=== PATIENT | female | born 1940 | race Caucasian/White ===

== ENCOUNTER → 2017-02-07 | Outpatient (CLI) | payer OTHER, MEDICARE ==
[~2017-02-07] MED LIST: ATOR10TA88 PO; CHOL100027 PO; CYAN500T PO; EFFSR75 PO; HYDRCRE28 EX; KETO0.024 OP; MEDR2.5T5 PO; METF500T5 PO; VENL150C PO; WARF10TA PO; WARF4TAB44 PO
--- NOTE | 2017-02-07 16:07 | MAMMOGRAPHY REPORT ---
BILATERAL DIGITAL SCREENING MAMMOGRAM WITH CAD: 02/07/2017 CLINICAL HISTORY: Routine screening. Patient has no complaints. TECHNIQUE: Bilateral CC and MLO views were obtained. A right MLO view was performed to include more tissue near the inframammary fold and a mole marker was placed overlying a known sebaceous cyst poi nted out by the patient. Current study was also evaluated with a Computer Aided Detection (CAD) sys tem. COMPARISON: Comparison is made to exams dated: 02/02/2016 mammogram, 01/10/2014 mammogram, 01/14/2015 m ammogram, 01/09/2013 mammogram, 01/13/2012 mammogram, and 12/31/2010 mammogram - [facility] enter. BREAST COMPOSITION: There are scattered areas of fibroglandular density in both breasts. FINDINGS: There are diffuse bilateral rodlike secretory calcifications and mild vascular calcificati ons in the breasts. No new suspicious mass, architectural distortion or cluster of microcalcificati ons is seen. A dense mass with circumscribed borders is partially visualized in the inferior far po sterior right breast on the repeat MLO view, which the patient pointed out as a sebaceous cyst. Thi s was previously documented with ultrasound and a punctum was identified extending to the skin surfa ce in January 2012, confirming dermal etiology. IMPRESSION: ACR BI-RADS CATEGORY 1: NEGATIVE There is no mammographic evidence of malignancy. A 1 year screening mammogram is recommended. The p atient will receive written notification of the results. Approximately 10% of breast cancers are not detected with mammography. A negative mammographic repor t should not delay biopsy if a clinically suggestive mass is present. Julia Marinelli M.D. ay/:02/07/2017 14:27:25 Head Still Operator: Shameka WEEKS(R)([place]), [facility] letter sent: Normal 1/2 BI-RADS Code: ACR BI-RADS Category 1: Negative
== END | disposition home or self-care (01) ==
LOC: C.MAMM 13:29
PROVIDERS: ATTEND Obstetrics & Gynecology
DX: Z12.31 Encounter for screening mammogram for malignant neoplasm of breast (principal)

== ENCOUNTER → 2017-02-21 | Outpatient (CLI) | payer OTHER, MEDICARE ==
[~2017-02-21] MED LIST changes: +ATOR10TA82 PO; -ATOR10TA88 PO; +DOXY-300 PO; +GABA-112 PO; +LSX20 PO; +OMEG10007 PO; +VENL75CA73 PO
[2017-02-21 17:33] LABS: BASO % 0.5 %; BASO ABS # 0.04 K/uL (0-0.2); COMPLETE YES; EOS % 1.9 %; HEMATOCRIT 41.5 % (37-47); IG% 0.1 %; LYMPH % 29.8 %; LYMPH ABS # 2.41 K/uL (1.2-3.4); MEAN CELL VOLUME 96.1 fL (80-100); MEAN CORPUSCULAR HEMOGLOBIN 31.7 pg (25-34); MEAN PLATELET VOLUME 11.3 fL (7.4-10.4); MONO % 6.3 %; NEUT % 61.4 %; PLATELET COUNT 253 K/uL (130-400); RED BLOOD COUNT 4.32 M/uL (4.2-5.4); WHITE BLOOD COUNT 8.09 K/uL (4.8-10.8)
[2017-02-21 18:15] LABS: ALT/SGPT 25 U/L (12-78); BLOOD UREA NITROGEN 13 mg/dl (7-18); BUN/CREATININE RATIO 15.2 (10-20); CALCIUM 9.1 mg/dl (8.5-10.1); CARBON DIOXIDE 28 mmol/L (21-32); CHLORIDE 108 mmol/L (98-107); CREATININE 0.88 mg/dl (0.60-1.20); GLUCOSE 114 mg/dl (70-99); POTASSIUM 4.6 mmol/L (3.5-5.1); SODIUM 143 mmol/L (136-145)
[2017-02-21 18:20] LABS: ALB/GLOB RATIO 0.9 (0.9-2); ALKALINE PHOSPHATASE 67 U/L (45-117); AST/SGOT 24 U/L (15-37); CHOLESTEROL 135 mg/dl (0-200); CHOLESTEROL/HDL RATIO 2.9; HDL CHOLESTEROL 47 mg/dl; LDL CHOLESTEROL CALCULATED 56 mg/dl; TRIGLYCERIDES 159 mg/dl (0-150); VERY LOW DENSITY LIPOPROT CALC 32 mg/dl
[2017-02-22 06:25] LABS: ESTIMATED AVERAGE GLUCOSE 148 mg/dl; HA1C FLAG Normal (Normal)
--- NOTE | 2017-02-28 11:58 | CODING QUERY MEDICAL NECESSITY ---
CQSUPPORTING DIAGNOSIS NEEDED A supporting diagnosis is required for the test/procedure performed on this patient in order for us to be reimbursed by the patient's insurance. Please provide a supporting diagnosis for the following test/procedure listed below next to the test name along with your signature. *If there is no additional diagnosis for this patient that would support the following test/procedure please document that below next to the test/procedure. Test(s)/Procedure(s) that require a supporting diagnosis: DOS 02/21/17 GLYCATED HEMOGLOBIN TEST Provider Signature: Date: Thank you Amisha Conklin Health Information Management Once completed, please kindly fax back to [phone] For questions please call [phone]
== END | disposition home or self-care (01) ==
LOC: C.LABBFT 11:13
PROVIDERS: ATTEND Internal Medicine
DX: Z51.81 Encounter for therapeutic drug level monitoring (principal); Z79.01 Long term (current) use of anticoagulants; E11.9 Type 2 diabetes mellitus without complications

== ENCOUNTER → 2017-08-25 | Outpatient (CLI) | payer OTHER, MEDICARE ==
[~2017-08-25] MED LIST changes: -ATOR10TA82 PO; +ATOR10TA88 PO; -DOXY-300 PO; -GABA-112 PO; -HYDRCRE28 EX; -LSX20 PO; -MEDR2.5T5 PO; -OMEG10007 PO; -VENL75CA73 PO
[2017-08-26 06:35] LABS: ESTIMATED AVERAGE GLUCOSE 134 mg/dl; HA1C FLAG Normal (Normal)
== END | disposition home or self-care (01) ==
LOC: C.LABBC 12:19
PROVIDERS: ATTEND Internal Medicine
DX: E78.5 Hyperlipidemia, unspecified (principal); E11.9 Type 2 diabetes mellitus without complications

== ENCOUNTER 2017-09-28 17:43 | Inpatient (IN) | payer OTHER, MEDICARE ==
[2017-09-28] VITALS (12 sets, daily range): BP systolic 108–165; BP diastolic 63–95; PULSE 68–71; TEMP 36.6; O2SAT 92–96; Ht 154.9 cm; Wt 123.6 kg
[~2017-09-28] VITALS: Ht 154.9 cm; Wt 123.6 kg
[~2017-09-28 17:43] MED LIST changes: +ATOR10TA82 PO; -ATOR10TA88 PO; +GABA-112 PO; +OMEG10007 PO
--- NOTE | 2017-09-28 18:02 | EMERGENCY ROOM VISIT NOTE ---
History Report prepared by Marilyn: Lanny Jones Under the Supervision of: Dr. Bret Moreno M.D. First contact with patient: 17:45 Chief Complaint: IRREGULAR HEARTBEAT Stated Complaint: CARDIAC, BRADYCARDIA History of Present Illness The patient is a 77 year old female who presents to the Emergency Room with complaints of an episode of an irregular heart beat beginning just prior to arrival. The patient reports not feeling well with a cough, feeling short of breath, and a low grade fever, and fatigue beginning 3 weeks ago. The patient was put on a Z-pac [address] Byers for bronchitis. Upon finishing her antibiotics, the patient still did not feel well so she went in to see her PCP again today. Today, the patient was at her PCP where she had her INR levels checked and was referred to the ED after obtaining an "abnormal" EKG. Presently , the patient feels tired, weak and short of breath. The patient does not follow up with a supervisor self service store and is on Coumadin, medroxyprogesterone, metformin. Source of History: patient Onset: just prior to arrival Position: other Quality: other (irregular heart beat) Timing: other (episode) Associated Symptoms: + fevers, + cough, + SOB, + fatigue, + weakness Review of Systems See HPI for pertinent positives & negatives. A total of 10 systems reviewed and were otherwise negative. Past Medical & Surgical Surgical Problems: (1) History of appendectomy (2) History of cholecystectomy Family History FH: cancer FHx: diabetes mellitus FHx: gallbladder disease FHx: heart disease FHx: hypertension FHx: kidney disease Kidney stones Social History Smoking Status: Never Smoker Alcohol Use: none Drug Use: none Marital Status: Housing Status: lives with family Current/Historical Medications Scheduled Atorvastatin (Lipitor), 10 MG PO QPM Gabapentin (Neurontin), 100 MG PO BID Metformin Hcl Er (Glucophage Er), 1,000 MG PO QPM Venlafaxine Hcl (Effexor Xr), 150 MG PO QPM Venlafaxine Hcl (Venlafaxine Extended Rel), 75 MG PO QPM Warfarin Sodium (Coumadin), 10 MG PO 5XWK Warfarin Sodium (Warfarin Sodium), 11 MG PO 2XWK Scheduled PRN Ketotifen Fumarate (Ophth) (Alaway), 1 DROP OP Q12 PRN for ALLERGIC REACTION Allergies Coded Allergies: No Known Allergies (Verified , 09/28/17) Physical Exam Vital Signs Date Time Temp Pulse Resp B/P (MAP) Pulse Ox O2 Delivery O2 Flow Rate FiO2 09/28/17 18:36 39 20 133/51 97 Nasal Cannula 2.0 09/28/17 18:21 32 20 153/49 96 Nasal Cannula 2.0 09/28/17 18:12 Nasal Cannula 2.0 09/28/17 18:10 98 Nasal Cannula 2.0 09/28/17 18:10 99 Nasal Cannula 2.0 09/28/17 18:08 45 09/28/17 17:58 37.2 30 20 136/53 98 Nasal Cannula 2.0 Physical Exam GENERAL: Patient is a healthy-appearing well-nourished female HEAD: Normocephalic atraumatic EYES: Ocular movements intact pupils equal and react to light OROPHARYNX mucous membranes are moist no exudates present no erythema or edema present NECK: Supple no nuchal rigidity CHEST: Good equal expansion LUNGS: Clear and equal to auscultation CARDIAC: Normal S1 and S2 ABDOMEN: Soft nontender no guarding BACK: No CVA tenderness EXTREMITIES: No pain upon palpation normal muscle strength in all groups no clubbing cyanosis or edema NEURO: Patient is following commands and answering questions appropriately. Alert and oriented x3 Cranial Nerves 2-12 grossly intact Medical Decision & Procedures ER Provider Diagnostic Interpretation: Radiology results as stated below per my review and radiologist interpretation: CHEST ONE VIEW PORTABLE FINDINGS: Image quality is degraded by patient body habitus. Atherosclerosis of aortic arch. Cardiac silhouette remains mildly enlarged. Lungs and pleural spaces clear. Degenerative changes of the thoracic spine. Upper abdomen normal. IMPRESSION: 1. Cardiomegaly. Otherwise no acute cardiopulmonary disease. Electronically signed by: Kulwinder Feng M.D. Laboratory Results Test 09/28/17 17:40 Immature Granulocyte % (Auto) 0.2 % White Blood Count 12.17 K/uL (4.8-10.8) Red Blood Count 4.19 M/uL (4.2-5.4) Hemoglobin 13.4 g/dL (12.0-16.0) Hematocrit 41.3 % (37-47) Mean Corpuscular Volume 98.6 fL (80-100) Mean Corpuscular Hemoglobin 32.0 pg (25-34) Mean Corpuscular Hemoglobin Concent 32.4 g/dl (32-36) Platelet Count 193 K/uL (130-400) Mean Platelet Volume 12.8 fL (7.4-10.4) Neutrophils (%) (Auto) 67.0 % Lymphocytes (%) (Auto) 22.8 % Monocytes (%) (Auto) 8.1 % Eosinophils (%) (Auto) 1.6 % Basophils (%) (Auto) 0.3 % Neutrophils # (Auto) 8.16 K/uL (1.4-6.5) Lymphocytes # (Auto) 2.77 K/uL (1.2-3.4) Monocytes # (Auto) 0.98 K/uL (0.11-0.59) Eosinophils # (Auto) 0.19 K/uL (0-0.5) Basophils # (Auto) 0.04 K/uL (0-0.2) Immature Granulocyte # (Auto) 0.03 K/uL (0.00-0.02) Activated Partial Thromboplast Time 34.2 SECONDS (21.0-31.0) Partial Thromboplastin Ratio 1.3 Total Bilirubin 0.5 mg/dl (0.2-1) Direct Bilirubin 0.1 mg/dl (0-0.2) Aspartate Amino Transf (AST/SGOT) 18 U/L (15-37) Alanine Aminotransferase (ALT/SGPT) 26 U/L (12-78) Alkaline Phosphatase 76 U/L (45-117) Total Creatine Kinase 98 U/L (26-192) Creatine Kinase MB 1.3 ng/ml (0.5-3.6) Creatine Kinase MB Ratio 1.3 (0-3.0) Troponin I < 0.015 ng/ml (0-0.045) Pro-B-Type Natriuretic Peptide 2941 pg/ml (0-1800) Total Protein 7.8 gm/dl (6.4-8.2) Albumin 3.4 gm/dl (3.4-5.0) Lipase 197 U/L (73-393) Lyme Disease IgG Antibody NEG (NEG) Labs reviewed by ED physician. Medications Administered Medications (Trade) Dose Ordered Sig/Daryl Route Start Time Stop Time Status Last Admin Dose Admin Midazolam HCl (Versed Inj) 2 mg STK-MED ONCE .ROUTE 09/28/17 18:23 09/28/17 18:24 DC 09/28/17 18:23 1 MG Fentanyl Citrate (Fentanyl Inj) 100 mcg STK-MED ONCE .ROUTE 09/28/17 18:23 09/28/17 18:24 DC 09/28/17 18:23 50 MCG ECG Indication: bradycardia Rate (beats per minute): 33 Rhythm: other (3rd degree block) Findings: no acute ischemic change ED Course 1744: Past medical records reviewed. The patient was evaluated in room A1. A complete history and physical examination was performed. 1826: I discussed the patient's case with Dr. Dhillon, he has agreed to evaluate the patient for further management and care. 1829: The patient is headed to the Assistant Terminal Manager. 1902: I discussed the patient's case with Dr. Galvez, he has agreed to evaluate the patient for further management and care. Medical Decision Differential diagnosis: Etiologies such as cardiac ischemia, aortic dissection, pulmonary embolism, pneumonia, pneumothorax, musculoskeletal, infections, pericarditis, myocarditis , esophageal rupture, gastrointestinal, as well as others were entertained. This is a 77-year-old female who presents emergency department bradycardic. The patient reports she has been feeling short of breath and generally weak for the past 3 weeks. She was recently placed on a Z-Geo and finished this yesterday. Upon arrival to emergency department the patient is in a complete heart block. I did discuss the case with both the vp & general counsel as well as the supervisor self service store on-call. The patient was taken to the Assistant Terminal Manager. Blood Pressure Screening Patient's blood pressure: Elevated blood pressure Blood pressure disposition: Referred to PCP (evaluated by hospitalist) Consults Time Called: 1826 Consulting Physician: Dr. Dhillon Returned Call: 1826 I discussed the patient's case with Dr. Dhillon, he has agreed to evaluate the patient for further management and care. Additional Consults: Time Called: 1902 Consulted Physician: Dr. Galvez Returned Call: 1902 Additional Comments: I discussed the patient's case with Dr. Galvez, he has agreed to evaluate the patient for further management and care. Impression Primary Impression: Complete heart block Critical Care I have personally spent greater than 35 minutes of critical care time in the direct management of this patient. This includes bedside care, interpretation of diagnostic studies, and testing, discussion with consultants, patient, and family members, and other required patient management activities. This 35 minutes is in excess of all separately billable procedures. Scribe Attestation The scribe's documentation has been prepared under my direction and personally reviewed by me in its entirety. I confirm that the note above accurately reflects all work, treatment, procedures, and medical decision making performed by me. Departure Information Dispostion Being Evaluated By Hospitalist Referrals Kulwinder Byers M.D. (PCP) Patient Instructions [facility]
[2017-09-28 18:19] LABS: BASO % 0.3 %; BASO ABS # 0.04 K/uL (0-0.2); COMPLETE YES; EOS % 1.6 %; HEMATOCRIT 41.3 % (37-47); IG% 0.2 %; LYMPH % 22.8 %; LYMPH ABS # 2.77 K/uL (1.2-3.4); MEAN CELL VOLUME 98.6 fL (80-100); MEAN CORPUSCULAR HGB CONC 32.4 g/dl (32-36); MEAN PLATELET VOLUME 12.8 fL (7.4-10.4); MONO % 8.1 %; PLATELET COUNT 193 K/uL (130-400); RED BLOOD COUNT 4.19 M/uL (4.2-5.4); WHITE BLOOD COUNT 12.17 K/uL (4.8-10.8)
[2017-09-28] MEDS ORDERED: FENTANYL CITRATE INJ 50 MCG/1 ML 2 ML VIAL ONE (18:23)
[2017-09-28] MEDS ORDERED: MIDAZOLAM HCL 1 MG/ML 2ML VIAL ONE (18:23)
[2017-09-28 18:24] LABS: INR 2.2 (0.9-1.1); PARTIAL THROMBOPLASTIN RATIO 1.3; PROTHROMBIN TIME (PATIENT) 24.1 SECONDS (9.0-12.0)
[2017-09-28] MEDS ORDERED: VENL75CA73 PO ×2 (18:25)
[2017-09-28 18:34] LABS: ALT/SGPT 26 U/L (12-78); BLOOD UREA NITROGEN 23 mg/dl (7-18); BUN/CREATININE RATIO 20.6 (10-20); CALCIUM 9.4 mg/dl (8.5-10.1); CARBON DIOXIDE 26 mmol/L (21-32); CHLORIDE 105 mmol/L (98-107); GLUCOSE 108 mg/dl (70-99); POTASSIUM 4.4 mmol/L (3.5-5.1); SODIUM 140 mmol/L (136-145)
--- NOTE | 2017-09-28 18:37 | DIAGNOSTIC IMAGING REPORT ---
CHEST ONE VIEW PORTABLE CLINICAL HISTORY: 77 years-old Female presenting with CHEST PAIN. TECHNIQUE: Portable upright AP view of the chest was obtained. COMPARISON: 12/29/2015. FINDINGS: Image quality is degraded by patient body habitus. Atherosclerosis of aortic arch. Cardiac silhouette remains mildly enlarged. Lungs and pleural spaces clear. Degenerative changes of the thoracic spine. Upper abdomen normal. IMPRESSION: 1. Cardiomegaly. Otherwise no acute cardiopulmonary disease. Electronically signed by: Kulwinder Feng M.D. 09/28/2017 6:36 PM Dictated Date/Time: 09/28/2017 6:35 PM
[2017-09-28 18:39] LABS: ALKALINE PHOSPHATASE 76 U/L (45-117); AST/SGOT 18 U/L (15-37)
[2017-09-28 18:50] LABS: CKMB/CK RATIO 1.3 (0-3.0)
[2017-09-28] MEDS ORDERED: MoRPHine SULFATE 2 MG/ML CARP IV PRN (19:00)
[2017-09-28] MEDS ORDERED: KETOTIFEN FUMARATE (ZADITOR) 0.025% 5 ML BTL OP PRN (19:00)
[2017-09-28] MEDS ORDERED: WARFARIN SOD 1 MG TAB PO SCH (19:00)
[2017-09-28] MEDS ORDERED: LORAZEPAM 2 MG/ML 1 ML VIAL IV PRN (19:00)
[2017-09-28] MEDS ORDERED: ACETAMINOPHEN 325 MG TAB PO PRN (19:00)
[2017-09-28] MEDS ORDERED: NITROGLYCERIN 0.4 MG SL PER TAB CHARGE SL PRN (19:00)
[2017-09-28] MEDS ORDERED: LORAZEPAM 0.5 MG TAB PO PRN (19:00)
--- NOTE | 2017-09-28 19:28 | Procedure Note ---
Pre-Mod Sedation Assessment General Date of Moderate Sedation: Sep 28, 2017. Vital Signs: Vital Signs Past 12 Hours Date Time Temp Pulse Resp B/P (MAP) Pulse Ox O2 Delivery O2 Flow Rate FiO2 09/28/17 19:02 34 20 133/68 96 09/28/17 18:36 39 20 133/51 97 Nasal Cannula 2.0 09/28/17 18:21 32 20 153/49 96 Nasal Cannula 2.0 09/28/17 18:12 Nasal Cannula 2.0 09/28/17 18:10 98 Nasal Cannula 2.0 09/28/17 18:10 99 Nasal Cannula 2.0 09/28/17 18:08 45 09/28/17 17:58 37.2 30 20 136/53 98 Nasal Cannula 2.0 Review Cardiovascular: regular rate, rhythm, no edema Abdomen: normal bowel sounds, non tender Lungs: chest non-tender, lungs clear Pre-Sedation Airway Assessment Oral Cavity: WNL Able to Visualize Vocal Cords: No Short Thick Neck: No Hx of Sleep Apnea: No Smoking Status: Never Smoker Mallampati Classification: Class III ASA Classification: Class III Procedure Planning Contraindications-for Mod Sed: None Yes Notes The planned sedation has been discussed with the patient and consent obtained. I have identified the patient, determined the appropriateness of sedation and have assessed the patient immediately prior to the procedure. All medicine(s) and interventions are by my order.
--- NOTE | 2017-09-28 19:28 | Procedure Note ---
Post-Mod Sedation Assessment General Date of Moderate Sedation Sep 28, 2017. Vital Signs: Vital Signs Past 12 Hours Date Time Temp Pulse Resp B/P (MAP) Pulse Ox O2 Delivery O2 Flow Rate FiO2 09/28/17 19:02 34 20 133/68 96 09/28/17 18:36 39 20 133/51 97 Nasal Cannula 2.0 09/28/17 18:21 32 20 153/49 96 Nasal Cannula 2.0 09/28/17 18:12 Nasal Cannula 2.0 09/28/17 18:10 98 Nasal Cannula 2.0 09/28/17 18:10 99 Nasal Cannula 2.0 09/28/17 18:08 45 09/28/17 17:58 37.2 30 20 136/53 98 Nasal Cannula 2.0 Review - Discharge Criteria Vital Signs Stable: Yes Alert/Oriented/Conversant: Yes Returned to Baseline Mental St: Yes Nausea Absent/Minimal: Yes Pain/Discomfort/Absent/Minimal: Yes Normal/Baseline Respirations: Yes Active Bleeding?: N/A Pt Received D/C Instructions: N/A Prescriptions Given: None Specific Proced. D/C Criteria Distal Pulses Present (Cardiac: N/A Groin site assessed-Card Cath: N/A Voided Prior To Discharge: N/A Discharged Patients Adult Escort/Transportation: Yes
--- NOTE | 2017-09-28 19:34 | History and Physical ---
History & Physical Date & Time of Service: Sep 28, 2017 at 19:28 Chief Complaint: Cardiac, Bradycardia Primary Care Physician: Kulwinder Byers M.D. History of Present Illness Called in this patient has she's under to the cath lab radiological technologist for temporary cardiac pacemaker. The patient found to be in complete heart block with a heart rate of 30. Reportedly the patient in [address] Byers was given a Z-Geo for symptoms of an upper respiratory infection and fatigue upon repeat evaluation an EKG was performed in the office which showed a abnormality of heart block she sent to the emergency department. The patient does not describe any chest pain however she is does have exertional dyspnea I spoke with her rug setter [place] personally, Dr. Pena, and he states that earlier this year she did pass a stress test. The patient is on chronic anticoagulation for pulmonary embolism and currently her INR is 2.2. Otherwise the patient just feels fatigued and dyspneic she has not had any orthopnea or paroxysmal nocturnal dyspnea but is limited with her exercise due to shortness of breath which may be in part due to her morbid obesity with a BMI of 54.1. Past Medical/Surgical History Surgical Problems: (1) History of appendectomy Status: Resolved (2) History of cholecystectomy Status: Resolved Family History FH: cancer FHx: diabetes mellitus FHx: gallbladder disease FHx: heart disease FHx: hypertension FHx: kidney disease Kidney stones Social History Smoking Status: Never Smoker Drug Use: none Marital Status: Housing status: lives with family Immunizations History of Influenza Vaccine: N/A History of Tetanus Vaccine?: Yes History of Pneumococcal: Yes History of Hepatitis B Vaccine: No Multi-Drug Resistant Organisms History of MDRO: No Allergies Coded Allergies: No Known Allergies (Verified , 09/28/17) Home Medications Scheduled Atorvastatin (Lipitor), 10 MG PO QPM Gabapentin (Neurontin), 100 MG PO BID Metformin Hcl Er (Glucophage Er), 1,000 MG PO QPM Venlafaxine Hcl (Effexor Xr), 150 MG PO QPM Venlafaxine Hcl (Venlafaxine Extended Rel), 75 MG PO QPM Warfarin Sodium (Coumadin), 10 MG PO 5XWK Warfarin Sodium (Warfarin Sodium), 11 MG PO 2XWK Scheduled PRN Ketotifen Fumarate (Ophth) (Alaway), 1 DROP OP Q12 PRN for ALLERGIC REACTION Review of Systems ROS: Morbidly obese No double vision blurry vision No problems with speech or swallowing Subjective palpitations, but no chest pain or pressure No Wheezing or but marked dyspnea on exertion where she can only walk With upper driveway from her mailbox of stopping the catch her breath No abdominal pain nausea vomiting diarrhea changes in appetite or weight No burning urine urine frequency or changes in color No focal joint pain or muscle pain she however states she's had some swelling more in her left foot and right No skin rashes or oral lesions No unusual bruising or bleeding No focused back pain or numbness or loss of strength No changes in memory or confusion Physical Exam Vital Signs Date Time Temp Pulse Resp B/P (MAP) Pulse Ox O2 Delivery O2 Flow Rate FiO2 09/28/17 19:02 34 20 133/68 96 09/28/17 18:36 39 20 133/51 97 Nasal Cannula 2.0 09/28/17 18:21 32 20 153/49 96 Nasal Cannula 2.0 09/28/17 18:12 Nasal Cannula 2.0 09/28/17 18:10 98 Nasal Cannula 2.0 09/28/17 18:10 99 Nasal Cannula 2.0 09/28/17 18:08 45 09/28/17 17:58 37.2 30 20 136/53 98 Nasal Cannula 2.0 General Appearance: + mild distress, + obese Head: normocephalic, atraumatic Eyes: PERRL, EOMI Neck: supple, no JVD Respiratory/Chest: no respiratory distress, + decreased breath sounds (bases) Cardiovascular: + bradycardia, + systolic murmur Abdomen/GI: normal bowel sounds, non tender, soft Extremities/Musculoskelatal: normal capillary refill, + pedal edema, + swelling Neurologic/Psych: alert, oriented x 3 Diagnostics Laboratory Results Results Past 24 Hours Test 09/28/17 17:40 Range/Units White Blood Count 12.17 4.8-10.8 K/uL Red Blood Count 4.19 4.2-5.4 M/uL Hemoglobin 13.4 12.0-16.0 g/dL Hematocrit 41.3 37-47 % Mean Corpuscular Volume 98.6 80-100 fL Mean Corpuscular Hemoglobin 32.0 25-34 pg Mean Corpuscular Hemoglobin Concent 32.4 32-36 g/dl Platelet Count 193 130-400 K/uL Mean Platelet Volume 12.8 7.4-10.4 fL Neutrophils (%) (Auto) 67.0 % Lymphocytes (%) (Auto) 22.8 % Monocytes (%) (Auto) 8.1 % Eosinophils (%) (Auto) 1.6 % Basophils (%) (Auto) 0.3 % Neutrophils # (Auto) 8.16 1.4-6.5 K/uL Lymphocytes # (Auto) 2.77 1.2-3.4 K/uL Monocytes # (Auto) 0.98 0.11-0.59 K/uL Eosinophils # (Auto) 0.19 0-0.5 K/uL Basophils # (Auto) 0.04 0-0.2 K/uL RDW Standard Deviation 50.1 36.4-46.3 fL RDW Coefficient of Variation 14.0 11.5-14.5 % Immature Granulocyte % (Auto) 0.2 % Immature Granulocyte # (Auto) 0.03 0.00-0.02 K/uL Prothrombin Time 24.1 9.0-12.0 SECONDS Prothromb Time International Ratio 2.2 0.9-1.1 Activated Partial Thromboplast Time 34.2 21.0-31.0 SECONDS Partial Thromboplastin Ratio 1.3 Sodium Level 140 136-145 mmol/L Potassium Level 4.4 3.5-5.1 mmol/L Chloride Level 105 98-107 mmol/L Carbon Dioxide Level 26 21-32 mmol/L Anion Gap 9.0 3-11 mmol/L Blood Urea Nitrogen 23 7-18 mg/dl Creatinine 1.10 0.60-1.20 mg/dl Est Creatinine Clear Calc Drug Dose 54.5 ml/min Estimated GFR () 56.1 Estimated GFR (Non- 48.4 BUN/Creatinine Ratio 20.6 10-20 Random Glucose 108 70-99 mg/dl Calcium Level 9.4 8.5-10.1 mg/dl Total Bilirubin 0.5 0.2-1 mg/dl Direct Bilirubin 0.1 0-0.2 mg/dl Aspartate Amino Transf (AST/SGOT) 18 15-37 U/L Alanine Aminotransferase (ALT/SGPT) 26 12-78 U/L Alkaline Phosphatase 76 45-117 U/L Total Creatine Kinase 98 26-192 U/L Creatine Kinase MB 1.3 0.5-3.6 ng/ml Creatine Kinase MB Ratio 1.3 0-3.0 Troponin I < 0.015 0-0.045 ng/ml Pro-B-Type Natriuretic Peptide 2941 0-1800 pg/ml Total Protein 7.8 6.4-8.2 gm/dl Albumin 3.4 3.4-5.0 gm/dl Lipase 197 73-393 U/L other (mild vascular congestion) other (complete heart block) Impression Assessment and Plan 77-year-old female here with complete heart block fatigue x-ray changes of mild vascular congestion Patient taken urgently to cardiac catheterization lab for temporary pacemaker, there appears to be no medications that are directly attributed to the bradycardia or heart block, there is pending Lyme disease Ehrlichiae testing Thrombophilia patient's INR is 2.2 Coumadin will be held in consideration for permanent pacemaker placement Metformin will be held insulin sliding scale be used especially if there is any need for diabetes and imaging testing testing DVT prevention will be Coumadin till its reversed and then may consider having a bridging agent because of her thrombophilia as per discussion with her personal rug setter [place] Dr. Pena VTE Prophylaxis VTE Risk Assessment Done? Y/N: Yes Risk Level: Moderate Given or contraindicated: Warfarin (Coumadin)
--- NOTE | 2017-09-28 19:35 | Procedure Note ---
Procedure Note Procedure Date Sep 28, 2017. Procedure Description Procedure Name: Transvenous temporary pacemaker insertion. Procedure time out: patient ID confirmed, correct procedure Consent obtained: written Time of procedure: 19:15 Indications: therapeutic Contraindications: none Description: Indication: Symptomatic complete heart block with HR in 20-30s. Patient on chronic coumadin for VTE, INR 2.2. Procedure: 6Fr sheath placed via ultrasound guidance to right CFV Temporary pacing catheter navigated to RV under fluoroscopic guidance. Appropriate pacing noted down to output < 1 mA. Sheath sutured in place. Knee immobilizer placed. Final settings: VVI, Rate 70 bpm, Output 10 mA Summary: Successful temporary transvenous pacemaker placement. Complications: none Patient tolerated procedure: well Post-procedure vital signs: reviewed and stable
[2017-09-28 19:36] LABS: LYME DISEASE AB IGG NEG (NEG)
[2017-09-28 19:38] LABS: LYME DISEASE AB IGM POS (NEG)
--- NOTE | 2017-09-28 19:54 | Cardiology Consultation ---
Cardiology Consultation Date of Service Sep 28, 2017. Cardiology Consultation CARDIOLOGY CONSULTATION DATE OF CONSULTATION: September 28, 2017 REFERRING PHYSICIAN: Gautam Priest MD REASON FOR CONSULT: High-grade heart block/bradycardia HISTORY OF PRESENT ILLNESS: 77-year-old woman with DM (oral agents), prior pulmonary embolism (chronic warfarin), and morbid obesity who presents to the ER with fatigue, generalized weakness, and dyspnea on exertion. Evaluation included an ECG which showed high -grade heart block with ventricular rate of 33 ppm. She denies any chest pain, dyspnea at rest, subjective palpitations, lightheadedness, presyncope, or syncope. At the time of my evaluation, she was normotensive and asymptomatic at rest. MEDICATIONS: Atorvastatin Gabapentin Metformin Medroxyprogesterone Warfarin (10 mg 5 times a week/11 mg twice a week) Venlafaxine Tylenol Arthritis Vitamin B12 tablets ALLERGIES:No known drug allergies. PAST MEDICAL HISTORY: Benign positional vertigo 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 Dyslipidemia Depression Borderline hypertension Nephrolithiasis Obstructive sleep apnea, uses CPAP Obesity PAST SURGICAL HISTORY: Appendectomy Cholecystectomy Carpal tunnel release D and C Knee replacement Tonsillectomy Tubal ligation SOCIAL HISTORY: Never smoked. No drugs. . FAMILY HISTORY: Notable for cancer, diabetes, gallbladder disease, heart disease, hypertension, and kidney disease. REVIEW OF SYSTEMS: Recent URI type symptoms, placed on azithromycin roughly a week ago. She had been feeling fatigued for the past 3 weeks. PHYSICAL EXAMINATION: No distress. Morbidly obese. Vitals: Temperature 37.2. BP 136/53, pulse 33 and generally regular with ectopy, respirations 20 but unlabored. Skin: No unusual lesions or ecchymosis. HEENT: Unremarkable. Neck: Jugular venous pulse mildly elevated, transmitted murmur heard in carotids. Lungs: Decreased excursion (related to body habitus), reduced breath sounds, no obvious wheezing or crackles. Cardiac: Generally regular rhythm with ectopy, 3/6 right upper sternal border murmur radiating to precordial and carotids, and axilla. Reduced but audible aortic closure sound. No diastolic murmur or obvious gallop. Abdomen: Benign. Extremities: Nontender with 1+ edema, good capillary refill, intact peripheral pulses. Neurologic: Normal affect and pleasant conversation, nonfocal DATA: White count 12.17, hemoglobin 13.4, normal platelet count. Normal electrolytes with potassium of 4.4. BUN 23, creatinine 1.1, glucose 108. INR 2.2. Troponin negative. ProBNP 2941. Chest x-ray unremarkable. ECG showed sinus rhythm with incomplete right bundle branch block, corrected QT in the 500 millisecond range, no ischemic changes, av dissociation. Most recent prior ECGs showed sinus rhythm with left bundle-branch block. A stress echo in December showed no ischemia at just under 2 minutes workload greater than 100 % heart rate. Normal baseline echo with normal systolic function, mild LVH with no wall motion abnormalities, probable aortic sclerosis with mild mitral regurgitation. IMPRESSION: 1. High-grade heart block/bradycardia, temporary pacemaker indicated. 2. History of pulmonary embolism (on chronic warfarin). 3. Morbid obesity. 4. 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, on oral agent. 5. Otherwise generally healthy 77-year-old woman. DISCUSSION: 77-year-old woman with no known cardiac disease (stress study earlier this year was low work load/high heart rate with no ischemia) who over time has been noted to have sinus rhythm with a left bundle branch block, today has profound bradycardia with AV dissociation and incomplete right bundle branch block. The relatively non-widened QRS may be due to a non-ventricular escape rhythm or high -grade heart block which is not complete. If her rhythm is not an escape rhythm but is high-grade heart block, it could progress abruptly to complete heart block with potentially inadequate escape rhythm. Thus, temporary followed by permanent pacemaker is indicated. Also, her apparent alternating bundle branch block could be an indication for permanent pacemaker as well. Since she is anticoagulated, Dr. Santoyo indicated a groin access would be pursued. Warfarin should be held afterwards to allow further warfarin washout prior to permanent pacemaker placement. If INR does not drop significantly by tomorrow, could consider small dose of vitamin K. We did discuss the risks/benefits of temporary followed by permanent pacemaker, including the risk of bleeding complications. She agrees with the plan to proceed with temporary transvenous pacemaker insertion. Please consult Dr. Burnett or Dr. Bethea to evaluate for permanent pacemaker. At the time of my evaluation she was hemodynamically stable and asymptomatic. ADDENDUM: Lyme IgM antibody positive (IgG negative). She does not recall any tick bites, joint redness or swelling, or erythema. She has had fevers and myalgias but a cough began simultaneously. Patient is doing well status post transcutaneous venous pacemaker via right femoral vein, current rhythm is paced at 90 bpm and she is normotensive and asymptomatic. Presence of Lyme antibody suggests possibility of temporary heart block which could potentially be managed with antibiotics and temporary pacer alone, however as noted she has apparent alternating bundle branch block and may still be a candidate for permanent pacemaker (defer to electrophysiology).
--- NOTE | 2017-09-28 20:12 | Critical Care Consultation ---
Critical Care Consultation Date of Consultation: Sep 28, 2017. Attending Physician: Gautam Priest M.D. Reason for Consultation: Complete heart block requiring temporary cardiac pacemaker and close monitoring in the ICU. History of Present Illness Patient is a 77-year-old female who was enjoying her typical state of good health up until 2 weeks ago. She reports that she developed symptoms of a cough and upper respiratory congestion. She felt poorly for approximately a week at which time she was seen at her primary care provider's office and provided a prescription for azithromycin for presumed bronchitis. She took the antibiotic throughout the entire week, but reports that her symptoms did not improve. She did have some productive sputum which she described as green last week, but reports that that has since resolved. Last week, she reports developing exertional shortness of breath. She reports that this has continued to worsen. Today, for example, she was only able to make it half way back up her driveway after walking to the mailbox. She had to stop and catch her breath. Last week, she did describe some transient episodes of chest heaviness , but reports that that has since resolved and she does not experience that for approximately one week. At this point, the patient mainly complains of exertional shortness of breath. She was seen at her primary care provider's office today and an EKG was performed which demonstrated complete heart block. She was sent directly to the emergency department where she was evaluated and underwent emergent placement of a temporary pacemaker from a RIGHT groin approach. On presentation to the ICU, the patient is awake and alert. She denies any pain at this time. She reports no shortness of breath. She is currently paced in the 60s. Her blood pressure is stable. Patient's laboratory assessment was otherwise unremarkable, however, she did have positive IgM Lyme serology. Patient reports feeling fine at this time and denies any complaints of headaches , dizziness, lightheadedness, chest pain, palpitations, hemoptysis, nausea, vomiting, abdominal pain, hematochezia, melena, hematuria, or dysuria. Patient has a past medical history consistent with dyslipidemia, diabetes, pulmonary embolism on anticoagulation with Coumadin, and obstructive sleep apnea. She does take Coumadin daily. Her INR last week was found to be elevated at 3.2. Today, in the emergency department it was found to be 2.2. She utilizes a CPAP at night for her ROS a period she does use gabapentin for postherpetic neuralgia. Patient lives at home. She denies any history of smoking or alcohol use. Past Medical/Surgical History Medical Problems: 1. Acute sinusitis (J01.90) 2. Anticoagulant long-term use (Z79.01) 3. Benign paroxysmal positional vertigo (H81.10) 4. BMI 50.0-59.9, adult (Z68.43) 5. Borderline blood pressure (R03.0) 6. Cataract (H26.9) 7. Contact dermatitis due to plant (L25.5) 8. Depression (F32.9) 9. 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 (E11.9) 10. Dizziness (R42) 11. Dyslipidemia (E78.5) 12. Obstructive sleep apnea (G47.33) 13. Post herpetic neuralgia (B02.29) 14. Postmenopausal bleeding (N95.0) 15. Urinary symptom or sign (R39.9) 16. Complete Heart Block (1) Complete heart block Surgical Problems: 1. History of Appendectomy 2. History of Cholecystectomy 3. History of Dilation And Curettage 4. History of Endometrial Biopsy By Suction 5. History of Knee Replacement 6. History of Neuroplasty Decompression Median Nerve At Carpal Tunnel 7. History of Oral Surgery Tooth Extraction 8. History of Tonsillectomy 9. History of Tubal Ligation Family History FH: cancer FHx: diabetes mellitus FHx: gallbladder disease FHx: heart disease FHx: hypertension FHx: kidney disease Kidney stones Social History Smoking Status: Never Smoker Smokeless Tobacco Use: Yes Alcohol Use: none Drug Use: none Marital Status: Housing Status: lives with family Allergies Coded Allergies: No Known Allergies (Verified , 09/28/17) Home Medications Scheduled Atorvastatin (Lipitor), 10 MG PO QPM Gabapentin (Neurontin), 100 MG PO BID Metformin Hcl Er (Glucophage Er), 1,000 MG PO QPM Venlafaxine Hcl (Effexor Xr), 150 MG PO QPM Venlafaxine Hcl (Venlafaxine Extended Rel), 75 MG PO QPM Warfarin Sodium (Coumadin), 10 MG PO 5XWK Warfarin Sodium (Warfarin Sodium), 11 MG PO 2XWK Scheduled PRN Ketotifen Fumarate (Ophth) ([place]), 1 DROP OP Q12 PRN for ALLERGIC REACTION Current Inpatient Medications Current Inpatient Medications Medications (Trade) Dose Ordered Sig/Daryl Route Start Time Stop Time Status Last Admin Dose Admin Acetaminophen (Tylenol Tab) 650 mg Q4H PRN PO 09/28/17 19:00 10/28/17 18:59 Lorazepam (Ativan Tab) 0.5 mg Q4H PRN PO 09/28/17 19:00 10/28/17 18:59 UNV Lorazepam (Ativan Inj) 0.5 mg Q4H PRN IV 09/28/17 19:00 10/28/17 18:59 UNV Nitroglycerin (Nitrostat Tab) 0.4 mg UD PRN SL 09/28/17 19:00 10/28/17 18:59 Ranitidine HCl (zANTac TAB) 150 mg BID PO 09/28/17 21:00 10/28/17 20:59 Morphine Sulfate (MoRPHine SULFATE INJ) 2 mg Q2H PRN IV 09/28/17 19:00 10/12/17 18:59 Atorvastatin Calcium (Lipitor Tab) 10 mg QPM PO 09/28/17 21:00 10/28/17 20:59 Gabapentin (Neurontin Cap) 100 mg BID PO 09/28/17 21:00 10/28/17 20:59 Venlafaxine HCl (effeXOR EXTENDED REL CAP) 150 mg QPM PO 09/28/17 21:00 10/28/17 20:59 Venlafaxine HCl (effeXOR EXTENDED REL CAP) 75 mg QPM PO 09/28/17 21:00 10/28/17 20:59 Warfarin Sodium (Coumadin Tab) 10 mg MoTuThFrSa@1600 PO 09/29/17 16:00 10/29/17 15:59 Ketotifen Fumarate (Zaditor 0.025% Op Soln) 1 drops Q12 PRN OP 09/28/17 19:00 10/28/17 18:59 Insulin Aspart (novoLOG ASPART) SLIDING SCALE PARAMETER ACHS SC 09/28/17 21:00 10/28/17 20:59 UNV Review of Systems A complete 10-point Review of Systems was discussed with the patient, with pertinent positives and negatives listed in the History of Present Illness. All remaining Review of Systems questions can be considered negative unless otherwise specified. Physical Exam Date Time Temp Pulse Resp B/P (MAP) Pulse Ox O2 Delivery O2 Flow Rate FiO2 11/15/17 19:34 70 18 155/90 (111) 95 Room Air 09/28/17 19:25 70 18 140/90 (107) 95 Room Air 09/28/17 19:02 34 20 133/68 96 09/28/17 18:36 39 20 133/51 97 Nasal Cannula 2.0 09/28/17 18:21 32 20 153/49 96 Nasal Cannula 2.0 09/28/17 18:12 Nasal Cannula 2.0 09/28/17 18:10 98 Nasal Cannula 2.0 09/28/17 18:10 99 Nasal Cannula 2.0 09/28/17 18:08 45 09/28/17 17:58 37.2 30 20 136/53 98 Nasal Cannula 2.0 VITAL SIGNS - Vital signs and nursing notes were reviewed. GENERAL - 77-year-old female appearing her stated age who is in no acute distress. Communicates well with provider and answers questions appropriately. SKIN - Temporary pacemaker with sheath noted in place to the RIGHT groin. HEAD - NC/AT. EYES - PERRL with EOMI bilaterally. Sclera anicteric. Palpebral conjunctiva pink and moist with no injection noted. EARS - No deformities of external structures noted on gross examination bilaterally. NOSE - Midline and without cyanosis. No epistaxis or purulent drainage noted. Septum midline without deviation or septal hematoma noted. MOUTH/OROPHARYNX - Without perioral cyanosis. Buccal mucosa pink and moist and without leukoplakia. Tongue midline with equal elevation of palate bilaterally. NECK - Neck with FROM. Supple to palpation. LUNGS - Chest wall symmetric without accessory muscle use, intercostals retractions, or central cyanosis. Normal vesicular breath sounds CTA B/L. No wheezes, rales, or rhonchi appreciated. CARDIAC - RRR with S1/S2. No murmur, rubs, or gallops appreciated. No reproducible tenderness to palpation appreciated over the anterior chest wall. ABDOMEN - Abdominal contour obese and without pulsations or visible masses. BS normoactive all four quadrants. No tenderness, palpable masses, hepatosplenomegaly, or ascites noted. EXTREMITIES - No clubbing or peripheral cyanosis. Mild pretibial edema present in the bilateral lower extremities. +3/5 radial and dorsalis pedis pulses palpated throughout. +5/5 strength noted in UE/LE bilaterally. NEUROLOGIC - Cranial nerves II through XII grossly intact. Sensory intact to light touch throughout. PSYCH - A&Ox3 and cooperates fully with examiner. Pt is very pleasant and interacts well with examiner. Laboratory Results Last 24 Hours Test 09/28/17 17:40 White Blood Count 12.17 K/uL Red Blood Count 4.19 M/uL Hemoglobin 13.4 g/dL Hematocrit 41.3 % Mean Corpuscular Volume 98.6 fL Mean Corpuscular Hemoglobin 32.0 pg Mean Corpuscular Hemoglobin Concent 32.4 g/dl Platelet Count 193 K/uL Mean Platelet Volume 12.8 fL Neutrophils (%) (Auto) 67.0 % Lymphocytes (%) (Auto) 22.8 % Monocytes (%) (Auto) 8.1 % Eosinophils (%) (Auto) 1.6 % Basophils (%) (Auto) 0.3 % Neutrophils # (Auto) 8.16 K/uL Lymphocytes # (Auto) 2.77 K/uL Monocytes # (Auto) 0.98 K/uL Eosinophils # (Auto) 0.19 K/uL Basophils # (Auto) 0.04 K/uL RDW Standard Deviation 50.1 fL RDW Coefficient of Variation 14.0 % Immature Granulocyte % (Auto) 0.2 % Immature Granulocyte # (Auto) 0.03 K/uL Prothrombin Time 24.1 SECONDS Prothromb Time International Ratio 2.2 Activated Partial Thromboplast Time 34.2 SECONDS Partial Thromboplastin Ratio 1.3 Sodium Level 140 mmol/L Potassium Level 4.4 mmol/L Chloride Level 105 mmol/L Carbon Dioxide Level 26 mmol/L Anion Gap 9.0 mmol/L Blood Urea Nitrogen 23 mg/dl Creatinine 1.10 mg/dl Est Creatinine Clear Calc Drug Dose 54.5 ml/min Estimated GFR () 56.1 Estimated GFR (Non- 48.4 BUN/Creatinine Ratio 20.6 Random Glucose 108 mg/dl Calcium Level 9.4 mg/dl Total Bilirubin 0.5 mg/dl Direct Bilirubin 0.1 mg/dl Aspartate Amino Transf (AST/SGOT) 18 U/L Alanine Aminotransferase (ALT/SGPT) 26 U/L Alkaline Phosphatase 76 U/L Total Creatine Kinase 98 U/L Creatine Kinase MB 1.3 ng/ml Creatine Kinase MB Ratio 1.3 Troponin I < 0.015 ng/ml Pro-B-Type Natriuretic Peptide 2941 pg/ml Total Protein 7.8 gm/dl Albumin 3.4 gm/dl Lipase 197 U/L Lyme Disease IgG Antibody NEG Lyme Disease IgM Antibody POS Diagnostic Results Radiological imaging and reports were reviewed by myself. Radiologist's Interpretation as follows: CHEST ONE VIEW PORTABLE CLINICAL HISTORY: 77 years-old Female presenting with CHEST PAIN. TECHNIQUE: Portable upright AP view of the chest was obtained. COMPARISON: 12/29/2015. FINDINGS: Image quality is degraded by patient body habitus. Atherosclerosis of aortic arch. Cardiac silhouette remains mildly enlarged. Lungs and pleural spaces clear. Degenerative changes of the thoracic spine. Upper abdomen normal. IMPRESSION: 1. Cardiomegaly. Otherwise no acute cardiopulmonary disease. Assessment & Plan (1) Encounter for management of temporary pacemaker (2) Dyspnea on exertion (3) Positive Lyme disease serology (4) Complete heart block Reason Critically Ill: 77-year-old female with progressively worsening dyspnea on exertion found to have complete heart block with a heart rate in the 20s to 30s requiring placement of temporary pacemaker. 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 Neuro - * CAM ICU: NEGATIVE * Post-Herpetic Neuralgia - continue gabapentin * Depression - Effexor * Morphine for any breakthrough pain. Cardiac - * Complete Heart Block with a heart rate in the 20s-30s requiring transvenous temporary pacemaker placement: * Currently paced in the 60s - adjustments per cardiology. * History of known LBBB and new RBBB of concern in the setting - continue pacing. * Positive Lyme IgM serology - ??Carditis producing block. Medhat Blot pending. Will add 2g IV Rocephin daily for treatment. * Appreciate cardiology guidance. * History of Dyslipidemia - continue Lipitor. * Monitor on Telemetry. * EKGs with CP. Respiratory - * History of DARRELL: * Continue CPAP w/ home settings. * History of Bilateral Pulmonary Emboli: * Currently on lifetime anticoagulation. GI - * Prophylaxis - Zantac. * DM Diet. RENAL/LYTES - * Monitor Electrolytes Daily - replace appropriately. * No IVFs at this time - tolerating PO. - * Pickett Catheter in place. * Strict I&Os. ENDO - * History of DM: * Continue Metformin. * BSGs per protocol - ISS per protocol if BSGs elevated. * No known h/o Tyroid Disease - will check TSH/T3/T4 as ??contributing factor to bradycardia/block. HEME - * Stable H&H - monitor daily. * Anticoagulated with Coumadin 2/2 h/o PEs: * INR 2.2 today. * Will watch this as concerns for need to place permanent pacer. ID - * Positive Lyme IgM Serology - ??Contributing to heart block/carditis: * Patient has complained of vague myopathies and generalized malaise just prior to the onset of the SOB. * Medhat Blot pending. * Will treat with 2g IV Rocephin daily. * Appreciate ID consult. * ??Need for PICC/Midline for continued IV Abx - appreciate ID input. LINES/IV ACCESS - * PIVs intact. * RIGHT Femoral Temporary Pacer Wire intact. * Pickett Catheter in place. DVT PROPHYLAXIS - * Warfarin w/ INR of 2.2 I have personally spent 35 minutes of critical care time in the direct management of this patient. This is a life/limb threatening event. This includes time spent evaluating patient, direct bedside care, chart review, placing orders, interpretation of diagnostic studies, discussion with consultants, patient, and family members, as well as other required patient management activities. This time is exclusive of all separately billable procedures, and teaching time and separate from and in addition to any other critical care service time. Thank you for this consultation allow us to be part of this patient's care. Please refer to my attending physician's documentation for any further recommendations. Resident Physician Supervision Note: I evaluated the patient, obtained a history and performed a physical exam, I discussed the case with Benjie Samuels PA-C and agree with the findings and plan as documented in the note. Any exceptions or clarifications are listed here: Patient with new onset complete heart block, prior history of LBBB. Positive Lyme IgM. Etiology of heart block could be related to recent Lyme infection but may also be due to intrinsic conduction disease. S/p temporary transvenous pacemaker via right femoral vein, working well, capturing 100% of the time. EP evaluation regarding the timing/necessity of permanent pacemaker Used CPAP overnight Fully anticoagulated with Coumadin, per patient she was told she requires it lifelong. She describes a history of unprovoked pulmonary embolism. Critical care time spent evaluating the patient, reviewing the chart, discussing with consultants, greater than 35 minutes Documented By: Huber Hernandez MD
[2017-09-28] MEDS ORDERED: GLUCOSE 40% GEL 15 GM TUBE PO PRN (20:30)
[2017-09-28] MEDS ORDERED: GLUCOSE 10 TABS/TUBE PO PRN (20:30)
[2017-09-28] MEDS ORDERED: DEXTROSE 50% 50 ML SYR IV PRN (20:30)
[2017-09-28] MEDS ORDERED: GLUCAGON FOR INJ 1 MG VIAL SQ PRN (20:30)
[2017-09-28] MEDS: INSULIN ASPART 100 UNITS/ML 3 ML PEN SC SCH (20:43)
[2017-09-28] MEDS: VENLAFAXINE HCL XR 150 MG CAPXR PO SCH (20:49)
[2017-09-28] MEDS: GABAPENTIN 100 MG CAP PO SCH (20:49)
[2017-09-28] MEDS: RANITIDINE HCL 150 MG TAB PO SCH (20:49)
[2017-09-28] MEDS: ATORVASTATIN 10 MG TAB PO SCH (20:49)
[2017-09-28] MEDS: VENLAFAXINE HCL XR 75 MG CAPXR PO SCH (20:49)
[2017-09-28] MEDS: CEFTRIAXONE SOD INJ 2,000 MG in DEXTROSE 5% 50ML 50 ML IV SCH (21:51)
[2017-09-29] VITALS (33 sets, daily range): BP systolic 111–158; BP diastolic 56–97; PULSE 66–72; TEMP 36.7–37.2; O2SAT 89–96
[2017-09-29 05:40] LABS: MEAN CELL VOLUME 98.4 fL (80-100); MEAN CORPUSCULAR HEMOGLOBIN 31.9 pg (25-34); MEAN CORPUSCULAR HGB CONC 32.4 g/dl (32-36); MEAN PLATELET VOLUME 12.3 fL (7.4-10.4); PLATELET COUNT 177 K/uL (130-400); RED BLOOD COUNT 3.86 M/uL (4.2-5.4); WHITE BLOOD COUNT 10.46 K/uL (4.8-10.8)
[2017-09-29 05:54] LABS: PROTHROMBIN TIME (PATIENT) 22.1 SECONDS (9.0-12.0)
[2017-09-29] MEDS: INSULIN ASPART 100 UNITS/ML 3 ML PEN SC SCH ×4 (06:18→20:09)
[2017-09-29 06:42] LABS: BUN/CREATININE RATIO 17.3 (10-20); CALCIUM 8.4 mg/dl (8.5-10.1); CREATININE 1.04 mg/dl (0.60-1.20); MAGNESIUM 2.1 mg/dl (1.8-2.4); POTASSIUM 5.1 mmol/L (3.5-5.1); THYROID STIMULATING HORMONE 1.21 uIu/ml (0.300-4.500)
[2017-09-29] MEDS: GABAPENTIN 100 MG CAP PO SCH ×2 (07:39→20:13)
[2017-09-29] MEDS: RANITIDINE HCL 150 MG TAB PO SCH ×2 (07:39→20:13)
--- NOTE | 2017-09-29 10:04 | Critical Care Progress Note ---
Critical Care Progress Note Date of Service Sep 29, 2017. ICU Day ICU Day Number: [address] Hernandez Subjective Patient feeling well currently, she denies acute overnight events. She has noted improvement in her symptoms since the insertion of the temporary pacer. She is now able to converse without feeling short of breath and her chest pressure is also relieved. She states she is usually active but recently was struggling with ADLs due to dyspnea, fatigue and muscle aches. She denies cardiac pain, dyspnea at rest, palpitations. She is tolerating PO intake without NV or abdominal pain. Pickett in situ. No BM yet. Management plans discussed in detail. Although further discussion re: pacer to be had with field hand, all patient's questions were answered to her satisfaction. Objective VITAL SIGNS - Vital signs and nursing notes were reviewed. GENERAL - 77-year-old female appearing her stated age who is in no acute distress. Communicates well with provider and answers questions appropriately. SKIN - Temporary pacemaker with sheath noted in place to the RIGHT groin. GENERAL: alert, well appearing, obese, sitting in bed, no acute distress, non- toxic HEAD: NC/AT. No sinus tenderness. EYES: Normal sclera and conjunctiva OROPHARYNX: No exudate, no erythema. Lips, buccal mucosa, and tongue normal and mucous membranes are moist NECK: Supple, no adenopathy, non-tender LUNGS: Normal chest wall mechanics, no reproducible tenderness on palpation. CTAB, with good air entry. No crepitations, crackles, or wheezes HEART: RRR, S1 and S2 normal, grade 3-4 systolic murmur heard at right upper sternal edge. No rubs or gallops appreciated. ABDOMEN: Soft, non-tender, normo-active bowel sounds, no masses, no rebound or guarding. SKIN: Warm, pink, dry. No erythema, rashes, or bruising. EXTREMITIES: Grossly normal. Moving all 4 limbs, strength 5/5. No pitting edema. Calves supple. NEURO: Alert, Ox3. No focal deficits. Normal sensorium to light touch, cranial nerves II-XII grossly intact, normal speech. PSYCH: Mood and affect appropriate. Current SOFA Score SOFA Score Response (Comments) Value Platelets (x10) > 150 0 Bilirubin (mg/dL) < 1.2 0 Contreras Coma Score 15 0 Level of Hypotension No Hypotension 0 Creatinine (mg/dL) < 1.2 0 Total 0 Assessment & Plan Reason Critically Ill: 77-year-old female with progressively worsening dyspnea on exertion found to have complete heart block with a heart rate in the 20s to 30s requiring placement of temporary pacemaker. 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 Neuro - * CAM ICU: NEGATIVE * Post-Herpetic Neuralgia - continue gabapentin * Depression - continue venlafaxine * Morphine for any breakthrough pain Cardiac - * Complete Heart Block with a heart rate in the 20s-30s requiring transvenous temporary pacemaker placement: * History of known LBBB and new RBBB of concern in the setting - continue pacing (70/10/2) * Currently paced in the 60s - adjustments per cardiology. * ?Lyme carditis - Positive Lyme IgM serology. Western blot pending. * Appreciate cardiology guidance. * History of Dyslipidemia - continue atorvastatin * Monitor on Telemetry. * EKGs with CP Respiratory - * History of DARRELL: * Continue CPAP w/ home settings. * History of bilateral pulmonary emboli without trigger * Currently on lifetime anticoagulation with warfarin GI/- * Diet: DM * Prophylaxis - Ranitidine * Pickett Catheter in place. * Strict I&Os. RENAL/LYTES - * Monitor Electrolytes Daily - replace appropriately. * No IVFs at this time - tolerating PO. ENDO - * History of DM: * Continue Metformin. * BSGs per protocol - ISS per protocol if BSGs elevated. * No known h/o Tyroid Disease - TSH/T4 normal. T3 pending. To rule out as contributing factor to bradycardia/block. HEME - * Stable H&H - monitor daily. * Anticoagulated with Coumadin 2/2 h/o PEs: * INR 2.0 today. * Will hold warfarin given potential procedure placement of permanent pacer. ID - * Positive Lyme IgM Serology - ??Contributing to heart block/carditis: * Patient has complained of vague myopathies and generalized malaise just prior to the onset of the SOB. * Medhat Blot pending. * Continue IV ceftriaxone 2g daily. With improvement of carditis, may eventually transition to PO doxycycline for 21 day course total * Appreciate ID consult. * ??Need for PICC/Midline for continued IV Abx - appreciate ID input. LINES/IV ACCESS - * PIVs intact. * RIGHT Femoral Temporary Pacer Wire intact. * Pickett Catheter in place. DVT PROPHYLAXIS - * Warfarin w/ INR of 2.0 Resident Physician Supervision Note: I evaluated the patient, obtained a history and performed a physical exam, I discussed the case with Dr Geiger and agree with the findings and plan as documented in the note. Any exceptions or clarifications are listed here: Patient with new onset complete heart block, prior history of LBBB. Positive Lyme IgM. Etiology of heart block could be related to recent Lyme infection but may also be due to intrinsic conduction disease. S/p temporary transvenous pacemaker via right femoral vein, working well, capturing 100% of the time. EP evaluation regarding the timing/necessity of permanent pacemaker On Rocephin 2 gm daily for suspected Lyme disease. ID consult Nocturnal CPAP Fully anticoagulated with Coumadin, per patient she was told she requires it lifelong. She describes a history of unprovoked pulmonary embolism. Critical care time spent evaluating the patient, reviewing the chart, discussing with consultants, greater than 35 minutes Documented By: Huber Hernandez MD Consults & Procedures Consultants: Cardiology Critical care Procedures: Temporary pacer via right femoral artery Data Medications: Current Inpatient Medications Medications (Trade) Dose Ordered Sig/Daryl Route Start Time Stop Time Status Last Admin Dose Admin Acetaminophen (Tylenol Tab) 650 mg Q4H PRN PO 09/28/17 19:00 10/28/17 18:59 Lorazepam (Ativan Tab) 0.5 mg Q4H PRN PO 09/28/17 19:00 10/28/17 18:59 Lorazepam (Ativan Inj) 0.5 mg Q4H PRN IV 09/28/17 19:00 10/28/17 18:59 Nitroglycerin (Nitrostat Tab) 0.4 mg UD PRN SL 09/28/17 19:00 10/28/17 18:59 Ranitidine HCl (zANTac TAB) 150 mg BID PO 09/28/17 21:00 10/28/17 20:59 09/29/17 07:39 150 MG Morphine Sulfate (MoRPHine SULFATE INJ) 2 mg Q2H PRN IV 09/28/17 19:00 10/12/17 18:59 Atorvastatin Calcium (Lipitor Tab) 10 mg QPM PO 09/28/17 21:00 10/28/17 20:59 09/28/17 20:49 10 MG Gabapentin (Neurontin Cap) 100 mg BID PO 09/28/17 21:00 10/28/17 20:59 09/29/17 07:39 100 MG Venlafaxine HCl (effeXOR EXTENDED REL CAP) 150 mg QPM PO 09/28/17 21:00 10/28/17 20:59 09/28/17 20:49 150 MG Venlafaxine HCl (effeXOR EXTENDED REL CAP) 75 mg QPM PO 09/28/17 21:00 10/28/17 20:59 09/28/17 20:49 75 MG Warfarin Sodium (Coumadin Tab) 10 mg MoTuThFrSa@1600 PO 09/29/17 16:00 10/29/17 15:59 Future Hold Ketotifen Fumarate (Zaditor 0.025% Op Soln) 1 drops Q12 PRN OP 09/28/17 19:00 10/28/17 18:59 Insulin Aspart (novoLOG ASPART) SLIDING SCALE PARAMETER ACHS SC 09/28/17 21:00 10/28/17 20:59 Glucose (Glucose 40% Gel) 15-30 GRAMS 15 GRAMS... UD PRN PO 09/28/17 20:30 10/28/17 20:29 Glucose (Glucose Chew Tab) 4-8 Tablets 4 Tabl... UD PRN PO 09/28/17 20:30 10/28/17 20:29 Dextrose (Dextrose 50% 50ML Syringe) 25-50ML OF 50% DW IV FOR... UD PRN IV 09/28/17 20:30 10/28/17 20:29 Glucagon (Glucagon Inj) 1 mg UD PRN SQ 09/28/17 20:30 10/28/17 20:29 Ceftriaxone Sodium 2000 mg/ Dextrose 70 ml @ 100 mls/hr DAILY@2200 IV 09/28/17 22:00 10/08/17 21:59 09/28/17 21:51 100 MLS/HR Vital Signs: Date Time Temp Pulse Resp B/P (MAP) Pulse Ox O2 Delivery O2 Flow Rate FiO2 09/29/17 07:18 Room Air 09/29/17 07:18 37.0 70 22 116/97 (103) 93 Room Air 09/29/17 06:00 70 25 138/72 (94) 93 CPAP 2.0 09/29/17 04:00 96 CPAP 2.0 09/29/17 04:00 36.7 70 24 124/56 (78) 94 CPAP 2.0 09/29/17 02:00 70 24 158/70 (99) 95 CPAP 2.0 09/29/17 00:00 37.0 70 23 141/61 (87) 96 CPAP 2.0 09/29/17 00:00 96 CPAP 2.0 09/28/17 23:05 70 96 2.0 09/28/17 22:30 69 20 161/80 (107) 09/28/17 22:01 69 29 146/67 (93) 95 09/28/17 21:30 70 18 165/81 (109) 95 09/28/17 21:15 71 19 155/78 (103) 93 09/28/17 21:01 70 25 150/71 (97) 95 09/28/17 20:46 71 23 136/63 (87) 94 09/28/17 20:30 68 21 135/91 (106) 95 Room Air 09/28/17 20:30 36.6 68 21 135/91 (106) 95 09/28/17 20:16 70 16 108/95 (99) 95 Room Air 09/28/17 20:15 69 15 159/84 94 Room Air 09/28/17 20:02 70 20 159/84 (109) 94 Room Air 09/28/17 19:55 70 18 152/63 (92) 92 Room Air 09/28/17 19:34 70 18 155/90 (111) 95 Room Air 09/28/17 19:25 70 18 140/90 (107) 95 Room Air 09/28/17 19:02 34 20 133/68 96 09/28/17 18:36 39 20 133/51 97 Nasal Cannula 2.0 09/28/17 18:21 32 20 153/49 96 Nasal Cannula 2.0 09/28/17 18:12 Nasal Cannula 2.0 09/28/17 18:10 98 Nasal Cannula 2.0 09/28/17 18:10 99 Nasal Cannula 2.0 09/28/17 18:08 45 09/28/17 17:58 37.2 30 20 136/53 98 Nasal Cannula 2.0 Laboratory Results: Last 24 Hours Test 09/28/17 17:40 09/28/17 20:21 09/29/17 05:11 09/29/17 06:12 White Blood Count 12.17 K/uL 10.46 K/uL Red Blood Count 4.19 M/uL 3.86 M/uL Hemoglobin 13.4 g/dL 12.3 g/dL Hematocrit 41.3 % 38.0 % Mean Corpuscular Volume 98.6 fL 98.4 fL Mean Corpuscular Hemoglobin 32.0 pg 31.9 pg Mean Corpuscular Hemoglobin Concent 32.4 g/dl 32.4 g/dl Platelet Count 193 K/uL 177 K/uL Mean Platelet Volume 12.8 fL 12.3 fL Neutrophils (%) (Auto) 67.0 % Lymphocytes (%) (Auto) 22.8 % Monocytes (%) (Auto) 8.1 % Eosinophils (%) (Auto) 1.6 % Basophils (%) (Auto) 0.3 % Neutrophils # (Auto) 8.16 K/uL Lymphocytes # (Auto) 2.77 K/uL Monocytes # (Auto) 0.98 K/uL Eosinophils # (Auto) 0.19 K/uL Basophils # (Auto) 0.04 K/uL RDW Standard Deviation 50.1 fL 49.6 fL RDW Coefficient of Variation 14.0 % 14.0 % Immature Granulocyte % (Auto) 0.2 % Immature Granulocyte # (Auto) 0.03 K/uL Prothrombin Time 24.1 SECONDS 22.1 SECONDS Prothromb Time International Ratio 2.2 2.0 Activated Partial Thromboplast Time 34.2 SECONDS Partial Thromboplastin Ratio 1.3 Sodium Level 140 mmol/L 141 mmol/L Potassium Level 4.4 mmol/L 5.1 mmol/L Chloride Level 105 mmol/L 107 mmol/L Carbon Dioxide Level 26 mmol/L 28 mmol/L Anion Gap 9.0 mmol/L 6.0 mmol/L Blood Urea Nitrogen 23 mg/dl 18 mg/dl Creatinine 1.10 mg/dl 1.04 mg/dl Est Creatinine Clear Calc Drug Dose 54.5 ml/min 58.0 ml/min Estimated GFR () 56.1 60.0 Estimated GFR (Non- 48.4 51.8 BUN/Creatinine Ratio 20.6 17.3 Random Glucose 108 mg/dl 126 mg/dl Calcium Level 9.4 mg/dl 8.4 mg/dl Total Bilirubin 0.5 mg/dl Direct Bilirubin 0.1 mg/dl Aspartate Amino Transf (AST/SGOT) 18 U/L Alanine Aminotransferase (ALT/SGPT) 26 U/L Alkaline Phosphatase 76 U/L Total Creatine Kinase 98 U/L Creatine Kinase MB 1.3 ng/ml Creatine Kinase MB Ratio 1.3 Troponin I < 0.015 ng/ml Pro-B-Type Natriuretic Peptide 2941 pg/ml Total Protein 7.8 gm/dl Albumin 3.4 gm/dl Lipase 197 U/L Lyme Disease IgG Antibody NEG Lyme Disease IgM Antibody POS Bedside Glucose 103 mg/dl 111 mg/dl Magnesium Level 2.1 mg/dl Thyroid Stimulating Hormone (TSH) 1.210 uIu/ml Free Thyroxine 0.86 ng/dl Test 09/29/17 09:23 Resident Tracking Resident Involvement: Resident Care Provided Care Provided: Adult Hospital Medicine
--- NOTE | 2017-09-29 10:32 | Medical Consult ---
Consultation Date of Consultation: Sep 29, 2017. Attending Physician: Leland Florez D.O. Reason for Consultation: Possible Lyme disease, status post temporary pacemaker placement History of Present Illness 77-year-old female with history of diabetes mellitus, obstructive sleep apnea , hypertension, who was in usual state of health until approximately 2 weeks ago , when she developed what she thought was symptoms of the flu with fever, chills , severe myalgias and arthralgias, and headache with some respiratory complaints. Was given prescription for azithromycin without much help. Symptoms lessened then recurred again, and then patient developed weakness, dizziness, shortness of breath. She was found to be in complete heart block and is now status post placement of a temporary pacemaker. Initial screening Lyme serology positive for IgM antibodies, IgG negative. Western blot assay is pending. Patient has been started on ceftriaxone 2 grams daily. Feeling somewhat better. No chest pain currently. Patient does remember several times when she was out working in wooded area. No obvious tick bite, no erythema migrans type rash. Past Medical/Surgical History Medical Problems: (1) Complete heart block Status: Acute (2) Dyspnea on exertion Status: Acute (3) Encounter for management of temporary pacemaker Status: Acute (4) Positive Lyme disease serology Status: Acute (5) Precordial chest pain Status: Acute (6) Shortness of breath Status: Acute PAST MEDICAL HISTORY: Benign positional vertigo 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 Dyslipidemia Depression Borderline hypertension Nephrolithiasis Obstructive sleep apnea, uses CPAP Obesity PAST SURGICAL HISTORY: Appendectomy Cholecystectomy Carpal tunnel release D and C Knee replacement Tonsillectomy Tubal ligation Family History FH: cancer FHx: diabetes mellitus FHx: gallbladder disease FHx: heart disease FHx: hypertension FHx: kidney disease Kidney stones Social History Smoking Status: Never Smoker Smokeless Tobacco Use: Yes Alcohol Use: none Drug Use: none Marital Status: Housing Status: lives with family Allergies Coded Allergies: No Known Allergies (Verified , 09/28/17) Current Inpatient Medications Current Inpatient Medications Medications (Trade) Dose Ordered Sig/Daryl Route Start Time Stop Time Status Last Admin Dose Admin Acetaminophen (Tylenol Tab) 650 mg Q4H PRN PO 09/28/17 19:00 10/28/17 18:59 Lorazepam (Ativan Tab) 0.5 mg Q4H PRN PO 09/28/17 19:00 10/28/17 18:59 Lorazepam (Ativan Inj) 0.5 mg Q4H PRN IV 09/28/17 19:00 10/28/17 18:59 Nitroglycerin (Nitrostat Tab) 0.4 mg UD PRN SL 09/28/17 19:00 10/28/17 18:59 Ranitidine HCl (zANTac TAB) 150 mg BID PO 09/28/17 21:00 10/28/17 20:59 09/29/17 07:39 150 MG Morphine Sulfate (MoRPHine SULFATE INJ) 2 mg Q2H PRN IV 09/28/17 19:00 10/12/17 18:59 Atorvastatin Calcium (Lipitor Tab) 10 mg QPM PO 09/28/17 21:00 10/28/17 20:59 09/28/17 20:49 10 MG Gabapentin (Neurontin Cap) 100 mg BID PO 09/28/17 21:00 10/28/17 20:59 09/29/17 07:39 100 MG Venlafaxine HCl (effeXOR EXTENDED REL CAP) 150 mg QPM PO 09/28/17 21:00 10/28/17 20:59 09/28/17 20:49 150 MG Venlafaxine HCl (effeXOR EXTENDED REL CAP) 75 mg QPM PO 09/28/17 21:00 10/28/17 20:59 09/28/17 20:49 75 MG Warfarin Sodium (Coumadin Tab) 10 mg MoTuThFrSa@1600 PO 09/29/17 16:00 10/29/17 15:59 Future Hold Ketotifen Fumarate (Zaditor 0.025% Op Soln) 1 drops Q12 PRN OP 09/28/17 19:00 10/28/17 18:59 Insulin Aspart (novoLOG ASPART) SLIDING SCALE PARAMETER ACHS SC 09/28/17 21:00 10/28/17 20:59 Glucose (Glucose 40% Gel) 15-30 GRAMS 15 GRAMS... UD PRN PO 09/28/17 20:30 10/28/17 20:29 Glucose (Glucose Chew Tab) 4-8 Tablets 4 Tabl... UD PRN PO 09/28/17 20:30 10/28/17 20:29 Dextrose (Dextrose 50% 50ML Syringe) 25-50ML OF 50% DW IV FOR... UD PRN IV 09/28/17 20:30 12/15/17 20:29 Glucagon (Glucagon Inj) 1 mg UD PRN SQ 09/28/17 20:30 10/28/17 20:29 Ceftriaxone Sodium 2000 mg/ Dextrose 70 ml @ 100 mls/hr DAILY@2200 IV 09/28/17 22:00 10/08/17 21:59 09/28/17 21:51 100 MLS/HR Review of Systems Constitutional: + fever, + weakness, + fatigue Eyes: No problem reported ENT: No problem reported Respiratory: + shortness of breath Cardiovascular: + palpitations Abdomen: No problem reported Musculoskeletal: + joint pain, + muscle pain Genitourinary - Female: No problem reported Neurologic: No problem reported Psychiatric: No problem reported Endocrine: No problem reported Hematologic / Lymphatic: No problem reported Integumentary: No problem reported Allergic / Immunologic: No problem reported Physical Exam Date Time Temp Pulse Resp B/P (MAP) Pulse Ox O2 Delivery O2 Flow Rate FiO2 09/29/17 09:30 37.0 70 20 123/75 (91) 93 Room Air 09/29/17 08:00 Room Air CPAP 09/29/17 07:18 Room Air 09/29/17 07:18 37.0 70 22 116/97 (103) 93 Room Air 09/29/17 06:00 70 25 138/72 (94) 93 CPAP 2.0 09/29/17 04:00 96 CPAP 2.0 09/29/17 04:00 36.7 70 24 124/56 (78) 94 CPAP 2.0 09/29/17 02:00 70 24 158/70 (99) 95 CPAP 2.0 09/29/17 00:00 37.0 70 23 141/61 (87) 96 CPAP 2.0 09/29/17 00:00 96 CPAP 2.0 09/28/17 23:05 70 96 2.0 09/28/17 22:30 69 20 161/80 (107) 09/28/17 22:01 69 29 146/67 (93) 95 09/28/17 21:30 70 18 165/81 (109) 95 09/28/17 21:15 71 19 155/78 (103) 93 09/28/17 21:01 70 25 150/71 (97) 95 09/28/17 20:46 71 23 136/63 (87) 94 09/28/17 20:30 68 21 135/91 (106) 95 Room Air 09/28/17 20:30 36.6 68 21 135/91 (106) 95 09/28/17 20:16 70 16 108/95 (99) 95 Room Air 09/28/17 20:15 69 15 159/84 94 Room Air 09/28/17 20:02 70 20 159/84 (109) 94 Room Air 09/28/17 19:55 70 18 152/63 (92) 92 Room Air 09/28/17 19:34 70 18 155/90 (111) 95 Room Air 09/28/17 19:25 70 18 140/90 (107) 95 Room Air 09/28/17 19:02 34 20 133/68 96 09/28/17 18:36 39 20 133/51 97 Nasal Cannula 2.0 09/28/17 18:21 32 20 153/49 96 Nasal Cannula 2.0 09/28/17 18:12 Nasal Cannula 2.0 09/28/17 18:10 98 Nasal Cannula 2.0 09/28/17 18:10 99 Nasal Cannula 2.0 09/28/17 18:08 45 09/28/17 17:58 37.2 30 20 136/53 98 Nasal Cannula 2.0 General Appearance: WD/WN, no apparent distress Head: normocephalic, atraumatic Eyes: normal inspection, EOMI, sclerae normal ENT: normal ENT inspection, hearing grossly normal, pharynx normal Neck: supple, no adenopathy, thyroid normal, trachea midline Respiratory/Chest: chest non-tender, lungs clear, normal breath sounds, no respiratory distress Cardiovascular: regular rate, rhythm, no gallop, no murmur Abdomen/GI: normal bowel sounds, non tender, soft, no organomegaly Back: normal inspection, no CVA tenderness Extremities/Musculoskelatal: no calf tenderness, normal capillary refill, non- tender Neurologic/Psych: alert, normal mood/affect, oriented x 3 Skin: normal color, warm/dry, no rash Lymphatic: no adenopathy Laboratory Results Date/Time Source Procedure Growth Status 09/28/17 20:15 Nasal MRSA DNA Surveillance Screen - Final Specimen Negative for MRSA by DNA Probe Complete Last 24 Hours Test 09/28/17 17:40 09/28/17 20:21 09/29/17 05:11 09/29/17 06:12 White Blood Count 12.17 K/uL 10.46 K/uL Red Blood Count 4.19 M/uL 3.86 M/uL Hemoglobin 13.4 g/dL 12.3 g/dL Hematocrit 41.3 % 38.0 % Mean Corpuscular Volume 98.6 fL 98.4 fL Mean Corpuscular Hemoglobin 32.0 pg 31.9 pg Mean Corpuscular Hemoglobin Concent 32.4 g/dl 32.4 g/dl Platelet Count 193 K/uL 177 K/uL Mean Platelet Volume 12.8 fL 12.3 fL Neutrophils (%) (Auto) 67.0 % Lymphocytes (%) (Auto) 22.8 % Monocytes (%) (Auto) 8.1 % Eosinophils (%) (Auto) 1.6 % Basophils (%) (Auto) 0.3 % Neutrophils # (Auto) 8.16 K/uL Lymphocytes # (Auto) 2.77 K/uL Monocytes # (Auto) 0.98 K/uL Eosinophils # (Auto) 0.19 K/uL Basophils # (Auto) 0.04 K/uL RDW Standard Deviation 50.1 fL 49.6 fL RDW Coefficient of Variation 14.0 % 14.0 % Immature Granulocyte % (Auto) 0.2 % Immature Granulocyte # (Auto) 0.03 K/uL Prothrombin Time 24.1 SECONDS 22.1 SECONDS Prothromb Time International Ratio 2.2 2.0 Activated Partial Thromboplast Time 34.2 SECONDS Partial Thromboplastin Ratio 1.3 Sodium Level 140 mmol/L 141 mmol/L Potassium Level 4.4 mmol/L 5.1 mmol/L Chloride Level 105 mmol/L 107 mmol/L Carbon Dioxide Level 26 mmol/L 28 mmol/L Anion Gap 9.0 mmol/L 6.0 mmol/L Blood Urea Nitrogen 23 mg/dl 18 mg/dl Creatinine 1.10 mg/dl 1.04 mg/dl Est Creatinine Clear Calc Drug Dose 54.5 ml/min 58.0 ml/min Estimated GFR () 56.1 60.0 Estimated GFR (Non- 48.4 51.8 BUN/Creatinine Ratio 20.6 17.3 Random Glucose 108 mg/dl 126 mg/dl Calcium Level 9.4 mg/dl 8.4 mg/dl Total Bilirubin 0.5 mg/dl Direct Bilirubin 0.1 mg/dl Aspartate Amino Transf (AST/SGOT) 18 U/L Alanine Aminotransferase (ALT/SGPT) 26 U/L Alkaline Phosphatase 76 U/L Total Creatine Kinase 98 U/L Creatine Kinase MB 1.3 ng/ml Creatine Kinase MB Ratio 1.3 Troponin I < 0.015 ng/ml Pro-B-Type Natriuretic Peptide 2941 pg/ml Total Protein 7.8 gm/dl Albumin 3.4 gm/dl Lipase 197 U/L Lyme Disease IgG Antibody NEG Lyme Disease IgM Antibody POS Bedside Glucose 103 mg/dl 111 mg/dl Magnesium Level 2.1 mg/dl Thyroid Stimulating Hormone (TSH) 1.210 uIu/ml Free Thyroxine 0.86 ng/dl Free Triiodothyronine 2.35 pg/ml Test 09/29/17 09:46 CHEST ONE VIEW PORTABLE CLINICAL HISTORY: 77 years-old Female presenting with CHEST PAIN. TECHNIQUE: Portable upright AP view of the chest was obtained. COMPARISON: 12/29/2015. FINDINGS: Image quality is degraded by patient body habitus. Atherosclerosis of aortic arch. Cardiac silhouette remains mildly enlarged. Lungs and pleural spaces clear. Degenerative changes of the thoracic spine. Upper abdomen normal. IMPRESSION: 1. Cardiomegaly. Otherwise no acute cardiopulmonary disease. Electronically signed by: Kulwinder Feng M.D. 09/28/2017 6:36 PM Dictated Date/Time: 09/28/2017 6:35 PM The status of this report is Signed. Draft = Not yet reviewed or approved by Radiologist. Signed = Reviewed and approved by Radiologist. <AttendingPhy></AttendingPhy> <FamilyPhy>Kulwinder Byers M.D.</FamilyPhy> < PrimaryPhy>Kulwinder Byers M.D.</PrimaryPhy> <UnitNumber>[id number]</UnitNumber> <VisitNumber>[id number]</VisitNumber> <PatientName>SURI ADAIR</ PatientName> <DateOfBirth>1940</DateOfBirth> <Location>[facility]</Location> < ServiceDate>09/28/17</ServiceDate> <MNE>ESINDI</MNE> <OrderingPhy>Bret Moreno MD</OrderingPhy> <OrderingPhyMNE>f rep ord dr dietz</OrderingPhyMNE> < DictatingPhyMNE>f rep dict dr dietz</DictatingPhyMNE> <CCListMNE>f rep ct mne</ CCListMNE> <AdmittingPhyMNE>f pt admit dr dietz</AdmittingPhyMNE> <AttendingPhyMNE >f pt attend dr dietz</AttendingPhyMNE> <ConsultingPhyMNE>f pt consult dr dietz</ConsultingPhyMNE> <FamilyPhyMNE>f pt fam dr dietz</FamilyPhyMNE> <OtherPhyMNE>f pt other dr dietz</OtherPhyMNE> < PrimaryPhyMNE>f pt prim care dr dietz</PrimaryPhyMNE> <ReferringPhyMNE>f pt referring dr dietz</ReferringPhyMNE> Assessment & Plan 77-year-old female with heart block now status post temporary pacemaker, with positive IgM screening serology for Lyme disease. Certainly her prior symptoms compatible with diagnosis of early Lyme disease, and as such I would recommend continuing patient on IV ceftriaxone and following if possible for resolution of her heart block. If this does occur, can then be transitioned to oral doxycycline to complete her course of therapy. Western blot results will likely take at least 7-10 days. Will discuss with all involved. Will follow.
--- NOTE | 2017-09-29 13:51 | Progress Note ---
Subjective Date of Service: Sep 29, 2017. Subjective Pt evaluation today including: conversation w/ patient, physical exam, lab review, review of studies, conversation w/ field technical support consultant, review of inpatient medication list Pain: no pain PO Intake: NPO for permanent pacer, potentially Voiding: almaguer catheter in place patient feeling well, much better than prior to admission no chest pain, no dyspnea no fever, no aches on monitor she is paced at 70, not going above pacer rate appreciate consult from Dr. Gottlieb, treating possible Lyme disease with Mary Alice reviewed lab work today Problem List Medical Problems: (1) Complete heart block Status: Acute (2) Dyspnea on exertion Status: Acute (3) Encounter for management of temporary pacemaker Status: Acute (4) Positive Lyme disease serology Status: Acute (5) Precordial chest pain Status: Acute (6) Shortness of breath Status: Acute Review of Systems All Other Systems: Reviewed and Negative Medications Current Inpatient Medications Medications (Trade) Dose Ordered Sig/Daryl Route Start Time Stop Time Status Last Admin Dose Admin Acetaminophen (Tylenol Tab) 650 mg Q4H PRN PO 09/28/17 19:00 10/28/17 18:59 Lorazepam (Ativan Tab) 0.5 mg Q4H PRN PO 09/28/17 19:00 10/28/17 18:59 Lorazepam (Ativan Inj) 0.5 mg Q4H PRN IV 09/28/17 19:00 10/28/17 18:59 Nitroglycerin (Nitrostat Tab) 0.4 mg UD PRN SL 09/28/17 19:00 10/28/17 18:59 Ranitidine HCl (zANTac TAB) 150 mg BID PO 09/28/17 21:00 10/28/17 20:59 09/29/17 07:39 150 MG Morphine Sulfate (MoRPHine SULFATE INJ) 2 mg Q2H PRN IV 09/28/17 19:00 10/12/17 18:59 Atorvastatin Calcium (Lipitor Tab) 10 mg QPM PO 09/28/17 21:00 10/28/17 20:59 09/28/17 20:49 10 MG Gabapentin (Neurontin Cap) 100 mg BID PO 09/28/17 21:00 10/28/17 20:59 09/29/17 07:39 100 MG Venlafaxine HCl (effeXOR EXTENDED REL CAP) 150 mg QPM PO 09/28/17 21:00 10/28/17 20:59 09/28/17 20:49 150 MG Venlafaxine HCl (effeXOR EXTENDED REL CAP) 75 mg QPM PO 09/28/17 21:00 10/28/17 20:59 09/28/17 20:49 75 MG Warfarin Sodium (Coumadin Tab) 10 mg MoTuThFrSa@1600 PO 09/29/17 16:00 10/29/17 15:59 Future Hold Ketotifen Fumarate (Zaditor 0.025% Op Soln) 1 drops Q12 PRN OP 09/28/17 19:00 10/28/17 18:59 Insulin Aspart (novoLOG ASPART) SLIDING SCALE PARAMETER ACHS SC 09/28/17 21:00 10/28/17 20:59 Glucose (Glucose 40% Gel) 15-30 GRAMS 15 GRAMS... UD PRN PO 09/28/17 20:30 10/28/17 20:29 Glucose (Glucose Chew Tab) 4-8 Tablets 4 Tabl... UD PRN PO 09/28/17 20:30 10/28/17 20:29 Dextrose (Dextrose 50% 50ML Syringe) 25-50ML OF 50% DW IV FOR... UD PRN IV 09/28/17 20:30 10/28/17 20:29 Glucagon (Glucagon Inj) 1 mg UD PRN SQ 09/28/17 20:30 10/28/17 20:29 Ceftriaxone Sodium 2000 mg/ Dextrose 70 ml @ 100 mls/hr DAILY@2200 IV 09/28/17 22:00 10/08/17 21:59 09/28/17 21:51 100 MLS/HR Objective Vital Signs Date Time Temp Pulse Resp B/P (MAP) Pulse Ox O2 Delivery O2 Flow Rate FiO2 09/29/17 13:34 37.0 70 20 130/75 (93) 95 Room Air 09/29/17 13:31 70 22 130/75 (93) 93 09/29/17 13:01 70 29 138/64 (88) 94 09/29/17 13:00 69 29 09/29/17 12:30 70 27 150/75 (100) 91 09/29/17 12:01 70 21 129/66 (87) 95 09/29/17 12:00 66 22 90 09/29/17 11:30 70 27 143/66 (91) 91 09/29/17 11:06 37.0 70 20 135/71 (92) 94 Room Air 09/29/17 11:03 Room Air 09/29/17 11:00 70 27 135/71 (92) 09/29/17 10:30 67 26 139/72 (94) 92 09/29/17 10:00 71 28 134/82 (99) 91 09/29/17 09:30 70 20 123/75 (91) 94 09/29/17 09:30 37.0 70 20 123/75 (91) 93 Room Air 09/29/17 09:00 70 18 128/72 (90) 09/29/17 08:30 70 28 135/68 (90) 90 09/29/17 08:00 70 29 111/80 (90) 92 09/29/17 08:00 Room Air CPAP 09/29/17 07:31 69 18 145/72 (96) 93 09/29/17 07:18 Room Air 09/29/17 07:18 37.0 70 22 116/97 (103) 93 Room Air 09/29/17 07:00 72 26 116/67 (83) 89 09/29/17 06:00 70 25 138/72 (94) 93 CPAP 2.0 09/29/17 04:00 96 CPAP 2.0 09/29/17 04:00 36.7 70 24 124/56 (78) 94 CPAP 2.0 09/29/17 02:00 70 24 158/70 (99) 95 CPAP 2.0 09/29/17 00:00 37.0 70 23 141/61 (87) 96 CPAP 2.0 09/29/17 00:00 96 CPAP 2.0 09/28/17 23:05 70 96 2.0 09/28/17 22:30 69 20 161/80 (107) 09/28/17 22:01 69 29 146/67 (93) 95 09/28/17 21:30 70 18 165/81 (109) 95 09/28/17 21:15 71 19 155/78 (103) 93 09/28/17 21:01 70 25 150/71 (97) 95 09/28/17 20:46 71 23 136/63 (87) 94 09/28/17 20:30 68 21 135/91 (106) 95 Room Air 09/28/17 20:30 36.6 68 21 135/91 (106) 95 09/28/17 20:16 70 16 108/95 (99) 95 Room Air 09/28/17 20:15 69 15 159/84 94 Room Air 09/28/17 20:02 70 20 159/84 (109) 94 Room Air 09/28/17 19:55 70 18 152/63 (92) 92 Room Air 09/28/17 19:34 70 18 155/90 (111) 95 Room Air 09/28/17 19:25 70 18 140/90 (107) 95 Room Air 09/28/17 19:02 34 20 133/68 96 09/28/17 18:36 39 20 133/51 97 Nasal Cannula 2.0 09/28/17 18:21 32 20 153/49 96 Nasal Cannula 2.0 09/28/17 18:12 Nasal Cannula 2.0 09/28/17 18:10 98 Nasal Cannula 2.0 09/28/17 18:10 99 Nasal Cannula 2.0 09/28/17 18:08 45 09/28/17 17:58 37.2 30 20 136/53 98 Nasal Cannula 2.0 Physical Exam General Appearance: no apparent distress, + obese Eyes: normal inspection, EOMI, sclerae normal Neck: supple, no adenopathy, no JVD, trachea midline Respiratory/Chest: chest non-tender, lungs clear, normal breath sounds, no respiratory distress, no accessory muscle use Cardiovascular: regular rate, rhythm, no edema, no gallop, no JVD, no murmur Abdomen: normal bowel sounds, non tender, soft, no organomegaly Extremities: normal range of motion, non-tender, normal inspection, no pedal edema, no calf tenderness, pelvis stable Neurologic/Psychiatric: theatre manager II-XII nml as tested, no motor/sensory deficits, alert, normal mood/affect, oriented x 3 Skin: normal color, warm/dry, no rash Laboratory Results Last 24 Hours Test 09/28/17 17:40 09/28/17 20:21 09/29/17 05:11 09/29/17 06:12 White Blood Count 12.17 K/uL 10.46 K/uL Red Blood Count 4.19 M/uL 3.86 M/uL Hemoglobin 13.4 g/dL 12.3 g/dL Hematocrit 41.3 % 38.0 % Mean Corpuscular Volume 98.6 fL 98.4 fL Mean Corpuscular Hemoglobin 32.0 pg 31.9 pg Mean Corpuscular Hemoglobin Concent 32.4 g/dl 32.4 g/dl Platelet Count 193 K/uL 177 K/uL Mean Platelet Volume 12.8 fL 12.3 fL Neutrophils (%) (Auto) 67.0 % Lymphocytes (%) (Auto) 22.8 % Monocytes (%) (Auto) 8.1 % Eosinophils (%) (Auto) 1.6 % Basophils (%) (Auto) 0.3 % Neutrophils # (Auto) 8.16 K/uL Lymphocytes # (Auto) 2.77 K/uL Monocytes # (Auto) 0.98 K/uL Eosinophils # (Auto) 0.19 K/uL Basophils # (Auto) 0.04 K/uL RDW Standard Deviation 50.1 fL 49.6 fL RDW Coefficient of Variation 14.0 % 14.0 % Immature Granulocyte % (Auto) 0.2 % Immature Granulocyte # (Auto) 0.03 K/uL Prothrombin Time 24.1 SECONDS 22.1 SECONDS Prothromb Time International Ratio 2.2 2.0 Activated Partial Thromboplast Time 34.2 SECONDS Partial Thromboplastin Ratio 1.3 Sodium Level 140 mmol/L 141 mmol/L Potassium Level 4.4 mmol/L 5.1 mmol/L Chloride Level 105 mmol/L 107 mmol/L Carbon Dioxide Level 26 mmol/L 28 mmol/L Anion Gap 9.0 mmol/L 6.0 mmol/L Blood Urea Nitrogen 23 mg/dl 18 mg/dl Creatinine 1.10 mg/dl 1.04 mg/dl Est Creatinine Clear Calc Drug Dose 54.5 ml/min 58.0 ml/min Estimated GFR () 56.1 60.0 Estimated GFR (Non- 48.4 51.8 BUN/Creatinine Ratio 20.6 17.3 Random Glucose 108 mg/dl 126 mg/dl Calcium Level 9.4 mg/dl 8.4 mg/dl Total Bilirubin 0.5 mg/dl Direct Bilirubin 0.1 mg/dl Aspartate Amino Transf (AST/SGOT) 18 U/L Alanine Aminotransferase (ALT/SGPT) 26 U/L Alkaline Phosphatase 76 U/L Total Creatine Kinase 98 U/L Creatine Kinase MB 1.3 ng/ml Creatine Kinase MB Ratio 1.3 Troponin I < 0.015 ng/ml Pro-B-Type Natriuretic Peptide 2941 pg/ml Total Protein 7.8 gm/dl Albumin 3.4 gm/dl Lipase 197 U/L Lyme Disease IgG Antibody NEG Lyme Disease IgM Antibody POS Bedside Glucose 103 mg/dl 111 mg/dl Magnesium Level 2.1 mg/dl Thyroid Stimulating Hormone (TSH) 1.210 uIu/ml Free Thyroxine 0.86 ng/dl Free Triiodothyronine 2.35 pg/ml Test 09/29/17 09:46 Assessment and Plan 77 yo female with h/o DVT/PE, DARRELL, DM, presented with dyspnea on exertion, presyncope, recent fever/chills, found to be in complete AV block, HR in 20-30's - Complete AV block: temp pacer placed on 09/28, paced at 70 currently, all her symptoms improved will be evaluated for PPM by electrophysiology - Lyme disease: IgM screen positive, awaiting titers, Erlichiosis sent out as well Rocephin IV daily, follow up final results if heart block due entirely to Lyme disease then it should resolve will follow closely - DARRELL: continue CPAP - DM: Novolog, diabetes diet - H/o VTE: hold Coumadin, INR 2.0 Plan: keep in ICU, await decision on PPM, follow up on Lyme titers
[2017-09-29] MEDS ORDERED: WARFARIN SOD 10 MG TAB PO SCH (16:00)
--- NOTE | 2017-09-29 17:27 | Cardiology Consultation ---
Cardiology Consultation Date of Consultation: Sep 29, 2017. Requesting Physician: Jean Reason for Consultation: Heart block Pt evaluation today including: conversation w/ patient, conversation w/ family , physical exam, chart review, lab review, review of studies, conversation w/ attending History of Present Illness The patient is a 77-year-old woman without a known history of cardiac disease who has been experiencing symptoms of a viral illness for several weeks. She states that approximately 3 weeks ago she began to have upper respiratory symptoms such as nasal congestion. She had subjective fevers and chills. She also had some muscle aches and pains. She had a nonproductive cough and due to the persistent nature of the symptoms presented to her primary care physician yesterday for evaluation. At that visit she was found to be markedly bradycardic and eventually discovered to have complete heart block. She was sent to the emergency room at [facility] for evaluation. Due to the nature of her conduction disease and associated symptoms she did undergo placement of a transvenous temporary pacemaker. She was sent to the intensive care unit in initial evaluation suggests that she may have recently been exposed to Lyme disease. Patient does report being outside recently and pruning her marigolds. She cannot recall noticing a rash on her body. She did not report worsening joint pains. She does report some mild dizziness and lightheadedness, but no presyncopal symptoms. She has not had actual syncope. She also complains of some lower extremity weakness and discomfort in her legs. She is not aware of any palpitations. Since implantation of the temporary pacemaker she does report feeling somewhat better. Past Medical/Surgical History Morbid obesity 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 Depression Hyperlipidemia Obstructive sleep apnea History of pulmonary embolus on chronic anticoagulation Cataracts Osteoarthritis History of herpes zoster Past surgical history Appendectomy Cholecystectomy Dilation and curettage Endometrial biopsy The replacement Tooth extraction Tonsillectomy Tubal ligation Family History FH: cancer FHx: diabetes mellitus FHx: gallbladder disease FHx: heart disease FHx: hypertension FHx: kidney disease Kidney stones Patient does report her sister has a defibrillator. Social History Smoking Status: Never Smoker History of Alcohol Use: No approximately 2 months ago. Review of Systems Cardiac: + chest pain Per HPI All Other Systems: Reviewed and Negative Allergies Coded Allergies: No Known Allergies (Verified , 09/28/17) Medications Current Inpatient Medications Medications (Trade) Dose Ordered Sig/Daryl Route Start Time Stop Time Status Last Admin Dose Admin Acetaminophen (Tylenol Tab) 650 mg Q4H PRN PO 09/28/17 19:00 10/28/17 18:59 Lorazepam (Ativan Tab) 0.5 mg Q4H PRN PO 09/28/17 19:00 10/28/17 18:59 Lorazepam (Ativan Inj) 0.5 mg Q4H PRN IV 09/28/17 19:00 10/28/17 18:59 Nitroglycerin (Nitrostat Tab) 0.4 mg UD PRN SL 09/28/17 19:00 10/28/17 18:59 Ranitidine HCl (zANTac TAB) 150 mg BID PO 09/28/17 21:00 10/28/17 20:59 09/29/17 07:39 150 MG Morphine Sulfate (MoRPHine SULFATE INJ) 2 mg Q2H PRN IV 09/28/17 19:00 10/12/17 18:59 Atorvastatin Calcium (Lipitor Tab) 10 mg QPM PO 09/28/17 21:00 10/28/17 20:59 09/28/17 20:49 10 MG Gabapentin (Neurontin Cap) 100 mg BID PO 09/28/17 21:00 10/28/17 20:59 09/29/17 07:39 100 MG Venlafaxine HCl (effeXOR EXTENDED REL CAP) 150 mg QPM PO 09/28/17 21:00 10/28/17 20:59 09/28/17 20:49 150 MG Venlafaxine HCl (effeXOR EXTENDED REL CAP) 75 mg QPM PO 09/28/17 21:00 10/28/17 20:59 09/28/17 20:49 75 MG Warfarin Sodium (Coumadin Tab) 10 mg MoTuThFrSa@1600 PO 09/29/17 16:00 10/29/17 15:59 Future Hold Ketotifen Fumarate (Zaditor 0.025% Op Soln) 1 drops Q12 PRN OP 09/28/17 19:00 10/28/17 18:59 Insulin Aspart (novoLOG ASPART) SLIDING SCALE PARAMETER ACHS SC 09/28/17 21:00 10/28/17 20:59 Glucose (Glucose 40% Gel) 15-30 GRAMS 15 GRAMS... UD PRN PO 09/28/17 20:30 10/28/17 20:29 Glucose (Glucose Chew Tab) 4-8 Tablets 4 Tabl... UD PRN PO 09/28/17 20:30 10/28/17 20:29 Dextrose (Dextrose 50% 50ML Syringe) 25-50ML OF 50% DW IV FOR... UD PRN IV 09/28/17 20:30 10/28/17 20:29 Glucagon (Glucagon Inj) 1 mg UD PRN SQ 09/28/17 20:30 10/28/17 20:29 Ceftriaxone Sodium 2000 mg/ Dextrose 70 ml @ 100 mls/hr DAILY@2200 IV 09/28/17 22:00 10/08/17 21:59 09/28/17 21:51 100 MLS/HR Physical Exam Vital Signs Past 12 Hours Date Time Temp Pulse Resp B/P (MAP) Pulse Ox O2 Delivery O2 Flow Rate FiO2 09/29/17 16:00 37.0 69 18 137/83 (101) 93 Room Air 09/29/17 16:00 93 Room Air 09/29/17 13:34 37.0 70 20 130/75 (93) 95 Room Air 09/29/17 13:31 70 22 130/75 (93) 93 09/29/17 13:01 70 29 138/64 (88) 94 09/29/17 13:00 69 29 09/29/17 12:30 70 27 150/75 (100) 91 09/29/17 12:01 70 21 129/66 (87) 95 09/29/17 12:00 66 22 90 09/29/17 11:30 70 27 143/66 (91) 91 09/29/17 11:06 37.0 70 20 135/71 (92) 94 Room Air 09/29/17 11:03 Room Air 09/29/17 11:00 70 27 135/71 (92) 09/29/17 10:30 67 26 139/72 (94) 92 09/29/17 10:00 71 28 134/82 (99) 91 09/29/17 09:30 70 20 123/75 (91) 94 09/29/17 09:30 37.0 70 20 123/75 (91) 93 Room Air 09/29/17 09:00 70 18 128/72 (90) 09/29/17 08:30 70 28 135/68 (90) 90 09/29/17 08:00 70 29 111/80 (90) 92 09/29/17 08:00 Room Air CPAP 09/29/17 07:31 69 18 145/72 (96) 93 09/29/17 07:18 Room Air 09/29/17 07:18 37.0 70 22 116/97 (103) 93 Room Air 09/29/17 07:00 72 26 116/67 (83) 89 09/29/17 06:00 70 25 138/72 (94) 93 CPAP 2.0 She is alert and oriented x3. Mood affect appear normal. She answered all questions appropriately. Morbidly obese HEENT: Sclerae are anicteric. Pupils are equal and reactive to light and accommodation. Extraocular movements were intact. Neuro: Cranial nerves intact Neck: Examination of the submandibular region did not reveal any significant lymphadenopathy. Carotids are palpable bilaterally and free of bruits on auscultation. There was no evidence of jugular venous distention. The thyroid was not enlarged. Lungs: Lungs are clear to auscultation bilaterally but breath sounds are very distant. There are no rales wheezes or rhonchi. She has normal respiratory effort without use of accessory muscles. There is normal pulmonary excursion. Cardiac: The rhythm was regular. S1 and S2 were normal. Systolic ejection murmur. The PMI was not markedly displaced on palpation. Abdomen: The abdomen was soft and nontender. Extremities: Patient has bilateral radial pulses that are equal in intensity. There is no evidence cyanosis or clubbing. There was no evidence of significant peripheral edema bilaterally. Skin: There are no rashes noted on examination today. Data Laboratory Results: Last 24 Hours Test 09/28/17 17:40 09/28/17 20:21 09/29/17 05:11 09/29/17 06:12 White Blood Count 12.17 K/uL 10.46 K/uL Red Blood Count 4.19 M/uL 3.86 M/uL Hemoglobin 13.4 g/dL 12.3 g/dL Hematocrit 41.3 % 38.0 % Mean Corpuscular Volume 98.6 fL 98.4 fL Mean Corpuscular Hemoglobin 32.0 pg 31.9 pg Mean Corpuscular Hemoglobin Concent 32.4 g/dl 32.4 g/dl Platelet Count 193 K/uL 177 K/uL Mean Platelet Volume 12.8 fL 12.3 fL Neutrophils (%) (Auto) 67.0 % Lymphocytes (%) (Auto) 22.8 % Monocytes (%) (Auto) 8.1 % Eosinophils (%) (Auto) 1.6 % Basophils (%) (Auto) 0.3 % Neutrophils # (Auto) 8.16 K/uL Lymphocytes # (Auto) 2.77 K/uL Monocytes # (Auto) 0.98 K/uL Eosinophils # (Auto) 0.19 K/uL Basophils # (Auto) 0.04 K/uL RDW Standard Deviation 50.1 fL 49.6 fL RDW Coefficient of Variation 14.0 % 14.0 % Immature Granulocyte % (Auto) 0.2 % Immature Granulocyte # (Auto) 0.03 K/uL Prothrombin Time 24.1 SECONDS 22.1 SECONDS Prothromb Time International Ratio 2.2 2.0 Activated Partial Thromboplast Time 34.2 SECONDS Partial Thromboplastin Ratio 1.3 Sodium Level 140 mmol/L 141 mmol/L Potassium Level 4.4 mmol/L 5.1 mmol/L Chloride Level 105 mmol/L 107 mmol/L Carbon Dioxide Level 26 mmol/L 28 mmol/L Anion Gap 9.0 mmol/L 6.0 mmol/L Blood Urea Nitrogen 23 mg/dl 18 mg/dl Creatinine 1.10 mg/dl 1.04 mg/dl Est Creatinine Clear Calc Drug Dose 54.5 ml/min 58.0 ml/min Estimated GFR () 56.1 60.0 Estimated GFR (Non- 48.4 51.8 BUN/Creatinine Ratio 20.6 17.3 Random Glucose 108 mg/dl 126 mg/dl Calcium Level 9.4 mg/dl 8.4 mg/dl Total Bilirubin 0.5 mg/dl Direct Bilirubin 0.1 mg/dl Aspartate Amino Transf (AST/SGOT) 18 U/L Alanine Aminotransferase (ALT/SGPT) 26 U/L Alkaline Phosphatase 76 U/L Total Creatine Kinase 98 U/L Creatine Kinase MB 1.3 ng/ml Creatine Kinase MB Ratio 1.3 Troponin I < 0.015 ng/ml Pro-B-Type Natriuretic Peptide 2941 pg/ml Total Protein 7.8 gm/dl Albumin 3.4 gm/dl Lipase 197 U/L Lyme Disease IgG Antibody NEG Lyme Disease IgM Antibody POS Bedside Glucose 103 mg/dl 111 mg/dl Magnesium Level 2.1 mg/dl Thyroid Stimulating Hormone (TSH) 1.210 uIu/ml Free Thyroxine 0.86 ng/dl Free Triiodothyronine 2.35 pg/ml Test 09/29/17 09:46 09/29/17 10:45 09/29/17 15:45 Bedside Glucose 124 mg/dl 104 mg/dl Imaging: Single-view chest x-ray demonstrated cardiomegaly but no acute cardiopulmonary problems EKG: Initial EKG demonstrated complete heart block with likely junctional escape rhythm and incomplete right bundle-branch block Telemetry reviewed: Continued complete heart block Echocardiogram performed December 2015 revealed preserved LV systolic function with mild mitral regurgitation. Assessment & Plan 1. Complete heart block: The duration of the patient's conduction disease is unclear. This may have started several weeks ago. Whether this is related to underlying Lyme disease is also not clear. Her IgM fraction is positive then she certainly listed in endemic area and could of been exposed. She had some prodrome of a infectious process over the past few weeks. However, she also has significant conduction disease at baseline in her record reveals EKGs with left bundle branch block morphology previously. Currently, she is quite stable with her transvenous pacemaker. She is feeling better. I agree with Dr. Gottlieb, I think we should wait to see if treatment for Lyme disease has any effect on her conduction disease. Waiting is only complicated by the potential risks associated with her trans venous pacemaker, especially in its femoral location. I think we can re-evaluate her rhythm in the morning to determine if more prolonged course of antibiotics is warranted. 2. Valvular heart disease: Mild mitral regurgitation 2015. She does have a murmur on exam but this is not likely teleservices representative of any aortic valvular disease. No urgent need for re-evaluation.
[2017-09-29] MEDS: ATORVASTATIN 10 MG TAB PO SCH (20:12)
[2017-09-29] MEDS: VENLAFAXINE HCL XR 150 MG CAPXR PO SCH (20:13)
[2017-09-29] MEDS: VENLAFAXINE HCL XR 75 MG CAPXR PO SCH (20:13)
[2017-09-29] MEDS: CEFTRIAXONE SOD INJ 2,000 MG in DEXTROSE 5% 50ML 50 ML IV SCH (21:12)
[2017-09-30] VITALS (27 sets, daily range): BP systolic 102–185; BP diastolic 51–101; PULSE 70–93; TEMP 36.6–37; O2SAT 90–96
[2017-09-30 05:49] LABS: BASO % 0.5 %; BASO ABS # 0.04 K/uL (0-0.2); COMPLETE YES; EOS % 2.4 %; IG% 0.2 %; LYMPH % 22.3 %; LYMPH ABS # 1.93 K/uL (1.2-3.4); MEAN CELL VOLUME 97.3 fL (80-100); MEAN CORPUSCULAR HEMOGLOBIN 31.7 pg (25-34); MEAN CORPUSCULAR HGB CONC 32.6 g/dl (32-36); MEAN PLATELET VOLUME 12.2 fL (7.4-10.4); MONO % 9.5 %; NEUT % 65.1 %; PLATELET COUNT 164 K/uL (130-400); RED BLOOD COUNT 4.01 M/uL (4.2-5.4); WHITE BLOOD COUNT 8.67 K/uL (4.8-10.8)
[2017-09-30 06:01] LABS: INR 1.5 (0.9-1.1); PROTHROMBIN TIME (PATIENT) 16.1 SECONDS (9.0-12.0)
[2017-09-30 06:23] LABS: BUN/CREATININE RATIO 14.4 (10-20); CALCIUM 8.7 mg/dl (8.5-10.1); MAGNESIUM 2.2 mg/dl (1.8-2.4); POTASSIUM 4.8 mmol/L (3.5-5.1)
[2017-09-30 06:25] LABS: PHOSPHORUS 3.2 mg/dl (2.5-4.9)
[2017-09-30] MEDS: INSULIN ASPART 100 UNITS/ML 3 ML PEN SC SCH ×4 (06:45→21:00)
[2017-09-30] MEDS: GABAPENTIN 100 MG CAP PO SCH ×2 (08:01→19:36)
[2017-09-30] MEDS: RANITIDINE HCL 150 MG TAB PO SCH ×2 (08:01→19:36)
--- NOTE | 2017-09-30 09:32 | Procedure Note ---
Pre-Mod Sedation Assessment General Date of Moderate Sedation: Sep 30, 2017. Vital Signs: Vital Signs Past 12 Hours Date Time Temp Pulse Resp B/P (MAP) Pulse Ox O2 Delivery O2 Flow Rate FiO2 09/30/17 08:00 37.0 70 20 128/64 (85) 92 Room Air 70 09/30/17 08:00 92 Room Air 09/30/17 06:01 36.9 70 16 95 70 09/30/17 06:00 70 20 95 09/30/17 05:45 70 19 94 09/30/17 05:30 70 17 92 09/30/17 05:15 70 21 96 09/30/17 05:01 70 18 102/64 (77) 96 09/30/17 05:00 71 22 96 09/30/17 04:00 CPAP 2.0 09/30/17 04:00 36.6 70 20 120/57 (78) 94 70 09/30/17 03:00 70 16 109/74 (86) 94 09/30/17 02:00 36.9 70 20 126/61 (82) 96 09/30/17 01:01 70 18 126/64 (84) 95 09/30/17 01:00 70 93 09/30/17 00:45 70 09/30/17 00:30 70 09/30/17 00:15 70 09/30/17 00:00 CPAP 2.0 09/30/17 00:00 70 23 126/60 (82) 09/30/17 00:00 36.7 70 18 126/60 (82) 96 CPAP 2.0 70 09/29/17 23:45 70 09/29/17 23:30 70 09/29/17 23:15 70 09/29/17 23:01 70 17 138/70 (92) 96 70 09/29/17 22:45 70 09/29/17 22:19 72 94 2.0 09/29/17 22:00 70 22 115/67 (83) 92 CPAP 2.0 Review Cardiovascular: regular rate, rhythm, + systolic murmur Pre-Sedation Airway Assessment Oral Cavity: Dentures Able to Visualize Vocal Cords: No Short Thick Neck: Yes Hx of Sleep Apnea: Yes Smoking Status: Never Smoker Mallampati Classification: Class III ASA Classification: Class III Procedure Planning Contraindications-for Mod Sed: None Yes Notes The planned sedation has been discussed with the patient and consent obtained. I have identified the patient, determined the appropriateness of sedation and have assessed the patient immediately prior to the procedure. All medicine(s) and interventions are by my order.
--- NOTE | 2017-09-30 09:56 | Critical Care Progress Note ---
Critical Care Progress Note Date of Service Sep 30, 2017. ICU Day ICU Day Number: [address] Hernandez Subjective Patient feels well currently, and denies acute overnight events. She continues to be asymptomatic of chest pain, dyspnea, palpitations. She was tolerating PO intake without N/V or abdominal pain. Pickett in situ. No BM yet. She would like to get pacemaker inserted instead of waiting. She is aware of the risks and benefits as explained to her by the printed circuit board panels plater. Management plans discussed in further detail, and all patient's questions were answered to her satisfaction. Objective GENERAL: alert, well appearing, obese, sitting in bed, no acute distress, non- toxic HEAD: NC/AT. No sinus tenderness. EYES: Normal sclera and conjunctiva OROPHARYNX: No exudate, no erythema. Lips, buccal mucosa, and tongue normal and mucous membranes are moist NECK: Supple, no adenopathy, non-tender LUNGS: Normal chest wall mechanics, no reproducible tenderness on palpation. CTAB, with good air entry. No crepitations, crackles, or wheezes HEART: RRR, S1 and S2 normal, grade 3-4 murmur heard at right upper sternal edge. No rubs or gallops appreciated. ABDOMEN: Soft, non-tender, normo-active bowel sounds, no masses, no rebound or guarding. SKIN: Warm, pink, dry. No erythema, rashes, or bruising. Temporary pacemaker with sheath noted in place to the RIGHT groin. EXTREMITIES: Grossly normal. Moving all 4 limbs, strength 5/5. No pitting edema. Calves supple. NEURO: Alert, Ox3. No focal deficits. Normal sensorium to light touch, cranial nerves II-XII grossly intact, normal speech. PSYCH: Mood and affect appropriate. Current SOFA Score SOFA Score Response (Comments) Value Platelets (x10) > 150 0 Bilirubin (mg/dL) < 1.2 0 Contreras Coma Score 15 0 Level of Hypotension No Hypotension 0 Creatinine (mg/dL) < 1.2 0 Total 0 Assessment & Plan Reason Critically Ill: 77-year-old female with progressively worsening dyspnea on exertion found to have complete heart block with a heart rate in the 20s to 30s requiring placement of temporary pacemaker. 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 Neuro - * CAM ICU: negative * Post-herpetic neuralgia - continue gabapentin * Depression - continue venlafaxine * Morphine for any breakthrough pain Cardiac - * Complete Heart Block with a heart rate in the 20s-30s requiring transvenous temporary pacemaker placement: * History of known LBBB and new RBBB of concern in the setting - ?Lyme carditis * Currently paced in the 60s - adjustments per cardiology - patient for pacemaker placement today * Appreciate cardiology guidance * History of Dyslipidemia - continue atorvastatin * Monitor on Telemetry. * EKGs with CP Respiratory - * History of DARRELL: * Continue CPAP w/ home settings. * History of bilateral pulmonary emboli without trigger * Currently on lifetime anticoagulation with warfarin GI/- * Diet: NPO for now until pacemaker placement. Then resume DM diet * Prophylaxis - ranitidine * Pickett catheter in place * Strict I&Os. RENAL/LYTES - * Monitor electrolytes daily - replace appropriately * No IVFs ENDO - * History of DM: * Continue Metformin * BSGs per protocol - ISS per protocol if BSGs elevated * No known h/o thyroid disease - TSH/T4/T3 normal HEME - * Stable H&H - monitor daily. * Anticoagulated with Coumadin 2/2 h/o PEs: * INR 1.5 today * Warfarin held for pacemaker placement. Will resume upon cardiology instruction. Regular dose 10mg M,T,TH,F,S, 11mg W,LEACH ID - * Positive Lyme IgM serology - ??Contributing to heart block/carditis: * Patient has complained of vague myopathies and generalized malaise just prior to the onset of the SOB * Medhat Blot pending * Continue IV ceftriaxone 2g daily. With improvement of carditis, may eventually transition to PO doxycycline for 21 day course total * Appreciate ID consult LINES/IV ACCESS - * PIVs intact * RIGHT femoral temporary pacer wire intact * Pickett catheter in place DVT PROPHYLAXIS - * On warfarin w/ INR of 1.5 today. Will resume post procedure * SCDs * * Resident Physician Supervision Note: I evaluated the patient, obtained a history and performed a physical exam, I discussed the case with Dr Geiger and agree with the findings and plan as documented in the note. Any exceptions or clarifications are listed here: Patient with new onset complete heart block, prior history of LBBB. Positive Lyme IgM. Etiology of heart block could be related to recent Lyme infection but may also be due to intrinsic conduction disease. S/p temporary transvenous pacemaker via right femoral vein, working well, capturing 100% of the time. No improvement since yesterday, still fully dependent on the pacemaker EP following the patient, will place PPM today. NPO On Rocephin 2 gm daily for suspected Lyme disease. F/u Western Blot Nocturnal CPAP Fully anticoagulated with Coumadin, per patient she was told she requires it lifelong. She describes a history of unprovoked pulmonary embolism. Coumadin on hold for PPM Critical care time spent evaluating the patient, reviewing the chart, discussing with consultants, greater than 25 minutes Documented By: Huber Hernandez MD Consults & Procedures Consultants: Cardiology Critical care Procedures: Temporary pacer via right femoral artery Data Medications: Current Inpatient Medications Medications (Trade) Dose Ordered Sig/Daryl Route Start Time Stop Time Status Last Admin Dose Admin Acetaminophen (Tylenol Tab) 650 mg Q4H PRN PO 09/28/17 19:00 10/28/17 18:59 09/30/17 04:04 650 MG Lorazepam (Ativan Tab) 0.5 mg Q4H PRN PO 09/28/17 19:00 10/28/17 18:59 Lorazepam (Ativan Inj) 0.5 mg Q4H PRN IV 09/28/17 19:00 10/28/17 18:59 Nitroglycerin (Nitrostat Tab) 0.4 mg UD PRN SL 09/28/17 19:00 10/28/17 18:59 Ranitidine HCl (zANTac TAB) 150 mg BID PO 09/28/17 21:00 10/28/17 20:59 09/29/17 20:13 150 MG Morphine Sulfate (MoRPHine SULFATE INJ) 2 mg Q2H PRN IV 09/28/17 19:00 10/12/17 18:59 Atorvastatin Calcium (Lipitor Tab) 10 mg QPM PO 09/28/17 21:00 10/28/17 20:59 09/29/17 20:12 10 MG Gabapentin (Neurontin Cap) 100 mg BID PO 09/28/17 21:00 10/28/17 20:59 09/29/17 20:13 100 MG Venlafaxine HCl (effeXOR EXTENDED REL CAP) 150 mg QPM PO 09/28/17 21:00 10/28/17 20:59 09/29/17 20:13 150 MG Venlafaxine HCl (effeXOR EXTENDED REL CAP) 75 mg QPM PO 09/28/17 21:00 10/28/17 20:59 09/29/17 20:13 75 MG Warfarin Sodium (Coumadin Tab) 10 mg MoTuThFrSa@1600 PO 09/29/17 16:00 10/29/17 15:59 Future Hold Ketotifen Fumarate (Zaditor 0.025% Op Soln) 1 drops Q12 PRN OP 09/28/17 19:00 10/28/17 18:59 Insulin Aspart (novoLOG ASPART) SLIDING SCALE PARAMETER ACHS SC 09/28/17 21:00 10/28/17 20:59 Glucose (Glucose 40% Gel) 15-30 GRAMS 15 GRAMS... UD PRN PO 09/28/17 20:30 10/28/17 20:29 Glucose (Glucose Chew Tab) 4-8 Tablets 4 Tabl... UD PRN PO 09/28/17 20:30 10/28/17 20:29 Dextrose (Dextrose 50% 50ML Syringe) 25-50ML OF 50% DW IV FOR... UD PRN IV 09/28/17 20:30 10/28/17 20:29 Glucagon (Glucagon Inj) 1 mg UD PRN SQ 09/28/17 20:30 10/28/17 20:29 Ceftriaxone Sodium 2000 mg/ Dextrose 70 ml @ 100 mls/hr DAILY@2200 IV 09/28/17 22:00 10/08/17 21:59 09/29/17 21:12 100 MLS/HR Vital Signs: Date Time Temp Pulse Resp B/P (MAP) Pulse Ox O2 Delivery O2 Flow Rate FiO2 09/30/17 06:01 36.9 70 16 95 70 09/30/17 06:00 70 20 95 09/30/17 05:45 70 19 94 09/30/17 05:30 70 17 92 09/30/17 05:15 70 21 96 09/30/17 05:01 70 18 102/64 (77) 96 09/30/17 05:00 71 22 96 09/30/17 04:00 CPAP 2.0 09/30/17 04:00 36.6 70 20 120/57 (78) 94 70 09/30/17 03:00 70 16 109/74 (86) 94 09/30/17 02:00 36.9 70 20 126/61 (82) 96 09/30/17 01:01 70 18 126/64 (84) 95 09/30/17 01:00 70 93 09/30/17 00:45 70 09/30/17 00:30 70 09/30/17 00:15 70 09/30/17 00:00 CPAP 2.0 09/30/17 00:00 70 23 126/60 (82) 09/30/17 00:00 36.7 70 18 126/60 (82) 96 CPAP 2.0 70 09/29/17 23:45 70 09/29/17 23:30 70 09/29/17 23:15 70 09/29/17 23:01 70 17 138/70 (92) 96 70 09/29/17 22:45 70 09/29/17 22:19 72 94 2.0 09/29/17 22:00 70 22 115/67 (83) 92 CPAP 2.0 09/29/17 20:00 93 Room Air 09/29/17 20:00 37.2 70 19 151/72 (98) 93 Room Air 09/29/17 18:00 70 20 137/74 (95) 91 Room Air 09/29/17 16:00 37.0 69 18 137/83 (101) 93 Room Air 09/29/17 16:00 93 Room Air 09/29/17 13:34 37.0 70 20 130/75 (93) 95 Room Air 09/29/17 13:31 70 22 130/75 (93) 93 09/29/17 13:01 70 29 138/64 (88) 94 09/29/17 13:00 69 29 09/29/17 12:30 70 27 150/75 (100) 91 09/29/17 12:01 70 21 129/66 (87) 95 09/29/17 12:00 66 22 90 09/29/17 11:30 70 27 143/66 (91) 91 09/29/17 11:06 37.0 70 20 135/71 (92) 94 Room Air 09/29/17 11:03 Room Air 09/29/17 11:00 70 27 135/71 (92) 09/29/17 10:30 67 26 139/72 (94) 92 09/29/17 10:00 71 28 134/82 (99) 91 11/16/17 09:30 70 20 123/75 (91) 94 09/29/17 09:30 37.0 70 20 123/75 (91) 93 Room Air 09/29/17 09:00 70 18 128/72 (90) Laboratory Results: Last 24 Hours Test 09/29/17 09:46 09/29/17 10:45 09/29/17 15:45 09/29/17 19:49 Bedside Glucose 124 mg/dl 104 mg/dl 135 mg/dl Test 09/30/17 05:29 09/30/17 06:42 White Blood Count 8.67 K/uL Red Blood Count 4.01 M/uL Hemoglobin 12.7 g/dL Hematocrit 39.0 % Mean Corpuscular Volume 97.3 fL Mean Corpuscular Hemoglobin 31.7 pg Mean Corpuscular Hemoglobin Concent 32.6 g/dl Platelet Count 164 K/uL Mean Platelet Volume 12.2 fL Neutrophils (%) (Auto) 65.1 % Lymphocytes (%) (Auto) 22.3 % Monocytes (%) (Auto) 9.5 % Eosinophils (%) (Auto) 2.4 % Basophils (%) (Auto) 0.5 % Neutrophils # (Auto) 5.65 K/uL Lymphocytes # (Auto) 1.93 K/uL Monocytes # (Auto) 0.82 K/uL Eosinophils # (Auto) 0.21 K/uL Basophils # (Auto) 0.04 K/uL RDW Standard Deviation 48.6 fL RDW Coefficient of Variation 13.6 % Immature Granulocyte % (Auto) 0.2 % Immature Granulocyte # (Auto) 0.02 K/uL Prothrombin Time 16.1 SECONDS Prothromb Time International Ratio 1.5 Sodium Level 141 mmol/L Potassium Level 4.8 mmol/L Chloride Level 108 mmol/L Carbon Dioxide Level 28 mmol/L Anion Gap 5.0 mmol/L Blood Urea Nitrogen 14 mg/dl Creatinine 1.00 mg/dl Est Creatinine Clear Calc Drug Dose 59.7 ml/min Estimated GFR () 62.9 Estimated GFR (Non- 54.3 BUN/Creatinine Ratio 14.4 Random Glucose 122 mg/dl Calcium Level 8.7 mg/dl Phosphorus Level 3.2 mg/dl Magnesium Level 2.2 mg/dl Bedside Glucose 105 mg/dl Resident Tracking Resident Involvement: Resident Care Provided Care Provided: Adult Hospital Medicine
[2017-09-30] MEDS ORDERED: CEFAZOLIN 3000MG IV PUSH 15 ML IV SCH (10:00)
[2017-09-30] MEDS ORDERED: CEFAZOLIN IV 3,000 MG in SYRINGE 0 ML IV SCH (11:00)
[2017-09-30] MEDS ORDERED: CEFAZOLIN SOD 1 GM VIAL ONE (15:51)
[2017-09-30] MEDS ORDERED: LIDOCAINE HCL 1% 20 ML VIAL ONE ×2 (16:00→16:26)
[2017-09-30] MEDS ORDERED: BUPIVACAINE 0.5 % 5 MG/1 ML MPF 30ML VIAL ONE (16:00)
[2017-09-30] MEDS ORDERED: BACITRACIN 50000 UNIT VIAL ONE (16:00)
[2017-09-30] MEDS ORDERED: FENTANYL CITRATE INJ 50 MCG/1 ML 2 ML VIAL ONE (16:03)
[2017-09-30] MEDS ORDERED: MIDAZOLAM HCL 5 MG/ML 1 ML VIAL ONE (16:03)
--- NOTE | 2017-09-30 17:19 | [facility] Operative Report ---
Operative Report Date of Service Sep 30, 2017. Operative Report Procedure performed: Implantation of dual-chamber permanent pacemaker Staff assistant merchandise manager: Ugo Bethea MD Indication: The patient is a 77-year-old woman who presented [facility] with complete heart block. She has an extensive history of conduction disease having both left bundle branch block and right bundle branch block on different EKGs. There is some concern regarding Lyme disease but she has had treatment for 2 days with no improvement of her conduction. As such she was a good candidate for permanent pacing due to symptomatic non reversible AV node dysfunction. Dual-chamber device was selected as she is currently in sinus rhythm which to maintain AV synchrony. Procedure in detail: The patient was informed of the risks benefits and alternatives to the intended procedure and she wished to proceed. She was taken to the electrophysiology suite in a fasting state. A preoperative antibiotic had been administered. The patient was monitored electrocardiographically throughout today's procedure and conscious sedation was administered per protocol. The left upper pectoral area is prepped and draped in usual sterile fashion. This area was anesthetized using subcutaneous menstruation of a xylocaine solution. An incision was made at this site and carried down to the prepectoralis fascia using sharp dissection. Electrocautery was also employed for dissection as well as for hemostasis. A device pocket was fashioned tissues above the pectoralis muscle. Subsequent to this maneuver the left axillary vein was accessed using modified Seldinger technique. Sheaths were placed over guidewires at this site and used to facilitate passage of the pacing leads to the respective chambers under fluoroscopic guidance. This included right atrial and right ventricular leads. Adequate sensing and threshold parameters were obtained prior to Active fixation of the leads to the endocardial surface. The proximal portion leads were then sutured the prepectoral fascia using nonabsorbable suture. The device pocket was irrigated with antibiotic solution. The leads were then attached to the device. The device and leads were then placed in the pocket and pocket was closed in 3 layers of absorbable suture. Steri-Strips and sterile dressing were applied. The device was tested noninvasively prior to conclusion the procedure. A previously placed temporary transvenous pacemaker was subsequently withdrawn under fluoroscopic guidance. The patient tolerated procedure well there no immediate complications. Equipment used: New pulse generator: [employer]. Model number: [id number] serial number [id number] Right atrial lead: [employer]. Model number: 4076 serial number [id number] Right ventricular lead: [employer]. Model number: 4076 serial number [id number] Measured data: Right atrial lead: P-waves measured 3.6 mV. Pacing threshold 0.5 volts at 0.4 millisecond with a pacing impedance of 399 Ohms Right ventricular lead: No intrinsic R-waves were measured. Pacing threshold 0.75 volts at 0.4 milliseconds with a pacing impedance of 798 Ohms Impression: Successful implantation of dual-chamber permanent pacemaker I attest to the content of the Intraoperative Record and any orders documented therein. Any exceptions are noted below.
[2017-09-30] MEDS ORDERED: WARFARIN SOD 5 MG TAB PO ONE (18:00)
[2017-09-30] MEDS ORDERED: WARFARIN SOD 5 MG TAB PO SCH (18:00)
--- NOTE | 2017-09-30 19:29 | Infectious Disease Progress Nt ---
Progress Note Date of Service Sep 30, 2017. Subjective Pt evaluation today including: conversation w/ patient, physical exam, chart review, lab review, review of studies, conversation w/ automobile sales consultant, review of inpatient medication list patient is status post permanent pacemaker insertion. Feeling better. Offers no new complaints. Tolerating antibiotic without apparent difficulty. All Other Systems: Reviewed and Negative Medications Current Inpatient Medications Medications (Trade) Dose Ordered Sig/Daryl Route Start Time Stop Time Status Last Admin Dose Admin Acetaminophen (Tylenol Tab) 650 mg Q4H PRN PO 09/28/17 19:00 10/28/17 18:59 09/30/17 04:04 650 MG Lorazepam (Ativan Tab) 0.5 mg Q4H PRN PO 09/28/17 19:00 10/28/17 18:59 Lorazepam (Ativan Inj) 0.5 mg Q4H PRN IV 09/28/17 19:00 10/28/17 18:59 Nitroglycerin (Nitrostat Tab) 0.4 mg UD PRN SL 09/28/17 19:00 10/28/17 18:59 Ranitidine HCl (zANTac TAB) 150 mg BID PO 09/28/17 21:00 10/28/17 20:59 09/29/17 20:13 150 MG Morphine Sulfate (MoRPHine SULFATE INJ) 2 mg Q2H PRN IV 09/28/17 19:00 10/12/17 18:59 Atorvastatin Calcium (Lipitor Tab) 10 mg QPM PO 09/28/17 21:00 10/28/17 20:59 09/29/17 20:12 10 MG Gabapentin (Neurontin Cap) 100 mg BID PO 09/28/17 21:00 10/28/17 20:59 09/29/17 20:13 100 MG Venlafaxine HCl (effeXOR EXTENDED REL CAP) 150 mg QPM PO 09/28/17 21:00 10/28/17 20:59 09/29/17 20:13 150 MG Venlafaxine HCl (effeXOR EXTENDED REL CAP) 75 mg QPM PO 09/28/17 21:00 10/28/17 20:59 09/29/17 20:13 75 MG Warfarin Sodium (Coumadin Tab) 10 mg MoTuThFrSa@1600 PO 09/29/17 16:00 10/29/17 15:59 Future hold Ketotifen Fumarate (Zaditor 0.025% Op Soln) 1 drops Q12 PRN OP 09/28/17 19:00 10/28/17 18:59 Insulin Aspart (novoLOG ASPART) SLIDING SCALE PARAMETER ACHS SC 09/28/17 21:00 10/28/17 20:59 Glucose (Glucose 40% Gel) 15-30 GRAMS 15 GRAMS... UD PRN PO 09/28/17 20:30 10/28/17 20:29 Glucose (Glucose Chew Tab) 4-8 Tablets 4 Tabl... UD PRN PO 09/28/17 20:30 10/28/17 20:29 Dextrose (Dextrose 50% 50ML Syringe) 25-50ML OF 50% DW IV FOR... UD PRN IV 09/28/17 20:30 10/28/17 20:29 Glucagon (Glucagon Inj) 1 mg UD PRN SQ 09/28/17 20:30 10/28/17 20:29 Ceftriaxone Sodium 2000 mg/ Dextrose 70 ml @ 100 mls/hr DAILY@2200 IV 09/28/17 22:00 10/08/17 21:59 09/29/17 21:12 100 MLS/HR Cefazolin Sodium 10 ml @ 2.5 mls/min Q8H IV 09/30/17 19:00 10/01/17 03:03 Oxycodone HCl (Roxicodone Immediate Rel Tab) 5 mg Q6 PRN PO 09/30/17 17:15 10/14/17 17:14 Warfarin Sodium (Coumadin Tab) 11 mg SuWe@1600 PO 10/02/17 16:00 11/01/17 15:59 Objective Vital Signs Date Time Temp Pulse Resp B/P (MAP) Pulse Ox O2 Delivery O2 Flow Rate FiO2 09/30/17 17:30 93 20 149/101 (117) 95 Room Air 93 09/30/17 17:30 91 Room Air 09/30/17 17:19 100 16 168/96 (120) 94 Nasal Cannula 3 09/30/17 17:05 101 16 162/96 (118) 94 Nasal Cannula 3 09/30/17 14:00 70 18 141/65 (90) 93 Room Air 70 09/30/17 12:00 95 Room Air 09/30/17 12:00 70 18 147/75 (99) 93 Room Air 70 09/30/17 10:00 70 18 131/88 (102) 95 Room Air 70 09/30/17 08:00 37.0 70 20 128/64 (85) 92 Room Air 70 09/30/17 08:00 92 Room Air 09/30/17 06:01 36.9 70 16 95 70 09/30/17 06:00 70 20 95 09/30/17 05:45 70 19 94 09/30/17 05:30 70 17 92 09/30/17 05:15 70 21 96 09/30/17 05:01 70 18 102/64 (77) 96 09/30/17 05:00 71 22 96 09/30/17 04:00 CPAP 2.0 09/30/17 04:00 36.6 70 20 120/57 (78) 94 70 09/30/17 03:00 70 16 109/74 (86) 94 09/30/17 02:00 36.9 70 20 126/61 (82) 96 09/30/17 01:01 70 18 126/64 (84) 95 09/30/17 01:00 70 93 09/30/17 00:45 70 09/30/17 00:30 70 09/30/17 00:15 70 09/30/17 00:00 CPAP 2.0 09/30/17 00:00 70 23 126/60 (82) 09/30/17 00:00 36.7 70 18 126/60 (82) 96 CPAP 2.0 70 09/29/17 23:45 70 09/29/17 23:30 70 09/29/17 23:15 70 09/29/17 23:01 70 17 138/70 (92) 96 70 09/29/17 22:45 70 09/29/17 22:19 72 94 2.0 09/29/17 22:00 70 22 115/67 (83) 92 CPAP 2.0 09/29/17 20:00 93 Room Air 09/29/17 20:00 37.2 70 19 151/72 (98) 93 Room Air Physical Exam General Appearance: WD/WN, no apparent distress Eyes: normal inspection, EOMI, sclerae normal ENT: normal ENT inspection, pharynx normal Neck: supple, no adenopathy, thyroid normal, trachea midline Respiratory/Chest: chest non-tender, lungs clear, normal breath sounds, no respiratory distress Cardiovascular: regular rate, rhythm, no gallop, no murmur Abdomen: normal bowel sounds, non tender, soft, no organomegaly Extremities: non-tender, no calf tenderness Neurologic/Psychiatric: alert, oriented x 3 Skin: normal color, no rash Lymphatic: no adenopathy Laboratory Results Last 24 Hours Test 09/29/17 19:49 09/30/17 05:29 09/30/17 06:42 09/30/17 11:05 Bedside Glucose 135 mg/dl 105 mg/dl 103 mg/dl White Blood Count 8.67 K/uL Red Blood Count 4.01 M/uL Hemoglobin 12.7 g/dL Hematocrit 39.0 % Mean Corpuscular Volume 97.3 fL Mean Corpuscular Hemoglobin 31.7 pg Mean Corpuscular Hemoglobin Concent 32.6 g/dl Platelet Count 164 K/uL Mean Platelet Volume 12.2 fL Neutrophils (%) (Auto) 65.1 % Lymphocytes (%) (Auto) 22.3 % Monocytes (%) (Auto) 9.5 % Eosinophils (%) (Auto) 2.4 % Basophils (%) (Auto) 0.5 % Neutrophils # (Auto) 5.65 K/uL Lymphocytes # (Auto) 1.93 K/uL Monocytes # (Auto) 0.82 K/uL Eosinophils # (Auto) 0.21 K/uL Basophils # (Auto) 0.04 K/uL RDW Standard Deviation 48.6 fL RDW Coefficient of Variation 13.6 % Immature Granulocyte % (Auto) 0.2 % Immature Granulocyte # (Auto) 0.02 K/uL Prothrombin Time 16.1 SECONDS Prothromb Time International Ratio 1.5 Sodium Level 141 mmol/L Potassium Level 4.8 mmol/L Chloride Level 108 mmol/L Carbon Dioxide Level 28 mmol/L Anion Gap 5.0 mmol/L Blood Urea Nitrogen 14 mg/dl Creatinine 1.00 mg/dl Est Creatinine Clear Calc Drug Dose 59.7 ml/min Estimated GFR () 62.9 Estimated GFR (Non- 54.3 BUN/Creatinine Ratio 14.4 Random Glucose 122 mg/dl Calcium Level 8.7 mg/dl Phosphorus Level 3.2 mg/dl Magnesium Level 2.2 mg/dl Assessment and Plan (1) Encounter for management of temporary pacemaker Status: Acute (2) Dyspnea on exertion Status: Acute (3) Positive Lyme disease serology Status: Acute (4) Complete heart block Status: Acute 77-year-old female with heart block now status post temporary pacemaker, with positive IgM screening serology for Lyme disease. Patient continue on IV ceftriaxone for now, likely can change to oral doxycycline in next day or so.
[2017-09-30] MEDS: CEFAZOLIN 2000MG IV PUSH 10 ML IV SCH (19:34)
[2017-09-30] MEDS: ATORVASTATIN 10 MG TAB PO SCH (19:35)
[2017-09-30] MEDS: VENLAFAXINE HCL XR 75 MG CAPXR PO SCH (19:35)
[2017-09-30] MEDS: VENLAFAXINE HCL XR 150 MG CAPXR PO SCH (19:35)
--- NOTE | 2017-09-30 21:19 | Progress Note ---
Subjective Date of Service: Sep 30, 2017. Subjective Pt evaluation today including: conversation w/ patient, conversation w/ family , physical exam, lab review, conversation w/ decorator consultant, review of inpatient medication list Pain: no pain PO Intake: NPO for PPM Voiding: no voiding problems patient feeling well, no acute issues today, awaiting PPM when I examined her with her family at the bedside reviewed labs, stable, no IgM titer results back yet reviewed PPM implantation report, no complications, tolerated well Problem List Medical Problems: (1) Complete heart block Status: Acute (2) Dyspnea on exertion Status: Acute (3) Encounter for management of temporary pacemaker Status: Acute (4) Positive Lyme disease serology Status: Acute (5) Precordial chest pain Status: Acute (6) Shortness of breath Status: Acute Review of Systems All Other Systems: Reviewed and Negative Medications Current Inpatient Medications Medications (Trade) Dose Ordered Sig/Daryl Route Start Time Stop Time Status Last Admin Dose Admin Acetaminophen (Tylenol Tab) 650 mg Q4H PRN PO 09/28/17 19:00 10/28/17 18:59 09/30/17 04:04 650 MG Lorazepam (Ativan Tab) 0.5 mg Q4H PRN PO 09/28/17 19:00 10/28/17 18:59 Lorazepam (Ativan Inj) 0.5 mg Q4H PRN IV 09/28/17 19:00 10/28/17 18:59 Nitroglycerin (Nitrostat Tab) 0.4 mg UD PRN SL 09/28/17 19:00 10/28/17 18:59 Ranitidine HCl (zANTac TAB) 150 mg BID PO 09/28/17 21:00 10/28/17 20:59 09/30/17 19:36 150 MG Morphine Sulfate (MoRPHine SULFATE INJ) 2 mg Q2H PRN IV 09/28/17 19:00 10/12/17 18:59 Atorvastatin Calcium (Lipitor Tab) 10 mg QPM PO 09/28/17 21:00 10/28/17 20:59 09/30/17 19:35 10 MG Gabapentin (Neurontin Cap) 100 mg BID PO 09/28/17 21:00 10/28/17 20:59 09/30/17 19:36 100 MG Venlafaxine HCl (effeXOR EXTENDED REL CAP) 150 mg QPM PO 09/28/17 21:00 12/15/17 20:59 09/30/17 19:35 150 MG Venlafaxine HCl (effeXOR EXTENDED REL CAP) 75 mg QPM PO 09/28/17 21:00 10/28/17 20:59 09/30/17 19:35 75 MG Warfarin Sodium (Coumadin Tab) 10 mg MoTuThFrSa@1600 PO 09/29/17 16:00 10/29/17 15:59 Future hold Ketotifen Fumarate (Zaditor 0.025% Op Soln) 1 drops Q12 PRN OP 09/28/17 19:00 10/28/17 18:59 Insulin Aspart (novoLOG ASPART) SLIDING SCALE PARAMETER ACHS SC 09/28/17 21:00 10/28/17 20:59 Glucose (Glucose 40% Gel) 15-30 GRAMS 15 GRAMS... UD PRN PO 09/28/17 20:30 10/28/17 20:29 Glucose (Glucose Chew Tab) 4-8 Tablets 4 Tabl... UD PRN PO 09/28/17 20:30 10/28/17 20:29 Dextrose (Dextrose 50% 50ML Syringe) 25-50ML OF 50% DW IV FOR... UD PRN IV 09/28/17 20:30 10/28/17 20:29 Glucagon (Glucagon Inj) 1 mg UD PRN SQ 09/28/17 20:30 10/28/17 20:29 Ceftriaxone Sodium 2000 mg/ Dextrose 70 ml @ 100 mls/hr DAILY@2200 IV 09/28/17 22:00 10/08/17 21:59 09/29/17 21:12 100 MLS/HR Cefazolin Sodium 10 ml @ 2.5 mls/min Q8H IV 09/30/17 19:00 10/01/17 03:03 09/30/17 19:34 2.5 MLS/MIN Oxycodone HCl (Roxicodone Immediate Rel Tab) 5 mg Q6 PRN PO 09/30/17 17:15 10/14/17 17:14 Warfarin Sodium (Coumadin Tab) 11 mg SuWe@1600 PO 10/02/17 16:00 11/01/17 15:59 Objective Vital Signs Date Time Temp Pulse Resp B/P (MAP) Pulse Ox O2 Delivery O2 Flow Rate FiO2 09/30/17 20:01 37.0 90 25 140/51 (80) 94 Room Air 09/30/17 20:00 Room Air 09/30/17 19:44 90 15 139/69 (92) 94 Room Air 09/30/17 19:02 93 16 185/66 (105) 92 Room Air 09/30/17 17:30 93 20 149/101 (117) 95 Room Air 93 09/30/17 17:30 91 Room Air 09/30/17 17:19 100 16 168/96 (120) 94 Nasal Cannula 3 09/30/17 17:05 101 16 162/96 (118) 94 Nasal Cannula 3 09/30/17 14:00 70 18 141/65 (90) 93 Room Air 70 09/30/17 12:00 95 Room Air 09/30/17 12:00 70 18 147/75 (99) 93 Room Air 70 09/30/17 10:00 70 18 131/88 (102) 95 Room Air 70 09/30/17 08:00 37.0 70 20 128/64 (85) 92 Room Air 70 09/30/17 08:00 92 Room Air 09/30/17 06:01 36.9 70 16 95 70 09/30/17 06:00 70 20 95 09/30/17 05:45 70 19 94 09/30/17 05:30 70 17 92 09/30/17 05:15 70 21 96 09/30/17 05:01 70 18 102/64 (77) 96 09/30/17 05:00 71 22 96 09/30/17 04:00 CPAP 2.0 09/30/17 04:00 36.6 70 20 120/57 (78) 94 70 09/30/17 03:00 70 16 109/74 (86) 94 09/30/17 02:00 36.9 70 20 126/61 (82) 96 09/30/17 01:01 70 18 126/64 (84) 95 09/30/17 01:00 70 93 09/30/17 00:45 70 09/30/17 00:30 70 09/30/17 00:15 70 09/30/17 00:00 CPAP 2.0 09/30/17 00:00 70 23 126/60 (82) 09/30/17 00:00 36.7 70 18 126/60 (82) 96 CPAP 2.0 70 09/29/17 23:45 70 09/29/17 23:30 70 09/29/17 23:15 70 09/29/17 23:01 70 17 138/70 (92) 96 70 09/29/17 22:45 70 09/29/17 22:19 72 94 2.0 09/29/17 22:00 70 22 115/67 (83) 92 CPAP 2.0 Physical Exam General Appearance: no apparent distress, + obese Eyes: normal inspection, EOMI ENT: normal ENT inspection, hearing grossly normal, pharynx normal Neck: supple, no adenopathy, no JVD, trachea midline Respiratory/Chest: chest non-tender, lungs clear, normal breath sounds, no respiratory distress, no accessory muscle use Cardiovascular: regular rate, rhythm, no edema, no gallop, no JVD, no murmur Abdomen: normal bowel sounds, non tender, soft, no organomegaly, no pulsatile mass Extremities: normal range of motion, non-tender, normal inspection, no pedal edema, no calf tenderness, pelvis stable Neurologic/Psychiatric: cna hospice II-XII nml as tested, no motor/sensory deficits, alert, normal mood/affect, oriented x 3 Skin: normal color, warm/dry, no rash Laboratory Results Last 24 Hours Test 09/30/17 05:29 09/30/17 06:42 09/30/17 11:05 White Blood Count 8.67 K/uL Red Blood Count 4.01 M/uL Hemoglobin 12.7 g/dL Hematocrit 39.0 % Mean Corpuscular Volume 97.3 fL Mean Corpuscular Hemoglobin 31.7 pg Mean Corpuscular Hemoglobin Concent 32.6 g/dl Platelet Count 164 K/uL Mean Platelet Volume 12.2 fL Neutrophils (%) (Auto) 65.1 % Lymphocytes (%) (Auto) 22.3 % Monocytes (%) (Auto) 9.5 % Eosinophils (%) (Auto) 2.4 % Basophils (%) (Auto) 0.5 % Neutrophils # (Auto) 5.65 K/uL Lymphocytes # (Auto) 1.93 K/uL Monocytes # (Auto) 0.82 K/uL Eosinophils # (Auto) 0.21 K/uL Basophils # (Auto) 0.04 K/uL RDW Standard Deviation 48.6 fL RDW Coefficient of Variation 13.6 % Immature Granulocyte % (Auto) 0.2 % Immature Granulocyte # (Auto) 0.02 K/uL Prothrombin Time 16.1 SECONDS Prothromb Time International Ratio 1.5 Sodium Level 141 mmol/L Potassium Level 4.8 mmol/L Chloride Level 108 mmol/L Carbon Dioxide Level 28 mmol/L Anion Gap 5.0 mmol/L Blood Urea Nitrogen 14 mg/dl Creatinine 1.00 mg/dl Est Creatinine Clear Calc Drug Dose 59.7 ml/min Estimated GFR () 62.9 Estimated GFR (Non- 54.3 BUN/Creatinine Ratio 14.4 Random Glucose 122 mg/dl Calcium Level 8.7 mg/dl Phosphorus Level 3.2 mg/dl Magnesium Level 2.2 mg/dl Bedside Glucose 105 mg/dl 103 mg/dl Assessment and Plan 77 yo female with h/o DVT/PE, DARRELL, DM, presented with dyspnea on exertion, presyncope, recent fever/chills, found to be in complete AV block, HR in 20-30's - Complete AV block: temp pacer placed on 09/28, all her symptoms improved dual chamber permanent pacemaker on 09/30, no complications - 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
[2017-09-30] MEDS: CEFTRIAXONE SOD INJ 2,000 MG in DEXTROSE 5% 50ML 50 ML IV SCH (21:58)
[2017-09-30] MEDS: OXYCODONE HCL IR 5 MG TAB (IMMEDIATE RELEASE) PO PRN (22:58)
[2017-10-01] VITALS (13 sets, daily range): BP systolic 98–161; BP diastolic 63–95; PULSE 79–95; TEMP 36.6–37.3; O2SAT 91–95
[2017-10-01] MEDS: CEFAZOLIN 2000MG IV PUSH 10 ML IV SCH (03:35)
[2017-10-01 06:00] LABS: HEMATOCRIT 38.6 % (37-47); MEAN CELL VOLUME 97.2 fL (80-100); MEAN CORPUSCULAR HEMOGLOBIN 32.7 pg (25-34); MEAN CORPUSCULAR HGB CONC 33.7 g/dl (32-36); MEAN PLATELET VOLUME 11.7 fL (7.4-10.4); PLATELET COUNT 176 K/uL (130-400); RED BLOOD COUNT 3.97 M/uL (4.2-5.4); WHITE BLOOD COUNT 8.99 K/uL (4.8-10.8)
[2017-10-01] MEDS ORDERED: CEFAZOLIN SOD 1000MG/5 ML IV PUSH IV SCH (06:00)
[2017-10-01 06:09] LABS: INR 1.3 (0.9-1.1); PROTHROMBIN TIME (PATIENT) 13.9 SECONDS (9.0-12.0)
[2017-10-01 06:28] LABS: BUN/CREATININE RATIO 13.9 (10-20); CALCIUM 8.6 mg/dl (8.5-10.1); CREATININE 1.05 mg/dl (0.60-1.20); MAGNESIUM 2.2 mg/dl (1.8-2.4); PHOSPHORUS 3.3 mg/dl (2.5-4.9); POTASSIUM 4.4 mmol/L (3.5-5.1)
[2017-10-01] MEDS: RANITIDINE HCL 150 MG TAB PO SCH ×2 (07:27→19:47)
[2017-10-01] MEDS: GABAPENTIN 100 MG CAP PO SCH ×2 (07:27→19:47)
[2017-10-01] MEDS: INSULIN ASPART 100 UNITS/ML 3 ML PEN SC SCH ×4 (07:28→21:37)
--- NOTE | 2017-10-01 07:57 | Cardiology Follow-Up ---
Subjective Date of Service: Oct 01, 2017. History of Present Illness The patient is feeling well this morning. She has some mild tenderness at the pacemaker implant site with palpation. She denies significant breathing trouble currently he has been up in a chair and is in breakfast.. Social History Smoking Status: Never Smoker History of Alcohol Use: No Review of Systems Cardiac: + chest pain Per HPI Objective Vital Signs Past 12 Hours Date Time Temp Pulse Resp B/P (MAP) Pulse Ox O2 Delivery O2 Flow Rate FiO2 10/01/17 06:00 81 20 129/70 (89) 95 CPAP 2.0 10/01/17 04:00 37.2 79 22 132/63 (86) 95 CPAP 2.0 10/01/17 04:00 CPAP 2.0 10/01/17 03:00 79 21 120/67 (84) 95 CPAP 2.0 10/01/17 02:18 89 93 2.0 10/01/17 02:00 82 21 137/70 (92) 93 CPAP 2.0 10/01/17 01:01 86 22 144/76 (98) 94 CPAP 2.0 10/01/17 00:01 CPAP 2.0 10/01/17 00:00 37.3 88 21 139/68 (91) 93 CPAP 2.0 09/30/17 23:00 89 16 143/68 (93) 96 CPAP 2.0 09/30/17 23:00 87 94 2.0 09/30/17 22:01 89 18 138/74 (95) 95 Room Air 09/30/17 21:01 89 22 152/72 (98) 90 Room Air 09/30/17 20:01 37.0 90 25 140/51 (80) 94 Room Air 09/30/17 20:00 Room Air Last Recorded Weight-Kilograms: 123.600 Physical Exam She is alert and oriented x3. Mood affect appear normal. She answered all questions appropriately. Morbidly obese The device implant site has minimal ecchymosis. There is no significant hematoma. There is no drainage.. Data Laboratory Results: Last 24 Hours Test 09/30/17 11:05 09/30/17 21:07 10/01/17 05:36 Bedside Glucose 103 mg/dl 109 mg/dl White Blood Count 8.99 K/uL Red Blood Count 3.97 M/uL Hemoglobin 13.0 g/dL Hematocrit 38.6 % Mean Corpuscular Volume 97.2 fL Mean Corpuscular Hemoglobin 32.7 pg Mean Corpuscular Hemoglobin Concent 33.7 g/dl RDW Standard Deviation 47.8 fL RDW Coefficient of Variation 13.4 % Platelet Count 176 K/uL Mean Platelet Volume 11.7 fL Prothrombin Time 13.9 SECONDS Prothromb Time International Ratio 1.3 Sodium Level 140 mmol/L Potassium Level 4.4 mmol/L Chloride Level 105 mmol/L Carbon Dioxide Level 28 mmol/L Anion Gap 7.0 mmol/L Blood Urea Nitrogen 15 mg/dl Creatinine 1.05 mg/dl Est Creatinine Clear Calc Drug Dose 56.8 ml/min Estimated GFR () 59.3 Estimated GFR (Non- 51.2 BUN/Creatinine Ratio 13.9 Random Glucose 95 mg/dl Calcium Level 8.6 mg/dl Phosphorus Level 3.3 mg/dl Magnesium Level 2.2 mg/dl Imaging: Chest x-ray demonstrated stable lead placement without evidence of complication. Telemetry reviewed: A sensed and V paced rhythm I performed a complete device interrogations morning which revealed normal sensing on the atrial lead. There were no intrinsic R-waves for sensing on the ventricular lead. Normal pacing threshold. Normal device function. Assessment and Plan 1. Complete heart block: Patient underwent successful implantation of dual- chamber permanent pacemaker yesterday. A decision was made to implant the device based on her history of conduction disease and patient preference. While there is still some possibility that her conduction worsened in the setting of Lyme carditis, she has had no notable improvement in her conduction over 3 days of treatment. She has a well documented history of both right and left bundle branch block suggesting an element of significant conduction disease leading up to this event. 2. Valvular heart disease: Mild mitral regurgitation 2016. She does have a murmur on exam but this is not likely telephone service representative of any aortic valvular disease. No urgent need for re-evaluation. Follow-up: From a device standpoint the patient is stable for discharge. She should keep the wound dry and Steri-Strips intact until follow-up in our clinic next week. She should refrain from lifting left arm above her shoulder or behind her neck for 6 weeks. She will be contacted on Tuesday regarding a follow -up appointment in our clinic for wound evaluation next week. No contraindication to warfarin at this point.
--- NOTE | 2017-10-01 08:08 | DIAGNOSTIC IMAGING REPORT ---
CHEST 2 VIEWS ROUTINE HISTORY: EXACT TIME ORDERED Evaluate for pneumothorax and lead placement COMPARISON: Chest 09/28/2017. FINDINGS: Interval placement of a left-sided dual-chamber pacemaker. The leads appear intact. No pneumothorax. Trace bilateral pleural effusions. The lungs are clear. The heart is top normal in size. IMPRESSION: 1. Left-sided dual-chamber pacemaker. The leads appear intact. No pneumothorax. 2. Trace bilateral pleural effusions. Electronically signed by: Merrick Latif M.D. 10/01/2017 8:07 AM Dictated Date/Time: 10/01/2017 8:06 AM
[2017-10-01] MEDS: OXYCODONE HCL IR 5 MG TAB (IMMEDIATE RELEASE) PO PRN ×2 (08:53→15:27)
[2017-10-01] MEDS: FUROSEMIDE 20 MG TAB PO SCH (08:53)
[2017-10-01] MEDS ORDERED: CEFAZOLIN 3000MG IV PUSH 15 ML IV SCH (10:00)
--- NOTE | 2017-10-01 10:31 | Critical Care Progress Note ---
Critical Care Progress Note Date of Service Oct 01, 2017. Attending Dr. Hernandez Subjective S/p PPM insertion yesterday, functioning well. Up in chair, tolerating diet Objective GENERAL: alert, well appearing, obese, sitting in bed, no acute distress, non- toxic HEAD: NC/AT. No sinus tenderness. EYES: Normal sclera and conjunctiva OROPHARYNX: No exudate, no erythema. Lips, buccal mucosa, and tongue normal and mucous membranes are moist NECK: Supple, no adenopathy, non-tender LUNGS: Normal chest wall mechanics, no reproducible tenderness on palpation. CTAB, with good air entry. No crepitations, crackles, or wheezes CHEST: Left upper chest pacemaker wound is clean, no discharge, small amount of swelling, but no induration HEART: RRR, S1 and S2 normal, grade 2 murmur heard at right upper sternal edge. No rubs or gallops appreciated. ABDOMEN: Soft, non-tender, normo-active bowel sounds, no masses, no rebound or guarding. SKIN: Warm, pink, dry. No erythema, rashes, or bruising. EXTREMITIES: Grossly normal. Moving all 4 limbs, strength 5/5. B/l LE edema. NEURO: Alert, Ox3. No focal deficits. Normal sensorium to light touch, cranial nerves II-XII grossly intact, normal speech. PSYCH: Mood and affect appropriate. Current SOFA Score SOFA Score Response (Comments) Value Platelets (x10) > 150 0 Bilirubin (mg/dL) < 1.2 0 Contreras Coma Score 15 0 Level of Hypotension No Hypotension 0 Creatinine (mg/dL) < 1.2 0 Total 0 Assessment & Plan (1) Encounter for management of temporary pacemaker (2) Dyspnea on exertion (3) Positive Lyme disease serology (4) Complete heart block Patient with new onset complete heart block, prior history of LBBB. Positive Lyme IgM. Etiology of heart block could be related to recent Lyme infection but may also be due to intrinsic conduction disease. S/p right femoral transvenous pacemaker, no improvement at all with Abx, permanent pacemaker inserted yesterday, dual lead. Also has h/o PE DARRELL Chronic hypoxic respiratory failure, on home O2. Only uses O2 at noght, should wear it during activities, but refuses On Rocephin 2 gm daily for suspected Lyme disease. F/u [place]ot Nocturnal CPAP, nocturnal O2. I recommended her to use O2 with exercise. During our walk test, she desaturated easily to 87%. Will check ABG, may also have a component of hypoventilation, her BMI is 51. If she has CO2 retention, will need BIPAP Recommend pulmonary follow up as outpatient. She used to follow up with Dr Yates years ago, but now her primary has jojo managing the CPAP therapy and oxygen therapy Coumadin resumed last night Will start her on Lasix 20 mg PO daily for fluid overload with LE edema. She used to be on Lasix as well at some point, but not anymore. Recommend labs as outpatient next week, check the potassium On Aspart coverage. May resume metformin Counseled her for weight loss, she is very receptive May be transferred to floor from a critical care standpoint. Critical care time spent evaluating the patient, reviewing the chart, discussing with consultants, greater than 25 minutes Documented By: Huber Hernandez MD Consults & Procedures Consultants: Cardiology Critical care Procedures: Temporary pacer via right femoral artery Data Medications: Current Inpatient Medications Medications (Trade) Dose Ordered Sig/Daryl Route Start Time Stop Time Status Last Admin Dose Admin Acetaminophen (Tylenol Tab) 650 mg Q4H PRN PO 09/28/17 19:00 10/28/17 18:59 09/30/17 04:04 650 MG Lorazepam (Ativan Tab) 0.5 mg Q4H PRN PO 09/28/17 19:00 10/28/17 18:59 Lorazepam (Ativan Inj) 0.5 mg Q4H PRN IV 09/28/17 19:00 10/28/17 18:59 Nitroglycerin (Nitrostat Tab) 0.4 mg UD PRN SL 09/28/17 19:00 10/28/17 18:59 Ranitidine HCl (zANTac TAB) 150 mg BID PO 09/28/17 21:00 10/28/17 20:59 10/01/17 07:27 150 MG Morphine Sulfate (MoRPHine SULFATE INJ) 2 mg Q2H PRN IV 09/28/17 19:00 10/12/17 18:59 Atorvastatin Calcium (Lipitor Tab) 10 mg QPM PO 09/28/17 21:00 10/28/17 20:59 09/30/17 19:35 10 MG Gabapentin (Neurontin Cap) 100 mg BID PO 09/28/17 21:00 10/28/17 20:59 10/01/17 07:27 100 MG Venlafaxine HCl (effeXOR EXTENDED REL CAP) 150 mg QPM PO 09/28/17 21:00 10/28/17 20:59 09/30/17 19:35 150 MG Venlafaxine HCl (effeXOR EXTENDED REL CAP) 75 mg QPM PO 09/28/17 21:00 10/28/17 20:59 09/30/17 19:35 75 MG Warfarin Sodium (Coumadin Tab) 10 mg MoTuThFrSa@1600 PO 09/29/17 16:00 10/29/17 15:59 Future hold Ketotifen Fumarate (Zaditor 0.025% Op Soln) 1 drops Q12 PRN OP 09/28/17 19:00 10/28/17 18:59 Insulin Aspart (novoLOG ASPART) SLIDING SCALE PARAMETER ACHS SC 09/28/17 21:00 10/28/17 20:59 Glucose (Glucose 40% Gel) 15-30 GRAMS 15 GRAMS... UD PRN PO 09/28/17 20:30 10/28/17 20:29 Glucose (Glucose Chew Tab) 4-8 Tablets 4 Tabl... UD PRN PO 09/28/17 20:30 10/28/17 20:29 Dextrose (Dextrose 50% 50ML Syringe) 25-50ML OF 50% DW IV FOR... UD PRN IV 09/28/17 20:30 10/28/17 20:29 Glucagon (Glucagon Inj) 1 mg UD PRN SQ 09/28/17 20:30 10/28/17 20:29 Ceftriaxone Sodium 2000 mg/ Dextrose 70 ml @ 100 mls/hr DAILY@2200 IV 09/28/17 22:00 10/08/17 21:59 09/30/17 21:58 100 MLS/HR Oxycodone HCl (Roxicodone Immediate Rel Tab) 5 mg Q6 PRN PO 09/30/17 17:15 10/14/17 17:14 10/01/17 08:53 5 MG Warfarin Sodium (Coumadin Tab) 11 mg SuWe@1600 PO 10/02/17 16:00 11/01/17 15:59 Furosemide (Lasix Tab) 20 mg QAM PO 10/01/17 09:00 10/31/17 08:59 10/01/17 08:53 20 MG Vital Signs: Date Time Temp Pulse Resp B/P (MAP) Pulse Ox O2 Delivery O2 Flow Rate FiO2 10/01/17 08:00 36.9 86 20 98/66 (77) 93 Room Air 10/01/17 06:00 81 20 129/70 (89) 95 CPAP 2.0 10/01/17 04:00 37.2 79 22 132/63 (86) 95 CPAP 2.0 10/01/17 04:00 CPAP 2.0 10/01/17 03:00 79 21 120/67 (84) 95 CPAP 2.0 10/01/17 02:18 89 93 2.0 10/01/17 02:00 82 21 137/70 (92) 93 CPAP 2.0 10/01/17 01:01 86 22 144/76 (98) 94 CPAP 2.0 10/01/17 00:01 CPAP 2.0 10/01/17 00:00 37.3 88 21 139/68 (91) 93 CPAP 2.0 09/30/17 23:00 89 16 143/68 (93) 96 CPAP 2.0 09/30/17 23:00 87 94 2.0 09/30/17 22:01 89 18 138/74 (95) 95 Room Air 09/30/17 21:01 89 22 152/72 (98) 90 Room Air 09/30/17 20:01 37.0 90 25 140/51 (80) 94 Room Air 09/30/17 20:00 Room Air 09/30/17 19:44 90 15 139/69 (92) 94 Room Air 09/30/17 19:02 93 16 185/66 (105) 92 Room Air 09/30/17 17:30 93 20 149/101 (117) 95 Room Air 93 09/30/17 17:30 91 Room Air 09/30/17 17:19 100 16 168/96 (120) 94 Nasal Cannula 3 09/30/17 17:05 101 16 162/96 (118) 94 Nasal Cannula 3 09/30/17 14:00 70 18 141/65 (90) 93 Room Air 70 09/30/17 12:00 95 Room Air 09/30/17 12:00 70 18 147/75 (99) 93 Room Air 70 Laboratory Results: Last 24 Hours Test 09/30/17 11:05 09/30/17 21:07 10/01/17 05:36 Bedside Glucose 103 mg/dl 109 mg/dl White Blood Count 8.99 K/uL Red Blood Count 3.97 M/uL Hemoglobin 13.0 g/dL Hematocrit 38.6 % Mean Corpuscular Volume 97.2 fL Mean Corpuscular Hemoglobin 32.7 pg Mean Corpuscular Hemoglobin Concent 33.7 g/dl RDW Standard Deviation 47.8 fL RDW Coefficient of Variation 13.4 % Platelet Count 176 K/uL Mean Platelet Volume 11.7 fL Prothrombin Time 13.9 SECONDS Prothromb Time International Ratio 1.3 Sodium Level 140 mmol/L Potassium Level 4.4 mmol/L Chloride Level 105 mmol/L Carbon Dioxide Level 28 mmol/L Anion Gap 7.0 mmol/L Blood Urea Nitrogen 15 mg/dl Creatinine 1.05 mg/dl Est Creatinine Clear Calc Drug Dose 56.8 ml/min Estimated GFR () 59.3 Estimated GFR (Non- 51.2 BUN/Creatinine Ratio 13.9 Random Glucose 95 mg/dl Calcium Level 8.6 mg/dl Phosphorus Level 3.3 mg/dl Magnesium Level 2.2 mg/dl
[2017-10-01 11:48] LABS: ISTAT ALLEN TEST Pass; ISTAT ARTERIAL BLOOD GAS HCO3 22 meq/L (19-24); ISTAT ARTERIAL BLOOD GAS PCO2 35 mmHg (35-46); ISTAT ARTERIAL BLOOD GAS PO2 63 mmHg (80-95); ISTAT CARBON DIOXIDE 23 mEq/l (24-31); ISTAT DELIVERY SYSTEM Room Air; ISTAT SITE L Radial
[2017-10-01] MEDS ORDERED: WARFARIN SOD 5 MG TAB PO SCH (16:00)
[2017-10-01 18:35] LABS: EHRLICHIA CHAFF IGG AB <1:64 (<1:64); EHRLICHIA CHAFF IGM AB <1:20 (<1:20)
[2017-10-01 19:35] LABS: ANAPLASMA PHAGOCYTOPHIL DNA Not Detected (Not Detected); ANAPLASMA PHAGOCYTOPHIL IGG <1:64 (<1:64); ANAPLASMA PHAGOCYTOPHIL IGM <1:20 (<1:20)
--- NOTE | 2017-10-01 19:41 | Infectious Disease Progress Nt ---
Progress Note Date of Service Oct 01, 2017. Subjective Pt evaluation today including: conversation w/ patient, physical exam, chart review, lab review, review of studies, conversation w/ cassandra consultant, review of inpatient medication list offers no new complaints today. Remains afebrile. No chest pain. All Other Systems: Reviewed and Negative Medications Current Inpatient Medications Medications (Trade) Dose Ordered Sig/Daryl Route Start Time Stop Time Status Last Admin Dose Admin Acetaminophen (Tylenol Tab) 650 mg Q4H PRN PO 09/28/17 19:00 10/28/17 18:59 09/30/17 04:04 650 MG Lorazepam (Ativan Tab) 0.5 mg Q4H PRN PO 09/28/17 19:00 10/28/17 18:59 Lorazepam (Ativan Inj) 0.5 mg Q4H PRN IV 09/28/17 19:00 10/28/17 18:59 Nitroglycerin (Nitrostat Tab) 0.4 mg UD PRN SL 09/28/17 19:00 10/28/17 18:59 Ranitidine HCl (zANTac TAB) 150 mg BID PO 09/28/17 21:00 10/28/17 20:59 10/01/17 07:27 150 MG Morphine Sulfate (MoRPHine SULFATE INJ) 2 mg Q2H PRN IV 09/28/17 19:00 10/12/17 18:59 Atorvastatin Calcium (Lipitor Tab) 10 mg QPM PO 09/28/17 21:00 10/28/17 20:59 09/30/17 19:35 10 MG Gabapentin (Neurontin Cap) 100 mg BID PO 09/28/17 21:00 10/28/17 20:59 10/01/17 07:27 100 MG Venlafaxine HCl (effeXOR EXTENDED REL CAP) 150 mg QPM PO 09/28/17 21:00 10/28/17 20:59 09/30/17 19:35 150 MG Venlafaxine HCl (effeXOR EXTENDED REL CAP) 75 mg QPM PO 09/28/17 21:00 10/28/17 20:59 09/30/17 19:35 75 MG Warfarin Sodium (Coumadin Tab) 10 mg MoTuThFrSa@1600 PO 09/29/17 16:00 10/29/17 15:59 Future hold 10/01/17 15:19 10 MG Ketotifen Fumarate (Zaditor 0.025% Op Soln) 1 drops Q12 PRN OP 09/28/17 19:00 10/28/17 18:59 Insulin Aspart (novoLOG ASPART) SLIDING SCALE PARAMETER ACHS SC 09/28/17 21:00 10/28/17 20:59 Glucose (Glucose 40% Gel) 15-30 GRAMS 15 GRAMS... UD PRN PO 09/28/17 20:30 10/28/17 20:29 Glucose (Glucose Chew Tab) 4-8 Tablets 4 Tabl... UD PRN PO 09/28/17 20:30 10/28/17 20:29 Dextrose (Dextrose 50% 50ML Syringe) 25-50ML OF 50% DW IV FOR... UD PRN IV 09/28/17 20:30 10/28/17 20:29 Glucagon (Glucagon Inj) 1 mg UD PRN SQ 09/28/17 20:30 10/28/17 20:29 Ceftriaxone Sodium 2000 mg/ Dextrose 70 ml @ 100 mls/hr DAILY@2200 IV 09/28/17 22:00 10/08/17 21:59 09/30/17 21:58 100 MLS/HR Oxycodone HCl (Roxicodone Immediate Rel Tab) 5 mg Q6 PRN PO 09/30/17 17:15 10/14/17 17:14 10/01/17 15:27 5 MG Warfarin Sodium (Coumadin Tab) 11 mg SuWe@1600 PO 10/02/17 16:00 11/01/17 15:59 Furosemide (Lasix Tab) 20 mg QAM PO 10/01/17 09:00 10/31/17 08:59 10/01/17 08:53 20 MG HISTORY: EXACT TIME ORDERED Evaluate for pneumothorax and lead placement COMPARISON: Chest 09/28/2017. FINDINGS: Interval placement of a left-sided dual-chamber pacemaker. The leads appear intact. No pneumothorax. Trace bilateral pleural effusions. The lungs are clear. The heart is top normal in size. IMPRESSION: 1. Left-sided dual-chamber pacemaker. The leads appear intact. No pneumothorax. 2. Trace bilateral pleural effusions. Electronically signed by: Merrick Latif M.D. 10/01/2017 8:07 AM Dictated Date/Time: 10/01/2017 8:06 AM The status of this report is Signed. Draft = Not yet reviewed or approved by Radiologist. Signed = Reviewed and approved by Radiologist. <AttendingPhy>Leland Florez D.O.</AttendingPhy> <FamilyPhy>Kulwinder Byers M.D.</FamilyPhy> <PrimaryPhy>Kulwinder Byers M.D.</PrimaryPhy> <UnitNumber> [id number]</UnitNumber> <VisitNumber>[id number]</VisitNumber> <PatientName> SURI ADAIR</PatientName> <DateOfBirth>1940</DateOfBirth> <Location >[facility]</Location> Objective Vital Signs Date Time Temp Pulse Resp B/P (MAP) Pulse Ox O2 Delivery O2 Flow Rate FiO2 10/01/17 16:00 Room Air 10/01/17 13:17 36.6 95 20 161/95 (117) 93 Room Air 10/01/17 13:00 36.6 95 20 93 2.0 10/01/17 10:00 36.9 90 20 114/82 (93) 94 Room Air 10/01/17 08:00 36.9 86 20 98/66 (77) 93 Room Air 10/01/17 06:00 81 20 129/70 (89) 95 CPAP 2.0 10/01/17 04:00 37.2 79 22 132/63 (86) 95 CPAP 2.0 10/01/17 04:00 CPAP 2.0 10/01/17 03:00 79 21 120/67 (84) 95 CPAP 2.0 10/01/17 02:18 89 93 2.0 10/01/17 02:00 82 21 137/70 (92) 93 CPAP 2.0 10/01/17 01:01 86 22 144/76 (98) 94 CPAP 2.0 10/01/17 00:01 CPAP 2.0 10/01/17 00:00 37.3 88 21 139/68 (91) 93 CPAP 2.0 09/30/17 23:00 89 16 143/68 (93) 96 CPAP 2.0 09/30/17 23:00 87 94 2.0 09/30/17 22:01 89 18 138/74 (95) 95 Room Air 09/30/17 21:01 89 22 152/72 (98) 90 Room Air 09/30/17 20:01 37.0 90 25 140/51 (80) 94 Room Air 09/30/17 20:00 Room Air 09/30/17 19:44 90 15 139/69 (92) 94 Room Air Physical Exam General Appearance: WD/WN, no apparent distress Eyes: normal inspection, sclerae normal ENT: normal ENT inspection, pharynx normal Neck: supple ( ), no adenopathy, trachea midline Respiratory/Chest: chest non-tender, lungs clear, normal breath sounds, no respiratory distress Cardiovascular: regular rate, rhythm, no gallop, no murmur Abdomen: normal bowel sounds, non tender, soft, no organomegaly Extremities: non-tender, no calf tenderness Neurologic/Psychiatric: alert, oriented x 3 Skin: normal color, no rash Laboratory Results Last 24 Hours Test 09/30/17 21:07 10/01/17 05:36 10/01/17 11:23 10/01/17 11:33 Bedside Glucose 109 mg/dl 94 mg/dl White Blood Count 8.99 K/uL Red Blood Count 3.97 M/uL Hemoglobin 13.0 g/dL Hematocrit 38.6 % Mean Corpuscular Volume 97.2 fL Mean Corpuscular Hemoglobin 32.7 pg Mean Corpuscular Hemoglobin Concent 33.7 g/dl RDW Standard Deviation 47.8 fL RDW Coefficient of Variation 13.4 % Platelet Count 176 K/uL Mean Platelet Volume 11.7 fL Prothrombin Time 13.9 SECONDS Prothromb Time International Ratio 1.3 Sodium Level 140 mmol/L Potassium Level 4.4 mmol/L Chloride Level 105 mmol/L Carbon Dioxide Level 28 mmol/L Anion Gap 7.0 mmol/L Blood Urea Nitrogen 15 mg/dl Creatinine 1.05 mg/dl Est Creatinine Clear Calc Drug Dose 56.8 ml/min Estimated GFR () 59.3 Estimated GFR (Non- 51.2 BUN/Creatinine Ratio 13.9 Random Glucose 95 mg/dl Calcium Level 8.6 mg/dl Phosphorus Level 3.3 mg/dl Magnesium Level 2.2 mg/dl Blood Gas Sample Site L Radial Bedside Blood Gas pH (LAB) 7.40 Bedside Blood Gas pCO2 (LAB) 35 mmHg Bedside Blood Gas pO2 (LAB) 63 mmHg Bedside Blood Gas HCO3 (LAB) 22 meq/L Bedside Blood Gas Total CO2 23 mEq/l Bedside Blood Gas Base Excess (LAB) -3.0 meq/L Bedside Blood Gas O2 Saturation 92.0 % Francisco Test Pass Oxygen Delivery Device Room Air Test 10/01/17 16:39 Bedside Glucose 97 mg/dl Assessment and Plan (1) Encounter for management of temporary pacemaker Status: Acute (2) Dyspnea on exertion Status: Acute (3) Positive Lyme disease serology Status: Acute (4) Complete heart block Status: Acute 77-year-old female with Complete heart block with positive Lyme serology, now status post permanent pacemaker insertion. consider transition to oral doxycycline to complete treatment for Lyme disease pending final serologies. Will discuss.
[2017-10-01] MEDS: VENLAFAXINE HCL XR 75 MG CAPXR PO SCH (19:47)
[2017-10-01] MEDS: VENLAFAXINE HCL XR 150 MG CAPXR PO SCH (19:48)
[2017-10-01] MEDS: ATORVASTATIN 10 MG TAB PO SCH (19:48)
[2017-10-01] MEDS: CEFTRIAXONE SOD INJ 2,000 MG in DEXTROSE 5% 50ML 50 ML IV SCH (21:37)
[2017-10-02 00:15] VITALS: BP 146/78; PULSE 91; TEMP 36.8; O2SAT 95
[2017-10-02 01:07] VITALS: PULSE 86; O2SAT 94
[2017-10-02 06:57] LABS: INR 1.4 (0.9-1.1); PROTHROMBIN TIME (PATIENT) 15.1 SECONDS (9.0-12.0)
[2017-10-02 07:03] VITALS: BP 117/63; PULSE 77; TEMP 36.4; O2SAT 94
[2017-10-02 07:21] LABS: BUN/CREATININE RATIO 15.9 (10-20); CALCIUM 8.7 mg/dl (8.5-10.1); CREATININE 0.97 mg/dl (0.60-1.20)
[2017-10-02] MEDS: FUROSEMIDE 20 MG TAB PO SCH (09:08)
[2017-10-02] MEDS: GABAPENTIN 100 MG CAP PO SCH (09:08)
[2017-10-02] MEDS: RANITIDINE HCL 150 MG TAB PO SCH (09:08)
[2017-10-02] MEDS: INSULIN ASPART 100 UNITS/ML 3 ML PEN SC SCH ×2 (09:09→12:38)
[2017-10-02] MEDS: OXYCODONE HCL IR 5 MG TAB (IMMEDIATE RELEASE) PO PRN (09:14)
[2017-10-02] MEDS ORDERED: DOXY-300 PO ×2 (11:05)
[2017-10-02] MEDS ORDERED: LSX20 PO ×2 (11:05)
--- NOTE | 2017-10-02 11:14 | Discharge Instructions ---
Discharge Instructions Date of Service Oct 02, 2017. Admission Reason for Admission: Complete Heart Block Discharge Discharge Diagnosis / Problem: 3rd degree heart block, positive IgM Lyme screen , edema, chronic hypoxia Discharge Goals Goal(s): Improve function, Diagnostic testing Activity Recommendations Activity Limitations: resume your previous activity . Instructions / Follow-Up Instructions / Follow-Up Medications: - DOXYCYCLINE: 100mg twice a day for 14 days, this is to treat Lyme disease - LASIX: 20mg daily, for peripheral edema - COUMADIN: resume previous dosing Oxygen: you should wear at night, based on results of walking desaturation study , you may require during the day on exertion, will arrange home oxygen if needed You presented in complete heart block, treated emergently with transvenous pacer , permanent pacemaker placed on 09/30/17, you have been paced ever since. Per Dr. Bethea from cardiology: From a device standpoint the patient is stable for discharge. She should keep the wound dry and Steri-Strips intact until follow-up in our clinic next week. She should refrain from lifting left arm above her shoulder or behind her neck for 6 weeks. She will be contacted on Tuesday regarding a follow-up appointment in our clinic for wound evaluation next week. No contraindication to warfarin at this point Lyme screen positive: titers (final confirmatory test) still pending, will continue to treat with Doxycycline, Dr. Byers will be able to access final results and can discuss with Dr. Gottlieb for further instructions check labs later this week due to starting Lasix, need to follow potassium level Current Hospital Diet Patient's current hospital diet: Low Sodium Diet (2gm Na), Diabetes Type 2 Diet Discharge Diet Recommended Diet: AHA Diet (Heart Healthy), Diabetes Type 2 Diet Procedures Procedures Performed: Emergent temporary transvenous pacer 09/28/17 PPM on 09/30/17 Pending Studies Studies pending at discharge: no Laboratory Results Hemoglobin A1c Test 08/25/17 12:23 Range/Units Estimated Average Glucose 134 mg/dl Hemoglobin A1c 6.3 H 4.5-5.6 % Medical Emergencies . Who to Call and When: Medical Emergencies: If at any time you feel your situation is an emergency, please call 911 immediately. . Non-Emergent Contact Non-Emergency issues call your: Primary Care Provider Call Non-Emergent contact if: you have any medication questions . . "Provider Documentation" section prepared by Leland Florez. . VTE Core Measure Inpt VTE Proph given/why not?: Warfarin (Coumadin) [place] Drug Monitoring Program Search Results: no issues identified
[2017-10-02 11:43] VITALS: BP 117/63; PULSE 77; TEMP 36.4; O2SAT 94
--- NOTE | 2017-10-02 14:39 | Discharge Summary ---
Discharge Summary Date of Service Oct 02, 2017. 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 Medication Reconciliation New Medications: Doxycycline (Monohydrate) (Doxycycline) 100 Mg Cap 100 MG PO BID for 14 Days, #28 CAP 0 Refills Furosemide (Furosemide) 20 Mg Tab 20 MG PO QAM, #30 TAB 3 Refills Continued Medications: Atorvastatin (Lipitor) 10 Mg Tab 10 MG PO QPM Gabapentin (Neurontin) 100 Mg Cap 100 MG PO BID, CAP Ketotifen Fumarate (Ophth) ([place]) 0.025 % Deon 1 DROP OP Q12 PRN for ALLERGIC REACTION Metformin Hcl Er (Glucophage Er) 500 Mg Tab 1000 MG PO QPM, TAB Venlafaxine Hcl (Effexor Xr) 150 Mg Cap 150 MG PO QPM Venlafaxine Hcl (Venlafaxine Extended Rel) 75 Mg Cap 75 MG PO QPM, CAP Warfarin Sodium (Coumadin) 10 Mg Tab 10 MG PO 5XWK, TAB Warfarin Sodium (Warfarin Sodium) 1 Mg Tab 11 MG PO 2XWK WED,SUN Discharge Exam Patient feeling well, no new complaints. Breathing comfortably, eating well, urinating and moving bowels. Discussed that Lyme titers still pending, will continue to treat with Doxycycline. will follow up with PCP and cardiology performed a two step prior to discharge, no need for oxygen Review of Systems: Constitutional: No fever, No chills, No sweats, No weight loss, No weakness , No fatigue, No problem reported Eyes: No worsening of vision, No eye pain, No redness, No discharge, No diplopia, No problem reported ENT: No hearing loss, No unusual epistaxis, No nasal symptoms, No sore throat, No tinnitus, No dental problems, No trouble swallowing, No problem reported Respiratory: No cough, No sputum, No wheezing, No shortness of breath, No dyspnea on exertion, No dyspnea at rest, No hemoptysis, No problem reported Cardiovascular: No chest pain, No orthopnea, No PND, No edema, No claudication, No palpitations, No problem reported Abdomen: No pain, No nausea, No vomiting, No diarrhea, No constipation, No GI bleeding, No problem reported Musculoskeletal: No joint pain, No muscle pain, No swelling, No calf pain, No problem reported Genitourinary - Female: No dysuria, No urinary frequency, No urinary urgency , No urinary incontinence, No urinary retention, No hematuria Neurologic: No memory loss, No paralysis, No weakness, No numbness/tingling , No vertigo, No balance problems, No problem reported Psychiatric: No depression symptoms, No anhedonism, No anxiety, No insomnia , No substance abuse, No problem reported Endocrine: No fatigue, No excessive thirst, No excessive urination, No problem reported Integumentary: No rash, No itch, No new/changing skin lesions, No color change, No bleeding, No problem reported Physical Exam: General Appearance: no apparent distress, + obese Eyes: normal inspection, EOMI, sclerae normal ENT: normal ENT inspection, hearing grossly normal, pharynx normal Neck: supple, no adenopathy, no JVD, trachea midline Respiratory/Chest: chest non-tender, lungs clear, normal breath sounds, no respiratory distress, no accessory muscle use Cardiovascular: regular rate, rhythm, no edema, no gallop, no JVD, no murmur , normal peripheral pulses Abdomen / GI: normal bowel sounds, non tender, soft, no organomegaly Extremities: normal inspection, no calf tenderness, normal capillary refill , no pedal edema, normal range of motion, pelvis stable Neurologic/Psychiatric: 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 Bethea his office will call tomorrow to arrange follow up specific restrictions for left arm discussed - Lyme disease: IgM screen positive, IgG negative, still awaiting titers Erlichiosis and Anaplasmosis negative Rocephin IV daily while inpatient will d/c on Doxycycline 100mg BID for 14 days PCP should follow up on titer results, discuss plan with Dr. Gottlieb if needed no fevers, no further muscle aches - DARRELL: continue CPAP - DM: Novolog, diabetes diet - H/o VTE: Coumadin held initially for PPM implantation - Peripheral edam: Lasix 20mg PO daily added, tolerated well check BMP this week, potassium stable during admission - Ambulatory desaturation: occurred earlier in the admission in the ICU official 2 step today, no desaturation, no need for supplemental oxygen d/c to home today with PCP and cardiology follow up Total Time Spent: Greater than 30 minutes This includes examination of the patient, discharge planning, medication reconciliation, and communication with other providers. Discharge Instructions Please refer to the electronic Patient Visit Report (Discharge Instructions) for additional information. Follow-Up Dr. Byers in one week Dr. Bethea in 1-2 weeks Additional Copies To Miguelangel Gottlieb MD; Kulwinder Byers M.D.; Ugo Bethea MD
[2017-10-02] MEDS ORDERED: WARFARIN PO SCH ×2 (16:00)
[2017-10-06 08:12] LABS: 18KDIGG BAND NONREACTIVE (NONREACTIVE); 23KDIGG BAND NONREACTIVE (NONREACTIVE); 23KDIGM BAND REACTIVE (NONREACTIVE); 28KDIGG BAND NONREACTIVE (NONREACTIVE); 30KDIGG BAND NONREACTIVE (NONREACTIVE); 39KDIGG BAND NONREACTIVE (NONREACTIVE); 39KDIGM BAND NONREACTIVE (NONREACTIVE); 41KDIGG BAND REACTIVE (NONREACTIVE); 41KDIGM BAND NONREACTIVE (NONREACTIVE); 45KDIGG BAND NONREACTIVE (NONREACTIVE); 58KDIGG BAND NONREACTIVE (NONREACTIVE); 66KDIGG BAND REACTIVE (NONREACTIVE); 93KDIGG BAND NONREACTIVE (NONREACTIVE)
== END 2017-10-02 13:45 | disposition home or self-care (01) | DRG 243 ==
LOC: EDBD 17:43 → C.EDA 17:45 → C.MSICU 18:54 → ENRESERV 10-01 12:15 → C.MS4W 10-01 13:13
PROVIDERS: ADMIT Internal Medicine; ATTEND Internal Medicine
PROC: 02HK3JZ Insertion of Pacemaker Lead into Right Ventricle, Percutaneous Approach (ICD-10-PCS; 2017-09-28)
PROC: 5A1223Z Performance of Cardiac Pacing, Continuous (ICD-10-PCS; 2017-09-28)
PROC: 02H63JZ Insertion of Pacemaker Lead into Right Atrium, Percutaneous Approach (ICD-10-PCS; principal; 2017-09-30 15:57)
PROC: 02HK3JZ Insertion of Pacemaker Lead into Right Ventricle, Percutaneous Approach (ICD-10-PCS; principal; 2017-09-30 15:57)
PROC: 0JH606Z Insertion of Pacemaker, Dual Chamber into Chest Subcutaneous Tissue and Fascia, Open Approach (ICD-10-PCS; principal; 2017-09-30 15:57)
DX: I44.2 Atrioventricular block, complete (principal); A69.20 Lyme disease, unspecified; B02.29 Other postherpetic nervous system involvement; Z68.43 Body mass index [BMI] 50.0-59.9, adult; Z83.3 Family history of diabetes mellitus; Z82.49 Family history of ischemic heart disease and other diseases of the circulatory system; E66.01 Morbid (severe) obesity due to excess calories; R09.02 Hypoxemia; G47.33 Obstructive sleep apnea (adult) (pediatric); E11.9 Type 2 diabetes mellitus without complications; E78.5 Hyperlipidemia, unspecified; R03.0 Elevated blood-pressure reading, without diagnosis of hypertension; F32.9 Major depressive disorder, single episode, unspecified

== ENCOUNTER → 2017-10-05 | Outpatient (CLI) | payer OTHER, MEDICARE ==
[~2017-10-05] MED LIST changes: +DOXY-300 PO; +LSX20 PO; +VENL75CA73 PO
[2017-10-05 17:07] LABS: BLOOD UREA NITROGEN 15 mg/dl (7-18); BUN/CREATININE RATIO 18.3 (10-20); CALCIUM 9.5 mg/dl (8.5-10.1); CARBON DIOXIDE 30 mmol/L (21-32); CHLORIDE 106 mmol/L (98-107); CREATININE 0.83 mg/dl (0.60-1.20); GLUCOSE 104 mg/dl (70-99); POTASSIUM 4.3 mmol/L (3.5-5.1); SODIUM 141 mmol/L (136-145)
== END | disposition home or self-care (01) ==
LOC: C.LABBFT 12:18
PROVIDERS: ATTEND Internal Medicine
DX: R60.0 Localized edema (principal); I10 Essential (primary) hypertension

== ENCOUNTER → 2018-02-08 | Outpatient (CLI) | payer OTHER, MEDICARE ==
[~2018-02-08] MED LIST changes: -CHOL100027 PO; -CYAN500T PO; -DOXY-300 PO; -EFFSR75 PO; -OMEG10007 PO
--- NOTE | 2018-02-09 07:51 | MAMMOGRAPHY REPORT ---
BILATERAL DIGITAL SCREENING MAMMOGRAM TOMOSYNTHESIS WITH CAD: 02/08/2018 CLINICAL HISTORY: Routine screening. TECHNIQUE: Breast tomosynthesis in addition to standard 2D mammography was performed. Current study was also evaluated with a Computer Aided Detection (CAD) system. COMPARISON: Comparison is made to exams dated: 02/07/2017 mammogram, 02/02/2016 mammogram, 01/14/2015 ma mmogram, 01/10/2014 mammogram, 01/09/2013 mammogram, and 01/04/2012 mammogram - [facility]ter. BREAST COMPOSITION: There are scattered areas of fibroglandular density in both breasts. FINDINGS: No suspicious masses, calcifications, or areas of architectural distortion are noted in ei ther breast. There has been no significant interval change compared to prior exams. Bilateral benign -appearing calcifications are not significantly changed. A circular marker was placed over a circums cribed oval 2.4 cm mass within the right lower inner quadrant which was shown to represent a epiderma l inclusion cyst on a prior ultrasound exam. IMPRESSION: ACR BI-RADS CATEGORY 2: BENIGN There is no mammographic evidence of malignancy. A 1 year screening mammogram is recommended. The pa tient will receive written notification of the results. Approximately 10% of breast cancers are not detected with mammography. A negative mammographic report should not delay biopsy if a clinically suggestive mass is present. Bethany Stratton M.D. ah/:02/08/2018 14:09:26 Flour Mixer Helper: Shameka BYRNES)(M), [facility] letter sent: Normal 1/2 BI-RADS Code: ACR BI-RADS Category 2: Benign
== END | disposition home or self-care (01) ==
LOC: C.MAMM 13:03
PROVIDERS: ATTEND Obstetrics & Gynecology
DX: Z12.31 Encounter for screening mammogram for malignant neoplasm of breast (principal)

== ENCOUNTER → 2018-02-23 | Outpatient (CLI) | payer OTHER, MEDICARE ==
[2018-02-23 13:31] LABS: BASO % 0.7 %; BASO ABS # 0.05 K/uL (0-0.2); EOS % 1.8 %; EOS ABS # 0.13 K/uL (0-0.5); HEMATOCRIT 41.3 % (37-47); HEMOGLOBIN 13.9 g/dL (12.0-16.0); LYMPH % 24.1 %; LYMPH ABS # 1.73 K/uL (1.2-3.4); MEAN CELL VOLUME 94.3 fL (80-100); MEAN CORPUSCULAR HEMOGLOBIN 31.7 pg (25-34); MEAN CORPUSCULAR HGB CONC 33.7 g/dl (32-36); MEAN PLATELET VOLUME 11.1 fL (7.4-10.4); MONO % 7.1 %; MONO ABS # 0.51 K/uL (0.11-0.59); NEUT % 66.3 %; NEUT ABS # 4.77 K/uL (1.4-6.5); PLATELET COUNT 233 K/uL (130-400); RED CELL DISTRIBUTION WIDTH CV 13.4 % (11.5-14.5); RED CELL DISTRIBUTION WIDTH SD 46.6 fL (36.4-46.3); WHITE BLOOD COUNT 7.19 K/uL (4.8-10.8)
[2018-02-23 13:41] LABS: INR 2.6 (0.9-1.1)
[2018-02-23 14:01] LABS: HEMOGLOBIN A1C 6.4 % (4.5-5.6)
[2018-02-23 14:35] LABS: ALBUMIN 3.4 gm/dl (3.4-5.0); ALT/SGPT 22 U/L (12-78); AST/SGOT 21 U/L (15-37); BLOOD UREA NITROGEN 17 mg/dl (7-18); CALCIUM 9.4 mg/dl (8.5-10.1); CARBON DIOXIDE 31 mmol/L (21-32); CREATININE 1.09 mg/dl (0.60-1.20); GLUCOSE 112 mg/dl (70-99); SODIUM 137 mmol/L (136-145)
[2018-02-23 14:46] LABS: ALKALINE PHOSPHATASE 77 U/L (45-117); CHOLESTEROL 125 mg/dl (0-200); LDL CHOLESTEROL CALCULATED 45 mg/dl; TOTAL PROTEIN 7.8 gm/dl (6.4-8.2)
== END | disposition home or self-care (01) ==
LOC: C.LAB 11:49
PROVIDERS: ATTEND Internal Medicine
DX: E78.5 Hyperlipidemia, unspecified (principal); R03.0 Elevated blood-pressure reading, without diagnosis of hypertension; E11.9 Type 2 diabetes mellitus without complications; G47.33 Obstructive sleep apnea (adult) (pediatric); Z79.01 Long term (current) use of anticoagulants

== ENCOUNTER 2021-03-06 20:08 | Inpatient (IN) ==
[2021-03-06] MEDS ORDERED: SODIUM CHLORIDE 0.9% 1000ML 1,000 ML IV ONE ×2 (20:42→21:51)
[2021-03-06] MEDS ORDERED: SODIUM CHLORIDE 0.9% 1000ML 500 ML IV ONE (20:58)
[2021-03-06 21:13] LABS: Basophils # (auto) 0.02 K/uL (0-0.2); Basophils % (auto) 0.5 %; Eosinophils # (auto) 0.01 K/uL (0-0.5); Eosinophils % (auto) 0.2 %; Hematocrit (blood only) 29.8 % (37-47); Hemoglobin 10.5 g/dL (12.0-16.0); Lymphocytes # (auto) 0.52 K/uL (1.2-3.4); Lymphocytes % (auto) 12.9 %; Mean Corpuscular Hemoglobin 35.1 pg (25-34); Mean Corpuscular Hgb Conc 35.2 g/dL (32-36); Mean Corpuscular Volume 99.7 fL (80-100); Mean Platelet Volume 11.6 fL (7.4-10.4); Monocytes # (auto) 0.46 K/uL (0.11-0.59); Monocytes % (auto) 11.4 %; Neutrophils # (auto) 3.01 K/uL (1.4-6.5); Platelet Count 135 K/uL (130-400); RDW Coefficient of Variation 15.1 % (11.5-14.5); RDW Standard Deviation 55.2 fL (36.4-46.3); Red Blood Count 2.99 M/uL (4.2-5.4); White Blood Count 4.02 K/uL (4.8-10.8)
[2021-03-06 21:29] LABS: Albumin Level 2.5 gm/dl (3.4-5.0); BUN Creatinine Ratio 17.9 (10-20); Calcium 8.6 mg/dl (8.5-10.1); Creatinine Clr Calc Pharmacy 46.1 ml/min; Est GFR (Non-African American) 44.9; Magnesium 1.8 mg/dl (1.8-2.4)
[2021-03-06 21:34] LABS: Albumin Globulin Ratio 0.6 (0.9-2); Bilirubin,Total 0.4 mg/dl (0.2-1); Globulin 4.3 gm/dl (2.5-4.0); Total Protein 6.8 gm/dl (6.4-8.2); Troponin I 0.02 ng/ml (0-0.045)
[2021-03-06 21:36] LABS: INR 2.9 (0.9-1.1); Partial Thromboplastin Ratio 1.6; Partial Thromboplastin Time 41.9 Seconds (21.0-31.0); Prothrombin Time 26.8 Seconds (9.0-12.0)
[2021-03-06] MEDS ORDERED: SODIUM CHLORIDE 0.9% 1000ML 1,000 ML IV SCH (22:00)
--- NOTE | 2021-03-06 22:07 | Emergency Department Note ---
History of Present Illness General Chief complaint: Weakness Stated complaint: ILLNESS Time Seen by Provider: 03/06/21 20:27 History of Present Illness Provider complaint: Weakness shortness of breath diarrhea headache Covid positive Onset (ago): week(s) 1 Associated symptoms: + cough, + diaphoresis, + fever/chills, + headaches, + shortness of breath and + weakness; no chest pain, no nausea/vomiting, no rash and no seizure 80-year-old female with history of aortic stenosis, diabetes, endometrial neoplasia, myeloma, presents emergency department with chief complaint of headache shortness of breath cough diarrhea. Patient tested positive for COVID- 19 on March 03, 2021, 3 days ago. Patient reports fevers at home. T-max 101. Patient reports body aches. Loss of taste and smell. Cough. Diarrhea. No melena or hematochezia. She also reports headache. No recent fall. Patient is on Coumadin. Home Medications Medication Instructions Recorded Confirmed Type ascorbic acid (vitamin C) 500 mg 500 mg PO QAM tab 07/31/19 03/06/21 History tablet cholecalciferol (vitamin D3) 50 2,000 unit PO QAM tab 07/31/19 03/06/21 History mcg (2,000 unit) tablet cyanocobalamin (vitamin B-12) 500 500 mcg PO QAM tab 07/31/19 03/06/21 History mcg tablet amoxicillin 500 mg capsule 2,000 mg PO ONCE PRN #4 cap 08/01/19 03/06/21 History oxycodone 5 mg tablet 5 mg PO Q6H PRN #28 tab 08/01/19 03/06/21 History acyclovir 400 mg tablet 400 mg PO BID 11/20/19 03/06/21 History atorvastatin 10 mg tablet 10 mg PO DAILY #90 tab 04/21/20 03/06/21 Rx fluocinolone 0.01 % topical 1 appln TOP BID #60 ml 05/27/20 03/06/21 Rx solution potassium phosphate, monobasic 500 500 mg PO DAILY tab 07/07/20 03/06/21 History mg soluble tablet venlafaxine 150 mg 150 mg PO QPM #90 cap 07/07/20 03/06/21 Rx capsule,extended release 24 hr blood sugar diagnostic #100 ea 10/22/20 12/04/20 Rx metformin 500 mg tablet,extended 1,000 mg PO QPM #180 tab 10/22/20 03/06/21 Rx release 24 hr loratadine 10 mg capsule 10 mg PO DAILY PRN #30 cap 10/31/20 03/06/21 Rx denosumab 120 mg/1.7 mL (70 mg/mL) 120 mg SUBCUT MONTHLY ml 11/18/20 03/06/21 History subcutaneous solution lenalidomide 10 mg capsule 10 mg PO DAILY cap 11/18/20 03/06/21 History hydrocortisone acetate 1 % topical 1 applic TOPICAL DAILY PRN #28.4 g 12/04/20 03/06/21 Rx cream nystatin 100,000 unit/gram topical 1 applic TOPICAL DAILY PRN 12/04/20 03/06/21 History powder furosemide 20 mg tablet 20 mg PO QAM #90 tab 12/30/20 03/06/21 Rx ketotifen fumarate 0.025 % (0.035 1 drp OP BID PRN ml 01/13/21 03/06/21 History %) eye drops warfarin 4 mg tablet 8 mg PO DAILY #60 tab 03/02/21 03/06/21 Rx multivitamin 1 tab PO DAILY 03/06/21 03/06/21 History venlafaxine 75 mg PO QAM 03/06/21 03/06/21 History warfarin 1 mg PO 2XWK 03/06/21 03/06/21 History Allergies Allergy/AdvReac Type Severity Reaction Status Date / Time adhesive tape AdvReac Mild Skin rash Verified 01/13/21 15:53 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; s/p surgery, radiation, chemo (receiving weekly oral/IV chemo Fridays + dexamethasone 40mg pretreatment prior to chemo) Positional vertigo Post herpetic neuralgia hx shingles Post-menopausal bleeding Pulmonary embolism years ago (no definitive etiology)- on warfarin Sleep apnea CPAP + 2 LPM O2 qhs Urinary leakage Surgical History H/O surgical biopsy Right distal humerus 11/21/18 History of appendectomy History of bilateral carpal tunnel release History of cataract surgery Bilateral History of cholecystectomy History of endometrial biopsy History of knee replacement procedure of left knee History of knee replacement procedure of right knee History of surgery right distal humerus replacement History of tonsillectomy S/P dilation and curettage S/P tooth extraction S/P tubal ligation Family History Mother , 89yo Myocardial infarction Congestive heart failure Father , Pt unsure of details of father's health history;Knows he had facial cancer Malignant neoplasm of oral cavity Sister , May 2019 of copd Diabetes Breast cancer Son Hypertension Grandmother Diabetes Denies family history of Prostate cancer Lung cancer Colorectal cancer Social History Smoking Status: Never smoker Second Hand Exposure: No; Hx Alcohol Use: No Hx Substance Use: Yes Last Used Substance: Hours (ago) Preferred Language: Guatemalan Communication Ability: Effective Visual Impairment: No Limitations Hearing Ability: Normal Life Trainer Required: No Beliefs That Will Affect Care: None marital status: Current Living Situation: Alone current occupational status: retired 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 Feels Safe at Home: Yes Childhood Exposure to Second-Hand Smoke: No caffeine: Yes (1 cup/day) during the past year weight has: remained stable Dental Care, Regularly: No Physical Activity Frequency: Does not Exercise Seatbelt Use: always Sunscreen Use: Yes Assistive Devices: Cane, Denture - Upper, Denture - Lower and Glasses Review of Systems A total of 10 systems reviewed and were otherwise negative Physical Exam Vital Signs Vital Signs - 24 hr 03/06/21 20:26 03/06/21 20:30 03/06/21 20:32 Temperature 37.2 C Temperature Source Oral Pulse Rate 74 74 Pulse Rate from SpO2 Sensor 74 Pulse Rhythm Regular Pulse Strength Normal Respiratory Rate 25 H 28 H Respiratory Effort / Characteristics Non-Labored Respiratory Depth Normal Respiratory Pattern Regular Blood Pressure 96/50 L 82/47 L Blood Pressure Mean 65 58 Blood Pressure Position Sitting Pulse Oximetry 94 93 94 Oxygen Delivery Method Nasal Cannula Nasal Cannula Oxygen Flow Rate 2 2 Sepsis Recent Fever Within 48 Hours No Sepsis New/Unexplained Change in Mental Status No Sepsis Action Taken by Nursing Physician Notified 03/06/21 20:34 03/06/21 20:40 03/06/21 20:42 Temperature Temperature Source Pulse Rate 75 82 Pulse Rate from SpO2 Sensor 75 82 Pulse Rhythm Pulse Strength Respiratory Rate 26 H 27 H 25 H Respiratory Effort / Characteristics Spontaneous Respiratory Depth Respiratory Pattern Blood Pressure Blood Pressure Mean Blood Pressure Position Pulse Oximetry 93 94 93 Oxygen Delivery Method Nasal Cannula Oxygen Flow Rate 2 Sepsis Recent Fever Within 48 Hours Sepsis New/Unexplained Change in Mental Status Sepsis Action Taken by Nursing 03/06/21 20:50 03/06/21 20:57 03/06/21 21:00 Temperature Temperature Source Pulse Rate 74 74 73 Pulse Rate from SpO2 Sensor 72 73 73 Pulse Rhythm Pulse Strength Respiratory Rate 22 25 H 26 H Respiratory Effort / Characteristics Respiratory Depth Respiratory Pattern Blood Pressure 82/42 L 77/48 L Blood Pressure Mean 55 57 Blood Pressure Position Pulse Oximetry 94 93 93 Oxygen Delivery Method Oxygen Flow Rate Sepsis Recent Fever Within 48 Hours Sepsis New/Unexplained Change in Mental Status Sepsis Action Taken by Nursing 03/06/21 21:02 03/06/21 21:10 03/06/21 21:12 Temperature Temperature Source Pulse Rate 85 Pulse Rate from SpO2 Sensor Pulse Rhythm Regular Pulse Strength Respiratory Rate 18 25 H Respiratory Effort / Characteristics Non-Labored Respiratory Depth Respiratory Pattern Blood Pressure 80/39 L Blood Pressure Mean 52 Blood Pressure Position Pulse Oximetry 94 95 Oxygen Delivery Method Room Air Nasal Cannula Oxygen Flow Rate 2 2 Sepsis Recent Fever Within 48 Hours Sepsis New/Unexplained Change in Mental Status Sepsis Action Taken by Nursing 03/06/21 21:30 03/06/21 21:33 03/06/21 21:40 Temperature Temperature Source Pulse Rate 76 76 Pulse Rate from SpO2 Sensor 77 77 Pulse Rhythm Pulse Strength Respiratory Rate 28 H 20 Respiratory Effort / Characteristics Non-Labored Respiratory Depth Respiratory Pattern Blood Pressure 73/48 L Blood Pressure Mean 56 Blood Pressure Position Pulse Oximetry 96 95 Oxygen Delivery Method Oxygen Flow Rate Sepsis Recent Fever Within 48 Hours Sepsis New/Unexplained Change in Mental Status Sepsis Action Taken by Nursing 03/06/21 21:46 03/06/21 21:50 03/06/21 22:00 Temperature Temperature Source Pulse Rate 77 75 78 Pulse Rate from SpO2 Sensor Pulse Rhythm Pulse Strength Respiratory Rate 15 15 Respiratory Effort / Characteristics Respiratory Depth Respiratory Pattern Blood Pressure 101/85 Blood Pressure Mean 90 Blood Pressure Position Pulse Oximetry Oxygen Delivery Method Oxygen Flow Rate Sepsis Recent Fever Within 48 Hours Sepsis New/Unexplained Change in Mental Status Sepsis Action Taken by Nursing 03/06/21 22:01 03/06/21 22:10 03/06/21 22:16 Temperature Temperature Source Pulse Rate 74 75 73 Pulse Rate from SpO2 Sensor Pulse Rhythm Pulse Strength Respiratory Rate 27 H 25 H 25 H Respiratory Effort / Characteristics Respiratory Depth Respiratory Pattern Blood Pressure 90/60 L 93/42 L Blood Pressure Mean 70 59 Blood Pressure Position Pulse Oximetry Oxygen Delivery Method Oxygen Flow Rate Sepsis Recent Fever Within 48 Hours Sepsis New/Unexplained Change in Mental Status Sepsis Action Taken by Nursing 03/06/21 22:17 03/06/21 22:20 03/06/21 22:30 Temperature Temperature Source Pulse Rate 71 72 73 Pulse Rate from SpO2 Sensor 73 Pulse Rhythm Pulse Strength Respiratory Rate 24 25 H 25 H Respiratory Effort / Characteristics Respiratory Depth Respiratory Pattern Blood Pressure Blood Pressure Mean Blood Pressure Position Pulse Oximetry 91 Oxygen Delivery Method Oxygen Flow Rate Sepsis Recent Fever Within 48 Hours Sepsis New/Unexplained Change in Mental Status Sepsis Action Taken by Nursing 03/06/21 22:31 03/06/21 22:32 03/06/21 22:35 Temperature Temperature Source Pulse Rate 69 67 74 Pulse Rate from SpO2 Sensor 70 75 Pulse Rhythm Pulse Strength Respiratory Rate 24 26 H 28 H Respiratory Effort / Characteristics Respiratory Depth Respiratory Pattern Blood Pressure 71/37 L 68/47 L 90/50 L Blood Pressure Mean 48 54 63 Blood Pressure Position Pulse Oximetry 93 94 Oxygen Delivery Method Oxygen Flow Rate Sepsis Recent Fever Within 48 Hours Sepsis New/Unexplained Change in Mental Status Sepsis Action Taken by Nursing 03/06/21 22:40 03/06/21 22:45 03/06/21 22:50 Temperature Temperature Source Pulse Rate 74 72 74 Pulse Rate from SpO2 Sensor 74 72 74 Pulse Rhythm Pulse Strength Respiratory Rate 27 H 23 18 Respiratory Effort / Characteristics Respiratory Depth Respiratory Pattern Blood Pressure 91/45 L Blood Pressure Mean 60 Blood Pressure Position Pulse Oximetry 94 94 93 Oxygen Delivery Method Oxygen Flow Rate Sepsis Recent Fever Within 48 Hours Sepsis New/Unexplained Change in Mental Status Sepsis Action Taken by Nursing 03/06/21 23:00 03/06/21 23:10 03/06/21 23:15 Temperature Temperature Source Pulse Rate 73 72 73 Pulse Rate from SpO2 Sensor 73 72 73 Pulse Rhythm Pulse Strength Respiratory Rate 25 H 23 24 Respiratory Effort / Characteristics Respiratory Depth Respiratory Pattern Blood Pressure 82/44 L 85/53 L Blood Pressure Mean 56 63 Blood Pressure Position Pulse Oximetry 93 93 93 Oxygen Delivery Method Oxygen Flow Rate Sepsis Recent Fever Within 48 Hours Sepsis New/Unexplained Change in Mental Status Sepsis Action Taken by Nursing 03/06/21 23:18 03/06/21 23:20 Temperature Temperature Source Pulse Rate 75 74 Pulse Rate from SpO2 Sensor 75 74 Pulse Rhythm Pulse Strength Respiratory Rate 24 22 Respiratory Effort / Characteristics Respiratory Depth Respiratory Pattern Blood Pressure 96/56 L Blood Pressure Mean 69 Blood Pressure Position Pulse Oximetry 97 97 Oxygen Delivery Method Oxygen Flow Rate Sepsis Recent Fever Within 48 Hours Sepsis New/Unexplained Change in Mental Status Sepsis Action Taken by Nursing Physical Exam HENT: Exam performed. -Head: Normocephalic and atraumatic. -Right Ear: External ear normal. No mastoid tenderness. -Left Ear: External ear normal. No mastoid tenderness. -Mouth/Throat: The oropharynx is clear and moist. No trismus in the jaw. No dental abscesses or uvula swelling. No oropharyngeal exudate or tonsillar abscesses. EYES: Conjunctivae and EOM are normal. Pupils are equal, round, and reactive to light. Right eye exhibits no discharge. Left eye exhibits no discharge. No scleral icterus. NECK: Normal range of motion. Neck supple. No JVD present. No spinous process tenderness present. No carotid bruit present. No rigidity. No tracheal deviation and normal range of motion present. No Brudzinski's sign and no Kernig's sign noted. CV: Normal rate, regular rhythm, normal heart sounds and intact distal pulses. There is no peripheral edema. Palpable radial pulses bue. PULM/CHEST: Effort normal and breath sounds normal. No respiratory distress. No stridor. She has no wheezes. She has no rales. -Chest Wall: She exhibits no tenderness. ABD: The abdomen is soft and obese. Bowel sounds are normal. She has no distension. No mass is present. There is no tenderness. There is no rebound, no guarding, no Andrade's sign and no tenderness at McBurney's point. Rovsig negative MUSC/SKEL: Normal range of motion. There is no peripheral edema, tenderness or deformity. LYMPH: No cervical adenopathy. NEURO: She is alert and oriented to person, place, and time. She has normal strength. No cranial nerve deficit or sensory deficit. GCS eye subscore is 4. GCS verbal subscore is 5. GCS motor subscore is 6. Cerebellar tests wnl. SKIN: Skin is warm and dry. She is not diaphoretic. PSYCH: She has a normal mood and affect. Behavior is normal. Judgment and thought content normal. Course Course 2026: The patient was evaluated in room A4. A complete history and physical exam was performed Cardiac monitoring: An order was placed for continuous cardiac monitoring. The monitor shows a rate of 90 with paced rhythm EMR reviewed. Patient tested positive for COVID-19 on March 04, 2021, 2 days a go. On arrival in the room the patient is hypotensive systolic in the 70s and diastolic in the 40s. Patient has history of aortic stenosis. We will give judicial fluid boluses to try to improve the patient's blood pressure. Sepsis protocols were initiated. 2129: Patient remains hypotensive despite 500 cc bolus. Will give another 500 cc bolus. EMR reviewed. Patient does have moderate to severe aortic stenosis but the ejection fraction from the echo done in July 2020 did show ejection fraction of 55 to 60%. We will give another liter of fluid. 2199: Blood pressure improved. CT of the head shows numerous lytic lesions concerning for metastatic disease. Chest x-ray shows bilateral groundglass opacities and cardiomegaly. INR is therapeutic at 2.9. Lactic acid is still pending. Patient will be admitted to the [facility] hospitalist team Dr. Grewal. Administered Medications Sodium Chloride (Nss 1000ml) 1,000 mls @ 125 mls/hr IV .Q8H DEVON Stop: 04/05/21 21:59 Last Admin: 03/06/21 23:09 Dose: 125 mls/hr Documented by: [id number] Discontinued Medications Sodium Chloride (Nss 1000ml) 1,000 mls @ 999 mls/hr IV .Q1H1M ONE Stop: 03/06/21 21:42 Last Infusion: 03/06/21 22:54 Dose: 999 mls/hr Documented by: [id number] Admin: 03/06/21 20:50 Dose: 999 mls/hr Documented by: [id number] Critical Care Time Critical Care Time: Yes Total Critical Care Time: 80 I have personally spent greater than 80 minutes of critical care time in the direct management of this patient. This includes bedside care, interpretation of diagnostic studies, and testing, discussion with consultants, patient, and family members, and other required patient management activities. This 80 minutes is in excess of all separately billable procedures. Medical Decision Making Laboratory Data Result diagrams: 03/06/21 20:45 03/06/21 20:45 Lab Results 03/06/21 03/06/21 03/06/21 Range/Units 20:45 20:45 20:45 WBC 4.02 L (4.8-10.8) K/uL RBC 2.99 L (4.2-5.4) M/uL Hgb 10.5 L (12.0-16.0) g/dL Hct 29.8 L (37-47) % MCV 99.7 (80-100) fL MCH 35.1 H (25-34) pg MCHC 35.2 (32-36) g/dL RDW Std Deviation 55.2 H (36.4-46.3) fL RDW Coeff of Giuseppe 15.1 H (11.5-14.5) % Plt Count 135 (130-400) K/uL MPV 11.6 H (7.4-10.4) fL Immature Gran % (Auto) 0.0 % Neut % (Auto) 75.0 % Lymph % (Auto) 12.9 % Jefferson % (Auto) 11.4 % Eos % (Auto) 0.2 % Baso % (Auto) 0.5 % Neut # (Auto) 3.01 (1.4-6.5) K/uL Lymph # (Auto) 0.52 L (1.2-3.4) K/uL Jefferson # (Auto) 0.46 (0.11-0.59) K/uL Eos # (Auto) 0.01 (0-0.5) K/uL Baso # (Auto) 0.02 (0-0.2) K/uL Immature Gran # (Auto) 0.00 (0.00-0.02) K/uL PT 26.8 H (9.0-12.0) Seconds INR 2.9 H (0.9-1.1) APTT 41.9 H (21.0-31.0) Seconds PTT Ratio 1.6 VBG pH (7.36-7.41) VBG pCO2 (38-50) mmHg VBG pO2 mmHg VBG HCO3 mmol/L VBG O2 Saturation % VBG Base Excess mEq/L Barometric Pressure mm/Hg Sodium 133 L (136-145) mmol/L Potassium 4.0 (3.5-5.1) mmol/L Chloride 102 (98-107) mmol/L Carbon Dioxide 26 (21-32) mmol/L Anion Gap 6.0 (3-11) BUN 21 H (7-18) mg/dl Creatinine 1.15 (0.6-1.2) mg/dl Est Cr Clr Drug Dosing 46.1 ml/min Est GFR ( Amer) 52.0 Est GFR (Non-Af Amer) 44.9 BUN/Creatinine Ratio 17.9 (10-20) Glucose 98 (70-99) mg/dl POC Glucose (70-99) mg/dl Lactate (0.4-2.0) mmol/L Calcium 8.6 (8.5-10.1) mg/dl Magnesium 1.8 (1.8-2.4) mg/dl Total Bilirubin 0.4 (0.2-1) mg/dl AST 29 (15-37) U/L ALT 20 (12-78) U/L Alkaline Phosphatase 74 (45-117) U/L Troponin I 0.020 (0-0.045) ng/ml Total Protein 6.8 (6.4-8.2) gm/dl Albumin 2.5 L (3.4-5.0) gm/dl Globulin 4.3 H (2.5-4.0) gm/dl Albumin/Globulin Ratio 0.6 L (0.9-2) Procalcitonin (0-0.5) ng/ml 03/06/21 03/06/21 03/06/21 Range/Units 20:45 20:49 22:34 WBC (4.8-10.8) K/uL RBC (4.2-5.4) M/uL Hgb (12.0-16.0) g/dL Hct (37-47) % MCV (80-100) fL MCH (25-34) pg MCHC (32-36) g/dL RDW Std Deviation (36.4-46.3) fL RDW Coeff of Giuseppe (11.5-14.5) % Plt Count (130-400) K/uL MPV (7.4-10.4) fL Immature Gran % (Auto) % Neut % (Auto) % Lymph % (Auto) % Jefferson % (Auto) % Eos % (Auto) % Baso % (Auto) % Neut # (Auto) (1.4-6.5) K/uL Lymph # (Auto) (1.2-3.4) K/uL Jefferson # (Auto) (0.11-0.59) K/uL Eos # (Auto) (0-0.5) K/uL Baso # (Auto) (0-0.2) K/uL Immature Gran # (Auto) (0.00-0.02) K/uL PT (9.0-12.0) Seconds INR (0.9-1.1) APTT (21.0-31.0) Seconds PTT Ratio VBG pH (7.36-7.41) VBG pCO2 (38-50) mmHg VBG pO2 mmHg VBG HCO3 mmol/L VBG O2 Saturation % VBG Base Excess mEq/L Barometric Pressure mm/Hg Sodium (136-145) mmol/L Potassium (3.5-5.1) mmol/L Chloride (98-107) mmol/L Carbon Dioxide (21-32) mmol/L Anion Gap (3-11) BUN (7-18) mg/dl Creatinine (0.6-1.2) mg/dl Est Cr Clr Drug Dosing ml/min Est GFR ( Amer) Est GFR (Non-Af Amer) BUN/Creatinine Ratio (10-20) Glucose (70-99) mg/dl POC Glucose 106 H (70-99) mg/dl Lactate 1.3 (0.4-2.0) mmol/L Calcium (8.5-10.1) mg/dl Magnesium (1.8-2.4) mg/dl Total Bilirubin (0.2-1) mg/dl AST (15-37) U/L ALT (12-78) U/L Alkaline Phosphatase (45-117) U/L Troponin I (0-0.045) ng/ml Total Protein (6.4-8.2) gm/dl Albumin (3.4-5.0) gm/dl Globulin (2.5-4.0) gm/dl Albumin/Globulin Ratio (0.9-2) Procalcitonin 0.20 (0-0.5) ng/ml 03/06/21 Range/Units 22:34 WBC (4.8-10.8) K/uL RBC (4.2-5.4) M/uL Hgb (12.0-16.0) g/dL Hct (37-47) % MCV (80-100) fL MCH (25-34) pg MCHC (32-36) g/dL RDW Std Deviation (36.4-46.3) fL RDW Coeff of Giuseppe (11.5-14.5) % Plt Count (130-400) K/uL MPV (7.4-10.4) fL Immature Gran % (Auto) % Neut % (Auto) % Lymph % (Auto) % Jefferson % (Auto) % Eos % (Auto) % Baso % (Auto) % Neut # (Auto) (1.4-6.5) K/uL Lymph # (Auto) (1.2-3.4) K/uL Jefferson # (Auto) (0.11-0.59) K/uL Eos # (Auto) (0-0.5) K/uL Baso # (Auto) (0-0.2) K/uL Immature Gran # (Auto) (0.00-0.02) K/uL PT (9.0-12.0) Seconds INR (0.9-1.1) APTT (21.0-31.0) Seconds PTT Ratio VBG pH 7.38 (7.36-7.41) VBG pCO2 44 (38-50) mmHg VBG pO2 53 mmHg VBG HCO3 26 mmol/L VBG O2 Saturation 85.2 % VBG Base Excess 0.2 mEq/L Barometric Pressure 732.8 mm/Hg Sodium (136-145) mmol/L Potassium (3.5-5.1) mmol/L Chloride (98-107) mmol/L Carbon Dioxide (21-32) mmol/L Anion Gap (3-11) BUN (7-18) mg/dl Creatinine (0.6-1.2) mg/dl Est Cr Clr Drug Dosing ml/min Est GFR ( Amer) Est GFR (Non-Af Amer) BUN/Creatinine Ratio (10-20) Glucose (70-99) mg/dl POC Glucose (70-99) mg/dl Lactate (0.4-2.0) mmol/L Calcium (8.5-10.1) mg/dl Magnesium (1.8-2.4) mg/dl Total Bilirubin (0.2-1) mg/dl AST (15-37) U/L ALT (12-78) U/L Alkaline Phosphatase (45-117) U/L Troponin I (0-0.045) ng/ml Total Protein (6.4-8.2) gm/dl Albumin (3.4-5.0) gm/dl Globulin (2.5-4.0) gm/dl Albumin/Globulin Ratio (0.9-2) Procalcitonin (0-0.5) ng/ml Imaging Data My Impression: Chest x-ray: Cardiomegaly with bilateral groundglass opacities. No free air under the diaphragm. Skeletal structures are intact. Airway is clear. Pacemaker wires are in place. Radiologist's Impression: Preliminary Findings Only See Final Report For Complete Findings CT HEAD: Involutional and chronic small vessel ischemic changes. Mild mucosal thickening in the ethmoid air cells. No skull fracture. 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 Radiologist: Diaz Headley M.D. Study ready at 21:51 and initial results transmitted at 21:57 ECG Data Additional Comments: Paced rhythm with rate of 95. TX 210 QRS [address] ST depression. [facility] Narrative 2026: The patient was evaluated in room A4. A complete history and physical exam was performed Cardiac monitoring: An order was placed for continuous cardiac monitoring. The monitor shows a rate of 90 with paced rhythm EMR reviewed. Patient tested positive for COVID-19 on March 04, 2021, 2 days ago. On arrival in the room the patient is hypotensive systolic in the 70s and diastolic in the 40s. Patient has history of aortic stenosis. We will give judicial fluid boluses to try to improve the patient's blood pressure. Sepsis protocols were initiated. 2129: Patient remains hypotensive despite 500 cc bolus. Will give another 500 cc bolus. EMR reviewed. Patient does have moderate to severe aortic stenosis but the ejection fraction from the echo done in July 2020 did show ejection fraction of 55 to 60%. We will give another liter of fluid. 2199: Blood pressure improved. CT of the head shows numerous lytic lesions concerning for metastatic disease. Chest x-ray shows bilateral groundglass opacities and cardiomegaly. INR is therapeutic at 2.9. Lactic acid is still pending. Patient will be admitted to the [facility] hospitalist team Dr. Grewal. Impression & Plan Pneumonia due to 2019 novel coronavirus, Sepsis Discharge Plan Visit Data Chief Complaint: Weakness Stated Complaint: ILLNESS ED Provider: Christian Mullen Discharge Problem: Pneumonia due to 2019 novel coronavirus, Sepsis Patient Disposition: Admitted As Inpatient Discharge Instructions Interventions: ED Discharge Assessment Last Done: 03/06/21 23:37 Forms Stand Alone Forms: My [facility] Prescriptions Prescriptions: No Action Xgeva 120 mg/1.7 mL (70 mg/mL) solution 120 mg subcut MONTHLY RF: 0 atorvastatin 10 mg tablet 10 mg PO DAILY Qty: 90 RF: 3 venlafaxine 150 mg capsule,extended release 24hr 150 mg PO QPM Qty: 90 RF: 3 (DME) OneTouch Ultra Blue Test Strip Strip See Dose Instructions .ROUTE .MEDSUPPLY Qty: 100 RF: 3 metformin 500 mg tablet extended release 24 hr 1,000 mg PO QPM Qty: 180 RF: 3 hydrocortisone acetate 1 % cream 1 applic topical DAILY PRN (Reason: skin irritation) Qty: 28.4 RF: 0 furosemide 20 mg tablet 20 mg PO QAM Qty: 90 RF: 3 warfarin 4 mg tablet 8 mg PO DAILY Qty: 60 RF: 5 fluocinolone 0.01 % solution 1 appln TOP BID Qty: 60 RF: 2 K-Phos Original 500 mg tablet,soluble 500 mg PO DAILY RF: 0 nystatin 100,000 unit/gram powder 1 applic topical DAILY PRN (Reason: Skin Irritation) RF: 0 loratadine 10 mg capsule 10 mg PO DAILY PRN (Reason: Allergy Symptoms) Qty: 30 RF: 5 ascorbic acid (vitamin C) 500 mg tablet 500 mg PO QAM RF: 0 cholecalciferol (vitamin D3) 2,000 unit tablet 2,000 unit PO QAM RF: 0 cyanocobalamin (vitamin B-12) 500 mcg tablet 500 mcg PO QAM RF: 0 amoxicillin 500 mg capsule 2,000 mg PO ONCE PRN (Reason: DENTAL APPOINTMENTS) Qty: 4 RF: 0 oxycodone 5 mg tablet 5 mg PO Q6H PRN (Reason: pain) Qty: 28 RF: 0 ketotifen fumarate 0.025 % (0.035 %) drops 1 drp OP BID PRN (Reason: Dry Eye(S)) RF: 0 acyclovir 400 mg tablet 400 mg PO BID RF: 0 Revlimid 10 mg capsule 10 mg PO DAILY RF: 0 multivitamin Tablet 1 tab PO DAILY RF: 0 venlafaxine 75 mg capsule,extended release 24hr 75 mg PO QAM RF: 0 warfarin 1 mg tablet 1 mg PO 2XWK RF: 0 Referrals Referrals: Kulwinder Byers MD [Primary Care Provider] - Discharge Problem: Sepsis Qualifiers: Sepsis type: sepsis due to unspecified organism Sepsis acute organ dysfunction status: unspecified Qualified Code(s): A41.9 - Sepsis, unspecified organism
[2021-03-06 22:53] LABS: Base Excess VBG 0.2 mEq/L; Oxygen Saturation VBG 85.2 %; pH VBG 7.38 (7.36-7.41)
--- NOTE | 2021-03-06 23:02 | History & Physical Report ---
Date of Service March 06, 2021 Assessment & Plan (1) Pneumonia due to 2019 novel coronavirus: 80yo C female with multiple medical comorbidities, active myeloma on lenalidomide chemotherapy, BMI of 50.3 presenting with Covid-19 PNA. Patient is on chronic O2 of 2L at home. Was noted to be in mild respiratory distress upon arrival, needed her O2 to be increased to 4L temporarily. Patient is at risk for development of severe disease due to underlying comorbidities. Labs significant for leukopenia with lymphopenia as well as stable anemia. CXR with bilateral airspace disease most consistent with Covid-19 infection. Patient hypotensive in the ER which has improved with IVF and manipulation of BP cuff placement -Admit to PCU -Maintain isolation precautions - airborne and contact -Check CK, BNP -Dexamethasone 6mg IV daily -Remdesivir per 5 day protocol -Supplemental O2 as needed -Tylenol, Guaifenesin PRN -Continue home Vitamin C and Vitamin D -Follow cultures -Empiric antibiotic coverage for CAD - Azithromycin and Ceftriaxone Present on Admission?: Yes (2) Sepsis: Patient with hypotension on arrival. Improving. ?if secondary to underlying Covid-19 infection vs other cause -Will cover with empiric Ceftriaxone/Azithromycin for now given patient's tenuous state in ER and immunocompromised status. -Follow cultures Present on Admission?: Yes (3) Aortic stenosis: Patient with moderate to severe noted on echo on 08/13/20 with preserved EF of 55-60%. SAMANTHA of 1cm2, trace regurgitation. Patient's hypotension on arrival may have been secondary to diminished preload in setting of illness, dehydration. -Cautious fluid management Present on Admission?: Yes (4) 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, type 2: Chronic -Hold oral agents -Lantus 5u BID -ISS Present on Admission?: Yes (5) Hyperlipidemia: Chronic -Continue Atorvastatin Present on Admission?: Yes (6) Depression: Chronic. Patient with depressed mood currently -Continue Venlafaxine -Continue to monitor Present on Admission?: Yes (7) Pulmonary embolism: Patient with history of hypercoagulable state with recurrent DVT and PE. Remote history of PE. On Coumadin anticoagulation. INR therapeutic. 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 She had a PET scan performed on 07/23/19 which showed performed in which showed innumerable lytic lesions involving right parietal bone, left parietal bone, ribs. Imaging today shows calvarium lesions most consistent with her underlying disease. She follows with Oncology -Continue Revlimid 10mg po daily -Continue Acyclovir F/E/N - Patient received NSS in ER, encourage PO intake, monitor electrolytes and replete as needed, CC/AHA diet as tolerated Ppx - Patient is fully anticoagulated on Coumadin - INR=2.9 Code - DNR/DNI per discussion with patient Dispo - Admit to PCU Present on Admission?: Yes History of Present Illness Chief Complaint: weakness, fatigue Primary Care Provider: Kulwinder Byers MD Chantel Roy is an 80yo female with history of DM, HLP, prior PE on Coumadin therapy. Patient began feeling ill approximately 1.5 weeks ago with body aches, fatigue. She has had a slight cough as well and diarrhea as well as poor oral intake. Also with complaint of headache. Patient tested positive for Covid-19 on 03/03/21 in the outpatient setting. EMS was called this evening because patient had increasing fatigue and chills. Family reports elevated temperature of 99-100 as well as some confusion. EMT report slight respiratory distress, saturation of 92% on 2L. In the ER, patient afebrile, hypotensive on arrival with BP ranging 71-120 /39 - 80. Tachypneic as well with RR of 25. Patient on 2L of O2 at baseline which was increased in the ambulance. She reports feeling ill but otherwise denies chest pain, palpitations, abdominal pain, nausea, vomiting. ER course: NSS x 2L Allergies Allergy/AdvReac Type Severity Reaction Status Date / Time adhesive tape AdvReac Mild Skin rash Verified 01/13/21 15:53 Home Medications Medication Instructions Recorded Confirmed Type ascorbic acid (vitamin C) 500 mg 500 mg PO QAM tab 07/31/19 03/06/21 History tablet cholecalciferol (vitamin D3) 50 2,000 unit PO QAM tab 07/31/19 03/06/21 History mcg (2,000 unit) tablet cyanocobalamin (vitamin B-12) 500 500 mcg PO QAM tab 07/31/19 03/06/21 History mcg tablet amoxicillin 500 mg capsule 2,000 mg PO ONCE PRN #4 cap 08/01/19 03/06/21 History oxycodone 5 mg tablet 5 mg PO Q6H PRN #28 tab 08/01/19 03/06/21 History acyclovir 400 mg tablet 400 mg PO BID 11/20/19 03/06/21 History atorvastatin 10 mg tablet 10 mg PO DAILY #90 tab 04/21/20 03/06/21 Rx fluocinolone 0.01 % topical 1 appln TOP BID #60 ml 05/27/20 03/06/21 Rx solution potassium phosphate, monobasic 500 500 mg PO DAILY tab 07/07/20 03/06/21 History mg soluble tablet venlafaxine 150 mg 150 mg PO QPM #90 cap 07/07/20 03/06/21 Rx capsule,extended release 24 hr blood sugar diagnostic #100 ea 10/22/20 12/04/20 Rx metformin 500 mg tablet,extended 1,000 mg PO QPM #180 tab 10/22/20 03/06/21 Rx release 24 hr loratadine 10 mg capsule 10 mg PO DAILY PRN #30 cap 10/31/20 03/06/21 Rx denosumab 120 mg/1.7 mL (70 mg/mL) 120 mg SUBCUT MONTHLY ml 11/18/20 03/06/21 History subcutaneous solution lenalidomide 10 mg capsule 10 mg PO DAILY cap 11/18/20 03/06/21 History hydrocortisone acetate 1 % topical 1 applic TOPICAL DAILY PRN #28.4 g 12/04/20 03/06/21 Rx cream nystatin 100,000 unit/gram topical 1 applic TOPICAL DAILY PRN 12/04/20 03/06/21 History powder furosemide 20 mg tablet 20 mg PO QAM #90 tab 12/30/20 03/06/21 Rx ketotifen fumarate 0.025 % (0.035 1 drp OP BID PRN ml 01/13/21 03/06/21 History %) eye drops warfarin 4 mg tablet 8 mg PO DAILY #60 tab 03/02/21 03/06/21 Rx multivitamin 1 tab PO DAILY 03/06/21 03/06/21 History venlafaxine 75 mg PO QAM 03/06/21 03/06/21 History warfarin 1 mg PO 2XWK 03/06/21 03/06/21 History 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; s/p surgery, radiation, chemo (receiving weekly oral/IV chemo Fridays + dexamethasone 40mg pretreatment prior to chemo) Positional vertigo Post herpetic neuralgia hx shingles Post-menopausal bleeding Pulmonary embolism years ago (no definitive etiology)- on warfarin Sleep apnea CPAP + 2 LPM O2 qhs Urinary leakage Surgical History H/O surgical biopsy Right distal humerus 11/21/18 History of appendectomy History of bilateral carpal tunnel release History of cataract surgery Bilateral History of cholecystectomy History of endometrial biopsy History of knee replacement procedure of left knee History of knee replacement procedure of right knee History of surgery right distal humerus replacement History of tonsillectomy S/P dilation and curettage S/P tooth extraction S/P tubal ligation Family History Mother , 89yo Myocardial infarction Congestive heart failure Father , Pt unsure of details of father's health history;Knows he had facial cancer Malignant neoplasm of oral cavity Sister , May 2019 of copd Diabetes Breast cancer Son Hypertension Grandmother Diabetes Denies family history of Prostate cancer Lung cancer Colorectal cancer Social History Smoking Status: Never smoker Second Hand Exposure: No; Hx Alcohol Use: No Hx Substance Use: No Preferred Language: Nigerien Communication Ability: Effective Visual Impairment: No Limitations Hearing Ability: Normal Advertising Project Manager Required: No Beliefs That Will Affect Care: None marital status: Current Living Situation: Alone Current Living Situation Comment: family checks in current occupational status: retired 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 Other Information That Helps Us Care for You: No Feels Safe at Home: Yes Safety Concerns: Feels Safe At This Time Childhood Exposure to Second-Hand Smoke: No caffeine: Yes (1 cup/day) during the past year weight has: remained stable Dental Care, Regularly: No Physical Activity Frequency: Does not Exercise Seatbelt Use: always Sunscreen Use: Yes Assistive Devices: Denture - Upper, Denture - Lower and Glasses Assistive Devices Comment: not present Review of Systems Review of Systems: All systems reviewed & are unremarkable except as noted in HPI & below Physical Exam Physical Exam: General: obese, elderly female patient resting comfortably, NAD, non-toxic in appearance, AA&O x 4 Skin: warm, dry, intact, no rashes or lesions HEENT: NC/AT, PERRL, EOMI, anicteric sclera, conjunctiva without injection, external ear normal to inspection and nontender, nares patent, dry mucus membranes, dentition intact, no oropharyngeal lesions, neck supple, trachea midline, no LAD, no thyromegaly, no JVD Heart: +S1/S2, regular, no m/r/g Lungs: diminished breath sounds bilaterally with faint crackles diffusely Abd: +BS, soft, NT/ND, no masses/organomegaly/ascites Ext: warm, 2+ pulses in UE/LE bilaterally, no clubbing/cyanosis, 1+ pitting edema to knees Neuro: nonfocal, patient AA&O x 4, speech intact, no facial droop, moving all extremities on command with equal strength 5/5 Results & Data Results & Data ([facility]) Vital Signs (Past 12 Hours) Vital Signs Temp Pulse Resp BP Pulse Ox 03/06/21 22:45 72 23 91/45 L 94 03/06/21 22:40 74 27 H 94 03/06/21 22:35 74 28 H 90/50 L 94 03/06/21 22:32 67 26 H 68/47 L 93 03/06/21 22:31 69 24 71/37 L 03/06/21 22:30 73 25 H 03/06/21 22:20 72 25 H 91 03/06/21 22:17 71 24 03/06/21 22:16 73 25 H 93/42 L 03/06/21 22:10 75 25 H 03/06/21 22:01 74 27 H 90/60 L 03/06/21 22:00 78 15 03/06/21 21:50 75 03/06/21 21:46 77 15 101/85 03/06/21 21:40 76 20 95 03/06/21 21:33 76 28 H 73/48 L 96 03/06/21 21:12 25 H 95 03/06/21 21:10 80/39 L 03/06/21 21:02 85 18 94 03/06/21 21:00 73 26 H 77/48 L 93 03/06/21 20:57 74 25 H 82/42 L 93 03/06/21 20:50 74 22 94 03/06/21 20:42 25 H 93 03/06/21 20:40 82 27 H 94 03/06/21 20:34 75 26 H 93 03/06/21 20:32 94 03/06/21 20:30 74 28 H 82/47 L 93 03/06/21 20:26 37.2 C 74 25 H 96/50 L 94 Laboratory Results Lab Results 03/06/21 03/06/21 03/06/21 Range/Units 20:45 20:45 20:45 WBC 4.02 L (4.8-10.8) K/uL RBC 2.99 L (4.2-5.4) M/uL Hgb 10.5 L (12.0-16.0) g/dL Hct 29.8 L (37-47) % MCV 99.7 (80-100) fL MCH 35.1 H (25-34) pg MCHC 35.2 (32-36) g/dL RDW Std Deviation 55.2 H (36.4-46.3) fL RDW Coeff of Giuseppe 15.1 H (11.5-14.5) % Plt Count 135 (130-400) K/uL MPV 11.6 H (7.4-10.4) fL Immature Gran % (Auto) 0.0 % Neut % (Auto) 75.0 % Lymph % (Auto) 12.9 % Linn % (Auto) 11.4 % Eos % (Auto) 0.2 % Baso % (Auto) 0.5 % Neut # (Auto) 3.01 (1.4-6.5) K/uL Lymph # (Auto) 0.52 L (1.2-3.4) K/uL Linn # (Auto) 0.46 (0.11-0.59) K/uL Eos # (Auto) 0.01 (0-0.5) K/uL Baso # (Auto) 0.02 (0-0.2) K/uL Immature Gran # (Auto) 0.00 (0.00-0.02) K/uL PT 26.8 H (9.0-12.0) Seconds INR 2.9 H (0.9-1.1) APTT 41.9 H (21.0-31.0) Seconds PTT Ratio 1.6 VBG pH (7.36-7.41) VBG pCO2 (38-50) mmHg VBG pO2 mmHg VBG HCO3 mmol/L VBG O2 Saturation % VBG Base Excess mEq/L Barometric Pressure mm/Hg Sodium 133 L (136-145) mmol/L Potassium 4.0 (3.5-5.1) mmol/L Chloride 102 (98-107) mmol/L Carbon Dioxide 26 (21-32) mmol/L Anion Gap 6.0 (3-11) BUN 21 H (7-18) mg/dl Creatinine 1.15 (0.6-1.2) mg/dl Est Cr Clr Drug Dosing 46.1 ml/min Est GFR ( Amer) 52.0 Est GFR (Non-Af Amer) 44.9 BUN/Creatinine Ratio 17.9 (10-20) Glucose 98 (70-99) mg/dl POC Glucose (70-99) mg/dl Lactate (0.4-2.0) mmol/L Calcium 8.6 (8.5-10.1) mg/dl Magnesium 1.8 (1.8-2.4) mg/dl Total Bilirubin 0.4 (0.2-1) mg/dl AST 29 (15-37) U/L ALT 20 (12-78) U/L Alkaline Phosphatase 74 (45-117) U/L Troponin I 0.020 (0-0.045) ng/ml Total Protein 6.8 (6.4-8.2) gm/dl Albumin 2.5 L (3.4-5.0) gm/dl Globulin 4.3 H (2.5-4.0) gm/dl Albumin/Globulin Ratio 0.6 L (0.9-2) Procalcitonin (0-0.5) ng/ml 03/06/21 03/06/21 03/06/21 Range/Units 20:45 20:49 22:34 WBC (4.8-10.8) K/uL RBC (4.2-5.4) M/uL Hgb (12.0-16.0) g/dL Hct (37-47) % MCV (80-100) fL MCH (25-34) pg MCHC (32-36) g/dL RDW Std Deviation (36.4-46.3) fL RDW Coeff of Giuseppe (11.5-14.5) % Plt Count (130-400) K/uL MPV (7.4-10.4) fL Immature Gran % (Auto) % Neut % (Auto) % Lymph % (Auto) % Linn % (Auto) % Eos % (Auto) % Baso % (Auto) % Neut # (Auto) (1.4-6.5) K/uL Lymph # (Auto) (1.2-3.4) K/uL Linn # (Auto) (0.11-0.59) K/uL Eos # (Auto) (0-0.5) K/uL Baso # (Auto) (0-0.2) K/uL Immature Gran # (Auto) (0.00-0.02) K/uL PT (9.0-12.0) Seconds INR (0.9-1.1) APTT (21.0-31.0) Seconds PTT Ratio VBG pH (7.36-7.41) VBG pCO2 (38-50) mmHg VBG pO2 mmHg VBG HCO3 mmol/L VBG O2 Saturation % VBG Base Excess mEq/L Barometric Pressure mm/Hg Sodium (136-145) mmol/L Potassium (3.5-5.1) mmol/L Chloride (98-107) mmol/L Carbon Dioxide (21-32) mmol/L Anion Gap (3-11) BUN (7-18) mg/dl Creatinine (0.6-1.2) mg/dl Est Cr Clr Drug Dosing ml/min Est GFR ( Amer) Est GFR (Non-Af Amer) BUN/Creatinine Ratio (10-20) Glucose (70-99) mg/dl POC Glucose 106 H (70-99) mg/dl Lactate 1.3 (0.4-2.0) mmol/L Calcium (8.5-10.1) mg/dl Magnesium (1.8-2.4) mg/dl Total Bilirubin (0.2-1) mg/dl AST (15-37) U/L ALT (12-78) U/L Alkaline Phosphatase (45-117) U/L Troponin I (0-0.045) ng/ml Total Protein (6.4-8.2) gm/dl Albumin (3.4-5.0) gm/dl Globulin (2.5-4.0) gm/dl Albumin/Globulin Ratio (0.9-2) Procalcitonin 0.20 (0-0.5) ng/ml 03/06/21 Range/Units 22:34 WBC (4.8-10.8) K/uL RBC (4.2-5.4) M/uL Hgb (12.0-16.0) g/dL Hct (37-47) % MCV (80-100) fL MCH (25-34) pg MCHC (32-36) g/dL RDW Std Deviation (36.4-46.3) fL RDW Coeff of Giuseppe (11.5-14.5) % Plt Count (130-400) K/uL MPV (7.4-10.4) fL Immature Gran % (Auto) % Neut % (Auto) % Lymph % (Auto) % Linn % (Auto) % Eos % (Auto) % Baso % (Auto) % Neut # (Auto) (1.4-6.5) K/uL Lymph # (Auto) (1.2-3.4) K/uL Linn # (Auto) (0.11-0.59) K/uL Eos # (Auto) (0-0.5) K/uL Baso # (Auto) (0-0.2) K/uL Immature Gran # (Auto) (0.00-0.02) K/uL PT (9.0-12.0) Seconds INR (0.9-1.1) APTT (21.0-31.0) Seconds PTT Ratio VBG pH 7.38 (7.36-7.41) VBG pCO2 44 (38-50) mmHg VBG pO2 53 mmHg VBG HCO3 26 mmol/L VBG O2 Saturation 85.2 % VBG Base Excess 0.2 mEq/L Barometric Pressure 732.8 mm/Hg Sodium (136-145) mmol/L Potassium (3.5-5.1) mmol/L Chloride (98-107) mmol/L Carbon Dioxide (21-32) mmol/L Anion Gap (3-11) BUN (7-18) mg/dl Creatinine (0.6-1.2) mg/dl Est Cr Clr Drug Dosing ml/min Est GFR ( Amer) Est GFR (Non-Af Amer) BUN/Creatinine Ratio (10-20) Glucose (70-99) mg/dl POC Glucose (70-99) mg/dl Lactate (0.4-2.0) mmol/L Calcium (8.5-10.1) mg/dl Magnesium (1.8-2.4) mg/dl Total Bilirubin (0.2-1) mg/dl AST (15-37) U/L ALT (12-78) U/L Alkaline Phosphatase (45-117) U/L Troponin I (0-0.045) ng/ml Total Protein (6.4-8.2) gm/dl Albumin (3.4-5.0) gm/dl Globulin (2.5-4.0) gm/dl Albumin/Globulin Ratio (0.9-2) Procalcitonin (0-0.5) ng/ml Diagnostic Findings CXR - by my interpretation - dual lead pacer in place, cardiomegaly, bilateral airspace disease CT Head - Involutional and chronic small vessel ischemic changes. Mild mucosal thickening in the ethmoid air cells. No skull fracture. 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 Code Status & VTE Plan VTE Prophylaxis Plan VTE Prophylaxis will be ordered: Yes PG Care Time/CCT Total # of Minutes Spent Total Time Spent with Patient: Total time spent is greater than 50% in coordination of care (as documented) at patient's floor/unit and/or counseling patient: Coding Level of Care Code 86211 Initial Inpt Care Lvl 3 Diagnoses Pneumonia due to 2019 novel coronavirus U07.1; J12.82 Sepsis A41.9 Sepsis acute organ dysfunction status: unspecified Sepsis type: sepsis due to unspecified organism Aortic stenosis I35.0 Cardiac valve disease etiology: etiology unspecified 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, type 2 E11.9 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 insulin use: without alf use 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 complication status: without complication Hyperlipidemia E78.5 Hyperlipidemia type: unspecified Depression F32.9 Depression Type: major depressive disorder Major depression recurrence: unspecified whether recurrent Active/Remission status: remission status unspecified Pulmonary embolism I26.99 Myeloma C90.00 Multiple myeloma remission status: not in remission (1) Sepsis Sepsis acute organ dysfunction status: unspecified Sepsis type: sepsis due to unspecified organism Qualified Code(s): A41.9 - Sepsis, unspecified organism (2) Aortic stenosis Cardiac valve disease etiology: etiology unspecified Qualified Code(s): I35.0 - Nonrheumatic aortic (valve) stenosis (3) 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, type 2 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 alf insulin use: without alf use 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 complication status: without complication Qualified Code(s): E11.9 - Type 2 diabetes mellitus without complications (4) Hyperlipidemia Hyperlipidemia type: unspecified Qualified Code(s): E78.5 - Hyperlipidemia, unspecified (5) Myeloma Multiple myeloma remission status: not in remission Qualified Code(s): C90.00 - Multiple myeloma not having achieved remission (6) Depression Depression Type: major depressive disorder Major depression recurrence: unspecified whether recurrent Active/Remission status: remission status unspecified Qualified Code(s): F32.9 - Major depressive disorder, single episode, unspecified
[2021-03-07] MEDS ORDERED: GLUCAGON FOR INJ 1 MG VIAL SQ PRN (01:15)
[2021-03-07] MEDS ORDERED: REMDESIVIR 200 MG in SODIUM CHLORIDE 0.9% 210 ML IV STA (01:15)
[2021-03-07] MEDS ORDERED: AZITHROMYCIN 500 MG in DEXTROSE 5% 250 ML IV STA (01:15)
[2021-03-07] MEDS ORDERED: CARBOHYDRATES FOR HYPOGLYCEMIA PO PRN (01:15)
[2021-03-07] MEDS ORDERED: GLUCOSE 10 TABS/TUBE PO PRN (01:15)
[2021-03-07] MEDS ORDERED: guaiFENesin SUGAR FREE 100 MG/5 ML UDC PO PRN (01:15)
[2021-03-07] MEDS ORDERED: GLUCOSE 40% GEL 15 GM TUBE PO PRN (01:15)
[2021-03-07] MEDS ORDERED: ONDANSETRON INJ 2 MG/ML 2 ML VIAL IV PRN (01:15)
[2021-03-07] MEDS ORDERED: ACETAMINOPHEN 325 MG TAB PO PRN (01:15)
[2021-03-07] MEDS ORDERED: oxyCODONE HCL IR 5 MG TAB (IMMEDIATE RELEASE) PO PRN (01:15)
[2021-03-07] MEDS ORDERED: DEXTROSE 50% 50 ML SYRINGE IV PRN (01:15)
[2021-03-07] MEDS: dexAMETHasone 6 MG in SYRINGE 0 ML IV SCH (02:03)
[2021-03-07] MEDS: SODIUM CHLORIDE 0.9% 10ML FLUSH IV SCH ×2 (04:28→21:23)
[2021-03-07 06:14] LABS: Appearance Urine Clear (Clear); Bacteria Urine Automated Negative (Negative); Bilirubin Urine Negative (Negative); Blood Urine Trace (Negative); Color Urine Yellow; Epithelial Cell Urine Auto >30 /lpf (0-5); Glucose Urine UA Negative (Negative); Ketones Urine Negative (Negative); Leukocyte Esterase Urine 2+ (Negative); Nitrite Urine Negative (Negative); Protein Urine 1+ (Negative); RBC Urine Automated 0-4 /hpf (0-4); Specific Gravity Urine 1.014 (1.000-1.030); Urobilinogen Urine Negative (Negative); WBC Urine Automated >30 /hpf (0-5)
[2021-03-07] MEDS: SODIUM CHLORIDE 0.9% 500 ML IV SCH (07:30)
[2021-03-07 07:33] LABS: Basophils # (auto) 0.02 K/uL (0-0.2); Basophils % (auto) 0.5 %; Eosinophils # (auto) 0.01 K/uL (0-0.5); Eosinophils % (auto) 0.3 %; Hematocrit (blood only) 29.5 % (37-47); Immature Granulocytes # (auto) 0.01 K/uL (0.00-0.02); Immature Granulocytes % (auto) 0.3 %; Lymphocytes # (auto) 0.43 K/uL (1.2-3.4); Lymphocytes % (auto) 11.7 %; Mean Corpuscular Hemoglobin 33.9 pg (25-34); Mean Corpuscular Hgb Conc 33.9 g/dL (32-36); Mean Platelet Volume 11.2 fL (7.4-10.4); Monocytes # (auto) 0.23 K/uL (0.11-0.59); Monocytes % (auto) 6.3 %; Neutrophils # (auto) 2.98 K/uL (1.4-6.5); Neutrophils % (auto) 80.9 %; Platelet Count 128 K/uL (130-400); RDW Standard Deviation 55.3 fL (36.4-46.3); Red Blood Count 2.95 M/uL (4.2-5.4); White Blood Count 3.68 K/uL (4.8-10.8)
[2021-03-07 07:42] LABS: INR 3.2 (0.9-1.1); Prothrombin Time 29.9 Seconds (9.0-12.0)
--- NOTE | 2021-03-07 08:03 | CT Scan Report ---
CT SCAN OF THE BRAIN WITHOUT IV CONTRAST CLINICAL HISTORY: Headache. Covid. Multiple myeloma. COMPARISON STUDY: MRI of the brain dated 04/14/2007. TECHNIQUE: Unenhanced axial CT scan of the brain is performed from the vertex to the skull base. A do se lowering technique was utilized adhering to the principles of ALARA. CT DOSE: 574.70 mGycm FINDINGS: Brain parenchyma: There are age-related involutional changes noting mild to moderate subcortical and periventricular microangiopathic change. There is no hemorrhage, mass effect, or evidence of acute t erritorial ischemia by CT criteria. Fields-white matter differentiation is preserved. No extra-axial fl uid collection is seen. Ventricles, sulci, cisterns: Prominent secondary to involutional change. Intracranial vasculature: There is atherosclerotic calcification of the cavernous carotid and vertebr al arteries. Calvarium: There are numerous osteolytic calvarial lesions. No depressed calvarial fracture is identi fied. Sinuses and mastoids: The visualized paranasal sinuses are clear. There is trace left mastoid effusio n. The right mastoid air cells are well pneumatized. Orbits: The bony orbits are grossly intact. There are bilateral ocular lens implants. IMPRESSION: 1. There is no hemorrhage, mass effect, or evidence of acute territorial ischemia by CT criteria. 2. Numerous osteolytic calvarial lesions are identified and consistent with the patient's known histo ry of multiple myeloma. ACT 112: Negative or not required by law. Electronically signed by: Mikey Ba M.D. 03/07/2021 8:02 AM
[2021-03-07 08:09] LABS: Alanine Aminotransferase 19 U/L (12-78); Albumin Level 2.2 gm/dl (3.4-5.0); Aspartate Aminotransferase 28 U/L (15-37); BUN Creatinine Ratio 18.3 (10-20); Bilirubin Direct < 0.1 mg/dl (0-0.2); Blood Urea Nitrogen 16 mg/dl (7-18); Calcium 7.8 mg/dl (8.5-10.1); Carbon Dioxide 24 mmol/L (21-32); Chloride 107 mmol/L (98-107); Creatinine Clr Calc Pharmacy 57.1 ml/min; Est GFR (African American) 70.9; Est GFR (Non-African American) 61.2; Glucose 164 mg/dl (70-99); Potassium 4.1 mmol/L (3.5-5.1); Sodium 137 mmol/L (136-145)
[2021-03-07 08:14] LABS: Alkaline Phosphatase 69 U/L (45-117); Bilirubin,Total 0.3 mg/dl (0.2-1); Total Protein 6.4 gm/dl (6.4-8.2); Troponin I < 0.015 ng/ml (0-0.045)
[2021-03-07 08:21] LABS: Ovalocytes 1+
--- NOTE | 2021-03-07 08:21 | XRay Report ---
SINGLE VIEW CHEST CLINICAL HISTORY: Dyspnea. FINDINGS: An AP, portable, semierect chest radiograph is compared to study dated 09/28/2017 and corre lated with chest CT dated 05/02/2008. The examination is degraded by portable technique, apical lordot ic positioning, and patient rotation. A 2-lead cardiac pacemaker is in place. The heart is enlarged n oting atherosclerotic calcification of the thoracic aorta. There is pulmonary vascular congestion. Bi lateral airspace opacities are noted. No large pleural effusion or Pneumothorax is seen. The skeletal structures are osteopenic. The bony thorax is grossly intact. Degenerative change is noted in the sh oulders and thoracic spine. IMPRESSION: 1. Cardiomegaly and cardiac pacemaker with evidence of congestive failure. 2. Bilateral airspace opacities could represent pulmonary edema and/or an infectious/inflammatory pne umonitis. Clinical correlation will be required and radiographic follow-up to resolution is recommend ed. ACT 112: Negative or not required by law. Electronically signed by: Mikey Ba M.D. 03/07/2021 8:20 AM
[2021-03-07] MEDS: CHOLECALCIFEROL 1,000 UNITS 25 MCG TAB PO SCH (09:18)
[2021-03-07] MEDS: ATORVASTATIN 10 MG TAB PO SCH (09:18)
[2021-03-07] MEDS: ASCORBIC ACID 500 MG TAB PO SCH (09:18)
[2021-03-07] MEDS: ACYCLOVIR 400 MG TAB PO SCH ×2 (09:18→21:19)
[2021-03-07] MEDS: cefTRIAXone SODIUM 2,000 MG in DEXTROSE 5% 50 ML IV SCH (09:18)
[2021-03-07] MEDS: VENLAFAXINE HCL XR 75 MG CAPXR PO SCH (09:19)
[2021-03-07] MEDS: INSULIN ASPART 100 UNITS/ML 3 ML PEN SC SCH ×4 (09:30→21:32)
[2021-03-07] MEDS: INSULIN GLARGINE SOLOSTAR 100 UNITS/ML 3 ML PEN SC SCH ×2 (09:43→21:33)
--- NOTE | 2021-03-07 10:58 | Hospitalist Progress Note ---
Date of Service March 07, 2021 Assessment & Plan (1) Sepsis: 2nd to COVID-19 pneumonia. Cannot exclude bacterial superinfection/pneumonia. s/p multiple fluid boluses in ER. BPs improved with such. Follow blood cx's. Cont rocephin/zithromax to cover bacterial pneumonia and blood while cultures are pending. (2) Acute on chronic respiratory failure with hypoxia: acute component 2nd COVID-19 pneumonia. Chronic - 2 L NC O2 continuously. see below for acute COVID-19 Rx. (3) Pneumonia due to 2019 novel coronavirus: Dexamethasone 6mg IV daily x 10 days; day #1 today. Remdesivir per 5 day protocol. Daily ast/alt. Supplemental O2, O2 sats goal 90-92%. Out of window for convalescent plasma. Proning discussed; patient unlikely to be able to tolerate. Try side positioning. Empiric rocephin/zithromax to cover for secondary bacterial infection. Flutter valve/incentive/pulm toilet. Add mucinex 1200mg BID. (4) Pancytopenia: likely 2nd to MM but cannot exclude COVID-19 contributing to bone marrow suppression. daily CBC. (5) Aortic stenosis: moderate to severe noted on echo on 08/13/20 with preserved EF of 55-6 0%. 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 Remote history of PE. On Coumadin anticoagulation. 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 She had a PET scan performed on 07/23/19 which showed innumerable lytic lesions involving right parietal bone, left parietal bone, ribs. CT head with calvarial lesions most consistent with her underlying disease of MM. She follows with Oncology - Dr Jorge Allen, [facility] h/o. I spoke with Dr Allen - he agrees we should hold weekly velcade while ill. Continue Acyclovir. 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 (13) DVT prophylaxis: coumadin daughter from [place] updated by phone today care d/w Dr Allen from heme/onc Admission and Anticipated Discharge Date Admission Date: March 06, 2021 Subjective patient w/ ongoing cough, congestion, FULTON she is on 1 liter of O2 more so than baseline (2 L at baseline) fatigue is biggest complaint she asks if she should use her velcade SC shot today for MM/plasmacytoma - sees Jorge SZYMANSKI at [facility] heme/onc denies pain in any location daughter from [place] recently ill with COVID daughter was visiting from [place] recently during a family get-together Review of Systems Constitutional: + fatigue; no fever and no chills Ear, Nose, Mouth, Throat: no nasal congestion and no sore throat denies loss of taste Respiratory: + cough, + dyspnea and + dyspnea on exertion Cardiovascular: no chest pain Gastrointestinal: no abdominal pain Physical Exam Constitutional: + morbidly obese; no acute distress and no altered mental status ENMT: external ear and nose normal, oropharynx normal Respiratory: Auscultation: + diminished lung sounds (bases) and + crackles (scattered - bases ) Cardiovascular: Rate/Rhythm: regular rate and regular rhythm Heart Sounds: normal S1, normal S2 and + murmur (2/6 holosystolic RUSB ) Vessels: posterior tibial pulses present and dorsalis pedis pulses present; no JVD Extremities: no edema Gastrointestinal (Abdomen): normal bowel sounds, soft, nontender, no hepatos plenomegaly Psychiatric: A+Ox3, euthymic affect Results & Data Results & Data ([facility]) Vital Signs (Past 12 Hours) Vital Signs Temp Pulse Pulse Resp BP BP Pulse Ox 03/07/21 08:01 76 03/07/21 07:15 36.6 C 77 20 123/73 94 03/07/21 03:23 36.9 C 77 18 120/70 95 03/07/21 02:12 72 27 H 96 03/07/21 01:15 36.6 C 75 20 120/80 93 03/07/21 00:23 36.6 C 75 20 120/80 93 03/06/21 23:20 74 22 97 03/06/21 23:18 75 24 96/56 L 97 03/06/21 23:15 73 24 85/53 L 93 03/06/21 23:10 72 23 93 03/06/21 23:00 73 25 H 82/44 L 93 Pulse Ox 03/07/21 08:01 03/07/21 07:15 03/07/21 03:23 03/07/21 02:12 03/07/21 01:15 97 03/07/21 00:23 03/06/21 23:20 03/06/21 23:18 03/06/21 23:15 03/06/21 23:10 03/06/21 23:00 Laboratory Results Laboratory Results - last 24 hr 03/06/21 03/06/21 03/06/21 20:45 20:45 20:45 WBC 4.02 L RBC 2.99 L Hgb 10.5 L Hct 29.8 L MCV 99.7 MCH 35.1 H MCHC 35.2 RDW Std Deviation 55.2 H RDW Coeff of Giuseppe 15.1 H Plt Count 135 MPV 11.6 H Immature Gran % (Auto) 0.0 Neut % (Auto) 75.0 Lymph % (Auto) 12.9 [place] % (Auto) 11.4 Eos % (Auto) 0.2 Baso % (Auto) 0.5 Neut # (Auto) 3.01 Lymph # (Auto) 0.52 L [place] # (Auto) 0.46 Eos # (Auto) 0.01 Baso # (Auto) 0.02 Immature Gran # (Auto) 0.00 Ovalocytes PT 26.8 H INR 2.9 H APTT 41.9 H PTT Ratio 1.6 VBG pH VBG pCO2 VBG pO2 VBG HCO3 VBG O2 Saturation VBG Base Excess Barometric Pressure Sodium 133 L Potassium 4.0 Chloride 102 Carbon Dioxide 26 Anion Gap 6.0 BUN 21 H Creatinine 1.15 Est Cr Clr Drug Dosing 46.1 Est GFR ( Amer) 52.0 Est GFR (Non-Af Amer) 44.9 BUN/Creatinine Ratio 17.9 Glucose 98 POC Glucose Lactate Calcium 8.6 Phosphorus 3.0 Magnesium 1.8 Total Bilirubin 0.4 Direct Bilirubin AST 29 ALT 20 Alkaline Phosphatase 74 Total Creatine Kinase 184 Troponin I 0.020 NT-Pro-B Natriuret Pep 2211 H Total Protein 6.8 Albumin 2.5 L Globulin 4.3 H Albumin/Globulin Ratio 0.6 L Procalcitonin Urine Color Urine Appearance Urine pH Ur Specific Merritt Urine Protein Urine Glucose (UA) Urine Ketones Urine Blood Urine Nitrite Urine Bilirubin Urine Urobilinogen Ur Leukocyte Esterase Urine WBC (Auto) Urine RBC (Auto) U Hyaline Cast (Auto) U Epithel Cells (Auto) Urine Bacteria (Auto) Ur Renal Epithelial Cell Granular Casts 03/06/21 03/06/21 03/06/21 20:45 20:49 22:34 WBC RBC Hgb Hct MCV MCH MCHC RDW Std Deviation RDW Coeff of Giuseppe Plt Count MPV Immature Gran % (Auto) Neut % (Auto) Lymph % (Auto) [place] % (Auto) Eos % (Auto) Baso % (Auto) Neut # (Auto) Lymph # (Auto) [place] # (Auto) Eos # (Auto) Baso # (Auto) Immature Gran # (Auto) Ovalocytes PT INR APTT PTT Ratio VBG pH VBG pCO2 VBG pO2 VBG HCO3 VBG O2 Saturation VBG Base Excess Barometric Pressure Sodium Potassium Chloride Carbon Dioxide Anion Gap BUN Creatinine Est Cr Clr Drug Dosing Est GFR ( Amer) Est GFR (Non-Af Amer) BUN/Creatinine Ratio Glucose POC Glucose 106 H Lactate 1.3 Calcium Phosphorus Magnesium Total Bilirubin Direct Bilirubin AST ALT Alkaline Phosphatase Total Creatine Kinase Troponin I NT-Pro-B Natriuret Pep Total Protein Albumin Globulin Albumin/Globulin Ratio Procalcitonin 0.20 Urine Color Urine Appearance Urine pH Ur Specific [place] Urine Protein Urine Glucose (UA) Urine Ketones Urine Blood Urine Nitrite Urine Bilirubin Urine Urobilinogen Ur Leukocyte Esterase Urine WBC (Auto) Urine RBC (Auto) U Hyaline Cast (Auto) U Epithel Cells (Auto) Urine Bacteria (Auto) Ur Renal Epithelial Cell Granular Casts 03/06/21 03/07/21 03/07/21 22:34 01:14 05:02 WBC RBC Hgb Hct MCV MCH MCHC RDW Std Deviation RDW Coeff of Giuseppe Plt Count MPV Immature Gran % (Auto) Neut % (Auto) Lymph % (Auto) [place] % (Auto) Eos % (Auto) Baso % (Auto) Neut # (Auto) Lymph # (Auto) [place] # (Auto) Eos # (Auto) Baso # (Auto) Immature Gran # (Auto) Ovalocytes PT INR APTT PTT Ratio VBG pH 7.38 VBG pCO2 44 VBG pO2 53 VBG HCO3 26 VBG O2 Saturation 85.2 VBG Base Excess 0.2 Barometric Pressure 732.8 Sodium Potassium Chloride Carbon Dioxide Anion Gap BUN Creatinine Est Cr Clr Drug Dosing Est GFR ( Amer) Est GFR (Non-Af Amer) BUN/Creatinine Ratio Glucose POC Glucose 95 Lactate Calcium Phosphorus Magnesium Total Bilirubin Direct Bilirubin AST ALT Alkaline Phosphatase Total Creatine Kinase Troponin I NT-Pro-B Natriuret Pep Total Protein Albumin Globulin Albumin/Globulin Ratio Procalcitonin Urine Color Yellow Urine Appearance Clear Urine pH 5.0 Ur Specific [place] 1.014 Urine Protein 1+ H Urine Glucose (UA) Negative Urine Ketones Negative Urine Blood Trace H Urine Nitrite Negative Urine Bilirubin Negative Urine Urobilinogen Negative Ur Leukocyte Esterase 2+ H Urine WBC (Auto) >30 H Urine RBC (Auto) 0-4 U Hyaline Cast (Auto) 1-5 U Epithel Cells (Auto) >30 H Urine Bacteria (Auto) Negative Ur Renal Epithelial Cell 10-20 H Granular Casts 1-5 H 03/07/21 03/07/21 03/07/21 07:01 07:01 07:01 WBC 3.68 L RBC 2.95 L Hgb 10.0 L Hct 29.5 L MCV 100.0 MCH 33.9 MCHC 33.9 RDW Std Deviation 55.3 H RDW Coeff of Giuseppe 15.0 H Plt Count 128 L MPV 11.2 H Immature Gran % (Auto) 0.3 Neut % (Auto) 80.9 Lymph % (Auto) 11.7 [place] % (Auto) 6.3 Eos % (Auto) 0.3 Baso % (Auto) 0.5 Neut # (Auto) 2.98 Lymph # (Auto) 0.43 L [place] # (Auto) 0.23 Eos # (Auto) 0.01 Baso # (Auto) 0.02 Immature Gran # (Auto) 0.01 Ovalocytes 1+ PT 29.9 H INR 3.2 H APTT PTT Ratio VBG pH VBG pCO2 VBG pO2 VBG HCO3 VBG O2 Saturation VBG Base Excess Barometric Pressure Sodium 137 Potassium 4.1 Chloride 107 Carbon Dioxide 24 Anion Gap 6.0 BUN 16 Creatinine 0.89 Est Cr Clr Drug Dosing 57.1 Est GFR ( Amer) 70.9 Est GFR (Non-Af Amer) 61.2 BUN/Creatinine Ratio 18.3 Glucose 164 H POC Glucose Lactate Calcium 7.8 L Phosphorus Magnesium Total Bilirubin 0.3 Direct Bilirubin < 0.1 AST 28 ALT 19 Alkaline Phosphatase 69 Total Creatine Kinase Troponin I < 0.015 NT-Pro-B Natriuret Pep Total Protein 6.4 Albumin 2.2 L Globulin Albumin/Globulin Ratio Procalcitonin Urine Color Urine Appearance Urine pH Ur Specific [place] Urine Protein Urine Glucose (UA) Urine Ketones Urine Blood Urine Nitrite Urine Bilirubin Urine Urobilinogen Ur Leukocyte Esterase Urine WBC (Auto) Urine RBC (Auto) U Hyaline Cast (Auto) U Epithel Cells (Auto) Urine Bacteria (Auto) Ur Renal Epithelial Cell Granular Casts 03/07/21 07:13 WBC RBC Hgb Hct MCV MCH MCHC RDW Std Deviation RDW Coeff of Giuseppe Plt Count MPV Immature Gran % (Auto) Neut % (Auto) Lymph % (Auto) [place] % (Auto) Eos % (Auto) Baso % (Auto) Neut # (Auto) Lymph # (Auto) [place] # (Auto) Eos # (Auto) Baso # (Auto) Immature Gran # (Auto) Ovalocytes PT INR APTT PTT Ratio VBG pH VBG pCO2 VBG pO2 VBG HCO3 VBG O2 Saturation VBG Base Excess Barometric Pressure Sodium Potassium Chloride Carbon Dioxide Anion Gap BUN Creatinine Est Cr Clr Drug Dosing Est GFR ( Amer) Est GFR (Non-Af Amer) BUN/Creatinine Ratio Glucose POC Glucose 181 H Lactate Calcium Phosphorus Magnesium Total Bilirubin Direct Bilirubin AST ALT Alkaline Phosphatase Total Creatine Kinase Troponin I NT-Pro-B Natriuret Pep Total Protein Albumin Globulin Albumin/Globulin Ratio Procalcitonin Urine Color Urine Appearance Urine pH Ur Specific [place] Urine Protein Urine Glucose (UA) Urine Ketones Urine Blood Urine Nitrite Urine Bilirubin Urine Urobilinogen Ur Leukocyte Esterase Urine WBC (Auto) Urine RBC (Auto) U Hyaline Cast (Auto) U Epithel Cells (Auto) Urine Bacteria (Auto) Ur Renal Epithelial Cell Granular Casts PG Care Time/CCT Total # of Minutes Spent Total Time Spent with Patient: Total time spent is greater than 50% in coordination of care (as documented) at patient's floor/unit and/or counseling patient: Coding Level of Care Code 18763 Subseq Hosp Care Lvl 3 Diagnoses Sepsis A41.9 Sepsis acute organ dysfunction status: unspecified Sepsis type: sepsis due to unspecified organism Acute on chronic respiratory failure with hypoxia J96.21 Pneumonia due to 2019 novel coronavirus U07.1; J12.82 Pancytopenia D61.818 Aortic stenosis I35.0 Cardiac valve disease etiology: etiology unspecified 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, type 2 E11.9 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 complication status: without complication 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 longterm insulin use: without longterm use Hyperlipidemia E78.5 Hyperlipidemia type: unspecified Depression F32.9 Active/Remission status: remission status unspecified Depression Type: major depressive disorder Major depression recurrence: unspecified whether recurrent Pulmonary embolism I26.99 Myeloma C90.00 Multiple myeloma remission status: not in remission Morbid obesity with BMI of 50.0-59.9, adult E66.01; Z68.43 Pacemaker Z95.0 DVT prophylaxis Z29.9 (1) 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, type 2 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 complication status: without complication 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 exterminator termite insulin use: without exterminator termite use Qualified Code(s): E11.9 - Type 2 diabetes mellitus without complications (2) Aortic stenosis Cardiac valve disease etiology: etiology unspecified Qualified Code(s): I35.0 - Nonrheumatic aortic (valve) stenosis (3) Depression Active/Remission status: remission status unspecified Depression Type: major depressive disorder Major depression recurrence: unspecified whether recurrent Qualified Code(s): F32.9 - Major depressive disorder, single episode, unspecified (4) Hyperlipidemia Hyperlipidemia type: unspecified Qualified Code(s): E78.5 - Hyperlipidemia, unspecified (5) Sepsis Sepsis acute organ dysfunction status: unspecified Sepsis type: sepsis due to unspecified organism Qualified Code(s): A41.9 - Sepsis, unspecified organism (6) Myeloma Multiple myeloma remission status: not in remission Qualified Code(s): C90.00 - Multiple myeloma not having achieved remission
[2021-03-07] MEDS: guaiFENesin 600 MG TABCR PO SCH ×2 (13:14→21:19)
[2021-03-07] MEDS ORDERED: WARFARIN SOD 4 MG TAB PO SCH (16:00)
[2021-03-07] MEDS: REMDESIVIR 100 MG in SODIUM CHLORIDE 0.9% 230 ML IV SCH (19:56)
[2021-03-07] MEDS: VENLAFAXINE HCL XR 150 MG CAPXR PO SCH (21:19)
[2021-03-08] MEDS: dexAMETHasone 6 MG in SYRINGE 0 ML IV SCH (00:14)
[2021-03-08 06:14] LABS: Hematocrit (blood only) 30.3 % (37-47); Hemoglobin 10.3 g/dL (12.0-16.0); Mean Corpuscular Hemoglobin 34.2 pg (25-34); Mean Corpuscular Volume 100.7 fL (80-100); Mean Platelet Volume 11.3 fL (7.4-10.4); Platelet Count 150 K/uL (130-400); RDW Coefficient of Variation 14.9 % (11.5-14.5); RDW Standard Deviation 54.9 fL (36.4-46.3); Red Blood Count 3.01 M/uL (4.2-5.4); White Blood Count 3.08 K/uL (4.8-10.8)
[2021-03-08 06:23] LABS: INR 3.2 (0.9-1.1); Prothrombin Time 29.4 Seconds (9.0-12.0)
[2021-03-08 06:41] LABS: Basophils # (auto) 0.04 K/uL (0-0.2); Basophils % (auto) 1.3 %; Lymphocytes # (auto) 0.62 K/uL (1.2-3.4); Lymphocytes % (auto) 20.1 %; Monocytes # (auto) 0.36 K/uL (0.11-0.59); Monocytes % (auto) 11.7 %; Neutrophils # (auto) 2.06 K/uL (1.4-6.5); Neutrophils % (auto) 66.9 %; Ovalocytes 1+
[2021-03-08 06:44] LABS: BUN Creatinine Ratio 22.1 (10-20); Calcium 7.8 mg/dl (8.5-10.1); Creatinine Clr Calc Pharmacy 58.1 ml/min; Est GFR (African American) 71.9; Est GFR (Non-African American) 62.1; Potassium 4.5 mmol/L (3.5-5.1)
--- NOTE | 2021-03-08 07:03 | Electrocardiogram Report ---
Test Reason : Blood Pressure : / mmHG Vent. Rate : 076 BPM Atrial Rate : 076 BPM P-R Int : 228 ms QRS Dur : 176 ms QT Int : 490 ms P-R-T Axes : 060 -85 099 degrees QTc Int : 551 ms Atrial-sensed ventricular-paced rhythm with prolonged AV conduction Abnormal ECG When compared with ECG of 11-SEP-2019 13:05, Vent. rate has decreased BY 19 BPM Confirmed by Power Becerril ([id number]) on 03/08/2021 7:03:32 AM Referred By: REFERRED SELF Confirmed By:Power Becerril
[2021-03-08] MEDS: INSULIN ASPART 100 UNITS/ML 3 ML PEN SC SCH ×4 (08:30→20:14)
[2021-03-08] MEDS: ASCORBIC ACID 500 MG TAB PO SCH (08:38)
[2021-03-08] MEDS: ACYCLOVIR 400 MG TAB PO SCH ×2 (08:38→20:17)
[2021-03-08] MEDS: CHOLECALCIFEROL 1,000 UNITS 25 MCG TAB PO SCH (08:38)
[2021-03-08] MEDS: guaiFENesin 600 MG TABCR PO SCH ×2 (08:38→20:17)
[2021-03-08] MEDS: ATORVASTATIN 10 MG TAB PO SCH (08:38)
[2021-03-08] MEDS: VENLAFAXINE HCL XR 75 MG CAPXR PO SCH (08:39)
[2021-03-08] MEDS: cefTRIAXone SODIUM 2,000 MG in DEXTROSE 5% 50 ML IV SCH (08:48)
[2021-03-08] MEDS: INSULIN GLARGINE SOLOSTAR 100 UNITS/ML 3 ML PEN SC SCH ×2 (09:00→20:15)
[2021-03-08] MEDS: AZITHROMYCIN 250 MG in DEXTROSE 5% 250 ML IV SCH (09:49)
[2021-03-08] MEDS ORDERED: WARFARIN SOD 2 MG TAB PO SCH (16:00)
[2021-03-08] MEDS: REMDESIVIR 100 MG in SODIUM CHLORIDE 0.9% 230 ML IV SCH (20:10)
[2021-03-08] MEDS: SODIUM CHLORIDE 0.9% 10ML FLUSH IV SCH (20:16)
[2021-03-08] MEDS: VENLAFAXINE HCL XR 150 MG CAPXR PO SCH (20:18)
--- NOTE | 2021-03-09 00:05 | Hospitalist Progress Note ---
Date of Service March 08, 2021 Assessment & Plan (1) Sepsis: 2nd to COVID-19 pneumonia. Cannot exclude bacterial superinfection/pneumonia. s/p multiple fluid boluses in ER at admission. sepsis resolved at this point. BPs stable. Blood and urine cx's negative. Continue rocephin/zithromax to cover for possibility of bacterial superinfection/pneumonia. (2) Acute on chronic respiratory failure with hypoxia: acute component 2nd COVID-19 pneumonia. Chronic - 2 L NC O2 continuously. Cause? previous PEs? pulmonary HTN? obesity-hypoventilation? other? see below for acute COVID-19 Rx. (3) Pneumonia due to 2019 novel coronavirus: Dexamethasone 6mg IV daily x 10 days; day #2 today. Remdesivir per 5 day/dose protocol -- dose #3 tonight. Daily ast/alt. AST minimally elevated today - trend. Supplemental O2, O2 sats goal 90-92%. Out of window for convalescent plasma. Patient unable to prone, but is getting OOB frequently, sitting in chair, etc. Empiric rocephin/zithromax to cover for secondary bacterial infection. day #2 of each. Flutter valve/incentive/pulm toilet. Cont mucinex 1200mg BID. Resume lasix 20mg po daily tomorrow AM. (4) Pancytopenia: likely 2nd to MM but cannot exclude COVID-19 contributing to bone marrow suppression. CBC stable today. to be complete check b12/folate in am. (5) Aortic stenosis: moderate to severe noted on echo on 08/13/20 with preserved EF of 55- 60%. 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 On Coumadin anticoagulation. 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 She had a PET scan performed on 07/23/19 which showed innumerable lytic lesions involving right parietal bone, left parietal bone, ribs. CT head with calvarial lesions most consistent with her underlying disease of MM. She follows with Oncology - Dr Jorge Allen, [facility] h/o. Most recent office visit in chart was 10/2020 - was on qmonthly Xgeva (denosumab) and daily Revlimid (lenalidomide). Med rec confirms that regimen. I spoke with Dr Allen 03/07 - he agrees we should hold MM agents while ill (was due to receive Xgeva right about now). Continue Acyclovir. 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 (13) DVT prophylaxis: coumadin daughter from [place] updated by phone 03/07 son updated by phone on 03/08 PT, OT care d/w Dr Allen from heme/onc 03/07 Admission and Anticipated Discharge Date Admission Date: March 06, 2021 Subjective tele overnight pacing patient c/o fatigue and FULTON with minimal activity minimal cough eating better no chest pain no abd pain sat in chair yesterday and again this am Review of Systems Constitutional: no fever, no chills and no body aches Ear, Nose, Mouth, Throat: no nasal congestion and no sore throat Respiratory: + cough; no sputum production Cardiovascular: no chest pain Gastrointestinal: no abdominal pain, no nausea, no vomiting and no diarrhea/loose stools Physical Exam Constitutional: + morbidly obese; no acute distress (although gets dyspneic with minimal activity in bed) and no altered mental status ENMT: external ear and nose normal, oropharynx normal Respiratory: Auscultation: + diminished lung sounds (bases) and + crackles (scattered - bases ) Cardiovascular: Rate/Rhythm: regular rate and regular rhythm Heart Sounds: normal S1, normal S2 and + murmur (2/6 holosystolic RUSB ) Vessels: posterior tibial pulses present and dorsalis pedis pulses present; no JVD Extremities: + edema (<1+ b/l ) Gastrointestinal (Abdomen): normal bowel sounds, soft, nontender, no hepato splenomegaly Skin: venous stasis changes b/l legs Psychiatric: A+Ox3, euthymic affect Results & Data Results & Data ([facility]) Vital Signs (Past 12 Hours) Vital Signs Temp Pulse Pulse Resp BP Pulse Ox 03/08/21 23:17 36.7 C 72 18 165/88 H 94 03/08/21 19:17 36.8 C 80 16 154/75 H 98 03/08/21 16:00 80 03/08/21 15:37 36.7 C 77 20 155/95 H 97 Laboratory Results Laboratory Results - last 24 hr 03/08/21 03/08/21 03/08/21 05:35 05:35 05:35 WBC 3.08 L RBC 3.01 L Hgb 10.3 L Hct 30.3 L MCV 100.7 H MCH 34.2 H MCHC 34.0 RDW Std Deviation 54.9 H RDW Coeff of Giuseppe 14.9 H Plt Count 150 MPV 11.3 H Immature Gran % (Auto) 0.0 Neut % (Auto) 66.9 Lymph % (Auto) 20.1 [place] % (Auto) 11.7 Eos % (Auto) 0.0 Baso % (Auto) 1.3 Neut # (Auto) 2.06 Lymph # (Auto) 0.62 L [place] # (Auto) 0.36 Eos # (Auto) 0.00 Baso # (Auto) 0.04 Immature Gran # (Auto) 0.00 Ovalocytes 1+ PT 29.4 H INR 3.2 H Sodium 142 Potassium 4.5 Chloride 111 H Carbon Dioxide 26 Anion Gap 5.0 BUN 19 H Creatinine 0.88 Est Cr Clr Drug Dosing 58.1 Est GFR ( Amer) 71.9 Est GFR (Non-Af Amer) 62.1 BUN/Creatinine Ratio 22.1 H Glucose 145 H POC Glucose Calcium 7.8 L AST 40 H ALT 30 03/08/21 03/08/21 03/08/21 07:30 11:27 16:23 WBC RBC Hgb Hct MCV MCH MCHC RDW Std Deviation RDW Coeff of Giuseppe Plt Count MPV Immature Gran % (Auto) Neut % (Auto) Lymph % (Auto) [place] % (Auto) Eos % (Auto) Baso % (Auto) Neut # (Auto) Lymph # (Auto) [place] # (Auto) Eos # (Auto) Baso # (Auto) Immature Gran # (Auto) Ovalocytes PT INR Sodium Potassium Chloride Carbon Dioxide Anion Gap BUN Creatinine Est Cr Clr Drug Dosing Est GFR ( Amer) Est GFR (Non-Af Amer) BUN/Creatinine Ratio Glucose POC Glucose 136 H 166 H 92 Calcium AST ALT 03/08/21 20:09 WBC RBC Hgb Hct MCV MCH MCHC RDW Std Deviation RDW Coeff of Giuseppe Plt Count MPV Immature Gran % (Auto) Neut % (Auto) Lymph % (Auto) [place] % (Auto) Eos % (Auto) Baso % (Auto) Neut # (Auto) Lymph # (Auto) [place] # (Auto) Eos # (Auto) Baso # (Auto) Immature Gran # (Auto) Ovalocytes PT INR Sodium Potassium Chloride Carbon Dioxide Anion Gap BUN Creatinine Est Cr Clr Drug Dosing Est GFR ( Amer) Est GFR (Non-Af Amer) BUN/Creatinine Ratio Glucose POC Glucose 119 H Calcium AST ALT Diagnostic Findings blood and urine cx's negative PG Care Time/CCT Total # of Minutes Spent Total Time Spent with Patient: Total time spent is greater than 50% in coordination of care (as documented) at patient's floor/unit and/or counseling patient: Coding Level of Care Code 52241 Subseq Hosp Care Lvl 3 Diagnoses Sepsis A41.9 Sepsis acute organ dysfunction status: unspecified Sepsis type: sepsis due to unspecified organism Acute on chronic respiratory failure with hypoxia J96.21 Pneumonia due to 2019 novel coronavirus U07.1; J12.82 Pancytopenia D61.818 Aortic stenosis I35.0 Cardiac valve disease etiology: etiology unspecified 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, type 2 E11.9 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 ad terminal makeup operator insulin use: without long-term use 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 complication status: without complication Hyperlipidemia E78.5 Hyperlipidemia type: unspecified Depression F32.9 Depression Type: major depressive disorder Major depression recurrence: unspecified whether recurrent Active/Remission status: remission status unspecified Pulmonary embolism I26.99 Myeloma C90.00 Multiple myeloma remission status: not in remission Morbid obesity with BMI of 50.0-59.9, adult E66.01; Z68.43 Pacemaker Z95.0 DVT prophylaxis Z29.9 (1) Sepsis Sepsis acute organ dysfunction status: unspecified Sepsis type: sepsis due to unspecified organism Qualified Code(s): A41.9 - Sepsis, unspecified organism (2) Aortic stenosis Cardiac valve disease etiology: etiology unspecified Qualified Code(s): I35.0 - Nonrheumatic aortic (valve) stenosis (3) 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, type 2 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 ad terminal makeup operator insulin use: without ad terminal makeup operator use 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 complication status: without complication Qualified Code(s): E11.9 - Type 2 diabetes mellitus without complications (4) Hyperlipidemia Hyperlipidemia type: unspecified Qualified Code(s): E78.5 - Hyperlipidemia, unspecified (5) Depression Depression Type: major depressive disorder Major depression recurrence: unspecified whether recurrent Active/Remission status: remission status unspecified Qualified Code(s): F32.9 - Major depressive disorder, single episode, unspecified (6) Myeloma Multiple myeloma remission status: not in remission Qualified Code(s): C90.00 - Multiple myeloma not having achieved remission
[2021-03-09] MEDS: dexAMETHasone 6 MG in SYRINGE 0 ML IV SCH (01:43)
[2021-03-09 08:28] LABS: Hematocrit (blood only) 29.7 % (37-47); Hemoglobin 10.2 g/dL (12.0-16.0); Mean Corpuscular Hemoglobin 34.6 pg (25-34); Mean Corpuscular Hgb Conc 34.3 g/dL (32-36); Mean Corpuscular Volume 100.7 fL (80-100); Platelet Count 170 K/uL (130-400); RDW Standard Deviation 55.4 fL (36.4-46.3); Red Blood Count 2.95 M/uL (4.2-5.4); White Blood Count 4.03 K/uL (4.8-10.8)
[2021-03-09 08:40] LABS: INR 2.9 (0.9-1.1); Prothrombin Time 26.8 Seconds (9.0-12.0)
[2021-03-09] MEDS: INSULIN ASPART 100 UNITS/ML 3 ML PEN SC SCH ×4 (08:48→20:24)
[2021-03-09] MEDS: ASCORBIC ACID 500 MG TAB PO SCH (08:49)
[2021-03-09] MEDS: CHOLECALCIFEROL 1,000 UNITS 25 MCG TAB PO SCH (08:49)
[2021-03-09] MEDS: INSULIN GLARGINE SOLOSTAR 100 UNITS/ML 3 ML PEN SC SCH ×2 (08:49→20:26)
[2021-03-09] MEDS: guaiFENesin 600 MG TABCR PO SCH ×2 (08:49→20:23)
[2021-03-09] MEDS: ACYCLOVIR 400 MG TAB PO SCH ×2 (08:50→20:22)
[2021-03-09] MEDS: FUROSEMIDE 20 MG TAB PO SCH (08:50)
[2021-03-09] MEDS: ATORVASTATIN 10 MG TAB PO SCH (08:50)
[2021-03-09] MEDS: VENLAFAXINE HCL XR 75 MG CAPXR PO SCH (08:50)
[2021-03-09 09:17] LABS: BUN Creatinine Ratio 21.8 (10-20); Calcium 7.9 mg/dl (8.5-10.1); Creatinine Clr Calc Pharmacy 61.5 ml/min; Est GFR (African American) 77.2; Est GFR (Non-African American) 66.6; Potassium 4.2 mmol/L (3.5-5.1)
[2021-03-09 09:21] LABS: Folate (Folic Acid) > 20.00 ng/ml (>5.38); Vitamin B12 1467 pg/ml (193-986)
[2021-03-09] MEDS: AZITHROMYCIN 250 MG in DEXTROSE 5% 250 ML IV SCH (10:07)
[2021-03-09] MEDS: cefTRIAXone SODIUM 2,000 MG in DEXTROSE 5% 50 ML IV SCH (10:44)
--- NOTE | 2021-03-09 11:14 | Hospitalist Progress Note ---
Date of Service March 09, 2021 Assessment & Plan (1) Sepsis: 2nd to COVID-19 pneumonia. Cannot exclude bacterial superinfection/pneumonia. s/p multiple fluid boluses in ER at admission, no further fluid needed sepsis resolved at this point. BPs stable. Blood and urine cx's negative. Continue rocephin/zithromax to cover for possibility of bacterial superinfection/pneumonia would complete 7 days of treatment, can convert to PO on discharge (2) Acute on chronic respiratory failure with hypoxia: acute component 2nd COVID-19 pneumonia. Chronic - 2 L NC but she says she only wears at night down to 3L today, no distress, continue to wean as tolerated continue dexamethasone and antibiotics she is compliant with flutter valve and IS (3) Pneumonia due to 2019 novel coronavirus: Dexamethasone 6mg IV daily x 10 days; day #4 today. Remdesivir per 5 day/dose protocol -- dose #4 tonight. Daily ast/alt. AST minimally elevated today - trend. Supplemental O2, O2 sats goal 90-92%. Out of window for convalescent plasma. Patient unable to prone, but is getting OOB frequently, sitting in chair, etc. Empiric rocephin/zithromax to cover for secondary bacterial infection. day #4 of each. Flutter valve/incentive/pulm toilet. Cont mucinex 1200mg BID. Resume lasix 20mg po daily today (4) Pancytopenia: likely 2nd to MM but cannot exclude COVID-19 contributing to bone marrow suppression. CBC stable 03/08, repeat tomorrow to be complete check b12/folate in am. (5) Aortic stenosis: moderate to severe noted on echo on 08/13/20 with preserved EF of 55- 60%. 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 On Coumadin anticoagulation. 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 She had a PET scan performed on 07/23/19 which showed innumerable lytic lesions involving right parietal bone, left parietal bone, ribs. CT head with calvarial lesions most consistent with her underlying disease of MM. She follows with Oncology - Dr Jorge Allen, [place] h/o. Most recent office visit in chart was 10/2020 - was on qmonthly Xgeva (denosumab) and daily Revlimid (lenalidomide). Med rec confirms that regimen. Dr Nolan spoke with Dr Allen 03/07 - he agrees we should hold MM agents while ill (was due to receive Xgeva right about now). Continue Acyclovir. 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 (13) DVT prophylaxis: coumadin PT, OT Admission and Anticipated Discharge Date Admission Date: March 06, 2021 Subjective patient sitting up in chair, says she feels a lot better compared to admission she is eating better, breathing easier, she is on 3L, she says normally she wears 2L at night only she has a mild cough, she gets short of breath on exertion no fever/chills, but she does feel weaker than normal she lives at home by herself but family is always checking on her reviewed the chart, reviewed labs, INR is 2.8 today Review of Systems Review of Systems: All systems reviewed & are unremarkable except as noted in Subjective Constitutional: + fatigue and + weakness; no fever Respiratory: + cough and + dyspnea on exertion; no dyspnea Cardiovascular: no chest pain, no palpitations and no edema Gastrointestinal: no abdominal pain, no nausea, no vomiting, no constipation and no diarrhea/loose stools Physical Exam Constitutional: well developed, well nourished and + obese; no acute distress Neck: trachea midline, no thyromegaly Respiratory: normal respiratory effort, lungs clear to auscultation Cardiovascular: RRR, no murmur, no edema Gastrointestinal (Abdomen): normal bowel sounds, soft, nontender, no hepatosplenomegaly Musculoskeletal: no cyanosis or clubbing, extremities motor strength 5/5 Skin: no rashes, warm and dry Neurologic: patellar DTR's 2+ bilat, sensation intact and PERRL, EOMI, accommodation nl, no face palsy, no dysarthria Psychiatric: A+Ox3, euthymic affect Lymphatic: no cervical or axillary lymphadenopathy Results & Data Results & Data ([facility]) Vital Signs (Past 12 Hours) Vital Signs Temp Pulse Pulse Resp BP Pulse Ox Pulse Ox 03/09/21 09:15 98 03/09/21 08:00 36.9 C 60 16 148/78 H 94 03/09/21 03:35 36.5 C 70 16 145/79 H 94 03/09/21 02:35 88 18 95 03/09/21 01:00 03/09/21 00:00 82 03/08/21 23:17 36.7 C 72 18 165/88 H 94 Pulse Ox Pulse Ox Pulse Ox 03/09/21 09:15 96 96 03/09/21 08:00 03/09/21 03:35 03/09/21 02:35 03/09/21 01:00 94 03/09/21 00:00 03/08/21 23:17 Laboratory Results Laboratory Results - last 24 hr 03/08/21 03/08/21 03/08/21 11:27 16:23 20:09 WBC RBC Hgb Hct MCV MCH MCHC RDW Std Deviation RDW Coeff of Giuseppe Plt Count MPV PT INR Sodium Potassium Chloride Carbon Dioxide Anion Gap BUN Creatinine Est Cr Clr Drug Dosing Est GFR ( Amer) Est GFR (Non-Af Amer) BUN/Creatinine Ratio Glucose POC Glucose 166 H 92 119 H Calcium AST ALT Vitamin B12 Folate 03/09/21 03/09/21 03/09/21 07:22 07:32 07:32 WBC 4.03 L RBC 2.95 L Hgb 10.2 L Hct 29.7 L MCV 100.7 H MCH 34.6 H MCHC 34.3 RDW Std Deviation 55.4 H RDW Coeff of Giuseppe 15.0 H Plt Count 170 MPV 11.0 H PT INR Sodium 141 Potassium 4.2 Chloride 111 H Carbon Dioxide 23 Anion Gap 7.0 BUN 18 Creatinine 0.83 Est Cr Clr Drug Dosing 61.5 Est GFR ( Amer) 77.2 Est GFR (Non-Af Amer) 66.6 BUN/Creatinine Ratio 21.8 H Glucose 129 H POC Glucose 142 H Calcium 7.9 L AST 26 ALT 29 Vitamin B12 Folate 03/09/21 03/09/21 07:32 07:32 WBC RBC Hgb Hct MCV MCH MCHC RDW Std Deviation RDW Coeff of Giuseppe Plt Count MPV PT 26.8 H INR 2.9 H Sodium Potassium Chloride Carbon Dioxide Anion Gap BUN Creatinine Est Cr Clr Drug Dosing Est GFR ( Amer) Est GFR (Non-Af Amer) BUN/Creatinine Ratio Glucose POC Glucose Calcium AST ALT Vitamin B12 1467 H Folate > 20.00 Medications Administered Current Inpatient Medications Acetaminophen (Acetaminophen 325 Mg Tab) 650 mg PO Q4H PRN PRN Reason: pain or fever Stop: 04/06/21 01:14 Acyclovir (Acyclovir 400 Mg Tab) 400 mg PO BID [facility] Stop: 04/06/21 08:59 Last Admin: 03/09/21 08:50 Dose: 400 mg Documented by: Ascorbic Acid (Ascorbic Acid 500 Mg Tab) 500 mg PO QAM [facility] Stop: 04/06/21 08:59 Last Admin: 03/09/21 08:49 Dose: 500 mg Documented by: Atorvastatin Calcium (Atorvastatin 10 Mg Tab) 10 mg PO DAILY [facility] Stop: 04/06/21 08:59 Last Admin: 03/09/21 08:50 Dose: 10 mg Documented by: Dextrose (Dextrose 50% 50 Ml Syringe) 25 - 50 ml IV UD PRN; Protocol PRN Reason: Hypoglycemia Protocol Stop: 04/06/21 01:14 Furosemide (Furosemide 20 Mg Tab) 20 mg PO QAM [facility] Stop: 04/08/21 08:59 Last Admin: 03/09/21 08:50 Dose: 20 mg Documented by: Glucagon (Glucagon For Inj 1 Mg Vial) 1 mg SQ UD PRN; Protocol PRN Reason: Hypoglycemia Protocol Stop: 04/06/21 01:14 Glucose (Glucose 10 Tabs/Tube) 4 - 8 tabs PO UD PRN; Protocol PRN Reason: Hypoglycemia Protocol Stop: 04/06/21 01:14 Glucose (Glucose 40% Gel 15 Gm Tube) 15 - 30 gm PO UD PRN; Protocol PRN Reason: Hypoglycemia Protocol Stop: 04/06/21 01:14 Guaifenesin (Guaifenesin Sugar Free 100 Mg/5 Ml Udc) 100 mg PO Q6H PRN PRN Reason: Cough Stop: 04/06/21 01:14 Guaifenesin (Guaifenesin 600 Mg Tabcr) 1,200 mg PO Q12 [facility] Stop: 04/06/21 11:29 Last Admin: 03/09/21 08:49 Dose: 1,200 mg Documented by: Dexamethasone 6 mg/ Syringe 1.5 mls @ 1 mls/min IV Q24H [facility] Stop: 04/06/21 01:14 Last Admin: 03/09/21 01:43 Dose: 1 mls/min Documented by: Ceftriaxone Sodium 2,000 mg/ (Dextrose) 70 mls @ 100 mls/hr IV DAILY [facility]; Protocol Stop: 03/14/21 08:59 Last Infusion: 03/09/21 11:07 Dose: Infused Documented by: Azithromycin 250 mg/ Dextrose 252.5 mls @ 125 mls/hr IV DAILY [facility] Stop: 03/15/21 08:59 Last Infusion: 03/09/21 11:07 Dose: Infused Documented by: Remdesivir 100 mg/ Sodium (Chloride) 250 mls @ 250 mls/hr IV Q24H [facility]; Protocol Stop: 03/10/21 20:59 Last Infusion: 03/08/21 21:36 Dose: Infused Documented by: Insulin Aspart (Insulin Aspart 100 Units/Ml 3 Ml Pen) 0 units SC ACHS [facility] Stop: 04/06/21 07:29 Last Admin: 03/09/21 08:48 Dose: 2 units Documented by: Insulin Glargine (Insulin Glargine Solostar 100 Units/Ml 3 Ml Pen) 5 units SC BID [facility] Stop: 04/06/21 08:59 Last Admin: 03/09/21 08:49 Dose: 5 units Documented by: Miscellaneous (Carbohydrates For Hypoglycemia ) 15 - 30 gm PO UD PRN PRN Reason: Hypoglycemia Protocol Stop: 04/06/21 01:14 Miscellaneous (Lenalidomide [Revlimid]: Order Awaiting Action) 1 ea N/A QS [facility] Stop: 04/06/21 07:59 Last Admin: 03/09/21 11:08 Dose: Not Given Documented by: Ondansetron HCl (Ondansetron Inj 2 Mg/Ml 2 Ml Vial) 4 mg IV Q6H PRN PRN Reason: Nausea Stop: 04/06/21 01:14 Oxycodone HCl (Oxycodone Hcl Ir 5 Mg Tab (Immediate Release)) 5 mg PO Q6H PRN PRN Reason: pain Stop: 03/21/21 01:14 Sodium Chloride (Sodium Chloride 0.9% 10ml Flush) 30 ml IV Q24H [facility] Stop: 03/11/21 03:31 Last Admin: 03/08/21 20:16 Dose: 30 ml Documented by: Venlafaxine HCl (Venlafaxine Hcl Xr 75 Mg Capxr) 75 mg PO QAM [facility] Stop: 04/06/21 08:59 Last Admin: 03/09/21 08:50 Dose: 75 mg Documented by: Venlafaxine HCl (Venlafaxine Hcl Xr 150 Mg Capxr) 150 mg PO QPM [facility] Stop: 04/06/21 20:59 Last Admin: 03/08/21 20:18 Dose: 150 mg Documented by: Vitamin D (Cholecalciferol 1,000 Units 25 Mcg Tab) 2,000 units PO QAM [facility] Stop: 04/06/21 08:59 Last Admin: 03/09/21 08:49 Dose: 2,000 units Documented by: Warfarin Sodium (Warfarin Sod 2 Mg Tab) 2 mg PO SuWe@1600 [facility] Stop: 04/07/21 15:59 Last Admin: 03/08/21 17:44 Dose: 2 mg Documented by: Warfarin Sodium (Warfarin Sod 4 Mg Tab) 8 mg PO DAILY@1600 [facility] Stop: 04/06/21 15:59 PG Care Time/CCT Total # of Minutes Spent Total Time Spent with Patient: Total time spent is greater than 50% in coordination of care (as documented) at patient's floor/unit and/or counseling patient: Coding Level of Care Code 50273 Subs Hosp Care Lvl 3 Diagnoses Sepsis A41.9 Sepsis acute organ dysfunction status: unspecified Sepsis type: sepsis due to unspecified organism Acute on chronic respiratory failure with hypoxia J96.21 Pneumonia due to 2019 novel coronavirus U07.1; J12.82 Pancytopenia D61.818 Aortic stenosis I35.0 Cardiac valve disease etiology: etiology unspecified 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, type 2 E11.9 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 buttermaker helper insulin use: without custodial use 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 complication status: without complication Hyperlipidemia E78.5 Hyperlipidemia type: unspecified Depression F32.9 Depression Type: major depressive disorder Major depression recurrence: unspecified whether recurrent Active/Remission status: remission status unspecified Pulmonary embolism I26.99 Myeloma C90.00 Multiple myeloma remission status: not in remission Morbid obesity with BMI of 50.0-59.9, adult E66.01; Z68.43 Pacemaker Z95.0 DVT prophylaxis Z29.9 (1) Sepsis Sepsis acute organ dysfunction status: unspecified Sepsis type: sepsis due to unspecified organism Qualified Code(s): A41.9 - Sepsis, unspecified organism (2) Aortic stenosis Cardiac valve disease etiology: etiology unspecified Qualified Code(s): I35.0 - Nonrheumatic aortic (valve) stenosis (3) 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, type 2 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 custodial insulin use: without buttermaker helper use 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 complication status: without complication Qualified Code(s): E11.9 - Type 2 diabetes mellitus without complications (4) Hyperlipidemia Hyperlipidemia type: unspecified Qualified Code(s): E78.5 - Hyperlipidemia, unspecified (5) Depression Depression Type: major depressive disorder Major depression recurrence: unspecified whether recurrent Active/Remission status: remission status unspecified Qualified Code(s): F32.9 - Major depressive disorder, single episode, unspecified (6) Myeloma Multiple myeloma remission status: not in remission Qualified Code(s): C90.00 - Multiple myeloma not having achieved remission
[2021-03-09] MEDS: REMDESIVIR 100 MG in SODIUM CHLORIDE 0.9% 230 ML IV SCH (19:47)
[2021-03-09] MEDS: VENLAFAXINE HCL XR 150 MG CAPXR PO SCH (20:27)
[2021-03-09] MEDS: SODIUM CHLORIDE 0.9% 10ML FLUSH IV SCH (23:35)
[2021-03-10] MEDS: dexAMETHasone 6 MG in SYRINGE 0 ML IV SCH (01:16)
[2021-03-10 06:34] LABS: Hematocrit (blood only) 31.3 % (37-47); Hemoglobin 10.5 g/dL (12.0-16.0); Mean Corpuscular Hgb Conc 33.5 g/dL (32-36); Mean Corpuscular Volume 101.3 fL (80-100); Mean Platelet Volume 10.6 fL (7.4-10.4); Platelet Count 173 K/uL (130-400); RDW Coefficient of Variation 14.9 % (11.5-14.5); RDW Standard Deviation 55.6 fL (36.4-46.3); Red Blood Count 3.09 M/uL (4.2-5.4)
[2021-03-10 06:38] LABS: INR 2.6 (0.9-1.1); Prothrombin Time 24.5 Seconds (9.0-12.0)
[2021-03-10 06:58] LABS: BUN Creatinine Ratio 22.5 (10-20); Calcium 7.9 mg/dl (8.5-10.1); Creatinine Clr Calc Pharmacy 58.6 ml/min; Est GFR (African American) 72.9; Est GFR (Non-African American) 62.9; Potassium 4.1 mmol/L (3.5-5.1)
[2021-03-10] MEDS: cefTRIAXone SODIUM 2,000 MG in DEXTROSE 5% 50 ML IV SCH (08:14)
[2021-03-10] MEDS: ACYCLOVIR 400 MG TAB PO SCH ×2 (08:24→20:08)
[2021-03-10] MEDS: CHOLECALCIFEROL 1,000 UNITS 25 MCG TAB PO SCH (08:25)
[2021-03-10] MEDS: FUROSEMIDE 20 MG TAB PO SCH (08:26)
[2021-03-10] MEDS: guaiFENesin 600 MG TABCR PO SCH ×2 (08:26→20:07)
[2021-03-10] MEDS: ASCORBIC ACID 500 MG TAB PO SCH (08:26)
[2021-03-10] MEDS: VENLAFAXINE HCL XR 75 MG CAPXR PO SCH (08:27)
[2021-03-10] MEDS: ATORVASTATIN 10 MG TAB PO SCH (08:27)
[2021-03-10] MEDS: INSULIN ASPART 100 UNITS/ML 3 ML PEN SC SCH ×4 (08:29→21:14)
[2021-03-10] MEDS: INSULIN GLARGINE SOLOSTAR 100 UNITS/ML 3 ML PEN SC SCH ×2 (08:29→21:17)
[2021-03-10] MEDS: AZITHROMYCIN 250 MG in DEXTROSE 5% 250 ML IV SCH (09:17)
--- NOTE | 2021-03-10 11:22 | Hospitalist Progress Note ---
Date of Service March 10, 2021 Assessment & Plan (1) Sepsis: 2nd to COVID-19 pneumonia. Cannot exclude bacterial superinfection/pneumonia. s/p multiple fluid boluses in ER at admission, no further fluid needed sepsis resolved at this point for several days BPs stable. Blood and urine cx's negative. Continue rocephin/zithromax to cover for possibility of bacterial superinfection/pneumonia would complete 7 days of treatment, can convert to PO on discharge (2) Acute on chronic respiratory failure with hypoxia: acute component 2nd COVID-19 pneumonia. Chronic - 2 L NC but she says she only wears at night down to room air today, no distress, saturations 93% continue dexamethasone and antibiotics she is compliant with flutter valve and IS (3) Pneumonia due to 2019 novel coronavirus: Dexamethasone 6mg IV daily x 10 days; day #5 today. Remdesivir per 5 day/dose protocol -- dose #5 tonight. Supplemental O2, O2 sats goal 90-92%. Out of window for convalescent plasma. Patient unable to prone, but is getting OOB frequently, sitting in chair, etc. down to room air today! Empiric rocephin/zithromax to cover for secondary bacterial infection. day #5 of each. Flutter valve/incentive/pulm toilet. Cont mucinex 1200mg BID. Resume lasix 20mg po daily plan for two step tomorrow, try to go home tomorrow with home health and home therapy (4) Pancytopenia: likely 2nd to MM but cannot exclude COVID-19 contributing to bone marrow suppression. CBC stable today (5) Aortic stenosis: moderate to severe noted on echo on 08/13/20 with preserved EF of 55- 60%. 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 On Coumadin anticoagulation. 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 She had a PET scan performed on 07/23/19 which showed innumerable lytic lesions involving right parietal bone, left parietal bone, ribs. CT head with calvarial lesions most consistent with her underlying disease of MM. She follows with Oncology - Dr Jorge Allen, [place] h/o. Most recent office visit in chart was 10/2020 - was on qmonthly Xgeva (denosumab) and daily Revlimid (lenalidomide). Med rec confirms that regimen. Dr Nolan spoke with Dr Allen 03/07 - he agrees we should hold MM agents while ill (was due to receive Xgeva right about now). Continue Acyclovir. 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 (13) DVT prophylaxis: coumadin PT, OT Admission and Anticipated Discharge Date Admission Date: March 06, 2021 Subjective patient feeling better, breathing easier she was 96% on 3L at rest in a chair, removed her oxygen, she was 93% on room air while I was in the room discussed that she is getting closer to discharge, want her to work with therapy again, get home health/therapy arranged discussed getting two step tomorrow morning, she agreed eating very well this morning, staying well hydrated vitals stable, BMP and CBC stable Review of Systems Review of Systems: All systems reviewed & are unremarkable except as noted in Subjective Constitutional: + weakness Respiratory: + dyspnea on exertion; no cough and no dyspnea Cardiovascular: no chest pain and no edema Gastrointestinal: no abdominal pain, no nausea, no vomiting, no constipation and no diarrhea/loose stools Physical Exam Constitutional: well developed, well nourished and + obese; no acute distress Neck: trachea midline, no thyromegaly Respiratory: normal respiratory effort, lungs clear to auscultation Cardiovascular: RRR, no murmur, no edema Gastrointestinal (Abdomen): normal bowel sounds, soft, nontender, no hepatosplenomegaly Musculoskeletal: no cyanosis or clubbing, extremities motor strength 5/5 Skin: no rashes, warm and dry Neurologic: patellar DTR's 2+ bilat, sensation intact and PERRL, EOMI, accommodation nl, no face palsy, no dysarthria Psychiatric: A+Ox3, euthymic affect Lymphatic: no cervical or axillary lymphadenopathy Results & Data Results & Data ([facility]) Vital Signs (Past 12 Hours) Vital Signs Temp Pulse Pulse Resp BP Pulse Ox 03/10/21 07:51 36.7 C 72 19 120/68 96 03/10/21 07:28 87 03/10/21 06:12 36.4 C L 88 22 154/88 H 90 03/10/21 02:41 74 16 94 03/10/21 00:04 70 03/09/21 23:52 74 20 148/81 H 94 Laboratory Results Laboratory Results - last 24 hr 03/09/21 03/09/21 03/09/21 11:25 16:26 20:08 WBC RBC Hgb Hct MCV MCH MCHC RDW Std Deviation RDW Coeff of Giuseppe Plt Count MPV PT INR Sodium Potassium Chloride Carbon Dioxide Anion Gap BUN Creatinine Est Cr Clr Drug Dosing Est GFR ( Amer) Est GFR (Non-Af Amer) BUN/Creatinine Ratio Glucose POC Glucose 126 H 102 H 129 H Calcium 03/10/21 03/10/21 03/10/21 06:02 06:02 06:02 WBC 4.80 RBC 3.09 L Hgb 10.5 L Hct 31.3 L MCV 101.3 H MCH 34.0 MCHC 33.5 RDW Std Deviation 55.6 H RDW Coeff of Giuseppe 14.9 H Plt Count 173 MPV 10.6 H PT 24.5 H INR 2.6 H Sodium 142 Potassium 4.1 Chloride 111 H Carbon Dioxide 27 Anion Gap 4.0 BUN 20 H Creatinine 0.87 Est Cr Clr Drug Dosing 58.6 Est GFR ( Amer) 72.9 Est GFR (Non-Af Amer) 62.9 BUN/Creatinine Ratio 22.5 H Glucose 114 H POC Glucose Calcium 7.9 L 03/10/21 07:51 WBC RBC Hgb Hct MCV MCH MCHC RDW Std Deviation RDW Coeff of Giuseppe Plt Count MPV PT INR Sodium Potassium Chloride Carbon Dioxide Anion Gap BUN Creatinine Est Cr Clr Drug Dosing Est GFR ( Amer) Est GFR (Non-Af Amer) BUN/Creatinine Ratio Glucose POC Glucose 109 H Calcium Medications Administered Current Inpatient Medications Acetaminophen (Acetaminophen 325 Mg Tab) 650 mg PO Q4H PRN PRN Reason: pain or fever Stop: 04/06/21 01:14 Acyclovir (Acyclovir 400 Mg Tab) 400 mg PO BID DEVON Stop: 04/06/21 08:59 Last Admin: 03/10/21 08:24 Dose: 400 mg Documented by: Ascorbic Acid (Ascorbic Acid 500 Mg Tab) 500 mg PO QAM DEVON Stop: 04/06/21 08:59 Last Admin: 03/10/21 08:26 Dose: 500 mg Documented by: Atorvastatin Calcium (Atorvastatin 10 Mg Tab) 10 mg PO DAILY DEVON Stop: 04/06/21 08:59 Last Admin: 03/10/21 08:27 Dose: 10 mg Documented by: Dextrose (Dextrose 50% 50 Ml Syringe) 25 - 50 ml IV UD PRN; Protocol PRN Reason: Hypoglycemia Protocol Stop: 04/06/21 01:14 Furosemide (Furosemide 20 Mg Tab) 20 mg PO QAM DEVON Stop: 04/08/21 08:59 Last Admin: 03/10/21 08:26 Dose: 20 mg Documented by: Glucagon (Glucagon For Inj 1 Mg Vial) 1 mg SQ UD PRN; Protocol PRN Reason: Hypoglycemia Protocol Stop: 04/06/21 01:14 Glucose (Glucose 10 Tabs/Tube) 4 - 8 tabs PO UD PRN; Protocol PRN Reason: Hypoglycemia Protocol Stop: 04/06/21 01:14 Glucose (Glucose 40% Gel 15 Gm Tube) 15 - 30 gm PO UD PRN; Protocol PRN Reason: Hypoglycemia Protocol Stop: 04/06/21 01:14 Guaifenesin (Guaifenesin Sugar Free 100 Mg/5 Ml Udc) 100 mg PO Q6H PRN PRN Reason: Cough Stop: 04/06/21 01:14 Guaifenesin (Guaifenesin 600 Mg Tabcr) 1,200 mg PO Q12 DEVON Stop: 04/06/21 11:29 Last Admin: 03/10/21 08:26 Dose: 1,200 mg Documented by: Dexamethasone 6 mg/ Syringe 1.5 mls @ 1 mls/min IV Q24H DEVON Stop: 04/06/21 01:14 Last Admin: 03/10/21 01:16 Dose: 1 mls/min Documented by: Ceftriaxone Sodium 2,000 mg/ (Dextrose) 70 mls @ 100 mls/hr IV DAILY DEVON; Protocol Stop: 03/14/21 08:59 Last Infusion: 03/10/21 09:17 Dose: Infused Documented by: Azithromycin 250 mg/ Dextrose 252.5 mls @ 125 mls/hr IV DAILY [facility] Stop: 03/15/21 08:59 Last Admin: 03/10/21 09:17 Dose: 250 mls/hr Documented by: Remdesivir 100 mg/ Sodium (Chloride) 250 mls @ 250 mls/hr IV Q24H [facility]; Protocol Stop: 03/10/21 20:59 Last Infusion: 03/09/21 23:36 Dose: Infused Documented by: Insulin Aspart (Insulin Aspart 100 Units/Ml 3 Ml Pen) 0 units SC ACHS [facility] Stop: 04/06/21 07:29 Last Admin: 03/10/21 08:29 Dose: 1 units Documented by: Insulin Glargine (Insulin Glargine Solostar 100 Units/Ml 3 Ml Pen) 5 units SC BID [facility] Stop: 04/06/21 08:59 Last Admin: 03/10/21 08:29 Dose: 5 units Documented by: Miscellaneous (Carbohydrates For Hypoglycemia ) 15 - 30 gm PO UD PRN PRN Reason: Hypoglycemia Protocol Stop: 04/06/21 01:14 Miscellaneous (Lenalidomide [Revlimid]: Order Awaiting Action) 1 ea N/A QS [facility] Stop: 04/06/21 07:59 Last Admin: 03/10/21 08:24 Dose: Not Given Documented by: Ondansetron HCl (Ondansetron Inj 2 Mg/Ml 2 Ml Vial) 4 mg IV Q6H PRN PRN Reason: Nausea Stop: 04/06/21 01:14 Oxycodone HCl (Oxycodone Hcl Ir 5 Mg Tab (Immediate Release)) 5 mg PO Q6H PRN PRN Reason: pain Stop: 03/21/21 01:14 Sodium Chloride (Sodium Chloride 0.9% 10ml Flush) 30 ml IV Q24H [facility] Stop: 03/11/21 03:31 Last Admin: 03/09/21 23:35 Dose: 30 ml Documented by: Venlafaxine HCl (Venlafaxine Hcl Xr 75 Mg Capxr) 75 mg PO QAM [facility] Stop: 04/06/21 08:59 Last Admin: 03/10/21 08:27 Dose: 75 mg Documented by: Venlafaxine HCl (Venlafaxine Hcl Xr 150 Mg Capxr) 150 mg PO QPM [facility] Stop: 04/06/21 20:59 Last Admin: 03/09/21 20:27 Dose: 150 mg Documented by: Vitamin D (Cholecalciferol 1,000 Units 25 Mcg Tab) 2,000 units PO QAM [facility] Stop: 04/06/21 08:59 Last Admin: 03/10/21 08:25 Dose: 2,000 units Documented by: Warfarin Sodium (Warfarin Sod 2 Mg Tab) 2 mg PO SuWe@1600 [facility] Stop: 04/07/21 15:59 Last Admin: 03/08/21 17:44 Dose: 2 mg Documented by: Warfarin Sodium (Warfarin Sod 4 Mg Tab) 8 mg PO DAILY@1600 [facility] Stop: 04/06/21 15:59 PG Care Time/CCT Total # of Minutes Spent Total Time Spent with Patient: Total time spent is greater than 50% in coordination of care (as documented) at patient's floor/unit and/or counseling patient: Coding Level of Care Code 39700 Subseq Hosp Care Lvl 3 Diagnoses Sepsis A41.9 Sepsis acute organ dysfunction status: unspecified Sepsis type: sepsis due to unspecified organism Acute on chronic respiratory failure with hypoxia J96.21 Pneumonia due to 2019 novel coronavirus U07.1; J12.82 Pancytopenia D61.818 Aortic stenosis I35.0 Cardiac valve disease etiology: etiology unspecified 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, type 2 E11.9 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 retirement insulin use: without retirement use 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 complication status: without complication Hyperlipidemia E78.5 Hyperlipidemia type: unspecified Depression F32.9 Depression Type: major depressive disorder Major depression recurrence: unspecified whether recurrent Active/Remission status: remission status unspecified Pulmonary embolism I26.99 Myeloma C90.00 Multiple myeloma remission status: not in remission Morbid obesity with BMI of 50.0-59.9, adult E66.01; Z68.43 Pacemaker Z95.0 DVT prophylaxis Z29.9 (1) Sepsis Sepsis acute organ dysfunction status: unspecified Sepsis type: sepsis due to unspecified organism Qualified Code(s): A41.9 - Sepsis, unspecified organism (2) Aortic stenosis Cardiac valve disease etiology: etiology unspecified Qualified Code(s): I35.0 - Nonrheumatic aortic (valve) stenosis (3) 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, type 2 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 retirement insulin use: without retirement use 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 complication status: without complication Qualified Code(s): E11.9 - Type 2 diabetes mellitus without complications (4) Hyperlipidemia Hyperlipidemia type: unspecified Qualified Code(s): E78.5 - Hyperlipidemia, unspecified (5) Depression Depression Type: major depressive disorder Major depression recurrence: unspecified whether recurrent Active/Remission status: remission status unspeci fied Qualified Code(s): F32.9 - Major depressive disorder, single episode, unspecified (6) Myeloma Multiple myeloma remission status: not in remission Qualified Code(s): C90.00 - Multiple myeloma not having achieved remission
[2021-03-10] MEDS: REMDESIVIR 100 MG in SODIUM CHLORIDE 0.9% 230 ML IV SCH (20:06)
[2021-03-10] MEDS: VENLAFAXINE HCL XR 150 MG CAPXR PO SCH (20:08)
[2021-03-10] MEDS: SODIUM CHLORIDE 0.9% 10ML FLUSH IV SCH (21:14)
[2021-03-11] MEDS: dexAMETHasone 6 MG in SYRINGE 0 ML IV SCH (02:10)
[2021-03-11] MEDS: cefTRIAXone SODIUM 2,000 MG in DEXTROSE 5% 50 ML IV SCH (08:14)
[2021-03-11] MEDS: AZITHROMYCIN 250 MG in DEXTROSE 5% 250 ML IV SCH (09:04)
[2021-03-11] MEDS: INSULIN GLARGINE SOLOSTAR 100 UNITS/ML 3 ML PEN SC SCH (09:07)
[2021-03-11] MEDS: INSULIN ASPART 100 UNITS/ML 3 ML PEN SC SCH ×2 (09:08→12:32)
[2021-03-11] MEDS: ACYCLOVIR 400 MG TAB PO SCH (09:10)
[2021-03-11] MEDS: ASCORBIC ACID 500 MG TAB PO SCH (09:10)
[2021-03-11] MEDS: ATORVASTATIN 10 MG TAB PO SCH (09:11)
[2021-03-11] MEDS: FUROSEMIDE 20 MG TAB PO SCH (09:11)
[2021-03-11] MEDS: CHOLECALCIFEROL 1,000 UNITS 25 MCG TAB PO SCH (09:11)
[2021-03-11] MEDS: VENLAFAXINE HCL XR 75 MG CAPXR PO SCH (09:11)
[2021-03-11] MEDS: guaiFENesin 600 MG TABCR PO SCH (09:11)
[2021-03-11 11:39] VITALS: BP 110/81; TEMP 97.9; O2SAT 91
--- NOTE | 2021-03-11 15:18 | Discharge Summary ---
Date of Service March 11, 2021 Admission HPI Per Admitting Provider Chantel Roy is an 80yo female with history of DM, HLP, prior PE on Coumadin therapy. Patient began feeling ill approximately 1.5 weeks ago with body aches, fatigue. She has had a slight cough as well and diarrhea as well as poor oral intake. Also with complaint of headache. Patient tested positive for Covid-19 on 03/03/21 in the outpatient setting. EMS was called this evening because patient had increasing fatigue and chills. Family reports elevated temperature of 99-100 as well as some confusion. EMT report slight respiratory distress, saturation of 92% on 2L. In the ER, patient afebrile, hypotensive on arrival with BP ranging 71-120 /39 - 80. Tachypneic as well with RR of 25. Patient on 2L of O2 at baseline which was increased in the ambulance. She reports feeling ill but otherwise denies c hest pain, palpitations, abdominal pain, nausea, vomiting. ER course: NSS x 2L Principal Diagnosis COVID 19 pneumonia, acute hypoxic respiratory failure Discharge Exam Constitutional well developed, well nourished and + obese; no acute distress Neck trachea midline, no thyromegaly Respiratory normal respiratory effort, lungs clear to auscultation Cardiovascular RRR, no murmur, no edema Gastrointestinal (Abdomen) normal bowel sounds, soft, nontender, no hepatosplenomegaly Musculoskeletal no cyanosis or clubbing, extremities motor strength 5/5 Skin no rashes, warm and dry Neurologic patellar DTR's 2+ bilat, sensation intact and PERRL, EOMI, accommodation nl, no face palsy, no dysarthria Psychiatric A+Ox3, euthymic affect Lymphatic no cervical or axillary lymphadenopathy Discharge Data Allergies Allergy/AdvReac Type Severity Reaction Status Date / Time adhesive tape AdvReac Mild Skin rash Verified 01/13/21 15:53 Consultations 03/06/21 22:04 ED Decision to Admit Stat Ordered Studies 03/06/21 20:57 CT head/brain wo con Stat Hospital Course (1) Sepsis: 2nd to COVID-19 pneumonia. possible bacterial superinfection/pneumonia. sepsis resolved at this point for several days BPs stable. Blood and urine cx's negative. Continue rocephin/zithromax, completed 5 days, no fever, breathing well, no cough, no further need for antibiotics (2) Acute on chronic respiratory failure with hypoxia: acute component 2nd COVID-19 pneumonia. Chronic - 2 L NC but she says she only wears at night down to room air for over 24 hours, no distress, saturations 93% 2 step today showed no need for oxygen on exertion she is compliant with flutter valve and IS (3) Pneumonia due to 2019 novel coronavirus: Dexamethasone 6mg IV daily x 10 days; day #6 today will discharge home on 4 more days of dexamethasone 6mg PO daily Remdesivir per 5 day/dose protocol -- dose #5 on 03/10 Supplemental O2, O2 sats goal 90-92%. Patient unable to prone, but is getting OOB frequently, sitting in chair, etc. down to room air today! Empiric rocephin/zithromax to cover for secondary bacterial infection. completed 5 days, no further abx needed Flutter valve/incentive/pulm toilet. Cont mucinex 1200mg BID. Resumed lasix 20mg po daily (4) Pancytopenia: likely 2nd to MM but cannot exclude COVID-19 contributing to bone marrow suppression. CBC stable for two days (5) Aortic stenosis: moderate to severe noted on echo on 08/13/20 with preserved EF of 55- 60%. 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 On Coumadin anticoagulation. 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 She had a PET scan performed on 07/23/19 which showed innumerable lytic lesions involving right parietal bone, left parietal bone, ribs. CT head with calvarial lesions most consistent with her underlying disease of MM. She follows with Oncology - [place] h/o. Most recent office visit in chart was 10/2020 - was on qmonthly Xgeva (denosumab) and daily Revlimid (lenalidomide). Med rec confirms that regimen. Dr Nolan spoke with Dr Allen 03/07 - he agrees we should hold MM agents while ill (was due to receive Xgeva right about now). can get Xgeva next time it is due Continue Acyclovir. 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 (13) DVT prophylaxis: coumadin PT, OT - strong enough to go home with home health I certify that this patient is under my care and that I, or a physicians freezer assistant working with me, had a face to-face encounter that meets the home health [id number] encounter requirements with this patient. The encounter with the patient was in whole, or in part, for the following medical condition, which is the primary reason for home health care (list medical condition): Covid I certify that, based on my findings, the following services are medically necessary home health services: My clinical findings support the need for the above services because: OT Assess ADL Status and Restore Function w ADLs PT Assessment for Endurance / Balance / Strength Skilled Nsg Assessment Vital Signs Further, I certify that my clinical findings support that this patient is homebound (i.e. absences from home require considerable and taxing effort and are for medical reasons or rastafarian services or infrequently or of short duration when for other reasons) because: Supportive Aid - Walker Certification for Home Health Services: Based on the above findings, I certify that this patient is confined to the home and needs intermittent care home care, physical therapy and/or speech therapy or continues to need occupational therapy. The patient is under my care, and I have initiated the establishment of the plan of care. This patient will be followed by a physician who will periodically review the plan of care. Total Time Total Time Spent Total Time Spent (In Minutes): 35 Total Time Includes: Examination of the Patient, Discharge Planning, Medication Reconciliation, Communication With Other Providers (coordinating plan with case liner) and Other (speaking with son) Discharge Plan Discharge Items Patient Disposition: Home - Home Health Services Reason For Visit: COVID-19 INFECTION, HYPOTENSION Discharge Diagnosis: COVID 19 pneumonia Acute hypoxic respiratory failure Condition on Discharge: Good Goals: complete course of steroids stay well nourished, well hydrated improve strength with therapy and daily exercises on your own Activity: Resume your previous activity Weightbearing: Full weightbearing Non-emergency contact: Primary Care Provider Call non-emergency contact if: you have any medication questions and your symptoms worsen Follow-up/Referrals: Kulwinder Byers MD [Primary Care Provider] - (one week) Diet: Carb Consistent or DM2 Addtl Attending Provider Instructions: Medications: - DEXAMETHASONE: 6mg daily for 4 more days COVID 19 pneumonia, acute hypoxic respiratory failure titrated down to room air for over 24 hours, breathing well, still use the 2L at night that you were using prior to admission ambulatory testing shows that you do not need oxygen on exertion complete 4 more days of dexamethasone you tested positive on 03/03/21, you need to be in isolation until Tuesday, on Tuesday03/14/21 you can be around others still wear a mask and have others wear a mask when around you until the following Tuesday stay well nourished, well hydrated participate in therapy at home, perform exercises at home to stay strong please resume diabetes medications follow a low carbohydrate diet, be very strict the next 4 days (no sweets, try to limit breads/pasta/rice etc) due to dexamethasone Pending Studies at Discharge: No Stand-Alone Forms: [facility], Smoking Cessation Medications and DC Order Prescriptions: New dexamethasone 4 mg tablet 6 mg PO DAILY 4 Days Qty: 6 RF: 0 Continued Xgeva 120 mg/1.7 mL (70 mg/mL) solution 120 mg subcut MONTHLY RF: 0 atorvastatin 10 mg tablet 10 mg PO DAILY Qty: 90 RF: 3 venlafaxine 150 mg capsule,extended release 24hr 150 mg PO QPM Qty: 90 RF: 3 (DME) OneTouch Ultra Blue Test Strip Strip See Dose Instructions .ROUTE .MEDSUPPLY Qty: 100 RF: 3 metformin 500 mg tablet extended release 24 hr 1,000 mg PO QPM Qty: 180 RF: 3 hydrocortisone acetate 1 % cream 1 applic topical DAILY PRN (Reason: skin irritation) Qty: 28.4 RF: 0 furosemide 20 mg tablet 20 mg PO QAM Qty: 90 RF: 3 warfarin 4 mg tablet 8 mg PO DAILY Qty: 60 RF: 5 fluocinolone 0.01 % solution 1 appln TOP BID Qty: 60 RF: 2 K-Phos Original 500 mg tablet,soluble 500 mg PO DAILY RF: 0 nystatin 100,000 unit/gram powder 1 applic topical DAILY PRN (Reason: Skin Irritation) RF: 0 loratadine 10 mg capsule 10 mg PO DAILY PRN (Reason: Allergy Symptoms) Qty: 30 RF: 5 ascorbic acid (vitamin C) 500 mg tablet 500 mg PO QAM RF: 0 cholecalciferol (vitamin D3) 2,000 unit tablet 2,000 unit PO QAM RF: 0 cyanocobalamin (vitamin B-12) 500 mcg tablet 500 mcg PO QAM RF: 0 amoxicillin 500 mg capsule 2,000 mg PO ONCE PRN (Reason: DENTAL APPOINTMENTS) Qty: 4 RF: 0 oxycodone 5 mg tablet 5 mg PO Q6H PRN (Reason: pain) Qty: 28 RF: 0 ketotifen fumarate 0.025 % (0.035 %) drops 1 drp OP BID PRN (Reason: Dry Eye(S)) RF: 0 acyclovir 400 mg tablet 400 mg PO BID RF: 0 Revlimid 10 mg capsule 10 mg PO DAILY RF: 0 multivitamin Tablet 1 tab PO DAILY RF: 0 venlafaxine 75 mg capsule,extended release 24hr 75 mg PO QAM RF: 0 warfarin 1 mg tablet 1 mg PO 2XWK RF: 0 Discharge Orders: Discharge Order (Routine); Ordered 03/11/21 Ordered By: Leland Florez Admission Data Admit Date/Time: 03/06/21 23:01 Attending Provider: Leland Florez Admit Provider: Amy Grewal Primary Care Provider: Kulwinder Byers Other Providers: Amy Grewal ; [facility] Other Interventions: Discharge Summary Assessment (RN) Last Done: 03/11/21 15:10 Coding Level of Care Code D/C Day Management >30 mins Diagnoses Sepsis A41.9 Sepsis acute organ dysfunction status: unspecified Sepsis type: sepsis due to unspecified organism Acute on chronic respiratory failure with hypoxia J96.21 Pneumonia due to 2019 novel coronavirus U07.1; J12.82 Pancytopenia D61.818 Aortic stenosis I35.0 Cardiac valve disease etiology: etiology unspecified 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, type 2 E11.9 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 joint terminal attack controller insulin use: without joint terminal attack controller use 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 complication status: without complication Hyperlipidemia E78.5 Hyperlipidemia type: unspecified Depression F32.9 Depression Type: major depressive disorder Major depression recurrence: unspecified whether recurrent Active/Remission status: remission status unspecified Pulmonary embolism I26.99 Myeloma C90.00 Multiple myeloma remission status: not in remission Morbid obesity with BMI of 50.0-59.9, adult E66.01; Z68.43 Pacemaker Z95.0 DVT prophylaxis Z29.9
[2021-03-11 16:20] VITALS: PULSE 91
== END 2021-03-11 16:21 | disposition home health service (06) | DRG 871 ==
LOC: ED 20:08 → 2S 23:01 → SUATTDRO 23:01 → 2S 23:37

== ENCOUNTER 2022-03-01 13:19 | Inpatient (IN) ==
--- NOTE | 2022-03-01 13:51 | Emergency Department Note ---
Impression & Plan Acute GI bleeding, Pancytopenia ED Provider Note NAME: SURI ADAIR AGE: 81 SEX: F : 1940 ARRIVES VIA: Ambulance INFORMANT: Patient, ED PROVIDER(S): Vinod Carmichael DO CHIEF COMPLAINT: Rectal bleeding HPI: The patient is an 81-year-old female who presented to the emergency department for an evaluation of rectal bleeding. The patient states that she started noticing bleeding over the course of the weekend. She started noticing dark red blood as well as clots today. She called her family doctor and was referred to the emergency department for further evaluation. The patient denies having any fever. She denies having any chest pain or difficulty breathing. She does note some flank pain bilaterally. She denies having any dysuria frequency. She states that she did not have vaginal bleeding or hematuria. She states she does take Coumadin but stopped taking it last night because of the beginning of the bleeding. She has noticed some generalized weakness. The patient states that she has had colonoscopies in the past and does not have any significant findings to report. ROS: See above HPI for pertinent positives & negatives. A total of 10 systems reviewed and were otherwise negative. PAST MEDICAL HISTORY: See Below PAST SURGICAL HISTORY: See Below FAMILY HISTORY: See Below SOCIAL HISTORY: See Below HOME MEDICATIONS: See Below ALLERGIES: See Below VITALS: See Below PHYSICAL EXAMINATION: GENERAL: Patient is awake alert in no acute distress patient is resting com fortably and showing no signs of anxiety EYES: The conjunctivae are clear. The pupils are round and reactive. EARS, NOSE, MOUTH AND THROAT: The nose is without any evidence of any deformity. Mucous membranes are moist. Tongue is midline. NECK: The neck is nontender and supple. RESPIRATORY: Normal respiratory effort is noted there is no evidence of wheezing rhonchi or rales CARDIOVASCULAR: Regular rate and rhythm was noted auscultation. Systolic murmur was suggested. GASTROINTESTINAL: The abdomen was soft and mildly distended. There is no guarding or rigidity. Rectal exam revealed external hemorrhoids which were not thrombosed or bleeding. Stool was brown and strongly heme positive. MUSCULOSKELETAL/EXTREMITIES: There is no evidence of gross deformity full range of motion is noted in the hips and shoulders. SKIN: Pedal edema was noted bilaterally. NEUROLOGIC: Patient is awake alert and oriented x3. MEDICAL DECISION MAKING: Patient is an 81-year-old female who presented to the emergency department for an evaluation of GI bleeding. The patient was found to have strongly heme positive stool. Her stool was brown but she admitted that she had passed many clots. I discussed the patient's laboratory and radiographic studies with her. Given her past medical history and her medications I discussed her case with the on-call [facility] hospitalist group. They have agreed to evaluate the patient in the emergency department for further management and disposition. Triage Nursing notes reviewed. Prior medical records reviewed Vital Signs: reviewed and remarkable for hypotension. Differential diagnosis: Diverticulosis, AVM, coagulopathy, colitis, inflammatory bowel disease, malignancy, Shannon-Leiva tear, esophagitis, peptic ulcer disease, variceal bleed, gastritis, epistaxis, fissure, hemorrhoids, as well as other pathologies. ER treatment provided: See below Diagnostics interpreted by me: ECG: EKG was obtained in the emergency department. My interpretation is ventricular paced rhythm at 86 bpm. No hoh beats were noted. This was compared to a tracing from December 26, 2021. No changes were noted. Cardiac Monitoring: An order was placed for continuous cardiac monitoring. The monitor shows a rate of 76 bpm with paced rhythm. Laboratory studies: As stated above and show below. Imaging studies: See below Consultation(s): I discussed this patient with Dr Villatoro. 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; s/p surgery, radiation, chemo (receiving weekly oral/IV chemo Fridays + dexamethasone 40mg pretreatment prior to chemo) Positional vertigo Post herpetic neuralgia hx shingles Post-menopausal bleeding Sepsis Sleep apnea CPAP + 2 LPM O2 qhs Urinary leakage Surgical History H/O surgical biopsy Right distal humerus 11/21/18 History of appendectomy History of bilateral carpal tunnel release History of cataract surgery Bilateral History of cholecystectomy History of endometrial biopsy History of knee replacement procedure of left knee History of knee replacement procedure of right knee History of surgery right distal humerus replacement History of tonsillectomy S/P dilation and curettage S/P tooth extraction S/P tubal ligation Family History Mother , 89yo Myocardial infarction Congestive heart failure Father , Pt unsure of details of father's health history;Knows he had facial cancer Malignant neoplasm of oral cavity Sister , May 2019 of copd Diabetes Breast cancer Son Hypertension Grandmother Diabetes Denies family history of Prostate cancer Lung cancer Colorectal cancer Social History Smoking Status: Never smoker Second Hand Exposure: No; Hx Alcohol Use: No Hx Substance Use: No Preferred Language: Dutch Communication Ability: Effective Visual Impairment: No Limitations Hearing Ability: Normal 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 Beliefs That Will Affect Care: None marital status: Current Living Situation: Alone Current Living Situation Comment: family checks in current occupational status: retired 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 Feels Safe at Home: Yes Childhood Exposure to Second-Hand Smoke: No caffeine: Yes (1 cup/day) during the past year weight has: remained stable Dental Care, Regularly: No Physical Activity Frequency: Does not Exercise Seatbelt Use: always Sunscreen Use: Yes Assistive Devices: None Allergies Allergies Allergy/AdvReac Type Severity Reaction Status Date / Time adhesive tape AdvReac Mild Skin rash Verified 03/01/22 14:13 Home Meds Home Medications Medication Instructions Recorded Confirmed cholecalciferol (vitamin D3) 50 2,000 unit PO QAM tab 07/31/19 03/01/22 mcg (2,000 unit) tablet amoxicillin 500 mg capsule 2,000 mg PO ONCE PRN #4 cap 08/01/19 03/01/22 oxycodone 5 mg tablet 5 mg PO Q6H PRN #28 tab 08/01/19 03/01/22 acyclovir 400 mg tablet 400 mg PO BID 11/20/19 03/01/22 potassium phosphate, monobasic 500 500 mg PO DAILY tab 07/07/20 03/01/22 mg soluble tablet (K-Phos Original) lenalidomide 10 mg capsule 10 mg PO DAILY cap 11/18/20 03/01/22 (Revlimid) nystatin 100,000 unit/gram topical 1 applic TOPICAL DAILY PRN 12/04/20 03/01/22 powder multivitamin 1 tab PO DAILY 03/06/21 03/01/22 dexamethasone 4 mg tablet 20 mg PO WK 12/26/21 03/01/22 furosemide 20 mg tablet 20 mg PO QAM 12/26/21 03/01/22 acetaminophen 650 mg 650 mg PO DAILY PRN tab 12/31/21 03/01/22 tablet,extended release ascorbic acid (vitamin C) 500 mg 1,000 mg PO QAM tab 12/31/21 03/01/22 tablet calcium carbonate 600 mg calcium 600 mg PO DAILY 12/31/21 03/01/22 (1,500 mg) tablet (Calcium) cyanocobalamin (vitamin B-12) 500 1,000 mcg PO QAM tab 12/31/21 03/01/22 mcg tablet triamcinolone acetonide 0.1 % 1 applic TOPICAL BID PRN g 12/31/21 03/01/22 topical cream ketotifen fumarate 0.025 % (0.035 1 drp OPHTHALMIC (EYE) BID 03/01/22 03/01/22 %) eye drops ([place]) Previous Rx's Medication Instructions Recorded fluticasone propionate 50 1 spray INTRANASAL BID PRN #16 g 09/29/21 mcg/actuation nasal spray,suspension (Flonase Allergy Relief) metformin 500 mg tablet,extended 1,000 mg PO QPM #180 tab 10/06/21 release 24 hr venlafaxine 75 mg capsule,extended 75 mg PO QAM #30 cap 10/06/21 release 24 hr loratadine 10 mg capsule 10 mg PO DAILY PRN #30 cap 11/02/21 venlafaxine 150 mg 150 mg PO QPM #90 cap 12/30/21 capsule,extended release 24 hr warfarin 1 mg tablet See Rx Instructions PO DAILY #15 01/08/22 tab blood sugar diagnostic (OneTouch See Rx Instructions .ROUTE 01/18/22 Ultra Test) .COMPLEX #100 strip atorvastatin 10 mg tablet 10 mg PO DAILY #90 tab 02/12/22 warfarin 4 mg tablet See Rx Instructions .ROUTE 02/12/22 .COMPLEX #180 tablet Results & Data (ED) Vital Signs Vital Signs - 24 hr 03/01/22 13:25 03/01/22 14:13 03/01/22 14:31 Temperature 36.6 C Temperature Source Oral Pulse Rate 89 81 83 Respiratory Rate 22 20 20 Respiratory Effort / Characteristics Non-Labored Spontaneous Respiratory Depth Normal Respiratory Pattern Regular Blood Pressure 140/80 121/76 145/82 H Blood Pressure Mean 100 91 103 Blood Pressure Position Lying Pulse Oximetry 97 94 95 Oxygen Delivery Method Room Air Sepsis Recent Fever Within 48 Hours No Sepsis New/Unexplained Change in Mental Status No Sepsis Action Taken by Nursing No Action Required 03/01/22 15:00 Temperature Temperature Source Pulse Rate 87 Respiratory Rate 17 Respiratory Effort / Characteristics Respiratory Depth Respiratory Pattern Blood Pressure 154/69 H Blood Pressure Mean 97 Blood Pressure Position Pulse Oximetry 94 Oxygen Delivery Method Sepsis Recent Fever Within 48 Hours Sepsis New/Unexplained Change in Mental Status Sepsis Action Taken by [facility] Medications Current Medication List: was personally reviewed by me Laboratory Data Attestation: I reviewed the patient's lab results. Result diagrams: 03/01/22 13:50 03/01/22 13:50 Lab Results 03/01/22 03/01/22 03/01/22 Range/Units 13:50 13:50 13:50 WBC 2.94 L (4.8-10.8) K/uL RBC 2.81 L (4.2-5.4) M/uL Hgb 9.2 L (12.0-16.0) g/dL Hct 29.0 L (37-47) % MCV 103.2 H (80-100) fL MCH 32.7 (25-34) pg MCHC 31.7 L (32-36) g/dL RDW Std Deviation 60.8 H (36.4-46.3) fL RDW Coeff of Giuseppe 16.1 H (11.5-14.5) % Plt Count 128 L (130-400) K/uL MPV 11.8 H (7.4-10.4) fL Immature Gran % (Auto) 0.0 % Neut % (Auto) 41.8 % Lymph % (Auto) 26.2 % [place] % (Auto) 26.9 % Eos % (Auto) 5.1 % Baso % (Auto) 0.0 % Neut # (Auto) 1.23 L (1.4-6.5) K/uL Lymph # (Auto) 0.77 L (1.2-3.4) K/uL [place] # (Auto) 0.79 H (0.11-0.59) K/uL Eos # (Auto) 0.15 (0-0.5) K/uL Baso # (Auto) 0.00 (0-0.2) K/uL Immature Gran # (Auto) 0.00 (0.00-0.02) K/uL PT (9.0-12.0) Seconds INR (0.9-1.1) APTT (21.0-31.0) Seconds PTT Ratio Sodium (136-145) mmol/L Potassium (3.5-5.1) mmol/L Chloride (98-107) mmol/L Carbon Dioxide (21-32) mmol/L Anion Gap (3-11) BUN (6-23) mg/dl Creatinine (0.6-1.2) mg/dl Est Cr Clr Drug Dosing ml/min Est GFR ( Amer) ml/min Est GFR (Non-Af Amer) ml/min BUN/Creatinine Ratio (10-20) Glucose (70-99(Fasting)) mg/dl Calcium (8.5-10.1) mg/dl Total Bilirubin (0.2-1.0) mg/dl AST (13-39) U/L ALT (7-52) U/L Alkaline Phosphatase (34-104) U/L Troponin I High Sens 15.8 H (0-14) pg/ml Total Protein (6.0-8.3) gm/dl Albumin (3.4-5.0) gm/dl Globulin (2.5-4.0) gm/dl Albumin/Globulin Ratio (0.9-2) Lipase (11-82) U/L SARS-CoV-2, RNA, NAAT (NEGATIVE) Blood Type A Negative Antibody Screen NEGATIVE 03/01/22 03/01/22 03/01/22 Range/Units 13:50 13:50 14:55 WBC (4.8-10.8) K/uL RBC (4.2-5.4) M/uL Hgb (12.0-16.0) g/dL Hct (37-47) % MCV (80-100) fL MCH (25-34) pg MCHC (32-36) g/dL RDW Std Deviation (36.4-46.3) fL RDW Coeff of Giuseppe (11.5-14.5) % Plt Count (130-400) K/uL MPV (7.4-10.4) fL Immature Gran % (Auto) % Neut % (Auto) % Lymph % (Auto) % [place] % (Auto) % Eos % (Auto) % Baso % (Auto) % Neut # (Auto) (1.4-6.5) K/uL Lymph # (Auto) (1.2-3.4) K/uL [place] # (Auto) (0.11-0.59) K/uL Eos # (Auto) (0-0.5) K/uL Baso # (Auto) (0-0.2) K/uL Immature Gran # (Auto) (0.00-0.02) K/uL PT 18.3 H (9.0-12.0) Seconds INR 1.8 H (0.9-1.1) APTT 35.8 H (21.0-31.0) Seconds PTT Ratio 1.3 Sodium 140 (136-145) mmol/L Potassium 3.7 (3.5-5.1) mmol/L Chloride 104 (98-107) mmol/L Carbon Dioxide 29 (21-32) mmol/L Anion Gap 7 (3-11) BUN 12 (6-23) mg/dl Creatinine 0.78 (0.6-1.2) mg/dl Est Cr Clr Drug Dosing 66.1 ml/min Est GFR ( Amer) 82.6 ml/min Est GFR (Non-Af Amer) 71.3 ml/min BUN/Creatinine Ratio 15.4 (10-20) Glucose 110 H (70-99(Fasting)) mg/dl Calcium 8.4 L (8.5-10.1) mg/dl Total Bilirubin 0.4 (0.2-1.0) mg/dl AST 14 (13-39) U/L ALT 17 (7-52) U/L Alkaline Phosphatase 54 (34-104) U/L Troponin I High Sens (0-14) pg/ml Total Protein 6.2 (6.0-8.3) gm/dl Albumin 3.2 L (3.4-5.0) gm/dl Globulin 3.0 (2.5-4.0) gm/dl Albumin/Globulin Ratio 1.1 (0.9-2) Lipase 64 (11-82) U/L SARS-CoV-2, RNA, NAAT NEGATIVE (NEGATIVE) Blood Type Antibody Screen Administered Medications Discontinued Medications Ioversol (Optiray 320 100ml) 94 ml IV ONCE ONE Stop: 03/01/22 15:26 Last Admin: 03/01/22 15:25 Dose: 94 ml Documented by: [id number] Imaging Data Radiologist's Impression: KUB X-Ray 03/01/22 13:34 KUB HISTORY: GI bleed. COMPARISON: PET CT 07/23/2019. FINDINGS: The bowel gas pattern is unremarkable. There are no dilated loops of small bowel to suggest an obstruction. Gas-filled colon at the upper limits of normal. No renal calculi. No ureteral calculi. Calcifications in the deep pelvis likely represent phleboliths. No pneumoperitoneum or pneumatosis. Cholecystectomy. Evidence for prior ventral hernia repair. Pacemaker wires are partially visualized. IMPRESSION: 1. No evidence for bowel obstruction. 2. The colon is gas-filled and at the upper limits of normal for diameter. This may represent a mild ileus. 2. Prior cholecystectomy and ventral hernia repair. ACT 112: Negative or not required by law. Electronically signed by: Merrick Latif M.D. 03/01/2022 2:11 PM Chest X-Ray 03/01/22 13:35 XR chest 1V portable HISTORY: 81 years-old Female GIB acute GI bleed COMPARISON: Chest radiograph 12/26/2021 TECHNIQUE: Portable AP view of the chest FINDINGS: The cardiac silhouette is enlarged. Left subclavian pacer. Atherosclerosis of the thoracic aorta. No pneumothorax. Possible trace pleural effusions. Pulmonary vascular congestion. Mild bibasilar densities suggest atelectasis. Degenerative changes of the shoulders and spine. Chronic right-sided rib fractures. IMPRESSION: Cardiomegaly with pulmonary vascular congestion. ACT 112: Negative or not required by law. The above report was generated using voice recognition software. It may contain grammatical, syntax or spelling errors. Electronically signed by: Zane Portillo M.D. 03/01/2022 2:12 PM Abdomen/Pelvis CT 03/01/22 15:13 CT OF THE ABDOMEN AND PELVIS WITH CONTRAST CLINICAL HISTORY: GI bleed. Abdominal pain. History of myeloma. COMPARISON STUDY: PET/CT July 23 2019. Pelvic ultrasound July 31, 2019. CT of the abdomen and pelvis November 13, 2018. TECHNIQUE: Following IV administration of 94 mL of Optiray, axial images of the abdomen and pelvis were obtained from the lung bases to the proximal femurs. Images were reviewed in the axial, sagittal, and coronal planes. IV contrast was administered without complication. Automated exposure control was utilized for the study. A dose lowering technique was utilized adhering to the principles of ALARA. CT DOSE: 1484.27 mGy.cm FINDINGS: A water attenuation 3.3 cm subcutaneous nodule of the medial right breast was present on earlier exams. This represents a sebaceous cyst. Pacer leads are partially imaged. There is cardiomegaly. Ground glass opacities within the lower lungs represent atelectasis. No pneumatosis, free air or portal venous gas is present. Mild biliary ductal dilatation is unchanged since CT of November 13, 2018. There are no hepatic lesions. Bilateral renal lesions were present on prior CT. These favor cysts. There is no hydronephrosis. The spleen, adrenal glands and pancreas are unremarkable. No pancreatic ductal dilatation or peripancreatic infiltration is present. The appendix is not visualized. Colonic diverticulosis is noted without evidence for acute diverticulitis. Hyperdense foci within the distal small bowel and cecum probably reflect stool or ingested contents. No mucosal lesion is identified although sensitivity is diminished given CT technique. There is no abdominal or pelvic lymphadenopathy. Bladder is mildly distended. Major vasculature is patent. A lesion within the medullary canal of the subtrochanteric portion of the right femur is partially imaged. This measures at least 1.5 cm. This is new since PET/CT of July 23, 2019. There is probable 2.5 cm lesion within the left sacral ala on image 245. Multiple right-sided rib fractures are present. Moderate L5 compression fracture and mild L3 compression fracture on since prior PET/CT. However these appear chronic. Incidental note is made of umbilical hernia repair with mesh. IMPRESSION: 1. No acute process within the abdomen or pelvis. 2. Colonic diverticulosis without evidence for acute diverticulitis. 3. No bowel obstruction. No bowel wall thickening. 4. Skeletal lesions within the subtrochanteric portion of the right femur and left sacral ala which are new since prior PET/CT. Given the clinical history, these may reflect myeloma. 5. Moderate L5 and mild L3 compression fractures which are new since prior PET/CT but likely chronic. ACT 112: Negative or not required by law. Electronically signed by: Bhargav Steve M.D. 03/01/2022 3:54 PM Discharge Plan Visit Data Chief Complaint: GI Assessment ED Provider: Vinod Carmichael Discharge Problem: Acute GI bleeding, Pancytopenia Patient Disposition: Being Evaluated by Hospitalist Discharge Instructions Interventions: ED Discharge Assessment Last Done: 03/01/22 19:09
[2022-03-01 14:09] LABS: Eosinophils # (auto) 0.15 K/uL (0-0.5); Eosinophils % (auto) 5.1 %; Hemoglobin 9.2 g/dL (12.0-16.0); Lymphocytes # (auto) 0.77 K/uL (1.2-3.4); Lymphocytes % (auto) 26.2 %; Mean Corpuscular Hemoglobin 32.7 pg (25-34); Mean Corpuscular Hgb Conc 31.7 g/dL (32-36); Mean Corpuscular Volume 103.2 fL (80-100); Mean Platelet Volume 11.8 fL (7.4-10.4); Monocytes # (auto) 0.79 K/uL (0.11-0.59); Monocytes % (auto) 26.9 %; Neutrophils # (auto) 1.23 K/uL (1.4-6.5); Neutrophils % (auto) 41.8 %; Platelet Count 128 K/uL (130-400); RDW Coefficient of Variation 16.1 % (11.5-14.5); RDW Standard Deviation 60.8 fL (36.4-46.3); Red Blood Count 2.81 M/uL (4.2-5.4); White Blood Count 2.94 K/uL (4.8-10.8)
--- NOTE | 2022-03-01 14:13 | XRay Report ---
KUB HISTORY: GI bleed. COMPARISON: PET CT 07/23/2019. FINDINGS: The bowel gas pattern is unremarkable. There are no dilated loops of small bowel to suggest an obstruction. Gas-filled colon at the upper limits of normal. No renal calculi. No ureteral calcu li. Calcifications in the deep pelvis likely represent phleboliths. No pneumoperitoneum or pneumatosi s. Cholecystectomy. Evidence for prior ventral hernia repair. Pacemaker wires are partially visualize d. IMPRESSION: 1. No evidence for bowel obstruction. 2. The colon is gas-filled and at the upper limits of normal for diameter. This may represent a mild ileus. 2. Prior cholecystectomy and ventral hernia repair. ACT 112: Negative or not required by law. Electronically signed by: Merrick Latif M.D. 03/01/2022 2:11 PM
--- NOTE | 2022-03-01 14:13 | XRay Report ---
XR chest 1V portable HISTORY: 81 years-old Female GIB acute GI bleed COMPARISON: Chest radiograph 12/26/2021 TECHNIQUE: Portable AP view of the chest FINDINGS: The cardiac silhouette is enlarged. Left subclavian pacer. Atherosclerosis of the thoracic aorta. No pneumothorax. Possible trace pleural effusions. Pulmonary vascular congestion. Mild bibasilar densiti es suggest atelectasis. Degenerative changes of the shoulders and spine. Chronic right-sided rib frac tures. IMPRESSION: Cardiomegaly with pulmonary vascular congestion. ACT 112: Negative or not required by law. The above report was generated using voice recognition software. It may contain grammatical, syntax o r spelling errors. Electronically signed by: Zane Portillo M.D. 03/01/2022 2:12 PM
[2022-03-01 14:25] LABS: INR 1.8 (0.9-1.1); Partial Thromboplastin Ratio 1.3; Partial Thromboplastin Time 35.8 Seconds (21.0-31.0); Prothrombin Time 18.3 Seconds (9.0-12.0)
[2022-03-01 14:31] LABS: Albumin Globulin Ratio 1.1 (0.9-2); Albumin Level 3.2 gm/dl (3.4-5.0); BUN Creatinine Ratio 15.4 (10-20); Bilirubin,Total 0.4 mg/dl (0.2-1.0); Calcium 8.4 mg/dl (8.5-10.1); Creatinine Clr Calc Pharmacy 66.1 ml/min; Est GFR (African American) 82.6 ml/min; Est GFR (Non-African American) 71.3 ml/min; Potassium 3.7 mmol/L (3.5-5.1); Total Protein 6.2 gm/dl (6.0-8.3)
[2022-03-01] MEDS ORDERED: OPTIRAY 320 100ml IV ONE (15:25)
--- NOTE | 2022-03-01 15:54 | History & Physical Report ---
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 (6) Myeloma: Plan: 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 (7) Plasmacytoma: Plan: See above (8) Pacemaker: (9) Sleep apnea: Plan: CPAP at bedtime as needed History of Present Illness Chief Complaint: The patient presents to the emergency department with complaint of 2 bloody bowel movements, one yesterday and today Primary Care Provider: Kulwinder Byers MD The patient is an 81-year-old female with a past medical history including myeloma on chemotherapy, lumbar radiculopathy, morbid obesity, depression, hyperlipidemia, COVID-19 pneumonia, aortic stenosis, sleep apnea, diabetes mellitus type 2, endometrial intraepithelial neoplasia, complete heart block, status post pacer, pyelonephritis, plasmacytoma, and long-term use of anticoagulants. The patient notes with the assistance of her son who was in the room, that she has had loose bowel movements every day, and after which she takes Imodium. This has been going on for several months. Yesterday and today the first day she has had bloody bowel movements. She has chronic generalized abdominal pain, and has noted increased abdominal distention. She questions as to whether her cancer medication may be causing her symptoms. She denies any use of anti-inflammatories such as Advil, Motrin, Aleve. Allergies Allergy/AdvReac Type Severity Reaction Status Date / Time adhesive tape AdvReac Mild Skin rash Verified 03/01/22 14:13 Home Medications Medication Instructions Recorded Confirmed Type cholecalciferol (vitamin D3) 50 2,000 unit PO QAM tab 07/31/19 03/01/22 History mcg (2,000 unit) tablet amoxicillin 500 mg capsule 2,000 mg PO ONCE PRN #4 cap 08/01/19 03/01/22 History oxycodone 5 mg tablet 5 mg PO Q6H PRN #28 tab 08/01/19 03/01/22 History acyclovir 400 mg tablet 400 mg PO BID 11/20/19 03/01/22 History potassium phosphate, monobasic 500 500 mg PO DAILY tab 07/07/20 03/01/22 History mg soluble tablet (K-Phos Original) lenalidomide 10 mg capsule 10 mg PO DAILY cap 11/18/20 03/01/22 History (Revlimid) nystatin 100,000 unit/gram topical 1 applic TOPICAL DAILY PRN 12/04/20 03/01/22 History powder multivitamin 1 tab PO DAILY 03/06/21 03/01/22 History fluticasone propionate 50 1 spray INTRANASAL BID PRN #16 g 09/29/21 03/01/22 Rx mcg/actuation nasal spray,suspension (Flonase Allergy Relief) metformin 500 mg tablet,extended 1,000 mg PO QPM #180 tab 10/06/21 03/01/22 Rx release 24 hr venlafaxine 75 mg capsule,extended 75 mg PO QAM #30 cap 10/06/21 03/01/22 Rx release 24 hr loratadine 10 mg capsule 10 mg PO DAILY PRN #30 cap 11/02/21 03/01/22 Rx dexamethasone 4 mg tablet 20 mg PO WK 12/26/21 03/01/22 History furosemide 20 mg tablet 20 mg PO QAM 12/26/21 03/01/22 History venlafaxine 150 mg 150 mg PO QPM #90 cap 12/30/21 03/01/22 Rx capsule,extended release 24 hr acetaminophen 650 mg 650 mg PO DAILY PRN tab 12/31/21 03/01/22 History tablet,extended release ascorbic acid (vitamin C) 500 mg 1,000 mg PO QAM tab 12/31/21 03/01/22 History tablet calcium carbonate 600 mg calcium 600 mg PO DAILY 12/31/21 03/01/22 History (1,500 mg) tablet (Calcium) cyanocobalamin (vitamin B-12) 500 1,000 mcg PO QAM tab 12/31/21 03/01/22 History mcg tablet triamcinolone acetonide 0.1 % 1 applic TOPICAL BID PRN g 12/31/21 03/01/22 History topical cream warfarin 1 mg tablet See Rx Instructions PO DAILY #15 01/08/22 03/01/22 Rx tab blood sugar diagnostic (OneTouch See Rx Instructions .ROUTE 01/18/22 Rx Ultra Test) .COMPLEX #100 strip atorvastatin 10 mg tablet 10 mg PO DAILY #90 tab 02/12/22 03/01/22 Rx warfarin 4 mg tablet See Rx Instructions .ROUTE 02/12/22 03/01/22 Rx .COMPLEX #180 tablet ketotifen fumarate 0.025 % (0.035 1 drp OPHTHALMIC (EYE) BID 03/01/22 03/01/22 History %) eye drops ([place]) 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; s/p surgery, radiation, chemo (receiving weekly oral/IV chemo Fridays + dexamethasone 40mg pretreatment prior to chemo) Positional vertigo Post herpetic neuralgia hx shingles Post-menopausal bleeding Sepsis Sleep apnea CPAP + 2 LPM O2 qhs Urinary leakage Surgical History H/O surgical biopsy Right distal humerus 11/21/18 History of appendectomy History of bilateral carpal tunnel release History of cataract surgery Bilateral History of cholecystectomy History of endometrial biopsy History of knee replacement procedure of left knee History of knee replacement procedure of right knee History of surgery right distal humerus replacement History of tonsillectomy S/P dilation and curettage S/P tooth extraction S/P tubal ligation Family History Mother , 89yo Myocardial infarction Congestive heart failure Father , Pt unsure of details of father's health history;Knows he had facial cancer Malignant neoplasm of oral cavity Sister , May 2019 of copd Diabetes Breast cancer Son Hypertension Grandmother Diabetes Denies family history of Prostate cancer Lung cancer Colorectal cancer Social History Smoking Status: Never smoker Second Hand Exposure: No; Hx Alcohol Use: No Hx Substance Use: No Preferred Language: Wolof Communication Ability: Effective Visual Impairment: No Limitations Hearing Ability: Normal [place] Required: No Beliefs That Will Affect Care: None marital status: Current Living Situation: Alone Current Living Situation Comment: family checks in current occupational status: 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 Safe at Home: Yes Childhood Exposure to Second-Hand Smoke: No caffeine: Yes (1 cup/day) during the past year weight has: remained stable Dental Care, Regularly: No Physical Activity Frequency: Does not Exercise Seatbelt Use: always Sunscreen Use: Yes Assistive Devices: None Review of Systems Review of Systems: The patient denies chest pain, palpitations, shortness of breath, dyspnea on exertion, cough, lower extremity swelling, sore throat, fevers, chills, sweats, nausea, vomiting, diarrhea , constipation, blood in urine or stool, dysuria, urinary frequency or urgency, lightheadedness, dizziness, headache, memory loss, loss of consciousness, rash, abnormal bruising or bleeding, imbalance, focal weakness, numbness or tingling in arms or legs, generalized arthralgias or myalgias, back or neck pain, or night sweats. The review of systems is otherwise negative other than for that already noted above, and at least 10 systems have been reviewed. Physical Exam Physical Exam: The patient is awake, alert and oriented 3, well developed and well nourished, normocephalic and atraumatic, lying in bed and in no acute distress. HEENT--PERRL, EOMI, mucous membranes and oropharynx dry. Neck--supple. No JVD. No bruits. Thyroid normal, trachea midline, no adenopathy. Heart--normal S1 and S2. No murmurs, rubs or gallops. Lungs--clear bilaterally, no respiratory distress, no accessory muscle use. Abdomen--normal bowel sounds and soft. Distended. Generalized tenderness. Morbidly obese. Extremities--no cyanosis or clubbing. 1+ bilateral pretibial pitting edema Dermatologic--normal skin turgor, normal color, Neurologic--cranial nerves II through XII grossly intact. Rheumatologic--limited exam due to body habitus Psychiatric--normal affect. Results & Data Results & Data ([facility]) Vital Signs (Past 12 Hours) Vital Signs Temp Pulse Resp BP Pulse Ox 03/01/22 15:00 87 17 154/69 H 94 03/01/22 14:31 83 20 145/82 H 95 03/01/22 14:13 81 20 121/76 94 03/01/22 13:25 36.6 C 89 22 140/80 97 Laboratory Results Laboratory Results WBC 2.94 K/uL (4.8-10.8) L 03/01/22 13:50 RBC 2.81 M/uL (4.2-5.4) L 03/01/22 13:50 Hgb 9.2 g/dL (12.0-16.0) L 03/01/22 13:50 Hct 29.0 % (37-47) L 03/01/22 13:50 MCV 103.2 fL (80-100) H 03/01/22 13:50 MCH 32.7 pg (25-34) 03/01/22 13:50 MCHC 31.7 g/dL (32-36) L 03/01/22 13:50 RDW Std Deviation 60.8 fL (36.4-46.3) H 03/01/22 13:50 RDW Coeff of Giuseppe 16.1 % (11.5-14.5) H 03/01/22 13:50 Plt Count 128 K/uL (130-400) L 03/01/22 13:50 MPV 11.8 fL (7.4-10.4) H 03/01/22 13:50 Immature Gran % (Auto) 0.0 % 03/01/22 13:50 Neut % (Auto) 41.8 % 03/01/22 13:50 Lymph % (Auto) 26.2 % 03/01/22 13:50 Lee % (Auto) 26.9 % 03/01/22 13:50 Eos % (Auto) 5.1 % 03/01/22 13:50 Baso % (Auto) 0.0 % 03/01/22 13:50 Neut # (Auto) 1.23 K/uL (1.4-6.5) L 03/01/22 13:50 Lymph # (Auto) 0.77 K/uL (1.2-3.4) L 03/01/22 13:50 Lee # (Auto) 0.79 K/uL (0.11-0.59) H 03/01/22 13:50 Eos # (Auto) 0.15 K/uL (0-0.5) 03/01/22 13:50 Baso # (Auto) 0.00 K/uL (0-0.2) 03/01/22 13:50 Immature Gran # (Auto) 0.00 K/uL (0.00-0.02) 03/01/22 13:50 PT 18.3 Seconds (9.0-12.0) H 03/01/22 13:50 INR 1.8 (0.9-1.1) H 03/01/22 13:50 APTT 35.8 Seconds (21.0-31.0) H 03/01/22 13:50 PTT Ratio 1.3 03/01/22 13:50 Sodium 140 mmol/L (136-145) 03/01/22 13:50 Potassium 3.7 mmol/L (3.5-5.1) 03/01/22 13:50 Chloride 104 mmol/L (98-107) 03/01/22 13:50 Carbon Dioxide 29 mmol/L (21-32) 03/01/22 13:50 Anion Gap 7 (3-11) 03/01/22 13:50 BUN 12 mg/dl (6-23) 03/01/22 13:50 Creatinine 0.78 mg/dl (0.6-1.2) 03/01/22 13:50 Est Cr Clr Drug Dosing 66.1 ml/min 03/01/22 13:50 Est GFR ( Amer) 82.6 ml/min 03/01/22 13:50 Est GFR (Non-Af Amer) 71.3 ml/min 03/01/22 13:50 BUN/Creatinine Ratio 15.4 (10-20) 03/01/22 13:50 Glucose 110 mg/dl (70-99(Fasting)) H 03/01/22 13:50 Calcium 8.4 mg/dl (8.5-10.1) L 03/01/22 13:50 Total Bilirubin 0.4 mg/dl (0.2-1.0) 03/01/22 13:50 AST 14 U/L (13-39) 03/01/22 13:50 ALT 17 U/L (7-52) 03/01/22 13:50 Alkaline Phosphatase 54 U/L (34-104) 03/01/22 13:50 Troponin I High Sens 15.8 pg/ml (0-14) H 03/01/22 13:50 Total Protein 6.2 gm/dl (6.0-8.3) 03/01/22 13:50 Albumin 3.2 gm/dl (3.4-5.0) L 03/01/22 13:50 Globulin 3.0 gm/dl (2.5-4.0) 03/01/22 13:50 Albumin/Globulin Ratio 1.1 (0.9-2) 03/01/22 13:50 Lipase 64 U/L (11-82) 03/01/22 13:50 SARS-CoV-2, RNA, NAAT NEGATIVE (NEGATIVE) 03/01/22 14:55 Blood Type A Negative 03/01/22 13:50 Antibody Screen NEGATIVE 03/01/22 13:50 Impressions KUB X-Ray 03/01/22 13:34 KUB HISTORY: GI bleed. COMPARISON: PET CT 07/23/2019. FINDINGS: The bowel gas pattern is unremarkable. There are no dilated loops of small bowel to suggest an obstruction. Gas-filled colon at the upper limits of normal. No renal calculi. No ureteral calculi. Calcifications in the deep pelvis likely represent phleboliths. No pneumoperitoneum or pneumatosis. Cholecystectomy. Evidence for prior ventral hernia repair. Pacemaker wires are partially visualized. IMPRESSION: 1. No evidence for bowel obstruction. 2. The colon is gas-filled and at the upper limits of normal for diameter. This may represent a mild ileus. 2. Prior cholecystectomy and ventral hernia repair. ACT 112: Negative or not required by law. Electronically signed by: Merrick Latif M.D. 03/01/2022 2:11 PM Chest X-Ray 03/01/22 13:35 XR chest 1V portable HISTORY: 81 years-old Female GIB acute GI bleed COMPARISON: Chest radiograph 12/26/2021 TECHNIQUE: Portable AP view of the chest FINDINGS: The cardiac silhouette is enlarged. Left subclavian pacer. Atherosclerosis of the thoracic aorta. No pneumothorax. Possible trace pleural effusions. Pulmonary vascular congestion. Mild bibasilar densities suggest atelectasis. Degenerative changes of the shoulders and spine. Chronic right-sided rib fractures. IMPRESSION: Cardiomegaly with pulmonary vascular congestion. ACT 112: Negative or not required by law. The above report was generated using voice recognition software. It may contain grammatical, syntax or spelling errors. Electronically signed by: Zane Portillo M.D. 03/01/2022 2:12 PM Code Status & VTE Plan Code Status Full code VTE Prophylaxis Plan VTE Prophylaxis will be ordered: Yes PG Care Time/CCT Total # of Minutes Spent Total Time Spent with Patient: Total time spent is greater than 50% in coordination of care (as documented) at patient's floor/unit and/or counseling patient: Coding Level of Care Code 64618 Initial Inpt Care Lvl 3 Diagnoses Lower GI bleed K92.2 Hyperlipidemia E78.5 Hyperlipidemia type: unspecified Aortic stenosis I35.0 Cardiac valve disease etiology: etiology unspecified Sleep apnea G47.30 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, type 2 E11.9 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 supervisor long goods insulin use: without correction use 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 complication status: without complication 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 Z95.0 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 Z79.01 Myeloma C90.00 Multiple myeloma remission status: not in remission 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 Plasmacytoma active/remission status: not having achieved remission (1) Hyperlipidemia Hyperlipidemia type: unspecified Qualified Code(s): E78.5 - Hyperlipidemia, unspecified (2) Aortic stenosis Cardiac valve disease etiology: etiology unspecified Qualified Code(s): I35.0 - Nonrheumatic aortic (valve) stenosis (3) 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, type 2 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 correction insulin use: without supervisor long goods use 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 complication status: without complication Qualified Code(s): E11.9 - Type 2 diabetes mellitus without complications (4) Myeloma Multiple myeloma remission status: not in remission Qualified Code(s): C90.00 - Multiple myeloma not having achieved remission (5) Plasmacytoma Plasmacytoma type: solitary plasmacytoma Plasmacytoma active/remission status: not having achieved remission Qualified Code(s): C90.30 - 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
--- NOTE | 2022-03-01 15:55 | CT Scan Report ---
CT OF THE ABDOMEN AND PELVIS WITH CONTRAST CLINICAL HISTORY: GI bleed. Abdominal pain. History of myeloma. COMPARISON STUDY: PET/CT July 23 2019. Pelvic ultrasound July 31, 2019. CT of the abdomen a nd pelvis November 13, 2018. TECHNIQUE: Following IV administration of 94 mL of Optiray, axial images of the abdomen and pelvis we re obtained from the lung bases to the proximal femurs. Images were reviewed in the axial, sagittal, and coronal planes. IV contrast was administered without complication. Automated exposure control wa s utilized for the study. A dose lowering technique was utilized adhering to the principles of ALARA . CT DOSE: 1484.27 mGy.cm FINDINGS: A water attenuation 3.3 cm subcutaneous nodule of the medial right breast was present on ea rlier exams. This represents a sebaceous cyst. Pacer leads are partially imaged. There is cardiomegal y. Ground glass opacities within the lower lungs represent atelectasis. No pneumatosis, free air or p ortal venous gas is present. Mild biliary ductal dilatation is unchanged since CT of November 13 8. There are no hepatic lesions. Bilateral renal lesions were present on prior CT. These favor cysts. There is no hydronephrosis. The spleen, adrenal glands and pancreas are unremarkable. No pancreatic ductal dilatation or peripancreatic infiltration is present. The appendix is not visualized. Colonic diverticulosis is noted without evidence for acute diverticulitis. Hyperdense foci within the distal small bowel and cecum probably reflect stool or ingested contents. No mucosal lesion is identified al though sensitivity is diminished given CT technique. There is no abdominal or pelvic lymphadenopathy. Bladder is mildly distended. Major vasculature is patent. A lesion within the medullary canal of the subtrochanteric portion of the right femur is partially imaged. This measures at least 1.5 cm. This is new since PET/CT of July 23, 2019. There is probable 2.5 cm lesion within the left sacral ala on image 245. Multiple right-sided rib fractures are present. Moderate L5 compression fracture and mi ld L3 compression fracture on since prior PET/CT. However these appear chronic. Incidental note is ma de of umbilical hernia repair with mesh. IMPRESSION: 1. No acute process within the abdomen or pelvis. 2. Colonic diverticulosis without evidence for acute diverticulitis. 3. No bowel obstruction. No bowel wall thickening. 4. Skeletal lesions within the subtrochanteric portion of the right femur and left sacral ala which a re new since prior PET/CT. Given the clinical history, these may reflect myeloma. 5. Moderate L5 and mild L3 compression fractures which are new since prior PET/CT but likely chronic. ACT 112: Negative or not required by law. Electronically signed by: Bhargav Steve M.D. 03/01/2022 3:54 PM
--- NOTE | 2022-03-01 18:09 | Electrocardiogram Report ---
Test Reason : Blood Pressure : / mmHG Vent. Rate : 086 BPM Atrial Rate : 088 BPM P-R Int : 000 ms QRS Dur : 162 ms QT Int : 472 ms P-R-T Axes : 024 -84 086 degrees QTc Int : 564 ms Ventricular-paced rhythm Abnormal ECG When compared with ECG of 26-DEC-2021 21:14, Vent. rate has decreased BY 6 BPM Confirmed by Ugo Bethea ([id number]) on 03/01/2022 6:08:40 PM Referred By: Confirmed By:Eros Bethea
[2022-03-01] MEDS ORDERED: ONDANSETRON INJ 2 MG/ML 2 ML VIAL IV PRN (19:48)
--- NOTE | 2022-03-01 20:07 | Communication Note ---
Date of Service: March 01, 2022 nursing reporting hematuria continue to follow H/H. Hb 9.1 (8pm 03/01), 8.6 (1:30am 03/02), 9.1 (5am 03/02) notified about critical low neutrophil count. reviewed chart hx. has multiple myeloma and follows heme onc as outpatient adding neutropenic precautions
[2022-03-01] MEDS: NSS + 20MEQ KCL 20 MEQ/1,000 ML BAG IV SCH (20:28)
[2022-03-01 20:34] LABS: Hematocrit (blood only) 28.1 % (37-47); Hemoglobin 9.1 g/dL (12.0-16.0)
[2022-03-02 01:45] LABS: Hemoglobin 8.6 g/dL (12.0-16.0); Mean Corpuscular Hgb Conc 31.9 g/dL (32-36); Mean Corpuscular Volume 103.4 fL (80-100); Mean Platelet Volume 11.5 fL (7.4-10.4); Platelet Count 126 K/uL (130-400); RDW Standard Deviation 60.6 fL (36.4-46.3); Red Blood Count 2.61 M/uL (4.2-5.4); White Blood Count 2.69 K/uL (4.8-10.8)
[2022-03-02] MEDS ORDERED: DEXTROSE 50% 50 ML SYRINGE IV PRN (01:52)
[2022-03-02] MEDS ORDERED: GLUCOSE 10 TABS/TUBE PO PRN (01:52)
[2022-03-02] MEDS ORDERED: GLUCAGON FOR INJ 1 MG VIAL SQ PRN (01:52)
[2022-03-02] MEDS ORDERED: CARBOHYDRATES FOR HYPOGLYCEMIA PO PRN (01:52)
[2022-03-02] MEDS ORDERED: GLUCOSE 40% GEL 15 GM TUBE PO PRN (01:52)
[2022-03-02 02:21] LABS: Basophils # (auto) 0.01 K/uL (0-0.2); Basophils % (auto) 0.4 %; Eosinophils # (auto) 0.27 K/uL (0-0.5); Lymphocytes # (auto) 0.64 K/uL (1.2-3.4); Lymphocytes % (auto) 23.8 %; Monocytes # (auto) 0.91 K/uL (0.11-0.59); Monocytes % (auto) 33.8 %; Neutrophils # (auto) 0.86 K/uL (1.4-6.5)
[2022-03-02] MEDS ORDERED: Nursing to Pharmacy Communication SCH (02:30)
[2022-03-02 03:10] LABS: Appearance Urine Clear (Clear); Bacteria Urine Automated Negative (Negative); Bilirubin Urine Negative (Negative); Blood Urine Negative (Negative); Color Urine Yellow; Epithelial Cell Urine Auto >30 /lpf (0-5); Glucose Urine UA Negative (Negative); Ketones Urine Negative (Negative); Leukocyte Esterase Urine Trace (Negative); Nitrite Urine Negative (Negative); Protein Urine Trace (Negative); RBC Urine Automated 0-4 /hpf (0-4); Specific Gravity Urine 1.037 (1.000-1.030); Urobilinogen Urine Negative (Negative)
[2022-03-02 06:05] LABS: Hematocrit (blood only) 28.6 % (37-47); Hemoglobin 9.1 g/dL (12.0-16.0); Mean Corpuscular Hemoglobin 33.1 pg (25-34); Mean Corpuscular Hgb Conc 31.8 g/dL (32-36); Mean Platelet Volume 11.5 fL (7.4-10.4); Platelet Count 120 K/uL (130-400); RDW Coefficient of Variation 16.1 % (11.5-14.5); RDW Standard Deviation 61.4 fL (36.4-46.3); Red Blood Count 2.75 M/uL (4.2-5.4); White Blood Count 2.61 K/uL (4.8-10.8)
[2022-03-02 06:15] LABS: INR 1.6 (0.9-1.1); Partial Thromboplastin Ratio 1.2; Partial Thromboplastin Time 33.8 Seconds (21.0-31.0); Prothrombin Time 16.5 Seconds (9.0-12.0)
[2022-03-02] MEDS: INSULIN ASPART PER UNIT SC SCH ×3 (06:25→18:34)
[2022-03-02 06:40] LABS: Albumin Level 2.9 gm/dl (3.4-5.0); BUN Creatinine Ratio 12.2 (10-20); Bilirubin,Total 0.5 mg/dl (0.2-1.0); Calcium 7.8 mg/dl (8.5-10.1); Creatinine Clr Calc Pharmacy 66.8 ml/min; Est GFR (African American) 88.1 ml/min; Globulin 2.9 gm/dl (2.5-4.0); Magnesium 1.9 mg/dl (1.7-2.4); Potassium 3.7 mmol/L (3.5-5.1); Total Protein 5.8 gm/dl (6.0-8.3)
[2022-03-02 06:53] LABS: Basophils # (auto) 0.01 K/uL (0-0.2); Basophils % (auto) 0.4 %; Eosinophils # (auto) 0.28 K/uL (0-0.5); Eosinophils % (auto) 10.7 %; Giant Platelets 1+; Lymphocytes # (auto) 0.59 K/uL (1.2-3.4); Lymphocytes % (auto) 22.6 %; Monocytes # (auto) 0.75 K/uL (0.11-0.59); Monocytes % (auto) 28.7 %; Neutrophils # (auto) 0.98 K/uL (1.4-6.5); Neutrophils % (auto) 37.6 %
[2022-03-02] MEDS ORDERED: INSULIN ASPART PER UNIT SC SCH (07:30)
[2022-03-02 07:57] LABS: Estimated Average Glucose 137 mg/dl; Hemoglobin A1C 6.4 % (4.5-5.6)
[2022-03-02] MEDS: NSS + 20MEQ KCL 20 MEQ/1,000 ML BAG IV SCH (09:01)
--- NOTE | 2022-03-02 09:42 | Gastrointestinal Consultation ---
Date of Consultation March 02, 2022 Assessment & Plan (1) Lower GI bleed: Patient does make it very clear that she is not interested in a colonoscopy. She notes that even if something significant were found, she would elect to not do anything about it as she is already undergoing treatment for her multiple myeloma. She agrees to empirically treating for hemorrhoidal bleeding as she has struggled with this in the past. Begin Anucort 25 mg BID x 10 days. Would advise Metamucil 1 TBSP daily. Consider BID PPI therapy empirically in the event bleeding is secondary to peptic ulcers. Supervising Physician Co-Signing Physician Notes Agree with RASHAUN Fairbanks as above Abd: Soft, NT, ND, +BS Patient refuses invasive workup at present, which is reasonable with recent negative PET CT for GI findings Continue supportive care Advance diet as tolerated History of Present Illness Reason for Consultation: Lower GI bleeding Attending Physician: Kulwinder Magallanes MD History of Present Illness Chantel is an 81 yo female with current history of multiple myeloma on chemotherapy, lumbar radiculopathy, morbid obesity, aortic valve stenosis, depression, HLD, COVID19 pneumonia, DARRELL, DM2, endometrial intraepithelial neoplasia, heart block s/p PPM, and history of PE on long-term anticoagulation with Warfarin. She notes that lately she has been having 2-3 loose bowel movements daily for the past several months. She notes that over the past 2 da ys, she has developed bright red blood with bowel movements. She denies rectal pain or abdominal pain. She had a CT scan of the abdomen/pelvis. While this indicated new skeletal lesions from her last PET scan, it did not indicate any acute GI issues. She notes a history of hemorrhoids. She had a colonoscopy in 2008 for rectal bleeding which was ultimately felt to be hemorrhoidal by Dr. Cunningham. She denies NSAID use, heartburn, or reflux. H/H 9.1/28.6. Patient does make it very clear that she is not interested in a colonoscopy. She notes that even if something significant were found, she would elect to not do anything about it as she is already undergoing treatment for her multiple myeloma. Allergies Allergy/AdvReac Type Severity Reaction Status Date / Time adhesive tape AdvReac Mild Skin rash Verified 03/01/22 14:13 Home Medications Medication Instructions Recorded Confirmed Type cholecalciferol (vitamin D3) 50 2,000 unit PO QAM tab 07/31/19 03/01/22 History mcg (2,000 unit) tablet amoxicillin 500 mg capsule 2,000 mg PO ONCE PRN #4 cap 08/01/19 03/01/22 History oxycodone 5 mg tablet 5 mg PO Q6H PRN #28 tab 08/01/19 03/01/22 History acyclovir 400 mg tablet 400 mg PO BID 11/20/19 03/01/22 History potassium phosphate, monobasic 500 500 mg PO DAILY tab 07/07/20 03/01/22 History mg soluble tablet (K-Phos Original) lenalidomide 10 mg capsule 10 mg PO DAILY cap 11/18/20 03/01/22 History (Revlimid) nystatin 100,000 unit/gram topical 1 applic TOPICAL DAILY PRN 12/04/20 03/01/22 History powder multivitamin 1 tab PO DAILY 03/06/21 03/01/22 History fluticasone propionate 50 1 spray INTRANASAL BID PRN #16 g 09/29/21 03/01/22 Rx mcg/actuation nasal spray,suspension (Flonase Allergy Relief) metformin 500 mg tablet,extended 1,000 mg PO QPM #180 tab 10/06/21 03/01/22 Rx release 24 hr venlafaxine 75 mg capsule,extended 75 mg PO QAM #30 cap 10/06/21 03/01/22 Rx release 24 hr loratadine 10 mg capsule 10 mg PO DAILY PRN #30 cap 11/02/21 03/01/22 Rx dexamethasone 4 mg tablet 20 mg PO WK 12/26/21 03/01/22 History furosemide 20 mg tablet 20 mg PO QAM 12/26/21 03/01/22 History venlafaxine 150 mg 150 mg PO QPM #90 cap 12/30/21 03/01/22 Rx capsule,extended release 24 hr acetaminophen 650 mg 650 mg PO DAILY PRN tab 12/31/21 03/01/22 History tablet,extended release ascorbic acid (vitamin C) 500 mg 1,000 mg PO QAM tab 12/31/21 03/01/22 History tablet calcium carbonate 600 mg calcium 600 mg PO DAILY 12/31/21 03/01/22 History (1,500 mg) tablet (Calcium) cyanocobalamin (vitamin B-12) 500 1,000 mcg PO QAM tab 12/31/21 03/01/22 History mcg tablet triamcinolone acetonide 0.1 % 1 applic TOPICAL BID PRN g 12/31/21 03/01/22 History topical cream warfarin 1 mg tablet See Rx Instructions PO DAILY #15 01/08/22 03/01/22 Rx tab blood sugar diagnostic (OneTouch See Rx Instructions .ROUTE 01/18/22 Rx Ultra Test) .COMPLEX #100 strip atorvastatin 10 mg tablet 10 mg PO DAILY #90 tab 02/12/22 03/01/22 Rx warfarin 4 mg tablet See Rx Instructions .ROUTE 02/12/22 03/01/22 Rx .COMPLEX #180 tablet ketotifen fumarate 0.025 % (0.035 1 drp OPHTHALMIC (EYE) BID 03/01/22 03/01/22 History %) eye drops ([place]) Patient History Medical History Anxiety Basal cell carcinoma face Cervical radiculopathy Degenerative disc disease Depression 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, type 2 NIDDM Endometrial intraepithelial neoplasia (EIN) Fracture, humerus Hemorrhoids History of seizure last seizure 1995 Hyperlipidemia Morbid obesity Myeloma Osteoarthritis 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; s/p surgery, radiation, chemo (receiving weekly oral/IV chemo Fridays + dexamethasone 40mg pretreatment prior to chemo) Positional vertigo Post herpetic neuralgia hx shingles Post-menopausal bleeding Sepsis Sleep apnea CPAP + 2 LPM O2 qhs Urinary leakage Surgical History H/O surgical biopsy Right distal humerus 11/21/18 History of appendectomy History of bilateral carpal tunnel release History of cataract surgery Bilateral History of cholecystectomy History of endometrial biopsy History of knee replacement procedure of left knee History of knee replacement procedure of right knee History of surgery right distal humerus replacement History of tonsillectomy S/P dilation and curettage S/P tooth extraction S/P tubal ligation Family History Mother , 89yo Myocardial infarction Congestive heart failure Father , Pt unsure of details of father's health history;Knows he had facial cancer Malignant neoplasm of oral cavity Sister , May 2019 of copd Diabetes Breast cancer Son Hypertension Grandmother Diabetes Denies family history of Prostate cancer Lung cancer Colorectal cancer Social History Smoking Status: Never smoker Second Hand Exposure: No; Hx Alcohol Use: No Hx Substance Use: No Preferred Language: Tamazight Communication Ability: Effective Visual Impairment: No Limitations Hearing Ability: Normal Finance Director Required: No Beliefs That Will Affect Care: None marital status: Current Living Situation: Alone Current Living Situation Comment: family checks in current occupational status: 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 [employer] Feels Safe at Home: Yes Childhood Exposure to Second-Hand Smoke: No caffeine: Yes (1 cup/day) during the past year weight has: remained stable Dental Care, Regularly: No Physical Activity Frequency: Does not Exercise Seatbelt Use: always Sunscreen Use: Yes Assistive Devices: CPAP, Denture - Upper, Denture - Lower, Glasses and Oxygen - at Night Review of Systems Constitutional: no fever and no chills Respiratory: no cough and no dyspnea Cardiovascular: no chest pain Gastrointestinal: + change in bowel habits and + blood in stools; no abdominal pain Integumentary: no problem reported Psychiatric: no problem reported Endocrine: no problem reported Hematologic / Lymphatic: no unexplained weight loss Physical Exam Constitutional: well developed Respiratory: normal respiratory effort Cardiovascular: Rate/Rhythm: regular rate Gastrointestinal (Abdomen): Inspection/Auscultation: abdomen normal to inspection Percussion/Palpation: abdomen soft; abdomen nontender Musculoskeletal: Head/Neck/Chest: normocephalic Psychiatric: Orientation: alert and oriented x 3 Results & Data ([facility]) Vital Signs (Past 12 Hours) Vital Signs Temp Pulse Pulse Resp BP Pulse Ox 03/02/22 06:47 36.8 C 74 20 149/82 H 94 03/02/22 03:45 77 24 95 03/02/22 03:41 36.6 C 78 20 128/83 98 03/02/22 03:34 78 23 96 03/01/22 23:05 36.7 C 84 20 127/84 98 03/01/22 22:53 74 33 H 99 PG Care Time/CCT Total # of Minutes Spent Total Time Spent with Patient: Total time spent is greater than 50% in coordination of care (as documented) at patient's floor/unit and/or counseling patient: Coding Level of Care Code 39593 Initial Inpt Care Lvl 3 Diagnoses Lower GI bleed K92.2
[2022-03-02] MEDS: HYDROCORTISONE ACETATE 25 MG SUPP PR SCH ×2 (10:43→20:19)
[2022-03-02] MEDS: PANTOprazole 40 MG TAB PO SCH ×2 (10:43→20:28)
[2022-03-02] MEDS: PSYLLIUM 58.6% POWDER PACKET PO SCH (10:43)
[2022-03-02] MEDS ORDERED: PANTOprazole 40 MG in SYRINGE 0 ML IV SCH (11:00)
--- NOTE | 2022-03-02 13:06 | Hospitalist Progress Note ---
Date of Service March 02, 2022 Assessment & Plan (1) Lower GI bleed: Plan: Lower GI bleed/bright red blood per rectum- - Has had 2 BMs in the past 24 hours, both of which have been bloody - She does have a history of hemorrhoids, which have bled in the past Scant bleeding today GI consulted. Patient does not want a colonoscopy. Hemoglobin uptrending this morning Warfarin currently held, although patient is increased risk with a history of PE and malignancy since that time We will continue to hold warfarin, treat hemorrhoids with an anuU-Yonathan, and follow for improvement in bleeding. Empirically started on PPI therapy. If bleeding improves would favor slow resumption of warfarin without bridge due to patient's underlying risk. Denies history of A. fib. No plan for colonoscopy. Will advance diet Trend H&H (2) assisted (current) use of anticoagulants: Plan: - Hold warfarin due to lower GI bleeding On for history of unprovoked PE prior to cancer development per patient (3) 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, type 2: Plan: Hold metformin Continue glucose checks AC/at bedtime, SSI (4) Aortic stenosis: Plan: Monitor preload (5) Hyperlipidemia: Plan: Hold atorvastatin while n.p.o. (6) Myeloma: Plan: 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 (7) Plasmacytoma: Plan: See above (8) Pacemaker: (9) Sleep apnea: Plan: CPAP at bedtime as needed Admission and Anticipated Discharge Date Admission Date: March 01, 2022 Theo Patrick is seen at the bedside. She has had some bright red blood in her bowel movements, no melena, no dark blood. Note she does have a history of hemorrhoids. She is on warfarin for history of unprovoked PEs which was prior to her diagnosis of myeloma. Reports she would not want endoscopy regardless of what would be found, and notes she has had right leg bleeding with hemorrhoids in the past. Did see GI today, do not plan for colonoscopy at this time. Does have some epigastric tenderness and notes a history of GERD. Denies shortness of breath, difficulty breathing, lightheadedness, dizziness. Does have to use the bathroom Review of Systems Review of Systems: All systems reviewed & are unremarkable except as noted in Subjective Physical Exam Physical Exam: General: A&Ox3. NAD. Cooperative. HEENT: Atraumatic, normocephalic. Vision and hearing grossly intact Pulm: CTAB A&P. -wheezes, -rales, -rhonchi. Symmetrical chest rise. No increase in work of breathing. No respiratory distress. Cardiac: RRR, -mrg. Radial pulses intact and symmetrical. Abdominal: Epigastric tenderness, trace left flank tenderness. Abdomen nondistended, no guarding. Extremities: Warm, dry, sensation intact in hands and feet bilaterally. Able to ambulate independently. Results & Data Results & Data ([facility]) Vital Signs (Past 12 Hours) Vital Signs Temp Pulse Pulse Resp BP BP Pulse Ox 03/02/22 10:54 36.8 C 83 17 115/73 94 03/02/22 06:47 36.8 C 74 20 149/82 H 94 03/02/22 03:45 77 24 95 03/02/22 03:41 36.6 C 78 20 128/83 98 03/02/22 03:34 78 23 96 PG Care Time/CCT Total # of Minutes Spent Total Time Spent with Patient: Total time spent is greater than 50% in coordination of care (as documented) at patient's floor/unit and/or counseling patient: Coding Level of Care Code 40057 Subseq Hosp Care Lvl 3 Diagnoses Lower GI bleed K92.2 assisted (current) use of anticoagulants Z79.01 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, type 2 E11.9 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 terminal gauger insulin use: without jail use 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 complication status: without complication Aortic stenosis I35.0 Cardiac valve disease etiology: etiology unspecified Hyperlipidemia E78.5 Hyperlipidemia type: unspecified Myeloma C90.00 Multiple myeloma remission status: not in remission 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 Plasmacytoma active/remission status: not having achieved remission Pacemaker Z95.0 Sleep apnea G47.30 (1) 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, type 2 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 jail insulin use: without jail use 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 complication status: without complication Qualified Code(s): E11.9 - Type 2 diabetes mellitus without complications (2) Aortic stenosis Cardiac valve disease etiology: etiology unspecified Qualified Code(s): I35.0 - Nonrheumatic aortic (valve) stenosis (3) Hyperlipidemia Hyperlipidemia type: unspecified Qualified Code(s): E78.5 - Hyperlipidemia, unspecified (4) Myeloma Multiple myeloma remission status: not in remission Qualified Code(s): C90.00 - Multiple myeloma not having achieved remission (5) Plasmacytoma Plasmacytoma type: solitary plasmacytoma Plasmacytoma active/remission status: not having achieved remission Qualified Code(s): C90.30 - 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
[2022-03-02 14:33] LABS: Hematocrit (blood only) 29.8 % (37-47); Hemoglobin 9.5 g/dL (12.0-16.0)
[2022-03-02] MEDS: FAMOTIDINE 20 MG in SYRINGE 3 ML IV SCH (20:28)
[2022-03-03] MEDS: INSULIN ASPART PER UNIT SC SCH ×5 (00:16→20:40)
[2022-03-03 07:13] LABS: Basophils # (auto) 0.01 K/uL (0-0.2); Basophils % (auto) 0.3 %; Eosinophils # (auto) 0.13 K/uL (0-0.5); Eosinophils % (auto) 4.3 %; Hematocrit (blood only) 29.1 % (37-47); Hemoglobin 9.3 g/dL (12.0-16.0); Lymphocytes # (auto) 0.69 K/uL (1.2-3.4); Mean Corpuscular Hemoglobin 32.9 pg (25-34); Mean Corpuscular Volume 102.8 fL (80-100); Mean Platelet Volume 11.1 fL (7.4-10.4); Monocytes # (auto) 0.63 K/uL (0.11-0.59); Neutrophils # (auto) 1.54 K/uL (1.4-6.5); Neutrophils % (auto) 51.4 %; Platelet Count 140 K/uL (130-400); RDW Coefficient of Variation 15.9 % (11.5-14.5); RDW Standard Deviation 59.7 fL (36.4-46.3); Red Blood Count 2.83 M/uL (4.2-5.4)
[2022-03-03 07:23] LABS: BUN Creatinine Ratio 8.5 (10-20); Creatinine Clr Calc Pharmacy 69.6 ml/min; Est GFR (African American) 92.6 ml/min; Est GFR (Non-African American) 79.9 ml/min; Potassium 3.8 mmol/L (3.5-5.1)
--- NOTE | 2022-03-03 08:25 | Hospitalist Progress Note ---
Date of Service March 03, 2022 Assessment & Plan (1) Lower GI bleed: Plan: Lower GI bleed/bright red blood per rectum- - Has had 2 BMs in the past 24 hours, both of which have been bloody - She does have a history of hemorrhoids, which have bled in the past GI consulted. Patient did not want a colonoscopy. Hemoglobin stable, now bleeding has stopped Warfarin currently held, although patient is increased risk with a history of PE and malignancy since that time We will continue to hold warfarin, treat hemorrhoids with an anuU-Yonathan, and follow for improvement in bleeding. Empirically started on PPI therapy. If bleeding improves would favor slow resumption of warfarin without bridge due to patient's underlying risk. Denies history of A. fib. No plan for colonoscopy. - advance diet (2) correction (current) use of anticoagulants: Plan: - Held warfarin due to lower GI bleeding On for history of unprovoked PE prior to cancer development per patient (3) 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, type 2: Plan: Hold metformin Continue glucose checks AC/at bedtime, SSI (4) Aortic stenosis: Plan: Patient now is complaining of dyspnea we will repeat echocardiogram give 1 dose of furosemide on 03/03/2022 with a dose of potassium and see if this improves her symptoms. If her echocardiogram looks progressed we will reengage with cardiology as a in the outpatient setting were discussing catheterization and possible evaluation for TAVR (5) Hyperlipidemia: Plan: Hold atorvastatin while n.p.o. (6) Myeloma: Plan: 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 (7) Plasmacytoma: Plan: See above (8) Pacemaker: (9) Sleep apnea: Plan: CPAP at bedtime as needed Admission and Anticipated Discharge Date Admission Date: March 01, 2022 Subjective Biggest point for the patient currently is some shortness of breath. She does known to have aortic stenosis and is being worked up for a TAVR. She did have mild congestive change on admission chest x-ray. We will attempt some diuresis at this time. Her rectal bleeding or bright red blood per rectum has stopped. Her hemoglobin has been stable. We will see if we can improve her symptoms and if not may consider reengage in cardiology at this point time Review of Systems Review of Systems: Mild distress and exertional fatigue no headache, no visual changes no speech or swallowing issues no chest pain, pressure or palpitations Exertional shortness of breath, without cough or wheezes no abdominal pain, nausea or vomiting, diarrhea or constipation no dysuria, hematuria or frequency no focal joint pain or swelling no back pain, CVA tenderness or radicular pain no bruising, bleeding or rashes no focal signs of weakness or numbness or altered sensation no complaints of anxiety or depression.. Physical Exam Physical Exam: The patient appeared well nourished and normally developed. Vital signs as documented. Head exam is normocephalic atraumatic Neck is without JVD, thyromegaly, or carotid bruits. Lungs are clear to auscultation, no focal loss of breath sounds Cardiac exam, Rhythm is regular.. AARON, no rubs or gallops. Abdominal exam reveals normal bowel sounds, soft non tender, no masses Extremities are trace edematous and both pedal pulses are present Neurologic exam is alert and oriented, no focal loss of strength or sensation Skin is without bruises or rashes Psychologically is without concerns for anxiety or depression.. Results & Data Results & Data ([facility]) Vital Signs (Past 12 Hours) Vital Signs Temp Pulse Pulse Resp BP Pulse Ox 03/03/22 08:13 88 03/03/22 07:17 98.4 F 84 18 119/75 93 03/03/22 04:00 97.7 F 81 20 119/61 96 03/03/22 03:20 71 23 93 03/02/22 23:27 97.9 F 68 20 97/69 L 97 03/02/22 22:25 82 28 H 98 03/02/22 22:20 86 PG Care Time/CCT Total # of Minutes Spent Total Time Spent with Patient: Total time spent is greater than 50% in coordination of care (as documented) at patient's floor/unit and/or counseling patient: Coding Level of Care Code 51154 Subseq Hosp Care Lvl 2 Diagnoses Lower GI bleed K92.2 correction (current) use of anticoagulants Z79.01 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, type 2 E11.9 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 complication status: without complication 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 ad terminal makeup operator insulin use: without ad terminal makeup operator use Aortic stenosis I35.0 Cardiac valve disease etiology: etiology unspecified Hyperlipidemia E78.5 Hyperlipidemia type: unspecified Myeloma C90.00 Multiple myeloma remission status: not in remission Plasmacytoma C90.30 Plasmacytoma active/remission status: not having achieved remission Plasmacytoma type: solitary plasmacytoma Pacemaker Z95.0 Sleep apnea G47.30 (1) 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, type 2 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 complication status: without complication 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 ad terminal makeup operator insulin use: without ad terminal makeup operator use Qualified Code(s): E11.9 - Type 2 diabetes mellitus without complications (2) Plasmacytoma Plasmacytoma active/remission status: not having achieved remission P lasmacytoma type: solitary plasmacytoma Qualified Code(s): C90.30 - 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 (3) Aortic stenosis Cardiac valve disease etiology: etiology unspecified Qualified Code(s): I35.0 - Nonrheumatic aortic (valve) stenosis (4) Hyperlipidemia Hyperlipidemia type: unspecified Qualified Code(s): E78.5 - Hyperlipidemia, unspecified (5) Myeloma Multiple myeloma remission status: not in remission Qualified Code(s): C90.00 - Multiple myeloma not having achieved remission
[2022-03-03] MEDS: PSYLLIUM 58.6% POWDER PACKET PO SCH (08:44)
[2022-03-03] MEDS: PANTOprazole 40 MG TAB PO SCH ×2 (08:44→20:04)
[2022-03-03] MEDS: FAMOTIDINE 20 MG in SYRINGE 3 ML IV SCH ×2 (08:50→20:07)
[2022-03-03] MEDS: HYDROCORTISONE ACETATE 25 MG SUPP PR SCH ×2 (08:50→20:07)
[2022-03-03] MEDS ORDERED: POTASSIUM CHLORIDE CRTAB 20 MEQ TABCR PO STA (17:05)
[2022-03-03] MEDS ORDERED: FUROSEMIDE 40 MG/4 ML VIAL IV ONE (17:05)
[2022-03-03] MEDS ORDERED: BUDESONIDE/FORMOTEROL FUMARATE 160/4.5 60 PUFFS/INHALER INH SCH (21:00)
--- NOTE | 2022-03-04 08:33 | Hospitalist Progress Note ---
Date of Service March 04, 2022 Assessment & Plan (1) Lower GI bleed: Plan: Lower GI bleed/bright red blood per rectum-resolved - She does have a history of hemorrhoids, which have bled in the past GI consulted. Patient did not want a colonoscopy. Hemoglobin stable, now bleeding has stopped Warfarin currently held, although patient is increased risk with a history of PE and malignancy since that time We will continue to hold warfarin, treat hemorrhoids with an anuU-Yonathan, and follow for improvement in bleeding. Empirically started on PPI therapy. If bleeding improves would favor slow resumption of warfarin without bridge due to patient's underlying risk. Denies history of A. fib. No plan for colonoscopy. - advance diet (2) senior living (current) use of anticoagulants: Plan: - Held warfarin due to lower GI bleeding On for history of unprovoked PE prior to cancer development per patient (3) 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, type 2: Plan: Hold metformin Continue glucose checks AC/at bedtime, SSI (4) Aortic stenosis: Plan: Patient now is complaining of dyspnea repeat echocardiogram, with severe , did give 1 dose of furosemide on 03/03/2022 with a dose of potassium may need daily diuretic for HFpEF due to valvular heart disease for heart cath 03/05/22 to eval coronary anatomy with new dyspnea and occasional CP Cr is favorable (5) Hyperlipidemia: Plan: resume atorvastatin after discharge (6) Myeloma: Plan: 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 (7) Plasmacytoma: Plan: See above (8) Pacemaker: (9) Sleep apnea: Plan: CPAP at bedtime as needed Admission and Anticipated Discharge Date Admission Date: March 01, 2022 Subjective pt with progressive sob and some othorpnea, this coupled with the pulmonary edema on the admitting cxr suggests that her is progressing Review of Systems Review of Systems: Mild distress and exertional fatigue no headache, no visual changes no speech or swallowing issues intermittent and relieved chest pain, pressure or palpitations Exertional shortness of breath, without cough or wheezes no abdominal pain, nausea or vomiting, diarrhea or constipation no dysuria, hematuria or frequency no focal joint pain or swelling no back pain, CVA tenderness or radicular pain no bruising, bleeding or rashes no focal signs of weakness or numbness or altered sensation no complaints of anxiety or depression.. Physical Exam Physical Exam: The patient appeared well nourished and normally developed. Vital signs as documented. Head exam is normocephalic atraumatic Neck is without JVD, thyromegaly, or carotid bruits. Lungs are clear to auscultation, no focal loss of breath sounds Cardiac exam, Rhythm is regular.. AARON, no rubs or gallops. Abdominal exam reveals normal bowel sounds, soft non tender, no masses Extremities are trace edematous and both pedal pulses are present Neurologic exam is alert and oriented, no focal loss of strength or sensation Skin is without bruises or rashes Psychologically is without concerns for anxiety or depression.. Results & Data Results & Data ([facility]) Vital Signs (Past 12 Hours) Vital Signs Temp Pulse Pulse Resp BP Pulse Ox 03/04/22 06:39 98.1 F 91 H 20 135/82 92 03/04/22 06:14 89 03/04/22 03:46 72 21 97 03/04/22 03:07 98.1 F 72 20 140/85 97 03/04/22 00:19 83 03/03/22 23:05 98.1 F 81 20 100/65 97 03/03/22 21:38 86 34 H 94 PG Care Time/CCT Total # of Minutes Spent Total Time Spent with Patient: Total time spent is greater than 50% in coordination of care (as documented) at patient's floor/unit and/or counseling patient: Coding Level of Care Code 68563 Subseq Hosp Care Lvl 3 Diagnoses Lower GI bleed K92.2 auto 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 (current) use of anticoagulants Z79.01 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, type 2 E11.9 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 complication status: without complication 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 head of music insulin use: without head of music use Aortic stenosis I35.0 Cardiac valve disease etiology: etiology unspecified Hyperlipidemia E78.5 Hyperlipidemia type: unspecified Myeloma C90.00 Multiple myeloma remission status: not in remission Plasmacytoma C90.30 Plasmacytoma active/remission status: not having achieved remission Plasmacytoma type: solitary plasmacytoma Pacemaker Z95.0 Sleep apnea G47.30 (1) 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, type 2 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 complication status: without complication 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 care home insulin use: without care home use Qualified Code(s): E11.9 - Type 2 diabetes mellitus without complications (2) Plasmacytoma Plasmacytoma active/remission status: not having achieved remission Plasmacytoma type: solitary plasmacytoma Qualified Code(s): C90.30 - 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 (3) Aortic stenosis Cardiac valve disease etiology: etiology unspecified Qualified Code(s): I35.0 - Nonrheumatic aortic (valve) stenosis (4) Hyperlipidemia Hyperlipidemia type: unspecified Qualified Code(s): E78.5 - Hyperlipidemia, unspecified (5) Myeloma Multiple myeloma remission status: not in remission Qualified Code(s): C90.00 - Multiple myeloma not having achieved remission
[2022-03-04] MEDS: PSYLLIUM 58.6% POWDER PACKET PO SCH ×2 (08:41→08:46)
[2022-03-04] MEDS: PANTOprazole 40 MG TAB PO SCH ×2 (08:41→20:47)
[2022-03-04] MEDS: FAMOTIDINE 20 MG in SYRINGE 3 ML IV SCH ×2 (08:41→20:49)
[2022-03-04] MEDS: INSULIN ASPART PER UNIT SC SCH ×4 (08:42→20:48)
[2022-03-04 08:52] LABS: Hemoglobin 9.7 g/dL (12.0-16.0); Mean Corpuscular Hemoglobin 32.4 pg (25-34); Mean Corpuscular Hgb Conc 31.3 g/dL (32-36); Mean Corpuscular Volume 103.7 fL (80-100); Mean Platelet Volume 10.6 fL (7.4-10.4); Platelet Count 179 K/uL (130-400); RDW Coefficient of Variation 15.9 % (11.5-14.5); RDW Standard Deviation 61.2 fL (36.4-46.3); Red Blood Count 2.99 M/uL (4.2-5.4); White Blood Count 4.83 K/uL (4.8-10.8)
[2022-03-04 09:27] LABS: Calcium 8.4 mg/dl (8.5-10.1); Creatinine Clr Calc Pharmacy 57.4 ml/min; Est GFR (African American) 73.4 ml/min; Est GFR (Non-African American) 63.4 ml/min; Potassium 3.5 mmol/L (3.5-5.1)
--- NOTE | 2022-03-04 11:13 | XCELERA ---
[id number] \\[id number]_[id number]
[2022-03-04] MEDS: HYDROCORTISONE ACETATE 25 MG SUPP PR SCH ×2 (12:30→20:49)
--- NOTE | 2022-03-04 18:32 | Hospitalist Progress Note ---
Date of Service March 04, 2022 Assessment & Plan (1) Lower GI bleed: Plan: Lower GI bleed/bright red blood per rectum-resolved - She does have a history of hemorrhoids, which have bled in the past GI consulted. Patient did not want a colonoscopy. Hemoglobin stable, now bleeding has stopped Warfarin currently held, although patient is increased risk with a history of PE and malignancy since that time We will continue to hold warfarin, treat hemorrhoids with an anuU-Yonathan, and follow for improvement in bleeding. Empirically started on PPI therapy. If bleeding improves would favor slow resumption of warfarin without bridge due to patient's underlying risk. Denies history of A. fib. No plan for colonoscopy. 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 development per patient (3) 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, type 2: Plan: Hold metformin Continue glucose checks AC/at bedtime, SSI (4) Aortic stenosis: Plan: Patient now is complaining of dyspnea repeat echocardiogram, with severe , did give 1 dose of furosemide on 03/03/2022 with a dose of potassium may need daily diuretic for HFpEF due to valvular heart disease for heart cath 03/05/22 to eval coronary anatomy with new dyspnea and occasional CP Cr is favorable (5) Hyperlipidemia: Plan: resume atorvastatin after discharge (6) Myeloma: Plan: 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 Patient is antineoplastic induced pancytopenia on presentation with recovery (7) Plasmacytoma: Plan: See above (8) Pacemaker: (9) Sleep apnea: Plan: CPAP at bedtime as needed Admission and Anticipated Discharge Date Admission Date: March 01, 2022 Results & Data Results & Data ([facility]) Vital Signs (Past 12 Hours) Vital Signs Temp Pulse Pulse Resp BP Pulse Ox 03/04/22 15:18 98.4 F 85 18 116/68 94 03/04/22 14:22 87 03/04/22 11:06 98.1 F 80 18 137/75 94 03/04/22 06:39 98.1 F 91 H 20 135/82 92 PG Care Time/CCT Total # of Minutes Spent Total Time Spent with Patient: Total time spent is greater than 50% in coordination of care (as documented) at patient's floor/unit and/or counseling patient: Coding Level of Care Code None Diagnoses Lower GI bleed K92.2 [facility] (current) use of anticoagulants Z79.01 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, type 2 E11.9 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 use: without jail use 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 complication status: without complication Aortic stenosis I35.0 Cardiac valve disease etiology: etiology unspecified Hyperlipidemia E78.5 Hyperlipidemia type: unspecified Myeloma C90.00 Multiple myeloma remission status: not in remission 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 Plasmacytoma active/remission status: not having achieved remission Pacemaker Z95.0 Sleep apnea G47.30 (1) 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, type 2 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 use: without longwall shearer operator use 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 complication status: without complication Qualified Code(s): E11.9 - Type 2 diabetes mellitus without complications (2) Aortic stenosis Cardiac valve disease etiology: etiology unspecified Qualified Code(s): I35.0 - Nonrheumatic aortic (valve) stenosis (3) Hyperlipidemia Hyperlipidemia type: unspecified Qualified Code(s): E78.5 - Hyperlipidemia, unspecified (4) Myeloma Multiple myeloma remission status: not in remission Qualified Code(s): C90.00 - Multiple myeloma not having achieved remission (5) Plasmacytoma Plasmacytoma type: solitary plasmacytoma Plasmacytoma active/remission status: not having achieved remission Qualified Code(s): C90.30 - 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
[2022-03-05] MEDS: FAMOTIDINE 20 MG in SYRINGE 3 ML IV SCH ×2 (07:44→20:14)
[2022-03-05] MEDS: INSULIN ASPART PER UNIT SC SCH ×4 (07:46→20:26)
[2022-03-05] MEDS: HYDROCORTISONE ACETATE 25 MG SUPP PR SCH ×2 (07:47→20:10)
[2022-03-05] MEDS ORDERED: niCARdipine HCL INJ 2.5 MG/ML 10 ML AMP ONE (08:34)
[2022-03-05] MEDS ORDERED: HEPARIN (PORCINE) 1000 UNIT/ML 10 ML (CATH LAB USE ONLY) ONE (08:34)
[2022-03-05] MEDS ORDERED: MIDAZOLAM HCL 1 MG/ML 2ML VIAL ONE (08:34)
[2022-03-05] MEDS ORDERED: fentaNYL citrate 100 MCG/2 ML VIAL ONE (08:35)
[2022-03-05] MEDS ORDERED: NITROGLYCERIN/D5W 100MCG/ML 20ML SYR ONE (08:35)
--- NOTE | 2022-03-05 08:57 | Pre Anesthesia Assessment ---
Date of Service March 05, 2022 Pre Sedation Assessment Vital Signs Temp Pulse Pulse Resp BP Pulse Ox 03/05/22 08:51 84 16 105/56 L 96 03/05/22 06:41 36.8 C 74 20 111/69 91 03/05/22 06:05 79 03/05/22 03:35 76 16 94 03/05/22 02:38 36.7 C 78 20 125/78 98 03/04/22 22:38 36.7 C 79 20 129/89 95 03/04/22 22:32 70 15 94 03/04/22 22:17 75 03/04/22 18:39 36.8 C 93 H 20 141/78 H 90 03/04/22 15:18 36.9 C 85 18 116/68 94 03/04/22 14:22 87 03/04/22 11:06 36.7 C 80 18 137/75 94 Cardiovascular + regular rate and + regular rhythm Respiratory + respiratory effort normal Pre-Sedation Airway Assessment Smoking Status: Never smoker Hx Sleep Apnea: Yes Hx Difficult Intubation: No Short, Thick Neck: Yes Thyromental Distance: > or= 3.5 Finger Breadths Oral Cavity: + Dentures Mallampati Class: III ASA: ASA3 NPO Status Date of Last Intake of Fluids: 03/04/22 Date of Last Intake of Solid Food: 03/04/22 Procedure Planning Contraindications for Sedation: none Current Medications Reviewed: Yes Notes The planned sedation has been discussed with the patient. Informed Consent was obtained. I have identified the patient, determined the appropriateness of sedation and have assessed the patient immediately prior to the procedure. All medicine(s) and interventions are by my order.
[2022-03-05 09:12] LABS: Hematocrit (blood only) 30.9 % (37-47); Hemoglobin 9.9 g/dL (12.0-16.0); Mean Corpuscular Hemoglobin 33.1 pg (25-34); Mean Corpuscular Volume 103.3 fL (80-100); Mean Platelet Volume 10.4 fL (7.4-10.4); Platelet Count 189 K/uL (130-400); RDW Coefficient of Variation 16.1 % (11.5-14.5); RDW Standard Deviation 60.5 fL (36.4-46.3); Red Blood Count 2.99 M/uL (4.2-5.4); White Blood Count 3.05 K/uL (4.8-10.8)
[2022-03-05 09:23] LABS: INR 1.2 (0.9-1.1); Prothrombin Time 12.6 Seconds (9.0-12.0)
[2022-03-05 09:32] LABS: BUN Creatinine Ratio 8.6 (10-20); Calcium 8.7 mg/dl (8.5-10.1); Creatinine Clr Calc Pharmacy 52.4 ml/min; Est GFR (African American) 66.8 ml/min; Est GFR (Non-African American) 57.6 ml/min
--- NOTE | 2022-03-05 10:28 | Cardiac Catheterization ---
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 Clinical evaluation leading to the procedure CAD Presenation: Sx unlikely to be ischemic Diagnostic Physicians Name: Ugo Bethea MD Closure Device Recommendations: Valve Replacement Cardiac Cath Procedure Full Procedure Date March 05, 2022 Pre-Procedure Diagnosis Pre-Procedure Diagnosis: Valvular Disease AUC Score AUC Score: 7 Post-Procedure Diagnosis Post-Procedure Diagnosis: Moderate CAD Procedure(s) Performed Procedure(s) Performed: Coronary Angiography Crystalizer Ugo Bethea MD Tax Assessor(s) none Estimated Blood Loss Estimated Blood Loss: 13cc Medication(s) Medication(s): Fentanyl, Lidocaine 1% and Versed Summary of Findings Procedure performed: Coronary angiography Staff lead sharepoint developer: Ugo Bethea MD Indication: The patient is an 81-year-old woman with a history of severe aortic stenosis. She was 5 to undergo coronary angiography in order to be evaluated for TAVR. Procedure in detail: The patient was informed of the risks benefits and alternatives to the intended procedure, he understood such and wished to proceed. He was taken to the cardiac catheterization suite in a fasting state. Conscious sedation was administered per protocol and the patient was monitored electrocardiographically throughout today's procedure. The left wrist area was prepped and draped in usual sterile fashion. This area was anesthetized using subcutaneous administration of a lidocaine solution. Initial attempts to pass a wire through the left radial artery were unsuccessful. The right radial area was subsequently prepped and draped in usual sterile fashion. Both the right radial artery and right ulnar artery were easily cannulated, but failed to accommodate passage of a guidewire. At this point attention was turned to the right femoral area which had previously been prepped and draped in usual sterile fashion. The right femoral artery was subsequently accessed using modified Seldinger technique and a 5 Samoan arterial sheath was placed at this site over a guidewire. The sheath was used facilitate coronary angiography in multiple orthogonal views prior to removal. At the conclusion of the procedure the sheath was removed and hemostasis was achieved at the access site using manual pressure. The patient tolerated procedure well, there were no immediate complications. Equipment used: 5 Samoan JL4 and 5 Samoan JR4 Findings: Coronary angiography Left main: Left main was normal in size and caliber and bifurcated normally into left anterior descending left circumflex arteries. There is some mild tapering prior to the bifurcation. No other significant disease. Left anterior descending: Left anterior descending was a transapical vessel. It produced a large 1st diagonal and a branching 2nd diagonal. There were some luminal regularities in perhaps 30% tapering prior to the takeoff of the 1st diagonal. No obstructive disease Left circumflex: Left circumflex was a codominant vessel. It produced a large branching OM1 system and a large ongoing left-sided PDA. There were some luminal regularities and perhaps 30% stenosis prior to the bifurcation of OM1 and the ongoing AV groove vessel. No obstructive lesions. Right coronary artery: Right coronary artery was a codominant vessel. It produced a small PDA. There was a complex lesion in the mid right coronary artery which compromised the lumen approximately 70%. No other obstructive disease. Impression: Co dominant coronary system Moderate coronary disease involving the mid right coronary Hemodynamics Rest Ao:: 116/64 mm of mercury Final Ao: 103/57 mm of mercury LV: n/a Recommendations Recommendations: Valve Replacement Specimens Specimens: None Radiation Exposure (mGy) x Contrast (mls) 45 Procedural Complication(s) None Disposition PCU I attest to the content of the Intraoperative Record and any orders documented therein. Any exceptions are noted below. [facility] Card Cath Procedure Codes Cardiac Catheterization Procedure 1: Cardiovascular Cath Procedures: 94370 Coronaries Moderate Sedation Procedure 1: Sedation/Anesthesia: 98684 Mod Sedation by the same physician;Init15 Min Child Age 5 & Up Procedure 2: Sedation/Anesthesia: 89070 Mod Sedation by the same physician; Ea [id number] Minutes PG Care Time/CCT Total # of Minutes Spent Total Time Spent with Patient: Total time spent is greater than 50% in coordination of care (as documented) at patient's floor/unit and/or counseling patient:
--- NOTE | 2022-03-05 10:28 | Post Anesthesia Assessment ---
Date of Service March 05, 2022 Post Sedation Assessment Vital Signs Temp Pulse Pulse Resp BP Pulse Ox 03/05/22 08:51 84 16 105/56 L 96 03/05/22 06:41 36.8 C 74 20 111/69 91 03/05/22 06:05 79 03/05/22 03:35 76 16 94 03/05/22 02:38 36.7 C 78 20 125/78 98 03/04/22 22:38 36.7 C 79 20 129/89 95 03/04/22 22:32 70 15 94 03/04/22 22:17 75 03/04/22 18:39 36.8 C 93 H 20 141/78 H 90 03/04/22 15:18 36.9 C 85 18 116/68 94 03/04/22 14:22 87 03/04/22 11:06 36.7 C 80 18 137/75 94 Recovery Score Activity: Moves 4 extremities Respiration: Deep Breath/Cough Circulation: +/-20% PreAnes Value Consciousness: Fully Awake Oxygen Saturation: > 92% On Room Air Discharge Sedation Level of Care: Fast Track Phase II Post Sedation Plan On clinical assessment, the patient appears to have tolerated the sedation without complications. Patient is recovering as anticipated. Patient will continue to be monitored by nursing and may be discharged when sedation discharge criteria are met per below protocol. Upon Completions of procedure up to 15 minutes continue every 5 minute vital signs and the P.A.R. score; then discharge to a Phase I or Fast Track to Phase II per the following guidelines: * Discharge Patient to appropriate Phase II area if PAR is 8 or greater or return to pre- procedure baseline. The post - procedure orders will be as directed. * If PAR score is less than 8 or not return to pre-procedure baseline then patient will follow Phase I monitoring till PAR is reached for Phase II. The Phase I may be done in procedure room or may call to secure a Phase I area. * If naloxone or flumazenil are used for reversal, hold in Phase I for continued monitoring from when last reversal dose was given for a minimum of 60 minutes or longer pending the nurse and/or physician discretion of patient condition before discharge to Phase II. Please call the Sedation Physician to re-evaluate and complete post-note for discharge to Phase II area. Do NOT discharge from procedure sedation or Phase 1 until post- sedation evaluation note is complete by procedure /sedation MD Sedation Discharge Instructions to be given to the patient at discharge to home.
[2022-03-05] MEDS: PSYLLIUM 58.6% POWDER PACKET PO SCH (11:43)
[2022-03-05] MEDS: PANTOprazole 40 MG TAB PO SCH ×2 (11:43→20:09)
--- NOTE | 2022-03-05 16:34 | Cardiology Progress Note ---
Date of Service March 05, 2022 Assessment & Plan (1) Aortic stenosis: Plan: The patient underwent successful coronary angiography earlier today. No evident complication. There was difficulty passing any equipment through the radial arteries due to tortuosity and possible narrowing. Access was obtained in the right femoral artery. Hemostasis was achieved with manual pressure subsequent to the procedure. No evident complication. She should be ambulatory this afternoon. Provided there is no obvious bleeding or access site issues she could safely be discharged with instructions to refrain from lifting anything greater than 10 lb or strenuous activity for 1 week. If she is felt to be safe for re-initiation of anticoagulation, there is no contraindications subsequent to her procedure. I will send her films to [facility] at her request and ask our clinic staff to arrange for an evaluation by their Interventional Cardiology Service. Admission and Anticipated Discharge Date Admission Date: March 01, 2022 Subjective I saw the patient subsequent to her cardiac catheterization earlier this morning. She appeared comfortable. No pain at the access sites. Physical Exam Physical Exam: Patient is comfortable. Alert and oriented answer all questions appropriately Right groin access site free of hematoma or bleeding. Results & Data ([facility]) Vital Signs (Past 12 Hours) Vital Signs Temp Pulse Pulse Resp BP Pulse Ox 03/05/22 15:40 36.5 C 93 H 18 129/84 96 03/05/22 14:40 36.6 C 88 20 137/79 94 03/05/22 14:00 36.6 C 92 H 20 142/71 H 94 03/05/22 12:40 36.6 C 76 20 98/60 L 94 03/05/22 12:27 82 03/05/22 12:10 36.6 C 80 20 112/71 96 03/05/22 11:40 36.5 C 81 20 120/70 97 03/05/22 11:25 36.7 C 78 20 139/81 03/05/22 11:10 36.7 C 79 20 117/76 94 03/05/22 10:55 80 17 100/59 L 95 03/05/22 10:44 82 17 113/66 100 03/05/22 08:51 84 16 105/56 L 96 03/05/22 06:41 36.8 C 74 20 111/69 91 03/05/22 06:05 79 (1) Aortic stenosis Cardiac valve disease etiology: etiology unspecified Qualified Code(s): I35.0 - Nonrheumatic aortic (valve) stenosis
--- NOTE | 2022-03-05 17:40 | Hospitalist Progress Note ---
Date of Service March 05, 2022 Assessment & Plan (1) Aortic stenosis: Plan: Patient now is complaining of dyspnea, repeat echocardiogram, with severe , may need daily diuretic for HFpEF due to valvular heart disease heart cath 03/05/22 Co dominant coronary system Moderate coronary disease involving the mid right coronary, no intervention required, referral for elective TAVR pt will be d/c when recovered restart AC and low dose lasix (2) Lower GI bleed: Plan: Lower GI bleed/bright red blood per rectum-resolved - She does have a history of hemorrhoids, which have bled in the past GI consulted. Patient did not want a colonoscopy. Hemoglobin stable, now bleeding has stopped Warfarin currently held, although patient is increased risk with a history of PE and malignancy since that time We will continue to hold warfarin, treat hemorrhoids with an anuU-Yonathan, and follow for improvement in bleeding. Empirically started on PPI therapy. If bleeding improves would favor slow resumption of warfarin without bridge due to patient's underlying risk. Denies history of A. fib. No plan for colonoscopy. - advance diet (3) group home (current) use of anticoagulants: Plan: - Held warfarin due to lower GI bleeding On for history of unprovoked PE prior to cancer development per patient, restart 03/05/22 (4) 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, type 2: Plan: Hold metformin Continue glucose checks AC/at bedtime, SSI (5) Hyperlipidemia: Plan: resume atorvastatin after discharge (6) Myeloma: Plan: 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 Patient is antineoplastic induced pancytopenia on presentation with recovery (7) Plasmacytoma: Plan: See above (8) Pacemaker: (9) Sleep apnea: Plan: CPAP at bedtime as needed Admission and Anticipated Discharge Date Admission Date: March 01, 2022 Subjective I saw the patient subsequent to her cardiac catheterization earlier this morning. She appeared comfortable. No pain at the access sites. no bleeding, was a femoral artery appoach so will need to move and walk before discharge Review of Systems Review of Systems: Mild distress and exertional fatigue no headache, no visual changes no speech or swallowing issues intermittent and relieved chest pain, pressure or palpitations Exertional shortness of breath, without cough or wheezes no abdominal pain, nausea or vomiting, diarrhea or constipation no dysuria, hematuria or frequency no focal joint pain or swelling no back pain, CVA tenderness or radicular pain no bruising, bleeding at cath access sites no focal signs of weakness or numbness or altered sensation no complaints of anxiety or depression.. Physical Exam Physical Exam: The patient appeared well nourished and normally developed. Vital signs as documented. Head exam is normocephalic atraumatic Neck is without JVD, thyromegaly, or carotid bruits. Lungs are clear to auscultation, no focal loss of breath sounds Cardiac exam, Rhythm is regular.. AARON, no rubs or gallops. Abdominal exam reveals normal bowel sounds, soft non tender, no masses Extremities are trace edematous and both pedal pulses are present Neurologic exam is alert and oriented, no focal loss of strength or sensation Skin is without bruises or rashes Psychologically is without concerns for anxiety or depression.. Results & Data Results & Data ([facility]) Vital Signs (Past 12 Hours) Vital Signs Temp Pulse Pulse Resp BP Pulse Ox 03/05/22 16:00 94 H 03/05/22 15:40 97.7 F 93 H 18 129/84 96 03/05/22 14:40 97.9 F 88 20 137/79 94 03/05/22 14:00 97.9 F 92 H 20 142/71 H 94 03/05/22 12:40 97.9 F 76 20 98/60 L 94 03/05/22 12:27 82 03/05/22 12:10 97.9 F 80 20 112/71 96 03/05/22 11:40 97.7 F 81 20 120/70 97 03/05/22 11:25 98.1 F 78 20 139/81 03/05/22 11:10 98.1 F 79 20 117/76 94 03/05/22 10:55 80 17 100/59 L 95 03/05/22 10:44 82 17 113/66 100 03/05/22 08:51 84 16 105/56 L 96 03/05/22 06:41 98.2 F 74 20 111/69 91 03/05/22 06:05 79 PG Care Time/CCT Total # of Minutes Spent Total Time Spent with Patient: Total time spent is greater than 50% in coordination of care (as documented) at patient's floor/unit and/or counseling patient: Coding Level of Care Code 62256 Subseq Hosp Care Lvl 2 Diagnoses Lower GI bleed K92.2 group home (current) use of anticoagulants Z79.01 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, type 2 E11.9 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 alf insulin use: without career development director use 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 complication status: without complication Aortic stenosis I35.0 Cardiac valve disease etiology: etiology unspecified Hyperlipidemia E78.5 Hyperlipidemia type: unspecified Myeloma C90.00 Multiple myeloma remission status: not in remission 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 Plasmacytoma active/remission status: not having achieved remission Pacemaker Z95.0 Sleep apnea G47.30 (1) 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, type 2 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 alf insulin use: without career development director use 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 complication status: without complication Qualified Code(s): E11.9 - Type 2 diabetes mellitus without complications (2) Aortic stenosis Cardiac valve disease etiology: etiology unspecified Qualified Code(s): I35.0 - Nonrheumatic aortic (valve) stenosis (3) Hyperlipidemia Hyperlipidemia type: unspecified Qualified Code(s): E78.5 - Hyperlipidemia, unspecified (4) Myeloma Multiple myeloma remission status: not in remission Qualified Code(s): C90.00 - Multiple myeloma not having achieved remission (5) Plasmacytoma Plasmacytoma type: solitary plasmacytoma Plasmacytoma active/remission status: not having achieved remission Qualified Code(s): C90.30 - 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
[2022-03-05] MEDS ORDERED: WARFARIN SOD 2 MG TAB PO SCH (17:45)
[2022-03-06 06:11] LABS: INR 1.1 (0.9-1.1); Prothrombin Time 11.9 Seconds (9.0-12.0)
[2022-03-06 06:18] LABS: BUN Creatinine Ratio 11.5 (10-20); Calcium 8.7 mg/dl (8.5-10.1); Creatinine Clr Calc Pharmacy 50.7 ml/min; Est GFR (African American) 64.3 ml/min; Est GFR (Non-African American) 55.5 ml/min; Potassium 3.9 mmol/L (3.5-5.1)
[2022-03-06] MEDS: HYDROCORTISONE ACETATE 25 MG SUPP PR SCH (07:53)
[2022-03-06] MEDS: PSYLLIUM 58.6% POWDER PACKET PO SCH (07:53)
[2022-03-06] MEDS: PANTOprazole 40 MG TAB PO SCH (07:54)
[2022-03-06] MEDS: INSULIN ASPART PER UNIT SC SCH ×2 (07:55→11:40)
[2022-03-06] MEDS: FAMOTIDINE 20 MG in SYRINGE 3 ML IV SCH (07:59)
[2022-03-06] MEDS ORDERED: FUROSEMIDE 20 MG TAB PO SCH (09:00)
[2022-03-06 11:42] VITALS: BP 108/60; PULSE 85; O2SAT 93
[2022-03-06 12:51] VITALS: TEMP 98.6
--- NOTE | 2022-03-06 13:11 | Discharge Summary ---
Date of Service March 06, 2022 Admission HPI Per Admitting Provider The patient is an 81-year-old female with a past medical history including myeloma on chemotherapy, lumbar radiculopathy, morbid obesity, depression, hyperlipidemia, COVID-19 pneumonia, aortic stenosis, sleep apnea, diabetes mellitus type 2, endometrial intraepithelial neoplasia, complete heart block, status post pacer, pyelonephritis, plasmacytoma, and long-term use of anticoagulants. The patient notes with the assistance of her son who was in the room, that she has had loose bowel movements every day, and after which she takes Imodium. This has been going on for several months. Yesterday and today the first day she has had bloody bowel movements. She has chronic generalized abdominal pain, and has noted increased abdominal distention. She questions as to whether her cancer medication may be causing her symptoms. She denies any use of anti-inflammatories such as Advil, Motrin, Aleve. Principal Diagnosis anemia lower gi bleed self limited from hemorrhoidal bleeding progressive hfpef from severe aortic stenosis Discharge Exam The patient appeared well Vital signs as documented. Lungs are clear to auscultation and appear unlabored Cardiac exam, Rhythm is regular.. Systolic ejection murmur Abdominal exam reveals normal bowel sounds, soft non tender, no masses Extremities are nonedematous and both pedal pulses are normal. Neurologic exam is alert and oriented, no focal loss of strength or sensation Skin is without bruises or rashes Psychologically is without concerns for anxiety or depression. Discharge Data Allergies Allergy/AdvReac Type Severity Reaction Status Date / Time adhesive tape AdvReac Mild Skin rash Verified 03/01/22 14:13 Consultations 03/01/22 15:13 ED Decision to Admit Stat 03/01/22 19:48 Consult Gastroenterology Routine Procedures Performed Operation Date: 03/05/22 09:00 Actual Procedures s Cineradiography w/Routine Exam - Ugo Bethea MD p Cath, Coronaries ONLY (no LV) - Ugo Bethea MD s Ultrasound Vascular Access - Ugo Bethea MD Ordered Studies 03/01/22 15:13 CT abd pelvis IV con only Stat 03/05/22 06:35 CL Cath Imgs for PACS use only Stat Hospital Course (1) Aortic stenosis: Patient now is complaining of worsening dyspnea, repeat echocardiogram, with severe , need daily diuretic for HFpEF due to valvular heart disease heart cath 03/05/22 Co dominant coronary system Moderate coronary disease involving the mid right coronary, no intervention required, referral for elective TAVR pt will be d/c when recovered restart AC and low dose lasix (2) Lower GI bleed: Lower GI bleed/bright red blood per rectum-resolved - She does have a history of hemorrhoids, which have bled in the past GI consulted. Patient did not want a colonoscopy. Hemoglobin stable, now bleeding has stopped Warfarin currently held, although patient is increased risk with a history of PE and malignancy since that time We will continue to hold warfarin, treat hemorrhoids with an anuU-Yonathan, and follow for improvement in bleeding. Empirically started on PPI therapy. If bleeding improves would favor slow resumption of warfarin without bridge due to patient's underlying risk. Denies history of A. fib. Tolerated advancing diet (3) jail (current) use of anticoagulants: - Held warfarin due to lower GI bleeding On for history of unprovoked PE prior to cancer development per patient, restart 03/05/22 (4) 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, type 2: Doing home diabetic regimen (5) Hyperlipidemia: resume atorvastatin after discharge (6) Myeloma: 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 Patient is antineoplastic induced pancytopenia on presentation with recovery To discuss with Dr. Allen whether to continue or medications surrounding her possible valve replacement surgery (7) Plasmacytoma: See above (8) Pacemaker: (9) Sleep apnea: CPAP at bedtime as needed Patient was complaining of some loose bowel movements prior to going home. We did order a stool PCR and will encourage her to use Metamucil at home Total Time Total Time Spent Total Time Spent (In Minutes): It required greater than 30 minutes to prepare this patient for discharge Discharge Plan Discharge Items Patient Disposition: Home - Self-Care Reason For Visit: LOWER GI BLEED, ANEMIA Discharge Diagnosis: anemia lower gi bleed self limited progressive hfpef from severe aortic stenosis Activity: Per Instructions section Activity Comment: limit intentional exercise Non-emergency contact: Primary Care Provider and Area Cleaner Call non-emergency contact if: your symptoms worsen Follow-up/Referrals: Kulwinder Byers MD [Primary Care Provider] - Ugo Bethea MD [Family Provider] - Jorge Allen MD [Surgeon] - Diet: Low Sodium (2gm) Sal Attending Provider Instructions: Call 911 and go to the Emergency Room if: * You have tightness or pain in your chest that does not go away with rest or Nitroglycerin * You are very short of breath even with rest Call your doctor if any of the following symptoms or problems start or get worse: * Shortness of breath or difficulty breathing * Wake up at night short of breath * Chest pain * Cough * Swelling of your hands, fee, or legs * More fatigued or tired with your normal activity * Palpitations - sudden fast heart beats WEIGHT * Weigh yourself every morning after using the bathroom. * Use the same scale. * Wear the same amount of clothing. * Write your weight down on your chart. * Call your doctor if you gain more than 2-3 pounds in 1-2 days. MEDICATIONS * Use this discharge instruction sheet for instructions. * Take your medications at the time your doctor ordered. * Do not skip a dose of your medicines. * If you miss a dose of medicine, take as soon as possible, but DO NOT DOUBLE A DOSE. * Read your medicine information when you get home. * Know all of the side effects of your medicine. * Call your doctor's office if you have any side effects. * Be sure all of your doctors know what medicine and herbs you take (including cold, flu, and herbal medicine). * Pain Medicine: If you do not get relief from your pain, please call your doctor for help. Take the following with you to your follow-up doctor appointments: * Weight Chart * Medication List * List of questions Do not drink excessive alcohol, beer or wine. Sal Machine Molder Provider Instructions: For your diarrhea consider taking Metamucil or Citrucel or similar generic fiber agent once or twice a day for at least a week if your diarrhea does not improve you may add in some Imodium no more than 3 days a week. If this is on for your diarrhea you should see your family doctor or be considered to be referred to blockers skiver Dr. Bethea's office should call you with regard to scheduling care TAVR surgery. Until that time your body may be sensitive to fluids and exercise please do not do any intentional exercise watch her salt and weigh her self daily as instructed above. If you have any changes or questions please do not hesitate to call Dr. Bethea's office immediately Contact your oncologist regarding instructions on taking your medication for your myeloma surrounding your consideration of upcoming surgery I would anticipate that this medication will be held but please contact your oncologist Dr. Jorge Allen for further instructions a earliest convenience Pending Studies at Discharge: No Stand-Alone Forms: My [facility], Smoking Cessation Medications and DC Order Prescriptions: New Metamucil (with sugar) 3.4 gram Powder In Packet 1 ea PO QAM Qty: 1 RF: 0 Continued fluticasone propionate [Flonase Allergy Relief] 50 mcg/actuation spray,suspension 1 spray intranasal BID PRN (Reason: allergy symptoms) Qty: 16 RF: 2 metformin 500 mg tablet extended release 24 hr 1,000 mg PO QPM Qty: 180 RF: 3 venlafaxine 75 mg capsule,extended release 24hr 75 mg PO QAM Qty: 30 RF: 5 loratadine 10 mg capsule 10 mg PO DAILY PRN (Reason: Allergy Symptoms) Qty: 30 RF: 5 warfarin 1 mg tablet See Rx Instructions mg PO DAILY Qty: 15 RF: 2 OneTouch Ultra Test Strip See Rx Instructions .ROUTE .COMPLEX Qty: 100 RF: 3 atorvastatin 10 mg tablet 10 mg PO DAILY Qty: 90 RF: 3 warfarin 4 mg tablet See Rx Instructions .ROUTE .COMPLEX Qty: 180 RF: 1 venlafaxine 150 mg capsule,extended release 24hr 150 mg PO QPM Qty: 90 RF: 3 calcium carbonate [Calcium 600] 600 mg calcium (1,500 mg) tablet 600 mg PO DAILY RF: 0 acetaminophen 650 mg tablet extended release 650 mg PO DAILY PRN (Reason: pain) RF: 0 triamcinolone acetonide 0.1 % cream 1 applic topical BID PRN (Reason: dermatitis) RF: 0 K-Phos Original 500 mg tablet,soluble 500 mg PO DAILY RF: 0 nystatin 100,000 unit/gram powder 1 applic topical DAILY PRN (Reason: Skin Irritation) RF: 0 cholecalciferol (vitamin D3) 2,000 unit tablet 2,000 unit PO QAM RF: 0 amoxicillin 500 mg capsule 2,000 mg PO ONCE PRN (Reason: DENTAL APPOINTMENTS) Qty: 4 RF: 0 oxycodone 5 mg tablet 5 mg PO Q6H PRN (Reason: pain) Qty: 28 RF: 0 ascorbic acid (vitamin C) 500 mg tablet 1,000 mg PO QAM RF: 0 cyanocobalamin (vitamin B-12) 500 mcg tablet 1,000 mcg PO QAM RF: 0 acyclovir 400 mg tablet 400 mg PO BID RF: 0 Revlimid 10 mg capsule 10 mg PO DAILY RF: 0 multivitamin Tablet 1 tab PO DAILY RF: 0 furosemide 20 mg tablet 20 mg PO QAM RF: 0 ketotifen fumarate [Alaway] 0.025 % (0.035 %) Drops 1 drp OPHTHALMIC (EYE) BID RF: 0 Discontinued dexamethasone 4 mg tablet 20 mg PO WK RF: 0 Discharge Orders: Discharge Order (Routine); Ordered 03/06/22 Ordered By: Gautam Guzman/Other Patient Handouts: High Blood Sugar (Hyperglycemia), Managing Type 2 Diabetes Admission Data Admit Date/Time: 03/01/22 15:34 Attending Provider: Gautam Priest Admit Provider: Lyndon Villatoro Primary Care Provider: Kulwinder Byers Other Providers: Lyndon Villatoro ; Aly Guy Other Interventions: Discharge Summary Assessment (RN) Last Done: 03/06/22 11:50 Coding Level of Care Code D/C DAY MANAGEMENT >30 MINS Diagnoses Aortic stenosis I35.0 Cardiac valve disease etiology: etiology unspecified Lower GI bleed K92.2 jail (current) use of anticoagulants Z79.01 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, type 2 E11.9 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 mcfp insulin use: without mcfp use 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 complication status: without complication Hyperlipidemia E78.5 Hyperlipidemia type: unspecified Myeloma C90.00 Multiple myeloma remission status: not in remission 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 Plasmacytoma active/remission status: not having achieved remission Pacemaker Z95.0 Sleep apnea G47.30
[2022-03-06] MEDS ORDERED: FAMOTIDINE 20 MG TAB PO SCH (21:00)
--- NOTE | 2022-03-12 14:07 | Coding Query ---
CONGESTIVE HEART FAILURE To Promote full compliance with coding requirements relating to patient care, physician participation is requested in all cases of food service tray attendant uncertainty. Please assist us with the following questions. A diagnosis of HFpEF is documented in the patient's medical record. To accurately code this diagnosis and to compare patient severity, we ask that you specify the type of heart failure by placing an X within the parenthesis (x). HFpEF (DIASTOLIC HEART FAILURE) ( ) Acute ( x) Chronic ( ) Acute on Chronic ( ) Rheumatic ( ) Unknown Was the CHF Present On Admission? Please check the appropriate box: (x ) Present on Admission ( ) Not Present On Admission ( ) Clinically undetermined Thank you Debbie GUZMAN
--- NOTE | 2022-03-17 09:54 | Coding Query ---
CODING QUERY To promote full compliance with coding requirements relating to patient care, provider participation is requested in all cases of stave jointer uncertainty. Please assist us with the question(s) below: Coding Question(s): Pancytopenia is documented on the ER and then on Progress Notes 03/04 & 03/05 and on the Discharge Summary with, "Patient is antineoplastic induced pancytopenia on presentation with recovery". Please specify below, regarding Pancytopenia. ( xx ) Pancytopenia was monitored and/or treated during this admission, as with careful monitoring of labwork ( ) Pancytopenia was NOT monitored and/or treated during this admission ( ) Other: Please Specify Physician's Response(s): Thank you Debbie Santo Principal Diagnosis: "that condition established after study, to be chiefly responsible for occasioning the admission of the patient to the hospital for care." Co-Existing Principal Diagnosis: "when two or more diagnoses equally meet the criteria for principal diagnosis as determined by the circumstances of admission, diagnostic work up, and/or therapy provided, and the Alphabetic Index, Tabular List, or another coding guideline does not provide sequencing direction, any one of the diagnoses may be sequenced first." "When the physician has documented what appears to be a current diagnosis in the body of the record, but has not included the diagnosis in the final diagnostic statement, the physician should be asked whether the diagnosis should be added." (Source Coding Clinic 2 QTR90. p3-4) MEGAN
== END 2022-03-06 13:46 | disposition home health service (06) | DRG 377 ==
LOC: ED 13:19 → 2N 15:34 → SUATTDRO 15:34 → 2N 19:09 → 2S 03-05 10:23
PROC: CLB.CCO (2022-03-05 09:00)

== ENCOUNTER 2022-05-06 15:57 | Inpatient (IN) ==
[2022-05-06] MEDS ORDERED: FUROSEMIDE INJ 20 MG/2 ML VIAL IV ONE (16:22)
--- NOTE | 2022-05-06 16:22 | Emergency Department Note ---
Impression & Plan CHF exacerbation, Aortic stenosis, Anemia, Breathlessness ED Provider Note Provider: Jaxson Emery MD DATE OF SERVICE: 05/06/2022 CHIEF COMPLAINT: Shortness of breath HISTORY OF PRESENT ILLNESS: Patient is a 82-year-old female history of heart failure with aortic stenosis severe, COVID-19, GI bleed, multiple myeloma on chemotherapy, diabetes, long-term use of Coumadin presenting today referred from the outpatient [facility] office for shortness of breath. Patient states has been worsening over the last several days. States was evaluated in was not a candidate for aortic valve replacement with open heart surgery. She states she is scheduled in May 19 for a PET scan to determine if she may be a candidate for TAVR based on her current oncological process. States she is noticed her weight, about 5 pounds but does not have significantly worsened leg swelling. States low blood postnasal drip and a bit of a mild chronic cough in particular shortness of breath with any exertion. Patient states even at rest she feels little short of breath. States she was late for her appointment today as she was very weak to get out of bed in the house to get ready and go. No falls reported. Denies pain. Normally takes Lasix but did not take that today thus far. Missed her appointment this morning seen as a nursing visit and given her significant shortness of breath there although not hypoxic was sent here for further evaluation. REVIEW OF SYSTEMS: A total of 10 review of systems was obtained and negative except as stated above in the HPI. PAST MEDICAL HISTORY: As noted above MEDICATIONS: Reviewed home medications SOCIAL HISTORY: Resides at home, non-smoker PHYSICAL EXAM: GENERAL: alert and oriented in no acute distress on stretcher Head: normocephalic and atraumatic EYES: No injection, discharge or icterus. NECK: Trachea midline. Supple. ENT: Mucous membranes pink and moist. LUNGS: Airway patent. No retractions. Breath sounds in the bases with scattered crackles HEART: Regular rate and rhythm. No chest wall tenderness ABDOMEN: Soft and non-tender, without guarding or rebound. SKIN: Acyanotic, warm, dry, without rashes EXTREMITIES: Lower extremities with 1+ bilateral edema slightly tenderness of the edema. NEUROLOGICAL: No focal deficits. No aphasia. No facial droop or slurred speech. EK bpm atrially sensed ventricular paced rhythm without PVC noted. No clear ST segment elevation. QTc 520. In comparison to previous from the of this year similar. CONTINUOUS CARDIAC MONITORING: was ordered and showed a heart rate of 80s-90s bpm in ventricular paced rhythm Patient's laboratory studies and imaging reviewed. Differential includes Reactive airway disease, pneumonia, pneumothorax, COPD, CHF, infections, cardiac ischemia, pulmonary embolism, musculoskeletal, gastrointestinal, as well as other pathologies. IMPRESSION/MEDICAL DECISION MAKING: Progressive worsening shortness of breath. History about aortic stenosis and CHF. Perhaps mild weight gain. Minimal lower extremity swelling. Did not take her Lasix check given an IV dose of Lasix here. Basic blood work to be obtained as well as x-ray and COVID test. Patient with oncological history as well and reports possible consideration for TAVR depending on PET scan in several weeks. Is anticoagulant Coumadin and INR was checked. Placed on small amount oxygen for comfort as the full symptoms that she is dyspneic and can obviously see if she could ambulate this to be quite difficult. EKG and troponin sent but lower suspicion for an acute cardiac injury at this time. Chest x-ray per radiology with evidence of vascular congestion and small effusion. With her significant aortic stenosis likely a very fine line between hypo and hypervolemia. Slight leukopenia and anemia noted. Patient states he was scheduled for blood transfusion tomorrow. Given concerns for fluid overload will defer this at this time but she may benefit from transfusion when her volume status is optimized. No significant electrolyte abnormality or signs of renal dysfunction. BNP mildly elevated. Mild troponin elevation noted. Negative COVID. Discussed given her significant shortness of breath with minimal exertion feel further care here to be reasonable DIAGNOSIS: Shortness of breath, CHF exacerbation, anemia, aortic stenosis DISPOSITION: Hospitalist will evaluate Patient was agreeable with this plan. 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; s/p surgery, radiation, chemo (receiving weekly oral/IV chemo Fridays + dexamethasone 40mg pretreatment prior to chemo) Positional vertigo Post herpetic neuralgia hx shingles Post-menopausal bleeding Sepsis Sleep apnea CPAP + 2 LPM O2 qhs Urinary leakage Surgical History H/O surgical biopsy Right distal humerus 11/21/18 History of appendectomy History of bilateral carpal tunnel release History of cataract surgery Bilateral History of cholecystectomy History of endometrial biopsy History of knee replacement procedure of left knee History of knee replacement procedure of right knee History of surgery right distal humerus replacement History of tonsillectomy S/P dilation and curettage S/P tooth extraction S/P tubal ligation Family History Mother , 89yo Myocardial infarction Congestive heart failure Father , Pt unsure of details of father's health history;Knows he had facial cancer Malignant neoplasm of oral cavity Sister , May 2019 of copd Diabetes Breast cancer Son Hypertension Grandmother Diabetes Denies family history of Prostate cancer Lung cancer Colorectal cancer Social History Smoking Status: Never smoker Second Hand Exposure: No; Hx Alcohol Use: No Hx Substance Use: No Preferred Language: Georgian Communication Ability: Effective Visual Impairment: No Limitations Hearing Ability: Normal Promotional Advertising Assistant Required: No Beliefs That Will Affect Care: None marital status: / Current Living Situation: Alone Current Living Situation Comment: family checks in current occupational status: 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 Other Information That Helps Us Care for You: No Feels Safe at Home: Yes Safety Concerns: Feels Safe At This Time Childhood Exposure to Second-Hand Smoke: No caffeine: Yes (1 cup/day) during the past year weight has: remained stable Dental Care, Regularly: No Physical Activity Frequency: Does not Exercise Seatbelt Use: always Sunscreen Use: Yes Assistive Devices: Cane, CPAP, Denture - Upper, Denture - Lower, Glasses and Oxygen - Continuous Allergies Allergies Allergy/AdvReac Type Severity Reaction Status Date / Time adhesive tape AdvReac Mild Skin rash Verified 03/12/22 11:20 Home Meds Home Medications Medication Instructions Recorded Confirmed cholecalciferol (vitamin D3) 50 2,000 unit PO QAM tab 07/31/19 03/12/22 mcg (2,000 unit) tablet amoxicillin 500 mg capsule 2,000 mg PO ONCE PRN #4 cap 08/01/19 03/12/22 oxycodone 5 mg tablet 5 mg PO Q6H PRN #28 tab 08/01/19 03/12/22 acyclovir 400 mg tablet 400 mg PO BID 11/20/19 03/12/22 potassium phosphate, monobasic 500 500 mg PO DAILY tab 07/07/20 03/12/22 mg soluble tablet (K-Phos Original) lenalidomide 10 mg capsule 10 mg PO DAILY cap 11/18/20 03/12/22 (Revlimid) multivitamin 1 tab PO DAILY 03/06/21 03/12/22 furosemide 20 mg tablet 20 mg PO QAM 12/26/21 03/12/22 acetaminophen 650 mg 650 mg PO DAILY PRN tab 12/31/21 03/12/22 tablet,extended release ascorbic acid (vitamin C) 500 mg 1,000 mg PO QAM tab 12/31/21 03/12/22 tablet calcium carbonate 600 mg calcium 600 mg PO DAILY 12/31/21 03/12/22 (1,500 mg) tablet (Calcium) cyanocobalamin (vitamin B-12) 500 1,000 mcg PO QAM tab 12/31/21 03/12/22 mcg tablet triamcinolone acetonide 0.1 % 1 applic TOPICAL BID PRN g 12/31/21 03/12/22 topical cream ketotifen fumarate 0.025 % (0.035 1 drp OPHTHALMIC (EYE) BID 03/01/22 03/12/22 %) eye drops ([place]) Previous Rx's Medication Instructions Recorded fluticasone propionate 50 1 spray INTRANASAL BID PRN #16 g 09/29/21 mcg/actuation nasal spray,suspension (Flonase Allergy Relief) metformin 500 mg tablet,extended 1,000 mg PO QPM #180 tab 10/06/21 release 24 hr venlafaxine 75 mg capsule,extended 75 mg PO QAM #30 cap 10/06/21 release 24 hr loratadine 10 mg capsule 10 mg PO DAILY PRN #30 cap 11/02/21 venlafaxine 150 mg 150 mg PO QPM #90 cap 12/30/21 capsule,extended release 24 hr warfarin 1 mg tablet See Rx Instructions PO DAILY #15 01/08/22 tab blood sugar diagnostic (OneTouch See Rx Instructions .ROUTE 01/18/22 Ultra Test) .COMPLEX #100 strip atorvastatin 10 mg tablet 10 mg PO DAILY #90 tab 02/12/22 warfarin 4 mg tablet See Rx Instructions .ROUTE 02/12/22 .COMPLEX #180 tablet psyllium husk (with sugar) 3.4 1 ea PO QAM #1 btl 03/06/22 gram oral powder packet (Metamucil (with sugar)) nystatin 100,000 unit/gram topical 1 applic TOPICAL DAILY PRN #60 g 03/12/22 powder Results & Data (ED) Vital Signs Vital Signs - 24 hr 05/06/22 16:07 05/06/22 16:18 05/06/22 17:49 Temperature 37.1 C Temperature Source Oral Pulse Rate 91 H Pulse Rate [Apical] 89 Pulse Rhythm [Apical] Pulse Strength [Apical] Respiratory Rate 22 18 Respiratory Effort / Characteristics Non-Labored Spontaneous Non-Labored Spontaneous Respiratory Depth Normal Normal Respiratory Pattern Regular Regular Blood Pressure 129/63 Blood Pressure [Left Arm] 125/75 Blood Pressure Mean 85 Blood Pressure Mean [Left Arm] 91 Blood Pressure Position Sitting Blood Pressure Position [Left Arm] Sitting Pulse Oximetry 96 100 100 Oxygen Delivery Method Room Air Nasal Cannula Nasal Cannula Oxygen Flow Rate 2 2 Sepsis Recent Fever Within 48 Hours No Sepsis New/Unexplained Change in Mental Status N/A Sepsis Action Taken by Nursing No Action Required 05/06/22 19:00 Temperature 36.9 C Temperature Source Oral Pulse Rate Pulse Rate [Apical] 86 Pulse Rhythm [Apical] Regular Pulse Strength [Apical] Normal Respiratory Rate 18 Respiratory Effort / Characteristics Non-Labored Spontaneous Respiratory Depth Normal Respiratory Pattern Regular Blood Pressure Blood Pressure [Left Arm] 134/80 Blood Pressure Mean Blood Pressure Mean [Left Arm] 98 Blood Pressure Position Blood Pressure Position [Left Arm] Lying Pulse Oximetry 100 Oxygen Delivery Method Room Air Oxygen Flow Rate Sepsis Recent Fever Within 48 Hours Sepsis New/Unexplained Change in Mental Status Sepsis Action Taken by Nursing Laboratory Data Result diagrams: 05/06/22 16:30 05/06/22 16:30 Lab Results 05/06/22 05/06/22 05/06/22 Range/Units 16:30 16:30 16:30 WBC 2.88 L (4.8-10.8) K/uL RBC 2.63 L (4.2-5.4) M/uL Hgb 8.3 L (12.0-16.0) g/dL Hct 26.9 L (37-47) % MCV 102.3 H (80-100) fL MCH 31.6 (25-34) pg MCHC 30.9 L (32-36) g/dL RDW Std Deviation 66.5 H (36.4-46.3) fL RDW Coeff of Giuseppe 18.3 H (11.5-14.5) % Plt Count 180 (130-400) K/uL MPV 10.6 H (7.4-10.4) fL Immature Gran % (Auto) 0.3 % Neut % (Auto) 50.1 % Lymph % (Auto) 18.1 % Alexander % (Auto) 28.1 % Eos % (Auto) 2.4 % Baso % (Auto) 1.0 % Neut # (Auto) 1.44 (1.4-6.5) K/uL Lymph # (Auto) 0.52 L (1.2-3.4) K/uL Alexander # (Auto) 0.81 H (0.11-0.59) K/uL Eos # (Auto) 0.07 (0-0.5) K/uL Baso # (Auto) 0.03 (0-0.2) K/uL Immature Gran # (Auto) 0.01 (0.00-0.02) K/uL PT 19.3 H (9.0-12.0) Seconds INR 1.9 H (0.9-1.1) APTT 32.5 H (21.0-31.0) Seconds PTT Ratio 1.2 Sodium 142 (136-145) mmol/L Potassium 4.3 (3.5-5.1) mmol/L Chloride 108 H (98-107) mmol/L Carbon Dioxide 28 (21-32) mmol/L Anion Gap 6 (3-11) BUN 13 (6-23) mg/dl Creatinine 0.88 (0.6-1.2) mg/dl Est Cr Clr Drug Dosing 55.3 ml/min Est GFR ( Amer) 70.9 ml/min Est GFR (Non-Af Amer) 61.2 ml/min BUN/Creatinine Ratio 14.8 (10-20) Glucose 103 H (70-99(Fasting)) mg/dl Calcium 8.7 (8.5-10.1) mg/dl Magnesium 2.0 (1.7-2.4) mg/dl Total Bilirubin 0.3 (0.2-1.0) mg/dl AST 11 L (13-39) U/L ALT 8 (7-52) U/L Alkaline Phosphatase 51 (34-104) U/L Troponin I High Sens 38.8 H (0-14) pg/ml B-Natriuretic Peptide (0-100) pg/ml Total Protein 6.3 (6.0-8.3) gm/dl Albumin 3.2 L (3.4-5.0) gm/dl Globulin 3.1 (2.5-4.0) gm/dl Albumin/Globulin Ratio 1.0 (0.9-2) SARS-CoV-2, RNA, NAAT (NEGATIVE) Blood Type Antibody Screen 05/06/22 05/06/22 05/06/22 Range/Units 16:30 16:36 18:46 WBC (4.8-10.8) K/uL RBC (4.2-5.4) M/uL Hgb (12.0-16.0) g/dL Hct (37-47) % MCV (80-100) fL MCH (25-34) pg MCHC (32-36) g/dL RDW Std Deviation (36.4-46.3) fL RDW Coeff of Giuseppe (11.5-14.5) % Plt Count (130-400) K/uL MPV (7.4-10.4) fL Immature Gran % (Auto) % Neut % (Auto) % Lymph % (Auto) % Alexander % (Auto) % Eos % (Auto) % Baso % (Auto) % Neut # (Auto) (1.4-6.5) K/uL Lymph # (Auto) (1.2-3.4) K/uL Alexander # (Auto) (0.11-0.59) K/uL Eos # (Auto) (0-0.5) K/uL Baso # (Auto) (0-0.2) K/uL Immature Gran # (Auto) (0.00-0.02) K/uL PT (9.0-12.0) Seconds INR (0.9-1.1) APTT (21.0-31.0) Seconds PTT Ratio Sodium (136-145) mmol/L Potassium (3.5-5.1) mmol/L Chloride (98-107) mmol/L Carbon Dioxide (21-32) mmol/L Anion Gap (3-11) BUN (6-23) mg/dl Creatinine (0.6-1.2) mg/dl Est Cr Clr Drug Dosing ml/min Est GFR ( Amer) ml/min Est GFR (Non-Af Amer) ml/min BUN/Creatinine Ratio (10-20) Glucose (70-99(Fasting)) mg/dl Calcium (8.5-10.1) mg/dl Magnesium (1.7-2.4) mg/dl Total Bilirubin (0.2-1.0) mg/dl AST (13-39) U/L ALT (7-52) U/L Alkaline Phosphatase (34-104) U/L Troponin I High Sens (0-14) pg/ml B-Natriuretic Peptide 569 H (0-100) pg/ml Total Protein (6.0-8.3) gm/dl Albumin (3.4-5.0) gm/dl Globulin (2.5-4.0) gm/dl Albumin/Globulin Ratio (0.9-2) SARS-CoV-2, RNA, NAAT NEGATIVE (NEGATIVE) Blood Type A Negative Antibody Screen NEGATIVE Administered Medications Acyclovir (Acyclovir 400 Mg Tab) 400 mg PO BID DEVON Stop: 06/05/22 21:18 Last Admin: 05/06/22 22:38 Dose: 400 mg Documented by: [id number] Insulin Aspart (Insulin Aspart Per Unit) 0 units SC ACHS DEVON Stop: 06/05/22 21:18 Last Admin: 05/06/22 22:17 Dose: Not Given Documented by: [id number] Venlafaxine HCl (Venlafaxine Hcl Xr 150 Mg Capxr) 150 mg PO QPM DEVON Stop: 06/05/22 21:18 Last Admin: 05/06/22 22:38 Dose: 150 mg Documented by: [id number] Discontinued Medications Furosemide (Furosemide Inj 20 Mg/2 Ml Vial) 20 mg IV ONE ONE Stop: 05/06/22 16:23 Last Admin: 05/06/22 16:36 Dose: 20 mg Documented by: [id number] Warfarin Sodium (Warfarin Sod 4 Mg Tab) 8 mg PO ONE ONE Stop: 05/06/22 21:20 Last Admin: 05/06/22 22:37 Dose: 8 mg Documented by: [id number] Imaging Data Radiologist's Impression: Chest X-Ray 05/06/22 16:18 XR chest 1V portable CLINICAL HISTORY: Dyspnea. COMPARISON STUDY: 03/01/2022 TECHNIQUE: 1 view of the chest FINDINGS: Single frontal view of the chest demonstrates the heart to again be enlarged status post pacer placement. There is evidence for mild central vascular congestion. There is also evidence for left pleural effusion and left basilar atelectasis. No confluent alveolar opacities are identified. There is no defin ite evidence for right pleural effusion. There is no acute osseous pathology. IMPRESSION: 1. Evidence for central vascular congestion, small left pleural effusion and left basilar atelectasis. ACT 112: Negative or not required by law. Electronically signed by: Leif Rivera M.D. 05/06/2022 4:52 PM Discharge Plan Visit Data Chief Complaint: Shortness of Breath/Dyspnea ED Provider: Jaxson Emery Discharge Problem: CHF exacerbation, Aortic stenosis, Anemia, Breathlessness Patient Disposition: Being Evaluated by Hospitalist Discharge Instructions Interventions: ED Discharge Assessment Last Done: 05/06/22 20:35
--- NOTE | 2022-05-06 16:54 | XRay Report ---
XR chest 1V portable CLINICAL HISTORY: Dyspnea. COMPARISON STUDY: 03/01/2022 TECHNIQUE: 1 view of the chest FINDINGS: Single frontal view of the chest demonstrates the heart to again be enlarged status post pacer placem ent. There is evidence for mild central vascular congestion. There is also evidence for left pleural effusion and left basilar atelectasis. No confluent alveolar opacities are identified. There is no de finite evidence for right pleural effusion. There is no acute osseous pathology. IMPRESSION: 1. Evidence for central vascular congestion, small left pleural effusion and left basilar atelectasis . ACT 112: Negative or not required by law. Electronically signed by: Leif Rivera M.D. 05/06/2022 4:52 PM
[2022-05-06 16:56] LABS: Basophils # (auto) 0.03 K/uL (0-0.2); Eosinophils # (auto) 0.07 K/uL (0-0.5); Eosinophils % (auto) 2.4 %; Hematocrit (blood only) 26.9 % (37-47); Hemoglobin 8.3 g/dL (12.0-16.0); Immature Granulocytes # (auto) 0.01 K/uL (0.00-0.02); Immature Granulocytes % (auto) 0.3 %; Lymphocytes # (auto) 0.52 K/uL (1.2-3.4); Lymphocytes % (auto) 18.1 %; Mean Corpuscular Hemoglobin 31.6 pg (25-34); Mean Corpuscular Hgb Conc 30.9 g/dL (32-36); Mean Corpuscular Volume 102.3 fL (80-100); Mean Platelet Volume 10.6 fL (7.4-10.4); Monocytes # (auto) 0.81 K/uL (0.11-0.59); Monocytes % (auto) 28.1 %; Neutrophils # (auto) 1.44 K/uL (1.4-6.5); Neutrophils % (auto) 50.1 %; Platelet Count 180 K/uL (130-400); RDW Coefficient of Variation 18.3 % (11.5-14.5); RDW Standard Deviation 66.5 fL (36.4-46.3); Red Blood Count 2.63 M/uL (4.2-5.4); White Blood Count 2.88 K/uL (4.8-10.8)
[2022-05-06 17:03] LABS: INR 1.9 (0.9-1.1); Partial Thromboplastin Ratio 1.2; Partial Thromboplastin Time 32.5 Seconds (21.0-31.0); Prothrombin Time 19.3 Seconds (9.0-12.0)
[2022-05-06 17:15] LABS: Troponin I High Sensitivity 38.8 pg/ml (0-14)
[2022-05-06 17:17] LABS: Albumin Level 3.2 gm/dl (3.4-5.0); BUN Creatinine Ratio 14.8 (10-20); Bilirubin,Total 0.3 mg/dl (0.2-1.0); Calcium 8.7 mg/dl (8.5-10.1); Creatinine Clr Calc Pharmacy 55.3 ml/min; Est GFR (African American) 70.9 ml/min; Est GFR (Non-African American) 61.2 ml/min; Globulin 3.1 gm/dl (2.5-4.0); Potassium 4.3 mmol/L (3.5-5.1); Total Protein 6.3 gm/dl (6.0-8.3)
--- NOTE | 2022-05-06 18:33 | History & Physical Report ---
Date of Service May 06, 2022 Assessment & Plan (1) (HFpEF) heart failure with preserved ejection fraction: Plan: Here with acute on chronic HFpEF with dyspnea, pleural effusions, pulmonary vascular congestion on chest x-ray, elevated proBNP, weight gain Most recent echocardiogram in 02/2022 with preserved EF, severe aortic stenosis This is almost certainly secondary to her valvular disease -Admit to telemetry unit for arrhythmia monitoring -Was given 1 dose of IV Lasix in the ER which is working well-continue Lasix 20 Mg IV twice daily and hold home p.o. Lasix -Follow daily weights, strict I's and O's, give low-sodium diet -Follow BMP, magnesium and replace electrolytes as needed -Consult her profile trimmer -She is being evaluated for TAVR at [facility], but is awaiting PET scan on 05/19/2022-if her PET scan shows worsening of her myeloma, she has decided that she will not pursue TAVR (2) Aortic stenosis: Plan: Severe aortic stenosis Awaiting possible TAVR in the future Had recent cardiac catheterization which showed moderate nonobstructive CAD Continues on Coumadin for anticoagulation, Atorvastatin (3) Pancytopenia: Plan: Secondary to antineoplastic therapy Follow counts and give transfusional support as needed (4) Myeloma: Plan: Ongoing, follows with Dr. [facility] oncology Continue home Revlimid. 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 (11) MCC (current) use of anticoagulants: Plan: 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 INR is 1.9 Continue Coumadin 8 mg daily 9 mg on Sundays Follow INR in the morning (12) Morbid obesity with BMI of 50.0-59.9, adult: Plan: BMI 57.1 Plan: DVT prophylaxis-Coumadin Disposition-admit to PCU DNR/DNI as discussed with patient History of Present Illness Chief Complaint: SOB Primary Care Provider: Kulwinder Byers MD This patient is an 82-year-old female with history of severe aortic stenosis with possible upcoming TAVR, PPM secondary to complete heart block, HFpEF, GI bleeds, multiple myeloma on chemotherapy, DM 2, DVT/PE on Coumadin, moderate nonobstructive CAD, who presents to the ER with increasing shortness of breath x2 days, 5 pound weight gain, and increasing abdominal girth. Also feeling very weak and found it more difficult to get out of bed today. She reports that she usually watches her sodium and weighs herself every day. She drinks about 48 ounces of water each day but nothing more than that. In the ER, she was found to be quite dyspneic with speaking in full sentences. Her pulse ox was 94% on room air and she was placed on 2 L nasal cannula supplemental O2 for comfort which brought her pulse ox to 100%. She was afebrile and her vital signs were otherwise stable. She had a chest x-ray which showed pulmonary vascular congestion and small pleural effusions. She is chronically anemic with a hemoglobin of 8.3. Her proBNP was elevated at 569, and her troponin was mildly elevated at 38.8. A COVID test was negative. She was given a dose of IV Lasix in the ER. She will be admitted for acute on chronic HFpEF. Allergies Allergy/AdvReac Type Severity Reaction Status Date / Time adhesive tape AdvReac Mild Skin rash Verified 03/12/22 11:20 Home Medications Medication Instructions Recorded Confirmed Type cholecalciferol (vitamin D3) 50 2,000 unit PO QAM tab 07/31/19 03/12/22 History mcg (2,000 unit) tablet amoxicillin 500 mg capsule 2,000 mg PO ONCE PRN #4 cap 08/01/19 03/12/22 History oxycodone 5 mg tablet 5 mg PO Q6H PRN #28 tab 08/01/19 03/12/22 History acyclovir 400 mg tablet 400 mg PO BID 11/20/19 03/12/22 History potassium phosphate, monobasic 500 500 mg PO DAILY tab 07/07/20 03/12/22 History mg soluble tablet (K-Phos Original) lenalidomide 10 mg capsule 10 mg PO DAILY cap 11/18/20 03/12/22 History (Revlimid) multivitamin 1 tab PO DAILY 03/06/21 03/12/22 History fluticasone propionate 50 1 spray INTRANASAL BID PRN #16 g 09/29/21 03/12/22 Rx mcg/actuation nasal spray,suspension (Flonase Allergy Relief) metformin 500 mg tablet,extended 1,000 mg PO QPM #180 tab 10/06/21 03/12/22 Rx release 24 hr venlafaxine 75 mg capsule,extended 75 mg PO QAM #30 cap 10/06/21 03/12/22 Rx release 24 hr loratadine 10 mg capsule 10 mg PO DAILY PRN #30 cap 11/02/21 03/12/22 Rx furosemide 20 mg tablet 20 mg PO QAM 12/26/21 03/12/22 History venlafaxine 150 mg 150 mg PO QPM #90 cap 12/30/21 03/12/22 Rx capsule,extended release 24 hr acetaminophen 650 mg 650 mg PO DAILY PRN tab 12/31/21 03/12/22 History tablet,extended release ascorbic acid (vitamin C) 500 mg 1,000 mg PO QAM tab 12/31/21 03/12/22 History tablet calcium carbonate 600 mg calcium 600 mg PO DAILY 12/31/21 03/12/22 History (1,500 mg) tablet (Calcium) cyanocobalamin (vitamin B-12) 500 1,000 mcg PO QAM tab 12/31/21 03/12/22 History mcg tablet triamcinolone acetonide 0.1 % 1 applic TOPICAL BID PRN g 12/31/21 03/12/22 History topical cream warfarin 1 mg tablet See Rx Instructions PO DAILY #15 01/08/22 03/12/22 Rx tab blood sugar diagnostic (OneTouch See Rx Instructions .ROUTE 01/18/22 03/12/22 Rx Ultra Test) .COMPLEX #100 strip atorvastatin 10 mg tablet 10 mg PO DAILY #90 tab 02/12/22 03/12/22 Rx warfarin 4 mg tablet See Rx Instructions .ROUTE 02/12/22 03/12/22 Rx .COMPLEX #180 tablet ketotifen fumarate 0.025 % (0.035 1 drp OPHTHALMIC (EYE) BID 03/01/22 03/12/22 History %) eye drops ([place]) psyllium husk (with sugar) 3.4 1 ea PO QAM #1 btl 03/06/22 03/12/22 Rx gram oral powder packet (Metamucil (with sugar)) nystatin 100,000 unit/gram topical 1 applic TOPICAL DAILY PRN #60 g 03/12/22 03/12/22 Rx powder 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; s/p surgery, radiation, chemo (receiving weekly oral/IV chemo Fridays + dexamethasone 40mg pretreatment prior to chemo) Positional vertigo Post herpetic neuralgia hx shingles Post-menopausal bleeding Sepsis Sleep apnea CPAP + 2 LPM O2 qhs Urinary leakage Surgical History H/O surgical biopsy Right distal humerus 11/21/18 History of appendectomy History of bilateral carpal tunnel release History of cataract surgery Bilateral History of cholecystectomy History of endometrial biopsy History of knee replacement procedure of left knee History of knee replacement procedure of right knee History of surgery right distal humerus replacement History of tonsillectomy S/P dilation and curettage S/P tooth extraction S/P tubal ligation Family History Mother , 89yo Myocardial infarction Congestive heart failure Father , Pt unsure of details of father's health history;Knows he had facial cancer Malignant neoplasm of oral cavity Sister , May 2019 of copd Diabetes Breast cancer Son Hypertension Grandmother Diabetes Denies family history of Prostate cancer Lung cancer Colorectal cancer Social History Smoking Status: Never smoker Second Hand Exposure: No; Hx Alcohol Use: No Hx Substance Use: No Preferred Language: Divehi Communication Ability: Effective Visual Impairment: No Limitations Hearing Ability: Normal Community Midwife Required: No Beliefs That Will Affect Care: None marital status: / Current Living Situation: Alone Current Living Situation Comment: family checks in current 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 Feels Safe at Home: Yes Childhood Exposure to Second-Hand Smoke: No caffeine: Yes (1 cup/day) during the past year weight has: remained stable Dental Care, Regularly: No Physical Activity Frequency: Does not Exercise Seatbelt Use: always Sunscreen Use: Yes Assistive Devices: Cane Review of Systems Review of Systems: All systems reviewed & are unremarkable except as noted in HPI & below Physical Exam Constitutional: WD/WN, vitals as above Eyes: PERRL, conjunctivae normal, anicteric sclerae ENMT: external ear and nose normal, oropharynx normal Neck: trachea midline, no thyromegaly Respiratory: normal respiratory effort (With supplemental O2 nasal cannula in place); not tachypneic Auscultation: + crackles (Bibasilar); no rhonchi and no wheezes Cardiovascular: Rate/Rhythm: regular rate and regular rhythm Heart Sounds: + murmur (3/6 AARON at RUSB) Vessels: dorsalis pedis pulses present Extremities: + edema (Trace pitting edema of the legs bilaterally); no calf tenderness Chest (Breasts): Chest: + pacemaker (Left chest wall) Gastrointestinal (Abdomen): normal bowel sounds, soft, nontender, no hepatospl enomegaly Musculoskeletal: Extremities: extremities normal to inspection; no cyanosis and no clubbing Skin: no rashes, warm and dry Chronic venous stasis changes with chronic appearing erythema of the legs bilaterally Neurologic: moves all extremities and awake; no focal motor deficits Psychiatric: A+Ox3, euthymic affect Lymphatic: no lymphedema Results & Data Results & Data ([facility]) Vital Signs (Past 12 Hours) Vital Signs Temp Pulse Pulse Resp BP BP Pulse Ox 05/06/22 17:49 89 18 125/75 100 05/06/22 16:18 100 05/06/22 16:07 37.1 C 91 H 22 129/63 96 Laboratory Results 05/06/22 05/06/22 05/06/22 Range/Units 16:36 16:30 16:30 WBC (4.8-10.8) K/uL RBC (4.2-5.4) M/uL Hgb (12.0-16.0) g/dL Hct (37-47) % MCV (80-100) fL MCH (25-34) pg MCHC (32-36) g/dL RDW Std Deviation (36.4-46.3) fL RDW Coeff of Giuseppe (11.5-14.5) % Plt Count (130-400) K/uL MPV (7.4-10.4) fL Immature Gran % (Auto) % Neut % (Auto) % Lymph % (Auto) % [place] % (Auto) % Eos % (Auto) % Baso % (Auto) % Neut # (Auto) (1.4-6.5) K/uL Lymph # (Auto) (1.2-3.4) K/uL [place] # (Auto) (0.11-0.59) K/uL Eos # (Auto) (0-0.5) K/uL Baso # (Auto) (0-0.2) K/uL Immature Gran # (Auto) (0.00-0.02) K/uL PT (9.0-12.0) Seconds INR (0.9-1.1) APTT (21.0-31.0) Seconds PTT Ratio Sodium 142 (136-145) mmol/L Potassium 4.3 (3.5-5.1) mmol/L Chloride 108 H (98-107) mmol/L Carbon Dioxide 28 (21-32) mmol/L Anion Gap 6 (3-11) BUN 13 (6-23) mg/dl Creatinine 0.88 (0.6-1.2) mg/dl Est Cr Clr Drug Dosing 55.3 ml/min Est GFR ( Amer) 70.9 ml/min Est GFR (Non-Af Amer) 61.2 ml/min BUN/Creatinine Ratio 14.8 (10-20) Glucose 103 H (70-99(Fasting)) mg/dl Calcium 8.7 (8.5-10.1) mg/dl Magnesium 2.0 (1.7-2.4) mg/dl Total Bilirubin 0.3 (0.2-1.0) mg/dl AST 11 L (13-39) U/L ALT 8 (7-52) U/L Alkaline Phosphatase 51 (34-104) U/L Troponin I High Sens 38.8 H (0-14) pg/ml B-Natriuretic Peptide 569 H (0-100) pg/ml Total Protein 6.3 (6.0-8.3) gm/dl Albumin 3.2 L (3.4-5.0) gm/dl Globulin 3.1 (2.5-4.0) gm/dl Albumin/Globulin Ratio 1.0 (0.9-2) SARS-CoV-2, RNA, NAAT NEGATIVE (NEGATIVE) 05/06/22 05/06/22 Range/Units 16:30 16:30 WBC 2.88 L (4.8-10.8) K/uL RBC 2.63 L (4.2-5.4) M/uL Hgb 8.3 L (12.0-16.0) g/dL Hct 26.9 L (37-47) % MCV 102.3 H (80-100) fL MCH 31.6 (25-34) pg MCHC 30.9 L (32-36) g/dL RDW Std Deviation 66.5 H (36.4-46.3) fL RDW Coeff of Giuseppe 18.3 H (11.5-14.5) % Plt Count 180 (130-400) K/uL MPV 10.6 H (7.4-10.4) fL Immature Gran % (Auto) 0.3 % Neut % (Auto) 50.1 % Lymph % (Auto) 18.1 % [place] % (Auto) 28.1 % Eos % (Auto) 2.4 % Baso % (Auto) 1.0 % Neut # (Auto) 1.44 (1.4-6.5) K/uL Lymph # (Auto) 0.52 L (1.2-3.4) K/uL [place] # (Auto) 0.81 H (0.11-0.59) K/uL Eos # (Auto) 0.07 (0-0.5) K/uL Baso # (Auto) 0.03 (0-0.2) K/uL Immature Gran # (Auto) 0.01 (0.00-0.02) K/uL PT 19.3 H (9.0-12.0) Seconds INR 1.9 H (0.9-1.1) APTT 32.5 H (21.0-31.0) Seconds PTT Ratio 1.2 Sodium (136-145) mmol/L Potassium (3.5-5.1) mmol/L Chloride (98-107) mmol/L Carbon Dioxide (21-32) mmol/L Anion Gap (3-11) BUN (6-23) mg/dl Creatinine (0.6-1.2) mg/dl Est Cr Clr Drug Dosing ml/min Est GFR ( Amer) ml/min Est GFR (Non-Af Amer) ml/min BUN/Creatinine Ratio (10-20) Glucose (70-99(Fasting)) mg/dl Calcium (8.5-10.1) mg/dl Magnesium (1.7-2.4) mg/dl Total Bilirubin (0.2-1.0) mg/dl AST (13-39) U/L ALT (7-52) U/L Alkaline Phosphatase (34-104) U/L Troponin I High Sens (0-14) pg/ml B-Natriuretic Peptide (0-100) pg/ml Total Protein (6.0-8.3) gm/dl Albumin (3.4-5.0) gm/dl Globulin (2.5-4.0) gm/dl Albumin/Globulin Ratio (0.9-2) SARS-CoV-2, RNA, NAAT (NEGATIVE) Diagnostic Findings Chest X-Ray 05/06/22 16:18 XR chest 1V portable CLINICAL HISTORY: Dyspnea. COMPARISON STUDY: 03/01/2022 TECHNIQUE: 1 view of the chest FINDINGS: Single frontal view of the chest demonstrates the heart to again be enlarged status post pacer placement. There is evidence for mild central vascular congestion. There is also evidence for left pleural effusion and left basilar atelectasis. No confluent alveolar opacities are identified. There is no definite evidence for right pleural effusion. There is no acute osseous pathology. IMPRESSION: 1. Evidence for central vascular congestion, small left pleural effusion and left basilar atelectasis. ACT 112: Negative or not required by law. Electronically signed by: Leif Rivera M.D. 05/06/2022 4:52 PM ECG Additional Comments: ECG on 05/06/2022 with atrial sensed ventricularly paced rhythm, rate 98 Code Status & VTE Plan Code Status DNR/DNI VTE Prophylaxis Plan VTE Prophylaxis will be ordered: Yes PG Care Time/CCT Total # of Minutes Spent Total Time Spent with Patient: Total time spent is greater than 50% in coordination of care (as documented) at patient's floor/unit and/or counseling patient: Coding Level of Care Code 08047 Initial Inpt Care Lvl 3 Diagnoses (HFpEF) heart failure with preserved ejection fraction I50.30 Pancytopenia D61.818 Morbid obesity with BMI of 50.0-59.9, adult E66.01; Z68.43 Depression F32.9 Active/Remission status: remission status unspecified Depression Type: major depressive disorder Major depression recurrence: unspecified whether recurrent Hyperlipidemia E78.5 Hyperlipidemia type: unspecified Aortic stenosis I35.0 Cardiac valve disease etiology: etiology unspecified Sleep apnea G47.30 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, type 2 E11.9 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 complication status: without complication 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 longterm insulin use: without longterm use Pacemaker Z95.0 Plasmacytoma C90.30 Plasmacytoma active/remission status: not having achieved remission Plasmacytoma type: solitary plasmacytoma MCC (current) use of anticoagulants Z79.01 Myeloma C90.00 Multiple myeloma remission status: not in remission (1) 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, type 2 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 complication status: without complication 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: without longterm use Qualified Code(s): E11.9 - Type 2 diabetes mellitus without complications (2) Plasmacytoma Plasmacytoma active/remission status: not having achieved remission Plasmacytoma type: solitary plasmacytoma Qualified Code(s): C90.30 - 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 (3) Aortic stenosis Cardiac valve disease etiology: etiology unspecified Qualified Code(s): I35.0 - Nonrheumatic aortic (valve) stenosis (4) Depression Active/Remission status: remission status unspecified Depression Type: major depressive disorder Major depression recurrence: unspecified whether recurrent Qualified Code(s): F32.9 - Major depressive disorder, single episode, unspecified (5) Hyperlipidemia Hyperlipidemia type: unspecified Qualified Code(s): E78.5 - Hyperlipidemia, unspecified (6) Myeloma Multiple myeloma remission status: not in remission Qualified Code(s): C90.00 - Multiple myeloma not having achieved remission
[2022-05-06] MEDS ORDERED: POLYETHYLENE (MIRALAX) 17 GM PACK PO PRN (21:19)
[2022-05-06] MEDS ORDERED: GLUCOSE 40% GEL 15 GM TUBE PO PRN (21:19)
[2022-05-06] MEDS ORDERED: GLUCOSE 10 TABS/TUBE PO PRN (21:19)
[2022-05-06] MEDS ORDERED: GLUCAGON FOR INJ 1 MG VIAL SQ PRN (21:19)
[2022-05-06] MEDS ORDERED: DEXTROSE 50% 50 ML SYRINGE IV PRN (21:19)
[2022-05-06] MEDS ORDERED: WARFARIN SOD 4 MG TAB PO ONE (21:19)
[2022-05-06] MEDS ORDERED: CARBOHYDRATES FOR HYPOGLYCEMIA PO PRN (21:19)
[2022-05-06] MEDS ORDERED: ONDANSETRON INJ 2 MG/ML 2 ML VIAL IV PRN (21:19)
[2022-05-06] MEDS ORDERED: ACETAMINOPHEN 325 MG TAB PO PRN (21:19)
[2022-05-06] MEDS: INSULIN ASPART PER UNIT SC SCH (22:17)
[2022-05-06] MEDS: ACYCLOVIR 400 MG TAB PO SCH (22:38)
[2022-05-06] MEDS: VENLAFAXINE HCL XR 150 MG CAPXR PO SCH (22:38)
[2022-05-07 07:20] LABS: Hematocrit (blood only) 24.7 % (37-47); Hemoglobin 7.7 g/dL (12.0-16.0); Mean Corpuscular Hgb Conc 31.2 g/dL (32-36); Mean Corpuscular Volume 102.5 fL (80-100); Mean Platelet Volume 10.3 fL (7.4-10.4); Platelet Count 172 K/uL (130-400); RDW Standard Deviation 66.7 fL (36.4-46.3); Red Blood Count 2.41 M/uL (4.2-5.4); White Blood Count 2.01 K/uL (4.8-10.8)
[2022-05-07 07:45] LABS: ALC (manual) 0.33 K/uL (1.2-3.4); ANC (manual) 1.29 K/uL (1.4-6.5); Basophils # (manual) 0.02 K/uL (0-0.2); Basophils % (manual) 0.9 %; Eosinophils # (manual) 0.09 K/uL (0-0.5); Eosinophils % (manual) 4.3 %; Giant Platelets 1+; Lymphocytes # (manual) 0.33 K/uL (1.2-3.4); Lymphocytes % (manual) 16.5 %; Monocytes # (manual) 0.28 K/uL (0.11-0.59); Monocytes % (manual) 13.9 %; Neutrophils # (manual) 1.29 K/uL (1.4-6.5); Neutrophils % (manual) 64.4 %
[2022-05-07 07:46] LABS: Prothrombin Time 20.8 Seconds (9.0-12.0)
[2022-05-07 07:49] LABS: BUN Creatinine Ratio 14.1 (10-20); Creatinine Clr Calc Pharmacy 57.2 ml/min; Est GFR (Non-African American) 63.8 ml/min; Magnesium 1.9 mg/dl (1.7-2.4); Potassium 3.7 mmol/L (3.5-5.1)
[2022-05-07 07:52] LABS: Troponin I High Sensitivity 45.3 pg/ml (0-14)
[2022-05-07 08:06] LABS: Estimated Average Glucose 123 mg/dl; Hemoglobin A1C 5.9 % (4.5-5.6)
[2022-05-07] MEDS: INSULIN ASPART PER UNIT SC SCH ×4 (08:08→20:40)
[2022-05-07] MEDS: ACYCLOVIR 400 MG TAB PO SCH ×2 (08:09→20:34)
[2022-05-07] MEDS: CYANOCOBALAMIN (B-12) 500 MCG TABLET PO SCH (08:09)
[2022-05-07] MEDS: CHOLECALCIFEROL 1,000 UNITS 25 MCG TAB PO SCH (08:09)
[2022-05-07] MEDS: ATORVASTATIN 10 MG TAB PO SCH (08:09)
[2022-05-07 08:10] LABS: Folate (Folic Acid) > 22.30 ng/ml (>5.38)
[2022-05-07] MEDS: VENLAFAXINE HCL XR 75 MG CAPXR PO SCH (08:10)
[2022-05-07] MEDS: FUROSEMIDE 20 MG TAB PO SCH ×2 (08:10→17:08)
[2022-05-07 08:11] LABS: Vitamin B12 402 pg/ml (180-914)
--- NOTE | 2022-05-07 09:12 | Cardiology Consultation ---
Date of Consultation May 07, 2022 Assessment & Plan (1) Aortic stenosis: (2) (HFpEF) heart failure with preserved ejection fraction: (3) Pancytopenia: (4) Complete heart block: 1. Dyspnea: Likely related to pulmonary vascular congestion and her aortic valve stenosis. She is known to have preserved LV systolic function. Symptoms at rest and with little exertion are more suggestive of pulmonary edema than symptoms related directly to the valve. She apparently underwent a diuresi s yesterday that is not well represented in her record. Her lung examination is relatively benign and she certainly feeling better. She did receive an oral dose of Lasix this morning. She is scheduled for another oral dose this Evening. I think if she effect some diuresis and is feeling well later this afternoon she could conceivably be discharged on twice daily dosing of Lasix. Some of her dyspnea certainly related to morbid obesity and an element of anemia as well. 2. Aortic stenosis: Severe. She appears to be a reasonable candidate for TAVR. However, a PET scan is to be performed 1st in order to determine the stage of her multiple myeloma. 3. Coronary disease: She was noted to have some coronary disease, the most severe of which was in the mid right coronary. No current symptoms suggestive of coronary insufficiency. No intervention was performed. Will continue secondary prevention with her warfarin and moderate dose atorvastatin. 4. Complete heart block: Normally functioning dual-chamber permanent pacemaker. No arrhythmias identified on interrogation. 5. Elevated troponin: I do not think this is business development representative of an acute coronary syndrome. The trajectory has been quite stable. I do not think she requires any additional ischemic evaluation. History of Present Illness Attending Physician: Chris Nolan History of Present Illness The patient is an 82-year-old woman with a known history of nonobstructive coronary disease, complete heart block status post dual-chamber permanent pacemaker and severe aortic stenosis who presented with worsening dyspnea. Patient states that over the past few days she has had more difficulty breathing. Yesterday she arrived for an outpatient visit and was quite dyspneic. Based on the progressive in significant nature of her symptoms she was referred to the emergency room and admitted for concerns of congestive heart failure. Patient states that she does check her weight at home and it fluctuates 5 pounds and either direction fairly routinely. She has some lower extremity edema which she feels is chronic and unchanged. She did not report edema elsewhere. She has not had symptoms of chest discomfort and she denies dizziness or lightheadedness. Previously she was able to walk approximately 50 feet without becoming significantly short of breath. Now she has difficulty walking even a few steps. He in the emergency room she was administered an intravenous dose of diuretic which did cause diuresis. She states that her breathing is better this morning. She reports being ambulatory to her bathroom and back with minimal dyspnea. No dizziness. Patient was evaluated on May [address] [facility] for possible TAVR. While she is not felt to be a surgical candidate for aortic valve replacement, there still entertaining the possibility of a percutaneous approach. The current plan is to undergo a PET scan to determine the status of her multiple myeloma prior to proceeding with valve replacement. Allergies Allergy/AdvReac Type Severity Reaction Status Date / Time adhesive tape AdvReac Mild Skin rash Verified 03/12/22 11:20 Home Medications Medication Instructions Recorded Confirmed Type cholecalciferol (vitamin D3) 50 2,000 unit PO QAM tab 07/31/19 03/12/22 History mcg (2,000 unit) tablet amoxicillin 500 mg capsule 2,000 mg PO ONCE PRN #4 cap 08/01/19 03/12/22 History oxycodone 5 mg tablet 5 mg PO Q6H PRN #28 tab 08/01/19 03/12/22 History acyclovir 400 mg tablet 400 mg PO BID 11/20/19 03/12/22 History potassium phosphate, monobasic 500 500 mg PO DAILY tab 07/07/20 03/12/22 History mg soluble tablet (K-Phos Original) lenalidomide 10 mg capsule 10 mg PO DAILY cap 11/18/20 03/12/22 History (Revlimid) multivitamin 1 tab PO DAILY 03/06/21 03/12/22 History fluticasone propionate 50 1 spray INTRANASAL BID PRN #16 g 09/29/21 03/12/22 Rx mcg/actuation nasal spray,suspension (Flonase Allergy Relief) metformin 500 mg tablet,extended 1,000 mg PO QPM #180 tab 10/06/21 03/12/22 Rx release 24 hr venlafaxine 75 mg capsule,extended 75 mg PO QAM #30 cap 10/06/21 03/12/22 Rx release 24 hr loratadine 10 mg capsule 10 mg PO DAILY PRN #30 cap 11/02/21 03/12/22 Rx furosemide 20 mg tablet 20 mg PO QAM 12/26/21 03/12/22 History venlafaxine 150 mg 150 mg PO QPM #90 cap 12/30/21 03/12/22 Rx capsule,extended release 24 hr acetaminophen 650 mg 650 mg PO DAILY PRN tab 12/31/21 03/12/22 History tablet,extended release ascorbic acid (vitamin C) 500 mg 1,000 mg PO QAM tab 12/31/21 03/12/22 History tablet calcium carbonate 600 mg calcium 600 mg PO DAILY 12/31/21 03/12/22 History (1,500 mg) tablet (Calcium) cyanocobalamin (vitamin B-12) 500 1,000 mcg PO QAM tab 12/31/21 03/12/22 History mcg tablet triamcinolone acetonide 0.1 % 1 applic TOPICAL BID PRN g 12/31/21 03/12/22 History topical cream warfarin 1 mg tablet See Rx Instructions PO DAILY #15 01/08/22 03/12/22 Rx tab blood sugar diagnostic (OneTouch See Rx Instructions .ROUTE 01/18/22 03/12/22 Rx Ultra Test) .COMPLEX #100 strip atorvastatin 10 mg tablet 10 mg PO DAILY #90 tab 02/12/22 03/12/22 Rx warfarin 4 mg tablet See Rx Instructions .ROUTE 02/12/22 03/12/22 Rx .COMPLEX #180 tablet ketotifen fumarate 0.025 % (0.035 1 drp OPHTHALMIC (EYE) BID 03/01/22 03/12/22 History %) eye drops ([place]) psyllium husk (with sugar) 3.4 1 ea PO QAM #1 btl 03/06/22 03/12/22 Rx gram oral powder packet (Metamucil (with sugar)) nystatin 100,000 unit/gram topical 1 applic TOPICAL DAILY PRN #60 g 03/12/22 03/12/22 Rx powder Patient History Medical History (HFpEF) heart failure with preserved ejection fraction Anxiety Aortic stenosis Basal cell carcinoma face Cervical radiculopathy Degenerative disc disease Depression 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, type 2 NIDDM Endometrial intraepithelial neoplasia (EIN) Fracture, humerus Hemorrhoids History of seizure last seizure 1995 Hyperlipidemia Morbid obesity Myeloma Osteoarthritis 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; s/p surgery, radiation, chemo (receiving weekly oral/IV chemo Fridays + dexamethasone 40mg pretreatment prior to chemo) Positional vertigo Post herpetic neuralgia hx shingles Post-menopausal bleeding Sepsis Sleep apnea CPAP + 2 LPM O2 qhs Urinary leakage Surgical History H/O surgical biopsy Right distal humerus 11/21/18 History of appendectomy History of bilateral carpal tunnel release History of cataract surgery Bilateral History of cholecystectomy History of endometrial biopsy History of knee replacement procedure of left knee History of knee replacement procedure of right knee History of surgery right distal humerus replacement History of tonsillectomy S/P dilation and curettage S/P tooth extraction S/P tubal ligation Family History Mother , 89yo Myocardial infarction Congestive heart failure Father , Pt unsure of details of father's health history;Knows he had facial cancer Malignant neoplasm of oral cavity Sister , May 2019 of copd Diabetes Breast cancer Son Hypertension Grandmother Diabetes Denies family history of Prostate cancer Lung cancer Colorectal cancer Social History Smoking Status: Never smoker Second Hand Exposure: No; Hx Alcohol Use: No Hx Substance Use: No Preferred Language: Angolan Communication Ability: Effective Visual Impairment: No Limitations Hearing Ability: Normal Picture Painter Required: No Beliefs That Will Affect Care: None marital status: / Current Living Situation: Alone Current Living Situation Comment: family checks in current occupational status: 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 No recent fevers or chills. Last night she was able to sleep in a supine position with her CPAP. Physical Exam Physical Exam: She is alert and oriented x3. Mood affect appear normal. She answered all questions appropriately. Obese HEENT: Sclerae are anicteric. Pupils are equal and reactive to light and accommodation. Extraocular movements were intact. Neuro: Cranial nerves intact Neck: redundant tissue Lungs: Lungs are clear to auscultation bilaterally with some crackles at the bases bilaterally. Normal respiratory effort. No expiratory wheezing. Cardiac: The rhythm was regular. S1 and S2 were normal. Crescendo systolic murmur. The PMI was not markedly displaced on palpation. Extremities: Patient has bilateral radial pulses that are equal in intensity. There is no evidence cyanosis or clubbing. chronic lower extremity edema with trophic changes Skin: There are no rashes noted on examination today. Results & Data ([facility]) Vital Signs (Past 12 Hours) Vital Signs Temp Pulse Pulse Resp BP Pulse Ox Pulse Ox 05/07/22 07:21 36.6 C 79 18 110/67 98 05/07/22 03:39 36.9 C 79 20 106/69 98 05/07/22 02:28 84 21 98 05/07/22 00:57 79 05/07/22 00:56 91 H 05/06/22 23:16 82 23 97 05/06/22 22:21 36.5 C 83 20 138/83 99 05/06/22 21:19 36.5 C 83 20 135/83 99 99 Laboratory Results Abnormal Lab Results 05/06/22 05/06/22 05/06/22 16:30 16:30 16:30 WBC 2.88 L RBC 2.63 L Hgb 8.3 L Hct 26.9 L MCV 102.3 H MCH 31.6 MCHC 30.9 L RDW Std Deviation 66.5 H RDW Coeff of Giuseppe 18.3 H Plt Count 180 MPV 10.6 H Immature Gran % (Auto) 0.3 Neut % (Auto) 50.1 Lymph % (Auto) 18.1 Cecil % (Auto) 28.1 Eos % (Auto) 2.4 Baso % (Auto) 1.0 Neut # (Auto) 1.44 Lymph # (Auto) 0.52 L Cecil # (Auto) 0.81 H Eos # (Auto) 0.07 Baso # (Auto) 0.03 Immature Gran # (Auto) 0.01 Neutrophils % (Manual) Lymphocytes % (Manual) Monocytes % (Manual) Eosinophils % (Manual) Basophils % (Manual) Neutrophils # (Manual) Total Absolute Neuts Lymphocytes # (Manual) Total Abs Lymphocytes Monocytes # (Manual) Eosinophils # (Manual) Basophils # (Manual) Giant Platelets PT 19.3 H INR 1.9 H APTT 32.5 H PTT Ratio 1.2 Sodium 142 Potassium 4.3 Chloride 108 H Carbon Dioxide 28 Anion Gap 6 BUN 13 Creatinine 0.88 Est Cr Clr Drug Dosing 55.3 Est GFR ( Amer) 70.9 Est GFR (Non-Af Amer) 61.2 BUN/Creatinine Ratio 14.8 Glucose 103 H POC Glucose Estimat Average Glucose Hemoglobin A1c Calcium 8.7 Magnesium 2.0 Iron TIBC Unsaturated IBC Transferrin % Sat Ferritin Total Bilirubin 0.3 AST 11 L ALT 8 Alkaline Phosphatase 51 Troponin I High Sens 38.8 H B-Natriuretic Peptide Total Protein 6.3 Albumin 3.2 L Globulin 3.1 Albumin/Globulin Ratio 1.0 Vitamin B12 Folate TSH SARS-CoV-2, RNA, NAAT Blood Type Antibody Screen 05/06/22 05/06/22 05/06/22 16:30 16:36 18:46 WBC RBC Hgb Hct MCV MCH MCHC RDW Std Deviation RDW Coeff of Giuseppe Plt Count MPV Immature Gran % (Auto) Neut % (Auto) Lymph % (Auto) Cecil % (Auto) Eos % (Auto) Baso % (Auto) Neut # (Auto) Lymph # (Auto) Cecil # (Auto) Eos # (Auto) Baso # (Auto) Immature Gran # (Auto) Neutrophils % (Manual) Lymphocytes % (Manual) Monocytes % (Manual) Eosinophils % (Manual) Basophils % (Manual) Neutrophils # (Manual) Total Absolute Neuts Lymphocytes # (Manual) Total Abs Lymphocytes Monocytes # (Manual) Eosinophils # (Manual) Basophils # (Manual) Giant Platelets PT INR APTT PTT Ratio Sodium Potassium Chloride Carbon Dioxide Anion Gap BUN Creatinine Est Cr Clr Drug Dosing Est GFR ( Amer) Est GFR (Non-Af Amer) BUN/Creatinine Ratio Glucose POC Glucose Estimat Average Glucose Hemoglobin A1c Calcium Magnesium Iron TIBC Unsaturated IBC Transferrin % Sat Ferritin Total Bilirubin AST ALT Alkaline Phosphatase Troponin I High Sens B-Natriuretic Peptide 569 H Total Protein Albumin Globulin Albumin/Globulin Ratio Vitamin B12 Folate TSH SARS-CoV-2, RNA, NAAT NEGATIVE Blood Type A Negative Antibody Screen NEGATIVE 05/06/22 05/06/22 05/07/22 22:15 22:25 06:56 WBC 2.01 L RBC 2.41 L Hgb 7.7 L Hct 24.7 L MCV 102.5 H MCH 32.0 MCHC 31.2 L RDW Std Deviation 66.7 H RDW Coeff of Giuseppe 18.0 H Plt Count 172 MPV 10.3 Immature Gran % (Auto) Neut % (Auto) Lymph % (Auto) Cecil % (Auto) Eos % (Auto) Baso % (Auto) Neut # (Auto) Lymph # (Auto) Cecil # (Auto) Eos # (Auto) Baso # (Auto) Immature Gran # (Auto) Neutrophils % (Manual) 64.4 Lymphocytes % (Manual) 16.5 Monocytes % (Manual) 13.9 Eosinophils % (Manual) 4.3 Basophils % (Manual) 0.9 Neutrophils # (Manual) 1.29 L Total Absolute Neuts 1.29 L Lymphocytes # (Manual) 0.33 L Total Abs Lymphocytes 0.33 L Monocytes # (Manual) 0.28 Eosinophils # (Manual) 0.09 Basophils # (Manual) 0.02 Giant Platelets 1+ PT INR APTT PTT Ratio Sodium Potassium Chloride Carbon Dioxide Anion Gap BUN Creatinine Est Cr Clr Drug Dosing Est GFR ( Amer) Est GFR (Non-Af Amer) BUN/Creatinine Ratio Glucose POC Glucose 122 H Estimat Average Glucose Hemoglobin A1c Calcium Magnesium Iron TIBC Unsaturated IBC Transferrin % Sat Ferritin Total Bilirubin AST ALT Alkaline Phosphatase Troponin I High Sens 45.9 H B-Natriuretic Peptide Total Protein Albumin Globulin Albumin/Globulin Ratio Vitamin B12 Folate TSH SARS-CoV-2, RNA, NAAT Blood Type Antibody Screen 05/07/22 05/07/22 05/07/22 06:56 06:56 06:56 WBC RBC Hgb Hct MCV MCH MCHC RDW Std Deviation RDW Coeff of Giuseppe Plt Count MPV Immature Gran % (Auto) Neut % (Auto) Lymph % (Auto) Cecil % (Auto) Eos % (Auto) Baso % (Auto) Neut # (Auto) Lymph # (Auto) Cecil # (Auto) Eos # (Auto) Baso # (Auto) Immature Gran # (Auto) Neutrophils % (Manual) Lymphocytes % (Manual) Monocytes % (Manual) Eosinophils % (Manual) Basophils % (Manual) Neutrophils # (Manual) Total Absolute Neuts Lymphocytes # (Manual) Total Abs Lymphocytes Monocytes # (Manual) Eosinophils # (Manual) Basophils # (Manual) Giant Platelets PT 20.8 H INR 2.0 H APTT PTT Ratio Sodium 143 Potassium 3.7 Chloride 109 H Carbon Dioxide 28 Anion Gap 6 BUN 12 Creatinine 0.85 Est Cr Clr Drug Dosing 57.2 Est GFR ( Amer) 74.0 Est GFR (Non-Af Amer) 63.8 BUN/Creatinine Ratio 14.1 Glucose 89 POC Glucose Estimat Average Glucose 123 Hemoglobin A1c 5.9 H Calcium 8.0 L Magnesium 1.9 Iron 28 L TIBC 359 Unsaturated IBC 331 Transferrin % Sat 8 L Ferritin 15.0 Total Bilirubin AST ALT Alkaline Phosphatase Troponin I High Sens 45.3 H B-Natriuretic Peptide Total Protein Albumin Globulin Albumin/Globulin Ratio Vitamin B12 Folate TSH SARS-CoV-2, RNA, NAAT Blood Type Antibody Screen 05/07/22 05/07/22 05/07/22 06:56 06:56 07:36 WBC RBC Hgb Hct MCV MCH MCHC RDW Std Deviation RDW Coeff of Giuseppe Plt Count MPV Immature Gran % (Auto) Neut % (Auto) Lymph % (Auto) Cecil % (Auto) Eos % (Auto) Baso % (Auto) Neut # (Auto) Lymph # (Auto) Cecil # (Auto) Eos # (Auto) Baso # (Auto) Immature Gran # (Auto) Neutrophils % (Manual) Lymphocytes % (Manual) Monocytes % (Manual) Eosinophils % (Manual) Basophils % (Manual) Neutrophils # (Manual) Total Absolute Neuts Lymphocytes # (Manual) Total Abs Lymphocytes Monocytes # (Manual) Eosinophils # (Manual) Basophils # (Manual) Giant Platelets PT INR APTT PTT Ratio Sodium Potassium Chloride Carbon Dioxide Anion Gap BUN Creatinine Est Cr Clr Drug Dosing Est GFR ( Amer) Est GFR (Non-Af Amer) BUN/Creatinine Ratio Glucose POC Glucose 104 H Estimat Average Glucose Hemoglobin A1c Calcium Magnesium Iron TIBC Unsaturated IBC Transferrin % Sat Ferritin Total Bilirubin AST ALT Alkaline Phosphatase Troponin I High Sens B-Natriuretic Peptide Total Protein Albumin Globulin Albumin/Globulin Ratio Vitamin B12 402 Folate > 22.30 TSH 1.371 SARS-CoV-2, RNA, NAAT Blood Type Antibody Screen Diagnostic Findings chest x-ray obtained the time admission suggested central vascular congestion. Cardiac catheterization performed 03/05/2022: 70 percent RCA lesion without other obstructive coronary disease. I performed a device interrogation of her dual-chamber permanent pacemaker. No recent arrhythmias. Normal device function. PG Care Time/CCT Total # of Minutes Spent Total Time Spent with Patient: Total time spent is greater than 50% in coordination of care (as documented) at patient's floor/unit and/or counseling patient: Coding Level of Care Code 49474 Initial Inpt Care Lvl 3 Diagnoses Aortic stenosis I35.0 Cardiac valve disease etiology: nonrheumatic (HFpEF) heart failure with preserved ejection fraction I50.30 Pancytopenia D61.818 Complete heart block I44.2 (1) Aortic stenosis Cardiac valve disease etiology: nonrheumatic Qualified Code(s): I35.0 - Nonrheumatic aortic (valve) stenosis
[2022-05-07] MEDS ORDERED: FUROSEMIDE INJ 20 MG/2 ML VIAL IV ONE (10:24)
[2022-05-07] MEDS ORDERED: IRON SUCROSE 200 MG in 0.9 % SODIUM CHLORIDE 100 ML IV ONE (10:45)
--- NOTE | 2022-05-07 12:06 | Electrocardiogram Report ---
Test Reason : Blood Pressure : / mmHG Vent. Rate : 098 BPM Atrial Rate : 098 BPM P-R Int : 198 ms QRS Dur : 166 ms QT Int : 408 ms P-R-T Axes : 018 -83 092 degrees QTc Int : 520 ms Atrial-sensed ventricular-paced rhythm Abnormal ECG When compared with ECG of 01-MAR-2022 14:22, Vent. rate has increased BY 12 BPM Confirmed by Vinod Roberts ([id number]) on 05/07/2022 12:06:19 PM Referred By: REFERRED SELF Confirmed By:Vinod Roberts
--- NOTE | 2022-05-07 12:30 | Electrocardiogram Report ---
Test Reason : Blood Pressure : / mmHG Vent. Rate : 089 BPM Atrial Rate : 089 BPM P-R Int : 220 ms QRS Dur : 172 ms QT Int : 438 ms P-R-T Axes : 060 -76 108 degrees QTc Int : 532 ms Atrial-sensed ventricular-paced rhythm with prolonged AV conduction Abnormal ECG When compared with ECG of 06-MAY-2022 16:03, (unconfirmed) Vent. rate has decreased BY 9 BPM Confirmed by Vinod Roberts ([id number]) on 05/07/2022 12:29:41 PM Referred By: REFERRED SELF Confirmed By:Vinod Roberts
[2022-05-07] MEDS ORDERED: WARFARIN SOD 4 MG TAB PO SCH (16:00)
[2022-05-07] MEDS: WARFARIN SOD 4 MG TAB PO SCH (17:08)
[2022-05-07] MEDS: VENLAFAXINE HCL XR 150 MG CAPXR PO SCH (20:34)
--- NOTE | 2022-05-07 20:43 | Hospitalist Progress Note ---
Date of Service May 07, 2022 Assessment & Plan (1) (HFpEF) heart failure with preserved ejection fraction: Plan: acute/chronic diastolic CHF. decompensation 2nd to severe ? Last echo 02/2022 with preserved EF, severe aortic stenosis. Appreciate Dr Bethea's consultation. She is being evaluated for TAVR at [facility], but is awaiting PET scan on 05/19/2022-if her PET scan shows worsening of her myeloma, she has decided that she will not pursue TAVR. For acute decompensation - gave additional lasix 20mg IV x 1 this am with good diuresis. Change PO lasix to IV lasix 20mg BID. Re-eval in am. BMP am. (2) Aortic stenosis: Plan: Severe aortic stenosis. Awaiting possible TAVR in the future. Had recent cardiac catheterization which showed moderate nonobstructive CAD. Avoid excessive afterload reduction. (3) Pancytopenia: Plan: Secondary to antineoplastic therapy. TSH, B12, folate all wnl. Iron studies c/w iron deficiency with ferritin 15. Will give venofer 200mg IV x 1. If she tolerates will give 300mg tomorrow. (4) Myeloma: Plan: Ongoing, follows with Dr. Allen of [facility] oncology in [place]. Continue home Revlimid. She was due for Xgeva 2 days ago but did not get the shot due to her worsening CHF. Has upcoming PET scan 05/19/2022. (5) 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, type 2: Plan: Excellent control. Holding home metformin. NovoLog sliding scale. ADA diet. Accu-Cheks. HbA1C 5.9% - uncertain how accurate given her anemia. 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 INR 2 today Continue Coumadin 8 mg daily 9 mg on Sundays Follow INR every other day (12) Morbid obesity with BMI of 50.0-59.9, adult: Plan: BMI 50s Admission and Anticipated Discharge Date Admission Date: May 06, 2022 Subjective saw patient in the afternoon she reports her breathing is much better in comparison to this am has had copious UOP since this am the last time she ambulated to bathroom her dyspnea was better denies any chest pain I had correspondence with Dr Jorge Allen's office (oncology) and they advised IV venofer today for her iron def anemia tele overnight - paced Review of Systems Review of Systems: gen - no fevers, eating ok cv - no chest pain pulm - no coughing GI - no pain; c/o chronic diarrhea x 2-3 years Physical Exam Physical Exam: gen - morbidly obese, sitting at side of bed, NAD skin - pallor mouth - MMM neck - no obvious JVD sitting at 90 degrees heart - RRR, s1, s2 very hard to hear; 3/6 holosystolic murmur RUSB/apex lungs - faint b/l basilar rales, no wheeze abd - soft NT ND BS+ ext - trace edema, pulses 2+ b/l psych - a/o x 3 Results & Data Results & Data ([facility]) Vital Signs (Past 12 Hours) Vital Signs Temp Pulse Resp BP Pulse Ox 05/07/22 19:05 36.9 C 88 22 134/73 97 05/07/22 15:37 36.6 C 90 16 122/76 93 05/07/22 11:32 36.8 C 82 16 97/63 L 95 Laboratory Results Laboratory Results - last 24 hr 05/06/22 05/06/22 05/07/22 22:15 22:25 06:56 WBC 2.01 L RBC 2.41 L Hgb 7.7 L Hct 24.7 L MCV 102.5 H MCH 32.0 MCHC 31.2 L RDW Std Deviation 66.7 H RDW Coeff of Giuseppe 18.0 H Plt Count 172 MPV 10.3 Neutrophils % (Manual) 64.4 Lymphocytes % (Manual) 16.5 Monocytes % (Manual) 13.9 Eosinophils % (Manual) 4.3 Basophils % (Manual) 0.9 Neutrophils # (Manual) 1.29 L Total Absolute Neuts 1.29 L Lymphocytes # (Manual) 0.33 L Total Abs Lymphocytes 0.33 L Monocytes # (Manual) 0.28 Eosinophils # (Manual) 0.09 Basophils # (Manual) 0.02 Giant Platelets 1+ PT INR Sodium Potassium Chloride Carbon Dioxide Anion Gap BUN Creatinine Est Cr Clr Drug Dosing Est GFR ( Amer) Est GFR (Non-Af Amer) BUN/Creatinine Ratio Glucose POC Glucose 122 H Estimat Average Glucose Hemoglobin A1c Calcium Magnesium Iron TIBC Unsaturated IBC Transferrin % Sat Ferritin Troponin I High Sens 45.9 H Vitamin B12 Folate TSH Stl C. diff Tox B Gene 05/07/22 05/07/22 05/07/22 06:56 06:56 06:56 WBC RBC Hgb Hct MCV MCH MCHC RDW Std Deviation RDW Coeff of Giuseppe Plt Count MPV Neutrophils % (Manual) Lymphocytes % (Manual) Monocytes % (Manual) Eosinophils % (Manual) Basophils % (Manual) Neutrophils # (Manual) Total Absolute Neuts Lymphocytes # (Manual) Total Abs Lymphocytes Monocytes # (Manual) Eosinophils # (Manual) Basophils # (Manual) Giant Platelets PT 20.8 H INR 2.0 H Sodium 143 Potassium 3.7 Chloride 109 H Carbon Dioxide 28 Anion Gap 6 BUN 12 Creatinine 0.85 Est Cr Clr Drug Dosing 57.2 Est GFR ( Amer) 74.0 Est GFR (Non-Af Amer) 63.8 BUN/Creatinine Ratio 14.1 Glucose 89 POC Glucose Estimat Average Glucose 123 Hemoglobin A1c 5.9 H Calcium 8.0 L Magnesium 1.9 Iron 28 L TIBC 359 Unsaturated IBC 331 Transferrin % Sat 8 L Ferritin 15.0 Troponin I High Sens 45.3 H Vitamin B12 Folate TSH Stl C. diff Tox B Gene 05/07/22 05/07/22 05/07/22 06:56 06:56 07:36 WBC RBC Hgb Hct MCV MCH MCHC RDW Std Deviation RDW Coeff of Giuseppe Plt Count MPV Neutrophils % (Manual) Lymphocytes % (Manual) Monocytes % (Manual) Eosinophils % (Manual) Basophils % (Manual) Neutrophils # (Manual) Total Absolute Neuts Lymphocytes # (Manual) Total Abs Lymphocytes Monocytes # (Manual) Eosinophils # (Manual) Basophils # (Manual) Giant Platelets PT INR Sodium Potassium Chloride Carbon Dioxide Anion Gap BUN Creatinine Est Cr Clr Drug Dosing Est GFR ( Amer) Est GFR (Non-Af Amer) BUN/Creatinine Ratio Glucose POC Glucose 104 H Estimat Average Glucose Hemoglobin A1c Calcium Magnesium Iron TIBC Unsaturated IBC Transferrin % Sat Ferritin Troponin I High Sens Vitamin B12 402 Folate > 22.30 TSH 1.371 Stl C. diff Tox B Gene 05/07/22 05/07/22 05/07/22 11:36 11:45 16:24 WBC RBC Hgb Hct MCV MCH MCHC RDW Std Deviation RDW Coeff of Giuseppe Plt Count MPV Neutrophils % (Manual) Lymphocytes % (Manual) Monocytes % (Manual) Eosinophils % (Manual) Basophils % (Manual) Neutrophils # (Manual) Total Absolute Neuts Lymphocytes # (Manual) Total Abs Lymphocytes Monocytes # (Manual) Eosinophils # (Manual) Basophils # (Manual) Giant Platelets PT INR Sodium Potassium Chloride Carbon Dioxide Anion Gap BUN Creatinine Est Cr Clr Drug Dosing Est GFR ( Amer) Est GFR (Non-Af Amer) BUN/Creatinine Ratio Glucose POC Glucose 120 H 110 H Estimat Average Glucose Hemoglobin A1c Calcium Magnesium Iron TIBC Unsaturated IBC Transferrin % Sat Ferritin Troponin I High Sens Vitamin B12 Folate TSH Stl C. diff Tox B Gene Negative Cdiff Gene 05/07/22 20:40 WBC RBC Hgb Hct MCV MCH MCHC RDW Std Deviation RDW Coeff of Giuseppe Plt Count MPV Neutrophils % (Manual) Lymphocytes % (Manual) Monocytes % (Manual) Eosinophils % (Manual) Basophils % (Manual) Neutrophils # (Manual) Total Absolute Neuts Lymphocytes # (Manual) Total Abs Lymphocytes Monocytes # (Manual) Eosinophils # (Manual) Basophils # (Manual) Giant Platelets PT INR Sodium Potassium Chloride Carbon Dioxide Anion Gap BUN Creatinine Est Cr Clr Drug Dosing Est GFR ( Amer) Est GFR (Non-Af Amer) BUN/Creatinine Ratio Glucose POC Glucose 96 Estimat Average Glucose Hemoglobin A1c Calcium Magnesium Iron TIBC Unsaturated IBC Transferrin % Sat Ferritin Troponin I High Sens Vitamin B12 Folate TSH Stl C. diff Tox B Gene PG Care Time/CCT Total # of Minutes Spent Total Time Spent with Patient: Total time spent is greater than 50% in coordination of care (as documented) at patient's floor/unit and/or counseling patient: Coding Level of Care Code 26657 Subseq Hosp Care Lvl 2 Diagnoses (HFpEF) heart failure with preserved ejection fraction I50.30 Aortic stenosis I35.0 Cardiac valve disease etiology: etiology unspecified Pancytopenia D61.818 Myeloma C90.00 Multiple myeloma remission status: not in remission 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, type 2 E11.9 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 complication status: without complication 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: without correction use Depression F32.9 Active/Remission status: remission status unspecified Depression Type: major depressive disorder Major depression recurrence: unspecified whether recurrent Hyperlipidemia E78.5 Hyperlipidemia type: unspecified Sleep apnea G47.30 Pacemaker Z95.0 Plasmacytoma C90.30 Plasmacytoma active/remission status: not having achieved remission Plasmacytoma type: solitary plasmacytoma group home (current) use of anticoagulants Z79.01 Morbid obesity with BMI of 50.0-59.9, adult E66.01; Z68.43 (1) 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, type 2 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 complication status: without complication 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: without correction use Qualified Code(s): E11.9 - Type 2 diabetes mellitus without complications (2) Plasmacytoma Plasmacytoma active/remission status: not having achieved remission Plasmacytoma type: solitary plasmacytoma Qualified Code(s): C90.30 - 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 (3) Aortic stenosis Cardiac valve disease etiology: etiology unspecified Qualified Code(s): I35.0 - Nonrheumatic aortic (valve) stenosis (4) Depression Active/Remission status: remission status unspecified Depression Type: major depressive disorder Major depression recurrence: unspecified whether recurrent Qualified Code(s): F32.9 - Major depressive disorder, single episode, unspecified (5) Hyperlipidemia Hyperlipidemia type: unspecified Qualified Code(s): E78.5 - Hyperlipidemia, unspecified (6) Myeloma Multiple myeloma remission status: not in remission Qualified Code(s): C90.00 - Multiple myeloma not having achieved remission
[2022-05-08] MEDS: LOPERAMIDE HCL 2 MG CAP PO PRN ×2 (05:45→10:06)
[2022-05-08 07:15] LABS: Basophils # (auto) 0.02 K/uL (0-0.2); Eosinophils # (auto) 0.07 K/uL (0-0.5); Eosinophils % (auto) 3.5 %; Hematocrit (blood only) 24.9 % (37-47); Immature Granulocytes # (auto) 0.01 K/uL (0.00-0.02); Immature Granulocytes % (auto) 0.5 %; Lymphocytes # (auto) 0.45 K/uL (1.2-3.4); Lymphocytes % (auto) 22.3 %; Mean Corpuscular Hemoglobin 32.5 pg (25-34); Mean Corpuscular Hgb Conc 32.1 g/dL (32-36); Mean Corpuscular Volume 101.2 fL (80-100); Mean Platelet Volume 10.8 fL (7.4-10.4); Monocytes # (auto) 0.41 K/uL (0.11-0.59); Monocytes % (auto) 20.3 %; Neutrophils # (auto) 1.06 K/uL (1.4-6.5); Neutrophils % (auto) 52.4 %; Platelet Count 178 K/uL (130-400); RDW Coefficient of Variation 17.9 % (11.5-14.5); RDW Standard Deviation 66.6 fL (36.4-46.3); Red Blood Count 2.46 M/uL (4.2-5.4); White Blood Count 2.02 K/uL (4.8-10.8)
[2022-05-08 07:35] LABS: BUN Creatinine Ratio 17.4 (10-20); Calcium 7.7 mg/dl (8.5-10.1); Creatinine Clr Calc Pharmacy 52.8 ml/min; Est GFR (African American) 72.9 ml/min; Est GFR (Non-African American) 62.9 ml/min; Potassium 3.2 mmol/L (3.5-5.1)
[2022-05-08] MEDS: [UNRECOGNIZED DRUG - OTHER] PO SCH (08:25)
[2022-05-08] MEDS: LENALIDOMIDE PO SCH (08:25)
[2022-05-08] MEDS: ACYCLOVIR 400 MG TAB PO SCH ×2 (08:26→21:10)
[2022-05-08] MEDS: VENLAFAXINE HCL XR 75 MG CAPXR PO SCH (08:26)
[2022-05-08] MEDS: CYANOCOBALAMIN (B-12) 500 MCG TABLET PO SCH (08:26)
[2022-05-08] MEDS: ATORVASTATIN 10 MG TAB PO SCH (08:26)
[2022-05-08] MEDS: CHOLECALCIFEROL 1,000 UNITS 25 MCG TAB PO SCH (08:26)
[2022-05-08] MEDS: INSULIN ASPART PER UNIT SC SCH ×4 (08:40→21:14)
--- NOTE | 2022-05-08 09:43 | Cardiology Progress Note ---
Date of Service May 08, 2022 Assessment & Plan (1) (HFpEF) heart failure with preserved ejection fraction: (2) Aortic stenosis: (3) Cardiac pacemaker: Plan: 1. Congestive heart failure: Her heart failure appears to be improved based on weight and symptoms, although I still think she has some fluid overload based on exam. I would continue to diurese being cautious not to over diurese which could result in hypotension from her aortic stenosis if she would become fluid depleted. Her BUN and creatinine are still good so I do not think we are approaching that as yet. 2. Aortic stenosis: This will require a mechanical solution and I believe is planned as a TAVR. 3. Pacemaker: Her pacer appears to be functioning normally on telemetry and recent interrogation. Admission and Anticipated Discharge Date Admission Date: May 06, 2022 Subjective Chart reviewed and patient examined. In brief she is an 82-year-old woman with a history of nonobstructive coronary artery disease, complete heart block with a dual-chamber pacemaker in place, severe aortic stenosis and worsening shortness of breath. She was felt to be in congestive heart failure and was given diuretics. At the time of my evaluation she was sitting at her bedside and feeling relatively well. She still was having some shortness of breath with ambulation in the room. No chest discomfort, she did not seem to have orthopnea or PND. She did note that she has been urinating a lot both yesterday and today. Physical Exam Physical Exam: Constitutional: Alert, cooperative and in no distress. She is obese. HEENT: Unremarkable Neck: No jugular venous distention, carotid pulses are normal and equal bilaterally without bruits but a transmitted murmur is audible. Pulmonary: Diffuse crackles on auscultation bilaterally. Cardiac: Regular rhythm with a grade 3/6 crescendo decrescendo murmur, heard throughout the precordium but mostly at the base, no gallop or rub. Abdomen: Soft, nontender with normal bowel sounds. Extremities: Her legs are very firm and she has support stockings on, she does not have a lot of pitting edema but I believe does have edema. Neurologic: No focal findings. Gait was not tested. Skin: No rash, ecchymoses or petechiae. Results & Data ([facility]) Vital Signs (Past 12 Hours) Vital Signs Temp Pulse Pulse Resp BP Pulse Ox 05/08/22 07:30 36.7 C 84 20 102/68 99 05/08/22 07:22 88 05/08/22 04:01 87 24 99 05/08/22 03:28 36.5 C 91 H 16 104/64 98 05/07/22 23:51 36.4 C L 85 18 126/67 98 05/07/22 23:00 93 H 05/07/22 22:50 88 24 96 Laboratory Results CBC 05/08/22 Range/Units 06:35 WBC 2.02 L (4.8-10.8) K/uL RBC 2.46 L (4.2-5.4) M/uL Hgb 8.0 L (12.0-16.0) g/dL Hct 24.9 L (37-47) % Plt Count 178 (130-400) K/uL Neut # (Auto) 1.06 L (1.4-6.5) K/uL Lymph # (Auto) 0.45 L (1.2-3.4) K/uL [place] # (Auto) 0.41 (0.11-0.59) K/uL Eos # (Auto) 0.07 (0-0.5) K/uL Baso # (Auto) 0.02 (0-0.2) K/uL Comprehensive Metabolic Panel 05/08/22 Range/Units 06:35 Sodium 139 (136-145) mmol/L Potassium 3.2 L (3.5-5.1) mmol/L Chloride 105 (98-107) mmol/L Carbon Dioxide 27 (21-32) mmol/L BUN 15 (6-23) mg/dl Creatinine 0.86 (0.6-1.2) mg/dl Glucose 94 (70-99(Fasting)) mg/dl Calcium 7.7 L (8.5-10.1) mg/dl Intake and Output 05/07/22 05/08/22 05/08/22 22:59 06:59 14:59 Intake Total 320 / 580 Output Total 800 / 3302 Balance -480 / -2722 Intake: Oral 320 / 470 Output: Urine 800 / 3300 Other: Weight 107.9 kg Weight Measurement Method Standing Scale Diagnostic Findings Telemetry: Ventricular pacing throughout PG Care Time/CCT Total # of Minutes Spent Total Time Spent with Patient: Total time spent is greater than 50% in coordination of care (as documented) at patient's floor/unit and/or counseling patient: Coding Level of Care Code 05519 Subseq Hosp Care Lvl 3 Diagnoses (HFpEF) heart failure with preserved ejection fraction I50.33 Heart failure chronicity: acute on chronic Aortic stenosis I35.0 Cardiac valve disease etiology: nonrheumatic Cardiac pacemaker Z95.0 (1) (HFpEF) heart failure with preserved ejection fraction Heart failure chronicity: acute on chronic Qualified Code(s): I50.33 - Acute on chronic diastolic (congestive) heart failure (2) Aortic stenosis Cardiac valve disease etiology: nonrheumatic Qualified Code(s): I35.0 - Nonrheumatic aortic (valve) stenosis
[2022-05-08] MEDS: FUROSEMIDE INJ 20 MG/2 ML VIAL IV SCH ×2 (10:05→16:36)
[2022-05-08] MEDS: POTASSIUM CHLORIDE CRTAB 20 MEQ TABCR PO SCH ×3 (10:06→21:10)
[2022-05-08] MEDS ORDERED: IRON SUCROSE 300 MG in SODIUM CHLORIDE 0.9% 250 ML IV ONE (13:00)
[2022-05-08] MEDS ORDERED: COLESTIPOL HCL 1 GM TAB PO SCH (16:30)
[2022-05-08] MEDS: WARFARIN SOD 4 MG TAB PO SCH (16:36)
[2022-05-08] MEDS ORDERED: Nursing to Pharmacy Communication SCH (18:00)
--- NOTE | 2022-05-08 18:00 | XRay Report ---
XR knee LT 1 or 2V routine HISTORY: 82 years-old Female h/o TKR; s/p fall w/ pain; eval hardware left knee total joint arthropl asty COMPARISON: 05/13/2011 TECHNIQUE: 2 views of the left knee FINDINGS: Total joint arthroplasty with patellar resurfacing. No evidence of hardware complication, acute fract ure or dislocation. Arterial calcifications. Small joint effusion containing subcentimeter corticated ossifications. 1.4 cm corticated ossification along the lateral joint space. There is diffuse soft t issue prominence. IMPRESSION: 1. Diffuse soft tissue prominence without acute fracture or dislocation. 2. Unremarkable appearance of the total joint arthroplasty. ACT 112: Negative or not required by law. The above report was generated using voice recognition software. It may contain grammatical, syntax o r spelling errors. Electronically signed by: Zane Portillo M.D. 05/08/2022 5:59 PM
--- NOTE | 2022-05-08 21:09 | Hospitalist Progress Note ---
Date of Service May 08, 2022 Assessment & Plan (1) (HFpEF) heart failure with preserved ejection fraction: Plan: acute/chronic diastolic CHF. decompensation 2nd to severe ? Last echo 02/2022 with preserved EF, severe aortic stenosis. Appreciate cardiology consultation. She is being evaluated for TAVR at [facility], but is awaiting PET scan on 05/19/2022-if her PET scan shows worsening of her myeloma, she has decided that she will not pursue TAVR. For acute decompensation - cont lasix IV 20mg BID. She is still dyspneic with any movement thus still likely has some pulmonary edema. Vitals remain stable; although she fell she denies any dizziness/lightheadhess or any symptoms to suggest drop in preload. BMP am. (2) Aortic stenosis: Plan: Severe aortic stenosis. Awaiting possible TAVR in the future. Had recent cardiac catheterization which showed moderate nonobstructive CAD. Avoid excessive afterload reduction. (3) Pancytopenia: Plan: Secondary to antineoplastic therapy. TSH, B12, folate all wnl. Iron studies c/w iron deficiency with ferritin 15. s/p venofer 200mg IV x 1 on 05/07. Will give 300mg of venofer today. CBC am. (4) Myeloma: Plan: Ongoing, follows with Dr. Allen of [facility] oncology in [place]. Continue home Revlimid. She was due for Xgeva 2 days ago but did not get the shot due to her worsening CHF. Has upcoming PET scan 05/19/2022. (5) 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, type 2: Plan: Excellent control. Holding home metformin. NovoLog sliding scale. ADA diet. Accu-Cheks. HbA1C 5.9% - uncertain how accurate given her anemia. 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 Continue Coumadin 8 mg daily 9 mg on Sundays INR am (12) Morbid obesity with BMI of 50.0-59.9, adult: Plan: BMI low 50s (13) Fall: Plan: x-rays L knee without hardware compromise fortunately no fractures or other injuries from this fall patient reminded to call nurse when attempting to ambulate will place PT/OT consults Admission and Anticipated Discharge Date Admission Date: May 06, 2022 Subjective despite copious diuresis she still has dyspnea on exertion -- improved from admission, but still present during my visit I removed her NC O2 - for 5+ minutes her sats were about 94% in room air minimal cough good appetite denies chest pain shortly after my bedside visit I was contacted by nursing that patient had a fall after she had stood up from the side of the bed she landed on her left knee and hit the left elbow did NOT hit her head did NOT have loss of consciousness or syncope came back to reassess her b/l shoulders with full ROM and no signs of trauma b/l elbows with full ROM and no signs of trauma b/l hips with full ROM and no tenderness left knee - TKR scar present; mild erythema from fall present over anterior superior aspect of knee; with passive flexion/extension of L knee she reported pain; hardware "clunking" noted with passive ROM; right knee with THR scar; no pain with passive ROM of right knee b/l ankles without pain or signs of trauma Review of Systems Review of Systems: gen - no fever cv - no cp pulm - minimal cough; no wheezing; ongoing mild FULTON but improving from admission GI - no abd pain, nausea or emesis Physical Exam Physical Exam: gen - morbidly obese, sitting at side of bed, NAD skin - pallor mouth - MMM neck - no obvious JVD sitting at 90 degrees heart - RRR, s1, s2 very hard to hear; 3/6 holosystolic murmur RUSB/apex lungs - scant b/l basilar rales, no wheeze, good airation abd - soft NT ND BS+ ext - trace edema, pulses 2+ b/l psych - a/o x 3 on 2nd visit - musculoskeletal exam - b/l shoulders with full ROM and no signs of trauma b/l elbows with full ROM and no signs of trauma b/l hips with full ROM and no tenderness left knee - TKR scar present; mild erythema from fall present over anterior superior aspect of knee; with passive flexion/extension of L knee she reported pain; hardware "clunking" noted with passive ROM; right knee with THR scar; no pain with passive ROM of right knee b/l ankles without pain or signs of trauma Results & Data Results & Data ([facility]) Vital Signs (Past 12 Hours) Vital Signs Temp Pulse Pulse Resp BP Pulse Ox 05/08/22 19:20 36.7 C 90 18 110/74 95 05/08/22 16:33 93 H 129/80 93 05/08/22 16:01 84 05/08/22 15:21 36.6 C 84 20 97/59 L 98 05/08/22 14:19 36.4 C L 73 18 93/65 L 96 05/08/22 13:36 36.4 C L 82 18 89/60 L 94 05/08/22 11:30 36.6 C 73 20 125/80 99 Laboratory Results Laboratory Results - last 24 hr 05/08/22 05/08/22 05/08/22 06:35 06:35 07:39 WBC 2.02 L RBC 2.46 L Hgb 8.0 L Hct 24.9 L MCV 101.2 H MCH 32.5 MCHC 32.1 RDW Std Deviation 66.6 H RDW Coeff of Giuseppe 17.9 H Plt Count 178 MPV 10.8 H Immature Gran % (Auto) 0.5 Neut % (Auto) 52.4 Lymph % (Auto) 22.3 Weakley % (Auto) 20.3 Eos % (Auto) 3.5 Baso % (Auto) 1.0 Neut # (Auto) 1.06 L Lymph # (Auto) 0.45 L Weakley # (Auto) 0.41 Eos # (Auto) 0.07 Baso # (Auto) 0.02 Immature Gran # (Auto) 0.01 Sodium 139 Potassium 3.2 L Chloride 105 Carbon Dioxide 27 Anion Gap 7 BUN 15 Creatinine 0.86 Est Cr Clr Drug Dosing 52.8 Est GFR ( Amer) 72.9 Est GFR (Non-Af Amer) 62.9 BUN/Creatinine Ratio 17.4 Glucose 94 POC Glucose 99 Calcium 7.7 L 05/08/22 05/08/22 05/08/22 11:23 16:40 20:38 WBC RBC Hgb Hct MCV MCH MCHC RDW Std Deviation RDW Coeff of Giuseppe Plt Count MPV Immature Gran % (Auto) Neut % (Auto) Lymph % (Auto) Weakley % (Auto) Eos % (Auto) Baso % (Auto) Neut # (Auto) Lymph # (Auto) Weakley # (Auto) Eos # (Auto) Baso # (Auto) Immature Gran # (Auto) Sodium Potassium Chloride Carbon Dioxide Anion Gap BUN Creatinine Est Cr Clr Drug Dosing Est GFR ( Amer) Est GFR (Non-Af Amer) BUN/Creatinine Ratio Glucose POC Glucose 106 H 110 H 110 H Calcium Diagnostic Findings Knee X-Ray 05/08/22 16:56 XR knee LT 1 or 2V routine HISTORY: 82 years-old Female h/o TKR; s/p fall w/ pain; eval hardware left knee total joint arthroplasty COMPARISON: 05/13/2011 TECHNIQUE: 2 views of the left knee FINDINGS: Total joint arthroplasty with patellar resurfacing. No evidence of hardware complication, acute fracture or dislocation. Arterial calcifications. Small joint effusion containing subcentimeter corticated ossifications. 1.4 cm corticated ossification along the lateral joint space. There is diffuse soft tissue prominence. IMPRESSION: 1. Diffuse soft tissue prominence without acute fracture or dislocation. 2. Unremarkable appearance of the total joint arthroplasty. ACT 112: Negative or not required by law. The above report was generated using voice recognition software. It may contain grammatical, syntax or spelling errors. Electronically signed by: Zane Portillo M.D. 05/08/2022 5:59 PM PG Care Time/CCT Total # of Minutes Spent Total Time Spent with Patient: Total time spent is greater than 50% in coordination of care (as documented) at patient's floor/unit and/or counseling patient: Coding Level of Care Code 10318 Subseq Hosp Care Lvl 3 Diagnoses (HFpEF) heart failure with preserved ejection fraction I50.33 Heart failure chronicity: acute on chronic Aortic stenosis I35.0 Cardiac valve disease etiology: etiology unspecified Pancytopenia D61.818 Myeloma C90.00 Multiple myeloma remission status: not in remission 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, type 2 E11.9 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 complication status: without complication 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: without termite renewal inspector use Depression F32.9 Active/Remission status: remission status unspecified Depression Type: major depressive disorder Major depression recurrence: unspecified whether recurrent Hyperlipidemia E78.5 Hyperlipidemia type: unspecified Sleep apnea G47.30 Pacemaker Z95.0 Plasmacytoma C90.30 Plasmacytoma active/remission status: not having achieved remission Plasmacytoma type: solitary plasmacytoma retirement (current) use of anticoagulants Z79.01 Morbid obesity with BMI of 50.0-59.9, adult E66.01; Z68.43 Fall W19.XXXA (1) 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, type 2 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 complication status: without complication 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: without termite renewal inspector use Qualified Code(s): E11.9 - Type 2 diabetes mellitus without complications (2) (HFpEF) heart failure with preserved ejection fraction Heart failure chronicity: acute on chronic Qualified Code(s): I50.33 - Acute on chronic diastolic (congestive) heart failure (3) Plasmacytoma Plasmacytoma active/remission status: not having achieved remission Plasmacytoma type: solitary plasmacytoma Qualified Code(s): C90.30 - 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 (4) Aortic stenosis Cardiac valve disease etiology: etiology unspecified Qualified Code(s): I35.0 - Nonrheumatic aortic (valve) stenosis (5) Depression Active/Remission status: remission status unspecified Depression Type: major depressive disorder Major depression recurrence: unspecified whether recurrent Qualified Code(s): F32.9 - Major depressive disorder, single episode, unspecified (6) Hyperlipidemia Hyperlipidemia type: unspecified Qualified Code(s): E78.5 - Hyperlipidemia, unspecified (7) Myeloma Multiple myeloma remission status: not in remission Qualified Code(s): C90.00 - Multiple myeloma not having achieved remission
[2022-05-08] MEDS: VENLAFAXINE HCL XR 150 MG CAPXR PO SCH (21:10)
[2022-05-08] MEDS: COLESTIPOL HCL 1 GM TAB PO SCH (21:10)
[2022-05-09 08:15] LABS: INR 2.9 (0.9-1.1); Prothrombin Time 28.7 Seconds (9.0-12.0)
[2022-05-09 08:28] LABS: Hematocrit (blood only) 29.2 % (37-47); Hemoglobin 8.9 g/dL (12.0-16.0); Mean Corpuscular Hemoglobin 30.9 pg (25-34); Mean Corpuscular Hgb Conc 30.5 g/dL (32-36); Mean Corpuscular Volume 101.4 fL (80-100); Mean Platelet Volume 11.2 fL (7.4-10.4); Platelet Count 230 K/uL (130-400); RDW Standard Deviation 66.9 fL (36.4-46.3); Red Blood Count 2.88 M/uL (4.2-5.4); White Blood Count 2.35 K/uL (4.8-10.8)
[2022-05-09] MEDS: INSULIN ASPART PER UNIT SC SCH ×4 (08:39→21:05)
[2022-05-09] MEDS: CYANOCOBALAMIN (B-12) 500 MCG TABLET PO SCH (08:40)
[2022-05-09] MEDS: ATORVASTATIN 10 MG TAB PO SCH (08:40)
[2022-05-09] MEDS: CHOLECALCIFEROL 1,000 UNITS 25 MCG TAB PO SCH (08:40)
[2022-05-09] MEDS: ACYCLOVIR 400 MG TAB PO SCH ×2 (08:40→20:02)
[2022-05-09] MEDS: VENLAFAXINE HCL XR 75 MG CAPXR PO SCH (08:40)
[2022-05-09] MEDS: LENALIDOMIDE PO SCH (08:41)
[2022-05-09] MEDS: [UNRECOGNIZED DRUG - OTHER] PO SCH (08:41)
[2022-05-09] MEDS: POTASSIUM CHLORIDE CRTAB 20 MEQ TABCR PO SCH (08:44)
[2022-05-09 09:04] LABS: BUN Creatinine Ratio 16.8 (10-20); Creatinine Clr Calc Pharmacy 48.3 ml/min; Est GFR (African American) 64.6 ml/min; Est GFR (Non-African American) 55.8 ml/min; Magnesium 1.9 mg/dl (1.7-2.4); Potassium 3.9 mmol/L (3.5-5.1)
[2022-05-09] MEDS ORDERED: FUROSEMIDE INJ 20 MG/2 ML VIAL IV ONE ×2 (09:16→16:36)
[2022-05-09] MEDS ORDERED: IRON SUCROSE 300 MG in SODIUM CHLORIDE 0.9% 250 ML IV ONE (09:30)
--- NOTE | 2022-05-09 09:50 | Cardiology Progress Note ---
Date of Service May 09, 2022 Assessment & Plan (1) (HFpEF) heart failure with preserved ejection fraction: (2) Aortic stenosis: (3) Cardiac pacemaker: Plan: 1. Congestive heart failure: Her heart failure appears to be improved overall based on weight and symptoms since admission, however she is still short of breath with activity (which may never fully correct) but if correct her weight is up 2 kg today as well. Her creatinine has not increased. I would continue to diurese being cautious not to over diurese which could result in hypotension from her aortic stenosis if she would become fluid depleted. 2. Aortic stenosis: This will require a mechanical solution and I believe is planned as a TAVR pending some further studies. 3. Pacemaker: Her pacer appears to be functioning normally on telemetry and recent interrogation. Admission and Anticipated Discharge Date Admission Date: May 06, 2022 Subjective She is sitting on the side of her bed today. She is not short of breath at rest, she tells me that when she walks (recently going to the bathroom) that she is "huffing and puffing". I cannot tell if it is better or not. She tells me she is not urinating very much today. Physical Exam Physical Exam: Constitutional: Alert, cooperative and in no distress. She is obese. HEENT: Unremarkable Neck: No jugular venous distention, carotid pulses are normal and equal bilaterally without bruits but a transmitted murmur is audible. Pulmonary: Diffuse crackles on auscultation bilaterally. Cardiac: Regular rhythm with a grade 3/6 crescendo decrescendo murmur, heard throughout the precordium but mostly at the base, no gallop or rub. Abdomen: Soft, nontender with normal bowel sounds. Extremities: Her legs are very firm and she has support stockings on, she does not have a lot of pitting edema but I believe does have edema. Neurologic: No focal findings. Gait was not tested. Skin: No rash, ecchymoses or petechiae. Results & Data ([facility]) Vital Signs (Past 12 Hours) Vital Signs Temp Pulse Pulse Resp BP Pulse Ox 05/09/22 08:38 36.6 C 94 H 18 101/68 93 05/09/22 07:19 80 05/09/22 03:40 36.4 C L 83 18 114/76 98 05/09/22 02:32 86 21 98 05/08/22 23:17 36.7 C 88 18 100/66 100 05/08/22 23:00 110 H 05/08/22 22:16 89 23 99 Laboratory Results Coagulation 05/09/22 Range/Units 07:13 PT 28.7 H (9.0-12.0) Seconds CBC 05/09/22 Range/Units 07:13 WBC 2.35 L (4.8-10.8) K/uL RBC 2.88 L (4.2-5.4) M/uL Hgb 8.9 L (12.0-16.0) g/dL Hct 29.2 L (37-47) % Plt Count 230 (130-400) K/uL Comprehensive Metabolic Panel 05/09/22 Range/Units 07:13 Sodium 140 (136-145) mmol/L Potassium 3.9 D (3.5-5.1) mmol/L Chloride 106 (98-107) mmol/L Carbon Dioxide 27 (21-32) mmol/L BUN 16 (6-23) mg/dl Creatinine 0.95 (0.6-1.2) mg/dl Glucose 94 (70-99(Fasting)) mg/dl Calcium 8.0 L (8.5-10.1) mg/dl Intake and Output 05/08/22 05/09/22 05/09/22 22:59 06:59 14:59 Intake Total 465 / 1060 300 / 1060 Output Total 500 / 1150 Balance -35 / -90 300 / -90 Intake: IV 265 / 265 Iron Sucrose 300 mg In Sodium 265 / 265 Chloride 0.9% 250 ml @ 176.667 mls/hr IV 1300 ONE Rx#:[id number] Oral 200 / 795 300 / 795 Output: Urine 500 / 1150 Other: Weight 109.8 kg Weight Measurement Method Built in [facility] Diagnostic Findings Telemetry: Pacing consistently PG Care Time/CCT Total # of Minutes Spent Total Time Spent with Patient: Total time spent is greater than 50% in coordination of care (as documented) at patient's floor/unit and/or counseling patient: Coding Level of Care Code 77279 Subseq Hosp Care Lvl 2 Diagnoses (HFpEF) heart failure with preserved ejection fraction I50.33 Heart failure chronicity: acute on chronic Aortic stenosis I35.0 Cardiac valve disease etiology: etiology unspecified Cardiac pacemaker Z95.0 (1) (HFpEF) heart failure with preserved ejection fraction Heart failure chronicity: acute on chronic Qualified Code(s): I50.33 - Acute on chronic diastolic (congestive) heart failure (2) Aortic stenosis Cardiac valve disease etiology: etiology unspecified Qualified Code(s): I35.0 - Nonrheumatic aortic (valve) stenosis
[2022-05-09] MEDS ORDERED: WARFARIN SOD 1 MG TAB PO SCH (16:00)
[2022-05-09] MEDS ORDERED: POTASSIUM CHLORIDE CRTAB 20 MEQ TABCR PO STA (16:36)
[2022-05-09] MEDS: WARFARIN SOD 4 MG TAB PO SCH (16:51)
[2022-05-09] MEDS: FUROSEMIDE INJ 20 MG/2 ML VIAL IV SCH (17:41)
[2022-05-09] MEDS: VENLAFAXINE HCL XR 150 MG CAPXR PO SCH (20:04)
--- NOTE | 2022-05-09 20:14 | Hospitalist Progress Note ---
Date of Service May 09, 2022 Assessment & Plan (1) (HFpEF) heart failure with preserved ejection fraction: Plan: acute/chronic diastolic CHF. decompensation 2nd to severe ? Last echo 02/2022 with preserved EF, severe aortic stenosis. IMPROVING volume status. Weights continue to fall. Appreciate cardiology consultation. She is being evaluated for TAVR at [facility], but is awaiting PET scan on 05/19/2022-if her PET scan shows worsening of her myeloma, she has decided that she will not pursue TAVR. For acute decompensation - cont lasix IV 20mg BID. She is still dyspneic with exertion thus still likely has some pulmonary edema. Vitals remain stable; although she fell she denies any dizziness/lightheadedhess or any symptoms to suggest drop in preload. BMP am. Of note - she just had CT chest/abd/pelvis imaging in preparation for TAVR at [facility] about 1 week ago. I received those CT reports. CT chest showed mild pulm edema and trace effusions. Mild basilar scarring also seen but nothing else to account for dyspnea. (2) Aortic stenosis: Plan: Severe aortic stenosis. Awaiting possible TAVR in the future. Had recent cardiac catheterization which showed moderate nonobstructive CAD. Avoid excessive afterload reduction. (3) Pancytopenia: Plan: Secondary to antineoplastic therapy. TSH, B12, folate all wnl. Iron studies c/w iron deficiency with ferritin 15. s/p venofer 200mg IV x 1 on 05/07. s/p 300mg of venofer 05/08. s/p 300mg of venofer today. CBC am for stability. (4) Myeloma: Plan: Ongoing, follows with Dr. Allen of [facility] oncology in [place]. Continue home Revlimid. She was due for Xgeva 2 days ago but did not get the shot due to her worsening CHF. Has upcoming PET scan 05/19/2022. (5) 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, type 2: Plan: Excellent control. Holding home metformin. NovoLog sliding scale. ADA diet. Accu-Cheks. HbA1C 5.9% - uncertain how accurate given her anemia. 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 cont colestipol beyond discharge Plan: family updated at bedside progressing Admission and Anticipated Discharge Date Admission Date: May 06, 2022 Subjective patient remains with stable O2 sats in RA however, still having FULTON no dyspnea at rest during my visit his [id number] and brother were present she walked in the room while they were present and watched her breathing she did have FULTON, but her brother stated it was better than previous minimal cough no dizziness/lightheadedness she states the colestipol has worked very well for chronic diarrhea Review of Systems Review of Systems: gen - no fevers; eating well cv - no chest pain pulm - FULTON only GI - no abd pain musculo - left knee feeling fine today and ambulating w/o difficulty on it (s/p fall yesterday) Physical Exam Physical Exam: gen - morbidly obese, sitting in chair, NAD skin - pallor mouth - MMM neck - maybe mild JVD sitting at 90 degrees heart - RRR, s1, s2 very hard to hear; 3/6 holosystolic murmur RUSB/apex lungs - scant b/l basilar rales, no wheeze, good airation abd - soft NT ND BS+ ext - trace-1+ edema (Firm/hard chronic-appearing edema) b/l, pulses 2+ b/l psych - a/o x 3 Results & Data Results & Data ([place]) Vital Signs (Past 12 Hours) Vital Signs Temp Pulse Pulse Resp BP Pulse Ox 06/26/22 20:07 36.9 C 91 H 18 127/84 96 05/09/22 16:07 36.7 C 91 H 83 18 109/71 96 05/09/22 11:40 94 H 110/73 05/09/22 11:00 36.7 C 89 18 103/68 95 05/09/22 08:38 36.6 C 94 H 18 101/68 93 Laboratory Results Laboratory Results - last 24 hr 05/08/22 05/09/22 05/09/22 20:38 07:13 07:13 WBC 2.35 L RBC 2.88 L Hgb 8.9 L Hct 29.2 L MCV 101.4 H MCH 30.9 MCHC 30.5 L RDW Std Deviation 66.9 H RDW Coeff of Giuseppe 18.0 H Plt Count 230 MPV 11.2 H PT INR Sodium 140 Potassium 3.9 D Chloride 106 Carbon Dioxide 27 Anion Gap 7 BUN 16 Creatinine 0.95 Est Cr Clr Drug Dosing 48.3 Est GFR ( Amer) 64.6 Est GFR (Non-Af Amer) 55.8 BUN/Creatinine Ratio 16.8 Glucose 94 POC Glucose 110 H Calcium 8.0 L Magnesium 1.9 05/09/22 05/09/22 05/09/22 07:13 07:21 11:29 WBC RBC Hgb Hct MCV MCH MCHC RDW Std Deviation RDW Coeff of Giuseppe Plt Count MPV PT 28.7 H INR 2.9 H Sodium Potassium Chloride Carbon Dioxide Anion Gap BUN Creatinine Est Cr Clr Drug Dosing Est GFR ( Amer) Est GFR (Non-Af Amer) BUN/Creatinine Ratio Glucose POC Glucose 110 H 111 H Calcium Magnesium 05/09/22 16:34 WBC RBC Hgb Hct MCV MCH MCHC RDW Std Deviation RDW Coeff of Giuseppe Plt Count MPV PT INR Sodium Potassium Chloride Carbon Dioxide Anion Gap BUN Creatinine Est Cr Clr Drug Dosing Est GFR ( Amer) Est GFR (Non-Af Amer) BUN/Creatinine Ratio Glucose POC Glucose 112 H Calcium Magnesium PG Care Time/CCT Total # of Minutes Spent Total Time Spent with Patient: Total time spent is greater than 50% in coordination of care (as documented) at patient's floor/unit and/or counseling patient: Coding Level of Care Code 39136 Subseq Hosp Care Lvl 2 Diagnoses (HFpEF) heart failure with preserved ejection fraction I50.33 Heart failure chronicity: acute on chronic Aortic stenosis I35.0 Cardiac valve disease etiology: etiology unspecified Pancytopenia D61.818 Myeloma C90.00 Multiple myeloma remission status: not in remission 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, type 2 E11.9 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 complication status: without complication 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 [facility] insulin use: without [facility] use Depression F32.9 Active/Remission status: remission status unspecified Depression Type: major depressive disorder Major depression recurrence: unspecified whether recurrent Hyperlipidemia E78.5 Hyperlipidemia type: unspecified Sleep apnea G47.30 Pacemaker Z95.0 Plasmacytoma C90.30 Plasmacytoma active/remission status: not having achieved remission Plasmacytoma type: solitary plasmacytoma detention (current) use of anticoagulants Z79.01 Morbid obesity with BMI of 50.0-59.9, adult E66.01; Z68.43 Fall W19.XXXA Chronic diarrhea K52.9 (1) 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, type 2 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 complication status: without complication 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 terminal 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 insulin use: without [facility] use Qualified Code(s): E11.9 - Type 2 diabetes mellitus without complications (2) (HFpEF) heart failure with preserved ejection fraction Heart failure chronicity: acute on chronic Qualified Code(s): I50.33 - Acute on chronic diastolic (congestive) heart failure (3) Plasmacytoma Plasmacytoma active/remission status: not having achieved remission Plasmacytoma type: solitary plasmacytoma Qualified Code(s): C90.30 - 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 (4) Aortic stenosis Cardiac valve disease etiology: etiology unspecified Qualified Code(s): I35.0 - Nonrheumatic aortic (valve) stenosis (5) Depression Active/Remission status: remission status unspecified Depression Type: major depressive disorder Major depression recurrence: unspecified whether recurrent Qualified Code(s): F32.9 - Major depressive disorder, single episode, unspecified (6) Hyperlipidemia Hyperlipidemia type: unspecified Qualified Code(s): E78.5 - Hyperlipidemia, unspecified (7) Myeloma Multiple myeloma remission status: not in remission Qualified Code(s): C90.00 - Multiple myeloma not having achieved remission
[2022-05-09] MEDS: COLESTIPOL HCL 1 GM TAB PO SCH (21:05)
[2022-05-10 07:20] LABS: Hematocrit (blood only) 27.1 % (37-47); Hemoglobin 8.6 g/dL (12.0-16.0); Mean Corpuscular Hemoglobin 32.1 pg (25-34); Mean Corpuscular Hgb Conc 31.7 g/dL (32-36); Mean Corpuscular Volume 101.1 fL (80-100); Mean Platelet Volume 10.9 fL (7.4-10.4); Platelet Count 209 K/uL (130-400); RDW Coefficient of Variation 18.2 % (11.5-14.5); RDW Standard Deviation 67.3 fL (36.4-46.3); Red Blood Count 2.68 M/uL (4.2-5.4); White Blood Count 2.15 K/uL (4.8-10.8)
[2022-05-10 07:35] LABS: INR 2.6 (0.9-1.1); Prothrombin Time 26.5 Seconds (9.0-12.0)
[2022-05-10 07:49] LABS: Calcium 7.6 mg/dl (8.5-10.1); Creatinine Clr Calc Pharmacy 49.6 ml/min; Est GFR (African American) 68.1 ml/min; Est GFR (Non-African American) 58.8 ml/min; Potassium 3.8 mmol/L (3.5-5.1)
[2022-05-10] MEDS: ACYCLOVIR 400 MG TAB PO SCH ×2 (08:17→20:47)
[2022-05-10] MEDS: CHOLECALCIFEROL 1,000 UNITS 25 MCG TAB PO SCH (08:17)
[2022-05-10] MEDS: CYANOCOBALAMIN (B-12) 500 MCG TABLET PO SCH (08:17)
[2022-05-10] MEDS: POTASSIUM CHLORIDE CRTAB 20 MEQ TABCR PO SCH (08:18)
[2022-05-10] MEDS: FUROSEMIDE INJ 20 MG/2 ML VIAL IV SCH ×2 (08:18→17:06)
[2022-05-10] MEDS: ATORVASTATIN 10 MG TAB PO SCH (08:18)
[2022-05-10] MEDS: [UNRECOGNIZED DRUG - OTHER] PO SCH (08:19)
[2022-05-10] MEDS: LENALIDOMIDE PO SCH (08:19)
[2022-05-10] MEDS: INSULIN ASPART PER UNIT SC SCH ×4 (08:19→20:47)
[2022-05-10] MEDS: VENLAFAXINE HCL XR 75 MG CAPXR PO SCH (08:23)
[2022-05-10] MEDS: WARFARIN SOD 4 MG TAB PO SCH (17:06)
--- NOTE | 2022-05-10 18:26 | Cardiology Progress Note ---
Date of Service May 10, 2022 Assessment & Plan (1) (HFpEF) heart failure with preserved ejection fraction: (2) Aortic stenosis: (3) Cardiac pacemaker: Plan: 1. Congestive heart failure: she had an extensive diuresis yesterday. She seems to be doing well on twice daily dosing of Lasix. It is unclear if her symptoms will improve much until she has her valve replacement. Summer symptoms could simply related to aortic stenosis as well. She is ambulatory and has home support, I think we should make some effort towards getting her home while she awaits her scan next week and eventual valve replacement. 2. Aortic stenosis: Already evaluated. Awaiting PET scan were overall prognosis with respect to myeloma. 3. Pacemaker: Her pacer appears to be functioning normally on telemetry and recent interrogation. Admission and Anticipated Discharge Date Admission Date: May 06, 2022 Subjective this afternoon the patient claims to be feeling well. She still does have an element of dyspnea after ambulating to the bathroom. She denies dizziness or chest pain. She also has some concerns about chronic diarrhea. Review of Systems Review of Systems: Per HPI Physical Exam Physical Exam: She is alert and oriented x3. Mood affect appear normal. She answered all questions appropriately. Obese HEENT: Sclerae are anicteric. Pupils are equal and reactive to light and accommodation. Extraocular movements were intact. Neuro: Cranial nerves intact Lungs: normal respiratory effort Cardiac: The rhythm was regular. S1 and S2 were normal. Crescendo systolic murmur. The PMI was not markedly displaced on palpation. Extremities: Patient has bilateral radial pulses that are equal in intensity. There is no evidence cyanosis or clubbing. chronic lower extremity edema with trophic changes Skin: There are no rashes noted on examination today. Results & Data ([facility]) Vital Signs (Past 12 Hours) Vital Signs Temp Pulse Resp BP Pulse Ox 05/10/22 16:39 37.0 C 91 H 18 99/65 L 94 05/10/22 11:49 93 05/10/22 11:09 36.7 C 86 17 94/57 L 96 05/10/22 07:56 36.7 C 92 H 19 101/67 94 Laboratory Results Abnormal Lab Results 05/09/22 05/10/22 05/10/22 20:21 06:37 06:37 WBC 2.15 L RBC 2.68 L Hgb 8.6 L Hct 27.1 L MCV 101.1 H MCH 32.1 MCHC 31.7 L RDW Std Deviation 67.3 H RDW Coeff of Giuseppe 18.2 H Plt Count 209 MPV 10.9 H PT 26.5 H INR 2.6 H Sodium Potassium Chloride Carbon Dioxide Anion Gap BUN Creatinine Est Cr Clr Drug Dosing Est GFR ( Amer) Est GFR (Non-Af Amer) BUN/Creatinine Ratio Glucose POC Glucose 97 Calcium 05/10/22 05/10/22 05/10/22 06:37 07:14 11:26 WBC RBC Hgb Hct MCV MCH MCHC RDW Std Deviation RDW Coeff of Giuseppe Plt Count MPV PT INR Sodium 140 Potassium 3.8 Chloride 107 Carbon Dioxide 26 Anion Gap 7 BUN 20 Creatinine 0.91 Est Cr Clr Drug Dosing 49.6 Est GFR ( Amer) 68.1 Est GFR (Non-Af Amer) 58.8 BUN/Creatinine Ratio 22.0 H Glucose 84 POC Glucose 93 136 H Calcium 7.6 L 05/10/22 16:25 WBC RBC Hgb Hct MCV MCH MCHC RDW Std Deviation RDW Coeff of Giuseppe Plt Count MPV PT INR Sodium Potassium Chloride Carbon Dioxide Anion Gap BUN Creatinine Est Cr Clr Drug Dosing Est GFR ( Amer) Est GFR (Non-Af Amer) BUN/Creatinine Ratio Glucose POC Glucose 95 Calcium PG Care Time/CCT Total # of Minutes Spent Total Time Spent with Patient: Total time spent is greater than 50% in coordination of care (as documented) at patient's floor/unit and/or counseling patient: Coding Level of Care Code 55989 Subseq Hosp Care Lvl 2 Diagnoses (HFpEF) heart failure with preserved ejection fraction I50.33 Heart failure chronicity: acute on chronic Aortic stenosis I35.0 Cardiac valve disease etiology: etiology unspecified Cardiac pacemaker Z95.0 (1) (HFpEF) heart failure with preserved ejection fraction Heart failure chronicity: acute on chronic Qualified Code(s): I50.33 - Acute on chronic diastolic (congestive) heart failure (2) Aortic stenosis Cardiac valve disease etiology: etiology unspecified Qualified Code(s): I35.0 - Nonrheumatic aortic (valve) stenosis
--- NOTE | 2022-05-10 20:46 | Hospitalist Progress Note ---
Date of Service May 10, 2022 Assessment & Plan (1) (HFpEF) heart failure with preserved ejection fraction: Plan: acute/chronic diastolic CHF. appears to be near or at euvolemia. stop lasix after tonight's dose. decompensation 2nd to severe ? Last echo 02/2022 with preserved EF, severe aortic stenosis. Today's weight is the lowest weight listed in EMR over the last 1-2 years. Appreciate cardiology consultation. She is being evaluated for TAVR at [facility], but is awaiting PET scan on 05/19/2022-if her PET scan shows worsening of her myeloma, she has decided that she will not pursue TAVR. Of note - she just had CT chest/abd/pelvis imaging in preparation for TAVR at [facility] about 1 week ago. I received those CT reports. CT chest showed mild pulm edema and trace effusions. Mild basilar scarring also seen but nothing else to account for dyspnea. Despite being close to euvolemia she remains dyspneic on exertion. Will order 2-step in am. BMP am. Will need to clarify what dose of lasix she should take at home - 40mg once daily? (had been on 20mg daily prior) (2) Aortic stenosis: Plan: Severe aortic stenosis. Awaiting possible TAVR in the future. Had recent cardiac catheterization which showed moderate nonobstructive CAD. Avoid excessive afterload reduction. (3) Pancytopenia: Plan: Secondary to antineoplastic therapy. TSH, B12, folate all wnl. Iron studies c/w iron deficiency with ferritin 15. s/p venofer 200mg IV x 1 on 05/07. s/p 300mg of venofer 05/08. s/p 300mg of venofer 05/09. CBC am for stability. (4) Myeloma: Plan: Ongoing, follows with Dr. Allen of [facility] oncology in [place]. Continue home Revlimid. She was due for Xgeva prior to admission but she did not receive it 2nd worsening CHF. Has upcoming PET scan 05/19/2022. (5) 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, type 2: Plan: Excellent control. Holding home metformin. Resume at d/c. NovoLog sliding scale in meantime. ADA diet. Accu-Cheks. HbA1C 5.9% - uncertain how accurate given her anemia. 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 cont colestipol beyond discharge 1gm daily or BID Plan: son updated by phone this evening cleared by PT/OT but both advise home therapy d/c tomorrow Admission and Anticipated Discharge Date Admission Date: May 06, 2022 Subjective since starting colestipol she has had only 1 loose bowel movement; much better than typical for her no dyspnea at rest denies orthopnea/PND continues to have FULTON - her main complaint eating well when she discharges she is going to stay with her [id number] Review of Systems Review of Systems: gen - eating well; no fever cv - no orthopnea, no chest pain pulm - scant cough, FULTON remains (but improved relative to admission) GI - no abd pain or N/V Physical Exam Physical Exam: gen - morbidly obese, sitting in chair, NAD, looks good skin - pallor mouth - MMM neck - no JVD heart - RRR, s1, s2 very hard to hear; 3/6 holosystolic murmur RUSB/apex lungs - scant rales L base, no wheeze, good airation, no increased work of breathing abd - soft NT ND BS+ ext - trace edema (Firm/hard chronic-appearing edema) b/l, pulses 2+ b/l psych - a/o x 3 Results & Data Results & Data ([facility]) Vital Signs (Past 12 Hours) Vital Signs Temp Pulse Resp BP Pulse Ox 05/10/22 19:16 36.8 C 85 18 102/65 99 05/10/22 16:39 37.0 C 91 H 18 99/65 L 94 05/10/22 11:49 93 05/10/22 11:09 36.7 C 86 17 94/57 L 96 Laboratory Results Laboratory Results - last 24 hr 05/10/22 05/10/22 05/10/22 06:37 06:37 06:37 WBC 2.15 L RBC 2.68 L Hgb 8.6 L Hct 27.1 L MCV 101.1 H MCH 32.1 MCHC 31.7 L RDW Std Deviation 67.3 H RDW Coeff of Giuseppe 18.2 H Plt Count 209 MPV 10.9 H PT 26.5 H INR 2.6 H Sodium 140 Potassium 3.8 Chloride 107 Carbon Dioxide 26 Anion Gap 7 BUN 20 Creatinine 0.91 Est Cr Clr Drug Dosing 49.6 Est GFR ( Amer) 68.1 Est GFR (Non-Af Amer) 58.8 BUN/Creatinine Ratio 22.0 H Glucose 84 POC Glucose Calcium 7.6 L 05/10/22 05/10/22 05/10/22 07:14 11:26 16:25 WBC RBC Hgb Hct MCV MCH MCHC RDW Std Deviation RDW Coeff of Giuseppe Plt Count MPV PT INR Sodium Potassium Chloride Carbon Dioxide Anion Gap BUN Creatinine Est Cr Clr Drug Dosing Est GFR ( Amer) Est GFR (Non-Af Amer) BUN/Creatinine Ratio Glucose POC Glucose 93 136 H 95 Calcium 05/10/22 19:59 WBC RBC Hgb Hct MCV MCH MCHC RDW Std Deviation RDW Coeff of Giuseppe Plt Count MPV PT INR Sodium Potassium Chloride Carbon Dioxide Anion Gap BUN Creatinine Est Cr Clr Drug Dosing Est GFR ( Amer) Est GFR (Non-Af Amer) BUN/Creatinine Ratio Glucose POC Glucose 93 Calcium PG Care Time/CCT Total # of Minutes Spent Total Time Spent with Patient: Total time spent is greater than 50% in coordination of care (as documented) at patient's floor/unit and/or counseling patient: Coding Level of Care Code 24802 Subseq Hosp Care Lvl 2 Diagnoses (HFpEF) heart failure with preserved ejection fraction I50.33 Heart failure chronicity: acute on chronic Aortic stenosis I35.0 Cardiac valve disease etiology: etiology unspecified Pancytopenia D61.818 Myeloma C90.00 Multiple myeloma remission status: not in remission 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, type 2 E11.9 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 complication status: without complication 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 chcf insulin use: without dedicated intermodal truck driver use Depression F32.9 Active/Remission status: remission status unspecified Depression Type: major depressive disorder Major depression recurrence: unspecified whether recurrent Hyperlipidemia E78.5 Hyperlipidemia type: unspecified Sleep apnea G47.30 Pacemaker Z95.0 Plasmacytoma C90.30 Plasmacytoma active/remission status: not having achieved remission Plasmacytoma type: solitary plasmacytoma terminal 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 (current) use of anticoagulants Z79.01 Morbid obesity with BMI of 50.0-59.9, adult E66.01; Z68.43 Fall W19.XXXA Chronic diarrhea K52.9 (1) 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, type 2 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 complication status: without complication 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 dedicated 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 truck driver insulin use: without dedicated intermodal truck driver use Qualified Code(s): E11.9 - Type 2 diabetes mellitus without complications (2) (HFpEF) heart failure with preserved ejection fraction Heart failure chronicity: acute on chronic Qualified Code(s): I50.33 - Acute on chronic diastolic (congestive) heart failure (3) Plasmacytoma Plasmacytoma active/remission status: not having achieved remission Plasmacytoma type: solitary plasmacytoma Qualified Code(s): C90.30 - 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 (4) Aortic stenosis Cardiac valve disease etiology: etiology unspecified Qualified Code(s): I35.0 - Nonrheumatic aortic (valve) stenosis (5) Depression Active/Remission status: remission status unspecified Depression Type: major depressive disorder Major depression recurrence: unspecified whether recurrent Qualified Code(s): F32.9 - Major depressive disorder, single episode, unspecified (6) Hyperlipidemia Hyperlipidemia type: unspecified Qualified Code(s): E78.5 - Hyperlipidemia, unspecified (7) Myeloma Multiple myeloma remission status: not in remission Qualified Code(s): C90.00 - Multiple myeloma not having achieved remission
[2022-05-10] MEDS: COLESTIPOL HCL 1 GM TAB PO SCH (20:47)
[2022-05-10] MEDS: VENLAFAXINE HCL XR 150 MG CAPXR PO SCH (20:47)
[2022-05-11 07:45] LABS: Hematocrit (blood only) 27.2 % (37-47); Hemoglobin 8.5 g/dL (12.0-16.0); Mean Corpuscular Hgb Conc 31.3 g/dL (32-36); Mean Corpuscular Volume 102.3 fL (80-100); Mean Platelet Volume 10.7 fL (7.4-10.4); Nucleated RBC # (auto) 0.03 K/uL (0-0); Nucleated RBC % (auto) 1.7 %; Platelet Count 214 K/uL (130-400); RDW Coefficient of Variation 18.4 % (11.5-14.5); RDW Standard Deviation 68.4 fL (36.4-46.3); Red Blood Count 2.66 M/uL (4.2-5.4)
[2022-05-11 08:03] LABS: INR 2.6 (0.9-1.1); Prothrombin Time 26.2 Seconds (9.0-12.0)
[2022-05-11] MEDS: CHOLECALCIFEROL 1,000 UNITS 25 MCG TAB PO SCH (08:04)
[2022-05-11] MEDS: ACYCLOVIR 400 MG TAB PO SCH (08:04)
[2022-05-11] MEDS: VENLAFAXINE HCL XR 75 MG CAPXR PO SCH (08:04)
[2022-05-11] MEDS: POTASSIUM CHLORIDE CRTAB 20 MEQ TABCR PO SCH (08:04)
[2022-05-11] MEDS: CYANOCOBALAMIN (B-12) 500 MCG TABLET PO SCH (08:04)
[2022-05-11] MEDS: ATORVASTATIN 10 MG TAB PO SCH (08:04)
[2022-05-11] MEDS: INSULIN ASPART PER UNIT SC SCH ×2 (08:06→11:58)
[2022-05-11] MEDS: LENALIDOMIDE PO SCH (08:06)
[2022-05-11] MEDS: [UNRECOGNIZED DRUG - OTHER] PO SCH (08:06)
[2022-05-11 08:11] LABS: BUN Creatinine Ratio 20.5 (10-20); Calcium 7.6 mg/dl (8.5-10.1); Creatinine Clr Calc Pharmacy 54.9 ml/min; Est GFR (African American) 76.1 ml/min; Est GFR (Non-African American) 65.7 ml/min; Magnesium 1.9 mg/dl (1.7-2.4); Potassium 3.8 mmol/L (3.5-5.1)
[2022-05-11] MEDS ORDERED: FUROSEMIDE 40 MG TAB PO SCH (09:00)
--- NOTE | 2022-05-11 09:02 | Cardiology Progress Note ---
Date of Service May 11, 2022 Assessment & Plan (1) (HFpEF) heart failure with preserved ejection fraction: (2) Aortic stenosis: (3) Cardiac pacemaker: Plan: 1. Congestive heart failure: Clinically improved. I think she will always have some element of dyspnea prior to her valve replacement. She has other reasons for being slightly short of breath as well. I think she would be able to perform her usual activities at home at this point. I would advocate discharged on her current dose of diuretic. 2. Aortic stenosis: Already evaluated. Awaiting PET scan were overall prognosis with respect to myeloma. 3. Pacemaker: Her pacer appears to be functioning normally on telemetry and recent interrogation. Admission and Anticipated Discharge Date Admission Date: May 06, 2022 Subjective This morning patient claimed he feeling well. She reports being ambulatory in the hallway for brief period This morning. She did have some mild dyspnea but overall felt well. No chest pain or dizziness. No breathing difficulty at rest. Physical Exam Physical Exam: She is alert and oriented x3. Mood affect appear normal. She answered all questions appropriately. Obese HEENT: Sclerae are anicteric. Pupils are equal and reactive to light and accommodation. Extraocular movements were intact. Neuro: Cranial nerves intact Lungs: normal respiratory effort. Occasional crackle left base otherwise clear. Cardiac: The rhythm was regular. S1 and S2 were normal. Crescendo systolic murmur. The PMI was not markedly displaced on palpation. Extremities: Patient has bilateral radial pulses that are equal in intensity. There is no evidence cyanosis or clubbing. chronic lower extremity edema with trophic changes Skin: There are no rashes noted on examination today. Results & Data ([facility]) Vital Signs (Past 12 Hours) Vital Signs Temp Pulse Pulse Pulse Pulse Pulse Resp 05/11/22 07:17 112 H 114 H 74 05/11/22 07:03 36.6 C 81 18 05/11/22 03:04 36.6 C 84 18 05/11/22 02:50 86 20 05/10/22 23:24 77 05/10/22 23:17 36.5 C 86 18 05/10/22 22:45 87 18 Resp Resp Resp BP Pulse Ox Pulse Ox Pulse Ox 05/11/22 07:17 19 18 18 95 94 05/11/22 07:03 105/69 99 05/11/22 03:04 105/69 95 05/11/22 02:50 96 05/10/22 23:24 05/10/22 23:17 103/63 99 05/10/22 22:45 97 Pulse Ox 05/11/22 07:17 96 05/11/22 07:03 05/11/22 03:04 05/11/22 02:50 05/10/22 23:24 05/10/22 23:17 05/10/22 22:45 Laboratory Results Abnormal Lab Results 05/10/22 05/10/22 05/10/22 11:26 16:25 19:59 WBC RBC Hgb Hct MCV MCH MCHC RDW Std Deviation RDW Coeff of Giuseppe Plt Count MPV Absolute Nucleated RBC Nucleated RBC % (auto) PT INR Sodium Potassium Chloride Carbon Dioxide Anion Gap BUN Creatinine Est Cr Clr Drug Dosing Est GFR ( Amer) Est GFR (Non-Af Amer) BUN/Creatinine Ratio Glucose POC Glucose 136 H 95 93 Calcium Magnesium 05/11/22 05/11/22 05/11/22 06:53 06:53 06:53 WBC 1.80 L RBC 2.66 L Hgb 8.5 L Hct 27.2 L MCV 102.3 H MCH 32.0 MCHC 31.3 L RDW Std Deviation 68.4 H RDW Coeff of Giuseppe 18.4 H Plt Count 214 MPV 10.7 H Absolute Nucleated RBC 0.03 H Nucleated RBC % (auto) 1.7 PT 26.2 H INR 2.6 H Sodium 141 Potassium 3.8 Chloride 109 H Carbon Dioxide 26 Anion Gap 6 BUN 17 Creatinine 0.83 Est Cr Clr Drug Dosing 54.9 Est GFR ( Amer) 76.1 Est GFR (Non-Af Amer) 65.7 BUN/Creatinine Ratio 20.5 H Glucose 89 POC Glucose Calcium 7.6 L Magnesium 1.9 05/11/22 07:30 WBC RBC Hgb Hct MCV MCH MCHC RDW Std Deviation RDW Coeff of Giuseppe Plt Count MPV Absolute Nucleated RBC Nucleated RBC % (auto) PT INR Sodium Potassium Chloride Carbon Dioxide Anion Gap BUN Creatinine Est Cr Clr Drug Dosing Est GFR ( Amer) Est GFR (Non-Af Amer) BUN/Creatinine Ratio Glucose POC Glucose 109 H Calcium Magnesium PG Care Time/CCT Total # of Minutes Spent Total Time Spent with Patient: Total time spent is greater than 50% in coordination of care (as documented) at patient's floor/unit and/or counseling patient: Coding Level of Care Code 52263 Subseq Hosp Care Lvl 2 Diagnoses (HFpEF) heart failure with preserved ejection fraction I50.33 Heart failure chronicity: acute on chronic Aortic stenosis I35.0 Cardiac valve disease etiology: etiology unspecified Cardiac pacemaker Z95.0 (1) (HFpEF) heart failure with preserved ejection fraction Heart failure chronicity: acute on chronic Qualified Code(s): I50.33 - Acute on chronic diastolic (congestive) heart failure (2) Aortic stenosis Cardiac valve disease etiology: etiology unspecified Qualified Code(s): I35.0 - Nonrheumatic aortic (valve) stenosis
--- NOTE | 2022-05-11 12:09 | Discharge Summary ---
Date of Service May 11, 2022 Admission HPI Per Admitting Provider This patient is an 82-year-old female with history of severe aortic stenosis with possible upcoming TAVR, PPM secondary to complete heart block, HFpEF, GI bleeds, multiple myeloma on chemotherapy, DM 2, DVT/PE on Coumadin, moderate nonobstructive CAD, who presents to the ER with increasing shortness of breath x2 days, 5 pound weight gain, and increasing abdominal girth. Also feeling very weak and found it more difficult to get out of bed today. She reports that she usually watches her sodium and weighs herself every day. She drinks about 48 ounces of water each day but nothing more than that. In the ER, she was found to be quite dyspneic with speaking in full sentences. Her pulse ox was 94% on room air and she was placed on 2 L nasal cannula supplemental O2 for comfort which brought her pulse ox to 100%. She was afebrile and her vital signs were otherwise stable. She had a chest x-ray which showed pulmonary vascular congestion and small pleural effusions. She is chronically anemic with a hemoglobin of 8.3. Her proBNP was elevated at 569, and her troponin was mildly elevated at 38.8. A COVID test was negative. She was given a dose of IV Lasix in the ER. She will be admitted for acute on chronic HFpEF. Principal Diagnosis Acute on chronic HFpEF, severe aortic stenosis Discharge Exam Constitutional WD/WN, vitals as above Eyes + anicteric sclerae ENMT external ear and nose normal, oropharynx normal Neck trachea midline, no thyromegaly Respiratory normal respiratory effort, lungs clear to auscultation not tachypneic Cardiovascular Rate/Rhythm: regular rate and regular rhythm Heart Sounds: + murmur (3/6 AARON at RUSB) Extremities: no calf tenderness and no edema Chest (Breasts) Chest: + pacemaker (Left chest wall) Gastrointestinal (Abdomen) normal bowel sounds, soft, nontender, no hepatosplenomegaly Musculoskeletal Extremities: extremities normal to inspection; no cyanosis and no clubbing Skin no rashes, warm and dry Neurologic moves all extremities and awake; no focal motor deficits Psychiatric A+Ox3, euthymic affect Lymphatic no lymphedema Discharge Data Allergies Allergy/AdvReac Type Severity Reaction Status Date / Time adhesive tape AdvReac Mild Skin rash Verified 03/12/22 11:20 Consultations 05/06/22 17:43 ED Decision to Admit Stat 05/06/22 21:19 Consult Cardiology Routine 05/11/22 11:55 [facility] Referral Routine Ordered Studies Echocardiogram Hospital Course (1) (HFpEF) heart failure with preserved ejection fraction: acute/chronic diastolic CHF. appears to be euvolemic after IV diuresis decompensation 2nd to severe Last echo 02/2022 with preserved EF, severe aortic stenosis. Her weight is significantly down although weights are not exactly accurate here. Her net I/O for the hospital stay is -3.9 L Appreciate cardiology consultation. She is being evaluated for TAVR at [facility], but is awaiting PET scan on 05/19/2022-if her PET scan shows worsening of her myeloma, she has decided that she will not pursue TAVR. Of note - she just had CT chest/abd/pelvis imaging in preparation for TAVR at [facility] about 1 week ago. I received those CT reports. CT chest showed mild pulm edema and trace effusions. Mild basilar scarring also seen but nothing else to account for dyspnea. She passed a two-step walk test prior to discharge. She still feels some dyspnea on exertion but attributes this to her aortic stenosis. No angina. -Discharged home on Lasix 40 Mg p.o. once daily which is double the usual home dose -I have enrolled her in the CHF clinic for close follow-up after discharge to include renal function, electrolytes, fluid management (2) Aortic stenosis: Severe aortic stenosis. Awaiting possible TAVR in the future. Had recent cardiac catheterization which showed moderate nonobstructive CAD. Avoid excessive afterload reduction. (3) Pancytopenia: Secondary to antineoplastic therapy and iron deficiency Hemoglobin remains stable at 8.5 TSH, B12, folate all wnl. Iron studies c/w iron deficiency with ferritin 15. s/p venofer 200mg IV x 1 on 05/07. s/p 300mg of venofer 05/08. s/p 300mg of venofer 05/09. Follow-up with oncology after discharge (4) Myeloma: Ongoing, follows with Dr. Allen of [facility] oncology in [place]. Continue home Revlimid. She was due for Xgeva prior to admission but she did not receive it 2nd worsening CHF. Has upcoming PET scan 05/19/2022. (5) 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, type 2: Excellent control. Holding home metformin. Resume at d/c. NovoLog sliding scale in meantime. ADA diet. Accu-Cheks. HbA1C 5.9% - uncertain how accurate given her anemia. 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 (11) quarter section ironer (current) use of anticoagulants: 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 Continue Coumadin 8 mg daily 9 mg on Sundays INR in am INR remains stable / at goal (12) Morbid obesity with BMI of 50.0-59.9, adult: BMI low 51 (13) Fall: 05/08/22 x-rays L knee without hardware compromise fortunately no fractures or other injuries from this fall patient reminded to call nurse when attempting to ambulate PT/OT consults appreciated (14) Chronic diarrhea: improved with colestipol, but reports she is still having ongoing diarrhea-discharged home with cholestyramine 4 g p.o. once daily to be taken right after eating lunch so as not to prevent absorption of her other important medications c diff negative she does not have a gall bladder Disposition-stable for discharge to home Total Time Total Time Spent Total Time Spent (In Minutes): 40 minutes Discharge Plan Discharge Items Patient Disposition: Home - Home Health Services Reason For Visit: CHF Discharge Diagnosis: CHF Condition on Discharge: Fair Activity: As commented below Bathing: No limitations Exercise/Sports: As tolerated Non-emergency contact: Primary Care Provider, Super[employer] and Oncologist Call non-emergency contact if: you have any medication questions and your symptoms worsen Follow-up/Referrals: Kulwinder Byers MD [Primary Care Provider] - 05/25/22 3:45 pm (Follow up within 1-2 weeks) Ugo Bethea MD [Physician] - (Follow up within 2-3 weeks) Sabine Sun PA-C [Physician Mental Retardation Nurse] - 05/18/22 10:30 am (Congestive Heart Failure Program Appointment Information Early follow up is essential to managing your heart failure. An appointment has been scheduled for you with the [facility] Heart Failure Program within 7 days of discharge. Anticipate this visit to be 30-60 minutes long. Please expect a solar energy system installer phone call from one of our nurses approximately 48 hours from discharge. They will also be placing an order for lab work to be completed 1-2 days prior to your heart failure follow up appointment. Please be sure to have this done so we can go over the results when you come in. Office Location The cardiology office building is located in front of the hospital at [address]. Bring the following with you to your follow-up doctor appointments: Please bring your daily weight log any discharge paperwork all of your medication bottles with you to this visit. ) Diet: Low Sodium (2gm) Fluids: 1500ml (6 cups) Addtl Attending Provider Instructions: You were admitted with congestive heart failure due to your severe aortic valve stenosis. You had fluid removed with IV lasix and will go home on lasix 40mg by mouth once daily. You were also started on cholestyramine powder to help with your diarrhea. This should be taken after lunch each day so as not to interfere with absorption of your usual medications. Call your Primary Care doctor if any of the following symptoms or problems start or get worse: * Shortness of breath or difficulty breathing * Wake up at night short of breath * Chest pain * Cough * Swelling of your hands, feet, or legs * More fatigued or tired with your normal activity * Palpitations - sudden fast heart beats WEIGHT * Weigh yourself every morning after using the bathroom. * Use the same scale. * Wear the same amount of clothing. * Write your weight down on a chart. * Call your Primary Care doctor if you gain more than 2-3 pounds in 1-2 days. MEDICATIONS * Use this discharge instruction sheet for medication instructions. * Take your medications at the time your doctor ordered. * Do not skip a dose of your medicines. * If you miss a dose of medicine, take it as soon as possible, but DO NOT DOUBLE A DOSE. * Read your medicine information when you get home. * Know all of the side effects of your medicine. If in doubt, ask your pharmacist * Call your Primary Care doctor's office if you have any side effects. * Be sure all of your doctors know what medicine and herbs you take (including c old, flu, and herbal medicine). Take the following with you to your follow-up doctor appointments: * Weight Chart * Medication List * List of questions Do not drink excessive alcohol, beer or wine. Pending Studies at Discharge: No Stand-Alone Forms: My [facility] Medications and DC Order Prescriptions: New furosemide 40 mg Tablet 40 mg PO QAM Qty: 30 RF: 0 potassium chloride 20 mEq Tablet,Er Particles/Crystals 20 meq PO DAILY Qty: 30 RF: 0 Cholestyramine Light 4 gram powder 4 g PO DAILY Qty: 210 RF: 0 Continued fluticasone propionate [Flonase Allergy Relief] 50 mcg/actuation spray,suspension 1 spray intranasal BID PRN (Reason: allergy symptoms) Qty: 16 RF: 2 metformin 500 mg tablet extended release 24 hr 1,000 mg PO QPM Qty: 180 RF: 3 venlafaxine 75 mg capsule,extended release 24hr 75 mg PO QAM Qty: 30 RF: 5 loratadine 10 mg capsule 10 mg PO DAILY PRN (Reason: Allergy Symptoms) Qty: 30 RF: 5 warfarin 1 mg tablet See Rx Instructions mg PO DAILY Qty: 15 RF: 2 OneTouch Ultra Test Strip See Rx Instructions .ROUTE .COMPLEX Qty: 100 RF: 3 atorvastatin 10 mg tablet 10 mg PO DAILY Qty: 90 RF: 3 warfarin 4 mg tablet See Rx Instructions mg .ROUTE .COMPLEX Qty: 180 RF: 1 venlafaxine 150 mg capsule,extended release 24hr 150 mg PO QPM Qty: 90 RF: 3 calcium carbonate [Calcium 600] 600 mg calcium (1,500 mg) tablet 600 mg PO DAILY RF: 0 acetaminophen 650 mg tablet extended release 650 mg PO DAILY PRN (Reason: pain) RF: 0 triamcinolone acetonide 0.1 % cream 1 applic topical BID PRN (Reason: dermatitis) RF: 0 nystatin 100,000 unit/gram powder 1 applic topical DAILY PRN (Reason: Skin Irritation) Qty: 60 RF: 1 K-Phos Original 500 mg tablet,soluble 500 mg PO DAILY RF: 0 cholecalciferol (vitamin D3) 2,000 unit tablet 2,000 unit PO QAM RF: 0 amoxicillin 500 mg capsule 2,000 mg PO ONCE PRN (Reason: DENTAL APPOINTMENTS) Qty: 4 RF: 0 oxycodone 5 mg tablet 5 mg PO Q6H PRN (Reason: pain) Qty: 28 RF: 0 ascorbic acid (vitamin C) 500 mg tablet 1,000 mg PO QAM RF: 0 cyanocobalamin (vitamin B-12) 500 mcg tablet 1,000 mcg PO QAM RF: 0 acyclovir 400 mg tablet 400 mg PO BID RF: 0 Revlimid 10 mg capsule 10 mg PO DAILY RF: 0 multivitamin Tablet 1 tab PO DAILY RF: 0 ketotifen fumarate [Alaway] 0.025 % (0.035 %) Drops 1 drp OPHTHALMIC (EYE) BID RF: 0 Metamucil (with sugar) 3.4 gram Powder In Packet 1 ea PO QAM Qty: 1 RF: 0 Discontinued furosemide 20 mg tablet 20 mg PO QAM RF: 0 Discharge Orders: Discharge Order (Routine); Ordered 05/11/22 Ordered By: Gabby Velazco Admission Data Admit Date/Time: 05/06/22 19:01 Attending Provider: Gabby Velazco Admit Provider: Gabby Velazco Primary Care Provider: Kulwinder Byers Other Providers: Ugo Bethea ; Gabby Velazco ; Sabine Sun Other Interventions: Discharge Summary Assessment (RN) Last Done: 05/11/22 13:27 Coding Level of Care Code D/C DAY MANAGEMENT >30 MINS Diagnoses (HFpEF) heart failure with preserved ejection fraction I50.33 Heart failure chronicity: acute on chronic Aortic stenosis I35.0 Cardiac valve disease etiology: etiology unspecified Pancytopenia D61.818 Myeloma C90.00 Multiple myeloma remission status: not in remission 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, type 2 E11.9 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 complication status: without complication 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 filler leaf cutter long insulin use: without filler leaf cutter long use Depression F32.9 Active/Remission status: remission status unspecified Depression Type: major depressive disorder Major depression recurrence: unspecified whether recurrent Hyperlipidemia E78.5 Hyperlipidemia type: unspecified Sleep apnea G47.30 Pacemaker Z95.0 Plasmacytoma C90.30 Plasmacytoma active/remission status: not having achieved remission Plasmacytoma type: solitary plasmacytoma [facility] (current) use of anticoagulants Z79.01 Morbid obesity with BMI of 50.0-59.9, adult E66.01; Z68.43 Fall W19.XXXA Chronic diarrhea K52.9
[2022-05-11 12:19] VITALS: BP 92/63; PULSE 86; TEMP 98.1; O2SAT 97
== END 2022-05-11 17:19 | disposition home health service (06) | DRG 291 ==
LOC: ED 15:57 → SUATTDRO 19:01 → 2S 19:01

== ENCOUNTER 2022-06-09 16:31 | Observation (INO) ==
[2022-06-09 17:02] LABS: Basophils # (auto) 0.02 K/uL (0-0.2); Basophils % (auto) 0.4 %; Eosinophils % (auto) 2.1 %; Hemoglobin 10.2 g/dl (12.0-16.0); Immature Granulocytes # (auto) 0.01 K/uL (0.00-0.02); Immature Granulocytes % (auto) 0.2 %; Lymphocytes # (auto) 0.84 K/uL (1.2-3.4); Lymphocytes % (auto) 17.7 %; Mean Corpuscular Hemoglobin 33.2 pg (25.0-34.0); Mean Corpuscular Hgb Conc 31.9 g/dL (32.0-36.0); Mean Corpuscular Volume 104.2 fL (80.0-100.0); Mean Platelet Volume 10.5 fL (9.4-12.3); Monocytes # (auto) 0.84 K/uL (0.24-0.82); Monocytes % (auto) 17.7 %; Neutrophils # (auto) 2.93 K/uL (1.4-6.5); Neutrophils % (auto) 61.9 %; Platelet Count 146 K/uL (130-400); RDW Standard Deviation 65.9 fL (36.4-46.3); Red Blood Count 3.07 M/uL (3.93-5.22); White Blood Count 4.74 K/ul (4.8-10.8)
[2022-06-09 17:27] LABS: Alanine Aminotransferase 12 U/L (7-52); Albumin Globulin Ratio 1.1 (0.9-2); Albumin Level 3.4 gm/dl (3.4-5.0); Alkaline Phosphatase 53 U/L (34-104); Anion Gap 6 (3-11); Aspartate Aminotransferase 27 U/L (13-39); BUN Creatinine Ratio 18.1 (10-20); Bilirubin,Total 0.3 mg/dl (0.2-1.0); Blood Urea Nitrogen 15 mg/dl (6-23); Calcium 8.8 mg/dl (8.5-10.1); Carbon Dioxide 28 mmol/L (21-32); Chloride 105 mmol/L (98-107); Est GFR (African American) 76.1 ml/min; Est GFR (Non-African American) 65.7 ml/min; Globulin 3.2 gm/dl (2.5-4.0); Glucose 121 mg/dl (70-99(Fasting)); INR 1.8 (0.9-1.1); Partial Thromboplastin Ratio 1.2; Potassium 4.2 mmol/L (3.5-5.1); Prothrombin Time 18.8 Seconds (9.0-12.0); Sodium 139 mmol/L (136-145); Total Protein 6.6 gm/dl (6.0-8.3)
[2022-06-09 17:30] LABS: Troponin I High Sensitivity 14.9 pg/ml (0-14)
[2022-06-09] MEDS ORDERED: METOCLOPRAMIDE HCL INJ 5 MG/ML 2 ML VIAL IV ONE (20:31)
[2022-06-09] MEDS ORDERED: diphenhydrAMINE 50 MG/ML VIAL IV STA (20:31)
[2022-06-09] MEDS ORDERED: OPTIRAY 320 125ml IV ONE (20:52)
--- NOTE | 2022-06-09 21:18 | CT Scan Report ---
CT head/brain wo con CLINICAL HISTORY: 82 years-old Female with unger. Acute headache TECHNIQUE: Multiple axial CT images of the head were obtained without contrast. A dose lowering tech nique was utilized adhering to the principles of ALARA. CT DOSE: 1751.08 mGy.cm COMPARISON: 03/06/2021 FINDINGS: No acute intracranial hemorrhage, midline shift, intracranial mass, hydrocephalus, territorial ischem ia or abnormal extra-axial collection. Age-related involutional changes. White matter hypodensities s uggestive of chronic microvascular ischemic disease. No acute calvarial fracture. Numerous osteolytic lesions redemonstrated compatible with the patient's known history of multiple myeloma. Prior bilateral lens repair. The paranasal sinuses, mastoid air c ells, and middle ear cavities are clear. IMPRESSION: 1. No acute intracranial abnormality. 2. Osteolytic lesions redemonstrated compatible with the patient's known clinical history multiple my eloma. ACT 112: Negative or not required by law. The above report was generated using voice recognition software. It may contain grammatical, syntax o r spelling errors. Electronically signed by: Zane Portillo M.D. 06/09/2022 9:17 PM
--- NOTE | 2022-06-09 21:31 | CT Scan Report ---
CT angio chest PE protocol HISTORY: 82 years-old Female with ro PE. Acute shortness of breath TECHNIQUE: Multiple CTA images of the chest were obtained after the intravenous administration of 117 ml Optiray. Coronal and sagittal MIPS were obtained from the axial data set and were submitted for review. All measurements were obtained according to NASCET criteria. A dose lowering technique was u tilized adhering to the principles of ALARA. COMPARISON: PET CT 07/23/2019, CT abdomen and pelvis 03/01/2022 FINDINGS: CTA: Moderate cardiomegaly. Left subclavian pacer. Aortic valvular endograft. Moderate to extensive syed ry artery calcifications. Atherosclerosis of the thoracic aorta without aneurysm or dissection. There is patency of the imaged great vessels with descending thoracic aortic tortuosity. Unremarkable pulm onary artery. No occlusive pulmonary emboli are identified. Minimal linear peripheral nonocclusive fi lling defects are noted within segmental and subsegmental pulmonary arterial branches within the righ t lower lobe. The segmental and subsegmental branches within the left lower lobe are suboptimally vis ualized secondary to respiratory motion artifact. CT CHEST: Heterogeneity of the thyroid with atrophic left thyroid lobe. No pathologically enlarged lymph nodes are identified. 3 cm hypodense cystic structure of the medial right breast previously measured 2.7 cm . Mild subsegmental linear bibasilar atelectasis/scarring. There is no pneumothorax, pleural effusion, airspace consolidation or overt pulmonary edema. There are no suspicious pulmonary nodules or masses. 3 mm subpleural solid nodule of the basal right lower lobe on image 73 is likely unchanged. Central airways are patent. Surgical clip of the proximal stomach. Cholecystectomy. 3.2 cm left renal cyst. Mild nonspecific left perinephric stranding. Unremarkable soft tissues. Numerous osteolytic skeletal lesions are redemonst rated. Decreased size of the soft tissue component involving the anterior right third rib, now with h ealing sclerosis. There are several healed chronic appearing right-sided rib fractures anterolaterall y. Age-indeterminate mild compression deformities are noted at T1, T4, T5 and T6. Mild superior endpl ate compression at L2 is new from the 03/01/2022 exam. Postoperative changes of the right humerus. IMPRESSION: 1. No acute pulmonary emboli identified. Subtle linear nonocclusive filling defects are noted within segmental and subsegmental pulmonary arterial branches within the right lower lobe suggestive of icing mixer annie pulmonary emboli. 2. Cardiomegaly with mild subsegmental bibasilar atelectasis. 3. Numerous osteolytic skeletal lesions are redemonstrated compatible with the patient's clinical olga gnosis of multiple myeloma. 4. Mild acute to subacute superior endplate compression deformity at L2 without retropulsion, new fro m 03/01/2022. 5. Age-indeterminate upper to mid thoracic compression deformities without retropulsion. Age-indeterm inate, however are new from 07/23/2019. ACT 112: Negative or not required by law. The above report was generated using voice recognition software. It may contain grammatical, syntax o r spelling errors. Electronically signed by: Zane Portillo M.D. 06/09/2022 9:29 PM
--- NOTE | 2022-06-09 22:25 | History & Physical Report ---
Date of Service June 09, 2022 Assessment & Plan (1) Chest pain: Plan: Patinent with brief episode of left sided chest discomfort this afternoon. She does have a mild elevation of HS-troponin. EKG with no acute ischemic changes. Do not highly suspect ACS -Observation -Telemetry monitoring -Echo to assess valve placement/function -Trend troponin (2) Coronary artery disease: Plan: Chronic. Mild elevation on serial troponins (>expected for female, however, lower than patient's prior values. appx 20% increase on repeat) -Trend troponin -Continue ASA -Continue Atorvastatin (3) S/P TAVR (transcatheter aortic valve replacement): Plan: Patient had TAVR performed at [facility] on 05/27/22. Procedure was well tolerated. She has a followup appointment with [facility] scheduled for tomorrow, 06/10/22 at 14:00. No evidence of failure on exam. CTA chest with aortic valvular endograft in place. -Check 2D echo (4) (HFpEF) heart failure with preserved ejection fraction: Plan: Compensated HFpEF -Continue home medications -Montior I/Os (5) Depression: Plan: Chronic. Stable -Continue Effexor (6) Hyperlipidemia: Plan: Chronic. Stable -Continue Atorvastatin (7) Sleep apnea: Plan: Chronic. Patient uses CPAP at home -Continue nocturnal CPAP 8cm H2O qHS (8) 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, type 2: Plan: Chronic. BSG = 121. Well controlled, last [id number]=7.9 on 05/07/22 -Hold oral agents -Lantus 5u BID -ISS -Goal blood sugar 100 - 140 (9) History of pulmonary embolism: Plan: CTA with evidence of chronic PE. Adequate oxygenation, no tachycardia. Patient is on Coumadin with subtherapeutic INR of 1.8. She reports compliance with her medication -Continue Coumadin. She takes 8mg po 6 days weekly and 9mg po daily -Will give additional 5mg now -Monitor INR (10) Myeloma: Plan: Patient follows with Dr. Allen of [facility]. She is scheduled to have a PET on 06/14/22 History of Present Illness Chief Complaint: headache, chest pain Primary Care Provider: Kulwinder Byers MD Chantel Roy is a pleasant 82yo female with history of HFpEF, severe s/p TAVR performed by Dr. Weber 05/27/22 at [facility], complete heart block s/p permanent pacer placement, DM, HLP presenting from home with headache and left sided chest discomfort that started suddenly this afternoon at 12:00 while patient was at home resting. Patient's headache fairly severe, 5/10, aching involving the left side of her face and neck and behind her left eye. She denies facial swelling, redness, visual changes, pain with eye movement. Denies focal numbness/tingling/weakness/nausea. She took an Oxycodone at home with no improvement. Patient also with dull pain in the left side of her chest which started at the same time. Pain 3/10 in severity with radiation down the left arm. Somewhat pleuritic in nature. Non-exertional, non-positional. She denies diaphoresis, dizziness, nausea, palpitations. She does have some mild shortness of breath as well. Chest pain has since resolved. Patient conveyed these symptoms to her home health nurse that called today. The home health nurse then called patient's PCP and was instructed to come to the ER. In the ER, patient afebrile, HD stable, non-toxic in appearance. ER Course: ReglanJamaril Allergies Allergy/AdvReac Type Severity Reaction Status Date / Time adhesive tape AdvReac Mild Skin rash Verified 06/09/22 10:09 Home Medications Medication Instructions Recorded Confirmed Type cholecalciferol (vitamin D3) 50 2,000 unit PO QAM 07/31/19 06/09/22 History mcg (2,000 unit) tablet amoxicillin 500 mg capsule 2,000 mg PO ONCE PRN DENTAL 08/01/19 06/09/22 History APPOINTMENTS #4 caps oxycodone 5 mg tablet 5 mg PO Q6H PRN pain #28 tabs 08/01/19 06/09/22 History acyclovir 400 mg tablet 400 mg PO BID 11/20/19 06/09/22 History potassium phosphate, monobasic 500 500 mg PO DAILY 07/07/20 06/09/22 History mg soluble tablet (K-Phos Original) lenalidomide 10 mg capsule 10 mg PO DAILY 11/18/20 06/09/22 History (Revlimid) multivitamin 1 tab PO DAILY 03/06/21 06/09/22 History venlafaxine 75 mg capsule,extended 75 mg PO QAM #30 caps 10/06/21 06/09/22 Rx release 24 hr loratadine 10 mg capsule 10 mg PO DAILY PRN Allergy 11/02/21 06/09/22 Rx Symptoms #30 caps acetaminophen 650 mg 650 mg PO DAILY PRN pain 12/31/21 06/09/22 History tablet,extended release ascorbic acid (vitamin C) 500 mg 1,000 mg PO QAM 12/31/21 06/09/22 History tablet calcium carbonate 600 mg calcium 600 mg PO DAILY 12/31/21 06/09/22 History (1,500 mg) tablet (Calcium) cyanocobalamin (vitamin B-12) 500 1,000 mcg PO QAM 12/31/21 06/09/22 History mcg tablet triamcinolone acetonide 0.1 % 1 applic topical BID PRN dermatitis 12/31/21 06/09/22 History topical cream warfarin 4 mg tablet See Rx Instructions .Route 02/12/22 06/09/22 Rx .COMPLEX #180 tabs ketotifen fumarate 0.025 % (0.035 1 drp ophthalmic (eye) BID 03/01/22 06/09/22 History %) eye drops (Alaway) psyllium husk (with sugar) 3.4 1 ea PO QAM #1 btl 03/06/22 06/09/22 Rx gram oral powder packet (Metamucil (with sugar)) nystatin 100,000 unit/gram topical 1 applic topical DAILY PRN Skin 03/12/22 06/09/22 Rx powder Irritation #60 grams cholestyramine-aspartame 4 gram 4 g PO DAILY #210 grams 05/11/22 06/09/22 Rx oral powder (Cholestyramine Light) furosemide 40 mg tablet 40 mg PO QAM #30 tabs 05/11/22 06/09/22 Rx potassium chloride 20 mEq 20 meq PO DAILY #30 tabs 05/11/22 06/09/22 Rx tablet,extended release(part/cryst) Wheeled Walker #1 ea 05/19/22 06/09/22 Rx aspirin 81 mg tablet,delayed 81 mg PO QAM 06/09/22 06/09/22 History release aspirin 81 mg tablet,delayed 81 mg PO DAILY 06/09/22 06/09/22 History release (Adult Aspirin Regimen) atorvastatin 10 mg tablet 10 mg PO QAM 06/09/22 06/09/22 History metformin 500 mg tablet,extended 1,000 mg PO UD 06/09/22 06/09/22 History release 24 hr warfarin 1 mg tablet mg PO UD 06/09/22 History Past Med/Surg History Medical History (HFpEF) heart failure with preserved ejection fraction Anxiety Aortic stenosis Aortic stenosis Basal cell carcinoma Cervical radiculopathy Degenerative disc disease Depression 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, type 2 Endometrial intraepithelial neoplasia (EIN) Fracture, humerus Hemorrhoids History of seizure Hyperlipidemia Morbid obesity Myeloma Osteoarthritis Pacemaker Plasmacytoma of bone Pneumonia due to 2019 novel coronavirus Positional vertigo Post herpetic neuralgia Post-menopausal bleeding Sepsis Sleep apnea Urinary leakage Surgical History H/O surgical biopsy History of appendectomy History of bilateral carpal tunnel release History of cataract surgery History of cholecystectomy History of endometrial biopsy History of knee replacement procedure of left knee History of knee replacement procedure of right knee History of surgery History of tonsillectomy S/P dilation and curettage S/P tooth extraction S/P tubal ligation Family History Mother Myocardial infarction Congestive heart failure Father Malignant neoplasm of oral cavity Sister Diabetes Breast cancer Son Hypertension Grandmother Diabetes Denies family history of Prostate cancer Lung cancer Colorectal cancer Social History Smoking Status: Never smoker Second Hand Exposure: No; Hx Alcohol Use: No Hx Substance Use: No Preferred Language: Romanian Communication Ability: Effective Visual Impairment: No Limitations Hearing Ability: Normal Powderer Required: No Beliefs That Will Affect Care: None marital status: / Current Living Situation: Alone Current Living Situation Comment: family checks in current occupational status: retired 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 Feels Safe at Home: Yes Childhood Exposure to Second-Hand Smoke: No caffeine: Yes (1 cup/day) during the past year weight has: remained stable Dental Care, Regularly: No Physical Activity Frequency: Does not Exercise Seatbelt Use: always Sunscreen Use: Yes Assistive Devices: Cane and CPAP Review of Systems Review of Systems: All systems reviewed & are unremarkable except as noted in HPI & below Physical Exam Physical Exam: General: patient resting comfortably, NAD, non-toxic in appea tylor, AA&O x 4 Skin: warm, dry, intact, no rashes or lesions HEENT: NC/AT, PERRL, EOMI, anicteric sclera, conjunctiva without injection, external ear normal to inspection and nontender, nares patent, moist mucus membranes, dentition intact, no oropharyngeal lesions, neck supple, trachea midline, no LAD, no thyromegaly, no JVD, tenderness with palpation of left sinus and eye, no pain with eye movement Heart: +S1/S2, regular, 3/6 AARON across precordium Lungs: equal air entry bilaterally, no rales/rhonchi/wheezes Abd: +BS, soft, NT/ND, no masses/organomegaly/ascites Ext: warm, 2+ pulses in UE/LE bilaterally, no clubbing/cyanosis or edema, no hematoma in groins Neuro: nonfocal, patient AA&O x 4, speech intact, no facial droop, moving all extremities on command with equal strength 5/5 Results & Data Results & Data ([facility]) Vital Signs (Past 12 Hours) Vital Signs Temp Pulse Pulse Resp BP BP Pulse Ox 06/09/22 20:29 06/09/22 20:29 88 18 122/67 96 06/09/22 16:36 36.9 C 89 16 114/72 95 O2 Del Method 06/09/22 20:29 Room Air 06/09/22 20:29 Room Air 06/09/22 16:36 Room Air Laboratory Results Laboratory Results WBC 4.74 K/ul (4.8-10.8) L 06/09/22 14:48 RBC 3.07 M/uL (3.93-5.22) L 06/09/22 14:48 Hgb 10.2 g/dl (12.0-16.0) L 06/09/22 14:48 Hct 32.0 % (34.1-44.9) L 06/09/22 14:48 MCV 104.2 fL (80.0-100.0) H 06/09/22 14:48 MCH 33.2 pg (25.0-34.0) 06/09/22 14:48 MCHC 31.9 g/dL (32.0-36.0) L 06/09/22 14:48 RDW Std Deviation 65.9 fL (36.4-46.3) H 06/09/22 14:48 RDW Coeff of Giuseppe 17.0 % (11.5-14.5) H 06/09/22 14:48 Plt Count 146 K/uL (130-400) 06/09/22 14:48 MPV 10.5 fL (9.4-12.3) 06/09/22 14:48 Immature Gran % (Auto) 0.2 % 06/09/22 14:48 Neut % (Auto) 61.9 % 06/09/22 14:48 Lymph % (Auto) 17.7 % 06/09/22 14:48 [place] % (Auto) 17.7 % 06/09/22 14:48 Eos % (Auto) 2.1 % 06/09/22 14:48 Baso % (Auto) 0.4 % 06/09/22 14:48 Neut # (Auto) 2.93 K/uL (1.4-6.5) 06/09/22 14:48 Lymph # (Auto) 0.84 K/uL (1.2-3.4) L 06/09/22 14:48 [place] # (Auto) 0.84 K/uL (0.24-0.82) H 06/09/22 14:48 Eos # (Auto) 0.10 K/uL (0-0.50) 06/09/22 14:48 Baso # (Auto) 0.02 K/uL (0-0.2) 06/09/22 14:48 Immature Gran # (Auto) 0.01 K/uL (0.00-0.02) 06/09/22 14:48 PT 18.8 Seconds (9.0-12.0) H 06/09/22 14:48 INR 1.8 (0.9-1.1) H 06/09/22 14:48 APTT 33.0 Seconds (21.0-31.0) H 06/09/22 14:48 PTT Ratio 1.2 06/09/22 14:48 Sodium 139 mmol/L (136-145) 06/09/22 14:48 Potassium 4.2 mmol/L (3.5-5.1) 06/09/22 14:48 Chloride 105 mmol/L (98-107) 06/09/22 14:48 Carbon Dioxide 28 mmol/L (21-32) 06/09/22 14:48 Anion Gap 6 (3-11) 06/09/22 14:48 BUN 15 mg/dl (6-23) 06/09/22 14:48 Creatinine 0.83 mg/dl (0.6-1.2) 06/09/22 14:48 Est Cr Clr Drug Dosing Not Reportable 06/09/22 14:48 Est GFR ( Amer) 76.1 ml/min 06/09/22 14:48 Est GFR (Non-Af Amer) 65.7 ml/min 06/09/22 14:48 BUN/Creatinine Ratio 18.1 (10-20) 06/09/22 14:48 Glucose 121 mg/dl (70-99(Fasting)) H 06/09/22 14:48 Calcium 8.8 mg/dl (8.5-10.1) 06/09/22 14:48 Total Bilirubin 0.3 mg/dl (0.2-1.0) 06/09/22 14:48 AST 27 U/L (13-39) 06/09/22 14:48 ALT 12 U/L (7-52) 06/09/22 14:48 Alkaline Phosphatase 53 U/L (34-104) 06/09/22 14:48 Troponin I High Sens 17.4 pg/ml (0-14) H 06/09/22 20:19 Total Protein 6.6 gm/dl (6.0-8.3) 06/09/22 14:48 Albumin 3.4 gm/dl (3.4-5.0) 06/09/22 14:48 Globulin 3.2 gm/dl (2.5-4.0) 06/09/22 14:48 Albumin/Globulin Ratio 1.1 (0.9-2) 06/09/22 14:48 SARS-CoV-2, RNA, NAAT NEGATIVE (NEGATIVE) 06/09/22 22:03 Impressions Chest CTA 06/09/22 20:30 CT angio chest PE protocol HISTORY: 82 years-old Female with ro PE. Acute shortness of breath TECHNIQUE: Multiple CTA images of the chest were obtained after the intravenous administration of 117 ml Optiray. Coronal and sagittal MIPS were obtained from the axial data set and were submitted for review. All measurements were obtained according to NASCET criteria. A dose lowering technique was utilized adhering to the principles of ALARA. COMPARISON: PET CT 07/23/2019, CT abdomen and pelvis 03/01/2022 FINDINGS: CTA: Moderate cardiomegaly. Left subclavian pacer. Aortic valvular endograft. Moderate to extensive coronary artery calcifications. Atherosclerosis of the thoracic aorta without aneurysm or dissection. There is patency of the imaged great vessels with descending thoracic aortic tortuosity. Unremarkable pulmonary artery. No occlusive pulmonary emboli are identified. Minimal linear peripheral nonocclusive filling defects are noted within segmental and subsegmental pulmonary arterial branches within the right lower lobe. The segmental and subsegmental branches within the left lower lobe are suboptimally visualized secondary to respiratory motion artifact. CT CHEST: Heterogeneity of the thyroid with atrophic left thyroid lobe. No pathologically enlarged lymph nodes are identified. 3 cm hypodense cystic structure of the medial right breast previously measured 2.7 cm. Mild subsegmental linear bibasilar atelectasis/scarring. There is no pneumothorax, pleural effusion, airspace consolidation or overt pulmonary edema. There are no suspicious pulmonary nodules or masses. 3 mm subpleural solid nodule of the basal right lower lobe on image 73 is likely unchanged. Central airways are patent. Surgical clip of the proximal stomach. Cholecystectomy. 3.2 cm left renal cyst. Mild nonspecific left perinephric stranding. Unremarkable soft tissues. Numerous osteolytic skeletal lesions are redemonstrated. Decreased size of the soft tissue component involving the anterior right third rib, now with healing sclerosis. There are several healed chronic appearing right-sided rib fractures anterolaterally. Age-indeterminate mild compression deformities are noted at T1, T4, T5 and T6. Mild superior endplate compression at L2 is new from the 03/01/2022 exam. Postoperative changes of the right humerus. IMPRESSION: 1. No acute pulmonary emboli identified. Subtle linear nonocclusive filling defects are noted within segmental and subsegmental pulmonary arterial branches within the right lower lobe suggestive of chronic pulmonary emboli. 2. Cardiomegaly with mild subsegmental bibasilar atelectasis. 3. Numerous osteolytic skeletal lesions are redemonstrated compatible with the patient's clinical diagnosis of multiple myeloma. 4. Mild acute to subacute superior endplate compression deformity at L2 without retropulsion, new from 03/01/2022. 5. Age-indeterminate upper to mid thoracic compression deformities without retropulsion. Age-indeterminate, however are new from 07/23/2019. ACT 112: Negative or not required by law. The above report was generated using voice recognition software. It may contain grammatical, syntax or spelling errors. Electronically signed by: Zane Portillo M.D. 06/09/2022 9:[address] 06/09/22 20:30 CT head/brain wo con CLINICAL HISTORY: 82 years-old Female with unger. Acute headache TECHNIQUE: Multiple axial CT images of the head were obtained without contrast. A dose lowering technique was utilized adhering to the principles of ALARA. CT DOSE: 1751.08 mGy.cm COMPARISON: 03/06/2021 FINDINGS: No acute intracranial hemorrhage, midline shift, intracranial mass, hydrocephalus, territorial ischemia or abnormal extra-axial collection. Age- related involutional changes. White matter hypodensities suggestive of chronic microvascular ischemic disease. No acute calvarial fracture. Numerous osteolytic lesions redemonstrated compatible with the patient's known history of multiple myeloma. Prior bilateral lens repair. The paranasal sinuses, mastoid air cells, and middle ear cavities are clear. IMPRESSION: 1. No acute intracranial abnormality. 2. Osteolytic lesions redemonstrated compatible with the patient's known clinical history multiple myeloma. ACT 112: Negative or not required by law. The above report was generated using voice recognition software. It may contain grammatical, syntax or spelling errors. Electronically signed by: Zane Portillo M.D. 06/09/2022 9:17 PM ECG Additional Comments: A-sensed, V-paced rhythm at 93bpm, no acute ischemic changes Code Status & VTE Plan VTE Prophylaxis Plan VTE Prophylaxis will be ordered: Yes PG Care Time/CCT Total # of Minutes Spent Total Time Spent with Patient: Total time spent is greater than 50% in coordination of care (as documented) at patient's floor/unit and/or counseling patient: Coding Level of Care Code INT OBSERVATION CARE 70M LVL 3 Diagnoses Chest pain R07.9 Coronary artery disease I25.10 S/P TAVR (transcatheter aortic valve replacement) Z95.2 (HFpEF) heart failure with preserved ejection fraction I50.33 Heart failure chronicity: acute on chronic Depression F32.9 Depression Type: major depressive disorder Major depression recurrence: unspecified whether recurrent Active/Remission status: remission status unspecified Hyperlipidemia E78.5 Hyperlipidemia type: unspecified Sleep apnea G47.30 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, type 2 E11.9 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 manager intermediate insulin use: without intermediate use 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 complication status: without complication History of pulmonary embolism Z86.711 Myeloma C90.00 Multiple myeloma remission status: not in remission (1) (HFpEF) heart failure with preserved ejection fraction Heart failure chronicity: acute on chronic Qualified Code(s): I50.33 - Acute on chronic diastolic (congestive) heart failure (2) Depression Depression Type: major depressive disorder Major depression recurrence: unspecified whether recurrent Active/Remission status: remission status unspecified Qualified Code(s): F32.9 - Major depressive disorder, single episode, unspecified (3) Hyperlipidemia Hyperlipidemia type: unspecified Qualified Code(s): E78.5 - Hyperlipidemia, unspecified (4) 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, type 2 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 manager intermediate insulin use: without intermediate use 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 complication status: without complication Qualified Code(s): E11.9 - Type 2 diabetes mellitus without complications (5) Myeloma Multiple myeloma remission status: not in remission Qualified Code(s): C90.00 - Multiple myeloma not having achieved remission
[2022-06-09] MEDS ORDERED: GLUCAGON FOR INJ 1 MG VIAL SQ PRN (22:51)
[2022-06-09] MEDS ORDERED: ONDANSETRON INJ 2 MG/ML 2 ML VIAL IV PRN (22:51)
[2022-06-09] MEDS ORDERED: DEXTROSE 50% 50 ML SYRINGE IV PRN (22:51)
[2022-06-09] MEDS ORDERED: oxyCODONE HCL IR 5 MG TAB (IMMEDIATE RELEASE) PO PRN ×2 (22:51)
[2022-06-09] MEDS ORDERED: CARBOHYDRATES FOR HYPOGLYCEMIA PO PRN (22:51)
[2022-06-09] MEDS ORDERED: GLUCOSE 10 TAB/TUBE PO PRN (22:51)
[2022-06-09] MEDS ORDERED: DOCUSATE SODIUM 100 MG CAP PO PRN (22:51)
[2022-06-09] MEDS ORDERED: GLUCOSE 40% GEL 15 GM TUBE PO PRN (22:51)
[2022-06-09] MEDS ORDERED: ACETAMINOPHEN 325 MG TAB PO PRN (22:51)
[2022-06-09] MEDS ORDERED: WARFARIN SOD 5 MG TAB PO ONE (22:57)
--- NOTE | 2022-06-09 23:25 | Emergency Department Note ---
History of Present Illness General Chief complaint: Headache Stated complaint: POSSIBLE HEART ATTACK REF BY DR BYERS Time Seen by Provider: 06/09/22 20:22 History of Present Illness Provider complaint: Chest pain headache Onset (ago): hour(s) 8 Location: head and chest Radiation: non-radiation Maximum Pain Intensity: 10 Current Pain Intensity: 9 Quality: + stabbing, + aching, + sharp and + dull Relieved By: + none Exacerbated By: + none Associated symptoms: + chest pain and + headaches; no cough, no fever/chills, no malaise, no nausea/vomiting, no seizure, no shortness of breath or no weakness 82-year-old female presents emergency department with chest pain and headache. Patient reports his symptoms began 8 hours ago at noon. Patient states she was resting at that time. She describes no nausea or vomiting. No hematuria or dysuria. Patient reports no changes in vision. Patient does have a history of multiple myeloma and is on Coumadin. Patient states her Coumadin was held and her last INR was 1.8. Patient states her PCP Dr. Byers referred her to the emergency department because he thought she might be having a heart attack. Home Medications Medication Instructions Recorded Confirmed Type cholecalciferol (vitamin D3) 50 2,000 unit PO QAM 07/31/19 06/09/22 History mcg (2,000 unit) tablet amoxicillin 500 mg capsule 2,000 mg PO ONCE PRN DENTAL 08/01/19 06/09/22 History APPOINTMENTS #4 caps oxycodone 5 mg tablet 5 mg PO Q6H PRN pain #28 tabs 08/01/19 06/09/22 History acyclovir 400 mg tablet 400 mg PO BID 11/20/19 06/09/22 History potassium phosphate, monobasic 500 500 mg PO QAM 07/07/20 06/09/22 History mg soluble tablet (K-Phos Original) lenalidomide 10 mg capsule 10 mg PO DAILY 11/18/20 06/09/22 History (Revlimid) multivitamin 1 tab PO QAM 03/06/21 06/09/22 History venlafaxine 75 mg capsule,extended 75 mg PO QAM #30 caps 10/06/21 06/09/22 Rx release 24 hr loratadine 10 mg capsule 10 mg PO DAILY PRN Allergy 11/02/21 06/09/22 Rx Symptoms #30 caps acetaminophen 650 mg 650 mg PO DAILY PRN pain 12/31/21 06/09/22 History tablet,extended release ascorbic acid (vitamin C) 500 mg 1,000 mg PO QAM 12/31/21 06/09/22 History tablet calcium carbonate 600 mg calcium 600 mg PO DAILY 12/31/21 06/09/22 History (1,500 mg) tablet (Calcium) cyanocobalamin (vitamin B-12) 500 1,000 mcg PO QAM 12/31/21 06/09/22 History mcg tablet triamcinolone acetonide 0.1 % 1 applic topical BID PRN dermatitis 12/31/21 06/09/22 History topical cream warfarin 4 mg tablet See Rx Instructions .Route 02/12/22 06/09/22 Rx .COMPLEX #180 tabs ketotifen fumarate 0.025 % (0.035 1 drp ophthalmic (eye) BID 03/01/22 06/09/22 History %) eye drops ([place]away) psyllium husk (with sugar) 3.4 1 ea PO QAM #1 btl 03/06/22 06/09/22 Rx gram oral powder packet (Metamucil (with sugar)) nystatin 100,000 unit/gram topical 1 applic topical DAILY PRN Skin 03/12/22 06/09/22 Rx powder Irritation #60 grams cholestyramine-aspartame 4 gram 4 g PO DAILY #210 grams 05/11/22 06/09/22 Rx oral powder (Cholestyramine Light) furosemide 40 mg tablet 40 mg PO QAM #30 tabs 05/11/22 06/09/22 Rx potassium chloride 20 mEq 20 meq PO DAILY #30 tabs 05/11/22 06/09/22 Rx tablet,extended release(part/cryst) Wheeled Walker #1 ea 05/19/22 06/09/22 Rx aspirin 81 mg tablet,delayed 81 mg PO QAM 06/09/22 06/09/22 History release aspirin 81 mg tablet,delayed 81 mg PO QAM 06/09/22 06/09/22 History release (Adult Aspirin Regimen) atorvastatin 10 mg tablet 10 mg PO QAM 06/09/22 06/09/22 History metformin 500 mg tablet,extended 1,000 mg PO UD 06/09/22 06/09/22 History release 24 hr warfarin 1 mg tablet 1 mg PO UD 06/09/22 06/09/22 History Allergies Allergy/AdvReac Type Severity Reaction Status Date / Time adhesive tape AdvReac Mild Skin rash Verified 06/09/22 10:09 Past Med/Surg History Medical History (HFpEF) heart failure with preserved ejection fraction Anxiety Aortic stenosis Aortic stenosis Basal cell carcinoma face Cervical radiculopathy Degenerative disc disease Depression 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, type 2 NIDDM Endometrial intraepithelial neoplasia (EIN) Fracture, humerus Hemorrhoids History of seizure last seizure 1995 Hyperlipidemia Morbid obesity Myeloma Osteoarthritis 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 CHB 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; s/p surgery, radiation, chemo (receiving weekly oral/IV chemo Fridays + dexamethasone 40mg pretreatment prior to chemo) Pneumonia due to 2018 novel coronavirus Positional vertigo Post herpetic neuralgia hx shingles Post-menopausal bleeding Sepsis Sleep apnea CPAP + 2 LPM O2 qhs Urinary leakage Surgical History H/O surgical biopsy Right distal humerus 11/21/18 History of appendectomy History of bilateral carpal tunnel release History of cataract surgery Bilateral History of cholecystectomy History of endometrial biopsy History of knee replacement procedure of left knee History of knee replacement procedure of right knee History of surgery right distal humerus replacement History of tonsillectomy S/P dilation and curettage S/P tooth extraction S/P tubal ligation Family History Mother , 89yo Myocardial infarction Congestive heart failure Father , Pt unsure of details of father's health history;Knows he had facial cancer Malignant neoplasm of oral cavity Sister , May 2019 of copd Diabetes Breast cancer Son Hypertension Grandmother Diabetes Denies family history of Prostate cancer Lung cancer Colorectal cancer Social History Smoking Status: Never smoker Second Hand Exposure: No; Hx Alcohol Use: No Hx Substance Use: No Preferred Language: Indonesian Communication Ability: Effective Visual Impairment: No Limitations Hearing Ability: Normal 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 Required: No Beliefs That Will Affect Care: None marital status: / Current Living Situation: Alone Current Living Situation Comment: family checks in current occupational 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 Feels Safe at Home: Yes Childhood Exposure to Second-Hand Smoke: No caffeine: Yes (1 cup/day) during the past year weight has: remained stable Dental Care, Regularly: No Physical Activity Frequency: Does not Exercise Seatbelt Use: always Sunscreen Use: Yes Assistive Devices: Cane and CPAP Review of Systems A total of 10 systems reviewed and were otherwise negative Physical Exam Vital Signs Vital Signs - 24 hr 06/09/22 16:36 06/09/22 20:29 06/09/22 20:29 Temperature 36.9 C Temperature Source Temporal Artery Scan Pulse Rate 89 Pulse Rate [Right Finger] 88 Pulse Rhythm [Right Finger] Regular Pulse Strength [Right Finger] Normal Respiratory Rate 16 18 Respiratory Effort / Characteristics Non-Labored Non-Labored Respiratory Depth Normal Normal Respiratory Pattern Regular Blood Pressure 114/72 Blood Pressure [Right Arm] 122/67 Blood Pressure Mean 86 Blood Pressure Mean [Right Arm] 85 Blood Pressure Position [Right Arm] Lying Pulse Oximetry 95 96 Oxygen Delivery Method Room Air Room Air Room Air Sepsis Recent Fever Within 48 Hours No Sepsis New/Unexplained Change in Mental Status No Sepsis Action Taken by Nursing No Action Required Physical Exam GENERAL: She is oriented to person, place, and time. She appears well-developed and well-nourished. She does not appear distressed. HENT: Exam performed. -Head: Normocephalic and atraumatic. -Right Ear: External ear normal. No mastoid tenderness. -Left Ear: External ear normal. No mastoid tenderness. -Mouth/Throat: The oropharynx is clear and moist. No trismus in the jaw. No dental abscesses or uvula swelling. No oropharyngeal exudate or tonsillar abscesses. EYES: Conjunctivae and EOM are normal. Pupils are equal, round, and reactive to light. Right eye exhibits no discharge. Left eye exhibits no discharge. No scleral icterus. NECK: Normal range of motion. Neck supple. No JVD present. No spinous process tenderness present. No carotid bruit present. No rigidity. No tracheal deviation and normal range of motion present. No Brudzinski's sign and no Kernig's sign noted. CV: Normal rate, regular rhythm, normal heart sounds and intact distal pulses. There is no peripheral edema. Palpable radial pulses bue. PULM/CHEST: Effort normal and breath sounds normal. No respiratory distress. No stridor. She has no wheezes. She has no rales. -Chest Wall: She exhibits no tenderness. ABD: The abdomen is soft. Bowel sounds are normal. She has no distension. No mass is present. There is no tenderness. There is no rebound, no guarding, no Andrade's sign and no tenderness at McBurney's point. Rovsig negative MUSC/SKEL: Normal range of motion. There is no peripheral edema, tenderness or deformity. LYMPH: No cervical adenopathy. NEURO: She is alert and oriented to person, place, and time. She has normal strength. No cranial nerve deficit or sensory deficit. Coordination and gait normal. GCS eye subscore is 4. GCS verbal subscore is 5. GCS motor subscore is 6. Cerebellar tests wnl. SKIN: Skin is warm and dry. She is not diaphoretic. PSYCH: She has a normal mood and affect. Behavior is normal. Judgment and thought content normal. Course Course 2021: The patient was evaluated in room B2. A complete history and physical exam was performed Cardiac monitoring: An order was placed for continuous cardiac monitoring. The monitor shows a rate of 90 with paced rhythm Patient was seen during a time of extreme volume and extreme acuity in the emergency department. Nursing triage protocols were initiated and labs were drawn by protocol in the triage area. Administered Medications Discontinued Medications Diphenhydramine HCl (Diphenhydramine 50 Mg/Ml Vial) 25 mg IV NOW STA Stop: 06/09/22 20:32 Last Admin: 06/09/22 20:37 Dose: 25 mg Documented By: KEELEY Ioversol (Optiray 320 125ml) 117 ml IV ONCE ONE Stop: 06/09/22 20:53 Last Admin: 06/09/22 20:53 Dose: 117 ml Documented By: VIKTORIYA Metoclopramide HCl (Metoclopramide Hcl Inj 5 Mg/Ml 2 Ml Vial) 5 mg IV ONE ONE Stop: 06/09/22 20:32 Last Admin: 06/09/22 20:37 Dose: 5 mg Documented By: KEELEY Medical Decision Making Laboratory Data Result diagrams: 06/09/22 14:48 06/09/22 14:48 Lab Results 06/09/22 06/09/22 06/09/22 Range/Units 14:48 14:48 14:48 WBC 4.74 L (4.8-10.8) K/ul RBC 3.07 L (3.93-5.22) M/uL Hgb 10.2 L (12.0-16.0) g/dl Hct 32.0 L (34.1-44.9) % MCV 104.2 H (80.0-100.0) fL MCH 33.2 (25.0-34.0) pg MCHC 31.9 L (32.0-36.0) g/dL RDW Std Deviation 65.9 H (36.4-46.3) fL RDW Coeff of Giuseppe 17.0 H (11.5-14.5) % Plt Count 146 (130-400) K/uL MPV 10.5 (9.4-12.3) fL Immature Gran % (Auto) 0.2 % Neut % (Auto) 61.9 % Lymph % (Auto) 17.7 % [place] % (Auto) 17.7 % Eos % (Auto) 2.1 % Baso % (Auto) 0.4 % Neut # (Auto) 2.93 (1.4-6.5) K/uL Lymph # (Auto) 0.84 L (1.2-3.4) K/uL [place] # (Auto) 0.84 H (0.24-0.82) K/uL Eos # (Auto) 0.10 (0-0.50) K/uL Baso # (Auto) 0.02 (0-0.2) K/uL Immature Gran # (Auto) 0.01 (0.00-0.02) K/uL PT 18.8 H (9.0-12.0) Seconds INR 1.8 H (0.9-1.1) APTT 33.0 H (21.0-31.0) Seconds PTT Ratio 1.2 Sodium 139 (136-145) mmol/L Potassium 4.2 (3.5-5.1) mmol/L Chloride 105 (98-107) mmol/L Carbon Dioxide 28 (21-32) mmol/L Anion Gap 6 (3-11) BUN 15 (6-23) mg/dl Creatinine 0.83 (0.6-1.2) mg/dl Est Cr Clr Drug Dosing Not Reportable Est GFR ( Amer) 76.1 ml/min Est GFR (Non-Af Amer) 65.7 ml/min BUN/Creatinine Ratio 18.1 (10-20) Glucose 121 H (70-99(Fasting)) mg/dl Calcium 8.8 (8.5-10.1) mg/dl Magnesium (1.7-2.4) mg/dl Total Bilirubin 0.3 (0.2-1.0) mg/dl AST 27 (13-39) U/L ALT 12 (7-52) U/L Alkaline Phosphatase 53 (34-104) U/L Troponin I High Sens 14.9 H D (0-14) pg/ml Total Protein 6.6 (6.0-8.3) gm/dl Albumin 3.4 (3.4-5.0) gm/dl Globulin 3.2 (2.5-4.0) gm/dl Albumin/Globulin Ratio 1.1 (0.9-2) SARS-CoV-2, RNA, NAAT (NEGATIVE) 06/09/22 06/09/22 06/09/22 Range/Units 20:19 20:19 22:03 WBC (4.8-10.8) K/ul RBC (3.93-5.22) M/uL Hgb (12.0-16.0) g/dl Hct (34.1-44.9) % MCV (80.0-100.0) fL MCH (25.0-34.0) pg MCHC (32.0-36.0) g/dL RDW Std Deviation (36.4-46.3) fL RDW Coeff of Giuseppe (11.5-14.5) % Plt Count (130-400) K/uL MPV (9.4-12.3) fL Immature Gran % (Auto) % Neut % (Auto) % Lymph % (Auto) % [place] % (Auto) % Eos % (Auto) % Baso % (Auto) % Neut # (Auto) (1.4-6.5) K/uL Lymph # (Auto) (1.2-3.4) K/uL [place] # (Auto) (0.24-0.82) K/uL Eos # (Auto) (0-0.50) K/uL Baso # (Auto) (0-0.2) K/uL Immature Gran # (Auto) (0.00-0.02) K/uL PT (9.0-12.0) Seconds INR (0.9-1.1) APTT (21.0-31.0) Seconds PTT Ratio Sodium (136-145) mmol/L Potassium (3.5-5.1) mmol/L Chloride (98-107) mmol/L Carbon Dioxide (21-32) mmol/L Anion Gap (3-11) BUN (6-23) mg/dl Creatinine (0.6-1.2) mg/dl Est Cr Clr Drug Dosing Est GFR ( Amer) ml/min Est GFR (Non-Af Amer) ml/min BUN/Creatinine Ratio (10-20) Glucose (70-99(Fasting)) mg/dl Calcium (8.5-10.1) mg/dl Magnesium 1.9 (1.7-2.4) mg/dl Total Bilirubin (0.2-1.0) mg/dl AST (13-39) U/L ALT (7-52) U/L Alkaline Phosphatase (34-104) U/L Troponin I High Sens 17.4 H (0-14) pg/ml Total Protein (6.0-8.3) gm/dl Albumin (3.4-5.0) gm/dl Globulin (2.5-4.0) gm/dl Albumin/Globulin Ratio (0.9-2) SARS-CoV-2, RNA, NAAT NEGATIVE (NEGATIVE) Imaging Data Radiologist's Impression: Chest CTA 06/09/22 20:30 CT angio chest PE protocol HISTORY: 82 years-old Female with ro PE. Acute shortness of breath TECHNIQUE: Multiple CTA images of the chest were obtained after the intravenous administration of 117 ml Optiray. Coronal and sagittal MIPS were obtained from the axial data set and were submitted for review. All measurements were obtained according to NASCET criteria. A dose lowering technique was utilized adhering to the principles of ALARA. COMPARISON: PET CT 07/23/2019, CT abdomen and pelvis 03/01/2022 FINDINGS: CTA: Moderate cardiomegaly. Left subclavian pacer. Aortic valvular endograft. Moderate to extensive coronary artery calcifications. Atherosclerosis of the thoracic aorta without aneurysm or dissection. There is patency of the imaged great vessels with descending thoracic aortic tortuosity. Unremarkable pulmonary artery. No occlusive pulmonary emboli are identified. Minimal linear peripheral nonocclusive filling defects are noted within segmental and subsegmental pulmonary arterial branches within the right lower lobe. The segmental and subsegmental branches within the left lower lobe are suboptimally visualized secondary to respiratory motion artifact. CT CHEST: Heterogeneity of the thyroid with atrophic left thyroid lobe. No pathologically enlarged lymph nodes are identified. 3 cm hypodense cystic structure of the medial right breast previously measured 2.7 cm. Mild subsegmental linear bibasilar atelectasis/scarring. There is no pneumothorax, pleural effusion, airspace consolidation or overt pulmonary edema. There are no suspicious pulmonary nodules or masses. 3 mm subpleural solid nodule of the basal right lower lobe on image 73 is likely unchanged. Central airways are patent. Surgical clip of the proximal stomach. Cholecystectomy. 3.2 cm left renal cyst. Mild nonspecific left perinephric stranding. Unremarkable soft tissues. Numerous osteolytic skeletal lesions are redemonstrated. Decreased size of the soft tissue component involving the anterior right third rib, now with healing sclerosis. There are several healed chronic appearing right-sided rib fractures anterolaterally. Age-indeterminate mild compression deformities are noted at T1, T4, T5 and T6. Mild superior endplate compression at L2 is new from the 03/01/2022 exam. Postoperative changes of the right humerus. IMPRESSION: 1. No acute pulmonary emboli identified. Subtle linear nonocclusive filling defects are noted within segmental and subsegmental pulmonary arterial branches within the right lower lobe suggestive of chronic pulmonary emboli. 2. Cardiomegaly with mild subsegmental bibasilar atelectasis. 3. Numerous osteolytic skeletal lesions are redemonstrated compatible with the patient's clinical diagnosis of multiple myeloma. 4. Mild acute to subacute superior endplate compression deformity at L2 without retropulsion, new from 03/01/2022. 5. Age-indeterminate upper to mid thoracic compression deformities without retropulsion. Age-indeterminate, however are new from 07/23/2019. ACT 112: Negative or not required by law. The above report was generated using voice recognition software. It may contain grammatical, syntax or spelling errors. Electronically signed by: Zane Portillo M.D. 06/09/2022 9:[address] 06/09/22 20:30 CT head/brain wo con CLINICAL HISTORY: 82 years-old Female with unger. Acute headache TECHNIQUE: Multiple axial CT images of the head were obtained without contrast. A dose lowering technique was utilized adhering to the principles of ALARA. CT DOSE: 1751.08 mGy.cm COMPARISON: 03/06/2021 FINDINGS: No acute intracranial hemorrhage, midline shift, intracranial mass, hydrocephalus, territorial ischemia or abnormal extra-axial collection. Age-rel ated involutional changes. White matter hypodensities suggestive of chronic microvascular ischemic disease. No acute calvarial fracture. Numerous osteolytic lesions redemonstrated compatible with the patient's known history of multiple myeloma. Prior bilateral lens repair. The paranasal sinuses, mastoid air cells, and middle ear cavities are clear. IMPRESSION: 1. No acute intracranial abnormality. 2. Osteolytic lesions redemonstrated compatible with the patient's known clinical history multiple myeloma. ACT 112: Negative or not required by law. The above report was generated using voice recognition software. It may contain grammatical, syntax or spelling errors. Electronically signed by: Zane oPrtillo M.D. 06/09/2022 9:17 PM ECG Data Additional Comments: Paced rhythm ME 204 QRS 164 QTC 557 no ectopy. MDM Narrative Vital signs stable. CT of the head shows no acute intracranial abnormality but does show osteolytic lesions redemonstrated compatible with the patient's known multiple myeloma. CTA of the chest shows no acute pulmonary emboli but does show chronic pulmonary emboli. Numerous osteolytic skeletal lesions are redemonstrated. Labs showed initial troponin of 14.9 delta troponin 17.4. Discussed the case with Dr. Grewal who will evaluate the patient for admission. Impression & Plan Headache, Chest pain, Myeloma Discharge Plan Visit Data Chief Complaint: Headache Stated Complaint: POSSIBLE HEART ATTACK REF BY DR BYERS ED Provider: Christian Mullen Discharge Problem: Headache, Chest pain, Myeloma Patient Disposition: Admitted As Inpatient
[2022-06-10 06:23] LABS: INR 1.7 (0.9-1.1); Prothrombin Time 17.8 Seconds (9.0-12.0)
[2022-06-10 06:38] LABS: Hematocrit (blood only) 29.6 % (34.1-44.9); Hemoglobin 9.7 g/dl (12.0-16.0); Mean Corpuscular Hemoglobin 33.4 pg (25.0-34.0); Mean Corpuscular Hgb Conc 32.8 g/dL (32.0-36.0); Mean Corpuscular Volume 102.1 fL (80.0-100.0); Mean Platelet Volume 10.7 fL (9.4-12.3); Platelet Count 128 K/uL (130-400); RDW Standard Deviation 64.6 fL (36.4-46.3); White Blood Count 3.99 K/ul (4.8-10.8)
[2022-06-10 06:39] LABS: Basophils # (auto) 0.01 K/uL (0-0.2); Basophils % (auto) 0.3 %; Eosinophils # (auto) 0.09 K/uL (0-0.50); Eosinophils % (auto) 2.3 %; Immature Granulocytes # (auto) 0.02 K/uL (0.00-0.02); Immature Granulocytes % (auto) 0.5 %; Lymphocytes # (auto) 0.69 K/uL (1.2-3.4); Lymphocytes % (auto) 17.3 %; Monocytes # (auto) 0.81 K/uL (0.24-0.82); Monocytes % (auto) 20.3 %; Neutrophils # (auto) 2.37 K/uL (1.4-6.5); Neutrophils % (auto) 59.3 %; Ovalocytes 1+; Polychromasia 1+
[2022-06-10 06:46] LABS: Troponin I High Sensitivity 14.2 pg/ml (0-14)
[2022-06-10 06:52] LABS: Albumin Level 3.1 gm/dl (3.4-5.0); BUN Creatinine Ratio 14.6 (10-20); Bilirubin,Total 0.5 mg/dl (0.2-1.0); Calcium 8.4 mg/dl (8.5-10.1); Est GFR (African American) 77.2 ml/min; Est GFR (Non-African American) 66.6 ml/min; Total Protein 6.2 gm/dl (6.0-8.3)
[2022-06-10] MEDS: INSULIN ASPART PER UNIT SC SCH ×3 (07:31→17:13)
--- NOTE | 2022-06-10 08:12 | Hospitalist Progress Note ---
Date of Service June 10, 2022 Assessment & Plan (1) Chest pain: Plan: Patient with recent TAVR for severe with CHF, had been doing well at home until brief episode of SHEPHERD/L neck pain and arm pain with reported chest discomfort (although denied this to me) Trop less than prior, no CP reported ECHO w/ appropriate aortic valve replacement, notes pulm HTN When I saw patient, more complaints of a headache across forehead/pressure behind her L eye but had not received any tylenol or pain control. Prior fall in hospital but imaging w/o acute fractures. Improvement/resolution in pain after tylenol and lidocaine patch Did have some anemia (chronic), Venofer IV x 1 and to f/u with Dr Allen tomorrow for labs/continued infusions if needed as well discuss tx for her MM ALso, patient w/ hx PE/DVT on coumadin. INR 1.8 (home check) after Dr Byers appointment, and to be on 10mg sundays/8mg all other days. Extra 3mg dose given for morning 06/10 as did not get full dose on 06/09 and to get 10mg coumadin prior to discharge and follow up with Dr Byers who manages her coumadin. Messaged PCP regarding such. (2) Coronary artery disease: Plan: Chronic. Mild elevation on serial troponins (>expected for female, however, lower than patient's prior values. appx 20% increase on repeat), decreased on repeat troponin Continued ASA, atorvastatin Follow up with Dr Bethea/Mateo Pan arranged for June 23. Also to begin cardiac rehab. (3) S/P TAVR (transcatheter aortic valve replacement): Plan: Patient had TAVR performed at [facility] on 05/27/22. Procedure was well tolerated. She had a followup appointment with [facility] scheduled for tomorrow, 06/10/22 at 14:00. No evidence of failure on exam. CTA chest with aortic valvular endograft in place. 2d echo w/ appropriately functioning valve F/u cards, she stated she wanted [place] [facility], arrangements made. (4) (HFpEF) heart failure with preserved ejection fraction: Plan: Compensated HFpEF Continued home medications (5) Depression: Plan: Chronic. Stable -Continued Effexor (6) Hyperlipidemia: Plan: Chronic. Stable -Continued Atorvastatin (7) Sleep apnea: Plan: Chronic. CPAP at home -Continued nocturnal CPAP 8cm H2O qHS (8) 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, type 2: Plan: Chronic. BSG = 121. Last a1c 5.9 but w/ anemia unreliable Held oral while inpatient, BSGs acceptable w/ SSI and resumed home agents at d/c (9) History of pulmonary embolism: Plan: CTA with evidence of chronic PE. Adequate oxygenation, no tachycardia. Patient is on Coumadin with subtherapeutic INR of 1.8. She reports compliance with her medication and checks levels at home Continued Coumadin, but given 5mg 06/09 which was 3mg less than regular dose. Given 3mg this morning and scheduled 10mg prior to discharge to boost levels as has been subtherapeutic and was bridging with lovenox after discharge from [place] but is no longer bridging. Continue coumadin/INR checks as directed for upcoming week, patient with machine at home No evidence for DVT on exam but to monitor for any signs (10) Myeloma: Plan: Patient follows with Dr. Allen of [facility]. Does have osteolytic lesions on CT of the head, not new finding CT chest w/ endplate deformities, non painful on exam but did report fall during last admission to her knee, no other injury reported at that time Continued home revlimid Patient scheduled to have a PET on 06/14/22 as prior rescheduled due to machine be ing down in beginning of May F/u heme/onc tomorrow 06/11 Plan discharged home with continued HH through [facility] Given 10mg coumadin prior to discharge and to monitor for any s/sx DVT/PE and continue management of her warfarin with Dr Byers (has machine at home that she uses to check) Admission and Anticipated Discharge Date Admission Date: June 09, 2022 Subjective Patient evaluated this morning States not CP that brought her in but headache and pressure behind her L eye (does not affect vision) with radiation down her neck and into her arm. CT head with spots from her myeloma and she is wondering if possibly related. Still has discomfort but manageable and would ideally like to go home. Denied acute trauma but did have a fall when she was in the hospital last stay prior to her TAVR. No CP or SOB reported. Willing to try lidocaine patch for comfort and monitor. Also asked RN to provide dose of tylenol as had not been provided as patient previously denied pain although she states it's been present since admit but can come and go. No palpitations/lightheadedness reported. IV Venofer ordered. She states she gets IV Venofer with Dr Allen, appointment for tomorrow. Dr Byers manages her coumadin and stated day prior INR 1.8 and she is to be on 10mg Sundays, 8mg all other days and has repeat INR for next week scheduled. Ride not available until later tonight but will monitor and plan for d/c if possible. Discussed with pharmacy and patient got "extra 5mg" coumadin last night but did not get usual coumadin and 3mg behind and will give this morning, resume usual 8mg daily for this afternoon and have pt repeat labs next week as prior instructed by Dr Byers. Results & Data Results & Data ([facility]) Vital Signs (Past 12 Hours) Vital Signs Temp Pulse Pulse Resp BP BP Pulse Ox 06/10/22 08:07 36.8 C 84 20 128/72 98 06/10/22 07:30 85 22 06/10/22 07:00 88 25 H 06/10/22 06:00 87 24 97/57 L 95 06/10/22 04:00 80 22 117/55 L 93 06/10/22 03:27 88 24 98 06/10/22 00:52 85 22 113/71 94 06/09/22 23:00 89 18 122/63 97 06/09/22 23:35 90 22 96 06/09/22 20:29 06/09/22 20:29 88 18 122/67 96 O2 Del Method O2 Flow Rate 06/10/22 08:07 Room Air 06/10/22 07:30 06/10/22 07:00 06/10/22 06:00 Room Air 06/10/22 04:00 CPAP 06/10/22 03:27 2 06/10/22 00:52 Room Air 06/09/22 23:00 Room Air 06/09/22 23:35 2 06/09/22 20:29 Room Air 06/09/22 20:29 Room Air Laboratory Results 06/10/22 06/10/22 06/10/22 Range/Units 05:35 05:35 05:35 WBC 3.99 L (4.8-10.8) K/ul RBC 2.90 L (3.93-5.22) M/uL Hgb 9.7 L (12.0-16.0) g/dl Hct 29.6 L (34.1-44.9) % MCV 102.1 H (80.0-100.0) fL MCH 33.4 (25.0-34.0) pg MCHC 32.8 (32.0-36.0) g/dL RDW Std Deviation 64.6 H (36.4-46.3) fL RDW Coeff of Giuseppe 17.0 H (11.5-14.5) % Plt Count 128 L (130-400) K/uL MPV 10.7 (9.4-12.3) fL Immature Gran % (Auto) 0.5 % Neut % (Auto) 59.3 % Lymph % (Auto) 17.3 % [place] % (Auto) 20.3 % Eos % (Auto) 2.3 % Baso % (Auto) 0.3 % Neut # (Auto) 2.37 (1.4-6.5) K/uL Lymph # (Auto) 0.69 L (1.2-3.4) K/uL [place] # (Auto) 0.81 (0.24-0.82) K/uL Eos # (Auto) 0.09 (0-0.50) K/uL Baso # (Auto) 0.01 (0-0.2) K/uL Immature Gran # (Auto) 0.02 (0.00-0.02) K/uL Polychromasia 1+ Ovalocytes 1+ PT 17.8 H (9.0-12.0) Seconds INR 1.7 H (0.9-1.1) APTT (21.0-31.0) Seconds PTT Ratio Sodium 137 (136-145) mmol/L Potassium 4.0 (3.5-5.1) mmol/L Chloride 104 (98-107) mmol/L Carbon Dioxide 26 (21-32) mmol/L Anion Gap 7 (3-11) BUN 12 (6-23) mg/dl Creatinine 0.82 (0.6-1.2) mg/dl Est Cr Clr Drug Dosing 55.0 Est GFR ( Amer) 77.2 ml/min Est GFR (Non-Af Amer) 66.6 ml/min BUN/Creatinine Ratio 14.6 (10-20) Glucose 103 H (70-99(Fasting)) mg/dl Calcium 8.4 L (8.5-10.1) mg/dl Magnesium (1.7-2.4) mg/dl Total Bilirubin 0.5 (0.2-1.0) mg/dl Direct Bilirubin 0.0 (0-0.2) mg/dl AST 19 (13-39) U/L ALT 11 (7-52) U/L Alkaline Phosphatase 51 (34-104) U/L Troponin I High Sens 14.2 H (0-14) pg/ml Total Protein 6.2 (6.0-8.3) gm/dl Albumin 3.1 L (3.4-5.0) gm/dl Globulin (2.5-4.0) gm/dl Albumin/Globulin Ratio (0.9-2) SARS-CoV-2, RNA, NAAT (NEGATIVE) 06/09/22 06/09/22 06/09/22 Range/Units 22:03 20:19 20:19 WBC (4.8-10.8) K/ul RBC (3.93-5.22) M/uL Hgb (12.0-16.0) g/dl Hct (34.1-44.9) % MCV (80.0-100.0) fL MCH (25.0-34.0) pg MCHC (32.0-36.0) g/dL RDW Std Deviation (36.4-46.3) fL RDW Coeff of Giuseppe (11.5-14.5) % Plt Count (130-400) K/uL MPV (9.4-12.3) fL Immature Gran % (Auto) % Neut % (Auto) % Lymph % (Auto) % [place] % (Auto) % Eos % (Auto) % Baso % (Auto) % Neut # (Auto) (1.4-6.5) K/uL Lymph # (Auto) (1.2-3.4) K/uL [place] # (Auto) (0.24-0.82) K/uL Eos # (Auto) (0-0.50) K/uL Baso # (Auto) (0-0.2) K/uL Immature Gran # (Auto) (0.00-0.02) K/uL Polychromasia Ovalocytes PT (9.0-12.0) Seconds INR (0.9-1.1) APTT (21.0-31.0) Seconds PTT Ratio Sodium (136-145) mmol/L Potassium (3.5-5.1) mmol/L Chloride (98-107) mmol/L Carbon Dioxide (21-32) mmol/L Anion Gap (3-11) BUN (6-23) mg/dl Creatinine (0.6-1.2) mg/dl Est Cr Clr Drug Dosing Est GFR ( Amer) ml/min Est GFR (Non-Af Amer) ml/min BUN/Creatinine Ratio (10-20) Glucose (70-99(Fasting)) mg/dl Calcium (8.5-10.1) mg/dl Magnesium 1.9 (1.7-2.4) mg/dl Total Bilirubin (0.2-1.0) mg/dl Direct Bilirubin (0-0.2) mg/dl AST (13-39) U/L ALT (7-52) U/L Alkaline Phosphatase (34-104) U/L Troponin I High Sens 17.4 H (0-14) pg/ml Total Protein (6.0-8.3) gm/dl Albumin (3.4-5.0) gm/dl Globulin (2.5-4.0) gm/dl Albumin/Globulin Ratio (0.9-2) SARS-CoV-2, RNA, NAAT NEGATIVE (NEGATIVE) 06/09/22 06/09/22 06/09/22 Range/Units 14:48 14:48 14:48 WBC 4.74 L (4.8-10.8) K/ul RBC 3.07 L (3.93-5.22) M/uL Hgb 10.2 L (12.0-16.0) g/dl Hct 32.0 L (34.1-44.9) % MCV 104.2 H (80.0-100.0) fL MCH 33.2 (25.0-34.0) pg MCHC 31.9 L (32.0-36.0) g/dL RDW Std Deviation 65.9 H (36.4-46.3) fL RDW Coeff of Giuseppe 17.0 H (11.5-14.5) % Plt Count 146 (130-400) K/uL MPV 10.5 (9.4-12.3) fL Immature Gran % (Auto) 0.2 % Neut % (Auto) 61.9 % Lymph % (Auto) 17.7 % [place] % (Auto) 17.7 % Eos % (Auto) 2.1 % Baso % (Auto) 0.4 % Neut # (Auto) 2.93 (1.4-6.5) K/uL Lymph # (Auto) 0.84 L (1.2-3.4) K/uL [place] # (Auto) 0.84 H (0.24-0.82) K/uL Eos # (Auto) 0.10 (0-0.50) K/uL Baso # (Auto) 0.02 (0-0.2) K/uL Immature Gran # (Auto) 0.01 (0.00-0.02) K/uL Polychromasia Ovalocytes PT 18.8 H (9.0-12.0) Seconds INR 1.8 H (0.9-1.1) APTT 33.0 H (21.0-31.0) Seconds PTT Ratio 1.2 Sodium 139 (136-145) mmol/L Potassium 4.2 (3.5-5.1) mmol/L Chloride 105 (98-107) mmol/L Carbon Dioxide 28 (21-32) mmol/L Anion Gap 6 (3-11) BUN 15 (6-23) mg/dl Creatinine 0.83 (0.6-1.2) mg/dl Est Cr Clr Drug Dosing Not Reportable Est GFR ( Amer) 76.1 ml/min Est GFR (Non-Af Amer) 65.7 ml/min BUN/Creatinine Ratio 18.1 (10-20) Glucose 121 H (70-99(Fasting)) mg/dl Calcium 8.8 (8.5-10.1) mg/dl Magnesium (1.7-2.4) mg/dl Total Bilirubin 0.3 (0.2-1.0) mg/dl Direct Bilirubin (0-0.2) mg/dl AST 27 (13-39) U/L ALT 12 (7-52) U/L Alkaline Phosphatase 53 (34-104) U/L Troponin I High Sens 14.9 H D (0-14) pg/ml Total Protein 6.6 (6.0-8.3) gm/dl Albumin 3.4 (3.4-5.0) gm/dl Globulin 3.2 (2.5-4.0) gm/dl Albumin/Globulin Ratio 1.1 (0.9-2) SARS-CoV-2, RNA, NAAT (NEGATIVE) Diagnostic Findings Chest CTA 06/09/22 20:30 CT angio chest PE protocol HISTORY: 82 years-old Female with ro PE. Acute shortness of breath TECHNIQUE: Multiple CTA images of the chest were obtained after the intravenous administration of 117 ml Optiray. Coronal and sagittal MIPS were obtained from the axial data set and were submitted for review. All measurements were obtained according to NASCET criteria. A dose lowering technique was utilized adhering to the principles of ALARA. COMPARISON: PET CT 07/23/2019, CT abdomen and pelvis 03/01/2022 FINDINGS: CTA: Moderate cardiomegaly. Left subclavian pacer. Aortic valvular endograft. Moderate to extensive coronary artery calcifications. Atherosclerosis of the thoracic aorta without aneurysm or dissection. There is patency of the imaged great vessels with descending thoracic aortic tortuosity. Unremarkable pulmonary artery. No occlusive pulmonary emboli are identified. Minimal linear peripheral nonocclusive filling defects are noted within segmental and subsegmental pulmonary arterial branches within the right lower lobe. The segmental and subsegmental branches within the left lower lobe are suboptimally visualized secondary to respiratory motion artifact. CT CHEST: Heterogeneity of the thyroid with atrophic left thyroid lobe. No pathologically enlarged lymph nodes are identified. 3 cm hypodense cystic structure of the medial right breast previously measured 2.7 cm. Mild subsegmental linear bibasilar atelectasis/scarring. There is no pneumothorax, pleural effusion, airspace consolidation or overt pulmonary edema. There are no suspicious pulmonary nodules or masses. 3 mm subpleural solid nodule of the basal right lower lobe on image 73 is likely unchanged. Central airways are patent. Surgical clip of the proximal stomach. Cholecystectomy. 3.2 cm left renal cyst. Mild nonspecific left perinephric stranding. Unremarkable soft tissues. Numerous osteolytic skeletal lesions are redemonstrated. Decreased size of the soft tissue component involving the anterior right third rib, now with healing sclerosis. There are several healed chronic appearing right-sided rib fractures anterolaterally. Age-indeterminate mild compression deformities are noted at T1, T4, T5 and T6. Mild superior endplate compression at L2 is new from the 03/01/2022 exam. Postoperative changes of the right humerus. IMPRESSION: 1. No acute pulmonary emboli identified. Subtle linear nonocclusive filling def ects are noted within segmental and subsegmental pulmonary arterial branches within the right lower lobe suggestive of chronic pulmonary emboli. 2. Cardiomegaly with mild subsegmental bibasilar atelectasis. 3. Numerous osteolytic skeletal lesions are redemonstrated compatible with the patient's clinical diagnosis of multiple myeloma. 4. Mild acute to subacute superior endplate compression deformity at L2 without retropulsion, new from 03/01/2022. 5. Age-indeterminate upper to mid thoracic compression deformities without retropulsion. Age-indeterminate, however are new from 07/23/2019. ACT 112: Negative or not required by law. The above report was generated using voice recognition software. It may contain grammatical, syntax or spelling errors. Electronically signed by: Zane Portillo M.D. 06/09/2022 9:[address] 06/09/22 20:30 CT head/brain wo con CLINICAL HISTORY: 82 years-old Female with shepherd. Acute headache TECHNIQUE: Multiple axial CT images of the head were obtained without contrast. A dose lowering technique was utilized adhering to the principles of ALARA. CT DOSE: 1751.08 mGy.cm COMPARISON: 03/06/2021 FINDINGS: No acute intracranial hemorrhage, midline shift, intracranial mass, hydrocephalus, territorial ischemia or abnormal extra-axial collection. Age- related involutional changes. White matter hypodensities suggestive of chronic microvascular ischemic disease. No acute calvarial fracture. Numerous osteolytic lesions redemonstrated compatible with the patient's known history of multiple myeloma. Prior bilateral lens repair. The paranasal sinuses, mastoid air cells, and middle ear cavities are clear. IMPRESSION: 1. No acute intracranial abnormality. 2. Osteolytic lesions redemonstrated compatible with the patient's known clinical history multiple myeloma. ACT 112: Negative or not required by law. The above report was generated using voice recognition software. It may contain grammatical, syntax or spelling errors. Electronically signed by: Zane Portillo M.D. 06/09/2022 9:17 PM PG Care Time/CCT Total # of Minutes Spent Total Time Spent with Patient: Total time spent is greater than 50% in coordination of care (as documented) at patient's floor/unit and/or counseling patient: Coding Diagnoses Chest pain R07.9 Chest pain type: unspecified Coronary artery disease I25.10 S/P TAVR (transcatheter aortic valve replacement) Z95.2 (HFpEF) heart failure with preserved ejection fraction I50.33 Heart failure chronicity: acute on chronic Depression F32.9 Depression Type: major depressive disorder Major depression recurrence: unspecified whether recurrent Active/Remission status: remission status unspecified Hyperlipidemia E78.5 Hyperlipidemia type: unspecified Sleep apnea G47.30 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, type 2 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: 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 mcc use 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 complication status: without complication History of pulmonary embolism Z86.711 Myeloma C90.00 Multiple myeloma remission status: unspecified (1) Chest pain Chest pain type: unspecified Qualified Code(s): R07.9 - Chest pain, unspecified (2) (HFpEF) heart failure with preserved ejection fraction Heart failure chronicity: acute on chronic Qualified Code(s): I50.33 - Acute on chronic diastolic (congestive) heart failure (3) Depression Depression Type: major depressive disorder Major depression recurrence: unspecified whether recurrent Active/Remission status: remission status unspecified Qualified Code(s): F32.9 - Major depressive disorder, single episod e, unspecified (4) Hyperlipidemia Hyperlipidemia type: unspecified Qualified Code(s): E78.5 - Hyperlipidemia, unspecified (5) 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
[2022-06-10 08:52] LABS: Magnesium 1.9 mg/dl (1.7-2.4)
[2022-06-10] MEDS ORDERED: VENLAFAXINE HCL XR 75 MG CAPXR PO SCH (09:00)
[2022-06-10] MEDS ORDERED: LANTUS PER UNIT CHARGE SQ SCH (09:00)
[2022-06-10] MEDS ORDERED: POTASSIUM CHLORIDE CRTAB 20 MEQ TABCR PO SCH (09:00)
[2022-06-10] MEDS ORDERED: FUROSEMIDE 40 MG TAB PO SCH (09:00)
[2022-06-10] MEDS ORDERED: ASPIRIN 81 MG ECTAB PO SCH (09:00)
[2022-06-10] MEDS ORDERED: ACYCLOVIR 400 MG TAB PO SCH (09:00)
[2022-06-10] MEDS ORDERED: ATORVASTATIN 10 MG TAB PO SCH (09:00)
[2022-06-10 09:11] LABS: Ferritin 328.2 ng/ml (8-388)
--- NOTE | 2022-06-10 09:12 | XCELERA ---
[id number]
[2022-06-10] MEDS ORDERED: IRON SUCROSE 200 MG in 0.9 % SODIUM CHLORIDE 100 ML IV ONE (10:00)
[2022-06-10] MEDS ORDERED: LIDOCAINE 5% 1 PATCH TD SCH (10:45)
[2022-06-10] MEDS ORDERED: WARFARIN SOD 3 MG TAB PO ONE (11:15)
--- NOTE | 2022-06-10 15:18 | Discharge Summary ---
Date of Service June 10, 2022 Admission HPI Per Admitting Provider Chantel Roy is a pleasant 82yo female with history of HFpEF, severe s/p TAVR performed by Dr. Weber 05/27/22 at [facility], complete heart block s/p permanent pacer placement, DM, HLP presenting from home with headache and left sided chest discomfort that started suddenly this afternoon at 12:00 while patient was at home resting. Patient's headache fairly severe, 5/10, aching involving the left side of her face and neck and behind her left eye. She denies facial swelling, redness, visual changes, pain with eye movement. Denies focal numbness/tingling/weakness/nausea. She took an Oxycodone at home with no improvement. Patient also with dull pain in the left side of her chest which started at the same time. Pain 3/10 in severity with radiation down the left arm. Somewhat pleuritic in nature. Non-exertional, non-positional. She denies diaphoresis, dizziness, nausea, palpitations. She does have some mild shortness of breath as well. Chest pain has since resolved. Patient conveyed these symptoms to her home health nurse that called today. The home health nurse then called patient's PCP and was instructed to come to the ER. In the ER, patient afebrile, HD stable, non-toxic in appearance. ER Course: Abhilash Sandra Admission Exam Per Admitting Provider General: patient resting comfortably, NAD, non-toxic in appearance, AA&O x 4 Skin: warm, dry, intact, no rashes or lesions HEENT: NC/AT, PERRL, EOMI, anicteric sclera, conjunctiva without injection, external ear normal to inspection and nontender, nares patent, moist mucus membranes, dentition intact, no oropharyngeal lesions, neck supple, trachea midline, no LAD, no thyromegaly, no JVD, tenderness with palpation of left sinus and eye, no pain with eye movement Heart: +S1/S2, regular, 3/6 AARON across precordium Lungs: equal air entry bilaterally, no rales/rhonchi/wheezes Abd: +BS, soft, NT/ND, no masses/organomegaly/ascites Ext: warm, 2+ pulses in UE/LE bilaterally, no clubbing/cyanosis or edema, no hematoma in groins Neuro: nonfocal, patient AA&O x 4, speech intact, no facial droop, moving all extremities on command with equal strength 5/5 Principal Diagnosis Headache, Chest Discomfort Discharge Exam General: WN/WD obese female sitting up in chair, NAD, AOX4, pleasant and cooperative HEENT: head atraumatic, normocephalic, mmm, trachea midline, no facial tenderness, visual howell intact by confrontation Chest: pacemaker Resp: CTAB, diminished in the bases, no w/r, on room air CV: RR, 3/6 systolic murmur, no gallop, no calf edema/tenderness, trace dependent pedal edma, pulses palpable GI:+BS, soft, nontender : no almaguer MSK/Neuro: moves all extremities, no focal deficits, no facial droop, CN intact grossly, strength equal throughout Skin: warm, dry, several areas of ecchymosis from lab draws Discharge Data Allergies Allergy/AdvReac Type Severity Reaction Status Date / Time adhesive tape AdvReac Mild Skin rash Verified 06/09/22 10:09 Consultations 06/09/22 21:43 ED Decision to Admit Stat Ordered Studies Chest CTA 06/09/22 20:30 CT angio chest PE protocol HISTORY: 82 years-old Female with ro PE. Acute shortness of breath TECHNIQUE: Multiple CTA images of the chest were obtained after the intravenous administration of 117 ml Optiray. Coronal and sagittal MIPS were obtained from the axial data set and were submitted for review. All measurements were obtained according to NASCET criteria. A dose lowering technique was utilized adhering to the principles of ALARA. COMPARISON: PET CT 07/23/2019, CT abdomen and pelvis 03/01/2022 FINDINGS: CTA: Moderate cardiomegaly. Left subclavian pacer. Aortic valvular endograft. Moderate to extensive coronary artery calcifications. Atherosclerosis of the thoracic aorta without aneurysm or dissection. There is patency of the imaged great vessels with descending thoracic aortic tortuosity. Unremarkable pulmonary artery. No occlusive pulmonary emboli are identified. Minimal linear peripheral nonocclusive filling defects are noted within segmental and subsegmental pulmonary arterial branches within the right lower lobe. The segmental and subsegmental branches within the left lower lobe are suboptimally visualized secondary to respiratory motion artifact. CT CHEST: Heterogeneity of the thyroid with atrophic left thyroid lobe. No pathologically enlarged lymph nodes are identified. 3 cm hypodense cystic structure of the medial right breast previously measured 2.7 cm. Mild subsegmental linear bibasilar atelectasis/scarring. There is no pneumothorax, pleural effusion, airspace consolidation or overt pulmonary edema. There are no suspicious pulmonary nodules or masses. 3 mm subpleural solid nodule of the basal right lower lobe on image 73 is likely unchanged. Central airways are patent. Surgical clip of the proximal stomach. Cholecystectomy. 3.2 cm left renal cyst. Mild nonspecific left perinephric stranding. Unremarkable soft tissues. Numerous osteolytic skeletal lesions are redemonstrated. Decreased size of the soft tissue component involving the anterior right third rib, now with healing sclerosis. There are several healed chronic appearing right-sided rib fractures anterolaterally. Age-indeterminate mild compression deformities are noted at T1, T4, T5 and T6. Mild superior endplate compression at L2 is new from the 03/01/2022 exam. Postoperative changes of the right humerus. IMPRESSION: 1. No acute pulmonary emboli identified. Subtle linear nonocclusive filling defects are noted within segmental and subsegmental pulmonary arterial branches within the right lower lobe suggestive of chronic pulmonary emboli. 2. Cardiomegaly with mild subsegmental bibasilar atelectasis. 3. Numerous osteolytic skeletal lesions are redemonstrated compatible with the patient's clinical diagnosis of multiple myeloma. 4. Mild acute to subacute superior endplate compression deformity at L2 without retropulsion, new from 03/01/2022. 5. Age-indeterminate upper to mid thoracic compression deformities without retropulsion. Age-indeterminate, however are new from 07/23/2019. ACT 112: Negative or not required by law. The above report was generated using voice recognition software. It may contain grammatical, syntax or spelling errors. Electronically signed by: Zane Portillo M.D. 06/09/2022 9:[address] 06/09/22 20:30 CT head/brain wo con CLINICAL HISTORY: 82 years-old Female with shepherd. Acute headache TECHNIQUE: Multiple axial CT images of the head were obtained without contrast. A dose lowering technique was utilized adhering to the principles of ALARA. CT DOSE: 1751.08 mGy.cm COMPARISON: 03/06/2021 FINDINGS: No acute intracranial hemorrhage, midline shift, intracranial mass, hydroceph alus, territorial ischemia or abnormal extra-axial collection. Age-related involutional changes. White matter hypodensities suggestive of chronic microvascular ischemic disease. No acute calvarial fracture. Numerous osteolytic lesions redemonstrated compatible with the patient's known history of multiple myeloma. Prior bilateral lens repair. The paranasal sinuses, mastoid air cells, and middle ear cavities are clear. IMPRESSION: 1. No acute intracranial abnormality. 2. Osteolytic lesions redemonstrated compatible with the patient's known clinical history multiple myeloma. ACT 112: Negative or not required by law. The above report was generated using voice recognition software. It may contain grammatical, syntax or spelling errors. Electronically signed by: Zane Portillo M.D. 06/09/2022 9:17 PM ECHOCARDIOGRAM Compared with 03/04/2022 study, aortic valve has been replaced, mild pulmonary hypertension now seen but otherwise no signiciant change. LV is normal in structure and function. EF 55-60%. Severe concentric LVH. Bioprosthetic aortic valve, gradient is normal for this prosthetic aortic valve. Moderate mitral annular calcification. Mild mitral regurgitation. RVSP is elevated at 30-40mmHg. There is a pacemaker lead in the right ventricle. Hospital Course (1) Chest pain: Patient with recent TAVR for severe with CHF, had been doing well at home until brief episode of SHEPHERD/L neck pain and arm pain with reported chest discomfort (although denied this to me) Trop 14.9 --> 17.4 --> 14.2 --> 13.7 No CP reported ECHO w/ appropriate aortic valve replacement, notes pulm HTN When I saw patient, more complaints of a headache across forehead/pressure behind her L eye but had not received any tylenol or pain control. Prior fall in hospital but imaging w/o acute fractures. Improvement/resolution in pain after tylenol and lidocaine patch Did have some anemia (chronic), Venofer IV x 1 and to f/u with Dr Allen tomorrow for labs/continued infusions if needed as well discuss tx for her MM ALso, patient w/ hx PE/DVT on coumadin. INR 1.8 (home check) after Dr Byers appointment, and to be on 10mg sundays/8mg all other days. Extra 3mg dose given for morning 06/10 as did not get full dose on 06/09 and to get 10mg coumadin prior to discharge and follow up with Dr Byers who manages her coumadin. Messaged PCP regarding such. (2) Coronary artery disease: Chronic. Mild elevation on serial troponins (>expected for female, however, lower than patient's prior values. appx 20% increase on repeat), decreased on repeat troponin Continued ASA, atorvastatin Follow up with Dr Bethea/Mateo Pan arranged for June 23. Also to begin cardiac rehab. (3) S/P TAVR (transcatheter aortic valve replacement): Patient had TAVR performed at [facility] on 05/27/22. Procedure was well tolerated. She had a followup appointment with [facility] scheduled for 06/10/22 at 14:00 No evidence of failure on exam. CTA chest with aortic valvular endograft in place. 2d echo w/ appropriately functioning valve F/u cards, she stated she wanted to follow up with [facility] Dr Bethea, arrangements made. (4) (HFpEF) heart failure with preserved ejection fraction: Compensated HFpEF Continued home medications (5) Depression: Chronic. Stable -Continued Effexor (6) Hyperlipidemia: Chronic. Stable -Continued Atorvastatin (7) Sleep apnea: Chronic. CPAP at home -Continued nocturnal CPAP 8cm H2O qHS (8) 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, type 2: Chronic. BSG = 121. Last a1c 5.9 but w/ anemia unreliable Held oral while inpatient, BSGs acceptable w/ SSI and resumed home agents at d/c (9) History of pulmonary embolism: CTA with evidence of chronic PE. Adequate oxygenation, no tachycardia. Patient is on Coumadin with subtherapeutic INR of 1.8. She reports compliance with her medication and checks levels at home Continued Coumadin, but given 5mg 06/09 which was 3mg less than regular dose. Given 3mg this morning and scheduled 10mg prior to discharge to boost levels as has been subtherapeutic and was bridging with lovenox after discharge from [facility] but is no longer bridging. Continue coumadin/INR checks as directed for upcoming week, patient with machine at home No evidence for DVT on exam but to monitor for any signs (10) Myeloma: Patient follows with Dr. Allen of [facility]. Does have osteolytic lesions on CT of the head, not new finding CT chest w/ endplate deformities, non painful on exam but did report fall during last admission to her knee, no other injury reported at that time Continued home revlimid Patient scheduled to have a PET on 06/14/22 as prior rescheduled due to machine being down in beginning of May F/u heme/onc tomorrow 06/11 Plan discharged home with continued HH through [facility] Given 10mg coumadin prior to discharge and to monitor for any s/sx DVT/PE and continue management of her warfarin with Dr Beyrs (has machine at home that she uses to check) Total Time Total Time Spent Total Time Spent (In Minutes): 55 Discharge Plan Discharge Items Patient Disposition: Home - Home Health Services Reason For Visit: CHEST PAIN Discharge Diagnosis: Chest Pain, Headache Goals: You have been hospitalized for an acute medical problem. During your stay at [facility], we have made an effort to correct the problem that brought you to the hospital while keeping you as comfortable as possible. Medications were used to bring your condition under control and your discharge instructions will include directions for any medications you should take after leaving the hospital. Please make sure you see your Primary Care Provider as part of your follow up plan. Activity: Resume your previous activity Non-emergency contact: Primary Care Provider, Hospital Educator and Oncologist Call non-emergency contact if: you have any medication questions, your symptoms worsen and your pain is concerning for you Follow-up/Referrals: Kulwinder Byers MD [Primary Care Provider] - 06/17/22 2:45 pm Mateo Pan PA-C [Physician Physical Education Aide] - (June 23) Jorge Allen MD [Surgeon] - Diet: Carb Consistent or DM2 and Heart Healthy Addtl Attending Provider Instructions: You have been hospitalized for complaints of chest discomfort, headache, and neck pain. Head CT does not show any evidence for stroke but does note chronic lesions from your myeloma that you have an appointment with Dr Allen tomorrow for follow up and outpatient PET scan already in place. You did get a dose of iron in the IV while in the hospital and can continue treatment with Dr Allen as an outpatient. ECHO (ultrasound) of your heart showed appropriately functioning aortic valve. Troponin levels were not significantly elevated. CT of the chest showed chronic pulmonary emboli, but no new acute PE. It does notes multiple lesions compatible with your diagnosis with multiple myeloma and does show some changes in the spine which can be compression deformities. We were able to confirm appointment with Mateo Pan/Dr Bethea for June 23. They will be working to get cardiac rehab arranged. You should continue to monitor your INR as instructed by Dr Byers. I let him know you got 10mg dose today and are going to continue on your usual 10mg on sundays and 8mg all other days for the time being until back into normal range. Please monitor for any increased leg swelling or pain, or for any increased shortness of breath given your history of clotting. You can continue Tylenol as needed for headache but be mindful that pain medications like the oxycodone you have can cause a rebound headache as well. It did appear you had some tenseness to the muscles in your next and we used a lidocaine patch with good relief. You can continue these over the counter at home as needed. Please follow up with Dr Byers in the next 7-10 days to monitor your progress. Please return to the ER with any recurrence of symptoms, chest pain, shortness of breath, bleeding, or for any other symptoms concerning for you. It has been a pleasure being a part of the medical team providing for you while you have been in the hospital. Take care! Pending Studies at Discharge: No Stand-Alone Forms: My [facility] Medications and DC Order Prescriptions: Continued venlafaxine 75 mg capsule,extended release 24hr 75 mg PO QAM Qty: 30 5RF loratadine 10 mg capsule 10 mg PO DAILY PRN (Reason: Allergy Symptoms) Qty: 30 5RF warfarin 4 mg tablet See Rx Instructions .ROUTE .COMPLEX Qty: 180 1RF Protocol: Dose Management Condition: Tuesday Dose/Route: 12 mg Instruction: 3 x 4 mg tablets Condition: Tuesday Dose/Route: 8 mg Instruction: 2 x 4 mg tablets Condition: Tuesday Dose/Route: 8 mg Instruction: 2 x 4 mg tablets Condition: Tuesday Dose/Route: 8 mg Instruction: 2 x 4 mg tablets Condition: Dose/Route: 8 mg Instruction: 2 x 4 mg tablets Condition: Tuesday Dose/Route: 8 mg Instruction: 2 x 4 mg tablets Condition: Tuesday Dose/Route: 8 mg Instruction: 2 x 4 mg tablets Protocol Text: Adjustment Start Date: Tuesday06/04/22 INR Value: 1.2 INR Date: 06/04/22 Recheck Date: 06/11/22 Dose Instruction: 8 MG SEE PROTOCOL= 8 MG TAKEN BY MOUTH ON MON, , TH, TUE & SAT., THEN 10 MG ON SUN & TUE. Rx Instructions: 8 MG SEE PROTOCOL= 8 MG TAKEN BY MOUTH ON MON, , TUE, TH, TUE & SAT., THEN 9 MG ON SUN (DME) Wheeled Walker [facility] See Rx Instructions .Route Qty: 1 0RF Rx Instructions: WALKER WITH WHEELS AND SEAT LENGTH OF NEEDS: 99 MONTHS calcium carbonate [Calcium 600] 600 mg calcium (1,500 mg) tablet 600 mg PO DAILY acetaminophen 650 mg tablet extended release 650 mg PO DAILY PRN (Reason: pain) triamcinolone acetonide 0.1 % cream 1 applic topical BID PRN (Reason: dermatitis) nystatin 100,000 unit/gram powder 1 applic topical DAILY PRN (Reason: Skin Irritation) Qty: 60 1RF K-Phos Original 500 mg tablet,soluble 500 mg PO QAM cholecalciferol (vitamin D3) 2,000 unit tablet 2,000 unit PO QAM amoxicillin 500 mg capsule 2,000 mg PO ONCE PRN (Reason: DENTAL APPOINTMENTS) Qty: 4 oxycodone 5 mg tablet 5 mg PO Q6H PRN (Reason: pain) Qty: 28 ascorbic acid (vitamin C) 500 mg tablet 1,000 mg PO QAM cyanocobalamin (vitamin B-12) 500 mcg tablet 1,000 mcg PO QAM acyclovir 400 mg tablet 400 mg PO BID Revlimid 10 mg capsule 10 mg PO DAILY Rx Instructions: 3 weeks on 1 week off multivitamin Tablet 1 tab PO QAM furosemide 40 mg Tablet 40 mg PO QAM Qty: 30 0RF potassium chloride 20 mEq Tablet,Er Particles/Crystals 20 meq PO DAILY Qty: 30 0RF ketotifen fumarate [Alaway] 0.025 % (0.035 %) Drops 1 drp OPHTHALMIC (EYE) BID Metamucil (with sugar) 3.4 gram Powder In Packet 1 ea PO QAM Qty: 1 0RF atorvastatin 10 mg tablet 10 mg PO QAM metformin 500 mg tablet extended release 24 hr 1,000 mg PO UD Rx Instructions: on hold until 11 of june normally takes in evening warfarin 1 mg tablet 1 mg PO UD Protocol: Dose Management Condition: Tuesday Dose/Route: 12 mg Instruction: 3 x 4 mg tablets Condition: Tuesday Dose/Route: 8 mg Instruction: 2 x 4 mg tablets Condition: Tuesday Dose/Route: 8 mg Instruction: 2 x 4 mg tablets Condition: Tuesday Dose/Route: 8 mg Instruction: 2 x 4 mg tablets Condition: Dose/Route: 8 mg Instruction: 2 x 4 mg tablets Condition: Tuesday Dose/Route: 8 mg Instruction: 2 x 4 mg tablets Condition: Tuesday Dose/Route: 8 mg Instruction: 2 x 4 mg tablets Protocol Text: Adjustment Start Date: Tuesday06/04/22 INR Value: 1.2 INR Date: 06/04/22 Recheck Date: 06/11/22 Rx Instructions: DIRECTED PER INR currently use with 8 mg to= 9mg on sundays aspirin 81 mg Tablet,Delayed Release (Dr/Ec) 81 mg PO QAM Discontinued aspirin [Adult Aspirin Regimen] 81 mg tablet,delayed release (DR/EC) 81 mg PO QAM Cholestyramine Light 4 gram powder 4 g PO DAILY Qty: 210 0RF Rx Instructions: administer w/meal; avoid other meds within 1hr before or 4-6hr after dose Discharge Orders: Discharge Order (Routine); Ordered 06/10/22 Ordered By: Pushpa Guzman/Other Patient Handouts: Managing Type 2 Diabetes Admission Data Admit Date/Time: 06/09/22 22:15 Attending Provider: Gabby Velazco Admit Provider: Amy Grewal Primary Care Provider: Kulwinder Byers Other Providers: Amy Grewal Other Interventions: Discharge Summary Assessment (RN) Last Done: 06/10/22 17:35 Supervising Physician Co-Signing Physician Notes PA Supervision Note: I personally saw and examined the patient. I verified all brink points and agree with CHARI An with the following exceptions and/or additions: S-patient feeling much improved. Denies ever having any chest pain. She did have a headache which is now resolved with Tylenol. She continues to have some pain in the left jaw that is tender to the touch and she is now convinced that this is likely secondary to a bony lesion from her myeloma. No fevers or chills. No shortness of breath or chest pain. Feels ready to go home. O- Vitals reviewed Gen: AAOx3, NAD HEENT: Anicteric sclerae, EOMI, positive tenderness to palpation over left mandible and submandibular region without definite mass palpable, no erythema, no cervical lymphadenopathy CV: RRR 3/6 systolic ejection murmur at the RUSB, nl S1S2 Pulm: CTAB no wcr Abd: +BS soft NT ND no masses or hernias Ext: No edema, 2+ DP pulses Skin: No rashes, warm/dry Neuro: Full strength throughout Labs reviewed A/M-33-fia[age]-old female here with headache and left-sided jaw pain, all resolved except for jaw pain which may indeed be osteolytic lesion, but perhaps some salivary duct blockage? Advised warm compresses, lemon juice, and follow-up with PCP as an outpatient. Stable for discharge to home Coding Level of Care Code 16598 OBS Care - Discharge Diagnoses Chest pain R07.9 Chest pain type: unspecified Coronary artery disease I25.10 S/P TAVR (transcatheter aortic valve replacement) Z95.2 (HFpEF) heart failure with preserved ejection fraction I50.33 Heart failure chronicity: acute on chronic Depression F32.9 Active/Remission status: remission status unspecified Depression Type: major depressive disorder Major depression recurrence: unspecified whether recurrent Hyperlipidemia E78.5 Hyperlipidemia type: unspecified Sleep apnea G47.30 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, type 2 E11.9 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 complication status: without complication 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 group home insulin use: without group home use History of pulmonary embolism Z86.711 Myeloma C90.00 Multiple myeloma remission status: unspecified
[2022-06-10 15:57] VITALS: PULSE 86; TEMP 99
[2022-06-10] MEDS ORDERED: WARFARIN SOD 4 MG TAB PO SCH (16:00)
[2022-06-10 17:10] VITALS: O2SAT 96
[2022-06-10] MEDS ORDERED: WARFARIN SOD 2 MG TAB PO STA (17:20)
--- NOTE | 2022-06-10 17:30 | Electrocardiogram Report ---
Test Reason : Blood Pressure : / mmHG Vent. Rate : 095 BPM Atrial Rate : 095 BPM P-R Int : 204 ms QRS Dur : 164 ms QT Int : 444 ms P-R-T Axes : 038 -89 065 degrees QTc Int : 557 ms Atrial-sensed ventricular-paced rhythm Abnormal ECG When compared with ECG of 06-MAY-2022 22:52, Vent. rate has increased BY 6 BPM Confirmed by Nabil Pena ([id number]) on 06/10/2022 5:29:48 PM Referred By: Kulwinder Byers Confirmed By:Nabil Pena
[2022-06-10 17:36] VITALS: BP 108/72
[2022-06-10] MEDS ORDERED: VENLAFAXINE HCL XR 150 MG CAPXR PO SCH (21:00)
[2022-06-13] MEDS ORDERED: WARFARIN SOD 1 MG TAB PO SCH (16:00)
[2022-06-13] MEDS ORDERED: WARFARIN SOD 10 MG TAB PO SCH (16:00)
[2022-06-13] MEDS ORDERED: WARFARIN SOD 2 MG TAB PO SCH (16:00)
== END 2022-06-10 18:38 | disposition home health service (06) ==
LOC: ED 16:31 → EDINP 16:31 → SUATTDRO 22:15 → 2W 06-10 08:07

== ENCOUNTER 2022-07-10 02:27 | Observation (INO) ==
--- NOTE | 2022-07-10 03:21 | Emergency Department Note ---
History of Present Illness General Chief complaint: Fall Stated complaint: Fall, Dizziness, AMS Time Seen by Provider: 07/10/22 02:33 History of Present Illness Maximum Pain Intensity: 5 82-year-old female with a nonsyncopal fall 2 days ago states she landed on her left side she complains of left shoulder pain she complains of low back pain. This evening she tried to get up from the bathroom she was incontinent of urine due to the fact that she could not make it to the bathroom due to generalized weakness. She typically uses a walker. She sleeps in the recliner according to family. Patient complains of low back pain complains of left shoulder pain denies abdominal pain denies chest pain denies shortness of breath denies numbness or tingling in the legs. Denies slurred speech. There are no other mitigating or alleviating factors Home Medications Medication Instructions Recorded Confirmed Type cholecalciferol (vitamin D3) 50 2,000 unit PO QAM 07/31/19 06/23/22 History mcg (2,000 unit) tablet amoxicillin 500 mg capsule 2,000 mg PO ONCE PRN DENTAL 08/01/19 06/23/22 History APPOINTMENTS #4 caps oxycodone 5 mg tablet 5 mg PO Q6H PRN pain #28 tabs 08/01/19 06/23/22 History acyclovir 400 mg tablet 400 mg PO BID 11/20/19 06/23/22 History lenalidomide 10 mg capsule 10 mg PO DAILY 11/18/20 06/23/22 History (Revlimid) multivitamin 1 tab PO QAM 03/06/21 06/23/22 History venlafaxine 75 mg capsule,extended 75 mg PO QAM #30 caps 10/06/21 06/23/22 Rx release 24 hr loratadine 10 mg capsule 10 mg PO DAILY PRN Allergy 11/02/21 06/23/22 Rx Symptoms #30 caps acetaminophen 650 mg 650 mg PO DAILY PRN pain 12/31/21 06/23/22 History tablet,extended release ascorbic acid (vitamin C) 500 mg 1,000 mg PO QAM 12/31/21 06/23/22 History tablet calcium carbonate 600 mg calcium 600 mg PO DAILY 12/31/21 06/23/22 History (1,500 mg) tablet (Calcium) cyanocobalamin (vitamin B-12) 500 1,000 mcg PO QAM 12/31/21 06/23/22 History mcg tablet triamcinolone acetonide 0.1 % 1 applic topical BID PRN dermatitis 12/31/21 06/23/22 History topical cream warfarin 4 mg tablet See Rx Instructions .Route 02/12/22 06/23/22 Rx .COMPLEX #180 tabs ketotifen fumarate 0.025 % (0.035 1 drp ophthalmic (eye) BID 03/01/22 06/23/22 History %) eye drops (Alaway) psyllium husk (with sugar) 3.4 1 ea PO QAM #1 btl 03/06/22 06/23/22 Rx gram oral powder packet (Metamucil (with sugar)) nystatin 100,000 unit/gram topical 1 applic topical DAILY PRN Skin 03/12/22 06/23/22 Rx powder Irritation #60 grams potassium chloride 20 mEq 20 meq PO DAILY #30 tabs 05/11/22 06/23/22 Rx tablet,extended release(part/cryst) Wheeled Walker #1 ea 05/19/22 06/23/22 Rx atorvastatin 10 mg tablet 10 mg PO QAM 06/09/22 06/23/22 History metformin 500 mg tablet,extended 1,000 mg PO UD 06/09/22 06/23/22 History release 24 hr warfarin 1 mg tablet 1 mg PO UD 06/09/22 06/23/22 History furosemide 40 mg tablet 40 mg PO QAM 06/23/22 History Allergies Allergy/AdvReac Type Severity Reaction Status Date / Time adhesive tape AdvReac Mild Skin rash Verified 06/23/22 09:59 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; s/p surgery, radiation, chemo (receiving weekly oral/IV chemo Fridays + dexamethasone 40mg pretreatment prior to chemo) Pneumonia due to 2019 novel coronavirus Positional vertigo Post herpetic neuralgia hx shingles Post-menopausal bleeding Sepsis Sleep apnea CPAP + 2 LPM O2 qhs Urinary leakage Surgical History H/O surgical biopsy Right distal humerus 11/21/18 History of appendectomy History of bilateral carpal tunnel release History of cataract surgery Bilateral History of cholecystectomy History of endometrial biopsy History of knee replacement procedure of left knee History of knee replacement procedure of right knee History of surgery right distal humerus replacement History of tonsillectomy S/P dilation and curettage S/P tooth extraction S/P tubal ligation Family History Mother , 89yo Myocardial infarction Congestive heart failure Father , Pt unsure of details of father's health history;Knows he had facial cancer Malignant neoplasm of oral cavity Sister , May 2019 of copd Diabetes Breast cancer Son Hypertension Grandmother Diabetes Denies family history of Prostate cancer Lung cancer Colorectal cancer Social History Smoking Status: Never smoker Second Hand Exposure: No; Hx Alcohol Use: No Hx Substance Use: No Preferred Language: Argentine Communication Ability: Effective Visual Impairment: No Limitations Hearing Ability: Normal Law Clerk Required: No Beliefs That Will Affect Care: None marital status: / Current Living Situation: Alone Current Living Situation Comment: family checks in current occupational status: 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 Feels Safe at Home: Yes Childhood Exposure to Second-Hand Smoke: No caffeine: Yes (1 cup/day) during the past year weight has: remained stable Dental Care, Regularly: No Physical Activity Frequency: Does not Exercise Seatbelt Use: always Sunscreen Use: Yes Assistive Devices: Cane, CPAP, Oxygen - at Night and Walker Review of Systems A total of 10 systems reviewed and were otherwise negative Constitutional: no fever Cardiovascular: no chest pain Gastrointestinal: no abdominal pain Musculoskeletal: + back pain Neurologic: + generalized weakness and + tremor(s) Physical Exam Vital Signs Vital Signs - 24 hr 07/10/22 02:40 07/10/22 02:46 Temperature 37.5 C Temperature Source Oral Pulse Rate 92 H Respiratory Rate 22 Respiratory Depth Normal Blood Pressure 105/60 Blood Pressure Mean 75 Pulse Oximetry 93 93 Oxygen Delivery Method Nasal Cannula Nasal Cannula Oxygen Flow Rate 2 2 Sepsis Recent Fever Within 48 Hours Yes Sepsis New/Unexplained Change in Mental Status Yes Sepsis Action Taken by Nursing No Action Required VITAL SIGNS - Vital signs and nursing notes were reviewed. GENERAL - no acute distress. Communicates well with provider and answers questions appropriately. SKIN - Without rashes. HEAD - NC/AT. EYES - PERRL with EOMI bilaterally. Sclera anicteric. Palpebral conjunctiva pink and moist with no injection noted. EARS - No deformities of external structures noted on gross examination bilaterally. NOSE - Midline and without cyanosis. No epistaxis or purulent drainage noted. Septum midline without deviation or septal hematoma noted. MOUTH/OROPHARYNX - Without perioral cyanosis. Buccal mucosa pink and moist NECK - Neck with FROM. Supple to palpation. LUNGS - Chest wall symmetric without accessory muscle use, intercostals retractions, or central cyanosis. Normal vesicular breath sounds CTA B/L. No wheezes, rales, or rhonchi appreciated. CARDIAC - RRR with S1/S2. No murmur, rubs, or gallops appreciated. ABDOMEN - Abdominal contour soft without pulsations or visible masses. BS normoactive all four quadrants. No tenderness, palpable masses, hepatospl enomegaly, or ascites noted. EXTREMITIES - No clubbing or peripheral cyanosis. No pretibial edema present. +5/5 strength noted in UE/LE bilaterally. Tenderness to the left upper extremity at the proximal humerus palpation NEUROLOGIC - Cranial nerves II through XII grossly intact. PSYCH - A&Ox3 and cooperates fully with examiner. Pt is very pleasant and interacts well with examiner. Course Reevaluation(s) Reevaluation #1: Patient is resting in no distress on repeat examination. The case was discussed with the hospitalist for admission due to weakness and lumbar fracture. Patient's x-ray of the left shoulder might indicate that she has an impaction fracture of the proximal humerus she does have tenderness there. I discussed the evaluation with the [facility] hospitalist for admission Time: 05:14 Medical Decision Making Medical Records Attestation: I reviewed the patient's medical records. Home Medications Current Medication List: was personally reviewed by me Laboratory Data Attestation: I reviewed the patient's lab results. Result diagrams: 07/10/22 02:53 07/10/22 02:53 Lab Results 08/27/22 08/27/22 08/27/22 Range/Units 02:53 02:53 02:53 WBC 6.22 (4.8-10.8) K/ul RBC 3.07 L (3.93-5.22) M/uL Hgb 10.2 L (12.0-16.0) g/dl Hct 31.1 L (34.1-44.9) % MCV 101.3 H (80.0-100.0) fL MCH 33.2 (25.0-34.0) pg MCHC 32.8 (32.0-36.0) g/dL RDW Std Deviation 60.6 H (36.4-46.3) fL RDW Coeff of Giuseppe 16.3 H (11.5-14.5) % Plt Count 92 L (130-400) K/uL MPV 10.9 (9.4-12.3) fL Immature Gran % (Auto) 0.6 % Neut % (Auto) 66.0 % Lymph % (Auto) 11.1 % Franklin % (Auto) 20.4 % Eos % (Auto) 1.4 % Baso % (Auto) 0.5 % Neut # (Auto) 4.10 (1.4-6.5) K/uL Lymph # (Auto) 0.69 L (1.2-3.4) K/uL Franklin # (Auto) 1.27 H (0.24-0.82) K/uL Eos # (Auto) 0.09 (0-0.50) K/uL Baso # (Auto) 0.03 (0-0.2) K/uL Immature Gran # (Auto) 0.04 H (0.00-0.02) K/uL Platelet Estimate Decreased L (Normal) Ovalocytes 1+ PT 18.2 H (9.0-12.0) Seconds INR 1.8 H (0.9-1.1) APTT 38.6 H (21.0-31.0) Seconds PTT Ratio 1.4 Sodium 136 (136-145) mmol/L Potassium 3.5 (3.5-5.1) mmol/L Chloride 101 (98-107) mmol/L Carbon Dioxide 26 (21-32) mmol/L Anion Gap 9 (3-11) BUN 21 (6-23) mg/dl Creatinine 1.05 (0.6-1.2) mg/dl Est Cr Clr Drug Dosing 44.4 ml/min Est GFR ( Amer) 57.3 ml/min Est GFR (Non-Af Amer) 49.4 ml/min BUN/Creatinine Ratio 20.0 (10-20) Glucose 152 H (70-99(Fasting)) mg/dl Calcium 8.3 L (8.5-10.1) mg/dl Magnesium 1.7 (1.7-2.4) mg/dl Total Bilirubin 0.5 (0.2-1.0) mg/dl AST 28 (13-39) U/L ALT 20 (7-52) U/L Alkaline Phosphatase 57 (34-104) U/L Troponin I High Sens 18.7 H D (0-14) pg/ml Total Protein 6.6 (6.0-8.3) gm/dl Albumin 3.1 L (3.4-5.0) gm/dl Globulin 3.5 (2.5-4.0) gm/dl Albumin/Globulin Ratio 0.9 (0.9-2) Imaging Data Attestation: I personally reviewed and interpreted this imaging study as follows: Radiologist's Impression: * Preliminary Findings Only See Final Report For Complete Findings CT HEAD: No intracranial hemorrhage, mass-effect or midline shift. There is no abnormal extra axial fluid collection. No evidence of acute infarct. Mild periventricular white matter hypodensities are most consistent with chronic mi croangiopathy. The visualized paranasal sinuses and mastoid air cells are clear. No fracture. Innumerable lucent lesions of the calvarium are concerning for metastatic disease. Radiologist: Carlyn Puente MD 4:34 AM10 days leftPreliminary Findings Only See Final Report For Complete Findings CT L SPINE: Age indeterminate mild L4 compression fracture. No malalignment. No prevertebral soft tissue swelling. Radiologist: Carlyn Puente MD 6:34 AM10 days leftPatient: SURI ADAIR (Female) : 40 Status: ER4:35 AM10 days left ECG Data Attestation: I personally reviewed and interpreted this ECG as follows: Additional Comments: EKG interpreted by me paced rhythm rate of [address] segment elevation or depression left axis deviation MDM Narrative Medical decision making differential diagnosis TIA metabolic derangement dehydration lumbosacral sprain strain contusion fracture generalized weakness, electrolyte abnormality, ambulatory dysfunction. Plan is to check labs EKG CAT scans observe Impression & Plan Compression fx, lumbar spine, Contusion of left shoulder, Weakness Discharge Plan Visit Data Chief Complaint: Fall Stated Complaint: Fall, Dizziness, AMS ED Provider: López Goyal Discharge Problem: Compression fx, lumbar spine, Contusion of left shoulder, Weakness Patient Disposition: Being Evaluated by Hospitalist Forms Stand Alone Forms: [facility] Prescriptions Prescriptions: No Action venlafaxine 75 mg capsule,extended release 24hr 75 mg PO QAM Qty: 30 5RF loratadine 10 mg capsule 10 mg PO DAILY PRN (Reason: Allergy Symptoms) Qty: 30 5RF warfarin 4 mg tablet See Rx Instructions .ROUTE .COMPLEX Qty: 180 1RF Protocol: Dose Management Condition: Tuesday Dose/Route: 12 mg Instruction: 3 x 4 mg tablets Condition: Tuesday Dose/Route: 8 mg Instruction: 2 x 4 mg tablets Condition: Tuesday Dose/Route: 8 mg Instruction: 2 x 4 mg tablets Condition: Tuesday Dose/Route: 8 mg Instruction: 2 x 4 mg tablets Condition: Dose/Route: 8 mg Instruction: 2 x 4 mg tablets Condition: Tuesday Dose/Route: 8 mg Instruction: 2 x 4 mg tablets Condition: Tuesday Dose/Route: 8 mg Instruction: 2 x 4 mg tablets Protocol Text: Adjustment Start Date: Tuesday06/04/22 INR Value: 1.2 INR Date: 06/04/22 Recheck Date: 06/11/22 Dose Instruction: 8 MG SEE PROTOCOL= 8 MG TAKEN BY MOUTH ON TUE, , , FRI & SAT., THEN 10 MG ON SUN & TUE. Rx Instructions: 8 MG SEE PROTOCOL= 8 MG TAKEN BY MOUTH ON TUE, , TUE, , TUE & SAT., THEN 9 MG ON SUN (DME) Wheeled Walker [facility] See Rx Instructions .Route Qty: 1 0RF Rx Instructions: WALKER WITH WHEELS AND SEAT LENGTH OF NEEDS: 99 MONTHS calcium carbonate [Calcium 600] 600 mg calcium (1,500 mg) tablet 600 mg PO DAILY acetaminophen 650 mg tablet extended release 650 mg PO DAILY PRN (Reason: pain) triamcinolone acetonide 0.1 % cream 1 applic topical BID PRN (Reason: dermatitis) nystatin 100,000 unit/gram powder 1 applic topical DAILY PRN (Reason: Skin Irritation) Qty: 60 1RF cholecalciferol (vitamin D3) 2,000 unit tablet 2,000 unit PO QAM amoxicillin 500 mg capsule 2,000 mg PO ONCE PRN (Reason: DENTAL APPOINTMENTS) Qty: 4 oxycodone 5 mg tablet 5 mg PO Q6H PRN (Reason: pain) Qty: 28 ascorbic acid (vitamin C) 500 mg tablet 1,000 mg PO QAM cyanocobalamin (vitamin B-12) 500 mcg tablet 1,000 mcg PO QAM acyclovir 400 mg tablet 400 mg PO BID furosemide 40 mg tablet 40 mg PO QAM Rx Instructions: 20MG DAILY, 3 DAYS 40MG Revlimid 10 mg capsule 10 mg PO DAILY Rx Instructions: 3 weeks on 1 week off multivitamin Tablet 1 tab PO QAM potassium chloride 20 mEq Tablet,Er Particles/Crystals 20 meq PO DAILY Qty: 30 0RF ketotifen fumarate [Alaway] 0.025 % (0.035 %) Drops 1 drp OPHTHALMIC (EYE) BID Metamucil (with sugar) 3.4 gram Powder In Packet 1 ea PO QAM Qty: 1 0RF atorvastatin 10 mg tablet 10 mg PO QAM metformin 500 mg tablet extended release 24 hr 1,000 mg PO UD Rx Instructions: on hold until 11 of june normally takes in evening warfarin 1 mg tablet 1 mg PO UD Protocol: Dose Management Condition: Tuesday Dose/Route: 12 mg Instruction: 3 x 4 mg tablets Condition: Tuesday Dose/Route: 8 mg Instruction: 2 x 4 mg tablets Condition: Tuesday Dose/Route: 8 mg Instruction: 2 x 4 mg tablets Condition: Tuesday Dose/Route: 8 mg Instruction: 2 x 4 mg tablets Condition: Dose/Route: 8 mg Instruction: 2 x 4 mg tablets Condition: Tuesday Dose/Route: 8 mg Instruction: 2 x 4 mg tablets Condition: Tuesday Dose/Route: 8 mg Instruction: 2 x 4 mg tablets Protocol Text: Adjustment Start Date: Tuesday06/04/22 INR Value: 1.2 INR Date: 06/04/22 Recheck Date: 06/11/22 Rx Instructions: DIRECTED PER INR currently use with 8 mg to= 9mg on sundays Referrals Referrals: Kulwinder Byers MD [Primary Care Provider] -
[2022-07-10 03:22] LABS: INR 1.8 (0.9-1.1); Partial Thromboplastin Ratio 1.4; Partial Thromboplastin Time 38.6 Seconds (21.0-31.0); Prothrombin Time 18.2 Seconds (9.0-12.0)
[2022-07-10 03:38] LABS: Troponin I High Sensitivity 18.7 pg/ml (0-14)
[2022-07-10 03:39] LABS: Basophils # (auto) 0.03 K/uL (0-0.2); Basophils % (auto) 0.5 %; Eosinophils # (auto) 0.09 K/uL (0-0.50); Eosinophils % (auto) 1.4 %; Hematocrit (blood only) 31.1 % (34.1-44.9); Hemoglobin 10.2 g/dl (12.0-16.0); Immature Granulocytes # (auto) 0.04 K/uL (0.00-0.02); Immature Granulocytes % (auto) 0.6 %; Lymphocytes # (auto) 0.69 K/uL (1.2-3.4); Lymphocytes % (auto) 11.1 %; Mean Corpuscular Hemoglobin 33.2 pg (25.0-34.0); Mean Corpuscular Hgb Conc 32.8 g/dL (32.0-36.0); Mean Corpuscular Volume 101.3 fL (80.0-100.0); Mean Platelet Volume 10.9 fL (9.4-12.3); Monocytes # (auto) 1.27 K/uL (0.24-0.82); Monocytes % (auto) 20.4 %; Ovalocytes 1+; Platelet Count 92 K/uL (130-400); Platelet Estimate Decreased (Normal); RDW Coefficient of Variation 16.3 % (11.5-14.5); RDW Standard Deviation 60.6 fL (36.4-46.3); Red Blood Count 3.07 M/uL (3.93-5.22); White Blood Count 6.22 K/ul (4.8-10.8)
[2022-07-10 03:51] LABS: Albumin Globulin Ratio 0.9 (0.9-2); Albumin Level 3.1 gm/dl (3.4-5.0); Bilirubin,Total 0.5 mg/dl (0.2-1.0); Calcium 8.3 mg/dl (8.5-10.1); Creatinine Clr Calc Pharmacy 44.4 ml/min; Est GFR (African American) 57.3 ml/min; Est GFR (Non-African American) 49.4 ml/min; Globulin 3.5 gm/dl (2.5-4.0); Magnesium 1.7 mg/dl (1.7-2.4); Potassium 3.5 mmol/L (3.5-5.1); Total Protein 6.6 gm/dl (6.0-8.3)
[2022-07-10 06:02] LABS: Appearance Urine Cloudy (Clear); Bacteria Urine Automated Negative (Negative); Bilirubin Urine Negative (Negative); Blood Urine Negative (Negative); Color Urine Yellow; Epithelial Cell Urine Auto >30 /lpf (0-5); Glucose Urine UA Negative (Negative); Ketones Urine Negative (Negative); Leukocyte Esterase Urine 1+ (Negative); Nitrite Urine Negative (Negative); Protein Urine 1+ (Negative); RBC Urine Automated 0-4 /hpf (0-4); Specific Gravity Urine 1.019 (1.000-1.030); Urobilinogen Urine Negative (Negative)
--- NOTE | 2022-07-10 06:12 | XRay Report ---
LEFT SHOULDER 3 VIEWS CLINICAL HISTORY: Left shoulder pain. FINDINGS: 3 views of the left shoulder are compared to study dated 01/30/2015. The skeletal structures are osteopenic. There is no radiographic evidence of acute fracture or dislocation. There is chronic posttraumatic deformity of the left proximal humerus. Productive degenerative change is noted at the acromioclavicular joint. Arthritic change is seen at the glenohumeral articulation. The overlying so ft tissues are within normal limits. The visualized left lung parenchyma appears clear. A pacemaker i s seen in the left chest wall. IMPRESSION: No acute bony abnormality is identified. Electronically signed by: Mikey Ba M.D. 07/10/2022 6:11 AM
--- NOTE | 2022-07-10 06:15 | History & Physical Report ---
Date of Service July 10, 2022 Assessment & Plan (1) Compression fx, lumbar spine: Plan: s/p fall. Compression fracture noted on imaging, age indeterminant. -Pain control with Tylenol, Oxy-IR PRN -Fall precautions -PT/OT evaluation (2) Contusion of left shoulder: Plan: Possible fracture, awaiting read -Pain control with Tylenol and Oxycodone PRN -Left arm sling ordered (3) Left hip pain: Plan: Patient s/p fall onto left side. She has been able to bear weight but has ongoing pain in her left hip. 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 Elevation of HS-troponin chronic. Patient denies chest pain. -Continue Atorvastatin -Hold ASA 81mg daily for now - await X-ray ?fracture with need for surgery. If no fracture should resume ASA (6) (HFpEF) heart failure with preserved ejection fraction: Plan: History of s/p TAVR in March 2022. Patient appears to be compensated. Trace pitting edema bilaterally, lungs CTA, no hypoxia -Continue PO Lasix daily (7) Depression: Plan: Chronic. Stable -Continue Venlafaxine (8) Hyperlipidemia: Plan: Chronic. Stable -Continue Atorvastatin (9) Sleep apnea: Plan: Chronic. Patient uses CPAP +2L O2 qHS -Continue CPAP qHS (10) Myeloma: Plan: Patient follows with Oncology. Presently on chemotherapy. She is scheduled to have a PET scan on 07/12/22 -Continue Revlimid at home schedule (11) 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, type 2: Plan: Chronic. Well controlled. 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 Patient lives alone in a single story home. She typically ambulates with a walker. Two days ago she fell in her home and landed on her left side, striking a futon. She has been able to bear weight and ambulate, however, it has been quite difficult. She does have pain in her left shoulder, left wrist and left hip. Patient sleeps in a chair. Tonight she tried to get up to use the bathroom and she was unable to rise from the chair. As a result she was incontinent of urine. She presents today with family. No additional complaints - denies fever, chills, cough, SOB, chest pain, abdominal pain, nausea, vomiting, diarrhea Allergies Allergy/AdvReac Type Severity Reaction Status Date / Time adhesive tape AdvReac Mild Skin rash Verified 06/23/22 09:59 Home Medications Medication Instructions Recorded Confirmed Type cholecalciferol (vitamin D3) 50 2,000 unit PO QAM 07/31/19 06/23/22 History mcg (2,000 unit) tablet amoxicillin 500 mg capsule 2,000 mg PO ONCE PRN DENTAL 08/01/19 06/23/22 History APPOINTMENTS #4 caps oxycodone 5 mg tablet 5 mg PO Q6H PRN pain #28 tabs 08/01/19 06/23/22 History acyclovir 400 mg tablet 400 mg PO BID 11/20/19 06/23/22 History lenalidomide 10 mg capsule 10 mg PO DAILY 11/18/20 06/23/22 History (Revlimid) multivitamin 1 tab PO QAM 03/06/21 06/23/22 History venlafaxine 75 mg capsule,extended 75 mg PO QAM #30 caps 10/06/21 06/23/22 Rx release 24 hr loratadine 10 mg capsule 10 mg PO DAILY PRN Allergy 11/02/21 06/23/22 Rx Symptoms #30 caps acetaminophen 650 mg 650 mg PO DAILY PRN pain 12/31/21 06/23/22 History tablet,extended release ascorbic acid (vitamin C) 500 mg 1,000 mg PO QAM 12/31/21 06/23/22 History tablet calcium carbonate 600 mg calcium 600 mg PO DAILY 12/31/21 06/23/22 History (1,500 mg) tablet (Calcium) cyanocobalamin (vitamin B-12) 500 1,000 mcg PO QAM 12/31/21 06/23/22 History mcg tablet triamcinolone acetonide 0.1 % 1 applic topical BID PRN dermatitis 12/31/21 06/23/22 History topical cream warfarin 4 mg tablet See Rx Instructions .Route 02/12/22 06/23/22 Rx .COMPLEX #180 tabs ketotifen fumarate 0.025 % (0.035 1 drp ophthalmic (eye) BID 03/01/22 06/23/22 History %) eye drops ([place]) psyllium husk (with sugar) 3.4 1 ea PO QAM #1 btl 03/06/22 06/23/22 Rx gram oral powder packet (Metamucil (with sugar)) nystatin 100,000 unit/gram topical 1 applic topical DAILY PRN Skin 03/12/22 06/23/22 Rx powder Irritation #60 grams potassium chloride 20 mEq 20 meq PO DAILY #30 tabs 05/11/22 06/23/22 Rx tablet,extended release(part/cryst) Wheeled Walker #1 ea 05/19/22 06/23/22 Rx atorvastatin 10 mg tablet 10 mg PO QAM 06/09/22 06/23/22 History metformin 500 mg tablet,extended 1,000 mg PO UD 06/09/22 06/23/22 History release 24 hr warfarin 1 mg tablet 1 mg PO UD 06/09/22 06/23/22 History furosemide 40 mg tablet 40 mg PO QAM 06/23/22 History 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; s/p surgery, radiation, chemo (receiving weekly oral/IV chemo Fridays + dexamethasone 40mg pretreatment prior to chemo) Pneumonia due to 2019 novel coronavirus Positional vertigo Post herpetic neuralgia hx shingles Post-menopausal bleeding Sepsis Sleep apnea CPAP + 2 LPM O2 qhs Urinary leakage Surgical History H/O surgical biopsy Right distal humerus 11/21/18 History of appendectomy History of bilateral carpal tunnel release History of cataract surgery Bilateral History of cholecystectomy History of endometrial biopsy History of knee replacement procedure of left knee History of knee replacement procedure of right knee History of surgery right distal humerus replacement History of tonsillectomy S/P dilation and curettage S/P tooth extraction S/P tubal ligation Family History Mother , 89yo Myocardial infarction Congestive heart failure Father , Pt unsure of details of father's health history;Knows he had facial cancer Malignant neoplasm of oral cavity Sister , May 2019 of copd Diabetes Breast cancer Son Hypertension Grandmother Diabetes Denies family history of Prostate cancer Lung cancer Colorectal cancer Social History Smoking Status: Never smoker Second Hand Exposure: No; Hx Alcohol Use: No Hx Substance Use: No Preferred Language: Slovenian Communication Ability: Effective Visual Impairment: No Limitations Hearing Ability: Normal 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 Beliefs That Will Affect Care: None marital status: / Current Living Situation: Alone Current Living Situation Comment: family checks in 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 Feels Safe at Home: Yes Childhood Exposure to Second-Hand Smoke: No caffeine: Yes (1 cup/day) during the past year weight has: remained stable Dental Care, Regularly: No Physical Activity Frequency: Does not Exercise Seatbelt Use: always Sunscreen Use: Yes Assistive Devices: Cane, CPAP, Oxygen - at Night and Walker Review of Systems Review of Systems: All systems reviewed & are unremarkable except as noted in HPI & below Physical Exam Physical Exam: General: patient resting comfortably, NAD, non-toxic in appearance, AA&O x 4 Skin: warm, dry, intact, no rashes or lesions HEENT: NC/AT, PERRL, EOMI, anicteric sclera, conjunctiva without injection, external ear normal to inspection and nontender, nares patent, moist mucus membranes, dentition intact, no oropharyngeal lesions, neck supple, trachea midline, no LAD, no thyromegaly, no JVD Heart: +S1/S2, regular, 3/6 AARON at right 2nd ICS, no rubs/gallops Lungs: equal air entry bilaterally anteriorly, no rales/rhonchi/wheezes Abd: +BS, soft, NT/ND, no masses/organomegaly/ascites Ext: warm, 2+ pulses in UE/LE bilaterally, no clubbing/cyanosis, trace pitting edema bilateral LE, pain with palpation left hip Neuro: nonfocal, patient AA&O x 4, speech intact, no facial droop, moving all extremities on command with equal strength 5/5 Results & Data Results & Data ([facility]) Vital Signs (Past 12 Hours) Vital Signs Temp Pulse Resp BP Pulse Ox O2 Del Method O2 Flow Rate 07/10/22 05:30 85 24 129/60 95 07/10/22 05:15 91 H 23 116/63 92 07/10/22 04:30 22 96 07/10/22 04:00 90 24 93/46 L 97 07/10/22 03:00 91 H 22 112/52 L 95 07/10/22 02:42 91 H 26 H 94 07/10/22 02:46 93 Nasal Cannula 2 07/10/22 02:40 37.5 C 92 H 22 105/60 93 Nasal Cannula 2 Laboratory Results Laboratory Results WBC 6.22 K/ul (4.8-10.8) 07/10/22 02:53 RBC 3.07 M/uL (3.93-5.22) L 07/10/22 02:53 Hgb 10.2 g/dl (12.0-16.0) L 07/10/22 02:53 Hct 31.1 % (34.1-44.9) L 07/10/22 02:53 MCV 101.3 fL (80.0-100.0) H 07/10/22 02:53 MCH 33.2 pg (25.0-34.0) 07/10/22 02:53 MCHC 32.8 g/dL (32.0-36.0) 07/10/22 02:53 RDW Std Deviation 60.6 fL (36.4-46.3) H 07/10/22 02:53 RDW Coeff of Giuseppe 16.3 % (11.5-14.5) H 07/10/22 02:53 Plt Count 92 K/uL (130-400) L 07/10/22 02:53 MPV 10.9 fL (9.4-12.3) 07/10/22 02:53 Immature Gran % (Auto) 0.6 % 07/10/22 02:53 Neut % (Auto) 66.0 % 07/10/22 02:53 Lymph % (Auto) 11.1 % 07/10/22 02:53 Glynn % (Auto) 20.4 % 07/10/22 02:53 Eos % (Auto) 1.4 % 07/10/22 02:53 Baso % (Auto) 0.5 % 07/10/22 02:53 Neut # (Auto) 4.10 K/uL (1.4-6.5) 07/10/22 02:53 Lymph # (Auto) 0.69 K/uL (1.2-3.4) L 07/10/22 02:53 Glynn # (Auto) 1.27 K/uL (0.24-0.82) H 07/10/22 02:53 Eos # (Auto) 0.09 K/uL (0-0.50) 07/10/22 02:53 Baso # (Auto) 0.03 K/uL (0-0.2) 07/10/22 02:53 Immature Gran # (Auto) 0.04 K/uL (0.00-0.02) H 07/10/22 02:53 Platelet Estimate Decreased (Normal) L 07/10/22 02:53 Ovalocytes 1+ 07/10/22 02:53 PT 18.2 Seconds (9.0-12.0) H 07/10/22 02:53 INR 1.8 (0.9-1.1) H 07/10/22 02:53 APTT 38.6 Seconds (21.0-31.0) H 07/10/22 02:53 PTT Ratio 1.4 07/10/22 02:53 Sodium 136 mmol/L (136-145) 07/10/22 02:53 Potassium 3.5 mmol/L (3.5-5.1) 07/10/22 02:53 Chloride 101 mmol/L (98-107) 07/10/22 02:53 Carbon Dioxide 26 mmol/L (21-32) 07/10/22 02:53 Anion Gap 9 (3-11) 07/10/22 02:53 BUN 21 mg/dl (6-23) 07/10/22 02:53 Creatinine 1.05 mg/dl (0.6-1.2) 07/10/22 02:53 Est Cr Clr Drug Dosing 44.4 ml/min 07/10/22 02:53 Est GFR ( Amer) 57.3 ml/min 07/10/22 02:53 Est GFR (Non-Af Amer) 49.4 ml/min 07/10/22 02:53 BUN/Creatinine Ratio 20.0 (10-20) 07/10/22 02:53 Glucose 152 mg/dl (70-99(Fasting)) H 07/10/22 02:53 Calcium 8.3 mg/dl (8.5-10.1) L 07/10/22 02:53 Magnesium 1.7 mg/dl (1.7-2.4) 07/10/22 02:53 Total Bilirubin 0.5 mg/dl (0.2-1.0) 07/10/22 02:53 AST 28 U/L (13-39) 07/10/22 02:53 ALT 20 U/L (7-52) 07/10/22 02:53 Alkaline Phosphatase 57 U/L (34-104) 07/10/22 02:53 Troponin I High Sens 18.7 pg/ml (0-14) H D 07/10/22 02:53 Total Protein 6.6 gm/dl (6.0-8.3) 07/10/22 02:53 Albumin 3.1 gm/dl (3.4-5.0) L 07/10/22 02:53 Globulin 3.5 gm/dl (2.5-4.0) 07/10/22 02:53 Albumin/Globulin Ratio 0.9 (0.9-2) 07/10/22 02:53 Code Status & VTE Plan VTE Prophylaxis Plan VTE Prophylaxis will be ordered: Yes PG Care Time/CCT Total # of Minutes Spent Total Time Spent with Patient: Total time spent is greater than 50% in coordination of care (as documented) at patient's floor/unit and/or counseling patient: Coding Level of Care Code 34659 Initial Inpt Care Lvl 3 Diagnoses Compression fx, lumbar spine S32.000A Contusion of left shoulder S40.012A Left hip pain M25.552 History of pulmonary embolism Z86.711 Coronary artery disease I25.10 (HFpEF) heart failure with preserved ejection fraction I50.33 Heart failure chronicity: acute on chronic Depression F32.9 Depression Type: major depressive disorder Major depression recurrence: unspecified whether recurrent Active/Remission status: remission status unspecified Hyperlipidemia E78.5 Hyperlipidemia type: unspecified Sleep apnea G47.30 Myeloma C90.00 Multiple myeloma remission status: unspecified 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, type 2 E11.9 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 longterm insulin use: without longterm use 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 complication status: without complication (1) (HFpEF) heart failure with preserved ejection fraction Heart failure chronicity: acute on chronic Qualified Code(s): I50.33 - Acute on chronic diastolic (congestive) heart failure (2) Depression Depression Type: major depressive disorder Major depression recurrence: unspecified whether recurrent Active/Remission status: remission status unspecified Qualified Code(s): F32.9 - Major depressive disorder, single episode, unspecified (3) Hyperlipidemia Hyperlipidemia type: unspecified Qualified Code(s): E78.5 - Hyperlipidemia, unspecified (4) 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, type 2 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
--- NOTE | 2022-07-10 06:17 | CT Scan Report ---
CT SCAN OF THE BRAIN WITHOUT IV CONTRAST CLINICAL HISTORY: Syncope. COMPARISON STUDY: CT of the brain dated 06/09/2022. TECHNIQUE: Unenhanced axial CT scan of the brain is performed from the vertex to the skull base. A do se lowering technique was utilized adhering to the principles of ALARA. FINDINGS: Brain parenchyma: There is age-related involutional change noting mild subcortical and periventricula r microangiopathic disease. There is no hemorrhage, mass effect, or evidence of acute territorial isc hemia by CT criteria. Fields-white matter differentiation is preserved. No extra-axial fluid collection is seen. Ventricles, sulci, cisterns: Prominent secondary to involutional change. Intracranial vasculature: There is atherosclerotic calcification of the cavernous carotid and vertebr al arteries. Calvarium: The skeletal structures are osteopenic. There is no depressed calvarial fracture. Numerous osteolytic lesions are again noted and consistent with the patient's known history of multiple myelo ma. Sinuses and mastoids: The visualized paranasal sinuses are clear. The mastoid air cells are well pneu matized. Orbits: The bony orbits are grossly intact. There are bilateral ocular lens implants. IMPRESSION: 1. There is no hemorrhage, mass effect, or evidence of acute territorial ischemia by CT criteria. 2. Numerous osteolytic calvarial lesions are again noted and consistent with the known history of mul tiple myeloma. ACT 112: Negative or not required by law. Electronically signed by: Mikey Ba M.D. 07/10/2022 6:15 AM
--- NOTE | 2022-07-10 06:23 | CT Scan Report ---
CT SCAN OF THE LUMBAR SPINE WITHOUT IV CONTRAST CLINICAL HISTORY: Syncope. Back pain. COMPARISON STUDY: Abdominal CT dated 03/01/2022. TECHNIQUE: CT scan of the lumbar spine was performed from the lower thoracic spine to sacrum. Images are reviewed in the axial, sagittal, and coronal planes. IV contrast was not administered for this e xamination. A dose lowering technique was utilized adhering to the principles of ALARA. CT DOSE: 1205.68 mGy.cm FINDINGS: The skeletal structures are heterogeneously osteopenic. Subtle osteolytic lesions are sugge sted and compatible with the patient's known history of multiple myeloma. A chronic inferior endplate compression deformity of L3 and the superior end plate compression deformity of L5 are unchanged fro m previous. Vertebral body height is otherwise maintained through the lumbar spine. There is minimal anterolisthesis at L4-L5. Alignment is otherwise preserved. Hyperlordosis is noted. Small anterior an d lateral marginal osteophytes are seen throughout. The transverse and spinous processes appear intac t. There is no spondylolysis. Facet arthropathy is noted in the lower lumbar region. There is moderat e disc space narrowing at T12-L1. Only mild disc space narrowing is seen throughout the lumbar spine. Posterior disc osteophyte complexes are present at all lumbar levels. The visualized sacrum and bony pelvis appear intact. There is fatty atrophy of the paraspinous musculature. The abdominal aorta is normal in caliber noting moderate atherosclerotic calcification. No retroperitoneal lymphadenopathy i s seen. IMPRESSION: 1. No acute bony abnormality is seen involving the lumbar spine. 2. Osteopenia, chronic compression deformities, and spondylotic change as above. ACT 112: Negative or not required by law. Electronically signed by: Mikey Ba M.D. 07/10/2022 6:21 AM
[2022-07-10] MEDS ORDERED: DEXTROSE 50% 50 ML SYRINGE IV PRN (09:09)
[2022-07-10] MEDS ORDERED: ONDANSETRON INJ 2 MG/ML 2 ML VIAL IV PRN (09:09)
[2022-07-10] MEDS ORDERED: GLUCAGON FOR INJ 1 MG VIAL SQ PRN (09:09)
[2022-07-10] MEDS ORDERED: GLUCOSE 10 TAB/TUBE PO PRN (09:09)
[2022-07-10] MEDS ORDERED: GLUCOSE 40% GEL 15 GM TUBE PO PRN (09:09)
[2022-07-10] MEDS ORDERED: DOCUSATE SODIUM 100 MG CAP PO PRN (09:09)
[2022-07-10] MEDS ORDERED: oxyCODONE HCL IR 5 MG TAB (IMMEDIATE RELEASE) PO PRN (09:09)
[2022-07-10] MEDS ORDERED: CARBOHYDRATES FOR HYPOGLYCEMIA PO PRN (09:09)
--- NOTE | 2022-07-10 09:35 | XRay Report ---
SINGLE VIEW PELVIS; 2 VIEWS LEFT HIP CLINICAL HISTORY: Fall with left hip injury. FINDINGS: 2 AP views of the pelvis with AP and frog-leg views of the left hip are obtained. Correlati on is made with pelvic CT dated 03/01/2022. The skeletal structures are osteopenic. There is no radiog raphic evidence of acute fracture involving the hips or bony pelvis. Moderate arthritic change and gabriel int space narrowing is seen in the hips. There is degenerative sclerosis of the sacroiliac joints and pubic symphysis. Advanced lumbosacral spondylosis is partially imaged. Mesh material projects over t he lower abdomen and pelvis. There are numerous pelvic phleboliths. The overlying soft tissues are wi thin normal limits. A calcified soft tissue granulomas seen in the left upper thigh. IMPRESSION: No acute bony abnormality is identified. Electronically signed by: Mikey Ba M.D. 07/10/2022 9:33 AM
--- NOTE | 2022-07-10 09:36 | XRay Report ---
LEFT WRIST 4 VIEWS CLINICAL HISTORY: Fall with left wrist injury. FINDINGS: 4 views of the left wrist are compared to study dated 01/20/2015. The skeletal structures are osteopenic. No fracture is seen. There is negative ulnar variance. Degenerative there is seen at the radiocarpal articulation. There is widening of the scaphoid and lunate suggesting chronic ligamentou s injury. This is similar to previous. Moderate to advanced osteoarthritic change is noted at the fir st carpometacarpal articulation where there is bony sclerosis, overgrowth, and mild subluxation. Mild er degenerative changes seen throughout the remainder of the wrist. Mild soft tissue swelling overlie s the wrist. There is atherosclerotic calcification of the renal arteries. IMPRESSION: 1. Soft tissue swelling with no acute fracture identified. 2. Osteopenia and degenerative changes above. 3. Widening between the scaphoid and lunate indicates chronic ligamentous injury. This is similar to the 2015 examination. Electronically signed by: Mikey Ba M.D. 07/10/2022 9:35 AM
[2022-07-10] MEDS: ATORVASTATIN 10 MG TAB PO SCH (10:17)
[2022-07-10] MEDS: ACYCLOVIR 400 MG TAB PO SCH ×2 (10:18→21:17)
[2022-07-10] MEDS: FUROSEMIDE 40 MG TAB PO SCH (10:18)
[2022-07-10] MEDS: VENLAFAXINE HCL XR 75 MG CAPXR PO SCH (10:18)
--- NOTE | 2022-07-10 13:30 | History & Physical Bridge Note ---
Date of Service July 10, 2022 History & Physical Bridge Note I have examined the patient, reviewed the History & Physical and in the interval since the performance of the History & Physical I have noted the following changes of clinical significance: no changes noted Seen today around lunch. In no acute distress. No fractures seen on x-rays this morning, so put in a diet. - Awaiting PT/OT. - Noted lower platelets this morning compared to priors. No signs of bleeding on exam today. Will monitor. - UA quite dirty and no symptoms of UTI. Will not treat. - On nocturnal O2 with her CPAP. Presently on 2L NC, but at SpO2 of 99%, so will wean this.
[2022-07-10] MEDS: INSULIN ASPART PER UNIT SC SCH ×4 (13:45→21:17)
--- NOTE | 2022-07-10 15:55 | Electrocardiogram Report ---
Test Reason : Blood Pressure : / mmHG Vent. Rate : 091 BPM Atrial Rate : 091 BPM P-R Int : 210 ms QRS Dur : 172 ms QT Int : 440 ms P-R-T Axes : 043 -84 077 degrees QTc Int : 541 ms Atrial-sensed ventricular-paced rhythm with prolonged AV conduction Abnormal ECG When compared with ECG of 09-JUN-2022 16:41, Vent. rate has decreased BY 4 BPM Confirmed by Fernando Burnett ([id number]) on 07/10/2022 3:55:34 PM Referred By: REFERRED SELF Confirmed By:Fernando Burnett
[2022-07-10] MEDS ORDERED: WARFARIN SOD 4 MG TAB PO SCH (16:00)
[2022-07-10] MEDS: WARFARIN SOD 4 MG TAB PO SCH (16:38)
[2022-07-10] MEDS: LENALIDOMIDE 10 MG PO SCH (16:39)
[2022-07-10] MEDS: ACETAMINOPHEN 325 MG TAB PO PRN (19:50)
[2022-07-11 08:18] LABS: Hematocrit (blood only) 31.3 % (34.1-44.9); Hemoglobin 10.2 g/dl (12.0-16.0); Mean Corpuscular Hemoglobin 33.1 pg (25.0-34.0); Mean Corpuscular Hgb Conc 32.6 g/dL (32.0-36.0); Mean Corpuscular Volume 101.6 fL (80.0-100.0); Mean Platelet Volume 11.1 fL (9.4-12.3); Platelet Count 86 K/uL (130-400); RDW Coefficient of Variation 15.9 % (11.5-14.5); RDW Standard Deviation 59.7 fL (36.4-46.3); Red Blood Count 3.08 M/uL (3.93-5.22); White Blood Count 3.81 K/ul (4.8-10.8)
[2022-07-11] MEDS: LENALIDOMIDE 10 MG PO SCH (08:21)
[2022-07-11] MEDS: FUROSEMIDE 40 MG TAB PO SCH (08:22)
[2022-07-11] MEDS: ATORVASTATIN 10 MG TAB PO SCH (08:22)
[2022-07-11] MEDS: ACYCLOVIR 400 MG TAB PO SCH (08:22)
[2022-07-11] MEDS: VENLAFAXINE HCL XR 75 MG CAPXR PO SCH (08:22)
[2022-07-11] MEDS: ACETAMINOPHEN 325 MG TAB PO PRN ×3 (08:27→18:36)
[2022-07-11 08:29] LABS: Basophils # (auto) 0.02 K/uL (0-0.2); Basophils % (auto) 0.5 %; Eosinophils # (auto) 0.27 K/uL (0-0.50); Eosinophils % (auto) 7.1 %; Immature Granulocytes # (auto) 0.02 K/uL (0.00-0.02); Immature Granulocytes % (auto) 0.5 %; Lymphocytes # (auto) 0.81 K/uL (1.2-3.4); Lymphocytes % (auto) 21.3 %; Monocytes # (auto) 0.56 K/uL (0.24-0.82); Monocytes % (auto) 14.7 %; Neutrophils # (auto) 2.13 K/uL (1.4-6.5); Neutrophils % (auto) 55.9 %; Ovalocytes 1+
[2022-07-11 08:54] LABS: BUN Creatinine Ratio 20.4 (10-20); Calcium 8.2 mg/dl (8.5-10.1); Creatinine Clr Calc Pharmacy 49.7 ml/min; Est GFR (African American) 66.3 ml/min; Est GFR (Non-African American) 57.2 ml/min; Potassium 3.6 mmol/L (3.5-5.1)
[2022-07-11 08:55] LABS: INR 1.5 (0.9-1.1); Prothrombin Time 15.2 Seconds (9.0-12.0)
[2022-07-11] MEDS: INSULIN ASPART PER UNIT SC SCH ×3 (09:07→17:13)
[2022-07-11 15:48] VITALS: BP 101/58; PULSE 81; TEMP 98.1; O2SAT 97
[2022-07-11] MEDS ORDERED: WARFARIN SOD 1 MG TAB PO SCH (16:00)
[2022-07-11] MEDS: WARFARIN SOD 4 MG TAB PO SCH (17:17)
--- NOTE | 2022-07-14 08:34 | Discharge Summary ---
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 Patient lives alone in a single story home. She typically ambulates with a walker. Two days ago she fell in her home and landed on her left side, striking a futon. She has been able to bear weight and ambulate, however, it has been quite difficult. She does have pain in her left shoulder, left wrist and left hip. Patient sleeps in a chair. Tonight she tried to get up to use the bathroom and she was unable to rise from the chair. As a result she was incontinent of urine. She presents today with family. No additional complaints - denies fever, chills, cough, SOB, chest pain, abdominal pain, nausea, vomiting, diarrhea Principal Diagnosis Compression fracture of lumbar spine. Discharge Exam General: patient resting comfortably, NAD, non-toxic in appearance, AA&O x 4 Skin: warm, dry, intact, no rashes or lesions HEENT: NC/AT, PERRL, EOMI, anicteric sclera, conjunctiva without injection, external ear normal to inspection and nontender, nares patent, moist mucus m embranes, dentition intact, no oropharyngeal lesions, neck supple, trachea midline, no LAD, no thyromegaly, no JVD Heart: +S1/S2, regular, 3/6 AARON at right 2nd ICS, no rubs/gallops Lungs: equal air entry bilaterally anteriorly, no rales/rhonchi/wheezes Abd: +BS, soft, NT/ND, no masses/organomegaly/ascites Ext: warm, 2+ pulses in UE/LE bilaterally, no clubbing/cyanosis, trace pitting edema bilateral LE, pain with palpation left hip Neuro: nonfocal, patient AA&O x 4, speech intact, no facial droop, moving all extremities on command with equal strength 5/5 Discharge Data Allergies Allergy/AdvReac Type Severity Reaction Status Date / Time adhesive tape AdvReac Mild Skin rash Verified 06/23/22 09:59 Ordered Studies 07/10/22 02:48 CT head/brain wo con Stat CT lumbar spine wo con Stat Hospital Course (1) Compression fx, lumbar spine: s/p fall. Compression fracture noted on imaging, age indeterminant. -Pain control with Tylenol, Oxy-IR PRN -Fall precautions -PT/OT evaluation On day of discharge, patient reports pain has been controlled. Patient will be going home. Pain medicine as below. (2) Contusion of left shoulder: Possible fracture, awaiting read -Pain control with Tylenol and Oxycodone PRN -Left arm sling ordered (3) Left hip pain: Patient s/p fall onto left side. She has been able to bear weight but has ongoing pain in her left hip. -X-ray left hip to assess for fracture -Pain control with Tylenol and Oxy IR -PT/OT was ordered, can go home. (4) History of pulmonary embolism: Patient with history of recurrent VTE, hypercoag state on Coumadin anticoagulation with INR of 1.8 -Continue Coumadin -Monitored INR (5) Coronary artery disease: Nonobstructive CAD. Elevation of HS-troponin chronic. Patient denies chest pain. -Continue Atorvastatin -Hold ASA 81mg daily for now - await X-ray ?fracture with need for surgery. If no fracture should resume ASA. (6) (HFpEF) heart failure with preserved ejection fraction: History of s/p TAVR in March 2022. Patient appears to be compensated. Trace pitting edema bilaterally, lungs CTA, no hypoxia -Continue PO Lasix daily (7) Depression: Chronic. Stable -Continue Venlafaxine (8) Hyperlipidemia: Chronic. Stable -Continue Atorvastatin (9) Sleep apnea: Chronic. Patient uses CPAP +2L O2 qHS -Continue CPAP qHS (10) Myeloma: Patient follows with Oncology. Presently on chemotherapy. She is scheduled to have a PET scan on 07/12/22 -Continue Revlimid at home schedule (11) 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, type 2: Chronic. Well controlled. Last HgbA1C on 05/07/22 = 5.9 Total Time Total Time Spent Total Time Spent (In Minutes): 35 Discharge Plan Discharge Items Patient Disposition: Home - Self-Care Reason For Visit: FALL Discharge Diagnosis: Fall Activity: Resume your previous activity Non-emergency contact: Primary Care Provider Call non-emergency contact if: you have any medication questions Follow-up/Referrals: Kulwinder Byers MD [Primary Care Provider] - 07/27/22 1:30 pm (APPT WITH OTILIA SEGUNDO) Diet: Carb Consistent or DM2 Addtl Attending Provider Instructions: Sorry about your fall. But glad that your pain has been controlled mainly with tylenol. We could start calcitonin nasal spray which may help with any pain that is from an osteoporotic fracture. The compression fracture likely is a combination of the trauma and osteoporosis. If back pain is severe, Only spray in one nostril. Alternate nostril each day. Recommend 4 weeks worth. Only use if pain is severe. Will recommend followup with PCP in 1-2 weeks. will recommend followup with ortho to discuss fractures. Pain medicine as below. Good luck tomorrow with your PET scan. Pending Studies at Discharge: No Stand-Alone Forms: My [facility] [employer], Smoking Cessation Medications and DC Order Prescriptions: New calcitonin (salmon) 200 unit/actuation spray,non-aerosol 1 spray intranasal (ALT) DAILY Qty: 3.7 0RF Rx Instructions: for 4 weeks. Continued venlafaxine 75 mg capsule,extended release 24hr 75 mg PO QAM Qty: 30 5RF loratadine 10 mg capsule 10 mg PO DAILY PRN (Reason: Allergy Symptoms) Qty: 30 5RF warfarin 4 mg tablet See Rx Instructions .ROUTE .COMPLEX Qty: 180 1RF Protocol: Dose Management Condition: Tuesday Dose/Route: 12 mg Instruction: 3 x 4 mg tablets Condition: Tuesday Dose/Route: 8 mg Instruction: 2 x 4 mg tablets Condition: Tuesday Dose/Route: 8 mg Instruction: 2 x 4 mg tablets Condition: Tuesday Dose/Route: 8 mg Instruction: 2 x 4 mg tablets Condition: Dose/Route: 8 mg Instruction: 2 x 4 mg tablets Condition: Tuesday Dose/Route: 8 mg Instruction: 2 x 4 mg tablets Condition: Tuesday Dose/Route: 8 mg Instruction: 2 x 4 mg tablets Protocol Text: Adjustment Start Date: Tuesday06/04/22 INR Value: 1.2 INR Date: 06/04/22 Recheck Date: 06/11/22 Dose Instruction: 8 MG SEE PROTOCOL= 8 MG TAKEN BY MOUTH ON TUE, , , TUE & SAT., THEN 10 MG ON SUN & WED. Rx Instructions: 8 MG SEE PROTOCOL= 8 MG TAKEN BY MOUTH ON TUE, , TUE, , FRI & SAT., THEN 9 MG ON SUN (DME) Wheeled Walker [facility] See Rx Instructions .Route Qty: 1 0RF Rx Instructions: WALKER WITH WHEELS AND SEAT LENGTH OF NEEDS: 99 MONTHS calcium carbonate [Calcium 600] 600 mg calcium (1,500 mg) tablet 600 mg PO DAILY acetaminophen 650 mg tablet extended release 650 mg PO DAILY PRN (Reason: pain) triamcinolone acetonide 0.1 % cream 1 applic topical BID PRN (Reason: dermatitis) nystatin 100,000 unit/gram powder 1 applic topical DAILY PRN (Reason: Skin Irritation) Qty: 60 1RF cholecalciferol (vitamin D3) 2,000 unit tablet 1,000 unit PO QAM amoxicillin 500 mg capsule 2,000 mg PO ONCE PRN (Reason: DENTAL APPOINTMENTS) Qty: 4 oxycodone 5 mg tablet 5 mg PO Q8H PRN (Reason: pain) Qty: 28 ascorbic acid (vitamin C) 500 mg tablet 1,000 mg PO QAM cyanocobalamin (vitamin B-12) 500 mcg tablet 1,000 mcg PO QAM acyclovir 400 mg tablet 400 mg PO BID furosemide 40 mg tablet 40 mg PO QAM Rx Instructions: 20MG DAILY, 3 DAYS 40MG Revlimid 10 mg capsule 10 mg PO DAILY Rx Instructions: 3 weeks on 1 week off multivitamin Tablet 1 tab PO QAM aspirin 81 mg tablet,chewable Phospha 250 Neutral 1 tab PO BID potassium chloride 20 mEq tablet,ER particles/crystals 10 meq PO BID ketotifen fumarate [Alaway] 0.025 % (0.035 %) Drops 1 drp OPHTHALMIC (EYE) BID Metamucil (with sugar) 3.4 gram Powder In Packet 1 ea PO QAM Qty: 1 0RF atorvastatin 10 mg tablet 10 mg PO QAM metformin 500 mg tablet extended release 24 hr 1,000 mg PO UD Rx Instructions: on hold until 11 of june normally takes in evening warfarin 1 mg tablet 1 mg PO UD Protocol: Dose Management Condition: Tuesday Dose/Route: 12 mg Instruction: 3 x 4 mg tablets Condition: Tuesday Dose/Route: 8 mg Instruction: 2 x 4 mg tablets Condition: Tuesday Dose/Route: 8 mg Instruction: 2 x 4 mg tablets Condition: Tuesday Dose/Route: 8 mg Instruction: 2 x 4 mg tablets Condition: Dose/Route: 8 mg Instruction: 2 x 4 mg tablets Condition: Tuesday Dose/Route: 8 mg Instruction: 2 x 4 mg tablets Condition: Tuesday Dose/Route: 8 mg Instruction: 2 x 4 mg tablets Protocol Text: Adjustment Start Date: Tuesday06/04/22 INR Value: 1.2 INR Date: 06/04/22 Recheck Date: 06/11/22 Rx Instructions: DIRECTED PER INR currently use with 8 mg to= 9mg on sundays Discontinued Lovenox 30 mg INJ Q12 Discharge Orders: Discharge Order (Routine); Ordered 07/11/22 Ordered By: Abel Ortega Admission Data Admit Date/Time: 07/10/22 05:49 Attending Provider: Abel Ortega Admit Provider: Amy Grewal Primary Care Provider: Kulwinder Byers Other Interventions: Discharge Summary Assessment (RN) Last Done: 07/11/22 18:00 Coding Level of Care Code 97665 OBS Care - Discharge Diagnoses Compression fx, lumbar spine S32.000A Contusion of left shoulder S40.012A Left hip pain M25.552 History of pulmonary embolism Z86.711 Coronary artery disease I25.10 (HFpEF) heart failure with preserved ejection fraction I50.33 Heart failure chronicity: acute on chronic Depression F32.9 Depression Type: major depressive disorder Major depression recurrence: unspecified whether recurrent Active/Remission status: remission status unspecified Hyperlipidemia E78.5 Hyperlipidemia type: unspecified Sleep apnea G47.30 Myeloma C90.00 Multiple myeloma remission status: unspecified 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, type 2 E11.9 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 [employer] insulin use: without fci use 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 complication status: without complication
== END 2022-07-11 18:44 | disposition home or self-care (01) ==
LOC: ED 02:27 → EDINP 05:49 → INTOOBSV 05:49 → SUATTDRO 05:49 → 3E 09:10

== ENCOUNTER 2022-08-20 13:26 | Inpatient (IN) ==
[2022-08-20] MEDS ORDERED: SODIUM CHLORIDE 0.9% 250 ML IV PRN ×2 (14:51→18:40)
--- NOTE | 2022-08-20 15:29 | Emergency Department Note ---
Impression & Plan GIB (gastrointestinal bleeding), Anemia, FPC (current) use of anticoagulants ED Provider Note CHIEF COMPLAINT: Low hemoglobin, low white blood cell count, on chemotherapy HISTORY OF PRESENT ILLNESS: This is an 82-year-old female patient presents to the emergency department with complaints of a low hemoglobin. She states she was sent over by her oncologist for blood transfusion. The patient states she is on chemotherapy for a "blood cancer" and does take warfarin due to history of PE. She states she has recently had an aortic valve replacement. She has been short of breath with some chest discomfort over the last several days. Her daughter states she has been sleeping more recently. She did have an episode of diarrhea this morning and states it was dark but she does not believe it was bloody. She has had a GI bleed in the past and does not believe this is another episode. She denies any epigastric pain or nausea. She denies any fevers. She states she was taken off of her chemotherapy pill. REVIEW OF SYSTEMS: A review of systems was performed with positives and pertinent negatives listed in the history of present illness. 10 systems were reviewed and are otherwise negative. ALLERGIES: see below MEDICATIONS: see below PMH: see below SOCIAL HISTORY: see below DDx: Diverticulosis, AVM, coagulopathy, colitis, inflammatory bowel disease, malignancy, Shannon-Leiva tear, esophagitis, peptic ulcer disease, variceal bleed, gastritis, epistaxis, fissure, hemorrhoids, as well as other pathologies. PHYSICAL EXAM: Vital signs reviewed. General: 82-year-old female, chronically ill-appearing, in no significant distress. HEENT: No scleral icterus, PERRLA, neck supple. Atraumatic. Cardiovascular: Regular rate and rhythm, no extra sounds. Pulmonary: Clear to auscultation bilaterally, normal work of breathing. Abdomen: Soft, obese, nontender, nondistended, positive bowel sounds. Musculoskeletal: Atraumatic, no peripheral edema. Rectal: Trace stool is guaiac trace positive, no gross blood or melena. Normal mucosa. Neurologic: Patient awake alert and oriented x 3 Skin: Warm, dry, no rash EMERGENCY DEPARTMENT COURSE/MDM: Patient was evaluated and appeared to be in no significant distress. IV access was obtained and laboratory work was drawn. Patient was placed on a elevator service mechanic and noted to be in a paced rhythm. Patient's hemoglobin is low at 7.6 and stool is guaiac trace positive, no gross blood or melena. INR is 1.3. IV Protonix bolus with drip was initiated. Patient was slightly fast for PRBCs and a blood transfusion was initiated after patient was consented. Case was discussed with the hospitalist service and the patient was admitted for further management. She and her family are aware of the plan and agreed. MONITORING: An order for cardiac monitoring was placed and the patient is noted to be in a paced rhythm at 77 beats per minute. RADIOLOGY: see below EKG: atrially sensed and ventricularly paced at 77 prolonged AV conduction. No PVC, no PAC. QTc 538. when compared to 2021 vent rate has decreased. DISPOSITION: Admission I have personally spent 30 minutes of critical care time in the direct management of this patient. This was a life/limb threatening event. This 30 minutes is in excess of all separately billable procedures. 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; s/p surgery, radiation, chemo (receiving weekly oral/IV chemo Fridays + dexamethasone 40mg pretreatment prior to chemo) Pneumonia due to 2019 novel coronavirus Positional vertigo Post herpetic neuralgia hx shingles Post-menopausal bleeding Sepsis Sleep apnea CPAP + 2 LPM O2 qhs Urinary leakage Surgical History Aortic valve replaced H/O surgical biopsy Right distal humerus 11/21/18 History of appendectomy History of bilateral carpal tunnel release History of cataract surgery Bilateral History of cholecystectomy History of endometrial biopsy History of knee replacement procedure of left knee History of knee replacement procedure of right knee History of surgery right distal humerus replacement History of tonsillectomy S/P dilation and curettage S/P tooth extraction S/P tubal ligation Family History Mother , 89yo Myocardial infarction Congestive heart failure Father , Pt unsure of details of father's health history;Knows he had facial cancer Malignant neoplasm of oral cavity Sister , May 2019 of copd Diabetes Breast cancer Son Hypertension Grandmother Diabetes Denies family history of Prostate cancer Lung cancer Colorectal cancer Social History Smoking Status: Never smoker Second Hand Exposure: Yes; Hx Alcohol Use: No Hx Substance Use: No Preferred Language: Belgian Communication Ability: Effective Visual Impairment: No Limitations Hearing Ability: Normal 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 Machine Assembler Required: No Beliefs That Will Affect Care: None marital status: / Current Living Situation: Family Current Living Situation Comment: family checks in current 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 Feels Safe at Home: Yes Childhood Exposure to Second-Hand Smoke: No caffeine: Yes (1 cup/day) during the past year weight has: remained stable Dental Care, Regularly: No Physical Activity Frequency: Does not Exercise Seatbelt Use: always Sunscreen Use: Yes Assistive Devices: Walker and Wheelchair Allergies Allergies Allergy/AdvReac Type Severity Reaction Status Date / Time adhesive tape AdvReac Mild Skin rash Verified 08/10/22 16:12 Home Meds Home Medications Medication Instructions Recorded Confirmed cholecalciferol (vitamin D3) 50 1,000 unit PO QAM 07/31/19 08/27/22 mcg (2,000 unit) tablet amoxicillin 500 mg capsule 2,000 mg PO ONCE PRN DENTAL 08/01/19 08/27/22 APPOINTMENTS #4 caps acyclovir 400 mg tablet 400 mg PO BID 11/20/19 08/27/22 multivitamin 1 tab PO QAM 03/06/21 08/27/22 acetaminophen 650 mg 650 mg PO DAILY PRN pain 12/31/21 08/27/22 tablet,extended release ascorbic acid (vitamin C) 500 mg 1,000 mg PO QAM 12/31/21 08/27/22 tablet calcium carbonate 600 mg calcium 600 mg PO DAILY 12/31/21 08/27/22 (1,500 mg) tablet (Calcium) cyanocobalamin (vitamin B-12) 500 1,000 mcg PO QAM 12/31/21 08/27/22 mcg tablet triamcinolone acetonide 0.1 % 1 applic topical BID PRN dermatitis 12/31/21 topical cream ketotifen fumarate 0.025 % (0.035 1 drp ophthalmic (eye) BID 03/01/22 08/27/22 %) eye drops ([place]away) atorvastatin 10 mg tablet 10 mg PO QAM 06/09/22 08/27/22 metformin 500 mg tablet,extended 1,000 mg PO UD 06/09/22 08/27/22 release 24 hr warfarin 1 mg tablet 1 mg PO UD 06/09/22 08/27/22 Phospha 250 Neutral 1 tab PO BID 07/10/22 08/27/22 potassium chloride 20 mEq 10 meq PO BID 07/10/22 08/27/22 tablet,extended release(part/cryst) furosemide 40 mg tablet 20 mg PO QAM 07/20/22 08/27/22 dexamethasone 4 mg tablet 20 mg PO .weekly 08/27/22 08/27/22 Previous Rx's Medication Instructions Recorded psyllium husk (with sugar) 3.4 1 ea PO QAM #1 btl 03/06/22 gram oral powder packet (Metamucil (with sugar)) nystatin 100,000 unit/gram topical 1 applic topical DAILY PRN Skin 03/12/22 powder Irritation #60 grams Wheeled Walker #1 ea 05/19/22 calcitonin (salmon) 200 1 spray intranasal (ALT) DAILY 07/11/22 unit/actuation nasal spray #3.7 mL oxycodone 5 mg tablet 5 mg PO Q6H PRN pain #18 tabs 07/20/22 warfarin 4 mg tablet See Rx Instructions .Route 08/03/22 .COMPLEX #180 tabs loratadine 10 mg tablet See Rx Instructions .Route 08/09/22 .COMPLEX #90 tabs venlafaxine 75 mg capsule,extended 75 mg PO QAM #30 caps 08/23/22 release 24 hr pantoprazole 40 mg tablet,delayed 40 mg PO BID #60 tabs 08/25/22 release Results & Data (ED) Vital Signs Vital Signs - 24 hr 08/20/22 13:50 Sepsis Recent Fever Within 48 Hours No Sepsis New/Unexplained Change in Mental Status N/A Sepsis Action Taken by Nursing No Action Required Home Medications Current Medication List: was personally reviewed by me Laboratory Data Attestation: I reviewed the patient's lab results. Result diagrams: 08/25/22 05:51 10/12/22 05:51 Lab Results 08/20/22 08/20/22 08/20/22 Range/Units 15:35 15:35 15:35 WBC 0.46 L* (4.8-10.8) K/ul RBC 2.25 L (3.93-5.22) M/uL Hgb 7.6 L (12.0-16.0) g/dl Hct 23.3 L (34.1-44.9) % MCV 103.6 H (80.0-100.0) fL MCH 33.8 (25.0-34.0) pg MCHC 32.6 (32.0-36.0) g/dL RDW Std Deviation 55.5 H (36.4-46.3) fL RDW Coeff of Giuseppe 14.9 H (11.5-14.5) % Plt Count 115 L (130-400) K/uL MPV 10.5 (9.4-12.3) fL Immature Gran % (Auto) Cancelled Neut % (Auto) Cancelled Lymph % (Auto) Cancelled Shannon % (Auto) Cancelled Eos % (Auto) Cancelled Baso % (Auto) Cancelled Neut # (Auto) Cancelled Lymph # (Auto) Cancelled Shannon # (Auto) Cancelled Eos # (Auto) Cancelled Baso # (Auto) Cancelled Immature Gran # (Auto) Cancelled Absolute Nucleated RBC DIRECTOR OF QUANTITATIVE RESEARCH Nucleated RBC % (auto) DIRECTOR OF QUANTITATIVE RESEARCH Neutrophils % (Manual) Cancelled Band Neutrophils % Cancelled Lymphocytes % (Manual) Cancelled Prolymphocyte % Cancelled Reactive Lymphs % (Man) Cancelled Monocytes % (Manual) Cancelled Eosinophils % (Manual) Cancelled Basophils % (Manual) Cancelled Metamyelocytes % (Man) Cancelled Myelocytes % (Man) Cancelled Promyelocytes % (Man) Cancelled Blast Cells % (Manual) Cancelled Plasma Cell % (Manual) Cancelled Other Cells % Cancelled Nucleated RBC % Cancelled Neutrophils # (Manual) Cancelled Band Neutrophils # Cancelled Total Absolute Neuts Cancelled Lymphocytes # (Manual) Cancelled Prolymphocyte # Cancelled Reactive Lymphs # Cancelled Total Abs Lymphocytes Cancelled Monocytes # (Manual) Cancelled Eosinophils # (Manual) Cancelled Basophils # (Manual) Cancelled Metamyelocytes # (Man) Cancelled Myelocytes # (Manual) Cancelled Promyelocytes # (Man) Cancelled Blast Cells # (Man) Cancelled Plasma Cell # (Manual) Cancelled Other Cells # Cancelled Nucleated RBCs # (Man) Cancelled Hypersegmented Neuts Cancelled Hyposegmented Neuts Cancelled Hypogranular Neuts Cancelled Large Granular Lymphs Cancelled # Lrg Granular Lymphs Cancelled Hairy Cells Cancelled Smudge Cells Cancelled Toxic Granulation Cancelled Toxic Vacuolation Cancelled Dohle Bodies Cancelled Jen Rods Cancelled Platelet Estimate DIRECTOR OF QUANTITATIVE RESEARCH Hypogranular Platelets Cancelled Clumped Platelets Cancelled Giant Platelets Cancelled Platelet Satelliting Cancelled RBC Morphology Cancelled Polychromasia Cancelled Hypochromasia Cancelled Poikilocytosis Cancelled Basophilic Stippling Cancelled Anisocytosis Cancelled Microcytosis Cancelled Macrocytosis Cancelled Spherocytes Cancelled Pappenheimer Bodies Cancelled Sickle Cells Cancelled Target Cells Cancelled Tear Drop Cells Cancelled Ovalocytes Cancelled Stomatocytes Cancelled [place] Bodies Cancelled Echinocytes Cancelled Acanthocytes (Spur) Cancelled Rouleaux Cancelled RBC Agglutinates Cancelled Schistocytes Cancelled Sezary Cell Cancelled PT (9.0-12.0) Seconds INR (0.9-1.1) APTT (21.0-31.0) Seconds PTT Ratio Sodium 139 (136-145) mmol/L Potassium 4.5 (3.5-5.1) mmol/L Chloride 105 (98-107) mmol/L Carbon Dioxide 29 (21-32) mmol/L Anion Gap 5 (3-11) BUN 27 H (6-23) mg/dl Creatinine 0.75 (0.6-1.2) mg/dl Est Cr Clr Drug Dosing Not Reportable Est GFR ( Amer) 86.0 ml/min Est GFR (Non-Af Amer) 74.2 ml/min BUN/Creatinine Ratio 36.0 H (10-20) Glucose 105 H (70-99(Fasting)) mg/dl Calcium 9.1 (8.5-10.1) mg/dl Magnesium 1.9 (1.7-2.4) mg/dl Iron (35-150) mcg/dl TIBC (250-450) mcg/dl Unsaturated IBC (155-355) mcg/dl Transferrin % Sat (15-50) % Total Bilirubin 0.4 (0.2-1.0) mg/dl AST 14 (13-39) U/L ALT 17 (7-52) U/L Alkaline Phosphatase 90 (34-104) U/L Troponin I High Sens 9.6 D (0-14) pg/ml Total Protein 6.5 (6.0-8.3) gm/dl Albumin 3.0 L (3.4-5.0) gm/dl Globulin 3.5 (2.5-4.0) gm/dl Albumin/Globulin Ratio 0.9 (0.9-2) TSH (0.300-4.500) uIu/ml SARS-CoV-2, RNA, NAAT (NEGATIVE) Blood Parasites ID Cancelled Blood Type A Negative Antibody Screen POSITIVE A Antibody Identification Panagglutinin due to drug Antibody ID Referred Antibody ID Comment Crossmatch See Detail 08/20/22 08/20/22 08/20/22 Range/Units 15:35 15:35 15:35 WBC (4.8-10.8) K/ul RBC (3.93-5.22) M/uL Hgb (12.0-16.0) g/dl Hct (34.1-44.9) % MCV (80.0-100.0) fL MCH (25.0-34.0) pg MCHC (32.0-36.0) g/dL RDW Std Deviation (36.4-46.3) fL RDW Coeff of Giuseppe (11.5-14.5) % Plt Count (130-400) K/uL MPV (9.4-12.3) fL Immature Gran % (Auto) Neut % (Auto) Lymph % (Auto) Shannon % (Auto) Eos % (Auto) Baso % (Auto) Neut # (Auto) Lymph # (Auto) Shannon # (Auto) Eos # (Auto) Baso # (Auto) Immature Gran # (Auto) Absolute Nucleated RBC Nucleated RBC % (auto) Neutrophils % (Manual) Band Neutrophils % Lymphocytes % (Manual) Prolymphocyte % Reactive Lymphs % (Man) Monocytes % (Manual) Eosinophils % (Manual) Basophils % (Manual) Metamyelocytes % (Man) Myelocytes % (Man) Promyelocytes % (Man) Blast Cells % (Manual) Plasma Cell % (Manual) Other Cells % Nucleated RBC % Neutrophils # (Manual) Band Neutrophils # Total Absolute Neuts Lymphocytes # (Manual) Prolymphocyte # Reactive Lymphs # Total Abs Lymphocytes Monocytes # (Manual) Eosinophils # (Manual) Basophils # (Manual) Metamyelocytes # (Man) Myelocytes # (Manual) Promyelocytes # (Man) Blast Cells # (Man) Plasma Cell # (Manual) Other Cells # Nucleated RBCs # (Man) Hypersegmented Neuts Hyposegmented Neuts Hypogranular Neuts Large Granular Lymphs # Lrg Granular Lymphs Hairy Cells Smudge Cells Toxic Granulation Toxic Vacuolation Dohle Bodies Jen Rods Platelet Estimate Hypogranular Platelets Clumped Platelets Giant Platelets Platelet Satelliting RBC Morphology Polychromasia Hypochromasia Poikilocytosis Basophilic Stippling Anisocytosis Microcytosis Macrocytosis Spherocytes Pappenheimer Bodies Sickle Cells Target Cells Tear Drop Cells Ovalocytes Stomatocytes [place] Bodies Echinocytes Acanthocytes (Spur) Rouleaux RBC Agglutinates Schistocytes Sezary Cell PT 13.8 H (9.0-12.0) Seconds INR 1.3 H (0.9-1.1) APTT 30.2 (21.0-31.0) Seconds PTT Ratio 1.1 Sodium (136-145) mmol/L Potassium (3.5-5.1) mmol/L Chloride (98-107) mmol/L Carbon Dioxide (21-32) mmol/L Anion Gap (3-11) BUN (6-23) mg/dl Creatinine (0.6-1.2) mg/dl Est Cr Clr Drug Dosing Est GFR ( Amer) ml/min Est GFR (Non-Af Amer) ml/min BUN/Creatinine Ratio (10-20) Glucose (70-99(Fasting)) mg/dl Calcium (8.5-10.1) mg/dl Magnesium (1.7-2.4) mg/dl Iron (35-150) mcg/dl TIBC (250-450) mcg/dl Unsaturated IBC (155-355) mcg/dl Transferrin % Sat (15-50) % Total Bilirubin (0.2-1.0) mg/dl AST (13-39) U/L ALT (7-52) U/L Alkaline Phosphatase (34-104) U/L Troponin I High Sens (0-14) pg/ml Total Protein (6.0-8.3) gm/dl Albumin (3.4-5.0) gm/dl Globulin (2.5-4.0) gm/dl Albumin/Globulin Ratio (0.9-2) TSH 1.353 (0.300-4.500) uIu/ml SARS-CoV-2, RNA, NAAT (NEGATIVE) Blood Parasites ID Blood Type Antibody Screen Antibody Identification Antibody ID Referred Antibody ID Comment Crossmatch 08/20/22 08/20/22 Range/Units 15:35 16:07 WBC (4.8-10.8) K/ul RBC (3.93-5.22) M/uL Hgb (12.0-16.0) g/dl Hct (34.1-44.9) % MCV (80.0-100.0) fL MCH (25.0-34.0) pg MCHC (32.0-36.0) g/dL RDW Std Deviation (36.4-46.3) fL RDW Coeff of Giuseppe (11.5-14.5) % Plt Count (130-400) K/uL MPV (9.4-12.3) fL Immature Gran % (Auto) Neut % (Auto) Lymph % (Auto) Shannon % (Auto) Eos % (Auto) Baso % (Auto) Neut # (Auto) Lymph # (Auto) Shannon # (Auto) Eos # (Auto) Baso # (Auto) Immature Gran # (Auto) Absolute Nucleated RBC Nucleated RBC % (auto) Neutrophils % (Manual) Band Neutrophils % Lymphocytes % (Manual) Prolymphocyte % Reactive Lymphs % (Man) Monocytes % (Manual) Eosinophils % (Manual) Basophils % (Manual) Metamyelocytes % (Man) Myelocytes % (Man) Promyelocytes % (Man) Blast Cells % (Manual) Plasma Cell % (Manual) Other Cells % Nucleated RBC % Neutrophils # (Manual) Band Neutrophils # Total Absolute Neuts Lymphocytes # (Manual) Prolymphocyte # Reactive Lymphs # Total Abs Lymphocytes Monocytes # (Manual) Eosinophils # (Manual) Basophils # (Manual) Metamyelocytes # (Man) Myelocytes # (Manual) Promyelocytes # (Man) Blast Cells # (Man) Plasma Cell # (Manual) Other Cells # Nucleated RBCs # (Man) Hypersegmented Neuts Hyposegmented Neuts Hypogranular Neuts Large Granular Lymphs # Lrg Granular Lymphs Hairy Cells Smudge Cells Toxic Granulation Toxic Vacuolation Dohle Bodies Jen Rods Platelet Estimate Hypogranular Platelets Clumped Platelets Giant Platelets Platelet Satelliting RBC Morphology Polychromasia Hypochromasia Poikilocytosis Basophilic Stippling Anisocytosis Microcytosis Macrocytosis Spherocytes Pappenheimer Bodies Sickle Cells Target Cells Tear Drop Cells Ovalocytes Stomatocytes [place] Bodies Echinocytes Acanthocytes (Spur) Rouleaux RBC Agglutinates Schistocytes Sezary Cell PT (9.0-12.0) Seconds INR (0.9-1.1) APTT (21.0-31.0) Seconds PTT Ratio Sodium (136-145) mmol/L Potassium (3.5-5.1) mmol/L Chloride (98-107) mmol/L Carbon Dioxide (21-32) mmol/L Anion Gap (3-11) BUN (6-23) mg/dl Creatinine (0.6-1.2) mg/dl Est Cr Clr Drug Dosing Est GFR ( Amer) ml/min Est GFR (Non-Af Amer) ml/min BUN/Creatinine Ratio (10-20) Glucose (70-99(Fasting)) mg/dl Calcium (8.5-10.1) mg/dl Magnesium (1.7-2.4) mg/dl Iron 77 (35-150) mcg/dl TIBC 286 (250-450) mcg/dl Unsaturated IBC 209 (155-355) mcg/dl Transferrin % Sat 27 (15-50) % Total Bilirubin (0.2-1.0) mg/dl AST (13-39) U/L ALT (7-52) U/L Alkaline Phosphatase (34-104) U/L Troponin I High Sens (0-14) pg/ml Total Protein (6.0-8.3) gm/dl Albumin (3.4-5.0) gm/dl Globulin (2.5-4.0) gm/dl Albumin/Globulin Ratio (0.9-2) TSH (0.300-4.500) uIu/ml SARS-CoV-2, RNA, NAAT NEGATIVE (NEGATIVE) Blood Parasites ID Blood Type Antibody Screen Antibody Identification Antibody ID Referred Antibody ID Comment Crossmatch Administered Medications Discontinued Medications Acetaminophen (Acetaminophen 325 Mg Tab) 650 mg PO Q4H PRN PRN Reason: mild pain or fever Stop: 09/21/22 07:12 Last Admin: 08/25/22 16:21 Dose: 650 mg Documented By: JUAN ALBERTO Admin: 08/25/22 08:56 Dose: 650 mg Documented By: JUAN ALBERTO Admin: 08/25/22 01:52 Dose: 650 mg Documented By: Admin: 08/24/22 21:36 Dose: 650 mg Documented By: Admin: 08/24/22 13:39 Dose: 650 mg Documented By: Admin: 08/24/22 06:38 Dose: 650 mg Documented By: Admin: 08/23/22 17:01 Dose: 650 mg Documented By: Admin: 08/23/22 06:07 Dose: 650 mg Documented By: Admin: 08/22/22 10:35 Dose: 650 mg Documented By: DEMOND Furosemide (Furosemide 20 Mg Tab) 20 mg PO QAM DEVON Stop: 09/24/22 08:59 Last Admin: 08/25/22 08:21 Dose: 20 mg Documented By: JUAN ALBERTO Pantoprazole Sodium (Protonix Bolus/Drip) 0 mls @ 1 mls/hr IV ONE STA Stop: 08/20/22 18:40 Last Admin: 08/20/22 19:58 Dose: Not Given Documented By: ARRON Pantoprazole Sodium 40 mg/ (Dextrose) 100 mls @ 20 mls/hr IV Q5H DEVON Stop: 09/19/22 18:59 Last Infusion: 08/23/22 13:18 Dose: 0 mg/hr, 0 mls/hr Documented By: Admin: 08/23/22 11:48 Dose: 8 mg/hr, 20 mls/hr Documented By: Infusion: 08/23/22 11:48 Dose: 8 mg/hr, 20 mls/hr Documented By: Admin: 08/23/22 07:05 Dose: 8 mg/hr, 20 mls/hr Documented By: Infusion: 08/23/22 05:32 Dose: 8 mg/hr, 20 mls/hr Documented By: Admin: 08/23/22 00:32 Dose: 8 mg/hr, 20 mls/hr Documented By: Infusion: 08/23/22 00:23 Dose: 8 mg/hr, 20 mls/hr Documented By: Admin: 08/22/22 19:23 Dose: 8 mg/hr, 20 mls/hr Documented By: Infusion: 08/22/22 19:13 Dose: 0 mg/hr, 0 mls/hr Documented By: Admin: 08/22/22 14:05 Dose: 8 mg/hr, 20 mls/hr Documented By: Infusion: 08/22/22 14:05 Dose: 0 mg/hr, 0 mls/hr Documented By: Admin: 08/22/22 09:06 Dose: 8 mg/hr, 20 mls/hr Documented By: Infusion: 08/22/22 09:05 Dose: 0 mg/hr, 0 mls/hr Documented By: Admin: 08/22/22 06:05 Dose: 8 mg/hr, 20 mls/hr Documented By: Infusion: 08/22/22 06:05 Dose: 8 mg/hr, 20 mls/hr Documented By: Infusion: 08/22/22 05:56 Dose: 8 mg/hr, 20 mls/hr Documented By: Admin: 08/22/22 03:53 Dose: 8 mg/hr, 20 mls/hr Documented By: Infusion: 08/22/22 03:32 Dose: 8 mg/hr, 20 mls/hr Documented By: Admin: 08/21/22 22:32 Dose: 8 mg/hr, 20 mls/hr Documented By: Infusion: 08/21/22 21:52 Dose: 8 mg/hr, 20 mls/hr Documented By: Admin: 08/21/22 16:52 Dose: 8 mg/hr, 20 mls/hr Documented By: Infusion: 08/21/22 16:52 Dose: 0 mg/hr, 0 mls/hr Documented By: Admin: 08/21/22 11:44 Dose: 8 mg/hr, 20 mls/hr Documented By: Infusion: 08/21/22 11:43 Dose: 8 mg/hr, 20 mls/hr Documented By: Admin: 08/21/22 06:30 Dose: 8 mg/hr, 20 mls/hr Documented By: [id number] Infusion: 08/21/22 06:30 Dose: 8 mg/hr, 20 mls/hr Documented By: [id number] Admin: 08/21/22 02:36 Dose: 8 mg/hr, 20 mls/hr Documented By: Infusion: 08/21/22 00:58 Dose: 8 mg/hr, 20 mls/hr Documented By: Admin: 08/20/22 19:58 Dose: 8 mg/hr, 20 mls/hr Documented By: ARRON Pantoprazole Sodium 80 mg/ (Dextrose) 120 mls @ 400 mls/hr IV NOW ONE Stop: 08/20/22 18:56 Last Infusion: 08/20/22 19:23 Dose: 0 mls/hr Documented By: Admin: 08/20/22 19:05 Dose: 400 mls/hr Documented By: AYDIN Pantoprazole Sodium 40 mg/ (Syringe) 10 mls @ 5 mls/min IV BID DEVON Stop: 09/22/22 20:59 Last Admin: 08/25/22 09:44 Dose: 5 mls/min Documented By: JUAN ALBERTO Admin: 08/24/22 21:36 Dose: 5 mls/min Documented By: Admin: 08/24/22 07:42 Dose: 5 mls/min Documented By: Admin: 08/23/22 20:12 Dose: 5 mls/min Documented By: REBA Iron Sucrose 300 mg/ Sodium (Chloride) 265 mls @ 176.667 mls/hr IV TODAY ONE Stop: 08/25/22 08:59 Last Infusion: 08/25/22 09:51 Dose: 0 mls/hr Documented By: JUAN ALBERTO Admin: 08/25/22 08:21 Dose: 176.7 mls/hr Documented By: JUAN ALBERTO Insulin Aspart (Insulin Aspart Per Unit) 0 units SC ACHS DEVON Stop: 09/20/22 20:59 Last Admin: 08/25/22 12:01 Dose: 3 units Documented By: JUAN ALBERTO Co-signed By: ISAAC Admin: 08/25/22 08:26 Dose: 2 units Documented By: JUAN ALBERTO Co-signed By: ISAAC Admin: 08/24/22 21:27 Dose: Not Given Documented By: Admin: 08/24/22 17:30 Dose: 3 units Documented By: HAKEEM Co-signed By: JOSE Admin: 08/24/22 12:00 Dose: 3 units Documented By: HAKEEM Co-signed By: ISAAC Admin: 08/24/22 09:45 Dose: 1 units Documented By: HAKEEM Co-signed By: TOBY Admin: 08/23/22 21:26 Dose: Not Given Documented By: REBA Co-signed By: WILSON Admin: 08/23/22 17:21 Dose: 2 units Documented By: DEMOND Co-signed By: KAIDEN Admin: 08/23/22 12:19 Dose: 3 units Documented By: DEMOND Co-signed By: KAIDEN Admin: 08/23/22 08:29 Dose: 1 units Documented By: DEMOND Co-signed By: KAIDEN Admin: 08/22/22 21:44 Dose: Not Given Documented By: Admin: 08/22/22 17:06 Dose: 1 units Documented By: DEMOND Co-signed By: [id number] Admin: 08/22/22 12:27 Dose: 1 units Documented By: DEMOND Co-signed By: [id number] Admin: 08/22/22 08:28 Dose: 6 units Documented By: DEMOND Co-signed By: [id number] Admin: 08/21/22 22:11 Dose: Not Given Documented By: DAMIEN Morphine Sulfate (Morphine Sulfate 2 Mg/Ml Carp) 1 mg IV NOW STA Stop: 08/20/22 20:18 Last Admin: 08/20/22 20:24 Dose: 1 mg Documented By: ARRON Morphine Sulfate (Morphine Sulfate 2 Mg/Ml Carp) 1 mg IV Q3H PRN PRN Reason: Pain Stop: 09/03/22 21:53 Last Admin: 08/22/22 03:43 Dose: 1 mg Documented By: Admin: 08/21/22 22:07 Dose: 1 mg Documented By: DAMIEN Oxycodone HCl (Oxycodone Hcl Ir 5 Mg Tab (Immediate Release)) 5 mg PO Q6H PRN PRN Reason: moderate/severe pain Stop: 09/05/22 13:54 Last Admin: 08/25/22 14:07 Dose: 5 mg Documented By: JUAN ALBERTO Admin: 08/25/22 05:56 Dose: 5 mg Documented By: Admin: 08/24/22 21:36 Dose: 5 mg Documented By: Admin: 08/24/22 15:41 Dose: 5 mg Documented By: Admin: 08/24/22 09:06 Dose: 5 mg Documented By: Admin: 08/24/22 02:18 Dose: 5 mg Documented By: Admin: 08/23/22 20:12 Dose: 5 mg Documented By: Admin: 08/23/22 11:47 Dose: 5 mg Documented By: Admin: 08/22/22 21:42 Dose: 5 mg Documented By: Admin: 08/22/22 14:59 Dose: 5 mg Documented By: DEMOND Imaging Data Radiologist's Impression: Chest X-Ray 08/20/22 14:52 XR chest 1V portable HISTORY: 82 years-old Female weakness acute weakness COMPARISON: 05/06/2022 TECHNIQUE: Portable AP view of the chest FINDINGS: Cardiac silhouette is enlarged. Left subclavian pacer. Aortic valvular endograft. No pneumothorax, overt pulmonary edema or large pleural effusion. Unchanged blunting of the costophrenic angles. Eventration of the right hemidiaphragm. Mild bibasilar atelectasis. Degenerative changes of the shoulders and spine. Healed chronic right-sided rib fractures. IMPRESSION: Cardiomegaly without acute process. ACT 112: Negative or not required by law. The above report was generated using voice recognition software. It may contain grammatical, syntax or spelling errors. Electronically signed by: Zane Portillo M.D. 08/20/2022 3:54 PM Blood Pressure Blood Pressure Findings: Normal blood pressure Blood Pressure Disposition: did not require urgent referral Discharge Plan Visit Data Chief Complaint: Abnormal Labs/Diagnostic Testing Stated Complaint: WHITE BLOOD COUNT LOW, NEEDS BLOOD TRANSFUSION ED Provider: Darlene Chavez Discharge Problem: GIB (gastrointestinal bleeding), Anemia, FPC (current) use of anticoagulants Patient Disposition: Admitted As Inpatient Discharge Instructions Interventions: ED Discharge Assessment Last Done: 08/20/22 20:15
--- NOTE | 2022-08-20 15:55 | XRay Report ---
XR chest 1V portable HISTORY: 82 years-old Female weakness acute weakness COMPARISON: 05/06/2022 TECHNIQUE: Portable AP view of the chest FINDINGS: Cardiac silhouette is enlarged. Left subclavian pacer. Aortic valvular endograft. No pneumothorax, ov ert pulmonary edema or large pleural effusion. Unchanged blunting of the costophrenic angles. Eventra tion of the right hemidiaphragm. Mild bibasilar atelectasis. Degenerative changes of the shoulders an d spine. Healed chronic right-sided rib fractures. IMPRESSION: Cardiomegaly without acute process. ACT 112: Negative or not required by law. The above report was generated using voice recognition software. It may contain grammatical, syntax o r spelling errors. Electronically signed by: Zane Portillo M.D. 08/20/2022 3:54 PM
[2022-08-20 16:37] LABS: Hematocrit (blood only) 23.3 % (34.1-44.9); Hemoglobin 7.6 g/dl (12.0-16.0); Mean Corpuscular Hemoglobin 33.8 pg (25.0-34.0); Mean Corpuscular Hgb Conc 32.6 g/dL (32.0-36.0); Mean Corpuscular Volume 103.6 fL (80.0-100.0); Mean Platelet Volume 10.5 fL (9.4-12.3); Platelet Count 115 K/uL (130-400); RDW Coefficient of Variation 14.9 % (11.5-14.5); RDW Standard Deviation 55.5 fL (36.4-46.3); Red Blood Count 2.25 M/uL (3.93-5.22); White Blood Count 0.46 K/ul (4.8-10.8)
[2022-08-20 16:42] LABS: INR 1.3 (0.9-1.1); Partial Thromboplastin Ratio 1.1; Partial Thromboplastin Time 30.2 Seconds (21.0-31.0); Prothrombin Time 13.8 Seconds (9.0-12.0)
[2022-08-20 16:43] LABS: Alanine Aminotransferase 17 U/L (7-52); Albumin Globulin Ratio 0.9 (0.9-2); Alkaline Phosphatase 90 U/L (34-104); Anion Gap 5 (3-11); Aspartate Aminotransferase 14 U/L (13-39); Bilirubin,Total 0.4 mg/dl (0.2-1.0); Blood Urea Nitrogen 27 mg/dl (6-23); Calcium 9.1 mg/dl (8.5-10.1); Carbon Dioxide 29 mmol/L (21-32); Chloride 105 mmol/L (98-107); Est GFR (Non-African American) 74.2 ml/min; Globulin 3.5 gm/dl (2.5-4.0); Glucose 105 mg/dl (70-99(Fasting)); Magnesium 1.9 mg/dl (1.7-2.4); Potassium 4.5 mmol/L (3.5-5.1); Sodium 139 mmol/L (136-145); Total Protein 6.5 gm/dl (6.0-8.3)
[2022-08-20 16:46] LABS: Troponin I High Sensitivity 9.6 pg/ml (0-14)
[2022-08-20] MEDS ORDERED: NYSTATIN POWDER 15GM BTL EXT PRN (18:31)
[2022-08-20] MEDS ORDERED: oxyCODONE HCL IR 5 MG TAB (IMMEDIATE RELEASE) PO PRN (18:31)
[2022-08-20] MEDS ORDERED: PANTOPRAZOLE BOLUS/DRIP 1 EACH IV STA (18:39)
[2022-08-20] MEDS ORDERED: PANTOprazole 80 MG in DEXTROSE 5% 100 ML IV ONE (18:39)
--- NOTE | 2022-08-20 18:43 | History & Physical Report ---
Date of Service August 20, 2022 Assessment & Plan (1) Anemia: Plan: Patient admitted with acute blood loss anemia. Given dark stools likely from Upper GI bleed. Patient does not take iron supplements that would explain dark stools, nor woould her diet explain this. Patient is on warfarin for hypercoagulable state, and had a P/E years ago will currently hold warfarin. transfuse PRBC, recheck hemoglobin in AM. consult GI. (2) Acute GI bleeding: Plan: as stated above. (3) Chest pain: Plan: Patient has history of CAD. will recheck trop, initial set in negative GIven that patient has not had symptoms today is reassuring. (4) Coronary artery disease: Plan: on statin and asa at home, holding all home meds currently. (5) History of pulmonary embolism: Plan: secondary to hypercoaglulable state, on warfarin. 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 (8) Compression fx, lumbar spine: Plan: on calcitonin spray, reports her pain has improved this has been discontinued. 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 Patient has felt fatigued, intermittent pressure like chest pains at rest, shortness of breath and intermittent perioral numbness radiating to her right cheek. Patient had blood work ordered by her oncologist and was found to be anemic. Patient sent here for transfusion. Allergies Allergy/AdvReac Type Severity Reaction Status Date / Time adhesive tape AdvReac Mild Skin rash Verified 08/10/22 16:12 Home Medications Medication Instructions Recorded Confirmed Type cholecalciferol (vitamin D3) 50 1,000 unit PO QAM 07/31/19 08/10/22 History mcg (2,000 unit) tablet amoxicillin 500 mg capsule 2,000 mg PO ONCE PRN DENTAL 08/01/19 08/10/22 History APPOINTMENTS #4 caps acyclovir 400 mg tablet 400 mg PO BID 11/20/19 08/10/22 History multivitamin 1 tab PO QAM 03/06/21 08/10/22 History venlafaxine 75 mg capsule,extended 75 mg PO QAM #30 caps 10/06/21 08/10/22 Rx release 24 hr acetaminophen 650 mg 650 mg PO DAILY PRN pain 12/31/21 08/10/22 History tablet,extended release ascorbic acid (vitamin C) 500 mg 1,000 mg PO QAM 12/31/21 08/10/22 History tablet calcium carbonate 600 mg calcium 600 mg PO DAILY 12/31/21 08/10/22 History (1,500 mg) tablet (Calcium) cyanocobalamin (vitamin B-12) 500 1,000 mcg PO QAM 12/31/21 08/10/22 History mcg tablet triamcinolone acetonide 0.1 % 1 applic topical BID PRN dermatitis 12/31/21 08/10/22 History topical cream ketotifen fumarate 0.025 % (0.035 1 drp ophthalmic (eye) BID 03/01/22 08/10/22 History %) eye drops (Alaway) psyllium husk (with sugar) 3.4 1 ea PO QAM #1 btl 03/06/22 08/10/22 Rx gram oral powder packet (Metamucil (with sugar)) nystatin 100,000 unit/gram topical 1 applic topical DAILY PRN Skin 03/12/22 08/10/22 Rx powder Irritation #60 grams Wheeled Walker #1 ea 05/19/22 08/10/22 Rx atorvastatin 10 mg tablet 10 mg PO QAM 06/09/22 08/10/22 History metformin 500 mg tablet,extended 1,000 mg PO UD 06/09/22 08/10/22 History release 24 hr warfarin 1 mg tablet 1 mg PO UD 06/09/22 08/10/22 History Phospha 250 Neutral 1 tab PO BID 07/10/22 08/10/22 History aspirin 81 mg chewable tablet 07/10/22 08/10/22 History potassium chloride 20 mEq 10 meq PO BID 07/10/22 08/10/22 History tablet,extended release(part/cryst) calcitonin (salmon) 200 1 spray intranasal (ALT) DAILY 07/11/22 08/10/22 Rx unit/actuation nasal spray #3.7 mL furosemide 40 mg tablet 20 mg PO QAM 07/20/22 08/10/22 History oxycodone 5 mg tablet 5 mg PO Q6H PRN pain #18 tabs 07/20/22 08/10/22 Rx warfarin 4 mg tablet See Rx Instructions .Route 08/03/22 08/10/22 Rx .COMPLEX #180 tabs loratadine 10 mg tablet See Rx Instructions .Route 08/09/22 08/10/22 Rx .COMPLEX #90 tabs 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; s/p surgery, radiation, chemo (receiving weekly oral/IV chemo Fridays + dexamethasone 40mg pretreatment prior to chemo) Pneumonia due to 2019 novel coronavirus Positional vertigo Post herpetic neuralgia hx shingles Post-menopausal bleeding Sepsis Sleep apnea CPAP + 2 LPM O2 qhs Urinary leakage Surgical History Aortic valve replaced H/O surgical biopsy Right distal humerus 11/21/18 History of appendectomy History of bilateral carpal tunnel release History of cataract surgery Bilateral History of cholecystectomy History of endometrial biopsy History of knee replacement procedure of left knee History of knee replacement procedure of right knee History of surgery right distal humerus replacement History of tonsillectomy S/P dilation and curettage S/P tooth extraction S/P tubal ligation Family History Mother , 89yo Myocardial infarction Congestive heart failure Father , Pt unsure of details of father's health history;Knows he had facial cancer Malignant neoplasm of oral cavity Sister , May 2019 of copd Diabetes Breast cancer Son Hypertension Grandmother Diabetes Denies family history of Prostate cancer Lung cancer Colorectal cancer Social History Smoking Status: Never smoker Second Hand Exposure: Yes; Hx Alcohol Use: No Hx Substance Use: No Preferred Language: Venezuelan Communication Ability: Effective Visual Impairment: No Limitations Hearing Ability: Normal Online Content Developer Required: No Beliefs That Will Affect Care: None marital status: / Current Living Situation: Family Current Living Situation Comment: family checks in current occupational status: 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 Other Information That Helps Us Care for You: No Feels Safe at Home: Yes Safety Concerns: Feels Safe At This Time Childhood Exposure to Second-Hand Smoke: No caffeine: Yes (1 cup/day) during the past year weight has: remained stable Dental Care, Regularly: No Physical Activity Frequency: Does not Exercise Seatbelt Use: always Sunscreen Use: Yes Assistive Devices: CPAP Review of Systems Constitutional: no fever Eyes: no blind spots Ear, Nose, Mouth, Throat: no ear pain Respiratory: no cough Cardiovascular: + chest pain Gastrointestinal: no abdominal pain Genitourinary: no dysuria Musculoskeletal: no back pain Integumentary: no acne Neurologic: no gait abnormality Psychiatric: no behavioral changes Endocrine: + fatigue Hematologic / Lymphatic: + easy bleeding Allergy / Immunological: no GI upset with certain foods Physical Exam Physical Exam: General: patient resting comfortably, NAD, non-toxic in appearance, AA&O x 4 Skin: warm, dry, intact, no rashes or lesions HEENT: NC/AT, PERRL, EOMI, anicteric sclera, conjunctiva without injection, external ear normal to inspection and nontender, nares patent, dry mucus membranes, dentition intact, no oropharyngeal lesions, neck supple, trachea midline, no LAD, no thyromegaly, no JVD Heart: +S1/S2, regular, 3/6 AARON at right 2nd ICS, no rubs/gallops Lungs: equal air entry bilaterally anteriorly, no rales/rhonchi/wheezes Abd: +BS, soft, NT/ND, no masses/organomegaly/ascites Ext: warm, 2+ pulses in UE/LE bilaterally, no clubbing/cyanosis, trace pitting edema bilateral LE, pain with palpation left hip Neuro: nonfocal, patient AA&O x 4, speech intact, no facial droop, moving all extremities on command with equal strength 5/5 PG Care Time/CCT Total # of Minutes Spent Total Time Spent with Patient: Total time spent is greater than 50% in coordination of care (as documented) at patient's floor/unit and/or counseling patient: Coding Level of Care Code 55914 Initial Inpt Care Lvl 3 Diagnoses Anemia D64.9 Anemia type: unspecified type Acute GI bleeding K92.2 Chest pain R07.9 Chest pain type: unspecified Coronary artery disease I25.10 History of pulmonary embolism Z86.711 Hypercoagulable state D68.59 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
[2022-08-20 18:47] LABS: Iron 77 mcg/dl (35-150); Total Iron Binding Cap Calc 286 mcg/dl (250-450); Transferrin (FE) Percent Satur 27 % (15-50); Unsaturated Iron Binding Cap 209 mcg/dl (155-355)
[2022-08-20] MEDS: PANTOprazole 40 MG in DEXTROSE 5% 100 ML IV SCH (19:58)
[2022-08-20] MEDS ORDERED: MoRPHine SULFATE 2 MG/ML CARP IV STA (20:17)
[2022-08-20] MEDS ORDERED: POTASSIUM CHLORIDE 10 MEQ TABCR PO SCH (21:00)
[2022-08-20] MEDS ORDERED: ACYCLOVIR 400 MG TAB PO SCH (21:00)
[2022-08-20] MEDS ORDERED: PHOSPHA PO SCH (21:00)
[2022-08-21] MEDS: PANTOprazole 40 MG in DEXTROSE 5% 100 ML IV SCH ×5 (02:36→22:32)
[2022-08-21 08:13] LABS: Hematocrit (blood only) 19.6 % (34.1-44.9); Hemoglobin 6.4 g/dl (12.0-16.0); Mean Corpuscular Hemoglobin 33.5 pg (25.0-34.0); Mean Corpuscular Hgb Conc 32.7 g/dL (32.0-36.0); Mean Corpuscular Volume 102.6 fL (80.0-100.0); Mean Platelet Volume 10.2 fL (9.4-12.3); Platelet Count 104 K/uL (130-400); RDW Coefficient of Variation 14.8 % (11.5-14.5); RDW Standard Deviation 54.2 fL (36.4-46.3); Red Blood Count 1.91 M/uL (3.93-5.22)
[2022-08-21 08:15] LABS: BUN Creatinine Ratio 23.7 (10-20); Calcium 8.1 mg/dl (8.5-10.1); Creatinine Clr Calc Pharmacy 60.9 ml/min; Est GFR (African American) 84.7 ml/min; Est GFR (Non-African American) 73.1 ml/min; Potassium 3.8 mmol/L (3.5-5.1)
[2022-08-21] MEDS ORDERED: NON-FORMULARY MEDICATION (Multivitamin Tablet) PO SCH (09:00)
[2022-08-21] MEDS ORDERED: [UNRECOGNIZED DRUG - OTHER] PO SCH (09:00)
[2022-08-21] MEDS ORDERED: ASCORBIC ACID 500 MG TAB PO SCH (09:00)
[2022-08-21] MEDS ORDERED: CYANOCOBALAMIN (B-12) 500 MCG TABLET PO SCH (09:00)
[2022-08-21] MEDS ORDERED: ATORVASTATIN 10 MG TAB PO SCH (09:00)
[2022-08-21] MEDS ORDERED: VENLAFAXINE HCL XR 75 MG CAPXR PO SCH (09:00)
[2022-08-21] MEDS ORDERED: CALCITONIN SALMON NA 200 IU/AC 3.7 ML BTL NAE SCH (09:00)
[2022-08-21] MEDS ORDERED: PSYLLIUM HUSK 3.4 GM PO SCH (09:00)
[2022-08-21] MEDS ORDERED: FUROSEMIDE 20 MG TAB PO SCH (09:00)
--- NOTE | 2022-08-21 09:08 | Hospitalist Progress Note ---
Date of Service August 21, 2022 Assessment & Plan (1) Anemia: Plan: Patient admitted with concerns for acute blood loss anemia. Hgb 7.6 -> 6.4 this morning. 2U PRBCs infused this morning with repeat Hgb of 8.7. Given dark stools, concern about upper GIB and started on PPI IV BID on admission, will continue. Patient is on warfarin for hypercoagulable state, and had a P/E years ago - holding warfarin. GI consulted: no scope at this time, recommended eval for hemolytic anemia. LDH, haptoglobin, peripheral smear pending. (2) Acute GI bleeding: Plan: Possible GI bleeding given dark stools. Hemoccult ordered, pending. Continue IV PPI BID. (3) Pancytopenia: Plan: Chronic, due to multiple myeloma / chemotherapy. However, with worsening neutropenia and anemia this admission. Plts 104, stable. Neutropenia precautions. Management of anemia described above. Will discuss patient's presentation with patient's primary heme/onc provider following results of hemolysis labs (4) Myeloma: Plan: Diagnosed with multiple myeloma in July 2019. 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 Patient follows with [facility] heme/onc Dr. Allen. (5) Chest pain: Plan: History of CAD, on aspirin and statin. Had some chest discomfort over the last several days, but none on admission or today. No evidence of ACS on EKG, serial troponins normal. Holding the above home meds at this time while monitoring for acute blood loss. (6) Coronary artery disease: Plan: see above (7) History of pulmonary embolism: Plan: Secondary to hypercoaglulable state, on chronic warfarin therapy. Holding warfarin given anemia. (8) Compression fx, lumbar spine: Plan: Morphine as needed for pain. (9) 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, type 2: Plan: BSG q6h while NPO. SSI ordered. Plan Code Status: FULL CODE FEN: NPO DVT ppx: holding chemoppx given anemia Dispo: Med/Tele Admission and Anticipated Discharge Date Admission Date: August 20, 2022 Subjective No acute events overnight. Patient reports a 1 week history of dark stools. Nursing also reported that stools were quite dark. She endorses feeling quite fatigued this morning prior to getting her blood, with improvement in fatigue following blood transfusion. Review of Systems Constitutional: no fever and no chills Respiratory: no cough and no dyspnea Cardiovascular: no chest pain and no palpitations Gastrointestinal: no abdominal pain, no nausea and no vomiting Physical Exam Constitutional: WD/WN, vitals as above + obese Respiratory: normal respiratory effort, lungs clear to auscultation Cardiovascular: RRR, no murmur, no edema Gastrointestinal (Abdomen): normal bowel sounds, soft, nontender, no hepatosplenomegaly Skin: no rashes, warm and dry Psychiatric: A+Ox3, euthymic affect Results & Data Results & Data ([facility]) Vital Signs (Past 12 Hours) Vital Signs Temp Pulse Pulse Resp BP BP Pulse Ox 08/21/22 08:27 36.6 C 69 18 102/67 08/21/22 07:29 37.0 C 76 20 109/66 94 08/21/22 07:24 85 08/21/22 03:32 36.6 C 70 20 120/69 97 08/21/22 03:49 85 25 H 95 08/20/22 22:39 89 08/20/22 22:58 37.5 C 83 20 108/67 98 08/20/22 22:40 88 21 97 O2 Del Method O2 Flow Rate 08/21/22 08:27 08/21/22 07:29 Room Air 08/21/22 07:24 08/21/22 03:32 BiPAP 08/21/22 03:49 2 08/20/22 22:39 08/20/22 22:58 BiPAP 08/20/22 22:40 2 PG Care Time/CCT Total # of Minutes Spent Total Time Spent with Patient: Total time spent is greater than 50% in coordination of care (as documented) at patient's floor/unit and/or counseling patient: Coding Level of Care Code 94308 Subseq Hosp Care Lvl 3 Diagnoses Anemia D64.9 Anemia type: unspecified type Acute GI bleeding K92.2 Pancytopenia D61.818 Myeloma C90.00 Multiple myeloma remission status: unspecified Chest pain R07.9 Chest pain type: unspecified Coronary artery disease I25.10 History of pulmonary embolism Z86.711 Compression fx, lumbar spine S32.000A 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, type 2 E11.9 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 complication status: without complication 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 senior living insulin use: without senior living use (1) 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, type 2 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 complication status: without complication 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 senior living insulin use: without technician terminal and repeater use Qualified Code(s): E11.9 - Type 2 diabetes mellitus without complications (2) Anemia Anemia type: unspecified type Qualified Code(s): D64.9 - Anemia, unspecified (3) Chest pain Chest pain type: unspecified Qualified Code(s): R07.9 - Chest pain, unspecified (4) Myeloma Multiple myeloma remission status: unspecified Qualified Code(s): C90.00 - Multiple myeloma not having achieved remission
--- NOTE | 2022-08-21 09:58 | Consultation ---
Date of Consultation August 21, 2022 History of Present Illness Attending Physician: Mariam Sandra DO History of Present Illness 82 yo female known to [facility] GI practice with comorbids sig for multiple myeloma on Pomalidomide/Daratumumab admit for weakness, anemia. Hgb 10 in June, now 7.6 --> 6. MCV > 100. Pt s/p 2 U PRBC. She is pancytopenic, with plts and neutropenia with total WBC 400. Pt reports dark stool x 1 week No abd pain. Bp normal, BUN increased to 20 on admit but fell overnight. S/p transfusion 2 units. PE: comfortable, NAD, obese HEENT: mild pallor Abd: soft, NT Extrem: no edema Labs reviewed. A/P: Anemia, drop in hgb -- Dark stool - DDX anemia includes myelosuppression; ?? GIB; hemolytic anemia, which is associated with Pomalidomide - Follow hgb and consider judicious tansfusion. Please w/u for hemolytic anemia. Can continue PPI gtt through weekend, but would defer endoscopy given absence of ongoing overt blood loss, stable VS, neutropenia. Allergies Allergy/AdvReac Type Severity Reaction Status Date / Time adhesive tape AdvReac Mild Skin rash Verified 08/10/22 16:12 Home Medications Medication Instructions Recorded Confirmed Type cholecalciferol (vitamin D3) 50 1,000 unit PO QAM 07/31/19 08/10/22 History mcg (2,000 unit) tablet amoxicillin 500 mg capsule 2,000 mg PO ONCE PRN DENTAL 08/01/19 08/10/22 History APPOINTMENTS #4 caps acyclovir 400 mg tablet 400 mg PO BID 11/20/19 08/10/22 History multivitamin 1 tab PO QAM 03/06/21 08/10/22 History venlafaxine 75 mg capsule,extended 75 mg PO QAM #30 caps 10/06/21 08/10/22 Rx release 24 hr acetaminophen 650 mg 650 mg PO DAILY PRN pain 12/31/21 08/10/22 History tablet,extended release ascorbic acid (vitamin C) 500 mg 1,000 mg PO QAM 12/31/21 08/10/22 History tablet calcium carbonate 600 mg calcium 600 mg PO DAILY 12/31/21 08/10/22 History (1,500 mg) tablet (Calcium) cyanocobalamin (vitamin B-12) 500 1,000 mcg PO QAM 12/31/21 08/10/22 History mcg tablet triamcinolone acetonide 0.1 % 1 applic topical BID PRN dermatitis 12/31/21 08/10/22 History topical cream ketotifen fumarate 0.025 % (0.035 1 drp ophthalmic (eye) BID 03/01/22 08/10/22 History %) eye drops (Alaway) psyllium husk (with sugar) 3.4 1 ea PO QAM #1 btl 03/06/22 08/10/22 Rx gram oral powder packet (Metamucil (with sugar)) nystatin 100,000 unit/gram topical 1 applic topical DAILY PRN Skin 03/12/22 08/10/22 Rx powder Irritation #60 grams Wheeled Walker #1 ea 05/19/22 08/10/22 Rx atorvastatin 10 mg tablet 10 mg PO QAM 06/09/22 08/10/22 History metformin 500 mg tablet,extended 1,000 mg PO UD 06/09/22 08/10/22 History release 24 hr warfarin 1 mg tablet 1 mg PO UD 06/09/22 08/10/22 History Phospha 250 Neutral 1 tab PO BID 07/10/22 08/10/22 History aspirin 81 mg chewable tablet 07/10/22 08/10/22 History potassium chloride 20 mEq 10 meq PO BID 07/10/22 08/10/22 History tablet,extended release(part/cryst) calcitonin (salmon) 200 1 spray intranasal (ALT) DAILY 07/11/22 08/10/22 Rx unit/actuation nasal spray #3.7 mL furosemide 40 mg tablet 20 mg PO QAM 07/20/22 08/10/22 History oxycodone 5 mg tablet 5 mg PO Q6H PRN pain #18 tabs 07/20/22 08/10/22 Rx warfarin 4 mg tablet See Rx Instructions .Route 08/03/22 08/10/22 Rx .COMPLEX #180 tabs loratadine 10 mg tablet See Rx Instructions .Route 08/09/22 08/10/22 Rx .COMPLEX #90 tabs Patient History Medical History (HFpEF) heart failure with preserved ejection fraction Anxiety Aortic stenosis Basal cell carcinoma face Cervical radiculopathy CHF exacerbation Degenerative disc disease Depression 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, type 2 NIDDM Endometrial intraepithelial neoplasia (EIN) Fracture, humerus Hemorrhoids History of seizure last seizure 1995 Hyperlipidemia Morbid obesity Myeloma Osteoarthritis 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; s/p surgery, radiation, chemo (receiving weekly oral/IV chemo Fridays + dexamethasone 40mg pretreatment prior to chemo) Pneumonia due to 2019 novel coronavirus Positional vertigo Post herpetic neuralgia hx shingles Post-menopausal bleeding Sepsis Sleep apnea CPAP + 2 LPM O2 qhs Urinary leakage Surgical History Aortic valve replaced H/O surgical biopsy Right distal humerus 11/21/18 History of appendectomy History of bilateral carpal tunnel release History of cataract surgery Bilateral History of cholecystectomy History of endometrial biopsy History of knee replacement procedure of left knee History of knee replacement procedure of right knee History of surgery right distal humerus replacement History of tonsillectomy S/P dilation and curettage S/P tooth extraction S/P tubal ligation Family History Mother , 89yo Myocardial infarction Congestive heart failure Father , Pt unsure of details of father's health history;Knows he had facial cancer Malignant neoplasm of oral cavity Sister , May 2019 of copd Diabetes Breast cancer Son Hypertension Grandmother Diabetes Denies family history of Prostate cancer Lung cancer Colorectal cancer Social History Smoking Status: Never smoker Second Hand Exposure: Yes; Hx Alcohol Use: No Hx Substance Use: No Preferred Language: Mexican Communication Ability: Effective Visual Impairment: No Limitations Hearing Ability: Normal System Integration Engineer Required: No Beliefs That Will Affect Care: None marital status: / Current Living Situation: Family Current Living Situation Comment: family checks in 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 Other Information That Helps Us Care for You: No Feels Safe at Home: Yes Safety Concerns: Feels Safe At This Time Childhood Exposure to Second-Hand Smoke: No caffeine: Yes (1 cup/day) during the past year weight has: remained stable Dental Care, Regularly: No Physical Activity Frequency: Does not Exercise Seatbelt Use: always Sunscreen Use: Yes Assistive Devices: CPAP Results & Data ([facility]) Vital Signs (Past 12 Hours) Vital Signs Temp Pulse Pulse Resp BP BP Pulse Ox 08/21/22 08:27 36.6 C 69 18 102/67 08/21/22 07:29 37.0 C 76 20 109/66 94 08/21/22 07:24 85 08/21/22 03:32 36.6 C 70 20 120/69 97 08/21/22 03:49 85 25 H 95 08/20/22 22:39 89 08/20/22 22:58 37.5 C 83 20 108/67 98 08/20/22 22:40 88 21 97 O2 Del Method O2 Flow Rate 08/21/22 08:27 08/21/22 07:29 Room Air 08/21/22 07:24 08/21/22 03:32 BiPAP 08/21/22 03:49 2 08/20/22 22:39 08/20/22 22:58 BiPAP 08/20/22 22:40 2
--- NOTE | 2022-08-21 12:48 | Electrocardiogram Report ---
Test Reason : Blood Pressure : / mmHG Vent. Rate : 077 BPM Atrial Rate : 077 BPM P-R Int : 222 ms QRS Dur : 170 ms QT Int : 476 ms P-R-T Axes : 041 269 074 degrees QTc Int : 538 ms Atrial-sensed ventricular-paced rhythm with prolonged AV conduction Abnormal ECG When compared with ECG of 10-JUL-2022 02:39, Vent. rate has decreased BY 14 BPM Confirmed by Fernando Burnett ([id number]) on 08/21/2022 12:48:27 PM Referred By: Jorge Allen Confirmed By:Fernando Burnett
[2022-08-21] MEDS ORDERED: GLUCOSE 10 TAB/TUBE PO PRN (18:08)
[2022-08-21] MEDS ORDERED: DEXTROSE 50% 50 ML SYRINGE IV PRN (18:08)
[2022-08-21] MEDS ORDERED: GLUCAGON FOR INJ 1 MG VIAL SQ PRN (18:08)
[2022-08-21] MEDS ORDERED: GLUCOSE 40% GEL 15 GM TUBE PO PRN (18:08)
[2022-08-21] MEDS ORDERED: CARBOHYDRATES FOR HYPOGLYCEMIA PO PRN (18:08)
[2022-08-21 18:13] LABS: Hematocrit (blood only) 25.8 % (34.1-44.9); Hemoglobin 8.7 g/dl (12.0-16.0)
[2022-08-21 18:14] LABS: Reticulocyte % 1.2 % (0.5-2.0); Reticulocytes # 0.03 10^6/uL (0.02-0.10)
[2022-08-21] MEDS: MoRPHine SULFATE 2 MG/ML CARP IV PRN (22:07)
[2022-08-21] MEDS: INSULIN ASPART PER UNIT SC SCH (22:11)
[2022-08-22] MEDS: MoRPHine SULFATE 2 MG/ML CARP IV PRN (03:43)
[2022-08-22] MEDS: PANTOprazole 40 MG in DEXTROSE 5% 100 ML IV SCH ×5 (03:53→19:23)
--- NOTE | 2022-08-22 07:26 | Hospitalist Progress Note ---
Date of Service August 22, 2022 Assessment & Plan (1) Anemia: Plan: Patient admitted with concerns for acute blood loss anemia. Hgb 7.6 -> 6.4. Status post 2 units packed red blood cells, with a hemoglobin stable today of 8.7. Continue IV PPI twice daily through this weekend. Patient is on warfarin for hypercoagulable state, and had a P/E years ago - holding warfarin. GI consulted: no scope at this time given improvement in dark stool without intervention, can consider if worsening of symptoms or continued decline in hemoglobin. LDH 119. Haptoglobin and peripheral smear pending. Attempted to contact patient's oncologist, however was unable to. Can attempt a gain tomorrow. (2) Acute GI bleeding: Plan: Several days of dark stools prior to admission. Stool occult blood positive. Continue IV PPI BID. Consider GI reevaluation while admitted if hemoglobin does not remain stable. (3) Pancytopenia: Plan: Chronic, due to multiple myeloma / chemotherapy. However, with worsening neutropenia and anemia this admission. Plts 108, stable. Neutropenia precautions. Management of anemia described above. Hemolysis labs pending. WBC count stable today, though still low and neutropenic. (4) Chest pain: Plan: History of CAD, on aspirin and statin. Had some chest discomfort over the last several days, but none on admission or today. No evidence of ACS on EKG, serial troponins normal. Sinus/paced rhythm on telemetry. Holding aspirin while undergoing evaluation of GI bleeding. (5) Myeloma: Plan: Diagnosed with multiple myeloma in July 2019. 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 Patient follows with [facility] heme/onc Dr. Allen. (6) Coronary artery disease: Plan: see above (7) History of pulmonary embolism: Plan: Secondary to hypercoagulable state, on chronic warfarin therapy. Holding warfarin given acute blood loss anemia. (8) Compression fx, lumbar spine: Plan: Morphine as needed for pain. (9) 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, type 2: Plan: BSG q6h while NPO. SSI ordered. Plan Code Status: FULL CODE FEN: NPO DVT ppx: holding chemoppx given anemia Dispo: Med/Tele Admission and Anticipated Discharge Date Admission Date: August 20, 2022 Subjective Patient without any acute events overnight. She did have a few loose bowel movements, which she reports are less dark than they were yesterday. She does not endorse any symptoms of weakness or fatigue today. Review of Systems Constitutional: no fever and no chills Respiratory: no cough and no dyspnea Cardiovascular: no chest pain and no palpitations Gastrointestinal: no abdominal pain, no nausea and no vomiting Physical Exam Constitutional: WD/WN, vitals as above + obese Respiratory: normal respiratory effort, lungs clear to auscultation Cardiovascular: RRR, no murmur, no edema Gastrointestinal (Abdomen): normal bowel sounds, soft, nontender, no hepatosplenomegaly Skin: no rashes, warm and dry Psychiatric: A+Ox3, euthymic affect Results & Data Results & Data ([facility]) Vital Signs (Past 12 Hours) Vital Signs Temp Pulse Pulse Resp BP Pulse Ox O2 Del Method 08/22/22 06:56 61 08/22/22 03:45 80 20 95 08/22/22 03:40 36.9 C 80 20 135/77 96 Room Air 08/22/22 00:01 67 08/21/22 23:36 36.8 C 77 22 130/73 98 CPAP 08/21/22 22:30 71 23 96 O2 Flow Rate 08/22/22 06:56 08/22/22 03:45 2 08/22/22 03:40 08/22/22 00:01 08/21/22 23:36 08/21/22 22:30 2 PG Care Time/CCT Total # of Minutes Spent Total Time Spent with Patient: Total time spent is greater than 50% in coordination of care (as documented) at patient's floor/unit and/or counseling patient: Coding Level of Care Code 10838 Subseq Hosp Care Lvl 3 Diagnoses Anemia D64.9 Anemia type: unspecified type Acute GI bleeding K92.2 Pancytopenia D61.818 Chest pain R07.9 Chest pain type: unspecified Myeloma C90.00 Multiple myeloma remission status: unspecified Coronary artery disease I25.10 History of pulmonary embolism Z86.711 Compression fx, lumbar spine S32.000A 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, type 2 E11.9 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 complication status: without complication 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 longterm insulin use: without longterm use (1) 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, type 2 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 complication status: without complication 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
[2022-08-22 07:29] LABS: Hematocrit (blood only) 25.9 % (34.1-44.9); Hemoglobin 8.7 g/dl (12.0-16.0); Mean Corpuscular Hemoglobin 31.8 pg (25.0-34.0); Mean Corpuscular Hgb Conc 33.6 g/dL (32.0-36.0); Mean Corpuscular Volume 94.5 fL (80.0-100.0); Mean Platelet Volume 10.3 fL (9.4-12.3); Platelet Count 108 K/uL (130-400); RDW Coefficient of Variation 18.1 % (11.5-14.5); RDW Standard Deviation 61.5 fL (36.4-46.3); Red Blood Count 2.74 M/uL (3.93-5.22); White Blood Count 0.49 K/ul (4.8-10.8)
[2022-08-22 07:58] LABS: BUN Creatinine Ratio 18.7 (10-20); Calcium 8.2 mg/dl (8.5-10.1); Creatinine Clr Calc Pharmacy 61.7 ml/min; Est GFR (Non-African American) 74.2 ml/min; Potassium 3.7 mmol/L (3.5-5.1)
[2022-08-22] MEDS: INSULIN ASPART PER UNIT SC SCH ×4 (08:28→21:44)
[2022-08-22] MEDS: ACETAMINOPHEN 325 MG TAB PO PRN (10:35)
[2022-08-22] MEDS: oxyCODONE HCL IR 5 MG TAB (IMMEDIATE RELEASE) PO PRN ×2 (14:59→21:42)
[2022-08-22 17:23] LABS: Anion Gap 7.4 (3-11)
[2022-08-23] MEDS: PANTOprazole 40 MG in DEXTROSE 5% 100 ML IV SCH ×3 (00:32→11:48)
[2022-08-23] MEDS: ACETAMINOPHEN 325 MG TAB PO PRN ×2 (06:07→17:01)
[2022-08-23 06:58] LABS: Hematocrit (blood only) 24.3 % (34.1-44.9); Hemoglobin 8.2 g/dl (12.0-16.0); Mean Corpuscular Hemoglobin 32.5 pg (25.0-34.0); Mean Corpuscular Hgb Conc 33.7 g/dL (32.0-36.0); Mean Corpuscular Volume 96.4 fL (80.0-100.0); Mean Platelet Volume 10.1 fL (9.4-12.3); Platelet Count 113 K/uL (130-400); RDW Coefficient of Variation 17.5 % (11.5-14.5); RDW Standard Deviation 60.2 fL (36.4-46.3); Red Blood Count 2.52 M/uL (3.93-5.22); White Blood Count 0.47 K/ul (4.8-10.8)
[2022-08-23 07:13] LABS: Calcium 8.1 mg/dl (8.5-10.1); Creatinine Clr Calc Pharmacy 49.3 ml/min; Est GFR (African American) 68.1 ml/min; Est GFR (Non-African American) 58.8 ml/min
[2022-08-23] MEDS: INSULIN ASPART PER UNIT SC SCH ×4 (08:29→21:26)
[2022-08-23] MEDS: oxyCODONE HCL IR 5 MG TAB (IMMEDIATE RELEASE) PO PRN ×2 (11:47→20:12)
--- NOTE | 2022-08-23 13:14 | Hospitalist Progress Note ---
Date of Service August 23, 2022 Assessment & Plan (1) Anemia: Plan: Patient admitted with concerns for acute blood loss anemia. Hgb 7.6 -> 6.4. Status post 2 units packed red blood cells, with a hemoglobin stable of 8.7; now 8.2. - Switch PPI to PO BID. - Patient is on warfarin for hypercoagulable state, and had a P/E years ago - holding warfarin. - GI consulted: no EGD at this time given improvement in dark stool without intervention, can consider if worsening of symptoms or continued decline in hemoglobin. - LDH 119. Haptoglobin and peripheral smear pending, though automated diff showed no schistocytes, so I think it is unlikely she has any significant shanthi ment of hemolysis. (2) Acute GI bleeding: Plan: Several days of dark stools prior to admission. Stool occult blood positive. - PPI & GI as above (3) Pancytopenia: Plan: Chronic, due to multiple myeloma / chemotherapy. However, with worsening neutropenia and anemia this admission. - Neutropenia precautions. - Management of anemia described above. (4) Chest pain: Plan: History of CAD, on aspirin and statin. Had some chest discomfort over the last several days, but none on admission or today. No evidence of ACS on EKG, serial troponins normal. Sinus/paced rhythm on telemetry. - Holding aspirin while undergoing evaluation of GI bleeding. (5) Myeloma: Plan: Diagnosed with multiple myeloma in July 2019. 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 - Patient follows with [facility] heme/onc Dr. Allen. (6) Coronary artery disease: Plan: See above (7) History of pulmonary embolism: Plan: Secondary to hypercoagulable state, on chronic warfarin therapy. - Holding warfarin given acute blood loss anemia. (8) Compression fx, lumbar spine: Plan: Noted. - Oxycodone PRN (9) 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, type 2: Plan: A1c was 5.9% in 04/2022. - Sliding scale insulin (10) DVT prophylaxis: Plan: SCDs - Holding heparin for GI bleed Admission and Anticipated Discharge Date Admission Date: August 20, 2022 Subjective Doing well today. Very pleasant. Notes some left hip and leg pain, but she says this is bad arthritis and is stable from longstanding. 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 Reports no fevers/chills, chest pain, shortness of breath, abdominal pain, nausea, or vomiting. Physical Exam Constitutional: WD/WN, vitals as above Eyes: EOM intact bilaterally; no conjunctival abnormality ENMT: external ear and nose normal, oropharynx normal Neck: trachea midline, no thyromegaly normal visual inspection Respiratory: normal respiratory effort, lungs clear to auscultation no respiratory distress Cardiovascular: RRR, no murmur, no edema Gastrointestinal (Abdomen): Inspection/Auscultation: abdomen normal to inspection; abdomen not distended Musculoskeletal: no cyanosis or clubbing, extremities motor strength 5/5 Skin: no rashes, warm and dry Neurologic: moves all extremities and awake Psychiatric: Orientation: alert, oriented to person and cooperative Results & Data Results & Data ([facility]) Vital Signs (Past 12 Hours) Vital Signs Temp Pulse Pulse Resp BP Pulse Ox O2 Del Method 08/23/22 12:37 36.7 C 90 20 105/66 93 Room Air 08/23/22 08:04 36.8 C 81 19 110/65 95 Room Air 08/23/22 07:47 72 08/23/22 07:46 79 08/23/22 04:19 36.6 C 78 20 116/69 95 CPAP 08/23/22 03:57 78 14 95 O2 Flow Rate 08/23/22 12:37 08/23/22 08:04 08/23/22 07:47 08/23/22 07:46 08/23/22 04:19 08/23/22 03:57 2 PG Care Time/CCT Total # of Minutes Spent Total Time Spent with Patient: Total time spent is greater than 50% in coordination of care (as documented) at patient's floor/unit and/or counseling patient: Coding Level of Care Code 35003 Subseq Hosp Care Lvl 3 Diagnoses Anemia D64.9 Anemia type: unspecified type Acute GI bleeding K92.2 Pancytopenia D61.818 Chest pain R07.9 Chest pain type: unspecified Myeloma C90.00 Multiple myeloma remission status: unspecified Coronary artery disease I25.10 History of pulmonary embolism Z86.711 Compression fx, lumbar spine S32.000A 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, type 2 E11.9 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 detention insulin use: without detention use 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 complication status: without complication DVT prophylaxis Z29.9 (1) Anemia Anemia type: unspecified type Qualified Code(s): D64.9 - Anemia, unspecified (2) Chest pain Chest pain type: unspecified Qualified Code(s): R07.9 - Chest pain, unspecified (3) Myeloma Multiple myeloma remission status: unspecified Qualified Code(s): C90.00 - Multiple myeloma not having achieved remission (4) 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, type 2 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
[2022-08-23] MEDS ORDERED: SODIUM CHLORIDE 0.65% NA SOLN 45 ML (OCEAN) NAE PRN (18:58)
[2022-08-23] MEDS ORDERED: COUGH DROP (SUGAR FREE) LOZ 24 LOZ/1 BOX BUCCAL PRN (18:58)
[2022-08-23] MEDS: PANTOprazole 40 MG in SYRINGE 0 ML IV SCH (20:12)
[2022-08-24] MEDS: oxyCODONE HCL IR 5 MG TAB (IMMEDIATE RELEASE) PO PRN ×4 (02:18→21:36)
[2022-08-24 03:08] LABS: Influenza A virus by PCR Negative (Neg); Influenza B virus by PCR Negative (Neg); RSV by PCR Negative (Neg)
[2022-08-24 03:25] LABS: SARS CoV2 RNA(COVID-19) InHosp POSITIVE (Negative)
[2022-08-24] MEDS: ACETAMINOPHEN 325 MG TAB PO PRN ×3 (06:38→21:36)
[2022-08-24] MEDS: PANTOprazole 40 MG in SYRINGE 0 ML IV SCH ×2 (07:42→21:36)
[2022-08-24 08:15] LABS: Hematocrit (blood only) 26.1 % (34.1-44.9); Hemoglobin 8.6 g/dl (12.0-16.0); Mean Corpuscular Hemoglobin 32.3 pg (25.0-34.0); Mean Corpuscular Volume 98.1 fL (80.0-100.0); Mean Platelet Volume 10.2 fL (9.4-12.3); Platelet Count 133 K/uL (130-400); RDW Coefficient of Variation 17.2 % (11.5-14.5); RDW Standard Deviation 59.5 fL (36.4-46.3); Red Blood Count 2.66 M/uL (3.93-5.22); White Blood Count 0.39 K/ul (4.8-10.8)
[2022-08-24 08:51] LABS: BUN Creatinine Ratio 18.6 (10-20); Calcium 8.2 mg/dl (8.5-10.1); Creatinine Clr Calc Pharmacy 46.3 ml/min; Est GFR (Non-African American) 54.4 ml/min
[2022-08-24] MEDS: INSULIN ASPART PER UNIT SC SCH ×4 (09:45→21:27)
--- NOTE | 2022-08-24 12:27 | Hospitalist Progress Note ---
Date of Service August 24, 2022 Assessment & Plan (1) Anemia: Plan: Patient admitted with concerns for acute blood loss anemia. Hgb 7.6 -> 6.4. Status post 2 units packed red blood cells, with a hemoglobin stable of 8.7; now 8.6. - Switched PPI to PO BID on 08/24. - Patient is on warfarin for hypercoagulable state, and had a P/E years ago - holding warfarin. - GI consulted: no EGD at this time given improvement in dark stool without intervention, can consider if worsening of symptoms or continued decline in hemoglobin. - LDH 119. Haptoglobin and peripheral smear both without evidence of hemolysis. -> Have reached out to GI re: when to resume anticoagulation for her. (2) Acute GI bleeding: Plan: Several days of dark stools prior to admission. Stool occult blood positive. - PPI & GI as above (3) Pancytopenia: Plan: Chronic, due to multiple myeloma / chemotherapy. However, with worsening neutropenia and anemia this admission. - Neutropenia precautions. - Management of anemia described above. - Follow up with oncology re: MM treatment & monitoring. (4) Chest pain: Plan: History of CAD, on aspirin and statin. Had some chest discomfort over the last several days, but none on admission or today. No evidence of ACS on EKG, serial troponins normal. Sinus/paced rhythm on telemetry. - Holding aspirin while undergoing evaluation of GI bleeding. 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 Bethea who felt holding ASA was ok. Could switch to Plavix if she has PUD. (5) Myeloma: Plan: Diagnosed with multiple myeloma in July 2019. 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 - Patient follows with [facility] heme/onc Dr. Allen. (6) Coronary artery disease: Plan: See above (7) History of pulmonary embolism: Plan: Secondary to hypercoagulable state, on chronic warfarin therapy. - Holding warfarin given acute blood loss anemia. Have asked GI when to resume. (8) Compression fx, lumbar spine: Plan: Noted. - Oxycodone PRN (9) 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, type 2: Plan: A1c was 5.9% in 04/2022. - Sliding scale insulin (10) DVT prophylaxis: Plan: SCDs - Holding heparin for GI bleed Admission and Anticipated Discharge Date Admission Date: August 20, 2022 Subjective Doing well today. Very pleasant. Reports the cough drops and saline are helping her Covid symptoms. Otherwise, has no complaints today. Reports no fevers/chills, chest pain, shortness of breath, abdominal pain, nausea, or vomiting. Physical Exam Constitutional: WD/WN, vitals as above Eyes: EOM intact bilaterally; no conjunctival abnormality ENMT: external ear and nose normal, oropharynx normal Neck: trachea midline, no thyromegaly normal visual inspection Respiratory: normal respiratory effort, lungs clear to auscultation no respiratory distress Cardiovascular: RRR, no murmur, no edema Gastrointestinal (Abdomen): Inspection/Auscultation: abdomen normal to inspection; abdomen not distended Musculoskeletal: no cyanosis or clubbing, extremities motor strength 5/5 Skin: no rashes, warm and dry Neurologic: moves all extremities and awake Psychiatric: Orientation: alert, oriented to person and cooperative Results & Data Results & Data ([facility]) Vital Signs (Past 12 Hours) Vital Signs Temp Pulse Pulse Resp BP Pulse Ox O2 Del Method 08/24/22 11:33 36.7 C 101 H 18 124/74 93 Room Air 08/24/22 11:02 81 08/24/22 07:30 Room Air 08/24/22 10:05 95 08/24/22 06:34 37.3 C 97 H 20 129/69 93 Room Air 08/24/22 03:15 22 97 08/24/22 02:36 36.6 C 72 18 140/65 95 Room Air 08/24/22 01:38 81 08/24/22 01:03 Room Air, CPAP O2 Flow Rate 08/24/22 11:33 08/24/22 11:02 08/24/22 07:30 08/24/22 10:05 08/24/22 06:34 08/24/22 03:15 2 08/24/22 02:36 08/24/22 01:38 08/24/22 01:03 PG Care Time/CCT Total # of Minutes Spent Total Time Spent with Patient: Total time spent is greater than 50% in coordination of care (as documented) at patient's floor/unit and/or counseling patient: Coding Level of Care Code 17851 Subseq Hosp Care Lvl 2 Diagnoses Anemia D64.9 Anemia type: unspecified type Acute GI bleeding K92.2 Pancytopenia D61.818 Chest pain R07.9 Chest pain type: unspecified Myeloma C90.00 Multiple myeloma remission status: unspecified Coronary artery disease I25.10 History of pulmonary embolism Z86.711 Compression fx, lumbar spine S32.000A 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, type 2 E11.9 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 standards engineer insulin use: without care home use 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 complication status: without complication DVT prophylaxis Z29.9 (1) Anemia Anemia type: unspecified type Qualified Code(s): D64.9 - Anemia, unspecified (2) Chest pain Chest pain type: unspecified Qualified Code(s): R07.9 - Chest pain, unspecified (3) Myeloma Multiple myeloma remission status: unspecified Qualified Code(s): C90.00 - Multiple myeloma not having achieved remission (4) 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, type 2 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 standards engineer insulin use: without standards engineer use Diabetes mellitus complication status: without complication Qualified Code(s): E11.9 - Type 2 diabetes mellitus without complications
[2022-08-25] MEDS: ACETAMINOPHEN 325 MG TAB PO PRN ×3 (01:52→16:21)
[2022-08-25] MEDS: oxyCODONE HCL IR 5 MG TAB (IMMEDIATE RELEASE) PO PRN ×2 (05:56→14:07)
[2022-08-25 06:42] LABS: Hematocrit (blood only) 24.5 % (34.1-44.9); Hemoglobin 8.2 g/dl (12.0-16.0); Mean Corpuscular Hemoglobin 32.7 pg (25.0-34.0); Mean Corpuscular Hgb Conc 33.5 g/dL (32.0-36.0); Mean Corpuscular Volume 97.6 fL (80.0-100.0); Mean Platelet Volume 9.8 fL (9.4-12.3); Platelet Count 140 K/uL (130-400); RDW Standard Deviation 57.8 fL (36.4-46.3); Red Blood Count 2.51 M/uL (3.93-5.22); White Blood Count 0.53 K/ul (4.8-10.8)
[2022-08-25 06:55] LABS: BUN Creatinine Ratio 23.2 (10-20); Calcium 8.3 mg/dl (8.5-10.1); Creatinine Clr Calc Pharmacy 45.5 ml/min; Est GFR (African American) 61.5 ml/min; Est GFR (Non-African American) 53.1 ml/min; Potassium 4.1 mmol/L (3.5-5.1)
[2022-08-25] MEDS ORDERED: IRON SUCROSE 300 MG in SODIUM CHLORIDE 0.9% 250 ML IV ONE (07:30)
[2022-08-25] MEDS: INSULIN ASPART PER UNIT SC SCH ×2 (08:26→12:01)
[2022-08-25 08:56] VITALS: TEMP 97.7
[2022-08-25] MEDS ORDERED: FUROSEMIDE 20 MG TAB PO SCH (09:00)
[2022-08-25] MEDS: PANTOprazole 40 MG in SYRINGE 0 ML IV SCH (09:44)
[2022-08-25 09:48] VITALS: PULSE 82; O2SAT 96
[2022-08-25 13:39] VITALS: BP 92/56
--- NOTE | 2022-08-25 16:32 | Discharge Summary ---
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 Patient has felt fatigued, intermittent pressure like chest pains at rest, shortness of breath and intermittent perioral numbness radiating to her right cheek. Patient had blood work ordered by her oncologist and was found to be anemic. Patient sent here for transfusion. Principal Diagnosis Likely upper GI bleed Acute blood loss anemia Discharge Exam Constitutional WD/WN, vitals as above Eyes EOM intact bilaterally; no conjunctival abnormality ENMT external ear and nose normal, oropharynx normal Neck trachea midline, no thyromegaly normal visual inspection Respiratory normal respiratory effort, lungs clear to auscultation no respiratory distress Cardiovascular RRR, no murmur, no edema Gastrointestinal (Abdomen) Inspection/Auscultation: abdomen normal to inspection; abdomen not distended Musculoskeletal no cyanosis or clubbing, extremities motor strength 5/5 Skin no rashes, warm and dry Neurologic moves all extremities and awake Psychiatric Orientation: alert, oriented to person and cooperative Discharge Data Allergies Allergy/AdvReac Type Severity Reaction Status Date / Time adhesive tape AdvReac Mild Skin rash Verified 08/10/22 16:12 Consultations 08/20/22 18:31 ED Decision to Admit Stat 08/20/22 18:39 ED Decision to Admit Stat 08/20/22 19:19 Consult Gastroenterology Routine Hospital Course (1) Anemia: Patient admitted with concerns for acute blood loss anemia. Hgb 7.6 -> 6.4. Status post 2 units packed red blood cells, with a hemoglobin stable of 8.7; now 8.6. - Switched PPI to PO BID on 08/24. - Patient is on warfarin for hypercoagulable state, and had a P/E years ago - holding warfarin. - GI consulted: no EGD at this time given improvement in dark stool without intervention, can consider if worsening of symptoms or continued decline in hemoglobin. - LDH 119. Haptoglobin and peripheral smear both without evidence of hemolysis. -> Discussed with GI and cardiology. Can STOP ASA and resume warfarin. Hgb was stable at 8.2 today. Stools had cleared to brown per patient. Given 1 dose of IV Venofer prior to discharge. (2) Acute GI bleeding: Several days of dark stools prior to admission. Stool occult blood positive. Cleared to normal stool by discharge. - PPI & GI as above (3) Pancytopenia: Chronic, due to multiple myeloma / chemotherapy. However, with worsening neutropenia and anemia this admission. - Neutropenia precautions. - Management of anemia described above. - Follow up with oncology re: MM treatment & monitoring. (4) Chest pain: History of CAD, on aspirin and statin. Had some chest discomfort over the last several days, but none on admission or today. No evidence of ACS on EKG, serial troponins normal. Sinus/paced rhythm on telemetry. - Holding aspirin while undergoing evaluation of GI bleeding. - Discussed with her self pay representative, Dr. Bethea who felt holding ASA was ok as she is on full anticoagulation for hx of DVT/PE. - Follow up with Dr. Bethea as able after discharge. (5) Myeloma: Diagnosed with multiple myeloma in July 2019. 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 - Patient follows with [facility] heme/onc Dr. Allen. (6) Coronary artery disease: See above (7) History of pulmonary embolism: Secondary to hypercoagulable state, on chronic warfarin therapy. - Held warfarin given GI bleed. GI okayed resumption of warfarin. No bridging given the recent bleed. Will use home INR machine to check INR on Tuesday, but expect it to be < 2.0. Will recheck on Tuesday and can work with normal PCP to a djust dose as needed. (8) Compression fx, lumbar spine: Noted. - Oxycodone PRN (9) Diabetes mellitus, type 2: A1c was 5.9% in 04/2022. - Sliding scale insulin (10) DVT prophylaxis: SCDs - Holding heparin for GI bleed Total Time Total Time Spent Total Time Spent (In Minutes): 35 Discharge Plan Discharge Items Patient Disposition: Home - Home Health Services Reason For Visit: ANEMIA Discharge Diagnosis: Likely GI bleeding Activity: Resume your previous activity Non-emergency contact: Primary Care Provider, [facility] and Oncologist Call non-emergency contact if: your symptoms worsen Follow-up/Referrals: Kulwinder Byers MD [Primary Care Provider] - 09/03/22 3:00 pm Aly Guy DO [Physician] - (Please follow up with the GI doctor in 4 weeks to see how you are doing. Please call their office to schedule this appointment.) Diet: Regular Addtl Attending Provider Instructions: Ms. Roy, You were admitted to the hospital with anemia that we think was due to a slow bleeding from the stomach. This was probably because of being on aspirin and warfarin and causing your blood to be too thin. With medication and a blood transfusion, you are doing much better. Please STOP the aspirin that you were taking. We spoke with Dr. Bethea, and he didn't feel it was needed since you are on the warfarin. Please take the pantoprazole twice per day for 4 weeks. Please follow up with the GI team to make sure your stomach is healing. After the 4 weeks, follow their instructions, but they will probably be able to put you on it once a day after that. Please follow up with your oncologist regarding your treatments. As we discussed, you can restart your normal warfarin dose tomorrow. Please check your INR on Tuesday. It will be low! That's ok. We want it to come up slowly to avoid any further bleeding. Check again on Tuesday and follow your PCP's advise. Pending Studies at Discharge: No Stand-Alone Forms: My [facility] [place], Smoking Cessation Medications and DC Order Prescriptions: New pantoprazole 40 mg tablet,delayed release (DR/EC) 40 mg PO BID Qty: 60 0RF Continued (DME) [facility] See Rx Instructions .Route Qty: 1 0RF Rx Instructions: WALKER WITH WHEELS AND SEAT LENGTH OF NEEDS: 99 MONTHS warfarin 4 mg tablet See Rx Instructions .ROUTE .COMPLEX Qty: 180 1RF Protocol: Dose Management Condition: Tuesday Dose/Route: 12 mg Instruction: 3 x 4 mg tablets Condition: Tuesday Dose/Route: 8 mg Instruction: 2 x 4 mg tablets Condition: Tuesday Dose/Route: 8 mg Instruction: 2 x 4 mg tablets Condition: Tuesday Dose/Route: 8 mg Instruction: 2 x 4 mg tablets Condition: Dose/Route: 8 mg Instruction: 2 x 4 mg tablets Condition: Tuesday Dose/Route: 8 mg Instruction: 2 x 4 mg tablets Condition: Tuesday Dose/Route: 8 mg Instruction: 2 x 4 mg tablets Protocol Text: Adjustment Start Date: 07/22/22 INR Value: 3.0 INR Date: 07/21/22 Recheck Date: 07/29/22 Dose Instruction: 8 MG SEE PROTOCOL= 8 MG TAKEN BY MOUTH ON TUE, , , TUE & SAT., THEN 10 MG ON SUN & TUE. Rx Instructions: 8 MG SEE PROTOCOL= 8 MG TAKEN BY MOUTH ON TUE, , TUE, , TUE & SAT., THEN 9 MG ON SUN loratadine 10 mg tablet See Rx Instructions .ROUTE .COMPLEX Qty: 90 1RF Dose Instruction: TAKE 1 TABLET BY MOUTH DAILY NEEDED FOR ALLERGY SYMPTOMS Rx Instructions: TAKE 1 TABLET BY MOUTH DAILY NEEDED FOR ALLERGY SYMPTOMS venlafaxine 75 mg capsule,extended release 24hr 75 mg PO QAM Qty: 30 5RF calcium carbonate [Calcium 600] 600 mg calcium (1,500 mg) tablet 600 mg PO DAILY acetaminophen 650 mg tablet extended release 650 mg PO DAILY PRN (Reason: pain) triamcinolone acetonide 0.1 % cream 1 applic topical BID PRN (Reason: dermatitis) nystatin 100,000 unit/gram powder 1 applic topical DAILY PRN (Reason: Skin Irritation) Qty: 60 1RF oxycodone 5 mg tablet 5 mg PO Q6H PRN (Reason: pain) Qty: 18 0RF cholecalciferol (vitamin D3) 2,000 unit tablet 1,000 unit PO QAM amoxicillin 500 mg capsule 2,000 mg PO ONCE PRN (Reason: DENTAL APPOINTMENTS) Qty: 4 ascorbic acid (vitamin C) 500 mg tablet 1,000 mg PO QAM cyanocobalamin (vitamin B-12) 500 mcg tablet 1,000 mcg PO QAM acyclovir 400 mg tablet 400 mg PO BID furosemide 40 mg tablet 20 mg PO QAM Rx Instructions: 20MG DAILY, 3 DAYS 40MG multivitamin Tablet 1 tab PO QAM Phospha 250 Neutral 1 tab PO BID potassium chloride 20 mEq tablet,ER particles/crystals 10 meq PO BID calcitonin (salmon) 200 unit/actuation spray,non-aerosol 1 spray intranasal (ALT) DAILY Qty: 3.7 0RF Rx Instructions: for 4 weeks. ketotifen fumarate [[place]] 0.025 % (0.035 %) Drops 1 drp OPHTHALMIC (EYE) BID Metamucil (with sugar) 3.4 gram Powder In Packet 1 ea PO QAM Qty: 1 0RF atorvastatin 10 mg tablet 10 mg PO QAM metformin 500 mg tablet extended release 24 hr 1,000 mg PO UD Rx Instructions: on hold until 11 of june normally takes in evening warfarin 1 mg tablet 1 mg PO UD Protocol: Dose Management Condition: Tuesday Dose/Route: 12 mg Instruction: 3 x 4 mg tablets Condition: Tuesday Dose/Route: 8 mg Instruction: 2 x 4 mg tablets Condition: Tuesday Dose/Route: 8 mg Instruction: 2 x 4 mg tablets Condition: Tuesday Dose/Route: 8 mg Instruction: 2 x 4 mg tablets Condition: Dose/Route: 8 mg Instruction: 2 x 4 mg tablets Condition: Tuesday Dose/Route: 8 mg Instruction: 2 x 4 mg tablets Condition: Tuesday Dose/Route: 8 mg Instruction: 2 x 4 mg tablets Protocol Text: Adjustment Start Date: 07/22/22 INR Value: 3.0 INR Date: 07/21/22 Recheck Date: 07/29/22 Rx Instructions: DIRECTED PER INR currently use with 8 mg to= 9mg on sundays Discontinued aspirin 81 mg tablet,chewable Discharge Orders: Discharge Order (Routine); Ordered 08/25/22 Ordered By: Abhinav Guzman/Other Patient Handouts: COVID-19 Home Care, What to Know When TakingWarfarin, Infection Preventing Spread Admission Data Admit Date/Time: 08/20/22 18:45 Attending Provider: Abhinav Jones Admit Provider: Abel Ortega Primary Care Provider: Kulwinder Byers Other Providers: Abel Ortega ; Tony Redding Other Interventions: Discharge Summary Assessment (RN) Last Done: 08/25/22 13:36 Coding Level of Care Code D/C DAY MANAGEMENT >30 MINS Diagnoses Anemia D64.9 Anemia type: unspecified type Acute GI bleeding K92.2 Pancytopenia D61.818 Chest pain R07.9 Chest pain type: unspecified Myeloma C90.00 Multiple myeloma remission status: unspecified Coronary artery disease I25.10 History of pulmonary embolism Z86.711 Compression fx, lumbar spine S32.000A Diabetes mellitus, type 2 E11.9 Diabetes mellitus termite treater helper insulin use: without termite treater helper use Diabetes mellitus complication status: without complication DVT prophylaxis Z29.9
== END 2022-08-25 16:34 | disposition home health service (06) | DRG 377 ==
LOC: ED 13:26 → 2N 18:45 → SUATTDRO 18:45 → 2N 20:15

== ENCOUNTER 2022-08-28 16:00 | Inpatient (IN) ==
--- NOTE | 2022-08-28 16:31 | Emergency Department Note ---
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 States she is now at home living with her son. Being very weak and not having much appetite. Reports feeling weak and shaky and having a bit of a cough. Having onset of significant nonbloody diarrhea but it is mucousy in nature. Denies nausea or vomiting. Denying abdominal pain. Denying chest pain. Reports her legs feel weak and she has felt a little bit dizzy particular with position changes at times. States she does not have home health currently. Has been taking her warfarin as directed. Denies other sick contacts. Did recently test positive for COVID during hospitalization here but states she had a before as well as 1 dose of vaccine in the past. Usually only uses oxygen at night with CPAP but feels like she could use it more often. REVIEW OF SYSTEMS: A total of 10 review of systems was obtained and negative except as stated above in the HPI. PAST MEDICAL HISTORY: As noted above MEDICATIONS: Reviewed home medication list SOCIAL HISTORY: Now residing at home with son, no smoking history reported. PHYSICAL EXAM: GENERAL: alert and oriented in no acute distress on stretcher Head: normocephalic and atraumatic EYES: No injection, discharge or icterus. NECK: Trachea midline. ENT: Mucous membranes pink and moist. LUNGS: Airway patent. No retractions. Breath sounds clear anteriorly HEART: Regular rate and rhythm. No chest wall tenderness ABDOMEN: Soft and non-tender, without guarding or rebound. SKIN: Acyanotic, warm, dry, without rashes EXTREMITIES: Without swelling, tenderness or deformity NEUROLOGICAL: No focal deficits. No aphasia. No facial droop or slurred speech. Normal strength and tone in the extremities. Sensation to gross touch normal. Ambulatory. EK bpm ventricular paced rhythm. No PVC noted. No acute ST segment elevation or depression with a QTC of 529. Compared to previous from August 20 of this year similar. CONTINUOUS CARDIAC MONITORING: was ordered and showed a heart rate of 70s bpm in ventricular paced rhythm Patient's laboratory studies and imaging reviewed. Differential includes Infection, dehydration, metabolic abnormality, hypo /hyperglycemia, electrolyte disturbance, anemia, hypoxia, cardiac sources, intracerebral event, toxicologic, neurologic, as well as other pathologies. IMPRESSION/MEDICAL DECISION MAKING: Patient was in generalized weakness shortness of breath and slight cough as well as weakness and shakiness. No significant focal deficits I doubt this represents a CVA. Mild myeloma on therapy and stable anemia likely on blood work. Some leukopenia but some worsened ANC. No fevers reported. Mucousy diarrhea. Benign abdomen on exam. Procalcitonin quite low. Troponin is elevated today at 71 quite higher than previous. Question of this is somewhat of a demand component. Does have some hypomagnesemia and this was repleted. Not having active chest pain. Patient is inquiring a possible need for further home care and even possibly exploring hospice. Fully anticoagulated walk give additional aspirin at this time especially in light of recent bleed. Stool sample pending collection for stool testing. Could very well be secondary to her COVID. Not hypoxic likely. Question if her weakness is secondary to diarrhea and this may be related to her COVID. Not in any significant respiratory distress. Given the new troponin elevation discussed with her and the hospitalist for further care here. DIAGNOSIS: Weakness, elevated troponin, hypomagnesemia, diarrhea DISPOSITION: Hospitalist will evaluate Patient was agreeable with this plan. 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; s/p surgery, radiation, chemo (receiving weekly oral/IV chemo Fridays + dexamethasone 40mg pretreatment prior to chemo) Pneumonia due to 2019 novel coronavirus Positional vertigo Post herpetic neuralgia hx shingles Post-menopausal bleeding Sepsis Sleep apnea CPAP + 2 LPM O2 qhs Urinary leakage Surgical History Aortic valve replaced H/O surgical biopsy Right distal humerus 11/21/18 History of appendectomy History of bilateral carpal tunnel release History of cataract surgery Bilateral History of cholecystectomy History of endometrial biopsy History of knee replacement procedure of left knee History of knee replacement procedure of right knee History of surgery right distal humerus replacement History of tonsillectomy S/P dilation and curettage S/P tooth extraction S/P tubal ligation Family History Mother , 89yo Myocardial infarction Congestive heart failure Father , Pt unsure of details of father's health history;Knows he had facial cancer Malignant neoplasm of oral cavity Sister , May 2019 of copd Diabetes Breast cancer Son Hypertension Grandmother Diabetes Denies family history of Prostate cancer Lung cancer Colorectal cancer Social History Smoking Status: Never smoker Second Hand Exposure: Yes; Hx Alcohol Use: No Hx Substance Use: No Preferred Language: [place] Communication Ability: Effective Visual Impairment: No Limitations Hearing Ability: Normal [employer]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: No Beliefs That Will Affect Care: None marital status: / Current Living Situation: Family Current Living Situation Comment: family checks in current occupational 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 Feels Safe at Home: Yes Childhood Exposure to Second-Hand Smoke: No caffeine: Yes (1 cup/day) during the past year weight has: remained stable Dental Care, Regularly: No Physical Activity Frequency: Does not Exercise Seatbelt Use: always Sunscreen Use: Yes Assistive Devices: Walker and Wheelchair Allergies Allergies Allergy/AdvReac Type Severity Reaction Status Date / Time adhesive tape AdvReac Mild Skin rash Verified 08/10/22 16:12 Home Meds Home Medications Medication Instructions Recorded Confirmed cholecalciferol (vitamin D3) 50 1,000 unit PO QAM 07/31/19 08/28/22 mcg (2,000 unit) tablet amoxicillin 500 mg capsule 2,000 mg PO ONCE PRN DENTAL 08/01/19 08/28/22 APPOINTMENTS #4 caps acyclovir 400 mg tablet 400 mg PO BID 11/20/19 08/28/22 multivitamin 1 tab PO QAM 03/06/21 08/28/22 acetaminophen 650 mg 650 mg PO DAILY PRN pain 12/31/21 08/28/22 tablet,extended release ascorbic acid (vitamin C) 500 mg 1,000 mg PO QAM 12/31/21 08/28/22 tablet calcium carbonate 600 mg calcium 600 mg PO DAILY 12/31/21 08/28/22 (1,500 mg) tablet (Calcium) cyanocobalamin (vitamin B-12) 500 1,000 mcg PO QAM 12/31/21 08/28/22 mcg tablet triamcinolone acetonide 0.1 % 1 applic topical BID PRN dermatitis 12/31/21 topical cream ketotifen fumarate 0.025 % (0.035 1 drp ophthalmic (eye) BID 03/01/22 08/28/22 %) eye drops ([place]) atorvastatin 10 mg tablet 10 mg PO QAM 06/09/22 08/28/22 metformin 500 mg tablet,extended 1,000 mg PO QPM 06/09/22 08/28/22 release 24 hr warfarin 1 mg tablet 1 mg PO UD 06/09/22 08/28/22 potassium chloride 20 mEq 10 meq PO BID 07/10/22 08/28/22 tablet,extended release(part/cryst) furosemide 40 mg tablet 20 mg PO QAM 07/20/22 08/28/22 dexamethasone 4 mg tablet 20 mg PO .weekly 08/27/22 08/28/22 loratadine 10 mg tablet 10 mg PO DAILY PRN Allergic 08/28/22 08/28/22 Symptoms sodium di- and 1 tab PO BID 08/28/22 08/28/22 monophosphate-potassium phos monobasic 250 mg tablet (Phospha 250 Neutral) Previous Rx's Medication Instructions Recorded psyllium husk (with sugar) 3.4 1 ea PO QAM #1 btl 03/06/22 gram oral powder packet (Metamucil (with sugar)) nystatin 100,000 unit/gram topical 1 applic topical DAILY PRN Skin 03/12/22 powder Irritation #60 grams Wheeled Walker #1 ea 05/19/22 calcitonin (salmon) 200 1 spray intranasal (ALT) DAILY 07/11/22 unit/actuation nasal spray #3.7 mL oxycodone 5 mg tablet 5 mg PO Q6H PRN pain #18 tabs 07/20/22 warfarin 4 mg tablet See Rx Instructions .Route 08/03/22 .COMPLEX #180 tabs venlafaxine 75 mg capsule,extended 75 mg PO QAM #30 caps 08/23/22 release 24 hr pantoprazole 40 mg tablet,delayed 40 mg PO BID #60 tabs 08/25/22 release Results & Data (ED) Vital Signs Vital Signs - 24 hr 08/28/22 16:04 08/28/22 16:45 08/28/22 16:45 Temperature 36.8 C Temperature Source Temporal Artery Scan Pulse Rate 75 79 Respiratory Rate 18 20 Respiratory Effort / Characteristics Non-Labored Spontaneous Respiratory Depth Normal Blood Pressure 105/60 Blood Pressure Mean 75 Pulse Oximetry 94 99 99 Oxygen Delivery Method Room Air Room Air Room Air Sepsis Recent Fever Within 48 Hours No Sepsis New/Unexplained Change in Mental Status No Sepsis Action Taken by Nursing No Action Required Laboratory Data Result diagrams: 08/28/22 16:51 08/28/22 16:51 Lab Results 08/28/22 08/28/22 08/28/22 Range/Units 16:51 16:51 16:51 WBC (4.8-10.8) K/ul RBC (3.93-5.22) M/uL Hgb (12.0-16.0) g/dl Hct (34.1-44.9) % MCV (80.0-100.0) fL MCH (25.0-34.0) pg MCHC (32.0-36.0) g/dL RDW Std Deviation (36.4-46.3) fL RDW Coeff of Giuseppe (11.5-14.5) % Plt Count (130-400) K/uL MPV (9.4-12.3) fL Neutrophils % (Manual) % Lymphocytes % (Manual) % Monocytes % (Manual) % Eosinophils % (Manual) % Metamyelocytes % (Man) % Myelocytes % (Man) % Neutrophils # (Manual) (1.4-6.5) K/uL Total Absolute Neuts (1.4-6.5) K/uL Lymphocytes # (Manual) (1.2-3.4) K/uL Total Abs Lymphocytes (1.2-3.4) K/uL Monocytes # (Manual) (0.24-0.82) K/uL Eosinophils # (Manual) (0-0.50) K/uL Metamyelocytes # (Man) (0-0) K/uL Myelocytes # (Manual) (0-0) K/uL Ovalocytes Echinocytes PT 12.7 H (9.0-12.0) Seconds INR 1.2 H (0.9-1.1) Sodium 140 (136-145) mmol/L Potassium 4.0 (3.5-5.1) mmol/L Chloride 109 H (98-107) mmol/L Carbon Dioxide 25 (21-32) mmol/L Anion Gap 6 (3-11) BUN 16 (6-23) mg/dl Creatinine 0.75 (0.6-1.2) mg/dl Est Cr Clr Drug Dosing Not Reportable Est GFR ( Amer) 86.0 ml/min Est GFR (Non-Af Amer) 74.2 ml/min BUN/Creatinine Ratio 21.3 H (10-20) Glucose 112 H (70-99(Fasting)) mg/dl Lactate 1.5 (0.4-2.0) mmol/L Calcium 8.3 L (8.5-10.1) mg/dl Magnesium 1.6 L (1.7-2.4) mg/dl Total Bilirubin 0.2 (0.2-1.0) mg/dl AST 10 L (13-39) U/L ALT 8 (7-52) U/L Alkaline Phosphatase 70 (34-104) U/L Troponin I High Sens 71.5 H* D (0-14) pg/ml Total Protein 6.0 (6.0-8.3) gm/dl Albumin 2.9 L (3.4-5.0) gm/dl Globulin 3.1 (2.5-4.0) gm/dl Albumin/Globulin Ratio 0.9 (0.9-2) Procalcitonin (0-0.5) ng/ml TSH (0.300-4.500) uIu/ml Blood Type Antibody Screen 08/28/22 08/28/22 08/28/22 Range/Units 16:51 16:51 16:51 WBC 1.02 L (4.8-10.8) K/ul RBC 2.55 L (3.93-5.22) M/uL Hgb 8.3 L (12.0-16.0) g/dl Hct 25.7 L (34.1-44.9) % MCV 100.8 H (80.0-100.0) fL MCH 32.5 (25.0-34.0) pg MCHC 32.3 (32.0-36.0) g/dL RDW Std Deviation 62.5 H (36.4-46.3) fL RDW Coeff of Giuseppe 17.6 H (11.5-14.5) % Plt Count 171 (130-400) K/uL MPV 9.7 (9.4-12.3) fL Neutrophils % (Manual) 48 % Lymphocytes % (Manual) 30 % Monocytes % (Manual) 17 % Eosinophils % (Manual) 2 % Metamyelocytes % (Man) 2 % Myelocytes % (Man) 1 % Neutrophils # (Manual) 0.49 L (1.4-6.5) K/uL Total Absolute Neuts 0.49 L* (1.4-6.5) K/uL Lymphocytes # (Manual) 0.31 L (1.2-3.4) K/uL Total Abs Lymphocytes 0.31 L (1.2-3.4) K/uL Monocytes # (Manual) 0.17 L (0.24-0.82) K/uL Eosinophils # (Manual) 0.02 (0-0.50) K/uL Metamyelocytes # (Man) 0.02 H (0-0) K/uL Myelocytes # (Manual) 0.01 H (0-0) K/uL Ovalocytes 1+ Echinocytes 1+ PT (9.0-12.0) Seconds INR (0.9-1.1) Sodium (136-145) mmol/L Potassium (3.5-5.1) mmol/L Chloride (98-107) mmol/L Carbon Dioxide (21-32) mmol/L Anion Gap (3-11) BUN (6-23) mg/dl Creatinine (0.6-1.2) mg/dl Est Cr Clr Drug Dosing Est GFR ( Amer) ml/min Est GFR (Non-Af Amer) ml/min BUN/Creatinine Ratio (10-20) Glucose (70-99(Fasting)) mg/dl Lactate (0.4-2.0) mmol/L Calcium (8.5-10.1) mg/dl Magnesium (1.7-2.4) mg/dl Total Bilirubin (0.2-1.0) mg/dl AST (13-39) U/L ALT (7-52) U/L Alkaline Phosphatase (34-104) U/L Troponin I High Sens (0-14) pg/ml Total Protein (6.0-8.3) gm/dl Albumin (3.4-5.0) gm/dl Globulin (2.5-4.0) gm/dl Albumin/Globulin Ratio (0.9-2) Procalcitonin < 0.05 (0-0.5) ng/ml TSH 2.217 (0.300-4.500) uIu/ml Blood Type Antibody Screen 08/28/22 Range/Units 16:53 WBC (4.8-10.8) K/ul RBC (3.93-5.22) M/uL Hgb (12.0-16.0) g/dl Hct (34.1-44.9) % MCV (80.0-100.0) fL MCH (25.0-34.0) pg MCHC (32.0-36.0) g/dL RDW Std Deviation (36.4-46.3) fL RDW Coeff of Giuseppe (11.5-14.5) % Plt Count (130-400) K/uL MPV (9.4-12.3) fL Neutrophils % (Manual) % Lymphocytes % (Manual) % Monocytes % (Manual) % Eosinophils % (Manual) % Metamyelocytes % (Man) % Myelocytes % (Man) % Neutrophils # (Manual) (1.4-6.5) K/uL Total Absolute Neuts (1.4-6.5) K/uL Lymphocytes # (Manual) (1.2-3.4) K/uL Total Abs Lymphocytes (1.2-3.4) K/uL Monocytes # (Manual) (0.24-0.82) K/uL Eosinophils # (Manual) (0-0.50) K/uL Metamyelocytes # (Man) (0-0) K/uL Myelocytes # (Manual) (0-0) K/uL Ovalocytes Echinocytes PT (9.0-12.0) Seconds INR (0.9-1.1) Sodium (136-145) mmol/L Potassium (3.5-5.1) mmol/L Chloride (98-107) mmol/L Carbon Dioxide (21-32) mmol/L Anion Gap (3-11) BUN (6-23) mg/dl Creatinine (0.6-1.2) mg/dl Est Cr Clr Drug Dosing Est GFR ( Amer) ml/min Est GFR (Non-Af Amer) ml/min BUN/Creatinine Ratio (10-20) Glucose (70-99(Fasting)) mg/dl Lactate (0.4-2.0) mmol/L Calcium (8.5-10.1) mg/dl Magnesium (1.7-2.4) mg/dl Total Bilirubin (0.2-1.0) mg/dl AST (13-39) U/L ALT (7-52) U/L Alkaline Phosphatase (34-104) U/L Troponin I High Sens (0-14) pg/ml Total Protein (6.0-8.3) gm/dl Albumin (3.4-5.0) gm/dl Globulin (2.5-4.0) gm/dl Albumin/Globulin Ratio (0.9-2) Procalcitonin (0-0.5) ng/ml TSH (0.300-4.500) uIu/ml Blood Type A Negative Antibody Screen POSITIVE A Administered Medications Acyclovir (Acyclovir 400 Mg Tab) 400 mg PO BID DEVON Stop: 09/27/22 20:59 Last Admin: 08/28/22 21:56 Dose: 400 mg Documented By: GRACIELA Insulin Aspart (Insulin Aspart Per Unit) 0 units SC ACHS DEVON Stop: 09/27/22 20:59 Last Admin: 08/28/22 21:59 Dose: Not Given Documented By: RC Pantoprazole Sodium (Pantoprazole 40 Mg Tab) 40 mg PO BID DEVON Stop: 09/27/22 20:59 Last Admin: 08/28/22 21:57 Dose: 40 mg Documented By: GRACIELA Potassium Chloride (Potassium Chloride 10 Meq Tabcr) 10 meq PO BID DEVON Stop: 09/27/22 20:59 Last Admin: 08/28/22 21:57 Dose: 10 meq Documented By: GRACILEA Potassium Phosphate (Pot Phosphate Monobasic W/ Sod Tab) 1 tab PO BID DEVON Stop: 09/27/22 20:59 Last Admin: 08/28/22 21:57 Dose: 1 tab Documented By: GRACIELA Warfarin Sodium (Warfarin Sod 4 Mg Tab) 8 mg PO DAILY@1600 [facility] Stop: 09/27/22 21:44 Last Admin: 08/28/22 21:58 Dose: 8 mg Documented By: GRACIELA Discontinued Medications Magnesium Sulfate/Dextrose (Magnesium Sulfate / D5w) 1 gm in 100 mls @ 200 mls/hr IV Q30M DEVON Stop: 08/28/22 18:59 Last Infusion: 08/28/22 19:54 Dose: 0 mls/hr Documented By: Admin: 08/28/22 19:10 Dose: 200 mls/hr Documented By: Infusion: 08/28/22 19:02 Dose: 0 mls/hr Documented By: Admin: 08/28/22 18:23 Dose: 200 mls/hr Documented By: QGV Imaging Data Radiologist's Impression: Chest X-Ray 08/28/22 16:27 XR chest 1V portable HISTORY: Weakness. Shortness of breath. COMPARISON: Chest 08/20/2022. FINDINGS: No pneumothorax. The heart remains enlarged. An aortic valve prosthesis and a left-sided dual-chamber pacemaker again noted. There are old, healed right-sided rib fractures. There is mild central pulmonary vascular congestion without overt edema. No new focal lung consolidations to suggest a pneumonia. A few bibasilar densities favor subsegmental atelectasis. IMPRESSION: Cardiomegaly with mild central pulmonary vascular congestion without overt edema. This has slightly progressed. ACT 112: Negative or not required by law. Electronically signed by: Merrick Latif M.D. 08/28/2022 5:51 PM Discharge Plan Visit Data Chief Complaint: Diarrhea Stated Complaint: DIARRHEA, MUCUS IN STOOL, SOB, WEIGHT LOSS ED Provider: Jaxson Emery Discharge Problem: Weakness, COVID-19, Diarrhea, Elevated troponin Patient Disposition: Admitted As Inpatient Discharge Instructions Interventions: ED Discharge Assessment Last Done: 08/28/22 20:24
[2022-08-28 17:03] LABS: Hematocrit (blood only) 25.7 % (34.1-44.9); Hemoglobin 8.3 g/dl (12.0-16.0); Mean Corpuscular Hemoglobin 32.5 pg (25.0-34.0); Mean Corpuscular Hgb Conc 32.3 g/dL (32.0-36.0); Mean Corpuscular Volume 100.8 fL (80.0-100.0); Mean Platelet Volume 9.7 fL (9.4-12.3); Platelet Count 171 K/uL (130-400); RDW Coefficient of Variation 17.6 % (11.5-14.5); RDW Standard Deviation 62.5 fL (36.4-46.3); Red Blood Count 2.55 M/uL (3.93-5.22); White Blood Count 1.02 K/ul (4.8-10.8)
[2022-08-28 17:17] LABS: INR 1.2 (0.9-1.1); Prothrombin Time 12.7 Seconds (9.0-12.0)
[2022-08-28 17:27] LABS: Alanine Aminotransferase 8 U/L (7-52); Albumin Globulin Ratio 0.9 (0.9-2); Albumin Level 2.9 gm/dl (3.4-5.0); Alkaline Phosphatase 70 U/L (34-104); Anion Gap 6 (3-11); Aspartate Aminotransferase 10 U/L (13-39); BUN Creatinine Ratio 21.3 (10-20); Bilirubin,Total 0.2 mg/dl (0.2-1.0); Blood Urea Nitrogen 16 mg/dl (6-23); Calcium 8.3 mg/dl (8.5-10.1); Carbon Dioxide 25 mmol/L (21-32); Chloride 109 mmol/L (98-107); Est GFR (Non-African American) 74.2 ml/min; Globulin 3.1 gm/dl (2.5-4.0); Glucose 112 mg/dl (70-99(Fasting)); Magnesium 1.6 mg/dl (1.7-2.4); Sodium 140 mmol/L (136-145)
[2022-08-28 17:34] LABS: Troponin I High Sensitivity 71.5 pg/ml (0-14)
[2022-08-28 17:38] LABS: ALC (manual) 0.31 K/uL (1.2-3.4); ANC (manual) 0.49 K/uL (1.4-6.5); Echinocytes 1+; Eosinophils # (manual) 0.02 K/uL (0-0.50); Eosinophils % (manual) 2 %; Lymphocytes # (manual) 0.31 K/uL (1.2-3.4); Lymphocytes % (manual) 30 %; Metamyelocytes # (manual) 0.02 K/uL (0-0); Metamyelocytes % (manual) 2 %; Monocytes # (manual) 0.17 K/uL (0.24-0.82); Monocytes % (manual) 17 %; Myelocytes # (manual) 0.01 K/uL (0-0); Myelocytes % (manual) 1 %; Neutrophils # (manual) 0.49 K/uL (1.4-6.5); Neutrophils % (manual) 48 %; Ovalocytes 1+
--- NOTE | 2022-08-28 17:53 | XRay Report ---
XR chest 1V portable HISTORY: Weakness. Shortness of breath. COMPARISON: Chest 08/20/2022. FINDINGS: No pneumothorax. The heart remains enlarged. An aortic valve prosthesis and a left-sided du al-chamber pacemaker again noted. There are old, healed right-sided rib fractures. There is mild cent ral pulmonary vascular congestion without overt edema. No new focal lung consolidations to suggest a pneumonia. A few bibasilar densities favor subsegmental atelectasis. IMPRESSION: Cardiomegaly with mild central pulmonary vascular congestion without overt edema. This has slightly p rogressed. ACT 112: Negative or not required by law. Electronically signed by: Merrick Latif M.D. 08/28/2022 5:51 PM
--- NOTE | 2022-08-28 18:17 | History & Physical Report ---
Date of Service August 28, 2022 Assessment & Plan (1) COVID-19: Plan: - Diagnosed in hospital 08/24. Currently with mild shortness of breath, productive cough, generalized weakness and diarrhea. - As patient is not currently requiring oxygen, will defer on steroids and remdesivir for now. - Supportive therapy. (2) Diarrhea: Plan: - Sounds like this is a chronic issue, going on for at least 1 year, however given her recent hospitalization will perform stool bio fire panel to rule out C. difficile and bacterial causes. - If negative, then this is likely exacerbated due to COVID-19 infection. Will provide supportive care, to include Imodium or other dysmotility agent, once C. difficile ruled out. - Also checking calprotectin to rule out inflammatory causes. (3) Elevated troponin: Plan: - Trop elevated to 71, patient has been short of breath but without any chest pain or complications. This is likely demand ischemia from general illness, COVID. EKG with ventricular paced rhythm, no ST segment or T wave inversions. - Will trend troponin and obtain echo. (4) Weakness: Plan: - Bradycardia secondary to diarrhea, COVID-19 infection, multiple comorbidities, will have PT/OT see patient while she is here. - Patient and her son, who she resides with, would like to have home health services arranged upon discharge. (5) Anemia: Plan: - Hgb 8.3, was discharged after UGI bleed with hemoglobin at 8.2 on 08/25. - No signs or symptoms of rebleeding. Monitor on a.m. labs. - Continue on PPI twice daily. (6) DVT prophylaxis: Plan: - Recurrent VTE's with hypercoagulability, as well as current cancer. She is chronically on warfarin 8 mg daily, with 9 mg dosing on Tuesday. - INR today 1.2. (7) Coronary artery disease: Plan: - Nonobstructive. Continue statin. Baby aspirin stopped on discharge last admission due to GI bleed. (8) S/P TAVR (transcatheter aortic valve replacement): Plan: - Replaced in May. With some pulmonary vascular congestion, no overt edema on CXR. - Obtaining echo as above for elevated troponin. - Ricky type prosthetic valve. (9) (HFpEF) heart failure with preserved ejection fraction: Plan: - Echo 07/16: EF 40-44%, hypokinesis/akinesis in segments of apical, septal, anteroseptal wall. - Continue Lasix 20 mg daily. (10) Sleep apnea: Plan: - CPAP at night with 2 LPM O2. (11) Diabetes mellitus, type 2: Plan: - A1c 5.9% in April. -Sliding scale insulin ordered. (12) Myeloma: Plan: - Diagnosed with multiple myeloma in July 2019. 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 - Patient follows with [facility]/onc Dr. Allen. - Chemo treatment on hold pending recovery from GI bleed, COVID infection. (13) Pancytopenia: Plan: - Secondary to cancer, chemotherapy treatment. - Neutropenic precautions. - Admit hemoglobin stable from discharge hemoglobin. Plan - Admit to med/telemetry. - SCDs, Coumadin for VTE PPx. - DNR/DNI. 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 She is presenting today with several concerns. She was just discharged on 08/25 after a 5-day hospital stay for anemia secondary to suspected upper GI bleed, requiring 2 units pRBCs. Discharged with hemoglobin 8.2. Of note, she did test positive for COVID-19 infection on 08/24 while in the hospital. Since discharge, she has been living with her son and has felt progressively weak, with some worsened shortness of breath and coughing at home, as well as a large amount of nonbloody, mucousy diarrhea. She reports she is going 5-10 times/day. She has not been having any abdominal pain, nausea, vomiting. She has not had any chest pain or palpitations. Since arrival to the ED, her vital signs have been within normal limits and stable. Her labs are significant for WBC of 1.02 with total absolute neutrophils 0.49. Her troponin was elevated at 71.5. Her calcium and magnesium were mildly low at 8.3 and 1.6 respectively. Hemoglobin is stable since discharge, 8.3. Renal function is at baseline, lactate 1.5, hepatic function stable. Check showed mild pulmonary vascular congestion without overt edema, slightly progressive since discharge. Allergies Allergy/AdvReac Type Severity Reaction Status Date / Time adhesive tape AdvReac Mild Skin rash Verified 08/10/22 16:12 Home Medications Medication Instructions Recorded Confirmed Type cholecalciferol (vitamin D3) 50 1,000 unit PO QAM 07/31/19 08/28/22 History mcg (2,000 unit) tablet amoxicillin 500 mg capsule 2,000 mg PO ONCE PRN DENTAL 08/01/19 08/28/22 History APPOINTMENTS #4 caps acyclovir 400 mg tablet 400 mg PO BID 11/20/19 08/28/22 History multivitamin 1 tab PO QAM 03/06/21 08/28/22 History acetaminophen 650 mg 650 mg PO DAILY PRN pain 12/31/21 08/28/22 History tablet,extended release ascorbic acid (vitamin C) 500 mg 1,000 mg PO QAM 12/31/21 08/28/22 History tablet calcium carbonate 600 mg calcium 600 mg PO DAILY 12/31/21 08/28/22 History (1,500 mg) tablet (Calcium) cyanocobalamin (vitamin B-12) 500 1,000 mcg PO QAM 12/31/21 08/28/22 History mcg tablet triamcinolone acetonide 0.1 % 1 applic topical BID PRN dermatitis 12/31/21 08/28/22 History topical cream ketotifen fumarate 0.025 % (0.035 1 drp ophthalmic (eye) BID 03/01/22 08/28/22 History %) eye drops ([place]) psyllium husk (with sugar) 3.4 1 ea PO QAM #1 btl 03/06/22 08/28/22 Rx gram oral powder packet (Metamucil (with sugar)) nystatin 100,000 unit/gram topical 1 applic topical DAILY PRN Skin 03/12/22 08/28/22 Rx powder Irritation #60 grams Wheeled Walker #1 ea 05/19/22 08/27/22 Rx atorvastatin 10 mg tablet 10 mg PO QAM 06/09/22 08/28/22 History metformin 500 mg tablet,extended 1,000 mg PO QPM 06/09/22 08/28/22 History release 24 hr warfarin 1 mg tablet 1 mg PO UD 06/09/22 08/28/22 History potassium chloride 20 mEq 10 meq PO BID 07/10/22 08/28/22 History tablet,extended release(part/cryst) calcitonin (salmon) 200 1 spray intranasal (ALT) DAILY 07/11/22 08/28/22 Rx unit/actuation nasal spray #3.7 mL furosemide 40 mg tablet 20 mg PO QAM 07/20/22 08/28/22 History oxycodone 5 mg tablet 5 mg PO Q6H PRN pain #18 tabs 07/20/22 08/28/22 Rx warfarin 4 mg tablet See Rx Instructions .Route 08/03/22 08/28/22 Rx .COMPLEX #180 tabs venlafaxine 75 mg capsule,extended 75 mg PO QAM #30 caps 08/23/22 08/28/22 Rx release 24 hr pantoprazole 40 mg tablet,delayed 40 mg PO BID #60 tabs 08/25/22 08/28/22 Rx release dexamethasone 4 mg tablet 20 mg PO .weekly 08/27/22 08/28/22 History loratadine 10 mg tablet 10 mg PO DAILY PRN Allergic 08/28/22 08/28/22 History Symptoms sodium di- and 1 tab PO BID 08/28/22 08/28/22 History monophosphate-potassium phos monobasic 250 mg tablet (Phospha 250 Neutral) 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; s/p surgery, radiation, chemo (receiving weekly oral/IV chemo Fridays + dexamethasone 40mg pretreatment prior to chemo) Pneumonia due to 2019 novel coronavirus Positional vertigo Post herpetic neuralgia hx shingles Post-menopausal bleeding Sepsis Sleep apnea CPAP + 2 LPM O2 qhs Urinary leakage Surgical History Aortic valve replaced H/O surgical biopsy Right distal humerus 11/21/18 History of appendectomy History of bilateral carpal tunnel release History of cataract surgery Bilateral History of cholecystectomy History of endometrial biopsy History of knee replacement procedure of left knee History of knee replacement procedure of right knee History of surgery right distal humerus replacement History of tonsillectomy S/P dilation and curettage S/P tooth extraction S/P tubal ligation Family History Mother , 89yo Myocardial infarction Congestive heart failure Father , Pt unsure of details of father's health history;Knows he had facial cancer Malignant neoplasm of oral cavity Sister , May 2019 of copd Diabetes Breast cancer Son Hypertension Grandmother Diabetes Denies family history of Prostate cancer Lung cancer Colorectal cancer Social History Smoking Status: Never smoker Second Hand Exposure: Yes; Hx Alcohol Use: No Hx Substance Use: No Preferred Language: Sami Communication Ability: Effective Visual Impairment: No Limitations Hearing Ability: Normal [place]li[place] Mechanic Required: No Beliefs That Will Affect Care: None marital status: / Current Living Situation: Family Current Living Situation Comment: family checks in current occupational status: 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 Feels Safe at Home: Yes Childhood Exposure to Second-Hand Smoke: No caffeine: Yes (1 cup/day) during the past year weight has: remained stable Dental Care, Regularly: No Physical Activity Frequency: Does not Exercise Seatbelt Use: always Sunscreen Use: Yes Assistive Devices: Walker and Wheelchair Review of Systems Review of Systems: Constitutional: Weakness, fatigue since discharge; no fever/chills, myalgias, anorexia, night sweats Eyes: No diplopia, no worsening or blurred vision ENT: normal hearing, no trouble swallowing Respiratory: Cough, shortness of breath with minimal activity, such as sitting up from chair, conversation; has had some but minimal sputum production Cardiovascular: No chest pain, tightness or palpitations Abdomen: Copious nonbloody, mucus filled diarrhea since discharge; no pain, nausea, vomiting, hematochezia, melena, constipation : Denies dysuria, hematuria, increased urgency/frequency, urinary retention Musculoskeletal: No joint pain, calf pain, swelling Neurologic: No weakness, numbness/tingling, or balance problems Psychiatric: No anxiety or depression Skin: No rash or itch Physical Exam Physical Exam: General: awake, alert, no apparent distress Head: Normocephalic, atraumatic ENT: PERRL, EOMI, no pharyngeal exudate, mucous membranes moist Chest: Wheezing throughout lung howell Cardiac: Regular rate and rhythm, no murmur, no JVD, normal peripheral pulses, good capillary refill Abdominal: NABS x 4 quadrants, soft, nontender to palpation, no rebound, guarding or tenderness Extremities: Normal inspection, no peripheral edema or erythema, calfs nontender to palpation Psych: Normal mood and affect Neuro: AAO x 3, strength intact bilaterally and rated 5/5, no motor deficits, speech is clear, no peripheral sensory deficits Skin: no rash or erythema Results & Data Results & Data ([facility]) Vital Signs (Past 12 Hours) Vital Signs Temp Pulse Resp BP Pulse Ox O2 Del Method 08/28/22 16:45 79 20 99 Room Air 08/28/22 16:45 99 Room Air 08/28/22 16:04 36.8 C 75 18 105/60 94 Room Air Laboratory Results Abnormal lab results 08/28/22 08/28/22 08/28/22 Range/Units 16:51 16:51 16:51 WBC 1.02 L (4.8-10.8) K/ul RBC 2.55 L (3.93-5.22) M/uL Hgb 8.3 L (12.0-16.0) g/dl Hct 25.7 L (34.1-44.9) % MCV 100.8 H (80.0-100.0) fL RDW Std Deviation 62.5 H (36.4-46.3) fL RDW Coeff of Giuseppe 17.6 H (11.5-14.5) % Neutrophils # (Manual) 0.49 L (1.4-6.5) K/uL Total Absolute Neuts 0.49 L* (1.4-6.5) K/uL Lymphocytes # (Manual) 0.31 L (1.2-3.4) K/uL Total Abs Lymphocytes 0.31 L (1.2-3.4) K/uL Monocytes # (Manual) 0.17 L (0.24-0.82) K/uL Metamyelocytes # (Man) 0.02 H (0-0) K/uL Myelocytes # (Manual) 0.01 H (0-0) K/uL PT 12.7 H (9.0-12.0) Seconds INR 1.2 H (0.9-1.1) Chloride 109 H (98-107) mmol/L BUN/Creatinine Ratio 21.3 H (10-20) Glucose 112 H (70-99(Fasting)) mg/dl Calcium 8.3 L (8.5-10.1) mg/dl Magnesium 1.6 L (1.7-2.4) mg/dl AST 10 L (13-39) U/L Troponin I High Sens 71.5 H* D (0-14) pg/ml Albumin 2.9 L (3.4-5.0) gm/dl Antibody Screen 08/28/22 Range/Units 16:53 WBC (4.8-10.8) K/ul RBC (3.93-5.22) M/uL Hgb (12.0-16.0) g/dl Hct (34.1-44.9) % MCV (80.0-100.0) fL RDW Std Deviation (36.4-46.3) fL RDW Coeff of Giuseppe (11.5-14.5) % Neutrophils # (Manual) (1.4-6.5) K/uL Total Absolute Neuts (1.4-6.5) K/uL Lymphocytes # (Manual) (1.2-3.4) K/uL Total Abs Lymphocytes (1.2-3.4) K/uL Monocytes # (Manual) (0.24-0.82) K/uL Metamyelocytes # (Man) (0-0) K/uL Myelocytes # (Manual) (0-0) K/uL PT (9.0-12.0) Seconds INR (0.9-1.1) Chloride (98-107) mmol/L BUN/Creatinine Ratio (10-20) Glucose (70-99(Fasting)) mg/dl Calcium (8.5-10.1) mg/dl Magnesium (1.7-2.4) mg/dl AST (13-39) U/L Troponin I High Sens (0-14) pg/ml Albumin (3.4-5.0) gm/dl Antibody Screen POSITIVE A Diagnostic Findings Chest X-Ray 08/28/22 16:27 XR chest 1V portable HISTORY: Weakness. Shortness of breath. COMPARISON: Chest 08/20/2022. FINDINGS: No pneumothorax. The heart remains enlarged. An aortic valve prosthesis and a left-sided dual-chamber pacemaker again noted. There are old, healed right-sided rib fractures. There is mild central pulmonary vascular congestion without overt edema. No new focal lung consolidations to suggest a pneumonia. A few bibasilar densities favor subsegmental atelectasis. IMPRESSION: Cardiomegaly with mild central pulmonary vascular congestion without overt edema. This has slightly progressed. ACT 112: Negative or not required by law. Electronically signed by: Merrick Latif M.D. 08/28/2022 5:51 PM ECG Additional Comments: Ventricular-paced rhythm Abnormal ECG When compared with ECG of 20-AUG-2022 16:33, Vent. rate has decreased BY 7 BPM. Code Status & VTE Plan Code Status DNR/DNI Supervising Physician Co-Signing Physician Notes Patient seen and examined, chart reviewed, case discussed with Magaly Louis PA-C and I agree with the assessment and plan as above except as otherwise noted Labs and images reviewed 80-year-old female with a past medical history of MM on chemo, DM, GERD, hyperlipidemia, nonobstructive CAD, DVT on PE, and recent hospitalization was discharged 08/25 following upper GI bleed who was negative for COVID on admission but tested positive subsequently during her stay. She presents to the ER with worsened weakness, some shortness of breath and cough, nonbloody/mucousy diarrhea, and an elevated troponin. On exam lungs are grossly clear, heart rate is regular, she is not hypoxic. Hemoglobin is 8.3, discharging hemoglobin was 8.2. Troponin is elevated to 71.5, no chest pain on ER evaluation, and EKG shows a ventricular paced rhythm with QTC 490. Suspect weakness and demand ischemia in the setting of COVID and diarrhea. Troponin trended, procalcitonin negative, stool panel pending. Defer steroids/remdesivir as is not hypoxic at this time. CXR shows mild central pulmonary vascular congestion, continue Lasix and defer IV fluids at this time. Magnesium repleted. Agree with management above. PG Care Time/CCT Total # of Minutes Spent Total Time Spent with Patient: Total time spent is greater than 50% in coordination of care (as documented) at patient's floor/unit and/or counseling patient: Coding Level of Care Code 42046 Initial Inpt Care Lvl 3 Diagnoses COVID-19 U07.1 Diarrhea R19.7 Elevated troponin R77.8 Weakness R53.1 Anemia D64.9 DVT prophylaxis Z29.9 Coronary artery disease I25.10 S/P TAVR (transcatheter aortic valve replacement) Z95.2 (HFpEF) heart failure with preserved ejection fraction I50.33 Heart failure chronicity: acute on chronic Sleep apnea G47.30 Diabetes mellitus, type 2 E11.9 Diabetes mellitus custodial insulin use: without termite renewal inspector use Diabetes mellitus complication status: without complication Myeloma C90.00 Multiple myeloma remission status: unspecified Pancytopenia D61.818 (1) (HFpEF) heart failure with preserved ejection fraction Heart failure chronicity: acute on chronic Qualified Code(s): I50.33 - Acute on chronic diastolic (congestive) heart failure (2) Diabetes mellitus, type 2 Diabetes mellitus custodial insulin use: without termite renewal inspector use Diabetes mellitus complication status: without complication Qualified Code(s): E11.9 - Type 2 diabetes mellitus without complications (3) Myeloma Multiple myeloma remission status: unspecified Qualified Code(s): C90.00 - Multiple myeloma not having achieved remission
[2022-08-28] MEDS: MAGNESIUM SULFATE / D5W 1 GM/100 ML BAG IV SCH ×2 (18:23→19:10)
[2022-08-28] MEDS ORDERED: NYSTATIN POWDER 15GM BTL EXT PRN (20:56)
[2022-08-28] MEDS ORDERED: GLUCAGON FOR INJ 1 MG VIAL SQ PRN (20:56)
[2022-08-28] MEDS ORDERED: ONDANSETRON INJ 2 MG/ML 2 ML VIAL IV PRN (20:56)
[2022-08-28] MEDS ORDERED: GLUCOSE 10 TAB/TUBE PO PRN (20:56)
[2022-08-28] MEDS ORDERED: GLUCOSE 40% GEL 15 GM TUBE PO PRN (20:56)
[2022-08-28] MEDS ORDERED: TRIAMCINOLONE ACET 0.1% CR 15 GM TUBE TOP PRN (20:56)
[2022-08-28] MEDS ORDERED: dexAMETHasone 4 MG TAB PO SCH (20:56)
[2022-08-28] MEDS ORDERED: DC ALL PREVIOUSLY ORDERED DIABETES MEDS ONE (20:56)
[2022-08-28] MEDS ORDERED: ALUMINUM/MAGNESIUM SUSP 30 ML UDC PO PRN (20:56)
[2022-08-28] MEDS ORDERED: DEXTROSE 50% 50 ML SYRINGE IV PRN (20:56)
[2022-08-28] MEDS ORDERED: POLYETHYLENE (MIRALAX) 17 GM PACK PO PRN (20:56)
[2022-08-28] MEDS ORDERED: LORATADINE 10 MG TAB PO PRN (20:56)
[2022-08-28] MEDS ORDERED: CARBOHYDRATES FOR HYPOGLYCEMIA PO PRN (20:56)
[2022-08-28] MEDS: ACYCLOVIR 400 MG TAB PO SCH (21:56)
[2022-08-28] MEDS: PANTOprazole 40 MG TAB PO SCH (21:57)
[2022-08-28] MEDS: POTASSIUM CHLORIDE 10 MEQ TABCR PO SCH (21:57)
[2022-08-28] MEDS: POT PHOSPHATE MONOBASIC W/ SOD TAB PO SCH (21:57)
[2022-08-28] MEDS: WARFARIN SOD 4 MG TAB PO SCH (21:58)
[2022-08-28] MEDS: INSULIN ASPART PER UNIT SC SCH (21:59)
[2022-08-28 22:27] LABS: Appearance Urine Clear (Clear); Bacteria Urine Automated Negative (Negative); Bilirubin Urine Negative (Negative); Blood Urine Negative (Negative); Color Urine Yellow; Epithelial Cell Urine Auto >30 /lpf (0-5); Glucose Urine UA Negative (Negative); Ketones Urine Negative (Negative); Leukocyte Esterase Urine Trace (Negative); Nitrite Urine Negative (Negative); Protein Urine Trace (Negative); RBC Urine Automated 0-4 /hpf (0-4); Specific Gravity Urine 1.014 (1.000-1.030); Urobilinogen Urine Negative (Negative); pH Urine 5.5 (4.5-7.5)
--- NOTE | 2022-08-29 05:49 | Communication Note ---
Date of Service: August 29, 2022 notified by nursing that patient only takes the decadron on tue and sat before outpatient cancer treatment. removing med order for .weekly decadron
[2022-08-29 07:58] LABS: INR 1.3 (0.9-1.1); Prothrombin Time 13.5 Seconds (9.0-12.0)
[2022-08-29] MEDS: INSULIN ASPART PER UNIT SC SCH ×4 (08:02→20:47)
[2022-08-29 08:04] LABS: BUN Creatinine Ratio 18.8 (10-20); Calcium 8.1 mg/dl (8.5-10.1); Creatinine Clr Calc Pharmacy 70.5 ml/min; Est GFR (African American) 96.3 ml/min; Est GFR (Non-African American) 83.1 ml/min; Potassium 3.6 mmol/L (3.5-5.1)
[2022-08-29 08:06] LABS: Hematocrit (blood only) 24.5 % (34.1-44.9); Hemoglobin 7.9 g/dl (12.0-16.0); Mean Corpuscular Hemoglobin 32.1 pg (25.0-34.0); Mean Corpuscular Hgb Conc 32.2 g/dL (32.0-36.0); Mean Corpuscular Volume 99.6 fL (80.0-100.0); Mean Platelet Volume 9.9 fL (9.4-12.3); Platelet Count 163 K/uL (130-400); RDW Coefficient of Variation 17.8 % (11.5-14.5); RDW Standard Deviation 62.4 fL (36.4-46.3); Red Blood Count 2.46 M/uL (3.93-5.22); White Blood Count 0.67 K/ul (4.8-10.8)
[2022-08-29] MEDS: FUROSEMIDE 20 MG TAB PO SCH (08:09)
[2022-08-29] MEDS: CALCIUM CARBONATE 1250MG TAB PO SCH (08:09)
[2022-08-29] MEDS: POTASSIUM CHLORIDE 10 MEQ TABCR PO SCH ×2 (08:09→20:54)
[2022-08-29] MEDS: VENLAFAXINE HCL XR 75 MG CAPXR PO SCH (08:10)
[2022-08-29] MEDS: PSYLLIUM or GUAR GUM FIBER POWDER PACKET PO SCH (08:10)
[2022-08-29] MEDS: ASCORBIC ACID 500 MG TAB PO SCH (08:10)
[2022-08-29] MEDS: ATORVASTATIN 10 MG TAB PO SCH (08:10)
[2022-08-29] MEDS: POT PHOSPHATE MONOBASIC W/ SOD TAB PO SCH ×2 (08:11→20:55)
[2022-08-29] MEDS: PANTOprazole 40 MG TAB PO SCH ×2 (08:11→20:54)
[2022-08-29] MEDS: CYANOCOBALAMIN (B-12) 500 MCG TABLET PO SCH (08:11)
[2022-08-29] MEDS: CHOLECALCIFEROL 1,000 UNITS 25 MCG TAB PO SCH (08:11)
[2022-08-29] MEDS: ACYCLOVIR 400 MG TAB PO SCH ×2 (08:11→20:53)
[2022-08-29 08:12] LABS: Basophils # (auto) 0.01 K/uL (0-0.2); Basophils % (auto) 1.5 %; Eosinophils # (auto) 0.01 K/uL (0-0.50); Eosinophils % (auto) 1.5 %; Lymphocytes # (auto) 0.21 K/uL (1.2-3.4); Lymphocytes % (auto) 31.3 %; Monocytes # (auto) 0.18 K/uL (0.24-0.82); Monocytes % (auto) 26.9 %; Neutrophils # (auto) 0.26 K/uL (1.4-6.5); Neutrophils % (auto) 38.8 %; Polychromasia 1+
[2022-08-29 08:15] LABS: Troponin I High Sensitivity 69.6 pg/ml (0-14)
[2022-08-29] MEDS: CALCITONIN SALMON NA 200 IU/AC 3.7 ML BTL SCH (08:15)
[2022-08-29 08:26] LABS: Ferritin 562.3 ng/ml (8-388)
[2022-08-29 08:31] LABS: Vitamin B12 807 pg/ml (180-914)
--- NOTE | 2022-08-29 08:56 | Electrocardiogram Report ---
Test Reason : Blood Pressure : / mmHG Vent. Rate : 070 BPM Atrial Rate : 070 BPM P-R Int : 000 ms QRS Dur : 174 ms QT Int : 490 ms P-R-T Axes : 018 263 067 degrees QTc Int : 529 ms Atrial sensing, ventricular pacing Abnormal ECG When compared with ECG of 20-AUG-2022 16:33, Vent. rate has decreased BY 7 BPM Confirmed by Nabil Pena ([id number]) on 08/29/2022 8:56:18 AM Referred By: REFERRED SELF Confirmed By:Nabil Pena
[2022-08-29 10:53] LABS: Adenovirus F 40/41 PCR Not Detected (NotDetected); Astrovirus PCR Not Detected (NotDetected); Campylobacter PCR Not Detected (NotDetected); Clostridium diff Toxin A/B PCR Not Detected (NotDetected); Cryptosporidium PCR Not Detected (NotDetected); Cyclospora cayetanensis PCR Not Detected (NotDetected); Entamoeba histolytica PCR Not Detected (NotDetected); Enteroaggregative E.coli(EAEC) Not Detected (NotDetected); Enteropathogenic E.coli (EPEC) Not Detected (NotDetected); Enterotoxigenic E.coli (ETEC) Not Detected (NotDetected); Giardia lamblia PCR Not Detected (NotDetected); Norovirus GI/GII PCR Not Detected (NotDetected); Plesiomonas shigelloides PCR Not Detected (NotDetected); Rotavirus A PCR Not Detected (NotDetected); Salmonella PCR Not Detected (NotDetected); Sapovirus PCR Not Detected (NotDetected); Shiga-like Toxin E.coli (STEC) Not Detected (NotDetected); Shigella/Enteroinvasive E.coli Not Detected (NotDetected); Vibrio cholerae PCR Not Detected (NotDetected); Vibrio species PCR Not Detected (NotDetected); Yersinia enterocolitica PCR Not Detected (NotDetected)
--- NOTE | 2022-08-29 13:04 | XCELERA ---
[id number]
[2022-08-29] MEDS ORDERED: WARFARIN SOD 1 MG TAB PO SCH (16:00)
[2022-08-29] MEDS ORDERED: guaiFENesin/CODEINE 100MG/10MG 5ML UDC PO PRN (17:06)
[2022-08-29] MEDS ORDERED: LOPERAMIDE HCL 2 MG CAP PO PRN (17:06)
--- NOTE | 2022-08-29 17:06 | Hospitalist Progress Note ---
Date of Service August 29, 2022 Assessment & Plan (1) COVID-19: Plan: - Diagnosed in hospital 08/24 while in the hospital. Currently with mild shortness of breath, productive cough, generalized weakness and diarrhea. - As patient is not currently requiring oxygen, will defer on steroids and remdesivir for now. - Supportive therapy. (2) Diarrhea: Plan: Sounds like this is a chronic issue, going on for at least 1 year; worse now with Covid. Stool PCR negative. - Calprotectin pending for inflammatory cause -> Could follow up with colonoscopy with GI when she does GI bleed follow-up. - Imodium PRN (3) Elevated troponin: Plan: - Trop elevated to 71, patient has been short of breath but without any chest pain or complications. This is likely demand ischemia from general illness, COVID. EKG with ventricular paced rhythm, no ST segment or T wave inversions. - Troponins stable. Demand ischemia. (4) Weakness: Plan: - Bradycardia secondary to diarrhea, COVID-19 infection, multiple comorbidities, will have PT/OT see patient while she is here. - Patient and her son, who she resides with, would like to have home health services arranged upon discharge. (5) Anemia: Plan: - Hgb 8.3, was discharged after UGI bleed with hemoglobin at 8.2 on 08/25. - No signs or symptoms of rebleeding. Monitor on a.m. labs. - Continue on PPI twice daily. (6) DVT prophylaxis: Plan: - Recurrent VTE's with hypercoagulability, as well as current cancer. She is chronically on warfarin 8 mg daily, with 9 mg dosing on Tuesday. - INR today 1.2. No bridge given recent GI bleed. (7) Coronary artery disease: Plan: - Nonobstructive. Continue statin. Baby aspirin stopped on discharge last admission due to GI bleed. (8) S/P TAVR (transcatheter aortic valve replacement): Plan: - Replaced in May. With some pulmonary vascular congestion, no overt edema on CXR. - Obtaining echo as above for elevated troponin. - Ricky type prosthetic valve. (9) (HFpEF) heart failure with preserved ejection fraction: Plan: - Echo 07/16: EF 40-44%, hypokinesis/akinesis in segments of apical, septal, anteroseptal wall. - Continue Lasix 20 mg daily. (10) Sleep apnea: Plan: - CPAP at night with 2 LPM O2. (11) Diabetes mellitus, type 2: Plan: - A1c 5.9% in April. -Sliding scale insulin ordered. (12) Myeloma: Plan: - Diagnosed with multiple myeloma in July 2019. 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 - Patient follows with [facility]/onc Dr. Allen. - Chemo treatment on hold pending recovery from GI bleed, COVID infection. (13) Pancytopenia: Plan: - Secondary to cancer, chemotherapy treatment. - Neutropenic precautions. - Admit hemoglobin stable from discharge hemoglobin. Plan - SCDs, Coumadin for VTE PPx. - DNR/DNI. Admission and Anticipated Discharge Date Admission Date: August 28, 2022 Subjective Doing well today. Had some diarrhea, but overall doing great. Two episodes of diarrhea today, but no other issues. Reports no fevers/chills, chest pain, shortness of breath, abdominal pain, nausea, or vomiting. Physical Exam Constitutional: WD/WN, vitals as above + morbidly obese Eyes: EOM intact bilaterally; no conjunctival abnormality ENMT: external ear and nose normal, oropharynx normal Neck: trachea midline, no thyromegaly normal visual inspection Respiratory: normal respiratory effort, lungs clear to auscultation no respiratory distress Cardiovascular: RRR, no murmur, no edema Gastrointestinal (Abdomen): Inspection/Auscultation: abdomen normal to inspection; abdomen not distended Musculoskeletal: no cyanosis or clubbing, extremities motor strength 5/5 Skin: no rashes, warm and dry Neurologic: moves all extremities and awake Psychiatric: Orientation: alert, oriented to person and cooperative Results & Data Results & Data ([facility]) Vital Signs (Past 12 Hours) Vital Signs Temp Pulse Resp BP Pulse Ox O2 Del Method 08/29/22 14:47 37.3 C 85 20 118/62 94 Room Air 08/29/22 11:06 36.4 C L 78 20 111/69 95 Room Air 08/29/22 07:33 Room Air 08/29/22 07:26 36.6 C 93 H 20 130/67 94 Room Air PG Care Time/CCT Total # of Minutes Spent Total Time Spent with Patient: Total time spent is greater than 50% in coordination of care (as documented) at patient's floor/unit and/or counseling patient: Coding Level of Care Code 66938 Subseq Hosp Care Lvl 2 Diagnoses COVID-19 U07.1 Diarrhea R19.7 Elevated troponin R77.8 Weakness R53.1 Anemia D64.9 DVT prophylaxis Z29.9 Coronary artery disease I25.10 S/P TAVR (transcatheter aortic valve replacement) Z95.2 (HFpEF) heart failure with preserved ejection fraction I50.33 Heart failure chronicity: acute on chronic Sleep apnea G47.30 Diabetes mellitus, type 2 E11.9 Diabetes mellitus computer terminal operator insulin use: without half-way use Diabetes mellitus complication status: without complication Myeloma C90.00 Multiple myeloma remission status: unspecified Pancytopenia D61.818 (1) (HFpEF) heart failure with preserved ejection fraction Heart failure chronicity: acute on chronic Qualified Code(s): I50.33 - Acute on chronic diastolic (congestive) heart failure (2) Diabetes mellitus, type 2 Diabetes mellitus half-way insulin use: without computer terminal operator use Diabetes mellitus complication status: without complication Qualified Code(s): E11.9 - Type 2 diabetes mellitus without complications (3) Myeloma Multiple myeloma remission status: unspecified Qualified Code(s): C90.00 - Multiple myeloma not having achieved remission
[2022-08-29] MEDS: WARFARIN SOD 4 MG TAB PO SCH (17:24)
[2022-08-29] MEDS: oxyCODONE HCL IR 5 MG TAB (IMMEDIATE RELEASE) PO PRN (20:53)
[2022-08-29] MEDS: ACETAMINOPHEN 325 MG TAB PO PRN (20:53)
[2022-08-30 06:34] LABS: Hematocrit (blood only) 25.1 % (34.1-44.9); Hemoglobin 8.2 g/dl (12.0-16.0); Mean Corpuscular Hemoglobin 32.3 pg (25.0-34.0); Mean Corpuscular Hgb Conc 32.7 g/dL (32.0-36.0); Mean Corpuscular Volume 98.8 fL (80.0-100.0); Mean Platelet Volume 9.7 fL (9.4-12.3); Platelet Count 179 K/uL (130-400); RDW Coefficient of Variation 17.4 % (11.5-14.5); Red Blood Count 2.54 M/uL (3.93-5.22); White Blood Count 0.83 K/ul (4.8-10.8)
[2022-08-30 07:07] LABS: Ovalocytes 1+; Poikilocytosis Present; Polychromasia 1+
[2022-08-30 07:18] LABS: Basophils # (auto) 0.01 K/uL (0-0.2); Basophils % (auto) 1.2 %; Eosinophils # (auto) 0.01 K/uL (0-0.50); Eosinophils % (auto) 1.2 %; Immature Granulocytes # (auto) 0.01 K/uL (0.00-0.02); Immature Granulocytes % (auto) 1.2 %; Lymphocytes # (auto) 0.27 K/uL (1.2-3.4); Lymphocytes % (auto) 32.5 %; Monocytes # (auto) 0.22 K/uL (0.24-0.82); Monocytes % (auto) 26.5 %; Neutrophils # (auto) 0.31 K/uL (1.4-6.5); Neutrophils % (auto) 37.4 %
[2022-08-30] MEDS: INSULIN ASPART PER UNIT SC SCH ×4 (08:56→20:43)
[2022-08-30] MEDS: POT PHOSPHATE MONOBASIC W/ SOD TAB PO SCH ×2 (09:08→20:24)
[2022-08-30] MEDS: CYANOCOBALAMIN (B-12) 500 MCG TABLET PO SCH (09:08)
[2022-08-30] MEDS: ATORVASTATIN 10 MG TAB PO SCH (09:08)
[2022-08-30] MEDS: PSYLLIUM or GUAR GUM FIBER POWDER PACKET PO SCH ×2 (09:09→20:22)
[2022-08-30] MEDS: CALCIUM CARBONATE 1250MG TAB PO SCH (09:09)
[2022-08-30] MEDS: FUROSEMIDE 20 MG TAB PO SCH (09:09)
[2022-08-30] MEDS: ASCORBIC ACID 500 MG TAB PO SCH (09:09)
[2022-08-30] MEDS: CHOLECALCIFEROL 1,000 UNITS 25 MCG TAB PO SCH (09:10)
[2022-08-30] MEDS: ACYCLOVIR 400 MG TAB PO SCH ×2 (09:10→20:23)
[2022-08-30] MEDS: POTASSIUM CHLORIDE 10 MEQ TABCR PO SCH ×2 (09:10→20:23)
[2022-08-30] MEDS: VENLAFAXINE HCL XR 75 MG CAPXR PO SCH (09:10)
[2022-08-30] MEDS: CALCITONIN SALMON NA 200 IU/AC 3.7 ML BTL SCH (09:11)
[2022-08-30] MEDS: PANTOprazole 40 MG TAB PO SCH ×2 (09:11→20:23)
[2022-08-30] MEDS: ACETAMINOPHEN 325 MG TAB PO PRN (09:19)
[2022-08-30] MEDS: oxyCODONE HCL IR 5 MG TAB (IMMEDIATE RELEASE) PO PRN ×2 (12:13→20:26)
--- NOTE | 2022-08-30 12:58 | Hospitalist Progress Note ---
Date of Service August 30, 2022 Assessment & Plan (1) COVID-19: Plan: - Diagnosed in hospital 08/24 while hospitalized. Currently with mild dyspnea on exertion , non- productive cough, generalized weakness and diarrhea. -She is not requiring supplemental oxygen. Defer on steroids and remdesivir - Supportive therapy. (2) Diarrhea: Plan: Chronic. Metamucil twice daily scheduled dosing may help. She was counseled to avoid milk products. Outpatient GI follow-up. Stool studies negative to date. Outpatient GI follow-up if patient desires (3) Elevated troponin: Plan: - Trop elevated to 71, patient has been short of breath but without any chest pain or complications. This is likely demand ischemia from general illness, C OVID. EKG with ventricular paced rhythm, no ST segment or T wave inversions. - Troponins stable. Demand ischemia. No wall motion abnormality seen on cardiac echo. (4) Weakness: Plan: - Due to diarrhea, COVID-19 infection, multiple comorbidities. Continue PT/OT. (5) Anemia: Plan: was discharged after UGI bleed with hemoglobin at 8.2 on 08/25. No signs or symptoms of rebleeding. Currently stable. Serial labs . Continue on PPI twice daily. (6) DVT prophylaxis: Plan: Recurrent VTE's with hypercoagulability, as well as current cancer. She is chronically on warfarin 8 mg daily, with 9 mg dosing on Tuesday. Serial INR labs. (7) Coronary artery disease: Plan: Nonobstructive. Continue statin and 81mg aspirin (8) S/P TAVR (transcatheter aortic valve replacement): Plan: Replaced in May. Normal function on cardiac echo. (9) (HFpEF) heart failure with preserved ejection fraction: Plan: Current cardiac echo reveals severe left ventricular hypertrophy with preserved ejection fraction and no regional wall motion abnormalities. Currently stable. Continue current medical management. (10) Sleep apnea: Plan: Wears CPAP at night with 2 LPM O2. (11) Diabetes mellitus, type 2: Plan: - A1c 5.9% in April . ADA diet. Sliding scale coverage. (12) Myeloma: Plan: Diagnosed with multiple myeloma in July 2019. 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 Patient follows with [facility] heme/onc Dr. Allen. Chemo treatment on hold pending recovery from GI bleed, COVID infection. (13) Pancytopenia: Plan: Secondary to cancer, chemotherapy treatment. Neutropenic precautions. Serial labs. Plan DVT prophylaxis: SCDs, Coumadin for VTE PPx. CODE STATUS: DNR/DNI. Disposition: To be determined Admission and Anticipated Discharge Date Admission Date: August 28, 2022 Subjective Alert and oriented. Pleasant. No acute distress. Cardiac echo done yesterday, August 29, reveals severe left ventricular hypertrophy with normal ejection fraction, no regional wall motion abnormalities, normally functioning TAVR, and moderate mitral regurgitation. She is 94% saturation on room air. She remains pancytopenic which is chronic. Her son is considering hospice care. We will consult palliative care for assessment. Metamucil increased to twice daily scheduled dosing to help with her acute on chronic diarrhea. Review of Systems Review of Systems: Constitutional-no fever or chills ENT-no blurred vision, no double vision, no epistaxis, no sore throat Respiratory-no cough, no wheezing, no shortness of breath Cardiac-no palpitations, no chest pain, no syncope GI-no nausea, vomiting, melena, hematochezia. Chronic diarrhea -no urinary retention, no urinary incontinence, no dysuria, no hematuria Musculoskeletal-no joint pain, no muscle tenderness Skin-no bruising, no rashes, no pruritus Neuro-no isolated weakness, no paresthesia, no weakness Psych-no depression, no anxiety Physical Exam Physical Exam: General-alert and oriented x3, no fevers, no chills HEENT-head atraumatic and normocephalic, pupils equal and reactive to light, extraocular muscles intact Neck-no lymphadenopathy or thyromegaly, trachea midline Chest-clear to auscultation percussion. No rales wheezing or rhonchi Cardiac-regular rate and rhythm, normal S1 and S2, no murmurs Abdomen-normal bowel sounds, nontender, no hepatosplenomegaly Extremities-no cyanosis, clubbing, or edema Neuro-cranial nerves II through XII intact, motor and sensory function within normal limits, strength symmetrical , no focal deficits Psych-normal affect, normal mood Results & Data Results & Data ([facility]) Vital Signs (Past 12 Hours) Vital Signs Temp Pulse Pulse Resp BP Pulse Ox O2 Del Method 08/30/22 11:37 36.6 C 84 18 114/71 94 Room Air 08/30/22 08:00 Room Air 08/30/22 07:56 36.6 C 76 18 122/76 94 Room Air 08/30/22 06:14 71 08/30/22 03:46 36.8 C 71 18 137/76 100 CPAP 08/30/22 03:32 71 22 96 O2 Flow Rate 08/30/22 11:37 08/30/22 08:00 08/30/22 07:56 08/30/22 06:14 08/30/22 03:46 08/30/22 03:32 2 Laboratory Results 08/30/22 05:35 08/29/22 07:12 PG Care Time/CCT Total # of Minutes Spent Total Time Spent with Patient: Total time spent is greater than 50% in coordination of care (as documented) at patient's floor/unit and/or counseling patient: Coding Level of Care Code 48213 Subseq Hosp Care Lvl 3 Diagnoses COVID-19 U07.1 Diarrhea R19.7 Elevated troponin R77.8 Weakness R53.1 Anemia D64.9 DVT prophylaxis Z29.9 Coronary artery disease I25.10 S/P TAVR (transcatheter aortic valve replacement) Z95.2 (HFpEF) heart failure with preserved ejection fraction I50.33 Heart failure chronicity: acute on chronic Sleep apnea G47.30 Diabetes mellitus, type 2 E11.9 Diabetes mellitus retirement insulin use: without retirement use Diabetes mellitus complication status: without complication Myeloma C90.00 Multiple myeloma remission status: unspecified Pancytopenia D61.818 (1) (HFpEF) heart failure with preserved ejection fraction Heart failure chronicity: acute on chronic Qualified Code(s): I50.33 - Acute on chronic diastolic (congestive) heart failure (2) Diabetes mellitus, type 2 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
--- NOTE | 2022-08-30 15:38 | Palliative Care Consultation ---
Date of Consultation August 30, 2022 Assessment & Plan (1) Weakness: Generalized weakness requiring assistance with ADLs. She is interested in having physical therapy at home after discharge. She recognizes that she is not able to live in her home independently at this time but is hopeful that will happen. She is also hopeful that she will be able to resume driving. (2) Left hip pain: Relieved with prn oxycodone though she has been reluctant to take it due to concern about "getting hooked". We talked about low risk of this when using medications as prescribed for intended purpose. We also discussed potential constipation with opioids which may help with her chronic diarrhea. (3) Palliative care encounter: I talked with Mrs Roy about her understanding of her illness. She tells me that she knows that her cancer is not curable. She trusts her oncologist and tells me that she would do whatever he suggested to do. She would be willing to try additional treatment if her oncologist felt that there was potential benefit to that. I asked her what she would think if he told her that she wasn't benefitting from the medication. She told me that she would stop treatment and just want to be comfortable. Given her wish to have physical therapy and continue cancer treatment, she would not be eligible for hospice care. She asked about resources available for support at home and has been working with case management on this. We discussed option for home care agency that also provides hospice to facilitate transition to hospice of needed. She tells me that being able to drive and walk are important quality of life issues for her. "I wouldn't want to be wheelchair bound". She does have limits to the care that she would want. She is DNR and quite certain that she would not want intubation. She tells me that she would not want dialysis or a feeding tube either. She has designated her daughter, Meghana Bo and her son, Sudhir Roy as her surrogate decision makers but has discussed her wishes with all of her children and feels confident that they would all respect her wishes. At her request, I spoke with her son, Herbert, and explained that hospice care would not be consistent with her goals of care at this time and that she would benefit from home care with physical therapy,. History of Present Illness Reason for Consultation: goals of care Requesting Physician: Dr. Walter Attending Physician: Chilo Walter MD History of Present Illness 82 yo lady with history of multiple myeloma and pancytopenia. She is s/p TAVR for severe aortic stenosis and s/p pacemaker placement with nonobstructive CAD and heart block. She has had recurring VTE and is on warfarin. She was hospitalized earlier this month anemia and GI bleeding and found to have Covid 19 during that admission. She lives alone and had been relatively independent with ADLs, including driving prior to that admission. After discharge she went to stay with her son, Herbert. She was readmitted with persistent chronic diarrhea and weakness. She tells me that the diarrhea had been going on prior to her previous admission and is thought to be related to her multiple myeloma treatment. She is likely going to go back and stay with her son after discharge and had asked about hospice care. Allergies Allergy/AdvReac Type Severity Reaction Status Date / Time adhesive tape AdvReac Mild Skin rash Verified 08/10/22 16:12 Home Medications Medication Instructions Recorded Confirmed Type cholecalciferol (vitamin D3) 50 1,000 unit PO QAM 07/31/19 08/28/22 History mcg (2,000 unit) tablet amoxicillin 500 mg capsule 2,000 mg PO ONCE PRN DENTAL 08/01/19 08/28/22 History APPOINTMENTS #4 caps acyclovir 400 mg tablet 400 mg PO BID 11/20/19 08/28/22 History multivitamin 1 tab PO QAM 03/06/21 08/28/22 History acetaminophen 650 mg 650 mg PO DAILY PRN pain 12/31/21 08/28/22 History tablet,extended release ascorbic acid (vitamin C) 500 mg 1,000 mg PO QAM 12/31/21 08/28/22 History tablet calcium carbonate 600 mg calcium 600 mg PO DAILY 12/31/21 08/28/22 History (1,500 mg) tablet (Calcium) cyanocobalamin (vitamin B-12) 500 1,000 mcg PO QAM 12/31/21 08/28/22 History mcg tablet triamcinolone acetonide 0.1 % 1 applic topical BID PRN dermatitis 12/31/21 08/28/22 History topical cream ketotifen fumarate 0.025 % (0.035 1 drp ophthalmic (eye) BID 03/01/22 08/28/22 History %) eye drops ([place]) psyllium husk (with sugar) 3.4 1 ea PO QAM #1 btl 03/06/22 08/28/22 Rx gram oral powder packet (Metamucil (with sugar)) nystatin 100,000 unit/gram topical 1 applic topical DAILY PRN Skin 03/12/22 08/28/22 Rx powder Irritation #60 grams Wheeled Walker #1 ea 05/19/22 08/27/22 Rx atorvastatin 10 mg tablet 10 mg PO QAM 06/09/22 08/28/22 History metformin 500 mg tablet,extended 1,000 mg PO QPM 06/09/22 08/28/22 History release 24 hr warfarin 1 mg tablet 1 mg PO UD 06/09/22 08/28/22 History potassium chloride 20 mEq 10 meq PO BID 07/10/22 08/28/22 History tablet,extended release(part/cryst) calcitonin (salmon) 200 1 spray intranasal (ALT) DAILY 07/11/22 08/28/22 Rx unit/actuation nasal spray #3.7 mL furosemide 40 mg tablet 20 mg PO QAM 07/20/22 08/28/22 History oxycodone 5 mg tablet 5 mg PO Q6H PRN pain #18 tabs 07/20/22 08/28/22 Rx warfarin 4 mg tablet See Rx Instructions .Route 08/03/22 08/28/22 Rx .COMPLEX #180 tabs venlafaxine 75 mg capsule,extended 75 mg PO QAM #30 caps 08/23/22 08/28/22 Rx release 24 hr pantoprazole 40 mg tablet,delayed 40 mg PO BID #60 tabs 08/25/22 08/28/22 Rx release dexamethasone 4 mg tablet 20 mg PO .weekly 08/27/22 08/28/22 History loratadine 10 mg tablet 10 mg PO DAILY PRN Allergic 08/28/22 08/28/22 History Symptoms sodium di- and 1 tab PO BID 08/28/22 08/28/22 History monophosphate-potassium phos monobasic 250 mg tablet (Phospha 250 Neutral) Patient History Medical History (HFpEF) heart failure with preserved ejection fraction Anxiety Aortic stenosis Basal cell carcinoma face Cervical radiculopathy CHF exacerbation Degenerative disc disease Depression Diabetes mellitus, type 2 NIDDM Endometrial intraepithelial neoplasia (EIN) Fracture, humerus Hemorrhoids History of seizure last seizure 1995 Hyperlipidemia Morbid obesity Myeloma Osteoarthritis 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; s/p surgery, radiation, chemo (receiving weekly oral/IV chemo Fridays + dexamethasone 40mg pretreatment prior to chemo) Pneumonia due to 2019 novel coronavirus Positional vertigo Post herpetic neuralgia hx shingles Post-menopausal bleeding Sepsis Sleep apnea CPAP + 2 LPM O2 qhs Urinary leakage Surgical History Aortic valve replaced H/O surgical biopsy Right distal humerus 11/21/18 History of appendectomy History of bilateral carpal tunnel release History of cataract surgery Bilateral History of cholecystectomy History of endometrial biopsy History of knee replacement procedure of left knee History of knee replacement procedure of right knee History of surgery right distal humerus replacement History of tonsillectomy S/P dilation and curettage S/P tooth extraction S/P tubal ligation Family History Mother , 89yo Myocardial infarction Congestive heart failure Father , Pt unsure of details of father's health history;Knows he had facial cancer Malignant neoplasm of oral cavity Sister , May 2019 of copd Diabetes Breast cancer Son Hypertension Grandmother Diabetes Denies family history of Prostate cancer Lung cancer Colorectal cancer Social History Smoking Status: Never smoker Second Hand Exposure: Yes; Hx Alcohol Use: No Hx Substance Use: No Preferred Language: Greek Visual Impairment: No Limitations Hearing Ability: Normal Sulfide Head Operator Required: No Beliefs That Will Affect Care: None marital status: / Current Living Situation: Family Current Living Situation Comment: lives with son and [id number] current occupational status: retired 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 Other Information That Helps Us Care for You: No Feels Safe at Home: Yes Safety Concerns: Feels Safe At This Time Childhood Exposure to Second-Hand Smoke: No caffeine: Yes (1 cup/day) during the past year weight has: remained stable Dental Care, Regularly: No Physical Activity Frequency: Does not Exercise Seatbelt Use: always Sunscreen Use: Yes Assistive Devices: CPAP, Hospital Bed, Oxygen - at Night, Walker and Wheelchair Review of Systems Review of Systems: ESAS Pain 1/3 sore throat, left hip and leg pain Dyspnea 1/3 Nausea 0/3 ANxiety 0/3 Fatigue 1/3 DRowsiness 0/3 PPs 50% Physical Exam Constitutional: no acute distress ENMT: Mouth: oral mucous membranes not dry no exudate Respiratory: normal respiratory effort; no labored breathing using incentive spirometer Cardiovascular: Rate/Rhythm: regular rate and regular rhythm Gastrointestinal (Abdomen): obese, nontender Musculoskeletal: Extremities: extremities normal to inspection Neurologic: Speech / Cognition: normal cognition Results & Data ([facility]) Vital Signs (Past 12 Hours) Vital Signs Temp Pulse Pulse Resp BP Pulse Ox O2 Del Method 08/30/22 11:37 97.9 F 84 18 114/71 94 Room Air 08/30/22 08:00 Room Air 08/30/22 07:56 97.9 F 76 18 122/76 94 Room Air 08/30/22 06:14 71 08/30/22 03:46 98.2 F 71 18 137/76 100 CPAP 08/30/22 03:32 71 22 96 O2 Flow Rate 08/30/22 11:37 08/30/22 08:00 08/30/22 07:56 08/30/22 06:14 08/30/22 03:46 08/30/22 03:32 2 PG Care Time/CCT Total # of Minutes Spent Total Time Spent: 85 Total Time Spent with Patient: Total time spent is greater than 50% in coordination of care (as documented) at patient's floor/unit and/or counseling patient: goals of care, code status, surrogate decision maker, symptom management Coding Level of Care Code 98518 Initial Inpt Care Lvl 3 Diagnoses Weakness R53.1 Left hip pain M25.552 Palliative care encounter Z51.5
[2022-08-30] MEDS: WARFARIN SOD 4 MG TAB PO SCH (17:18)
[2022-08-30] MEDS ORDERED: COUGH DROP (SUGAR FREE) LOZ 24 LOZ/1 BOX BUCCAL ONE (17:24)
[2022-08-31 07:26] LABS: Hematocrit (blood only) 26.3 % (34.1-44.9); Hemoglobin 8.6 g/dl (12.0-16.0); Mean Corpuscular Hemoglobin 32.1 pg (25.0-34.0); Mean Corpuscular Hgb Conc 32.7 g/dL (32.0-36.0); Mean Corpuscular Volume 98.1 fL (80.0-100.0); Mean Platelet Volume 9.8 fL (9.4-12.3); Platelet Count 194 K/uL (130-400); RDW Coefficient of Variation 17.5 % (11.5-14.5); Red Blood Count 2.68 M/uL (3.93-5.22); White Blood Count 1.14 K/ul (4.8-10.8)
[2022-08-31 07:49] LABS: BUN Creatinine Ratio 25.4 (10-20); Calcium 8.2 mg/dl (8.5-10.1); Creatinine Clr Calc Pharmacy 67.8 ml/min; Est GFR (African American) 94.9 ml/min; Est GFR (Non-African American) 81.9 ml/min; Potassium 3.7 mmol/L (3.5-5.1)
[2022-08-31 07:59] LABS: Basophils # (auto) 0.03 K/uL (0-0.2); Basophils % (auto) 2.6 %; Eosinophils # (auto) 0.01 K/uL (0-0.50); Eosinophils % (auto) 0.9 %; Immature Granulocytes # (auto) 0.01 K/uL (0.00-0.02); Immature Granulocytes % (auto) 0.9 %; Lymphocytes # (auto) 0.29 K/uL (1.2-3.4); Lymphocytes % (auto) 25.4 %; Monocytes # (auto) 0.18 K/uL (0.24-0.82); Monocytes % (auto) 15.8 %; Neutrophils # (auto) 0.62 K/uL (1.4-6.5); Neutrophils % (auto) 54.4 %; Ovalocytes 1+; Polychromasia 1+
[2022-08-31] MEDS: oxyCODONE HCL IR 5 MG TAB (IMMEDIATE RELEASE) PO PRN ×2 (07:59→13:55)
[2022-08-31] MEDS: INSULIN ASPART PER UNIT SC SCH ×2 (09:21→12:48)
[2022-08-31] MEDS: CYANOCOBALAMIN (B-12) 500 MCG TABLET PO SCH (09:25)
[2022-08-31] MEDS: VENLAFAXINE HCL XR 75 MG CAPXR PO SCH (09:25)
[2022-08-31] MEDS: PANTOprazole 40 MG TAB PO SCH (09:25)
[2022-08-31] MEDS: POT PHOSPHATE MONOBASIC W/ SOD TAB PO SCH (09:25)
[2022-08-31] MEDS: ACYCLOVIR 400 MG TAB PO SCH (09:26)
[2022-08-31] MEDS: POTASSIUM CHLORIDE 10 MEQ TABCR PO SCH (09:26)
[2022-08-31] MEDS: CALCIUM CARBONATE 1250MG TAB PO SCH (09:27)
[2022-08-31] MEDS: PSYLLIUM or GUAR GUM FIBER POWDER PACKET PO SCH (09:27)
[2022-08-31] MEDS: CHOLECALCIFEROL 1,000 UNITS 25 MCG TAB PO SCH (09:28)
[2022-08-31] MEDS: ASCORBIC ACID 500 MG TAB PO SCH (09:28)
[2022-08-31] MEDS: FUROSEMIDE 20 MG TAB PO SCH (09:28)
[2022-08-31] MEDS: ATORVASTATIN 10 MG TAB PO SCH (09:28)
[2022-08-31] MEDS: CALCITONIN SALMON NA 200 IU/AC 3.7 ML BTL SCH (09:29)
--- NOTE | 2022-08-31 10:38 | Discharge Summary ---
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 She is presenting today with several concerns. She was just discharged on 08/25 after a 5-day hospital stay for anemia secondary to suspected upper GI bleed, requiring 2 units pRBCs. Discharged with hemoglobin 8.2. Of note, she did test positive for COVID-19 infection on 08/24 while in the hospital. Since discharge, she has been living with her son and has felt progressively weak, with some worsened shortness of breath and coughing at home, as well as a large amount of nonbloody, mucousy diarrhea. She reports she is going 5-10 times/day. She has not been having any abdominal pain, nausea, vomiting. She has not had any chest pain or palpitations. Since arrival to the ED, her vital signs have been within normal limits and stable. Her labs are significant for WBC of 1.02 with total absolute neutrophils 0.49. Her troponin was elevated at 71.5. Her calcium and magnesium were mildly low at 8.3 and 1.6 respectively. Hemoglobin is stable since discharge, 8.3. Renal function is at baseline, lactate 1.5, hepatic function stable. Check showed mild pulmonary vascular congestion without overt edema, slightly progressive since discharge. Principal Diagnosis COVID-19, weakness, elevated troponin without acute AL Discharge Exam General-alert and oriented x3, no fevers, no chills. Obese HEENT-head atraumatic and normocephalic, pupils equal and reactive to light, extraocular muscles intact Neck-no lymphadenopathy or thyromegaly, trachea midline Chest-clear to auscultation percussion. No rales wheezing or rhonchi Cardiac-regular rate and rhythm, normal S1 and S2, no murmurs Abdomen-normal bowel sounds, nontender, no hepatosplenomegaly Extremities-no cyanosis, clubbing, or edema Neuro-cranial nerves II through XII intact, motor and sensory function within normal limits, strength symmetrical , no focal deficits Psych-normal affect, normal mood Discharge Data Allergies Allergy/AdvReac Type Severity Reaction Status Date / Time adhesive tape AdvReac Mild Skin rash Verified 08/10/22 16:12 Consultations 08/28/22 18:12 ED Decision to Admit Stat 08/30/22 11:35 Consult Palliative Care Routine Hospital Course (1) COVID-19: Diagnosed in hospital 08/24 while hospitalized. Currently with mild dyspnea on exertion , non- productive cough, generalized weakness and diarrhea. She is not requiring supplemental oxygen. Defer on steroids and remdesivir Supportive therapy. (2) Diarrhea: Chronic. Metamucil twice daily scheduled dosing may help. She was counseled to avoid milk products. Outpatient GI follow-up. Stool studies negative to date. (3) Elevated troponin: - Trop elevated to 71, patient has been short of breath but without any chest pain or complications. This is likely demand ischemia from general illness, COVID. EKG with ventricular paced rhythm, no ST segment or T wave inversions. - Troponins stable. Demand ischemia. No wall motion abnormality seen on cardiac echo. (4) Weakness: - Due to diarrhea, COVID-19 infection, multiple comorbidities. Continue PT/OT. (5) Anemia: was discharged after UGI bleed with hemoglobin at 8.2 on 08/25. No signs or symptoms of rebleeding. Currently stable. Serial labs . Continue on PPI twice daily. (6) DVT prophylaxis: Recurrent VTE's with hypercoagulability, as well as current cancer. She is chronically on warfarin 8 mg daily, with 9 mg dosing on Tuesday. Serial INR labs. (7) Coronary artery disease: Nonobstructive. Continue statin and 81mg aspirin (8) S/P TAVR (transcatheter aortic valve replacement): Replaced in May. Normal function on cardiac echo. (9) (HFpEF) heart failure with preserved ejection fraction: Current cardiac echo reveals severe left ventricular hypertrophy with preserved ejection fraction and no regional wall motion abnormalities. Currently stable. Continue current medical management. (10) Sleep apnea: Wears CPAP at night with 2 LPM O2. (11) Diabetes mellitus, type 2: A1c 5.9% in April . ADA diet. Sliding scale coverage. (12) Myeloma: Diagnosed with multiple myeloma in July 2019. 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 Patient follows with [facility] pina/onc Dr. Allen. Chemo treatment on hold pending recovery from GI bleed, COVID infection. (13) Pancytopenia: Secondary to cancer, chemotherapy treatment. Neutropenic precautions. Serial labs. Plan DVT prophylaxis: SCDs, Coumadin for VTE PPx. CODE STATUS: DNR/DNI. Disposition: Home today with home health services, August 31 Total Time Total Time Spent Total Time Spent (In Minutes): 35 minutes Discharge Plan Discharge Items Patient Disposition: Home - Home Health Services Reason For Visit: WEAKNESS,DIARRHEA Discharge Diagnosis: COVID-19, generalized weakness, elevated troponin without acute AL Activity: Resume your previous activity Non-emergency contact: Primary Care Provider Call non-emergency contact if: you have any medication questions Follow-up/Referrals: Kulwinder Byers MD [Primary Care Provider] - Diet: Carb Consistent or DM2 and Heart Healthy Addtl Attending Provider Instructions: All medications remain the same. Take vitamin C, vitamin D, and zinc daily. Follow-up with primary care provider as scheduled. Take Metamucil twice daily to help with the diarrhea and avoid milk products as much as possible Pending Studies at Discharge: No Stand-Alone Forms: My [facility] [employer], Smoking Cessation Medications and DC Order Prescriptions: New loratadine [Wal-itin] 10 mg Tablet 10 mg PO DAILY PRN (Reason: allergic symptoms) Qty: 7 0RF Continued (DME) Wheeled Walker Misc See Rx Instructions .Route Qty: 1 0RF Rx Instructions: WALKER WITH WHEELS AND SEAT LENGTH OF NEEDS: 99 MONTHS warfarin 4 mg tablet See Rx Instructions .ROUTE .COMPLEX Qty: 180 1RF Protocol: Dose Management Condition: Tuesday Dose/Route: 12 mg Instruction: 3 x 4 mg tablets Condition: Tuesday Dose/Route: 8 mg Instruction: 2 x 4 mg tablets Condition: Tuesday Dose/Route: 8 mg Instruction: 2 x 4 mg tablets Condition: Tuesday Dose/Route: 8 mg Instruction: 2 x 4 mg tablets Condition: Dose/Route: 8 mg Instruction: 2 x 4 mg tablets Condition: Tuesday Dose/Route: 8 mg Instruction: 2 x 4 mg tablets Condition: Tuesday Dose/Route: 8 mg Instruction: 2 x 4 mg tablets Protocol Text: Adjustment Start Date: 07/22/22 INR Value: 3.0 INR Date: 07/21/22 Recheck Date: 07/29/22 Dose Instruction: 8 MG SEE PROTOCOL= 8 MG TAKEN BY MOUTH ON TUE, , , TUE & SAT., THEN 10 MG ON TUE & TUE. Rx Instructions: 8 MG SEE PROTOCOL= 8 MG TAKEN BY MOUTH ON TUE, , TUE, , TUE & SAT., THEN 9 MG ON SUN venlafaxine 75 mg capsule,extended release 24hr 75 mg PO QAM Qty: 30 5RF calcium carbonate [Calcium 600] 600 mg calcium (1,500 mg) tablet 600 mg PO DAILY acetaminophen 650 mg tablet extended release 650 mg PO DAILY PRN (Reason: pain) triamcinolone acetonide 0.1 % cream 1 applic topical BID PRN (Reason: dermatitis) nystatin 100,000 unit/gram powder 1 applic topical DAILY PRN (Reason: Skin Irritation) Qty: 60 1RF oxycodone 5 mg tablet 5 mg PO Q6H PRN (Reason: pain) Qty: 18 0RF dexamethasone 4 mg tablet 20 mg PO .weekly cholecalciferol (vitamin D3) 2,000 unit tablet 1,000 unit PO QAM amoxicillin 500 mg capsule 2,000 mg PO ONCE PRN (Reason: DENTAL APPOINTMENTS) Qty: 4 ascorbic acid (vitamin C) 500 mg tablet 1,000 mg PO QAM cyanocobalamin (vitamin B-12) 500 mcg tablet 1,000 mcg PO QAM acyclovir 400 mg tablet 400 mg PO BID furosemide 40 mg tablet 20 mg PO QAM Rx Instructions: 20MG DAILY, 3 DAYS 40MG multivitamin Tablet 1 tab PO QAM potassium chloride 20 mEq tablet,ER particles/crystals 10 meq PO BID calcitonin (salmon) 200 unit/actuation spray,non-aerosol 1 spray intranasal (ALT) DAILY Qty: 3.7 0RF Rx Instructions: for 4 weeks. ketotifen fumarate [Alaway] 0.025 % (0.035 %) Drops 1 drp OPHTHALMIC (EYE) BID atorvastatin 10 mg tablet 10 mg PO QAM metformin 500 mg tablet extended release 24 hr 1,000 mg PO QPM warfarin 1 mg tablet 1 mg PO UD Protocol: Dose Management Condition: Tuesday Dose/Route: 12 mg Instruction: 3 x 4 mg tablets Condition: Tuesday Dose/Route: 8 mg Instruction: 2 x 4 mg tablets Condition: Tuesday Dose/Route: 8 mg Instruction: 2 x 4 mg tablets Condition: Tuesday Dose/Route: 8 mg Instruction: 2 x 4 mg tablets Condition: Dose/Route: 8 mg Instruction: 2 x 4 mg tablets Condition: Tuesday Dose/Route: 8 mg Instruction: 2 x 4 mg tablets Condition: Tuesday Dose/Route: 8 mg Instruction: 2 x 4 mg tablets Protocol Text: Adjustment Start Date: 07/22/22 INR Value: 3.0 INR Date: 07/21/22 Recheck Date: 07/29/22 Rx Instructions: DIRECTED PER INR currently use with 8 mg to= 9mg on sundays pantoprazole 40 mg tablet,delayed release (DR/EC) 40 mg PO BID Qty: 60 0RF Phospha 250 Neutral 250 mg tablet 1 tab PO BID loratadine 10 mg tablet 10 mg PO DAILY PRN (Reason: Allergic Symptoms) Rx Instructions: TAKE 1 TABLET BY MOUTH DAILY NEEDED FOR ALLERGY SYMPTOMS Changed Metamucil (with sugar) 3.4 gram Powder In Packet 1 ea PO BID Qty: 1 0RF Discharge Orders: Discharge Order (Routine); Ordered 08/31/22 Ordered By: Chilo Walter Admission Data Admit Date/Time: 08/28/22 18:23 Attending Provider: Chilo Walter Admit Provider: Kulwinder Magallanes Primary Care Provider: Kulwinder Byers Other Providers: Kulwinder Magallanes ; Tayler Avila ; [facility],[place], Located Within [facility] Coding Level of Care Code D/C DAY MANAGEMENT >30 MINS Diagnoses COVID-19 U07.1 Diarrhea R19.7 Elevated troponin R77.8 Weakness R53.1 Anemia D64.9 DVT prophylaxis Z29.9 Coronary artery disease I25.10 S/P TAVR (transcatheter aortic valve replacement) Z95.2 (HFpEF) heart failure with preserved ejection fraction I50.33 Heart failure chronicity: acute on chronic Sleep apnea G47.30 Diabetes mellitus, type 2 E11.9 Diabetes mellitus half-way insulin use: without half-way use Diabetes mellitus complication status: without complication Myeloma C90.00 Multiple myeloma remission status: unspecified Pancytopenia D61.818
[2022-08-31 11:14] LABS: INR 1.7 (0.9-1.1); Prothrombin Time 17.5 Seconds (9.0-12.0)
[2022-08-31 11:31] VITALS: BP 119/72; PULSE 87; TEMP 97.9; O2SAT 93
[2022-08-31] MEDS: ACETAMINOPHEN 325 MG TAB PO PRN (13:54)
== END 2022-08-31 14:10 | disposition home health service (06) | DRG 177 ==
LOC: ED 16:00 → 2S 18:23 → SUATTDRO 18:23 → 2S 20:24
DX: I50.32 Chronic diastolic (congestive) heart failure; E66.01 Morbid (severe) obesity due to excess calories; Z68.41 Body mass index [BMI] 40.0-44.9, adult; I25.10 Atherosclerotic heart disease of native coronary artery without angina pectoris; E83.42 Hypomagnesemia; I24.8 Other forms of acute ischemic heart disease; U07.1 COVID-19; Z96.653 Presence of artificial knee joint, bilateral; Z66 Do not resuscitate; R19.7 Diarrhea, unspecified; E11.9 Type 2 diabetes mellitus without complications; Z95.2 Presence of prosthetic heart valve; Z79.01 Long term (current) use of anticoagulants; D61.810 Antineoplastic chemotherapy induced pancytopenia; Z83.3 Family history of diabetes mellitus; C90.00 Multiple myeloma not having achieved remission; I44.2 Atrioventricular block, complete; K21.9 Gastro-esophageal reflux disease without esophagitis; Z95.0 Presence of cardiac pacemaker; I50.30 Unspecified diastolic (congestive) heart failure

== ENCOUNTER 2024-01-15 19:43 | Observation (INO) ==
--- OUTSIDE RECORDS SUMMARY | 2024-01-15 19:51 | External Medical Summary ---
Author Name Unknown Address Unknown Organization K01:[facility] [place] [address] [place] [address] Laboratory Report Ordering Provider Test Date Status WOOD CANTU 01/12/2024 15:15:00 Final Observation Date Value Abnormality Reference (Units ) Status WBC, Total 01/12/2024 15:15:00 3.77 Below low normal 4.00-10.80 (K/uL) Final RBC 01/12/2024 15:15:00 3.73 3.85-5.15 (M/uL) Final Hemoglobin 01/12/2024 15:15:00 11.8 Below low normal 12.0-15.3 (g/dL) Final HCT 01/12/2024 15:15:00 36.1 36.0-45.2 (%) Final MCV 01/12/2024 15:15:00 96.8 81.5-97.5 (fL) Final MCH 01/12/2024 15:15:00 31.6 27.0-34.0 (pg) Final MCHC 01/12/2024 15:15:00 32.7 32.0-36.0 (g/dL) Final RDW 01/12/2024 15:15:00 18.0 11.5-15.5 (%) Final Platelets 01/12/2024 15:15:00 96 Below low normal 140-400 (K/uL) Final MPV 01/12/2024 15:15:00 12.3 6.6-11.1 (fL) Final Nucleated erythrocytes/100 leukocytes [Ratio] in Blood by Automated count 01/12/2024 15:15:00 0 <=0 (/100 WBCs) Final Performing Location [facility] - [facility] [address] [place] [address]
--- OUTSIDE RECORDS SUMMARY | 2024-01-15 19:51 | External Medical Summary | Summary of Care ---
Author Name Unknown Organization [facility] Address [address] [place] [address] Phone [phone] Care Team Providers Care Insurance Adviser Name Role Phone Kulwinder Byers MD Primary Care Provider Encounter Details Date Type Department Care Team (Late st Contact Info) Description 01/05/2024 Telephone Radiology, [facility] [address] [place] [address] Dustin Velásquez MD [address] [place] [address] Allergies Active Allergy Reactions Criticality Noted Date Comments Adhesive Tape 05/28/2003 documented as of this encounter (statuses as of 01/06/2024) Medications Medication Sig Dispensed Refills Start Date End Date Status WARFARIN SODIUM 10 MG PO TABS Take by mouth. Tuesday and Tuesday 10mg. Rest of the week 8mg. 0 Active LORATADINE 10 MG PO TABS 1 tab in the am 0 Active Multiple Vitamins-Minerals (MULTIVITAMIN ADULT) TABS Take by mouth. 0 Active Cholecalciferol (VITAMIN D) 1000 units Tablet Take 1 Tablet by mouth in the morning. 0 Active CYANOCOBALAMIN (VITAMIN B-12) 100 MCG Tablet Take 1 Tablet by mouth in the morning. 0 Active vitamin c (ASCORBIC ACID) 500 MG Tablet Take 1 Tablet by mouth in the morning. 0 Active acetaminophen (TYLENOL) 325 MG Tablet Take 3 Tabs by mouth 4 times a day. 30 Tab 0 12/25/2018 Active nystatin (NYSTOP) 915088 UNIT/GM powder Apply topically to affected area 2 times a day. Apply to abd. Skin folds 15 g 0 12/25/2018 Active atorvaSTATin (LIPITOR) 10 MG Tablet daily. 0 01/24/2019 Active Steel Rolling WalkerIndications:M ultiple myeloma not having achieved remission (HCC),Gait disturbance Use as directed . Rollator walker 1 Each 0 05/13/2022 Active Prochlorperazine Maleate 10 MG Oral Tablet (Compazine)Indicati ons:Multiple myeloma not having achieved remission (HCC) Take by mouth 1 Tablet every 6 hours as needed for Nausea. 30 Tablet 1 08/06/2022 Active Additional Information Patient not taking.Reported on 12/28/2023 Pantoprazole Sodium 40 MG Oral Tablet Delayed Release (Protonix) Take 1 Tablet by mouth daily first thing in the morning. (Confirmed with PCP 10/12/22) 0 08/25/2022 Active Calcium 600-200 MG-UNIT Oral Tablet Take by mouth . 0 Active Acyclovir 400 MG Oral Tablet (Zovirax)Indication s:Multiple myeloma not having achieved remission (HCC) Take 1 Tablet (400 mg) by mouth in the morning and 1 Tablet (400 mg) before bedtime. 180 Tablet 3 09/29/2022 Active Xgeva 120 MG/1.7ML Subcutaneous Solution (Denosumab) 120 mg. 0 08/21/2020 Active Loperamide HCl 2 MG Oral Capsule (Imodium) Take 1 Capsule by mouth 4 times a day as needed for Diarrhea. 0 Active Lidocaine-Prilocain e 2.5-2.5 % External Cream (Emla)Indications:M ultiple myeloma not having achieved remission (HCC) APPLY TO SKIN OVER MEDIPORT & COVER 1HR PRIOR TO ACCESSING. 30 g 1 01/03/2023 Active Aspirin Low Dose 81 MG Oral Tablet Chewable (aspirin)Indication s:S/P TAVR (transcatheter aortic valve replacement),Hypoka lemia TAKE 1 TABLET BY MOUTH EVERY DAY IN THE MORNING 90 Tablet 3 05/24/2023 Active Furosemide 20 MG Oral Tablet (Lasix)Indications: S/P TAVR (transcatheter aortic valve replacement),Hypoka lemia TAKE 1 TABLET BY MOUTH EVERY DAY IN THE MORNING 90 Tablet 3 08/01/2023 Active Venlafaxine HCl 75 MG Oral Tablet (Effexor) Take 1 Tablet by mouth in the morning. In the am.. 90 Tablet 3 08/10/2023 Active Phospha 250 Neutral 155-852-130 MG Oral TabletIndications:M ultiple myeloma not having achieved remission (HCC),Hypophosphate stefany Take 1 Tablet by mouth in the morning and 1 Tablet before bedtime. 180 Tablet 1 10/19/2023 Active Potassium Chloride ER 10 MEQ Oral Tablet Extended ReleaseIndications: Multiple myeloma not having achieved remission (HCC),Hypokalemia TAKE BY MOUTH 1 TABLET IN THE MORNING AND 1 TABLET IN THE EVENING BEFORE BEDTIME. 180 Tablet 0 10/21/2023 Active dexAMETHasone 4 MG Oral Tablet (Decadron)Indicatio ns:Multiple myeloma not having achieved remission (HCC) Take 20mg once a week 60 Tablet 1 10/21/2023 Active oxyCODONE HCl 5 MG Oral Tablet (Oxy IR)Indications:Mult iple myeloma not having achieved remission (HCC),Cancer related pain Take 1 Tablet by mouth every 6 hours as needed for Pain, Breakthrough. 60 Tablet 0 12/23/2023 Active Albuterol Sulfate HFA 108 (90 Base) MCG/ACT Inhalation Aerosol Solution Inhale 2 Puffs by mouth every 6 hours as needed for Shortness of Breath. 0 10/03/2023 Active documented as of this encounter (statuses as of 01/06/2024) Active Problems Problem Noted Date Diagnosed Date Encounter for adjustment and management of vascular access device 12/09/2023 Hypogammaglobulinemia 10/04/2023 Encounter for central line care 03/04/2023 S/P TAVR (transcatheter aortic valve replacement ) 05/27/2022 Iron deficiency anemia 05/13/2022 Endometrial intraepithelial neoplasia (EIN) 02/2020 Overview: 09/24/2019: Hysteroscopy with dilation and curettage by Dr. Marcela Crenshaw. Pathology results consistent with at least endometrial intraepithelial neoplasia. 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 Aortic valve stenosis 2021 documented as of this encounter (statuses as of 01/06/2024) Social History Tobacco Use Types Packs/Day Years Used Date Smoking Tobacco: Never Smokeless Tobacco: Never Alcohol Use Standard Drinks/Week Comments No 0 (1 standard drink = 0.6 oz pur e alcohol) occassional Sex and Gender Information Value Date Recorded Sex Assigned at Not on file Gender Identity Not on file Sexual Orientation Not on file Job Start Date Occupation Industry Not on file Not on file Not on file documented as of this encounter Functional Status Functional Status Response Date of Assess ment Are you deaf or do you have serious difficulty h earing? No 05/27/2022 Are you blind or do you have serious difficulty seeing, even when wearing glasses? No 05/27/2022 Do you have serious difficul ty walking or climbing stairs? (5 years old or older) No 05/27/2022 Do you have difficulty dress ing or bathing? (5 years old or older) No 05/27/2022 Because of a physical, menta l, or emotional condition, do you have difficulty doing errands alone such as visiting a doctor s office or shopping? (15 years old or older) No 05/27/20 Cognitive Status Response Date of Assessm ent Because of a physical, menta l, or emotional condition, do you have serious difficulty concentrating, remembering, or making decisions? (5 years old or older) No 05/27/2022 documented as of this encounter Plan of Treatment Upcoming Encounters Date Type Department Care Team (Late st Contact Info) Description 01/06/2024 11:45 AM EST Hem/Onc Treatment Hematology/Oncology Treatment, [place] [address] [place] [address] Ritu, Chair [address] Hem [address] [place] [address] 03/12/2024 3:00 PM EDT Office Visit Hematology/Oncology [facility] [place] [address] [place] [address] Mariana Florez CRNP [address] [place] [id number] Health Maintenance Due Date Last Done Comments DXA Scan 1940 COVID-19 Vaccine (#1) 1945 Depression Screening 1952 Diabetic Eye Exam 1958 Diabetic Foot Exam 1958 DTaP,Tdap,and Td Vaccines (1 - Tdap) 1959 Zoster Vaccines (1 of 2) 1959 Albumin/Creatinine Ratio 12/11/2021 12/11/2020 Influenza Vaccine (FLU shot) (#1) 2023 HbA1c 04/19/2024 10/19/2023, 11/15, 06/13/2020, Additional history exists GFR 01/05/2025 01/05/2024, 12/15, 12/22/2023, Additional history exists Pneumococcal Vaccine: 65+ Years Completed 02/18/2017, 01/12/2010 GARDASIL-HPV IMMUNIZATION SERIES Aged Out No longer eligible based on patient's age to complete this topic Hepatitis B Aged Out No longer eligi ble based on patient's age to complete this topic MENINGOCOCCAL (MENACTRA/MENVEO) Aged Out No longer eligible based on patient's age to complete this topic documented as of this encounter Medical Devices Implanted Type Area Thermostat Mechanic Device Identifier Shelf Expiration Date Model / Serial / Lot Screw Elbow Humeral Total - [id number] Implanted:Qty: 1 on 12/23/2018 by Gautam Jasso [place] [facility] Upper Arm [employer] 09/13/2027 [id number] / / [id number] Deisi Nexel Total Elbow Implanted:Qty: 1 on 12/23/2018 by Gautam Jasso [place] [facility]: Upper Arm 04/13/[id number] / / [id number] Cement Antibiotic Bone - [id number] Implanted:Qty: 1 on 12/23/2018 by Gautam Jasso MD [place] [facility] [place]: Upper Arm RENY : ORTHOPAEDICS 05/13/2020 [id number] / / [id number] Cement Antibiotic Bone - [id number] Implanted:Qty: 1 on 12/23/2018 by Gautam Jasso [place] [facility] [place]: Upper Arm RENY : ORTHOPAEDICS 05/13/2020 [id number] / / [id number] Stem Compr Srs Mod [id number] - [id number] Implanted:Qty: 1 on 12/23/2018 by Gautam Jasso MD [place] [facility] [place]: Upper Arm BIOMET : TRAUMA 01/28/2027 [id number] / / [id number] Deisi Nexel Total Elbow Ulnar Component Implanted:Qty: 1 on 12/23/2018 by Gautam Jasso MD [place] [facility] [place]: Upper Arm 07/14/[id number] -07 / / [id number] Comprehensive Srs/Nexel Distal Body Implanted:Qty: 1 on 12/23/2018 by Gautam Jasso MD [place] [facility] [place]: Upper Arm 03/03/2028 [id number] / / [id number] Valve Ricky 3 Ultra 26mm - [id number] Implanted:Qty: 1 on 05/27/2022 by Jesús Weber MD at [facility] [employer] [id number] 03/17/2023 [id number] / / Port Implant W/8f Poly Cath - [id number] Implanted:Qty: 1 on 12/29/2022 by Sudhir Lovett DO at OR [facility] Right: Chest CR BARD : PERIPHERAL VASCULAR [id number] 02/12/2024 [id number] / / [id number] documented as of this encounter Advance Directives Documents on File Type Date Recorded Patient Dental Ceramist Assistant Expl anation Power of Timber Management Assistant 12/12/2018 8:46 AM Vipin viveros Power of Timber Management Assistant Power of Timber Management Assistant 12/12/2018 8:45 AM Zuleyma ferguson Power of Timber Management Assistant Latest Code Status on File Code Status Date Activated Date Inactivated Comments Full Code 05/27/2022 2:52 PM 05/28/2022 7:52 PM This order reflects the patients wishes and were consensually agreed upon. Code Status History Code Status Date Activated Date Inactivated Comments No Code 12/21/2018 2:01 PM 12/25/2018 6:34 PM This o rder reflects the patients wishes and were consensually agreed upon. She requests to be a no code with the exception of during the surgery she is agreeable to a full code. Question Answer Comments Discussion of Advance Directives occurred with: Patient/Family Does the patient have a Living Will? Yes, not currently available Does the patient have Health Care Power of Timber Management Assistant? Yes, not currently available Full Code 11/21/2018 8:53 AM 11/21/2018 2:27 PM This or bull reflects the patients wishes and were consensually agreed upon. Care Teams Insurance Adviser Relationship Specialty Start Date End Date Kulwinder Byers MD [address] [place] [address] PCP - General 06/28/03 documented as of this encounter
--- OUTSIDE RECORDS SUMMARY | 2024-01-15 19:51 | External Medical Summary | Summary of Care ---
Author Name Unknown Organization [facility] Address [address] [facility] [place] [address] Phone [phone] Care Team Providers Care Immigration Associate Name Role Phone Kulwinder Byers MD Primary Care Provider Reason for Visit * Reason Comments Chemotherapy Cytoxan * Episode Based Medications (Routine) - Authorized Specialty Diagnoses / Procedures Referred By Contac t Referred To Contact Diagnoses Multiple myeloma not having achieved remission (HCC) Procedures AL DARATUMUMAB, HYALURONIDASE AL CYCLOPHOSPHAMIDE 100 MG INJ Jorge Allen MD [address] [place] [address] Anc Hem/Onc Ward Chaney DEPT CLOSED - 09/27/23 200 [facility] [place] [address] Referral ID Status Reason Start Date Expiration Date V isits Requested Visits Authorized [id number] Authorized 07/23/2022 11/13/2099 999 99 Encounter Details Date Type Department Care Team (Latest Contact Info) Description 01/13/2024 2:15 PM EST Hem/Onc Treatment Hematology/Oncology Treatment, [place] [address] [place] [address] Ritu, Chair 5 Hem Onc Scen[address] [place] [address] Multiple myeloma not having achieved remission (HCC)* Allergies Active Allergy Reactions Criticality Noted Date Comments Adhesive Tape 05/28/2003 documented as of this encounter (statuses as of 01/13/2024) Medications Medication Sig Dispensed Refills Start Date [...] 30 Tab 0 12/25/2018 Active nystatin (NYSTOP) 482390 UNIT/GM powder Apply topically to affected area [...] as of this encounter (statuses as of 01/13/2024) Active Problems Problem Noted Date Diagnosed Date [...] as of this encounter (statuses as of 01/13/2024) Resolved Problems Problem Noted Date Diagnosed Date 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 Aortic valve stenosis 2021 documented as of this encounter (statuses as of 01/13/2024) Social History Tobacco Use Types Packs/Day Years [...] on file documented as of this encounter Last Filed Vital Signs Vital Sign Reading Time Taken Comments Blood Pressure 129/80 01/13/2024 2:47 PM EST Pulse 61 01/13/2024 2:47 PM EST Temperature 36.6 C (97.9 F) 01/13/2024 2:47 PM ES T Respiratory Rate 16 01/13/2024 2:47 PM EST Oxygen Saturation 93% 01/13/2024 2:47 PM EST Inhaled Oxygen Concentration - - Weight - - Height - - Body Mass Index - - documented in this encounter Functional Status Functional Status Response [...] No 05/27/2022 documented as of this encounter Nursing Notes * Merrick Gross RN - 01/13/2024 3:35 PM EST Pt infusion completed, pt denies any symptoms at this time. VAD flushed with NSS/Heparin per orders, no blood return noted, pt denies any symptoms during the flush. Pt left treatment room in wheelchair in stable condition. Goals: Pt will remain free from injury. Possible barriers to meeting goals: IV line, chemotherapy Stability of the patient: Moderately stable - low risk of patient condition declining or worsening Summary regarding today's goals: Met: Pt remained free from injury. * Merrick Gross RN - 01/13/2024 2:47 PM EST Chair 7. Dr. Allen reviewed patients labs, ok to treat with current Plt and ANC counts. VAD accessed and flushed with 20mL NSS. No blood return noted, pt denies any symptoms and no swelling noted. Fluids infusing per orders. Safety and Risk for Injury Patient will remain free from injury. Ensure appropriate safety devices are available. Provide and maintain safe environment. Chemotherapy/Immunotherapy agents: Cytotoxan Consent for chemotherapy drug treatment complete, dated, and signed? yes, date - 11/11/22 Treatment lab parameters met? Yes Has treatment weight changed > than 10%? No Treatment preauthorized? Yes VITALS Filed Vitals: 01/13/24 1447 BP: 129/80 Pulse: 61 Resp: 16 Temp: 36.6 C (97.9 F) SpO2: 93% Urine protein: N/A Patient education completed for treatment? Yes Blood transfusion consent signed and complete? NA Return appointment scheduled? Yes Patient had provider visit today? No - If no provider visit must complete Pretreatment Assessment Functional Status: Functional status at today's visit: Ambulatory and capable of all selfcare but unable to carry out any work activities. Up and about more than 50% of waking hours The drug name, dose, infusion volume, rate and route of administration, expiration date and time, appearance and physical integrity of the drug and rate set on the pump and sequencing of drug administration (as applicable) were verified by me and second sign-in RN. Patient was assessed for symptoms or adverse side effects during treatment. PRE-TREATMENT ASSESSMENT: NEURO: denies symptoms CV/RESP: denies symptoms GI/: denies symptoms OTHER: denies any additional symptoms PAIN: 0 documented in this encounter Plan of Treatment Upcoming Encounters Date Type Department Care Team (Late st Contact Info) Description 01/20/2024 2:15 PM EST Hem/Onc Treatment [address]ematology/[address] [phone] Ritu, Chair 5 Hem Onc [address] [place] [address] 01/27/2024 2:15 PM EDT Hem/Onc Treatment Hematology/[address], [address] [phone] Ritu, Chair 9 Hem Onc [address] [place] [address] 02/03/2024 12:00 PM EDT Hem/Onc Treatment Hematology/Oncology Treatment, [address] [place] [phone] Ritu, Chair 5 Hem Onc Scenery 200 [facility] [place], [place] [id number] 02/10/2024 2:00 PM EDT Hem/Onc Treatment Hematology/Oncology Treatment, [place] 200 [facility], [place] [phone] Park, Chair 9 Hem Onc [facility] [place] [address] 03/12/2024 3:00 PM EDT Office Visit Hematology/Oncology [facility] [place] 200 [facility] [place], [place] [address] Mariana Florez CRNP [address] [place], [place] [phone] Health Maintenance Due Date Last Done Comments DXA Scan 1940 COVID-19 Vaccine (#1) 1945 Depression Screening 1952 Diabetic Eye Exam 1958 Diabetic Foot Exam 1958 DTaP,Tdap,and Td Vaccines (1 - Tdap) 1959 Zoster Vaccines (1 of 2) 1959 Albumin/Creatinine Ratio 12/11/2021 12/11/2020 Influenza Vaccine (FLU shot) (#1) 2023 HbA1c 04/19/2024 10/19/2023, 11/15, 06/13/2020, Additional history exists GFR 01/11/2025 01/12/2024, 12/16, 12/29/2023, Additional history exists Pneumococcal Vaccine: 65+ Years [...] this encounter Medical Devices Implanted Type Area Steel Engraver Device Identifier Shelf Expiration Date Model / Serial / Lot Screw Elbow Humeral Total - [id number] Implanted:Qty: 1 on 12/23/2018 by Gautam Jasso MD at OR [facility] Right: Upper Arm [employer] 09/13/20270 / / [id number] Deisi Nexel Total Elbow Implanted:Qty: 1 on 12/23/2018 by Gautam Jasso MD at OR [facility] Right: Upper Arm 04/13/2023 / / [id number] Cement Antibiotic Bone - [id number] Implanted:Qty: 1 on 12/23/2018 by Gautam Jasso MD at OR [facility] Right: Upper Arm RENY : ORTHOPAEDICS 05/13/2020 6197-9-010 / / [id number] Cement Antibiotic Bone - [id number] Implanted:Qty: 1 on 12/23/2018 by Gautam Jasso MD at OR [facility] Right: Upper Arm RENY : ORTHOPAEDICS 05/13/2020 6197-9-010 / / [id number] Stem Compr Srs Mod [id number] - [id number] Implanted:Qty: 1 on 12/23/2018 by Gautam Jasso MD at OR [facility] Right: Upper Arm BIOMET : TRAUMA 01/28/2027 [id number] / / [id number] Deisi Nexel Total Elbow Ulnar Component Implanted:Qty: 1 on 12/23/2018 by Gautam Jasso MD at OR [facility] Right: Upper Arm 07/14/202500-025 - / / [id number] Comprehensive Srs/Nexel Distal Body Implanted:Qty: 1 on 12/23/2018 by Gautam Jasso MD at OR [facility] Right: Upper Arm 03/03/2028 [id number] / / [id number] Valve Ricky 3 Ultra 26mm - [id number] Implanted:Qty: 1 on 05/27/2022 by Jesús Weber MD at CARDIAC LABS [facility] [employer] [id number] 03/17/2023 [id number] / / Port Implant W/8f Poly Cath - [id number] Implanted:Qty: 1 on 12/29/2022 by Sudhir Lovett DO at OR [facility] Right: Chest CR BARD : PERIPHERAL VASCULAR [id number] 02/12/2024 [id number] / / [id number] documented as of this encounter Visit Diagnoses Diagnosis Multiple myeloma not having achieved remission (HCC)- Primary Multiple myeloma, without mention of having achieved remission documented in this encounter Administered Medications Active Administered Medications - up to 3 most recent administrations Medication Order MAR Action Action Date Dose Rate Site diphenhydrAMINE (Benadryl) inj 50 mg 50 mg, IV Push, ONCE PRN Other, Hypersensitivity Reaction, Starting on Tue01/13/24 at 1430, Until 01/14/24 at 1429, For 24 hours EPINEPHrine 1 MG/ML inj 0.3 mg 0.3 mg, Intramuscular, ONCE PRN Other, Hypersensitivity Reaction or Anaphylaxis, Starting on Tue01/13/24 at 1430, Until 01/14/24 at 1429, For 24 hours hEParin 100 UNIT/ML Lock Flush inj 500 Units 500 Units (5 mL), IV Lock, PRN Other, IV Flush, Starting on Tue01/13/24 at 1430, Until 01/14/24 at 1429, For 24 hours, Do not flush if lock, PICC, or central line not in place; IV infusing or unable to flush. Given 01/13/2024 3:27 PM EST 500 Units Hydrocortisone Sod Suc (PF) (Solu-Cortef) inj 100 mg 100 mg, IV Push, ONCE PRN Other, Hypersensitivity Reaction, Starting on Tue01/13/24 at 1430, Until 01/14/24 at 1429, For 24 hours sodium chloride 0.9 % flush central line 10 mL 10 mL, IV Push, PRN Other, IV Flush, Starting on Tue01/13/24 at 1430, Until 01/14/24 at 1429, For 24 hours, Do not flush if lock, PICC, or central line not in place; IV infusing or unable to flush. Given 01/13/2024 3:27 PM EST 10 mL Inactive Administered Medications - up to 3 most recent administrations Medication Order MAR Action Action Date Dose Rate Site cycloPHOSphamide (Cytoxan) 620 mg in NSS 250 mL infusion 620 mg (rounded from 621 mg = 300 mg/m2 2.07 m2 Treatment Plan BSA from Recorded weight), IV Piggyback, at 500 mL/hr, Cyclophosphamide doses over 1g should be in 500 mL. May extend infusion to 1 hour if not tolerated., ONCE, 1 dose, On Tue01/13/24 at 1515 Start Infusion 01/13/2024 2:53 PM EST 620 mg 500 mL/hr NSS infusion FOR HYDRATION Intravenous, at 50 mL/hr Administer over 10 Hours, ONCE, 1 dose, On Tue01/13/24 at 1515 Start Infusion 01/13/2024 2:53 PM EST 500 mL 50 mL/hr ondansetron (Zofran) tab 8 mg 8 mg, Oral, ONCE, On Tue01/13/24 at 1515, For 1 dose Given 01/13/2024 2:38 PM EST 8 mg documented in this encounter Advance Directives Documents on File Type Date Recorded Patient Schedule Manager Expl anation Power of Behavioral Health Tech 12/12/2018 8:46 AM Vipin viveros Power of Behavioral Health Tech Power of Behavioral Health Tech 12/12/2018 8:45 AM Zuleyma ferguson Power of Behavioral Health Tech Latest Code Status on File Code Status [...] the patient have Health Care Power of Behavioral Health Tech? Yes, not currently available Full Code 11/21/2018 8:53 AM 11/21/2018 2:27 PM This or bull reflects the patients wishes and were consensually agreed upon. Care Teams Immigration Associate Relationship Specialty Start Date End Date Kulwinder Byers MD [address] [place] [address] PCP - General 06/28/03 documented as of this encounter
--- OUTSIDE RECORDS SUMMARY | 2024-01-15 19:51 | External Medical Summary ---
Author Name Unknown Address Unknown Organization K01:[facility] [place] [address] [facility] [place] [address] Laboratory Report Ordering Provider Test Date Status WOOD CANTU 01/12/2024 15:15:00 Final Observation Date Value Abnormality Reference (Units ) Status SYNC LEUKOCYTES IN BLOOD BY AUTOMATED COUNT 01/12/2024 15:15:00 3.77 Below low normal 4.00-10.80 (K/uL) Final Segs 01/12/2024 15:15:00 84.7 Above high normal 40.0-75.0 (%) Final Lymphs % 01/12/2024 15:15:00 2.1 Below low normal 18.0-42.0 (%) Final Monos 01/12/2024 15:15:00 9.5 1.0-11.0 (%) Final Eosinophils 01/12/2024 15:15:00 1.3 0.0-6.0 (%) Final Basos 01/12/2024 15:15:00 0.8 0.0-2.0 (%) Final Immature Granulocyte, Percent 01/12/2024 15:15:00 1.6 0.0-2.0 (%) Final Absolute Segs 01/12/2024 15:15:00 3.19 1.80-7.70 (K/uL) Final Lymphs, absolute 01/12/2024 15:15:00 0.08 Below low normal 1.00-4.80 (K/ul) Final Monos, Abs 01/12/2024 15:15:00 0.36 0.00-1.10 (K/uL) Final Eos, Abs 01/12/2024 15:15:00 0.05 0.00-0.70 (K/uL) Final Basos, Abs 01/12/2024 15:15:00 0.03 0.00-0.20 (K/uL) Final Immature Granulocytes, Number 01/12/2024 15:15:00 0.06 0.00-0.20 (K/uL) Final Performing Location [facility] [place] [facility] [address] [facility] [address]
--- OUTSIDE RECORDS SUMMARY | 2024-01-15 19:51 | External Medical Summary | Summary of Care ---
Author Name Unknown Organization [facility] Address [address] [facility] [place] [address] Phone [phone] Care Team Providers Care Repairing Calibrator Name Role Phone Kulwinder Byers MD Primary Care Provider [phone] Reason for Visit * Reason Comments Chemotherapy Cytoxan * Episode Based Medications (Routine) - Authorized Specialty Diagnoses / Procedures Referred By Contac t Referred To Contact Diagnoses Multiple myeloma not having achieved remission (HCC) Procedures UT DARATUMUMAB, HYALURONIDASE UT CYCLOPHOSPHAMIDE 100 MG INJ Jorge Allen MD [address] [place] [address] Anc Hem/Onc Ward Chaney DEPT CLOSED - 09/27/23 200 [facility] [place] [address] Referral ID Status Reason Start Date Expiration Date V isits Requested Visits Authorized [id number] Authorized 07/23/2022 11/13/2099 999 99 Encounter Details Date Type Department Care Team (Latest Contact Info) Description 01/13/2024 2:15 PM EST Hem/Onc Treatment Hematology/Oncology Treatment, [place] [address] [place] [address] Ritu, [...] 30 Tab 0 12/25/2018 Active nystatin (NYSTOP) 445424 UNIT/GM powder Apply topically to affected area [...] 2:15 PM EST Hem/Onc Treatment Hematology/[address], [address] [phone] Ritu, Chair 5 Hem On[address] [place] [address] 01/27/2024 2:15 PM EDT Hem/Onc Treatment Hematology/Oncology [address], [address] [phone] Ritu, Chair 9 Hem Onc [address] [place] [address] 02/03/2024 12:00 PM EDT Hem/Onc Treatment Hematology/Oncology Treatment, [address] [place] [phone] Ritu, Chair 5 Hem Onc Scenery 200 [facility] [place], [place] [phone] 02/10/2024 2:00 PM EDT Hem/Onc Treatment Hematology/Oncology Treatment, [place] 200 [facility], [place] [phone] Park, Chair 9 [facility] [address] [facility] [place] [address] 03/12/2024 3:00 PM EDT Office Visit Hematology/Oncology [facility] [place] [address] [facility] [place], [place] [address] Mariana Florez CRNP [address] [place], [place] [phone] Health Maintenance Due Date Last Done Comments [...] this encounter Medical Devices Implanted Type Area Boilermaker Assembly And Erection Device Identifier Shelf Expiration Date Model / Serial / Lot Screw Elbow Humeral Total - [id number] Implanted:Qty: 1 on 12/23/2018 by Gautam Jasso MD at OR [facility] Right: Upper Arm [employer] 09/13/20270 / / [id number] Deisi Nexel Total Elbow Implanted:Qty: 1 on 12/23/2018 by Gautam Jasso MD at OR [facility] Right: Upper Arm 04/13/2023 / / [id number] Cement Antibiotic Bone - [id number] Implanted:Qty: 1 on 12/23/2018 by Gautam Jasso MD at OR [facility] Right: Upper Arm RENY : ORTHOPAEDICS 05/13/2020 6197-9-010 / / [id number] Cement Antibiotic Bone - [id number] Implanted:Qty: 1 on 12/23/2018 by Gautam Jasso MD at OR [facility] Right: Upper Arm RENY : ORTHOPAEDICS 05/13/2020 6197-9-010 / / [id number] Stem Compr Srs Mod [id number] - [id number] Implanted:Qty: 1 on 12/23/2018 by Gautam Jasso MD at OR [facility] Right: Upper Arm BIOMET : TRAUMA 01/28/2027 [id number] / / [id number] Deisi Nexel Total Elbow Ulnar Component Implanted:Qty: 1 on 12/23/2018 by Gautam Jasso MD at OR [facility] Right: Upper Arm 07/14/202500-025 - / / [id number] Comprehensive Srs/Nexel Distal Body Implanted:Qty: 1 on 12/23/2018 by Gautam Jasso MD at OR [facility] Right: Upper Arm 03/03/2028 [id number] / / [id number] Valve Ricky 3 Ultra 26mm - [id number] Implanted:Qty: 1 on 05/27/2022 by Jesús Weber MD at CARDIAC LABS [facility] Square [id number] 03/17/2023 [id number] / / Port Implant W/8f Poly Cath - [id number] Implanted:Qty: 1 on 12/29/2022 by Sudhir Lovett DO at OR [facility] Right: Chest CR BARD : PERIPHERAL VASCULAR [id number] 02/12/2024 [id number] / / [id number] documented as of this encounter Visit Diagnoses [...] Documents on File Type Date Recorded Patient Automatic Lathe Tender Expl anation Power of Cigar Making Machine Supervisor 12/12/2018 8:46 AM Vipin viveros Power of Cigar Making Machine Supervisor Power of Cigar Making Machine Supervisor 12/12/2018 8:45 AM Zuleyma ferguson Power of Cigar Making Machine Supervisor Latest Code Status on File Code Status [...] the patient have Health Care Power of Cigar Making Machine Supervisor? Yes, not currently available Full Code 11/21/2018 8:53 AM 11/21/2018 2:27 PM This or bull reflects the patients wishes and were consensually agreed upon. Care Teams Repairing Calibrator Relationship Specialty Start Date End Date Kulwinder Byers MD [address] [place] [address] PCP - General 06/28/03 documented as of this encounter
--- OUTSIDE RECORDS SUMMARY | 2024-01-15 19:51 | External Medical Summary ---
Author Name Unknown Address Unknown Organization K01:[facility] [place] - [address] [facility] [place] [address] Laboratory Report Ordering Provider Test Date Status WOOD CANTU 01/12/2024 15:15:00 Final Observation Date Value Abnormality Reference (Units ) Status BUN 01/12/2024 15:15:00 20 6-20 (mg/dL) Final Creatinine 01/12/2024 15:15:00 0.9 0.5-1.0 (mg/dL) Final Glomerular filtration rate/1.73 sq M.predicted [Volume Rate/Area] in Serum, Plasma or Blood by Creatinine-based formula (CKD-EPI) 01/12/2024 15:15:00 65 >=60 (mL/min) Final eGFR is calculated based on the CKD-EPI 2020 equation SODIUM 01/12/2024 15:15:00 139 135-146 (m mol/L) Final Potassium 01/12/2024 15:15:00 4.1 3.5-5.1 (m mol/L) Final Cl 01/12/2024 15:15:00 103 98-107 (mm ol/L) Final CO2 01/12/2024 15:15:00 23 22-32 (mmo l/L) Final Anion gap 01/12/2024 15:15:00 13 7-15 (mmol /L) Final Glucose 01/12/2024 15:15:00 254 Above high normal 70 -120 (mg/dL) Final Albumin 01/12/2024 15:15:00 3.7 Below low normal 3.8 -5.0 (g/dL) Final AST (Aspartate aminotransferase) 01/12/2024 15:15:00 17 10-35 (U/L) Fin al Alk Phos 01/12/2024 15:15:00 64 35-130 (U/ L) Final Bilirubin, Total 01/12/2024 15:15:00 0.2 <=1 .2 (mg/dL) Final Calcium 01/12/2024 15:15:00 8.8 8.4-10.2 ( mg/dL) Final Protein 01/12/2024 15:15:00 6.3 6.0-8.3 (g /dL) Final ALT (Alanine aminotransferase) 01/12/2024 15:15:00 21 10-35 (U/L) Abisai mcconnell Performing Location [facility] [place] - [address] [facility] [address]
--- OUTSIDE RECORDS SUMMARY | 2024-01-15 19:51 | External Medical Summary | Summary of Care ---
Author Name Unknown Organization [facility] Address [address] [facility] [address] Phone [phone] Care Team Providers Care Flower Machine Operator Name Role Phone Kulwinder Byers MD Primary Care Provider Reason for Visit * Reason Comments Outpatient Testing Encounter Details Date Type Department Care Team (Late st Contact Info) Description 01/12/2024 1:20 PM EST Laboratory Laboratory, [place] [address] [place] [address] [place], [facility] [address], [place] [id number] Multiple myeloma not having achieved remission (HCC) Allergies Active Allergy Reactions Criticality Noted Date Comments Adhesive Tape 05/28/2003 documented as of this encounter (statuses as of 01/12/2024) Medications Medication Sig Dispensed Refills Start Date [...] 30 Tab 0 12/25/2018 Active nystatin (NYSTOP) 378653 UNIT/GM powder Apply topically to affected area [...] as of this encounter (statuses as of 01/12/2024) Active Problems Problem Noted Date Diagnosed Date [...] as of this encounter (statuses as of 01/12/2024) Resolved Problems Problem Noted Date Diagnosed Date 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 Aortic valve stenosis 2021 documented as of this encounter (statuses as of 01/12/2024) Social History Tobacco Use Types Packs/Day Years [...] Care Team (Late st Contact Info) Description 01/13/2024 2:15 PM EST Hem/Onc Treatment Hematology/Oncology Treatment, [place] [address] [place] [address] Ritu, Chair 5 Hem Onc [facility] [address] [facility] [place] [address] 03/12/2024 3:00 PM EDT Office Visit Hematology/Oncology [facility] Ritu [place] [address] [facility] [place] [address] Mariana Florez CRNP [address] [facility] [place] [address] Pending Results Name Type Priority Associated Diagnoses Date /Time CBC WITH WBC DIFFERENTIAL Lab STAT Multiple myeloma not having achieved remission (HCC) 01/12/2024 3:15 PM EST COMPREHENSIVE METABOLIC PANEL Lab STAT Multiple myeloma not having achieved remission (HCC) 01/12/2024 3:15 PM EST CBC Lab STAT Multiple myeloma not having achieved remission ([facility]) 01/12/2024 3:15 PM EST DIFFERENTIAL, AUTOMATED Lab STAT Multiple myeloma not having achieved remission ([facility]) 01/12/2024 3:15 PM EST Health Maintenance Due Date Last Done Comments [...] this encounter Medical Devices Implanted Type Area Dairy Lab Technician Device Identifier Shelf Expiration Date Model / Serial / Lot Screw Elbow Humeral Total - [id number] Implanted:Qty: 1 on 12/23/2018 by Gautam Jasso MD at OR [facility] Right: Upper Arm [employer] 09/13/202700-090 - / / [id number] Deisi Nexel Total Elbow Implanted:Qty: 1 on 12/23/2018 by Gautam Jasso MD at OR [facility] Right: Upper Arm 04/13/2023 / / [id number] Cement Antibiotic Bone - [id number] Implanted:Qty: 1 on 12/23/2018 by Gautam Jasso MD at OR [facility] Right: Upper Arm RENY : ORTHOPAEDICS 05/13/2020 6197-9-010 / / [id number] Cement Antibiotic Bone - [id number] Implanted:Qty: 1 on 12/23/2018 by Gautam Jasso MD at OR [facility] Right: Upper Arm RENY : ORTHOPAEDICS 05/13/2020 6197-9-010 / / [id number] Stem Compr Srs Mod [id number] - [id number] Implanted:Qty: 1 on 12/23/2018 by Gautam Jasso MD at OR [facility] Right: Upper Arm BIOMET : TRAUMA 01/28/2027 [id number] / / [id number] Deisi Nexel Total Elbow Ulnar Component Implanted:Qty: 1 on 12/23/2018 by Gautam Jasso MD at OR [facility] Right: Upper Arm 07/14/202500-025 - / / [id number] Comprehensive Srs/Nexel Distal Body Implanted:Qty: 1 on 12/23/2018 by Gautam Jasso MD at OR [facility] Right: Upper Arm 03/03/2028 [id number] / / [id number] Valve Ricky 3 Ultra 26mm - [id number] Implanted:Qty: 1 on 05/27/2022 by Jesús Weber MD at CARDIAC LABS [facility] [employer] [id number] 03/17/2023 [id number] / / Port Implant W/8f Poly Cath - [id number] Implanted:Qty: 1 on 12/29/2022 by Sudhir Lovett, at OR [facility] Right: Chest CR BARD : PERIPHERAL VASCULAR [id number] 02/12/2024 [id number] / / [id number] documented as of this encounter Visit Diagnoses Diagnosis Multiple myeloma not having achieved remission (HCC) Multiple myeloma, without mention of having achieved remission documented in this encounter Advance Directives Documents on File Type Date Recorded Patient Dispatch Associate Expl anation Power of Audio Video Technician 12/12/2018 8:46 AM Healt hcare Power of Audio Video Technician Power of Audio Video Technician 12/12/2018 8:45 AM Zuleyma ferguson Power of Audio Video Technician Latest Code Status on File Code Status [...] the patient have Health Care Power of Audio Video Technician? Yes, not currently available Full Code 11/21/2018 8:53 AM 11/21/2018 2:27 PM This or bull reflects the patients wishes and were consensually agreed upon. Care Teams Flower Machine Operator Relationship Specialty Start Date End Date Kulwinder Byers MD [address] [place] [address] PCP - General 06/28/03 documented as of this encounter
--- OUTSIDE RECORDS SUMMARY | 2024-01-15 19:51 | External Medical Summary | Summary of Care ---
Author Name Unknown Organization [facility] Address [address] [facility] [place] [address] Phone [phone] Care Team Providers Care Apartment Rental Clerk Name Role Phone Kulwinder Byers MD Primary Care Provider [phone] Reason for Visit * Reason Comments Chemotherapy Cytoxan. Medication Administration Xgeva. * Episode Based Medications (Routine) - Authorized Specialty Diagnoses / Procedures Referred By Contac t Referred To Contact Diagnoses Multiple myeloma not having achieved remission (HCC) Procedures [place] DARATUMUMAB, HYALURONIDASE [place] CYCLOPHOSPHAMIDE 100 MG INJ Jorge Allen MD [address] [place] [address] Anc Hem/Onc Scenery Ritu DEPT CLOSED - 09/27/23 [address] [place] [address] Referral ID Status Reason Start Date Expiration Date V isits Requested Visits Authorized [id number] Authorized 07/23/2022 11/13/2099 999 99 Encounter Details Date Type Department Care Team (Latest Contact Info) Description 11/25/2023 1:45 PM EST Hem/Onc Treatment Hematology/Oncolog y Treatment, [place] [address] [place] [address] Ritu, Chair 1 Hem Onc [place] [address] [place] [address] Multiple myeloma not having achieved remission (HCC)*; Encounter for antineoplastic chemotherapy Allergies Active Allergy Reactions Criticality Noted Date Comments Adhesive Tape 05/28/2003 documented as of this encounter (statuses as of 01/08/2024) Medications Medication Sig Dispensed Refills Start Date [...] 4 times a day. 30 Tab 0 9 Active nystatin (NYSTOP) 456998 UNIT/GM powder Apply topically to affected area 2 times a day. Apply to abd. Skin folds 15 g 0 9 Active atorvaSTATin (LIPITOR) 10 MG Tablet daily. 0 9 Active Steel Rolling WalkerIndications :Multiple myeloma not having achieved remission (HCC),Gait disturbance Use as directed . Rollator walker 1 Each 0 2 Active Prochlorperazine Maleate 10 MG Oral Tablet (Compazine)Indica tions:Multiple myeloma not having achieved remission (HCC) Take by mouth 1 Tablet every 6 hours as needed for Nausea. 30 Tablet 1 2 Active Pantoprazole Sodium 40 MG Oral Tablet Delayed Release (Protonix) Take 1 Tablet by mouth daily first thing in the morning. (Confirmed with PCP 10/12/22) 0 2 Active Calcium 600-200 MG-UNIT Oral Tablet Take by mouth . 0 Active Acyclovir 400 MG Oral Tablet (Zovirax)Indicati ons:Multiple myeloma not having achieved remission (HCC) Take 1 Tablet (400 mg) by mouth in the morning and 1 Tablet (400 mg) before bedtime. 180 Tablet 3 2 Active Xgeva 120 MG/1.7ML Subcutaneous Solution (Denosumab) 120 mg. 0 0 Active Loperamide HCl 2 MG Oral Capsule (Imodium) Take 1 Capsule by mouth 4 times a day as needed for Diarrhea. 0 Active Lidocaine-Priloca ine 2.5-2.5 % External Cream (Emla)Indications :Multiple myeloma not having achieved remission (HCC) APPLY TO SKIN OVER MEDIPORT & COVER 1HR PRIOR TO ACCESSING. 30 g 1 3 Active Aspirin Low Dose 81 MG Oral Tablet Chewable (aspirin)Indicati ons:S/P TAVR (transcatheter aortic valve replacement),Hypo kalemia TAKE 1 TABLET BY MOUTH EVERY DAY IN THE MORNING 90 Tablet 3 3 Active Furosemide 20 MG Oral Tablet (Lasix)Indication s:S/P TAVR (transcatheter aortic valve replacement),Hypo kalemia TAKE 1 TABLET BY MOUTH EVERY DAY IN THE MORNING 90 Tablet 3 3 Active Venlafaxine HCl 75 MG Oral Tablet (Effexor) Take 1 Tablet by mouth in the morning. In the am.. 90 Tablet 3 3 Active Phospha 250 Neutral 155-852-130 MG Oral TabletIndications :Multiple myeloma not having achieved remission (HCC),Hypophospha temia Take 1 Tablet by mouth in the morning and 1 Tablet before bedtime. 180 Tablet 1 3 Active Potassium Chloride ER 10 MEQ Oral Tablet Extended ReleaseIndication s:Multiple myeloma not having achieved remission (HCC),Hypokalemia TAKE BY MOUTH 1 TABLET IN THE MORNING AND 1 TABLET IN THE EVENING BEFORE BEDTIME. 180 Tablet 0 3 Active dexAMETHasone 4 MG Oral Tablet (Decadron)Indicat ions:Multiple myeloma not having achieved remission (HCC) Take 20mg once a week 60 Tablet 1 3 Active Ondansetron HCl 8 MG Oral Tablet (Zofran)Indicatio ns:Multiple myeloma not having achieved remission (HCC) Take by mouth 1 Tablet every 8 hours as needed for Nausea. 30 Tablet 1 2 12/28/19 24 Discontinued oxyCODONE HCl 5 MG Oral Tablet (Oxy IR)Indications:Mu ltiple myeloma not having achieved remission (HCC) Take 1 Tablet by mouth every 6 hours as needed for Pain, Breakthrough. 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] as of this encounter Nursing Notes * Brenda Ashton RN - 11/25/2023 3:19 PM EST Goals: Patient will remain free from injury. Possible barriers to meeting goals: Fall risk d/t ambulation with IV pole. Stability of the patient: Moderately unstable - medium risk of patient condition declining or worsening Summary regarding today's goals: Met: Patient remained free of injury. Functional status at today's visit: Restricted in physically strenuous activity but ambulatory and able to carry out work on a light orsedentary nature, e.g. light house work, office work The drug name, dose, infusion volume, rate and route of administration, expiration date and time, appearance and physical integrity of the drug and rate set on the pump and sequencing of drug administration (as applicable) were verified by me and second sign-in RN. Patient was assessed for symptoms or adverse side effects during treatment. Patient tolerated procedure well. Discharged in stable condition. * Brenda Ashton RN - 11/25/2023 2:12 PM EST Chair 9. Patient arrived for cytoxan and xgeva. Patient denies any jaw/dental pain or any recent dental work. Patient states she feels good. Chemo agents Cytoxan. Appetite good Nausea/Vomiting no Diarrhea no Constipation no Mucositis no Fatigue no Bleeding no Infection no Rash no Numbness tingling no Pain no Radiation no ABN Labs WNL for treatment Alt in Tx: no Return in 1 week. Safety and Risk for Injury Patient will remain free from injury. Ensure appropriate safety devices are available. Provide and maintain safe environment. documented in this encounter Plan of Treatment Upcoming Encounters Date Type Department Care Team (Late st Contact Info) Description 01/13/2024 2:15 PM EST Hem/Onc Treatment Hematology/Oncology Treatment, [address] [place] [id number] Ritu, Chair 5 Hem Onc [facility] [address] [facility] [place] [address] 03/12/2024 3:00 PM EDT Office Visit Hematology/Oncology [address] [address] Mariana Florez CRNP [address] [place] [address] Health Maintenance Due Date Last Done Comments [...] this encounter Medical Devices Implanted Type Area Manager Car Device Identifier Shelf Expiration Date Model / Serial / Lot Screw Elbow Humeral Total - [id number] Implanted:Qty: 1 on 12/23/2018 by Gautam Jasso MD at [place] [facility] Right: Upper Arm [employer] 09/13/20278400-090 -00 / / [id number] Deisi Nexel Total Elbow Implanted:Qty: 1 on 12/23/2018 by Gautam Jasso MD at OR [facility] Right: Upper Arm 04/13/20238400-095 -00 / / [id number] Cement Antibiotic Bone - [id number] Implanted:Qty: 1 on 12/23/2018 by Gautam Jasso MD at OR [facility] Right: Upper Arm RENY : ORTHOPAEDICS 05/13/2020 6197-9-010 / / [id number] Cement Antibiotic Bone - [id number] Implanted:Qty: 1 on 12/23/2018 by Gautam Jasso MD at OR [facility] Right: Upper Arm RENY : ORTHOPAEDICS 05/13/2020 6197-9-010 / / [id number] Stem Compr Srs Mod 4m390tb - [id number] Implanted:Qty: 1 on 12/23/2018 by Gautam Jasso MD at OR [facility] Right: Upper Arm BIOMET : TRAUMA 01/28/2027 [id number] / / [id number] Deisi Nexel Total Elbow Ulnar Component Implanted:Qty: 1 on 12/23/2018 by Gautam Jasso MD at OR [facility] Right: Upper Arm 07/14/20258400-025 -07 / / [id number] Comprehensive Srs/Nexel Distal Body Implanted:Qty: 1 on 12/23/2018 by Gautam Jasso MD at OR [facility] Right: Upper Arm 03/03/2028 [id number] / / [id number] Valve Ricky 3 Ultra 26mm - [id number] Implanted:Qty: 1 on 05/27/2022 by Jesús Weber MD at CARDIAC LABS [facility] [employer] [id number] 03/17/2023 [id number] / / Port Implant W/8f Poly Cath - [id number] Implanted:Qty: 1 on 12/29/2022 by Sudhir Lovett DO at OR [facility] Right: Chest CR BARD : PERIPHERAL VASCULAR [id number] 02/12/2024 [id number] / / [id number] documented as of this encounter Visit Diagnoses Diagnosis Multiple myeloma not having achieved remission (HCC)- Primary Multiple myeloma, without mention of having achieved remission Encounter for antineoplastic chemotherapy documented in this encounter Administered Medications Inactive Administered Medications - up to 3 [...] if not tolerated., ONCE, 1 dose, On Tue11/25/23 at 1415 Start Infusion 11/25/2023 2:34 PM EST 620 mg 500 mL/hr Denosumab (Xgeva) subcut inj 120 mg 120 mg, Subcutaneous, ONCE, On Tue11/25/23 at 1445, For 1 dose Given 11/25/2023 2:37 PM EST 120 mg Arm Left Upper hEParin 100 UNIT/ML Lock Flush inj 500 Units 500 Units (5 mL), IV Lock, PRN Other, IV Flush, Starting on Tue11/25/23 at 1337, Until Tue11/25/23 at 1922, For 24 hours, Do not flush if lock, PICC, or central line not in place; IV infusing or unable to flush. Given 11/25/2023 3:10 PM EST 500 Units NSS infusion FOR HYDRATION Intravenous, at 50 mL/hr Administer over 10 Hours, ONCE, 1 dose, On Tue11/25/23 at 1415 Start Infusion 11/25/2023 1:50 PM EST 500 mL 50 mL/hr ondansetron (Zofran) tab 8 mg 8 mg, Oral, ONCE, On Tue11/25/23 at 1400, For 1 dose Given 11/25/2023 2:00 PM EST 8 mg sodium chloride 0.9 % flush central line 10 mL 10 mL, IV Push, PRN Other, IV Flush, Starting on Tue11/25/23 at 1337, Until Tue11/25/23 at 1922, For 24 hours, Do not flush if lock, PICC, or central line not in place; IV infusing or unable to flush. Given 11/25/2023 3:10 PM EST 10 mL documented in this encounter Advance Directives Documents on File Type Date Recorded Patient Insulation Packer Expl anation Power of Technical Support Internship 12/12/2018 8:46 AM Vipin viveros Power of Technical Support Internship Power of Technical Support Internship 12/12/2018 8:45 AM Zuleyma ferguson Power of Technical Support Internship Latest Code Status on File Code Status [...] the patient have Health Care Power of Technical Support Internship? Yes, not currently available Full Code 11/21/2018 8:53 AM 11/21/2018 2:27 PM This or bull reflects the patients wishes and were consensually agreed upon. Care Teams Apartment Rental Clerk Relationship Specialty Start Date End Date Kulwinder Byers MD [address] [place] [address] PCP - General 06/28/03 documented as of this encounter
--- OUTSIDE RECORDS SUMMARY | 2024-01-15 19:51 | External Medical Summary | Summary of Care ---
Author Name Unknown Organization [facility] Address [address] [facility] [place] [address] Phone [phone] Care Team Providers Care Speech And Hearing Clinic Director Name Role Phone Kulwinder Byers MD Primary Care Provider Reason for Visit * Reason Comments Chemotherapy Cytoxan. Medication Administration Xgeva. * Episode Based Medications (Routine) - Authorized Specialty Diagnoses / Procedures Referred By Contac t Referred To Contact Diagnoses Multiple myeloma not having achieved remission (HCC) Procedures [place] DARATUMUMAB, HYALURONIDASE [place] CYCLOPHOSPHAMIDE 100 MG INJ Jorge Allen MD [address] [place] [address] Anc Hem/Onc Scenery Ritu DEPT CLOSED - 09/27/23 [address] [place] [address] Referral ID Status Reason Start Date Expiration Date V isits Requested Visits Authorized [id number] Authorized 07/23/2022 11/13/2099 999 99 Encounter Details Date Type Department Care Team (Latest Contact Info) Description 11/25/2023 1:45 PM EST Hem/Onc Treatment Hematology/Oncolog y Treatment, [place] [address] [place] [address] Ritu, Chair 1 Hem Onc [place] [address] [place] [address] Multiple myeloma not having achieved remission (HCC)*; Encounter for antineoplastic chemotherapy Allergies Active Allergy Reactions Criticality Noted Date Comments Adhesive Tape 05/28/2003 documented as of this encounter (statuses as of 01/07/2024) Medications Medication Sig Dispensed Refills Start Date [...] 30 Tab 0 9 Active nystatin (NYSTOP) 292568 UNIT/GM powder Apply topically to affected area [...] as of this encounter (statuses as of 01/07/2024) Active Problems Problem Noted Date Diagnosed Date [...] as of this encounter (statuses as of 01/07/2024) Resolved Problems Problem Noted Date Diagnosed Date 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 Aortic valve stenosis 2021 documented as of this encounter (statuses as of 01/07/2024) Social History Tobacco Use Types Packs/Day Years [...] 2:15 PM EST Hem/Onc Treatment Hematology/Oncology Treatment, [address] [place] [phone] Ritu, Chair 5 Hem Onc [facility] [place] [address] 03/12/2024 3:00 PM EDT Office Visit Hematology/Oncology [address] [address] Mariana Florez CRNP [address] [place] [address] Health Maintenance Due Date Last [...] this encounter Medical Devices Implanted Type Area Showroom Manager Device Identifier Shelf Expiration Date Model / Serial / Lot Screw Elbow Humeral Total - [id number] Implanted:Qty: 1 on 12/23/2018 by Gautam Jasso MD at OR [facility] Right: Upper Arm [employer] 09/13/20278400-090 -00 / / [id number] Deisi Nexel Total Elbow Implanted:Qty: 1 on 12/23/2018 by Gautam Jasso MD at OR [facility] Right: Upper Arm 04/13/20238400-095 -00 / / [id number] Cement Antibiotic Bone - [id number] Implanted:Qty: 1 on 12/23/2018 by Gautam Jasso MD at OR [facility] Right: Upper Arm RENY : ORTHOPAEDICS 05/13/2020 6197-9-010 / / [id number] Cement Antibiotic Bone - [id number] Implanted:Qty: 1 on 12/23/2018 by Gautam Jasso MD at OR [facility] Right: Upper Arm RENY : ORTHOPAEDICS 05/13/2020 6197-9-010 / / [id number] Stem Compr Srs Mod 6f604hi - [id number] Implanted:Qty: 1 on 12/23/2018 by Gautam Jasso MD at OR [facility] Right: Upper Arm BIOMET : TRAUMA 01/28/2027 [id number] / / [id number] Deisi Nexel Total Elbow Ulnar Component Implanted:Qty: 1 on 12/23/2018 by Gautam Jasso MD at OR [facility] Right: Upper Arm 07/14/20258400-025 -07 / / [id number] Comprehensive Srs/Nexel Distal Body Implanted:Qty: 1 on 12/23/2018 by Gautam Jasso MD at OR [facility] Right: Upper Arm 03/03/2028 [id number] / / [id number] Valve Ricyk 3 Ultra 26mm - [id number] Implanted:Qty: 1 on 05/27/2022 by Jesús Weber MD at CARDIAC LABS [facility] [employer] [id number] 03/17/2023 [id number] / / Port Implant W/8f Poly Cath - [id number] Implanted:Qty: 1 on 12/29/2022 by Sudhir Lovett DO at OR [facility] Right: Chest CR BARD : PERIPHERAL VASCULAR [id number] 02/12/2024 [id number] / / [id number] documented as of this encounter Visit Diagnoses [...] Documents on File Type Date Recorded Patient Chief Executive Expl anation Power of Quality Checker 12/12/2018 8:46 AM Vipin viveros Power of Quality Checker Power of Quality Checker 12/12/2018 8:45 AM Zuleyma ferguson Power of Quality Checker Latest Code Status on File Code Status [...] the patient have Health Care Power of Quality Checker? Yes, not currently available Full Code 11/21/2018 8:53 AM 11/21/2018 2:27 PM This or bull reflects the patients wishes and were consensually agreed upon. Care Teams Speech And Hearing Clinic Director Relationship Specialty Start Date End Date Kulwinder Byers MD [address] [place] [address] PCP - General 06/28/03 documented as of this encounter
--- OUTSIDE RECORDS SUMMARY | 2024-01-15 19:51 | External Medical Summary | Summary of Care ---
Author Name Unknown Organization [facility] Address [address] [facility] [place] [address] Phone [phone] Care Team Providers Care Big Data Engineer Name Role Phone Kulwinder Byers MD Primary Care Provider [phone] Reason for Visit * Reason Comments Chemotherapy Cytoxan. Medication Administration Xgeva. * Episode Based Medications (Routine) - Authorized Specialty Diagnoses / Procedures Referred By Contac t Referred To Contact Diagnoses Multiple myeloma not having achieved remission (HCC) Procedures ID DARATUMUMAB, HYALURONIDASE ID CYCLOPHOSPHAMIDE 100 MG INJ Jorge Allen MD [address] [place] [address] Anc Hem/Onc Scenery Ritu DEPT CLOSED - 09/27/23 [address] [place] [address] Referral ID Status Reason Start Date Expiration Date V isits Requested Visits Authorized [id number] Authorized 07/23/2022 11/13/2099 999 99 Encounter Details Date Type Department Care Team (Latest Contact Info) Description 11/25/2023 1:45 PM EST Hem/Onc Treatment Hematology/Oncolog y Treatment, [place] [address] [place] [address] Ritu, [...] 30 Tab 0 9 Active nystatin (NYSTOP) 094648 UNIT/GM powder Apply topically to affected area [...] 2:15 PM EST Hem/Onc Treatment Hematology/Oncology Treatment, [address] [place] [phone] Ritu, Chair 5 Hem Onc [facility] [address] [facility] [place] [address] 03/12/2024 3:00 PM EDT Office Visit Hematology/Oncology [address] [address] Mariana Florez CRNP [address] [place] [address] Health Maintenance Due Date Last [...] this encounter Medical Devices Implanted Type Area Corporate Quality Engineer Device Identifier Shelf Expiration Date Model / Serial / Lot Screw Elbow Humeral Total - [id number] Implanted:Qty: 1 on 12/23/2018 by Gautam Jasso MD at OR [facility] Right: Upper Arm [employer] 09/13/20278400-090 -00 / / [id number] Deisi Nexel Total Elbow Implanted:Qty: 1 on 12/23/2018 by Gautam Jasso MD at OR [facility] Right: Upper Arm 04/13/20238400-095 -00 / / [id number] Cement Antibiotic Bone - [id number] Implanted:Qty: 1 on 12/23/2018 by Gautam Jasso MD at OR [facility] Right: Upper Arm RENY : ORTHOPAEDICS 05/13/2020 6197-9-010 / / [id number] Cement Antibiotic Bone - [id number] Implanted:Qty: 1 on 12/23/2018 by Gautam Jasso MD at OR [facility] Right: Upper Arm RENY : ORTHOPAEDICS 05/13/2020 6197-9-010 / / [id number] Stem Compr Srs Mod 1w238tc - [id number] Implanted:Qty: 1 on 12/23/2018 by Gautam Jasso MD at OR [facility] Right: Upper Arm BIOMET : TRAUMA 01/28/2027 [id number] / / [id number] Deisi Nexel Total Elbow Ulnar Component Implanted:Qty: 1 on 12/23/2018 by Gautam Jasso MD at OR [facility] Right: Upper Arm 07/14/20258400-025 -07 / / [id number] Comprehensive Srs/Nexel Distal Body Implanted:Qty: 1 on 12/23/2018 by Gautam Jasso MD at OR [facility] Right: Upper Arm 03/03/2028 [id number] / / [id number] Valve Ricky 3 Ultra 26mm - [id number] Implanted:Qty: 1 on 05/27/2022 by Jesús Weber MD at CARDIAC LABS [facility] [employer] [id number] 03/17/2023 [id number] / / Port Implant W/8f Poly Cath - [id number] Implanted:Qty: 1 on 12/29/2022 by Sudhir Lovett DO at OR [facility] Right: Chest CR BARD : PERIPHERAL VASCULAR [id number] 02/12/2024 [id number] / / [id number] documented as of this encounter Visit Diagnoses [...] Documents on File Type Date Recorded Patient Bi Analyst Expl anation Power of Signal Engineer 12/12/2018 8:46 AM Vipin viveros Power of Signal Engineer Power of Signal Engineer 12/12/2018 8:45 AM Zuleyma ferguson Power of Signal Engineer Latest Code Status on File Code Status [...] the patient have Health Care Power of Signal Engineer? Yes, not currently available Full Code 11/21/2018 8:53 AM 11/21/2018 2:27 PM This or bull reflects the patients wishes and were consensually agreed upon. Care Teams Big Data Engineer Relationship Specialty Start Date End Date Kulwinder Byers MD [address] [place] [address] PCP - General 06/28/03 documented as of this encounter
--- OUTSIDE RECORDS SUMMARY | 2024-01-15 19:51 | External Medical Summary | Summary of Care ---
Author Name Unknown Organization [facility] Address [address] [facility] [place] [address] Phone [phone] Care Team Providers Care Server Software Engineer Name Role Phone Kulwinder Byers MD Primary Care Provider Reason for Visit * Reason Comments Chemotherapy Cytotoxan IV Therapy IVIG * Episode Based Medications (Routine) - Authorized Specialty Diagnoses / Procedures Referred By Contac t Referred To Contact Diagnoses Hypogammaglobulinemia (HCC) Multiple myeloma not having achieved remission (HCC) Procedures RI INJ IVIG PRIVIGEN 500 MG Jorge Allen MD [address] [place] [address] Anc Hem/Onc Scenery Ritu DEPT CLOSED - 09/27/[address] [place] [phone] Referral ID Status Reason Start Date Expiration Date V isits Requested Visits Authorized [id number] Authorized 10/04/2023 11/13/2099 999 999 Encounter Details Date Type Department Care Team (Latest Contact Info) Description 12/09/2023 11:45 AM EST Hem/Onc Treatment Hematology/Oncolo gy Treatment, [place] [address] [place] [phone] Ritu, Chair 5 Hem Onc [address] [place] [address] Hypogammaglobulinemia (HCC)*; Multiple myeloma not having achieved remission (HCC); Encounter for adjustment and management of vascular access device; Encounter for antineoplastic chemotherapy Allergies Active Allergy Reactions Criticality Noted Date Comments Adhesive Tape 05/28/2003 documented as of this encounter (statuses as of 01/05/2024) Medications Medication Sig Dispensed Refills Start Date [...] 30 Tab 0 9 Active nystatin (NYSTOP) 075380 UNIT/GM powder Apply topically to affected area [...] needed for Pain, Breakthrough. 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 IV site removed without issue, catheter tip intact. Pt denies any reportable symptoms at this time. Pt assisted to wheelchair and taken for CXR by Citlaly uDnn LPN. Pt left in stable condition. Dr. Allen aware that no blood returned from port, he will place appropriate IR referral. Goals: Pt will remain free from injury. Possible barriers to meeting goals: Wheelchair, IV lines, Chemo Stability of the patient: Moderately stable - low risk of patient condition declining or worsening Summary regarding today's goals: Met: Pt remained free from harm. documented in this encounter Nursing Notes * Merrick Gross RN - 12/09/2023 4:04 PM EST Late entry: Pt arrived for Cytotoxan/IVIG infusion. Pt port accessed by this RN. Pt c/o of minor burning at port site, readjusted with assistance from Sabine Rico,RN, port flushing well with no symptoms. Pt was no positive for blood return. Upon chart review, no blood return for past two infusions. Spoke with Dr. Allen (see other note from CXR order). 2mg Atp given via port per order. This RN waited 30 minutes after per order to recheck for blood flow. No blood return noted. Atp reinstated into port/line. Chemo agents Cytotoxan Appetite fine Nausea/Vomiting none Diarrhea none Constipation none Mucositis none Fatigue minor Bleeding none Infection none Rash none Numbness tingling none Pain none Radiation none Functional status at today's visit: Capable of only limited selfcare, confined to bed or chair more than 50% of waking hours The drug name, dose, infusion volume, rate and route of administration, expiration date and time, appearance and physical integrity of the drug and rate set on the pump and sequencing of drug administration (as applicable) were verified by me and second sign-in RN. Patient was assessed for symptoms or adverse side effects during treatment. documented in this encounter Plan of Treatment Upcoming Encounters Date Type Department Care Team (Late st Contact Info) Description 01/06/2024 11:45 AM EST Hem/Onc Treatment Hematology/Oncology Treatment, [address] [place] [phone] Ritu, Chair 3 Hem Onc [address] [place] [address] 03/12/2024 3:00 PM EDT Office Visit Hematology/Oncology [facility] [address] [place] [phone] Mariana Florez CRNP [address] [facility] [place] [address] Health Maintenance Due Date Last Done Comments DXA Scan 1940 COVID-19 Vaccine (#1) 1945 Depression Screening 1952 Diabetic Eye Exam 1958 Diabetic Foot Exam 1958 DTaP,Tdap,and Td Vaccines (1 - Tdap) 1959 Zoster Vaccines (1 of 2) 1959 Albumin/Creatinine Ratio 12/11/2021 12/11/2020 Influenza Vaccine (FLU shot) (#1) 2023 HbA1c 04/19/2024 10/19/2023, 11/15, 06/13/2020, Additional history exists GFR 12/29/2024 12/29/2023, 020 06/2024, 12/15/2023, Additional history exists Pneumococcal Vaccine: 65+ Years [...] this encounter Medical Devices Implanted Type Area Inter Fold Roll Cutter Device Identifier Shelf Expiration Date Model / Serial / Lot Screw Elbow Humeral Total - [id number] Implanted:Qty: 1 on 12/23/2018 by Gautam Jasso [place] [facility] [place]: Upper Arm [employer] 09/13/20278400-090 00 / / [id number] Deisi Nexel Total Elbow Implanted:Qty: 1 on 12/23/2018 by Gautam Jasso MD [place] [facility] Right: Upper Arm 04/13/20238400-095 -00 / / [id number] Cement Antibiotic Bone - [id number] Implanted:Qty: 1 on 12/23/2018 by Gautam Jasso MD [place] [facility] Right: Upper Arm RENY : ORTHOPAEDICS 05/13/2020 6197-9-010 / / [id number] Cement Antibiotic Bone - [id number] Implanted:Qty: 1 on 12/23/2018 by Gautam Jasso MD [place] [facility] Right: Upper Arm RENY : ORTHOPAEDICS 05/13/2020 6197-9-010 / / [id number] Stem Compr Srs Mod [id number] - [id number] Implanted:Qty: 1 on 12/23/2018 by Gautam Jasso MD [place] [facility] Right: Upper Arm BIOMET : TRAUMA 01/28/2027 [id number] / / [id number] Deisi Nexel Total Elbow Ulnar Component Implanted:Qty: 1 on 12/23/2018 by Gautam Jasso MD [place] [facility] Right: Upper Arm 07/14/2025 00-8400-025 -07 / / [id number] Comprehensive Srs/Nexel Distal Body Implanted:Qty: 1 on 12/23/2018 by Gautam Jasso MD at [place] [facility] Right: Upper Arm 03/03/2028 [id number] / / [id number] Valve Ricky 3 Ultra 26mm - [id number] Implanted:Qty: 1 on 05/27/2022 by Jesús Weber MD at [facility] [employer] [id number] 03/17/2023 [id number] / / Port Implant W/8f Poly Cath - [id number] Implanted:Qty: 1 on 12/29/2022 by Sudhir Lovett DO at OR [facility] Right: Chest CR BARD : PERIPHERAL VASCULAR [id number] 02/12/2024 [id number] / / [id number] documented as of this encounter Visit Diagnoses Diagnosis Hypogammaglobulinemia (HCC)- Primary Hypogammaglobulinaemia, unspecified Multiple myeloma not having achieved remission (HCC) Multiple myeloma, without mention of having achieved remission Encounter for adjustment and management of vascular access device Encounter for antineoplastic chemotherapy documented in this encounter Administered Medications Inactive Administered Medications - up to 3 most recent administrations Medication Order MAR Action Action Date Dose Rate Site Alteplase (Cathflo Activase) inj 2 mg 2 mg, IV Push, ONCE, On Tue12/09/23 at 1330, For 1 dose, Reconstitute Alteplase (CathFlo Activase) 2mg in 2.2ml sterile water. Do not use Bacteriostatic Water for injection. Instill the 2.2 mL of Sterile Water for Injection, JAIL, into the vial, directing the diluent stream into the powder. Slight foaming is not unusual; let the vial stand undisturbed to allow large bubbles to dissipate. Mix by gently whirling until the contents are completely dissolved, complete dissolution should occur within 3 minutes. DO NOT SHAKE! The reconstituted preparation resulting in a colorless to pale yellow transparent solution containing 1m/1mL Cathflow Activase at a pH of approximately 7.3. The solution may be used for intracatheter instillation within 8 hours following reconstitution when stored at 2-30 degrees C. Given 12/09/2023 1:55 PM EST 2 mg cycloPHOSphamide (Cytoxan) 620 mg in NSS 250 mL infusion 620 mg (rounded from 621 mg = 300 mg/m2 2.07 m2 Treatment Plan BSA from Recorded weight), IV Piggyback, at 500 mL/hr, Cyclophosphamide doses over 1g should be in 500 mL. May extend infusion to 1 hour if not tolerated., ONCE, 1 dose, On Tue12/09/23 at 1315 Start Infusion 12/09/2023 2:51 PM EST 620 mg 500 mL/hr diphenhydrAMINE (Benadryl) cap 25 mg 25 mg, Oral, ONCE PRN Other, Fever/Chills, Starting on Tue12/09/23 at 1236, Until Tue12/09/23 at 2033, For 24 hours, 4 hours after initial dose Given 12/09/2023 12:51 PM EST 25 mg Immune Globulin Human- IVIG 10% (Privigen) IV 20 g 20 g, IV Piggyback, ONCE, 1 dose, On Tue12/09/23 at 1315, Total dose = 30 gm Dispensed as __1_ x 10 gram bottle(s), _1__x 20 gram bottle(s), PRIVIGEN Infusion Instructions Infusion Rate 0.005 mL/kg/min = 21 mL/hour for 15 minutes, VTBI = 5 mLs 0.01 mL/kg/min = 42 mL/hour for 15 minutes, VTBI = 10 mLs 0.02 mL/kg/min = 84 mL/hour for 15 minutes, VTBI = 21 mLs 0.04 mL/kg/min = 167 mL/hour for 15 minutes, VTBI = 42 mLs 0.08 mL/kg/min = 335 mL/hour until finished, VTBI = 222 mLs Estimated Infusion duration = 1.7 hours Start Infusion 12/09/2023 2:06 PM EST 20 g 335 mL/hr Immune Globulin Human-IVIG 10% (Privigen) IV 10 g 10 g, IV Piggyback, ONCE, 1 dose, On Tue12/09/23 at 1315, Total dose = 30 gm Dispensed as __1_ x 10 gram bottle(s), _1__x 20 gram bottle(s), PRIVIGEN Infusion Instructions Infusion Rate 0.005 mL/kg/min = 21 mL/hour for 15 minutes, VTBI = 5 mLs 0.01 mL/kg/min = 42 mL/hour for 15 minutes, VTBI = 10 mLs 0.02 mL/kg/min = 84 mL/hour for 15 minutes, VTBI = 21 mLs 0.04 mL/kg/min = 167 mL/hour for 15 minutes, VTBI = 42 mLs 0.08 mL/kg/min = 335 mL/hour until finished, VTBI = 222 mLs Estimated Infusion duration = 1.7 hours Rate Change 12/09/2023 2:00 PM EST 335 mL/hr Rate Change 12/09/2023 1:45 PM EST 167 mL/hr Rate Change 12/09/2023 1:30 PM EST 84 mL/hr NSS infusion 500 mL, Intravenous, at 50 mL/hr, CONTINUOUS, Starting on Tue12/09/23 at 1345, Until Tue12/09/23 at 2033 Start Infusion 12/09/2023 12:52 PM EST 500 mL 50 mL/hr ondansetron (Zofran) tab 8 mg 8 mg, Oral, ONCE, On Tue12/09/23 at 1315, For 1 dose Given 12/09/2023 12:57 PM EST 8 mg documented in this encounter Advance Directives Documents on File Type Date Recorded Patient Pie Filler Expl anation Power of Hose Seamer 12/12/2018 8:46 AM Vipin viveros Power of Hose Seamer Power of Hose Seamer 12/12/2018 8:45 AM Zuleyma ferguson Power of Hose Seamer Latest Code Status on File Code Status [...] the patient have Health Care Power of Hose Seamer? Yes, not currently available Full Code 11/21/2018 8:53 AM 11/21/2018 2:27 PM This or bull reflects the patients wishes and were consensually agreed upon. Care Teams Server Software Engineer Relationship Specialty Start Date End Date Kulwinder Byers MD [address] [place] [address] PCP - General 06/28/03 documented as of this encounter
--- OUTSIDE RECORDS SUMMARY | 2024-01-15 19:51 | External Medical Summary | Summary of Care ---
Author Name Unknown Organization [facility] [address] [facility] [address] Phone [phone] Care Team Providers Care Asphalt Smoother Name Role Phone Kulwinder Byers MD Primary Care Provider [phone] Reason for Visit * Reason Comments Chemotherapy C14D15 Cytoxan IV Therapy C4D1 Privigen * Episode Based Medications (Routine) - Authorized Specialty Diagnoses / Procedures Referred By Contac t Referred To Contact Diagnoses Hypogammaglobulinemia (HCC) Multiple myeloma not having achieved remission (HCC) Procedures DE INJ IVIG PRIVIGEN 500 MG Jorge Allen MD [address] [place] [address] Anc Hem/Onc [facility] DEPT CLOSED - 09/27/23 [address] [place] [address] Referral ID Status Reason Start Date Expiration Date V isits Requested Visits Authorized [id number] Authorized 10/04/2023 11/13/2099 999 999 Encounter Details Date Type Department Care Team (Latest Contact Info) Description 01/06/2024 11:45 AM EST Hem/Onc Treatment Hematology/Oncolog y Treatment, [place] [address] [place] [address] Ritu, Chair 3 Hem Onc [address] [place] [address] Multiple myeloma not having achieved remission (HCC)*; Hypogammaglobulinemia (HCC); Encounter for antineoplastic chemotherapy Allergies Active Allergy [...] 30 Tab 0 12/25/2018 Active nystatin (NYSTOP) 454401 UNIT/GM powder Apply topically to affected area [...] Sign Reading Time Taken Comments Blood Pressure 157/62 01/06/2024 11:27 AM EST Pulse 60 01/06/2024 11:27 AM EST Temperature 37 C (98.6 F) 01/06/2024 11: 27 AM EST Respiratory Rate 18 01/06/2024 11:2 7 AM EST Oxygen Saturation 93% 01/06/2024 11: 27 AM EST Inhaled Oxygen Concentration - - Weight 111.9 kg (246 lb 9.6 oz) 024 11:27 AM EST Height - - Body Mass Index 49.71 12/28/2023 10:14 AM EST documented in this encounter Functional Status [...] as of this encounter Nursing Notes * Aide Browning RN - 01/06/2024 12:58 PM EST Chair 8 Chemo agents Cytoxan Appetite good Nausea/Vomiting no Diarrhea no Constipation no Mucositis no Fatigue yes, tires easily, rests as needed Bleeding no Infection no Rash no Numbness tingling no Pain no Radiation no ABN Labs WNL for treatment Alt in Tx: no Return in 1 week Pt also due for privigen today. She states she's doing well and denies any acute concerns. Using clinic wheelchair. Safety and Risk for Injury Patient will remain free from injury. Ensure appropriate safety devices are available. Provide and maintain safe environment. Functional status at today's visit: Ambulatory and [...] symptoms or adverse side effects during treatment. Goals: Patient will remain free from injury. Possible barriers to meeting goals: ambulation with IV pole, tires easily and uses wheelchair in clinic Stability of the patient: Moderately unstable - medium risk of patient condition declining or worsening Summary regarding today's goals: Met: Pt remained free of injury during treatment Patient tolerated treatment well and was discharged in stable condition. No coverage needed today. documented in this encounter Plan of Treatment Upcoming Encounters Date Type Department Care Team (Late st Contact Info) Description 01/13/2024 2:15 PM EST Hem/Onc Treatment Hematology/Oncology Treatment, [place] [address] [facility] [phone] Ritu, Chair [address] [facility] [address] [facility] [place] [address] 03/12/2024 3:00 PM EDT Office Visit Hematology/Oncology [facility] [place] [address] [facility] [place] [address] Mariana Florez CRNP [address] [facility] [place] [address] Health Maintenance Due Date Last Done Comments [...] this encounter Medical Devices Implanted Type Area Decoration Checker Device Identifier Shelf Expiration Date Model / Serial / Lot Screw Elbow Humeral Total - [id number] Implanted:Qty: 1 on 12/23/2018 by Gautam Jasso MD at [place] [facility] Right: Upper Arm [employer] 09/13/2027-0 / / [id number] Deisi Nexel Total Elbow Implanted:Qty: 1 on 12/23/2018 by Gautam Jasso MD at OR [facility] Right: Upper Arm 04/13/2023-09 / / [id number] Cement Antibiotic Bone - [id number] Implanted:Qty: 1 on 12/23/2018 by Gautam Jasso MD at OR [facility] Right: Upper Arm RENY : ORTHOPAEDICS 05/13/2020 6197-9-010 / / [id number] Cement Antibiotic Bone - [id number] Implanted:Qty: 1 on 12/23/2018 by Gautam Jasso MD at OR [facility] Right: Upper Arm RENY : ORTHOPAEDICS 05/13/2020 6197-9-010 / / [id number] Stem Compr Srs Mod [id number] - [id number] Implanted:Qty: 1 on 12/23/2018 by Gautam Jasso MD at OR [facility] Right: Upper Arm BIOMET : TRAUMA 01/28/2027 [id number] / / [id number] Deisi Nexel Total Elbow Ulnar Component Implanted:Qty: 1 on 12/23/2018 by Gautam Jasso MD at OR [facility] Right: Upper Arm 07/14/202500-025 -07 / / [id number] Comprehensive Srs/Nexel Distal Body Implanted:Qty: 1 on 12/23/2018 by Gautam Jasso MD at OR [facility] Right: Upper Arm 03/03/2028 [id number] / / [id number] Valve Ricky 3 Ultra 26mm - [id number] Implanted:Qty: 1 on 05/27/2022 by Jesús Weber MD at CARDIAC LABS [facility] [employer] [id number] 03/17/2023 [id number] / / Port Implant W/8f Poly Cath - [id number] Implanted:Qty: 1 on 12/29/2022 by Sudhir Lovett DO at OR [facility] Right: Chest CR BARD : PERIPHERAL VASCULAR [id number] 02/12/2024 [id number] / / [id number] documented as of this encounter Visit Diagnoses Diagnosis Multiple myeloma not having achieved remission (HCC)- Primary Multiple myeloma, without mention of having achieved remission Hypogammaglobulinemia (HCC) Hypogammaglobulinaemia, unspecified Encounter for antineoplastic chemotherapy documented in this encounter Administered Medications Active Administered Medications - up to 3 most recent administrations Medication Order MAR Action Action Date Dose Rate Site Acetaminophen (Tylenol) tab 650 mg 650 mg, Oral, ONCE PRN If previous infusion reaction with IVIG, Starting on Tue01/06/24 at 1245, Until Discontinued, Maximum of 4 grams (4000 mg) per day. Acetaminophen (Tylenol) tab 650 mg 650 mg, Oral, ONCE PRN Other, or Chills, Starting on Tue01/06/24 at 1141, Until 01/07/24 at 1140, For 24 hours, Maximum of 4 grams (4000 mg) per day. 4 hours after initial dose. Given 01/06/2024 11:54 AM EST 650 mg diphenhydrAMINE (Benadryl) cap 25 mg 25 mg, Oral, ONCE PRN If previous infusion reaction with IVIG, Starting on Tue01/06/24 at 1245, Until Discontinued diphenhydrAMINE (Benadryl) cap 25 mg 25 mg, Oral, ONCE PRN Other, Fever/Chills, Starting on Tue01/06/24 at 1141, Until 01/07/24 at 1140, For 24 hours, 4 hours after initial dose Given 01/06/2024 11:54 AM EST 25 mg diphenhydrAMINE (Benadryl) inj 50 mg 50 mg, IV Push, ONCE PRN Other, Hypersensitivity Reaction, Starting on Tue01/06/24 at 1141, Until 01/07/24 at 1140, For 24 hours diphenhydrAMINE (Benadryl) inj 50 mg 50 mg, IV Push, ONCE PRN Other, Hypersensitivity Reaction, Starting on Tue01/06/24 at 1141, Until 01/07/24 at 1140, For 24 hours EPINEPHrine 1 MG/ML inj 0.3 mg 0.3 mg, Intramuscular, ONCE PRN Other, Hypersensitivity Reaction or Anaphylaxis, Starting on Tue01/06/24 at 1141, Until 01/07/24 at 1140, For 24 hours EPINEPHrine 1 MG/ML inj 0.3 mg 0.3 mg, Intramuscular, ONCE PRN Other, Hypersensitivity Reaction or Anaphylaxis, Starting on Tue01/06/24 at 1141, Until 01/07/24 at 1140, For 24 hours hEParin 100 UNIT/ML Lock Flush inj 500 Units 500 Units (5 mL), IV Lock, PRN Other, IV Flush, Starting on Tue01/06/24 at 1141, Until 01/07/24 at 1140, For 24 hours, Do not flush if lock, PICC, or central line not in place; IV infusing or unable to flush. hEParin 100 UNIT/ML Lock Flush inj 500 Units 500 Units (5 mL), IV Lock, PRN Other, IV Flush, Starting on Tue01/06/24 at 1141, Until 01/07/24 at 1140, For 24 hours, Do not flush if lock, PICC, or central line not in place; IV infusing or unable to flush. Given 01/06/2024 2:39 PM EST 500 Units Hydrocortisone Sod Suc (PF) (Solu-Cortef) inj 100 mg 100 mg, IV Push, ONCE PRN Other, Hypersensitivity Reaction, Starting on Tue01/06/24 at 1141, Until 01/07/24 at 1140, For 24 hours Hydrocortisone Sod Suc (PF) (Solu-Cortef) inj 100 mg 100 mg, IV Push, ONCE PRN Other, Hypersensitivity Reaction, Starting on Tue01/06/24 at 1141, Until 01/07/24 at 1140, For 24 hours NSS infusion 500 mL, Intravenous, at 50 mL/hr, CONTINUOUS, Starting on Tue01/06/24 at 1245, Until Tue01/06/24 at 2244 Start Infusion 01/06/2024 11:38 AM EST 500 mL 50 mL/hr oxygen GAS Inhalation, OXYGEN, First dose on Tue01/06/24 at 1600, Until Discontinued, Device/Managed by: Low Flow Device, Goal SPO2 (%): 91-95, Starting Device: Nasal Cannula, Initial Flow Rate (LPM): 2, Lowest Support: Nasal Cannula: Flow 0-6 LPM. Titrate up/down by 1 LPM., Higher Support: Non-Rebreather (NRB) Mask: Minimum of 10 LPM. Titrate to maintain bag inflation., Titration Interval: Q2 minutes and as needed., Notify Provider: For sudden DECREASE in resting SPO2 to less than 85% and when escalating delivery device. sodium chloride 0.9 % flush central line 10 mL 10 mL, IV Push, PRN Other, IV Flush, Starting on Tue01/06/24 at 1141, Until 01/07/24 at 1140, For 24 hours, Do not flush if lock, PICC, or central line not in place; IV infusing or unable to flush. sodium chloride 0.9 % flush central line 10 mL 10 mL, IV Push, PRN Other, IV Flush, Starting on Tue01/06/24 at 1141, Until 01/07/24 at 1140, For 24 hours, Do not flush if lock, PICC, or central line not in place; IV infusing or unable to flush. Given 01/06/2024 2:39 PM EST 10 mL Inactive Administered Medications [...] if not tolerated., ONCE, 1 dose, On Tue01/06/24 at 1215 Start Infusion 01/06/2024 12:16 PM EST 620 mg 500 mL/hr Immune Globulin Human- IVIG 10% (Privigen) IV 20 g 20 g, IV Piggyback, ONCE, 1 dose, On Tue01/06/24 at 1215, Total dose = 30 gm Dispensed as [...] Infusion duration = 1.7 hours Start Infusion 01/06/2024 2:01 PM EST 20 g 335 mL/hr Immune Globulin Human-IVIG 10% (Privigen) IV 10 g 10 g, IV Piggyback, ONCE, 1 dose, On Tue01/06/24 at 1215, Total dose = 30 gm Dispensed as [...] Infusion duration = 1.7 hours Rate Change 01/06/2024 1:55 PM EST 335 mL/hr Rate Change 01/06/2024 1:40 PM EST 167 mL/hr Rate Change 01/06/2024 1:25 PM EST 84 mL/hr ondansetron (Zofran) tab 8 mg 8 mg, Oral, ONCE, On Tue01/06/24 at 1215, For 1 dose Given 01/06/2024 11:54 AM EST 8 mg documented in this encounter Advance Directives Documents on File Type Date Recorded 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 Yes, not currently available Full Code 11/21/2018 8:53 AM 11/21/2018 2:27 PM This or bull reflects the patients wishes and were consensually agreed upon. Care Teams Asphalt Smoother Relationship Specialty Start Date End Date Kulwinder Byers MD [address] [place] [address] PCP - General 06/28/03 documented as of this encounter
--- OUTSIDE RECORDS SUMMARY | 2024-01-15 19:52 | External Medical Summary | Summary of Care ---
Author Name Unknown Organization [facility] Address [address] [facility] [place] [address] Phone [phone] Care Team Providers Care Chronometer Tester Name Role Phone Kulwinder Byers MD Primary Care Provider [phone] Reason for Visit * Reason Comments Chemotherapy Cytotoxan IV Therapy IVIG * Episode Based Medications (Routine) - Authorized Specialty Diagnoses / Procedures Referred By Contac t Referred To Contact Diagnoses Hypogammaglobulinemia (HCC) Multiple myeloma not having achieved remission (HCC) Procedures [place] INJ IVIG PRIVIGEN 500 MG Jorge Allen MD [address] [place] [address] Anc Hem/Onc Scenery Ritu DEPT CLOSED - 09/27/[address] [place] [address] Referral ID Status Reason Start Date Expiration Date V isits Requested Visits Authorized [id number] Authorized 10/04/2023 11/13/2099 999 999 Encounter Details [...] as of this encounter (statuses as of 01/04/2024) Medications Medication Sig Dispensed Refills Start Date [...] 30 Tab 0 9 Active nystatin (NYSTOP) 972995 UNIT/GM powder Apply topically to affected area [...] as of this encounter (statuses as of 01/04/2024) Active Problems Problem Noted Date Diagnosed Date [...] as of this encounter (statuses as of 01/04/2024) Resolved Problems Problem Noted Date Diagnosed Date 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 Pt left in stable condition. Dr. [...] 11:45 AM EST Hem/Onc Treatment Hematology/Oncology Treatment, [address] [place] [phone] Ritu, Chair 3 Hem Onc [address] [place] [address] 03/12/2024 3:00 PM EDT Office Visit Hematology/Oncology [facility] [address] [place] [address] Mariana Florez CRNP [facility] [place] [address] Health Maintenance Due [...] this encounter Medical Devices Implanted Type Area Egg Producer Device Identifier Shelf Expiration Date Model / Serial / Lot Screw Elbow Humeral Total - [id number] Implanted:Qty: 1 on 12/23/2018 by Gautam Jasso MD [place] [facility] [place]: Upper Arm [employer] 09/13/20278400-090 00 / / [id number] Deisi Nexel Total Elbow Implanted:Qty: 1 on 12/23/2018 by Gautam Jasso MD [place] [facility] [place]: Upper Arm 04/13/20238400-095 -00 / / [id number] Cement Antibiotic Bone - [id number] Implanted:Qty: 1 on 12/23/2018 by Gautam Jasso MD at [place] [facility] Right: Upper Arm RENY : ORTHOPAEDICS 05/13/2020 6197-9-010 / / [id number] Cement Antibiotic Bone - [id number] Implanted:Qty: 1 on 12/23/2018 by Gautam Jasso MD [place] [facility] [place]: Upper Arm RENY : ORTHOPAEDICS 05/13/2020 6197-9-010 / / [id number] Stem Compr Srs Mod [id number] - [id number] Implanted:Qty: 1 on 12/23/2018 by Gautam Jasso MD at [place] [facility] Right: Upper Arm BIOMET : TRAUMA 01/28/2027 [id number] / / [id number] Deisi Nexel Total Elbow Ulnar Component Implanted:Qty: 1 on 12/23/2018 by Gautam Jasso MD at [place] [facility] Right: Upper Arm 07/14/2025 00-8400-025 -07 / / [id number] Comprehensive Srs/Nexel Distal Body Implanted:Qty: 1 on 12/23/2018 by Gautam Jasso MD at [place] [facility] Right: Upper Arm 03/03/2028 [id number] / / [id number] Valve Ricky 3 Ultra 26mm - [id number] Implanted:Qty: 1 on 05/27/2022 by Jesús Weber MD at [facility] [employer] [id number] 03/17/2023 [id number] / / Port Implant W/8f Poly Cath - [id number] Implanted:Qty: 1 on 12/29/2022 by Sudhir Lovett DO at OR [facility] Right: Chest CR BARD : PERIPHERAL VASCULAR [id number] 02/12/2024 [id number] / / [id number] documented as of this encounter Visit Diagnoses [...] 2.2 mL of Sterile Water for Injection, HALFWAY, into the vial, directing the diluent stream [...] Documents on File Type Date Recorded Patient Outside Installer Apprentice Expl anation Power of Green End Worker 12/12/2018 8:46 AM Vipin viveros Power of Green End Worker Power of Green End Worker 12/12/2018 8:45 AM Zuleyma ferguson Power of Green End Worker Latest Code Status on File Code Status [...] the patient have Health Care Power of Green End Worker? Yes, not currently available Full Code 11/21/2018 8:53 AM 11/21/2018 2:27 PM This or bull reflects the patients wishes and were consensually agreed upon. Care Teams Chronometer Tester Relationship Specialty Start Date End Date Kulwinder Byers MD [address] [place] [address] PCP - General 06/28/03 documented as of this encounter
--- OUTSIDE RECORDS SUMMARY | 2024-01-15 19:52 | External Medical Summary ---
Author Name Unknown Address Unknown Organization K01:[facility] [place] [address] [facility] [place] [address] Laboratory Report Ordering Provider Test Date Status WOOD CANTU 01/05/2024 15:30:00 Final Observation Date Value Abnormality Reference (Units ) Status SYNC LEUKOCYTES IN BLOOD BY AUTOMATED COUNT 01/05/2024 15:30:00 4.10 4.00-10.80 (K/uL) Final Segs 01/05/2024 15:30:00 87.5 Above high normal 40.0-75.0 (%) Final Lymphs % 01/05/2024 15:30:00 2.7 Below low normal 18.0-42.0 (%) Final Monos 01/05/2024 15:30:00 7.1 1.0-11.0 (%) Final Eosinophils 01/05/2024 15:30:00 1.0 0.0-6.0 (%) Final Basos 01/05/2024 15:30:00 0.5 0.0-2.0 (%) Final Immature Granulocyte, Percent 01/05/2024 15:30:00 1.2 0.0-2.0 (%) Final Absolute Segs 01/05/2024 15:30:00 3.59 1.80-7.70 (K/uL) Final Lymphs, absolute 01/05/2024 15:30:00 0.11 Below low normal 1.00-4.80 (K/ul) Final Monos, Abs 01/05/2024 15:30:00 0.29 0.00-1.10 (K/uL) Final Eos, Abs 01/05/2024 15:30:00 0.04 0.00-0.70 (K/uL) Final Basos, Abs 01/05/2024 15:30:00 0.02 0.00-0.20 (K/uL) Final Immature Granulocytes, Number 01/05/2024 15:30:00 0.05 0.00-0.20 (K/uL) Final Performing Location [facility] [place] [facility] [address] [facility] [address]
--- OUTSIDE RECORDS SUMMARY | 2024-01-15 19:52 | External Medical Summary | Summary of Care ---
Author Name Unknown Organization [facility] Address [address] [facility] [place] [address] Phone [phone] Care Team Providers Care Patient Navigator Name Role Phone Kulwinder Byers MD Primary Care Provider [phone] Reason for Visit * Reason Comments Chemotherapy Cytotoxan IV Therapy IVIG * Episode Based Medications (Routine) - Authorized Specialty Diagnoses / Procedures Referred By Contac t Referred To Contact Diagnoses Hypogammaglobulinemia (HCC) Multiple myeloma not having achieved remission (HCC) Procedures [place] INJ IVIG PRIVIGEN 500 MG Jogre Allen MD [address] [place] [address] Anc Hem/Onc Scenery Ritu DEPT CLOSED - 09/27/[address] [place] [address] Referral ID Status Reason Start Date Expiration Date V isits Requested Visits Authorized [id number] Authorized 10/04/2023 11/13/2099 999 999 Encounter Details [...] 30 Tab 0 9 Active nystatin (NYSTOP) 813707 UNIT/GM powder Apply topically to affected area [...] at port site, readjusted with assistance from Sabnie Rico,RN, port flushing well with no symptoms. [...] 11:45 AM EST Hem/Onc Treatment Hematology/Oncology Treatment, [address] [place] [phone] Ritu, Chair 3 Hem Onc [address] [place] [address] 03/12/2024 3:00 PM EDT Office Visit Hematology/Oncology [facility] [address] [place] [address] Mariana Florez CRNP [address] [facility] [place] [address] Health Maintenance Due Date [...] this encounter Medical Devices Implanted Type Area Crude Oil Driver Device Identifier Shelf Expiration Date Model / Serial / Lot Screw Elbow Humeral Total - [id number] Implanted:Qty: 1 on 12/23/2018 by Gautam Jasso MD [place] [facility] [place]: Upper Arm [employer] 09/13/20278400-090 00 / / [id number] Deisi Nexel Total Elbow Implanted:Qty: 1 on 12/23/2018 by Gautam Jasso MD at [place] [facility] Right: Upper Arm 04/13/20238400-095 -00 / / [id number] Cement Antibiotic Bone - [id number] Implanted:Qty: 1 on 12/23/2018 by Gautam Jasso MD at [place] [facility] Right: Upper Arm RENY : ORTHOPAEDICS 05/13/2020 6197-9-010 / / [id number] Cement Antibiotic Bone - [id number] Implanted:Qty: 1 on 12/23/2018 by Gautam Jasso MD at [place] [facility] Right: Upper Arm ERNY : ORTHOPAEDICS 05/13/2020 6197-9-010 / / [id number] Stem Compr Srs Mod [id number] - [id number] Implanted:Qty: 1 on 12/23/2018 by Gautam Jasso MD at [place] [facility] Right: Upper Arm BIOMET : TRAUMA 01/28/2027 [id number] / / [id number] Deisi Nexel Total Elbow Ulnar Component Implanted:Qty: 1 on 12/23/2018 by Gautam Jasso MD at [place] [facility] Right: Upper Arm 07/14/2025 00-8400-025 -07 / / [id number] Comprehensive Srs/Nexel Distal Body Implanted:Qty: 1 on 12/23/2018 by Gautam Jasso MD at [place] [facility] Right: Upper Arm 03/03/2028 [id number] / / [id number] Valve Ricky 3 Ultra 26mm - [id number] Implanted:Qty: 1 on 05/27/2022 by Jesús Weber MD at [facility] [employer] [id number] 03/17/2023 [id number] / / Port Implant W/8f Poly Cath - [id number] Implanted:Qty: 1 on 12/29/2022 by Sudhir Lovett DO at OR [facility] Right: Chest CR BARD : PERIPHERAL VASCULAR [id number] 02/12/2024 [id number] / / [id number] documented as of this encounter Visit Diagnoses [...] 2.2 mL of Sterile Water for Injection, RETIREMENT, into the vial, directing the diluent stream [...] Documents on File Type Date Recorded Patient Senior Investigator Expl anation Power of Stacker Operator 12/12/2018 8:46 AM Vipin viveros Power of Stacker Operator Power of Stacker Operator 12/12/2018 8:45 AM Zuleyma ferguson Power of Stacker Operator Latest Code Status on File Code Status [...] the patient have Health Care Power of Stacker Operator? Yes, not currently available Full Code 11/21/2018 8:53 AM 11/21/2018 2:27 PM This or bull reflects the patients wishes and were consensually agreed upon. Care Teams Patient Navigator Relationship Specialty Start Date End Date uKlwinder Byers MD [address] [place] [address] PCP - General 06/28/03 documented as of this encounter
--- OUTSIDE RECORDS SUMMARY | 2024-01-15 19:52 | External Medical Summary | Summary of Care ---
Author Name Unknown Organization [facility] Address [address] [facility] [place] [address] Phone [phone] Care Team Providers Care Blending Plant Operator Name Role Phone Kulwinder Byers MD Primary Care Provider Reason for Visit * Reason Comments Chemotherapy Cytotoxan IV Therapy IVIG * Episode Based Medications (Routine) - Authorized Specialty Diagnoses / Procedures Referred By Contac t Referred To Contact Diagnoses Hypogammaglobulinemia (HCC) Multiple myeloma not having achieved remission (HCC) Procedures SC INJ IVIG PRIVIGEN 500 MG Jorge Allen MD [address] [place] [address] Anc Hem/Onc Scenery Ritu DEPT CLOSED - 09/27/[address] [place] [address] Referral ID Status Reason Start Date Expiration Date V isits Requested Visits Authorized [id number] Authorized 10/04/2023 11/13/2099 999 999 Encounter Details [...] 30 Tab 0 9 Active nystatin (NYSTOP) 828894 UNIT/GM powder Apply topically to affected area [...] 11:45 AM EST Hem/Onc Treatment Hematology/Oncology Treatment, [address] [place] [phone] Ritu, Chair 3 Hem Onc [address] [place] [address] 03/12/2024 3:00 PM EDT Office Visit Hematology/Oncology [facility] [address] [place] [address] Mariana Florez CRNP 400 [facility] [place] [address] Health Maintenance [...] this encounter Medical Devices Implanted Type Area Farmworker Pullet Farm Device Identifier Shelf Expiration Date Model / Serial / Lot Screw Elbow Humeral Total - [id number] Implanted:Qty: 1 on 12/23/2018 by Gautam Jasso MD at [place] [facility] Right: Upper Arm [employer] INC 09/13/20278400-090 00 / / [id number] Deisi Nexel Total Elbow Implanted:Qty: 1 on 12/23/2018 by Gautam Jasso MD at OR [facility] Right: Upper Arm 04/13/20238400-095 -00 / / [id number] Cement Antibiotic Bone - [id number] Implanted:Qty: 1 on 12/23/2018 by Gautam Jasso MD at OR [facility] Right: Upper Arm RENY : ORTHOPAEDICS 05/13/2020 6197-9-010 / / [id number] Cement Antibiotic Bone - [id number] Implanted:Qty: 1 on 12/23/2018 by Gautam Jasso MD at OR [facility] Right: Upper Arm RENY : ORTHOPAEDICS 05/13/2020 6197-9-010 / / [id number] Stem Compr Srs Mod 3q068kl - [id number] Implanted:Qty: 1 on 12/23/2018 by Gautam Jasso MD at OR [facility] Right: Upper Arm BIOMET : TRAUMA 01/28/2027 [id number] / / [id number] Deisi Nexel Total Elbow Ulnar Component Implanted:Qty: 1 on 12/23/2018 by Gautam Jasso MD at OR [facility] Right: Upper Arm 07/14/2025 00-8400-025 -07 / / [id number] Comprehensive Srs/Nexel Distal Body Implanted:Qty: 1 on 12/23/2018 by Gautam Jasso MD at OR [facility] Right: Upper Arm 03/03/2028 [id number] / / [id number] Valve Ricky 3 Ultra 26mm - [id number] Implanted:Qty: 1 on 05/27/2022 by Jesús Weber MD at [facility] [employer] [id number] 03/17/2023 [id number] / / Port Implant W/8f Poly Cath - [id number] Implanted:Qty: 1 on 12/29/2022 by Sudhir Lovett DO at OR [facility] Right: Chest CR BARD : PERIPHERAL VASCULAR [id number] 02/12/2024 [id number] / / [id number] documented as of this encounter Visit Diagnoses [...] 2.2 mL of Sterile Water for Injection, FDC, into the vial, directing the diluent stream [...] Documents on File Type Date Recorded Patient Director Of Archives Expl anation Power of Roller Embosser 12/12/2018 8:46 AM Vipin viveros Power of Roller Embosser Power of Roller Embosser 12/12/2018 8:45 AM Zuleyma ferguson Power of Roller Embosser Latest Code Status on File Code Status [...] the patient have Health Care Power of Roller Embosser? Yes, not currently available Full Code 11/21/2018 8:53 AM 11/21/2018 2:27 PM This or bull reflects the patients wishes and were consensually agreed upon. Care Teams Blending Plant Operator Relationship Specialty Start Date End Date Kulwinder Byers MD [address] [place] [address] PCP - General 06/28/03 documented as of this encounter
--- OUTSIDE RECORDS SUMMARY | 2024-01-15 19:52 | External Medical Summary | Summary of Care ---
Author Name Unknown Organization [facility] Address [address] [facility] [place] [address] Phone [phone] Care Team Providers Care Triage Clinician Name Role Phone Kulwinder Byers MD Primary Care Provider Reason for Visit * Reason Comments Chemotherapy Cytotoxan IV Therapy IVIG * Episode Based Medications (Routine) - Authorized Specialty Diagnoses / Procedures Referred By Contac t Referred To Contact Diagnoses Hypogammaglobulinemia (HCC) Multiple myeloma not having achieved remission (HCC) Procedures AK INJ IVIG PRIVIGEN 500 MG Jorge Allen MD [address] [place] [address] Anc Hem/Onc Scenery Ritu DEPT CLOSED - 09/27/[address] [place] [phone] Referral ID Status Reason Start Date Expiration Date V isits Requested Visits Authorized [id number] Authorized 10/04/2023 11/13/2099 999 999 Encounter Details [...] 30 Tab 0 9 Active nystatin (NYSTOP) 869126 UNIT/GM powder Apply topically to affected area [...] 11:45 AM EST Hem/Onc Treatment Hematology/Oncology Treatment, [address] [place] [phone] Ritu, Chair 3 Hem Onc [address] [place] [address] 03/12/2024 3:00 PM EDT Office Visit Hematology/Oncology [facility] [address] [place] [address] Mariana Florez CRNP 400 [facility] [place] [address] Health Maintenance Due Date Last Done [...] this encounter Medical Devices Implanted Type Area Char Conveyor Tender Cellar Device Identifier Shelf Expiration Date Model / Serial / Lot Screw Elbow Humeral Total - [id number] Implanted:Qty: 1 on 12/23/2018 by Gautam Jasso MD at OR [facility] Right: Upper Arm [employer] 09/13/20278400-090 00 / / [id number] Deisi Nexel Total Elbow Implanted:Qty: 1 on 12/23/2018 by Gautam Jasso MD at OR [facility] Right: Upper Arm 04/13/20238400-095 -00 / / [id number] Cement Antibiotic Bone - [id number] Implanted:Qty: 1 on 12/23/2018 by Gautam Jasso MD at OR [facility] Right: Upper Arm RENY : ORTHOPAEDICS 05/13/2020 6197-9-010 / / [id number] Cement Antibiotic Bone - [id number] Implanted:Qty: 1 on 12/23/2018 by Gautam Jasso MD at OR [facility] Right: Upper Arm RENY : ORTHOPAEDICS 05/13/2020 6197-9-010 / / [id number] Stem Compr Srs Mod [id number] - [id number] Implanted:Qty: 1 on 12/23/2018 by Gautam Jasso MD at OR [facility] Right: Upper Arm BIOMET : TRAUMA 01/28/2027 [id number] / / [id number] Deisi Nexel Total Elbow Ulnar Component Implanted:Qty: 1 on 12/23/2018 by Gautam Jasso MD at OR [facility] Right: Upper Arm 07/14/2025 00-8400-025 -07 / / [id number] Comprehensive Srs/Nexel Distal Body Implanted:Qty: 1 on 12/23/2018 by Gautam Jasso MD at OR [facility] Right: Upper Arm 03/03/2028 [id number] / / [id number] Valve Ricky 3 Ultra 26mm - [id number] Implanted:Qty: 1 on 05/27/2022 by Jesús Weber MD at [facility] [employer] [id number] 03/17/2023 [id number] / / Port Implant W/8f Poly Cath - [id number] Implanted:Qty: 1 on 12/29/2022 by Sudhir Lovett DO at OR [facility] Right: Chest CR BARD : PERIPHERAL VASCULAR [id number] 02/12/2024 [id number] / / [id number] documented as of this encounter Visit Diagnoses [...] 2.2 mL of Sterile Water for Injection, ASSISTED, into the vial, directing the diluent stream [...] Documents on File Type Date Recorded Patient Mammography Technician Expl anation Power of Systems Test Analyst 12/12/2018 8:46 AM Vipin viveros Power of Systems Test Analyst Power of Systems Test Analyst 12/12/2018 8:45 AM Zuleyma ferguson Power of Systems Test Analyst Latest Code Status on File Code Status [...] the patient have Health Care Power of Systems Test Analyst? Yes, not currently available Full Code 11/21/2018 8:53 AM 11/21/2018 2:27 PM This or bull reflects the patients wishes and were consensually agreed upon. Care Teams Triage Clinician Relationship Specialty Start Date End Date Kulwinder Byers MD [address] [place] [address] PCP - General 06/28/03 documented as of this encounter
--- OUTSIDE RECORDS SUMMARY | 2024-01-15 19:52 | External Medical Summary | Summary of Care ---
Author Name Unknown Organization [facility] Address [address] [facility] [place] [address] Phone [phone] Care Team Providers Care Nuclear Reactor Engineer Name Role Phone Kulwinder Byers MD Primary Care Provider Reason for Visit * Reason Comments Chemotherapy Cytotoxan IV Therapy IVIG * Episode Based Medications (Routine) - Authorized Specialty Diagnoses / Procedures Referred By Contac t Referred To Contact Diagnoses Hypogammaglobulinemia (HCC) Multiple myeloma not having achieved remission (HCC) Procedures ND INJ IVIG PRIVIGEN 500 MG Jorge Allen MD [address] [place] [address] Anc Hem/Onc Scenery Ritu DEPT CLOSED - 09/27/[address] [place] [address] Referral ID Status Reason Start Date Expiration Date V isits Requested Visits Authorized [id number] Authorized 10/04/2023 11/13/2099 999 999 Encounter Details [...] 30 Tab 0 9 Active nystatin (NYSTOP) 090473 UNIT/GM powder Apply topically to affected area [...] 11:45 AM EST Hem/Onc Treatment Hematology/Oncology Treatment, [address] [place] [phone] Ritu, Chair 3 Hem Onc [address] [place] [address] 03/12/2024 3:00 PM EDT Office Visit Hematology/Oncology [facility] [address] [place] [address] Mariana Florez CRNP 400 [facility] [place] [address] Health Maintenance Due [...] this encounter Medical Devices Implanted Type Area Sewing Machine Repairer Device Identifier Shelf Expiration Date Model / Serial / Lot Screw Elbow Humeral Total - [id number] Implanted:Qty: 1 on 12/23/2018 by Gautam Jasso MD at OR [facility] Right: Upper Arm [employer] 09/13/20278400-090 00 / / [id number] Deisi Nexel Total Elbow Implanted:Qty: 1 on 12/23/2018 by Gautam Jasso MD at OR [facility] Right: Upper Arm 04/13/20238400-095 -00 / / [id number] Cement Antibiotic Bone - [id number] Implanted:Qty: 1 on 12/23/2018 by Gautam Jasso MD at OR [facility] Right: Upper Arm RNEY : ORTHOPAEDICS 05/13/2020 6197-9-010 / / [id number] Cement Antibiotic Bone - [id number] Implanted:Qty: 1 on 12/23/2018 by Gautam Jasso MD at OR [facility] Right: Upper Arm RENY : ORTHOPAEDICS 05/13/2020 6197-9-010 / / [id number] Stem Compr Srs Mod 6s461qw - [id number] Implanted:Qty: 1 on 12/23/2018 by Gautam Jasso MD at OR [facility] Right: Upper Arm BIOMET : TRAUMA 01/28/2027 [id number] / / [id number] Deisi Nexel Total Elbow Ulnar Component Implanted:Qty: 1 on 12/23/2018 by aGutam Jasso MD at OR [facility] Right: Upper Arm 07/14/2025 00-8400-025 -07 / / [id number] Comprehensive Srs/Nexel Distal Body Implanted:Qty: 1 on 12/23/2018 by Gautam Jasso MD at OR [facility] Right: Upper Arm 03/03/2028 [id number] / / [id number] Valve Ricky 3 Ultra 26mm - [id number] Implanted:Qty: 1 on 05/27/2022 by Jesús Weber MD at [facility] [employer] [id number] 03/17/2023 [id number] / / Port Implant W/8f Poly Cath - [id number] Implanted:Qty: 1 on 12/29/2022 by Sudhir Lovett DO at OR [facility] Right: Chest CR BARD : PERIPHERAL VASCULAR [id number] 02/12/2024 [id number] / / [id number] documented as of this encounter Visit Diagnoses [...] 2.2 mL of Sterile Water for Injection, CORRECTION, into the vial, directing the diluent stream [...] Documents on File Type Date Recorded Patient Machine Puller Expl anation Power of Scrap Sorter 12/12/2018 8:46 AM Vipin viveros Power of Scrap Sorter Power of Scrap Sorter 12/12/2018 8:45 AM Zuleyma ferguson Power of Scrap Sorter Latest Code Status on File Code Status [...] the patient have Health Care Power of Scrap Sorter? Yes, not currently available Full Code 11/21/2018 8:53 AM 11/21/2018 2:27 PM This or bull reflects the patients wishes and were consensually agreed upon. Care Teams Nuclear Reactor Engineer Relationship Specialty Start Date End Date Kulwinder Byers MD [address] [place] [address] PCP - General 06/28/03 documented as of this encounter
--- OUTSIDE RECORDS SUMMARY | 2024-01-15 19:52 | External Medical Summary | Summary of Care ---
Author Name Unknown Organization [facility] Address [address] [facility] [place] [address] Phone [phone] Care Team Providers Care Audio Visual Engineer Name Role Phone Kulwinder Byers MD Primary Care Provider Reason for Visit * Reason Comments Chemotherapy Cytotoxan IV Therapy IVIG * Episode Based Medications (Routine) - Authorized Specialty Diagnoses / Procedures Referred By Contac t Referred To Contact Diagnoses Hypogammaglobulinemia (HCC) Multiple myeloma not having achieved remission (HCC) Procedures MI INJ IVIG PRIVIGEN 500 MG Jorge Allen MD [address] [place] [address] Anc Hem/Onc Scenery Ritu DEPT CLOSED - 09/27/[address] [place] [address] Referral ID Status Reason Start Date Expiration Date V isits Requested Visits Authorized [id number] Authorized 10/04/2023 11/13/2099 999 999 Encounter Details [...] 30 Tab 0 9 Active nystatin (NYSTOP) 098281 UNIT/GM powder Apply topically to affected area [...] 11:45 AM EST Hem/Onc Treatment Hematology/Oncology Treatment, [address] [place] [phone] Ritu, Chair 3 Hem Onc [address] [place] [address] 03/12/2024 3:00 PM EDT Office Visit Hematology/Oncology [facility] [address] [place] [address] Mariana Florez CRNP 400 [facility] [place] [address] Health Maintenance Due [...] this encounter Medical Devices Implanted Type Area Assistant Project Engineer Device Identifier Shelf Expiration Date Model / Serial / Lot Screw Elbow Humeral Total - [id number] Implanted:Qty: 1 on 12/23/2018 by Gautam Jasso MD [place] [facility] [place]: Upper Arm [employer] 09/13/20278400-090 00 / / [id number] Deisi Nexel Total Elbow Implanted:Qty: 1 on 12/23/2018 by Gautam Jasso MD at [place] [facility] Right: Upper Arm 04/13/20238400-095 -00 / / [id number] Cement Antibiotic Bone - [id number] Implanted:Qty: 1 on 12/23/2018 by Gautam Jasso MD at [place] [facility] Right: Upper Arm RENY : ORTHOPAEDICS 05/13/2020 6197-9-010 / / [id number] Cement Antibiotic Bone - [id number] Implanted:Qty: 1 on 12/23/2018 by Gautam Jasso MD at [place] [facility] Right: Upper Arm RENY : ORTHOPAEDICS 05/13/2020 6197-9-010 / / [id number] Stem Compr Srs Mod 9i648xt - [id number] Implanted:Qty: 1 on 12/23/2018 by Gautam Jasso MD at [place] [facility] Right: Upper Arm BIOMET : TRAUMA 01/28/2027 [id number] / / [id number] Deisi Nexel Total Elbow Ulnar Component Implanted:Qty: 1 on 12/23/2018 by Gautam Jasso MD at [place] [facility] Right: Upper Arm 07/14/2025 00-8400-025 -07 / / [id number] Comprehensive Srs/Nexel Distal Body Implanted:Qty: 1 on 12/23/2018 by Gautam Jasso MD at [place] [facility] Right: Upper Arm 03/03/2028 [id number] / / [id number] Valve Ricky 3 Ultra 26mm - [id number] Implanted:Qty: 1 on 05/27/2022 by Jesús Weber MD at [facility] [employer] [id number] 03/17/2023 [id number] / / Port Implant W/8f Poly Cath - [id number] Implanted:Qty: 1 on 12/29/2022 by Sudhir Lovett DO at OR [facility] Right: Chest CR BARD : PERIPHERAL VASCULAR [id number] 02/12/2024 [id number] / / [id number] documented as of this encounter Visit Diagnoses [...] 2.2 mL of Sterile Water for Injection, MCC, into the vial, directing the diluent stream [...] Documents on File Type Date Recorded 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 Yes, not currently available Full Code 11/21/2018 8:53 AM 11/21/2018 2:27 PM This or bull reflects the patients wishes and were consensually agreed upon. Care Teams Audio Visual Engineer Relationship Specialty Start Date End Date Kulwinder Byers MD [address] [place] [address] PCP - General 06/28/03 documented as of this encounter
--- OUTSIDE RECORDS SUMMARY | 2024-01-15 19:52 | External Medical Summary | Summary of Care ---
Author Name Unknown Organization [facility] Address [address] [facility] [place] [address] Phone [phone] Care Team Providers Care Host/Hostess Ground Name Role Phone Kulwinder Byers MD Primary Care Provider Reason for Visit * Reason Comments Outpatient Testing Encounter Details Date Type Department Care Team (Late st Contact Info) Description 01/05/2024 11:40 AM EST Laboratory Laboratory, [place] [address] [place] [address] [place], Laboratory [address], [place] [phone] Multiple myeloma not having achieved remission (HCC) [...] 30 Tab 0 12/25/2018 Active nystatin (NYSTOP) 745906 UNIT/GM powder Apply topically to affected area [...] 11:45 AM EST Hem/Onc Treatment Hematology/Oncology Treatment, [place] [address] [place] [address] Ritu, Chair 3 Hem Onc [facility] [address] [facility] [place] [address] 03/12/2024 3:00 PM EDT Office Visit Hematology/Oncology [facility] Ritu [place] [address] [facility] [place] [phone] Mariana Florez CRNP 400 [facility] [place] [address] Pending Results Name Type Priority Associated Diagnoses Date /Time CBC WITH WBC DIFFERENTIAL Lab STAT Multiple myeloma not having achieved remission (HCC) 01/05/2024 3:30 PM EST COMPREHENSIVE METABOLIC PANEL Lab STAT Multiple myeloma not having achieved remission (HCC) 01/05/2024 3:30 PM EST CBC Lab STAT Multiple myeloma not having achieved remission (HCC) 01/05/2024 3:30 PM EST DIFFERENTIAL, AUTOMATED Lab STAT Multiple myeloma not having achieved remission ([facility]) 01/05/2024 3:30 PM EST Health Maintenance Due Date Last Done Comments DXA Scan 1940 COVID-19 Vaccine (#1) 1945 Depression Screening 1952 Diabetic Eye Exam 1958 Diabetic Foot Exam 1958 DTaP,Tdap,and Td Vaccines (1 - Tdap) 1959 Zoster Vaccines (1 of 2) 1959 Albumin/Creatinine Ratio 12/11/2021 12/11/2020 Influenza Vaccine (FLU shot) (#1) 2023 HbA1c 04/19/2024 10/19/2023, 11/15, 06/13/2020, Additional history exists GFR 12/29/2024 12/29/2023, 06/2024, 12/15/2023, Additional history exists Pneumococcal Vaccine: [...] this encounter Medical Devices Implanted Type Area Learning And Development Consultant Device Identifier Shelf Expiration Date Model / Serial / Lot Screw Elbow Humeral Total - [id number] Implanted:Qty: 1 on 12/23/2018 by Gautam Jasso MD at OR [facility] Right: Upper Arm [employer] 09/13/202700-090 - / / [id number] Deisi Nexel Total Elbow Implanted:Qty: 1 on 12/23/2018 by Gautam Jasso MD at OR [facility] Right: Upper Arm 04/13/2023 / / [id number] Cement Antibiotic Bone - [id number] Implanted:Qty: 1 on 12/23/2018 by Gautam Jasso MD at OR [facility] Right: Upper Arm RENY : ORTHOPAEDICS 05/13/2020 6197-9-010 / / [id number] Cement Antibiotic Bone - [id number] Implanted:Qty: 1 on 12/23/2018 by Gautam Jasso MD at OR [facility] Right: Upper Arm RENY : ORTHOPAEDICS 05/13/2020 6197-9-010 / / [id number] Stem Compr Srs Mod 1u360be - [id number] Implanted:Qty: 1 on 12/23/2018 by Gautam Jasso MD at OR [facility] Right: Upper Arm BIOMET : TRAUMA 01/28/2027 [id number] / / [id number] Deisi Nexel Total Elbow Ulnar Component Implanted:Qty: 1 on 12/23/2018 by Gautam Jasso MD at OR [facility] Right: Upper Arm 07/14/202500-025 - / / [id number] Comprehensive Srs/Nexel Distal Body Implanted:Qty: 1 on 12/23/2018 by Gautam Jasso MD at OR [facility] Right: Upper Arm 03/03/2028 [id number] / / [id number] Valve Ricky 3 Ultra 26mm - [id number] Implanted:Qty: 1 on 05/27/2022 by Jesús Weber MD at [facility] [employer] [id number] 03/17/2023 [id number] / / Port Implant W/8f Poly Cath - [id number] Implanted:Qty: 1 on 12/29/2022 by Sudhir Lovett, at OR [facility] Right: Chest CR BARD : PERIPHERAL VASCULAR [id number] 02/12/2024 [id number] / / [id number] documented as of this encounter Visit Diagnoses Diagnosis Multiple myeloma not having achieved remission (HCC) Multiple myeloma, without mention of having achieved remission documented in this encounter Advance Directives Documents on File Type Date Recorded Patient Cuff Setter Lockstitch Expl anation Power of Senior Marketing Specialist 12/12/2018 8:46 AM Healt hcare Power of Senior Marketing Specialist Power of Senior Marketing Specialist 12/12/2018 8:45 AM Zuleyma ferguson Power of Senior Marketing Specialist Latest Code Status on File Code Status [...] patient have Health Care Power of Senior Marketing Specialist? Yes, not currently available Full Code 11/21/2018 8:53 AM 11/21/2018 2:27 PM This or bull reflects the patients wishes and were consensually agreed upon. Care Teams Host/Hostess Ground Relationship Specialty Start Date End Date Kulwinder Byers MD [address] [place] [address] PCP - General 06/28/03 documented as of this encounter
--- OUTSIDE RECORDS SUMMARY | 2024-01-15 19:52 | External Medical Summary | Summary of Care ---
Author Name Unknown Organization [facility] Address [address] [facility] [place] [address] Phone [phone] Care Team Providers Care Publicity Director Name Role Phone Kulwinder Byers MD Primary Care Provider Reason for Visit * Reason Comments Chemotherapy Cytotoxan IV Therapy IVIG * Episode Based Medications (Routine) - Authorized Specialty Diagnoses / Procedures Referred By Contac t Referred To Contact Diagnoses Hypogammaglobulinemia (HCC) Multiple myeloma not having achieved remission (HCC) Procedures [place] INJ IVIG PRIVIGEN 500 MG Jorge Allen MD [address] [place] [address] Anc Hem/Onc Scenery Ritu DEPT CLOSED - 09/27/[address] [place] [address] Referral ID Status Reason Start Date Expiration Date V isits Requested Visits Authorized [id number] Authorized 10/04/2023 11/13/2099 999 999 Encounter Details [...] 30 Tab 0 9 Active nystatin (NYSTOP) 029228 UNIT/GM powder Apply topically to affected area [...] AM EST Hem/Onc Treatment Hematology/Oncology Treatment, [address] [place] [phone] Ritu, Chair 3 Hem Onc [address] [place] [address] 03/12/2024 3:00 PM EDT Office Visit Hematology/Oncology [facility] [address] [place] [address] Mariana Florez CRNP 400 [facility] [place] [address] Health Maintenance Due [...] this encounter Medical Devices Implanted Type Area Machine Welt Butter Device Identifier Shelf Expiration Date Model / Serial / Lot Screw Elbow Humeral Total - [id number] Implanted:Qty: 1 on 12/23/2018 [place] Gautam J[place] [facility] [place] Upper Arm [employer] 09/13/20278400-090 00 / / [id number] Deisi Nexel Total Elbow Implanted:Qty: 1 on 12/23/2018 [place] Gautam Jasso [place] [facility] [place] Upper Arm 04/13/20238400-095 -00 / / [id number] Cement Antibiotic Bone - [id number] Implanted:Qty: 1 on 12/23/2018 [place] Gautam Jasso [place] [facility] [place] Arm RENY : ORTHOPAEDICS 05/13/2020 6197-9-010 / / [id number] Cement Antibiotic Bone - [id number] Implanted:Qty: 1 on 12/23/2018 by Gautam Jasso MD [place] [facility] [place] Arm RENY : ORTHOPAEDICS 05/13/2020 6197-9-010 / / [id number] Stem Compr Srs Mod [id number] - [id number] Implanted:Qty: 1 on 12/23/2018 by Gautam Jasso MD [place] [facility] [place] Upper Arm BIOMET : TRAUMA 01/28/2027 [id number] / / [id number] Deisi Nexel Total Elbow Ulnar Component Implanted:Qty: 1 on 12/23/2018 by Gautam Jasso [place] [facility] [place] Upper Arm 07/14/2025 00-8400-025 -07 / / [id number] Comprehensive Srs/Nexel Distal Body Implanted:Qty: 1 on 12/23/2018 by Gautam Jasso MD [place] [facility] [place] Upper Arm 03/03/2028 [id number] / / [id number] Valve Ricky 3 Ultra 26mm - [id number] Implanted:Qty: 1 on 05/27/2022 by Jesús Weber MD at [facility] [place] [employer] [id number] 03/17/2023 [id number] / / Port Implant W/8f Poly Cath - [id number] Implanted:Qty: 1 on 12/29/2022 by Sudhir Lovett DO at OR [facility] Right: Chest CR BARD : PERIPHERAL VASCULAR [id number] 02/12/2024 [id number] / / [id number] documented as of this encounter Visit Diagnoses [...] 2.2 mL of Sterile Water for Injection, [facility], into the vial, directing the diluent stream [...] Documents on File Type Date Recorded Patient Credit Control Administrator Expl anation Power of Controller Instructor 12/12/2018 8:46 AM Vipin viveros Power of Controller Instructor Power of Controller Instructor 12/12/2018 8:45 AM Zuleyma ferguson Power of Controller Instructor Latest Code Status on File Code Status [...] the patient have Health Care Power of Controller Instructor? Yes, not currently available Full Code 11/21/2018 8:53 AM 11/21/2018 2:27 PM This or bull reflects the patients wishes and were consensually agreed upon. Care Teams Publicity Director Relationship Specialty Start Date End Date Kulwinder Byers MD [address] [place] [address] PCP - General 06/28/03 documented as of this encounter
--- OUTSIDE RECORDS SUMMARY | 2024-01-15 19:52 | External Medical Summary | Summary of Care ---
Author Name Unknown Organization [facility] Address [address] [facility] [place] [address] Phone [phone] Care Team Providers Care Project Lead Name Role Phone Kulwinder Byers MD Primary Care Provider Reason for Visit * Reason Comments Chemotherapy Cytotoxan IV Therapy IVIG * Episode Based Medications (Routine) - Authorized Specialty Diagnoses / Procedures Referred By Contac t Referred To Contact Diagnoses Hypogammaglobulinemia (HCC) Multiple myeloma not having achieved remission (HCC) Procedures [place] INJ IVIG PRIVIGEN 500 MG Jorge Allen MD [address] [place] [address] Anc Hem/Onc Scenery Ritu DEPT CLOSED - 09/27/[address] [place] [address] Referral ID Status Reason Start Date Expiration Date V isits Requested Visits Authorized [id number] Authorized 10/04/2023 11/13/2099 999 999 Encounter Details [...] 30 Tab 0 9 Active nystatin (NYSTOP) 007450 UNIT/GM powder Apply topically to affected area [...] port site, readjusted with assistance from Sabine Rcio,RN, port flushing well with no symptoms. Pt [...] AM EST Hem/Onc Treatment Hematology/Oncology Treatment, [address] [place] [phone] Ritu, Chair 3 Hem Onc [address] [place] [address] 03/12/2024 3:00 PM EDT Office Visit Hematology/Oncology [facility] [address] [place] [address] Mariana Florez CRNP 400 [facility] [place] [address] Health Maintenance Due [...] this encounter Medical Devices Implanted Type Area Governor Assembler Hydraulic Device Identifier Shelf Expiration Date Model / Serial / Lot Screw Elbow Humeral Total - [id number] Implanted:Qty: 1 on 12/23/2018 by Gautam Jasso MD [place] [facility] [place]: Upper Arm [employer] 09/13/20278400-090 00 / / [id number] Deisi Nexel Total Elbow Implanted:Qty: 1 on 12/23/2018 by Gautam Jasso MD at [place] [facility] [place] Right: Upper Arm 04/13/20238400-095 -00 / / [id number] Cement Antibiotic Bone - [id number] Implanted:Qty: 1 on 12/23/2018 by Gautam Jasso MD at [place] [facility] [place] Right: Upper Arm RENY : ORTHOPAEDICS 05/13/2020 6197-9-010 / / [id number] Cement Antibiotic Bone - [id number] Implanted:Qty: 1 on 12/23/2018 by Gautam Jasso MD at [place] [facility] [place] Right: Upper Arm RENY : ORTHOPAEDICS 05/13/2020 6197-9-010 / / [id number] Stem Compr Srs Mod [id number] - [id number] Implanted:Qty: 1 on 12/23/2018 by Gautam Jasso MD at [place] [facility] [place] Right: Upper Arm BIOMET : TRAUMA 01/28/2027 [id number] / / [id number] Deisi Nexel Total Elbow Ulnar Component Implanted:Qty: 1 on 12/23/2018 by Gautam Jasso MD at [place] [facility] [place] Right: Upper Arm 07/14/2025 00-8400-025 -07 / / [id number] Comprehensive Srs/Nexel Distal Body Implanted:Qty: 1 on 12/23/2018 by Gautam Jasso MD at [place] [facility] [place] Right: Upper Arm 03/03/2028 [id number] / / [id number] Valve Ricky 3 Ultra 26mm - [id number] Implanted:Qty: 1 on 05/27/2022 by Jesús Weber MD at [facility]ARD[facility]S [facility] [place] [employer] [id number] 03/17/2023 [id number] / / Port Implant W/8f Poly Cath - [id number] Implanted:Qty: 1 on 12/29/2022 by Sudhir Lovett DO at OR [facility] Right: Chest CR BARD : PERIPHERAL VASCULAR [id number] 02/12/2024 [id number] / / [id number] documented as of this encounter Visit Diagnoses [...] 2.2 mL of Sterile Water for Injection, [place], into the vial, directing the diluent stream [...] Documents on File Type Date Recorded Patient Child Day Care Teacher Expl anation Power of Quality Assurance Practice Manager 12/12/2018 8:46 AM Vipin viveros Power of Quality Assurance Practice Manager Power of Quality Assurance Practice Manager 12/12/2018 8:45 AM Zuleyma ferguson Power of Quality Assurance Practice Manager Latest Code Status on File Code Status [...] patient have Health Care Power of Quality Assurance Practice Manager? Yes, not currently available Full Code 11/21/2018 8:53 AM 11/21/2018 2:27 PM This or bull reflects the patients wishes and were consensually agreed upon. Care Teams Project Lead Relationship Specialty Start Date End Date Kulwinder Byers MD [address] [place] [address] PCP - General 06/28/03 documented as of this encounter
--- OUTSIDE RECORDS SUMMARY | 2024-01-15 19:52 | External Medical Summary | Summary of Care ---
Author Name Unknown Organization [facility] Address [address] [facility] [place] [address] Phone [phone] Care Team Providers Care Latin Dancer Name Role Phone Kulwinder Byers MD Primary Care Provider [phone] Reason for Visit * Reason Comments Chemotherapy Cytotoxan IV Therapy IVIG * Episode Based Medications (Routine) - Authorized Specialty Diagnoses / Procedures Referred By Contac t Referred To Contact Diagnoses Hypogammaglobulinemia (HCC) Multiple myeloma not having achieved remission (HCC) Procedures [place] INJ IVIG PRIVIGEN 500 MG Jorge Allen MD [address] [place] [address] Anc Hem/Onc Scenery Ritu DEPT CLOSED - 09/27/[address] [place] [address] Referral ID Status Reason Start Date Expiration Date V isits Requested Visits Authorized [id number] Authorized 10/04/2023 11/13/2099 999 999 Encounter Details [...] 30 Tab 0 9 Active nystatin (NYSTOP) 816285 UNIT/GM powder Apply topically to affected area [...] 11:45 AM EST Hem/Onc Treatment Hematology/Oncology Treatment, [address] [place] [phone] Ritu, Chair 3 Hem Onc [address] [place] [address] 03/12/2024 3:00 PM EDT Office Visit Hematology/Oncology [facility] [address] [place] [address] Mariana Florez CRNP 400 [facility] [place] [address] Health Maintenance [...] this encounter Medical Devices Implanted Type Area Surgical Scrub Technician Device Identifier Shelf Expiration Date Model / Serial / Lot Screw Elbow Humeral Total - [id number] Implanted:Qty: 1 on 12/23/2018 by Gautam Jasso MD at [place] [facility] [place] Right: Upper Arm [employer] 09/13/20278400-090 00 / / [id number] Deisi Nexel Total Elbow Implanted:Qty: 1 on 12/23/2018 by Gautam Jasso MD at [place] [facility] [place] Right: Upper Arm 04/13/20238400-095 -00 / / [id number] Cement Antibiotic Bone - [id number] Implanted:Qty: 1 on 12/23/2018 by Gautam Jasso MD at OR [facility] [place] Right: Upper Arm RENY : ORTHOPAEDICS 05/13/2020 6197-9-010 / / [id number] Cement Antibiotic Bone - [id number] Implanted:Qty: 1 on 12/23/2018 by Gautam Jasso MD at OR [facility] [place] Right: Upper Arm RENY : ORTHOPAEDICS 05/13/2020 6197-9-010 / / [id number] Stem Compr Srs Mod 2j125wl - [id number] Implanted:Qty: 1 on 12/23/2018 by Gautam Jasso MD at [place] [facility] [place] Right: Upper Arm BIOMET : TRAUMA 01/28/2027 [id number] / / [id number] Edisi Nexel Total Elbow Ulnar Component Implanted:Qty: 1 on 12/23/2018 by Gautam Jasso MD at OR [facility] [place] Right: Upper Arm 07/14/2025 00-8400-025 -07 / / [id number] Comprehensive Srs/Nexel Distal Body Implanted:Qty: 1 on 12/23/2018 by Gautam Jasso MD at OR [facility] [place] Right: Upper Arm 03/03/2028 [id number] / / [id number] Valve Ricky 3 Ultra 26mm - [id number] Implanted:Qty: 1 on 05/27/2022 by Jesús Weber MD at CARDIAC LABS [facility] [employer] [id number] 03/17/2023 [id number] / / Port Implant W/8f Poly Cath - [id number] Implanted:Qty: 1 on 12/29/2022 by Sudhir Lovett DO at OR [facility] Right: Chest CR BARD : PERIPHERAL VASCULAR [id number] 02/12/2024 [id number] / / [id number] documented as of this encounter Visit Diagnoses [...] 2.2 mL of Sterile Water for Injection, ALF, into the vial, directing the diluent stream [...] Documents on File Type Date Recorded Patient Purchasing Manager Expl anation Power of Manager Hardware 12/12/2018 8:46 AM Vipin viveros Power of Manager Hardware Power of Manager Hardware 12/12/2018 8:45 AM Zuleyma ferguson Power of Manager Hardware Latest Code Status on File Code Status [...] the patient have Health Care Power of Manager Hardware? Yes, not currently available Full Code 11/21/2018 8:53 AM 11/21/2018 2:27 PM This or bull reflects the patients wishes and were consensually agreed upon. Care Teams Latin Dancer Relationship Specialty Start Date End Date Kulwinder Byers MD [address] [place] [address] PCP - General 06/28/03 documented as of this encounter
--- OUTSIDE RECORDS SUMMARY | 2024-01-15 19:52 | External Medical Summary ---
Author Name Unknown Address Unknown Organization K01:LABORATORY [place] [address] [facility] [address] [place] [address] Laboratory Report Ordering Provider Test Date Status WOOD CANTU 01/05/2024 15:30:00 Final Observation Date Value Abnormality Reference (Units ) Status WBC, Total 01/05/2024 15:30:00 4.10 4.00-10.80 (K/uL) Final RBC 01/05/2024 15:30:00 3.67 3.85-5.15 (M/uL) Final Hemoglobin 01/05/2024 15:30:00 11.6 Below low normal 12.0-15.3 (g/dL) Final HCT 01/05/2024 15:30:00 35.4 Below low normal 36.0-45.2 (%) Final MCV 01/05/2024 15:30:00 96.5 81.5-97.5 (fL) Final MCH 01/05/2024 15:30:00 31.6 27.0-34.0 (pg) Final MCHC 01/05/2024 15:30:00 32.8 32.0-36.0 (g/dL) Final RDW 01/05/2024 15:30:00 17.5 11.5-15.5 (%) Final Platelets 01/05/2024 15:30:00 107 Below low normal 140-400 (K/uL) Final MPV 01/05/2024 15:30:00 12.9 6.6-11.1 (fL) Final Nucleated erythrocytes/100 leukocytes [Ratio] in Blood by Automated count 01/05/2024 15:30:00 0 <=0 (/100 WBCs) Final Performing Location [facility] [place] [facility] [address] [place] [address]
--- OUTSIDE RECORDS SUMMARY | 2024-01-15 19:52 | External Medical Summary | Summary of Care ---
Author Name Unknown Organization [facility] Address [address] [facility] [place] [address] Phone [phone] Care Team Providers Care Broadcast Maintenance Engineer Name Role Phone Kulwinder Byers MD Primary Care Provider Reason for Visit * Reason Comments Chemotherapy Cytotoxan IV Therapy IVIG * Episode Based Medications (Routine) - Authorized Specialty Diagnoses / Procedures Referred By Contac t Referred To Contact Diagnoses Hypogammaglobulinemia (HCC) Multiple myeloma not having achieved remission (HCC) Procedures [place] INJ IVIG PRIVIGEN 500 MG Jorge Allen MD [address] [place] [address] Anc Hem/Onc Scenery Ritu DEPT CLOSED - 09/27/[address] [place] [address] Referral ID Status Reason Start Date Expiration Date V isits Requested Visits Authorized [id number] Authorized 10/04/2023 11/13/2099 999 999 Encounter Details [...] 30 Tab 0 9 Active nystatin (NYSTOP) 031130 UNIT/GM powder Apply topically to affected area [...] 11:45 AM EST Hem/Onc Treatment Hematology/Oncology Treatment, [address] [place] [address] Ritu, Chair 3 Hem Onc [address] [place] [address] 03/12/2024 3:00 PM EDT Office Visit Hematology/Oncology [facility] [address] [place] [address] Mariana Florez CRNP 400 [facility] [place] [address] Health Maintenance [...] this encounter Medical Devices Implanted Type Area Promotions Officer Device Identifier Shelf Expiration Date Model / Serial / Lot Screw Elbow Humeral Total - [id number] Implanted:Qty: 1 on 12/23/2018 by Gautam Jasso MD at [place] [facility] [place] Right: Upper Arm [employer] 09/13/20278400-090 00 / / [id number] Deisi Nexel Total Elbow Implanted:Qty: 1 on 12/23/2018 by Gautam Jasso MD at OR [facility] [place] Right: Upper Arm 04/13/20238400-095 -00 / / [id number] Cement Antibiotic Bone - [id number] Implanted:Qty: 1 on 12/23/2018 by Gautam Jasso MD at OR [facility] [place] Right: Upper Arm RENY : ORTHOPAEDICS 05/13/2020 6197-9-010 / / [id number] Cement Antibiotic Bone - [id number] Implanted:Qty: 1 on 12/23/2018 by Gautam Jasso MD at OR [facility] [place] Right: Upper Arm RENY : ORTHOPAEDICS 05/13/2020 6197-9-010 / / [id number] Stem Compr Srs Mod [id number] - [id number] Implanted:Qty: 1 on 12/23/2018 by Gautam Jasso MD at OR [facility] [place] Right: Upper Arm BIOMET : TRAUMA 01/28/2027 [id number] / / [id number] Deisi Nexel Total Elbow Ulnar Component Implanted:Qty: 1 on 12/23/2018 by Gautam Jasso MD at OR [facility] [place] Right: Upper Arm 07/14/2025 00-8400-025 -07 / / [id number] Comprehensive Srs/Nexel Distal Body Implanted:Qty: 1 on 12/23/2018 by Gautam Jasso MD at OR [facility] [place] Right: Upper Arm 03/03/2028 [id number] / / [id number] Valve Ricky 3 Ultra 26mm - [id number] Implanted:Qty: 1 on 05/27/2022 by Jesús Weber MD at CARDIAC [facility]S [facility] [place] [employer] [id number] 03/17/2023 [id number] / / Port Implant W/8f Poly Cath - [id number] Implanted:Qty: 1 on 12/29/2022 by Sudhir Lovett DO at OR [facility] Right: Chest CR BARD : PERIPHERAL VASCULAR [id number] 02/12/2024 [id number] / / [id number] documented as of this encounter Visit Diagnoses [...] Documents on File Type Date Recorded Patient Research Physician Expl anation Power of Hair Stylist 12/12/2018 8:46 AM Vipin viveros Power of Hair Stylist Power of Hair Stylist 12/12/2018 8:45 AM Zuleyma ferguson Power of Hair Stylist Latest Code Status on File Code Status [...] the patient have Health Care Power of Hair Stylist? Yes, not currently available Full Code 11/21/2018 8:53 AM 11/21/2018 2:27 PM This or bull reflects the patients wishes and were consensually agreed upon. Care Teams Broadcast Maintenance Engineer Relationship Specialty Start Date End Date Kulwinder Byers MD [address] [place] [address] PCP - General 06/28/03 documented as of this encounter
--- OUTSIDE RECORDS SUMMARY | 2024-01-15 19:52 | External Medical Summary | Summary of Care ---
Author Name Unknown Organization [facility] Address [address] [facility] [place] [address] Phone [phone] Care Team Providers Care Pharmacy Delivery Driver Name Role Phone Kulwinder Byers MD Primary Care Provider [phone] Reason for Visit * Reason Comments Chemotherapy Cytotoxan IV Therapy IVIG * Episode Based Medications (Routine) - Authorized Specialty Diagnoses / Procedures Referred By Contac t Referred To Contact Diagnoses Hypogammaglobulinemia (HCC) Multiple myeloma not having achieved remission (HCC) Procedures [place] INJ IVIG PRIVIGEN 500 MG Jorge Allen MD [address] [place] [address] Anc Hem/Onc Scenery Ritu DEPT CLOSED - 09/27/[address] [place] [address] Referral ID Status Reason Start Date Expiration Date V isits Requested Visits Authorized [id number] Authorized 10/04/2023 11/13/2099 999 999 Encounter Details [...] 30 Tab 0 9 Active nystatin (NYSTOP) 354976 UNIT/GM powder Apply topically to affected area [...] 11:45 AM EST Hem/Onc Treatment Hematology/Oncology Treatment, [address] [place] [address] Ritu, Chair 3 Hem Onc [address] [place] [address] 03/12/2024 3:00 PM EDT Office Visit Hematology/Oncology [facility] [address] [place] [address] Mariana Florez CRNP 400 [facility] [place] [address] Health Maintenance Due [...] this encounter Medical Devices Implanted Type Area Cement Sprayer Helper Device Identifier Shelf Expiration Date Model / Serial / Lot Screw Elbow Humeral Total - [id number] Implanted:Qty: 1 on 12/23/2018 by Gautam Jasso MD [place] [facility] [place]: Upper Arm [employer] 09/13/20278400-090 00 / / [id number] Deisi Nexel Total Elbow Implanted:Qty: 1 on 12/23/2018 by Gautam Jasso MD [place] [facility] [place]: Upper Arm 04/13/20238400-095 -00 / / [id number] Cement Antibiotic Bone - [id number] Implanted:Qty: 1 on 12/23/2018 by Gautam Jasso MD [place] [facility]: Upper Arm RENY : ORTHOPAEDICS 05/13/2020 6197-9-010 / / [id number] Cement Antibiotic Bone - [id number] Implanted:Qty: 1 on 12/23/2018 by Gautam Jasso MD [place] [facility]: Upper Arm RENY : ORTHOPAEDICS 05/13/2020 6197-9-010 / / [id number] Stem Compr Srs Mod [id number] - [id number] Implanted:Qty: 1 on 12/23/2018 by Gautam Jasso MD [place] [facility] [place]: Upper Arm BIOMET : TRAUMA 01/28/2027 [id number] / / [id number] Deisi Nexel Total Elbow Ulnar Component Implanted:Qty: 1 on 12/23/2018 by Gautam Jasso MD [place] [facility] [place]: Upper Arm 07/14/2025 00-8400-025 -07 / / [id number] Comprehensive Srs/Nexel Distal Body Implanted:Qty: 1 on 12/23/2018 by Gautam Jasso MD [place] [facility] [place]: Upper Arm 03/03/2028 [id number] / / [id number] Valve Ricky 3 Ultra 26mm - [id number] Implanted:Qty: 1 on 05/27/2022 by Jesús Weber MD at [facility] [employer] [id number] 03/17/2023 [id number] / / Port Implant W/8f Poly Cath - [id number] Implanted:Qty: 1 on 12/29/2022 by Sudhir Lovett DO at OR [facility] Right: Chest CR BARD : PERIPHERAL VASCULAR [id number] 02/12/2024 [id number] / / [id number] documented as of this encounter Visit Diagnoses [...] 2.2 mL of Sterile Water for Injection, LONG-TERM, into the vial, directing the diluent stream [...] Documents on File Type Date Recorded Patient Steam Power Plant Operator Expl anation Power of Mechanotherapist 12/12/2018 8:46 AM Vipin viveros Power of Mechanotherapist Power of Mechanotherapist 12/12/2018 8:45 AM Zuleyma ferguson Power of Mechanotherapist Latest Code Status on File Code Status [...] the patient have Health Care Power of Mechanotherapist? Yes, not currently available Full Code 11/21/2018 8:53 AM 11/21/2018 2:27 PM This or bull reflects the patients wishes and were consensually agreed upon. Care Teams Pharmacy Delivery Driver Relationship Specialty Start Date End Date Kulwinder Byers MD [address] [place] [address] PCP - General 06/28/03 documented as of this encounter
--- OUTSIDE RECORDS SUMMARY | 2024-01-15 19:52 | External Medical Summary ---
Author Name Unknown Address Unknown Organization K01:LABORATORY [facility] [place] - [address] [facility] [place] [address] Laboratory Report Ordering Provider Test Date Status WOOD CANTU 01/05/2024 15:30:00 Final Observation Date Value Abnormality Reference (Units ) Status BUN 01/05/2024 15:30:00 17 6-20 (mg/dL) Final Creatinine 01/05/2024 15:30:00 0.9 0.5-1.0 (mg/dL) Final Glomerular filtration rate/1.73 sq M.predicted [Volume Rate/Area] in Serum, Plasma or Blood by Creatinine-based formula (CKD-EPI) 01/05/2024 15:30:00 66 >=60 (mL/min) Final eGFR is calculated based on the CKD-EPI 2020 equation SODIUM 01/05/2024 15:30:00 138 135-146 (m mol/L) Final Potassium 01/05/2024 15:30:00 4.2 3.5-5.1 (m mol/L) Final Cl 01/05/2024 15:30:00 102 98-107 (mm ol/L) Final CO2 01/05/2024 15:30:00 22 22-32 (mmo l/L) Final Anion gap 01/05/2024 15:30:00 14 7-15 (mmol /L) Final Glucose 01/05/2024 15:30:00 253 Above high normal 70 -120 (mg/dL) Final Albumin 01/05/2024 15:30:00 3.8 3.8-5.0 (g /dL) Final AST (Aspartate aminotransferase) 01/05/2024 15:30:00 18 10-35 (U/L) Fin al Alk Phos 01/05/2024 15:30:00 63 35-130 (U/ L) Final Bilirubin, Total 01/05/2024 15:30:00 0.3 <=1 .2 (mg/dL) Final Calcium 01/05/2024 15:30:00 8.9 8.4-10.2 ( mg/dL) Final Protein 01/05/2024 15:30:00 6.0 6.0-8.3 (g /dL) Final ALT (Alanine aminotransferase) 01/05/2024 15:30:00 20 10-35 (U/L) Abisai mcconnell Performing Location LABORATORY [facility] [place] - [address] [facility] [address]
--- OUTSIDE RECORDS SUMMARY | 2024-01-15 19:53 | External Medical Summary | Summary of Care ---
Author Name Unknown Organization [facility] [address] [address] Phone [phone] Care Team Providers Care Winch Truck Operator Name Role Phone Kulwinder Byers MD Primary Care Provider Reason for Visit * Reason Comments IV Therapy IVIG; hold chemo * Episode Based Medications (Routine) - Authorized Specialty Diagnoses / Procedures Referred By Contac t Referred To Contact Diagnoses Hypogammaglobulinemia (HCC) Multiple myeloma not having achieved remission (HCC) Procedures [place] INJ IVIG PRIVIGEN 500 MG Jorge Allen MD [address] [place] [address] Anc Hem/Onc [place] DEPT CLOSED - 09/27/23 [address] [place] [address] Referral ID Status Reason Start Date Expiration Date V isits Requested Visits Authorized [id number] Authorized 10/04/2023 11/13/2099 999 999 Encounter Details Date Type Department Care Team (Latest Contact Info) Description 11/11/2023 9:30 AM EST Hem/Onc Treatment Hematology/Oncolo gy Treatment, [place] [address] [place] [address] Hypogammaglobulinemia (HCC)*; Multiple myeloma not having achieved remission (HCC) Allergies Active Allergy Reactions Criticality Noted Date Comments Adhesive Tape 05/28/2003 documented as of this encounter (statuses as of 12/30/2023) Medications Medication Sig Dispensed Refills Start Date [...] 30 Tab 0 9 Active nystatin (NYSTOP) 846666 UNIT/GM powder Apply topically to affected area [...] as of this encounter (statuses as of 12/30/2023) Active Problems Problem Noted Date Diagnosed Date [...] as of this encounter (statuses as of 12/30/2023) Resolved Problems Problem Noted Date Diagnosed Date 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 Aortic valve stenosis 2021 documented as of this encounter (statuses as of 12/30/2023) Social History Tobacco Use Types Packs/Day Years [...] Sign Reading Time Taken Comments Blood Pressure 117/62 11/11/2023 11:05 AM EST Pulse 93 11/11/2023 11:05 AM EST Temperature 36.6 C (97.9 F) 11/11/2023 9:15 AM ES T Respiratory Rate 18 11/11/2023 11:0 5 AM EST Oxygen Saturation 94% 11/11/2023 11: 05 AM EST Inhaled Oxygen Concentration - - Weight 108.7 kg (239 lb 9.6 oz) 11/11/2023 9:15 AM EST Height - - Body Mass Index 48.3 10/04/2023 12:36 PM EST documented in this [...] as of this encounter Nursing Notes * Sachi De La O, RN - 11/11/2023 10:28 AM EST Chair 4 Pt here for chemo treatment & IVIG. C/o recent cold. Describes symptoms as productive cough with green sputum, runny nose, and nasal congestion. Denies shortness of breath or chest congestion. Appears tired, watery eyes noted. Also states her appetite has been poor and she's been more fatigued.Labs reviewed. Mariana Florez NP notified and in to examine patient in treatment room. Instructed to hold chemo today but proceed with IVIG. Pt agreeable. Pt instructed to return in 1 week to resumechemo and contact PCP if symptoms continue. Safety and Risk for Injury Patient will remain free from injury. Ensure appropriate safety devices are available. Provide and maintain safe environment. Goals: Patient will remain free from injury. Possible barriers to meeting goals: ambulation with IV pole, mobility limitations, benadryl side effects Stability of the patient: Moderately unstable - medium risk of patient condition declining or worsening Summary regarding today's goals: Met: patient without injury during treatment today. Pt tolerated IVIG infusion well. No complaints. Discharged in stable condition. documented in this encounter Plan of Treatment Upcoming Encounters Date Type Department Care Team (Late st Contact Info) Description 01/02/2024 12:00 PM EST Office Visit Interventional Radiology, [facility] [address] [place] [address] Dustin Velásquez MD [address] [place] [address] 01/06/2024 11:45 AM EST Hem/Onc Treatment Hematology/Oncology Treatment, [place] [address] [place], [place] [address] Ritu, Chair 3 Hem Onc [facility] [address] [place] [address] 03/12/2024 3:00 PM EDT Office Visit Hematology/Oncology [facility] [address] [place] [address] Mariana Florez CRNP [address] [place] [address] Health Maintenance Due Date Last Done Comments DXA Scan 1940 COVID-19 Vaccine (#1) 1945 Depression Screening 1952 Diabetic Eye Exam 1958 Diabetic Foot Exam 1958 DTaP,Tdap,and Td Vaccines (1 - Tdap) 1959 Zoster Vaccines (1 of 2) 1959 Albumin/Creatinine Ratio 12/11/2021 12/11/2020 Influenza Vaccine (FLU shot) (#1) 2023 HbA1c 04/19/2024 10/19/2023, 2 06/2021, 06/13/2020, Additional history exists GFR 12/29/2024 12/29/2023, 02/0 06/2024, 12/15/2023, Additional history exists Pneumococcal Vaccine: [...] this encounter Medical Devices Implanted Type Area Special Education Professor Device Identifier Shelf Expiration Date Model / Serial / Lot Screw Elbow Humeral Total - [id number] Implanted:Qty: 1 on 12/23/2018 by Gautam Jasso MD [place] [facility] [place]: Upper Arm [employer] 09/13/2027 / / [id number] Deisi Nexel Total Elbow Implanted:Qty: 1 on 12/23/2018 by Gautam Jasso MD at [place] [facility] [place] Right: Upper Arm 04/13/2023 / / [id number] Cement Antibiotic Bone - [id number] Implanted:Qty: 1 on 12/23/2018 by Gautam Jasso MD at [place] [facility] [place]: Upper Arm RENY : ORTHOPAEDICS 05/13/2020 6197-9-010 / / [id number] Cement Antibiotic Bone - [id number] Implanted:Qty: 1 on 12/23/2018 by Gautam Jasso MD at [place] [facility] [place] Right: Upper Arm RENY : ORTHOPAEDICS 05/13/2020 6197-9-010 / / [id number] Stem Compr Srs Mod [id number] - [id number] Implanted:Qty: 1 on 12/23/2018 by Gautam Jasso MD at [place] [facility] [place]: Upper Arm BIOMET : TRAUMA 01/28/2027 [id number] / / [id number] Deisi Nexel Total Elbow Ulnar Component Implanted:Qty: 1 on 12/23/2018 by Gautam Jasso MD at [place] [facility] [place] Right: Upper Arm 07/14/202500-025 - / / [id number] Comprehensive Srs/Nexel Distal Body Implanted:Qty: 1 on 12/23/2018 by Gautam Jasso MD at [place] [facility] [place] Right: Upper Arm 03/03/2028 [id number] / / [id number] Valve Ricky 3 Ultra 26mm - [id number] Implanted:Qty: 1 on 05/27/2022 by Jesús Weber MD at [facility]ARD[facility] [place] Ryonet [id number] 03/17/2023 [id number] / / Port Implant W/8f Poly Cath - [id number] Implanted:Qty: 1 on 12/29/2022 by Sudhir Lovett DO at OR [facility] Right: Chest CR BARD : PERIPHERAL VASCULAR [id number] 02/12/2024 [id number] / / [id number] documented as of this encounter Visit Diagnoses Diagnosis Hypogammaglobulinemia (HCC)- Primary Hypogammaglobulinaemia, unspecified Multiple myeloma not having achieved remission (HCC) Multiple myeloma, without mention of having achieved remission documented in this encounter Administered Medications Inactive Administered Medications - up to 3 most recent administrations Medication Order MAR Action Action Date Dose Rate Site Acetaminophen (Tylenol) tab 650 mg 650 mg, Oral, ONCE PRN If previous infusion reaction with IVIG, Starting on Tue11/11/23 at 1030, Until Tue11/11/23 at 1653, Maximum of 4 grams (4000 mg) per day. Given 11/11/2023 9:46 AM EST 650 mg diphenhydrAMINE (Benadryl) cap 25 mg 25 mg, Oral, ONCE PRN If previous infusion reaction with IVIG, Starting on Tue11/11/23 at 1030, Until Tue11/11/23 at 1653 Given 11/11/2023 9:46 AM EST 25 mg hEParin 100 UNIT/ML Lock Flush inj 500 Units 500 Units (5 mL), IV Lock, PRN Other, IV Flush, Starting on Tue11/11/23 at 0928, Until Tue11/11/23 at 1653, For 24 hours, Do not flush if lock, PICC, or central line not in place; IV infusing or unable to flush. Given 11/11/2023 11:49 AM EST 500 Units Immune Globulin Human- IVIG 10% (Privigen) IV 20 g 20 g, IV Piggyback, ONCE, 1 dose, On Tue11/11/23 at 1000, Total dose = 30 gm Dispensed as [...] Infusion duration = 1.7 hours Rate Change 11/11/2023 11:05 AM EST 335 mL/hr Start Infusion 11/11/2023 11:03 AM EST 20 g 167 mL/h r Immune Globulin Human-IVIG 10% (Privigen) IV 10 g 10 g, IV Piggyback, ONCE, 1 dose, On Tue11/11/23 at 1000, Total dose = 30 gm Dispensed as [...] Infusion duration = 1.7 hours Rate Change 11/11/2023 10:50 AM EST 167 mL/hr Rate Change 11/11/2023 10:35 AM EST 84 mL/hr Rate Change 11/11/2023 10:20 AM EST 42 mL/hr NSS infusion 500 mL, Intravenous, at 50 mL/hr, CONTINUOUS, Starting on Tue11/11/23 at 1030, Until Tue11/11/23 at 1653 Start Infusion 11/11/2023 9:20 AM EST 500 mL 50 mL/hr sodium chloride 0.9 % flush central line 10 mL 10 mL, IV Push, PRN Other, IV Flush, Starting on Tue11/11/23 at 0928, Until Tue11/11/23 at 1653, For 24 hours, Do not flush if lock, PICC, or central line not in place; IV infusing or unable to flush. Given 11/11/2023 11:49 AM EST 10 mL documented in this encounter Advance Directives Documents on File Type Date Recorded Patient Consumer Loan Specialist Expl anation Power of Shuffle Board Operator 12/12/2018 8:46 AM Vipin viveros Power of Shuffle Board Operator Power of Shuffle Board Operator 12/12/2018 8:45 AM Zuleyma ferguson Power of Shuffle Board Operator Latest Code Status on File Code [...] the patient have Health Care Power of Shuffle Board Operator? Yes, not currently available Full Code 11/21/2018 8:53 AM 11/21/2018 2:27 PM This or bull reflects the patients wishes and were consensually agreed upon. Care Teams Winch Truck Operator Relationship Specialty Start Date End Date Kulwinder Byers MD [address] [address] PCP - General 06/28/03 documented as of this encounter
--- OUTSIDE RECORDS SUMMARY | 2024-01-15 19:53 | External Medical Summary | Summary of Care ---
Author Name Unknown Organization [facility] Address [address] [facility] [place] [address] Phone [phone] Care Team Providers Care Retread Builder Name Role Phone Kulwinder Byers MD Primary Care Provider Reason for Visit * Reason Comments Chemotherapy [id number] Cytoxan * Episode Based Medications (Routine) - Authorized Specialty Diagnoses / Procedures Referred By Contac t Referred To Contact Diagnoses Multiple myeloma not having achieved remission (HCC) Procedures W[place] DARATUMUMAB, HYALURONIDASE [place] CYCLOPHOSPHAMIDE 100 MG INJ Jorge Allen MD [address] [place] [address] Anc Hem/Onc [address] Ritu DEPT CLOSED - 09/27/[address] [place] [address] Referral ID Status Reason Start Date Expiration Date V isits Requested Visits Authorized [id number] Authorized 07/23/2022 11/13/2099 999 99 Encounter Details Date Type Department Care Team (Latest Contact Info) Description 10/28/2023 2:30 PM EST Hem/Onc Treatment Hematology/Oncolog y Treatment, [place] [address] [place] [address] Ritu, Chair 4 Hem Onc [address] [place] [id number] Multiple myeloma not having achieved remission (HCC)*; Encounter for antineoplastic chemotherapy Allergies Active Allergy Reactions Criticality Noted Date Comments Adhesive Tape 05/28/2003 documented as of this encounter (statuses as of 12/31/2023) Medications Medication Sig Dispensed Refills Start Date [...] 30 Tab 0 9 Active nystatin (NYSTOP) 948643 UNIT/GM powder Apply topically to affected area [...] for Pain, Breakthrough. 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 Aortic valve stenosis 2021 documented as of this encounter (statuses as of 12/31/2023) Social History Tobacco Use Types Packs/Day Years [...] Sign Reading Time Taken Comments Blood Pressure 133/73 10/28/2023 2:15 PM EST Pulse 100 10/28/2023 2:15 PM EST Temperature 36.8 C (98.2 F) 10/28/2023 2:15 PM ES T Respiratory Rate 16 10/28/2023 2:15 PM EST Oxygen Saturation 93% 10/28/2023 2:15 PM EST Inhaled Oxygen Concentration - - Weight 108 kg (238 lb 3.2 oz) 10/28/2023 2:15 PM EST Height - - Body Mass Index 48.02 10/04/2023 12:36 PM EST documented in this [...] as of this encounter Nursing Notes * Aditi Seay RN - 10/28/2023 4:14 PM EST Functional status at today's visit: Ambulatory and [...] symptoms or adverse side effects during treatment. Pt completed treatment without issues. VAD flushed with 10 ml NSS and Heparin 5 ml (100 units/ml). Samson needle removed intact. Goals: Pt will remain free from injury. Possible barriers to meeting goals: pt is a high fall risk Stability of the patient: Moderately stable - low risk of patient condition declining or worsening Summary regarding today's goals: Met: Pt remained free from injury during treatment today. Discharged in stable condition. BR assisted. * Sachi De La O RN - 10/28/2023 2:45 PM EST Chair 4 Pt here for chemo treatment. States she continues to have L hip pain. Taking oxycodone which "helpssome, but I don't want to take 2 pills". States she's been having calf pain and weight is up 5 lbs.When asked, she states she has SOB at times. Resp appear even & unlabored at this time. B calves with mild nonpitting edema. Pt instructed to follow-up with cardiology. Reviewed [facility] cardiology notes. Pt states she will follow up with [facility] group Dr. Bethea. Chemo agents cytoxan Appetite "ok" Nausea/Vomiting denies Diarrhea denies Constipation denies Mucositis denies Fatigue "always" Bleeding denies Infection denies Rash denies Numbness tingling denies Pain L hip & B calves Radiation no ABN Labs WNL for treatment Alt in Tx: no Return in 1 week Safety and Risk for Injury Patient will remain free from injury. Ensure appropriate safety devices are available. Provide and maintain safe environment. documented in this encounter Plan of Treatment Upcoming Encounters Date Type Department Care Team (Late st Contact Info) Description 01/02/2024 12:00 PM EST Office Visit Interventional Radiology, [facility] [address] [place] [address] Dustin Velásquez MD [address] [place] [address] 01/06/2024 11:45 AM EST Hem/Onc Treatment Hematology/Oncology Treatment, [place] [address] [facility] [place] [address] Ritu, Chair 3 Hem Onc [address] [place] [address] 03/12/2024 3:00 PM EDT Office Visit Hematology/Oncology [facility] State [place] [address] [place] [address] [place] [address] Mariana Mejias CRNP [address] [place] [place] [address] Health Maintenance Due Date Last Done Comments [...] this encounter Medical Devices Implanted Type Area Change Management Director Device Identifier Shelf Expiration Date Model / Serial / Lot Screw Elbow Humeral Total - [id number] Implanted:Qty: 1 on 12/23/2018 by Gautam Jasso MD [place] [facility] [place]: Upper Arm [employer] 09/13/2027-090 / / [id number] Abel Nexel Total Elbow Implanted:Qty: 1 on 12/23/2018 by Gautam Jasso MD [place] [facility] [place] Right: Upper Arm 04/13/2023- / / [id number] Cement Antibiotic Bone - [id number] Implanted:Qty: 1 on 12/23/2018 by Gautam Jasso MD [place] [facility] [place]: Upper Arm RENY : ORTHOPAEDICS 05/13/2020 6197-9-010 / / [id number] Cement Antibiotic Bone - [id number] Implanted:Qty: 1 on 12/23/2018 by Gautam Jasso MD at [place] [facility] Right: Upper Arm RENY : ORTHOPAEDICS 05/13/2020 6197-9-010 / / [id number] Stem Compr Srs Mod [id number] - [id number] Implanted:Qty: 1 on 12/23/2018 by Gautam Jasso MD at [place] [facility] Right: Upper Arm BIOMET : TRAUMA 01/28/2027 [id number] / / [id number] Nexel Total Elbow Ulnar Component Implanted:Qty: 1 on 12/23/2018 by Gautam Jasso MD at [place] [facility] Right: Upper Arm 07/14/2025 00-8400-025 -07 / / [id number] Comprehensive Srs/Nexel Distal Body Implanted:Qty: 1 on 12/23/2018 by Gautam Jasso MD at [place] [facility] Right: Upper Arm 03/03/2028 [id number] / / [id number] Valve Ricky 3 Ultra 26mm - [id number] Implanted:Qty: 1 on 05/27/2022 by Jesús Weber MD at [facility] [employer] [id number] 03/17/2023 [id number] / / Port Implant W/8f Poly Cath - [id number] Implanted:Qty: 1 on 12/29/2022 by Sudhir Lovett DO at [place] [facility] Right: Chest CR BARD : PERIPHERAL VASCULAR [id number] 02/12/2024 [id number] / / [id number] documented as of this encounter Visit Diagnoses [...] if not tolerated., ONCE, 1 dose, On Tue10/28/23 at 1500 Start Infusion 10/28/2023 2:51 PM EST 620 mg 500 mL/hr hEParin 100 UNIT/ML Lock Flush inj 500 Units 500 Units (5 mL), IV Lock, PRN Other, IV Flush, Starting on Tue10/28/23 at 1425, Until Tue10/28/23 at 2016, For 24 hours, Do not flush if lock, PICC, or central line not in place; IV infusing or unable to flush. Given 10/28/2023 3:29 PM EST 500 Units NSS infusion FOR HYDRATION Intravenous, at 50 mL/hr Administer over 10 Hours, ONCE, 1 dose, On Tue10/28/23 at 1500 Start Infusion 10/28/2023 2:33 PM EST 500 mL 50 mL/hr ondansetron (Zofran) tab 8 mg 8 mg, Oral, ONCE, On Tue10/28/23 at 1500, For 1 dose Given 10/28/2023 2:36 PM EST 8 mg sodium chloride 0.9 % flush central line 10 mL 10 mL, IV Push, PRN Other, IV Flush, Starting on Tue10/28/23 at 1425, Until Tue10/28/23 at 2016, For 24 hours, Do not flush if lock, PICC, or central line not in place; IV infusing or unable to flush. Given 10/28/2023 3:29 PM EST 10 mL documented in this encounter Advance Directives Documents on File Type Date Recorded Patient Physical Therapy Resident Expl anation Power of Corporate Director Of Pharmacy 12/12/2018 8:46 AM Vipin viveros Power of Corporate Director Of Pharmacy Power of Corporate Director Of Pharmacy 12/12/2018 8:45 AM Zuleyma ferguson Power of Corporate Director Of Pharmacy Latest Code Status on File Code Status [...] the patient have Health Care Power of Corporate Director Of Pharmacy? Yes, not currently available Full Code 11/21/2018 8:53 AM 11/21/2018 2:27 PM This or bull reflects the patients wishes and were consensually agreed upon. Care Teams Retread Builder Relationship Specialty Start Date End Date Kulwinder Byers MD [address] [place] [address] PCP - General 06/28/03 documented as of this encounter
--- OUTSIDE RECORDS SUMMARY | 2024-01-15 19:53 | External Medical Summary | Summary of Care ---
Author Name Unknown Organization [facility] Address [address] [facility] [place] [address] Phone [phone] Care Team Providers Care Pattern Designer Name Role Phone Kulwinder Byers MD Primary Care Provider Reason for Visit * Reason Comments Chemotherapy Cytotoxan IV Therapy IVIG * Episode Based Medications (Routine) - Authorized Specialty Diagnoses / Procedures Referred By Contac t Referred To Contact Diagnoses Hypogammaglobulinemia (HCC) Multiple myeloma not having achieved remission (HCC) Procedures [place] INJ IVIG PRIVIGEN 500 MG Jorge Allen MD [address] [place] [address] Anc Hem/Onc Scenery Ritu DEPT CLOSED - 09/27/[address] [place] [phone] Referral ID Status Reason Start Date Expiration Date V isits Requested Visits Authorized [id number] Authorized 10/04/2023 11/13/2099 999 999 Encounter Details [...] 30 Tab 0 9 Active nystatin (NYSTOP) 540409 UNIT/GM powder Apply topically to affected area [...] 11:45 AM EST Hem/Onc Treatment Hematology/Oncology Treatment, [address] [place] [phone] Ritu, Chair 3 Hem Onc [address] [place] [address] 03/12/2024 3:00 PM EDT Office Visit Hematology/Oncology [facility] [address] [place] [address] Mariana Florez CRNP [address] [facility] [...] this encounter Medical Devices Implanted Type Area Developer Architect Device Identifier Shelf Expiration Date Model / Serial / Lot Screw Elbow Humeral Total - [id number] Implanted:Qty: 1 on 12/23/2018 by Gautam Jasso MD [place] [facility] [place]: Upper Arm [employer] 09/13/20278400-090 00 / / [id number] Deisi Nexel Total Elbow Implanted:Qty: 1 on 12/23/2018 by Gautam Jasso MD [place] [facility] [place] Right: Upper Arm 04/13/20238400-095 -00 / / [id number] Cement Antibiotic Bone - [id number] Implanted:Qty: 1 on 12/23/2018 by Gautam Jasso MD [place] [facility] [place]: Upper Arm RENY : ORTHOPAEDICS 05/13/2020 6197-9-010 / / [id number] Cement Antibiotic Bone - [id number] Implanted:Qty: 1 on 12/23/2018 by Gautam Jasso MD [place] [facility] [place] Right: Upper Arm RENY : ORTHOPAEDICS 05/13/2020 6197-9-010 / / [id number] Stem Compr Srs Mod [id number] - [id number] Implanted:Qty: 1 on 12/23/2018 by Gautam Jasso MD at [place] [facility] [place] Right: Upper Arm BIOMET : TRAUMA 01/28/2027 [id number] / / [id number] Deisi Nexel Total Elbow Ulnar Component Implanted:Qty: 1 on 12/23/2018 by Gautam Jasso MD [place] [facility] [place] Right: Upper Arm 07/14/2025 00-8400-025 -07 / / [id number] Comprehensive Srs/Nexel Distal Body Implanted:Qty: 1 on 12/23/2018 by Gautam Jasso MD [place] [facility] [place] Right: Upper Arm 03/03/2028 [id number] / / [id number] Valve Ricky 3 Ultra 26mm - [id number] Implanted:Qty: 1 on 05/27/2022 by Jesús Weber MD at [facility] [employer] [id number] 03/17/2023 [id number] / / Port Implant W/8f Poly Cath - [id number] Implanted:Qty: 1 on 12/29/2022 by Sudhir Lovett DO at OR [facility] Right: Chest CR BARD : PERIPHERAL VASCULAR [id number] 02/12/2024 [id number] / / [id number] documented as of this encounter Visit Diagnoses [...] Documents on File Type Date Recorded Patient Ruling Machine Set Up Operator Expl anation Power of Site Acquisition Specialist 12/12/2018 8:46 AM Vipin viveros Power of Site Acquisition Specialist Power of Site Acquisition Specialist 12/12/2018 8:45 AM uZleyma ferguson Power of Site Acquisition Specialist Latest Code Status on File Code [...] the patient have Health Care Power of Site Acquisition Specialist? Yes, not currently available Full Code 11/21/2018 8:53 AM 11/21/2018 2:27 PM This or bull reflects the patients wishes and were consensually agreed upon. Care Teams Pattern Designer Relationship Specialty Start Date End Date Kulwinder Byers MD [address] [place] [address] PCP - General 06/28/03 documented as of this encounter
--- OUTSIDE RECORDS SUMMARY | 2024-01-15 19:53 | External Medical Summary | Summary of Care ---
Author Name Unknown Organization [facility] Address [address] [facility] [place] [address] Phone [phone] Care Team Providers Care Log Sawyer Name Role Phone Kulwinder Byers MD Primary Care Provider [phone] Reason for Visit * Reason Comments Chemotherapy Cytoxan * Episode Based Medications (Routine) - Authorized Specialty Diagnoses / Procedures Referred By Contac t Referred To Contact Diagnoses Multiple myeloma not having achieved remission (HCC) Procedures HI DARATUMUMAB, HYALURONIDASE HI CYCLOPHOSPHAMIDE 100 MG INJ Jorge Allen MD [address] [place] [address] Anc Hem/Onc Scen[place]arret Chaney DEPT CLOSED - 09/27/23 [address] [place] [address] Referral ID Status Reason Start Date Expiration Date V isits Requested Visits Authorized [id number] Authorized 07/23/2022 11/13/2099 999 99 Encounter Details Date Type Department Care Team (Latest Contact Info) Description 10/21/2023 2:30 PM EST Hem/Onc Treatment Hematology/Oncolog y Treatment, [place] [address] [place] [address] Ritu, Chair 6 Hem Onc Scenery [address] [place] [address] Multiple myeloma not having achieved remission (HCC)*; Encounter for antineoplastic chemotherapy Allergies Active Allergy Reactions Criticality Noted Date Comments Adhesive Tape 05/28/2003 documented as of this encounter (statuses as of 01/02/2024) Medications Medication Sig Dispensed Refills Start Date [...] 30 Tab 0 9 Active nystatin (NYSTOP) 786653 UNIT/GM powder Apply topically to affected area [...] before bedtime. 180 Tablet 1 3 Active Ondansetron HCl 8 [...] Tablet 0 3 11/04/20 23 Discontinued(Ref ill) dexAMETHasone 4 MG Oral Tablet (Decadron)Indicat ions:Multiple myeloma not having achieved remission (HCC) Take 20mg once a week 60 Tablet 1 3 10/21/20 23 Discontinued(Ref ill) Potassium Chloride ER 10 MEQ Oral Tablet Extended ReleaseIndication s:Multiple myeloma not having achieved remission (HCC),Hypokalemia TAKE BY MOUTH 1 TABLET IN THE MORNING AND 1 TABLET IN THE EVENING BEFORE BEDTIME. 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 VAD flushed with 10 ml NSS and Heparin 5 ml (100 units/ml). Pt's VAD negative for blood return. Discussed use of cathflo at future appt if blood return is negative again; pt is agreeable. Samson needle removed intact. Goals: Pt will remain free from injury. Possible barriers to meeting goals: pt is a high fall risk Stability of the patient: Moderately unstable - medium risk of patient condition declining or worsening Summary regarding today's goals: Met: Pt remained free from injury during treatment today. Discharged in stable condition. No coverage. * Aditi Seay, RN - 10/21/2023 3:27 PM EST Chair 6 Chemo agents Cytoxan Appetite stable Nausea/Vomiting no Diarrhea no Constipation no Mucositis no Fatigue yes, but stable Bleeding no Infection no Rash no Numbness tingling no Pain no Radiation n/a ABN Labs okay for treatment Alt in Tx: no Return in 1 week VAD accessed; NSS infusing. Safety and Risk for Injury Patient will remain free from injury. Ensure appropriate safety devices are available. Provide and maintain safe environment. Functional status at today's visit: Restricted in [...] 12:00 PM EST Office Visit [facility] [address] Dustin Velásquez MD [address] [place] [address] 01/06/2024 11:45 AM EST Hem/Onc Treatment Hematology/Oncology [address], [address] [address] Ritu, Chair 3 Hem Onc [address] [place] [address] 03/12/2024 3:00 PM EDT Office Visit Hematology/Oncology [facility] [place] [address] [facility] [place] [address] Mariana Florez CRNP 400 [facility] [place] [address] Health Maintenance Due Date Last Done Comments [...] this encounter Medical Devices Implanted Type Area Assembly Riveter Device Identifier Shelf Expiration Date Model / Serial / Lot Screw Elbow Humeral Total - [id number] Implanted:Qty: 1 on 12/23/2018 by Gautam Jasso MD at OR [facility] Right: Upper Arm [employer] 09/13/20278400-090 00 / / [id number] Abel Nexel Total Elbow Implanted:Qty: 1 on 12/23/2018 by Gautam Jasso MD at OR [facility] Right: Upper Arm 04/13/20238400-095 -00 / / [id number] Cement Antibiotic Bone - [id number] Implanted:Qty: 1 on 12/23/2018 by Gautam Jasso MD at OR [facility] Right: Upper Arm RENY : ORTHOPAEDICS 05/13/2020 6197-9-010 / / [id number] Cement Antibiotic Bone - [id number] Implanted:Qty: 1 on 12/23/2018 by Gautam Jasso MD at OR [facility] Right: Upper Arm RENY : ORTHOPAEDICS 05/13/2020 6197-9-010 / / [id number] Stem Compr Srs Mod [id number] - [id number] Implanted:Qty: 1 on 12/23/2018 by Gautam Jasso MD at OR [facility] Right: Upper Arm BIOMET : TRAUMA 01/28/2027 [id number] / / [id number] Abel Nexel Total Elbow Ulnar Component Implanted:Qty: 1 on 12/23/2018 by Gautam Jasso MD at OR [facility] Right: Upper Arm 07/14/2025 00-8400-025 -07 / / [id number] Comprehensive Srs/Nexel Distal Body Implanted:Qty: 1 on 12/23/2018 by Gautam Jasso MD at OR [facility] Right: Upper Arm 03/03/2028 [id number] / / [id number] Valve Ricky 3 Ultra 26mm - [id number] Implanted:Qty: 1 on 05/27/2022 by Jesús Weber MD at [facility]ARDIAC LABS [facility] [employer] [id number] 03/17/2023 [id number] / / Port Implant W/8f Poly Cath - [id number] Implanted:Qty: 1 on 12/29/2022 by Sudhir Lovett DO at OR [facility] Right: Chest CR BARD : PERIPHERAL VASCULAR [id number] 02/12/2024 [id number] / / [id number] documented as of this encounter Visit Diagnoses [...] if not tolerated., ONCE, 1 dose, On Tue10/21/23 at 1515 Start Infusion 10/21/2023 3:15 PM EST 620 mg 500 mL/hr hEParin 100 UNIT/ML Lock Flush inj 500 Units 500 Units (5 mL), IV Lock, PRN Other, IV Flush, Starting on Tue10/21/23 at 1441, Until Tue10/21/23 at 2005, For 24 hours, Do not flush if lock, PICC, or central line not in place; IV infusing or unable to flush. Given 10/21/2023 3:49 PM EST 500 Units NSS infusion FOR HYDRATION Intravenous, at 50 mL/hr Administer over 10 Hours, ONCE, 1 dose, On Tue10/21/23 at 1515 Start Infusion 10/21/2023 2:58 PM EST 500 mL 50 mL/hr ondansetron (Zofran) tab 8 mg 8 mg, Oral, ONCE, On Tue10/21/23 at 1515, For 1 dose Given 10/21/2023 2:58 PM EST 8 mg sodium chloride 0.9 % flush central line 10 mL 10 mL, IV Push, PRN Other, IV Flush, Starting on Tue10/21/23 at 1441, Until Tue10/21/23 at 2005, For 24 hours, Do not flush if lock, PICC, or central line not in place; IV infusing or unable to flush. Given 10/21/2023 3:49 PM EST 10 mL documented in this encounter Advance Directives Documents on File Type Date Recorded Patient Information Systems Security Manager Expl anation Power of Wrecker Operator 12/12/2018 8:46 AM Vipin viveros Power of Wrecker Operator Power of Wrecker Operator 12/12/2018 8:45 AM Zuleyma ferguson Power of Wrecker Operator Latest Code Status on File Code [...] the patient have Health Care Power of Wrecker Operator? Yes, not currently available Full Code 11/21/2018 8:53 AM 11/21/2018 2:27 PM This or bull reflects the patients wishes and were consensually agreed upon. Care Teams Log Sawyer Relationship Specialty Start Date End Date Kulwinder Byers MD [address] [address] PCP - General 06/28/03 documented as of this encounter
--- OUTSIDE RECORDS SUMMARY | 2024-01-15 19:53 | External Medical Summary | Summary of Care ---
Author Name Unknown Organization [facility] Address [address] [place] [address] Phone [phone] Care Team Providers Care Striper Machine Name Role Phone Kulwinder Byers MD Primary Care Provider [phone] Reason for Visit * Reason Onset Date Comments Advice 12/30/2023 Encounter Details Date Type Department Care Team (Late st Contact Info) Description 12/30/2023 Telephone Hematology/Oncology Treatment, [place] [address] [place] [address] Services, Scheduling [address] [place] [address] Advice Allergies Active Allergy Reactions Criticality Noted Date [...] 30 Tab 0 12/25/2018 Active nystatin (NYSTOP) 884039 UNIT/GM powder Apply topically to affected area [...] No 05/27/2022 documented as of this encounter Miscellaneous Notes * Telephone Encounter - Jessi Hendrix OSA - 12/30/2023 4:16 PM EST batool i have a pt on the line that has left her vest on the wheelchair she was in today for her treatment. she has an appt on the she is asking if some one could put it in a safe place for her until she comes next tuesday.? She was in chair 2 if that may help. Pt can be reached at [phone] Please give her a call to update her that it has been found and is put somewhere safe till her nextappt on 01/06 Thank you documented in this encounter Plan of Treatment Upcoming Encounters Date Type Department Care Team (Late st Contact Info) Description 01/02/2024 12:00 PM EST Office Visit Interventional Radiology, [facility] [address] [place] [address] Dustin Velásquez MD [address] [place] [place] [address] 01/06/2024 11:45 AM EST Hem/Onc Treatment Hematology/Oncology Treatment[address] [place] [phone] Ritu, Chair 3 Hem Onc [address] [address] 03/12/2024 3:00 PM EDT Office Visit Hematology/Oncology [address] [place] [phone] Mariana Florez CRNP 400 [place] [address] Health Maintenance Due Date Last Done Comments [...] this encounter Medical Devices Implanted Type Area Nursing Attendant Device Identifier Shelf Expiration Date Model / Serial / Lot Screw Elbow Humeral Total - [id number] Implanted:Qty: 1 on 12/23/2018 by Gautam Jasso MD at OR [facility] Right: Upper Arm [employer] 09/13/20278400-090 -00 / / [id number] Deisi Nexel Total Elbow Implanted:Qty: 1 on 12/23/2018 by Gautam Jasso MD at OR [facility] Right: Upper Arm 04/13/20238400-095 -00 / / [id number] Cement Antibiotic Bone - [id number] Implanted:Qty: 1 on 12/23/2018 by Gautam Jasso MD at OR [facility] Right: Upper Arm RENY : ORTHOPAEDICS 05/13/2020 6197-9-010 / / [id number] Cement Antibiotic Bone - [id number] Implanted:Qty: 1 on 12/23/2018 by Gautam Jasso MD at OR [facility] Right: Upper Arm RENY : ORTHOPAEDICS 05/13/2020 6197-9-010 / / [id number] Stem Compr Srs Mod [id number] - [id number] Implanted:Qty: 1 on 12/23/2018 by Gautam Jasso MD at OR [facility] Right: Upper Arm BIOMET : TRAUMA 01/28/2027 [id number] / / [id number] Deisi Nexel Total Elbow Ulnar Component Implanted:Qty: 1 on 12/23/2018 by Gautam Jasso MD at OR [facility] Right: Upper Arm 07/14/20258400-025 -07 / / [id number] Comprehensive Srs/Nexel Distal Body Implanted:Qty: 1 on 12/23/2018 by Gautam Jasso MD at OR [facility] Right: Upper Arm 03/03/2028 [id number] / / [id number] Valve Ricky 3 Ultra 26mm - [id number] Implanted:Qty: 1 on 05/27/2022 by Jesús Weber MD at [facility]ARD[facility] LABS [facility] [employer] [id number] 03/17/2023 [id number] / / Port Implant W/8f Poly Cath - [id number] Implanted:Qty: 1 on 12/29/2022 by Sudhir Lovett DO at OR [facility] Right: Chest CR BARD : PERIPHERAL VASCULAR [id number] 02/12/2024 [id number] / / [id number] documented as of this encounter Advance Directives Documents on File Type Date Recorded Patient City Plant Supervisor Expl anation Power of Blueprint Cutter 12/12/2018 8:46 AM Vipin viveros Power of Blueprint Cutter Power of Blueprint Cutter 12/12/2018 8:45 AM Zuleyma ferguson Power of Blueprint Cutter Latest Code Status on File Code Status [...] the patient have Health Care Power of Blueprint Cutter? Yes, not currently available Full Code 11/21/2018 8:53 AM 11/21/2018 2:27 PM This or bull reflects the patients wishes and were consensually agreed upon. Care Teams Striper Machine Relationship Specialty Start Date End Date Kulwinder Byers MD [address] [place] [address] PCP - General 06/28/03 documented as of this encounter
--- OUTSIDE RECORDS SUMMARY | 2024-01-15 19:53 | External Medical Summary | Summary of Care ---
Author Name Unknown Organization [facility] Address [address] [facility] [place] [address] Phone [phone] Care Team Providers Care Antique Dealer Name Role Phone Kulwinder Byers MD Primary Care Provider [phone] Reason for Visit * Reason Comments Chemotherapy [id number] Cytoxan * Episode Based Medications (Routine) - Authorized Specialty Diagnoses / Procedures Referred By Contac t Referred To Contact Diagnoses Multiple myeloma not having achieved remission (HCC) Procedures NC DARATUMUMAB, HYALURONIDASE NC CYCLOPHOSPHAMIDE 100 MG INJ Jorge Allen MD [address] [place] [address] Anc Hem/Onc Scenery Ritu DEPT CLOSED - 09/27/[address] [place] [address] Referral ID Status Reason Start Date Expiration Date V isits Requested Visits Authorized [id number] Authorized 07/23/2022 11/13/2099 999 99 Encounter Details Date Type Department Care Team (Latest Contact Info) Description 10/28/2023 2:30 PM EST Hem/Onc Treatment Hematology/Oncolog y Treatment, [place] [address] [place] [address] Ritu, Chair 4 Hem Onc Scenery [address] [place] [phone] Multiple myeloma not having achieved remission (HCC)*; Encounter for antineoplastic chemotherapy Allergies Active Allergy Reactions Criticality Noted Date Comments Adhesive Tape 05/28/2003 documented as of this encounter (statuses as of 01/01/2024) Medications Medication Sig Dispensed Refills Start Date [...] 30 Tab 0 9 Active nystatin (NYSTOP) 362785 UNIT/GM powder Apply topically to affected area [...] as of this encounter (statuses as of 01/01/2024) Active Problems Problem Noted Date Diagnosed Date [...] as of this encounter (statuses as of 01/01/2024) Resolved Problems Problem Noted Date Diagnosed Date 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 Reviewed [facility] cardiology notes. Pt states she will follow up with MA group Dr. Bethea. Chemo agents cytoxan Appetite [...] Visit Interventional Radiology, [facility] [address] [place] [address] Dustin Velásquez MD [address] [place] [address] 01/06/2024 11:45 AM EST Hem/Onc Treatment Hematology/Oncology Treatment, [place] [address] [facility] [place] [address] Ritu, Chair 3 Hem Onc [address] [place] [address] 03/12/2024 3:00 PM EDT Office Visit Hematology/Oncology [facility] Tila Chaney [address] [place] [address] [place] [address] Mariana Mejias CRNP [address] [place] [address] Health Maintenance Due Date Last Done Comments [...] this encounter Medical Devices Implanted Type Area Drapery Cutter Machine Device Identifier Shelf Expiration Date Model / Serial / Lot Screw Elbow Humeral Total - [id number] Implanted:Qty: 1 on 12/23/2018 by Gautam Jasso MD at OR [facility] Right: Upper Arm [employer] INC 09/13/2027-090 / / [id number] Abel Nexel Total Elbow Implanted:Qty: 1 on 12/23/2018 by Gautam Jasso MD at OR [facility] Right: Upper Arm 04/13/2023- / / [id number] Cement Antibiotic Bone - [id number] Implanted:Qty: 1 on 12/23/2018 by Gautam Jasso MD at OR [facility] Right: Upper Arm RENY : ORTHOPAEDICS 05/13/2020 6197-9-010 / / [id number] Cement Antibiotic Bone - [id number] Implanted:Qty: 1 on 12/23/2018 by Gautam Jasso MD at OR [facility] Right: Upper Arm RENY : ORTHOPAEDICS 05/13/2020 6197-9-010 / / [id number] Stem Compr Srs Mod [id number] - [id number] Implanted:Qty: 1 on 12/23/2018 by Gautam Jasso MD at OR [facility] Right: Upper Arm BIOMET : TRAUMA 01/28/2027 [id number] / / [id number] Nexel Total Elbow Ulnar Component Implanted:Qty: 1 on 12/23/2018 by Gautam Jasso MD at OR [facility] Right: Upper Arm 07/14/2025 00-8400-025 -07 / / [id number] Comprehensive Srs/Nexel Distal Body Implanted:Qty: 1 on 12/23/2018 by Gautam Jasso MD at OR [facility] Right: Upper Arm 03/03/2028 [id number] / / [id number] Valve Ricky 3 Ultra 26mm - [id number] Implanted:Qty: 1 on 05/27/2022 by Jesús Weber MD at [facility]S [facility] [employer] [id number] 03/17/2023 [id number] / / Port Implant W/8f Poly Cath - [id number] Implanted:Qty: 1 on 12/29/2022 by Sudhir Lovett DO at OR [facility] Right: Chest CR BARD : PERIPHERAL VASCULAR [id number] 02/12/2024 [id number] / / [id number] documented as of this encounter Visit Diagnoses [...] Documents on File Type Date Recorded Patient Packer Inspector Expl anation Power of Tennis Desk Team Member 12/12/2018 8:46 AM Vipin viveros Power of Tennis Desk Team Member Power of Tennis Desk Team Member 12/12/2018 8:45 AM Zuleyma ferguson Power of Tennis Desk Team Member Latest Code Status on File Code Status [...] the patient have Health Care Power of Tennis Desk Team Member? Yes, not currently available Full Code 11/21/2018 8:53 AM 11/21/2018 2:27 PM This or bull reflects the patients wishes and were consensually agreed upon. Care Teams Antique Dealer Relationship Specialty Start Date End Date Kulwinder Byers MD [address] [place] [address] PCP - General 06/28/03 documented as of this encounter
--- OUTSIDE RECORDS SUMMARY | 2024-01-15 19:53 | External Medical Summary | Summary of Care ---
Author Name Unknown Organization [facility] Address [address] [facility] [place] [address] Phone [phone] Care Team Providers Care Preschool Head Teacher Name Role Phone Kulwinder Byers MD Primary Care Provider [phone] Reason for Visit * Reason Comments Chemotherapy Cytoxan * Episode Based Medications (Routine) - Authorized Specialty Diagnoses / Procedures Referred By Contac t Referred To Contact Diagnoses Multiple myeloma not having achieved remission (HCC) Procedures [place] DARATUMUMAB, HYALURONIDASE [place] CYCLOPHOSPHAMIDE 100 MG INJ Jorge Allen MD [address] [place] [address] Anc Hem/Onc Scenegarret Chaney DEPT CLOSED - 09/27/23 [address] [place] [address] Referral ID Status Reason Start Date Expiration Date V isits Requested Visits Authorized [id number] Authorized 07/23/2022 11/13/2099 999 99 Encounter Details Date Type Department Care Team (Latest Contact Info) Description 11/04/2023 2:30 PM EST Hem/Onc Treatment Hematology/Oncolog y Treatment, [place] [address] [place] [address] Ritu, Chair 8 Hem Onc Scenery [address] [place] [phone] Multiple myeloma not having achieved remission (HCC)*; [...] 30 Tab 0 9 Active nystatin (NYSTOP) 643269 UNIT/GM powder Apply topically to affected area [...] Sign Reading Time Taken Comments Blood Pressure 117/69 11/04/2023 2:17 PM EST Pulse 110 11/04/2023 2:17 PM EST Temperature 36.5 C (97.7 F) 11/04/2023 2:17 PM ES T Respiratory Rate 18 11/04/2023 2:17 PM EST Oxygen Saturation 93% 11/04/2023 2:17 PM EST Inhaled Oxygen Concentration - - Weight 107.9 kg (237 lb 12.8 oz) 11/04/2023 2:17 PM EST Height - - Body Mass Index 47.94 10/04/2023 12:36 PM EST documented in this [...] Nursing Notes * Aditi Seay RN - 11/04/2023 4:34 PM EST Functional status at today's visit: [...] during treatment today. Discharged in stable condition. CT assisted. * Aditi Seay, RN - 11/04/2023 3:02 PM EST Chair 7 Chemo agents Cytoxan Appetite stable Nausea/Vomiting no Diarrhea no Constipation no Mucositis no Fatigue yes Bleeding no Infection no Rash no Numbness tingling no Pain yes, L hip pain, which is ongoing. Pt takes Oxy IR PRN Radiation n/a ABN Labs okay for treatment [...] 12:00 PM EST Office Visit Interventional Radiology, [facility] [address] [facility] [place] [address] Dustin Velásquez MD 400 [place] [address] 01/06/2024 11:45 AM EST Hem/Onc Treatment Hematology/Oncology Treatment, [address] [address] Ritu, Chair 3 Hem Onc [address] [place] [address] 03/12/2024 3:00 PM EDT Office Visit Hematology/Oncology [facility] [address] [place] [address] Mariana Florez CRNP 400 [place] [address] Health Maintenance Due Date Last Done Comments DXA Scan 1940 COVID-19 Vaccine (#1) 1945 Depression Screening 1952 Diabetic Eye Exam 1958 Diabetic Foot Exam 1958 DTaP,Tdap,and Td Vaccines (1 - Tdap) 1959 Zoster Vaccines (1 of 2) 1959 Albumin/Creatinine Ratio 12/11/2021 12/11/2020 Influenza Vaccine (FLU shot) (#1) 2023 HbA1c 04/19/2024 10/19/2023, /06/2021, 06/13/2020, Additional history exists GFR 12/29/2024 12/29/2023, [...] this encounter Medical Devices Implanted Type Area Personnel Analyst Device Identifier Shelf Expiration Date Model / Serial / Lot Screw Elbow Humeral Total - [id number] Implanted:Qty: 1 on 12/23/2018 by Gautam Jasso MD at [place] [facility] Right: Upper Arm [employer] 09/13/20278400-090 -00 / / [id number] Abel Nexel Total Elbow Implanted:Qty: 1 on 12/23/2018 by Gautam Jasso MD at OR [facility] Right: Upper Arm 04/13/2023-8400-095 -00 / / [id number] Cement Antibiotic Bone - [id number] Implanted:Qty: 1 on 12/23/2018 by Gautam Jasso MD at OR [facility] Right: Upper Arm RENY : ORTHOPAEDICS 05/13/2020 6197-9-010 / / [id number] Cement Antibiotic Bone - [id number] Implanted:Qty: 1 on 12/23/2018 by Gautam Jasso MD at OR [facility] Right: Upper Arm RENY : ORTHOPAEDICS 05/13/2020 6197-9-010 / / [id number] Stem Compr Srs Mod 0m130hv - [id number] Implanted:Qty: 1 on 12/23/2018 by Gautam Jasso MD at OR [facility] Right: Upper Arm BIOMET : TRAUMA 01/28/2027 [id number] / / [id number] Abel Nexel Total Elbow Ulnar Component Implanted:Qty: 1 on 12/23/2018 by Gautam Jasso MD at OR [facility] Right: Upper Arm 07/14/2025 00-8400-025 -07 / / [id number] Comprehensive Srs/Nexel Distal Body Implanted:Qty: 1 on 12/23/2018 by Gautam Jasso MD at OR [facility] Right: Upper Arm 03/03/2028 [id number] / / [id number] Valve Ricky 3 Ultra 26mm - [id number] Implanted:Qty: 1 on 05/27/2022 by Jesús Weber MD at [facility]ARD[facility]S [facility] [employer] [id number] 03/17/2023 [id number] / / Port Implant W/8f Poly Cath - [id number] Implanted:Qty: 1 on 12/29/2022 by Sudhir Lovett DO at OR [facility] Right: Chest CR BARD : PERIPHERAL VASCULAR [id number] 02/12/2024 [id number] / / [id number] documented as of this encounter Visit Diagnoses [...] if not tolerated., ONCE, 1 dose, On Tue11/04/23 at 1500 Start Infusion 11/04/2023 2:53 PM EST 620 mg 500 mL/hr hEParin 100 UNIT/ML Lock Flush inj 500 Units 500 Units (5 mL), IV Lock, PRN Other, IV Flush, Starting on Tue11/04/23 at 1428, Until Tue11/04/23 at 2035, For 24 hours, Do not flush if lock, PICC, or central line not in place; IV infusing or unable to flush. Given 11/04/2023 3:29 PM EST 500 Units NSS infusion FOR HYDRATION Intravenous, at 50 mL/hr Administer over 10 Hours, ONCE, 1 dose, On Tue11/04/23 at 1500 Rate Change 11/04/2023 3:29 PM EST 50 mL/hr Start Infusion 11/04/2023 2:39 PM EST 500 mL 50 mL/hr ondansetron (Zofran) tab 8 mg 8 mg, Oral, ONCE, On Tue11/04/23 at 1500, For 1 dose Given 11/04/2023 2:38 PM EST 8 mg sodium chloride 0.9 % flush central line 10 mL 10 mL, IV Push, PRN Other, IV Flush, Starting on Tue11/04/23 at 1428, Until Tue11/04/23 at 2035, For 24 hours, Do not flush if lock, PICC, or central line not in place; IV infusing or unable to flush. Given 11/04/2023 3:29 PM EST 10 mL documented in this encounter Advance Directives Documents on File Type Date Recorded Patient Clinical Staff Pharmacist Expl anation Power of Machinist Bench 12/12/2018 8:46 AM Vipin viveros Power of Machinist Bench Power of Machinist Bench 12/12/2018 8:45 AM Zuleyma ferguson Power of Machinist Bench Latest Code Status on File Code Status [...] the patient have Health Care Power of Machinist Bench? Yes, not currently available Full Code 11/21/2018 8:53 AM 11/21/2018 2:27 PM This or bull reflects the patients wishes and were consensually agreed upon. Care Teams Preschool Head Teacher Relationship Specialty Start Date End Date Kulwinder Byers MD [address] [place] [address] PCP - General 06/28/03 documented as of this encounter
--- OUTSIDE RECORDS SUMMARY | 2024-01-15 19:53 | External Medical Summary | Summary of Care ---
Author Name Unknown Organization [facility] Address [address] [facility] [place] [address] Phone [phone] Care Team Providers Care Bodybuilder Name Role Phone Kulwinder Byers MD Primary Care Provider Reason for Visit * Reason Comments Chemotherapy C12D15 Cytoxan * Episode Based Medications (Routine) - Authorized Specialty Diagnoses / Procedures Referred By Contac t Referred To Contact Diagnoses Multiple myeloma not having achieved remission (HCC) Procedures [place] DARATUMUMAB, HYALURONIDASE [place] CYCLOPHOSPHAMIDE 100 MG INJ Jorge Allen MD [address] [place] [address] Anc Hem/Onc Scenery Ritu DEPT CLOSED - 09/27/[address] [place] [address] Referral ID Status Reason Start Date Expiration Date V isits Requested Visits Authorized [id number] Authorized 07/23/2022 11/13/2099 999 99 Encounter Details Date Type Department Care Team (Latest Contact Info) Description 10/28/2023 2:30 PM EST Hem/Onc Treatment Hematology/Oncolog y Treatment, [place] [address] [place] [address] Ritu, Chair 4 Hem Onc Scenery [address] [place] [phone] Multiple myeloma not having achieved remission (HCC)*; [...] 30 Tab 0 9 Active nystatin (NYSTOP) 724227 UNIT/GM powder Apply topically to affected area [...] Pt instructed to follow-up with cardiology. Reviewed [facility] cardiology notes. Pt states she will follow up with [place] group Dr. Bethea. Chemo agents cytoxan Appetite [...] 12:00 PM EST Office Visit Interventional Radiology, [facility] 400 [place] [address] Dustin Velásquez MD 400 [place] [address] 01/06/2024 11:45 AM EST Hem/Onc Treatment Hematology/Oncology Treatment, [place] [address] [facility] [place] [address] Ritu, Chair 3 Hem Onc [address] [place] [address] 03/12/2024 3:00 PM EDT Office Visit Hematology/Oncology [facility] State Tila Chaney [address] [place] [address] [place] [address] Mariana Mejias CRNP [address] [place] [address] Health Maintenance Due Date Last Done Comments [...] this encounter Medical Devices Implanted Type Area Service Car Operator Device Identifier Shelf Expiration Date Model / Serial / Lot Screw Elbow Humeral Total - [id number] Implanted:Qty: 1 on 12/23/2018 by Gautam Jasso MD at [place] [facility] Right: Upper Arm [employer] 09/13/2027-090 / / [id number] Abel Nexel Total Elbow Implanted:Qty: 1 on 12/23/2018 by Gautam Jasso MD at [place] [facility] Right: Upper Arm 04/13/2023- / / [id number] Cement Antibiotic Bone - [id number] Implanted:Qty: 1 on 12/23/2018 by Gautam Jasso MD at OR [facility] Right: Upper Arm RENY : ORTHOPAEDICS 05/13/2020 6197-9-010 / / [id number] Cement Antibiotic Bone - [id number] Implanted:Qty: 1 on 12/23/2018 by Gautam Jasso MD at [place] [facility] Right: Upper Arm RENY : ORTHOPAEDICS 05/13/2020 6197-9-010 / / [id number] Stem Compr Srs Mod 6y555ze - [id number] Implanted:Qty: 1 on 12/23/2018 by Gautam Jasso MD at [place] [facility] Right: Upper Arm BIOMET : TRAUMA 01/28/2027 [id number] / / [id number] Abel Nexel Total Elbow Ulnar Component Implanted:Qty: 1 on 12/23/2018 by Gautam Jasso MD at OR [facility] Right: Upper Arm 07/14/2025 00-8400-025 -07 / / [id number] Comprehensive Srs/Nexel Distal Body Implanted:Qty: 1 on 12/23/2018 by Gautam Jasso MD at OR [facility] Right: Upper Arm 03/03/2028 [id number] / / [id number] Valve Ricky 3 Ultra 26mm - [id number] Implanted:Qty: 1 on 05/27/2022 by Jesús Weber MD at [facility] [employer] [id number] 03/17/2023 [id number] / / Port Implant W/8f Poly Cath - [id number] Implanted:Qty: 1 on 12/29/2022 by Sudhir Lovett DO at OR [facility] Right: Chest CR BARD : PERIPHERAL VASCULAR [id number] 02/12/2024 [id number] / / [id number] documented as of this encounter Visit Diagnoses [...] Documents on File Type Date Recorded Patient Orthotics Prosthetics Assistant Expl anation Power of Clothing Trades Workers 12/12/2018 8:46 AM Vipin viveros Power of Clothing Trades Workers Power of Clothing Trades Workers 12/12/2018 8:45 AM Zuleyma ferguson Power of Clothing Trades Workers Latest Code Status on File Code Status [...] the patient have Health Care Power of Clothing Trades Workers? Yes, not currently available Full Code 11/21/2018 8:53 AM 11/21/2018 2:27 PM This or bull reflects the patients wishes and were consensually agreed upon. Care Teams Bodybuilder Relationship Specialty Start Date End Date Kulwinder Byers MD [address] [place] [address] PCP - General 06/28/03 documented as of this encounter
--- OUTSIDE RECORDS SUMMARY | 2024-01-15 19:53 | External Medical Summary | Summary of Care ---
Author Name Unknown Organization [facility] Address [address] [facility] [place] [address] Phone [phone] Care Team Providers Care Pole Shaver Name Role Phone Kulwinder Byers MD Primary Care Provider Reason for Visit * Reason Comments Chemotherapy Cytoxan * Episode Based Medications (Routine) - Authorized Specialty Diagnoses / Procedures Referred By Contac t Referred To Contact Diagnoses Multiple myeloma not having achieved remission (HCC) Procedures [place] DARATUMUMAB, HYALURONIDASE [place] CYCLOPHOSPHAMIDE 100 MG INJ Jorge Allen MD [address] [place] [address] Anc Hem/Onc Scen[place]arret Chaney DEPT CLOSED - 09/27/23 [address] [place] [address] Referral ID Status Reason Start Date Expiration Date V isits Requested Visits Authorized [id number] Authorized 07/23/2022 11/13/2099 999 99 Encounter Details Date Type Department Care Team (Latest Contact Info) Description 11/04/2023 2:30 PM EST Hem/Onc Treatment Hematology/Oncolog y Treatment, [place] [address] [place] [address] Ritu, Chair 8 Hem Onc Scenery [address] [place] [phone] Multiple myeloma not having achieved remission (HCC)*; [...] 30 Tab 0 9 Active nystatin (NYSTOP) 050944 UNIT/GM powder Apply topically to affected area [...] 12:00 PM EST Office Visit Interventional Radiology, [facility] [address] [facility] [place] [address] Dustin Velásquez MD 400 [place] [address] 01/06/2024 11:45 AM EST Hem/Onc Treatment Hematology/Oncology Treatment, [address] [address] Ritu, Chair 3 Hem Onc [address] [place] [address] 03/12/2024 3:00 PM EDT Office Visit Hematology/Oncology [facility] [address] [place] [address] Mariana Florez CRNP 400 [place] [address] Health Maintenance Due Date Last Done Comments [...] this encounter Medical Devices Implanted Type Area Marine Diver Device Identifier Shelf Expiration Date Model / Serial / Lot Screw Elbow Humeral Total - [id number] Implanted:Qty: 1 on 12/23/2018 by Gautam Jasso MD at [place] [facility] Right: Upper Arm [employer] 09/13/20278400-090 -00 / / [id number] Abel Nexel Total Elbow Implanted:Qty: 1 on 12/23/2018 by Gautam Jasso MD at OR [facility] Right: Upper Arm 04/13/2023-8400-095 -00 / / [id number] Cement Antibiotic Bone - [id number] Implanted:Qty: 1 on 12/23/2018 by Gautam Jasso MD at OR [facility] Right: Upper Arm RENY : ORTHOPAEDICS 05/13/2020 6197-9-010 / / [id number] Cement Antibiotic Bone - [id number] Implanted:Qty: 1 on 12/23/2018 by Gautam Jasso MD at OR [facility] Right: Upper Arm RENY : ORTHOPAEDICS 05/13/2020 6197-9-010 / / [id number] Stem Compr Srs Mod 7p977gk - [id number] Implanted:Qty: 1 on 12/23/2018 by Gautam Jasso MD at OR [facility] Right: Upper Arm BIOMET : TRAUMA 01/28/2027 [id number] / / [id number] Abel Nexel Total Elbow Ulnar Component Implanted:Qty: 1 on 12/23/2018 by Gautam Jasso MD at OR [facility] Right: Upper Arm 07/14/2025 00-8400-025 -07 / / [id number] Comprehensive Srs/Nexel Distal Body Implanted:Qty: 1 on 12/23/2018 by Gautam Jasso MD at OR [facility] Right: Upper Arm 03/03/2028 [id number] / / [id number] Valve Ricky 3 Ultra 26mm - [id number] Implanted:Qty: 1 on 05/27/2022 by Jesús Weber MD at [facility] [employer] [id number] 03/17/2023 [id number] / / Port Implant W/8f Poly Cath - [id number] Implanted:Qty: 1 on 12/29/2022 by Sudhir Lovett DO at OR [facility] Right: Chest CR BARD : PERIPHERAL VASCULAR [id number] 02/12/2024 [id number] / / [id number] documented as of this encounter Visit Diagnoses [...] Documents on File Type Date Recorded Patient Accident Investigator Expl anation Power of Department Store Manager 12/12/2018 8:46 AM Vipin viveros Power of Department Store Manager Power of Department Store Manager 12/12/2018 8:45 AM Zuleyma ferguson Power of Department Store Manager Latest Code Status on File Code [...] the patient have Health Care Power of Department Store Manager? Yes, not currently available Full Code 11/21/2018 8:53 AM 11/21/2018 2:27 PM This or bull reflects the patients wishes and were consensually agreed upon. Care Teams Pole Shaver Relationship Specialty Start Date End Date Kulwinder Byers MD [address] [place] [address] PCP - General 06/28/03 documented as of this encounter
--- OUTSIDE RECORDS SUMMARY | 2024-01-15 19:53 | External Medical Summary | Summary of Care ---
Author Name Unknown Organization [facility] Address [address] [facility] [place] [address] Phone [phone] Care Team Providers Care Diamond Finishing Supervisor Name Role Phone Kulwinder Byers MD Primary Care Provider Reason for Visit * Reason Comments Chemotherapy C12D15 Cytoxan * Episode Based Medications (Routine) - Authorized Specialty Diagnoses / Procedures Referred By Contac t Referred To Contact Diagnoses Multiple myeloma not having achieved remission (HCC) Procedures [place] DARATUMUMAB, HYALURONIDASE [place] CYCLOPHOSPHAMIDE 100 MG INJ Jorge Allen MD [address] [place] [address] Anc Hem/Onc Scenery Ritu DEPT CLOSED - 09/27/[address] [place] [address] Referral ID Status Reason Start Date Expiration Date V isits Requested Visits Authorized [id number] Authorized 07/23/2022 11/13/2099 999 99 Encounter Details Date Type Department Care Team (Latest Contact Info) Description 10/28/2023 2:30 PM EST Hem/Onc Treatment Hematology/Oncolog y Treatment, [place] [address] [place] [address] Ritu, Chair 4 Hem Onc Scenery [address] [place] [phone] Multiple myeloma not having achieved remission (HCC)*; [...] 30 Tab 0 9 Active nystatin (NYSTOP) 889772 UNIT/GM powder Apply topically to affected area [...] Pt instructed to follow-up with cardiology. Reviewed [facility] cardiology notes. Pt states she will follow up with [place] group Dr. Bethea. Chemo agents cytoxan Appetite [...] 12:00 PM EST Office Visit Interventional Radiology, [facility] 400 [place] [address] Dustin Velásquez MD 400 [place] [address] 01/06/2024 11:45 AM EST Hem/Onc Treatment Hematology/Oncology Treatment, [place] [address] [facility] [place] [address] Ritu, Chair 3 Hem Onc [address] [place] [address] 03/12/2024 3:00 PM EDT Office Visit Hematology/Oncology [facility] State Tila Chaney [address] [place] [address] [place] [address] Mariana Mejias CRNP 400 [place] [address] Health Maintenance Due Date Last Done Comments [...] this encounter Medical Devices Implanted Type Area Car Icer Device Identifier Shelf Expiration Date Model / Serial / Lot Screw Elbow Humeral Total - [id number] Implanted:Qty: 1 on 12/23/2018 by Gautam Jasso MD [place] [facility] Right: Upper Arm [employer] 09/13/2027-090 / / [id number] Abel Nexel Total Elbow Implanted:Qty: 1 on 12/23/2018 by Gautam Jasso MD at [place] [facility] Right: Upper Arm 04/13/2023- / / [id number] Cement Antibiotic Bone - [id number] Implanted:Qty: 1 on 12/23/2018 by Gautam Jasso MD at [place] [facility] Right: Upper Arm RENY : ORTHOPAEDICS 05/13/2020 6197-9-010 / / [id number] Cement Antibiotic Bone - [id number] Implanted:Qty: 1 on 12/23/2018 by Gautam Jasso MD at [place] [facility] Right: Upper Arm RENY : ORTHOPAEDICS 05/13/2020 6197-9-010 / / [id number] Stem Compr Srs Mod 1f851hs - [id number] Implanted:Qty: 1 on 12/23/2018 by Gautam Jasso MD at [place] [facility] Right: Upper Arm BIOMET : TRAUMA 01/28/2027 [id number] / / [id number] Abel Nexel Total Elbow Ulnar Component Implanted:Qty: 1 on 12/23/2018 by Gautam Jasso MD at [place] [facility] Right: Upper Arm 07/14/2025 00-8400-025 -07 / / [id number] Comprehensive Srs/Nexel Distal Body Implanted:Qty: 1 on 12/23/2018 by Gautam Jasso MD at [place] [facility] Right: Upper Arm 03/03/2028 [id number] / / [id number] Valve Ricky 3 Ultra 26mm - [id number] Implanted:Qty: 1 on 05/27/2022 by Jesús Weber MD at [facility] [employer] [id number] 03/17/2023 [id number] / / Port Implant W/8f Poly Cath - [id number] Implanted:Qty: 1 on 12/29/2022 by Sudhir Lovett DO at OR [facility] Right: Chest CR BARD : PERIPHERAL VASCULAR [id number] 02/12/2024 [id number] / / [id number] documented as of this encounter Visit Diagnoses [...] Documents on File Type Date Recorded Patient Shoe Folder Expl anation Power of Perinatal Instructor 12/12/2018 8:46 AM Vipin viveros Power of Perinatal Instructor Power of Perinatal Instructor 12/12/2018 8:45 AM Zuleyma ferguson Power of Perinatal Instructor Latest Code Status on File Code [...] the patient have Health Care Power of Perinatal Instructor? Yes, not currently available Full Code 11/21/2018 8:53 AM 11/21/2018 2:27 PM This or bull reflects the patients wishes and were consensually agreed upon. Care Teams Diamond Finishing Supervisor Relationship Specialty Start Date End Date Kulwinder Byers MD [address] [place] [address] PCP - General 06/28/03 documented as of this encounter
--- OUTSIDE RECORDS SUMMARY | 2024-01-15 19:53 | External Medical Summary | Summary of Care ---
Author Name Unknown Organization [facility] Address [address] [facility] [place] [address] Phone [phone] Care Team Providers Care Verification Clerk Name Role Phone Kulwinder Byers MD Primary Care Provider Reason for Visit * Reason Comments Chemotherapy Cytoxan * Episode Based Medications (Routine) - Authorized Specialty Diagnoses / Procedures Referred By Contac t Referred To Contact Diagnoses Multiple myeloma not having achieved remission (HCC) Procedures RI DARATUMUMAB, HYALURONIDASE RI CYCLOPHOSPHAMIDE 100 MG INJ Jorge Allen MD [address] [place] [address] Anc Hem/Onc [facility] DEPT CLOSED - 09/27/23 [address] [address] Referral ID Status Reason Start Date Expiration Date V isits Requested Visits Authorized [id number] Authorized 07/23/2022 11/13/2099 999 99 Encounter Details Date Type Department Care Team (Latest Contact Info) Description 10/21/2023 2:30 PM EST Hem/Onc Treatment Hematology/Oncolog y Treatment, [address] [place] [address] Ritu, Chair 6 Hem Onc Scenery [address] [place] [address] Multiple myeloma not having achieved remission (HCC)*; [...] 30 Tab 0 9 Active nystatin (NYSTOP) 949499 UNIT/GM powder Apply topically to affected area [...] 12:00 PM EST Office Visit Interventional Radiology, [facility] [address] [facility] [place] [address] Dustin Velásquez MD 400 [place] [address] 01/06/2024 11:45 AM EST Hem/Onc Treatment Hematology/Oncology [address], [address] [address] Ritu, Chair 3 Hem Onc [address] [place] [address] [address] 03/12/2024 3:00 PM EDT Office Visit Hematology/Oncology [facility] [address] [facility] [address] [address] Mariana Florez CRNP 400 [facility] [place] [address] Health Maintenance Due Date Last Done Comments [...] this encounter Medical Devices Implanted Type Area Iap Displays Analyst Device Identifier Shelf Expiration Date Model / Serial / Lot Screw Elbow Humeral Total - [id number] Implanted:Qty: 1 on 12/23/2018 by Gautam Jasso MD at OR [facility] Right: Upper Arm [employer] 09/13/20278400-090 00 / / [id number] Nexel Total Elbow Implanted:Qty: 1 on 12/23/2018 by Gautam Jasso MD at OR [facility] Right: Upper Arm 04/13/20238400-095 -00 / / [id number] Cement Antibiotic Bone - [id number] Implanted:Qty: 1 on 12/23/2018 by Gautam Jasso MD at OR [facility] Right: Upper Arm RENY : ORTHOPAEDICS 05/13/2020 6197-9-010 / / [id number] Cement Antibiotic Bone - [id number] Implanted:Qty: 1 on 12/23/2018 by Gautam Jasso MD at OR [facility] Right: Upper Arm RENY : ORTHOPAEDICS 05/13/2020 6197-9-010 / / [id number] Stem Compr Srs Mod [id number] - [id number] Implanted:Qty: 1 on 12/23/2018 by Gautam Jasso MD at OR [facility] Right: Upper Arm BIOMET : TRAUMA 01/28/2027 [id number] / / [id number] Nexel Total Elbow Ulnar Component Implanted:Qty: 1 on 12/23/2018 by Gautam Jasso MD at OR [facility] Right: Upper Arm 07/14/2025 00-8400-025 -07 / / [id number] Comprehensive Srs/Nexel Distal Body Implanted:Qty: 1 on 12/23/2018 by Gautam Jasso MD at OR [facility] Right: Upper Arm 03/03/2028 [id number] / / [id number] Valve Ricky 3 Ultra 26mm - [id number] Implanted:Qty: 1 on 05/27/2022 by Jesús Weber MD at [facility]S [facility] [employer] [facility] [employer] [id number] 03/17/2023 [id number] / / Port Implant W/8f Poly Cath - [id number] Implanted:Qty: 1 on 12/29/2022 by Sudhir Lovett DO at OR [facility] Right: Chest CR BARD : PERIPHERAL VASCULAR [id number] 02/12/2024 [id number] / / [id number] documented as of this encounter Visit Diagnoses [...] Documents on File Type Date Recorded Patient Bingo Floater Expl anation Power of Stock Ranch Supervisor 12/12/2018 8:46 AM Vipin viveros Power of Stock Ranch Supervisor Power of Stock Ranch Supervisor 12/12/2018 8:45 AM Zuleyma ferguson Power of Stock Ranch Supervisor Latest Code Status on File Code [...] the patient have Health Care Power of Stock Ranch Supervisor? Yes, not currently available Full Code 11/21/2018 8:53 AM 11/21/2018 2:27 PM This or bull reflects the patients wishes and were consensually agreed upon. Care Teams Verification Clerk Relationship Specialty Start Date End Date Kulwinder Byers MD [address] [address] PCP - General 06/28/03 documented as of this encounter
--- OUTSIDE RECORDS SUMMARY | 2024-01-15 19:53 | External Medical Summary | Summary of Care ---
Author Name Unknown Organization [facility] Address [address] [facility] [place] [address] Phone [phone] Care Team Providers Care Senior Net Software Engineer Name Role Phone Kulwinder Byers MD Primary Care Provider Reason for Visit * Reason Comments Chemotherapy Cytotoxan IV Therapy IVIG * Episode Based Medications (Routine) - Authorized Specialty Diagnoses / Procedures Referred By Contac t Referred To Contact Diagnoses Hypogammaglobulinemia (HCC) Multiple myeloma not having achieved remission (HCC) Procedures IN INJ IVIG PRIVIGEN 500 MG Jorge Allen MD [address] [place] [address] Anc Hem/Onc Scenery Ritu DEPT CLOSED - 09/27/[address] [place] [address] Referral ID Status Reason Start Date Expiration Date V isits Requested Visits Authorized [id number] Authorized 10/04/2023 11/13/2099 999 999 Encounter Details [...] 30 Tab 0 9 Active nystatin (NYSTOP) 212683 UNIT/GM powder Apply topically to affected area [...] 11:45 AM EST Hem/Onc Treatment Hematology/Oncology Treatment, [address] [place] [id number] Ritu, Chair 3 Hem Onc [address] [place] [address] 03/12/2024 3:00 PM EDT Office Visit Hematology/Oncology [facility] [address] [place] [address] Mariana Florez CRNP 400 [facility] [place] [address] Health Maintenance Due [...] encounter Medical Devices Implanted Type Area Surgical Assistant Certified Device Identifier Shelf Expiration Date Model / Serial / Lot Screw Elbow Humeral Total - [id number] Implanted:Qty: 1 on 12/23/2018 by Gautam Jasso MD [place] [facility] [place]: Upper Arm [employer] 09/13/20278400-090 00 / / [id number] Deisi Nexel Total Elbow Implanted:Qty: 1 on 12/23/2018 by Gautam Jasso MD at [place] [facility] Right: Upper Arm 04/13/20238400-095 -00 / / [id number] Cement Antibiotic Bone - [id number] Implanted:Qty: 1 on 12/23/2018 by Gautam Jasso MD at [place] [facility] Right: Upper Arm RENY : ORTHOPAEDICS 05/13/2020 6197-9-010 / / [id number] Cement Antibiotic Bone - [id number] Implanted:Qty: 1 on 12/23/2018 by Gautam Jasso MD at [place] [facility] Right: Upper Arm RENY : ORTHOPAEDICS 05/13/2020 6197-9-010 / / [id number] Stem Compr Srs Mod [id number] - [id number] Implanted:Qty: 1 on 12/23/2018 by Gautam Jasso MD at [place] [facility] Right: Upper Arm BIOMET : TRAUMA 01/28/2027 [id number] / / [id number] Deisi Nexel Total Elbow Ulnar Component Implanted:Qty: 1 on 12/23/2018 by Gautam Jasso MD at [place] [facility] Right: Upper Arm 07/14/2025 00-8400-025 -07 / / [id number] Comprehensive Srs/Nexel Distal Body Implanted:Qty: 1 on 12/23/2018 by Gautam Jasso MD at [place] [facility] Right: Upper Arm 03/03/2028 [id number] / / [id number] Valve Ricky 3 Ultra 26mm - [id number] Implanted:Qty: 1 on 05/27/2022 by Jesús Weber MD at [facility] [employer] [id number] 03/17/2023 [id number] / / Port Implant W/8f Poly Cath - [id number] Implanted:Qty: 1 on 12/29/2022 by Sudhir Lovett DO at OR [facility] Right: Chest CR BARD : PERIPHERAL VASCULAR [id number] 02/12/2024 [id number] / / [id number] documented as of this encounter Visit Diagnoses [...] Documents on File Type Date Recorded Patient Curriculum And Instruction Director Expl anation Power of Peg Driver 12/12/2018 8:46 AM Vipin viveros Power of Peg Driver Power of Peg Driver 12/12/2018 8:45 AM Zuleyma ferguson Power of Peg Driver Latest Code Status on File Code Status [...] the patient have Health Care Power of Peg Driver? Yes, not currently available Full Code 11/21/2018 8:53 AM 11/21/2018 2:27 PM This or bull reflects the patients wishes and were consensually agreed upon. Care Teams Senior Net Software Engineer Relationship Specialty Start Date End Date Kulwinder Byers MD [address] [place] [address] PCP - General 06/28/03 documented as of this encounter
--- OUTSIDE RECORDS SUMMARY | 2024-01-15 19:53 | External Medical Summary | Summary of Care ---
Author Name Unknown Organization [facility] Address [address] [facility] [place] [address] Phone [phone] Care Team Providers Care Customs Officer Name Role Phone Kulwinder Byers MD Primary Care Provider [phone] Reason for Visit * Reason Comments IV Therapy IVIG; hold chemo * Episode Based Medications (Routine) - Authorized Specialty Diagnoses / Procedures Referred By Contac t Referred To Contact Diagnoses Hypogammaglobulinemia (HCC) Multiple myeloma not having achieved remission (HCC) Procedures LA INJ IVIG PRIVIGEN 500 MG Jorge Allen MD [address] [place] [address] Anc Hem/Onc [place] [facility] DEPT CLOSED - 09/27/23 [address] [place] [address] Referral ID Status Reason Start Date Expiration Date V isits Requested Visits Authorized [id number] Authorized 10/04/2023 11/13/2099 999 999 Encounter Details Date Type Department Care Team (Latest Contact Info) Description 11/11/2023 9:30 AM EST Hem/Onc Treatment Hematology/Oncolo gy Treatment, [place] [address] [place] [address] Hypogammaglobulinemia (HCC)*; Multiple myeloma not having achieved [...] 30 Tab 0 9 Active nystatin (NYSTOP) 761991 UNIT/GM powder Apply topically to affected area [...] Visit Interventional Radiology, [facility] [address] [place] [address] Dustin Velásquez MD 400 [place] [address] 01/06/2024 11:45 AM EST Hem/Onc Treatment Hematology/Oncology Treatment, [place] [address] [place], [place] [address] Ritu, Chair 3 Hem Onc [facility] [address] [place] [address] 03/12/2024 3:00 PM EDT Office Visit Hematology/Oncology [facility] [address] [place] [address] Mariana Florez CRNP 400 [place] [address] Health Maintenance Due Date Last Done Comments [...] this encounter Medical Devices Implanted Type Area E Business Specialist Device Identifier Shelf Expiration Date Model / Serial / Lot Screw Elbow Humeral Total - [id number] Implanted:Qty: 1 on 12/23/2018 by Gautam Jasso MD at [place] [facility] [place] Right: Upper Arm [employer] 09/13/2027 / / [id number] Deisi Nexel Total Elbow Implanted:Qty: 1 on 12/23/2018 by Gautam Jasso MD at [place] [facility] [place] Right: Upper Arm 04/13/2023 / / [id number] Cement Antibiotic Bone - [id number] Implanted:Qty: 1 on 12/23/2018 by Gautam Jasso MD at [place] [facility] [place] Right: Upper Arm RENY : ORTHOPAEDICS 05/13/2020 6197-9-010 / / [id number] Cement Antibiotic Bone - [id number] Implanted:Qty: 1 on 12/23/2018 by Gautam Jasso MD at [place] [facility] [place] Right: Upper Arm RENY : ORTHOPAEDICS 05/13/2020 6197-9-010 / / [id number] Stem Compr Srs Mod [id number] - [id number] Implanted:Qty: 1 on 12/23/2018 by Gautam Jasso MD at [place] [facility] [place] Right: Upper Arm BIOMET : TRAUMA 01/28/2027 [id number] / / [id number] Deisi Nexel Total Elbow Ulnar Component Implanted:Qty: 1 on 12/23/2018 by Gautam Jasso MD at [place] [facility] [place] Right: Upper Arm 07/14/202500-025 - / / [id number] Comprehensive Srs/Nexel Distal Body Implanted:Qty: 1 on 12/23/2018 by Gautam Jasso MD at [place] [facility] [place] Right: Upper Arm 03/03/2028 [id number] / / [id number] Valve Ricky 3 Ultra 26mm - [id number] Implanted:Qty: 1 on 05/27/2022 by Jesús Weber MD at [facility] [place] 4Less [id number] 03/17/2023 [id number] / / Port Implant W/8f Poly Cath - [id number] Implanted:Qty: 1 on 12/29/2022 by Sudhir Lovett DO at OR [facility] Right: Chest CR BARD : PERIPHERAL VASCULAR [id number] 02/12/2024 [id number] / / [id number] documented as of this encounter Visit Diagnoses [...] Documents on File Type Date Recorded Patient Jalousie Installer Expl anation Power of Sewing Machines Salesperson 12/12/2018 8:46 AM Vipin viveros Power of Sewing Machines Salesperson Power of Sewing Machines Salesperson 12/12/2018 8:45 AM Zuleyma ferguson Power of Sewing Machines Salesperson Latest Code Status on File Code Status [...] the patient have Health Care Power of Sewing Machines Salesperson? Yes, not currently available Full Code 11/21/2018 8:53 AM 11/21/2018 2:27 PM This or bull reflects the patients wishes and were consensually agreed upon. Care Teams Customs Officer Relationship Specialty Start Date End Date Kulwinder Byers MD [address] [address] PCP - General 06/28/03 documented as of this encounter
--- OUTSIDE RECORDS SUMMARY | 2024-01-15 19:54 | External Medical Summary | Summary of Care ---
Author Name Unknown Organization [facility] Address [address] [place] [address] Phone [phone] Care Team Providers Care Sales Project Manager Name Role Phone Kulwinder Byers MD Primary Care Provider [phone] Reason for Visit * Reason Onset Date Comments Advice 12/28/2023 Mariana Florez Encounter Details Date Type Department Care Team (Late st Contact Info) Description 12/28/2023 Telephone Hematology/Oncology [facility] [place] [facility] [address] Services, Scheduling [address] [place] [address] Advice (Mariana Florez) Allergies Active Allergy Reactions Criticality Noted Date [...] 30 Tab 0 12/25/2018 Active nystatin (NYSTOP) 916943 UNIT/GM powder Apply topically to affected area [...] encounter Miscellaneous Notes * Telephone Encounter - Citlaly Dunn LPN - 12/28/2023 3:42 PM EST APPT FOR 12/30 APPLIED * Telephone Encounter - Love Quick RN - 12/28/2023 3:37 PM EST Called patient- she states that she was told her port couldn't be used so she didn't think she could get chemo. No issues with peripheral access in the past. Reviewed with Dr Allen- ok to still get treatment Tuesday. Patient aware, would like appt added backon. Scheduling: please add patients appt at 1pm on Saturday 12/30 back on- please add to appt note "do notuse port". Thanks! * Telephone Encounter - Citlaly Dunn LPN - 12/28/2023 2:44 PM EST Patient had to cancel this Tuesday Cytoxan treatment due to port study with IR being changed to 01/02. She will keep her appt for 01/06 which is for cytoxan and IVIG Please update her beacon plan for the cytoxan?? * Telephone Encounter - Eloise eDnise OSA - 12/28/2023 1:23 PM EST Pt of Mariana Gautam Pt needs to cancel and rsc treatment on 12/30 Please call pt back at [phone] documented in this encounter Plan of Treatment Upcoming Encounters Date Type Department Care Team (Late st Contact Info) Description 12/30/2023 1:00 PM EST Hem/Onc Treatment Hematology/Oncology Treatment, [place] [address] [place] [address] Ritu, Chair 2 Hem Onc Scenery [address] [facility] [place] [address] 01/02/2024 12:00 PM EST Office Visit Interventional Radiology, [address] [place] [address] Dustin Velásquez MD [address] [place] [address] 01/06/2024 11:45 AM EST Hem/Onc Treatment Hematology/Oncology Treatment, [place] [address] [place] [address] [place], Chair 5 Hem Onc [facility] [address] 03/12/2024 3:00 PM EDT Office Visit Hematology/Oncology [facility] [place] [address] [place] [address] Mariana Florez CRNP [address] [place] [address] Health Maintenance Due Date Last Done Comments [...] this encounter Medical Devices Implanted Type Area Software Product Manager Device Identifier Shelf Expiration Date Model / Serial / Lot Screw Elbow Humeral Total - [id number] Implanted:Qty: 1 on 12/23/2018 by Gautam Jasso MD at OR [facility] Right: Upper Arm [employer] 09/13/2027-0 - / / [id number] Deisi Nexel Total Elbow Implanted:Qty: 1 on 12/23/2018 by Gautam Jasso MD at OR [facility] Right: Upper Arm 04/13/2023 / / [id number] Cement Antibiotic Bone - [id number] Implanted:Qty: 1 on 12/23/2018 by Gautam Jasso MD at OR [facility] Right: Upper Arm RENY : ORTHOPAEDICS 05/13/2020 6197-9-010 / / [id number] Cement Antibiotic Bone - [id number] Implanted:Qty: 1 on 12/23/2018 by Gautam Jasso MD at OR [facility] Right: Upper Arm RENY : ORTHOPAEDICS 05/13/2020 6197-9-010 / / [id number] Stem Compr Srs Mod [id number] - [id number] Implanted:Qty: 1 on 12/23/2018 by Gautam Jasso MD at OR [facility] Right: Upper Arm BIOMET : TRAUMA 01/28/2027 [id number] / / [id number] Deisi Nexel Total Elbow Ulnar Component Implanted:Qty: 1 on 12/23/2018 by Gautam Jasso MD at OR [facility] Right: Upper Arm 07/14/202500-025 - / / [id number] Comprehensive Srs/Nexel Distal Body Implanted:Qty: 1 on 12/23/2018 by Gautam Jasso MD at OR [facility] Right: Upper Arm 03/03/2028 [id number] / / [id number] Valve Ricky 3 Ultra 26mm - [id number] Implanted:Qty: 1 on 05/27/2022 by Jesús Weber MD at [facility] [employer] [id number] 03/17/2023 [id number] / / Port Implant W/8f Poly Cath - [id number] Implanted:Qty: 1 on 12/29/2022 by Sudhir Lovett DO at OR [facility] Right: Chest CR BARD : PERIPHERAL VASCULAR [id number] 02/12/2024 [id number] / / [id number] documented as of this encounter Advance Directives Documents on File Type Date Recorded 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 Yes, not currently available Full Code 11/21/2018 8:53 AM 11/21/2018 2:27 PM This or bull reflects the patients wishes and were consensually agreed upon. Care Teams Sales Project Manager Relationship Specialty Start Date End Date Kulwinder Byers MD [address] [address] PCP - General 06/28/03 documented as of this encounter
--- OUTSIDE RECORDS SUMMARY | 2024-01-15 19:54 | External Medical Summary | Summary of Care ---
Author Name Unknown Organization [facility] Address [address] [place] [place] [address] Phone [phone] Care Team Providers Care Senior Quality Control Inspector Name Role Phone Kulwinder Byers MD Primary Care Provider [phone] Reason for Referral * Precert (Within 10 days (routine)) - Authorized Specialty Diagnoses / Procedures Referred By Darell santiago Referred To Contact Radiology Diagnoses Multiple myeloma not having achieved remission (HCC) Hypogammaglobulinemia (HCC) Encounter for adjustment and management of vascular access device Procedures IR INTERVENTIONAL RADIOLOGY PROCEDURE IN OR IR VENOUS ACCESS Jorge Oliveira MD [address] [place] [address] Referral ID Status Reason Start Date Expiration Date V isits Requested Visits Authorized [id number] Authorized 12/15/2023 999 999 Reason for Visit * Auth/Cert Specialty Diagnoses / Procedures Referred By Contjanay t Referred To Contact Diagnoses Hypogammaglobulinemia (HCC) Multiple myeloma not having achieved remission (HCC) Encounter for adjustment and management of vascular access device Hypogammaglobulinemia (HCC) [D80.1] Multiple myeloma not having achieved remission (HCC) [C90.00] Encounter for adjustment and management of vascular access device [Z45.2] Procedures VASCULAR SURGERY PROCEDURE NEC UNLISTED PROCEDURE VASCULAR SURGERY Referral ID Status Reason Start Date Expiration Date Visits Re quested Visits Authorized [id number] Encounter Details Date Type Department Care Team (Latest Contact Info) Description 12/28/2023 9:52 AM EST - 12/28/2023 1:25 PM EST Hospital Encounter OR GL, Operating Room, [facility] - 4th Floor [address] [address] Dustin Velásquez MD [address] [address] Discharge Disposition: Home - Self Care Allergies Active Allergy Reactions Criticality Noted Date Comments Adhesive Tape 05/28/2003 documented as of this encounter (statuses as of 12/29/2023) Medications Medication Sig Dispensed Refills Start Date [...] 30 Tab 0 12/25/2018 Active nystatin (NYSTOP) 773822 UNIT/GM powder Apply topically to affected area 2 times a day. Apply to abd. Skin folds 15 g 0 12/25/2018 Active atorvaSTATin (LIPITOR) 10 MG Tablet daily. 0 01/24/2019 Active Steel Rolling WalkerIndications :Multiple myeloma not [...] 05/24/2023 Active Furosemide 20 MG Oral Tablet (Lasix)Indication [...] 10/21/2023 Active dexAMETHasone 4 MG Oral Tablet (Decadron)Indicat ions:Multiple myeloma not having achieved remission (HCC) Take 20mg once a week 60 Tablet 1 10/21/2023 Active oxyCODONE HCl 5 MG Oral Tablet (Oxy IR)Indications:Mu ltiple myeloma not having achieved remission (HCC),Cancer related pain Take 1 Tablet by mouth every 6 hours as needed for Pain, Breakthrough. 60 Tablet 0 12/23/2023 Active Albuterol Sulfate HFA 108 (90 Base) MCG/ACT Inhalation Aerosol Solution Inhale 2 Puffs by mouth every 6 hours as needed for Shortness of Breath. 0 10/03/2023 Active Ondansetron HCl 8 MG Oral Tablet (Zofran)Indicatio ns:Multiple myeloma not having achieved remission (HCC) Take by mouth 1 Tablet every 8 hours as needed for Nausea. 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] No 05/27/2022 documented as of this encounter Discharge Instructions * Discharge Instr - AVS* Dustin Velásquez MD - 12/28/2023 12:54 PM EST Discharge Date: 12/28/2023 Provider: Dr. Dustin Velásquez If you are experiencing any problems related to your procedure, please contact Interventional Radiology at [phone] during normal business hours: Tuesday- Tuesday 7:30 am - 4 pm. If a problem occursoutside of normal business hours, please call the hospital bobcat operator at [phone] and ask for theInterventional Radiologist business operations analyst. Contact scheduling for Interventional Radiology at [phone] during normal business hours: Tuesday-Tuesday, 7:30 am - 4 pm. The information below provides you with the instructions and the list of medications you need to betaking following discharge from the hospital. If you have any questions, please ask before leaving.Please carry this letter with you when you see your doctor in the clinic. If you have questions, you can reach us at the numbers above. SPECIAL INSTRUCTIONS Return to [facility] Tuesday. Call for appointment: Home Care If you experience pain or discomfort at the site you may use a cold pack on the site and/or take acetaminophen (Tylenol) or your preferred pain medicine as directed. Avoid strenuous activity for 24 to 48 hours after the procedure. Do not lift anything heavier than 10 pounds for 3 days after the procedure. Gradually increase your activity after 24 to 48 hours after the procedure. Keep dressing clean and dry; change as needed. Dressing can be removed in 24 hours. You may shower after 24 hours. Gently wash the area and pat it dry. Please DO NOT take a bath, soak in a hot tub, or swim until the wound is completely healed. When to Call Interventional Radiology Call Interventional Radiology right away if you have any of the following: Fever above 100 degrees Fahrenheit Increased bleeding, redness, swelling, warmth, or discharge at the incision site. Constant or increasing pain, numbness, coldness, or tingling around the incision area. Vomiting or nausea that does not go away If at any time you experience any of the following or feel you are having a medical emergency, [email or web address] for emergency assistance. Chest Pain Sudden, severe shortness of breath Rapid heart rate Sudden onset of weakness Coughing up blood See your referring physician for a follow-up appointment. Do not smoke or use tobacco products in any way! If you feel suicidal or homicidal, please call the crisis hotline at [phone]-QGDN ([phone]) Driving: You may resume driving today . Diet: You may resume your current diet as tolerated. Return to work or school: You may return to school or work 1 days after the procedure, unless otherwise instructed by the physician. documented in this encounter Progress Notes * Dustin Velásquez MD - 12/28/2023 12:53 PM EST [address] [address] OUTPATIENT SURGERY DISCHARGE SUMMARY NOTE Name: Chantel Roy Location: [place] [facility] Date: 12/28/2023 Time: 12:53 PM Surgery Date: 12/28/2023 Procedure: Procedure(s): UNLISTED PROCEDURE VASCULAR SURGERY Right Surgeon: Surgeon(s): Dustin Velásquez MD Discharge Diagnosis: fibrin sheath After examination of this patient, I have determined she is ready for discharge to home when the patient meets criteria. Discharge instructions were given to the patient. documented in this encounter H&P Notes * Dustin Velásquez MD - 12/28/2023 12:04 PM EST HISTORY & PHYSICAL - Interventional Radiology Service [address] [address] Name: Chantel Roy Location: OR [facility]/[place] Date: 12/28/2023 Time: 12:05 PM CHIEF COMPLAINT: Port check. No blood return HISTORY OF PRESENT ILLNESS: Port for 1 year. No blood return. Past Medical History: Diagnosis Date Acute cholecystitis 1976 Aortic stenosis Bilateral pulmonary embolism (HCC) Cardiac pacemaker in situ Carpal tunnel syndrome unknown cch Complete heart block (HCC) Dependent edema DM (diabetes mellitus), type 2 (HCC) Monoclonal gammopathy Pathologic fracture of right humerus Plasmacytoma (HCC) Past Surgical History: Procedure Laterality Date ABD WALL HERNIA REPAIR, LAP, REDUCIBLE ANESTH, TOTAL KNEE REPLACEMENT Bilateral BONE BIOPSY, TROCAR/NEEDLE, DEEP Right 11/21/2018 BIOPSY BONE TROCAR OR NEEDLE DEEP performed by Gautam Jasso MD at [place] [facility] BONE MARROW ASPIRATION 12/23/2018 BONE MARROW ASPIRATION performed by Gautam Jasso MD at [place] [facility] CARPAL TUNNEL SURGERY Carpal Tunnel repair right DILATION AND CURETTAGE (D&C) FLUORO CHOLECYSTOGRAM GALLBLADDER W CONTRAST 1975 HUMERUS TUMOR RESECTION Right 12/23/2018 RADICAL RESECTION TUMOR SHAFT DISTAL HUMERUS performed by Gautam Jasso MD at OR [facility] INFORMATION 1989 wisdom teeth removal INSER TUNN ACC DEV;5 YRS/OLDER Right 12/29/2022 INSERT TUNNELED CENTRAL VENOUS ACCESS WITH SUBQ PORT performed by Sudhir Lovett DO at OR [facility] LIGATE/CUT OVIDUCT(S) 1965 RECONSTRUCT ELBOW W/HUMERAL REPLACE Right 12/23/2018 ARTHROPLASTY ELBOW WITH DISTAL HUMERUS REPLACEMENT performed by Gautam Jasso MD at OR [facility] REMOVAL OF APPENDIX REMOVAL OF TONSILS, UNDER AGE 12 REMOVE CATARACT, INSERT LENS PROSTH REMOVE GALLBLADDER REPLACE AORTIC VALVE, PERCUTANEOUS FEMORAL Bilateral 05/27/2022 REPLACE AORTIC VALVE, PERCUTANEOUS FEMORAL performed by Jesús Weber MD at [facility] REPLACE AORTIC VALVE, PERCUTANEOUS FEMORAL 05/27/2022 REPLACE AORTIC VALVE, PERCUTANEOUS FEMORAL performed by Elton Aguirre MD at [facility] Social History Socioeconomic History Marital status: Spouse name: Not on file Number of children: Not on file Years of education: Not on file Highest education level: Not on file Occupational History Not on file Tobacco Use Smoking status: Never Smokeless tobacco: Never Vaping Use Vaping Use: Never used Substance and Sexual Activity Alcohol use: No Comment: occassional Drug use: No Sexual activity: Not on file Other Topics Concern Not on file Social History Narrative Not on file Social Determinants of Health Financial Resource Strain: Not on file Food Insecurity: Not on file Transportation Needs: Not on file Physical Activity: Not on file Stress: Not on file Social Connections: Not on file Intimate Partner Violence: Not on file Housing Stability: Not on file Family History Problem Relation Age of Onset Cancer Sister breast Cancer Aunt (Unspecified) stomach Ovarian cancer Aunt (Unspecified) Cancer Father mouth Diabetes Grandmother (Maternal) Diabetes Mother borderline Review of patient's allergies indicates: Allergen Reactions Adhesive Tape No current facility-administered medications for this encounter. REVIEW OF SYSTEMS: Constitutional: (-) fever chills sweats or weight loss Cardiovascular: (-) negative: no chest pain, dyspnea, syncope, or palpitations Pulmonary: (-) negative: no cough, wheezing, or shortness of breath Abdominal/GI: (-) negative: no pain, heartburn, dysphagia, bleeding, change in bowel habits, nauseaor vomiting OBJECTIVE: BP 124/81 | Pulse 110 | Temp 36.7 C (98.1 F) (Temporal Artery) | Resp 18 | Ht 1.5 m (4' 11.06")| Wt 110.9 kg (244 lb 7.8 oz) | SpO2 93% | BMI 49.29 kg/m | BSA 2.15 m PHYSICAL EXAM: Constitutional: no acute distress CV: normal rate and rhythm, no murmur, gallops or rub Chest: normal respiratory effort, lungs clear to auscultation and percussion, breath sounds normal Abdomen: normal: soft, bowel sounds normal, no masses, tenderness or organomegaly LABS: CBC Results: PT INR Results: Results for orders placed or performed during the hospital encounter of 05/27/22 PT INR Result Value Ref Range Prothrombin Time 15.0 (H) 11.5 - 14.6 seconds INR 1.16 (H) 0.84 - 1.14 PT INR Result Value Ref Range Prothrombin Time 14.0 11.5 - 14.6 seconds INR 1.06 0.84 - 1.14 Results for orders placed or performed in visit on 05/20/22 PT INR Result Value Ref Range Prothrombin Time 32.5 (H) 11.5 - 14.6 seconds INR 3.19 (H) 0.84 - 1.14 BUN Results: Lab Results Component Value Date/Time BUN - [facility] 20 12/22/2023 03:30 PM BUN - [facility] 20 12/15/2023 03:30 PM BUN - [facility] 16 12/08/2023 03:00 PM BUN - [facility] 14 12/11/2020 09:50 AM BUN - [facility] 14 12/11/2020 09:47 AM BUN - [facility] 10 11/13/2020 09:23 AM Creatinine Results: Lab Results Component Value Date/Time CREATININE - [facility] 0.8 12/22/2023 03:30 PM CREATININE - [facility] 0.8 12/15/2023 03:30 PM CREATININE - [facility] 0.8 12/08/2023 03:00 PM CREATININE - [facility] 0.9 12/11/2020 09:50 AM CREATININE - [facility] 0.9 12/11/2020 09:47 AM CREATININE - [facility] 0.9 11/13/2020 09:23 AM CREATININE, RANDOM URINE - [facility] 126 12/11/2020 09:50 AM CREATININE, RANDOM URINE - [facility] 134 12/08/2018 10:05 AM Potassium Results: Lab Results Component Value Date/Time POTASSIUM - [facility] 4.3 12/22/2023 03:30 PM POTASSIUM - [facility] 4.3 12/15/2023 03:30 PM POTASSIUM - [facility] 4.2 12/08/2023 03:00 PM POTASSIUM - [facility] 3.9 12/11/2020 09:50 AM POTASSIUM - [facility] 3.9 12/11/2020 09:47 AM POTASSIUM - [facility] 3.8 11/13/2020 09:23 AM INFORMED CONSENT: Yes PRE-SEDATION ASSESSMENT IMPRESSION/PLAN: Port check, possible fibrin sheath, possible tpa Dustin Velásquez MD documented in this encounter Nursing Notes * Sarah Yap RN - 12/28/2023 12:50 PM EST Pt returned to [facility] with port accessed. Plan is to administer Alteplase. Dr. Velásquez here to administer Alteplase. Alteplase administered and port de- accessed without difficulty. Pt to be discharged after d/c instructions given. documented in this encounter OR Notes * OR Surgeon - Dustin Velásquez MD - 12/28/2023 1:25 PM EST Procedure: [Right] chest medical port placement 12/28/23 INDICATION: [Multiple myeloma] [in need of central intravenous access for chemotherapy.] ATTENDING (OPERATING PHYSICIAN): [Christen] CONSENT: After a detailed discussion of the procedure, risks, benefits and alternative treatment options, informed consent was obtained. TIME OUT: A time out procedure was performed. The patient's identification was verified. Informed consent with agreement of procedure, site and position was obtained. All necessary equipment was available prior to procedure. CONTRAST: No contrast was administered. COMPLICATIONS: None. ANESTHESIA: None MEDICATIONS: See MAR PROCEDURE DESCRIPTION: The [right] neck and chest were prepped and draped in the usual sterile fashion. Using a noncoring needle, access to the port was achieved. A no blood could be aspirated. Contrast was injected showing a small fibrin sheath several cm from the tip. 2 mg tPA was then injected and left to dwell. The noncoring needle was then removed and the patient was discharged. The patient tolerated the procedure well. Findings: Fibrin sheath Impression: Fibrin sheath Plan: Patient to return on Tuesday for reassessment after tPA was allowed to dissolve the fibrin sheath. * Operative Report Brief - Dustin Velásquez MD - 12/28/2023 12:51 PM EST PROCEDURE NOTE - Interventional Radiology [facility]-[address] [address] Name: Chantel Roy Location: [facility]/OR Date: 12/28/2023 Time: 12:52 PM PROCEDURE: port check. TPA administered [employer]LEMENT[employer] S[employer]OL PRINCIPAL: Dr. Dustin Velásquez ANESTHESIA: conscious sedation COMPLICATIONS: none SPECIMEN: none ESTIMATED BLOOD LOSS: negligible FINDINGS: probable fibrin sheath, distal tip about 2 cm from tip documented in this encounter Miscellaneous Notes * Pre-Sedation Assessment - Dustin Velásquez MD - 12/28/2023 12:03 PM EST PRE-SEDATION ASSESSMENT PRE-SEDATION ASSESSMENT: Port Check; Possible Fibrin Sheath Stripping; Possible Tpa Level of sedation planned: Moderate Patient's allergies reviewed: Yes H&P Review / Interval Note Documentation: There is no H&P on file. Difficulty with sedation / anesthesia: No Sleep apnea: No History of snoring: No History of difficult intubation: No Decreased ROM neck flexion/extension: No Tracheal deviation: No Decreased ability to open mouth / TMJ: No Loose teeth / dentures / partial: No Congenital deformities / abnormalities: No Dysphagia: No Mallampati Classification: II - soft palate, uvula, fauces visible Chest: Clear Heart: Regular Rhythm ASA Risk Stratification (Select One): ASA 2 - Mild systemic disease, no functional limitations The patient was reevaluated immediately prior to the sedation: 12/28/2023 12:04 PM documented in this encounter Plan of Treatment Upcoming Encounters Date Type Department Care Team (Late st Contact Info) Description 12/30/2023 1:00 PM EST Hem/Onc Treatment Hematology/[address] [address] Ritu, Chair 2 Hem Onc [address] [place] [address] 01/02/2024 12:00 PM EST Office Visit Interventional Radiology, [facility] [address] [place] [address] Dustin Velásquez MD [address] [place] [address] 01/06/2024 11:45 AM EST Hem/Onc Treatment Hematology/Oncology Treatment, [address] [place] [address] Ritu, Chair 5 Hem Onc [address] [place] [address] 03/12/2024 3:00 PM EDT Office Visit Hematology/Oncology [facility] Ritu [address] [place] [address] Mariana Florez CRNP [address] [place] [address] Health Maintenance Due Date Last Done Comments DXA Scan 1940 COVID-19 Vaccine (#1) 1945 Depression Screening 1952 Diabetic Eye Exam 1958 Diabetic Foot Exam 1958 DTaP,Tdap,and Td Vaccines (1 - Tdap) 1959 Zoster Vaccines (1 of 2) 1959 Hepatitis B (1 of 3 - Risk 3-dose series) 2000 Albumin/Creatinine Ratio 12/11/2021 12/11/2020 Influenza Vaccine (FLU shot) (#1) 2023 HbA1c 04/19/2024 10/19/2023, 11/15, 06/13/2020, Additional history exists GFR 12/22/2024 12/22/2023, 11/2023, 12/08/2023, Additional history exists Pneumococcal Vaccine: 65+ Years Completed 02/18/2017, 01/12/2010 GARDASIL-HPV IMMUNIZATION SERIES Aged Out No longer eligible based on patient's age to complete this topic MENINGOCOCCAL (MENACTRA/MENVEO) Aged Out No longer eligible based on patient's age to complete this topic documented as of this encounter Medical Devices Implanted Type Area Janitor Cleaner Device Identifier Shelf Expiration Date Model / Serial / Lot Comprehensive Srs/Nexel Distal Body Implanted:Qty: 1 on 12/23/2018 by Gautam Jasso MD at [place] [facility] Right: Upper Arm 03/03/2028 [id number] / / [id number] Valve Ricky 3 Ultra 26mm - [id number] Implanted:Qty: 1 on 05/27/2022 by Jesús Weber MD at [facility] [employer] [id number] 03/17/2023 [id number] / / Port Implant W/8f Poly Cath - [id number] Implanted:Qty: 1 on 12/29/2022 by Sudhir Lovett DO at OR [facility] Right: Chest CR BARD : PERIPHERAL VASCULAR [id number] 02/12/2024 [id number] / / [id number] documented as of this encounter Procedures Procedure Name Priority Date/Time Associated Diagnosis Comments IR INTERVENTIONAL RADIOLOGY PROCEDURE IN OR Routine 12/28/2023 12:38 PM EST Multiple myeloma not having achieved remission (HCC) Hypogammaglobuline stefany (HCC) Encounter for adjustment and management of vascular access device GLUCOSE METER, POINT OF CARE FRANCIS 12/28/2023 10:19 AM EST documented in this encounter Results * IR INTERVENTIONAL RADIOLOGY PROCEDURE IN OR (12/28/2023 12:38 PM EST) 12/28/2023 4:[address] [facility] - 12/28/2023 4:36 PM EST IMPRESSION: Fibrin sheath Plan: Patient to return on Tuesday for reassessment after tPA was allowed to dissolve the fibrin sheath. Narrative [facility] - 12/28/2023 4:36 PM EST PROCEDURE: Right chest medical port placement 12/28 INDICATION: Multiple myeloma in need of central intravenous access for chemotherapy. ATTENDING (OPERATING PHYSICIAN): Christen CONSENT: After a detailed discussion of the procedure, risks, benefits and alternative treatment options, informed consent was obtained. TIME OUT: A time out procedure was performed. The patient's identification was verified. Informed consent with agreement of procedure, site and position was obtained. All necessary equipment was available prior to procedure. CONTRAST: No contrast was administered. COMPLICATIONS: None. ANESTHESIA: None MEDICATIONS: See MAR PROCEDURE DESCRIPTION: The right neck and chest were prepped and draped in the usual sterile fashion. Using a noncoring needle, access to the port was achieved. A no blood could be aspirated. Contrast was injected showing a small fibrin sheath several cm from the tip. 2 mg tPA was then injected and left to dwell. The noncoring needle was then removed and the patient was discharged. The patient tolerated the procedure well. FINDINGS: Fibrin sheath Procedure Note Dustin Velásquez MD - 12/28/2023 PROCEDURE: Right chest medical port placement 12/28 INDICATION: Multiple myeloma in need of central intravenous access forchemotherapy. ATTENDING (OPERATING PHYSICIAN): Christen CONSENT: After a detailed discussion of the procedure, risks, benefits andalternative treatment options, informed consent was obtained. TIME OUT: A time out procedure was performed. The patient's identificationwas verified. Informed consent with agreement of procedure, site andposition was obtained. All necessary equipment was available prior toprocedure. CONTRAST: No contrast was administered. COMPLICATIONS: None. ANESTHESIA: None MEDICATIONS: See MAR PROCEDURE DESCRIPTION: The right neck and chest were prepped and draped inthe usual sterile fashion. Using a noncoring needle, access to the portwas achieved. A no blood could be aspirated. Contrast was injectedshowing a small fibrin sheath several cm from the tip. 2 mg tPA was theninjected and left to dwell. The noncoring needle was then removed and thepatient was discharged. The patient tolerated the procedure well. FINDINGS: Fibrin sheath IMPRESSION IMPRESSION: Fibrin sheath Plan: Patient to return on Tuesday for reassessment after tPA was allowedto dissolve the fibrin sheath. Jorge Allen MD [facility] SPECIAL PROCEDUR ES [facility] * (ABNORMAL) GLUCOSE METER, POINT OF CARE (12/28/2023 10:19 AM EST) [facility] Signature Glucose Meter 143(H) 70 - 120 mg/dL 12/28/2023 10:22 AM EST [facility] Blood Whole blood specimen / Unknown 12/28/2023 10:19 AM EST 12/28/2023 10:22 AM EST Dustin Velásquez MD LAB POINT OF CARE TE ST DOCKED DEVICE UNSOLICITED RESULTS Performing Organization Address City/[facility] Co de Phone Number [facility] [address] [place] [address] documented in this encounter Visit Diagnoses Diagnosis Multiple myeloma not having achieved remission (HCC) Multiple myeloma, without mention of having achieved remission Hypogammaglobulinemia (HCC) Hypogammaglobulinaemia, unspecified Encounter for adjustment and management of vascular access device documented in this encounter Administered Medications Inactive Administered Medications - up to 3 most recent administrations Medication Order MAR Action Action Date Dose Rate Site Alteplase (Cathflo Activase) inj 2 mg 2 mg, IV Push, ONCE, On Tue12/28/23 at 1300, For 1 dose, *Obtain Alteplase (CathFlo Activase) *Reconstitute Alteplase (CathFlo Activase) 2 mg in 2.2 mL sterile water *Instill Alteplase (CathFlo Activase) into occluded lumen(s) *After 30 minutes dwell time in catheter, assess catheter patency by attempting to aspirate blood. If catheter is patent withdraw 3 mL of blood to remove Alteplase (CathFlo Activase) and residual clot. Flush lumen with 10 mL 0.9% normal saline *If catheter function is not restored allow for further dwell up to 120 minutes. *If catheter function is not restored, a second dose of Alteplase (CathFlo Activase) may be administered. *if catheter is still not restored call a physician, Post-op Given By 12/28/2023 12:47 PM EST 2 mg Chest Right isolyte-S pH 7.4 infusion Intravenous, at 10 mL/hr, Plasma-LYTE 148, isolyte-S, and isolyte-S pH 7.4 are considered equivalent - including for MAR barcode scanning., CONTINUOUS, Starting on Tue12/28/23 at 1300, Until Tue12/28/23 at 1725 New Bag 12/28/2023 12:16 PM EST 10 mL/hr documented in this encounter Active and Recently Administered Medications Times are shown in EST. Scheduled Medication Order 12/26/2023 12/27/2023 12/28/2023 Alteplase (Cathflo Activase) inj 2 mg (COMPLETED) 2 mg, IV Push, ONCE, On Tue12/28/23 at 1300, For 1 dose, *Obtain Alteplase (CathFlo Activase) *Reconstitute Alteplase (CathFlo Activase) 2 mg in 2.2 mL sterile water *Instill Alteplase (CathFlo Activase) into occluded lumen(s) *After 30 minutes dwell time in catheter, assess catheter patency by attempting to aspirate blood. If catheter is patent withdraw 3 mL of blood to remove Alteplase (CathFlo Activase) and residual clot. Flush lumen with 10 mL 0.9% normal saline *If catheter function is not restored allow for further dwell up to 120 minutes. *If catheter function is not restored, a second dose of Alteplase (CathFlo Activase) may be administered. *if catheter is still not restored call a physician, Post-op 4955 (Given By - Pro vider: Sarah Yap RN - Comment: Given by Dr. Velásquez) Continuous Medication Order 12/26/2023 12/27/2023 12/28/2023 isolyte-S pH 7.4 infusion Intravenous, at 10 mL/hr, Plasma-LYTE 148, isolyte-S, and isolyte-S pH 7.4 are considered equivalent - including for MAR barcode scanning., CONTINUOUS, Starting on Tue12/28/23 at 1300, Until Tue12/28/23 at 1725 1216 (New Bag - Prov ider: Sarah Yap RN) PRN Medication Order 12/26/2023 12/27/2023 12/28/2023 Ioversol (Optiray 320) inj (CANCELED) ONCE PRN INTRA PROCEDURE, Starting on Tue12/28/23 at 1228, Until Tue12/28/23 at 1232, Intra-Op 1228 (Given - Provid er: Dustin Velásquez MD) documented in this encounter Advance Directives Documents on File Type Date Recorded Patient Music Therapy Teacher Expl anation Power of Cutting And Boning Supervisor 12/12/2018 8:46 AM Vipin vvieros Power of Cutting And Boning Supervisor Power of Cutting And Boning Supervisor 12/12/2018 8:45 AM Zuleyma ferguson Power of Cutting And Boning Supervisor Latest Code Status on File Code [...] the patient have Health Care Power of Cutting And Boning Supervisor? Yes, not currently available Full Code 11/21/2018 8:53 AM 11/21/2018 2:27 PM This or bull reflects the patients wishes and were consensually agreed upon. Care Teams Senior Quality Control Inspector Relationship Specialty Start Date End Date Kulwinder Byers MD [address] [place] [address] PCP - General 06/28/03 documented as of this encounter
--- OUTSIDE RECORDS SUMMARY | 2024-01-15 19:54 | External Medical Summary | Summary of Care ---
Author Name Unknown Organization [facility] Address [address] [facility] [place] [address] Phone [phone] Care Team Providers Care Lead Net Software Developer Name Role Phone Kulwinder Byers MD Primary Care Provider [phone] Reason for Visit * Reason Comments IV Therapy IVIG; hold chemo * Episode Based Medications (Routine) - Authorized Specialty Diagnoses / Procedures Referred By Contac t Referred To Contact Diagnoses Hypogammaglobulinemia (HCC) Multiple myeloma not having achieved remission (HCC) Procedures MI INJ IVIG PRIVIGEN 500 MG Jorge Allen MD [address] [place] [address] Anc Hem/Onc [facility] DEPT CLOSED - 09/27/23 [address] [place] [address] Referral ID Status Reason Start Date Expiration Date V isits Requested Visits Authorized [id number] Authorized 10/04/2023 11/13/2099 999 999 Encounter Details Date Type Department Care Team (Latest Contact Info) Description 11/11/2023 9:30 AM EST Hem/Onc Treatment Hematology/Oncolo gy Treatment, [place] [address] [place] [address] Hypogammaglobulinemia (HCC)*; Multiple myeloma not having achieved [...] 30 Tab 0 9 Active nystatin (NYSTOP) 157174 UNIT/GM powder Apply topically to affected area [...] 1:00 PM EST Hem/Onc Treatment Hematology/Oncology Treatment, [place] 200 [facility], [place] [address] Ritu, Chair 2 Hem Onc [facility] 200 [facility] [place] [address] 01/02/2024 12:00 PM EST Office Visit Interventional Radiology, [facility] [address] [place] [address] Dustin Velásquez MD [address] [place] [address] 01/06/2024 11:45 AM EST Hem/Onc Treatment Hematology/Oncology [facility], [place] [address] [facility] [address] Ritu, Chair 5 Hem Onc [address] [place] [address] 03/12/2024 3:00 PM EDT Office Visit Hematology/Oncology [facility] Ritu [address] [place] [address] Mariana Florez CRNP [address] [place] [address] Health Maintenance Due Date Last Done Comments [...] this encounter Medical Devices Implanted Type Area Pulp Cooker Device Identifier Shelf Expiration Date Model / Serial / Lot Comprehensive Srs/Nexel Distal Body Implanted:Qty: 1 on 12/23/2018 by Gautam Jasso MD at OR [facility] Right: Upper Arm 03/03/2028 [id number] / / [id number] Valve Ricky 3 Ultra 26mm - [id number] Implanted:Qty: 1 on 05/27/2022 by Jesús Weber MD at CARDIAC LABS [facility] [employer] [id number] 03/17/2023 [id number] / / Port Implant W/8f Poly Cath - [id number] Implanted:Qty: 1 on 12/29/2022 by Sudhir Lovett DO at OR [facility] Right: Chest CR BARD : PERIPHERAL VASCULAR [id number] 02/12/2024 [id number] / / [id number] documented as of this encounter Visit Diagnoses [...] Documents on File Type Date Recorded Patient Computer Network Engineer Expl anation Power of Protective Services Case Worker 12/12/2018 8:46 AM Vipin viveros Power of Protective Services Case Worker Power of Protective Services Case Worker 12/12/2018 8:45 AM Zuleyma ferguson Power of Protective Services Case Worker Latest Code Status on File Code [...] the patient have Health Care Power of Protective Services Case Worker? Yes, not currently available Full Code 11/21/2018 8:53 AM 11/21/2018 2:27 PM This or bull reflects the patients wishes and were consensually agreed upon. Care Teams Lead Net Software Developer Relationship Specialty Start Date End Date Kulwinder Byers MD [address] [place] [address] PCP - General 06/28/03 documented as of this encounter
--- OUTSIDE RECORDS SUMMARY | 2024-01-15 19:54 | External Medical Summary ---
Author Name Unknown Address Unknown Organization K01:LABORATORY [facility] - [address] [facility] [place] [address] Laboratory Report Ordering Provider Test Date Status WOOD CANTU 12/29/2023 15:30:00 Final Observation Date Value Abnormality Reference (Units ) Status SYNC LEUKOCYTES IN BLOOD BY AUTOMATED COUNT 12/29/2023 15:30:00 3.34 Below low normal 4.00-10.80 (K/uL) Final Segs 12/29/2023 15:30:00 90.7 Above high normal 40.0-75.0 (%) Final Lymphs % 12/29/2023 15:30:00 2.7 Below low normal 18.0-42.0 (%) Final Monos 12/29/2023 15:30:00 5.4 1.0-11.0 (%) Final Eosinophils 12/29/2023 15:30:00 0.0 0.0-6.0 (%) Final Basos 12/29/2023 15:30:00 0.3 0.0-2.0 (%) Final Immature Granulocyte, Percent 12/29/2023 15:30:00 0.9 0.0-2.0 (%) Final Absolute Segs 12/29/2023 15:30:00 3.03 1.80-7.70 (K/uL) Final Lymphs, absolute 12/29/2023 15:30:00 0.09 Below low normal 1.00-4.80 (K/ul) Final Monos, Abs 12/29/2023 15:30:00 0.18 0.00-1.10 (K/uL) Final Eos, Abs 12/29/2023 15:30:00 0.00 0.00-0.70 (K/uL) Final Basos, Abs 12/29/2023 15:30:00 0.01 0.00-0.20 (K/uL) Final Immature Granulocytes, Number 12/29/2023 15:30:00 0.03 0.00-0.20 (K/uL) Final Performing Location LABORATORY [facility] - [facility] [address] [facility] [address]
--- OUTSIDE RECORDS SUMMARY | 2024-01-15 19:54 | External Medical Summary | Summary of Care ---
Author Name Unknown Organization [facility] Address [address] [facility] [place] [address] Phone [phone] Care Team Providers Care Recreational Therapy Aide Name Role Phone Kulwinder Byers MD Primary Care Provider Reason for Visit * Reason Comments IV Therapy IVIG; hold chemo * Episode Based Medications (Routine) - Authorized Specialty Diagnoses / Procedures Referred By Contac t Referred To Contact Diagnoses Hypogammaglobulinemia (HCC) Multiple myeloma not having achieved remission (HCC) Procedures MO INJ IVIG PRIVIGEN 500 MG Jorge Allen MD [address] [place] [address] Anc Hem/Onc [facility] DEPT CLOSED - 09/27/23 [address] [place] [address] Referral ID Status Reason Start Date Expiration Date V isits Requested Visits Authorized [id number] Authorized 10/04/2023 11/13/2099 999 999 Encounter Details Date Type Department Care Team (Latest Contact Info) Description 11/11/2023 9:30 AM EST Hem/Onc Treatment Hematology/Oncolo gy Treatment, [place] [address] [place] [address] Hypogammaglobulinemia (HCC)*; Multiple myeloma not having achieved [...] 30 Tab 0 9 Active nystatin (NYSTOP) 010528 UNIT/GM powder Apply topically to affected area [...] 12:00 PM EST Office Visit Interventional Radiology, [facility] [address] [place] [address] Dustin Velásquez MD [address] [place] [address] 01/06/2024 11:45 AM EST Hem/Onc Treatment Hematology/Oncology Treatment, [place] [address] [place], [place] [address] Ritu, Chair 3 Hem Onc [facility] [address] [place] [address] 03/12/2024 3:00 PM EDT Office Visit Hematology/Oncology [facility] [address] [place] [address] Mariana Florez CRNP 400 [place] [address] Health Maintenance Due Date Last Done Comments [...] this encounter Medical Devices Implanted Type Area Supervisor Tubing Device Identifier Shelf Expiration Date Model / Serial / Lot Screw Elbow Humeral Total - [id number] Implanted:Qty: 1 on 12/23/2018 by Gautam Jasso MD at OR [facility] Right: Upper Arm [employer] 09/13/2027 / / [id number] Deisi Nexel Total Elbow Implanted:Qty: 1 on 12/23/2018 by Gautam Jasso MD at OR [facility] Right: Upper Arm 04/13/2023 / / [id number] Cement Antibiotic Bone - [id number] Implanted:Qty: 1 on 12/23/2018 by Gautam Jasso MD at OR [facility] Right: Upper Arm RENY : ORTHOPAEDICS 05/13/2020 6197-9-010 / / [id number] Cement Antibiotic Bone - [id number] Implanted:Qty: 1 on 12/23/2018 by Gautam Jasso MD at OR [facility] Right: Upper Arm RENY : ORTHOPAEDICS 05/13/2020 6197-9-010 / / [id number] Stem Compr Srs Mod 7t600bj - [id number] Implanted:Qty: 1 on 12/23/2018 by Gautam Jasso MD at OR [facility] Right: Upper Arm BIOMET : TRAUMA 01/28/2027 [id number] / / [id number] Deisi Nexel Total Elbow Ulnar Component Implanted:Qty: 1 on 12/23/2018 by Gautam Jasso MD at OR [facility] Right: Upper Arm 07/14/202500-025 - / / [id number] Comprehensive Srs/Nexel Distal Body Implanted:Qty: 1 on 12/23/2018 by Gautam Jasso MD at OR [facility] Right: Upper Arm 03/03/2028 [id number] / / [id number] Valve Ricky 3 Ultra 26mm - [id number] Implanted:Qty: 1 on 05/27/2022 by Jesús Weber MD at CARDIAC LABS [facility] [employer] [id number] 03/17/2023 [id number] / / Port Implant W/8f Poly Cath - [id number] Implanted:Qty: 1 on 12/29/2022 by Sudhir Lovett DO at OR [facility] Right: Chest CR BARD : PERIPHERAL VASCULAR [id number] 02/12/2024 [id number] / / [id number] documented as of this encounter Visit Diagnoses [...] Documents on File Type Date Recorded Patient Coach Driver Expl anation Power of Welder Journeyman 12/12/2018 8:46 AM Vipin viveros Power of Welder Journeyman Power of Welder Journeyman 12/12/2018 8:45 AM Zuleyma ferguson Power of Welder Journeyman Latest Code Status on File Code Status [...] the patient have Health Care Power of Welder Journeyman? Yes, not currently available Full Code 11/21/2018 8:53 AM 11/21/2018 2:27 PM This or bull reflects the patients wishes and were consensually agreed upon. Care Teams Recreational Therapy Aide Relationship Specialty Start Date End Date Kulwinder Byers MD [address] [address] PCP - General 06/28/03 documented as of this encounter
--- OUTSIDE RECORDS SUMMARY | 2024-01-15 19:54 | External Medical Summary ---
Author Name Unknown Address Unknown Organization K01:LABORATORY [place] [address] [facility] [address] [place] [address] Laboratory Report Ordering Provider Test Date Status WOOD CANTU 12/29/2023 15:30:00 Final Observation Date Value Abnormality Reference (Units ) Status WBC, Total 12/29/2023 15:30:00 3.34 Below low normal 4.00-10.80 (K/uL) Final RBC 12/29/2023 15:30:00 3.74 3.85-5.15 (M/uL) Final Hemoglobin 12/29/2023 15:30:00 11.8 Below low normal 12.0-15.3 (g/dL) Final HCT 12/29/2023 15:30:00 36.3 36.0-45.2 (%) Final MCV 12/29/2023 15:30:00 97.1 81.5-97.5 (fL) Final MCH 12/29/2023 15:30:00 31.6 27.0-34.0 (pg) Final MCHC 12/29/2023 15:30:00 32.5 32.0-36.0 (g/dL) Final RDW 12/29/2023 15:30:00 17.2 11.5-15.5 (%) Final Platelets 12/29/2023 15:30:00 125 Below low normal 140-400 (K/uL) Final MPV 12/29/2023 15:30:00 12.4 6.6-11.1 (fL) Final Nucleated erythrocytes/100 leukocytes [Ratio] in Blood by Automated count 12/29/2023 15:30:00 0 <=0 (/100 WBCs) Final Performing Location [facility] - [facility] [address] [place] [address]
--- OUTSIDE RECORDS SUMMARY | 2024-01-15 19:54 | External Medical Summary | Summary of Care ---
Author Name Unknown Organization [facility] Address [address] [place] [address] Phone [phone] Care Team Providers Care Athletic Equipment Custodian Name Role Phone Kulwinder Byers MD Primary Care Provider [phone] Reason for Visit * Reason Onset Date Comments Advice 12/28/2023 Mariana Florez Encounter Details Date Type Department Care Team (Late st Contact Info) Description 12/28/2023 Telephone Hematology/Oncology [facility] [place] [address] [facility] [address] Services, Scheduling [address] [place] [address] Advice (Mariana Florez) Allergies Active Allergy Reactions Criticality Noted Date Comments Adhesive Tape 05/28/2003 documented as of this encounter (statuses as of 12/28/2023) Medications Medication Sig Dispensed Refills Start Date [...] 30 Tab 0 12/25/2018 Active nystatin (NYSTOP) 758417 UNIT/GM powder Apply topically to affected area [...] as of this encounter (statuses as of 12/28/2023) Active Problems Problem Noted Date Diagnosed Date [...] as of this encounter (statuses as of 12/28/2023) Resolved Problems Problem Noted Date Diagnosed Date 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 * Telephone Encounter - Eloise Denise OSA - 12/28/2023 1:23 PM EST Pt of Mariana Gautam Pt needs to cancel and rsc treatment on 12/30 Please call pt back at [phone] documented in this encounter Plan of Treatment Upcoming Encounters Date Type Department Care Team (Late st Contact Info) Description 12/30/2023 1:00 PM EST Hem/Onc Treatment Hematology/Oncology Treatment, [place] [address] [place] [address] Ritu, Chair 2 Hem Onc [address] [address] [place] [address] 01/02/2024 12:00 PM EST Office Visit Interventional Radiology, [address] [place] [address] Dustin Velásquez MD [address] [place] [address] 01/06/2024 11:45 AM EST Hem/Onc Treatment Hematology/Oncology Treatment, [place] [address] [place] [address] Ritu, Chair 5 Hem Onc [facility] [address] [facility] [address] 03/12/2024 3:00 PM EDT Office Visit Hematology/Oncology [facility] [address] [facility] [address] Mariana Florez CRNP [address] [place] [address] Scheduled Procedures Name Priority Associated Diagnoses Date/Ti me UNLISTED PROCEDURE VASCULAR SURGERY Hypogammaglobulinemia (HCC) Multiple myeloma not having achieved remission (HCC) Encounter for adjustment and management of vascular access device 12/28/2023 11:55 AM EST Health Maintenance Due Date Last Done [...] 06/13/2020, Additional history exists GFR 12/22/2024 12/22/2023, 0211/2023, 12/08/2023, Additional history exists Pneumococcal Vaccine: 65+ Years Completed 02/18/2017, 01/12/2010 GARDASIL-HPV IMMUNIZATION SERIES Aged Out No longer eligible based on patient's age to complete this topic MENINGOCOCCAL (MENACTRA/MENVEO) Aged Out No longer eligible based on patient's age to complete this topic documented as of this encounter Medical Devices Implanted Type Area Pharmacy Retail Support Specialist Device Identifier Shelf Expiration Date Model / Serial / Lot Comprehensive Srs/Nexel Distal Body Implanted:Qty: 1 on 12/23/2018 by Gautam Jasso MD at [place] [facility] Right: Upper Arm 03/03/2028 [id number] / / [id number] Valve Ricky 3 Ultra 26mm - [id number] Implanted:Qty: 1 on 05/27/2022 by Jesús Weber MD at [facility]ARD[facility] [employer] [id number] 03/17/2023 [id number] / / Port Implant W/8f Poly Cath - [id number] Implanted:Qty: 1 on 12/29/2022 by Sudhir Lovett DO at OR [facility] Right: Chest CR BARD : PERIPHERAL VASCULAR [id number] 02/12/2024 [id number] / / [id number] documented as of this encounter Advance Directives Documents on File Type Date Recorded Patient Power Generation Plant Operator Expl anation Power of Systems Test Engineer 12/12/2018 8:46 AM Vipin viveros Power of Systems Test Engineer Power of Systems Test Engineer 12/12/2018 8:45 AM Zuleyma ferguson Power of Systems Test Engineer Latest Code Status on File Code [...] have Health Care Power of Systems Test Engineer? Yes, not currently available Full Code 11/21/2018 8:53 AM 11/21/2018 2:27 PM This or bull reflects the patients wishes and were consensually agreed upon. Care Teams Athletic Equipment Custodian Relationship Specialty Start Date End Date Kulwinder Byers MD [address] [place] [address] PCP - General 06/28/03 documented as of this encounter
--- OUTSIDE RECORDS SUMMARY | 2024-01-15 19:54 | External Medical Summary | Summary of Care ---
Author Name Unknown Organization [facility] Address [address] [facility] [place] [address] Phone [phone] Care Team Providers Care Jammer Hooker Name Role Phone Kulwinder Byers MD Primary Care Provider Reason for Visit * Reason Comments IV Therapy IVIG; hold chemo * Episode Based Medications (Routine) - Authorized Specialty Diagnoses / Procedures Referred By Contac t Referred To Contact Diagnoses Hypogammaglobulinemia (HCC) Multiple myeloma not having achieved remission (HCC) Procedures GA INJ IVIG PRIVIGEN 500 MG Jorge Allen MD [address] [place] [address] Anc Hem/Onc [address] [facility] DEPT CLOSED - 09/27/23 [address] [place] [address] Referral ID Status Reason Start Date Expiration Date V isits Requested Visits Authorized [id number] Authorized 10/04/2023 11/13/2099 999 999 Encounter Details Date Type Department Care Team (Latest Contact Info) Description 11/11/2023 9:30 AM EST Hem/Onc Treatment Hematology/Oncolo gy Treatment, [place] [address] [place] [address] Hypogammaglobulinemia (HCC)*; Multiple myeloma not having achieved [...] 30 Tab 0 9 Active nystatin (NYSTOP) 338930 UNIT/GM powder Apply topically to affected area [...] 1:00 PM EST Hem/Onc Treatment Hematology/Oncology Treatment, [place] 200 [facility], [place] [address] Ritu, Chair 2 Hem Onc [address] 200 [facility] [place] [address] 01/02/2024 12:00 PM EST Office Visit Interventional Radiology, [facility] [address] [facility] [place] [address] Dustin Velásquez MD [address] [place] [address] 01/06/2024 11:45 AM EST Hem/Onc Treatment Hematology/Oncology Treatment, [place] [address] [facility] [address] Ritu, Chair 3 Hem Onc [address] [place] [address] 03/12/2024 3:00 PM EDT Office Visit Hematology/Oncology [facility] Ritu [address] [place] [address] Mariana Florez CRNP [address] [place] [address] Health Maintenance Due Date Last Done Comments [...] this encounter Medical Devices Implanted Type Area Statistical Methods Teacher Device Identifier Shelf Expiration Date Model / Serial / Lot Screw Elbow Humeral Total - [id number] Implanted:Qty: 1 on 12/23/2018 by Gautam Jasso MD [place] [facility] [place]: Upper Arm [employer] 09/13/202700-090 -00 / / [id number] Deisi Nexel Total Elbow Implanted:Qty: 1 on 12/23/2018 by Gautam Jasso MD [place] [facility] [place]: Upper Arm 04/13/2023-095 - / / [id number] Cement Antibiotic Bone - [id number] Implanted:Qty: 1 on 12/23/2018 by Gautam Jasso MD [place] [facility] [place]: Upper Arm RENY : ORTHOPAEDICS 05/13/2020 6197-9-010 / / [id number] Cement Antibiotic Bone - [id number] Implanted:Qty: 1 on 12/23/2018 by Gautam Jasso MD [place] [facility] [place]: Upper Arm RENY : ORTHOPAEDICS 05/13/2020 6197-9-010 / / [id number] Stem Compr Srs Mod [id number] - [id number] Implanted:Qty: 1 on 12/23/2018 by Gautam Jasso MD [place] [facility] [place]: Upper Arm [employer]OMET : TRAUMA 01/28/2027 [id number] / / [id number] Deisi Nexel Total Elbow Ulnar Component Implanted:Qty: 1 on 12/23/2018 by Gautam Jasso MD [place] [facility] [place]: Upper Arm 07/14/20258400-025 -07 / / [id number] Comprehensive Srs/Nexel Distal Body Implanted:Qty: 1 on 12/23/2018 by Gautam Jasso MD [place] [facility] [place]: Upper Arm 03/03/2028 [id number] / / [id number] Valve Ricky 3 Ultra 26mm - [id number] Implanted:Qty: 1 on 05/27/2022 by Jesús Weber MD at [place] [place] [facility] [place] [employer] [id number] 03/17/2023 [id number] / / Port Implant W/8f Poly Cath - [id number] Implanted:Qty: 1 on 12/29/2022 by Sudhir Lovett DO at [facility] Right: Chest CR BARD : PERIPHERAL VASCULAR [id number] 02/12/2024 [id number] / / [id number] documented as of this encounter Visit Diagnoses [...] Documents on File Type Date Recorded Patient Asset Protection Agent Expl anation Power of Artillery Meteorological Man 12/12/2018 8:46 AM Yungt hcare Power of Artillery Meteorological Man Power of Artillery Meteorological Man 12/12/2018 8:45 AM Zuleyma ferguson Power of Artillery Meteorological Man Latest Code Status on File Code Status [...] the patient have Health Care Power of Artillery Meteorological Man? Yes, not currently available Full Code 11/21/2018 8:53 AM 11/21/2018 2:27 PM This or bull reflects the patients wishes and were consensually agreed upon. Care Teams Jammer Hooker Relationship Specialty Start Date End Date Kulwinder Byers MD [address] [address] PCP - General 06/28/03 documented as of this encounter
--- OUTSIDE RECORDS SUMMARY | 2024-01-15 19:54 | External Medical Summary | Summary of Care ---
Author Name Unknown Organization [facility] Address [address] [facility] [place] [address] Phone [phone] Care Team Providers Care Lithographic Printing Machinist Name Role Phone Kulwinder Byers MD Primary Care Provider Reason for Visit * Reason Comments IV Therapy IVIG; hold chemo * Episode Based Medications (Routine) - Authorized Specialty Diagnoses / Procedures Referred By Contac t Referred To Contact Diagnoses Hypogammaglobulinemia (HCC) Multiple myeloma not having achieved remission (HCC) Procedures [place] INJ IVIG PRIVIGEN 500 MG Jorge Allen MD [address] [place] [address] Anc Hem/Onc Ward [facility] DEPT CLOSED - 09/27/23 [address] [place] [address] Referral ID Status Reason Start Date Expiration Date V isits Requested Visits Authorized [id number] Authorized 10/04/2023 11/13/2099 999 999 Encounter Details Date Type Department Care Team (Latest Contact Info) Description 11/11/2023 9:30 AM EST Hem/Onc Treatment Hematology/Oncolo gy Treatment, [place] [address] [place] [address] Hypogammaglobulinemia (HCC)*; Multiple myeloma not having achieved [...] 30 Tab 0 9 Active nystatin (NYSTOP) 993036 UNIT/GM powder Apply topically to affected area [...] 1:00 PM EST Hem/Onc Treatment Hematology/Oncology Treatment, [place] 200 [facility], [place] [address] Ritu, Chair 2 Hem Onc [facility] 200 [facility] [place] [address] 01/02/2024 12:00 PM EST Office Visit Interventional Radiology, [facility] [address] [place] [address] Dustin Velásquez MD 400 [place] [address] 01/06/2024 11:45 AM EST Hem/Onc Treatment Hematology/Oncology Treatment, [place] [facility] [address] Ritu, Chair 5 Hem Onc [address] [place] [address] 03/12/2024 3:00 PM EDT Office Visit Hematology/Oncology [facility] Ritu [address] [place] [address] Mariana Florez CRNP 400 [place] [address] Health Maintenance Due Date Last Done Comments [...] this encounter Medical Devices Implanted Type Area Fan Balancer Device Identifier Shelf Expiration Date Model / Serial / Lot Comprehensive Srs/Nexel Distal Body Implanted:Qty: 1 on 12/23/2018 by Gautam Jasso MD at OR [facility] Right: Upper Arm 03/03/2028 [id number] / / [id number] Valve Ricky 3 Ultra 26mm - [id number] Implanted:Qty: 1 on 05/27/2022 by Jesús Weber MD at CARDIAC LABS [facility] [employer] [id number] 03/17/2023 [id number] / / Port Implant W/8f Poly Cath - [id number] Implanted:Qty: 1 on 12/29/2022 by Sudhir Lovett DO at OR [facility] Right: Chest CR BARD : PERIPHERAL VASCULAR [id number] 02/12/2024 [id number] / / [id number] documented as of this encounter Visit Diagnoses [...] Documents on File Type Date Recorded Patient Management Supervisor Expl anation Power of Modern Greek Studies Professor 12/12/2018 8:46 AM Vipin viveros Power of Modern Greek Studies Professor Power of Modern Greek Studies Professor 12/12/2018 8:45 AM Zuleyma ferguson Power of Modern Greek Studies Professor Latest Code Status on File Code Status [...] the patient have Health Care Power of Modern Greek Studies Professor? Yes, not currently available Full Code 11/21/2018 8:53 AM 11/21/2018 2:27 PM This or bull reflects the patients wishes and were consensually agreed upon. Care Teams Lithographic Printing Machinist Relationship Specialty Start Date End Date Kulwinder Byers MD [address] [place] [address] PCP - General 06/28/03 documented as of this encounter
--- OUTSIDE RECORDS SUMMARY | 2024-01-15 19:54 | External Medical Summary ---
Author Name Unknown Address Unknown Organization K01:[facility] - [address] [facility] [place] [address] Laboratory Report Ordering Provider Test Date Status WOOD CANTU 12/29/2023 15:30:00 Final Observation Date Value Abnormality Reference (Units ) Status BUN 12/29/2023 15:30:00 20 6-20 (mg/dL) Final Creatinine 12/29/2023 15:30:00 0.9 0.5-1.0 (mg/dL) Final Glomerular filtration rate/1.73 sq M.predicted [Volume Rate/Area] in Serum, Plasma or Blood by Creatinine-based formula (CKD-EPI) 12/29/2023 15:30:00 64 >=60 (mL/min) Final eGFR is calculated based on the CKD-EPI 2020 equation SODIUM 12/29/2023 15:30:00 140 135-146 (m mol/L) Final Potassium 12/29/2023 15:30:00 4.9 3.5-5.1 (m mol/L) Final Cl 12/29/2023 15:30:00 104 98-107 (mm ol/L) Final CO2 12/29/2023 15:30:00 22 22-32 (mmo l/L) Final Anion gap 12/29/2023 15:30:00 14 7-15 (mmol /L) Final Glucose 12/29/2023 15:30:00 265 Above high normal 70 -120 (mg/dL) Final Albumin 12/29/2023 15:30:00 3.7 Below low normal 3.8 -5.0 (g/dL) Final AST (Aspartate aminotransferase) 12/29/2023 15:30:00 22 10-35 (U/L) Fin al Alk Phos 12/29/2023 15:30:00 58 35-130 (U/ L) Final Bilirubin, Total 12/29/2023 15:30:00 0.2 <=1 .2 (mg/dL) Final Calcium 12/29/2023 15:30:00 8.8 8.4-10.2 ( mg/dL) Final Protein 12/29/2023 15:30:00 5.9 Below low normal 6.0 -8.3 (g/dL) Final ALT (Alanine aminotransferase) 12/29/2023 15:30:00 18 10-35 (U/L) Abisai mcconnell Performing Location [facility] - [address] [facility] [address]
--- OUTSIDE RECORDS SUMMARY | 2024-01-15 19:54 | External Medical Summary | Summary of Care ---
Author Name Unknown Organization [facility] Address [address] [facility] [place] [address] Phone [phone] Care Team Providers Care Technical Asst Name Role Phone Kulwinder Byers MD Primary Care Provider Reason for Visit * Reason Comments IV Therapy IVIG; hold chemo * Episode Based Medications (Routine) - Authorized Specialty Diagnoses / Procedures Referred By Contac t Referred To Contact Diagnoses Hypogammaglobulinemia (HCC) Multiple myeloma not having achieved remission (HCC) Procedures [place] INJ IVIG PRIVIGEN 500 MG Jorge Allen MD [address] [place] [address] Anc Hem/Onc [facility] DEPT CLOSED - 09/27/23 [address] [place] [address] Referral ID Status Reason Start Date Expiration Date V isits Requested Visits Authorized [id number] Authorized 10/04/2023 11/13/2099 999 999 Encounter Details Date Type Department Care Team (Latest Contact Info) Description 11/11/2023 9:30 AM EST Hem/Onc Treatment Hematology/Oncolo gy Treatment, [place] [address] [place] [address] Hypogammaglobulinemia (HCC)*; Multiple myeloma not having achieved [...] 30 Tab 0 9 Active nystatin (NYSTOP) 809688 UNIT/GM powder Apply topically to affected area [...] 1:00 PM EST Hem/Onc Treatment Hematology/Oncology Treatment, [place] 200 [facility], [place] [address] Ritu, Chair 2 Hem Onc [facility] 200 [facility] [place] [address] 01/02/2024 12:00 PM EST Office Visit Interventional Radiology, [facility] 400 [place] [address] Dustin Velásquez MD 400 [place] [address] 01/06/2024 11:45 AM EST Hem/Onc Treatment Hematology/Oncology Treatment, [place] [facility] [address] Ritu, Chair 5 Hem Onc [address] [place] [address] 03/12/2024 3:00 PM EDT Office Visit Hematology/Oncology [facility] Ritu [address] [place] [address] Mariana Florez CRNP 400 [place] [address] Health Maintenance Due Date Last Done Comments [...] this encounter Medical Devices Implanted Type Area Student Development Advisor Device Identifier Shelf Expiration Date Model / Serial / Lot Comprehensive Srs/Nexel Distal Body Implanted:Qty: 1 on 12/23/2018 by Gautam Jasso MD at OR [facility] Right: Upper Arm 03/03/2028 [id number] / / [id number] Valve Ricky 3 Ultra 26mm - [id number] Implanted:Qty: 1 on 05/27/2022 by Jesús Weber MD at CARDIAC LABS [facility] [employer] [id number] 03/17/2023 [id number] / / Port Implant W/8f Poly Cath - [id number] Implanted:Qty: 1 on 12/29/2022 by Sudhir Lovett DO at OR [facility] Right: Chest CR BARD : PERIPHERAL VASCULAR [id number] 02/12/2024 [id number] / / [id number] documented as of this encounter Visit Diagnoses [...] Documents on File Type Date Recorded Patient Energy Professional Expl anation Power of Mycology Teacher 12/12/2018 8:46 AM Vipin viveros Power of Mycology Teacher Power of Mycology Teacher 12/12/2018 8:45 AM Zuleyma ferguson Power of Mycology Teacher Latest Code Status on File Code Status [...] the patient have Health Care Power of Mycology Teacher? Yes, not currently available Full Code 11/21/2018 8:53 AM 11/21/2018 2:27 PM This or bull reflects the patients wishes and were consensually agreed upon. Care Teams Technical Asst Relationship Specialty Start Date End Date Kulwinder Byers MD [address] [place] [address] PCP - General 06/28/03 documented as of this encounter
--- OUTSIDE RECORDS SUMMARY | 2024-01-15 19:54 | External Medical Summary | Summary of Care ---
Author Name Unknown Organization [facility] Address [address] [place] [address] Phone [phone] Care Team Providers Care Radiation Physicist Name Role Phone Kulwinder Byers MD Primary Care Provider [phone] Reason for Visit * Reason Onset Date Comments Advice 12/28/2023 Mariana Florez Encounter Details Date Type Department Care Team (Late st Contact Info) Description 12/28/2023 Telephone Hematology/Oncology [facility] [place] [facility] [address] Services, Scheduling [address] [place] [address] Advice (Mariana Florez) Allergies Active Allergy Reactions [...] 30 Tab 0 12/25/2018 Active nystatin (NYSTOP) 962710 UNIT/GM powder Apply topically to affected area [...] encounter Miscellaneous Notes * Telephone Encounter - Love Quick RN [...] 12/28/2023 1:23 PM EST Pt of Mariana Florez Pt needs to cancel and rsc treatment on 12/30 Please call pt back at [phone] documented in this encounter Plan of Treatment Upcoming Encounters Date Type Department Care Team (Late st Contact Info) Description 01/02/2024 12:00 PM EST Office Visit Interventional Radiology, [facility] [address] [place] [address] Dustin Velásquez MD 400 [facility] [place] [address] 01/06/2024 11:45 AM EST Hem/Onc Treatment Hematology/Oncology Treatment, [address] [place] [address] Ritu, Chair 5 Hem Onc [address] [place] [address] 03/12/2024 3:00 PM EDT Office Visit Hematology/Oncology [place] 200 [facility], [place] [address] Mariana Florez CRNP [address] [place] [address] Scheduled Procedures Name Priority Associated Diagnoses Date/Ti [...] this encounter Medical Devices Implanted Type Area Rock Singer Device Identifier Shelf Expiration Date Model / Serial / Lot Comprehensive Srs/Nexel Distal Body Implanted:Qty: 1 on 12/23/2018 by Gautam Jasso MD at OR [facility] Right: Upper Arm 03/03/2028 [id number] / / [id number] Valve Ricky 3 Ultra 26mm - [id number] Implanted:Qty: 1 on 05/27/2022 by Jesús Weber MD at CARDIAC LABS [facility] [id number] [id number] 03/17/2023 [id number] / / Port Implant W/8f Poly Cath - [id number] Implanted:Qty: 1 on 12/29/2022 by Sudhir Lovett DO at OR [facility] Right: Chest CR BARD : PERIPHERAL VASCULAR [id number] 02/12/2024 [id number] / / [id number] documented as of this encounter Advance Directives Documents on File Type Date Recorded Patient Scrap Handler Expl anation Power of Graphic Design Assistant 12/12/2018 8:46 AM Vipin hcare Power of Graphic Design Assistant Power of Graphic Design Assistant 12/12/2018 8:45 AM Zuleyma ferguson Power of Graphic Design Assistant Latest Code Status on File Code [...] the patient have Health Care Power of Graphic Design Assistant? Yes, not currently available Full Code 11/21/2018 8:53 AM 11/21/2018 2:27 PM This or bull reflects the patients wishes and were consensually agreed upon. Care Teams Radiation Physicist Relationship Specialty Start Date End Date Kulwinder Byers MD [address] [address] PCP - General 06/28/03 documented as of this encounter
--- OUTSIDE RECORDS SUMMARY | 2024-01-15 19:54 | External Medical Summary | Summary of Care ---
Author Name Unknown Organization [facility] Address [address] [place] [address] Phone [phone] Care Team Providers Care Cable Installer Name Role Phone Kulwinder Byers MD Primary Care Provider [phone] Reason for Visit * Reason Onset Date Comments Advice 12/28/2023 Mariana Florez Encounter Details Date Type Department Care Team (Late st Contact Info) Description 12/28/2023 Telephone Hematology/Oncology [facility] [place] [address] [facility] [address] Services, Scheduling [address] [place] [address] Advice (Mariana Florez) Allergies Active Allergy Reactions [...] 30 Tab 0 12/25/2018 Active nystatin (NYSTOP) 673953 UNIT/GM powder Apply topically to affected area [...] (15 years old or older) No 05/27/20 22 Cognitive Status Response Date of Assessm ent [...] on 12/30 Please call pt back at [phone] documented in this encounter Plan of Treatment Upcoming Encounters Date Type Department Care Team (Late st Contact Info) Description 01/02/2024 12:00 PM EST Office Visit Interventional Radiology, [facility] [address] 400 [place] [address] Dustin Velásquez MD 400 [place] [address] 01/06/2024 11:45 AM EST Hem/Onc Treatment Hematology/Oncology Treatment, [address] [address] Ritu, Chair 5 Hem Onc [address] [place] [address] 03/12/2024 3:00 PM EDT Office Visit Hematology/Oncology [address] [place] [address] Mariana Florez CRNP 400 [place] [address] Scheduled Procedures Name Priority Associated Diagnoses Date/Ti [...] 06/13/2020, Additional history exists GFR 12/22/2024 12/22/2023, 02/0 11/2023, 12/08/2023, Additional history exists Pneumococcal Vaccine: 65+ Years Completed 02/18/2017, 01/12/2010 GARDASIL-HPV IMMUNIZATION SERIES Aged Out No longer eligible based on patient's age to complete this topic MENINGOCOCCAL (MENACTRA/MENVEO) Aged Out No longer eligible based on patient's age to complete this topic documented as of this encounter Medical Devices Implanted Type Area Laboratory Secretary Device Identifier Shelf Expiration Date Model / Serial / Lot Comprehensive Srs/Nexel Distal Body Implanted:Qty: 1 on 12/23/2018 by Gautam Jasso MD at OR [facility] Right: Upper Arm 03/03/2028 [id number] / / [id number] Valve Ricky 3 Ultra 26mm - [id number] Implanted:Qty: 1 on 05/27/2022 by Jesús Weber MD at CARDIAC LABS [facility] [employer] [id number] 03/17/2023 [id number] / / Port Implant W/8f Poly Cath - [id number] Implanted:Qty: 1 on 12/29/2022 by Sudhir Lovett DO at OR [facility] Right: Chest CR BARD : PERIPHERAL VASCULAR [id number] 02/12/2024 [id number] / / [id number] documented as of this encounter Advance Directives Documents on File Type Date Recorded Patient Mercantile Reporter Expl anation Power of Company Pilot 12/12/2018 8:46 AM Vipin viveros Power of Company Pilot Power of Company Pilot 12/12/2018 8:45 AM Zuleyma ferguson Power of Company Pilot Latest Code Status on File Code Status [...] the patient have Health Care Power of Company Pilot? Yes, not currently available Full Code 11/21/2018 8:53 AM 11/21/2018 2:27 PM This or bull reflects the patients wishes and were consensually agreed upon. Care Teams Cable Installer Relationship Specialty Start Date End Date Kulwinder Byers MD [address] [place] [address] PCP - General 06/28/03 documented as of this encounter
--- OUTSIDE RECORDS SUMMARY | 2024-01-15 19:54 | External Medical Summary | Summary of Care ---
Author Name Unknown Organization [facility] Address [address] [facility] [place] [address] Phone [phone] Care Team Providers Care Arts Therapist Name Role Phone Kulwinder Byers MD Primary Care Provider [phone] Reason for Visit * Reason Comments Chemotherapy Cytoxan. * Episode Based Medications (Routine) - Authorized Specialty Diagnoses / Procedures Referred By Contac t Referred To Contact Diagnoses Multiple myeloma not having achieved remission (HCC) Procedures [place] DARATUMUMAB, HYALURONIDASE [place] CYCLOPHOSPHAMIDE 100 MG INJ Jorge Allen MD [address] [place] [address] Anc Hem/Onc [place] [facility] DEPT CLOSED - 09/27/23 [address] [place] [address] Referral ID Status Reason Start Date Expiration Date V isits Requested Visits Authorized [id number] Authorized 07/23/2022 11/13/2099 999 99 Encounter Details Date Type Department Care Team (Latest Contact Info) Description 12/30/2023 1:00 PM EST Hem/Onc Treatment Hematology/Oncolog y Treatment, [place] [address] [place] [address] Ritu, Chair 2 Hem Onc [address] [place] [address] Multiple myeloma not having [...] 30 Tab 0 12/25/2018 Active nystatin (NYSTOP) 524704 UNIT/GM powder Apply topically to affected area [...] Sign Reading Time Taken Comments Blood Pressure 144/67 12/30/2023 12:50 PM EST Pulse 63 12/30/2023 12:50 PM EST Temperature 36.6 C (97.9 F) 12/30/2023 1 2:50 PM EST Respiratory Rate 18 12/30/2023 12:5 0 PM EST Oxygen Saturation 92% 12/30/2023 12: 50 PM EST Inhaled Oxygen Concentration - - Weight 110.9 kg (244 lb 9.6 oz) 024 12:50 PM EST Height - - Body Mass Index 49.31 12/28/2023 10:14 AM EST documented in this [...] Nursing Notes * Brenda Ashton RN - 12/30/2023 3:33 PM EST Goals: Patient will remain free [...] adverse side effects during treatment. Patient tolerated infusion well. Discharged in stable condition. * Brenda Ashton RN - 12/30/2023 1:16 PM EST Chair 11. Patient arrived for cytoxan infusion. Patient states overall feels well. PIV accessed. Chemo agents Cytoxan. Appetite good Nausea/Vomiting no Diarrhea no Constipation no Mucositis no Fatigue no Bleeding no Infection no Rash no Numbness tingling no Pain no Radiation no ABN Labs WNL for treatment. Alt in Tx: no Return in 1 week. Safety and Risk for Injury Patient will remain free from injury. Ensure appropriate safety devices are available. Provide and maintain safe environment. documented in this encounter Plan of Treatment Upcoming Encounters Date Type Department Care Team (Late st Contact Info) Description 01/02/2024 12:00 PM EST Office Visit Interventional Radiology, [facility] 400 [place] [address] Dustin Velásquez MD 400 [place] [address] 01/06/2024 11:45 AM EST Hem/Onc Treatment Hematology/Oncology Treatment, [address] [address] Ritu, Chair 3 Hem Onc [address] [place] [address] 03/12/2024 3:00 PM EDT Office Visit Hematology/Oncology [address] [place] [address] Mariana Florez CRNP [address] [place], [place] [id number] Health Maintenance Due Date Last Done Comments [...] this encounter Medical Devices Implanted Type Area Projection Technician Device Identifier Shelf Expiration Date Model / Serial / Lot Screw Elbow Humeral Total - [id number] Implanted:Qty: 1 on 12/23/2018 by Gautam Jasso MD at OR [facility] Right: Upper Arm [employer] 09/13/20278400-090 -00 / / [id number] Deisi Nexel Total Elbow Implanted:Qty: 1 on 12/23/2018 by Gautam Jasso MD at OR [facility] Right: Upper Arm 04/13/2023-8400-095 -00 / / [id number] Cement Antibiotic Bone - [id number] Implanted:Qty: 1 on 12/23/2018 by Gautam Jasso MD at OR [facility] Right: Upper Arm RENY : ORTHOPAEDICS 05/13/2020 [id number] / / [id number] Cement Antibiotic Bone - [id number] Implanted:Qty: 1 on 12/23/2018 by Gautam Jasso MD at OR [facility] Right: Upper Arm RENY : ORTHOPAEDICS 05/13/2020 [id number] / / [id number] Stem Compr Srs Mod [id number] - [id number] Implanted:Qty: 1 on 12/23/2018 by Gautam Jasso MD at OR [facility] Right: Upper Arm [employer] : [employer]UMA 01/28/2027 [id number] / / [id number] Nexel Total Elbow Ulnar Component Implanted:Qty: 1 on 12/23/2018 by Gautam Jasso MD at OR [facility] Right: Upper Arm 07/14/2025 00-8400-025 -07 / / [id number] Comprehensive Srs/Nexel Distal Body Implanted:Qty: 1 on 12/23/2018 by Gautam Jasso MD at OR [facility] Right: Upper Arm 03/03/2028 [id number] / / [id number] Valve Ricky 3 Ultra 26mm - [id number] Implanted:Qty: 1 on 05/27/2022 by Jesús Weber MD at CARDIAC LABS [facility] [employer] [id number] 03/17/2023 [id number] / / Port Implant W/8f Poly Cath - [id number] Implanted:Qty: 1 on 12/29/2022 by Sudhir Lovett DO at OR [facility] Right: Chest CR BARD : PERIPHERAL VASCULAR [id number] 02/12/2024 [id number] / / [id number] documented as of this encounter Visit Diagnoses [...] ONCE PRN Other, Hypersensitivity Reaction, Starting on Tue12/30/23 at 1310, Until 12/31/23 at 1309, For 24 hours EPINEPHrine 1 MG/ML inj 0.3 mg 0.3 mg, Intramuscular, ONCE PRN Other, Hypersensitivity Reaction or Anaphylaxis, Starting on Tue12/30/23 at 1310, Until 12/31/23 at 1309, For 24 hours hEParin 100 UNIT/ML Lock Flush inj 500 Units 500 Units (5 mL), IV Lock, PRN Other, IV Flush, Starting on Tue12/30/23 at 1310, Until 12/31/23 at 1309, For 24 hours, Do not flush if lock, PICC, or central line not in place; IV infusing or unable to flush. Hydrocortisone Sod Suc (PF) (Solu-Cortef) inj 100 mg 100 mg, IV Push, ONCE PRN Other, Hypersensitivity Reaction, Starting on Tue12/30/23 at 1310, Until 12/31/23 at 1309, For 24 hours sodium chloride 0.9 % flush central line 10 mL 10 mL, IV Push, PRN Other, IV Flush, Starting on Tue12/30/23 at 1310, Until 12/31/23 at 1309, For 24 hours, Do not flush if lock, PICC, or central line not in place; IV infusing or unable to flush. Inactive Administered Medications - up to 3 [...] if not tolerated., ONCE, 1 dose, On Tue12/30/23 at 1345 Start Infusion 12/30/2023 1:46 PM EST 620 mg 500 mL/hr NSS infusion FOR HYDRATION Intravenous, at 50 mL/hr Administer over 10 Hours, ONCE, 1 dose, On Tue12/30/23 at 1345 Start Infusion 12/30/2023 1:15 PM EST 500 mL 50 mL/hr ondansetron (Zofran) tab 8 mg 8 mg, Oral, ONCE, On Tue12/30/23 at 1330, For 1 dose Given 12/30/2023 1:27 PM EST 8 mg documented in this encounter Advance Directives Documents on File Type Date Recorded Patient Television Station Manager Expl anation Power of Highway Safety Engineer 12/12/2018 8:46 AM Vipin viveros Power of Highway Safety Engineer Power of Highway Safety Engineer 12/12/2018 8:45 AM Zuleyma ferguson Power of Highway Safety Engineer Latest Code Status on File Code [...] the patient have Health Care Power of Highway Safety Engineer? Yes, not currently available Full Code 11/21/2018 8:53 AM 11/21/2018 2:27 PM This or bull reflects the patients wishes and were consensually agreed upon. Care Teams Arts Therapist Relationship Specialty Start Date End Date Kulwinder Byers MD [address] [place] [address] PCP - General 06/28/03 documented as of this encounter
--- OUTSIDE RECORDS SUMMARY | 2024-01-15 19:54 | External Medical Summary | Summary of Care ---
Author Name Unknown Organization [facility] [address] [facility] [address] Phone [phone] Care Team Providers Care Welder/Installer Name Role Phone uKlwinder Byers MD Primary Care Provider [phone] Reason for Visit * Reason Comments IV Therapy IVIG; hold chemo * Episode Based Medications (Routine) - Authorized Specialty Diagnoses / Procedures Referred By Contac t Referred To Contact Diagnoses Hypogammaglobulinemia (HCC) Multiple myeloma not having achieved remission (HCC) Procedures [place] INJ IVIG PRIVIGEN 500 MG Jorge Allen MD [address] [place] [address] Anc Hem/Onc [facility] DEPT CLOSED - 09/27/23 [address] [place] [address] Referral ID Status Reason Start Date Expiration Date V isits Requested Visits Authorized [id number] Authorized 10/04/2023 11/13/2099 999 999 Encounter Details Date Type Department Care Team (Latest Contact Info) Description 11/11/2023 9:30 AM EST Hem/Onc Treatment Hematology/Oncolo gy Treatment, [place] [address] [place] [address] Hypogammaglobulinemia (HCC)*; Multiple myeloma not having achieved [...] 30 Tab 0 9 Active nystatin (NYSTOP) 345925 UNIT/GM powder Apply topically to affected area [...] 1:00 PM EST Hem/Onc Treatment Hematology/Oncology Treatment, [place] 200 [facility], [place] [address] Ritu, Chair 2 Hem Onc [facility] [address] [facility] [place] [address] 01/02/2024 12:00 PM EST Office Visit Interventional Radiology, [facility] [address] [facility] [address] Dustin Velásquez MD [address] [place] [address] 01/06/2024 11:45 AM EST Hem/Onc Treatment Hematology/Oncology [facility], [place] [address] [facility] [address] Ritu, Chair 5 Hem Onc [address] [place] [address] 03/12/2024 3:00 PM EDT Office Visit Hematology/Oncology [facility] Ritu [address] [place] [address] Mariana Florez CRNP [address] [place] [address] Health Maintenance Due Date Last Done Comments [...] this encounter Medical Devices Implanted Type Area Well Service Floor Worker Device Identifier Shelf Expiration Date Model / Serial / Lot Comprehensive Srs/Nexel Distal Body Implanted:Qty: 1 on 12/23/2018 by Gautam Jasso MD at [place] [facility] Right: Upper Arm 03/03/2028 [id number] / / [id number] Valve Ricky 3 Ultra 26mm - [id number] Implanted:Qty: 1 on 05/27/2022 by Jesús Weber MD at [facility]ARDI[facility] [employer] [id number] 03/17/2023 [id number] / / Port Implant W/8f Poly Cath - [id number] Implanted:Qty: 1 on 12/29/2022 by Sudhir Lovett DO at [facility] Right: Chest CR BARD : PERIPHERAL VASCULAR [id number] 02/12/2024 [id number] / / [id number] documented as of this encounter Visit Diagnoses [...] Documents on File Type Date Recorded Patient Table Cover Folder Expl anation Power of Script Developer 12/12/2018 8:46 AM Vipin viveros Power of Script Developer Power of Script Developer 12/12/2018 8:45 AM Zuleyma ferguson Power of Script Developer Latest Code Status on File Code Status [...] the patient have Health Care Power of Script Developer? Yes, not currently available Full Code 11/21/2018 8:53 AM 11/21/2018 2:27 PM This or bull reflects the patients wishes and were consensually agreed upon. Care Teams Welder/Installer Relationship Specialty Start Date End Date Kulwinder Byers MD [address] [place] [address] PCP - General 06/28/03 documented as of this encounter
--- OUTSIDE RECORDS SUMMARY | 2024-01-15 19:55 | External Medical Summary | Summary of Care ---
Author Name Unknown Organization [facility] Address [address] [facility] [place] [address] Phone [phone] Care Team Providers Care Teacher'S Assistant Name Role Phone Kulwinder Byers MD Primary Care Provider [phone] Reason for Referral * Precert (Within 10 days (routine)) - Authorized Specialty Diagnoses / Procedures Referred By Contac t Referred To Contact Radiology Diagnoses Multiple myeloma not having achieved remission (HCC) Hypogammaglobulinemia (HCC) Encounter for adjustment and management of vascular access device Procedures IR VENOUS ACCESS [facility] Jorge Allen MD [address] [place] [id number] Referral ID Status Reason Start Date Expiration Date V isits Requested Visits Authorized [id number] Authorized 12/15/2023 999 999 Reason for Visit * Reason Onset Date Comments Referral 12/09/2023 IR Encounter Details Date Type Department Care Team (Late st Contact Info) Description 12/09/2023 Telephone Hematology/Oncology Treatment, [place] [address] [facility] [address] Jorge Allen MD 200 [place] [address] Referral (IR) Allergies Active Allergy Reactions Criticality Noted Date Comments Adhesive Tape 05/28/2003 documented as of this encounter (statuses as of 12/16/2023) Medications Medication Sig Dispensed Refills Start Date [...] 30 Tab 0 12/25/2018 Active nystatin (NYSTOP) 770820 UNIT/GM powder Apply topically to affected area 2 times a day. Apply to abd. Skin folds 15 g 0 12/25/2018 Active atorvaSTATin (LIPITOR) 10 MG Tablet daily. 0 01/24/2019 Active Steel Rolling WalkerIndications:Mu ltiple myeloma not having achieved remission (HCC),Gait disturbance Use as directed . Rollator walker 1 Each 0 05/13/2022 Active Ondansetron HCl 8 MG Oral Tablet (Zofran)Indications: Multiple myeloma not having achieved remission (HCC) Take by mouth 1 Tablet every 8 hours as needed for Nausea. 30 Tablet 1 08/06/2022 Active Prochlorperazine Maleate 10 MG Oral Tablet (Compazine)Indicatio ns:Multiple myeloma not having achieved remission (HCC) Take by mouth 1 Tablet every 6 hours as needed for Nausea. 30 Tablet 1 08/06/2022 Active Pantoprazole Sodium 40 MG Oral Tablet Delayed Release (Protonix) Take 1 Tablet by mouth daily first thing in the morning. (Confirmed with PCP 10/12/22) 0 08/25/2022 Active Calcium 600-200 MG-UNIT Oral Tablet Take by mouth . 0 Active Acyclovir 400 MG Oral Tablet (Zovirax)Indications :Multiple myeloma not having achieved remission (HCC) Take 1 Tablet (400 mg) by mouth in the morning and 1 Tablet (400 mg) before bedtime. 180 Tablet 3 09/29/2022 Active Xgeva 120 MG/1.7ML Subcutaneous Solution (Denosumab) 120 mg. 0 08/21/2020 Acti ve Loperamide HCl 2 MG Oral Capsule (Imodium) Take 1 Capsule by mouth 4 times a day as needed for Diarrhea. 0 Active Lidocaine-Prilocaine 2.5-2.5 % External Cream (Emla)Indications:Mu ltiple myeloma not having achieved remission (HCC) APPLY TO SKIN OVER MEDIPORT & COVER 1HR PRIOR TO ACCESSING. 30 g 1 01/03/2023 Active Aspirin Low Dose 81 MG Oral Tablet Chewable (aspirin)Indications :S/P TAVR (transcatheter aortic valve replacement),Hypokal emia TAKE 1 TABLET BY MOUTH EVERY DAY IN THE MORNING 90 Tablet 3 05/24/2023 Active Furosemide 20 MG Oral Tablet (Lasix)Indications:S /P TAVR (transcatheter aortic valve replacement),Hypokal emia TAKE 1 TABLET BY MOUTH EVERY DAY IN THE MORNING 90 Tablet 3 08/01/2023 Active Venlafaxine HCl 75 MG Oral Tablet (Effexor) Take 1 Tablet by mouth in the morning. In the am.. 90 Tablet 3 08/10/2023 Active Phospha 250 Neutral 155-852-130 MG Oral TabletIndications:Mu ltiple myeloma not having achieved remission (HCC),Hypophosphatem ia Take 1 Tablet by mouth in the morning and 1 Tablet before bedtime. 180 Tablet 1 10/19/2023 Active Potassium Chloride ER 10 MEQ Oral Tablet Extended ReleaseIndications:M ultiple myeloma not having achieved remission (HCC),Hypokalemia TAKE BY MOUTH 1 TABLET IN THE MORNING AND 1 TABLET IN THE EVENING BEFORE BEDTIME. 180 Tablet 0 10/21/2023 Active dexAMETHasone 4 MG Oral Tablet (Decadron)Indication s:Multiple myeloma not having achieved remission (HCC) Take 20mg once a week 60 Tablet 1 10/21/2023 Active oxyCODONE HCl 5 MG Oral Tablet (Oxy IR)Indications:Multi ple myeloma not having achieved remission (HCC) Take 1 Tablet by mouth every 6 hours as needed for Pain, Breakthrough. 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 Marclea Crenshaw. 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 * Telephone Encounter - Merrick Gross RN - 12/15/2023 4:05 PM EST Pt had CXR completed, please place appropriate IR referral for port study. * Telephone Encounter - Merrick Gross RN - 12/09/2023 2:[address] Allen, if no blood flow from port after atp, will need CXR and referral to IR. This RN attempted blood return from port after 30 minutes s/p atp placement into port. No blood return seen. CXR ordered. Pt updated on plan and agreeable. documented in this encounter Plan of Treatment Upcoming Encounters Date Type Department Care Team (Late st Contact Info) Description 12/16/2023 9:45 AM EST Hem/Onc Treatment Hematology/Oncology Treatment, [place] [address] [place] [address] Ritu, Chair 1 Hem Onc [place] 200 [facility] [place] [address] 12/30/2023 10:00 AM EST Hem/Onc Treatment Hematology/Oncology Treatment, [place] 200 [place] [address] Ritu, Chair 5 Hem Onc [address] [address] [place], [place] [address] 01/02/2024 10:00 AM EST Hem/Onc Treatment Hematology/Oncology Treatment, [place] 200 [place] [address] Ritu, Chair 5 Hem Onc [address] 200 [facility] [place], [place] [address] 01/06/2024 9:00 AM EST Hem/Onc Treatment Hematology/Oncology Treatment, [place] 200 [facility], [place] [address] Ritu, Chair 3 Hem Onc [address] 200 [facility] [place], [place] [address] 03/12/2024 11:00 AM EDT Office Visit Hematology/Oncology [facility] [place] 200 [facility] [place], [place] [address] Mariana Florez CRNP [address] [place], [place] [address] [address] Scheduled Orders Name Type Priority Associated Diagnoses Orde r Schedule IR VENOUS ACCESS MEDIPORT Medical Imaging Routine Multiple myeloma not having achieved remission (HCC) Hypogammaglobulinemia (HCC) Encounter for adjustment and management of vascular access device Expected: 12/15/2023, Expires: 01/12/2025 Health Maintenance Due Date Last Done Comments [...] 10/19/2023, 11/15, 06/13/2020, Additional history exists GFR 12/15/2024 12/15/2023, 11/15, 12/01/2023, Additional history exists Pneumococcal Vaccine: 65+ Years Completed 02/18/2017, 01/12/2010 GARDASIL-HPV IMMUNIZATION SERIES Aged Out No longer eligible based on patient's age to complete this topic MENINGOCOCCAL (MENACTRA/MENVEO) Aged Out No longer eligible based on patient's age to complete this topic documented as of this encounter Medical Devices Implanted Type Area Freelance Graphic Designer Device Identifier Shelf Expiration Date Model / Serial / Lot Comprehensive Srs/Nexel Distal Body Implanted:Qty: 1 on 12/23/2018 by Gautam Jasso MD at [place] [facility] [place] Right: Upper Arm 03/03/2028 [id number] / / [id number] Valve Ricky 3 Ultra 26mm - [id number] Implanted:Qty: 1 on 05/27/2022 by Jesús Weber MD at [facility]ARD[facility] LAB[facility] [employer] [id number] 03/17/2023 [id number] / / Port Implant W/8f Poly Cath - [id number] Implanted:Qty: 1 on 12/29/2022 by Sudhir Lovett DO at OR [facility] Right: Chest CR BARD : PERIPHERAL VASCULAR [id number] 02/12/2024 [id number] / / [id number] documented as of this encounter Procedures Procedure Name Priority Date/Time Associated Diagnosis Comments XR CHEST 1 VIEW Routine 12/09/2023 3:52 PM EST Encounter for care related to vascular access port documented in this encounter Results * XR CHEST 1 VIEW (12/09/2023 3:52 PM EST) Anatomical Region Laterality Modality Chest Computed Radiogr aphy 12/10/2023 5:50 AM EST Impressions 12/10/2023 5:47 AM EST IMPRESSION Pulmonary vascular congestion. Narrative 12/10/2023 5:47 AM EST EXAM XR CHEST 1 VIEW- 12/09/2023 3:52 pm HISTORY "verify port placement" TECHNIQUE Single AP portable view of the chest was obtained. COMPARISON 09/29/2023 FINDINGS Mild cardiomegaly. Pulmonary vascular congestion. No pleural effusion or pneumothorax. Left-sided dual lead cardiac pacer is stable. Right central venous port extends into the cavoatrial junction. Cholecystectomy clips. Multiple old rib fracture deformities. Some of these deformities appears somewhat expansile, with underlying pathologic fracture not excluded. Procedure Note Scott Allen MD - 12/10/2023 EXAM XR CHEST 1 VIEW- 12/09/2023 3:52 pm HISTORY "verify port placement" TECHNIQUE Single AP portable view of the chest was obtained. COMPARISON 09/29/2023 FINDINGS Mild cardiomegaly. Pulmonary vascular congestion. No pleural effusion orpneumothorax. Left-sided dual lead cardiac pacer is stable. Rightcentral venous port extends into the cavoatrial junction. Cholecystectomy clips. Multiple old rib fracture deformities. Some of these deformities appearssomewhat expansile, with underlying pathologic fracture not excluded. IMPRESSION IMPRESSION Pulmonary vascular congestion. Jorge Allen MD RADIOLOGY (RAD GENER AL) documented in this encounter Visit Diagnoses Diagnosis Encounter for adjustment and management of vascular access device- Primary Encounter for care related to vascular access port Fitting and adjustment of vascular catheter Multiple myeloma not having achieved remission (HCC) Multiple myeloma, without mention of having achieved remission Hypogammaglobulinemia (HCC) Hypogammaglobulinaemia, unspecified documented in this encounter Advance Directives Documents on File Type Date Recorded Patient Custom Feed Mill Operator Expl anation Power of Mold Yard Supervisor 12/12/2018 8:46 AM Vipin viveros Power of Mold Yard Supervisor Power of Mold Yard Supervisor 12/12/2018 8:45 AM Zuleyma ferguson Power of Mold Yard Supervisor Latest Code Status on File Code [...] the patient have Health Care Power of Mold Yard Supervisor? Yes, not currently available Full Code 11/21/2018 8:53 AM 11/21/2018 2:27 PM This or bull reflects the patients wishes and were consensually agreed upon. Care Teams Teacher'S Assistant Relationship Specialty Start Date End Date Kulwinder Byers MD [address] [address] PCP - General 06/28/03 documented as of this encounter
--- OUTSIDE RECORDS SUMMARY | 2024-01-15 19:55 | External Medical Summary ---
Author Name Unknown Address Unknown Organization K01:[facility] [place] [address] [facility] [place] [address] Laboratory Report Ordering Provider Test Date Status WOOD CANTU 12/22/2023 15:30:00 Final Observation Date Value Abnormality Reference (Units ) Status BUN 12/22/2023 15:30:00 20 6-20 (mg/dL) Final Creatinine 12/22/2023 15:30:00 0.8 0.5-1.0 (mg/dL) Final Glomerular filtration rate/1.73 sq M.predicted [Volume Rate/Area] in Serum, Plasma or Blood by Creatinine-based formula (CKD-EPI) 12/22/2023 15:30:00 69 >=60 (mL/min) Final eGFR is calculated based on the CKD-EPI 2020 equation SODIUM 12/22/2023 15:30:00 139 135-146 (m mol/L) Final Potassium 12/22/2023 15:30:00 4.3 3.5-5.1 (m mol/L) Final Cl 12/22/2023 15:30:00 105 98-107 (mm ol/L) Final CO2 12/22/2023 15:30:00 25 22-32 (mmo l/L) Final Anion gap 12/22/2023 15:30:00 9 7-15 (mmol /L) Final Glucose 12/22/2023 15:30:00 141 Above high normal 70 -120 (mg/dL) Final Albumin 12/22/2023 15:30:00 3.8 3.8-5.0 (g /dL) Final AST (Aspartate aminotransferase) 12/22/2023 15:30:00 14 10-35 (U/L) Fin al Alk Phos 12/22/2023 15:30:00 52 35-130 (U/ L) Final Bilirubin, Total 12/22/2023 15:30:00 0.3 <=1 .2 (mg/dL) Final Calcium 12/22/2023 15:30:00 9.1 8.4-10.2 ( mg/dL) Final Protein 12/22/2023 15:30:00 5.9 Below low normal 6.0 -8.3 (g/dL) Final ALT (Alanine aminotransferase) 12/22/2023 15:30:00 12 10-35 (U/L) Abisai mcconnell Performing Location [facility] [place] - [address] [facility] [address]
--- OUTSIDE RECORDS SUMMARY | 2024-01-15 19:55 | External Medical Summary | Summary of Care ---
Author Name Unknown Organization [facility] Address [address] [facility] [place] [address] Phone [phone] Care Team Providers Care Sprue Cutting Press Operator Name Role Phone Kulwinder Byers MD Primary Care Provider [phone] Encounter Details Date Type Department Care Team (Late st Contact Info) Description 12/23/2023 Refill Hematology/Oncology Treatment, [place] [address] [place] [address] Alondra Allen MD [address] [place] [address] Cancer related pain*; Multiple myeloma not having achieved remission (HCC) Allergies Active Allergy Reactions Criticality Noted Date Comments Adhesive Tape 05/28/2003 documented as of this encounter (statuses as of 12/23/2023) Medications Medication Sig Dispensed Refills Start Date [...] 30 Tab 0 12/25/2018 Active nystatin (NYSTOP) 579029 UNIT/GM powder Apply topically to affected area 2 times a day. Apply to abd. Skin folds 15 g 0 12/25/2018 Active atorvaSTATin (LIPITOR) 10 MG Tablet daily. 0 01/24/2019 Active Steel Rolling WalkerIndications: Multiple myeloma not having achieved remission (HCC),Gait disturbance Use as directed . Rollator walker 1 Each 0 05/13/2022 Active Ondansetron HCl 8 MG Oral Tablet (Zofran)Indication s:Multiple myeloma not having achieved remission (HCC) Take by mouth 1 Tablet every 8 hours as needed for Nausea. 30 Tablet 1 08/06/2022 Active Prochlorperazine Maleate 10 MG Oral Tablet (Compazine)Indicat ions:Multiple myeloma not having achieved remission (HCC) [...] 0 Active Acyclovir 400 MG Oral Tablet (Zovirax)Indicatio ns:Multiple myeloma not having achieved remission (HCC) Take 1 Tablet (400 mg) by mouth in the morning and 1 Tablet (400 mg) before bedtime. 180 Tablet 3 09/29/2022 Active Xgeva 120 MG/1.7ML Subcutaneous Solution (Denosumab) 120 mg. 0 08/21/2020 Active Loperamide HCl 2 MG Oral Capsule (Imodium) Take 1 Capsule by mouth 4 times a day as needed for Diarrhea. 0 Active Lidocaine-Prilocai ne 2.5-2.5 % External Cream (Emla)Indications: Multiple myeloma not having achieved remission (HCC) APPLY TO SKIN OVER MEDIPORT & COVER 1HR PRIOR TO ACCESSING. 30 g 1 01/03/2023 Active Aspirin Low Dose 81 MG Oral Tablet Chewable (aspirin)Indicatio ns:S/P TAVR (transcatheter aortic valve replacement),Hypok alemia TAKE 1 TABLET BY MOUTH EVERY DAY IN THE MORNING 90 Tablet 3 05/24/2023 Active Furosemide 20 MG Oral Tablet (Lasix)Indications :S/P TAVR (transcatheter aortic valve replacement),Hypok alemia TAKE 1 TABLET BY MOUTH EVERY DAY IN THE MORNING 90 Tablet 3 08/01/2023 Active Venlafaxine HCl 75 MG Oral Tablet (Effexor) Take 1 Tablet by mouth in the morning. In the am.. 90 Tablet 3 08/10/2023 Active Phospha 250 Neutral 155-852-130 MG Oral TabletIndications: Multiple myeloma not having achieved remission (HCC),Hypophosphat emia Take 1 Tablet by mouth in the morning and 1 Tablet before bedtime. 180 Tablet 1 10/19/2023 Active Potassium Chloride ER 10 MEQ Oral Tablet Extended ReleaseIndications :Multiple myeloma not having achieved remission (HCC),Hypokalemia TAKE BY MOUTH 1 TABLET IN THE MORNING AND 1 TABLET IN THE EVENING BEFORE BEDTIME. 180 Tablet 0 10/21/2023 Active dexAMETHasone 4 MG Oral Tablet (Decadron)Indicati ons:Multiple myeloma not having achieved remission (HCC) Take 20mg once a week 60 Tablet 1 10/21/2023 Active oxyCODONE HCl 5 MG Oral Tablet (Oxy IR)Indications:Mul tiple myeloma not having achieved remission (HCC),Cancer related pain Take 1 Tablet by mouth every 6 hours as needed for Pain, Breakthrough. 60 Tablet 0 12/23/2023 Active oxyCODONE HCl 5 MG Oral Tablet (Oxy IR)Indications:Mul tiple myeloma not having achieved remission (HCC) Take 1 Tablet by mouth every 6 hours as needed for Pain, Breakthrough. 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 Aortic valve stenosis 2021 documented as of this encounter (statuses as of 12/23/2023) Social History Tobacco Use Types Packs/Day Years [...] encounter Miscellaneous Notes * Telephone Encounter - [place]Love faye RN - 12/23/2023 2:18 PM ESTSigned Prescriptions: Disp Refills oxyCODONE HCl 5 MG Oral Tablet (Oxy IR) 60 Tab*0 Sig: Take 1 Tablet by mouth every 6 hours as needed for Pain, Breakthrough.Authorizing Provider: ALONDRA ALLEN--- * Telephone Encounter - Alondra Allen MD - 12/23/2023 2:11 PM EST E-prescribed Alondra Allen MD Hem/Onc * Telephone Encounter - Sandi Avila RN - 12/23/2023 1:54 PM EST Patient came to facility today for her scheduled treatment and said she is almost out of her Oxycodone and it needs refilled. documented in this encounter Plan of Treatment Upcoming Encounters Date Type Department Care Team (Latest Contact Info) Description 12/28/2023 11:17 AM EST Hospital Encounter OR [facility], Operating Room, [facility] - 4th Floor [address] [place] [address] Dustin Velásquez MD [address] [place] [address] 12/28/2023 11:17 AM EST - 12/28/2023 12:27 PM EST Surgery OR [facility], Operating Room, [facility] - 4th Floor [address] [place] [address] Dustin Velásquez MD [facility] [place] [address] UNLISTED PROCEDURE VASCULAR SURGERY 12/30/2023 10:00 AM EST Hem/Onc Treatment Hematology/Oncology Treatment, [place] [address] [place] [address] Ritu, Chair 5 Hem Onc Scen[place] [address] [facility] [place] [address] 01/02/2024 10:00 AM EST Hem/Onc Treatment Hematology/Oncology Treatment, [address], [place] [address] Ritu, Chair 5 Hem Onc [facility] [address] [facility] [place] [address] 01/06/2024 9:00 AM EST Hem/Onc Treatment Hematology/Oncology Treatment, [address], [place] [address] Ritu, Chair 3 Hem Onc [facility] [address] [facility] [place] [address] 03/12/2024 11:00 AM EDT Office Visit Hematology/Oncology [facility] [address] [facility] [place] [address] Mariana Florez CRNP [address] [facility] [place] [address] Scheduled Procedures Name Priority Associated Diagnoses Date/Ti me UNLISTED PROCEDURE VASCULAR SURGERY Hypogammaglobulinemia (HCC) Multiple myeloma not having achieved remission (HCC) Encounter for adjustment and management of vascular access device 12/28/2023 11:17 AM EST Health Maintenance Due Date Last [...] this encounter Medical Devices Implanted Type Area Reverse Unit Operator Device Identifier Shelf Expiration Date Model / Serial / Lot Comprehensive Srs/Nexel Distal Body Implanted:Qty: 1 on 12/23/2018 by Gautam Jasso MD at OR [facility] Right: Upper Arm 03/03/2028 [id number] / / [id number] Valve Ricky 3 Ultra 26mm - [id number] Implanted:Qty: 1 on 05/27/2022 by Jesús Weber MD at CARDIAC LABS [facility] [employer] [id number] 03/17/2023 [id number] / / Port Implant W/8f Poly Cath - [id number] Implanted:Qty: 1 on 12/29/2022 by Sudhir Lovett DO at OR [facility] Right: Chest CR BARD : PERIPHERAL VASCULAR [id number] 02/12/2024 [id number] / / [id number] documented as of this encounter Visit Diagnoses Diagnosis Cancer related pain- Primary Neoplasm related pain (acute) (chronic) Multiple myeloma not having achieved remission (HCC) Multiple myeloma, without mention of having achieved remission Hypogammaglobulinemia (HCC) Hypogammaglobulinaemia, unspecified Multiple myeloma not having achieved remission (HCC) Multiple myeloma, without mention of having achieved remission Encounter for adjustment and management of vascular access device documented in this encounter Advance Directives Documents on File Type Date Recorded Patient Unit Nurse Expl anation Power of Corporate Trainer 12/12/2018 8:46 AM Vipin viveros Power of Corporate Trainer Power of Corporate Trainer 12/12/2018 8:45 AM Finan cial Power of Corporate Trainer Latest Code Status on File Code Status [...] patient have Health Care Power of Corporate Trainer? Yes, not currently available Full Code 11/21/2018 8:53 AM 11/21/2018 2:27 PM This or bull reflects the patients wishes and were consensually agreed upon. Care Teams Sprue Cutting Press Operator Relationship Specialty Start Date End Date Kulwinder Byers MD [address] [address] PCP - General 06/28/03 documented as of this encounter
--- OUTSIDE RECORDS SUMMARY | 2024-01-15 19:55 | External Medical Summary | Summary of Care ---
Author Name Unknown Organization [facility] Address [address] [facility] [place] [address] Phone [phone] Care Team Providers Care Education Adviser Name Role Phone Kulwinder Byers MD Primary Care Provider Reason for Visit * Reason Comments Chemotherapy Cytoxan/Darzalex Fas pro * Episode Based Medications (Routine) - Authorized Specialty Diagnoses / Procedures Referred By Contac t Referred To Contact Diagnoses Multiple myeloma not having achieved remission (HCC) Procedures HI DARATUMUMAB, HYALURONIDASE HI CYCLOPHOSPHAMIDE 100 MG INJ Jorge Allen MD [address] [place] [address] Anc Hem/Onc [facility] DEPT CLOSED - 09/27/23 [address] [place] [address] Referral ID Status Reason Start Date Expiration Date V isits Requested Visits Authorized [id number] Authorized 07/23/2022 11/13/2099 999 [id number] Encounter Details Date Type Department Care Team (Latest Contact Info) Description 12/23/2023 1:30 PM EST Hem/Onc Treatment Hematology/Oncolog y Treatment, [place] [address] [place] [address] Ritu, Chair 9 Hem Onc Scenery [address] [place] [address] Multiple myeloma not having achieved remission (HCC)*; [...] 30 Tab 0 12/25/2018 Active nystatin (NYSTOP) 304229 UNIT/GM powder Apply topically to affected area [...] Sign Reading Time Taken Comments Blood Pressure 135/54 12/23/2023 1:30 PM EST Pulse 60 12/23/2023 1:30 PM EST Temperature 36.7 C (98 F) 12/23/2023 1:30 PM EST Respiratory Rate 16 12/23/2023 1:30 PM EST Oxygen Saturation 94% 12/23/2023 1:30 PM EST Inhaled Oxygen Concentration - - Weight 110.9 kg (244 lb 9.6 oz) 12/23/2023 1:30 PM EST Height - - Body Mass Index 49.31 10/04/2023 12:36 PM EST documented in this [...] as of this encounter Nursing Notes * Sandi Avila, RN - 12/23/2023 3:04 PM EST Chair 5. IV inserted. Port dye study to be completed 12/28, then will assess if port is okay to use for treatments in the future. Patient here today for weekly Cytoxan treatment along with her monthly Darzalex Faspro. Patient is feeling well today, no acute issues or complaints. Chemo agents Cytoxan, Darzalex Faspro Appetite good Nausea/Vomiting no Diarrhea no Constipation no Mucositis no Fatigue no Bleeding no Infection no Rash no Numbness tingling no change Pain mild pain today, manages pain usually with PRN Oxycodone with relieves the pain well per pt Radiation no ABN Labs WNL for tx Alt in Tx: N/A Return in 1 week Safety and Risk for Injury Patient will remain free from injury. Ensure appropriate safety devices are available. Provide and maintain safe environment. Goals: Patient will remain free from injury. Possible barriers to meeting goals: ambulating with IV pole, use of wheelchair for walking far distances Stability of the patient: Moderately stable - low risk of patient condition declining or worsening Summary regarding today's goals: Met: pt remained free of harm today Functional status at today's visit: Restricted in [...] adverse side effects during treatment. Patient tolerated treatment well without any acute issues or problems. Patient left facility in stable condition and denied any further needs. documented in this encounter Plan of Treatment Upcoming Encounters Date Type Department Care Team (Latest Contact Info) Description 12/28/2023 11:17 AM EST Hospital Encounter OR [facility], Operating Room, [facility] - 4th Floor [address] [place] [address] Dustin Velásquez MD [address] [place] [address] 12/28/2023 11:17 AM EST - 12/28/2023 12:27 PM EST Surgery OR [facility], Operating Room, [facility] - 4th Floor [address] [place] [address] Dustin Velásquez MD [address] [place] [address] UNLISTED PROCEDURE VASCULAR SURGERY 12/30/2023 10:00 AM EST Hem/Onc Treatment [address]ematology[address] [address] Ritu, Chair 5 Hem [address]c [address] [address] 01/06/2024 9:00 AM EST Hem/Onc Treatment Hematology/[address], [address] [address] Ritu, Chair 3 Hem Onc [facility] [address] [facility] [place] [address] 03/12/2024 11:00 AM EDT Office Visit Hematology/Oncology [facility] [place] [address] [facility] [place] [address] Mariana Florez CRNP [address] [facility] [place] [address] Scheduled Procedures Name Priority Associated Diagnoses Date/Ti [...] 2 06/2021, 06/13/2020, Additional history exists GFR 12/22/2024 12/22/2023, 02/0 11/2023, 12/08/2023, Additional history exists Pneumococcal Vaccine: 65+ Years Completed 02/18/2017, 01/12/2010 GARDASIL-HPV IMMUNIZATION SERIES Aged Out No longer eligible based on patient's age to complete this topic MENINGOCOCCAL (MENACTRA/MENVEO) Aged Out No longer eligible based on patient's age to complete this topic documented as of this encounter Medical Devices Implanted Type Area Clinical Cytopathologist Device Identifier Shelf Expiration Date Model / Serial / Lot Comprehensive Srs/Nexel Distal Body Implanted:Qty: 1 on 12/23/2018 by Gautam Jasso MD at OR [facility] Right: Upper Arm 03/03/2028 [id number] / / [id number] Valve Ricky 3 Ultra 26mm - [id number] Implanted:Qty: 1 on 05/27/2022 by Jesús Weber MD at CARDIAC LABS [facility] [employer] [id number] 03/17/2023 [id number] / / Port Implant W/8f Poly Cath - [id number] Implanted:Qty: 1 on 12/29/2022 by Sudhir Lovett DO at OR [facility] Right: Chest CR BARD : PERIPHERAL VASCULAR [id number] 02/12/2024 [id number] / / [id number] documented as of this encounter Visit Diagnoses Diagnosis Multiple myeloma not having achieved remission (HCC)- Primary Multiple myeloma, without mention of having achieved remission Encounter for antineoplastic chemotherapy Hypogammaglobulinemia (HCC) Hypogammaglobulinaemia, unspecified Multiple myeloma not having achieved remission (HCC) Multiple myeloma, without mention of having achieved remission Encounter for adjustment and management of vascular access device documented in this encounter Administered Medications Active Administered Medications - up to 3 most recent administrations Medication Order MAR Action Action Date Dose Rate Site diphenhydrAMINE (Benadryl) inj 50 mg 50 mg, IV Push, ONCE PRN Other, Hypersensitivity Reaction, Starting on Tue12/23/23 at 1340, Until 12/24/23 at 1339, For 24 hours EPINEPHrine 1 MG/ML inj 0.3 mg 0.3 mg, Intramuscular, ONCE PRN Other, Hypersensitivity Reaction or Anaphylaxis, Starting on Tue12/23/23 at 1340, Until 12/24/23 at 1339, For 24 hours hEParin 100 UNIT/ML Lock Flush inj 500 Units 500 Units (5 mL), IV Lock, PRN Other, IV Flush, Starting on Tue12/23/23 at 1340, Until 12/24/23 at 1339, For 24 hours, Do not flush if lock, PICC, or central line not in place; IV infusing or unable to flush. Hydrocortisone Sod Suc (PF) (Solu-Cortef) inj 100 mg 100 mg, IV Push, ONCE PRN Other, Hypersensitivity Reaction, Starting on Tue12/23/23 at 1340, Until 12/24/23 at 1339, For 24 hours meperidine (Demerol) 25 MG/ML inj 25 mg 25 mg, IV Push, ONCE PRN Shivering, Starting on Tue12/23/23 at 1340, Until 12/24/23 at 1339, For 24 hours sodium chloride 0.9 % flush central line 10 mL 10 mL, IV Push, PRN Other, IV Flush, Starting on Tue12/23/23 at 1340, Until 12/24/23 at 1339, For 24 hours, Do not flush if lock, PICC, or central line not in place; IV infusing or unable to flush. Inactive Administered Medications - up to 3 most recent administrations Medication Order MAR Action Action Date Dose Rate Site Acetaminophen (Tylenol) tab 650 mg 650 mg, Oral, ONCE, On Tue12/23/23 at 1415, For 1 dose, Maximum of 4 grams (4000 mg) per day. Given 12/23/2023 1:44 PM EST 650 mg cycloPHOSphamide (Cytoxan) 620 mg in NSS 250 mL infusion 620 mg (rounded from 621 mg = 300 mg/m2 2.07 m2 Treatment Plan BSA from Recorded weight), IV Piggyback, at 500 mL/hr, Cyclophosphamide doses over 1g should be in 500 mL. May extend infusion to 1 hour if not tolerated., ONCE, 1 dose, On Tue12/23/23 at 1415 Start Infusion 12/23/2023 2:14 PM EST 620 mg 500 mL/hr Daratumumab-hyaluronidas e-fihj (Darzalex Faspro) 1800 mg-08602 units/ 15 ml subcut inj 15 mL, Subcutaneous, ONCE, On Tue12/23/23 at 1515, For 1 dose, Inject subcutanteously into abdomen over 3 to 5 minutes Given 12/23/2023 2:14 PM EST 15 mL Abdomen Left Lower diphenhydrAMINE (Benadryl) cap 50 mg 50 mg, Oral, ONCE, On Tue12/23/23 at 1415, For 1 dose Given 12/23/2023 1:44 PM EST 50 mg NSS infusion FOR HYDRATION Intravenous, at 50 mL/hr Administer over 10 Hours, ONCE, 1 dose, On Tue12/23/23 at 1415 Start Infusion 12/23/2023 1:45 PM EST 500 mL 50 mL/hr ondansetron (Zofran) tab 8 mg 8 mg, Oral, ONCE, On 12/23/23 at 1415, For 1 dose Given 12/23/2023 1:44 PM EST 8 mg documented in this encounter Advance Directives Documents on File Type Date Recorded Patient Shim Plug Cutter Expl anation Power of Spin Table Operator 12/12/2018 8:46 AM Vipni viveros Power of Spin Table Operator Power of Spin Table Operator 12/12/2018 8:45 AM Zuleyma ferguson Power of Spin Table Operator Latest Code Status on File Code [...] the patient have Health Care Power of Spin Table Operator? Yes, not currently available Full Code 11/21/2018 8:53 AM 11/21/2018 2:27 PM This or bull reflects the patients wishes and were consensually agreed upon. Care Teams Education Adviser Relationship Specialty Start Date End Date Kulwinder Byers MD [address] [place] [address] PCP - General 06/28/03 documented as of this encounter
--- OUTSIDE RECORDS SUMMARY | 2024-01-15 19:55 | External Medical Summary | Summary of Care ---
Author Name Unknown Organization [facility] Address [address] [facility] [place] [address] Phone [phone] Care Team Providers Care Riveting Machine Operator Name Role Phone Kulwinder Byers MD Primary Care Provider [phone] Reason for Visit * Reason Comments Chemotherapy Cytotoxan * Episode Based Medications (Routine) - Authorized Specialty Diagnoses / Procedures Referred By Contac t Referred To Contact Diagnoses Multiple myeloma not having achieved remission (HCC) Procedures SD DARATUMUMAB, HYALURONIDASE SD CYCLOPHOSPHAMIDE 100 MG INJ Jorge Allen MD [address] [place] [address] Anc Hem/Onc Scenegarret Chaney DEPT CLOSED - 09/27/23 [address] [place] [address] Referral ID Status Reason Start Date Expiration Date V isits Requested Visits Authorized [id number] Authorized 07/23/2022 11/13/2099 [id number] Encounter Details Date Type Department Care Team (Latest Contact Info) Description 12/16/2023 9:45 AM EST Hem/Onc Treatment Hematology/Oncolog y Treatment, [place] [address] [place] [address] Ritu, Chair 1 Hem Onc Scenery [address] [place] [...] 30 Tab 0 12/25/2018 Active nystatin (NYSTOP) 084180 UNIT/GM powder Apply topically to affected area [...] Sign Reading Time Taken Comments Blood Pressure 129/83 12/16/2023 9:56 AM EST Pulse 99 12/16/2023 9:56 AM EST Temperature 36.8 C (98.2 F) 12/16/2023 9:56 AM ES T Respiratory Rate 16 12/16/2023 9:56 AM EST Oxygen Saturation 93% 12/16/2023 9:56 AM EST Inhaled Oxygen Concentration - - [...] Nursing Notes * Merrick Gross RN - 12/16/2023 11:20 AM EST Pt infusion completed. Pt denies any reportable symptoms and tolerated her treatment well. Pt left treatment room via this RN in a wheelchair in stable condition. IV site was removed without issue, catheter tip intact. Goals: Pt will remain free from injury. Possible barriers to meeting goals: Diagnosis, IV line Stability of the patient: Moderately stable - low risk of patient condition declining or worsening Summary regarding today's goals: Met: Pt remained free from injury. * Merrick Gross RN - 12/16/2023 9:57 AM EST Chair 2. Pt IV inserted without issues. Pt denies any reportable symptoms at this time, is feeling well overall. Fluids infusing per order. Safety and Risk for Injury Patient will [...] symptoms or adverse side effects during treatment. Chemo agents Cytotoxan Appetite normal Nausea/Vomiting none Diarrhea intermittent per patient Constipation none Mucositis none Fatigue none Bleeding none Infection none Rash none Numbness tingling none Pain none Radiation none ABN Labs labs reviewed and stable Alt in Tx: none Return in 1 week for Cytotoxan/Darzalex Faspro documented in this encounter Plan of Treatment Upcoming Encounters Date Type Department Care Team (Late st Contact Info) Description 12/22/2023 9:10 AM EST Laboratory Laboratory, [place] [address] [place] [address] [facility] Laboratory [address] [place] [address] 12/23/2023 1:30 PM EST Hem/Onc Treatment Hematology/[address], [address] [address] Ritu, Chair 9 Hem Onc [facility] [address] [place], [place] [address] [address] 12/30/2023 10:00 AM EST Hem/Onc Treatment Hematology/Oncology [address], [address] [address] Ritu, Chair 5 Hem Onc [facility] [address] [place] [address] [place], [place] [address] 01/02/2024 10:00 AM EST Hem/Onc Treatment Hematology/Oncology [address], [address] [address] Ritu, Chair 5 Hem Onc [facility] [address] [place] [address], [place] [address] 01/06/2024 9:00 AM EST Hem/Onc Treatment Hematology/Oncology Treatment, [address] [place], [place] [address] Ritu, Chair 3 Hem Onc [facility] [address] [facility] [place] [address] 03/12/2024 11:00 AM EDT Office Visit Hematology/Oncology [facility] 200 [facility] [place] [address] Mariana Florez CRNP [address] [facility] [place] [address] Health Maintenance Due [...] this encounter Medical Devices Implanted Type Area Section Beamer Device Identifier Shelf Expiration Date Model / Serial / Lot Comprehensive Srs/Nexel Distal Body Implanted:Qty: 1 on 12/23/2018 by Gautam Jasso MD at [facility] Right: Upper Arm 03/03/2028 [id number] / / [id number] Valve Ricky 3 Ultra 26mm - [id number] Implanted:Qty: 1 on 05/27/2022 by Jesús Weber MD at [facility] [place] [employer] [id number] 03/17/2023 [id number] / / Port Implant W/8f Poly Cath - [id number] Implanted:Qty: 1 on 12/29/2022 by Sudhir Lovett DO at OR [facility] Right: Chest CR BARD : PERIPHERAL VASCULAR [id number] 02/12/2024 [id number] / / [id number] documented as of this encounter Visit Diagnoses [...] ONCE PRN Other, Hypersensitivity Reaction, Starting on Tue12/16/23 at 0945, Until 12/17/23 at 0944, For 24 hours EPINEPHrine 1 MG/ML inj 0.3 mg 0.3 mg, Intramuscular, ONCE PRN Other, Hypersensitivity Reaction or Anaphylaxis, Starting on Tue12/16/23 at 0945, Until 12/17/23 at 0944, For 24 hours hEParin 100 UNIT/ML Lock Flush inj 500 Units 500 Units (5 mL), IV Lock, PRN Other, IV Flush, Starting on Tue12/16/23 at 0945, Until 12/17/23 at 0944, For 24 hours, Do not flush if lock, PICC, or central line not in place; IV infusing or unable to flush. Hydrocortisone Sod Suc (PF) (Solu-Cortef) inj 100 mg 100 mg, IV Push, ONCE PRN Other, Hypersensitivity Reaction, Starting on Tue12/16/23 at 0945, Until 12/17/23 at 0944, For 24 hours sodium chloride 0.9 % flush central line 10 mL 10 mL, IV Push, PRN Other, IV Flush, Starting on Tue12/16/23 at 0945, Until 12/17/23 at 0944, For 24 hours, Do not flush if [...] if not tolerated., ONCE, 1 dose, On Tue12/16/23 at 1030 Start Infusion 12/16/2023 10:23 AM EST 620 mg 500 mL/hr NSS infusion FOR HYDRATION Intravenous, at 50 mL/hr Administer over 10 Hours, ONCE, 1 dose, On Tue12/16/23 at 1030 Start Infusion 12/16/2023 9:52 AM EST 500 mL 50 mL/hr ondansetron (Zofran) tab 8 mg 8 mg, Oral, ONCE, On Tue12/16/23 at 1030, For 1 dose Given 12/16/2023 9:52 AM EST 8 mg documented in this encounter Advance Directives Documents on File Type Date Recorded Patient Carbon Brushes Assembler Expl anation Power of Insurance Risk Surveyor 12/12/2018 8:46 AM Vipin viveros Power of Insurance Risk Surveyor Power of Insurance Risk Surveyor 12/12/2018 8:45 AM Zuleyma ferguson Power of Insurance Risk Surveyor Latest Code Status on File Code Status [...] the patient have Health Care Power of Insurance Risk Surveyor? Yes, not currently available Full Code 11/21/2018 8:53 AM 11/21/2018 2:27 PM This or bull reflects the patients wishes and were consensually agreed upon. Care Teams Riveting Machine Operator Relationship Specialty Start Date End Date Kulwinder Byers MD [address] [address] PCP - General 06/28/03 documented as of this encounter
--- OUTSIDE RECORDS SUMMARY | 2024-01-15 19:55 | External Medical Summary ---
Author Name Unknown Address Unknown Organization K01:LABORATORY [facility] - [facility] [address] [place] [address] Laboratory Report Ordering Provider Test Date Status WOOD CANTU 12/22/2023 15:30:00 Final Observation Date Value Abnormality Reference (Units ) Status WBC, Total 12/22/2023 15:30:00 2.81 Below low normal 4.00-10.80 (K/uL) Final RBC 12/22/2023 15:30:00 3.50 3.85-5.15 (M/uL) Final Hemoglobin 12/22/2023 15:30:00 11.0 Below low normal 12.0-15.3 (g/dL) Final HCT 12/22/2023 15:30:00 34.7 Below low normal 36.0-45.2 (%) Final MCV 12/22/2023 15:30:00 99.1 81.5-97.5 (fL) Final MCH 12/22/2023 15:30:00 31.4 27.0-34.0 (pg) Final MCHC 12/22/2023 15:30:00 31.7 32.0-36.0 (g/dL) Final RDW 12/22/2023 15:30:00 17.2 11.5-15.5 (%) Final Platelets 12/22/2023 15:30:00 117 Below low normal 140-400 (K/uL) Final MPV 12/22/2023 15:30:00 12.6 6.6-11.1 (fL) Final Nucleated erythrocytes/100 leukocytes [Ratio] in Blood by Automated count 12/22/2023 15:30:00 0 <=0 (/100 WBCs) Final Performing Location LABORATORY [facility] - [address] [place] [address]
--- OUTSIDE RECORDS SUMMARY | 2024-01-15 19:55 | External Medical Summary | Summary of Care ---
Author Name Unknown Organization [facility] Address [address] [place] [address] Phone [phone] Care Team Providers Care Cleat Thrower Name Role Phone Kulwinder Byers MD Primary Care Provider [phone] Reason for Visit * Reason Onset Date Comments Advice 12/28/2023 Mariana Florez Encounter Details Date Type Department Care Team (Late st Contact Info) Description 12/28/2023 Telephone Hematology/Oncology [facility] [place] [facility] [address] Services, Scheduling [address] [place] [address] Advice (Mariana Florez) Allergies Active Allergy Reactions [...] 30 Tab 0 12/25/2018 Active nystatin (NYSTOP) 988919 UNIT/GM powder Apply topically to affected area [...] on 12/30 Please call pt back at [phone] documented in this encounter Plan of Treatment Upcoming Encounters Date Type Department Care Team (Late st Contact Info) Description 01/02/2024 12:00 PM EST Office Visit Interventional Radiology, [facility] [address] [place] [address] Dustin Velásquez MD [address] [place] [address] 01/06/2024 11:45 AM EST Hem/Onc Treatment Hematology/Oncology Treatment, [address] [address] Ritu, Chair 5 Hem Onc [address] [place] [address] 03/12/2024 3:00 PM EDT Office Visit Hematology/Oncology [address] [place] [address] Mariana Florez CRNP [address] [place] [address] Scheduled Procedures Name Priority Associated Diagnoses Date/Ti [...] this encounter Medical Devices Implanted Type Area Garbage Person Device Identifier Shelf Expiration Date Model / Serial / Lot Comprehensive Srs/Nexel Distal Body Implanted:Qty: 1 on 12/23/2018 by Gautam Jasso MD at OR [facility] Right: Upper Arm 03/03/2028 [id number] / / [id number] Valve Ricky 3 Ultra 26mm - [id number] Implanted:Qty: 1 on 05/27/2022 by Jesús Weber MD at [facility] [place] [employer] [id number] 03/17/2023 [id number] / / Port Implant W/8f Poly Cath - [id number] Implanted:Qty: 1 on 12/29/2022 by Sudhir Lovett DO at OR [facility] Right: Chest CR BARD : PERIPHERAL VASCULAR [id number] 02/12/2024 [id number] / / [id number] documented as of this encounter Advance Directives Documents on File Type Date Recorded Patient Inventory Control Coordinator Expl anation Power of Lifter 12/12/2018 8:46 AM Vipin viveros Power of Lifter Power of Lifter 12/12/2018 8:45 AM Zuleyma ferguson Power of Lifter Latest Code Status on File Code Status [...] the patient have Health Care Power of Lifter? Yes, not currently available Full Code 11/21/2018 8:53 AM 11/21/2018 2:27 PM This or bull reflects the patients wishes and were consensually agreed upon. Care Teams Cleat Thrower Relationship Specialty Start Date End Date Kulwinder Byers MD [address] [place] [address] PCP - General 06/28/03 documented as of this encounter
--- OUTSIDE RECORDS SUMMARY | 2024-01-15 19:55 | External Medical Summary | Summary of Care ---
Author Name Unknown Organization [facility] Address [address] [place] [address] Phone [phone] Care Team Providers Care Marketing Production Specialist Name Role Phone Kulwinder Byers MD Primary Care Provider [phone] Reason for Visit * Reason Onset Date Comments Appointment 12/26/2023 Mariana Florez Encounter Details Date Type Department Care Team (Late st Contact Info) Description 12/26/2023 Telephone Hematology/Oncology [facility] [place] [facility] [address] Services, Scheduling [address] [place] [address] Appointment (Mariana Florez) Allergies Active Allergy Reactions Criticality Noted Date Comments Adhesive Tape 05/28/2003 documented as of this encounter (statuses as of 12/26/2023) Medications Medication Sig Dispensed Refills Start Date [...] 30 Tab 0 12/25/2018 Active nystatin (NYSTOP) 132075 UNIT/GM powder Apply topically to affected area [...] IR)Indications: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 [facility]/30 [facility] 01/06 both for 1pm Please call pt back at [phone] Thank you documented in this encounter Plan of Treatment Upcoming Encounters Date Type Department Care Team (Latest Contact Info) Description 12/28/2023 11:17 AM EST Hospital Encounter OR [facility], Operating Room, [facility] - 4th Floor [address] [place] [address] Dustin Velásquez MD [address] [place] [address] 12/28/2023 11:17 AM EST - 12/28/2023 12:27 PM EST Surgery OR [facility], Operating Room, [facility] - 4th Floor [address] [address] Dustin Velásquez MD [address] [place] [address] UNLISTED PROCEDURE VASCULAR SURGERY 12/30/2023 1:00 PM EST Hem/Onc Treatment Hematology/Oncology Treatment, [place] [address] [facility] [address] Ritu, Chair 4 Hem Onc [address] [place] [address] [place] [address] 01/06/2024 11:45 AM EST Hem/Onc Treatment Hematology/Oncology Treatment, [place] [address] [facility] [address] Ritu, Chair 5 Hem Onc [address] [place] [address] 03/12/2024 3:00 PM EDT Office Visit Hematology/Oncology [facility] Ritu [address] [place] [address] Mariana Florez CRNP [address] [place] [address] Scheduled Procedures Name Priority Associated Diagnoses Date/Ti [...] this encounter Medical Devices Implanted Type Area Health Education Coordinator Device Identifier Shelf Expiration Date Model / Serial / Lot Comprehensive Srs/Nexel Distal Body Implanted:Qty: 1 on 12/23/2018 [place]am [place] [facility] [place] Upper Arm 03/03/2028 [id number] / / [id number] Valve Ricky 3 Ultra 26mm - [id number] Implanted:Qty: 1 on 05/27/2022 [place] Jesús Weber [place] [facility] [place] Path [id number] 03/17/2023 [id number] / / Port Implant W/8f Poly Cath - [id number] Implanted:Qty: 1 on 12/29/2022 by Sudhir Lovett DO at OR [facility] Right: Chest CR BARD : PERIPHERAL VASCULAR [id number] 02/12/2024 [id number] / / [id number] documented as of this encounter Advance Directives Documents on File Type Date Recorded Patient Rotational Moulding Operator Expl anation Power of Health And Safety Trainer 12/12/2018 8:46 AM Vipin viveros Power of Health And Safety Trainer Power of Health And Safety Trainer 12/12/2018 8:45 AM Zuleyma ferguson Power of Health And Safety Trainer Latest Code Status on File Code [...] the patient have Health Care Power of Health And Safety Trainer? Yes, not currently available Full Code 11/21/2018 8:53 AM 11/21/2018 2:27 PM This or bull reflects the patients wishes and were consensually agreed upon. Care Teams Marketing Production Specialist Relationship Specialty Start Date End Date Kulwinder Byers MD [address] [place] [address] PCP - General 06/28/03 documented as of this encounter
--- OUTSIDE RECORDS SUMMARY | 2024-01-15 19:55 | External Medical Summary | Summary of Care ---
Author Name Unknown Organization [facility] Address [address] [place] [address] Phone [phone] Care Team Providers Care Procurement Cost Coordinator Name Role Phone Kulwinder Byers MD Primary Care Provider [phone] Reason for Visit * Reason Onset Date Comments Advice 12/28/2023 Mariana Florez Encounter Details Date Type Department Care Team (Late st Contact Info) Description 12/28/2023 Telephone Hematology/Oncology [facility] [place] [address] [facility] [address] Services, Scheduling [address] [place] [address] Advice (Mariana Florez) Allergies Active Allergy Reactions [...] 30 Tab 0 12/25/2018 Active nystatin (NYSTOP) 838107 UNIT/GM powder Apply topically to affected area [...] on 12/30 Please call pt back at [phone] documented in this encounter Plan of Treatment Upcoming Encounters Date Type Department Care Team (Late st Contact Info) Description 01/02/2024 12:00 PM EST Office Visit Interventional Radiology, [facility] [address] [place] [address] Dustin Velásquez MD [address] [place] [address] 01/06/2024 11:45 AM EST Hem/Onc Treatment Hematology/Oncology Treatment, [address] [address] Ritu, Chair 5 Hem On[address] [place] [address] 03/12/2024 3:00 PM EDT Office Visit Hematology/Oncology [address] [place] [address] Mariana Florez CRNP [address] [place] [address] Scheduled Procedures Name Priority Associated Diagnoses Date/Ti [...] this encounter Medical Devices Implanted Type Area Spanish Lecturer Device Identifier Shelf Expiration Date Model / Serial / Lot Comprehensive Srs/Nexel Distal Body Implanted:Qty: 1 on 12/23/2018 by Gautam Jasso MD at OR [facility] [place] Right: Upper Arm 03/03/2028 [id number] / / [id number] Valve Ricky 3 Ultra 26mm - [id number] Implanted:Qty: 1 on 05/27/2022 by Jesús Weber MD at [facility] [place] [employer] [id number] 03/17/2023 [id number] / / Port Implant W/8f Poly Cath - [id number] Implanted:Qty: 1 on 12/29/2022 by Sudhir Lovett DO at OR [facility] Right: Chest CR BARD : PERIPHERAL VASCULAR [id number] 02/12/2024 [id number] / / [id number] documented as of this encounter Advance Directives Documents on File Type Date Recorded Patient Heavy Equipment Technician Expl anation Power of Guard Dance [place] 12/12/2018 8:46 AM Vipin viveros Power of Guard Dance [place] Power of Guard Dance [employer] 12/12/2018 8:45 AM Zuleyma ferguson Power of Guard Dance [employer] Latest Code Status on File Code Status [...] the patient have Health Care Power of Guard Dance [place]? Yes, not currently available Full Code 11/21/2018 8:53 AM 11/21/2018 2:27 PM This or bull reflects the patients wishes and were consensually agreed upon. Care Teams Procurement Cost Coordinator Relationship Specialty Start Date End Date Kulwinder Byers MD [address] [place] [address] PCP - General 06/28/03 documented as of this encounter
--- OUTSIDE RECORDS SUMMARY | 2024-01-15 19:55 | External Medical Summary ---
Author Name Unknown Address Unknown Organization : Laboratory Report Ordering Provider Test Date Status ALYSON IRAHETA 12/28/2023 10:19:08 Final Observation Date Value Abnormality Reference (Units ) Status Glucose Point of Care 12/28/2023 10:19:08 143 Above high normal 70-120 (mg/dL) Final Performing Location
--- OUTSIDE RECORDS SUMMARY | 2024-01-15 19:55 | External Medical Summary | Summary of Care ---
Author Name Unknown Organization [facility] [address] [facility] [address] Phone [phone] Care Team Providers Care Handle Finisher Name Role Phone Kulwinder Byers MD Primary Care Provider Reason for Visit * Reason Comments Outpatient Testing Encounter Details Date Type Department Care Team (Late st Contact Info) Description 12/15/2023 12:50 PM EST Laboratory Laboratory, [place] [address] [place] [address] [place], [facility] [address], [place] [id number] Multiple myeloma not having achieved remission (HCC) Allergies Active Allergy Reactions Criticality Noted Date Comments Adhesive Tape 05/28/2003 documented as of this encounter (statuses as of 12/15/2023) Medications Medication Sig Dispensed Refills Start Date [...] 30 Tab 0 12/25/2018 Active nystatin (NYSTOP) 974504 UNIT/GM powder Apply topically to affected area [...] as of this encounter (statuses as of 12/15/2023) Active Problems Problem Noted Date Diagnosed Date [...] as of this encounter (statuses as of 12/15/2023) Resolved Problems Problem Noted Date Diagnosed Date 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 Aortic valve stenosis 2021 documented as of this encounter (statuses as of 12/15/2023) Social History Tobacco Use Types Packs/Day Years [...] 9:45 AM EST Hem/Onc Treatment Hematology/Oncology Treatment, [place] [address] [place] [address] Ritu, Chair 1 Hem Onc Scenery [address] [place] [address] 12/30/2023 10:00 AM EST Hem/Onc Treatment Hematology/Oncology Treatment, [place] 200 [place] [address] Ritu, Chair 5 Hem Onc Scenery 200 [facility] [place], [place] [address] 01/02/2024 10:00 AM EST Hem/Onc Treatment Hematology/Oncology Treatment, [address] [place] [address] Ritu, Chair 5 Hem Onc Scenery 200 [facility] [place], [place] [address] 01/06/2024 9:00 AM EST Hem/Onc Treatment Hematology/Oncology Treatment, [address] [place] [address] Ritu, Chair 3 Hem Onc Scenery 200 [facility] [place], [place] [address] 03/12/2024 11:00 AM EDT Office Visit [facility] [place] 200 [facility] [place], [place] [address] Mariana Florez CRNP [address] [facility] [place] [address] Pending Results Name Type Priority Associated Diagnoses Date /Time CBC WITH WBC DIFFERENTIAL Lab STAT Multiple myeloma not having achieved remission (HCC) 12/15/2023 3:30 PM EST COMPREHENSIVE METABOLIC PANEL Lab STAT Multiple myeloma not having achieved remission (HCC) 12/15/2023 3:30 PM EST SERUM PROTEIN ELECTROPHORESIS REFLEX PROFILE Lab STAT Multiple myeloma not having achieved remission (HCC) 12/15/2023 3:30 PM EST SERUM FREE LIGHT CHAINS Lab STAT Multiple myeloma not having achieved remission (HCC) 12/15/2023 3:30 PM EST IMMUNOGLOBULIN QUANTITATIVE Lab STAT Multiple myeloma not having achieved remission (HCC) 12/15/2023 3:30 PM EST PHOSPHORUS Lab STAT Multiple myeloma not having achieved remission (HCC) 12/15/2023 3:30 PM EST CBC Lab STAT Multiple myeloma not having achieved remission (HCC) 12/15/2023 3:30 PM EST DIFFERENTIAL, AUTOMATED Lab STAT Multiple myeloma not having achieved remission (HCC) 12/15/2023 3:30 PM EST Health Maintenance Due Date [...] 10/19/2023, 11/15, 06/13/2020, Additional history exists GFR 12/08/2024 12/08/2023, 11/14, 11/24/2023, Additional history exists Pneumococcal Vaccine: 65+ Years Completed 02/18/2017, 01/12/2010 GARDASIL-HPV IMMUNIZATION SERIES Aged Out No longer eligible based on patient's age to complete this topic MENINGOCOCCAL (MENACTRA/MENVEO) Aged Out No longer eligible based on patient's age to complete this topic documented as of this encounter Medical Devices Implanted Type Area Front Desk Administrator Device Identifier Shelf Expiration Date Model / Serial / Lot Comprehensive Srs/Nexel Distal Body Implanted:Qty: 1 on 12/23/2018 by Gautam Jasso MD at OR [facility] Right: Upper Arm 03/03/2028 [id number] / / [id number] Valve Ricky 3 Ultra 26mm - [id number] Implanted:Qty: 1 on 05/27/2022 by Jesús Weber MD at [facility]ARDIAC LABS [facility] [employer] [id number] 03/17/2023 [id number] / / Port Implant W/8f Poly Cath - [id number] Implanted:Qty: 1 on 12/29/2022 by Sudhir Lovett DO at OR [facility] Right: Chest CR BARD : PERIPHERAL VASCULAR [id number] 02/12/2024 [id number] / / [id number] documented as of this encounter Visit Diagnoses Diagnosis Multiple myeloma not having achieved remission (HCC) Multiple myeloma, without mention of having achieved remission documented in this encounter Advance Directives Documents on File Type Date Recorded Patient Phone Specialist Expl anation Power of Dental Treatment Coordinator 12/12/2018 8:46 AM Vipin viveros Power of Dental Treatment Coordinator Power of Dental Treatment Coordinator 12/12/2018 8:45 AM Zuleyma ferguson Power of Dental Treatment Coordinator Latest Code Status on File Code Status [...] the patient have Health Care Power of Dental Treatment Coordinator? Yes, not currently available Full Code 11/21/2018 8:53 AM 11/21/2018 2:27 PM This or bull reflects the patients wishes and were consensually agreed upon. Care Teams Handle Finisher Relationship Specialty Start Date End Date Kulwinder Byers MD [address] [place] [address] PCP - General 06/28/03 documented as of this encounter
--- OUTSIDE RECORDS SUMMARY | 2024-01-15 19:55 | External Medical Summary | Summary of Care ---
Author Name Unknown Organization [facility] Address [address] [facility] [place] [address] Phone [phone] Care Team Providers Care Carrier Associate Name Role Phone Kulwinder Byers MD Primary Care Provider [phone] Reason for Visit * Reason Comments Chemotherapy Cytotoxan * Episode Based Medications (Routine) - Authorized Specialty Diagnoses / Procedures Referred By Contac t Referred To Contact Diagnoses Multiple myeloma not having achieved remission (HCC) Procedures [place] DARATUMUMAB, HYALURONIDASE [place] CYCLOPHOSPHAMIDE 100 MG INJ Jorge Allen MD [address] [place] [address] Anc Hem/Onc Scenegarret Chaney DEPT CLOSED - 09/27/23 [address] [place] [address] Referral ID Status Reason Start Date Expiration Date V isits Requested Visits Authorized [id number] Authorized 07/23/2022 11/13/2099 999 99 Encounter Details Date Type Department Care Team (Latest Contact Info) Description 12/16/2023 9:45 AM EST Hem/Onc Treatment Hematology/Oncolog y Treatment, [place] [address] [place] [address] Ritu, Chair 1 Hem Onc Scenery 200 [...] 30 Tab 0 12/25/2018 Active nystatin (NYSTOP) 115255 UNIT/GM powder Apply topically to affected area [...] Description 12/22/2023 9:10 AM EST Laboratory Laboratory, [place] [address] [place] [address] [facility] Laboratory [address] [place] [address] 12/23/2023 1:30 PM EST Hem/Onc Treatment Hematology/Oncology [address], [address] [address] Ritu, Chair 9 Hem Onc [facility] [address] [place], [place] [address] [address] 12/30/2023 10:00 AM EST Hem/Onc Treatment Hematology/Oncology Treatment, [address] [address] Ritu, Chair 5 Hem Onc [facility] [address] [place] [address] [place], [place] [address] 01/02/2024 10:00 AM EST Hem/Onc Treatment Hematology/Oncology Treatment, [address] [address] Ritu, Chair 5 Hem Onc [facility] [address] [place] [address], [place] [address] 01/06/2024 9:00 AM EST Hem/Onc Treatment Hematology/Oncology Treatment, [address] [place], [place] [address] Ritu, Chair 3 Hem Onc [place] [address] [place] [address] 03/12/2024 11:00 AM EDT Office Visit Hematology/Oncology [facility] [address] [place] [address] Mariana Florez CRNP 400 [facility] [place] [address] Health Maintenance [...] this encounter Medical Devices Implanted Type Area Regional Intermodal Truck Driver Device Identifier Shelf Expiration Date Model / Serial / Lot Comprehensive Srs/Nexel Distal Body Implanted:Qty: 1 on 12/23/2018 by Gautam Jasso MD at [facility] Right: Upper Arm 03/03/2028 [id number] / / [id number] Valve Ricky 3 Ultra 26mm - [id number] Implanted:Qty: 1 on 05/27/2022 by Jesús Weber MD at [facility] [employer] [id number] 03/17/2023 [id number] / / Port Implant W/8f Poly Cath - [id number] Implanted:Qty: 1 on 12/29/2022 by Sudhir Lovett DO at OR [facility] Right: Chest CR BARD : PERIPHERAL VASCULAR [id number] 02/12/2024 [id number] / / [id number] documented as of this encounter Visit Diagnoses [...] Documents on File Type Date Recorded Patient Client Coordinator Expl anation Power of Certified Medication Technician 12/12/2018 8:46 AM Vipin ivveros Power of Certified Medication Technician Power of Certified Medication Technician 12/12/2018 8:45 AM Zuleyma ferguson Power of Certified Medication Technician Latest Code Status on File Code [...] the patient have Health Care Power of Certified Medication Technician? Yes, not currently available Full Code 11/21/2018 8:53 AM 11/21/2018 2:27 PM This or bull reflects the patients wishes and were consensually agreed upon. Care Teams Carrier Associate Relationship Specialty Start Date End Date Kulwinder Byers MD [address] [address] PCP - General 06/28/03 documented as of this encounter
--- OUTSIDE RECORDS SUMMARY | 2024-01-15 19:55 | External Medical Summary | Summary of Care ---
Author Name Unknown Organization [facility] Address [address] [facility] [place] [address] Phone [phone] Care Team Providers Care Teacher Of The Handicapped Name Role Phone Kulwinder Byers MD Primary Care Provider [phone] Reason for Visit * Reason Onset Date Comments Scheduling 12/20/2023 Encounter Details Date Type Department Care Team (Late st Contact Info) Description 12/20/2023 Telephone Hematology/Oncology [place] 200 [facility] [place] [address] Jorge Allen MD 200 [facility] [place] [address] Scheduling Allergies Active Allergy Reactions Criticality Noted Date Comments Adhesive Tape 05/28/2003 documented as of this encounter (statuses as of 12/20/2023) Medications Medication Sig Dispensed Refills Start Date [...] 30 Tab 0 12/25/2018 Active nystatin (NYSTOP) 249982 UNIT/GM powder Apply topically to affected area [...] as of this encounter (statuses as of 12/20/2023) Active Problems Problem Noted Date Diagnosed Date [...] as of this encounter (statuses as of 12/20/2023) Resolved Problems Problem Noted Date Diagnosed Date 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 Aortic valve stenosis 2021 documented as of this encounter (statuses as of 12/20/2023) Social History Tobacco Use Types Packs/Day Years [...] encounter Miscellaneous Notes * Telephone Encounter - Jesica Milian, DARRELL - 12/20/2023 10:53 AM EST Spoke to patient to schedule the Port Dye study for 12/28 at [facility] Patient identified by: name/birthdate Person taught: Patient METHOD: Lecture-telephone interview Patient Preferred Learning Methods: Lecture-Telephone interview PATIENT INSTRUCTIONS GIVEN: - General Preoperative Instructions Reviewed - No food or fluid restrictions prior procedure - Mortar Maker recommended Location and check-in instructions Verbalizes understanding of education: Yes Procedure date at time of Imaging Encounter: 12/28 What procedure is patient having? Port dye study Laterality confirmed as N/a Does the patient have a yellow bar? Did not The Patient was given the opportunity to ask questions concerning the procedure. Signature: DARRELL Abreu 12/20/2023 documented in this encounter Plan of Treatment Upcoming Encounters Date Type Department Care Team (Latest Contact Info) Description 12/22/2023 3:20 PM EST Laboratory Laboratory, [address] [id number] [place] [address] [place] [address] 12/23/2023 1:30 PM EST Hem/Onc Treatment Hematology/Oncolog y Treatment, [place] [address] [place] [address] Ritu, Chair 9 Hem Onc Scenery [address] [place] [address] 12/28/2023 11:17 AM EST Hospital Encounter OR [facility], Operating Room, [facility] - 4th Floor [address] [place] [address] Dustin Velásquez MD [address] [place] [address] 12/28/2023 11:17 AM EST - 12/28/2023 12:27 PM EST Surgery OR [facility], Operating Room, [facility] - 4th Floor [address] [place] [address] Dustin Velásquez MD [address] [place] [address] UNLISTED PROCEDURE VASCULAR SURGERY 12/30/2023 10:00 AM EST Hem/Onc Treatment Hematology/Oncolog y Treatment, [place] 200 [place] [address] Ritu, Chair 5 Hem Onc Scenery [address] [place], [place] [address] 01/02/2024 10:00 AM EST Hem/Onc Treatment Hematology/Oncolog y Treatment, [place] [address] [place] [address] Ritu, Chair 5 Hem Onc Scenery [address] [place], [place] [address] 01/06/2024 9:00 AM EST Hem/Onc Treatment Hematology/Oncolog y Treatment, [place] [address] [facility], [place] [address] Ritu, Chair 3 Hem Onc Scenery [address] [place], [place] [address] 03/12/2024 11:00 AM EDT Office Visit Hematology/Oncolog y Scenery [place] [address] [place], [place] [address] Mariana Florez CRNP [address] [place] [address] [place] [phone] Scheduled Procedures Name Priority Associated Diagnoses Date/Ti [...] this encounter Medical Devices Implanted Type Area Collar Sewer Device Identifier Shelf Expiration Date Model / Serial / Lot Comprehensive Srs/Nexel Distal Body Implanted:Qty: 1 on 12/23/2018 by Gautam Jasso MD at OR [facility] Right: Upper Arm 03/03/2028 [id number] / / [id number] Valve Ricky 3 Ultra 26mm - [id number] Implanted:Qty: 1 on 05/27/2022 by Jesús Weber MD at CARDIAC LABS [facility] [employer] [id number] 03/17/2023 [id number] / / Port Implant W/8f Poly Cath - [id number] Implanted:Qty: 1 on 12/29/2022 by Sudhir Lovett DO at OR [facility] Right: Chest CR BARD : PERIPHERAL VASCULAR [id number] 02/12/2024 [id number] / / [id number] documented as of this encounter Advance Directives Documents on File Type Date Recorded Patient Disaster Director Expl anation Power of Oil Deliverer 12/12/2018 8:46 AM Vipin viveros Power of Oil Deliverer Power of Oil Deliverer 12/12/2018 8:45 AM Zuleyma ferguson Power of Oil Deliverer Latest Code Status on File Code Status [...] the patient have Health Care Power of Oil Deliverer? Yes, not currently available Full Code 11/21/2018 8:53 AM 11/21/2018 2:27 PM This or bull reflects the patients wishes and were consensually agreed upon. Care Teams Teacher Of The Handicapped Relationship Specialty Start Date End Date Kulwinder Byers MD [address] [place] [address] PCP - General 06/28/03 documented as of this encounter
--- OUTSIDE RECORDS SUMMARY | 2024-01-15 19:55 | External Medical Summary ---
Author Name Unknown Address Unknown Organization K01:[facility] [place] - [address] [facility] [place] [address] Laboratory Report Ordering Provider Test Date Status WOOD CANTU 12/22/2023 15:30:00 Final Observation Date Value Abnormality Reference (Units ) Status SYNC LEUKOCYTES IN BLOOD BY AUTOMATED COUNT 12/22/2023 15:30:00 2.81 Below low normal 4.00-10.80 (K/uL) Final Segs 12/22/2023 15:30:00 74.7 40.0-75.0 (%) Final Lymphs % 12/22/2023 15:30:00 5.7 Below low normal 18.0-42.0 (%) Final Monos 12/22/2023 15:30:00 16.0 Above high normal 1.0-11.0 (%) Final Eosinophils 12/22/2023 15:30:00 2.5 0.0-6.0 (%) Final Basos 12/22/2023 15:30:00 0.4 0.0-2.0 (%) Final Immature Granulocyte, Percent 12/22/2023 15:30:00 0.7 0.0-2.0 (%) Final Absolute Segs 12/22/2023 15:30:00 2.10 1.80-7.70 (K/uL) Final Lymphs, absolute 12/22/2023 15:30:00 0.16 Below low normal 1.00-4.80 (K/ul) Final Monos, Abs 12/22/2023 15:30:00 0.45 0.00-1.10 (K/uL) Final Eos, Abs 12/22/2023 15:30:00 0.07 0.00-0.70 (K/uL) Final Basos, Abs 12/22/2023 15:30:00 0.01 0.00-0.20 (K/uL) Final Immature Granulocytes, Number 12/22/2023 15:30:00 0.02 0.00-0.20 (K/uL) Final Performing Location [facility] [place] - [facility] [address] [facility] [address]
--- OUTSIDE RECORDS SUMMARY | 2024-01-15 19:55 | External Medical Summary | Summary of Care ---
Author Name Unknown Organization [facility] Address [address] [facility] [place] [address] Phone [phone] Care Team Providers Care Dynamics Ax Technical Architect Name Role Phone Kulwinder Byers MD Primary Care Provider [phone] Reason for Visit * Reason Comments Chemotherapy Cytotoxan * Episode Based Medications (Routine) - Authorized Specialty Diagnoses / Procedures Referred By Contac t Referred To Contact Diagnoses Multiple myeloma not having achieved remission (HCC) Procedures [place] DARATUMUMAB, HYALURONIDASE [place] CYCLOPHOSPHAMIDE 100 MG INJ Jorge Allen MD [address] [place] [address] Anc Hem/Onc Scenegarret Chaney DEPT CLOSED - 09/27/23 [address] [place] [address] Referral ID Status Reason Start Date Expiration Date V isits Requested Visits Authorized [id number] Authorized 07/23/2022 11/13/2099 999 99 Encounter Details Date Type Department Care Team (Latest Contact Info) Description 12/16/2023 9:45 AM EST Hem/Onc Treatment Hematology/Oncolog y Treatment, [place] [address] [place] [address] Ritu, Chair 1 Hem Onc Scenery 200 [...] 30 Tab 0 12/25/2018 Active nystatin (NYSTOP) 656572 UNIT/GM powder Apply topically to affected area [...] Description 12/22/2023 9:10 AM EST Laboratory Laboratory, [place] [address] [place] [address] [facility] [address] [place] [address] 12/23/2023 1:30 PM EST Hem/Onc Treatment Hematology/[address], [address] [address] Ritu, Chair 9 [facility] [address] [place], [place] [address] [address] 12/30/2023 10:00 AM EST Hem/Onc Treatment Hematology/Oncology [address], [address] [address] Ritu, Chair 5 Hem Onc [facility] [address] [place] [address] [place], [place] [address] 01/02/2024 10:00 AM EST Hem/Onc Treatment Hematology/Oncology [address], [address] [address] Ritu, Chair 5 Hem Onc [facility] [address] [place] [address], [place] [address] 01/06/2024 9:00 AM EST Hem/Onc Treatment Hematology/Oncology Treatment, [address] [place], [place] [address] Ritu, Chair 3 Hem Onc [facility] 200 [facility] [place] [address] 03/12/2024 11:00 AM EDT Office Visit Hematology/Oncology [facility] 200 [facility] [place] [address] [place] Florez CRNP 400 [facility] [place] [address] Health Maintenance [...] this encounter Medical Devices Implanted Type Area Cable Tower Operator Device Identifier Shelf Expiration Date Model / Serial / Lot Comprehensive Srs/Nexel Distal Body Implanted:Qty: 1 on 12/23/2018 by Gautam Jasso MD at [facility] Right: Upper Arm 03/03/2028 [id number] / / [id number] Valve Ricky 3 Ultra 26mm - [id number] Implanted:Qty: 1 on 05/27/2022 by Jesús Weber MD at [facility] [employer] [id number] 03/17/2023 [id number] / / Port Implant W/8f Poly Cath - [id number] Implanted:Qty: 1 on 12/29/2022 by Sudhir Lovett DO at OR [facility] Right: Chest CR BARD : PERIPHERAL VASCULAR [id number] 02/12/2024 [id number] / / [id number] documented as of this encounter Visit Diagnoses [...] Documents on File Type Date Recorded Patient Worm Sorter Expl anation Power of Supervisor Fish Processing 12/12/2018 8:46 AM Vipin viveros Power of Supervisor Fish Processing Power of Supervisor Fish Processing 12/12/2018 8:45 AM Zuleyma ferguson Power of Supervisor Fish Processing Latest Code Status on File Code Status [...] the patient have Health Care Power of Supervisor Fish Processing? Yes, not currently available Full Code 11/21/2018 8:53 AM 11/21/2018 2:27 PM This or bull reflects the patients wishes and were consensually agreed upon. Care Teams Dynamics Ax Technical Architect Relationship Specialty Start Date End Date Kulwinder Byers MD [address] [address] PCP - General 06/28/03 documented as of this encounter
--- OUTSIDE RECORDS SUMMARY | 2024-01-15 19:55 | External Medical Summary | Summary of Care ---
Author Name Unknown Organization [facility] Address [address] [place] [address] Phone [phone] Care Team Providers Care Finance Clerk Name Role Phone Kulwinder Byers MD Primary Care Provider Reason for Visit * Reason Onset Date Comments Advice 12/17/2023 Encounter Details Date Type Department Care Team (Late st Contact Info) Description 12/17/2023 Telephone General Internal Medicine, [facility] [address] [place] [address] Kulwinder Byers MD [address] [address] Advice Allergies Active Allergy Reactions Criticality Noted [...] 30 Tab 0 12/25/2018 Active nystatin (NYSTOP) 901718 UNIT/GM powder Apply topically to affected area [...] Telephone Encounter - Love Quick RN - 12/20/2023 1:40 PM EST Called patient- advised that if her lab work is being drawn at home that is ok, lab appt was made as a place tse. She will follow up with Stephanie to make sure her labs are going to be drawn. * Telephone Encounter - Marcela Stephenson OSA - 12/17/2023 2:28 PM EST Pt called in regards to her lab appt on 12/22. She stated that her lab appts are typically done at home, and she would like clarification as to whether or not the appt on 12/22 is at home or not. Please call to further discuss. Thank you. documented in this encounter Plan of Treatment Upcoming Encounters Date Type Department Care Team (Latest Contact Info) Description 12/22/2023 3:20 PM EST Laboratory Laboratory, [address] [id number] [address] [address] 12/23/2023 1:30 PM EST Hem/Onc Treatment Hematology/Oncolog y Treatment, [place] [address] [place] [address] Ritu, Chair 9 Hem Onc Scenery [address] [place] [address] 12/28/2023 11:17 AM EST Hospital Encounter OR GL, Operating Room, [facility] - 4th Floor [address] [place] [address] [address] Dustin Velásquez MD [address] [address] 12/28/2023 11:17 AM EST - 12/28/2023 12:27 PM EST Surgery OR [facility], Operating Room, [facility] - 4th Floor [address] [place] [address] [address] Dustin Velásquez MD [address] [place] [address] UNLISTED PROCEDURE VASCULAR SURGERY 12/30/2023 10:00 AM EST Hem/Onc Treatment Hematology/Oncolog y Treatment, [place] 200 [place] [address] Ritu, Chair 5 Hem Onc Scenery [address] [place] [address] 01/02/2024 10:00 AM EST Hem/Onc Treatment Hematology/Oncolog y Treatment, [place] 200 [facility], [place] [address] Ritu, Chair 5 Hem Onc Scenery 200 [facility] [place] [address] 01/06/2024 9:00 AM EST Hem/Onc Treatment Hematology/Oncolog y Treatment, [address], [place] [address] Ritu, Chair 3 Hem Onc Scenery 200 [facility] [place], [place] [address] 03/12/2024 11:00 AM EDT Office Visit Hematology/Oncolog y Scenery [place] [address] [place], [place] [address] Mariana Florez CRNP [address] [place] [id number] Scheduled Procedures Name Priority Associated Diagnoses Date/Ti [...] encounter Medical Devices Implanted Type Area Laboratory Technology Teacher Device Identifier Shelf Expiration Date Model / Serial / Lot Comprehensive Srs/Nexel Distal Body Implanted:Qty: 1 on 12/23/2018 by Gautam Jasso MD [place] [facility] [place]: Upper Arm 03/03/2028 [id number] / / [id number] Valve Ricky 3 Ultra 26mm - [id number] Implanted:Qty: 1 on 05/27/2022 by Jesús Weber MD at [facility] [employer] [id number] 03/17/2023 [id number] / / Port Implant W/8f Poly Cath - [id number] Implanted:Qty: 1 on 12/29/2022 by Sudhir Lovett DO at OR [facility] Right: Chest CR BARD : PERIPHERAL VASCULAR [id number] 02/12/2024 [id number] / / [id number] documented as of this encounter Advance Directives Documents on File Type Date Recorded Patient Lab Director Expl anation Power of Pier Runner 12/12/2018 8:46 AM Vipin viveros Power of Pier Runner Power of Pier Runner 12/12/2018 8:45 AM Zuleyma ferguson Power of Pier Runner Latest Code Status on File Code Status [...] the patient have Health Care Power of Pier Runner? Yes, not currently available Full Code 11/21/2018 8:53 AM 11/21/2018 2:27 PM This or bull reflects the patients wishes and were consensually agreed upon. Care Teams Finance Clerk Relationship Specialty Start Date End Date Kulwinder Byers MD [address] [address] PCP - General 06/28/03 documented as of this encounter
--- OUTSIDE RECORDS SUMMARY | 2024-01-15 19:55 | External Medical Summary | Summary of Care ---
Author Name Unknown Organization [facility] Address [address] [facility] [place] [address] Phone [phone] Care Team Providers Care Program Director Cable Television Name Role Phone Kulwinder Byers MD Primary Care Provider [phone] Encounter Details Date Type Department Care Team (Late st Contact Info) Description 12/16/2023 Telephone General Internal Medicine [facility] 200 [facility] [place] [address] Amberly Allen MD 200 [facility] [place] [address] Allergies Active Allergy Reactions Criticality Noted Date [...] 30 Tab 0 12/25/2018 Active nystatin (NYSTOP) 614729 UNIT/GM powder Apply topically to affected area [...] Telephone Encounter - Katie Craft OSA - 12/16/2023 3:20 PM EST IR - Please call to schedule Encounter for adjustment and management of vascular access device [Z45.2] - Primary Multiple myeloma not having achieved remission (HCC) [C90.00] Hypogammaglobulinemia (HCC) [D80.1] documented in this encounter Plan of Treatment Upcoming Encounters Date Type Department Care Team (Late st Contact Info) Description 12/22/2023 9:10 AM EST Laboratory Laboratory, [place] [address] [facility], [place] [address] [place], Laboratory [address] [place] [facility] [place] [place] [address] 12/23/2023 1:30 PM EST Hem/Onc Treatment Hematology/[address]cology Treatment, [address] [address] Ritu, Chair 9 Hem Onc Scenery 200 [facility] [place] [address] 12/30/2023 10:00 AM EST Hem/Onc Treatment Hematology/Oncology Treatment, [address] [address] Ritu, Chair 5 Hem Onc Scenery 200 [facility] [place] [address] 01/02/2024 10:00 AM EST Hem/Onc Treatment Hematology/Oncology Treatment, [address] [address] Ritu, Chair 5 Hem Onc Scenery [address] [place] [address] 01/06/2024 9:00 AM EST Hem/Onc Treatment Hematology/Oncology Treatment, [address] [address] Ritu, Chair 3 Hem Onc Scenery [address] [place] [address] 03/12/2024 11:00 AM EDT Office Visit Hematology/Oncology Scenery [address] [place] [address] [place] [address] Mariana Florez CRNP [address] [place], [place] [address] [address] Health Maintenance Due Date Last Done Comments [...] this encounter Medical Devices Implanted Type Area Yeast Pusher Device Identifier Shelf Expiration Date Model / Serial / Lot Comprehensive Srs/Nexel Distal Body Implanted:Qty: 1 on 12/23/2018 by Gautam Jasso MD at [place] [facility] Right: Upper Arm 03/03/2028 [id number] / / [id number] Valve Ricky 3 Ultra 26mm - [id number] Implanted:Qty: 1 on 05/27/2022 by Jesús Weber MD at [facility] [employer] [id number] 03/17/2023 [id number] / / Port Implant W/8f Poly Cath - [id number] Implanted:Qty: 1 on 12/29/2022 by Sudhir Lovett DO at OR [facility] Right: Chest CR BARD : PERIPHERAL VASCULAR [id number] 02/12/2024 [id number] / / [id number] documented as of this encounter Advance Directives Documents on File Type Date Recorded Patient Form Setter Expl anation Power of Medical Billing Service 12/12/2018 8:46 AM Vipin viveros Power of Medical Billing Service Power of Medical Billing Service 12/12/2018 8:45 AM Zuleyma ferguson Power of Medical Billing Service Latest Code Status on File Code Status [...] the patient have Health Care Power of Medical Billing Service? Yes, not currently available Full Code 11/21/2018 8:53 AM 11/21/2018 2:27 PM This or bull reflects the patients wishes and were consensually agreed upon. Care Teams Program Director Cable Television Relationship Specialty Start Date End Date Kulwinder Byers MD [address] [place] [address] PCP - General 06/28/03 documented as of this encounter
--- OUTSIDE RECORDS SUMMARY | 2024-01-15 19:56 | External Medical Summary | Summary of Care ---
Author Name Unknown Organization [facility] Address [address] [facility] [place] [address] Phone [phone] Care Team Providers Care Poacher Wringer Operator Name Role Phone Kulwinder Byers MD Primary Care Provider Encounter Details Date Type Department Care Team (Late st Contact Info) Description 12/09/2023 Telephone Hematology/Oncology Treatment, [place] [address] [place] [address] Jorge Allen MD 200 [place] [address] Allergies Active Allergy Reactions Criticality Noted Date Comments Adhesive Tape 05/28/2003 documented as of this encounter (statuses as of 12/09/2023) Medications Medication Sig Dispensed Refills Start Date [...] 30 Tab 0 12/25/2018 Active nystatin (NYSTOP) 197481 UNIT/GM powder Apply topically to affected area [...] as of this encounter (statuses as of 12/09/2023) Active Problems Problem Noted Date Diagnosed Date [...] as of this encounter (statuses as of 12/09/2023) Resolved Problems Problem Noted Date Diagnosed Date 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 Aortic valve stenosis 2021 documented as of this encounter (statuses as of 12/09/2023) Social History Tobacco Use Types Packs/Day Years [...] encounter Miscellaneous Notes * Telephone Encounter - Merrick Gross RN [...] documented in this encounter Plan of Treatment Scheduled Orders Name Type Priority Associated Diagnoses Orde r Schedule XR CHEST 1 VIEW Medical Imaging Routine Encounter for care related to vascular access port Ordered: 12/09/2023 Health Maintenance Due Date Last Done Comments [...] this encounter Medical Devices Implanted Type Area Complex Care Nurse Device Identifier Shelf Expiration Date Model / Serial / Lot Comprehensive Srs/Nexel Distal Body Implanted:Qty: 1 on 12/23/2018 by Gautam Jasso MD at OR [facility] [place] Right: Upper Arm 03/03/2028 [id number] / / [id number] Valve Ricky 3 Ultra 26mm - [id number] Implanted:Qty: 1 on 05/27/2022 by Jesús Weber MD at [facility]ARD[facility] LAB[facility] [employer] [id number] 03/17/2023 [id number] / / Port Implant W/8f Poly Cath - [id number] Implanted:Qty: 1 on 12/29/2022 by Sudhir Lovett DO at OR [facility] Right: Chest CR BARD : PERIPHERAL VASCULAR [id number] 02/12/2024 [id number] / / [id number] documented as of this encounter Visit Diagnoses Diagnosis Encounter for care related to vascular access port- Primary Fitting and adjustment of vascular catheter documented in this encounter Advance Directives Documents on File Type Date Recorded Patient Manager Document Expl anation Power of Aircraft Layout Worker 12/12/2018 8:46 AM Vipin viveros Power of Aircraft Layout Worker Power of Aircraft Layout Worker 12/12/2018 8:45 AM Zuleyma ferguson Power of Aircraft Layout Worker Latest Code Status on File Code [...] the patient have Health Care Power of Aircraft Layout Worker? Yes, not currently available Full Code 11/21/2018 8:53 AM 11/21/2018 2:27 PM This or bull reflects the patients wishes and were consensually agreed upon. Care Teams Poacher Wringer Operator Relationship Specialty Start Date End Date Kulwinder Byers MD [address] [address] PCP - General 06/28/03 documented as of this encounter
--- OUTSIDE RECORDS SUMMARY | 2024-01-15 19:56 | External Medical Summary | Summary of Care ---
Author Name Unknown Organization [facility] Address [address] [facility] [place] [address] Phone [phone] Care Team Providers Care Fine Jewelry Sales Associate Name Role Phone Kulwinder Byers MD Primary Care Provider Reason for Visit * Reason Comments Chemotherapy Cytotoxan IV Therapy IVIG * Episode Based Medications (Routine) - Authorized Specialty Diagnoses / Procedures Referred By Contac t Referred To Contact Diagnoses Hypogammaglobulinemia (HCC) Multiple myeloma not having achieved remission (HCC) Procedures VT INJ IVIG PRIVIGEN 500 MG Jorge Allen MD [address] [place] [address] Anc Hem/Onc Scenegarret Chaney DEPT CLOSED - 09/27/[address] [place] [phone] Referral ID Status Reason Start Date Expiration Date V isits Requested Visits Authorized [id number] Authorized 10/04/2023 11/13/[phone] Encounter Details Date Type Department Care Team (Latest Contact Info) Description 12/09/2023 11:45 AM EST Hem/Onc Treatment Hematology/Oncolo gy Treatment, [place] [address] [place] [address] Ritu, Chair 5 Hem Onc Scenery [address] [place] [address] Hypogammaglobulinemia (HCC)*; Multiple myeloma not having achieved remission (HCC); Encounter for adjustment and management of vascular access device; Encounter for antineoplastic chemotherapy Allergies Active Allergy Reactions Criticality Noted Date Comments Adhesive Tape 05/28/2003 documented as of this encounter (statuses as of 12/12/2023) Medications Medication Sig Dispensed Refills Start Date [...] 30 Tab 0 12/25/2018 Active nystatin (NYSTOP) 055577 UNIT/GM powder Apply topically to affected area [...] as of this encounter (statuses as of 12/12/2023) Active Problems Problem Noted Date Diagnosed Date [...] as of this encounter (statuses as of 12/12/2023) Resolved Problems Problem Noted Date Diagnosed Date 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 Pt port accessed by this RN. Pt c/o of minor burning at port site, readjusted with assistance from Sabine Rico,GABRIELLE, port flushing well with no symptoms. Pt [...] 9:45 AM EST Hem/Onc Treatment Hematology/[address]cology [address], [address] [address] Ritu, Chair [address] [place] [address] 12/30/2023 10:00 AM EST Hem/Onc Treatment Hematology/Oncology [address], [address] [address] Ritu, Chair 5 Hem On[address] [place] [address] 01/02/2024 10:00 AM EST Hem/Onc Treatment Hematology/Oncology [address], [address] [address] Ritu, Chair 5 Hem Onc [address] [place] [address] 01/06/2024 9:00 AM EST Hem/Onc Treatment Hematology/Oncology Treatment, [place] [address] [place] [address] Ritu, Chair 3 Hem Onc [facility] 200 [facility] [place] [address] 03/12/2024 11:00 AM EDT Office Visit Hematology/Oncology [facility] [place] [address] [place] [address] Mariana Florez CRNP 400 [facility] [place] [address] Health Maintenance Due Date Last Done Comments [...] this encounter Medical Devices Implanted Type Area Cub Reporter Device Identifier Shelf Expiration Date Model / Serial / Lot Comprehensive Srs/Nexel Distal Body Implanted:Qty: 1 on 12/23/2018 by Gautam Jasso MD at [place] [facility] [place] [facility] Right: Upper Arm 03/03/2028 [id number] / / [id number] Valve Ricky 3 Ultra 26mm - [id number] Implanted:Qty: 1 on 05/27/2022 by Jesús Weber MD at [facility] [place] [employer] [id number] 03/17/2023 [id number] / / Port Implant W/8f Poly Cath - [id number] Implanted:Qty: 1 on 12/29/2022 by Sudhir Lovett DO at OR [facility] Right: Chest CR BARD : PERIPHERAL VASCULAR [id number] 02/12/2024 [id number] / / [id number] documented as of this encounter Visit Diagnoses [...] 2.2 mL of Sterile Water for Injection, LONG TERM, into the vial, directing the diluent stream [...] on File Type Date Recorded Patient Senior Applications Architect Expl anation Power of Mess Attendant Crew 12/12/2018 8:46 AM Vipin viveros Power of Mess Attendant Crew Power of Mess Attendant Crew 12/12/2018 8:45 AM Zuleyma ferguson Power of Mess Attendant Crew Latest Code Status on File Code Status [...] the patient have Health Care Power of Mess Attendant Crew? Yes, not currently available Full Code 11/21/2018 8:53 AM 11/21/2018 2:27 PM This or bull reflects the patients wishes and were consensually agreed upon. Care Teams Fine Jewelry Sales Associate Relationship Specialty Start Date End Date Kulwinder Byers MD [address] [place] [address] PCP - General 06/28/03 documented as of this encounter
--- OUTSIDE RECORDS SUMMARY | 2024-01-15 19:56 | External Medical Summary | Summary of Care ---
Author Name Unknown Organization [facility] Address [address] [facility] [place] [address] Phone [phone] Care Team Providers Care Bridge Worker Apprentice Name Role Phone Kulwinder Byers MD Primary Care Provider [phone] Reason for Visit * Reason Onset Date Comments Medication Refill 12/05/2023 Encounter Details Date Type Department Care Team (Late st Contact Info) Description 12/05/2023 Refill Hematology/Oncology [facility] 200 [facility] [place] [id number] Mariana Florez CRNP 400 [facility] [place] [address] Multiple myeloma not having achieved remission (HCC) Allergies Active Allergy Reactions Criticality Noted Date Comments Adhesive Tape 05/28/2003 documented as of this encounter (statuses as of 12/05/2023) Medications Medication Sig Dispensed Refills Start Date [...] 30 Tab 0 12/25/2018 Active nystatin (NYSTOP) 469820 UNIT/GM powder Apply topically to affected area [...] Pain, Breakthrough. 60 Tablet 0 12/05/2023 Active oxyCODONE HCl 5 MG Oral Tablet (Oxy IR)Indications:Mul tiple myeloma not having achieved remission (HCC) Take 1 Tablet by mouth every 6 hours as needed for Pain, Breakthrough. 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 * Telephone Encounter - Love Quick RN - 12/05/2023 4:16 PM ESTPending Prescriptions: Disp Refills oxyCODONE HCl 5 MG Oral Tablet (Oxy IR) 60 Tab*0 Sig: Take 1 Tablet by mouth every 6 hours as needed for Pain, Breakthrough. * Telephone Encounter - Love Quick RN - 12/05/2023 4:15 PM EST PDMP reviewed. Oxycodone filled 11/04/23 for 60 tabs. No concerns. * Telephone Encounter - Ila Burleson CPhT - 12/05/2023 9:17 AM EST Patient is up to date for office visits. Pending Prescriptions: Disp Refills oxyCODONE HCl 5 MG Oral Tablet (Oxy IR) 60 Tab*0 Sig: Take 1 Tablet by mouth every 6 hours as needed for Pain, Breakthrough. Last Visit: 09/02/2023 (in office), Visit date not found (telemedicine) Next Visit: 12/09/2023 If no future appointments scheduled, and last appointment is greater than a year ago, please schedule patient for a follow-up appointment Last date the medication was ordered: 11/04/2023 Pharmacy: [id number] [address] [facility] Is this request for a controlled substance?Yes, and Urine Drug Screen was NOT completed Urine Drug Screen:No results found. However, due to the size of the patient record, not all encounters were searched. Please check Results Review for a complete set of results. Patient Phone Numbers Labs: Lab Results Component Value Date/Time CREAT 0.8 12/01/2023 03:00 PM CREAT 0.9 12/11/2020 09:50 AM POTASSIUM 4.3 12/01/2023 03:00 PM POTASSIUM 3.9 12/11/2020 09:50 AM TSH 1.13 10/08/2022 11:49 AM TSH 1.78 06/13/2020 03:25 PM LDLCALC 49 10/19/2023 03:25 PM LDLDIRECT 56 06/13/2020 03:25 PM ALT 14 12/01/2023 03:00 PM ALT 13 12/11/2020 09:50 AM HGBA1C 6.4 (H) 10/19/2023 03:25 PM HGBA1C 6.3 (H) 12/11/2020 09:50 AM documented in this encounter Plan of Treatment Upcoming Encounters Date Type Department Care Team (Late st Contact Info) Description 12/09/2023 11:30 AM EST Office Visit Hematology/Oncology [facility] [place] 200 [facility] [place] [address] Jorge Allen MD 200 [facility] [place] [address] 12/09/2023 11:45 AM EST Hem/Onc Treatment Hematology/Oncology Treatment, [place] [address] [place] [address] Ritu, Chair 5 Hem Onc [facility] 200 [facility] [place] [address] Health Maintenance Due Date Last Done Comments [...] 10/19/2023, 11/15, 06/13/2020, Additional history exists GFR 12/01/2024 12/01/2023, 11/14, 11/11/2023, Additional history exists Pneumococcal Vaccine: 65+ Years Completed 02/18/2017, 01/12/2010 GARDASIL-HPV IMMUNIZATION SERIES Aged Out No longer eligible based on patient's age to complete this topic MENINGOCOCCAL (MENACTRA/MENVEO) Aged Out No longer eligible based on patient's age to complete this topic documented as of this encounter Medical Devices Implanted Type Area Avionics Shop Supervisor Device Identifier Shelf Expiration Date Model / Serial / Lot Comprehensive Srs/Nexel Distal Body Implanted:Qty: 1 on 12/23/2018 by Gautam Jasso MD [place] [facility] Right: Upper Arm 03/03/2028 [id number] / / [id number] Valve Ricky 3 Ultra 26mm - [id number] Implanted:Qty: 1 on 05/27/2022 by Jesús Weber MD at [facility] [employer] [id number] 03/17/2023 [id number] / / Port Implant W/8f Poly Cath - [id number] Implanted:Qty: 1 on 12/29/2022 by Sudhir Lovett DO at OR [facility] Right: Chest CR BARD : PERIPHERAL VASCULAR [id number] 02/12/2024 [id number] / / [id number] documented as of this encounter Visit Diagnoses Diagnosis Multiple myeloma not having achieved remission (HCC) Multiple myeloma, without mention of having achieved remission documented in this encounter Advance Directives Documents on File Type Date Recorded Patient Buck Swamper Expl anation Power of Sales And Training Specialist 12/12/2018 8:46 AM Vipin viveros Power of Sales And Training Specialist Power of Sales And Training Specialist 12/12/2018 8:45 AM Zuleyma ferguson Power of Sales And Training Specialist Latest Code Status on File Code [...] the patient have Health Care Power of Sales And Training Specialist? Yes, not currently available Full Code 11/21/2018 8:53 AM 11/21/2018 2:27 PM This or bull reflects the patients wishes and were consensually agreed upon. Care Teams Bridge Worker Apprentice Relationship Specialty Start Date End Date Kulwinder Byers MD [address] [place] [address] PCP - General 06/28/03 documented as of this encounter
--- OUTSIDE RECORDS SUMMARY | 2024-01-15 19:56 | External Medical Summary ---
Author Name Unknown Address Unknown Organization K01:LAB[facility]ORY [facility] - [address] [place] [address] Laboratory Report Ordering Provider Test Date Status WOOD CANTU 12/15/2023 15:30:00 Final Observation Date Value Abnormality Reference (Units ) Status Phosphate 12/15/2023 15:30:00 2.4 Below low normal 2.5 -4.8 (mg/dL) Final Performing Location LABORATORY [facility] - [address] [place] [address]
--- OUTSIDE RECORDS SUMMARY | 2024-01-15 19:56 | External Medical Summary ---
Author Name Unknown Address Unknown Organization K01:LAB[place]ATORY [facility] [place] [address] [facility] [place] [address] Laboratory Report Ordering Provider Test Date Status WOOD CANTU 12/08/2023 15:00:00 Final Observation Date Value Abnormality Reference (Units ) Status SYNC LEUKOCYTES IN BLOOD BY AUTOMATED COUNT 12/08/2023 15:00:00 2.31 Below low normal 4.00-10.80 (K/uL) Final Segs 12/08/2023 15:00:00 68.0 40.0-75.0 (%) Final Lymphs % 12/08/2023 15:00:00 8.2 Below low normal 18.0-42.0 (%) Final Monos 12/08/2023 15:00:00 19.5 Above high normal 1.0-11.0 (%) Final Eosinophils 12/08/2023 15:00:00 3.5 0.0-6.0 (%) Final Basos 12/08/2023 15:00:00 0.4 0.0-2.0 (%) Final Immature Granulocyte, Percent 12/08/2023 15:00:00 0.4 0.0-2.0 (%) Final Absolute Segs 12/08/2023 15:00:00 1.57 Below low normal 1.80-7.70 (K/uL) Final Lymphs, absolute 12/08/2023 15:00:00 0.19 Below low normal 1.00-4.80 (K/ul) Final Monos, Abs 12/08/2023 15:00:00 0.45 0.00-1.10 (K/uL) Final Eos, Abs 12/08/2023 15:00:00 0.08 0.00-0.70 (K/uL) Final Basos, Abs 12/08/2023 15:00:00 0.01 0.00-0.20 (K/uL) Final Immature Granulocytes, Number 12/08/2023 15:00:00 0.01 0.00-0.20 (K/uL) Final Performing Location LAB[facility]ATORY [facility] [place] - [facility] [address]. [facility] [address]
--- OUTSIDE RECORDS SUMMARY | 2024-01-15 19:56 | External Medical Summary ---
Author Name Unknown Address Unknown Organization K01:LABORATORY [facility] [place] - [facility] [address] [place] [address] Laboratory Report Ordering Provider Test Date Status WOOD CANTU 12/15/2023 15:30:00 Final Observation Date Value Abnormality Reference (Units ) Status [place] light chains, Free, Serum 12/15/2023 15:30:00 13.29 3.30-19.40 (mg/L) Final L[place] light chains, free, Serum 12/15/2023 15:30:00 1.31 Below low normal 5.71-26.30 (mg/L) Final KAPPA LAMBDA FLC RATIO 12/15/2023 15:30:00 10.15 Above high normal 0.26-1.65 Final Performing Location LABORATORY [facility] [place] - [facility] [address] [place] [address]
--- OUTSIDE RECORDS SUMMARY | 2024-01-15 19:56 | External Medical Summary ---
Author Name Unknown Address Unknown Organization K01:[place]ORY [facility] [place] [address] [facility] [place] [address] Laboratory Report Ordering Provider Test Date Status WOOD CANTU 12/01/2023 15:00:00 Final Observation Date Value Abnormality Reference (Units ) Status SYNC LEUKOCYTES IN BLOOD BY AUTOMATED COUNT 12/01/2023 15:00:00 2.90 Below low normal 4.00-10.80 (K/uL) Final Segs 12/01/2023 15:00:00 72.1 40.0-75.0 (%) Final Lymphs % 12/01/2023 15:00:00 5.2 Below low normal 18.0-42.0 (%) Final Monos 12/01/2023 15:00:00 18.3 Above high normal 1.0-11.0 (%) Final Eosinophils 12/01/2023 15:00:00 3.4 0.0-6.0 (%) Final Basos 12/01/2023 15:00:00 0.3 0.0-2.0 (%) Final Immature Granulocyte, Percent 12/01/2023 15:00:00 0.7 0.0-2.0 (%) Final Absolute Segs 12/01/2023 15:00:00 2.09 1.80-7.70 (K/uL) Final Lymphs, absolute 12/01/2023 15:00:00 0.15 Below low normal 1.00-4.80 (K/ul) Final Monos, Abs 12/01/2023 15:00:00 0.53 0.00-1.10 (K/uL) Final Eos, Abs 12/01/2023 15:00:00 0.10 0.00-0.70 (K/uL) Final Basos, Abs 12/01/2023 15:00:00 0.01 0.00-0.20 (K/uL) Final Immature Granulocytes, Number 12/01/2023 15:00:00 0.02 0.00-0.20 (K/uL) Final Performing Location LAB[facility]ATORY [facility] [place] - [facility] [address]. [facility] [address]
--- OUTSIDE RECORDS SUMMARY | 2024-01-15 19:56 | External Medical Summary | Summary of Care ---
Author Name Unknown Organization [facility] Address [address] [facility] [place] [address] Phone [phone] Care Team Providers Care Roving Marker Name Role Phone Kulwinder Byers MD Primary Care Provider [phone] Reason for Referral * Precert (Within 10 days (routine)) - Authorized Specialty Diagnoses / Procedures Referred By Contac t Referred To Contact Radiology Diagnoses Multiple myeloma not having achieved remission (HCC) Hypogammaglobulinemia (HCC) Encounter for adjustment and management of vascular access device Procedures IR VENOUS ACCESS [facility] Jorge Allen MD [address] [place] [id number] Referral ID Status Reason Start Date Expiration Date V isits Requested Visits Authorized [id number] Authorized 12/15/2023 999 999 Reason for Visit * Reason Onset Date Comments Referral 12/09/2023 IR Encounter Details Date Type Department Care Team (Late st Contact Info) Description 12/09/2023 Telephone Hematology/Oncology Treatment, [place] [address] [facility] [address] Jorge Allen MD [address] [place] [address] Referral (IR) Allergies Active Allergy Reactions Criticality [...] 30 Tab 0 12/25/2018 Active nystatin (NYSTOP) 911256 UNIT/GM powder Apply topically to affected area [...] 9:45 AM EST Hem/Onc Treatment Hematology/Oncology Treatment, [place] [address] [facility] [place] [address] Ritu, Chair 1 Hem Onc Scenery 200 [facility] [place] [address] 12/30/2023 10:00 AM EST Hem/Onc Treatment Hematology/Oncology Treatment, [place] 200 [place] [address] Ritu, Chair 5 Hem Onc Scenery [address] [place], [place] [address] 01/02/2024 10:00 AM EST Hem/Onc Treatment Hematology/Oncology Treatment, [place] 200 [place] [address] Ritu, Chair 5 Hem Onc Scenery 200 [facility] [place], [place] [address] 01/06/2024 9:00 AM EST Hem/Onc Treatment Hematology/Oncology Treatment, [place] 200 [facility], [place] [address] Ritu, Chair 3 Hem Onc Scenery 200 [facility] [place], [place] [address] 03/12/2024 11:00 AM EDT Office Visit Hematology/Oncology [facility] [place] 200 [facility] [place], [place] [address] Mariana Florez CRNP [address] [place], [place] [address] [address] Scheduled Orders Name Type Priority Associated Diagnoses [...] this encounter Medical Devices Implanted Type Area Wind Turbine Technician Device Identifier Shelf Expiration Date Model / Serial / Lot Comprehensive Srs/Nexel Distal Body Implanted:Qty: 1 on 12/23/2018 by Gautam Jasso MD at [place] [facility] [place] Right: Upper Arm 03/03/2028 [id number] / / [id number] Valve Ricky 3 Ultra 26mm - [id number] Implanted:Qty: 1 on 05/27/2022 by Jesús Weber MD at CARDIAC LABS [facility] [place] [employer] [id number] 03/17/2023 [id number] / / Port Implant W/8f Poly Cath - [id number] Implanted:Qty: 1 on 12/29/2022 by Sudhir Lovett DO at OR [facility] Right: Chest CR BARD : PERIPHERAL VASCULAR [id number] 02/12/2024 [id number] / / [id number] documented as of this encounter Procedures Procedure [...] Documents on File Type Date Recorded Patient Church Warden Expl anation Power of Air Route Controller 12/12/2018 8:46 AM Vipin viveros Power of Air Route Controller Power of Air Route Controller 12/12/2018 8:45 AM Zuleyma ferguson Power of Air Route Controller Latest Code Status on File Code Status [...] the patient have Health Care Power of Air Route Controller? Yes, not currently available Full Code 11/21/2018 8:53 AM 11/21/2018 2:27 PM This or bull reflects the patients wishes and were consensually agreed upon. Care Teams Roving Marker Relationship Specialty Start Date End Date Kulwinder Byers MD [address] [address] PCP - General 06/28/03 documented as of this encounter
--- OUTSIDE RECORDS SUMMARY | 2024-01-15 19:56 | External Medical Summary | Summary of Care ---
Author Name Unknown Organization [facility] Address [address] [facility] [address] Phone [phone] Care Team Providers Care Natural Gas Plant Technician Name Role Phone Kulwinder Byers MD Primary Care Provider Reason for Visit * Reason Onset Date Comments Medication Refill 12/05/2023 Encounter Details Date Type Department Care Team (Late st Contact Info) Description 12/05/2023 Refill Hematology/Oncology [facility] 200 [facility] [place] [id number] Mariana Florez CRNP [address] [facility] [place] [address] Multiple myeloma not having achieved [...] 30 Tab 0 12/25/2018 Active nystatin (NYSTOP) 987904 UNIT/GM powder Apply topically to affected area [...] 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 12/21/2018 DARERLL (obstructive sleep apnea) 12/21/2018 DM (diabetes mellitus), [...] ordered: 11/04/2023 Pharmacy: [id number] [address] [facility] Is this request for a controlled [...] 12/09/2023 11:30 AM EST Office Visit Hematology/Oncology [facility] [place] 200 [facility] [place] [address] Jorge Allen MD 200 [facility] [place] [address] 12/09/2023 11:45 AM EST Hem/Onc Treatment Hematology/Oncology Treatment, [place] [address] [place] [address] Ritu, Chair 5 Hem Onc [facility] 200 [facility] [place] [address] Health Maintenance Due Date Last Done Comments [...] this encounter Medical Devices Implanted Type Area Crap Game Box Person Device Identifier Shelf Expiration Date Model / Serial / Lot Comprehensive Srs/Nexel Distal Body Implanted:Qty: 1 on 12/23/2018 by Gautam Jasso MD at [place] [facility] [place] Right: Upper Arm 03/03/2028 [id number] / / [id number] Valve Ricky 3 Ultra 26mm - [id number] Implanted:Qty: 1 on 05/27/2022 by Jesús Weber MD at CARDIAC LABS [facility] [employer] [id number] 03/17/2023 [id number] / / Port Implant W/8f Poly Cath - [id number] Implanted:Qty: 1 on 12/29/2022 by Sudhir Lovett DO at OR [facility] Right: Chest CR BARD : PERIPHERAL VASCULAR [id number] 02/12/2024 [id number] / / [id number] documented as of this encounter Visit Diagnoses Diagnosis Multiple myeloma not having achieved remission (HCC) Multiple myeloma, without mention of having achieved remission documented in this encounter Advance Directives Documents on File Type Date Recorded Patient Superintendent Automotive Expl anation Power of Drift Miner 12/12/2018 8:46 AM Vipin viveros Power of Drift Miner Power of Drift Miner 12/12/2018 8:45 AM Zuleyma ferguson Power of Drift Miner Latest Code Status on File Code Status [...] the patient have Health Care Power of Drift Miner? Yes, not currently available Full Code 11/21/2018 8:53 AM 11/21/2018 2:27 PM This or bull reflects the patients wishes and were consensually agreed upon. Care Teams Natural Gas Plant Technician Relationship Specialty Start Date End Date Kulwinder Byers MD [address] [place] [address] PCP - General 06/28/03 documented as of this encounter
--- OUTSIDE RECORDS SUMMARY | 2024-01-15 19:56 | External Medical Summary | Summary of Care ---
Author Name Unknown Organization [facility] Address [address] [facility] [place] [address] Phone [phone] Care Team Providers Care Blackjack Dealer Name Role Phone Kulwinder Byers MD Primary Care Provider [phone] Reason for Visit * Reason Onset Date Comments Referral 12/09/2023 IR Encounter Details Date Type Department Care Team (Late st Contact Info) Description 12/09/2023 Telephone Hematology/Oncology Treatment, [place] 200 [place] [address] Jorge Allen MD 200 [place] [address] Referral (IR) Allergies Active Allergy Reactions Criticality [...] 30 Tab 0 12/25/2018 Active nystatin (NYSTOP) 985373 UNIT/GM powder Apply topically to affected area [...] 9:45 AM EST Hem/Onc Treatment Hematology[address], [address] [address] Ritu, Chair 1 Hem Onc Scenery 200 [facility] [place] [address] 12/30/2023 10:00 AM EST Hem/Onc Treatment Hematology/Oncology [address], [address] [address] Ritu, Chair 5 Hem Onc Scenery 200 [facility] [place] [address] 01/02/2024 10:00 AM EST Hem/Onc Treatment Hematology/Oncology Treatment, [address], [place] [address] Ritu, Chair 5 Hem Onc Scenery 200 [facility] [place] [address] 01/06/2024 9:00 AM EST Hem/Onc Treatment Hematology/Oncology Treatment, [address], [place] [address] Ritu, Chair 3 Hem Onc Scenery 200 [facility] [place] [address] 03/12/2024 11:00 AM EDT Office Visit Hematology/Oncology [facility] Ritu [address] [place] [address] Mariana Florez CRNP [address] [place] [address] Health Maintenance Due Date Last Done Comments [...] this encounter Medical Devices Implanted Type Area Dog Or Animal Sitter Device Identifier Shelf Expiration Date Model / Serial / Lot Comprehensive Srs/Nexel Distal Body Implanted:Qty: 1 on 12/23/2018 by Gautam Jasso MD at [place] [facility] [place] Right: Upper Arm 03/03/2028 [id number] / / [id number] Valve Ricky 3 Ultra 26mm - [id number] Implanted:Qty: 1 on 05/27/2022 by Jesús Weber MD at [facility] [place] [employer] [id number] 03/17/2023 [id number] / / Port Implant W/8f Poly Cath - [id number] Implanted:Qty: 1 on 12/29/2022 by Sudhir Lovett DO at OR [facility] Right: Chest CR BARD : PERIPHERAL VASCULAR [id number] 02/12/2024 [id number] / / [id number] documented as of this encounter Procedures Procedure [...] Documents on File Type Date Recorded Patient Steel Molder Expl anation Power of Compliance Engineer Products 12/12/2018 8:46 AM Vipin viveros Power of Compliance Engineer Products Power of Compliance Engineer Products 12/12/2018 8:45 AM Finan cial Power of Compliance Engineer Products Latest Code Status on File Code Status [...] the patient have Health Care Power of Compliance Engineer Products? Yes, not currently available Full Code 11/21/2018 8:53 AM 11/21/2018 2:27 PM This or bull reflects the patients wishes and were consensually agreed upon. Care Teams Blackjack Dealer Relationship Specialty Start Date End Date Kulwinder Byers MD [address] [address] PCP - General 06/28/03 documented as of this encounter
--- OUTSIDE RECORDS SUMMARY | 2024-01-15 19:56 | External Medical Summary ---
Author Name Unknown Address Unknown Organization K01:[place] [facility] [place] [address] [place] [address] Laboratory Report Ordering Provider Test Date Status WOOD CANTU 12/15/2023 15:30:00 Final Observation Date Value Abnormality Reference (Units ) Status IgG 12/15/2023 15:30:00 [phone] ( mg/dL) Final IgA 12/15/2023 15:30:00 391 70-400 (mg /dL) Final IgM 12/15/2023 15:30:00 10 Below low normal 40- 230 (mg/dL) Final Performing Location LABORATORY C - [address] [place] [address]
--- OUTSIDE RECORDS SUMMARY | 2024-01-15 19:56 | External Medical Summary ---
Author Name Unknown Address Unknown Organization K01:[place] [facility] [place] [address] [facility] [place] [address] Laboratory Report Ordering Provider Test Date Status WOOD CANTU 12/15/2023 15:30:00 Final Observation Date Value Abnormality Reference (Units ) Status BUN 12/15/2023 15:30:00 20 6-20 (mg/dL) Final Creatinine 12/15/2023 15:30:00 0.8 0.5-1.0 (mg/dL) Final Glomerular filtration rate/1.73 sq M.predicted [Volume Rate/Area] in Serum, Plasma or Blood by Creatinine-based formula (CKD-EPI) 12/15/2023 15:30:00 71 >=60 (mL/min) Final eGFR is calculated based on the CKD-EPI 2020 equation SODIUM 12/15/2023 15:30:00 140 135-146 (m mol/L) Final Potassium 12/15/2023 15:30:00 4.3 3.5-5.1 (m mol/L) Final Cl 12/15/2023 15:30:00 105 98-107 (mm ol/L) Final CO2 12/15/2023 15:30:00 19 Below low normal 22- 32 (mmol/L) Final Anion gap 12/15/2023 15:30:00 16 Above high normal 7- 15 (mmol/L) Final Glucose 12/15/2023 15:30:00 253 Above high normal 70 -120 (mg/dL) Final Albumin 12/15/2023 15:30:00 3.7 Below low normal 3.8 -5.0 (g/dL) Final AST (Aspartate aminotransferase) 12/15/2023 15:30:00 18 10-35 (U/L) Fin al Alk Phos 12/15/2023 15:30:00 55 35-130 (U/ L) Final Bilirubin, Total 12/15/2023 15:30:00 0.4 <=1 .2 (mg/dL) Final Calcium 12/15/2023 15:30:00 8.9 8.4-10.2 ( mg/dL) Final Protein 12/15/2023 15:30:00 6.4 6.0-8.3 (g /dL) Final ALT (Alanine aminotransferase) 12/15/2023 15:30:00 10 10-35 (U/L) Abisai mcconnell Performing Location [place] [facility] [place] [address] [facility] [address]
--- OUTSIDE RECORDS SUMMARY | 2024-01-15 19:56 | External Medical Summary ---
Author Name Unknown Address Unknown Organization K01:LABORATORY [place] [address] [facility] [address] [place] [address] Laboratory Report Ordering Provider Test Date Status WOOD CANTU 12/15/2023 15:30:00 Final Observation Date Value Abnormality Reference (Units ) Status WBC, Total 12/15/2023 15:30:00 2.38 Below low normal 4.00-10.80 (K/uL) Final RBC 12/15/2023 15:30:00 3.87 3.85-5.15 (M/uL) Final Hemoglobin 12/15/2023 15:30:00 12.3 12.0-15.3 (g/dL) Final HCT 12/15/2023 15:30:00 38.3 36.0-45.2 (%) Final MCV 12/15/2023 15:30:00 99.0 81.5-97.5 (fL) Final MCH 12/15/2023 15:30:00 31.8 27.0-34.0 (pg) Final MCHC 12/15/2023 15:30:00 32.1 32.0-36.0 (g/dL) Final RDW 12/15/2023 15:30:00 16.9 11.5-15.5 (%) Final Platelets 12/15/2023 15:30:00 123 Below low normal 140-400 (K/uL) Final MPV 12/15/2023 15:30:00 12.0 6.6-11.1 (fL) Final Nucleated erythrocytes/100 leukocytes [Ratio] in Blood by Automated count 12/15/2023 15:30:00 1 Above high normal <=0 (/100 WBCs) Final Performing Location LAB[facility]ORY [facility] [place] [facility] [address] [place] [address]
--- OUTSIDE RECORDS SUMMARY | 2024-01-15 19:56 | External Medical Summary ---
Author Name Unknown Address Unknown Organization K01[place] [facility] [place] 100 [facility] [address] [place] [address] Laboratory Report Ordering Provider Test Date Status WOOD CANTU 12/08/2023 15:00:00 Final Observation Date Value Abnormality Reference (Units ) Status BUN 12/08/2023 15:00:00 16 6-20 (mg/dL) Final Creatinine 12/08/2023 15:00:00 0.8 0.5-1.0 (mg/dL) Final Glomerular filtration rate/1.73 sq M.predicted [Volume Rate/Area] in Serum, Plasma or Blood by Creatinine-based formula (CKD-EPI) 12/08/2023 15:00:00 76 >=60 (mL/min) Final eGFR is calculated based on the CKD-EPI 2020 equation SODIUM 12/08/2023 15:00:00 142 135-146 (m mol/L) Final Potassium 12/08/2023 15:00:00 4.2 3.5-5.1 (m mol/L) Final Cl 12/08/2023 15:00:00 106 98-107 (mm ol/L) Final CO2 12/08/2023 15:00:00 24 22-32 (mmo l/L) Final Anion gap 12/08/2023 15:00:00 12 7-15 (mmol /L) Final Glucose 12/08/2023 15:00:00 131 Above high normal 70 -120 (mg/dL) Final Albumin 12/08/2023 15:00:00 3.8 3.8-5.0 (g /dL) Final AST (Aspartate aminotransferase) 12/08/2023 15:00:00 20 10-35 (U/L) Fin al Alk Phos 12/08/2023 15:00:00 58 35-130 (U/ L) Final Bilirubin, Total 12/08/2023 15:00:00 0.2 <=1 .2 (mg/dL) Final Calcium 12/08/2023 15:00:00 9.0 8.4-10.2 ( mg/dL) Final Protein 12/08/2023 15:00:00 5.8 Below low normal 6.0 -8.3 (g/dL) Final ALT (Alanine aminotransferase) 12/08/2023 15:00:00 12 10-35 (U/L) Abisai mcconnell Performing [place] [facility] [place] [address] [facility] [address]
--- OUTSIDE RECORDS SUMMARY | 2024-01-15 19:56 | External Medical Summary ---
Author Name Unknown Address Unknown Organization K01:[place] [facility] [place] 100 [facility] [place] [address] Laboratory Report Ordering Provider Test Date Status WOOD CANTU 12/15/2023 15:30:00 Final Observation Date Value Abnormality Reference (Units) Status PARAPROTEIN NORMAL/ABNORMAL 15:30:00 Abnormal Abnormal Normal Final Protein 15:30:00 6.4 6.0-8.3 (g/dL) Final Albumin/Protein.tota l [Pure mass fraction] in Serum or Plasma by Electrophoresis 15:30:00 3.06 Below low normal 3.30-4.40 (g/dL) Final Alpha 1 globulin/Protein.tot al [Pure mass fraction] in Serum or Plasma by Electrophoresis 15:30:00 0.25 0.10-0.30 (g/dL) Final Alpha 2 globulin/Protein.tot al [Pure mass fraction] in Serum or Plasma by Electrophoresis 15:30:00 1.00 0.60-1.00 (g/dL) Final Beta globulin/Protein.tot al [Pure mass fraction] in Serum or Plasma by Electrophoresis 15:30:00 1.21 0.80-1.30 (g/dL) Final Gamma globulin/Protein.tot al [Pure mass fraction] in Serum or Plasma by Electrophoresis 15:30:00 0.88 0.70-1.70 (g/dL) Final Protein Fractions [Interpretation] in Serum or Plasma by Electrophoresis Narrative 15:30:00 Abnormal, 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 Unable to reliably identify or accurately quantify the paraprotein due to its migration in the beta region. Please order serum free light chains, beta-2 Final Protein Fractions [Interpretation] in Serum or Plasma by Electrophoresis Narrative 02/01/202 4 15:30:00 microglobulin, and the quantitative immunoglobulins for disease monitoring. Final Performing Location [place] [facility] [place] Formerly named [facility] [address]. [facility] [address]
--- OUTSIDE RECORDS SUMMARY | 2024-01-15 19:56 | External Medical Summary | Summary of Care ---
Author Name Unknown Organization [facility] Address [address] [facility] [place] [address] Phone [phone] Care Team Providers Care Dog Licenser Name Role Phone Kulwinder Byers MD Primary Care Provider [phone] Reason for Visit * Reason Comments Outpatient Testing Encounter Details Date Type Department Care Team (Late st Contact Info) Description 12/08/2023 3:50 PM EST Laboratory Laboratory, [place] [address] [place] [id number] [place], [facility] [address] [place], [place] [phone] Arrived Allergies Active Allergy Reactions Criticality Noted Date Comments Adhesive Tape 05/28/2003 documented as of this encounter (statuses as of 12/08/2023) Medications Medication Sig Dispensed Refills Start Date [...] 30 Tab 0 12/25/2018 Active nystatin (NYSTOP) 730625 UNIT/GM powder Apply topically to affected area [...] as of this encounter (statuses as of 12/08/2023) Active Problems Problem Noted Date Diagnosed Date [...] as of this encounter (statuses as of 12/08/2023) Resolved Problems Problem Noted Date Diagnosed Date 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 Aortic valve stenosis 2021 documented as of this encounter (statuses as of 12/08/2023) Social History Tobacco Use Types Packs/Day Years [...] 12/09/2023 11:30 AM EST Office Visit Hematology/Oncology [place] [address] [place] [address] [address] Jorge Allen MD [address] [place] [address] 12/09/2023 11:45 AM EST Hem/Onc Treatment Hematology/Oncology Treatment, [place] [address] [place] [id number] Ritu, Chair 5 Hem Onc [place] [address] [place] [address] Health Maintenance Due Date Last Done Comments [...] this encounter Medical Devices Implanted Type Area Buffing Wheel Former Machine Device Identifier Shelf Expiration Date Model / Serial / Lot Comprehensive Srs/Nexel Distal Body Implanted:Qty: 1 on 12/23/2018 by Gautam Jasso MD at OR [facility] Right: Upper Arm 03/03/2028 [id number] / / [id number] Valve Ricky 3 Ultra 26mm - [id number] Implanted:Qty: 1 on 05/27/2022 by Jesús Weber MD at CARDIAC LABS [facility] [employer] [id number] 03/17/2023 [id number] / / Port Implant W/8f Poly Cath - [id number] Implanted:Qty: 1 on 12/29/2022 by Sudhir Lovett, at OR [facility] Right: Chest CR BARD : PERIPHERAL VASCULAR [id number] 02/12/2024 [id number] / / [id number] documented as of this encounter Advance Directives Documents on File Type Date Recorded Patient General Warehouse Worker Expl anation Power of Radiology Administrator 12/12/2018 8:46 AM Vipin viveros Power of Radiology Administrator Power of Radiology Administrator 12/12/2018 8:45 AM Zuleyma ferguson Power of Radiology Administrator Latest Code Status on File Code Status [...] the patient have Health Care Power of Radiology Administrator? Yes, not currently available Full Code 11/21/2018 8:53 AM 11/21/2018 2:27 PM This or bull reflects the patients wishes and were consensually agreed upon. Care Teams Dog Licenser Relationship Specialty Start Date End Date Kulwinder Byers MD [address] [place] [address] PCP - General 06/28/03 documented as of this encounter
--- OUTSIDE RECORDS SUMMARY | 2024-01-15 19:56 | External Medical Summary | Summary of Care ---
Author Name Unknown Organization [facility] [address] [facility] [address] Phone [phone] Care Team Providers Care Airport Screener Name Role Phone Kulwinder Byers MD Primary Care Provider [phone] Reason for Visit * Reason Comments Outpatient Testing Encounter Details Date Type Department Care Team (Late st Contact Info) Description 12/01/2023 1:00 PM EST Laboratory Laboratory, [address] [address] St, Specimen Drop Off [address] [address] Multiple myeloma not having achieved remission (HCC) Allergies Active Allergy Reactions Criticality Noted Date Comments Adhesive Tape 05/28/2003 documented as of this encounter (statuses as of 12/01/2023) Medications Medication Sig Dispensed Refills Start Date [...] 30 Tab 0 12/25/2018 Active nystatin (NYSTOP) 538345 UNIT/GM powder Apply topically to affected area [...] for Pain, Breakthrough. 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 Aortic valve stenosis 2021 documented as of this encounter (statuses as of 12/01/2023) Social History Tobacco Use Types Packs/Day Years [...] Care Team (Late st Contact Info) Description 12/02/2023 9:15 AM EST Office Visit Hematology/Oncology [place] [address] [place] [address] Jorge Allen MD [address] [place] [address] 12/02/2023 9:45 AM EST Hem/Onc Treatment Hematology/Oncology Treatment, [place] [address] [place] [address] Ritu, Chair 6 Hem On[address] [place], [place] [address] 12/09/2023 11:15 AM EST Hem/Onc Treatment Hematology/Oncology Treatment, [place] [address] [place] [address] Ritu, Chair 5 Hem Onc [address] [place], [place] [address] Pending Results Name Type Priority Associated Diagnoses Date /Time CBC WITH WBC DIFFERENTIAL Lab STAT Multiple myeloma not having achieved remission (HCC) 12/01/2023 3:00 PM EST COMPREHENSIVE METABOLIC PANEL Lab STAT Multiple myeloma not having achieved remission (HCC) 12/01/2023 3:00 PM EST CBC Lab STAT Multiple myeloma not having achieved remission (HCC) 12/01/2023 3:00 PM EST DIFFERENTIAL, AUTOMATED Lab STAT Multiple myeloma not having achieved remission (HCC) 12/01/2023 3:00 PM EST Health Maintenance Due Date Last [...] 10/19/2023, 11/15, 06/13/2020, Additional history exists GFR 11/24/2024 11/24/2023, 10/15, 11/02/2023, Additional history exists Pneumococcal Vaccine: 65+ Years Completed 02/18/2017, 01/12/2010 GARDASIL-HPV IMMUNIZATION SERIES Aged Out No longer eligible based on patient's age to complete this topic MENINGOCOCCAL (MENACTRA/MENVEO) Aged Out No longer eligible based on patient's age to complete this topic documented as of this encounter Medical Devices Implanted Type Area Surgical Instruments Inspector Device Identifier Shelf Expiration Date Model / Serial / Lot Comprehensive Srs/Nexel Distal Body Implanted:Qty: 1 on 12/23/2018 by Gautam Jasso MD at OR [facility] Right: Upper Arm 03/03/2028 [id number] / / [id number] Valve Ricky 3 Ultra 26mm - [id number] Implanted:Qty: 1 on 05/27/2022 by Jesús Weber MD at [facility]ARDIAC LABS [facility] [employer] [id number] 03/17/2023 [id number] / / Port Implant W/8f Poly Cath - [id number] Implanted:Qty: 1 on 12/29/2022 by Sudhir Lovett DO at OR [facility] Right: Chest CR BARD : PERIPHERAL VASCULAR [id number] 02/12/2024 [id number] / / [id number] documented as of this encounter Visit Diagnoses Diagnosis Multiple myeloma not having achieved remission (HCC) Multiple myeloma, without mention of having achieved remission documented in this encounter Advance Directives Documents on File Type Date Recorded Patient Label Folder Expl anation Power of Roll Picker 12/12/2018 8:46 AM Vipin viveros Power of Roll Picker Power of Roll Picker 12/12/2018 8:45 AM Zuleyma ferguson Power of Roll Picker Latest Code Status on File Code Status [...] the patient have Health Care Power of Roll Picker? Yes, not currently available Full Code 11/21/2018 8:53 AM 11/21/2018 2:27 PM This or bull reflects the patients wishes and were consensually agreed upon. Care Teams Airport Screener Relationship Specialty Start Date End Date Kulwinder Byers MD [address] [address] PCP - General 06/28/03 documented as of this encounter
--- OUTSIDE RECORDS SUMMARY | 2024-01-15 19:56 | External Medical Summary | Summary of Care ---
Author Name Unknown Organization [facility] Address [address] [facility] [place] [address] Phone [phone] Care Team Providers Care Caponizer Name Role Phone Kulwinder Byers MD Primary Care Provider Reason for Visit * Reason Comments Chemotherapy Cytotoxan IV Therapy IVIG * Episode Based Medications (Routine) - Authorized Specialty Diagnoses / Procedures Referred By Contac t Referred To Contact Diagnoses Hypogammaglobulinemia (HCC) Multiple myeloma not having achieved remission (HCC) Procedures LA INJ IVIG PRIVIGEN 500 MG Jorge Allen MD [address] [place] [address] Anc Hem/Onc [facility] DEPT CLOSED - 09/27/[address] [place] [phone] Referral ID Status Reason Start Date Expiration Date V isits Requested Visits Authorized [id number] Authorized 10/04/2023 11/13/2099 [id number] Encounter Details Date Type Department Care Team (Latest Contact Info) Description 12/09/2023 11:45 AM EST Hem/Onc Treatment Hematology/Oncolo gy Treatment, [place] [address] [place] [address] Rtiu, Chair 5 Hem Onc Scen[place] [address] [place] [address] Hypogammaglobulinemia (HCC)*; Multiple myeloma not having achieved [...] 30 Tab 0 12/25/2018 Active nystatin (NYSTOP) 686367 UNIT/GM powder Apply topically to affected area [...] documented in this encounter Plan of Treatment Health Maintenance Due Date Last Done Comments [...] this encounter Medical Devices Implanted Type Area Pile Trimmer Device Identifier Shelf Expiration Date Model / Serial / Lot Comprehensive Srs/Nexel Distal Body Implanted:Qty: 1 on 12/23/2018 by Gautam Jasso MD at OR [facility] Right: Upper Arm 03/03/2028 [id number] / / [id number] Valve Ricky 3 Ultra 26mm - [id number] Implanted:Qty: 1 on 05/27/2022 by Jesús Weber MD at CARDIAC LABS [facility] [employer] [id number] 03/17/2023 [id number] / / Port Implant W/8f Poly Cath - [id number] Implanted:Qty: 1 on 12/29/2022 by Sudhir Lovett DO at OR [facility] Right: Chest CR BARD : PERIPHERAL VASCULAR [id number] 02/12/2024 [id number] / / [id number] documented as of this encounter Visit Diagnoses [...] previous infusion reaction with IVIG, Starting on Tue12/09/23 at 1345, Until Discontinued, Maximum of 4 grams (4000 mg) per day. Acetaminophen (Tylenol) tab 650 mg 650 mg, Oral, ONCE PRN Other, or Chills, Starting on Tue12/09/23 at 1236, Until 12/10/23 at 1235, For 24 hours, Maximum of 4 grams (4000 mg) per day. 4 hours after initial dose. diphenhydrAMINE (Benadryl) cap 25 mg 25 mg, Oral, ONCE PRN If previous infusion reaction with IVIG, Starting on Tue12/09/23 at 1345, Until Discontinued diphenhydrAMINE (Benadryl) cap 25 mg 25 mg, Oral, ONCE PRN Other, Fever/Chills, Starting on Tue12/09/23 at 1236, Until 12/10/23 at 1235, For 24 hours, 4 hours after initial dose Given 12/09/2023 12:51 PM EST 25 mg diphenhydrAMINE (Benadryl) inj 50 mg 50 mg, IV Push, ONCE PRN Other, Hypersensitivity Reaction, Starting on Tue12/09/23 at 1236, Until 12/10/23 at 1235, For 24 hours diphenhydrAMINE (Benadryl) inj 50 mg 50 mg, IV Push, ONCE PRN Other, Hypersensitivity Reaction, Starting on Tue12/09/23 at 1236, Until 12/10/23 at 1235, For 24 hours EPINEPHrine 1 MG/ML inj 0.3 mg 0.3 mg, Intramuscular, ONCE PRN Other, Hypersensitivity Reaction or Anaphylaxis, Starting on Tue12/09/23 at 1236, Until 12/10/23 at 1235, For 24 hours EPINEPHrine 1 MG/ML inj 0.3 mg 0.3 mg, Intramuscular, ONCE PRN Other, Hypersensitivity Reaction or Anaphylaxis, Starting on Tue12/09/23 at 1236, Until 12/10/23 at 1235, For 24 hours hEParin 100 UNIT/ML Lock Flush inj 500 Units 500 Units (5 mL), IV Lock, PRN Other, IV Flush, Starting on Tue12/09/23 at 1236, Until 12/10/23 at 1235, For 24 hours, Do not flush if lock, PICC, or central line not in place; IV infusing or unable to flush. hEParin 100 UNIT/ML Lock Flush inj 500 Units 500 Units (5 mL), IV Lock, PRN Other, IV Flush, Starting on Tue12/09/23 at 1236, Until 12/10/23 at 1235, For 24 hours, Do not flush if lock, PICC, or central line not in place; IV infusing or unable to flush. hEParin 100 UNIT/ML Lock Flush inj 500 Units 500 Units (5 mL), IV Lock, PRN Other, IV Flush, Starting on Tue12/09/23 at 1245, Until 12/10/23 at 1244, For 24 hours, Do not flush if lock, PICC, or central line not in place; IV infusing or unable to flush. Hydrocortisone Sod Suc (PF) (Solu-Cortef) inj 100 mg 100 mg, IV Push, ONCE PRN Other, Hypersensitivity Reaction, Starting on Tue12/09/23 at 1236, Until 12/10/23 at 1235, For 24 hours Hydrocortisone Sod Suc (PF) (Solu-Cortef) inj 100 mg 100 mg, IV Push, ONCE PRN Other, Hypersensitivity Reaction, Starting on Tue12/09/23 at 1236, Until 12/10/23 at 1235, For 24 hours NSS infusion 500 mL, Intravenous, at 50 mL/hr, CONTINUOUS, Starting on Tue12/09/23 at 1345, Until Tue12/09/23 at 2344 Start Infusion 12/09/2023 12:52 PM EST 500 mL 50 mL/hr oxygen GAS Inhalation, OXYGEN, First dose on Tue12/09/23 at 1600, Until Discontinued, Device/Managed by: Low [...] Push, PRN Other, IV Flush, Starting on Tue12/09/23 at 1236, Until 12/10/23 at 1235, For 24 hours, Do not flush if lock, PICC, or central line not in place; IV infusing or unable to flush. sodium chloride 0.9 % flush central line 10 mL 10 mL, IV Push, PRN Other, IV Flush, Starting on Tue12/09/23 at 1236, Until 12/10/23 at 1235, For 24 hours, Do not flush if lock, PICC, or central line not in place; IV infusing or unable to flush. sodium chloride 0.9 % flush central line 10 mL 10 mL, IV Push, PRN Other, IV Flush, Starting on Tue12/09/23 at 1245, Until 12/10/23 at 1244, For 24 hours, Do not flush if [...] 2.2 mL of Sterile Water for Injection, [facility], into the vial, directing the diluent stream [...] 2:51 PM EST 620 mg 500 mL/hr Immune [...] Change 12/09/2023 1:30 PM EST 84 mL/hr ondansetron (Zofran) tab 8 mg 8 mg, Oral, ONCE, On Tue12/09/23 at 1315, For 1 dose Given 12/09/2023 12:57 PM EST 8 mg documented in this encounter Advance Directives Documents on File Type Date Recorded Patient Paper Finisher Expl anation Power of Mounter Flutes And Piccolos 12/12/2018 8:46 AM Vipin viveros Power of Mounter Flutes [employer] Piccolos Power of Mounter Flutes [employer] Piccolos 12/12/2018 8:45 AM Zuleyma ferguson Power of Mounter Flutes [employer] Piccolos Latest Code Status on File Code Status [...] the patient have Health Care Power of Mounter Flutes And Piccolos? Yes, not currently available Full Code 11/21/2018 8:53 AM 11/21/2018 2:27 PM This or bull reflects the patients wishes and were consensually agreed upon. Care Teams Caponizer Relationship Specialty Start Date End Date Kulwinder Byers MD [address] [address] PCP - General 06/28/03 documented as of this encounter
--- OUTSIDE RECORDS SUMMARY | 2024-01-15 19:56 | External Medical Summary ---
Author Name Unknown Address Unknown Organization K01:[place] [facility] [place] [facility] [address] [facility] [address] [place] [address] Laboratory Report Ordering Provider Test Date Status WOOD CANTU 12/08/2023 15:00:00 Final Observation Date Value Abnormality Reference (Units ) Status WBC, Total 12/08/2023 15:00:00 2.31 Below low normal 4.00-10.80 (K/uL) Final RBC 12/08/2023 15:00:00 3.30 3.85-5.15 (M/uL) Final Hemoglobin 12/08/2023 15:00:00 10.6 Below low normal 12.0-15.3 (g/dL) Final HCT 12/08/2023 15:00:00 32.8 Below low normal 36.0-45.2 (%) Final MCV 12/08/2023 15:00:00 99.4 81.5-97.5 (fL) Final MCH 12/08/2023 15:00:00 32.1 27.0-34.0 (pg) Final MCHC 12/08/2023 15:00:00 32.3 32.0-36.0 (g/dL) Final RDW 12/08/2023 15:00:00 16.8 11.5-15.5 (%) Final Platelets 12/08/2023 15:00:00 127 Below low normal 140-400 (K/uL) Final MPV 12/08/2023 15:00:00 12.8 6.6-11.1 (fL) Final Nucleated erythrocytes/100 leukocytes [Ratio] in Blood by Automated count 12/08/2023 15:00:00 0 <=0 (/100 WBCs) Final Performing Location [place] [facility] [place] [address] [place] [address]
--- OUTSIDE RECORDS SUMMARY | 2024-01-15 19:56 | External Medical Summary | Summary of Care ---
Author Name Unknown Organization [facility] Address [address] [facility] [place] [address] Phone [phone] Care Team Providers Care Salad Bar Clerk Name Role Phone Kulwinder Byers MD Primary Care Provider [phone] Encounter Details Date Type Department Care Team (Late st Contact Info) Description 10/18/2023 Orders Only Hematology/Oncology Treatment, [place] [address] [place] [address] Jorge Allen MD [address] [place] [address] Multiple myeloma not having achieved remission (HCC)* Allergies Active Allergy Reactions Criticality Noted Date Comments Adhesive Tape 05/28/2003 documented as of this encounter (statuses as of 12/06/2023) Medications Medication Sig Dispensed Refills Start Date [...] 30 Tab 0 12/25/2018 Active nystatin (NYSTOP) 571378 UNIT/GM powder Apply topically to affected area [...] before bedtime. 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 Aortic valve stenosis 2021 documented as of this encounter (statuses as of 12/06/2023) Social History Tobacco Use Types Packs/Day Years [...] 12/09/2023 11:30 AM EST Office Visit Hematology/Oncology [facility] [address] [place] [address] Jorge Allen MD 200 [facility] [place] [address] 12/09/2023 11:45 AM EST Hem/Onc Treatment Hematology/Oncology Treatment, [place] [address] [facility] [address] [place] [address] Ritu, Chair 5 Hem On[address] [place] [address] Scheduled Orders Name Type Priority Associated Diagnoses Orde r Schedule PHOSPHORUS Lab STAT Multiple myeloma not having achieved remission (HCC) Every 3 Months for 5 Occurrences starting 10/18/2023 until 10/18/2024, 3 completed Health Maintenance Due Date Last Done Comments [...] this encounter Medical Devices Implanted Type Area Emergency Vehicle Operations Instructor Device Identifier Shelf Expiration Date Model / Serial / Lot Comprehensive Srs/Nexel Distal Body Implanted:Qty: 1 on 12/23/2018 by Gautam Jasso MD at OR [facility] Right: Upper Arm 03/03/2028 [id number] / / [id number] Valve Ricky 3 Ultra 26mm - [id number] Implanted:Qty: 1 on 05/27/2022 by Jesús Weber MD at CARDIAC LABS [facility] [employer] [id number] 03/17/2023 [id number] / / Port Implant W/8f Poly Cath - [id number] Implanted:Qty: 1 on 12/29/2022 by Sudhir Lovett DO at OR [facility] Right: Chest CR BARD : PERIPHERAL VASCULAR [id number] 02/12/2024 [id number] / / [id number] documented as of this encounter Results * PHOSPHORUS (11/24/2023 9:07 AM EST) [facility] Phosphorus 3.0 2.5 - 4.8 mg/dL 11/24/2023 4:32 PM EST [facility] Blood Venous blood specimen / Unknown Venipuncture / Unknown 11/24/2023 9:07 AM EST 11/24/2023 9:07 AM EST Jorge Allen MD LAB BLOOD ORDERABLES Performing Organization Address City/[facility] Co de Phone Number LAB[facility]ATORY [facility] [address] [place] [address] * (ABNORMAL) PHOSPHORUS (10/27/2023 3:50 PM EST) Phosphorus 2.4(L) 2.5 - 4.8 mg/dL 10/28/2023 3:15 AM EST [facility] Blood Venous blood specimen / Unknown Venipuncture / Unknown 10/27/2023 3:50 PM EST 10/27/2023 4:01 PM EST Jorge Allen MD LAB BLOOD ORDERABLES Performing Organization Address [facility] Co de Phone Number [facility] [address] [place] [address] * PHOSPHORUS (10/19/2023 3:25 PM EST) Phosphorus 2.5 2.5 - 4.8 mg/dL 10/19/2023 11:43 PM EST [facility] Blood Venous blood specimen / Unknown Venipuncture / Unknown 10/19/2023 3:25 PM EST 10/19/2023 3:25 PM EST Jorge Allen MD LAB BLOOD ORDERABLES Performing Organization Address City/[facility] de Phone Number LABORATORY [facility] [address] [place] [address] documented in this encounter Visit Diagnoses Diagnosis Multiple myeloma not having achieved remission (HCC)- Primary Multiple myeloma, without mention of having achieved remission documented in this encounter Advance Directives Documents on File Type Date Recorded Patient Medical Sales Expl anation Power of Plug Sorter 12/12/2018 8:46 AM Vipin viveros Power of Plug Sorter Power of Plug Sorter 12/12/2018 8:45 AM Zuleyma ferguson Power of Plug Sorter Latest Code Status on File Code [...] the patient have Health Care Power of Plug Sorter? Yes, not currently available Full Code 11/21/2018 8:53 AM 11/21/2018 2:27 PM This or bull reflects the patients wishes and were consensually agreed upon. Care Teams Salad Bar Clerk Relationship Specialty Start Date End Date Kulwinder Byers MD [address] [address] PCP - General 06/28/03 documented as of this encounter
--- OUTSIDE RECORDS SUMMARY | 2024-01-15 19:56 | External Medical Summary | Summary of Care ---
Author Name Unknown Organization [facility] Address [address] [place] [address] Phone [phone] Care Team Providers Care Education Department Chair Name Role Phone Kulwinder Byers MD Primary Care Provider Reason for Visit * Reason Comments Re-Check Chemo recheck Encounter Details Date Type Department Care Team (Late st Contact Info) Description 12/09/2023 11:30 AM EST Office Visit Hematology/Oncology [place] [address] [facility] [place] [address] Jorge Allen MD [address] [facility] [place] [address] Multiple myeloma not having achieved remission (HCC)*; Hypogammaglobulinemia (HCC) Allergies Active Allergy Reactions Criticality Noted [...] 30 Tab 0 12/25/2018 Active nystatin (NYSTOP) 484945 UNIT/GM powder Apply topically to affected area [...] Sign Reading Time Taken Comments Blood Pressure 121/80 12/09/2023 10:34 AM EST Pulse 98 12/09/2023 10:34 AM EST Temperature 36.8 C (98.3 F) 12/09/2023 10:[address] Respiratory Rate 18 12/09/2023 10:34 AM EST Oxygen Saturation 92% 12/09/2023 10:34 AM EST Inhaled Oxygen Concentration - - [...] as of this encounter Progress Notes * Jorge Allen MD - 12/09/2023 11:30 AM EST Hematology/Oncology Outpatient Clinic note [place] [address] [facility] [place] [address] Name: Chantel Roy Date: 04/08/2023 CHIEF COMPLAINT: Chantel Roy is a 83 year old female here today for f/u visit today. HEMATOLOGY/ONCOLOGY DIAGNOSIS: Plasmacytoma involving the distal right humerus. (Lytic lesion measuring 2.7 x 6.2 x 5.8 cm, November 2018. (IgA kappa) 07/2019 --> multiple myeloma, (PET-CT scan shows multiple lytic lesions). 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 She was seenby video poker floorman oncologist at [facility], high risk for surgical intervention, suggested for IUD, to be done by local rn birthing. She has not seen gone for follow-up visit for that. No new abnormal vaginal bleeding. TREATMENT HISTORY: - right distal humeral replacement for a right distal humerus pathologic fracture nonunion consistent with a plasmacytoma. This procedure was done on 12/23/2018. - Revlimid at 10 mg once a day for 3 weeks followed by 1 week off 08/10/19-07/28/21 07/11/2020 --> decided to discontinue Velcade and Decadron (she received approximately 1 year of Velcade, Revlimid and Decadron treatment) --------- - Completed radiation treatment to the right distal humerus region at [facility]. -restarted Velcade, Revlimid and Decadron on 07/28/21 - 07/21/22 -palliative radiation therapy to pelvis/left hip completed 02/14/23 CURRENT TREATMENT: 07/21/2022 --> decided to change the myeloma treatment to subcutaneous daratumumab, pomalidomide and Decadron combination ( disease progression noted in the blood workup and PET-CT scan) - currently receiving daratumumab every other week. - dexamethasone 20 mg weekly -11/11/2022 --> decided to discontinue pomalidomide( she was somewhat noncompliant) and the start IV Cytoxan 300 mg/m weekly. -will continue Xgeva every 3 monthly (Xgeva started on 08/10/2019, in the November 2021, change to every 3 monthly. She is on Coumadin for underlying thrombotic complications. Acyclovir prophylaxis. (400 mg twice a day) IVIG 30 g every 4 weekly started in early October 2021. DIAGNOSTIC WORKUP: Earlier in October 2018 she had increasing pain in the right elbow region which occurred after lifting some heavy object, she did not seek medical attention right after that but then she continued to have increasing pain, she was seen by orthopedic surgeon at [facility] and then she was referred to [facility] and was seen by Dr. Jasso. Workup as follows: X-ray of the right humerus (11/10/2018): - Lesion involving distal humerus measuring 2.7 x 6.[address] scan of the chest, abdomen and pelvis done on 11/13/2018: - Left chest wall AICD noted. - No lung nodules or lymphedenopathy. - No liver lesions - Kidney cyst noted - No intra-abdominal lymphedenopathy. - No definite bony lesions noted anywhere else. Bone scan (11/15/2018) - Focal activity in the distal right humerus/right elbow region consistent with the known lytic lesion noted in the previous plain x-ray. - No other suspicious findings noted. Patient was seen by Dr. Jasso, underwent biopsy of the right humerus lesion on 11/21/2018: - Final pathology --> Plasmacytoma. Lorena light chain restriction noted. Blood workup done on 11/10/2018: - WBC 7800, H&H of 12.9/40, Platelet count of 224,000 - BUN/creatinine: 14/0.9, calcium 9.1, normal liver function test - Total protein 7.7. - ESR --> 32 PET-CT scan done on 12/13/2018 at [facility]: - 1.3 cm lesion noted in the right parietal lobe which is not metabolically active. - No other FDG avid disease noted anywhere else. - Because of her body habitus, right distal humerus was not included in the imaging studies where lytic lesion identified. Blood workup done on 12/08/2018: - [id number] level --> 2.88 - IgG 1171, IgA 1028, IgM 103 - Free kappa light chain 35.8, free lambda light chain 19.5, Lorena/Lambda ratio 1.83 - BUN/creatinine: 14/0.8, calcium 10.0, normal liver function test - M spike --> Unable to accurately quantitate. - SPEP --> IgA Lorena paraprotein. - Urine for Protein/Creatinine ratio --> 119 which is in the normal range. - Urine for Bence-Santoyo protein --> Present. - right distal humeral replacement for a right distal humerus pathologic fracture nonunion consistent with a plasmacytoma. This procedure was done on 12/23/2018. Distal right humerus tumor resection --> Plasma cell neoplasm. (12/23/2018). Bone marrow (12/23/2018) - Plasma cell neoplasm, consisting 9% on paucicellular smear. - FISH: 1, 5, 9, 13, 14 (IgH), 15, and 17 (TP53) probe sets --> Negative. OTHER IMPORTANT HISTORY: - DJD -bradycardia, S/P permanent pacemaker placement in September 2017 -Diabetes mellitus -post herpetic neuralgia involving right chest and right breast region, she is on Neurontin -Vitamin B12 replacement therapy. -sleep apnea -Hypertension -Hyperlipidemia -- depression, she is on venlafaxine. -she takes vitamin-D replacement therapy 1000 units per day. -obesity, -history of hematuria in the past. 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 New 7.1 x 2.6 cm osteolytic lesion centered between the bilateral S1/S2 neural foramina 2. New osteolytic lesions with nondisplaced pathologic fractures involving the left femoral neck; and bilateral inferior pubic rami. Was evaluated by Dr. Jasso at [facility] 01/06/23: I recommend against prophylactic surgical treatment of the left hip. There will always be some riskof pathologic fracture. However, at this time, I do not perceive that her pain is likely due to a lesion of the proximal femur. Moreover, I believe the risk of complications associated with surgery far outweigh the risk Of pathologic hip fracture or femur fracture. I recommend that the patient be weight-bearing as tolerated and activity as tolerated. I will plan to see the patient in follow-up in the orthopedic clinic on as needed basis if her condition worsensor if new symptoms arise. She then completed radiation treatment to that area at [facility] in mid-February 2023. Has some local discomfort, she takes oxycodone twice a day for the symptomatic treatment. HISTORY OF PRESENT ILLNESS: She has come to the clinic for the follow-up, she came to clinic by herself. Came to clinic in the wheelchair. She does complain of left hip pain, earlier she finished radiation treatment earlier in February 2023, she takes oxycodone for the symptomatic treatment perhaps twice a day. No nausea no vomiting, no cardiac or pulmonary symptom no abdominal symptoms, no diarrhea no constipation, no bleeding from the sites, weight gain by about 10 lb, current weight around 244 lb, No increasing leg edema.She is on Xgeva every 3 monthly, no jaw discomfort. Now since early October 2023, started on IVIG for the hypoglobulinemia and area. Infections. Tolerated well. She is on oral Coumadin for underlying cardiac arrhythmia. No new bleeding complications. Past Medical History: Diagnosis Date Acute cholecystitis 1975 Aortic stenosis Bilateral pulmonary embolism (HCC) Cardiac pacemaker in situ Carpal tunnel syndrome unknown [facility] Complete heart block (HCC) Dependent edema DM (diabetes mellitus), type 2 (HCC) Monoclonal gammopathy Pathologic fracture of right humerus Plasmacytoma (HCC) Past Surgical History: Procedure Laterality Date ABD WALL HERNIA REPAIR, LAP, REDUCIBLE ANESTH, TOTAL KNEE REPLACEMENT Bilateral BONE BIOPSY, TROCAR/NEEDLE, DEEP Right 11/21/2018 BIOPSY BONE TROCAR OR NEEDLE DEEP performed by Gautam Jasso MD at OR [facility] BONE MARROW ASPIRATION 12/23/2018 BONE MARROW ASPIRATION performed by Gautam Jasso MD at OR [facility] CARPAL TUNNEL SURGERY Carpal Tunnel repair right DILATION AND CURETTAGE (D&C) FLUORO CHOLECYSTOGRAM GALLBLADDER W CONTRAST 1975 HUMERUS TUMOR RESECTION Right 12/23/2018 RADICAL RESECTION TUMOR SHAFT DISTAL HUMERUS performed by Gautam Jasso MD at OR [facility] INFORMATION 1989 wisdom teeth removal INSER TUNN ACC DEV;5 YRS/OLDER Right 12/29/2022 INSERT TUNNELED CENTRAL VENOUS ACCESS WITH SUBQ PORT performed by Sudhir Lovett DO at OR [facility] LIGATE/CUT OVIDUCT(S) 1965 RECONSTRUCT ELBOW W/HUMERAL REPLACE Right 12/23/2018 ARTHROPLASTY ELBOW WITH DISTAL HUMERUS REPLACEMENT performed by Gautam Jasso MD at OR [facility] REMOVAL OF APPENDIX REMOVAL OF TONSILS, UNDER AGE 12 REMOVE CATARACT, INSERT LENS PROSTH REMOVE GALLBLADDER REPLACE AORTIC VALVE, PERCUTANEOUS FEMORAL Bilateral 05/27/2022 REPLACE AORTIC VALVE, PERCUTANEOUS FEMORAL performed by Jesús Weber MD at [facility] REPLACE AORTIC VALVE, PERCUTANEOUS FEMORAL 05/27/2022 REPLACE AORTIC VALVE, PERCUTANEOUS FEMORAL performed by Elton Aguirre MD at [facility] Social History Tobacco Use Smoking status: Never Smokeless tobacco: Never Vaping Use Vaping Use: Never used Substance and Sexual Activity Alcohol use: No Comment: occassional Drug use: No Review of patient's allergies indicates: Allergen Reactions Adhesive Tape Current Outpatient Medications Medication Sig Dispense Refill WARFARIN SODIUM 10 MG PO TABS Take by mouth. Tuesday and Tuesday 10mg. Rest of the week 8mg. (Patient not taking: Reported on 08/10/2023) LORATADINE 10 MG PO TABS 1 tab in the am Multiple Vitamins-Minerals (MULTIVITAMIN ADULT) TABS Take by mouth. Cholecalciferol (VITAMIN D) 1000 units Tablet Take 1 Tablet by mouth in the morning. CYANOCOBALAMIN (VITAMIN B-12) 100 MCG Tablet Take 1 Tablet by mouth in the morning. vitamin c (ASCORBIC ACID) 500 MG Tablet Take 1 Tablet by mouth in the morning. acetaminophen (TYLENOL) 325 MG Tablet Take 3 Tabs by mouth 4 times a day. 30 Tab 0 nystatin (NYSTOP) 061461 UNIT/GM powder Apply topically to affected area 2 times a day. Apply to abd. Skin folds 15 g 0 atorvaSTATin (LIPITOR) 10 MG Tablet daily. Steel Rolling Walker Use as directed . Rollator walker 1 Each 0 Ondansetron HCl 8 MG Oral Tablet (Zofran) Take by mouth 1 Tablet every 8 hours as needed for Nausea. 30 Tablet 1 Prochlorperazine Maleate 10 MG Oral Tablet (Compazine) Take by mouth 1 Tablet every 6 hours as needed for Nausea. 30 Tablet 1 Pantoprazole Sodium 40 MG Oral Tablet Delayed Release (Protonix) Take 1 Tablet by mouth daily firstthing in the morning. (Confirmed with PCP 10/12/22) Calcium 600-200 MG-UNIT Oral Tablet Take by mouth . Acyclovir 400 MG Oral Tablet (Zovirax) Take 1 Tablet (400 mg) by mouth in the morning and 1 Tablet (400 mg) before bedtime. 180 Tablet 3 Xgeva 120 MG/1.7ML Subcutaneous Solution (Denosumab) 120 mg. Loperamide HCl 2 MG Oral Capsule (Imodium) Take 1 Capsule by mouth 4 times a day as needed for Diarrhea. Lidocaine-Prilocaine 2.5-2.5 % External Cream (Emla) APPLY TO SKIN OVER MEDIPORT & COVER 1HR PRIOR TO ACCESSING. 30 g 1 Aspirin Low Dose 81 MG Oral Tablet Chewable (aspirin) TAKE 1 TABLET BY MOUTH EVERY DAY IN THE MORNING 90 Tablet 3 Furosemide 20 MG Oral Tablet (Lasix) TAKE 1 TABLET BY MOUTH EVERY DAY IN THE MORNING 90 Tablet 3 Venlafaxine HCl 75 MG Oral Tablet (Effexor) Take 1 Tablet by mouth in the morning. In the am.. 90 Tablet 03 Phospha 250 Neutral 155-852-130 MG Oral Tablet Take 1 Tablet by mouth in the morning and 1 Tablet before bedtime. 180 Tablet 1 Potassium Chloride ER 10 MEQ Oral Tablet Extended Release TAKE BY MOUTH 1 TABLET IN THE MORNING AND1 TABLET IN THE EVENING BEFORE BEDTIME. 180 Tablet 0 dexAMETHasone 4 MG Oral Tablet (Decadron) Take 20mg once a week 60 Tablet 1 oxyCODONE HCl 5 MG Oral Tablet (Oxy IR) Take 1 Tablet by mouth every 6 hours as needed for Pain, Breakthrough. 60 Tablet 0 No current facility-administered medications for this visit. REVIEW OF SYSTEMS: See HPI - otherwise negative OBJECTIVE: BP 121/80 (BP Site: Left Arm, BP Position: Sitting, BP Cuff Size: Regular) | Pulse 98 | Temp 36.8 C (98.3 F) (Tympanic) | Resp 18 | SpO2 92% PHYSICAL EXAM: ECOG: Performance Status 2 = 60-70% Bedtime, < 50% daytime General Appearance: No acute distress HEENT: Normal - No oral or pharyngeal masses, ulceration or thrush noted Lymph Nodes: Normal - No palpable lymph nodes in the neck or supraclavicular areas Lungs/Thorax: Normal - Clear to auscultation Heart: Normal - Regular rate and rhythm, normal S1, S2, no appreciable murmurs Extremities: Nonpitting BLE edema Neurologic: alert and oriented x 2, in wheelchair today; forgetful LABS: Blood workup done on 06/09/2023: -WBC 2100, H&H of 10.3/31, Platelet count 470327. -ANC 1600, absolute lymphocyte count 0.09 -BUN/Creat: 25/0.9, Calcium 8.9, total protein 5.5, normal liver function test. Myeloma blood workup done on 06/02/2023: -Ig, IgA 650, IgM 6 -free kappa light chain --> 24, free lambda light chain 6.3, Lorena/Lambda ratio 3.8 -M spike --> unable to accurately quantitated. Blood workup done on 1922: -WBC 2300, H&H of 11.3/35, Platelet count [id number] -BUN/Creat: 22/0.9, Calcium 9.2, normal liver function test -phosphorus level --> 3.2 Myeloma blood workup done on 08/18/2023: -free kappa light chain --> 20.3, free lambda light chain --> 1.0, Lorena/Lambda ratio --> 15.2 -Ig, IgA 474, IgM <5. M spike unable to quantitate. Blood workup done on 12/08/2023: -WBC 2300, H&H of 10.6/32.8, Platelet count 974599 -BUN/Creat: 16/0.8, normal LFT. Calcium 9.0 Blood workup done on 11/24/2023: -IgG 677, IgA 394, IgM 11. -M spike not able to accurately quantitated. -free kappa light chain 17.6, free lambda light chain 1.7, Lorena/Lambda ratio 10.0. IMPRESSION/PLAN: Multiple Myeloma Encounter for chemotherapy Cancer related pain Overall her clinical condition has remained stable, persistent pain in the hip noted, earlier she completed radiation treatment in February 2023, she takes oxycodone for the symptomatic treatment, currently she is on Darzalex Faspro every 4 weekly, Cytoxan every weekly, Decadron 20 mg every weekly. Gradual improvement of the myeloma markers noted. Will continue current treatment plan. She will continue oxycodone for the symptomatic treatment of hip pain. No jaw problems, continue Xgeva every 3 monthly Now since early November 2019, started on IVIG for hypokalemia and repeated infections, overall tolerated well, no side effects of IVIG. She is on oral Coumadin for underlying cardiac arrhythmia. No new bleeding complications no new thrombotic complications. Will see her back in the clinic about [address] Jorge Allen Hem/Onc (This note was completed using the dictation program Fluency Direct. As such, there may be misspellings word substitutions, or other variations that should not change the essence of the clinical content of this encounter note. If there is need for further clarification, please direct questions to the provider listed above.) documented in this encounter Nursing Notes * Robina Torres LPN - 12/09/2023 10:36 AM EST Patient identifed by name and birthdate Do you have any concerns about pain management for today's visit? No Living Will or Advance Directive for Health Care as noted on the problem list. [facility] is a way you can talk to your provider on line through e-mail. Would you like to sign up? I can activate it for you? NO Filed Vitals: 12/09/23 1034 BP: 121/80 Pulse: 98 Resp: 18 Temp: 36.8 C (98.3 F) TempSrc: Tympanic SpO2: 92% Patient was instructed to not get up on the exam table/exam chair until directed and assisted by their provider; patient is to remain seated in the chair/ wheelchair/ exam table/ exam chair for fall prevention and safety reasons. Patient is aware to have assistance to step down off exam table/exam chair with personnel. Patient voiced full comprehension of instructions. documented in this encounter Plan of Treatment [...] encounter Medical Devices Implanted Type Area Supervisor Color Paste Mixing Device Identifier Shelf Expiration Date Model / Serial / Lot Comprehensive Srs/Nexel Distal Body Implanted:Qty: 1 on 12/23/2018 by Gautam Jasso MD at OR [facility] Right: Upper Arm 03/03/2028 [id number] / / [id number] Valve Ricky 3 Ultra 26mm - [id number] Implanted:Qty: 1 on 05/27/2022 by Jesús Weber MD at [facility] [employer] [id number] 03/17/2023 [id number] / / Port Implant W/8f Poly Cath - [id number] Implanted:Qty: 1 on 12/29/2022 by Sudhir Lovett DO at OR [facility] Right: Chest CR BARD : PERIPHERAL VASCULAR [id number] 02/12/2024 [id number] / / [id number] documented as of this encounter Visit Diagnoses Diagnosis Multiple myeloma not having achieved remission (HCC)- Primary Multiple myeloma, without mention of having achieved remission Hypogammaglobulinemia (HCC) Hypogammaglobulinaemia, unspecified documented in this encounter Advance Directives Documents on File Type Date Recorded Patient Statistical Methods Professor Expl anation Power of Jewel Flat Surfacer 12/12/2018 8:46 AM Vipin viveros Power of Jewel Flat Surfacer Power of Jewel Flat Surfacer 12/12/2018 8:45 AM Zuleyma ferguson Power of Jewel Flat Surfacer Latest Code Status on File Code Status [...] the patient have Health Care Power of Jewel Flat Surfacer? Yes, not currently available Full Code 11/21/2018 8:53 AM 11/21/2018 2:27 PM This or bull reflects the patients wishes and were consensually agreed upon. Care Teams Education Department Chair Relationship Specialty Start Date End Date Kulwinder Byers MD [address] [place] [address] PCP - General 06/28/03 documented as of this encounter"
[2024-01-15 19:57] VITALS: TEMP 98.1
--- OUTSIDE RECORDS SUMMARY | 2024-01-15 19:57 | External Medical Summary ---
Author Name Unknown Address Unknown Organization K01:[facility] [address] [place] [address] Laboratory Report Ordering Provider Test Date Status ARTUR CANTUEL 11/24/2023 09:07:08 Final Observation Date Value Abnormality Reference (Units ) Status Phosphate 11/24/2023 09:07:08 3.0 2.5-4.8 (m g/dL) Final Performing Location [facility] [address] [place] [id number]
--- OUTSIDE RECORDS SUMMARY | 2024-01-15 19:57 | External Medical Summary | Summary of Care ---
Author Name Unknown Organization [facility] Address [address] [facility] [address] Phone [phone] Care Team Providers Care Siene Maker Name Role Phone Kulwinder Byers MD Primary Care Provider Encounter Details Date Type Department Care Team (Late st Contact Info) Description 11/08/2023 Orders Only Hematology/Oncology, [facility] [address] [place] [address] Cate Graham MD [address] [place] [address] Allergies Active Allergy Reactions Criticality Noted Date Comments Adhesive Tape 05/28/2003 documented as of this encounter (statuses as of 11/11/2023) Medications Medication Sig Dispensed Refills Start Date [...] 30 Tab 0 12/25/2018 Active nystatin (NYSTOP) 696635 UNIT/GM powder Apply topically to affected area [...] as of this encounter (statuses as of 11/11/2023) Active Problems Problem Noted Date Diagnosed Date [...] as of this encounter (statuses as of 11/11/2023) Resolved Problems Problem Noted Date Diagnosed Date 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 Aortic valve stenosis 2021 documented as of this encounter (statuses as of 11/11/2023) Social History Tobacco Use Types Packs/Day Years [...] encounter Miscellaneous Notes * Addendum Note - Merrick Gross RN - 11/11/2023 11:21 AM ESTAddended by: MERRICK GROSS on: 11/11/2023 11:21 AM Modules accepted: Orders documented in this encounter Plan of Treatment Upcoming Encounters Date Type Department Care Team (Kulwant Contact Info) Description 11/18/2023 1:45 PM EST Hem/Onc Treatment Hematology/Oncology Treatment, [place] [address] [facility], [place] [address] Ritu, Chair 8 Hem Onc Scenery [address] [place] [address] 11/25/2023 1:45 PM EST Hem/Onc Treatment [facility] [place] [facility] [address] Ritu, Chair 1 Hem Onc Scenery [address] [place] [address] 12/02/2023 9:15 AM EST Office Visit Hematology/Oncology Scenery [place] 200 [facility] [place] [address] Jorge Allen MD [address] [place] [address] 12/02/2023 9:45 AM EST Hem/Onc Treatment Hematology/Oncology Treatment, [place] [address] [facility], [place] [address] Ritu, Chair 6 Hem Onc Scenery [address] [place], [place] [address] 12/09/2023 11:15 AM EST Hem/Onc Treatment [facility] [place] [facility] [address] Ritu, Chair 5 Hem Onc Scenery 200 [facility] [place], [place] [address] 02/13/2024 2:00 PM EDT Office Visit Cardiology, [facility] [place] [address] [place] [address] Katie Delong CRNP [address] [place] [address] Health Maintenance Due Date Last Done Comments [...] 10/19/2023, 11/15, 06/13/2020, Additional history exists GFR 11/11/2024 11/11/2023, 10/15, 10/27/2023, Additional history exists Pneumococcal Vaccine: 65+ Years Completed 02/18/2017, 01/12/2010 GARDASIL-HPV IMMUNIZATION SERIES Aged Out No longer eligible based on patient's age to complete this topic MENINGOCOCCAL (MENACTRA/MENVEO) Aged Out No longer eligible based on patient's age to complete this topic documented as of this encounter Medical Devices Implanted Type Area Molecular Biology Director Device Identifier Shelf Expiration Date Model / Serial / Lot Comprehensive Srs/Nexel Distal Body Implanted:Qty: 1 on 12/23/2018 by Guatam Jasso MD at [place] [facility] Right: Upper Arm 03/03/2028 [id number] / / [id number] Valve Ricky 3 Ultra 26mm - [id number] Implanted:Qty: 1 on 05/27/2022 by Jesús Weber MD at [facility]ARD[facility] LABS [facility] [employer] [id number] 03/17/2023 [id number] / / Port Implant W/8f Poly Cath - [id number] Implanted:Qty: 1 on 12/29/2022 by Sudhir Lovett DO at OR [facility] Right: Chest CR BARD : PERIPHERAL VASCULAR [id number] 02/12/2024 [id number] / / [id number] documented as of this encounter Advance Directives Documents on File Type Date Recorded Patient Local Driver Expl anation Power of Wireworker Supervisor 12/12/2018 8:46 AM Vipin viveros Power of Wireworker Supervisor Power of Wireworker Supervisor 12/12/2018 8:45 AM Zuleyma ferguson Power of Wireworker Supervisor Latest Code Status on File Code [...] the patient have Health Care Power of Wireworker Supervisor? Yes, not currently available Full Code 11/21/2018 8:53 AM 11/21/2018 2:27 PM This or bull reflects the patients wishes and were consensually agreed upon. Care Teams Siene Maker Relationship Specialty Start Date End Date Kulwinder Byers MD [address] [address] PCP - General 06/28/03 documented as of this encounter
--- OUTSIDE RECORDS SUMMARY | 2024-01-15 19:57 | External Medical Summary ---
Author Name Unknown Address Unknown Organization K0G:[facility] [address] [place] [address] Laboratory Report Ordering Provider Test Date Status WOOD CANTU 11/11/2023 04:50:00 Final Observation Date Value Abnormality Reference (Units ) Status Nucleated erythrocytes/100 leukocytes [Ratio] in Blood by Automated count 11/11/2023 04:50:00 Final Acanthocytes [Presence] in Blood by Light microscopy 11/11/2023 04:50:00 Moderate Abnormal None Seen Final Elliptocytes [Presence] in Blood by Light microscopy 11/11/2023 04:50:00 Moderate Abnormal None Seen Final Ovalocytes [Presence] in Blood by Light microscopy 11/11/2023 04:50:00 Moderate Abnormal None Seen Final Schistocytes 11/11/2023 04:50:00 Few Abnormal None Seen Final Variant lymphocytes [Presence] in Blood by Light microscopy 11/11/2023 04:50:00 Present Abnormal None Seen Final Performing Location [facility] [place] [address]
--- OUTSIDE RECORDS SUMMARY | 2024-01-15 19:57 | External Medical Summary | Summary of Care ---
Author Name Unknown Organization [facility] Address [address] [place] [place] [place] [address] Phone [phone] Care Team Providers Care Propellant Charge Loader Name Role Phone Kulwinder Byers MD Primary Care Provider Encounter Details Date Type Department Care Team (Late st Contact Info) Description 11/08/2023 Orders Only Hematology/Oncology, [facility] [address] [place] [address] Cate Graham MD [address] [place] [address] Allergies Active Allergy Reactions Criticality [...] 30 Tab 0 12/25/2018 Active nystatin (NYSTOP) 938899 UNIT/GM powder Apply topically to affected area [...] 1:45 PM EST Hem/Onc Treatment Hematology/Oncology Treatment, [place] 200 [facility], [place] [address] Ritu, Chair 8 Hem Onc Scenery [address] [place] [address] 11/25/2023 1:45 PM EST Hem/Onc Treatment [facility] [place] [facility] [address] Ritu, Chair 1 Hem Onc Scenery [address] [place] [address] 12/02/2023 9:15 AM EST Office Visit Hematology/Oncology Scenery [place] 200 [facility] [place] [address] Jorge Allen MD [address] [place] [address] 12/02/2023 9:45 AM EST Hem/Onc Treatment Hematology/Oncology Treatment, [place] [address] [facility], [place] [address] Ritu, Chair 6 Hem Onc Scenery [address] [place], [place] [address] 12/09/2023 11:15 AM EST Hem/Onc Treatment [facility] [place] [facility] [address] Ritu, Chair 5 Hem Onc Scenery 200 [facility] [place], [place] [address] 02/13/2024 2:00 PM EDT Office Visit Cardiology, [facility] [place] [address] [place] [address] Katie Delong CRNP [address] [place] [address] Health Maintenance Due Date Last Done Comments [...] this encounter Medical Devices Implanted Type Area Quilt Maker Device Identifier Shelf Expiration Date Model / Serial / Lot Comprehensive Srs/Nexel Distal Body Implanted:Qty: 1 on 12/23/2018 by Gautam Jasso MD at OR [facility] Right: Upper Arm 03/03/2028 [id number] / / [id number] Valve Ricky 3 Ultra 26mm - [id number] Implanted:Qty: 1 on 05/27/2022 by Jesús Weber MD at CARDIAC LABS [facility] [employer] [id number] 03/17/2023 [id number] / / Port Implant W/8f Poly Cath - [id number] Implanted:Qty: 1 on 12/29/2022 by Sudhir Lovett DO at OR [facility] Right: Chest CR BARD : PERIPHERAL VASCULAR [id number] 02/12/2024 [id number] / / [id number] documented as of this encounter Advance Directives Documents on File Type Date Recorded Patient Maintenance Carpenter Expl anation Power of Personnel Clerk 12/12/2018 8:46 AM Vipin viveros Power of Personnel Clerk Power of Personnel Clerk 12/12/2018 8:45 AM Zuleyma ferguson Power of Personnel Clerk Latest Code Status on File Code Status [...] the patient have Health Care Power of Personnel Clerk? Yes, not currently available Full Code 11/21/2018 8:53 AM 11/21/2018 2:27 PM This or bull reflects the patients wishes and were consensually agreed upon. Care Teams Propellant Charge Loader Relationship Specialty Start Date End Date Kulwinder Byers MD [address] [address] PCP - General 06/28/03 documented as of this encounter
--- OUTSIDE RECORDS SUMMARY | 2024-01-15 19:57 | External Medical Summary ---
Author Name Unknown Address Unknown Organization [id number]:[facility] - [facility] [address] [facility] [address] [place] [address] Laboratory Report Ordering Provider Test Date Status WOOD CANTU 12/01/2023 15:00:00 Final Observation Date Value Abnormality Reference (Units ) Status WBC, Total 12/01/2023 15:00:00 2.90 Below low normal 4.00-10.80 (K/uL) Final RBC 12/01/2023 15:00:00 3.39 3.85-5.15 (M/uL) Final Hemoglobin 12/01/2023 15:00:00 11.0 Below low normal 12.0-15.3 (g/dL) Final HCT 12/01/2023 15:00:00 33.9 Below low normal 36.0-45.2 (%) Final MCV 12/01/2023 15:00:00 100.0 81.5-97.5 (fL) Final MCH 12/01/2023 15:00:00 32.4 27.0-34.0 (pg) Final MCHC 12/01/2023 15:00:00 32.4 32.0-36.0 (g/dL) Final RDW 12/01/2023 15:00:00 17.0 11.5-15.5 (%) Final Platelets 12/01/2023 15:00:00 106 Below low normal 140-400 (K/uL) Final MPV 12/01/2023 15:00:00 12.4 6.6-11.1 (fL) Final Nucleated erythrocytes/100 leukocytes [Ratio] in Blood by Automated count 12/01/2023 15:00:00 1 Above high normal <=0 (/100 WBCs) Final Performing Location [facility] - [address] [place] [address]
--- OUTSIDE RECORDS SUMMARY | 2024-01-15 19:57 | External Medical Summary | Summary of Care ---
Author Name Unknown Organization [facility] [address] [facility] [address] Phone [phone] Care Team Providers Care Back End Engineer Name Role Phone Kulwinder Byers MD Primary Care Provider Reason for Visit * Reason Comments Outpatient Testing Encounter Details Date Type Department Care Team (Late st Contact Info) Description 11/24/2023 9:20 AM EST Laboratory Laboratory, [facility] [address] [place] [address] [facility] [address] [place], [place] [id number] Multiple myeloma not having achieved remission (HCC) Allergies Active Allergy Reactions Criticality Noted Date Comments Adhesive Tape 05/28/2003 documented as of this encounter (statuses as of 11/24/2023) Medications Medication Sig Dispensed Refills Start Date [...] 30 Tab 0 12/25/2018 Active nystatin (NYSTOP) 891752 UNIT/GM powder Apply topically to affected area [...] as of this encounter (statuses as of 11/24/2023) Active Problems Problem Noted Date Diagnosed Date [...] as of this encounter (statuses as of 11/24/2023) Resolved Problems Problem Noted Date Diagnosed Date 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 Aortic valve stenosis 2021 documented as of this encounter (statuses as of 11/24/2023) Social History Tobacco Use Types Packs/Day Years [...] Care Team (Late st Contact Info) Description 11/25/2023 1:45 PM EST Hem/Onc Treatment Hematology/Oncology Treatment, [place] [address] [place] [address] Ritu, Chair 1 Hem Onc Scenery [address] [place] [address] 12/02/2023 9:15 AM EST Office Visit Hematology/Oncology [facility] [place] [address] [place] [address] Jorge Allen MD [address] [facility], [place] [address] 12/02/2023 9:45 AM EST Hem/Onc Treatment Hematology/Oncology Treatment, [place] 200 [place] [address] Ritu, Chair 6 Hem Onc [facility] [address] [place] [address] 12/09/2023 11:15 AM EST Hem/Onc Treatment Hematology/Oncology Treatment, [place] [address] [place] [address] Ritu, Chair 5 Hem Onc [facility] [address] [facility] [place], [place] [address] 02/13/2024 2:00 PM EDT Office Visit Cardiology, [facility] [address] [place] [address] Katie Delong CRNP [address] [place] [address] Pending Results Name Type Priority Associated Diagnoses Date /Time CBC WITH WBC DIFFERENTIAL Lab STAT Multiple myeloma not having achieved remission (HCC) 11/24/2023 9:07 AM EST COMPREHENSIVE METABOLIC PANEL Lab STAT Multiple myeloma not having achieved remission (HCC) 11/24/2023 9:07 AM EST SERUM PROTEIN ELECTROPHORESIS REFLEX PROFILE Lab STAT Multiple myeloma not having achieved remission (HCC) 11/24/2023 9:07 AM EST SERUM FREE LIGHT CHAINS Lab STAT Multiple myeloma not having achieved remission (HCC) 11/24/2023 9:07 AM EST IMMUNOGLOBULIN QUANTITATIVE Lab STAT Multiple myeloma not having achieved remission (HCC) 11/24/2023 9:07 AM EST PHOSPHORUS Lab STAT Multiple myeloma not having achieved remission (HCC) 11/24/2023 9:07 AM EST CBC Lab STAT Multiple myeloma not having achieved remission (HCC) 11/24/2023 9:07 AM EST DIFFERENTIAL, AUTOMATED Lab STAT Multiple myeloma not having achieved remission (HCC) 11/24/2023 9:07 AM EST Health Maintenance Due Date Last [...] this encounter Medical Devices Implanted Type Area Senior Boiler Operator Device Identifier Shelf Expiration Date Model / Serial / Lot Comprehensive Srs/Nexel Distal Body Implanted:Qty: 1 on 12/23/2018 by Gautam Jasso MD at OR [facility] Right: Upper Arm 03/03/2028 [id number] / / [id number] Valve Ricky 3 Ultra 26mm - [id number] Implanted:Qty: 1 on 05/27/2022 by Jesús Weber MD at CARDIAC LABS [facility] [employer] [id number] 03/17/2023 [id number] / / Port Implant W/8f Poly Cath - [id number] Implanted:Qty: 1 on 12/29/2022 by Sudhir Lovett DO at OR [facility] Right: Chest CR BARD : PERIPHERAL VASCULAR [id number] 02/12/2024 [id number] / / [id number] documented as of this encounter Visit Diagnoses Diagnosis Multiple myeloma not having achieved remission (HCC) Multiple myeloma, without mention of having achieved remission documented in this encounter Advance Directives Documents on File Type Date Recorded Patient Hazardous Substances Scientist Expl anation Power of Purchasing Buyer 12/12/2018 8:46 AM Vipin viveros Power of Purchasing Buyer Power of Purchasing Buyer 12/12/2018 8:45 AM Zuleyma ferguson Power of Purchasing Buyer Latest Code Status on File Code Status [...] the patient have Health Care Power of Purchasing Buyer? Yes, not currently available Full Code 11/21/2018 8:53 AM 11/21/2018 2:27 PM This or bull reflects the patients wishes and were consensually agreed upon. Care Teams Back End Engineer Relationship Specialty Start Date End Date Kulwinder Byers MD [address] [place] [address] PCP - General 06/28/03 documented as of this encounter
--- OUTSIDE RECORDS SUMMARY | 2024-01-15 19:57 | External Medical Summary ---
Author Name Unknown Address Unknown Organization [facility] [address] [place] [address] Laboratory Report Ordering Provider Test Date Status WOOD CANTU 11/11/2023 04:50:00 Final Observation Date Value Abnormality Reference (Units ) Status SYNC LEUKOCYTES IN BLOOD BY AUTOMATED COUNT 11/11/2023 04:50:00 2.37 Below low normal 4.00-10.80 (K/uL) Final Segs 11/11/2023 04:50:00 63.3 40.0-75.0 (%) Final Lymphs % 11/11/2023 04:50:00 5.5 Below low normal 18.0-42.0 (%) Final Monos 11/11/2023 04:50:00 24.1 Above high normal 1.0-11.0 (%) Final Eosinophils 11/11/2023 04:50:00 6.3 Above high normal 0.0-6.0 (%) Final Basos 11/11/2023 04:50:00 0.8 0.0-2.0 (%) Final Absolute Segs 11/11/2023 04:50:00 1.50 Below low normal 1.80-7.70 (K/uL) Final Lymphs, absolute 11/11/2023 04:50:00 0.13 Below low normal 1.00-4.80 (K/ul) Final Monos, Abs 11/11/2023 04:50:00 0.57 0.00-1.10 (K/uL) Final Eos, Abs 11/11/2023 04:50:00 0.15 0.00-0.70 (K/uL) Final Basos, Abs 11/11/2023 04:50:00 0.02 0.00-0.20 (K/uL) Final Performing Location [facility] [address] - [address] [place] [address]
--- OUTSIDE RECORDS SUMMARY | 2024-01-15 19:57 | External Medical Summary ---
Author Name Unknown Address Unknown Organization K01:LABORATORY [facility] - [address] [place] [address] Laboratory Report Ordering Provider Test Date Status WOOD CANTU 11/24/2023 09:07:08 Final Observation Date Value Abnormality Reference (Units ) Status BUN 11/24/2023 09:07:08 15 6-20 (mg/dL) Final Creatinine 11/24/2023 09:07:08 0.9 0.5-1.0 (mg/dL) Final Glomerular filtration rate/1.73 sq M.predicted [Volume Rate/Area] in Serum, Plasma or Blood by Creatinine-based formula (CKD-EPI) 11/24/2023 09:07:08 66 >=60 (mL/min) Final eGFR is calculated based on the CKD-EPI 2020 equation SODIUM 11/24/2023 09:07:08 142 135-146 (m mol/L) Final Potassium 11/24/2023 09:07:08 4.2 3.5-5.1 (m mol/L) Final Cl 11/24/2023 09:07:08 106 98-107 (mm ol/L) Final CO2 11/24/2023 09:07:08 25 22-32 (mmo l/L) Final Anion gap 11/24/2023 09:07:08 11 7-15 (mmol /L) Final Glucose 11/24/2023 09:07:08 136 Above high normal 70 -120 (mg/dL) Final Albumin 11/24/2023 09:07:08 3.9 3.8-5.0 (g /dL) Final AST (Aspartate aminotransferase) 11/24/2023 09:07:08 18 10-35 (U/L) Fin al Alk Phos 11/24/2023 09:07:08 58 35-130 (U/ L) Final Bilirubin, Total 11/24/2023 09:07:08 0.3 <=1 .2 (mg/dL) Final Calcium 11/24/2023 09:07:08 9.0 8.4-10.2 ( mg/dL) Final Protein 11/24/2023 09:07:08 6.0 6.0-8.3 (g /dL) Final ALT (Alanine aminotransferase) 11/24/2023 09:07:08 13 10-35 (U/L) Abisai mcconnell Performing Location [facility] - [address] [facility] [address]
--- OUTSIDE RECORDS SUMMARY | 2024-01-15 19:57 | External Medical Summary | Summary of Care ---
Author Name Unknown Organization [facility] Address [address] [place] [facility] [place] [address] Phone [phone] Care Team Providers Care Printer'S Assistant Name Role Phone Kulwinder Byers MD Primary Care Provider [phone] Encounter Details Date Type Department Care Team (Late st Contact Info) Description 11/08/2023 Orders Only Hematology/Oncology, [facility] [address] [place] [address] Cate Graham MD [address] [place] [address] Allergies Active Allergy Reactions Criticality Noted Date Comments Adhesive Tape 05/28/2003 documented as of this encounter (statuses as of 11/08/2023) Medications Medication Sig Dispensed Refills Start Date [...] 30 Tab 0 12/25/2018 Active nystatin (NYSTOP) 685340 UNIT/GM powder Apply topically to affected area [...] as of this encounter (statuses as of 11/08/2023) Active Problems Problem Noted Date Diagnosed Date [...] as of this encounter (statuses as of 11/08/2023) Resolved Problems Problem Noted Date Diagnosed Date 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 Aortic valve stenosis 2021 documented as of this encounter (statuses as of 11/08/2023) Social History Tobacco Use Types Packs/Day Years [...] Care Team (Late st Contact Info) Description 11/11/2023 9:30 AM EST Hem/Onc Treatment Hematology/Oncology Treatment, [place] [address] [place] [address] 12/02/2023 9:15 AM EST Office Visit Hematology/Oncology [facility] [place] [address] [place] [address] Jorge [place] MD [address] [facility], [place] [address] 02/13/2024 2:00 PM EDT Office Visit Cardiology, [facility] [address] [place] [address] Katie Delong CRNP [address] [place] [address] Health Maintenance Due Date Last Done Comments [...] 10/19/2023, 11/15, 06/13/2020, Additional history exists GFR 11/02/2024 11/02/2023, 10/14, 10/19/2023, Additional history exists Pneumococcal Vaccine: 65+ Years Completed 02/18/2017, 01/12/2010 GARDASIL-HPV IMMUNIZATION SERIES Aged Out No longer eligible based on patient's age to complete this topic MENINGOCOCCAL (MENACTRA/MENVEO) Aged Out No longer eligible based on patient's age to complete this topic documented as of this encounter Medical Devices Implanted Type Area Child Care Sitter Device Identifier Shelf Expiration Date Model / Serial / Lot Comprehensive Srs/Nexel Distal Body Implanted:Qty: 1 on 12/23/2018 by Gautam Jasso MD at [facility] Right: Upper Arm 03/03/2028 [id number] / / [id number] Valve Ricky 3 Ultra 26mm - [id number] Implanted:Qty: 1 on 05/27/2022 by Jesús Weber MD at [facility]ARDIAC LABS [facility] [employer] [id number] 03/17/2023 [id number] / / Port Implant W/8f Poly Cath - [id number] Implanted:Qty: 1 on 12/29/2022 by Sudhir Lovett DO at OR [facility] Right: Chest CR BARD : PERIPHERAL VASCULAR [id number] 02/12/2024 [id number] / / [id number] documented as of this encounter Advance Directives Documents on File Type Date Recorded Patient Rn Baby Expl anation Power of Chief Chemist 12/12/2018 8:46 AM Vipin hcare Power of Chief Chemist Power of Chief Chemist 12/12/2018 8:45 AM Zuleyma ferguson Power of Chief Chemist Latest Code Status on File Code Status [...] the patient have Health Care Power of Chief Chemist? Yes, not currently available Full Code 11/21/2018 8:53 AM 11/21/2018 2:27 PM This or bull reflects the patients wishes and were consensually agreed upon. Care Teams Printer'S Assistant Relationship Specialty Start Date End Date Kulwinder Byers MD [address] [place] [address] PCP - General 06/28/03 documented as of this encounter
--- OUTSIDE RECORDS SUMMARY | 2024-01-15 19:57 | External Medical Summary | Summary of Care ---
Author Name Unknown Organization [facility] [address] [facility] [address] Phone [phone] Care Team Providers Care Application Integrator Name Role Phone Kulwinder Byers MD Primary Care Provider Reason for Visit * Reason Comments IV Therapy IVIG; hold chemo * Episode Based Medications (Routine) - Authorized Specialty Diagnoses / Procedures Referred By Contac t Referred To Contact Diagnoses Hypogammaglobulinemia (HCC) Multiple myeloma not having achieved remission (HCC) Procedures VA INJ IVIG PRIVIGEN 500 MG Jorge Allen MD [address] [place] [address] Anc Hem/Onc [place] DEPT CLOSED - 09/27/23 [address] [place] [address] Referral ID Status Reason Start Date Expiration Date V isits Requested Visits Authorized [id number] Authorized 10/04/2023 11/13/2099 999 999 Encounter Details Date Type Department Care Team (Latest Contact Info) Description 11/11/2023 9:30 AM EST Hem/Onc Treatment Hematology/Oncolo gy Treatment, [place] [address] [place] [address] Hypogammaglobulinemia (HCC)*; Multiple myeloma not having achieved [...] 30 Tab 0 12/25/2018 Active nystatin (NYSTOP) 699218 UNIT/GM powder Apply topically to affected area [...] encounter Nursing Notes * Sachi De La O RN - 11/11/2023 10:28 AM EST Chair [...] Care Team (Late st Contact Info) Description 11/18/2023 1:45 PM EST Hem/Onc Treatment Hematology/Oncology Treatment, [place] [address] [facility], [place] [address] Ritu, Chair 8 Hem Onc Scenery 200 [facility] [place] [address] 11/25/2023 1:45 PM EST Hem/Onc Treatment Hematology/Oncology Treatment, [place] [address] [facility], [place] [address] Ritu, Chair 1 Hem Onc Scenery 200 [facility] [place] [address] 12/02/2023 9:15 AM EST Office Visit Hematology/Oncology [place] [address] [facility] [place] [address] Jorge Allen MD [address] [facility] [place] [address] 12/02/2023 9:45 AM EST Hem/Onc Treatment Hematology/Oncology Treatment, [place] [address] [facility], [place] [address] Ritu, Chair 6 Hem Onc Scenery 200 [facility] [place], [place] [address] 12/09/2023 11:15 AM EST Hem/Onc Treatment Hematology/Oncology Treatment, [place] [address] [facility], [place] [address] Ritu, Chair 5 Hem Onc Scenery [address] [facility] [place], [place] [address] 02/13/2024 2:00 PM EDT [facility] [place] [address] [place] [address] Katie Delong CRNP [address] [place] [address] Health Maintenance Due Date Last Done Comments [...] this encounter Medical Devices Implanted Type Area Operations Examiner Device Identifier Shelf Expiration Date Model / Serial / Lot Comprehensive Srs/Nexel Distal Body Implanted:Qty: 1 on 12/23/2018 by Gautam Jasso MD at OR [facility] Right: Upper Arm 03/03/2028 [id number] / / [id number] Valve Ricky 3 Ultra 26mm - [id number] Implanted:Qty: 1 on 05/27/2022 by Jesús Weber MD at CARDIAC LABS [facility] [employer] [id number] 03/17/2023 [id number] / / Port Implant W/8f Poly Cath - [id number] Implanted:Qty: 1 on 12/29/2022 by Sudhir Lovett DO at OR [facility] Right: Chest CR BARD : PERIPHERAL VASCULAR [id number] 02/12/2024 [id number] / / [id number] documented as of this encounter Visit Diagnoses [...] IVIG, Starting on Tue11/11/23 at 1030, Until Discontinued, Maximum of 4 grams (4000 mg) per day. Given 11/11/2023 9:46 AM EST 650 mg Acetaminophen (Tylenol) tab 650 mg 650 mg, Oral, ONCE PRN Other, or Chills, Starting on Tue11/11/23 at 0928, Until 11/12/23 at 09, For 24 hours, Maximum of 4 grams (4000 mg) per day. 4 hours after initial dose. diphenhydrAMINE (Benadryl) cap 25 mg 25 mg, Oral, ONCE PRN If previous infusion reaction with IVIG, Starting on Tue11/11/23 at 1030, Until Discontinued Given 11/11/2023 9:46 AM EST 25 mg diphenhydrAMINE (Benadryl) cap 25 mg 25 mg, Oral, ONCE PRN Other, Fever/Chills, Starting on Tue11/11/23 at 0928, Until 11/12/23 at 09, For 24 hours, 4 hours after initial dose diphenhydrAMINE (Benadryl) inj 50 mg 50 mg, IV Push, ONCE PRN Other, Hypersensitivity Reaction, Starting on Tue11/11/23 at 0928, Until 11/12/23 at 09, For 24 hours EPINEPHrine 1 MG/ML inj 0.3 mg 0.3 mg, Intramuscular, ONCE PRN Other, Hypersensitivity Reaction or Anaphylaxis, Starting on Tue11/11/23 at 0928, Until 11/12/23 at 09, For 24 hours hEParin 100 UNIT/ML Lock Flush inj 500 Units 500 Units (5 mL), IV Lock, PRN Other, IV Flush, Starting on Tue11/11/23 at 0928, Until 11/12/23 at 09, For 24 hours, Do not flush if lock, PICC, or central line not in place; IV infusing or unable to flush. Given 11/11/2023 11:49 AM EST 500 Units Hydrocortisone Sod Suc (PF) (Solu-Cortef) inj 100 mg 100 mg, IV Push, ONCE PRN Other, Hypersensitivity Reaction, Starting on Tue11/11/23 at 0928, Until 11/12/23 at 0927, For 24 hours NSS infusion 500 mL, Intravenous, at 50 mL/hr, CONTINUOUS, Starting on Tue11/11/23 at 1030, Until Tue11/11/23 at 2028 Start Infusion 11/11/2023 9:20 AM EST 500 mL 50 mL/hr oxygen GAS Inhalation, OXYGEN, First dose on Tue11/11/23 at 1000, Until Discontinued, Device/Managed by: Low Flow Device, [...] Flush, Starting on Tue11/11/23 at 0928, Until 11/12/23 at 09, For 24 hours, Do not flush if lock, PICC, or central line not in place; IV infusing or unable to flush. Given 11/11/2023 11:49 AM EST 10 mL Inactive Administered Medications - up to 3 most recent administrations Medication Order MAR Action Action Date Dose Rate Site Immune Globulin Human- IVIG 10% (Privigen) IV [...] Change 11/11/2023 10:20 AM EST 42 mL/hr documented in this encounter Advance Directives Documents on File Type Date Recorded Patient Steam Drier Operator Expl anation Power of Commercial Field Inspector 12/12/2018 8:46 AM Vipin viveros Power of Commercial Field Inspector Power of Commercial Field Inspector 12/12/2018 8:45 AM Zuleyma ferguson Power of Commercial Field Inspector Latest Code Status on File Code Status [...] the patient have Health Care Power of Commercial Field Inspector? Yes, not currently available Full Code 11/21/2018 8:53 AM 11/21/2018 2:27 PM This or bull reflects the patients wishes and were consensually agreed upon. Care Teams Application Integrator Relationship Specialty Start Date End Date Kulwinder Byers MD [address] [address] PCP - General 06/28/03 documented as of this encounter
--- OUTSIDE RECORDS SUMMARY | 2024-01-15 19:57 | External Medical Summary ---
Author Name Unknown Address Unknown Organization [id number]:LABORATORY [place] [address] [place] [address] Laboratory Report Ordering Provider Test Date Status WOOD CANTU 11/24/2023 09:07:08 Final Observation Date Value Abnormality Reference (Units ) Status WBC, Total 11/24/2023 09:07:08 2.64 Below low normal 4.00-10.80 (K/uL) Final RBC 11/24/2023 09:07:08 3.55 3.85-5.15 (M/uL) Final Hemoglobin 11/24/2023 09:07:08 11.6 Below low normal 12.0-15.3 (g/dL) Final HCT 11/24/2023 09:07:08 36.2 36.0-45.2 (%) Final MCV 11/24/2023 09:07:08 102.0 81.5-97.5 (fL) Final MCH 11/24/2023 09:07:08 32.7 27.0-34.0 (pg) Final MCHC 11/24/2023 09:07:08 32.0 32.0-36.0 (g/dL) Final RDW 11/24/2023 09:07:08 16.8 11.5-15.5 (%) Final Platelets 11/24/2023 09:07:08 110 Below low normal 140-400 (K/uL) Final MPV 11/24/2023 09:07:08 11.7 6.6-11.1 (fL) Final Nucleated erythrocytes/100 leukocytes [Ratio] in Blood by Automated count 11/24/2023 09:07:08 0 <=0 (/100 WBCs) Final Performing Location [facility] [place] [facility] [address] [place] [address]
--- OUTSIDE RECORDS SUMMARY | 2024-01-15 19:57 | External Medical Summary | Summary of Care ---
Author Name Unknown Organization [facility] Address [address] [facility] [place] [address] Phone [phone] Care Team Providers Care Peer Health Promoter Name Role Phone Kulwinder Byers MD Primary Care Provider Encounter Details Date Type Department Care Team (Late st Contact Info) Description 11/08/2023 Orders Only Hematology/Oncology, [facility] [address] [place] [address] Cate Graham MD [address] [place] [address] Allergies Active Allergy Reactions Criticality [...] 30 Tab 0 12/25/2018 Active nystatin (NYSTOP) 929381 UNIT/GM powder Apply topically to affected area [...] 1:45 PM EST Hem/Onc Treatment Hematology/Oncology Treatment, [place] [address] [place] [address] Ritu, Chair 8 Hem Onc Scenery [address] [place] [address] 11/25/2023 1:45 PM EST Hem/Onc Treatment Hematology/Oncology Treatment, [place] [address] [place] [address] Ritu, Chair 1 Hem Onc Scenery 200 [facility] [place] [address] 12/02/2023 9:15 AM EST Office Visit Hematology/Oncology [place]enery [place] [address] [facility] [place], [place] [address] Jorge Allen MD [address] [place] [address] 12/02/2023 9:45 AM EST Hem/Onc Treatment Hematology/Oncology Treatment, [place] [address] [place] [address] Ritu, Chair 6 Hem Onc Scenery 200 [facility] [place], [place] [address] 12/09/2023 11:15 AM EST Hem/Onc Treatment Hematology/Oncology Treatment, [address] [place] [address] Ritu, Chair 5 Hem Onc Scenery 200 [facility] [place] [address] 02/13/2024 2:00 PM EDT Office Visit Cardiology, [facility] [address] [place] [address] Katie Delong CRNP [address] [facility] [place] [address] Health Maintenance Due Date Last Done Comments [...] this encounter Medical Devices Implanted Type Area Pony Trimmer Device Identifier Shelf Expiration Date Model / Serial / Lot Comprehensive Srs/Nexel Distal Body Implanted:Qty: 1 on 12/23/2018 by Gautam Jasso MD at OR [facility] Right: Upper Arm 03/03/2028 [id number] / / [id number] Valve Ricky 3 Ultra 26mm - [id number] Implanted:Qty: 1 on 05/27/2022 by Jesús Weber MD at CARDIAC LABS [facility] [employer] [id number] 03/17/2023 [id number] / / Port Implant W/8f Poly Cath - [id number] Implanted:Qty: 1 on 12/29/2022 by Sudhir Lovett DO at OR [facility] Right: Chest CR BARD : PERIPHERAL VASCULAR [id number] 02/12/2024 [id number] / / [id number] documented as of this encounter Advance Directives Documents on File Type Date Recorded 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 Yes, not currently available Full Code 11/21/2018 8:53 AM 11/21/2018 2:27 PM This or bull reflects the patients wishes and were consensually agreed upon. Care Teams Peer Health Promoter Relationship Specialty Start Date End Date Kulwinder Byers MD [address] [place] [address] PCP - General 06/28/03 documented as of this encounter
--- OUTSIDE RECORDS SUMMARY | 2024-01-15 19:57 | External Medical Summary ---
Author Name Unknown Address Unknown Organization [id number]:[facility] [place] [address] [facility] [place] [address] Laboratory Report Ordering Provider Test Date Status WOOD CANTU 12/01/2023 15:00:00 Final Observation Date Value Abnormality Reference (Units ) Status BUN 12/01/2023 15:00:00 21 Above high normal 6-20 (mg/dL) Final Creatinine 12/01/2023 15:00:00 0.8 0.5-1.0 (mg/dL) Final Glomerular filtration rate/1.73 sq M.predicted [Volume Rate/Area] in Serum, Plasma or Blood by Creatinine-based formula (CKD-EPI) 12/01/2023 15:00:00 72 >=60 (mL/min) Final eGFR is calculated based on the CKD-EPI 2020 equation SODIUM 12/01/2023 15:00:00 139 135-146 (m mol/L) Final Potassium 12/01/2023 15:00:00 4.3 3.5-5.1 (m mol/L) Final Cl 12/01/2023 15:00:00 104 98-107 (mm ol/L) Final CO2 12/01/2023 15:00:00 24 22-32 (mmo l/L) Final Anion gap 12/01/2023 15:00:00 11 7-15 (mmol /L) Final Glucose 12/01/2023 15:00:00 166 Above high normal 70 -120 (mg/dL) Final Albumin 12/01/2023 15:00:00 3.6 Below low normal 3.8 -5.0 (g/dL) Final AST (Aspartate aminotransferase) 12/01/2023 15:00:00 13 10-35 (U/L) Fin al Alk Phos 12/01/2023 15:00:00 54 35-130 (U/ L) Final Bilirubin, Total 12/01/2023 15:00:00 0.3 <=1 .2 (mg/dL) Final Calcium 12/01/2023 15:00:00 8.8 8.4-10.2 ( mg/dL) Final Protein 12/01/2023 15:00:00 5.5 Below low normal 6.0 -8.3 (g/dL) Final ALT (Alanine aminotransferase) 12/01/2023 15:00:00 14 10-35 (U/L) Abisai mcconnell Performing Location [facility] [place] [address] [facility] [address]
--- OUTSIDE RECORDS SUMMARY | 2024-01-15 19:57 | External Medical Summary ---
Author Name Unknown Address Unknown Organization K01:LABORATORY [facility] [place] - 100 [facility] [place] [address] Laboratory Report Ordering Provider Test Date Status WOOD CANTU 11/24/2023 09:07:08 Final Observation Date Value Abnormality Reference (Units) Status PARAPROTEIN NORMAL/ABNORMAL 4 09:07:08 Abnormal Abnormal Normal Final Protein 4 09:07:08 6.0 6.0-8.3 (g/dL) Final Albumin/Protein.tota l [Pure mass fraction] in Serum or Plasma by Electrophoresis 4 09:07:08 3.03 Below low normal 3.30-4.40 (g/dL) Final Alpha 1 globulin/Protein.tot al [Pure mass fraction] in Serum or Plasma by Electrophoresis 4 09:07:08 0.22 0.10-0.30 (g/dL) Final Alpha 2 globulin/Protein.tot al [Pure mass fraction] in Serum or Plasma by Electrophoresis 4 09:07:08 0.98 0.60-1.00 (g/dL) Final Beta globulin/Protein.tot al [Pure mass fraction] in Serum or Plasma by Electrophoresis 4 09:07:08 1.10 0.80-1.30 (g/dL) Final Gamma globulin/Protein.tot al [Pure mass fraction] in Serum or Plasma by Electrophoresis 4 09:07:08 0.67 Below low normal 0.70-1.70 (g/dL) Final Protein Fractions [Interpretation] in Serum or Plasma by Electrophoresis Narrative 4 09:07:08 Abnormal. 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 Decreased gamma fraction. Unable to reliably identify or accurately quantify the paraprotein due to its comigration in the beta region.Please order serum free light chains, beta-2 microglobulin, and a quantitative immunoglobulins for disease monitoring. Final Performing Location LABORATORY [facility] - [address] [facility] [address]
--- OUTSIDE RECORDS SUMMARY | 2024-01-15 19:57 | External Medical Summary ---
Author Name Unknown Address Unknown Organization K01:[facility]ORY [facility] [place] [address] [facility] [place] [address] Laboratory Report Ordering Provider Test Date Status WOOD CANTU 11/24/2023 09:07:08 Final Observation Date Value Abnormality Reference (Units ) Status SYNC LEUKOCYTES IN BLOOD BY AUTOMATED COUNT 11/24/2023 09:07:08 2.64 Below low normal 4.00-10.80 (K/uL) Final Segs 11/24/2023 09:07:08 67.4 40.0-75.0 (%) Final Lymphs % 11/24/2023 09:07:08 8.3 Below low normal 18.0-42.0 (%) Final Monos 11/24/2023 09:07:08 19.7 Above high normal 1.0-11.0 (%) Final Eosinophils 11/24/2023 09:07:08 4.2 0.0-6.0 (%) Final Basos 11/24/2023 09:07:08 0.0 0.0-2.0 (%) Final Immature Granulocyte, Percent 11/24/2023 09:07:08 0.4 0.0-2.0 (%) Final Absolute Segs 11/24/2023 09:07:08 1.78 Below low normal 1.80-7.70 (K/uL) Final Lymphs, absolute 11/24/2023 09:07:08 0.22 Below low normal 1.00-4.80 (K/ul) Final Monos, Abs 11/24/2023 09:07:08 0.52 0.00-1.10 (K/uL) Final Eos, Abs 11/24/2023 09:07:08 0.11 0.00-0.70 (K/uL) Final Basos, Abs 11/24/2023 09:07:08 0.00 0.00-0.20 (K/uL) Final Immature Granulocytes, Number 11/24/2023 09:07:08 0.01 0.00-0.20 (K/uL) Final Performing Location [facility]ORY [facility] [place] - [facility] [address] [facility] [address]
--- OUTSIDE RECORDS SUMMARY | 2024-01-15 19:57 | External Medical Summary ---
Author Name Unknown Address Unknown Organization K0G:LABORATORY [facility] [place] [address] - [address] [place] [address] Laboratory Report Ordering Provider Test Date Status WOOD CANTU 11/11/2023 04:50:00 Final Observation Date Value Abnormality Reference (Units ) Status BUN 11/11/2023 04:50:00 17 6-20 (mg/dL) Final Creatinine 11/11/2023 04:50:00 0.8 0.5-1.0 (mg/dL) Final Glomerular filtration rate/1.73 sq M.predicted [Volume Rate/Area] in Serum, Plasma or Blood by Creatinine-based formula (CKD-EPI) 11/11/2023 04:50:00 69 >=60 (mL/min) Final eGFR is calculated based on the CKD-EPI 2020 equation SODIUM 11/11/2023 04:50:00 140 135-146 (m mol/L) Final Potassium 11/11/2023 04:50:00 4.3 3.5-5.1 (m mol/L) Final Cl 11/11/2023 04:50:00 106 98-107 (mm ol/L) Final CO2 11/11/2023 04:50:00 24 22-32 (mmo l/L) Final Anion gap 11/11/2023 04:50:00 10 7-15 (mmol /L) Final Glucose 11/11/2023 04:50:00 122 Above high normal 70 -120 (mg/dL) Final Albumin 11/11/2023 04:50:00 3.4 Below low normal 3.8 -5.0 (g/dL) Final AST (Aspartate aminotransferase) 11/11/2023 04:50:00 16 10-35 (U/L) Fin al Alk Phos 11/11/2023 04:50:00 54 35-130 (U/ L) Final Bilirubin, Total 11/11/2023 04:50:00 0.3 <=1 .2 (mg/dL) Final Calcium 11/11/2023 04:50:00 8.7 8.4-10.2 ( mg/dL) Final Protein 11/11/2023 04:50:00 5.9 Below low normal 6.0 -8.3 (g/dL) Final ALT (Alanine aminotransferase) 11/11/2023 04:50:00 15 10-35 (U/L) Abisai mcconnell Performing Location LABORATORY [place] [address] - [address] [facility] [address]
--- OUTSIDE RECORDS SUMMARY | 2024-01-15 19:57 | External Medical Summary | Summary of Care ---
Author Name Unknown Organization [facility] Address [address] [facility] [place] [address] Phone [phone] Care Team Providers Care Change Over Name Role Phone Kulwinder Byers MD Primary Care Provider [phone] Reason for Visit * Reason Comments Chemotherapy Cytoxan. Medication Administration Xgeva. * Episode Based Medications (Routine) - Authorized Specialty Diagnoses / Procedures Referred By Contac t Referred To Contact Diagnoses Multiple myeloma not having achieved remission (HCC) Procedures NM DARATUMUMAB, HYALURONIDASE NM CYCLOPHOSPHAMIDE 100 MG INJ Jorge Allen MD [address] [place] [address] Anc Hem/Onc Scenery Ritu DEPT CLOSED - 09/27/23 [address] [place] [address] Referral ID Status Reason Start Date Expiration Date V isits Requested Visits Authorized [id number] Authorized 07/23/2022 11/13/2099 999 99 Encounter Details Date Type Department Care Team (Latest Contact Info) Description 11/25/2023 1:45 PM EST Hem/Onc Treatment Hematology/Oncolog y Treatment, [place] [address] [place] [address] Ritu, Chair 1 Hem Onc Scenery [address] [place] [id number] Multiple myeloma not having achieved remission (HCC)*; Encounter for antineoplastic chemotherapy Allergies Active Allergy Reactions Criticality Noted Date Comments Adhesive Tape 05/28/2003 documented as of this encounter (statuses as of 11/29/2023) Medications Medication Sig Dispensed Refills Start Date [...] 30 Tab 0 12/25/2018 Active nystatin (NYSTOP) 770485 UNIT/GM powder Apply topically to affected area [...] as of this encounter (statuses as of 11/29/2023) Active Problems Problem Noted Date Diagnosed Date [...] as of this encounter (statuses as of 11/29/2023) Resolved Problems Problem Noted Date Diagnosed Date 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 Aortic valve stenosis 2021 documented as of this encounter (statuses as of 11/29/2023) Social History Tobacco Use Types Packs/Day Years [...] 12/02/2023 9:15 AM EST Office Visit Hematology/Oncology [address] [place] [address] Jorge Allen MD [address] [place] [address] [place] [address] 12/02/2023 9:45 AM EST Hem/Onc Treatment Hematology/[address], [address] [address] Ritu, Chair 6 Hem On[address] [place] [address] 12/09/2023 11:15 AM EST Hem/Onc Treatment Hematology/Oncology Treatment, [address] [address] Ritu, Chair 5 Hem Onc [address] [place] [address] Health Maintenance Due Date Last Done Comments [...] this encounter Medical Devices Implanted Type Area Head Of Global Strategic Partnerships Device Identifier Shelf Expiration Date Model / Serial / Lot Comprehensive Srs/Nexel Distal Body Implanted:Qty: 1 on 12/23/2018 by Gautam Jasso MD [place] [facility] [place]: Upper Arm 03/03/2028 [id number] / / [id number] Valve Ricky 3 Ultra 26mm - [id number] Implanted:Qty: 1 on 05/27/2022 by Jesús Weber MD [place] [facility] [employer] [id number] 03/17/2023 [id number] / / Port Implant W/8f Poly Cath - [id number] Implanted:Qty: 1 on 12/29/2022 by Sudhir Lovett DO at OR [facility] Right: Chest CR BARD : PERIPHERAL VASCULAR [id number] 02/12/2024 [id number] / / [id number] documented as of this encounter Visit Diagnoses [...] Documents on File Type Date Recorded 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 Yes, not currently available Full Code 11/21/2018 8:53 AM 11/21/2018 2:27 PM This or bull reflects the patients wishes and were consensually agreed upon. Care Teams Change Over Relationship Specialty Start Date End Date Kulwinder Byers MD [address] [place] [address] PCP - General 06/28/03 documented as of this encounter
--- OUTSIDE RECORDS SUMMARY | 2024-01-15 19:57 | External Medical Summary ---
Author Name Unknown Address Unknown Organization K01:LABORATORY [facility] - [facility] [address] [facility] [address] [place] [address] Laboratory Report Ordering Provider Test Date Status WOOD CANTU 11/24/2023 09:07:08 Final Observation Date Value Abnormality Reference (Units ) Status [place] light chains, Free, Serum 11/24/2023 09:07:08 17.62 3.30-19.40 (mg/L) Final [place] light chains, free, Serum 11/24/2023 09:07:08 1.76 Below low normal 5.71-26.30 (mg/L) Final KAPPA LAMBDA FLC RATIO 11/24/2023 09:07:08 10.01 Above high normal 0.26-1.65 Final Performing Location LABORATORY [facility] - [facility] [address] [place] [address]
--- OUTSIDE RECORDS SUMMARY | 2024-01-15 19:57 | External Medical Summary | Summary of Care ---
Author Name Unknown Organization [facility] Address [address] [facility] [place] [address] Phone [phone] Care Team Providers Care President Sales And Marketing Name Role Phone Kulwinder Byers MD Primary Care Provider Reason for Visit * Reason Comments Chemotherapy Cytoxan. Medication Administration Xgeva. * Episode Based Medications (Routine) - Authorized Specialty Diagnoses / Procedures Referred By Contac t Referred To Contact Diagnoses Multiple myeloma not having achieved remission (HCC) Procedures NE DARATUMUMAB, HYALURONIDASE NE CYCLOPHOSPHAMIDE 100 MG INJ Jorge Allen MD [address] [place] [address] Anc Hem/Onc Scenery Ritu DEPT CLOSED - 09/27/23 [address] [place] [address] Referral ID Status Reason Start Date Expiration Date V isits Requested Visits Authorized [id number] Authorized 07/23/2022 11/13/2099 999 [id number] Encounter Details Date Type Department Care Team (Latest Contact Info) Description 11/25/2023 1:45 PM EST Hem/Onc Treatment Hematology/Oncolog y Treatment, [place] [address] [place] [address] Ritu, Chair 1 Hem Onc Scenery [address] [place] [id number] Multiple myeloma not having achieved remission (HCC)*; Encounter for antineoplastic chemotherapy Allergies Active Allergy Reactions Criticality Noted Date Comments Adhesive Tape 05/28/2003 documented as of this encounter (statuses as of 11/25/2023) Medications Medication Sig Dispensed Refills Start Date [...] 30 Tab 0 12/25/2018 Active nystatin (NYSTOP) 163132 UNIT/GM powder Apply topically to affected area [...] as of this encounter (statuses as of 11/25/2023) Active Problems Problem Noted Date Diagnosed Date [...] as of this encounter (statuses as of 11/25/2023) Resolved Problems Problem Noted Date Diagnosed Date 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 [address] 12/02/2023 9:45 AM EST Hem/Onc Treatment Hematology/[address], [address] [address] Ritu, Chair 6 Hem [address] [place] [address] 12/09/2023 11:15 AM EST Hem/Onc Treatment Hematology/Oncology [address], [address] [address] Ritu, Chair 5 Hem Onc [address] [place] [address] 02/13/2024 2:00 PM EDT Office Visit [facility], [facility] [place] [address] Katie Delong CRNP [address] [place] [address] Health Maintenance Due Date Last Done Comments [...] this encounter Medical Devices Implanted Type Area Teachers' Aide Device Identifier Shelf Expiration Date Model / Serial / Lot Comprehensive Srs/Nexel Distal Body Implanted:Qty: 1 on 12/23/2018 by Gautam Jasso MD at [place] [facility] [place] Right: Upper Arm 03/03/2028 [id number] / / [id number] Valve Ricky 3 Ultra 26mm - [id number] Implanted:Qty: 1 on 05/27/2022 by Jesús Weber MD at [facility] [place] [employer] [id number] 03/17/2023 [id number] / / Port Implant W/8f Poly Cath - [id number] Implanted:Qty: 1 on 12/29/2022 by Sudhir Lovett DO at OR [facility] Right: Chest CR BARD : PERIPHERAL VASCULAR [id number] 02/12/2024 [id number] / / [id number] documented as of this encounter Visit Diagnoses [...] ONCE PRN Other, Hypersensitivity Reaction, Starting on Tue11/25/23 at 1337, Until 11/26/23 at 1336, For 24 hours EPINEPHrine 1 MG/ML inj 0.3 mg 0.3 mg, Intramuscular, ONCE PRN Other, Hypersensitivity Reaction or Anaphylaxis, Starting on Tue11/25/23 at 1337, Until 11/26/23 at 1336, For 24 hours hEParin 100 UNIT/ML Lock Flush inj 500 Units 500 Units (5 mL), IV Lock, PRN Other, IV Flush, Starting on Tue11/25/23 at 1337, Until 11/26/23 at 1336, For 24 hours, Do not flush if lock, PICC, or central line not in place; IV infusing or unable to flush. Given 11/25/2023 3:10 PM EST 500 Units Hydrocortisone Sod Suc (PF) (Solu-Cortef) inj 100 mg 100 mg, IV Push, ONCE PRN Other, Hypersensitivity Reaction, Starting on Tue11/25/23 at 1337, Until 11/26/23 at 1336, For 24 hours sodium chloride 0.9 % flush central line 10 mL 10 mL, IV Push, PRN Other, IV Flush, Starting on Tue11/25/23 at 1337, Until 11/26/23 at 1336, For 24 hours, Do not flush if lock, PICC, or central line not in place; IV infusing or unable to flush. 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 Yes, not currently available Full Code 11/21/2018 8:53 AM 11/21/2018 2:27 PM This or bull reflects the patients wishes and were consensually agreed upon. Care Teams President Sales And Marketing Relationship Specialty Start Date End Date Kulwinder Byers MD [address] [address] PCP - General 06/28/03 documented as of this encounter
--- OUTSIDE RECORDS SUMMARY | 2024-01-15 19:57 | External Medical Summary ---
Author Name Unknown Address Unknown Organization K01:[facility] - [address] [place] [address] Laboratory Report Ordering Provider Test Date Status WOOD CANTU 11/24/2023 09:07:08 Final Observation Date Value Abnormality Reference (Units ) Status IgG 11/24/2023 09:07:08 677 Below low normal 700 -1600 (mg/dL) Final IgA 11/24/2023 09:07:08 394 70-400 (mg /dL) Final IgM 11/24/2023 09:07:08 11 Below low normal 40- 230 (mg/dL) Final Performing Location [facility] - [address] [place] [address]
--- OUTSIDE RECORDS SUMMARY | 2024-01-15 19:57 | External Medical Summary | Summary of Care ---
Author Name Unknown Organization [facility] [address] [facility] [address] Phone [phone] Care Team Providers Care Director Advanced Name Role Phone Kulwinder Byers MD Primary Care Provider [phone] Reason for Visit * Reason Comments Outpatient Testing Encounter Details Date Type Department Care Team (Late st Contact Info) Description 11/11/2023 8:00 AM EST Laboratory Laboratory, [facility] [address] [facility] [place] [address] [place], Specimen Drop Off [facility] 132 [facility] [place] [address] Multiple myeloma not having achieved remission (HCC) [...] 30 Tab 0 12/25/2018 Active nystatin (NYSTOP) 158414 UNIT/GM powder Apply topically to affected area [...] 9:30 AM EST Hem/Onc Treatment Hematology/Oncology Treatment, [place] [address] [place] [address] 12/02/2023 9:15 AM EST Office Visit Hematology/Oncology [facility] 200 [facility] [place] [address] Jorge Allen MD 200 [facility] [place] [address] 02/13/2024 2:00 PM EDT Office Visit Cardiology, [facility] [address] [facility] [place] [address] Katie Delong CRNP [address] [place] [address] Pending Results Name Type Priority Associated Diagnoses Date /Time CBC WITH WBC DIFFERENTIAL Lab STAT Multiple myeloma not having achieved remission (HCC) 11/11/2023 4:50 AM EST COMPREHENSIVE METABOLIC PANEL Lab STAT Multiple myeloma not having achieved remission (HCC) 11/11/2023 4:50 AM EST CBC Lab STAT Multiple myeloma not having achieved remission (HCC) 11/11/2023 4:50 AM EST DIFFERENTIAL, AUTOMATED Lab STAT Multiple myeloma not having achieved remission (HCC) 11/11/2023 4:50 AM EST Health Maintenance Due Date Last [...] 12/23/2018 by Gautam Jasso MD at OR [facility] Right: Upper Arm 03/03/2028 [id number] / / [id number] Valve Ricky 3 Ultra 26mm - [id number] Implanted:Qty: 1 on 05/27/2022 by Jesús Weber MD at CARDIAC LABS [facility] [place] [employer] [id number] 03/17/2023 [id number] / / Port Implant W/8f Poly Cath - [id number] Implanted:Qty: 1 on 12/29/2022 by Sudhir Loevtt DO at OR [facility] Right: Chest CR BARD : PERIPHERAL VASCULAR [id number] 02/12/2024 [id number] / / [id number] documented as of this encounter Visit Diagnoses Diagnosis Multiple myeloma not having achieved remission (HCC) Multiple myeloma, without mention of having achieved remission documented in this encounter Advance Directives Documents on File Type Date Recorded 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 Yes, not currently available Full Code 11/21/2018 8:53 AM 11/21/2018 2:27 PM This or bull reflects the patients wishes and were consensually agreed upon. Care Teams Director Advanced Relationship Specialty Start Date End Date Kulwinder Byers MD [address] [address] PCP - General 06/28/03 documented as of this encounter
--- OUTSIDE RECORDS SUMMARY | 2024-01-15 19:57 | External Medical Summary ---
Author Name Unknown Address Unknown Organization [facility] [address] [place] [address] Laboratory Report Ordering Provider Test Date Status WOOD CANTU 11/11/2023 04:50:00 Final Observation Date Value Abnormality Reference (Units ) Status WBC, Total 11/11/2023 04:50:00 2.37 Below low normal 4. 00-10.80 (K/uL) Final RBC 11/11/2023 04:50:00 3.30 3.85-5.15 (M/uL) Final Hemoglobin 11/11/2023 04:50:00 10.9 Below low normal 12 .0-15.3 (g/dL) Final HCT 11/11/2023 04:50:00 33.0 Below low normal 36. 0-45.2 (%) Final MCV 11/11/2023 04:50:00 100.0 81.5-97.5 (fL) Final MCH 11/11/2023 04:50:00 33.0 27.0-34.0 (pg) Final MCHC 11/11/2023 04:50:00 33.0 32.0-36.0 (g/dL) Final RDW 11/11/2023 04:50:00 16.4 11.5-15.5 (%) Final Platelets 11/11/2023 04:50:00 118 Below low normal 140 -400 (K/uL) Final MPV 11/11/2023 04:50:00 12.7 6.6-11.1 ( fL) Final Performing Location [facility] - [address] [place] [address]
--- OUTSIDE RECORDS SUMMARY | 2024-01-15 19:57 | External Medical Summary | Summary of Care ---
Author Name Unknown Organization [facility] Address [address] [facility] [place] [address] Phone [phone] Care Team Providers Care Brinell Tester Name Role Phone Kulwinder Byers MD Primary Care Provider [phone] Reason for Visit * Reason Onset Date Comments Precert Future 10/04/2023 privigen Encounter Details Date Type Department Care Team (Late st Contact Info) Description 10/04/2023 Telephone Hematology/Oncology Treatment, [place] [address] [place] [address] Jorge Allen MD 200 [place] [address] Precert Future (privigen) Allergies Active Allergy Reactions Criticality Noted Date Comments Adhesive Tape 05/28/2003 documented as of this encounter (statuses as of 11/19/2023) Medications Medication Sig Dispensed Refills Start Date [...] 30 Tab 0 12/25/2018 Active nystatin (NYSTOP) 286693 UNIT/GM powder Apply topically to affected area [...] myeloma not having achieved remission (HCC),Hypophosphat emia TAKE BY MOUTH 1 TABLET 2 TIMES A DAY . 180 Tablet 1 07/01/2022 3 Discontinue d(Refill) Dexamethasone 4 MG Oral Tablet (Decadron)Indicati ons:Multiple myeloma not having achieved remission (HCC) Take 20mg once a week 60 Tablet 1 09/16/2022 3 Discontinue d(Refill) Potassium Chloride ER 10 MEQ Oral Tablet Extended ReleaseIndications :Multiple myeloma not having achieved remission (HCC),Hypokalemia TAKE BY MOUTH 1 TABLET IN THE MORNING AND 1 TABLET IN THE EVENING BEFORE BEDTIME. 180 Tablet 0 06/06/2023 3 Discontinue d(Refill) oxyCODONE HCl 5 MG Oral Tablet (Oxy IR)Indications:Mul tiple myeloma not having achieved remission (HCC) Take 1 Tablet by mouth every 6 hours as needed for Pain, Breakthrough. 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 Decided to proceed with intravenous immunoglobulin to prevent the recurrent infection in her case. * Telephone Encounter - Shyla Walters OSA - 10/05/2023 2:22 PM EST Spoke to patient, scheduled 10/14/23 @ 9:00 am. Patient said the home lab would draw her on Jujezfsm57/30/23. * Addendum Note - Cherelle Quick RN - 10/05/2023 1:48 PM ESTAddended by: CHERELLE QUICK on: 10/05/2023 01:48 PM Modules accepted: Orders * Telephone Encounter - Cherelle Quick RN - 10/05/2023 1:11 PM EST Referral entered. Called patient- she is aware of infusions. She states that she saw her PCP earlier this week and they started her on albuterol. She would like to CANCEL appt Sunday 10/07 and reschedule for next weekwhen she can have both chemo and privigen. Advised her that she will need a warehouse delivery driver for first privigen infusion. Clarified with Dr Allen- he would like to cancel remaining days in current cycle and start new cycle next week as patient will be due for darzalex next week. Scheduling: - please cancel appt Sunday 10/07 - please call patient to schedule appt for next Tuesday10/14/23- 8 hour appt "[id number] darzalex faspro/cytoxan/ privigen" Please remind patient that she will need lab work the day prior (so that she can make arrangements with [facility]) and remind her that she will need a warehouse delivery driver for this appointment (already told her this- but please reinforce it) Thanks! * Telephone Encounter - Cherelle Quick RN - 10/04/2023 12:37 PM EST Order received for privigen. [place] plan built and routed for signature. Waiting for auth. documented in this encounter Plan of Treatment Upcoming Encounters Date Type Department Care Team (Late st Contact Info) Description 11/25/2023 1:45 PM EST Hem/Onc Treatment Hematology/Oncology Treatment, [place] 200 [place] [address] Ritu, Chair 1 Hem Onc Scenery 200 [facility] [place] [address] 12/02/2023 9:15 AM EST Office Visit Hematology/Oncology [facility] 200 [facility] [place] [address] Jorge Allen MD [address] [place], [place] [address] 12/02/2023 9:45 AM EST Hem/Onc Treatment Hematology/Oncology Treatment, [address], [place] [address] Ritu, Chair 6 Hem Onc Scenery 200 [facility] [place], [place] [address] 12/09/2023 11:15 AM EST Hem/Onc Treatment Hematology/Oncology Treatment, [address], [place] [address] Ritu, Chair 5 Hem Onc Scenery 200 [facility] [place], [place] [address] 02/13/2024 2:00 PM EDT Office Visit [facility] [place] [address] Katie Delong CRNP [address] [place] [address] Health Maintenance Due Date Last Done Comments [...] this encounter Medical Devices Implanted Type Area [employer] Device Identifier Shelf Expiration Date Model / Serial / Lot Comprehensive Srs/Nexel Distal Body Implanted:Qty: 1 on 12/23/2018 by Gautam Jasso MD [place] [facility] [place]: Upper Arm 03/03/2028 [id number] / / [id number] Valve Ricky 3 Ultra 26mm - [id number] Implanted:Qty: 1 on 05/27/2022 by Jesús Weber MD at [facility] [place] [employer] [id number] 03/17/2023 [id number] / / Port Implant W/8f Poly Cath - [id number] Implanted:Qty: 1 on 12/29/2022 by Sudhir Lovett DO at OR [facility] Right: Chest CR BARD : PERIPHERAL VASCULAR [id number] 02/12/2024 [id number] / / [id number] documented as of this encounter Advance Directives Documents on File Type Date Recorded Patient Return Checker Expl anation Power of Organ Pipe Maker Metal 12/12/2018 8:46 AM Healt hcare Power of Organ Pipe Maker Metal Power of Organ Pipe Maker Metal 12/12/2018 8:45 AM Zuleyma ferguson Power of Organ Pipe Maker Metal Latest Code Status on File Code Status [...] the patient have Health Care Power of Organ Pipe Maker Metal? Yes, not currently available Full Code 11/21/2018 8:53 AM 11/21/2018 2:27 PM This or bull reflects the patients wishes and were consensually agreed upon. Care Teams Brinell Tester Relationship Specialty Start Date End Date Kulwinder Byers MD [address] [place] [address] PCP - General 06/28/03 documented as of this encounter
--- OUTSIDE RECORDS SUMMARY | 2024-01-15 19:57 | External Medical Summary | Summary of Care ---
Author Name Unknown Organization [facility] Address [address] [place] [address] Phone [phone] Care Team Providers Care Software Sales Manager Name Role Phone Kulwinder Byers MD Primary Care Provider [phone] Reason for Visit * Reason Onset Date Comments Appointment 11/16/2023 No Provider Encounter Details Date Type Department Care Team (Late st Contact Info) Description 11/16/2023 Telephone Hematology/Oncology [facility] [place] [address] [facility] [address] [facility], Scheduling [address] [place] [address] Appointment (No Provider) Allergies Active Allergy Reactions Criticality Noted Date Comments Adhesive Tape 05/28/2003 documented as of this encounter (statuses as of 11/16/2023) Medications Medication Sig Dispensed Refills Start Date [...] 30 Tab 0 12/25/2018 Active nystatin (NYSTOP) 353122 UNIT/GM powder Apply topically to affected area [...] as of this encounter (statuses as of 11/16/2023) Active Problems Problem Noted Date Diagnosed Date [...] as of this encounter (statuses as of 11/16/2023) Resolved Problems Problem Noted Date Diagnosed Date 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 * Telephone Encounter - Love Quick RN - 11/16/2023 3:20 PM EST Called and spoke to patient. She notes that she has had diarrhea (combination of liquid/ loose stool) x3 times today. She has not taken imodium yet. This is not unusual for her to have some diarrhea, usually controlled by imodium but she was waiting until she had the 3rd episode to take imodium so will take it now. She also notes that she still has a cold- cough, sneezing, etc. Per chart review, she had been advised last week that is symptoms continued to call PCP. She has not called PCP yet, but states that she will do so to schedule acute visit. Advised patient that we will cancel 11/18/23 appt, reviewed appt scheduled 11/25/23. She verbalized understanding. Scheduling: please cancel 11/18 appt. Thanks! * Telephone Encounter - Love Quick RN - 11/16/2023 2:47 PM EST Attempted to call patient- busy signal. Patient already has appt scheduled 11/25/23. Will talk to patient before cancelling 11/18/23 appt. * Telephone Encounter - Adelaide Chacon OSA - 11/16/2023 2:40 PM EST Pt cancelling her 11/18 treatment appt due to illness and needs a callback to reschedule. Phone number is [phone] documented in this encounter Plan of Treatment Upcoming Encounters Date Type Department Care Team (Late st Contact Info) Description 11/25/2023 1:45 PM EST Hem/Onc Treatment Hematology/Oncology Treatment, [place] [address] [place] [address] Ritu, Chair 1 Hem Onc Scenery [address] [facility] [address] 12/02/2023 9:15 AM EST Office Visit Hematology/Oncology [place], [place] [address] [place] [address] Jorge Allen MD [address] [place], [place] [address] 12/02/2023 9:45 AM EST Hem/Onc Treatment Hematology/Oncology Treatment, [place] 200 [facility], [place] [address] Ritu, Chair 6 Hem Onc Scenery 200 [facility] [place], [place] [address] 12/09/2023 11:15 AM EST Hem/Onc Treatment Hematology/Oncology Treatment, [place] 200 [facility], [place] [address] Ritu, Chair 5 Hem Onc [facility] 200 [facility] [place], [place] [address] 02/13/2024 2:00 PM EDT Office Visit Cardiology, [facility] [address] [facility] [place] [address] Katie Delong CRNP [address] [place] [address] Health Maintenance Due Date Last Done Comments [...] this encounter Medical Devices Implanted Type Area Municipal Clerk Device Identifier Shelf Expiration Date Model / Serial / Lot Comprehensive Srs/Nexel Distal Body Implanted:Qty: 1 on 12/23/2018 by Gautam Jasso MD at OR [facility] [place] Right: Upper Arm 03/03/2028 [id number] / / [id number] Valve Ricky 3 Ultra 26mm - [id number] Implanted:Qty: 1 on 05/27/2022 by Jesús Weber MD at CARDIAC LABS [facility] [place] [employer] [id number] 03/17/2023 [id number] / / Port Implant W/8f Poly Cath - [id number] Implanted:Qty: 1 on 12/29/2022 by Sudhir Lovett DO at OR [facility] Right: Chest CR BARD : PERIPHERAL VASCULAR [id number] 02/12/2024 [id number] / / [id number] documented as of this encounter Advance Directives Documents on File Type Date Recorded Patient Rug Weaver Expl anation Power of Media Intern 12/12/2018 8:46 AM Vipin viveros Power of Media Intern Power of Media Intern 12/12/2018 8:45 AM Zuleyma ferguson Power of Media Intern Latest Code Status on File Code Status [...] the patient have Health Care Power of Media Intern? Yes, not currently available Full Code 11/21/2018 8:53 AM 11/21/2018 2:27 PM This or bull reflects the patients wishes and were consensually agreed upon. Care Teams Software Sales Manager Relationship Specialty Start Date End Date Kulwinder Byers MD [address] [address] PCP - General 06/28/03 documented as of this encounter
--- OUTSIDE RECORDS SUMMARY | 2024-01-15 19:58 | External Medical Summary | Summary of Care ---
Author Name Unknown Organization [facility] Address [address] [facility] [address] Phone [phone] Care Team Providers Care Gas Pumper Name Role Phone Kulwinder Byers MD Primary Care Provider [phone] Reason for Visit * Reason Onset Date Comments Medication Refill 10/21/2023 Decadron, pota ssium Encounter Details Date Type Department Care Team (Late st Contact Info) Description 10/21/2023 Telephone Hematology/Oncology Treatment, [place] [address] [place] [address] Alondra Allen MD [address] [place] [address] Medication Refill (Decadron, potassium) Allergies Active Allergy Reactions Criticality Noted Date Comments Adhesive Tape 05/28/2003 documented as of this encounter (statuses as of 10/21/2023) Medications Medication Sig Dispensed Refills Start Date [...] 30 Tab 0 12/25/2018 Active nystatin (NYSTOP) 217874 UNIT/GM powder Apply topically to affected area [...] the am.. 90 Tablet 3 08/10/2023 Active oxyCODONE HCl 5 MG Oral Tablet (Oxy IR)Indications:Mul tiple myeloma not having achieved remission (HCC) Take 1 Tablet by mouth every 6 hours as needed for Pain, Breakthrough. 60 Tablet 0 10/10/2023 Active Phospha 250 Neutral 155-852-130 MG Oral [...] a week 60 Tablet 1 10/21/2023 Active dexAMETHasone 4 MG Oral Tablet (Decadron)Indicati ons:Multiple myeloma not having achieved remission (HCC) Take 20mg once a week 60 Tablet 1 10/19/2023 3 Discontinue d(Refill) Potassium Chloride ER 10 MEQ Oral Tablet Extended ReleaseIndications :Multiple myeloma not having achieved remission (HCC),Hypokalemia TAKE BY MOUTH 1 TABLET IN THE MORNING AND 1 TABLET IN THE EVENING BEFORE BEDTIME. 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 Alondra Allen MD Hem/Onc * Telephone Encounter - Alondra Allen MD - 10/21/2023 4:33 PM ESTSigned Prescriptions: Disp Refills Potassium Chloride ER 10 MEQ Oral Tablet E*180 Ta*0 Sig: TAKE BY MOUTH 1 TABLET IN THE MORNING AND 1 TABLET IN THE EVENING BEFORE BEDTIME. Authorizing Provider: ALONDRA ALLEN dexAMETHasone 4 MG Oral Tablet (Decadron) 60 Tab*1 Sig: Take 20mg once a week Authorizing Provider: ALONDRA ALLEN * Telephone Encounter - Aditi Seay RN - 10/21/2023 4:06 PM EST Please send refills to [facility] documented in this encounter Plan of Treatment Upcoming Encounters Date Type Department Care Team (Late st Contact Info) Description 10/28/2023 2:30 PM EST Hem/Onc Treatment Hematology/Oncology Treatment, [place] [address] [place] [address] Ritu, Chair 4 Hem Onc [place] [facility] [address] 11/04/2023 2:30 PM EST Hem/Onc Treatment Hematology/Oncology Treatment, [place] 200 [place] [address] Park, Chair 8 Hem Onc [facility] 200 [facility] [place] [address] 11/11/2023 9:30 AM EST [facility] [address] 12/02/2023 9:15 AM EST Office Visit Hematology/Oncology [facility] 200 [facility] [place] [address] Alondra Allen MD 200 [facility] [place] [address] 02/13/2024 2:00 PM EDT Office Visit Cardiology, [facility] [address] [facility] [address] Katie Delong CRNP [address] [place] [address] Health Maintenance Due Date Last Done Comments [...] 10/19/2023, 11/15, 06/13/2020, Additional history exists GFR 10/19/2024 10/19/2023, 09/16, 10/05/2023, Additional history exists Pneumococcal Vaccine: 65+ Years Completed 02/18/2017, 01/12/2010 GARDASIL-HPV IMMUNIZATION SERIES Aged Out No longer eligible based on patient's age to complete this topic MENINGOCOCCAL (MENACTRA/MENVEO) Aged Out No longer eligible based on patient's age to complete this topic documented as of this encounter Medical Devices Implanted Type Area Hand Iii Cutter Device Identifier Shelf Expiration Date Model / Serial / Lot Comprehensive Srs/Nexel Distal Body Implanted:Qty: 1 on 12/23/2018 by Gautam Jasso [place] [facility] [place]: Upper Arm 03/03/2028 [id number] / / [id number] Valve Ricky 3 Ultra 26mm - [id number] Implanted:Qty: 1 on 05/27/2022 by Jesús Weber MD [place] [facility] [employer] [id number] 03/17/2023 [id number] / / Port Implant W/8f Poly Cath - [id number] Implanted:Qty: 1 on 12/29/2022 by Sudhir Lovett DO at OR [facility] Right: Chest CR BARD : PERIPHERAL VASCULAR [id number] 02/12/2024 [id number] / / [id number] documented as of this encounter Visit Diagnoses Diagnosis Multiple myeloma not having achieved remission (HCC) Multiple myeloma, without mention of having achieved remission Hypokalemia Hypopotassemia documented in this encounter Advance Directives Documents on File Type Date Recorded Patient Pipe Machine Operator Expl anation Power of College Sports Coach 12/12/2018 8:46 AM Vipin viveros Power of College Sports Coach Power of College Sports Coach 12/12/2018 8:45 AM Zuleyma ferguson Power of College Sports Coach Latest Code Status on File Code Status [...] the patient have Health Care Power of College Sports Coach? Yes, not currently available Full Code 11/21/2018 8:53 AM 11/21/2018 2:27 PM This or bull reflects the patients wishes and were consensually agreed upon. Care Teams Gas Pumper Relationship Specialty Start Date End Date Kulwinder Byers MD [address] [address] PCP - General 06/28/03 documented as of this encounter
--- OUTSIDE RECORDS SUMMARY | 2024-01-15 19:58 | External Medical Summary | Summary of Care ---
Author Name Unknown Organization [facility] Address [address] [facility] [place] [address] Phone [phone] Care Team Providers Care Physician/Internist Name Role Phone Kulwinder Byers MD Primary Care Provider Reason for Visit * Reason Comments Chemotherapy Cytoxan * Episode Based Medications (Routine) - Authorized Specialty Diagnoses / Procedures Referred By Contac t Referred To Contact Diagnoses Multiple myeloma not having achieved remission (HCC) Procedures DC DARATUMUMAB, HYALURONIDASE DC CYCLOPHOSPHAMIDE 100 MG INJ Jorge Allen MD [address] [place] [address] Anc Hem/Onc [facility] DEPT CLOSED - 09/27/23 [address] [place] [address] Referral ID Status Reason Start Date Expiration Date V isits Requested Visits Authorized [id number] Authorized 07/23/2022 11/13/2099 999 99 Encounter Details Date Type Department Care Team (Latest Contact Info) Description 11/04/2023 2:30 PM EST Hem/Onc Treatment Hematology/Oncolog y Treatment, [place] [address] [place] [address] Ritu, Chair 8 Hem Onc [place] [address] [place] [address] Multiple myeloma not having achieved remission (HCC)*; Encounter for antineoplastic chemotherapy Allergies Active Allergy Reactions Criticality Noted Date Comments Adhesive Tape 05/28/2003 documented as of this encounter (statuses as of 11/04/2023) Medications Medication Sig Dispensed Refills Start Date [...] 30 Tab 0 12/25/2018 Active nystatin (NYSTOP) 243089 UNIT/GM powder Apply topically to affected area [...] for Pain, Breakthrough. 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 CT assisted. * Aditi Seay RN - 11/04/2023 3:02 PM EST Chair [...] 9:30 AM EST Hem/Onc Treatment Hematology/Oncology Treatment, [place] [address] [place] [address] 12/02/2023 9:15 AM EST Office Visit Hematology/Oncology [facility] 200 [facility] [address] Jorge Allen MD 200 [facility] [address] 02/13/2024 2:00 PM EDT Office Visit Cardiology, [facility] [address] [facility] [address] Katie Delong CRNP [address] [facility] [place] [address] Health Maintenance Due Date Last Done Comments [...] this encounter Medical Devices Implanted Type Area Outdoor Adventure Guides Device Identifier Shelf Expiration Date Model / Serial / Lot Comprehensive Srs/Nexel Distal Body Implanted:Qty: 1 on 12/23/2018 by Gautam Jasso MD at [place] [facility] [place] Right: Upper Arm 03/03/2028 [id number] / / [id number] Valve Ricky 3 Ultra 26mm - [id number] Implanted:Qty: 1 on 05/27/2022 by Jesús Weber MD at [facility] [place] [employer] [id number] 03/17/2023 [id number] / / Port Implant W/8f Poly Cath - [id number] Implanted:Qty: 1 on 12/29/2022 by Sudhir Lovett DO at OR [facility] Right: Chest CR BARD : PERIPHERAL VASCULAR [id number] 02/12/2024 [id number] / / [id number] documented as of this encounter Visit Diagnoses [...] ONCE PRN Other, Hypersensitivity Reaction, Starting on Tue11/04/23 at 1428, Until 11/05/23 at 1427, For 24 hours EPINEPHrine 1 MG/ML inj 0.3 mg 0.3 mg, Intramuscular, ONCE PRN Other, Hypersensitivity Reaction or Anaphylaxis, Starting on Tue11/04/23 at 1428, Until 11/05/23 at 1427, For 24 hours hEParin 100 UNIT/ML Lock Flush inj 500 Units 500 Units (5 mL), IV Lock, PRN Other, IV Flush, Starting on Tue11/04/23 at 1428, Until 11/05/23 at 1427, For 24 hours, Do not flush if lock, PICC, or central line not in place; IV infusing or unable to flush. Given 11/04/2023 3:29 PM EST 500 Units Hydrocortisone Sod Suc (PF) (Solu-Cortef) inj 100 mg 100 mg, IV Push, ONCE PRN Other, Hypersensitivity Reaction, Starting on Tue11/04/23 at 1428, Until 11/05/23 at 1427, For 24 hours sodium chloride 0.9 % flush central line 10 mL 10 mL, IV Push, PRN Other, IV Flush, Starting on Tue11/04/23 at 1428, Until 11/05/23 at 1427, For 24 hours, Do not flush if lock, PICC, or central line not in place; IV infusing or unable to flush. Given 11/04/2023 3:29 PM EST 10 mL Inactive Administered Medications [...] Given 11/04/2023 2:38 PM EST 8 mg documented in this encounter Advance Directives Documents on File Type Date Recorded Patient Deck Molder Expl anation Power of Converting Operator 12/12/2018 8:46 AM Vipin viveros Power of Converting Operator Power of Converting Operator 12/12/2018 8:45 AM Zuleyma ferguson Power of Converting Operator Latest Code Status on File Code [...] the patient have Health Care Power of Converting Operator? Yes, not currently available Full Code 11/21/2018 8:53 AM 11/21/2018 2:27 PM This or bull reflects the patients wishes and were consensually agreed upon. Care Teams Physician/Internist Relationship Specialty Start Date End Date Kulwinder Byers MD [address] [place] [address] PCP - General 06/28/03 documented as of this encounter
--- OUTSIDE RECORDS SUMMARY | 2024-01-15 19:58 | External Medical Summary | Summary of Care ---
Author Name Unknown Organization [facility] Address [address] [facility] [place] [address] Phone [phone] Care Team Providers Care Mail Clerk Bills Name Role Phone Kulwinder Byers MD Primary Care Provider Reason for Visit * Reason Onset Date Comments Medication Refill 10/18/2023 Encounter Details Date Type Department Care Team (Late st Contact Info) Description 10/18/2023 Refill Hematology/Oncology [facility] R[place] 200 [facility] [place] [address] Jorge Allen MD 200 [facility] [place] [address] Multiple myeloma not having achieved remission (HCC); Hypokalemia; Hypophosphatemia Allergies Active Allergy Reactions Criticality Noted Date Comments Adhesive Tape 05/28/2003 documented as of this encounter (statuses as of 10/19/2023) Medications Medication Sig Dispensed Refills Start Date [...] 30 Tab 0 12/25/2018 Active nystatin (NYSTOP) 483614 UNIT/GM powder Apply topically to affected area [...] Pain, Breakthrough. 60 Tablet 0 10/10/2023 Active dexAMETHasone 4 MG Oral Tablet (Decadron)Indicati ons:Multiple myeloma not having achieved remission (HCC) Take 20mg once a week 60 Tablet 1 10/19/2023 Active Potassium Chloride ER 10 MEQ Oral Tablet Extended ReleaseIndications :Multiple myeloma not having achieved remission (HCC),Hypokalemia TAKE BY MOUTH 1 TABLET IN THE MORNING AND 1 TABLET IN THE EVENING BEFORE BEDTIME. 180 Tablet 0 10/19/2023 Active Phospha 250 Neutral 155-852-130 MG Oral TabletIndications: Multiple myeloma not having achieved remission (HCC),Hypophosphat emia Take 1 Tablet by mouth in the morning and 1 Tablet before bedtime. 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 * Telephone Encounter - Love Quick RN - 10/19/2023 7:59 AM ESTPending Prescriptions: Disp Refills dexAMETHasone 4 MG Oral Tablet (Decadron) 60 Tab*1 Sig: Take 20mg once a week Potassium Chloride ER 10 MEQ Oral Tablet E*180 Ta*0 Sig: TAKE BY MOUTH 1 TABLET IN THE MORNING AND 1 TABLET IN THE EVENING BEFORE BEDTIME. Phospha 250 Neutral 155-852-130 MG Oral Ta*180 Ta*1 Sig: Take 1 Tablet by mouth in the morning and 1 Tablet< BR> before bedtime. * Telephone Encounter - Love Quick RN - 10/19/2023 7:57 AM EST 10/13/23: K 4.7 09/01/23: phos 3.2 (xgeva every 3 months) Patient takes 20mg decadron weekly as part of treatment * Telephone Encounter - Robina Lechuga CPhT - 10/18/2023 3:19 PM EST Did you pend patient's preferred pharmacy and medication before forwarding?yes [facility]acy: [id number] [address] [facility] Pending Prescriptions: Disp Refills dexAMETHasone 4 MG Oral Tablet (Decadron) 60 Tab*1 Sig: Take 20mg once a week Potassium Chloride ER 10 MEQ Oral Tablet *180 Ta*0 Sig: TAKE BY MOUTH 1 TABLET IN THE MORNING AND 1 TABLET IN THE EVENING BEFORE BEDTIME. Phospha 250 Neutral 155-852-130 MG Oral T*180 Ta*1 Sig: Take 1 Tablet by mouth in the morning and 1 Tablet before bedtime. Last Visit: 09/02/2023 (in office), Visit date not found (telemedicine) Next Visit: 12/02/2023 If no future appointments scheduled, and last appointment is greater than a year ago, please schedule patient for a follow-up appointment Last date the medication was ordered: Is this request for a controlled substance?No Urine Drug Screen:No results found. However, due to the size of the patient record, not all encounters were searched. Please check Results Review for a complete set of results. Patient Phone Numbers Labs: Lab Results Component Value Date/Time CREAT 1.1 (H) 10/13/2023 03:13 PM CREAT 0.9 12/11/2020 09:50 AM POTASSIUM 4.7 10/13/2023 03:13 PM POTASSIUM 3.9 12/11/2020 09:50 AM TSH 1.13 10/08/2022 11:49 AM TSH 1.78 06/13/2020 03:25 PM LDLDIRECT 56 06/13/2020 03:25 PM ALT 14 10/13/2023 03:13 PM ALT 13 12/11/2020 09:50 AM HGBA1C 6.3 (H) 12/11/2020 09:50 AM documented in this encounter Plan of Treatment Upcoming Encounters Date Type Department Care Team (Late st Contact Info) Description 10/19/2023 3:30 PM EST [facility] [place] [address] [facility] [place] [address] 10/21/2023 2:30 PM EST Hem/Onc Treatment Hematology/Oncology Treatment, [place] [address] [place] [address] Ritu, Chair 6 Hem Onc [facility] 200 [facility] [place] [address] 12/02/2023 9:15 AM EST Office Visit Hematology/Oncology [facility] Ritu [place] 200 [facility] [place] [address] Jorge Allen MD 200 [facility] [place] [address] 02/13/2024 2:00 PM EDT [facility] [place] [address] [place] [address] Katie Delong CRNP [address] [place] [address] Health Maintenance Due Date Last Done Comments DXA Scan 1940 COVID-19 Vaccine (#1) 1945 Depression Screening 1952 Diabetic Eye Exam 1958 Diabetic Foot Exam 1958 DTaP,Tdap,and Td Vaccines (1 - Tdap) 1959 Zoster Vaccines (1 of 2) 1959 Hepatitis B (1 of 3 - Risk 3-dose series) 2000 HbA1c 06/10/2021 12/11/2020, /11/2019, 12/21/2018 Albumin/Creatinine Ratio 12/11/2021 12/11/2020 Influenza Vaccine (FLU shot) (#1) 2023 GFR 10/13/2024 10/13/2023, 09/15, 09/29/2023, Additional history exists Pneumococcal Vaccine: 65+ Years Completed 02/18/2017, 01/12/2010 GARDASIL-HPV IMMUNIZATION SERIES Aged Out No longer eligible based on patient's age to complete this topic MENINGOCOCCAL (MENACTRA/MENVEO) Aged Out No longer eligible based on patient's age to complete this topic documented as of this encounter Medical Devices Implanted Type Area Glue Size Machine Operator Device Identifier Shelf Expiration Date Model / Serial / Lot Comprehensive Srs/Nexel Distal Body Implanted:Qty: 1 on 12/23/2018 by Gautam Jasso MD at [facility] [place] Right: Upper Arm 03/03/2028 [id number] / / [id number] Valve Ricky 3 Ultra 26mm - [id number] Implanted:Qty: 1 on 05/27/2022 by Jesús Weber MD at [facility] [place] [employer] [id number] 03/17/2023 [id number] / / Port Implant W/8f Poly Cath - [id number] Implanted:Qty: 1 on 12/29/2022 by Sudhir Lovett DO at OR [facility] Right: Chest CR BARD : PERIPHERAL VASCULAR [id number] 02/12/2024 [id number] / / [id number] documented as of this encounter Visit Diagnoses Diagnosis Multiple myeloma not having achieved remission (HCC) Multiple myeloma, without mention of having achieved remission Hypokalemia Hypopotassemia Hypophosphatemia Disorders of phosphorus metabolism documented in this encounter Advance Directives Documents on File Type Date Recorded Patient Residence Life Director Expl anation Power of Parking Assistant 12/12/2018 8:46 AM Vipin viveros Power of Parking Assistant Power of Parking Assistant 12/12/2018 8:45 AM Zuleyma ferguson Power of Parking Assistant Latest Code Status on File Code [...] the patient have Health Care Power of Parking Assistant? Yes, not currently available Full Code 11/21/2018 8:53 AM 11/21/2018 2:27 PM This or bull reflects the patients wishes and were consensually agreed upon. Care Teams Mail Clerk Bills Relationship Specialty Start Date End Date Kulwinder Byers MD [address] [place] [address] PCP - General 06/28/03 documented as of this encounter
--- OUTSIDE RECORDS SUMMARY | 2024-01-15 19:58 | External Medical Summary | Summary of Care ---
Author Name Unknown Organization [facility] Address [address] [facility] [place] [address] Phone [phone] Care Team Providers Care Core Stacker Name Role Phone Kulwinder Byers MD Primary Care Provider Reason for Visit * Reason Comments Outpatient Testing Encounter Details Date Type Department Care Team (Late st Contact Info) Description 10/19/2023 4:30 PM EST Laboratory Laboratory, [facility] [address] [facility] [place] [address] [facility] 132 [facility] [place] [id number] Multiple myeloma not having achieved remission (HCC); DM type 2, not at goal (HCC); Dyslipidemia, goal LDL below 160 Allergies Active Allergy Reactions Criticality Noted Date [...] 30 Tab 0 12/25/2018 Active nystatin (NYSTOP) 986582 UNIT/GM powder Apply topically to affected area [...] 10/10/2023 Active dexAMETHasone 4 MG Oral Tablet (Decadron)Indication [...] Team (Late st Contact Info) Description 10/21/2023 2:30 PM EST Hem/Onc Treatment Hematology/Oncology Treatment, [place] [address] [place] [address] Ritu, Chair 6 Hem Onc [facility] 200 [facility] [place], [place] [address] 12/02/2023 9:15 AM EST Office Visit Hematology/Oncology [facility] 200 [facility] [place] [address] Jorge Allen MD [address] [place] [address] 02/13/2024 2:00 PM EDT Office Visit Cardiology, [facility] [address] [facility] [place] [address] Katie Delong CRNP [address] [place] [address] Pending Results Name Type Priority Associated Diagnoses Date /Time COMPREHENSIVE METABOLIC PANEL Lab STAT Multiple myeloma not having achieved remission (HCC) 10/19/2023 3:25 PM EST SERUM PROTEIN ELECTROPHORESIS REFLEX PROFILE Lab STAT Multiple myeloma not having achieved remission (HCC) 10/19/2023 3:25 PM EST SERUM FREE LIGHT CHAINS Lab STAT Multiple myeloma not having achieved remission (HCC) 10/19/2023 3:25 PM EST IMMUNOGLOBULIN QUANTITATIVE Lab STAT Multiple myeloma not having achieved remission (HCC) 10/19/2023 3:25 PM EST HEMOGLOBIN A1C Lab Routine DM type 2, not at goal ([facility]) Dyslipidemia, goal LDL below 160 10/19/2023 3:25 PM EST LIPID PANEL WITH DIRECT LDL IF TG IS HIGH Lab Routine DM type 2, not at goal (HCC) Dyslipidemia, goal LDL below 160 10/19/2023 3:25 PM EST PHOSPHORUS Lab STAT Multiple myeloma not having achieved remission (HCC) 10/19/2023 3:25 PM EST Health Maintenance Due Date Last Done Comments DXA Scan 1940 COVID-19 Vaccine (#1) 1945 Depression Screening 1952 Diabetic Eye Exam 1958 Diabetic Foot Exam 1958 DTaP,Tdap,and Td Vaccines (1 - Tdap) 1959 Zoster Vaccines (1 of 2) 1959 Hepatitis B (1 of 3 - Risk 3-dose series) 2000 HbA1c 06/10/2021 12/11/2020, 05/16, 12/21/2018 Albumin/Creatinine Ratio 12/11/2021 12/11/2020 Influenza Vaccine [...] this encounter Medical Devices Implanted Type Area Mental Hygienist Device Identifier Shelf Expiration Date Model / Serial / Lot Comprehensive Srs/Nexel Distal Body Implanted:Qty: 1 on 12/23/2018 by Gautam Jasso MD at OR [facility] [place] Right: Upper Arm 03/03/2028 [id number] / / [id number] Valve Ricky 3 Ultra 26mm - [id number] Implanted:Qty: 1 on 05/27/2022 by Jesús Weber MD at CARDIAC LABS [facility] [employer] [id number] 03/17/2023 [id number] / / Port Implant W/8f Poly Cath - [id number] Implanted:Qty: 1 on 12/29/2022 by Sudhir Lovett DO at OR [facility] Right: Chest CR BARD : PERIPHERAL VASCULAR [id number] 02/12/2024 [id number] / / [id number] documented as of this encounter Procedures Procedure Name Priority Date/Time Associated Diagnosis Comments DIFFERENTIAL, AUTOMATED STAT 10/19/2023 3:25 PM EST Multiple myeloma not having achieved remission (HCC) CBC STAT 10/19/2023 3:25 PM EST Multiple myeloma not having achieved remission (HCC) CBC STAT 10/19/2023 3:25 PM EST Multiple myeloma not having achieved remission (HCC) documented in this encounter Results * (ABNORMAL) DIFFERENTIAL, AUTOMATED (10/19/2023 3:25 PM EST) WBC 5.99 4.00 - 10.80 K/uL 10/19/2023 3:39 PM EST LAB[facility]ORY [place] [facility]10 Neutrophils % 81.1(H) 40.0 - 75.0 % 10/19/2023 3:39 PM EST LAB[facility] [place] [facility]10 Lymphocytes % 4.2(L) 18.0 - 42.0 % 10/19/2023 3:39 PM EST LAB[facility] [place] [facility]10 Monocytes % 13.7(H) 1.0 - 11.0 % 10/19/2023 3:39 PM EST LAB[facility] [place] [facility]10 Eosinophils % 0.5 0.0 - 6.0 % 10/19/2023 3:39 PM EST LAB[facility] [place] [facility]10 Basophils % 0.5 0.0 - 2.0 % 10/19/2023 3:39 PM EST LAB[facility] [place] [facility]10 Absolute Neutrophils 4.86 1.80 - 7.70 K/uL 10/19/2023 3:39 PM EST [facility] [place] [facility]10 Absolute Lymphocytes 0.25(L) 1.00 - 4.80 K/ul 10/19/2023 3:39 PM EST LAB[facility] [place] [facility]10 Absolute Monocytes 0.82 0.00 - 1.10 K/uL 10/19/2023 3:39 PM EST [facility] [place] [facility]10 Absolute Eosinophils 0.03 0.00 - 0.70 K/uL 10/19/2023 3:39 PM EST [facility] [place] [facility]10 Absolute Basophils 0.03 0.00 - 0.20 K/uL 10/19/2023 3:39 PM EST LAB[facility] [place] 57[facility]10 Blood Venous blood specimen / Unknown Venipuncture / Unknown 10/19/2023 3:25 PM EST 10/19/2023 3:25 PM EST Jorge Allen MD LAB BLOOD ORDERABLES [facility] [place] [facility]10 132 [facility] [place] [address] * (ABNORMAL) CBC (10/19/2023 3:25 PM EST) WBC 5.99 4.00 - 10.80 K/uL 10/19/2023 3:39 PM EST LAB[facility] [place] [facility]10 RBC 3.33 3.85 - 5.15 M/uL 10/19/2023 3:39 PM EST [facility] [place] [facility]10 HGB 11.2(L) 12.0 - 15.3 g/dL 10/19/2023 3:39 PM EST [facility] [place] [facility]10 HCT 33.8(L) 36.0 - 45.2 % 10/19/2023 3:39 PM EST [facility] [place] [facility]10 MCV 101.5 81.5 - 97.5 fL 10/19/2023 3:39 PM EST [facility] [place] [facility]10 MCH 33.6 27.0 - 34.0 pg 10/19/2023 3:39 PM EST [facility] [place] [facility]10 MCHC 33.1 32.0 - 36.0 g/dL 10/19/2023 3:39 PM EST [facility] [place] [facility]10 RDW 15.1 11.5 - 15.5 % 10/19/2023 3:39 PM EST [facility] [place] [facility]10 PLT 128(L) 140 - 400 K/uL 10/19/2023 3:39 PM EST [facility] [place] [facility]10 MPV 11.5 6.6 - 11.1 fL 10/19/2023 3:39 PM EST [facility] [place] [facility]10 Blood Venous blood specimen / Unknown Venipuncture / Unknown 10/19/2023 3:25 PM EST 10/19/2023 3:25 PM EST Jorge Allen MD LAB BLOOD ORDERABLES [facility] [place] [facility]10 [address] [place] [address] documented in this encounter Visit Diagnoses Diagnosis Multiple myeloma not having achieved remission (HCC) Multiple myeloma, without mention of having achieved remission DM type 2, not at goal (HCC) Type II or unspecified type diabetes mellitus without mention of complication, not stated as uncontrolled Dyslipidemia, goal LDL below 160 Other and unspecified hyperlipidemia documented in this encounter Advance Directives Documents on File Type Date Recorded Patient Cell Feed Department Supervisor Expl anation Power of Sub Master 12/12/2018 8:46 AM Vipin viveros Power of Sub Master Power of Sub Master 12/12/2018 8:45 AM Zuleyma ferguson Power of Sub Master Latest Code Status on File Code Status [...] the patient have Health Care Power of Sub Master? Yes, not currently available Full Code 11/21/2018 8:53 AM 11/21/2018 2:27 PM This or bull reflects the patients wishes and were consensually agreed upon. Care Teams Core Stacker Relationship Specialty Start Date End Date Kulwinder Byers MD [address] [place] [address] PCP - General 06/28/03 documented as of this encounter
--- OUTSIDE RECORDS SUMMARY | 2024-01-15 19:58 | External Medical Summary | Summary of Care ---
Author Name Unknown Organization [facility] Address [address] [facility] [address] Phone [phone] Care Team Providers Care Fiscal Accounting Clerk Name Role Phone Kulwinder Byers MD Primary Care Provider [phone] Reason for Visit * Reason Comments Outpatient Testing Encounter Details Date Type Department Care Team (Late st Contact Info) Description 11/02/2023 8:00 AM EST Laboratory Laboratory, [address] [address] St, Specimen Drop Off [address] [address] Multiple myeloma not having achieved remission (HCC) Allergies Active Allergy Reactions Criticality Noted Date Comments Adhesive Tape 05/28/2003 documented as of this encounter (statuses as of 11/02/2023) Medications Medication Sig Dispensed Refills Start Date [...] 30 Tab 0 12/25/2018 Active nystatin (NYSTOP) 118359 UNIT/GM powder Apply topically to affected area [...] a week 60 Tablet 1 10/21/2023 Active documented as of this encounter (statuses as of 11/02/2023) Active Problems Problem Noted Date Diagnosed Date [...] as of this encounter (statuses as of 11/02/2023) Resolved Problems Problem Noted Date Diagnosed Date 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 Aortic valve stenosis 2021 documented as of this encounter (statuses as of 11/02/2023) Social History Tobacco Use Types Packs/Day Years [...] Care Team (Late st Contact Info) Description 11/04/2023 2:30 PM EST Hem/Onc Treatment Hematology/Oncology Treatment, [place] [address] [place] [address] Ritu, Chair 8 Hem Onc [place] [address] [place] [address] 11/11/2023 9:30 AM EST Hem/Onc Treatment [facility]emat[facility] Treatment, [place] [facility] [address] 12/02/2023 9:15 AM EST Office Visit Hematology/Oncology [facility] 200 [place] [address] Jorge Allen MD 200 [place] [address] 02/13/2024 2:00 PM EDT Office Visit Cardiology, [facility] [address] [place] [address] Katie Delong CRNP [address] [place] [address] Pending Results Name Type Priority Associated Diagnoses Date /Time CBC WITH WBC DIFFERENTIAL Lab STAT Multiple myeloma not having achieved remission (HCC) 11/02/2023 3:02 PM EST COMPREHENSIVE METABOLIC PANEL Lab STAT Multiple myeloma not having achieved remission (HCC) 11/02/2023 3:02 PM EST CBC Lab STAT Multiple myeloma not having achieved remission (HCC) 11/02/2023 3:02 PM EST DIFFERENTIAL, AUTOMATED Lab STAT Multiple myeloma not having achieved remission (HCC) 11/02/2023 3:02 PM EST Health Maintenance Due Date Last [...] 10/19/2023, 11/15, 06/13/2020, Additional history exists GFR 10/27/2024 10/27/2023, 1204/2023, 10/13/2023, Additional history exists Pneumococcal Vaccine: 65+ Years Completed 02/18/2017, 01/12/2010 GARDASIL-HPV IMMUNIZATION SERIES Aged Out No longer eligible based on patient's age to complete this topic MENINGOCOCCAL (MENACTRA/MENVEO) Aged Out No longer eligible based on patient's age to complete this topic documented as of this encounter Medical Devices Implanted Type Area Radial Arm Saw Operator Device Identifier Shelf Expiration Date Model / Serial / Lot Comprehensive Srs/Nexel Distal Body Implanted:Qty: 1 on 12/23/2018 by Gautam Jasso [place] [facility] [place]: Upper Arm 03/03/2028 [id number] / / [id number] Valve Ricky 3 Ultra 26mm - [id number] Implanted:Qty: 1 on 05/27/2022 by Jesús Weber [place] [facility] [employer] [id number] 03/17/2023 [id number] / / Port Implant W/8f Poly Cath - [id number] Implanted:Qty: 1 on 12/29/2022 by Sudhir Lovett DO at OR [facility] Right: Chest CR BARD : PERIPHERAL VASCULAR [id number] 02/12/2024 [id number] / / [id number] documented as of this encounter Visit Diagnoses Diagnosis Multiple myeloma not having achieved remission (HCC) Multiple myeloma, without mention of having achieved remission documented in this encounter Advance Directives Documents on File Type Date Recorded Patient Sheet Turner Expl anation Power of Java Developer With Security Clearance 12/12/2018 8:46 AM Vipin viveros Power of Java Developer With Security Clearance Power of Java Developer With Security Clearance 12/12/2018 8:45 AM Zuleyma ferguson Power of Java Developer With Security Clearance Latest Code Status on File Code Status [...] the patient have Health Care Power of Java Developer With Security Clearance? Yes, not currently available Full Code 11/21/2018 8:53 AM 11/21/2018 2:27 PM This or bull reflects the patients wishes and were consensually agreed upon. Care Teams Fiscal Accounting Clerk Relationship Specialty Start Date End Date Kulwinder Byers MD [address] [address] PCP - General 06/28/03 documented as of this encounter
--- OUTSIDE RECORDS SUMMARY | 2024-01-15 19:58 | External Medical Summary ---
Author Name Unknown Address Unknown Organization [id number]:[facility]ATORY [facility] [address] [facility] [address] [place] [address] Laboratory Report Ordering Provider Test Date Status WOOD CANTU 10/27/2023 15:50:00 Final Observation Date Value Abnormality Reference (Units ) Status WBC, Total 10/27/2023 15:50:00 3.44 Below low normal 4.00-10.80 (K/uL) Final RBC 10/27/2023 15:50:00 3.36 3.85-5.15 (M/uL) Final Hemoglobin 10/27/2023 15:50:00 11.3 Below low normal 12.0-15.3 (g/dL) Final HCT 10/27/2023 15:50:00 34.5 Below low normal 36.0-45.2 (%) Final MCV 10/27/2023 15:50:00 102.7 81.5-97.5 (fL) Final MCH 10/27/2023 15:50:00 33.6 27.0-34.0 (pg) Final MCHC 10/27/2023 15:50:00 32.8 32.0-36.0 (g/dL) Final RDW 10/27/2023 15:50:00 15.8 11.5-15.5 (%) Final Platelets 10/27/2023 15:50:00 108 Below low normal 140-400 (K/uL) Final MPV 10/27/2023 15:50:00 11.9 6.6-11.1 (fL) Final Nucleated erythrocytes/100 leukocytes [Ratio] in Blood by Automated count 10/27/2023 15:50:00 0 <=0 (/100 WBCs) Final Performing Location [facility] [place] [place] [address] [place] [address]
--- OUTSIDE RECORDS SUMMARY | 2024-01-15 19:58 | External Medical Summary ---
Author Name Unknown Address Unknown Organization [id number]:LABORATORY [facility] [place] - [address] [facility] [place] [address] Laboratory Report Ordering Provider Test Date Status WOOD CANTU 10/27/2023 15:50:00 Final Observation Date Value Abnormality Reference (Units ) Status SYNC LEUKOCYTES IN BLOOD BY AUTOMATED COUNT 10/27/2023 15:50:00 3.44 Below low normal 4.00-10.80 (K/uL) Final Segs 10/27/2023 15:50:00 76.4 Above high normal 40.0-75.0 (%) Final Lymphs % 10/27/2023 15:50:00 4.7 Below low normal 18.0-42.0 (%) Final Monos 10/27/2023 15:50:00 15.1 Above high normal 1.0-11.0 (%) Final Eosinophils 10/27/2023 15:50:00 2.9 0.0-6.0 (%) Final Basos 10/27/2023 15:50:00 0.3 0.0-2.0 (%) Final Immature Granulocyte, Percent 10/27/2023 15:50:00 0.6 0.0-2.0 (%) Final Absolute Segs 10/27/2023 15:50:00 2.63 1.80-7.70 (K/uL) Final Lymphs, absolute 10/27/2023 15:50:00 0.16 Below low normal 1.00-4.80 (K/ul) Final Monos, Abs 10/27/2023 15:50:00 0.52 0.00-1.10 (K/uL) Final Eos, Abs 10/27/2023 15:50:00 0.10 0.00-0.70 (K/uL) Final Basos, Abs 10/27/2023 15:50:00 0.01 0.00-0.20 (K/uL) Final Immature Granulocytes, Number 10/27/2023 15:50:00 0.02 0.00-0.20 (K/uL) Final Performing Location LABORATORY [facility] [place] - [facility] [address] [facility] [address]
--- OUTSIDE RECORDS SUMMARY | 2024-01-15 19:58 | External Medical Summary ---
Author Name Unknown Address Unknown Organization K01:LABORATORY [facility] - [address] [place] [address] Laboratory Report Ordering Provider Test Date Status WOOD CANTU 10/19/2023 15:25:20 Final Observation Date Value Abnormality Reference (Units ) Status Phosphate 10/19/2023 15:25:20 2.5 2.5-4.8 (m g/dL) Final Performing Location LABORATORY [facility] - [address] [place] [address]
--- OUTSIDE RECORDS SUMMARY | 2024-01-15 19:58 | External Medical Summary ---
Author Name Unknown Address Unknown Organization K01:LABORATORY [facility] - [address] [facility] [place] [address] Laboratory Report Ordering Provider Test Date Status WOOD CANTU 10/27/2023 15:50:00 Final Observation Date Value Abnormality Reference (Units ) Status BUN 10/27/2023 15:50:00 21 Above high normal 6-20 (mg/dL) Final Creatinine 10/27/2023 15:50:00 0.9 0.5-1.0 (mg/dL) Final Glomerular filtration rate/1.73 sq M.predicted [Volume Rate/Area] in Serum, Plasma or Blood by Creatinine-based formula (CKD-EPI) 10/27/2023 15:50:00 68 >=60 (mL/min) Final eGFR is calculated based on the CKD-EPI 2020 equation SODIUM 10/27/2023 15:50:00 142 135-146 (m mol/L) Final Potassium 10/27/2023 15:50:00 4.2 3.5-5.1 (m mol/L) Final Cl 10/27/2023 15:50:00 107 98-107 (mm ol/L) Final CO2 10/27/2023 15:50:00 25 22-32 (mmo l/L) Final Anion gap 10/27/2023 15:50:00 10 7-15 (mmol /L) Final Glucose 10/27/2023 15:50:00 137 Above high normal 70 -120 (mg/dL) Final Albumin 10/27/2023 15:50:00 4.1 3.8-5.0 (g /dL) Final AST (Aspartate aminotransferase) 10/27/2023 15:50:00 15 10-35 (U/L) Fin al Alk Phos 10/27/2023 15:50:00 56 35-130 (U/ L) Final Bilirubin, Total 10/27/2023 15:50:00 0.3 <=1 .2 (mg/dL) Final Calcium 10/27/2023 15:50:00 8.8 8.4-10.2 ( mg/dL) Final Protein 10/27/2023 15:50:00 5.7 Below low normal 6.0 -8.3 (g/dL) Final ALT (Alanine aminotransferase) 10/27/2023 15:50:00 14 10-35 (U/L) Abisai mcconnell Performing Location LABORATORY [facility] [place] - [address] [facility] [address]
--- OUTSIDE RECORDS SUMMARY | 2024-01-15 19:58 | External Medical Summary | Summary of Care ---
Author Name Unknown Organization [facility] Address [address] [facility] [place] [address] Phone [phone] Care Team Providers Care Linoleum Floor Installer Name Role Phone Kulwinder Byers MD Primary Care Provider Reason for Visit * Reason Comments Outpatient Testing Encounter Details Date Type Department Care Team (Late st Contact Info) Description 10/19/2023 4:30 PM EST Laboratory Laboratory, [facility] 132 [facility] [place] [address] RecinosMatt thorpe [facility] 132 [facility] [place] [id number] Multiple myeloma not having achieved remission (HCC); [...] 30 Tab 0 12/25/2018 Active nystatin (NYSTOP) 269956 UNIT/GM powder Apply topically to affected area [...] 2:30 PM EST Hem/Onc Treatment Hematology/Oncology Treatment, [place] [address] [place] [address] Ritu, Chair 6 Hem Onc [facility] 200 [facility] [place], [place] [address] 12/02/2023 9:15 AM EST Office Visit Hematology/Oncology [facility] 200 [facility] [place] [address] Jorge Allen MD [address] [place] [address] 02/13/2024 2:00 PM EDT Office Visit Cardiology, [facility] [address] [facility] [place] [address] Katie Delong CRNP [address] [facility] [place] [address] Pending Results Name Type Priority Associated Diagnoses [...] Routine DM type 2, not at goal ([facility]) Dyslipidemia, goal LDL below 160 10/19/2023 3:25 [...] this encounter Medical Devices Implanted Type Area Belt Turner Device Identifier Shelf Expiration Date Model / Serial / Lot Comprehensive Srs/Nexel Distal Body Implanted:Qty: 1 on 12/23/2018 by Gautam Jasso MD [place] [facility] [place] Right: Upper Arm 03/03/2028 [id number] / / [id number] Valve Ricky 3 Ultra 26mm - [id number] Implanted:Qty: 1 on 05/27/2022 by Jesús Weber MD at [place]ARD[place] [facility] [place] [employer] [id number] 03/17/2023 [id number] / / Port Implant W/8f Poly Cath - [id number] Implanted:Qty: 1 on 12/29/2022 by Sudhir Lovett DO at OR [facility] Right: Chest CR BARD : PERIPHERAL VASCULAR [id number] 02/12/2024 [id number] / / [id number] documented as of this encounter Procedures Procedure [...] BLOOD ORDERABLES LAB[facility]ATORY [place] [facility] 132 [facility] [place] [address] * (ABNORMAL) CBC (10/19/2023 3:25 PM EST) [...] LABORATORY [place] [facility] [place] [address] documented in this encounter Visit Diagnoses Diagnosis [...] Documents on File Type Date Recorded Patient Clamshell Engineer Expl anation Power of Pocket And Pulley Machine Operator 12/12/2018 8:46 AM Vipin viveros Power of Pocket And Pulley Machine Operator Power of Pocket And Pulley Machine Operator 12/12/2018 8:45 AM Zuleyma ferguson Power of Pocket And Pulley Machine Operator Latest Code Status on File Code [...] the patient have Health Care Power of Pocket And Pulley Machine Operator? Yes, not currently available Full Code 11/21/2018 8:53 AM 11/21/2018 2:27 PM This or bull reflects the patients wishes and were consensually agreed upon. Care Teams Linoleum Floor Installer Relationship Specialty Start Date End Date Kulwinder Byers MD [address] [place] [address] PCP - General 06/28/03 documented as of this encounter
--- OUTSIDE RECORDS SUMMARY | 2024-01-15 19:58 | External Medical Summary | Summary of Care ---
Author Name Unknown Organization [facility] Address [address] [facility] [place] [address] Phone [phone] Care Team Providers Care Floor Coverer Apprentice Name Role Phone Kulwinder Byers MD Primary Care Provider Reason for Visit * Reason Onset Date Comments Test Results 10/21/2023 Encounter Details Date Type Department Care Team (Late st Contact Info) Description 10/21/2023 Telephone Cardiology, [facility] [address] [place] [address] Katie Delong CRNP [address] [place] [address] Test Results Allergies Active Allergy Reactions Criticality Noted Date [...] 30 Tab 0 12/25/2018 Active nystatin (NYSTOP) 259414 UNIT/GM powder Apply topically to affected area [...] encounter Miscellaneous Notes * Telephone Encounter - Lamar Wick LPN - 10/21/2023 12:45 PM EST Mychart * Telephone Encounter - Lamar Wick LPN - 10/21/2023 12:37 PM EST ----- Message from JORGE Pollard sent at 10/20/2023 7:49 AM EST ----- Echocardiogram shows a mildly reduced LVEF of 45-49%, stable. There is a large- sized apical, septal, anterior septal wall motion abnormality, known. TAVR gradients are stable. Mild mitral stenosis with mild mitral regurgitation noted. No pulmonary hypertension. Patient primarily follows with [facility] cardiology-- Dr. Bethea, is she still following with that group? If so she is >1 year post TAVR and further care will be deferred to Dr. Bethea. February appt willnot be needed if that is the case. Please fax echo report to [facility] Cards documented in this encounter Plan of Treatment Upcoming Encounters Date Type Department Care Team (Late st Contact Info) Description 10/21/2023 2:30 PM EST Hem/Onc Treatment Hematology/Oncology Treatment, [place] 200 [facility] [place] [address] Park, Chair 6 Hem Onc [address] [place] [address] 12/02/2023 9:15 AM EST Office Visit Hematology/Oncology [address] [place] [address] Jorge Allen MD 200 [facility] [place] [address] 02/13/2024 2:00 PM EDT Office Visit Cardiology, [facility] [address] [place] [address] Katie Delong CRNP [address] [place] [address] Health Maintenance Due Date Last Done Comments [...] this encounter Medical Devices Implanted Type Area Tack Cutter Device Identifier Shelf Expiration Date Model / Serial / Lot Comprehensive Srs/Nexel Distal Body Implanted:Qty: 1 on 12/23/2018 by Gautam Jasso MD at OR [facility] Right: Upper Arm 03/03/2028 [id number] / / [id number] Valve Ricky 3 Ultra 26mm - [id number] Implanted:Qty: 1 on 05/27/2022 by Jesús Weber MD at CARDIAC LABS [facility] [employer] [id number] 03/17/2023 [id number] / / Port Implant W/8f Poly Cath - [id number] Implanted:Qty: 1 on 12/29/2022 by Sudhir Lovett DO at OR [facility] Right: Chest CR BARD : PERIPHERAL VASCULAR [id number] 02/12/2024 [id number] / / [id number] documented as of this encounter Advance Directives Documents on File Type Date Recorded Patient Active Directory Administrator Expl anation Power of Health Assistant 12/12/2018 8:46 AM Vipin viveros Power of Health Assistant Power of Health Assistant 12/12/2018 8:45 AM Finan cial Power of Health Assistant Latest Code Status on File Code [...] patient have Health Care Power of Health Assistant? Yes, not currently available Full Code 11/21/2018 8:53 AM 11/21/2018 2:27 PM This or bull reflects the patients wishes and were consensually agreed upon. Care Teams Floor Coverer Apprentice Relationship Specialty Start Date End Date Kulwinder Byers MD [address] [address] PCP - General 06/28/03 documented as of this encounter
--- OUTSIDE RECORDS SUMMARY | 2024-01-15 19:58 | External Medical Summary ---
Author Name Unknown Address Unknown Organization [id number][facility] [address] [place] [address] Laboratory Report Ordering Provider Test Date Status WOOD CANTU 10/19/2023 15:25:20 Final Observation Date Value Abnormality Reference (Units ) Status SYNC LEUKOCYTES IN BLOOD BY AUTOMATED COUNT 10/19/2023 15:25:20 5.99 4.00-10.80 (K/uL) Final Segs 10/19/2023 15:25:20 81.1 Above high normal 40.0-75.0 (%) Final Lymphs % 10/19/2023 15:25:20 4.2 Below low normal 18.0-42.0 (%) Final Monos 10/19/2023 15:25:20 13.7 Above high normal 1.0-11.0 (%) Final Eosinophils 10/19/2023 15:25:20 0.5 0.0-6.0 (%) Final Basos 10/19/2023 15:25:20 0.5 0.0-2.0 (%) Final Absolute Segs 10/19/2023 15:25:20 4.86 1.80-7.70 (K/uL) Final Lymphs, absolute 10/19/2023 15:25:20 0.25 Below low normal 1.00-4.80 (K/ul) Final Monos, Abs 10/19/2023 15:25:20 0.82 0.00-1.10 (K/uL) Final Eos, Abs 10/19/2023 15:25:20 0.03 0.00-0.70 (K/uL) Final Basos, Abs 10/19/2023 15:25:20 0.03 0.00-0.20 (K/uL) Final Performing Location [facility] [address] - [address] [place] [address]
--- OUTSIDE RECORDS SUMMARY | 2024-01-15 19:58 | External Medical Summary ---
Author Name Unknown Address Unknown Organization [id number]:[facility] - [address] [facility] [place] [address] Laboratory Report Ordering Provider Test Date Status WOOD CANTU 11/02/2023 15:02:18 Final Observation Date Value Abnormality Reference (Units ) Status SYNC LEUKOCYTES IN BLOOD BY AUTOMATED COUNT 11/02/2023 15:02:18 2.93 Below low normal 4.00-10.80 (K/uL) Final Segs 11/02/2023 15:02:18 74.8 40.0-75.0 (%) Final Lymphs % 11/02/2023 15:02:18 5.8 Below low normal 18.0-42.0 (%) Final Monos 11/02/2023 15:02:18 15.0 Above high normal 1.0-11.0 (%) Final Eosinophils 11/02/2023 15:02:18 3.8 0.0-6.0 (%) Final Basos 11/02/2023 15:02:18 0.3 0.0-2.0 (%) Final Immature Granulocyte, Percent 11/02/2023 15:02:18 0.3 0.0-2.0 (%) Final Absolute Segs 11/02/2023 15:02:18 2.19 1.80-7.70 (K/uL) Final Lymphs, absolute 11/02/2023 15:02:18 0.17 Below low normal 1.00-4.80 (K/ul) Final Monos, Abs 11/02/2023 15:02:18 0.44 0.00-1.10 (K/uL) Final Eos, Abs 11/02/2023 15:02:18 0.11 0.00-0.70 (K/uL) Final Basos, Abs 11/02/2023 15:02:18 0.01 0.00-0.20 (K/uL) Final Immature Granulocytes, Number 11/02/2023 15:02:18 0.01 0.00-0.20 (K/uL) Final Performing Location [facility] - [facility] [address] [facility] [address]
--- OUTSIDE RECORDS SUMMARY | 2024-01-15 19:58 | External Medical Summary | Summary of Care ---
Author Name Unknown Organization [facility] Address [address] [facility] [address] Phone [phone] Care Team Providers Care Paving Bed Maker Name Role Phone Kulwinder Byers MD Primary Care Provider [phone] Reason for Visit * Reason Onset Date Comments Medication Refill 11/04/2023 Oxycodone Encounter Details Date Type Department Care Team (Late st Contact Info) Description 11/04/2023 Refill Hematology/Oncology Treatment, [address] [address] Jorge Allen MD 200 [place] [address] Multiple myeloma not having achieved remission (HCC) [...] 30 Tab 0 12/25/2018 Active nystatin (NYSTOP) 187179 UNIT/GM powder Apply topically to affected area [...] Pain, Breakthrough. 60 Tablet 0 11/04/2023 Active oxyCODONE HCl 5 MG Oral Tablet (Oxy IR)Indications:Mul tiple myeloma not having achieved remission (HCC) Take 1 Tablet by mouth every 6 hours as needed for Pain, Breakthrough. 60 Tablet 0 10/10/2023 3 Discontinue d(Refill) documented as of this [...] encounter Miscellaneous Notes * Telephone Encounter - Shelbi Trejo CRNP - 11/04/2023 3:53 PM EST Signed Prescriptions: Disp Refills oxyCODONE HCl 5 MG Oral Tablet (Oxy IR) 60 Tab*0 Sig: Take 1 Tablet by mouth every 6 hours as needed for Pain, Breakthrough.Authorizing Provider: SHELBI TREJO NN * Telephone Encounter - Aditi Seay RN - 11/04/2023 3:25 PM EST Pt is requesting Rx for Oxy IR to be sent to [facility]. documented in this encounter Plan of Treatment Upcoming Encounters Date Type Department Care Team (Late st Contact Info) Description 11/11/2023 9:30 AM EST [facility] 200 [place] [address] 12/02/2023 9:15 AM EST Office Visit Hematology/Oncology [address] [place] [address] Jorge Allen MD 200 [facility] [address] 02/13/2024 2:00 PM EDT Office Visit Cardiology, [facility] 132 [place] [address] Katie Delong CRNP 132 [place] [address] Health Maintenance Due Date Last Done Comments [...] this encounter Medical Devices Implanted Type Area Director Maternal Child Device Identifier Shelf Expiration Date Model / Serial / Lot Comprehensive Srs/Nexel Distal Body Implanted:Qty: 1 on 12/23/2018 by Gautam Jasso MD at [place] [facility] Right: Upper Arm 03/03/2028 [id number] / / [id number] Valve Ricky 3 Ultra 26mm - [id number] Implanted:Qty: 1 on 05/27/2022 by Jesús Weber MD at [facility] [employer] [id number] 03/17/2023 [id number] / / Port Implant W/8f Poly Cath - [id number] Implanted:Qty: 1 on 12/29/2022 by Sudhir Lovett DO at OR [facility] Right: Chest CR BARD : PERIPHERAL VASCULAR [id number] 02/12/2024 [id number] / / [id number] documented as of this encounter Visit Diagnoses Diagnosis Multiple myeloma not having achieved remission (HCC) Multiple myeloma, without mention of having achieved remission documented in this encounter Advance Directives Documents on File Type Date Recorded Patient Humid System Operator Expl anation Power of Olive Brine Tester 12/12/2018 8:46 AM Healt hcare Power of Olive Brine Tester Power of Olive Brine Tester 12/12/2018 8:45 AM Zuleyma ferguson Power of Olive Brine Tester Latest Code Status on File Code Status [...] the patient have Health Care Power of Olive Brine Tester? Yes, not currently available Full Code 11/21/2018 8:53 AM 11/21/2018 2:27 PM This or bull reflects the patients wishes and were consensually agreed upon. Care Teams Paving Bed Maker Relationship Specialty Start Date End Date Kulwinder Byers MD [address] [address] PCP - General 06/28/03 documented as of this encounter
--- OUTSIDE RECORDS SUMMARY | 2024-01-15 19:58 | External Medical Summary ---
Author Name Unknown Address Unknown Organization [id number]:[facility] - [facility] [address] [facility] [address] [facility] [address] [place] [address] Laboratory Report Ordering Provider Test Date Status WOOD CANTU 11/02/2023 15:02:18 Final Observation Date Value Abnormality Reference (Units ) Status WBC, Total 11/02/2023 15:02:18 2.93 Below low normal 4.00-10.80 (K/uL) Final RBC 11/02/2023 15:02:18 3.56 3.85-5.15 (M/uL) Final Hemoglobin 11/02/2023 15:02:18 11.8 Below low normal 12.0-15.3 (g/dL) Final HCT 11/02/2023 15:02:18 35.9 Below low normal 36.0-45.2 (%) Final MCV 11/02/2023 15:02:18 100.8 81.5-97.5 (fL) Final MCH 11/02/2023 15:02:18 33.1 27.0-34.0 (pg) Final MCHC 11/02/2023 15:02:18 32.9 32.0-36.0 (g/dL) Final RDW 11/02/2023 15:02:18 16.1 11.5-15.5 (%) Final Platelets 11/02/2023 15:02:18 130 Below low normal 140-400 (K/uL) Final MPV 11/02/2023 15:02:18 12.3 6.6-11.1 (fL) Final Nucleated erythrocytes/100 leukocytes [Ratio] in Blood by Automated count 11/02/2023 15:02:18 0 <=0 (/100 WBCs) Final Performing Location [facility] [place] [address] [place] [address]
--- OUTSIDE RECORDS SUMMARY | 2024-01-15 19:58 | External Medical Summary | Summary of Care ---
Author Name Unknown Organization [facility] Address [address] [facility] [place] [address] Phone [phone] Care Team Providers Care Bilingual Office Assistant Name Role Phone Kulwinder Byers MD Primary Care Provider Reason for Visit * Reason Comments Chemotherapy [id number] Cytoxan * Episode Based Medications (Routine) - Authorized Specialty Diagnoses / Procedures Referred By Contac t Referred To Contact Diagnoses Multiple myeloma not having achieved remission (HCC) Procedures MS DARATUMUMAB, HYALURONIDASE MS CYCLOPHOSPHAMIDE 100 MG INJ Jorge Allen MD [address] [place] [address] Anc Hem/Onc Sc[facility] DEPT CLOSED - 09/27/[address] [place] [address] Referral ID Status Reason Start Date Expiration Date V isits Requested Visits Authorized [id number] Authorized 07/23/2022 11/13/[phone] Encounter Details Date Type Department Care Team (Latest Contact Info) Description 10/28/2023 2:30 PM EST Hem/Onc Treatment Hematology/Oncolog y Treatment, [place] [address] [place] [address] Ritu, Chair 4 Hem Onc [address] [place] [id number] Multiple myeloma not having achieved remission (HCC)*; Encounter for antineoplastic chemotherapy Allergies Active Allergy Reactions Criticality Noted Date Comments Adhesive Tape 05/28/2003 documented as of this encounter (statuses as of 10/28/2023) Medications Medication Sig Dispensed Refills Start Date [...] 30 Tab 0 12/25/2018 Active nystatin (NYSTOP) 602385 UNIT/GM powder Apply topically to affected area [...] as of this encounter (statuses as of 10/28/2023) Active Problems Problem Noted Date Diagnosed Date [...] as of this encounter (statuses as of 10/28/2023) Resolved Problems Problem Noted Date Diagnosed Date 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 Reviewed [facility] cardiology notes. Pt states she will follow up with [place] group Dr. Bethea. Chemo agents cytoxan Appetite [...] 2:30 PM EST Hem/Onc Treatment [address]ematology[address] [address] Ritu, Chair 8 Hem On[address] [place] [address] 11/11/2023 9:30 AM EST Hem/Onc Treatment Hematology/[address], [address] [address] 12/02/2023 9:15 AM EST Office Visit Hematology/Oncology [facility] [address] [place] [address] Jorge Allen MD 200 [facility] [place] [address] 02/13/2024 2:00 PM EDT Office Visit Cardiology, [facility] 132 [place] [address] Katie Delong CRNP [address] [place] [address] Health Maintenance Due Date Last Done Comments [...] 06/13/2020, Additional history exists GFR 10/27/2024 10/27/2023, 04/2023, 10/13/2023, Additional history exists Pneumococcal Vaccine: 65+ Years Completed 02/18/2017, 01/12/2010 GARDASIL-HPV IMMUNIZATION SERIES Aged Out No longer eligible based on patient's age to complete this topic MENINGOCOCCAL (MENACTRA/MENVEO) Aged Out No longer eligible based on patient's age to complete this topic documented as of this encounter Medical Devices Implanted Type Area Basin Cleaner Device Identifier Shelf Expiration Date Model / Serial / Lot Comprehensive Srs/Nexel Distal Body Implanted:Qty: 1 on 12/23/2018 by Gautam Jasso MD [place] [facility] [place]: Upper Arm 03/03/2028 [id number] / / [id number] Valve Ricky 3 Ultra 26mm - [id number] Implanted:Qty: 1 on 05/27/2022 by Jesús Weber MD [place] [facility] [employer] [id number] 03/17/2023 [id number] / / Port Implant W/8f Poly Cath - [id number] Implanted:Qty: 1 on 12/29/2022 by Sudhir Lovett DO at OR [facility] Right: Chest CR BARD : PERIPHERAL VASCULAR [id number] 02/12/2024 [id number] / / [id number] documented as of this encounter Visit Diagnoses [...] ONCE PRN Other, Hypersensitivity Reaction, Starting on Tue10/28/23 at 1425, Until 10/29/23 at 1424, For 24 hours EPINEPHrine 1 MG/ML inj 0.3 mg 0.3 mg, Intramuscular, ONCE PRN Other, Hypersensitivity Reaction or Anaphylaxis, Starting on Tue10/28/23 at 1425, Until 10/29/23 at 1424, For 24 hours hEParin 100 UNIT/ML Lock Flush inj 500 Units 500 Units (5 mL), IV Lock, PRN Other, IV Flush, Starting on Tue10/28/23 at 1425, Until 10/29/23 at 1424, For 24 hours, Do not flush if lock, PICC, or central line not in place; IV infusing or unable to flush. Given 10/28/2023 3:29 PM EST 500 Units Hydrocortisone Sod Suc (PF) (Solu-Cortef) inj 100 mg 100 mg, IV Push, ONCE PRN Other, Hypersensitivity Reaction, Starting on Tue10/28/23 at 1425, Until 10/29/23 at 1424, For 24 hours sodium chloride 0.9 % flush central line 10 mL 10 mL, IV Push, PRN Other, IV Flush, Starting on Tue10/28/23 at 1425, Until 10/29/23 at 1424, For 24 hours, Do not flush if lock, PICC, or central line not in place; IV infusing or unable to flush. Given 10/28/2023 3:29 PM EST 10 mL Inactive Administered [...] 2:51 PM EST 620 mg 500 mL/hr NSS infusion FOR HYDRATION Intravenous, at 50 mL/hr Administer over 10 Hours, ONCE, 1 dose, On Tue10/28/23 at 1500 Start Infusion 10/28/2023 2:33 PM EST 500 mL 50 mL/hr ondansetron (Zofran) tab 8 mg 8 mg, Oral, ONCE, On Tue10/28/23 at 1500, For 1 dose Given 10/28/2023 2:36 PM EST 8 mg documented in this encounter Advance Directives Documents on File Type Date Recorded Patient Online Activist Expl anation Power of Tanker Truck Driver 12/12/2018 8:46 AM Vipin viveros Power of Tanker Truck Driver Power of Tanker Truck Driver 12/12/2018 8:45 AM Zuleyma ferguson Power of Tanker Truck Driver Latest Code Status on File Code [...] the patient have Health Care Power of Tanker Truck Driver? Yes, not currently available Full Code 11/21/2018 8:53 AM 11/21/2018 2:27 PM This or bull reflects the patients wishes and were consensually agreed upon. Care Teams Bilingual Office Assistant Relationship Specialty Start Date End Date Kulwinder Byers MD [address] [address] PCP - General 06/28/03 documented as of this encounter
--- OUTSIDE RECORDS SUMMARY | 2024-01-15 19:58 | External Medical Summary ---
Author Name Unknown Address Unknown Organization K01:LABORATORY [facility] [place] - [facility] [address] [facility] [address] [facility] [address] Laboratory Report Ordering Provider Test Date Status WOOD CANTU 10/19/2023 15:25:20 Final Observation Date Value Abnormality Reference (Units) Status PARAPROTEIN NORMAL/ABNORMAL 15:25:20 Abnormal Abnormal Normal Final Protein 15:25:20 6.4 6.0-8.3 (g/dL) Final Albumin/Protein.total [Pure mass fraction] in Serum or Plasma by Electrophoresis 15:25:20 3.49 3.30-4.40 (g/dL) Final Alpha 1 globulin/Protein.tota l [Pure mass fraction] in Serum or Plasma by Electrophoresis 15:25:20 0.24 0.10-0.30 (g/dL) Final Alpha 2 globulin/Protein.tota l [Pure mass fraction] in Serum or Plasma by Electrophoresis 15:25:20 0.91 0.60-1.00 (g/dL) Final Beta globulin/Protein.tota l [Pure mass fraction] in Serum or Plasma by Electrophoresis 15:25:20 1.17 0.80-1.30 (g/dL) Final Gamma globulin/Protein.tota l [Pure mass fraction] in Serum or Plasma by Electrophoresis 3 15:25:20 0.59 Below low normal 0.70-1.70 (g/dL) Final Protein Fractions [Interpretation] in Serum or Plasma by Electrophoresis Narrative 15:25:20 Abnormal, 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 Decreased gamma fraction. Paraprotein concentration is detectable, but less than 0.5 g/dL, unable to be accurately quantified by this method. Final Performing Location LABORATORY [facility] [place] - [address] [facility] [address]
--- OUTSIDE RECORDS SUMMARY | 2024-01-15 19:58 | External Medical Summary ---
Author Name Unknown Address Unknown Organization K01:LABORATORY [facility] - [address] [place] [address] Laboratory Report Ordering Provider Test Date Status ARTUR CANTUEL 10/27/2023 15:50:00 Final Observation Date Value Abnormality Reference (Units ) Status Phosphate 10/27/2023 15:50:00 2.4 Below low normal 2.5 -4.8 (mg/dL) Final Performing Location LABORATORY [facility] - [address] [place] [address]
--- OUTSIDE RECORDS SUMMARY | 2024-01-15 19:58 | External Medical Summary | Summary of Care ---
Author Name Unknown Organization [facility] Address [address] [facility] [place] [address] Phone [phone] Care Team Providers Care Sustainability Specialist Name Role Phone Kulwinder Byers MD Primary Care Provider [phone] Reason for Visit * Reason Comments Chemotherapy Cytoxan * Episode Based Medications (Routine) - Authorized Specialty Diagnoses / Procedures Referred By Contac t Referred To Contact Diagnoses Multiple myeloma not having achieved remission (HCC) Procedures MS DARATUMUMAB, HYALURONIDASE MS CYCLOPHOSPHAMIDE 100 MG INJ Jorge Allen MD [address] [place] [address] Anc Hem/Onc [facility] DEPT CLOSED - 09/27/23 [address] [place] [address] Referral ID Status Reason Start Date Expiration Date V isits Requested Visits Authorized [id number] Authorized 07/23/2022 11/13/2099 [id number] Encounter Details Date Type Department Care Team (Latest Contact Info) Description 10/21/2023 2:30 PM EST Hem/Onc Treatment Hematology/Oncolog y Treatment, [place] [address] [place] [address] Ritu, Chair 6 Hem Onc Scenery [address] [place] [address] Multiple myeloma not having achieved remission (HCC)*; [...] 30 Tab 0 12/25/2018 Active nystatin (NYSTOP) 629579 UNIT/GM powder Apply topically to affected area [...] Nursing Notes * Aditi Seay RN - 10/21/2023 4:03 PM EST Pt [...] in stable condition. No coverage. * Aditi Seay RN - 10/21/2023 3:27 PM EST Chair [...] 2:30 PM EST Hem/Onc Treatment Hematology/[address], [address] [address] Ritu, Chair 4 Hem On[address] [place] [address] 11/04/2023 2:30 PM EST Hem/Onc Treatment Hematology/[address]cology [address], [address] [address] Ritu, Chair 8 Hem Onc [address] [place] [address] 11/11/2023 9:30 AM EST Hem/Onc Treatment Hematology/[address]cology [address], [address] [address] 12/02/2023 9:15 AM EST Office Visit Hematology/Oncology [facility] [address] [place] [address] Jorge Allen MD [address] [facility] [place] [address] 02/13/2024 2:00 PM EDT Office Visit Cardiology, [facility] [place] [id number] Katie Delong CRNP [address] [place] [address] Health Maintenance Due Date Last Done Comments [...] this encounter Medical Devices Implanted Type Area Draftsperson Device Identifier Shelf Expiration Date Model / Serial / Lot Comprehensive Srs/Nexel Distal Body Implanted:Qty: 1 on 12/23/2018 by Gautam Jasso MD at OR [facility] Right: Upper Arm 03/03/2028 [id number] / / [id number] Valve Ricky 3 Ultra 26mm - [id number] Implanted:Qty: 1 on 05/27/2022 by Jesús Weber MD at [facility] [employer] [id number] 03/17/2023 [id number] / / Port Implant W/8f Poly Cath - [id number] Implanted:Qty: 1 on 12/29/2022 by Sudhir Lovett DO at OR [facility] Right: Chest CR BARD : PERIPHERAL VASCULAR [id number] 02/12/2024 [id number] / / [id number] documented as of this encounter Visit Diagnoses [...] ONCE PRN Other, Hypersensitivity Reaction, Starting on Tue10/21/23 at 1441, Until 10/22/23 at 1440, For 24 hours EPINEPHrine 1 MG/ML inj 0.3 mg 0.3 mg, Intramuscular, ONCE PRN Other, Hypersensitivity Reaction or Anaphylaxis, Starting on Tue10/21/23 at 1441, Until 10/22/23 at 1440, For 24 hours hEParin 100 UNIT/ML Lock Flush inj 500 Units 500 Units (5 mL), IV Lock, PRN Other, IV Flush, Starting on Tue10/21/23 at 1441, Until 10/22/23 at 1440, For 24 hours, Do not flush if lock, PICC, or central line not in place; IV infusing or unable to flush. Given 10/21/2023 3:49 PM EST 500 Units Hydrocortisone Sod Suc (PF) (Solu-Cortef) inj 100 mg 100 mg, IV Push, ONCE PRN Other, Hypersensitivity Reaction, Starting on Tue10/21/23 at 1441, Until 10/22/23 at 1440, For 24 hours sodium chloride 0.9 % flush central line 10 mL 10 mL, IV Push, PRN Other, IV Flush, Starting on Tue10/21/23 at 1441, Until 10/22/23 at 1440, For 24 hours, Do not flush if lock, PICC, or central line not in place; IV infusing or unable to flush. Given 10/21/2023 3:49 PM EST 10 mL Inactive Administered Medications [...] 3:15 PM EST 620 mg 500 mL/hr NSS infusion FOR HYDRATION Intravenous, at 50 mL/hr Administer over 10 Hours, ONCE, 1 dose, On Tue10/21/23 at 1515 Start Infusion 10/21/2023 2:58 PM EST 500 mL 50 mL/hr ondansetron (Zofran) tab 8 mg 8 mg, Oral, ONCE, On Tue10/21/23 at 1515, For 1 dose Given 10/21/2023 2:58 PM EST 8 mg documented in this encounter Advance Directives Documents on File Type Date Recorded Patient Sourcing Manager Expl anation Power of Film Processor 12/12/2018 8:46 AM Vipin viveros Power of Film Processor Power of Film Processor 12/12/2018 8:45 AM Zuleyma ferguson Power of Film Processor Latest Code Status on File Code Status [...] the patient have Health Care Power of Film Processor? Yes, not currently available Full Code 11/21/2018 8:53 AM 11/21/2018 2:27 PM This or bull reflects the patients wishes and were consensually agreed upon. Care Teams Sustainability Specialist Relationship Specialty Start Date End Date Kulwinder Byers MD [address] [place] [address] PCP - General 06/28/03 documented as of this encounter
--- OUTSIDE RECORDS SUMMARY | 2024-01-15 19:58 | External Medical Summary | Summary of Care ---
Author Name Unknown Organization [facility] Address [address] [place] [address] Phone [phone] Care Team Providers Care Venetian Blind Assembler Name Role Phone Kulwinder Byers MD Primary Care Provider [phone] Encounter Details Date Type Department Care Team (Late st Contact Info) Description 11/08/2023 Orders Only Hematology/Oncology, [facility] [address] [place] [address] Cate Graham MD [address] [place] [address] Allergies Active Allergy Reactions Criticality [...] 30 Tab 0 12/25/2018 Active nystatin (NYSTOP) 066734 UNIT/GM powder Apply topically to affected area [...] 9:30 AM EST Hem/Onc Treatment Hematology/Oncology Treatment, [place] [address] [place] [address] 12/02/2023 9:15 AM EST Office Visit Hematology/Oncology [facility] [place] [address] [place] [address] Jorge Allen MD [address] [facility], [place] [address] 02/13/2024 2:00 PM EDT Office Visit Cardiology, [facility] [address] [place] [address] Katie Delong CRNP [address] [place] [address] Health Maintenance Due Date Last Done Comments [...] this encounter Medical Devices Implanted Type Area Store Sales Leader Device Identifier Shelf Expiration Date Model / Serial / Lot Comprehensive Srs/Nexel Distal Body Implanted:Qty: 1 on 12/23/2018 by Gautam Jasso MD at [facility] Right: Upper Arm 03/03/2028 [id number] / / [id number] Valve Ricky 3 Ultra 26mm - [id number] Implanted:Qty: 1 on 05/27/2022 by Jesús Weber MD at [facility]S [facility] [employer] [id number] 03/17/2023 [id number] / / Port Implant W/8f Poly Cath - [id number] Implanted:Qty: 1 on 12/29/2022 by Sudhir Lovett DO at OR [facility] Right: Chest CR BARD : PERIPHERAL VASCULAR [id number] 02/12/2024 [id number] / / [id number] documented as of this encounter Advance Directives Documents on File Type Date Recorded Patient Returned Item Clerk Expl anation Power of Roller Billet Mill 12/12/2018 8:46 AM Vipin hcare Power of Roller Billet Mill Power of Roller Billet Mill 12/12/2018 8:45 AM Zuleyma ferguson Power of Roller Billet Mill Latest Code Status on File Code Status [...] patient have Health Care Power of Roller Billet Mill? Yes, not currently available Full Code 11/21/2018 8:53 AM 11/21/2018 2:27 PM This or bull reflects the patients wishes and were consensually agreed upon. Care Teams Venetian Blind Assembler Relationship Specialty Start Date End Date Kulwinder Byers MD [address] [place] [address] PCP - General 06/28/03 documented as of this encounter
--- OUTSIDE RECORDS SUMMARY | 2024-01-15 19:58 | External Medical Summary ---
Author Name Unknown Address Unknown Organization [id number]:LABORATORY [facility] - [facility][note 3] [address] [place] [address] Laboratory Report Ordering Provider Test Date Status WOOD CANTU 10/19/2023 15:25:20 Final Observation Date Value Abnormality Reference (Units ) Status [place] light chains, Free, Serum 10/19/2023 15:25:20 17.74 3.30-19.40 (mg/L) Final Lambda light chains, free, Serum 10/19/2023 15:25:20 1.41 Below low normal 5.71-26.30 (mg/L) Final KAPPA LAMBDA FLC RATIO 10/19/2023 15:25:20 12.58 Above high normal 0.26-1.65 Final Performing Location LABORATORY [facility] - [facility][note 3] [place] [address]
--- OUTSIDE RECORDS SUMMARY | 2024-01-15 19:58 | External Medical Summary ---
Author Name Unknown Address Unknown Organization [id number]:[place] [place] [address] [facility] [place] [address] Laboratory Report Ordering Provider Test Date Status WOOD CANTU 11/02/2023 15:02:18 Final Observation Date Value Abnormality Reference (Units ) Status BUN 11/02/2023 15:02:18 19 6-20 (mg/dL) Final Creatinine 11/02/2023 15:02:18 0.9 0.5-1.0 (mg/dL) Final Glomerular filtration rate/1.73 sq M.predicted [Volume Rate/Area] in Serum, Plasma or Blood by Creatinine-based formula (CKD-EPI) 11/02/2023 15:02:18 66 >=60 (mL/min) Final eGFR is calculated based on the CKD-EPI 2020 equation SODIUM 11/02/2023 15:02:18 139 135-146 (m mol/L) Final Potassium 11/02/2023 15:02:18 4.2 3.5-5.1 (m mol/L) Final Cl 11/02/2023 15:02:18 103 98-107 (mm ol/L) Final CO2 11/02/2023 15:02:18 27 22-32 (mmo l/L) Final Anion gap 11/02/2023 15:02:18 9 7-15 (mmol /L) Final Glucose 11/02/2023 15:02:18 158 Above high normal 70 -120 (mg/dL) Final Albumin 11/02/2023 15:02:18 4.1 3.8-5.0 (g /dL) Final AST (Aspartate aminotransferase) 11/02/2023 15:02:18 17 10-35 (U/L) Fin al Alk Phos 11/02/2023 15:02:18 59 35-130 (U/ L) Final Bilirubin, Total 11/02/2023 15:02:18 0.3 <=1 .2 (mg/dL) Final Calcium 11/02/2023 15:02:18 9.3 8.4-10.2 ( mg/dL) Final Protein 11/02/2023 15:02:18 5.8 Below low normal 6.0 -8.3 (g/dL) Final ALT (Alanine aminotransferase) 11/02/2023 15:02:18 18 10-35 (U/L) Abisai mcconnell Performing Location [facility] [place] [facility] [address] [facility] [address]
--- OUTSIDE RECORDS SUMMARY | 2024-01-15 19:58 | External Medical Summary ---
Author Name Unknown Address Unknown Organization K01:LABORATORY [facility] - [address] [place] [address] Laboratory Report Ordering Provider Test Date Status WOOD CANTU 10/19/2023 15:25:20 Final Observation Date Value Abnormality Reference (Units ) Status IgG 10/19/2023 15:25:20 677 Below low normal 700 -1600 (mg/dL) Final IgA 10/19/2023 15:25:20 439 Above high normal 70 -400 (mg/dL) Final IgM 10/19/2023 15:25:20 13 Below low normal 40- 230 (mg/dL) Final Performing Location LABORATORY [facility] - [address] [place] [address]
--- OUTSIDE RECORDS SUMMARY | 2024-01-15 19:59 | External Medical Summary | Summary of Care ---
Author Name Unknown Organization [facility] Address [address] [facility] [place] [address] Phone [phone] Care Team Providers Care Vacuum Drier Tender Name Role Phone Kulwinder Byers MD Primary Care Provider Reason for Visit * Reason Onset Date Comments Precert Future 10/04/2023 privigen Encounter Details Date Type Department Care Team (Late st Contact Info) Description 10/04/2023 Telephone Hematology/Oncology Treatment, [place] [address] [place] [address] Jorge Allen MD [address] [place] [address] Precert Future (privigen) Allergies Active Allergy Reactions Criticality Noted Date Comments Adhesive Tape 05/28/2003 documented as of this encounter (statuses as of 10/04/2023) Medications Medication Sig Dispensed Refills Start Date [...] 30 Tab 0 12/25/2018 Active nystatin (NYSTOP) 265115 UNIT/GM powder Apply topically to affected area 2 times a day. Apply to abd. Skin folds 15 g 0 12/25/2018 Active atorvaSTATin (LIPITOR) 10 MG Tablet daily. 0 01/24/2019 Active Steel Rolling WalkerIndications:Mu ltiple myeloma not having achieved remission (HCC),Gait disturbance Use as directed . Rollator walker 1 Each 0 05/13/2022 Active Phospha 250 Neutral 155-852-130 MG Oral TabletIndications:Mu ltiple myeloma not having achieved remission (HCC),Hypophosphatem ia TAKE BY MOUTH 1 TABLET 2 TIMES A DAY . 180 Tablet 1 07/01/2022 Active Ondansetron HCl 8 MG Oral Tablet [...] Tablet Take by mouth . 0 Active Dexamethasone 4 MG Oral Tablet (Decadron)Indication s:Multiple myeloma not having achieved remission (HCC) Take 20mg once a week 60 Tablet 1 09/16/2022 Active Acyclovir 400 MG Oral Tablet (Zovirax)Indications [...] THE MORNING 90 Tablet 3 05/24/2023 Active Potassium Chloride ER 10 MEQ Oral Tablet Extended ReleaseIndications:M ultiple myeloma not having achieved remission (HCC),Hypokalemia TAKE BY MOUTH 1 TABLET IN THE MORNING AND 1 TABLET IN THE EVENING BEFORE BEDTIME. 180 Tablet 0 06/06/2023 Active Furosemide 20 MG Oral Tablet (Lasix)Indications:S [...] for Pain, Breakthrough. 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 [place] plan built and routed for signature. Waiting for auth. documented in this encounter Plan of Treatment Upcoming Encounters Date Type Department Care Team (Late st Contact Info) Description 10/07/2023 2:30 PM EST Hem/Onc Treatment Hematology/Oncology Treatment, [place] [address] [place] [address] Ritu, Chair 2 Hem Onc Scenery [address] [place] [address] 10/19/2023 3:30 PM EST Cardiac Studies Cardiac Studies, [facility] [address] [place] [address] 12/02/2023 9:15 AM EST Office Visit Hematology/Oncology [facility] [address] [place] [address] Jorge Allen MD [address] [place] [address] 02/13/2024 2:00 PM EDT Office Visit Cardiology, [facility] [address] [place] [address] Katie Delong CRNP [address] [place] [address] Health Maintenance Due Date Last Done Comments DXA Scan 1940 COVID-19 Vaccine (#1) 1945 Depression Screening 1952 Diabetic Eye Exam 1958 Diabetic Foot Exam 1958 DTaP,Tdap,and Td Vaccines (1 - Tdap) 1959 Zoster Vaccines (1 of 2) 1959 Hepatitis B (1 of 3 - Risk 3-dose series) 2000 HbA1c 06/10/2021 12/11/2020, 07/11/2019, 12/21/2018 Albumin/Creatinine Ratio 12/11/2021 12/11/2020 Influenza Vaccine (FLU shot) (#1) 2023 GFR 09/29/2024 09/29/2023, 09/14, 09/15/2023, Additional history exists Pneumococcal Vaccine: 65+ Years Completed 02/18/2017, 01/12/2010 GARDASIL-HPV IMMUNIZATION SERIES Aged Out No longer eligible based on patient's age to complete this topic MENINGOCOCCAL (MENACTRA/MENVEO) Aged Out No longer eligible based on patient's age to complete this topic documented as of this encounter Medical Devices Implanted Type Area Juvenile Court Judge Device Identifier Shelf Expiration Date Model / Serial / Lot Comprehensive Srs/Nexel Distal Body Implanted:Qty: 1 on 12/23/2018 by Gautam Jasso MD at OR [facility] Right: Upper Arm 03/03/2028 [id number] / / [id number] Valve Ricky 3 Ultra 26mm - [id number] Implanted:Qty: 1 on 05/27/2022 by Jesús Weber MD at [facility] [email or web address] [id number] 03/17/2023 [id number] / / Port Implant W/8f Poly Cath - [id number] Implanted:Qty: 1 on 12/29/2022 by Sudhir Lovett DO at OR [facility] Right: Chest CR BARD : PERIPHERAL VASCULAR [id number] 02/12/2024 [id number] / / [id number] documented as of this encounter Advance Directives Documents on File Type Date Recorded Patient Bacon Slicer Expl anation Power of Deputy Director Of Finance 12/12/2018 8:46 AM Vipin viveros Power of Deputy Director Of Finance Power of Deputy Director Of Finance 12/12/2018 8:45 AM Zuleyma ferguson Power of Deputy Director Of Finance Latest Code Status on File Code Status [...] the patient have Health Care Power of Deputy Director Of Finance? Yes, not currently available Full Code 11/21/2018 8:53 AM 11/21/2018 2:27 PM This or bull reflects the patients wishes and were consensually agreed upon. Care Teams Vacuum Drier Tender Relationship Specialty Start Date End Date Kulwinder Byers MD [address] [address] PCP - General 06/28/03 documented as of this encounter
--- OUTSIDE RECORDS SUMMARY | 2024-01-15 19:59 | External Medical Summary ---
Author Name Unknown Address Unknown Organization K01:[place] [place] [address] [facility] [address] [facility] [address] Laboratory Report Ordering Provider Test Date Status RADHA ESTRELLA 10/19/2023 15:25:20 Final Observation Date Value Abnormality Reference (Units ) Status HbA1C 10/19/2023 15:25:20 6.4 Above high normal 4. 0-5.6 (%) Final The use of HbA1c to monitor glycemic status is based on normal hemoglobin and HbA composition. This test should not be used in patients with abnormal hemoglobin that affects the half life of the red blood cell or the in vivo glycation rates. Glucose, estimated average 10/19/2023 15:25:20 137 Above high normal <126 (mg/dL) Abisai mcconnell Performing Location [place] [facility] [place] [address] [facility] [address]
--- OUTSIDE RECORDS SUMMARY | 2024-01-15 19:59 | External Medical Summary ---
Author Name Unknown Address Unknown Organization K01:[place] [facility] [place] [address] [facility] [place] [address] Laboratory Report Ordering Provider Test Date Status WOOD CANTU 10/05/2023 03:50:00 Final Observation Date Value Abnormality Reference (Units ) Status SYNC LEUKOCYTES IN BLOOD BY AUTOMATED COUNT 10/05/2023 03:50:00 2.20 Below low normal 4.00-10.80 (K/uL) Final Segs 10/05/2023 03:50:00 64.5 40.0-75.0 (%) Final Lymphs % 10/05/2023 03:50:00 8.6 Below low normal 18.0-42.0 (%) Final Monos 10/05/2023 03:50:00 23.6 Above high normal 1.0-11.0 (%) Final Eosinophils 10/05/2023 03:50:00 2.3 0.0-6.0 (%) Final Basos 10/05/2023 03:50:00 0.5 0.0-2.0 (%) Final Immature Granulocyte, Percent 10/05/2023 03:50:00 0.5 0.0-2.0 (%) Final Absolute Segs 10/05/2023 03:50:00 1.42 Below low normal 1.80-7.70 (K/uL) Final Lymphs, absolute 10/05/2023 03:50:00 0.19 Below low normal 1.00-4.80 (K/ul) Final Monos, Abs 10/05/2023 03:50:00 0.52 0.00-1.10 (K/uL) Final Eos, Abs 10/05/2023 03:50:00 0.05 0.00-0.70 (K/uL) Final Basos, Abs 10/05/2023 03:50:00 0.01 0.00-0.20 (K/uL) Final Immature Granulocytes, Number 10/05/2023 03:50:00 0.01 0.00-0.20 (K/uL) Final Performing Location [facility] [facility] [place] [facility] [address] [facility] [address]
--- OUTSIDE RECORDS SUMMARY | 2024-01-15 19:59 | External Medical Summary ---
Author Name Unknown Address Unknown Organization K01:LABORATORY [place] [address] [place] [address] Laboratory Report Ordering Provider Test Date Status WOOD CANTU 10/05/2023 03:50:00 Final Observation Date Value Abnormality Reference (Units ) Status WBC, Total 10/05/2023 03:50:00 2.20 Below low normal 4.00-10.80 (K/uL) Final RBC 10/05/2023 03:50:00 3.32 3.85-5.15 (M/uL) Final Hemoglobin 10/05/2023 03:50:00 11.2 Below low normal 12.0-15.3 (g/dL) Final HCT 10/05/2023 03:50:00 34.6 Below low normal 36.0-45.2 (%) Final MCV 10/05/2023 03:50:00 104.2 81.5-97.5 (fL) Final MCH 10/05/2023 03:50:00 33.7 27.0-34.0 (pg) Final MCHC 10/05/2023 03:50:00 32.4 32.0-36.0 (g/dL) Final RDW 10/05/2023 03:50:00 15.5 11.5-15.5 (%) Final Platelets 10/05/2023 03:50:00 104 Below low normal 140-400 (K/uL) Final MPV 10/05/2023 03:50:00 12.1 6.6-11.1 (fL) Final Nucleated erythrocytes/100 leukocytes [Ratio] in Blood by Automated count 10/05/2023 03:50:00 0 <=0 (/100 WBCs) Final Performing Location LABORATORY [facility] [place] - [address] [place] [address]
--- OUTSIDE RECORDS SUMMARY | 2024-01-15 19:59 | External Medical Summary | Summary of Care ---
Author Name Unknown Organization [facility] Address [address] [facility] [place] [address] Phone [phone] Care Team Providers Care Leasing Director Name Role Phone Kulwinder Byers MD Primary Care Provider Reason for Visit * Reason Onset Date Comments Medication Refill 10/10/2023 Encounter Details Date Type Department Care Team (Late st Contact Info) Description 10/10/2023 Refill Hematology/Oncology [facility] [place] [address] [facility] [place] [address] Jorge Allen MD [address] [facility] [place] [address] Multiple myeloma not having achieved remission (HCC) Allergies Active Allergy Reactions Criticality Noted Date Comments Adhesive Tape 05/28/2003 documented as of this encounter (statuses as of 10/10/2023) Medications Medication Sig Dispensed Refills Start Date [...] 30 Tab 0 12/25/2018 Active nystatin (NYSTOP) 600250 UNIT/GM powder Apply topically to affected area [...] 0 Active Dexamethasone 4 MG Oral Tablet (Decadron)Indicati ons:Multiple myeloma not having achieved remission (HCC) Take 20mg once a week 60 Tablet 1 09/16/2022 Active Acyclovir 400 MG Oral Tablet (Zovirax)Indicatio [...] 06/06/2023 Active Furosemide 20 MG Oral Tablet (Lasix)Indications [...] Pain, Breakthrough. 60 Tablet 0 10/10/2023 Active oxyCODONE HCl 5 MG Oral Tablet (Oxy IR)Indications:Mul tiple myeloma not having achieved remission (HCC) Take 1 Tablet by mouth every 6 hours as needed for Pain, Breakthrough. 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 * Telephone Encounter - Love Quick RN - 10/10/2023 1:27 PM ESTPending Prescriptions: Disp Refills oxyCODONE HCl 5 MG Oral Tablet (Oxy IR) 60 Tab*0 Sig: Take 1 Tablet by mouth every 6 hours as needed for Pain, Breakthrough. * Telephone Encounter - Love Quick RN - 10/10/2023 1:27 PM EST PDMP reviewed. Oxycodone filled 08/26/23 for 60 tabs. No concerns. * Telephone Encounter - Robina Lechuga CPhT - 10/10/2023 1:04 PM EST Pt requests high priority. Did you pend patient's preferred pharmacy and medication before forwarding?yes Pharmacy: [id number] [address] [facility] Pending Prescriptions: Disp Refills oxyCODONE HCl 5 [...] appointment Last date the medication was ordered: 08/26/23 Is this request for a controlled substance?Yes, What was the last refill date 08/26/23 w/ quantity 60 and dosage 5 mg and Urine Drug Screen Not completed Urine Drug Screen:No results found. However, due to the size of the patient record, not all encounters were searched. Please check Results Review for a complete set of results. Patient Phone Numbers Labs: Lab Results Component Value Date/Time CREAT 0.9 10/05/2023 03:50 AM CREAT 0.9 12/11/2020 09:50 AM POTASSIUM 4.3 10/05/2023 03:50 AM POTASSIUM 3.9 12/11/2020 09:50 AM TSH 1.13 10/08/2022 11:49 AM TSH 1.78 06/13/2020 03:25 PM LDLDIRECT 56 06/13/2020 03:25 PM ALT 13 10/05/2023 03:50 AM ALT 13 12/11/2020 09:50 AM HGBA1C 6.3 (H) 12/11/2020 09:50 AM documented in this encounter Plan of Treatment Upcoming Encounters Date Type Department Care Team (Late st Contact Info) Description 10/14/2023 9:00 AM EST Hem/Onc Treatment Hematology/Oncology Treatment, [place] [address] [facility] [address] [place] [address] Ritu, Chair 6 Hem Onc [address] [place] [address] 10/19/2023 3:30 PM EST [facility] [address] [place] [address] 12/02/2023 9:15 AM EST Office Visit Hematology/Oncology [facility] [place] [address] [facility] [place] [address] Jorge Allen MD [address] [facility] [place] [address] 02/13/2024 2:00 PM EDT [facility] [address] [place] [address] Katie Delong CRNP [address] [place] [address] Health Maintenance Due Date Last Done Comments [...] Influenza Vaccine (FLU shot) (#1) 2023 GFR 10/05/2024 10/05/2023, 09/14, 09/23/2023, Additional history exists Pneumococcal Vaccine: 65+ Years Completed 02/18/2017, 01/12/2010 GARDASIL-HPV IMMUNIZATION SERIES Aged Out No longer eligible based on patient's age to complete this topic MENINGOCOCCAL (MENACTRA/MENVEO) Aged Out No longer eligible based on patient's age to complete this topic documented as of this encounter Medical Devices Implanted Type Area Spray Worker Device Identifier Shelf Expiration Date Model / Serial / Lot Comprehensive Srs/Nexel Distal Body Implanted:Qty: 1 on 12/23/2018 by Gautam Jasso MD at [place] [facility] Right: Upper Arm 03/03/2028 [id number] / / [id number] Valve Ricky 3 Ultra 26mm - [id number] Implanted:Qty: 1 on 05/27/2022 by Jesús Weber MD at [facility] [employer] [id number] 03/17/2023 [id number] / / Port Implant W/8f Poly Cath - [id number] Implanted:Qty: 1 on 12/29/2022 by Sudhir Lovett DO at OR [facility] Right: Chest CR BARD : PERIPHERAL VASCULAR [id number] 02/12/2024 [id number] / / [id number] documented as of this encounter Visit Diagnoses Diagnosis Multiple myeloma not having achieved remission (HCC) Multiple myeloma, without mention of having achieved remission documented in this encounter Advance Directives Documents on File Type Date Recorded 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 Yes, not currently available Full Code 11/21/2018 8:53 AM 11/21/2018 2:27 PM This or bull reflects the patients wishes and were consensually agreed upon. Care Teams Leasing Director Relationship Specialty Start Date End Date Kulwinder Byers MD [address] [place] [address] PCP - General 06/28/03 documented as of this encounter
--- OUTSIDE RECORDS SUMMARY | 2024-01-15 19:59 | External Medical Summary | Summary of Care ---
Author Name Unknown Organization [facility] Address [address] [place] [facility] [place] [address] Phone [phone] Care Team Providers Care Practice Consultant Name Role Phone Kulwinder Byers MD Primary Care Provider [phone] Encounter Details Date Type Department Care Team (Late st Contact Info) Description 10/15/2023 Orders Only Laboratory, [facility] [address] [facility] [place] [address] Sachi Soni DO [address] [place] [address] DM type 2, not at goal (HCC)*; Dyslipidemia, goal LDL below 160 Allergies Active Allergy Reactions Criticality Noted Date Comments Adhesive Tape 05/28/2003 documented as of this encounter (statuses as of 10/15/2023) Medications Medication Sig Dispensed Refills Start Date [...] 30 Tab 0 12/25/2018 Active nystatin (NYSTOP) 380533 UNIT/GM powder Apply topically to affected area [...] Pain, Breakthrough. 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 Aortic valve stenosis 2021 documented as of this encounter (statuses as of 10/15/2023) Social History Tobacco Use Types Packs/Day Years [...] 3:30 PM EST Cardiac Studies Cardiac Studies, [facility] [address] [facility] [place] [address] 10/21/2023 2:30 PM EST Hem/Onc Treatment Hematology/Oncology Treatment, [place] [address] [place] [address] Ritu, Chair 6 Hem Onc [facility] [address] [facility] [place] [address] 12/02/2023 9:15 AM EST Office Visit Hematology/Oncology [facility] [place] [address] [place] [address] Jorge Allen MD 200 [facility] [place], [place] [address] 02/13/2024 2:00 PM EDT Office Visit Cardiology, [facility] [address] [place] [address] Katie Delong CRNP [address] [place] [address] Scheduled Orders Name Type Priority Associated Diagnoses Orde r Schedule HEMOGLOBIN A1C Lab Routine DM type 2, not at goal (HCC) Dyslipidemia, goal LDL below 160 Expected: 10/15/2023, Expires: 10/15/2024 LIPID PANEL WITH DIRECT LDL IF TG IS HIGH Lab Routine DM type 2, not at goal (HCC) Dyslipidemia, goal LDL below 160 Expected: 10/15/2023, Expires: 10/15/2024 Health Maintenance Due Date Last Done Comments [...] this encounter Medical Devices Implanted Type Area International Flight Attendant Device Identifier Shelf Expiration Date Model / Serial / Lot Comprehensive Srs/Nexel Distal Body Implanted:Qty: 1 on 12/23/2018 by Gautam Jasso MD at [place] [facility] Right: Upper Arm 03/03/2028 [id number] / / [id number] Valve Ricky 3 Ultra 26mm - [id number] Implanted:Qty: 1 on 05/27/2022 by Jesús Weber MD at [facility] [employer] [id number] 03/17/2023 [id number] / / Port Implant W/8f Poly Cath - [id number] Implanted:Qty: 1 on 12/29/2022 by Sudhir Lovett DO at OR [facility] Right: Chest CR BARD : PERIPHERAL VASCULAR [id number] 02/12/2024 [id number] / / [id number] documented as of this encounter Visit Diagnoses Diagnosis DM type 2, not at goal (HCC)- Primary Type II or unspecified type diabetes mellitus without mention of complication, not stated as uncontrolled Dyslipidemia, goal LDL below 160 Other and unspecified hyperlipidemia documented in this encounter Advance Directives Documents on File Type Date Recorded 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 Yes, not currently available Full Code 11/21/2018 8:53 AM 11/21/2018 2:27 PM This or bull reflects the patients wishes and were consensually agreed upon. Care Teams Practice Consultant Relationship Specialty Start Date End Date Kuwlinder Byers MD [address] [address] PCP - General 06/28/03 documented as of this encounter
--- OUTSIDE RECORDS SUMMARY | 2024-01-15 19:59 | External Medical Summary ---
Author Name Unknown Address Unknown Organization [id number]:LABORATORY [place] [address] [place] [address] Laboratory Report Ordering Provider Test Date Status WOOD CANTU 10/13/2023 15:13:00 Final Observation Date Value Abnormality Reference (Units ) Status WBC, Total 10/13/2023 15:13:00 3.24 Below low normal 4.00-10.80 (K/uL) Final RBC 10/13/2023 15:13:00 3.38 3.85-5.15 (M/uL) Final Hemoglobin 10/13/2023 15:13:00 11.4 Below low normal 12.0-15.3 (g/dL) Final HCT 10/13/2023 15:13:00 35.5 Below low normal 36.0-45.2 (%) Final MCV 10/13/2023 15:13:00 105.0 81.5-97.5 (fL) Final MCH 10/13/2023 15:13:00 33.7 27.0-34.0 (pg) Final MCHC 10/13/2023 15:13:00 32.1 32.0-36.0 (g/dL) Final RDW 10/13/2023 15:13:00 15.4 11.5-15.5 (%) Final Platelets 10/13/2023 15:13:00 114 Below low normal 140-400 (K/uL) Final MPV 10/13/2023 15:13:00 12.5 6.6-11.1 (fL) Final Nucleated erythrocytes/100 leukocytes [Ratio] in Blood by Automated count 10/13/2023 15:13:00 0 <=0 (/100 WBCs) Final Performing Location LABORATORY [facility] [place] - [address] [place] [address]
--- OUTSIDE RECORDS SUMMARY | 2024-01-15 19:59 | External Medical Summary ---
Author Name Unknown Address Unknown Organization [id number]:LABORATORY [facility] - [address] [facility] [place] [address] Laboratory Report Ordering Provider Test Date Status WOOD CATNU 10/05/2023 03:50:00 Final Observation Date Value Abnormality Reference (Units ) Status BUN 10/05/2023 03:50:00 15 6-20 (mg/dL) Final Creatinine 10/05/2023 03:50:00 0.9 0.5-1.0 (mg/dL) Final Glomerular filtration rate/1.73 sq M.predicted [Volume Rate/Area] in Serum, Plasma or Blood by Creatinine-based formula (CKD-EPI) 10/05/2023 03:50:00 63 >=60 (mL/min) Final eGFR is calculated based on the CKD-EPI 2020 equation SODIUM 10/05/2023 03:50:00 145 135-146 (m mol/L) Final Potassium 10/05/2023 03:50:00 4.3 3.5-5.1 (m mol/L) Final Cl 10/05/2023 03:50:00 107 98-107 (mm ol/L) Final CO2 10/05/2023 03:50:00 26 22-32 (mmo l/L) Final Anion gap 10/05/2023 03:50:00 12 7-15 (mmol /L) Final Glucose 10/05/2023 03:50:00 126 Above high normal 70 -120 (mg/dL) Final Albumin 10/05/2023 03:50:00 4.0 3.8-5.0 (g /dL) Final AST (Aspartate aminotransferase) 10/05/2023 03:50:00 13 10-35 (U/L) Fin al Alk Phos 10/05/2023 03:50:00 57 35-130 (U/ L) Final Bilirubin, Total 10/05/2023 03:50:00 0.3 <=1 .2 (mg/dL) Final Calcium 10/05/2023 03:50:00 9.2 8.4-10.2 ( mg/dL) Final Protein 10/05/2023 03:50:00 5.7 Below low normal 6.0 -8.3 (g/dL) Final ALT (Alanine aminotransferase) 10/05/2023 03:50:00 13 10-35 (U/L) Abisai mcconnell Performing Location LABORATORY [facility] - [facility] [address] [facility] [address]
--- OUTSIDE RECORDS SUMMARY | 2024-01-15 19:59 | External Medical Summary | Summary of Care ---
Author Name Unknown Organization [facility] Address [address] [facility] [place] [address] Phone [phone] Care Team Providers Care Plater Hot Dip Name Role Phone Kulwinder Byers MD Primary Care Provider Reason for Visit * Reason Onset Date Comments Precert Future 10/04/2023 privigen Encounter Details Date Type Department Care Team (Late st Contact Info) Description 10/04/2023 Telephone Hematology/Oncology Treatment, [place] 200 [place] [address] Jorge Allen MD 200 [place] [address] Precert Future (privigen) Allergies Active Allergy Reactions Criticality Noted Date Comments Adhesive Tape 05/28/2003 documented as of this encounter (statuses as of 10/05/2023) Medications Medication Sig Dispensed Refills Start Date [...] 30 Tab 0 12/25/2018 Active nystatin (NYSTOP) 074873 UNIT/GM powder Apply topically to affected area [...] as of this encounter (statuses as of 10/05/2023) Active Problems Problem Noted Date Diagnosed Date [...] as of this encounter (statuses as of 10/05/2023) Resolved Problems Problem Noted Date Diagnosed Date 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 * Addendum Note - Cherelle Quick RN [...] Advised her that she will need a belly dump driver for first privigen infusion. Clarified with [...] remind her that she will need a belly dump driver for this appointment (already told her this- but please reinforce it) Thanks! * Telephone Encounter - Cherelle Quick RN - 10/04/2023 12:37 PM EST Order received for privigen. [place] plan built and routed for signature. Waiting for auth. documented in this encounter Plan of Treatment Upcoming Encounters Date Type Department Care Team (Late st Contact Info) Description 10/14/2023 9:00 AM EST Hem/Onc Treatment Hematology/Oncology Treatment, [place] [address] [place] [address] Ritu, Chair 6 Hem Onc [facility] [address] [facility] [place] [address] 10/19/2023 3:30 PM EST Cardiac Studies Card[facility] Studies, [facility] [place] [address] 12/02/2023 9:15 AM EST Office Visit Hematology/Oncology [facility] 200 [facility] [place] [address] Jorge [facility] MD [facility] [address] 02/13/2024 2:00 PM EDT Office Visit Cardiology, [facility] [address] Katie Delong [facility] [address] Health Maintenance Due Date Last Done Comments [...] this encounter Medical Devices Implanted Type Area Restaurant Front Manager Device Identifier Shelf Expiration Date Model / Serial / Lot Comprehensive Srs/Nexel Distal Body Implanted:Qty: 1 on 12/23/2018 by Gautam Jasso MD at OR [facility] Right: Upper Arm 03/03/2028 [id number] / / [id number] Valve Ricky 3 Ultra 26mm - [id number] Implanted:Qty: 1 on 05/27/2022 by Jesús Weber MD at CARD[facility] LABS [facility] [employer] [id number] 03/17/2023 [id number] / / Port Implant W/8f Poly Cath - [id number] Implanted:Qty: 1 on 12/29/2022 by Sudhir Lovett DO at OR [facility] Right: Chest CR BARD : PERIPHERAL VASCULAR [id number] 02/12/2024 [id number] / / [id number] documented as of this encounter Advance Directives Documents on File Type Date Recorded 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 Yes, not currently available Full Code 11/21/2018 8:53 AM 11/21/2018 2:27 PM This or bull reflects the patients wishes and were consensually agreed upon. Care Teams Plater Hot Dip Relationship Specialty Start Date End Date Kulwinder Byers MD [address] [place] [address] PCP - General 06/28/03 documented as of this encounter
--- OUTSIDE RECORDS SUMMARY | 2024-01-15 19:59 | External Medical Summary ---
Author Name Unknown Address Unknown Organization K01[place] [place] [address] [facility] [place] [address] Laboratory Report Ordering Provider Test Date Status WOOD CANTU 10/13/2023 15:13:00 Final Observation Date Value Abnormality Reference (Units ) Status SYNC LEUKOCYTES IN BLOOD BY AUTOMATED COUNT 10/13/2023 15:13:00 3.24 Below low normal 4.00-10.80 (K/uL) Final Segs 10/13/2023 15:13:00 67.6 40.0-75.0 (%) Final Lymphs % 10/13/2023 15:13:00 8.0 Below low normal 18.0-42.0 (%) Final Monos 10/13/2023 15:13:00 21.3 Above high normal 1.0-11.0 (%) Final Eosinophils 10/13/2023 15:13:00 2.5 0.0-6.0 (%) Final Basos 10/13/2023 15:13:00 0.3 0.0-2.0 (%) Final Immature Granulocyte, Percent 10/13/2023 15:13:00 0.3 0.0-2.0 (%) Final Absolute Segs 10/13/2023 15:13:00 2.19 1.80-7.70 (K/uL) Final Lymphs, absolute 10/13/2023 15:13:00 0.26 Below low normal 1.00-4.80 (K/ul) Final Monos, Abs 10/13/2023 15:13:00 0.69 0.00-1.10 (K/uL) Final Eos, Abs 10/13/2023 15:13:00 0.08 0.00-0.70 (K/uL) Final Basos, Abs 10/13/2023 15:13:00 0.01 0.00-0.20 (K/uL) Final Immature Granulocytes, Number 10/13/2023 15:13:00 0.01 0.00-0.20 (K/uL) Final Performing Location [facility] [place] [address] [facility] [address]
--- OUTSIDE RECORDS SUMMARY | 2024-01-15 19:59 | External Medical Summary ---
Author Name Unknown Address Unknown Organization K01:[facility] [address] [facility] [address] Laboratory Report Ordering Provider Test Date Status SAMEERBASEDOW 10/19/2023 15:25:20 Final Observation Date Value Abnormality Reference (Units ) Status Triglyceride 10/19/2023 15:25:20 117 <=174 ( mg/dL) Final Triglyceride Reference Range s (mg/dL):
<150 Acceptable
150-174 Borderline high
175-499 High
>=500 Very high Cholesterol 10/19/2023 15:25:20 148 <200 (mg /dL) Final Total Cholesterol Reference Ranges (mg/dL):
<200 Desirable
200-239 Borderline high
>=240 High HDL 10/19/2023 15:25:20 76 >49 (mg/dL ) Final HDL Cholesterol Reference Ra nges (mg/dL):
>=60 High (Desirable)
<50 Low (Undesirable) For Females
<40 Low (Undesirable) For Males NON-HDL CHOLESTEROL 10/19/2023 15:25:20 72 <=159 (mg/dL) Final Non-HDL Cholesterol Referenc e Range (mg/dL):
<100 Target level for high risk ASCVD patient
<130 Optimal for general population
130-159 Near optimal for general population
160-189 Borderline High
190-219 High
>=220 Very High LDL, (calculated) 10/19/2023 15:25:20 49 <= 129 (mg/dL) Final LDL Cholesterol Reference Ra nges (mg/dL):
<70 Target level for high risk ASCVD patient
<100 Optimal for general population
100-129 Near optimal for general population
130-159 Borderline high
160-189 High
>=190 Very high Performing Location [facility] [place] [address] [facility] [address]
--- OUTSIDE RECORDS SUMMARY | 2024-01-15 19:59 | External Medical Summary | Summary of Care ---
Author Name Unknown Organization [facility] Address [address] [facility] [place] [address] Phone [phone] Care Team Providers Care Senior Packaging Engineer Name Role Phone Kulwinder Byers MD Primary Care Provider [phone] Reason for Visit * Reason Comments Chemotherapy C12D1 Darzalex faspr o & cytoxan; privigen * Episode Based Medications (Routine) - Authorized Specialty Diagnoses / Procedures Referred By Contac t Referred To Contact Diagnoses Multiple myeloma not having achieved remission (HCC) Procedures MS DARATUMUMAB, HYALURONIDASE MS CYCLOPHOSPHAMIDE 100 MG INJ Jorge Allen MD [address] [place] [address] Anc Hem/Onc [facility] DEPT CLOSED - 09/27/23 [address] [place] [address] Referral ID Status Reason Start Date Expiration Date V isits Requested Visits Authorized [id number] Authorized 07/23/2022 11/13/2099 999 99 Encounter Details Date Type Department Care Team (Latest Contact Info) Description 10/14/2023 9:00 AM EST Hem/Onc Treatment Hematology/Oncolog y Treatment, [place] [address] [place] [address] Ritu, Chair 6 Hem Onc Scenery [address] [place] [address] Multiple myeloma not having achieved remission (HCC)*; Hypogammaglobulinemia (HCC); Encounter for antineoplastic chemotherapy Allergies Active Allergy Reactions Criticality Noted Date Comments Adhesive Tape 05/28/2003 documented as of this encounter (statuses as of 10/17/2023) Medications Medication Sig Dispensed Refills Start Date [...] 30 Tab 0 12/25/2018 Active nystatin (NYSTOP) 311073 UNIT/GM powder Apply topically to affected area [...] as of this encounter (statuses as of 10/17/2023) Active Problems Problem Noted Date Diagnosed Date [...] as of this encounter (statuses as of 10/17/2023) Resolved Problems Problem Noted Date Diagnosed Date 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 Possible barriers to meeting goals: ambulation with IV pole, use of assistive device for ambulation Stability of the patient: Moderately stable - low risk of patient condition declining or worsening Summary regarding today's goals: Met: patient without injury during treatment today. Functional status at today's visit: Capable of [...] or adverse side effects during treatment. Pt tolerated ordered medications well. No complaints. Waiting on ride. Discharged in stable condition. * Sachi De La O RN - 10/14/2023 12:36 PM EST Chair 7 Pt here for C12D1 cytoxan, darzalex faspro and first privigen infusion. C/o L hip pain. States she just took oxy which usually works well for her pain. Chemo agents cytoxan, darzalex faspro Appetite "ok" Nausea/Vomiting denies Diarrhea denies Constipation denies Mucositis denies Fatigue yes Bleeding denies Infection denies Rash denies Numbness tingling denies Pain yes Radiation no ABN Labs WNL for treatment [...] 3:30 PM EST Cardiac Studies Cardiac Studies, [facility] [address] [place] [address] 10/21/2023 2:30 PM EST Hem/Onc Treatment Hematology/Oncology Treatment, [place] [address] [place] [address] Ritu, Chair 6 Hem Onc [address] [place] [address] 12/02/2023 9:15 AM EST Office Visit Hematology/Oncology [facility] [place] [address] [place] [address] Jorge Allen MD [address] [facility] [place] [address] 02/13/2024 2:00 PM EDT Office Visit Cardiology, [facility] [address] [place] [address] Katie Delong CRNP [address] [place] [address] Health Maintenance Due Date Last Done Comments [...] this encounter Medical Devices Implanted Type Area Parts Assembler Device Identifier Shelf Expiration Date Model / Serial / Lot Comprehensive Srs/Nexel Distal Body Implanted:Qty: 1 on 12/23/2018 by Gautam Jasso MD at OR [facility] Right: Upper Arm 03/03/2028 [id number] / / [id number] Valve Ricky 3 Ultra 26mm - [id number] Implanted:Qty: 1 on 05/27/2022 by Jesús Weber MD at CARDIAC LABS [facility] [employer] [id number] 03/17/2023 [id number] / / Port Implant W/8f Poly Cath - [id number] Implanted:Qty: 1 on 12/29/2022 by Sudhir Lovett DO at OR [facility] Right: Chest CR BARD : PERIPHERAL VASCULAR [id number] 02/12/2024 [id number] / / [id number] documented as of this encounter Visit Diagnoses [...] 650 mg 650 mg, Oral, ONCE, On Tue10/14/23 at 1000, For 1 dose, Maximum of 4 grams (4000 mg) per day. Given 10/14/2023 9:45 AM EST 650 mg cycloPHOSphamide (Cytoxan) 620 mg in NSS 250 mL infusion 620 mg (rounded from 621 mg = 300 mg/m2 2.07 m2 Treatment Plan BSA from Recorded weight), IV Piggyback, at 500 mL/hr, Cyclophosphamide doses over 1g should be in 500 mL. May extend infusion to 1 hour if not tolerated., ONCE, 1 dose, On Tue10/14/23 at 1000 Start Infusion 10/14/2023 10:10 AM EST 620 mg 500 mL/hr Daratumumab-hyaluronida se-fihj (Darzalex Faspro) 1800 mg-27821 units/ 15 ml subcut inj 15 mL, Subcutaneous, ONCE, On Tue10/14/23 at 1100, For 1 dose, Inject subcutanteously into abdomen over 3 to 5 minutes Given 10/14/2023 10:10 AM EST 15 mL Abdomen Left Lower diphenhydrAMINE (Benadryl) cap 50 mg 50 mg, Oral, ONCE, On Tue10/14/23 at 1000, For 1 dose Given 10/14/2023 9:45 AM EST 50 mg hEParin 100 UNIT/ML Lock Flush inj 500 Units 500 Units (5 mL), IV Lock, PRN Other, IV Flush, Starting on Tue10/14/23 at 0917, Until Tue10/14/23 at 1713, For 24 hours, Do not flush if lock, PICC, or central line not in place; IV infusing or unable to flush. Given 10/14/2023 12:59 PM EST 500 Units Immune Globulin Human- IVIG 10% (Privigen) IV 20 g 20 g, IV Piggyback, ONCE, 1 dose, On Tue10/14/23 at 1000, Total dose = 30 gm [...] Infusion duration = 1.7 hours Rate Change 10/14/2023 12:00 PM EST 335 mL/hr Start Infusion 10/14/2023 11:56 AM EST 20 g 167 mL/h r Immune Globulin Human-IVIG 10% (Privigen) IV 10 g 10 g, IV Piggyback, ONCE, 1 dose, On Tue10/14/23 at 1000, Total dose = 30 gm [...] Infusion duration = 1.7 hours Rate Change 10/14/2023 11:45 AM EST 167 mL/hr Rate Change 10/14/2023 11:30 AM EST 84 mL/hr Rate Change 10/14/2023 11:10 AM EST 42 mL/hr NSS infusion FOR HYDRATION Intravenous, at 50 mL/hr Administer over 10 Hours, ONCE, 1 dose, On Tue10/14/23 at 1000 Start Infusion 10/14/2023 9:40 AM EST 500 mL 50 mL/hr ondansetron (Zofran) tab 8 mg 8 mg, Oral, ONCE, On Tue10/14/23 at 1000, For 1 dose Given 10/14/2023 9:45 AM EST 8 mg sodium chloride 0.9 % flush central line 10 mL 10 mL, IV Push, PRN Other, IV Flush, Starting on Tue10/14/23 at 0917, Until Tue10/14/23 at 1713, For 24 hours, Do not flush if lock, PICC, or central line not in place; IV infusing or unable to flush. Given 10/14/2023 12:58 PM EST 10 mL documented in this encounter Advance Directives Documents on File Type Date Recorded Patient Manager Drilling Expl anation Power of Construction Controller 12/12/2018 8:46 AM Vipin viveros Power of Construction Controller Power of Construction Controller 12/12/2018 8:45 AM Zuleyma ferguson Power of Construction Controller Latest Code Status on File Code [...] the patient have Health Care Power of Construction Controller? Yes, not currently available Full Code 11/21/2018 8:53 AM 11/21/2018 2:27 PM This or bull reflects the patients wishes and were consensually agreed upon. Care Teams Senior Packaging Engineer Relationship Specialty Start Date End Date Kulwinder Byers MD [address] [place] [address] PCP - General 06/28/03 documented as of this encounter
--- OUTSIDE RECORDS SUMMARY | 2024-01-15 19:59 | External Medical Summary | Summary of Care ---
Author Name Unknown Organization [facility] Address [address] [facility] [place] [address] Phone [phone] Care Team Providers Care Host Name Role Phone Kulwinder Byers MD Primary Care Provider Reason for Visit * Reason Onset Date Comments Advice 09/29/2023 Encounter Details Date Type Department Care Team (Late st Contact Info) Description 09/29/2023 Telephone Hematology/Oncology Treatment, [place] [address] [place] [address] Kulwinder Byers MD [address] [place] [address] [address] Advice Allergies Active Allergy Reactions Criticality Noted Date Comments Adhesive Tape 05/28/2003 documented as of this encounter (statuses as of 10/03/2023) Medications Medication Sig Dispensed Refills Start Date [...] 30 Tab 0 12/25/2018 Active nystatin (NYSTOP) 858405 UNIT/GM powder Apply topically to affected area [...] as of this encounter (statuses as of 10/03/2023) Active Problems Problem Noted Date Diagnosed Date Encounter for central line care 03/04/2023 S/P [...] as of this encounter (statuses as of 10/03/2023) Resolved Problems Problem Noted Date Diagnosed Date 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 * Telephone Encounter - Love Quick RN - 09/30/2023 4:19 PM EST Attempted to call patient several times- busy signal. * Addendum Note - Alondra Allen MD - 09/30/2023 4:03 PM ESTAddended by: ALONDRA ALLEN on: 09/30/2023 04:03 PM Modules accepted: Orders * Telephone Encounter - Alondra Allen MD - 09/30/2023 4:02 PM EST - ordered IVIG at 400 mg/kg every 4 weekly. * Telephone Encounter - Love Quick RN - 09/29/2023 2:05 PM EST Called patient. Patient has had persistent cough, SOB, congestion for several weeks now- has not been improving. Denies fever. Had previously advised patient to follow with PCP- patient states that she did not do this as Dr Byers left and she doesn't feel anyone there really knows her. Reviewed with Dr Allen - patient to have STAT CXR - cancel treatment tomorrow - offer IVIG infusions due to persistent/ frequent infections Called patient. She is agreeable to CXR. States that she has a home COVID test at home so will takethis as well. Aware that treatment tomorrow will be cancelled, already has appt scheduled next week. Patient is agreeable to IVIG. Dr Allen: please place IVIG order. Scheduling: please cancel treatment appt tomorrow. * Telephone Encounter - Robina Torres LPN - 09/29/2023 11:26 AM EST Phone call from patient regarding recent illness. Pt is wondering if she should have any extra labsdrawn today or if she should have a covid test. I advised patient that she should have a covid testif she is sick and before she returns to clinic. Pt requests a call back from Love at her convenience. documented in this encounter Plan of Treatment Upcoming Encounters Date Type Department Care Team (Late st Contact Info) Description 10/07/2023 2:30 PM EST Hem/Onc Treatment Hematology/Oncology Treatment, [place] [address] [place] [address] Ritu, Chair 2 Hem Onc [facility] [address] [facility] [place] [address] 10/19/2023 3:30 PM EST Cardiac Studies Cardiac Studies, [facility] [address] [facility] [place] [address] 12/02/2023 9:15 AM EST Office Visit Hematology/Oncology [address] [place] [address] Alondra Allen MD [address] [facility] [place] [address] 02/13/2024 2:00 PM EDT Office Visit Cardiology, [facility] [address] [facility] [place] [address] [facility] [address] [facility] [address] Health Maintenance Due Date Last Done Comments [...] this encounter Medical Devices Implanted Type Area Oxygen Equipment Aide Device Identifier Shelf Expiration Date Model / Serial / Lot Comprehensive Srs/Nexel Distal Body Implanted:Qty: 1 on 12/23/2018 by Gautam Jasso MD at OR [facility] Right: Upper Arm 03/03/2028 [id number] / / [id number] Valve Ricky 3 Ultra 26mm - [id number] Implanted:Qty: 1 on 05/27/2022 by Jesús Weber MD at [facility]ARDIAC LABS [facility] [employer] [id number] 03/17/2023 [id number] / / Port Implant W/8f Poly Cath - [id number] Implanted:Qty: 1 on 12/29/2022 by Sudhir Lovett DO at OR [facility] Right: Chest CR BARD : PERIPHERAL VASCULAR [id number] 02/12/2024 [id number] / / [id number] documented as of this encounter Procedures Procedure Name Priority Date/Time Associated Diagnosis Comments XR CHEST 2 VIEWS STAT 09/29/2023 3:15 PM EST Multiple myeloma not having achieved remission (HCC) documented in this encounter Results * XR CHEST 2 VIEWS (09/29/2023 3:15 PM EST) Anatomical Region Laterality Modality Chest Computed Radiogr aphy 09/29/2023 3:27 PM EST Impressions 09/29/2023 3:24 PM EST IMPRESSION: Focus of linear atelectasis in the left mid lung. Otherwise no focal consolidation. Narrative 09/29/2023 3:24 PM EST EXAM: EXAM: XR CHEST 2 VIEWS DATE TIME: 09/29/2023 - 09/29/2023 3:15 pm HISTORY: 83 y/o F persistent cough, shortness of breath, congestion, ?pneumonia TECHNIQUE: Two views of the chest COMPARISON: Chest radiograph 05/28/2022. FINDINGS: Right chest wall port terminates near the superior cavoatrial junction. Left chest wall pacemaker with leads terminating in the right atrium and right ventricle. Focus of linear atelectasis in the left mid lung. Otherwise no focal consolidation. No pleural effusion or pneumothorax. Cardiac silhouette is mildly enlarged. Status post TAVR. Degenerative changes of the spine. Several chronic rib fracture deformities. Procedure Note Kristian Birch MD - 09/29/2023 EXAM: EXAM: XR CHEST 2 VIEWS DATE TIME: 09/29/2023 - 09/29/2023 3:15 pm HISTORY: 83 y/o F persistent cough, shortness of breath, congestion, ?pneumonia TECHNIQUE: Two views of the chest COMPARISON: Chest radiograph 05/28/2022. FINDINGS: Right chest wall port terminates near the superior cavoatrial junction.Left chest wall pacemaker with leads terminating in the right atrium andright ventricle. Focus of linear atelectasis in the left mid lung. Otherwise no focalconsolidation. No pleural effusion or pneumothorax. Cardiac silhouette is mildly enlarged. Status post TAVR. Degenerative changes of the spine. Several chronic rib fracturedeformities. IMPRESSION IMPRESSION: Focus of linear atelectasis in the left mid lung. Otherwise no focalconsolidation. Alondra Allen MD RADIOLOGY (RAD GENER AL) documented in this encounter Visit Diagnoses Diagnosis Hypogammaglobulinemia (HCC)- Primary Hypogammaglobulinaemia, unspecified Multiple myeloma not having achieved remission (HCC) Multiple myeloma, without mention of having achieved remission documented in this encounter Advance Directives Documents on File Type Date Recorded Patient Moulder Operator Expl anation Power of Coil Binder 12/12/2018 8:46 AM Vipin viveros Power of Coil Binder Power of Coil Binder 12/12/2018 8:45 AM Zuleyma ferguson Power of Coil Binder Latest Code Status on File Code Status [...] the patient have Health Care Power of Coil Binder? Yes, not currently available Full Code 11/21/2018 8:53 AM 11/21/2018 2:27 PM This or bull reflects the patients wishes and were consensually agreed upon. Care Teams Host Relationship Specialty Start Date End Date Kulwinder Byers MD [address] [address] PCP - General 06/28/03 documented as of this encounter
--- OUTSIDE RECORDS SUMMARY | 2024-01-15 19:59 | External Medical Summary | Summary of Care ---
Author Name Unknown Organization [facility] Address [address] [facility] [place] [address] Phone [phone] Care Team Providers Care Vessel Ordinary Seaman Name Role Phone Kulwinder Byers MD Primary Care Provider Reason for Visit * Reason Comments Chemotherapy C12D1 Darzalex faspr o & cytoxan; privigen * Episode Based Medications (Routine) - Authorized Specialty Diagnoses / Procedures Referred By Contac t Referred To Contact Diagnoses Multiple myeloma not having achieved remission (HCC) Procedures [place] DARATUMUMAB, HYALURONIDASE [place] CYCLOPHOSPHAMIDE 100 MG INJ Jorge Allen MD [address] [place] [address] Anc Hem/Onc [facility] DEPT CLOSED - 09/27/23 [address] [place] [address] Referral ID Status Reason Start Date Expiration Date V isits Requested Visits Authorized [id number] Authorized 07/23/2022 11/13/2099 999 99 Encounter Details Date Type Department Care Team (Latest Contact Info) Description 10/14/2023 9:00 AM EST Hem/Onc Treatment Hematology/Oncolog y Treatment, [place] [address] [place] [address] Ritu, Chair 6 Hem Onc Scen[address] [place] [address] Multiple myeloma not having achieved remission (HCC)*; Hypogammaglobulinemia (HCC); Encounter for antineoplastic chemotherapy Allergies Active Allergy Reactions Criticality Noted Date Comments Adhesive Tape 05/28/2003 documented as of this encounter (statuses as of 10/14/2023) Medications Medication Sig Dispensed Refills Start Date [...] 30 Tab 0 12/25/2018 Active nystatin (NYSTOP) 102223 UNIT/GM powder Apply topically to affected area [...] as of this encounter (statuses as of 10/14/2023) Active Problems Problem Noted Date Diagnosed Date [...] as of this encounter (statuses as of 10/14/2023) Resolved Problems Problem Noted Date Diagnosed Date 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 Aortic valve stenosis 2021 documented as of this encounter (statuses as of 10/14/2023) Social History Tobacco Use Types Packs/Day Years [...] 3:30 PM EST Cardiac Studies Cardiac Studies, [facility] [address] [place] [address] 10/21/2023 2:30 PM EST Hem/Onc Treatment Hematology/Oncology Treatment, [place] [address] [place] [address] Ritu, Chair 6 Hem Onc [address] [place] [address] 12/02/2023 9:15 AM EST Office Visit Hematology/Oncology [facility] [place] [address] [facility] [place] [address] Jorge Allen MD [address] [facility] [place] [address] 02/13/2024 2:00 PM EDT Office Visit Cardiology, [facility] [address] [place] [address] Katie Delong CRNP [address] [place] [address] Health Maintenance Due Date Last Done Comments [...] this encounter Medical Devices Implanted Type Area Cigar Packer And Picker Device Identifier Shelf Expiration Date Model / Serial / Lot Comprehensive Srs/Nexel Distal Body Implanted:Qty: 1 on 12/23/2018 by Gautam Jasso MD at [place] [facility] Right: Upper Arm 03/03/2028 [id number] / / [id number] Valve Ricky 3 Ultra 26mm - [id number] Implanted:Qty: 1 on 05/27/2022 by Jesús Weber MD at [facility]ARDIAC LAB[facility] [employer] [id number] 03/17/2023 [id number] / / Port Implant W/8f Poly Cath - [id number] Implanted:Qty: 1 on 12/29/2022 by Sudhir Lovett DO at OR [facility] Right: Chest CR BARD : PERIPHERAL VASCULAR [id number] 02/12/2024 [id number] / / [id number] documented as of this encounter Visit Diagnoses [...] previous infusion reaction with IVIG, Starting on Tue10/14/23 at 1030, Until Discontinued, Maximum of 4 grams (4000 mg) per day. Acetaminophen (Tylenol) tab 650 mg 650 mg, Oral, ONCE PRN Other, or Chills, Starting on Tue10/14/23 at 0918, Until 10/15/23 at 0917, For 24 hours, Maximum of 4 grams (4000 mg) per day. 4 hours after initial dose. diphenhydrAMINE (Benadryl) cap 25 mg 25 mg, Oral, ONCE PRN If previous infusion reaction with IVIG, Starting on Tue10/14/23 at 1030, Until Discontinued diphenhydrAMINE (Benadryl) cap 25 mg 25 mg, Oral, ONCE PRN Other, Fever/Chills, Starting on Tue10/14/23 at 0918, Until 10/15/23 at 0917, For 24 hours, 4 hours after initial dose diphenhydrAMINE (Benadryl) inj 50 mg 50 mg, IV Push, ONCE PRN Other, Hypersensitivity Reaction, Starting on Tue10/14/23 at 0917, Until 10/15/23 at 0916, For 24 hours diphenhydrAMINE (Benadryl) inj 50 mg 50 mg, IV Push, ONCE PRN Other, Hypersensitivity Reaction, Starting on Tue10/14/23 at 0918, Until 10/15/23 at 0917, For 24 hours EPINEPHrine 1 MG/ML inj 0.3 mg 0.3 mg, Intramuscular, ONCE PRN Other, Hypersensitivity Reaction or Anaphylaxis, Starting on Tue10/14/23 at 0917, Until 10/15/23 at 0916, For 24 hours EPINEPHrine 1 MG/ML inj 0.3 mg 0.3 mg, Intramuscular, ONCE PRN Other, Hypersensitivity Reaction or Anaphylaxis, Starting on Tue10/14/23 at 0918, Until 10/15/23 at 0917, For 24 hours hEParin 100 UNIT/ML Lock Flush inj 500 Units 500 Units (5 mL), IV Lock, PRN Other, IV Flush, Starting on Tue10/14/23 at 0917, Until 10/15/23 at 0916, For 24 hours, Do not flush if lock, PICC, or central line not in place; IV infusing or unable to flush. Given 10/14/2023 12:59 PM EST 500 Units hEParin 100 UNIT/ML Lock Flush inj 500 Units 500 Units (5 mL), IV Lock, PRN Other, IV Flush, Starting on Tue10/14/23 at 0918, Until 10/15/23 at 0917, For 24 hours, Do not flush if lock, PICC, or central line not in place; IV infusing or unable to flush. Hydrocortisone Sod Suc (PF) (Solu-Cortef) inj 100 mg 100 mg, IV Push, ONCE PRN Other, Hypersensitivity Reaction, Starting on Tue10/14/23 at 0917, Until 10/15/23 at 0916, For 24 hours Hydrocortisone Sod Suc (PF) (Solu-Cortef) inj 100 mg 100 mg, IV Push, ONCE PRN Other, Hypersensitivity Reaction, Starting on Tue10/14/23 at 0918, Until 10/15/23 at 0917, For 24 hours meperidine (Demerol) 25 MG/ML inj 25 mg 25 mg, IV Push, ONCE PRN Shivering, Starting on Tue10/14/23 at 0917, Until 10/15/23 at 0916, For 24 hours NSS infusion 500 mL, Intravenous, at 50 mL/hr, CONTINUOUS, Starting on Tue10/14/23 at 1030, Until Tue10/14/23 at 2028 oxygen GAS Inhalation, OXYGEN, First dose on Tue10/14/23 at 1000, Until Discontinued, Device/Managed by: Low [...] Flush, Starting on Tue10/14/23 at 0917, Until 10/15/23 at 0916, For 24 hours, Do not flush if lock, PICC, or central line not in place; IV infusing or unable to flush. Given 10/14/2023 12:58 PM EST 10 mL sodium chloride 0.9 % flush central line 10 mL 10 mL, IV Push, PRN Other, IV Flush, Starting on Tue10/14/23 at 0918, Until 10/15/23 at 0917, For 24 hours, Do not flush if [...] 10:10 AM EST 620 mg 500 mL/hr Daratumumab-hyaluronidas e-fihj (Darzalex Faspro) 1800 mg-40899 units/ 15 ml subcut inj 15 mL, Subcutaneous, ONCE, On Tue10/14/23 at 1100, For 1 dose, Inject subcutanteously into abdomen over 3 to 5 minutes Given 10/14/2023 10:10 AM EST 15 mL Abdomen Left Lower diphenhydrAMINE (Benadryl) cap 50 mg 50 mg, Oral, ONCE, On Tue10/14/23 at 1000, For 1 dose Given 10/14/2023 9:45 AM EST 50 mg Immune Globulin Human- IVIG 10% (Privigen) [...] Given 10/14/2023 9:45 AM EST 8 mg documented in this encounter Advance Directives Documents on File Type Date Recorded Patient Tank Tester Expl anation Power of Bus And Sys Integration Senior Manager 12/12/2018 8:46 AM Vipin viveros Power of Bus And Sys Integration Senior Manager Power of Bus And Sys Integration Senior Manager 12/12/2018 8:45 AM Zuleyma ferguson Power of Bus And Sys Integration Senior Manager Latest Code Status on File Code [...] the patient have Health Care Power of Bus And Sys Integration Senior Manager? Yes, not currently available Full Code 11/21/2018 8:53 AM 11/21/2018 2:27 PM This or bull reflects the patients wishes and were consensually agreed upon. Care Teams Vessel Ordinary Seaman Relationship Specialty Start Date End Date Kulwinder Byers MD [address] [place] [address] PCP - General 06/28/03 documented as of this encounter
--- OUTSIDE RECORDS SUMMARY | 2024-01-15 19:59 | External Medical Summary | Summary of Care ---
Author Name Unknown Organization [facility] Address [address] [facility] [place] [address] Phone [phone] Care Team Providers Care Ticket Printer And Tagger Name Role Phone Kuwlinder Byers MD Primary Care Provider [phone] Reason for Visit * Reason Onset Date Comments Precert Future 10/04/2023 privigen Encounter Details Date Type Department Care Team (Late st Contact Info) Description 10/04/2023 Telephone Hematology/Oncology Treatment, [place] [address] [place] [address] Jorge Allen MD 200 [place] [address] Precert Future (privigen) Allergies Active Allergy Reactions [...] 30 Tab 0 12/25/2018 Active nystatin (NYSTOP) 430635 UNIT/GM powder Apply topically to affected area [...] Advised her that she will need a vending route driver for first privigen infusion. Clarified with [...] remind her that she will need a vending route driver for this appointment (already told her this- but please reinforce it) Thanks! * Telephone Encounter - Cherelle Quick RN - 10/04/2023 12:37 PM EST Order received for privigen. [place] plan built and routed for signature. Waiting for auth. documented in this encounter Plan of Treatment Upcoming Encounters Date Type Department Care Team (Late st Contact Info) Description 10/07/2023 2:30 PM EST Hem/Onc Treatment Hematology/Oncology Treatment, [place] [address] [place] [address] Ritu, Chair 2 Hem Onc Scenery [address] [place] [address] 10/19/2023 3:30 PM EST Cardiac Studies Cardiac Studies, [facility] [place] 132 [facility] [place] [address] 12/02/2023 9:15 AM EST Office Visit Hematology/Oncology [facility] [place] 200 [facility] [place] [address] Jorge Allen MD 200 [facility] [place] [address] 02/13/2024 2:00 PM EDT Office Visit Cardiology, [facility] [address] [facility] [place] [address] Katie Delong CRNP [address] [place] [address] Health Maintenance Due Date Last Done Comments [...] this encounter Medical Devices Implanted Type Area Medicinal Chemist Device Identifier Shelf Expiration Date Model / Serial / Lot Comprehensive Srs/Nexel Distal Body Implanted:Qty: 1 on 12/23/2018 by Gautam Jasso [place] [facility] [place]: Upper Arm 03/03/2028 [id number] / / [id number] Valve Ricky 3 Ultra 26mm - [id number] Implanted:Qty: 1 on 05/27/2022 by Jesús Weber MD at [facility] [facility] [place] [employer] [id number] 03/17/2023 [id number] / / Port Implant W/8f Poly Cath - [id number] Implanted:Qty: 1 on 12/29/2022 by Sudhir Lovett, at OR [facility] Right: Chest CR BARD : PERIPHERAL VASCULAR [id number] 02/12/2024 [id number] / / [id number] documented as of this encounter Advance Directives Documents on File Type Date Recorded Patient Manager Of Housekeeping Expl anation Power of Weed Science Research Technician 12/12/2018 8:46 AM Vipin viveros Power of Weed Science Research Technician Power of Weed Science Research Technician 12/12/2018 8:45 AM Zuleyma ferguson Power of Weed Science Research Technician Latest Code Status on File Code [...] the patient have Health Care Power of Weed Science Research Technician? Yes, not currently available Full Code 11/21/2018 8:53 AM 11/21/2018 2:27 PM This or bull reflects the patients wishes and were consensually agreed upon. Care Teams Ticket Printer And Tagger Relationship Specialty Start Date End Date Kulwinder Byers MD [address] [place] [address] PCP - General 06/28/03 documented as of this encounter
--- OUTSIDE RECORDS SUMMARY | 2024-01-15 19:59 | External Medical Summary ---
Author Name Unknown Address Unknown Organization [id number]:LAB[facility]ATORY [facility] - [address] [facility] [place] [address] Laboratory Report Ordering Provider Test Date Status WOOD CANTU 10/13/2023 15:13:00 Final Observation Date Value Abnormality Reference (Units ) Status BUN 10/13/2023 15:13:00 20 6-20 (mg/dL) Final Creatinine 10/13/2023 15:13:00 1.1 Above high normal 0.5-1.0 (mg/dL) Final Glomerular filtration rate/1.73 sq M.predicted [Volume Rate/Area] in Serum, Plasma or Blood by Creatinine-based formula (CKD-EPI) 10/13/2023 15:13:00 48 Below low normal >=60 (mL/min) Final eGFR is calculated based on the CKD-EPI 2020 equation SODIUM 10/13/2023 15:13:00 142 135-146 (m mol/L) Final Potassium 10/13/2023 15:13:00 4.7 3.5-5.1 (m mol/L) Final Cl 10/13/2023 15:13:00 105 98-107 (mm ol/L) Final CO2 10/13/2023 15:13:00 27 22-32 (mmo l/L) Final Anion gap 10/13/2023 15:13:00 10 7-15 (mmol /L) Final Glucose 10/13/2023 15:13:00 141 Above high normal 70 -120 (mg/dL) Final Albumin 10/13/2023 15:13:00 3.9 3.8-5.0 (g /dL) Final AST (Aspartate aminotransferase) 10/13/2023 15:13:00 19 10-35 (U/L) Fin al Result may be falsely elevat ed due to hemolysis. Alk Phos 10/13/2023 15:13:00 59 35-130 (U/ L) Final Bilirubin, Total 10/13/2023 15:13:00 0.3 <=1 .2 (mg/dL) Final Calcium 10/13/2023 15:13:00 9.2 8.4-10.2 ( mg/dL) Final Protein 10/13/2023 15:13:00 5.7 Below low normal 6.0 -8.3 (g/dL) Final ALT (Alanine aminotransferase) 10/13/2023 15:13:00 14 10-35 (U/L) Abisai mcconnell Performing Location [facility] - [facility] [address] [address]
--- OUTSIDE RECORDS SUMMARY | 2024-01-15 19:59 | External Medical Summary ---
Author Name Unknown Address Unknown Organization [id number]:LABORATORY [facility] - [address] [place] [address] Laboratory Report Ordering Provider Test Date Status WOOD CANTU 10/05/2023 03:50:00 Final Observation Date Value Abnormality Reference (Units ) Status Acanthocytes [Presence] in Blood by Light microscopy 10/05/2023 03:50:00 Moderate Abnormal None Seen Final Performing Location LABORATORY [facility] - [address] [place] [address]
--- OUTSIDE RECORDS SUMMARY | 2024-01-15 19:59 | External Medical Summary | Summary of Care ---
Author Name Unknown Organization [facility] Address [address] [facility] [address] Phone [phone] Care Team Providers Care Inspector Precision Assembly Name Role Phone Kulwinder Byers MD Primary Care Provider [phone] Reason for Visit * Reason Comments Outpatient Testing Encounter Details Date Type Department Care Team (Late st Contact Info) Description 10/13/2023 8:00 AM EST Laboratory Laboratory, [place] [address] [place] [address] [place], Laboratory [address] [place], [place] [id number] Multiple myeloma not having achieved remission (HCC) Allergies Active Allergy Reactions Criticality Noted Date Comments Adhesive Tape 05/28/2003 documented as of this encounter (statuses as of 10/13/2023) Medications Medication Sig Dispensed Refills Start Date [...] 30 Tab 0 12/25/2018 Active nystatin (NYSTOP) 877640 UNIT/GM powder Apply topically to affected area [...] as of this encounter (statuses as of 10/13/2023) Active Problems Problem Noted Date Diagnosed Date [...] as of this encounter (statuses as of 10/13/2023) Resolved Problems Problem Noted Date Diagnosed Date 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 Aortic valve stenosis 2021 documented as of this encounter (statuses as of 10/13/2023) Social History Tobacco Use Types Packs/Day Years [...] 9:00 AM EST Hem/Onc Treatment Hematology/Oncology Treatment, [place] [address] [place] [address] Ritu, Chair 6 Hem Onc Scenery [address] [place] [address] 10/19/2023 3:30 PM EST Cardiac Studies [facility], [facility] [place] [address] 12/02/2023 9:15 AM EST Office Visit Hematology/Oncology [facility] 200 [facility] [place] [address] Jorge Allen MD 200 [facility] [place] [address] 02/13/2024 2:00 PM EDT Office Visit Cardiology, [facility] 132 [facility] [place] [address] Katie Delong CRNP 132 [facility] [place] [address] Pending Results Name Type Priority Associated Diagnoses Date /Time CBC WITH WBC DIFFERENTIAL Lab STAT Multiple myeloma not having achieved remission (HCC) 10/13/2023 3:13 PM EST COMPREHENSIVE METABOLIC PANEL Lab STAT Multiple myeloma not having achieved remission (HCC) 10/13/2023 3:13 PM EST CBC Lab STAT Multiple myeloma not having achieved remission (HCC) 10/13/2023 3:13 PM EST DIFFERENTIAL, AUTOMATED Lab STAT Multiple myeloma not having achieved remission (HCC) 10/13/2023 3:13 PM EST Health Maintenance Due Date Last Done Comments DXA Scan 1940 COVID-19 Vaccine (#1) 1945 Depression Screening 1952 Diabetic Eye Exam 1958 Diabetic Foot Exam 1958 DTaP,Tdap,and Td Vaccines (1 - Tdap) 1959 Zoster Vaccines (1 of 2) 1959 Hepatitis B (1 of 3 - Risk 3-dose series) 2000 HbA1c 06/10/2021 12/11/2020, 07/3 11/2019, 12/21/2018 Albumin/Creatinine Ratio 12/11/2021 12/11/2020 Influenza Vaccine [...] this encounter Medical Devices Implanted Type Area Blower Mechanic Device Identifier Shelf Expiration Date Model / Serial / Lot Comprehensive Srs/Nexel Distal Body Implanted:Qty: 1 on 12/23/2018 by Gautam Jasso MD at [place] [facility] [place] Right: Upper Arm 03/03/2028 [id number] / / [id number] Valve Ricky 3 Ultra 26mm - [id number] Implanted:Qty: 1 on 05/27/2022 by Jesús Weber MD at [place] [facility] [place] [employer] [id number] 03/17/2023 [id number] / / Port Implant W/8f Poly Cath - [id number] Implanted:Qty: 1 on 12/29/2022 by Sudhir Lovett DO at OR [facility] Right: Chest CR BARD : PERIPHERAL VASCULAR [id number] 02/12/2024 [id number] / / [id number] documented as of this encounter Visit Diagnoses Diagnosis Multiple myeloma not having achieved remission (HCC) Multiple myeloma, without mention of having achieved remission documented in this encounter Advance Directives Documents on File Type Date Recorded Patient Route Driver Expl anation Power of Relay Checker 12/12/2018 8:46 AM Vipin hcare Power of Relay Checker Power of Relay Checker 12/12/2018 8:45 AM Selene ncienedina Power of Relay Checker Latest Code Status on File Code [...] the patient have Health Care Power of Relay Checker? Yes, not currently available Full Code 11/21/2018 8:53 AM 11/21/2018 2:27 PM This or bull reflects the patients wishes and were consensually agreed upon. Care Teams Inspector Precision Assembly Relationship Specialty Start Date End Date Kulwinder Byers MD [address] [address] PCP - General 06/28/03 documented as of this encounter
--- OUTSIDE RECORDS SUMMARY | 2024-01-15 19:59 | External Medical Summary | Summary of Care ---
Author Name Unknown Organization [facility] Address [address] [facility] [address] Phone [phone] Care Team Providers Care Stage Technician Name Role Phone Kulwinder Byers MD Primary Care Provider Reason for Visit * Reason Comments Outpatient Testing Encounter Details Date Type Department Care Team (Late st Contact Info) Description 10/05/2023 3:40 PM EST Laboratory Laboratory, [place] [address] [place] [id number] [place], [facility] [address], [place] [phone] Multiple myeloma not having achieved remission (HCC) [...] 30 Tab 0 12/25/2018 Active nystatin (NYSTOP) 464029 UNIT/GM powder Apply topically to affected area [...] 9:00 AM EST Hem/Onc Treatment Hematology/Oncology Treatment, [place] [address] [place] [address] Ritu, Chair 6 Hem Onc Scenery [address] [place] [address] 10/19/2023 3:30 PM EST Cardiac Studies Cardiac Studies, [facility] [place] [address] 12/02/2023 9:15 AM EST Office Visit Hematology/Oncology [facility] 200 [facility] [place] [address] Jorge Allen MD 200 [facility] [place] [address] 02/13/2024 2:00 PM EDT Office Visit Cardiology, [facility] 132 [facility] [place] [address] Katie Delong CRNP 132 [facility] [place] [address] Pending Results Name Type Priority Associated Diagnoses Date /Time CBC WITH WBC DIFFERENTIAL Lab STAT Multiple myeloma not having achieved remission (HCC) 10/05/2023 3:50 AM EST COMPREHENSIVE METABOLIC PANEL Lab STAT Multiple myeloma not having achieved remission (HCC) 10/05/2023 3:50 AM EST CBC Lab STAT Multiple myeloma not having achieved remission (HCC) 10/05/2023 3:50 AM EST DIFFERENTIAL, AUTOMATED Lab STAT Multiple myeloma not having achieved remission (HCC) 10/05/2023 3:50 AM EST Health Maintenance Due Date Last [...] this encounter Medical Devices Implanted Type Area Weight Guesser Device Identifier Shelf Expiration Date Model / Serial / Lot Comprehensive Srs/Nexel Distal Body Implanted:Qty: 1 on 12/23/2018 by Gautam Jasso MD [place] [facility] [place]: Upper Arm 03/03/2028 [id number] / / [id number] Valve Ricky 3 Ultra 26mm - [id number] Implanted:Qty: 1 on 05/27/2022 by Jesús Weber MD [place] [facility] [place] [employer] [id number] 03/17/2023 [id number] / / Port Implant W/8f Poly Cath - [id number] Implanted:Qty: 1 on 12/29/2022 by Sudhir Lovett DO at OR [facility] Right: Chest CR BARD : PERIPHERAL VASCULAR [id number] 02/12/2024 [id number] / / [id number] documented as of this encounter Visit Diagnoses Diagnosis Multiple myeloma not having achieved remission (HCC) Multiple myeloma, without mention of having achieved remission documented in this encounter Advance Directives Documents on File Type Date Recorded Patient Material Flow Analyst Expl anation Power of Mix Mill Tender 12/12/2018 8:46 AM Vipin viveros Power of Mix Mill Tender Power of Mix Mill Tender 12/12/2018 8:45 AM Zuleyma ferguson Power of Mix Mill Tender Latest Code Status on File Code Status [...] the patient have Health Care Power of Mix Mill Tender? Yes, not currently available Full Code 11/21/2018 8:53 AM 11/21/2018 2:27 PM This or bull reflects the patients wishes and were consensually agreed upon. Care Teams Stage Technician Relationship Specialty Start Date End Date Kulwinder Byers MD [address] [address] PCP - General 06/28/03 documented as of this encounter
--- OUTSIDE RECORDS SUMMARY | 2024-01-15 19:59 | External Medical Summary ---
Author Name Unknown Address Unknown Organization K0G:LABORATORY [place] [facility] - [address] [place] [address] Laboratory Report Ordering Provider Test Date Status WOOD CANTU 10/19/2023 15:25:20 Final Observation Date Value Abnormality Reference (Units ) Status WBC, Total 10/19/2023 15:25:20 5.99 4.00-10.8 0 (K/uL) Final RBC 10/19/2023 15:25:20 3.33 3.85-5.15 (M/uL) Final Hemoglobin 10/19/2023 15:25:20 11.2 Below low normal 12 .0-15.3 (g/dL) Final HCT 10/19/2023 15:25:20 33.8 Below low normal 36. 0-45.2 (%) Final MCV 10/19/2023 15:25:20 101.5 81.5-97.5 (fL) Final MCH 10/19/2023 15:25:20 33.6 27.0-34.0 (pg) Final MCHC 10/19/2023 15:25:20 33.1 32.0-36.0 (g/dL) Final RDW 10/19/2023 15:25:20 15.1 11.5-15.5 (%) Final Platelets 10/19/2023 15:25:20 128 Below low normal 140 -400 (K/uL) Final MPV 10/19/2023 15:25:20 11.5 6.6-11.1 ( fL) Final Performing Location [facility] - [address] [place] [address]
--- OUTSIDE RECORDS SUMMARY | 2024-01-15 19:59 | External Medical Summary | Summary of Care ---
Author Name Unknown Organization [facility] Address [address] [facility] [place] [address] Phone [phone] Care Team Providers Care Inventory Control Planner Name Role Phone Kulwinder Byers MD Primary Care Provider Reason for Visit * Reason Onset Date Comments Advice 09/29/2023 Encounter Details Date Type Department Care Team (Late st Contact Info) Description 09/29/2023 Telephone Hematology/Oncology Treatment, [place] [address] [place] [address] Kulwinder Byers MD [address] [place] [address] [address] Advice Allergies Active Allergy Reactions Criticality Noted [...] 30 Tab 0 12/25/2018 Active nystatin (NYSTOP) 751115 UNIT/GM powder Apply topically to affected area [...] 2:30 PM EST Hem/Onc Treatment Hematology/Oncology Treatment, [place] [address] [place] [address] Ritu, Chair 2 Hem Onc [facility] 200 [facility] [place] [address] 10/19/2023 3:30 PM EST Cardiac Studies Cardiac Studies, [facility] [place] [address] 12/02/2023 9:15 AM EST Office Visit Hematology/Oncology [address] [place] [address] Alondra Allen MD [address] [place] [address] 02/13/2024 2:00 PM EDT Office Visit Cardiology, [facility] [place] [address] Katie Delong CRNP 132 [facility] [place] [address] Health Maintenance Due Date Last Done Comments [...] this encounter Medical Devices Implanted Type Area Candy Maker Device Identifier Shelf Expiration Date Model / Serial / Lot Comprehensive Srs/Nexel Distal Body Implanted:Qty: 1 on 12/23/2018 by Gautam Jasso MD [place] [facility] [place]: Upper Arm 03/03/2028 [id number] / / [id number] Valve Ricky 3 Ultra 26mm - [id number] Implanted:Qty: 1 on 05/27/2022 by Jesús Weber MD [place] [facility] [place] [employer] [id number] 03/17/2023 [id number] / / Port Implant W/8f Poly Cath - [id number] Implanted:Qty: 1 on 12/29/2022 by Sudhir Lovett DO at OR [facility] Right: Chest CR BARD : PERIPHERAL VASCULAR [id number] 02/12/2024 [id number] / / [id number] documented as of this encounter Procedures Procedure [...] the left mid lung. Otherwise no focalconsolidation. Alonrda Allen MD RADIOLOGY (RAD GENER AL) documented in this encounter Visit Diagnoses Diagnosis Hypogammaglobulinemia (HCC)- Primary Hypogammaglobulinaemia, unspecified Multiple myeloma not having achieved remission (HCC) Multiple myeloma, without mention of having achieved remission documented in this encounter Advance Directives Documents on File Type Date Recorded Patient Android Developer Expl anation Power of Staff Cytotechnologist 12/12/2018 8:46 AM Vipin viveros Power of Staff Cytotechnologist Power of Staff Cytotechnologist 12/12/2018 8:45 AM Zuleyma ferguson Power of Staff Cytotechnologist Latest Code Status on File Code Status [...] the patient have Health Care Power of Staff Cytotechnologist? Yes, not currently available Full Code 11/21/2018 8:53 AM 11/21/2018 2:27 PM This or bull reflects the patients wishes and were consensually agreed upon. Care Teams Inventory Control Planner Relationship Specialty Start Date End Date Kulwinder Byers MD [address] [place] [address] PCP - General 06/28/03 documented as of this encounter
[2024-01-15 20:51] LABS: Basophils # (auto) 0.01 K/uL (0.00-0.20); Basophils % (auto) 0.4 %; Eosinophils # (auto) 0.11 K/uL (0.00-0.50); Eosinophils % (auto) 3.9 %; Hematocrit (blood only) 33.3 % (37.0-47.0); Hemoglobin 10.9 g/dl (12.0-16.0); Immature Granulocytes # (auto) 0.01 K/uL (0.01-0.20); Immature Granulocytes % (auto) 0.4 %; Lymphocytes % (auto) 3.5 %; Mean Corpuscular Hemoglobin 30.8 pg (25.0-34.0); Mean Corpuscular Hgb Conc 32.7 g/dL (32.0-36.0); Mean Corpuscular Volume 94.1 fL (80.0-100.0); Mean Platelet Volume 13.1 fL (9.4-12.4); Monocytes % (auto) 17.6 %; Neutrophils # (auto) 2.11 K/uL (1.40-6.50); Neutrophils % (auto) 74.2 %; Platelet Count 80 K/uL (130-400); RDW Coefficient of Variation 17.8 % (11.5-14.5); RDW Standard Deviation 61.1 fL (36.4-46.3); Red Blood Count 3.54 M/uL (4.20-5.40); White Blood Count 2.84 K/ul (4.8-10.8)
[2024-01-15 21:14] LABS: Alanine Aminotransferase 15 U/L (7-52); Albumin Globulin Ratio 1.2 (0.9-2); Albumin Level 3.3 gm/dl (3.4-5.0); Alkaline Phosphatase 48 U/L (34-104); Anion Gap 8 (3-11); Aspartate Aminotransferase 15 U/L (13-39); BUN Creatinine Ratio 42.5 (10-20); Bilirubin,Total 0.3 mg/dl (0.2-1.0); Blood Urea Nitrogen 37 mg/dl (6-23); Calcium 8.6 mg/dl (8.6-10.3); Carbon Dioxide 25 mmol/L (21-32); Chloride 106 mmol/L (98-107); Est GFR (African American) 71.4 ml/min; Est GFR (Non-African American) 61.6 ml/min; Globulin 2.8 gm/dl (2.5-4.0); Glucose 208 mg/dl (70-99(Fasting)); Potassium 4.1 mmol/L (3.5-5.1); Sodium 139 mmol/L (136-145); Total Protein 6.1 gm/dl (6.0-8.3)
[2024-01-15 21:21] LABS: Troponin I High Sensitivity 15.4 pg/ml (0-14)
[2024-01-15 21:30] LABS: INR 1.3 (0.9-1.1); Prothrombin Time 14.1 Seconds (9.0-12.0)
[2024-01-15] MEDS: OPTIRAY 320 125ml IV ONE (21:31)
[2024-01-15 21:34] LABS: Adenovirus PCR Not Detected (NotDetected); Bordetella parapertussis PCR Not Detected (NotDetected); Bordetella pertussis PCR Not Detected (NotDetected); Chlamydia pneumoniae PCR Not Detected (NotDetected); Coronavirus 229E PCR Not Detected (NotDetected); Coronavirus CoV-2 (COVID19)PCR Not Detected (NotDetected); Coronavirus HKU1 PCR Not Detected (NotDetected); Coronavirus NL63 PCR Not Detected (NotDetected); Coronavirus OC43PCR Not Detected (NotDetected); Human Metapneumovirus PCR Not Detected (NotDetected); Influenza A PCR Not Detected (NotDetected); Influenza B PCR Not Detected (NotDetected); Mycoplasma pneumoniae PCR Not Detected (NotDetected); Parainfluenza Virus 1 PCR Not Detected (NotDetected); Parainfluenza Virus 2 PCR Not Detected (NotDetected); Parainfluenza Virus 3 PCR Not Detected (NotDetected); Parainfluenza Virus 4 PCR Not Detected (NotDetected); Respiratory Syncytial VirusPCR Not Detected (NotDetected); Rhinovirus/Enterovirus PCR Not Detected (NotDetected)
--- NOTE | 2024-01-15 21:53 | CT Scan Report ---
Exam(s): CTA CHEST IV Amt: OPTIRAY 320 117ML EXAM: CT Angiography Chest With Intravenous Contrast CLINICAL HISTORY: Reason for exam: PE vs PNA. TECHNIQUE: Axial computed tomographic angiography images of the chest with intravenous contrast. CTDI is 28.14 mGy and DLP is 817.34 mGy-cm. Automated exposure control was utilized for the study. A dose lowering technique was utilized adhering to the principles of ALARA. MIP reconstructed images were created and reviewed. COMPARISON: CT of the chest 06/09/22 FINDINGS: Pulmonary arteries: Unremarkable. No pulmonary embolus. Aorta: No acute findings. No thoracic aortic aneurysm. Lungs: Perihilar and bibasilar atelectasis, right greater than left. No mass. Pleural space: Unremarkable. No significant effusion. No pneumothorax. Heart: Cardiomegaly with postoperative changes. Moderate atherosclerotic disease of the coronary arteries. No significant pericardial effusion. No evidence of RV dysfunction. Bones/joints: No acute fracture. No dislocation. Multiple lucent lesions throughout the thoracic, likely Schmorl nodes. Soft tissues: 7 mm right thyroid gland lucent lesions Lymph nodes: Unremarkable. No enlarged lymph nodes. Tubes, lines and devices: Left-sided pacemaker. IMPRESSION: No pulmonary embolus. Perihilar and bibasilar right greater than left Electronically signed by: Carley Cochran MD 01/15/24 21:52 PM
[2024-01-15 22:03] LABS: Appearance Urine Clear (Clear); Bacteria Urine Automated Negative (Negative); Bilirubin Urine Negative (Negative); Blood Urine Negative (Negative); Cast Urine Automated 0 /lpf (0-5); Color Urine Yellow; Epithelial Cell Urine Auto >30 /lpf (0-5); Glucose Urine UA Negative (Negative); Ketones Urine Negative (Negative); Leukocyte Esterase Urine 1+ (Negative); Nitrite Urine Negative (Negative); Protein Urine Trace (Negative); RBC Urine Automated 0-4 /hpf (0-4); Specific Gravity Urine 1.024 (1.000-1.030); Urobilinogen Urine Negative (Negative); pH Urine 5.5 (4.5-7.5)
--- NOTE | 2024-01-15 22:08 | Emergency Department Note ---
Impression & Plan Exertional dyspnea ED Provider Note NAME: SURI ADAIR AGE: 83 SEX: F : 1940 ARRIVES VIA: Walk-In INFORMANT: Patient, ED PROVIDER(S): Jose Allen MD CHIEF COMPLAINT: Shortness of breath HPI: This is a 83-year-old female with history of Multiple myeloma,bilateral pulmonary embolism, HFpEF, obesity, type 2 diabetes, hypertension, pacemaker placement, valve replacement presenting for shortness of breath. Patient notes that this afternoon she began having worsening shortness of breath. She feels he is having difficulty with taking deep inspiration. This does feel somewhat similar to previous PE. She states she takes warfarin for her valve replacement. She states her last INR was 1.9 last week. Otherwise she notes no nausea or vomiting. No chest pain. No pleurisy. She states she has a CPAP which she is using at home without relief of her symptoms. ROS: See above HPI for pertinent positives & negatives. A total of 10 systems reviewed and were otherwise negative. PAST MEDICAL HISTORY: See Below PAST SURGICAL HISTORY: See Below FAMILY HISTORY: See Below SOCIAL HISTORY: See Below HOME MEDICATIONS: See Below ALLERGIES: See Below VITALS: See Below PHYSICAL EXAMINATION: General: resting comfortably in no acute distress Head: Normocephalic and atraumatic Eyes: Normal inspection, extraocular muscles intact Ear, nose, throat: Normal external exam Neck: Normal range of motion Respiratory: lungs clear to auscultation bilaterally Cardiovascular: Regular rate/rhythm, no murmur GI: soft, nontender, no guarding or rebound Extremities: nontender, moves all extremities Neuro: The patient awake and alert, appropriately conversive, no focal deficits, symmetric faces Skin: Warm, dry, and intact MEDICAL DECISION MAKING: This is an 83-year-old female with history of PE, HFpEF, obesity, tachycardia use, hypertension, pacemaker, valve replacement presenting for shortness of breath. Will check patient's blood work, INR EKG and chest x-ray at this time. -Chest Xray independently interpreted by me showing no cardiomegaly, possible opacity in the right lower lobe, no pneumothorax -Patient blood work does reveal leukopenia as well as slight anemia is. She appears improved from patient's previous baseline. -Patient INR is 1.3, will proceed to CTA PE protocol to rule out PE as patient does state that her symptoms feel similar. She is having mild respiratory difficulty at this time. - respiratory viral panel is negative at this time -CTA reveals no PE but does reveal atelectasis. -Patient still exertionally dyspneic, unable to walk even 5 feet to the bathroom at this time. This is unusual for her. Patient still requiring oxygen. Will admit for further workup of hypoxia, possible CHF exacerbation. Differential diagnosis: ACS, PE, pneumonia, viral syndrome ER treatment provided: See below Diagnostics interpreted by me: ECG: ECG independently interpreted by me with atrially sensed, ventricularly paced, rate of 99, left bundle branch block, normal QTc, no ST segment elevations consistent with STEMI criteria Cardiac Monitoring: An order was placed for continuous cardiac monitoring. The monitor shows a rate of 103 with sinus rhythm. Laboratory studies: As stated above and show below. Imaging studies: See below. Past Med/Surg History Medical History Hypomagnesemia Vitamin D deficiency Aortic stenosis CHF exacerbation (HFpEF) heart failure with preserved ejection fraction Pancytopenia Acute on chronic respiratory failure with hypoxia Sepsis Pneumonia due to 2019 novel coronavirus Endometrial intraepithelial neoplasia (EIN) Myeloma Morbid obesity Post-menopausal bleeding Degenerative disc disease Osteoarthritis Hyperlipidemia Diabetes mellitus, type 2 History of seizure Sleep apnea Urinary leakage Basal cell carcinoma Cervical radiculopathy Positional vertigo Post herpetic neuralgia Hemorrhoids Pulmonary embolism Depression Plasmacytoma of bone Anxiety Fracture, humerus Surgical History Aortic valve replaced History of surgery S/P tubal ligation S/P tooth extraction History of endometrial biopsy S/P dilation and curettage History of cataract surgery History of tonsillectomy History of appendectomy History of bilateral carpal tunnel release History of cholecystectomy History of knee replacement procedure of left knee History of knee replacement procedure of right knee H/O surgical biopsy Family History Mother Myocardial infarction Congestive heart failure Father Malignant neoplasm of oral cavity Sister Diabetes Breast cancer Son Hypertension Grandmother Diabetes Denies family history of Prostate cancer Lung cancer Colorectal cancer Social History Smoking Status: Never smoker Second Hand Exposure: No; Do You Dip or Chew Tobacco: No; Hx Alcohol Use: No Hx Substance Use: No Preferred Language: Swazi Visual Impairment: No Limitations Hearing Ability: Normal Shoe Coverer Required: No Beliefs That Will Affect Care: None marital status: / Current Living Situation: Family Current Living Situation Comment: lives with son and [id number] current occupational status: 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 Feels Safe at Home: Yes Childhood Exposure to Second-Hand Smoke: No Diet: other caffeine: Yes (1 cup/day) during the past year weight has: remained stable Dental Care, Regularly: No Physical Activity Frequency: Does not Exercise Seatbelt Use: sometimes Sunscreen Use: Yes Assistive Devices: Cane (Uses when outside of home) Allergies Allergies Allergy/AdvReac Type Severity Reaction Status Date / Time adhesive tape AdvReac Mild Skin rash Verified 10/03/23 12:50 Home Meds Home Medications Medication Instructions Recorded Confirmed cholecalciferol (vitamin D3) 50 1,000 unit PO QAM 07/31/19 01/15/24 mcg (2,000 unit) tablet acyclovir 400 mg tablet 400 mg PO AMHS 11/20/19 01/15/24 multivitamin 1 tab PO QAM 03/06/21 01/15/24 acetaminophen 650 mg 975 mg PO QID pain 12/31/21 01/15/24 tablet,extended release ascorbic acid (vitamin C) 500 mg 500 mg PO QAM 12/31/21 01/15/24 tablet dexamethasone 4 mg tablet 20 mg PO .weekly 08/27/22 01/15/24 sodium di- and 1 tab PO AMHS 08/28/22 01/15/24 monophosphate-potassium phos monobasic 250 mg tablet (Phospha Neutral) denosumab 120 mg/1.7 mL (70 mg/mL) 120 mg subcut .Q3 months 01/12/23 01/15/24 subcutaneous solution (Xgeva) loperamide 2 mg capsule (Imodium 2 mg PO QID PRN Diarrhea 01/12/23 01/15/24 A-D) albuterol sulfate 90 mcg/actuation 2 inh inhalation Q6 PRN Shortness 01/15/24 01/15/24 aerosol inhaler Of Breath aspirin 81 mg chewable tablet 81 mg PO QAM 01/15/24 01/15/24 calcium carbonate 600 mg-vitamin 1 tab PO QAM 01/15/24 01/15/24 D3 5 mcg (200 unit) tablet (Calcium 600 + D(3)) cyanocobalamin (vitamin B-12) 100 100 mcg PO QAM 01/15/24 01/15/24 mcg tablet furosemide 20 mg tablet 20 mg PO QAM 01/15/24 01/15/24 loratadine 10 mg tablet 10 mg PO QAM 01/15/24 01/15/24 nystatin 100,000 unit/gram topical 1 applic topical BID Skin 01/15/24 01/15/24 powder Irritation oxycodone 5 mg tablet 5 mg PO Q6H PRN PAIN,BREAKTHROUGH 01/15/24 01/15/24 pantoprazole 40 mg tablet,delayed 40 mg PO DAILYBB 01/15/24 01/15/24 release potassium chloride 10 mEq 10 meq PO AMHS 01/15/24 01/15/24 tablet,extended release prochlorperazine maleate 10 mg 10 mg PO Q6 PRN Nausea 01/15/24 01/15/24 tablet venlafaxine 150 mg 150 mg PO QPM 01/15/24 01/15/24 capsule,extended release 24 hr venlafaxine 75 mg capsule,extended 75 mg PO QAM 01/15/24 01/15/24 release 24 hr warfarin 10 mg tablet 5 mg PO 5XWK 01/15/24 01/15/24 warfarin 4 mg tablet 8 mg PO 2XWK 01/15/24 01/15/24 Previous Rx's Medication Instructions Recorded Wheeled Walker #1 ea 05/19/22 diaper,brief,adult,disposable #120 ea 09/07/22 (Briefs, Adult-Extra Large) incontinence pad, liner, disp #100 ea 09/07/22 latex gloves (Latex Gloves, Large) #100 ea 09/07/22 blood sugar diagnostic (OneTouch #100 ea 12/10/22 Ultra Test strips) atorvastatin 10 mg tablet 10 mg PO QAM #90 tabs 04/13/23 albuterol sulfate 1.25 mg/3 mL 1.25 mg (3 mL) inhalation QID PRN 12/07/23 solution for nebulization shortness of breath or wheezing #90 mL Results & Data (ED) Vital Signs Vital Signs - 24 hr 01/15/24 19:53 01/15/24 21:02 01/15/24 21:02 Temperature 36.7 C Temperature Source Temporal Artery Scan Pulse Rate 109 H Pulse Rate from SpO2 Sensor Respiratory Rate 22 Respiratory Effort / Characteristics Short of Breath Respiratory Depth Normal Respiratory Pattern Regular Blood Pressure 140/85 Blood Pressure Mean 103 Pulse Oximetry 94 95 95 Oxygen Delivery Method Room Air Nasal Cannula Nasal Cannula Oxygen Flow Rate 2 2 Sepsis Recent Fever Within 48 Hours No Sepsis New/Unexplained Change in Mental Status No Sepsis Action Taken by Nursing No Action Required 01/15/24 21:14 01/15/24 21:15 01/15/24 21:45 Temperature Temperature Source Pulse Rate 105 H 107 H Pulse Rate from SpO2 Sensor 106 H 115 H Respiratory Rate 16 Respiratory Effort / Characteristics Respiratory Depth Respiratory Pattern Blood Pressure Blood Pressure Mean Pulse Oximetry 98 98 Oxygen Delivery Method Oxygen Flow Rate Sepsis Recent Fever Within 48 Hours Sepsis New/Unexplained Change in Mental Status Sepsis Action Taken by Nursing 01/15/24 21:47 01/15/24 21:47 01/15/24 22:00 Temperature Temperature Source Pulse Rate 91 H Pulse Rate from SpO2 Sensor 104 H 90 Respiratory Rate 23 Respiratory Effort / Characteristics Respiratory Depth Respiratory Pattern Blood Pressure 138/86 Blood Pressure Mean 102 Pulse Oximetry 97 97 Oxygen Delivery Method Oxygen Flow Rate Sepsis Recent Fever Within 48 Hours Sepsis New/Unexplained Change in Mental Status Sepsis Action Taken by Nursing 01/15/24 22:01 01/15/24 22:01 01/15/24 22:30 Temperature Temperature Source Pulse Rate 94 H 90 Pulse Rate from SpO2 Sensor 94 H 90 Respiratory Rate 22 24 Respiratory Effort / Characteristics Respiratory Depth Respiratory Pattern Blood Pressure 140/71 Blood Pressure Mean 105 Pulse Oximetry 98 97 Oxygen Delivery Method Oxygen Flow Rate Sepsis Recent Fever Within 48 Hours Sepsis New/Unexplained Change in Mental Status Sepsis Action Taken by Nursing 01/15/24 22:30 01/15/24 23:00 01/15/24 23:01 Temperature Temperature Source Pulse Rate 90 87 Pulse Rate from SpO2 Sensor 90 88 Respiratory Rate 24 24 Respiratory Effort / Characteristics Respiratory Depth Respiratory Pattern Blood Pressure 124/77 Blood Pressure Mean 101 Pulse Oximetry 96 98 Oxygen Delivery Method Oxygen Flow Rate Sepsis Recent Fever Within 48 Hours Sepsis New/Unexplained Change in Mental Status Sepsis Action Taken by Nursing 01/15/24 23:01 01/15/24 23:30 01/15/24 23:30 Temperature Temperature Source Pulse Rate 86 Pulse Rate from SpO2 Sensor 87 Respiratory Rate 26 H Respiratory Effort / Characteristics Respiratory Depth Respiratory Pattern Blood Pressure 124/98 121/88 Blood Pressure Mean 108 101 Pulse Oximetry 96 Oxygen Delivery Method Oxygen Flow Rate Sepsis Recent Fever Within 48 Hours Sepsis New/Unexplained Change in Mental Status Sepsis Action Taken by Nursing 01/15/24 23:37 Temperature 36.7 C Temperature Source Temporal Artery Scan Pulse Rate Pulse Rate from SpO2 Sensor Respiratory Rate 26 H Respiratory Effort / Characteristics Short of Breath Respiratory Depth Normal Respiratory Pattern Regular Blood Pressure Blood Pressure Mean Pulse Oximetry 96 Oxygen Delivery Method Nasal Cannula Oxygen Flow Rate 2 Sepsis Recent Fever Within 48 Hours Sepsis New/Unexplained Change in Mental Status Sepsis Action Taken by Nursing Laboratory Data 01/15/24 Unknown 01/15/24 Unknown Lab Results 01/15/24 Range/Units Unknown WBC 2.84 L (4.8-10.8) K/ul RBC 3.54 L (4.20-5.40) M/uL Hgb 10.9 L (12.0-16.0) g/dl Hct 33.3 L (37.0-47.0) % MCV 94.1 (80.0-100.0) fL MCH 30.8 (25.0-34.0) pg MCHC 32.7 (32.0-36.0) g/dL RDW Std Deviation 61.1 H (36.4-46.3) fL RDW Coeff of Giuseppe 17.8 H (11.5-14.5) % Plt Count 80 L (130-400) K/uL MPV 13.1 H (9.4-12.4) fL Immature Gran % (Auto) 0.4 % Neut % (Auto) 74.2 % Lymph % (Auto) 3.5 % Th[place]morton % (Auto) 17.6 % Eos % (Auto) 3.9 % Baso % (Auto) 0.4 % Neut # (Auto) 2.11 (1.40-6.50) K/uL Lymph # (Auto) 0.10 L (1.20-3.40) K/uL [place]morton # (Auto) 0.50 (0.11-0.59) K/uL Eos # (Auto) 0.11 (0.00-0.50) K/uL Baso # (Auto) 0.01 (0.00-0.20) K/uL Immature Gran # (Auto) 0.01 (0.01-0.20) K/uL PT 14.1 H (9.0-12.0) Seconds INR 1.3 H (0.9-1.1) Sodium 139 (136-145) mmol/L Potassium 4.1 (3.5-5.1) mmol/L Chloride 106 (98-107) mmol/L Carbon Dioxide 25 (21-32) mmol/L Anion Gap 8 (3-11) BUN 37 H (6-23) mg/dl Creatinine 0.87 (0.6-1.2) mg/dl Est Cr Clr Drug Dosing Not Reportable Est GFR ( Amer) 71.4 ml/min Est GFR (Non-Af Amer) 61.6 ml/min BUN/Creatinine Ratio 42.5 H (10-20) Glucose 208 H (70-99(Fasting)) mg/dl Calcium 8.6 (8.6-10.3) mg/dl Total Bilirubin 0.3 (0.2-1.0) mg/dl AST 15 (13-39) U/L ALT 15 (7-52) U/L Alkaline Phosphatase 48 (34-104) U/L Troponin I High Sens 15.4 H (0-14) pg/ml Total Protein 6.1 (6.0-8.3) gm/dl Albumin 3.3 L (3.4-5.0) gm/dl Globulin 2.8 (2.5-4.0) gm/dl Albumin/Globulin Ratio 1.2 (0.9-2) Urine Color Yellow Urine Appearance Clear (Clear) Urine pH 5.5 (4.5-7.5) Ur Specific Roslyn 1.024 (1.000-1.030) Urine Protein Trace H (Negative) Urine Glucose (UA) Negative (Negative) Urine Ketones Negative (Negative) Urine Blood Negative (Negative) Urine Nitrite Negative (Negative) Urine Bilirubin Negative (Negative) Urine Urobilinogen Negative (Negative) Ur Leukocyte Esterase 1+ H (Negative) Urine WBC (Auto) 10-30 H (0-5) /hpf Urine RBC (Auto) 0-4 (0-4) /hpf U Hyaline Cast (Auto) 0 (0-5) /lpf U Epithel Cells (Auto) >30 H (0-5) /lpf Urine Bacteria (Auto) Negative (Negative) Adenovirus (PCR) Not Detected (NotDetected) B. pertussis DNA (PCR) Not Detected (NotDetected) B.parapertussis DNA PCR Not Detected (NotDetected) C. pneumoniae DNA (PCR) Not Detected (NotDetected) Coronavirus OC43 (PCR) Not Detected (NotDetected) Coronavirus HKU1 (PCR) Not Detected (NotDetected) Coronavirus 229E (PCR) Not Detected (NotDetected) SARS-CoV-2 (PCR) Not Detected (NotDetected) Coronavirus NL63 (PCR) Not Detected (NotDetected) Human Metapneumovir PCR Not Detected (NotDetected) Influenza Type A (PCR) Not Detected (NotDetected) Influenza Type B (PCR) Not Detected (NotDetected) M. pneumoniae (PCR) Not Detected (NotDetected) Parainfluenza 1 (PCR) Not Detected (NotDetected) Parainfluenza 2 (PCR) Not Detected (NotDetected) Parainfluenza 3 (PCR) Not Detected (NotDetected) Parainfluenza 4 (PCR) Not Detected (NotDetected) RSV (PCR) Not Detected (NotDetected) Entero/Rhino (PCR) Not Detected (NotDetected) Administered Medications Discontinued Medications Ioversol (Optiray 320 125ml) 117 ml IV ONCE ONE Stop: 01/15/24 21:31 Last Admin: 01/15/24 21:31 Dose: 117 ml Documented By: EDK Imaging Data Radiologist's Impression: Chest CTA 01/15/24 21:18 Exam(s): CTA CHEST IV Amt: OPTIRAY 320 117ML EXAM: CT Angiography Chest With Intravenous Contrast CLINICAL HISTORY: Reason for exam: PE vs PNA. TECHNIQUE: Axial computed tomographic angiography images of the chest with intravenous contrast. CTDI is 28.14 mGy and DLP is 817.34 mGy-cm. Automated exposure control was utilized for the study. A dose lowering technique was utilized adhering to the principles of ALARA. MIP reconstructed images were created and reviewed. COMPARISON: CT of the chest 06/09/22 FINDINGS: Pulmonary arteries: Unremarkable. No pulmonary embolus. Aorta: No acute findings. No thoracic aortic aneurysm. Lungs: Perihilar and bibasilar atelectasis, right greater than left. No mass. Pleural space: Unremarkable. No significant effusion. No pneumothorax. Heart: Cardiomegaly with postoperative changes. Moderate atherosclerotic disease of the coronary arteries. No significant pericardial effusion. No evidence of RV dysfunction. Bones/joints: No acute fracture. No dislocation. Multiple lucent lesions throughout the thoracic, likely Schmorl nodes. Soft tissues: 7 mm right thyroid gland lucent lesions Lymph nodes: Unremarkable. No enlarged lymph nodes. Tubes, lines and devices: Left-sided pacemaker. IMPRESSION: No pulmonary embolus. Perihilar and bibasilar right greater than left Electronically signed by: Carley Cochran MD 01/15/24 21:52 PM Discharge Plan Visit Data Chief Complaint: Shortness of Breath/Dyspnea Stated Complaint: DIFFICULTY BREATHING ED Provider: Jose Allen Discharge Problem: Exertional dyspnea Forms Stand Alone Forms: [facility] sliceX Prescriptions Prescriptions: No Action loperamide [Imodium A-D] 2 mg capsule 2 mg PO QID PRN (Reason: Diarrhea) Xgeva 120 mg/1.7 mL (70 mg/mL) solution 120 mg subcut .Q3 months (DME) [facility] Instructions .Route Qty: 1 0RF Rx Instructions: WALKER WITH WHEELS AND SEAT LENGTH OF NEEDS: 99 MONTHS (DME) OneTouch Ultra Test Strip See Rx Instructions .Route Qty: 100 3RF Rx Instructions: check BS 1 x day atorvastatin 10 mg tablet 10 mg PO QAM Qty: 90 3RF albuterol sulfate 1.25 mg/3 mL solution for nebulization 1.25 mg inhalation QID PRN (Reason: shortness of breath or wheezing) Qty: 90 0RF acetaminophen 650 mg tablet extended release 975 mg PO QID dexamethasone 4 mg tablet 20 mg PO .weekly Rx Instructions: THURSDAYS (DME) Briefs, Adult-Extra Large Misc See Rx Instructions .Route Qty: 120 5RF Rx Instructions: Use up to 4 briefs daily for diarrhea (DME) latex gloves [Latex Gloves, Large] Misc See Rx Instructions .Route Qty: 100 5RF Rx Instructions: use 4 pairs of gloves daily (DME) incontinence pad, liner, disp Pad See Rx Instructions .Route Qty: 100 5RF Rx Instructions: use up to 4 pads daily cholecalciferol (vitamin D3) 2,000 unit tablet 1,000 unit PO QAM ascorbic acid (vitamin C) 500 mg tablet 500 mg PO QAM acyclovir 400 mg tablet 400 mg PO AMHS multivitamin Tablet 1 tab PO QAM Phospha 250 Neutral 250 mg tablet 1 tab PO AMHS venlafaxine 150 mg capsule,extended release 24hr 150 mg PO QPM potassium chloride 10 mEq tablet extended release 10 meq PO AMHS furosemide 20 mg tablet 20 mg PO QAM aspirin 81 mg tablet,chewable 81 mg PO QAM albuterol sulfate 90 mcg/actuation HFA aerosol inhaler 2 inh inhalation Q6 PRN (Reason: Shortness Of Breath) pantoprazole 40 mg tablet,delayed release (DR/EC) 40 mg PO DAILYBB nystatin 100,000 unit/gram powder 1 applic topical BID Rx Instructions: APPLY TO ABDOMINAL SKIN FOLDS oxycodone 5 mg tablet 5 mg PO Q6H PRN (Reason: PAIN,BREAKTHROUGH) prochlorperazine maleate 10 mg tablet 10 mg PO Q6 PRN (Reason: Nausea) venlafaxine 75 mg capsule,extended release 24hr 75 mg PO QAM loratadine 10 mg tablet 10 mg PO QAM calcium carbonate-vitamin D3 [Calcium 600 + D(3)] 600 mg-5 mcg (200 unit) Tablet 1 tab PO QAM cyanocobalamin (vitamin B-12) 100 mcg Tablet 100 mcg PO QAM warfarin 4 mg tablet 8 mg PO 2XWK Protocol: Dose Management Condition: Tuesday Dose/Route: 9 mg Instruction: 1 x 1 mg tablet, 2 x 4 mg tablets Condition: Tuesday Dose/Route: 9 mg Instruction: 1 x 1 mg tablet, 2 x 4 mg tablets Condition: Tuesday Dose/Route: 8 mg Instruction: 2 x 4 mg tablets Condition: Tuesday Dose/Route: 8 mg Instruction: 2 x 4 mg tablets Condition: Dose/Route: 8 mg Instruction: 2 x 4 mg tablets Condition: Tuesday Dose/Route: 8 mg Instruction: 2 x 4 mg tablets Condition: Tuesday Dose/Route: 8 mg Instruction: 2 x 4 mg tablets Protocol Text: Adjustment Start Date: Tuesday01/04/24 INR Value: 2.7 INR Date: 01/04/24 Recheck Date: 02/03/24 Rx Instructions: TAKE 2 TABLETS ON SUNDAYS & MONDAYS IN THE EVENING warfarin [Coumadin] 10 mg Tablet 5 mg PO 5XWK Rx Instructions: TAKE 10 MG ON TUESDAY,TUESDAY,TUESDAY,TUESDAY AND TUESDAY IN THE EVENING Referrals Referrals: Sachi Soni DO [Primary Care Provider] -
--- NOTE | 2024-01-15 23:16 | History & Physical Report ---
Date of Service January 15, 2024 Assessment & Plan (1) Exertional dyspnea: Plan: Exertional Dyspnea in the setting of HFpEF - appears mildly hypervolemic on exam, with normal BNP - respiratory biofire negative, no indication of acute infection/virus - CTA without pulmonary embolism, mild atelectasis - Gave 20mg Lasix IV - Will plan to continue home furosemide dosing in morning - currently stable on 2L NC - last TTE 08/2022; plan to repeat Elevated Trop - mildly elevated - likely demand in the setting of dyspnea - denies chest pain - EKG without ischemic changes - trend to peak Asymptomatic Bacteria - UA on admission - no urinary symptoms Left Calf Pain - Venous Doppler ordered DVT prophylaxis: - Recurrent VTE's with hypercoagulability, as well as current cancer. She is chronically on warfarin and will plan to continue - INR= 1.3, plan to bridge with Lovenox until therapeutic - continue to trend INR GERD - continue PPI Coronary artery disease: - Continue statin/aspirin Sleep apnea: - CPAP at night Diabetes mellitus, type 2: - hemoglobin a1c= 6.4 and well controlled with diet Myeloma: - Diagnosed with multiple myeloma in July 2019. - Patient follows with [facility] heme/onc Dr. Allen. 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 States that it is worse with exertion and was concerned that it was similar to when she has had pulmonary embolisms in the past. Denies chest pain, nausea, vomiting, headache. States that she has not been sick recently. Notes that she is currently in treatment for MM and gets infusions every Tuesday. ED Work up significant for: CTA without pulmonary embolism, CXR appears to have mild pulmonary congestion, Respiratory biofire negative. Allergies Allergy/AdvReac Type Severity Reaction Status Date / Time adhesive tape AdvReac Mild Skin rash Verified 10/03/23 12:50 Home Medications Medication Instructions Recorded Confirmed Type cholecalciferol (vitamin D3) 50 1,000 unit PO QAM 07/31/19 01/15/24 History mcg (2,000 unit) tablet acyclovir 400 mg tablet 400 mg PO AMHS 11/20/19 01/15/24 History multivitamin 1 tab PO QAM 03/06/21 01/15/24 History acetaminophen 650 mg 975 mg PO QID pain 12/31/21 01/15/24 History tablet,extended release ascorbic acid (vitamin C) 500 mg 500 mg PO QAM 12/31/21 01/15/24 History tablet Wheeled Walker #1 ea 05/19/22 01/15/24 Rx dexamethasone 4 mg tablet 20 mg PO .weekly 08/27/22 01/15/24 History sodium di- and 1 tab PO AMHS 08/28/22 01/15/24 History monophosphate-potassium phos monobasic 250 mg tablet (Phospha Neutral) diaper,brief,adult,disposable #120 ea 09/07/22 01/15/24 Rx (Briefs, Adult-Extra Large) incontinence pad, liner, disp #100 ea 09/07/22 01/15/24 Rx latex gloves (Latex Gloves, Large) #100 ea 09/07/22 01/15/24 Rx blood sugar diagnostic (OneTouch #100 ea 12/10/22 01/15/24 Rx Ultra Test strips) denosumab 120 mg/1.7 mL (70 mg/mL) 120 mg subcut .Q3 months 01/12/23 01/15/24 History subcutaneous solution (Xgeva) loperamide 2 mg capsule (Imodium 2 mg PO QID PRN Diarrhea 01/12/23 01/15/24 His tory A-D) atorvastatin 10 mg tablet 10 mg PO QAM #90 tabs 04/13/23 01/15/24 Rx albuterol sulfate 1.25 mg/3 mL 1.25 mg (3 mL) inhalation QID PRN 12/07/23 01/15/24 Rx solution for nebulization shortness of breath or wheezing #90 mL albuterol sulfate 90 mcg/actuation 2 inh inhalation Q6 PRN Shortness 01/15/24 01/15/24 History aerosol inhaler Of Breath aspirin 81 mg chewable tablet 81 mg PO QAM 01/15/24 01/15/24 History calcium carbonate 600 mg-vitamin 1 tab PO QAM 01/15/24 01/15/24 History D3 5 mcg (200 unit) tablet (Calcium 600 + D(3)) cyanocobalamin (vitamin B-12) 100 100 mcg PO QAM 01/15/24 01/15/24 History mcg tablet furosemide 20 mg tablet 20 mg PO QAM 01/15/24 01/15/24 History loratadine 10 mg tablet 10 mg PO QAM 01/15/24 01/15/24 History nystatin 100,000 unit/gram topical 1 applic topical BID Skin 01/15/24 01/15/24 History powder Irritation oxycodone 5 mg tablet 5 mg PO Q6H PRN PAIN,BREAKTHROUGH 01/15/24 01/15/24 History pantoprazole 40 mg tablet,delayed 40 mg PO DAILYBB 01/15/24 01/15/24 History release potassium chloride 10 mEq 10 meq PO AMHS 01/15/24 01/15/24 History tablet,extended release prochlorperazine maleate 10 mg 10 mg PO Q6 PRN Nausea 01/15/24 01/15/24 History tablet venlafaxine 150 mg 150 mg PO QPM 01/15/24 01/15/24 History capsule,extended release 24 hr venlafaxine 75 mg capsule,extended 75 mg PO QAM 01/15/24 01/15/24 History release 24 hr warfarin 10 mg tablet 5 mg PO 5XWK 01/15/24 01/15/24 History warfarin 4 mg tablet 8 mg PO 2XWK 01/15/24 01/15/24 History Past Med/Surg History Medical History Hypomagnesemia Vitamin D deficiency Aortic stenosis CHF exacerbation (HFpEF) heart failure with preserved ejection fraction Pancytopenia Acute on chronic respiratory failure with hypoxia Sepsis Pneumonia due to 2019 novel coronavirus Endometrial intraepithelial neoplasia (EIN) Myeloma Morbid obesity Post-menopausal bleeding Degenerative disc disease Osteoarthritis Hyperlipidemia Diabetes mellitus, type 2 History of seizure Sleep apnea Urinary leakage Basal cell carcinoma Cervical radiculopathy Positional vertigo Post herpetic neuralgia Hemorrhoids Pulmonary embolism Depression Plasmacytoma of bone Anxiety Fracture, humerus Surgical History Aortic valve replaced History of surgery S/P tubal ligation S/P tooth extraction History of endometrial biopsy S/P dilation and curettage History of cataract surgery History of tonsillectomy History of appendectomy History of bilateral carpal tunnel release History of cholecystectomy History of knee replacement procedure of left knee History of knee replacement procedure of right knee H/O surgical biopsy Family History Mother Myocardial infarction Congestive heart failure Father Malignant neoplasm of oral cavity Sister Diabetes Breast cancer Son Hypertension Grandmother Diabetes Denies family history of Prostate cancer Lung cancer Colorectal cancer Social History Smoking Status: Never smoker Second Hand Exposure: No; Do You Dip or Chew Tobacco: No; Hx Alcohol Use: No Hx Substance Use: No Preferred Language: Maori Communication Ability: Effective Visual Impairment: No Limitations Hearing Ability: Normal Global Director Air And Climate Change Required: No Beliefs That Will Affect Care: None marital status: / Current Living Situation: Alone Current Living Situation Comment: lives with son and [id number] current occupational status: retired 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 Other Information That Helps Us Care for You: No Feels Safe at Home: Yes Safety Concerns: Feels Safe At This Time Childhood Exposure to Second-Hand Smoke: No Diet: other caffeine: Yes (1 cup/day) during the past year weight has: remained stable Dental Care, Regularly: No Physical Activity Frequency: Does not Exercise Seatbelt Use: sometimes Sunscreen Use: Yes Assistive Devices: CPAP and Oxygen - at Night Review of Systems Review of Systems: As per above Physical Exam Physical Exam: Constitutional: well-appearing, no acute distress HEENT: NCAT, no conjunctival injection CV: regular rhythm, no murmur appreciated, extremities well-perfused, no trace edema. + left sided calf tenderness Resp: CTABL, no wheezes/rales/rhonchi appreciated, no increased work of breathing GI: soft, nondistended, nontender MSK: no gross deformities appreciated Skin: warm, dry, no rash appreciated Neuro: alert, oriented, no focal neurologic deficit appreciated Results & Data Results & Data Vital Signs (Past 12 Hours) Vital Signs Temp Pulse Resp BP Pulse Ox O2 Del Method O2 Flow Rate 01/15/24 23:01 124/98 01/15/24 23:01 87 24 98 01/15/24 23:00 90 24 96 01/15/24 22:30 124/77 01/15/24 22:30 90 24 97 01/15/24 22:01 94 H 22 98 01/15/24 22:01 140/71 01/15/24 22:00 91 H 23 97 01/15/24 21:47 97 01/15/24 21:47 138/86 01/15/24 21:45 98 01/15/24 21:15 107 H 01/15/24 21:14 105 H 16 98 01/15/24 21:02 95 Nasal Cannula 2 01/15/24 21:02 95 Nasal Cannula 2 01/15/24 19:53 36.7 C 109 H 22 140/85 94 Room Air Supervising Physician Co-Signing Physician Notes Attending addendum: I have physically seen this patient, have supervised the medical residents activities, and agree with the H&P unless as otherwise noted. Assessment and Plan: HFpEF exacerbation/CAD/hypertension- The patient will be admitted to telemetry for serial cardiac enzymes, serial EKG's, cardiac rhythm monitoring and a 2-D echocardiogram with Dopplers. Lasix 20 mg IV now, and assess response for further dosing Continue aspirin 81 mg daily and atorvastatin 10 mg daily Continue nasal cannula oxygen, presently on 2 L, titrate to keep pulse ox 92-94% Initial troponin 15.4, to follow-up serially Check a fasting lipid panel Recurrent venous thromboembolism/hypercoagulable state- On chronic warfarin, but INR is 1.3 Bridge with therapeutic Lovenox, adjust warfarin and follow daily INR DARRELL- CPAP at bedtime as needed Remaining orders and notations as noted Resident Activity Tracking Resident Involvement: Resident Care Provided Care Provided: Adult Hospital Medicine (7) Hyperlipidemia Hyperlipidemia type: unspecified Qualified Code(s): E78.5 - Hyperlipidemia, unspecified (9) Diabetes mellitus, type 2 Diabetes mellitus complication status: without complication Diabetes mellitus exterminator termite insulin use: without mcc use Qualified Code(s): E11.9 - Type 2 diabetes mellitus without complications
[2024-01-15] MEDS ORDERED: Patient's HEIGHT &/or WEIGHT Needed STA (23:53)
[2024-01-16] MEDS ORDERED: ENOXAPARIN 1 MG/KG SQ STA (00:05)
[2024-01-16] MEDS: FUROSEMIDE INJ 20 MG/2 ML VIAL IV STA (00:14)
[2024-01-16] MEDS ORDERED: Nursing to Pharmacy Communication SCH (00:15)
--- NOTE | 2024-01-16 00:43 | Ultrasound Report ---
Exam(s): US VENOUS LEFT LOWER EXTREMITY EXAM: US Duplex Left Lower Extremity Veins CLINICAL HISTORY: Reason for exam: Calf tenseness. TECHNIQUE: Real-time duplex ultrasound scan of the left lower extremity veins integrating B-mode two-dimensional vascular structure, Doppler spectral analysis, color flow Doppler imaging and compression. COMPARISON: No relevant prior studies available. FINDINGS: Deep veins: Unremarkable. No DVT in the visualized common femoral, femoral, proximal deep femoral or popliteal veins. The veins demonstrate normal color flow, are normally compressible, with normal phasic flow and/or augmentation response. Superficial veins: Unremarkable. No thrombus in the visualized great saphenous vein. Soft tissues: No acute findings. No popliteal cyst. IMPRESSION: No left lower extremity DVT is visualized. Electronically signed by: Jose Ramon Joyner MD 01/16/24 00:42 AM
[2024-01-16] MEDS ORDERED: ALBUTEROL HFA 8 GM INHALER INH PRN (01:07)
[2024-01-16] MEDS: ENOXAPARIN INJ 120 MG/0.8 ML SYR SQ STA (01:30)
[2024-01-16] MEDS ORDERED: ALBUTEROL 0.083% NEBU SOLN 3 ML VIAL INH PRN (01:52)
[2024-01-16] MEDS: PANTOprazole 40 MG TAB PO SCH (06:09)
--- NOTE | 2024-01-16 06:49 | XRay Report ---
XR chest 1V portable CLINICAL HISTORY: Dyspnea TECHNIQUE: Single frontal radiograph of the chest was obtained. Comparison: Comparison is made to chest radiograph 10/26/2022 FINDINGS: A port catheter is seen. Cardiomegaly is noted. The lungs are clear. No evidence of pleural effusion or pneumothorax. IMPRESSION: No acute chest disease. Cardiomegaly is noted. ACT 112: Negative or not required by law. Electronically signed by: Leland Cantrell M.D. 01/16/2024 6:47 AM
[2024-01-16 07:29] LABS: Albumin Globulin Ratio 1.3 (0.9-2); Albumin Level 3.6 gm/dl (3.4-5.0); BUN Creatinine Ratio 37.6 (10-20); Bilirubin,Total 0.5 mg/dl (0.2-1.0); Calcium 8.9 mg/dl (8.6-10.3); Creatinine Clr Calc Pharmacy 55.4 ml/min; Est GFR (African American) 73.4 ml/min; Est GFR (Non-African American) 63.4 ml/min; Globulin 2.8 gm/dl (2.5-4.0); Magnesium 1.9 mg/dl (1.7-2.4); Potassium 3.8 mmol/L (3.5-5.1); Total Protein 6.4 gm/dl (6.0-8.3)
[2024-01-16 07:35] LABS: Troponin I High Sensitivity 17.1 pg/ml (0-14)
[2024-01-16 07:50] LABS: INR 1.3 (0.9-1.1); Prothrombin Time 13.6 Seconds (9.0-12.0)
[2024-01-16] MEDS: FUROSEMIDE 40 MG/4 ML VIAL IV SCH (07:56)
[2024-01-16] MEDS: ACYCLOVIR 400 MG TAB PO SCH (07:58)
[2024-01-16] MEDS: oxyCODONE HCL IR 5 MG TAB (IMMEDIATE RELEASE) PO PRN (07:58)
[2024-01-16] MEDS: VENLAFAXINE HCL XR 75 MG CAPXR PO SCH (08:00)
[2024-01-16] MEDS: POTASSIUM CHLORIDE 10 MEQ TABCR PO SCH (08:00)
[2024-01-16] MEDS: ATORVASTATIN 10 MG TAB PO SCH (08:00)
[2024-01-16] MEDS: CYANOCOBALAMIN (B-12) 100 MCG TABLET PO SCH (08:00)
[2024-01-16] MEDS: CALCIUM 600MG + VIT D 400 IU TAB PO SCH (08:01)
[2024-01-16] MEDS: ASPIRIN 81 MG ECTAB PO SCH (08:01)
--- NOTE | 2024-01-16 08:20 | Electrocardiogram Report ---
Test Reason : Blood Pressure : / mmHG Vent. Rate : 099 BPM Atrial Rate : 099 BPM P-R Int : 202 ms QRS Dur : 158 ms QT Int : 402 ms P-R-T Axes : 023 270 068 degrees QTc Int : 515 ms Atrial-sensed ventricular-paced rhythm Abnormal ECG When compared with ECG of 26-OCT-2022 16:42, Vent. rate has increased BY 14 BPM Confirmed by Nabil Pena ([id number]) on 01/16/2024 8:19:38 AM Referred By: REFERRED SELF Confirmed By:Nabil Pena
--- NOTE | 2024-01-16 08:35 | XCELERA ---
[id number] \\[id number]
[2024-01-16] MEDS ORDERED: FUROSEMIDE 20 MG TAB PO SCH (09:00)
[2024-01-16 10:09] LABS: Basophils # (auto) 0.01 K/uL (0.00-0.20); Basophils % (auto) 0.4 %; Eosinophils % (auto) 3.7 %; Hematocrit (blood only) 37.4 % (37.0-47.0); Immature Granulocytes # (auto) 0.01 K/uL (0.01-0.20); Immature Granulocytes % (auto) 0.4 %; Lymphocytes # (auto) 0.14 K/uL (1.20-3.40); Lymphocytes % (auto) 5.1 %; Mean Corpuscular Hemoglobin 30.2 pg (25.0-34.0); Mean Corpuscular Hgb Conc 32.1 g/dL (32.0-36.0); Mean Corpuscular Volume 94.2 fL (80.0-100.0); Monocytes # (auto) 0.48 K/uL (0.11-0.59); Monocytes % (auto) 17.6 %; Neutrophils # (auto) 1.99 K/uL (1.40-6.50); Neutrophils % (auto) 72.8 %; Platelet Count 93 K/uL (130-400); RDW Standard Deviation 62.4 fL (36.4-46.3); Red Blood Count 3.97 M/uL (4.20-5.40); White Blood Count 2.73 K/ul (4.8-10.8)
[2024-01-16] MEDS: ENOXAPARIN INJ 120 MG/0.8 ML SYR SQ SCH (11:13)
--- NOTE | 2024-01-16 12:31 | Hospitalist Progress Note ---
Date of Service January 16, 2024 Assessment & Plan (1) Acute on chronic diastolic CHF (congestive heart failure): Plan: Telemetry. Parenteral Lasix diuresis. Monitor intake and output (2) S/P TAVR (transcatheter aortic valve replacement): Plan: Continue Coumadin therapy. Daily INR (3) Cardiac pacemaker: Plan: Due to history of complete heart block. (4) Morbid obesity with BMI of 50.0-59.9, adult: Plan: Significant weight loss (5) Diabetes mellitus, type 2: Plan: Did ADA diet. Sliding scale coverage as needed. Plan Hopeful discharge to home tomorrow, January 16 Admission and Anticipated Discharge Date Admission Date: January 15, 2024 Subjective Alert and oriented. No distress. She appears to have acute exacerbation of chronic diastolic CHF. She is now on parenteral Lasix therapy. Will monitor intake and output. Hopefully she can go home tomorrow, January 16. OT and PT evaluations requested. Admission chest x-ray consistent with CHF. EKG reveals paced rhythm Review of Systems 2 Review of Systems: Constitutional-no fever or chills ENT-no blurred vision, no double vision, no epistaxis, no sore throat Respiratory-no cough, no wheezing.shortness of breath with exertion. She denies orthopnea however Cardiac-no palpitations, no chest pain, no syncope GI-no nausea, vomiting, diarrhea, melena, hematochezia -no urinary retention, no urinary incontinence, no dysuria, no hematuria Musculoskeletal-no joint pain, no muscle tenderness Skin-no bruising, no rashes, no pruritus Neuro-no isolated weakness, no paresthesia, no weakness Psych-no depression, no anxiety Physical Exam 2 Physical Exam: General-alert and oriented x3, no fever, no chills HEENT-head atraumatic and normocephalic, pupils equal and reactive to light, extraocular muscles intact Neck-no lymphadenopathy or thyromegaly, trachea midline Chest-clear to auscultation. No rales interestingly. No wheezing or rhonchi Cardiac-regular rate and rhythm, normal S1 and S2 Abdomen-normal bowel sounds, nontender, no hepatosplenomegaly Extremities-mild chronic appearing bilateral lower extremity peripheral edema due to underlying chronic venous insufficiency. Neuro-cranial nerves II through XII intact, motor and sensory function within normal limits, strength symmetrical, no focal deficits Psych-normal affect, normal mood Results & Data Results & Data Vital Signs (Past 12 Hours) Vital Signs Pulse Pulse Resp BP Pulse Ox Pulse Ox O2 Del Method 01/16/24 11:15 102 H 18 130/80 97 Nasal Cannula 01/16/24 08:00 87 18 142/74 H 96 Nasal Cannula 01/16/24 07:37 92 H 01/16/24 06:23 89 17 129/77 97 Nasal Cannula 01/16/24 03:28 91 H 16 107/76 96 Nasal Cannula 01/16/24 03:28 96 01/16/24 01:20 Nasal Cannula 01/16/24 01:19 93 H 22 97 Nasal Cannula 01/16/24 01:15 81 O2 Del Method O2 Flow Rate O2 Flow Rate 01/16/24 11:15 2 01/16/24 08:00 2 01/16/24 07:37 01/16/24 06:23 3 01/16/24 03:28 2 01/16/24 03:28 Nasal Cannula 2 01/16/24 01:20 2 01/16/24 01:19 2 01/16/24 01:15 Laboratory Results 01/16/24 09:49 01/16/24 06:49 PG Care Time/CCT Total # of Minutes Spent Total Time Spent with Patient: Total time spent is greater than 50% in coordination of care (as documented) at patient's floor/unit and/or counseling patient: Coding Level of Care Code 00323 SUB INP/OBS CARE 3/50MIN Diagnoses Acute on chronic diastolic CHF (congestive heart failure) I50.33 S/P TAVR (transcatheter aortic valve replacement) Z95.2 Cardiac pacemaker Z95.0 Morbid obesity with BMI of 50.0-59.9, adult E66.01; Z68.43 Type 2 diabetes mellitus without complication, without long-term current use of insulin E11.9 Diabetes mellitus chcf insulin use: without exterminator helper use Diabetes mellitus complication status: without complication (5) Diabetes mellitus, type 2 Diabetes mellitus chcf insulin use: without exterminator helper use Diabetes mellitus complication status: without complication Qualified Code(s): E11.9 - Type 2 diabetes mellitus without complications
[2024-01-16] MEDS: WARFARIN SOD 4 MG TAB PO SCH (18:17)
[2024-01-16] MEDS: VENLAFAXINE HCL XR 150 MG CAPXR PO SCH (20:23)
[2024-01-17 04:16] LABS: Basophils # (auto) 0.01 K/uL (0.00-0.20); Basophils % (auto) 0.3 %; Eosinophils # (auto) 0.13 K/uL (0.00-0.50); Eosinophils % (auto) 4.4 %; Hematocrit (blood only) 34.9 % (37.0-47.0); Hemoglobin 11.3 g/dl (12.0-16.0); Immature Granulocytes # (auto) 0.02 K/uL (0.01-0.20); Immature Granulocytes % (auto) 0.7 %; Lymphocytes # (auto) 0.07 K/uL (1.20-3.40); Lymphocytes % (auto) 2.3 %; Mean Corpuscular Hemoglobin 30.3 pg (25.0-34.0); Mean Corpuscular Hgb Conc 32.4 g/dL (32.0-36.0); Mean Corpuscular Volume 93.6 fL (80.0-100.0); Monocytes # (auto) 0.39 K/uL (0.11-0.59); Monocytes % (auto) 13.1 %; Neutrophils # (auto) 2.36 K/uL (1.40-6.50); Neutrophils % (auto) 79.2 %; Nucleated RBC # (auto) 0.03 K/uL (0.00-0.12); Platelet Count 89 K/uL (130-400); RDW Coefficient of Variation 17.7 % (11.5-14.5); RDW Standard Deviation 60.7 fL (36.4-46.3); Red Blood Count 3.73 M/uL (4.20-5.40); White Blood Count 2.98 K/ul (4.8-10.8)
[2024-01-17 04:29] LABS: BUN Creatinine Ratio 28.9 (10-20); Calcium 8.7 mg/dl (8.6-10.3); Creatinine Clr Calc Pharmacy 41.3 ml/min; Est GFR (African American) 51.5 ml/min; Est GFR (Non-African American) 44.4 ml/min; Potassium 3.9 mmol/L (3.5-5.1)
[2024-01-17 04:54] LABS: INR 1.2 (0.9-1.1); Prothrombin Time 13.3 Seconds (9.0-12.0)
--- NOTE | 2024-01-17 05:39 | Billing Data ---
Date of Service January 17, 2024 Coding Level of Care Code 93717 INT INP/OBS CARE
[2024-01-17 07:51] VITALS: PULSE 87
[2024-01-17 08:02] VITALS: BP 137/76; RESP 16; O2SAT 93
--- NOTE | 2024-01-17 08:24 | XRay Report ---
XR chest 1V portable HISTORY: 83 years-old Female CHF acute shortness of breath with congestive heart failure COMPARISON: 01/15/2024 TECHNIQUE: AP view the chest FINDINGS: Cardiac silhouette is enlarged. Aortic valvular endograft. Dual lead left subclavian pacer. Atheroscl erosis of the aorta. Unchanged right IJ [id number] catheter. Pulmonary vascular congestion. No pne umothorax, large pleural effusion or lobar airspace consolidation. Mild left basilar atelectasis. Chr onic rib fractures with degenerative changes of the shoulders and spine. IMPRESSION: Cardiomegaly with pulmonary vascular congestion. ACT 112: Negative or not required by law. The above report was generated using voice recognition software. It may contain grammatical, syntax o r spelling errors. Electronically signed by: Zane Portillo M.D. 01/17/2024 8:23 AM
--- NOTE | 2024-01-17 08:46 | Discharge Summary ---
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 States that it is worse with exertion and was concerned that it was similar to when she has had pulmonary embolisms in the past. Denies chest pain, nausea, vomiting, headache. States that she has not been sick recently. Notes that she is currently in treatment for MM and gets infusions every Tuesday. ED Work up significant for: CTA without pulmonary embolism, CXR appears to have mild pulmonary congestion, Respiratory biofire negative. Principal Diagnosis Acute on chronic diastolic CHF, shortness of breath Discharge Exam General-alert and oriented x3, no fever, no chills HEENT-head atraumatic and normocephalic, pupils equal and reactive to light, extraocular muscles intact Neck-no lymphadenopathy or thyromegaly, trachea midline Chest-clear to auscultation. No rales, wheezing or rhonchi Cardiac-regular rate and rhythm, normal S1 and S2 Abdomen-normal bowel sounds, nontender, no hepatosplenomegaly Extremities-mild chronic appearing bilateral lower extremity peripheral edema due to underlying chronic venous insufficiency. Neuro-cranial nerves II through XII intact, motor and sensory function within normal limits, strength symmetrical, no focal deficits Psych-normal affect, normal mood Discharge Data Allergies Allergy/AdvReac Type Severity Reaction Status Date / Time adhesive tape AdvReac Mild Skin rash Verified 10/03/23 12:50 Consultations 01/15/24 22:59 ED Decision to Admit Stat Ordered Studies 01/15/24 21:18 CT for pulmonary embolism PE [CT angio chest PE protocol] Stat 01/15/24 23:20 US venous doppler LE LT Stat Hospital Course (1) Acute on chronic diastolic CHF (congestive heart failure): Resolved with Lasix diuresis. Brisk diuretic response although the output measurements are not accurate. Chest x-ray done today, January 16, looks much better. Her usual oral Lasix dosage will be increased from 20 mg daily to 40 mg daily at discharge (2) S/P TAVR (transcatheter aortic valve replacement): Continue Coumadin therapy. Daily INR (3) Cardiac pacemaker: Due to history of complete heart block. (4) Morbid obesity with BMI of 50.0-59.9, adult: Significant weight loss (5) Diabetes mellitus, type 2: Did ADA diet. Sliding scale coverage as needed. Plan Home todayJanuary 16 Total Time Total Time Spent Total Time Spent (In Minutes): 45 minutes Discharge Plan Discharge Items Patient Disposition: Home - Self-Care Reason For Visit: DYSNPEA Discharge Diagnosis: Acute on chronic diastolic CHF, shortness of breath Activity: Resume your previous activity Non-emergency contact: Primary Care Provider Call non-emergency contact if: your symptoms worsen Follow-up/Referrals: Sachi Soni DO [Primary Care Provider] - Diet: Carb Consistent or DM2 and Heart Healthy Addtl Attending Provider Instructions: Lasix dosage has been increased from 20 mg daily to 40 mg daily. Take Lasix in the early afternoon after lunch Pending Studies at Discharge: No Stand-Alone Forms: My [employer], Smoking Cessation Medications and DC Order Prescriptions: New furosemide [Lasix] 40 mg tablet 40 mg PO DAILY Qty: 30 0RF Continued loperamide [Imodium A-D] 2 mg capsule 2 mg PO QID PRN (Reason: Diarrhea) Xgeva 120 mg/1.7 mL (70 mg/mL) solution 120 mg subcut .Q3 months (DME) Wheeled Walker Misc See Rx Instructions .Route Qty: 1 0RF Rx Instructions: WALKER WITH WHEELS AND SEAT LENGTH OF NEEDS: 99 MONTHS (DME) OneTouch Ultra Test Strip See Rx Instructions .Route Qty: 100 3RF Rx Instructions: check BS 1 x day atorvastatin 10 mg tablet 10 mg PO QAM Qty: 90 3RF albuterol sulfate 1.25 mg/3 mL solution for nebulization 1.25 mg inhalation QID PRN (Reason: shortness of breath or wheezing) Qty: 90 0RF acetaminophen 650 mg tablet extended release 975 mg PO QID dexamethasone 4 mg tablet 20 mg PO .weekly Rx Instructions: THURSDAYS (DME) Briefs, Adult-Extra Large Misc See Rx Instructions .Route Qty: 120 5RF Rx Instructions: Use up to 4 briefs daily for diarrhea (DME) latex gloves [Latex Gloves, Large] Misc See Rx Instructions .Route Qty: 100 5RF Rx Instructions: use 4 pairs of gloves daily (DME) incontinence pad, liner, disp Pad See Rx Instructions .Route Qty: 100 5RF Rx Instructions: use up to 4 pads daily cholecalciferol (vitamin D3) 2,000 unit tablet 1,000 unit PO QAM ascorbic acid (vitamin C) 500 mg tablet 500 mg PO QAM acyclovir 400 mg tablet 400 mg PO AMHS multivitamin Tablet 1 tab PO QAM Phospha 250 Neutral 250 mg tablet 1 tab PO AMHS venlafaxine 150 mg capsule,extended release 24hr 150 mg PO QPM potassium chloride 10 mEq tablet extended release 10 meq PO AMHS aspirin 81 mg tablet,chewable 81 mg PO QAM albuterol sulfate 90 mcg/actuation HFA aerosol inhaler 2 inh inhalation Q6 PRN (Reason: Shortness Of Breath) pantoprazole 40 mg tablet,delayed release (DR/EC) 40 mg PO DAILYBB nystatin 100,000 unit/gram powder 1 applic topical BID Rx Instructions: APPLY TO ABDOMINAL SKIN FOLDS oxycodone 5 mg tablet 5 mg PO Q6H PRN (Reason: PAIN,BREAKTHROUGH) prochlorperazine maleate 10 mg tablet 10 mg PO Q6 PRN (Reason: Nausea) venlafaxine 75 mg capsule,extended release 24hr 75 mg PO QAM loratadine 10 mg tablet 10 mg PO QAM calcium carbonate-vitamin D3 [Calcium 600 + D(3)] 600 mg-5 mcg (200 unit) Tablet 1 tab PO QAM cyanocobalamin (vitamin B-12) 100 mcg Tablet 100 mcg PO QAM warfarin 4 mg tablet 8 mg PO 2XWK Protocol: Dose Management Condition: Tuesday Dose/Route: 9 mg Instruction: 1 x 1 mg tablet, 2 x 4 mg tablets Condition: Tuesday Dose/Route: 9 mg Instruction: 1 x 1 mg tablet, 2 x 4 mg tablets Condition: Tuesday Dose/Route: 8 mg Instruction: 2 x 4 mg tablets Condition: Tuesday Dose/Route: 8 mg Instruction: 2 x 4 mg tablets Condition: Dose/Route: 8 mg Instruction: 2 x 4 mg tablets Condition: Tuesday Dose/Route: 8 mg Instruction: 2 x 4 mg tablets Condition: Tuesday Dose/Route: 8 mg Instruction: 2 x 4 mg tablets Protocol Text: Adjustment Start Date: Tuesday01/04/24 INR Value: 2.7 INR Date: 01/04/24 Recheck Date: 03/22/24 Rx Instructions: TAKE 2 TABLETS ON SUNDAYS & MONDAYS IN THE EVENING warfarin [Coumadin] 10 mg Tablet 5 mg PO 5XWK Rx Instructions: TAKE 10 MG ON TUESDAY,TUESDAY,TUESDAY,TUESDAY AND TUESDAY IN THE EVENING Discontinued furosemide 20 mg tablet 20 mg PO QAM Discharge Orders: Discharge Order- CHF (Routine); Ordered 01/17/24 Ordered By: Chilo Walter Admission Data Admit Date/Time: 01/15/24 23:25 Attending Provider: Chilo Walter Admit Provider: Mei Fuentes Primary Care Provider: Sachi Soni Other Providers: Lyndon Villatoro Coding Level of Care Code 27537 INP/OBS DISCH >30 MIN Diagnoses Acute on chronic diastolic CHF (congestive heart failure) I50.33 S/P TAVR (transcatheter aortic valve replacement) Z95.2 Cardiac pacemaker Z95.0 Morbid obesity with BMI of 50.0-59.9, adult E66.01; Z68.43 Type 2 diabetes mellitus without complication, without long-term current use of insulin E11.9 Diabetes mellitus residential insulin use: without fiberglass finisher use Diabetes mellitus complication status: without complication
[2024-01-17] MEDS: HEPARIN 100 UNIT/ML 5ML FLUSH ONE (09:06)
[2024-01-17] MEDS ORDERED: WARFARIN SOD 10 MG TAB PO SCH (16:00)
== END 2024-01-17 09:12 | disposition home or self-care (01) ==
LOC: ED 19:43 → EDINP 19:43 → SUATTDRO 23:25 → EDINP 01-17 01:08

== ENCOUNTER 2024-03-18 13:56 | Inpatient (IN) ==
[2024-03-18] MEDS: SODIUM CHLORIDE 0.9% 1,000 ML IV ONE (14:59)
[2024-03-18] MEDS: PANTOprazole 80 MG in DEXTROSE 5% 100 ML IV ONE (15:00)
[2024-03-18] MEDS: PANTOPRAZOLE BOLUS/DRIP IV STA (15:06)
[2024-03-18 15:20] LABS: INR 3.9 (0.9-1.1); Partial Thromboplastin Ratio 1.6; Partial Thromboplastin Time 42 Seconds (21-31); Prothrombin Time 37.9 Seconds (9.0-12.0)
[2024-03-18] MEDS: PANTOprazole 40 MG in DEXTROSE 5% MINI-B 100 ML IV SCH (15:28)
[2024-03-18 15:29] LABS: Albumin Level 2.8 gm/dl (3.4-5.0); BUN Creatinine Ratio 14.7 (10-20); Basophils # (auto) 0.01 K/uL (0.00-0.20); Basophils % (auto) 0.3 %; Bilirubin Direct 0.1 mg/dl (0-0.2); Bilirubin,Total 0.6 mg/dl (0.2-1.0); Calcium 7.8 mg/dl (8.6-10.3); Creatinine Clr Calc Pharmacy 49.8 ml/min; Eosinophils # (auto) 0.09 K/uL (0.00-0.50); Eosinophils % (auto) 2.3 %; Est GFR (African American) 64.2 ml/min; Est GFR (Non-African American) 55.4 ml/min; Hematocrit (blood only) 28.7 % (37.0-47.0); Hemoglobin 9.4 g/dl (12.0-16.0); Immature Granulocytes # (auto) 0.03 K/uL (0.01-0.20); Immature Granulocytes % (auto) 0.8 %; Lymphocytes # (auto) 0.21 K/uL (1.20-3.40); Lymphocytes % (auto) 5.3 %; Magnesium 1.4 mg/dl (1.7-2.4); Mean Corpuscular Hemoglobin 29.5 pg (25.0-34.0); Mean Corpuscular Hgb Conc 32.8 g/dL (32.0-36.0); Monocytes # (auto) 0.35 K/uL (0.11-0.59); Monocytes % (auto) 8.9 %; Neutrophils # (auto) 3.25 K/uL (1.40-6.50); Neutrophils % (auto) 82.4 %; Nucleated RBC # (auto) 0.02 K/uL (0.00-0.12); Nucleated RBC % (auto) 0.5 %; Platelet Count 60 K/uL (130-400); Potassium 3.1 mmol/L (3.5-5.1); RDW Coefficient of Variation 18.9 % (11.5-14.5); RDW Standard Deviation 61.4 fL (36.4-46.3); Red Blood Count 3.19 M/uL (4.20-5.40); Total Protein 5.5 gm/dl (6.0-8.3); White Blood Count 3.94 K/ul (4.8-10.8)
[2024-03-18 15:35] LABS: Troponin I High Sensitivity 11.1 pg/ml (0-14)
[2024-03-18] MEDS: SODIUM CHLORIDE 0.9% 500 ML IV ONE (15:40)
[2024-03-18] MEDS: MAGNESIUM SULFATE / D5W 1 GM/100 ML BAG IV STA (16:25)
[2024-03-18] MEDS ORDERED: SODIUM CHLORIDE 0.9% 250 ML IV PRN (16:37)
--- NOTE | 2024-03-18 17:07 | Emergency Department Note ---
History of Present Illness General Chief complaint: Flu Like Symptoms Stated complaint: DIARRHEA/CHILLS Time Seen by Provider: 03/18/24 14:06 History of Present Illness Provider Complaint: + gross hematochezia Onset (ago): 2 week(s) Pain Consistency: + intermittent Severity: moderate Relieved By: + none Exacerbated By: + bowel movement Context: + anticoagulant use (Coumadin); no liver disease, no hemorrhoids, no rectal trauma or no alcohol abuse Associated symptoms: no abdominal pain, no nausea, no vomiting, no epistaxis, no fever, no chills or no headaches Home Medications Medication Instructions Recorded Confirmed Type cholecalciferol (vitamin D3) 50 1,000 unit PO QAM 07/31/19 03/18/24 History mcg (2,000 unit) tablet acyclovir 400 mg tablet 400 mg PO AMHS 11/20/19 03/18/24 History multivitamin 1 tab PO QAM 03/06/21 03/18/24 History acetaminophen 650 mg 975 mg PO QID pain 12/31/21 03/18/24 History tablet,extended release Wheeled Walker #1 ea 05/19/22 03/01/24 Rx dexamethasone 4 mg tablet 20 mg PO WK 08/27/22 03/18/24 History sodium di- and 1 tab PO AMHS 08/28/22 03/18/24 History monophosphate-potassium phos monobasic 250 mg tablet (Phospha Neutral) diaper,brief,adult,disposable #120 ea 09/07/22 03/01/24 Rx (Briefs, Adult-Extra Large) incontinence pad, liner, disp #100 ea 09/07/22 03/01/24 Rx latex gloves (Latex Gloves, Large) #100 ea 09/07/22 03/01/24 Rx blood sugar diagnostic (OneTouch #100 ea 12/10/22 03/01/24 Rx Ultra Test strips) denosumab 120 mg/1.7 mL (70 mg/mL) 120 mg subcut .Q3 months 01/12/23 03/18/24 History subcutaneous solution (Xgeva) loperamide 2 mg capsule (Imodium 2 mg PO QID PRN Diarrhea 01/12/23 03/18/24 History A-D) albuterol sulfate 90 mcg/actuation 2 inh inhalation Q6 PRN Shortness 01/15/24 03/18/24 History aerosol inhaler Of Breath aspirin 81 mg chewable tablet 81 mg PO QAM 01/15/24 03/18/24 History calcium carbonate 600 mg-vitamin 1 tab PO QAM 01/15/24 03/18/24 History D3 5 mcg (200 unit) tablet (Calcium 600 + D(3)) cyanocobalamin (vitamin B-12) 100 100 mcg PO QAM 01/15/24 03/18/24 History mcg tablet loratadine 10 mg tablet 10 mg PO QAM 01/15/24 03/18/24 History potassium chloride 10 mEq 10 meq PO AMHS 01/15/24 03/18/24 History tablet,extended release prochlorperazine maleate 10 mg 10 mg PO Q6 PRN Nausea 01/15/24 03/18/24 History tablet venlafaxine 150 mg 150 mg PO QPM 01/15/24 03/18/24 History capsule,extended release 24 hr venlafaxine 75 mg capsule,extended 75 mg PO QAM 01/15/24 03/18/24 History release 24 hr warfarin 10 mg tablet See Protocol PO 5XWK 01/15/24 03/18/24 History Oxygen Home [id number] 01/18/24 03/01/24 History warfarin 4 mg tablet See Protocol PO 2XWK 01/18/24 03/18/24 History atorvastatin 10 mg tablet 10 mg PO QAM #90 tabs 01/19/24 03/18/24 Rx albuterol sulfate 1.25 mg/3 mL 1.25 mg (3 mL) inhalation QID PRN 01/20/24 03/18/24 Rx solution for nebulization shortness of breath or wheezing #90 mL metoprolol tartrate 25 mg tablet 25 mg PO BID #180 tabs 02/15/24 03/18/24 Rx furosemide 40 mg tablet (Lasix) 20 mg PO DAILY 03/01/24 03/18/24 History pantoprazole 40 mg tablet,delayed 40 mg PO DAILY 03/18/24 03/18/24 History release Allergies Allergy/AdvReac Type Severity Reaction Status Date / Time adhesive tape AdvReac Mild Skin rash Verified 03/01/24 13:19 Past Med/Surg History Medical History History of pulmonary embolism Hypercoagulable state Coronary artery disease Cardiac pacemaker (2017) Morbid obesity with BMI of 50.0-59.9, adult Hypomagnesemia Vitamin D deficiency Aortic stenosis CHF exacerbation (HFpEF) heart failure with preserved ejection fraction Pancytopenia Acute on chronic respiratory failure with hypoxia Sepsis Pneumonia due to 2019 novel coronavirus Endometrial intraepithelial neoplasia (EIN) Myeloma Morbid obesity Post-menopausal bleeding Degenerative disc disease Osteoarthritis Hyperlipidemia Diabetes mellitus, type 2 NIDDM History of seizure last seizure 1995 Sleep apnea CPAP + 2 LPM O2 qhs Urinary leakage Basal cell carcinoma face Cervical radiculopathy Positional vertigo Post herpetic neuralgia hx shingles Hemorrhoids Pulmonary embolism years ago (no definitive etiology)- on warfarin Depression 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; s/p surgery, radiation, chemo (receiving weekly oral/IV chemo Fridays + dexamethasone 40mg pretreatment prior to chemo) Anxiety Fracture, humerus Surgical History S/P TAVR (transcatheter aortic valve replacement) Aortic valve replaced History of surgery right distal humerus replacement S/P tubal ligation S/P tooth extraction History of endometrial biopsy S/P dilation and curettage History of cataract surgery Bilateral History of tonsillectomy History of appendectomy History of bilateral carpal tunnel release History of cholecystectomy History of knee replacement procedure of left knee History of knee replacement procedure of right knee H/O surgical biopsy Right distal humerus 11/21/18 Family History Mother , 89yo Myocardial infarction Congestive heart failure Father , Pt unsure of details of father's health history;Knows he had facial cancer Malignant neoplasm of oral cavity Sister , May 2019 of copd Diabetes Breast cancer Son Hypertension Grandmother Diabetes Denies family history of Prostate cancer Lung cancer Colorectal cancer Social History Smoking Status: Never smoker Second Hand Exposure: No; Do You Dip or Chew Tobacco: No; Hx Alcohol Use: No Hx Substance Use: No Preferred Language: French Communication Ability: Effective Visual Impairment: No Limitations Hearing Ability: Normal Variety Lathe Operator Required: No Beliefs That Will Affect Care: None marital status: / Current Living Situation: Alone Current Living Situation Comment: lives with son and [id number] current occupational status: retired 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 Feels Safe at Home: Yes Childhood Exposure to Second-Hand Smoke: No Diet: other caffeine: Yes (1 cup/day) during the past year weight has: remained stable Dental Care, Regularly: No Physical Activity Frequency: Does not Exercise Seatbelt Use: sometimes Sunscreen Use: Yes Assistive Devices: CPAP and Oxygen - at Night Physical Exam 2 Vital Signs: Vital Signs - 24 hr 03/18/24 13:59 03/18/24 14:16 03/18/24 16:56 Temperature 36.7 C Temperature Source Temporal Artery Sc an Pulse Rate 83 Pulse Rate [Apical ] 81 Respiratory Rate 20 16 Respiratory Effort / Characteristics Non-Labored Sponta neous Respiratory Depth Normal Blood Pressure 89/54 L Blood Pressure [Le ft Arm] 94/50 L Blood Pressure Myesha n 65 Blood Pressure Myesha n [Left Arm] 64 Pulse Oximetry 91 92 Oxygen Delivery Me thod Room Air Room Air Sepsis Recent Feve r Within 48 Hours No Sepsis New/Unexpla ined Change in Men kin Status N/A Sepsis Action Take n by Nursing No Action Required Physical Exam: Physical Exam GENERAL: She is oriented to person, place, and time. She appears well-developed and well-nourished. She does not appear distressed. HENT: Exam performed. -Head: Normocephalic and atraumatic. -Right Ear: External ear normal. No mastoid erythema -Left Ear: External ear normal. No mastoid erythema -Mouth/Throat: The oropharynx is clear and moist. No trismus in the jaw. No dental abscesses or uvula swelling. No oropharyngeal exudate or tonsillar abscesses. EYES: Conjunctivae and EOM are normal.Right eye exhibits no discharge. Left eye exhibits no discharge. No scleral icterus. NECK: Normal range of motion. Neck supple. No JVD present. No tracheal deviation and normal range of motion present. CV: Normal rate, regular rhythm, normal heart sounds and intact distal pulses. There is no peripheral edema. Palpable radial pulses bue. PULM/CHEST: Effort normal and breath sounds normal. No respiratory distress. No stridor. She has no wheezes. She has no rales. -Chest Wall: She exhibits no tenderness. ABD: The abdomen is soft and obese. Bowel sounds are normal. She has no distension. No mass is present. There is no tenderness. There is no rebound, no guarding, no Andrade's sign and no tenderness at McBurney's point. Rovsig negative Rectal: Rectal exam performed with female nursing admissions consultant Neela at bedside. Patient is Hemoccult positive. MUSC/SKEL: Normal range of motion. There is no peripheral edema, tenderness or deformity. NEURO: Motor and sensation grossly intact. SKIN: Skin is warm and dry. She is not diaphoretic. PSYCH: She has a normal mood and affect. Behavior is normal. Judgment and thought content normal. Course Course 1406: The patient was evaluated in room A10. A complete history and physical exam was performed Cardiac monitoring: An order was placed for continuous cardiac monitoring. The monitor shows a rate of 80 with sinus rhythm interpreted by co 1545: Vital signs stable.Labs show hemoglobin 9.4. INR is 3.9. Potassium 3.1. Magnesium 1.4. Magnesium repletion started in the emergency department and potassium will be repleted. Patient placed on Protonix bolus and drip in the emergency department. Discussed case with Dr. Wilson [facility] hospitalist. He states he will evaluate the patient for admission. He states on holding off on giving the patient any vitamin K at this time until he assesses her. Administered Medications Pantoprazole Sodium 40 mg/ (Dextrose) 100 mls @ 20 mls/hr IV Q5H DEVON Stop: 04/17/24 14:44 Last Admin: 03/18/24 15:28 Dose: 8 mg/hr, 20 mls/hr Documented By: BOOM Discontinued Medications Sodium Chloride (Nss) 1,000 mls @ 999 mls/hr IV .Q1H1M ONE Stop: 03/18/24 15:06 Last Infusion: 03/18/24 16:24 Dose: Infused Documented By: Admin: 03/18/24 14:59 Dose: 999 mls/hr Documented By: AYDIN Pantoprazole Sodium 80 mg/ (Dextrose) 120 mls @ 480 mls/hr IV NOW ONE Stop: 03/18/24 14:30 Last Infusion: 03/18/24 15:29 Dose: Infused Documented By: Admin: 03/18/24 15:00 Dose: 480 mls/hr Documented By: AYDIN Magnesium Sulfate/Dextrose (Magnesium Sulfate / D5w) 1 gm in 100 mls @ 100 mls/hr IV NOW STA Stop: 03/18/24 16:35 Last Admin: 03/18/24 16:25 Dose: 100 mls/hr Documented By: BOOM Sodium Chloride (Nss) 500 mls @ 999 mls/hr IV .Q31M ONE Stop: 03/18/24 16:10 Last Infusion: 03/18/24 16:25 Dose: Infused Documented By: Admin: 03/18/24 15:40 Dose: 999 mls/hr Documented By: BOOM Pantoprazole Sodium (Pantoprazole Bolus/Drip) 1 each IV NOW STA Stop: 03/18/24 14:17 Last Admin: 03/18/24 15:06 Dose: 1 each Documented By: AYDIN Medical Decision Making Laboratory Data Attestation: I reviewed the patient's lab results. 03/18/24 14:48 03/18/24 14:48 Lab Results 03/18/24 Range/Units 14:48 WBC 3.94 L (4.8-10.8) K/ul RBC 3.19 L (4.20-5.40) M/uL Hgb 9.4 L (12.0-16.0) g/dl Hct 28.7 L (37.0-47.0) % MCV 90.0 (80.0-100.0) fL MCH 29.5 (25.0-34.0) pg MCHC 32.8 (32.0-36.0) g/dL RDW Std Deviation 61.4 H (36.4-46.3) fL RDW Coeff of Giuseppe 18.9 H (11.5-14.5) % Plt Count 60 L (130-400) K/uL Immature Gran % (Auto) 0.8 % Neut % (Auto) 82.4 % Lymph % (Auto) 5.3 % Archuleta % (Auto) 8.9 % Eos % (Auto) 2.3 % Baso % (Auto) 0.3 % Neut # (Auto) 3.25 (1.40-6.50) K/uL Lymph # (Auto) 0.21 L (1.20-3.40) K/uL Archuleta # (Auto) 0.35 (0.11-0.59) K/uL Eos # (Auto) 0.09 (0.00-0.50) K/uL Baso # (Auto) 0.01 (0.00-0.20) K/uL Immature Gran # (Auto) 0.03 (0.01-0.20) K/uL Absolute Nucleated RBC 0.02 (0.00-0.12) K/uL Nucleated RBC % (auto) 0.5 % PT 37.9 H (9.0-12.0) Seconds INR 3.9 H (0.9-1.1) APTT 42 H (21-31) Seconds PTT Ratio 1.6 Sodium 135 L (136-145) mmol/L Potassium 3.1 L (3.5-5.1) mmol/L Chloride 97 L (98-107) mmol/L Carbon Dioxide 28 (21-32) mmol/L Anion Gap 10 (3-11) BUN 14 (6-23) mg/dl Creatinine 0.95 (0.6-1.2) mg/dl Est Cr Clr Drug Dosing 49.8 ml/min Est GFR ( Amer) 64.2 ml/min Est GFR (Non-Af Amer) 55.4 ml/min BUN/Creatinine Ratio 14.7 (10-20) Glucose 133 H (70-99(Fasting)) mg/dl Calcium 7.8 L (8.6-10.3) mg/dl Magnesium 1.4 L (1.7-2.4) mg/dl Total Bilirubin 0.6 (0.2-1.0) mg/dl Direct Bilirubin 0.1 (0-0.2) mg/dl AST 18 (13-39) U/L ALT 8 (7-52) U/L Alkaline Phosphatase 54 (34-104) U/L Troponin I High Sens 11.1 (0-14) pg/ml Total Protein 5.5 L (6.0-8.3) gm/dl Albumin 2.8 L (3.4-5.0) gm/dl Lipase 35 (11-82) U/L Blood Type A Negative Antibody Screen POSITIVE A MDM Narrative 1406: The patient was evaluated in room A10. A complete history and physical exam was performed Cardiac monitoring: An order was placed for continuous cardiac monitoring. The monitor shows a rate of 80 with sinus rhythm interpreted by me 1545: Vital signs stable.Labs show hemoglobin 9.4. INR is 3.9. Potassium 3.1. Magnesium 1.4. Magnesium repletion started in the emergency department and potassium will be repleted. Patient placed on Protonix bolus and drip in the emergency department. Discussed case with Dr. Wilson [facility] hospitalist. He states he will evaluate the patient for admission. He states on holding off on giving the patient any vitamin K at this time until he assesses her. Impression & Plan GIB (gastrointestinal bleeding) Discharge Plan Visit Data Chief Complaint: Flu Like Symptoms Stated Complaint: DIARRHEA/CHILLS ED Provider: Christian Mullen Discharge Problem: GIB (gastrointestinal bleeding) Patient Disposition: Admitted As Inpatient Forms Stand Alone Forms: [facility] Prescriptions Prescriptions: No Action loperamide [Imodium A-D] 2 mg capsule 2 mg PO QID PRN (Reason: Diarrhea) Xgeva 120 mg/1.7 mL (70 mg/mL) solution 120 mg subcut .Q3 months (DME) Wheeled Walker Misc See Rx Instructions .Route Qty: 1 0RF Rx Instructions: WALKER WITH WHEELS AND SEAT LENGTH OF NEEDS: 99 MONTHS (DME) OneTouch Ultra Test Strip See Rx Instructions .Route Qty: 100 3RF Rx Instructions: check BS 1 x day atorvastatin 10 mg tablet 10 mg PO QAM Qty: 90 3RF metoprolol tartrate 25 mg tablet 25 mg PO BID Qty: 180 3RF acetaminophen 650 mg tablet extended release 975 mg PO QID dexamethasone 4 mg tablet 20 mg PO WK Rx Instructions: THURSDAYS (DME) Briefs, Adult-Extra Large Misc See Rx Instructions .Route Qty: 120 5RF Rx Instructions: Use up to 4 briefs daily for diarrhea (DME) latex gloves [Latex Gloves, Large] Misc See Rx Instructions .Route Qty: 100 5RF Rx Instructions: use 4 pairs of gloves daily (DME) incontinence pad, liner, disp Pad See Rx Instructions .Route Qty: 100 5RF Rx Instructions: use up to 4 pads daily cholecalciferol (vitamin D3) 2,000 unit tablet 1,000 unit PO QAM acyclovir 400 mg tablet 400 mg PO AMHS warfarin 4 mg tablet See Protocol PO 2XWK Protocol: Dose Management Condition: Tuesday Dose/Route: 8 mg Instruction: 2 x 4 mg tablets Condition: Tuesday Dose/Route: 9 mg Instruction: 1 x 4 mg tablet, 0.5 x 10 mg tablets Condition: Tuesday Dose/Route: 8 mg Instruction: 2 x 4 mg tablets Condition: Tuesday Dose/Route: 9 mg Instruction: 1 x 4 mg tablet, 0.5 x 10 mg tablets Condition: Dose/Route: 8 mg Instruction: 2 x 4 mg tablets Condition: Tuesday Dose/Route: 9 mg Instruction: 1 x 4 mg tablet, 0.5 x 10 mg tablets Condition: Tuesday Dose/Route: 8 mg Instruction: 2 x 4 mg tablets Protocol Text: Adjustment Start Date: Tuesday03/07/24 INR Value: 2.5 INR Date: 03/07/24 Recheck Date: 03/21/24 Rx Instructions: TAKE 2 TABLETS ON SUNDAYS & MONDAYS IN THE EVENING albuterol sulfate 1.25 mg/3 mL solution for nebulization 1.25 mg inhalation QID PRN (Reason: shortness of breath or wheezing) Qty: 90 1RF (DME) Oxygen Home E0424 Liters Per Minute See Rx Instructions .Route Rx Instructions: As directed- 2 l nc at HS furosemide [Lasix] 40 mg tablet 20 mg PO DAILY multivitamin Tablet 1 tab PO QAM Phospha 250 Neutral 250 mg tablet 1 tab PO AMHS pantoprazole 40 mg tablet,delayed release (DR/EC) 40 mg PO DAILY venlafaxine 150 mg capsule,extended release 24hr 150 mg PO QPM potassium chloride 10 mEq tablet extended release 10 meq PO AMHS aspirin 81 mg tablet,chewable 81 mg PO QAM albuterol sulfate 90 mcg/actuation HFA aerosol inhaler 2 inh inhalation Q6 PRN (Reason: Shortness Of Breath) prochlorperazine maleate 10 mg tablet 10 mg PO Q6 PRN (Reason: Nausea) venlafaxine 75 mg capsule,extended release 24hr 75 mg PO QAM loratadine 10 mg tablet 10 mg PO QAM calcium carbonate-vitamin D3 [Calcium 600 + D(3)] 600 mg-5 mcg (200 unit) Tablet 1 tab PO QAM cyanocobalamin (vitamin B-12) 100 mcg Tablet 100 mcg PO QAM warfarin 10 mg Tablet See Protocol PO 5XWK Protocol: Dose Management Condition: Tuesday Dose/Route: 8 mg Instruction: 2 x 4 mg tablets Condition: Tuesday Dose/Route: 9 mg Instruction: 1 x 4 mg tablet, 0.5 x 10 mg tablets Condition: Tuesday Dose/Route: 8 mg Instruction: 2 x 4 mg tablets Condition: Tuesday Dose/Route: 9 mg Instruction: 1 x 4 mg tablet, 0.5 x 10 mg tablets Condition: Dose/Route: 8 mg Instruction: 2 x 4 mg tablets Condition: Tuesday Dose/Route: 9 mg Instruction: 1 x 4 mg tablet, 0.5 x 10 mg tablets Condition: Tuesday Dose/Route: 8 mg Instruction: 2 x 4 mg tablets Protocol Text: Adjustment Start Date: Tuesday03/07/24 INR Value: 2.5 INR Date: 03/07/24 Recheck Date: 03/21/24 Rx Instructions: TAKE 10 MG ON TUESDAY,TUESDAY,TUESDAY,TUESDAY AND TUESDAY IN THE EVENING Referrals Referrals: Sachi Soni DO [Primary Care Provider] -
[2024-03-18] MEDS: PHYTONADIONE 10 MG in DEXTROSE 5% 50 ML IV STA (17:34)
--- NOTE | 2024-03-18 18:39 | History & Physical Report ---
Date of Service March 18, 2024 Assessment & Plan (1) Acute blood loss anemia: Plan: Melena described by patient for 1 week, worse in last 24 hours - noted prior hospitalization of lower/upper GI bleed in Aug 2022, follow up with GI deferred EGD evaluation at that time Pantoprazole IV drip Vitamin K given to reverse INR - on warfarin for history of PEs Trend CBC Transfuse < 7 or symptomatic - 2 units ordered on hold due to antibodies present they are not immediately available (2) GIB (gastrointestinal bleeding): Plan: Suspected - melena NPO, IV fluids Trend CBC Consult gastroenterology (3) Diarrhea: Plan: Acute on chronic Given left sided abdominal pain on exam (possibly also chronic) will get CT A/P Stool and c. diff PCR (4) Myeloma: Plan: Possible alternative cause of her anemia Ferritin, iron studies, B12, folate, retic count, LDH Consult hematology (5) Hypotension: Plan: Hold all anti-hypertensives at this time (6) Hypomagnesemia: Plan: Replace and repeat level (7) Hypokalemia: Plan: Replace and repeat level Plan VTE Prophylaxis - SCDs, supratherapeutic INR on admission Diet - NPO Disposition - admit to PCU Admission and Anticipated Discharge Date Admission Date: March 18, 2024 History of Present Illness Chief Complaint: Black stool Primary Care Provider: DO Chantel Irwin Roy is an 83 year old female who presents to the ER with genera lized weakness and black stool. She reports usually having diarrhea but it became much worse 1 week ago, especially over the last 24 hours turning black during this time. No chest pain, GERD, dizziness. She has been more fatigue with generalized bilateral weakness. No fever, chills. No respiratory or urinary acute symptoms. She took all her morning medications today. She takes aspirin and warfarin for a history of pulmonary emboli. Previous hospitalization in February 2022 with lower GI bleed and August 2022 with melena - EGD evaluation was deferred at that time on follow up with gastroenterology. Allergies Allergy/AdvReac Type Severity Reaction Status Date / Time adhesive tape AdvReac Mild Skin rash Verified 03/01/24 13:19 Home Medications Medication Instructions Recorded Confirmed Type cholecalciferol (vitamin D3) 50 1,000 unit PO QAM 07/31/19 03/18/24 History mcg (2,000 unit) tablet acyclovir 400 mg tablet 400 mg PO AMHS 11/20/19 03/18/24 History multivitamin 1 tab PO QAM 03/06/21 03/18/24 History acetaminophen 650 mg 975 mg PO QID pain 12/31/21 03/18/24 History tablet,extended release Wheeled Walker #1 ea 05/19/22 03/01/24 Rx dexamethasone 4 mg tablet 20 mg PO WK 08/27/22 03/18/24 History sodium di- and 1 tab PO AMHS 08/28/22 03/18/24 History monophosphate-potassium phos monobasic 250 mg tablet (Phospha Neutral) diaper,brief,adult,disposable #120 ea 09/07/22 03/01/24 Rx (Briefs, Adult-Extra Large) incontinence pad, liner, disp #100 ea 09/07/22 03/01/24 Rx latex gloves (Latex Gloves, Large) #100 ea 09/07/22 03/01/24 Rx blood sugar diagnostic (OneTouch #100 ea 12/10/22 03/01/24 Rx Ultra Test strips) denosumab 120 mg/1.7 mL (70 mg/mL) 120 mg subcut .Q3 months 01/12/23 03/18/24 History subcutaneous solution (Xgeva) loperamide 2 mg capsule (Imodium 2 mg PO QID PRN Diarrhea 01/12/23 03/18/24 History A-D) albuterol sulfate 90 mcg/actuation 2 inh inhalation Q6 PRN Shortness 01/15/24 03/18/24 History aerosol inhaler Of Breath aspirin 81 mg chewable tablet 81 mg PO QAM 01/15/24 03/18/24 History calcium carbonate 600 mg-vitamin 1 tab PO QAM 01/15/24 03/18/24 History D3 5 mcg (200 unit) tablet (Calcium 600 + D(3)) cyanocobalamin (vitamin B-12) 100 100 mcg PO QAM 01/15/24 03/18/24 History mcg tablet loratadine 10 mg tablet 10 mg PO QAM 01/15/24 03/18/24 History potassium chloride 10 mEq 10 meq PO AMHS 01/15/24 03/18/24 History tablet,extended release prochlorperazine maleate 10 mg 10 mg PO Q6 PRN Nausea 01/15/24 03/18/24 History tablet venlafaxine 150 mg 150 mg PO QPM 01/15/24 03/18/24 History capsule,extended release 24 hr venlafaxine 75 mg capsule,extended 75 mg PO QAM 01/15/24 03/18/24 History release 24 hr warfarin 10 mg tablet See Protocol PO 5XWK 01/15/24 03/18/24 History Oxygen Home [id number] 01/18/24 03/01/24 History warfarin 4 mg tablet See Protocol PO 2XWK 01/18/24 03/18/24 History atorvastatin 10 mg tablet 10 mg PO QAM #90 tabs 01/19/24 03/18/24 Rx albuterol sulfate 1.25 mg/3 mL 1.25 mg (3 mL) inhalation QID PRN 01/20/24 03/18/24 Rx solution for nebulization shortness of breath or wheezing #90 mL metoprolol tartrate 25 mg tablet 25 mg PO BID #180 tabs 02/15/24 03/18/24 Rx furosemide 40 mg tablet (Lasix) 20 mg PO DAILY 03/01/24 03/18/24 History pantoprazole 40 mg tablet,delayed 40 mg PO DAILY 03/18/24 03/18/24 History release Past Med/Surg History Medical History History of pulmonary embolism Hypercoagulable state Coronary artery disease Cardiac pacemaker (2017) Morbid obesity with BMI of 50.0-59.9, adult Hypomagnesemia Vitamin D deficiency Aortic stenosis CHF exacerbation (HFpEF) heart failure with preserved ejection fraction Pancytopenia Acute on chronic respiratory failure with hypoxia Sepsis Pneumonia due to 2019 novel coronavirus Endometrial intraepithelial neoplasia (EIN) Myeloma Morbid obesity Post-menopausal bleeding Degenerative disc disease Osteoarthritis Hyperlipidemia Diabetes mellitus, type 2 NIDDM History of seizure last seizure 1995 Sleep apnea CPAP + 2 LPM O2 qhs Urinary leakage Basal cell carcinoma face Cervical radiculopathy Positional vertigo Post herpetic neuralgia hx shingles Hemorrhoids Pulmonary embolism years ago (no definitive etiology)- on warfarin Depression 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; s/p surgery, radiation, chemo (receiving weekly oral/IV chemo Fridays + dexamethasone 40mg pretreatment prior to chemo) Anxiety Fracture, humerus Surgical History S/P TAVR (transcatheter aortic valve replacement) Aortic valve replaced History of surgery right distal humerus replacement S/P tubal ligation S/P tooth extraction History of endometrial biopsy S/P dilation and curettage History of cataract surgery Bilateral History of tonsillectomy History of appendectomy History of bilateral carpal tunnel release History of cholecystectomy History of knee replacement procedure of left knee History of knee replacement procedure of right knee H/O surgical biopsy Right distal humerus 11/21/18 Family History Mother , 89yo Myocardial infarction Congestive heart failure Father , Pt unsure of details of father's health history;Knows he had facial cancer Malignant neoplasm of oral cavity Sister , May 2019 of copd Diabetes Breast cancer Son Hypertension Grandmother Diabetes Denies family history of Prostate cancer Lung cancer Colorectal cancer Social History Smoking Status: Never smoker Second Hand Exposure: No; Do You Dip or Chew Tobacco: No; Hx Alcohol Use: No Hx Substance Use: No Preferred Language: [place] Communication Ability: Effective Visual Impairment: No Limitations Hearing Ability: Normal 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 Beliefs That Will Affect Care: None marital status: / Current Living Situation: Alone Current Living Situation Comment: lives with son and [id number] current occupational status: retired 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 Feels Safe at Home: Yes Safety Concerns: Feels Safe At This Time Childhood Exposure to Second-Hand Smoke: No Diet: other caffeine: Yes (1 cup/day) during the past year weight has: remained stable Dental Care, Regularly: No Physical Activity Frequency: Does not Exercise Seatbelt Use: sometimes Sunscreen Use: Yes Assistive Devices: CPAP and Oxygen - at Night Review of Systems Review of Systems: All systems reviewed & are unremarkable except as noted in HPI & below Physical Exam Constitutional: WD/WN, vitals as above Eyes: + anicteric sclerae; normal pupil size Respiratory: normal respiratory effort, lungs clear to auscultation Cardiovascular: Rate/Rhythm: regular rate and regular rhythm Heart Sounds: + murmur (2/6 LUSB systolic) Extremities: + pedal edema (trace) Gastrointestinal (Abdomen): Inspection/Auscultation: abdomen normal to inspection; abdomen not distended Percussion/Palpation: + abdomen tender (left sided) and abdomen soft; no guarding and abdomen not rigid Musculoskeletal: no cyanosis or clubbing, extremities motor strength 5/5 Skin: no rashes, warm and dry Neurologic: moves all extremities and awake; not confused Psychiatric: A+Ox3, euthymic affect Genitourinary: no CVA tenderness Results & Data Results & Data Vital Signs (Past 12 Hours) Vital Signs Temp Pulse Pulse Resp BP BP Pulse Ox 03/18/24 16:56 81 16 94/50 L 92 03/18/24 14:16 03/18/24 13:59 36.7 C 83 20 89/54 L 91 O2 Del Method 03/18/24 16:56 03/18/24 14:16 Room Air 03/18/24 13:59 Room Air Laboratory Results Abnormal lab results 03/18/24 03/18/24 Range/Units 14:48 18:42 WBC 3.94 L 3.83 L (4.8-10.8) K/ul RBC 3.19 L 3.16 L (4.20-5.40) M/uL Hgb 9.4 L 9.3 L (12.0-16.0) g/dl Hct 28.7 L 28.6 L (37.0-47.0) % RDW Std Deviation 61.4 H 61.9 H (36.4-46.3) fL RDW Coeff of Giuseppe 18.9 H 18.7 H (11.5-14.5) % Plt Count 60 L 64 L (130-400) K/uL Lymph # (Auto) 0.21 L (1.20-3.40) K/uL PT 37.9 H (9.0-12.0) Seconds INR 3.9 H (0.9-1.1) APTT 42 H (21-31) Seconds Sodium 135 L (136-145) mmol/L Potassium 3.1 L (3.5-5.1) mmol/L Chloride 97 L (98-107) mmol/L Glucose 133 H (70-99(Fasting)) mg/dl Calcium 7.8 L (8.6-10.3) mg/dl Magnesium 1.4 L (1.7-2.4) mg/dl TIBC 222 L (250-450) mcg/dl Ferritin 469.1 H (8-388) ng/ml Lactate Dehydrogenase 261 H (86-244) U/L Total Protein 5.5 L (6.0-8.3) gm/dl Albumin 2.8 L (3.4-5.0) gm/dl Antibody Screen POSITIVE A Medications Administered ER Medications Given: Normal saline 1L bolus Pantoprazole 80mg IV bolus and drip Magnesium sulfate 1g IV ECG Rate (beats per minute): 70 Findings: + paced rhythm (ventricular) Comparison ECG Date: from (March 16, 2024) Change: no significant change Code Status & VTE Plan Code Status Full VTE Prophylaxis Plan VTE Prophylaxis will be ordered: Yes PG Care Time/CCT Total # of Minutes Spent Total Time Spent with Patient: Total time spent is greater than 50% in coordination of care (as documented) at patient's floor/unit and/or counseling patient: Coding Level of Care Code 59043 INT INP/OBS CARE 3/75MIN Diagnoses Acute blood loss anemia D62 GIB (gastrointestinal bleeding) K92.2 Diarrhea R19.7 Multiple myeloma not having achieved remission C90.00 Multiple myeloma remission status: not in remission Hypotension I95.9 Hypomagnesemia E83.42 Hypokalemia E87.6 (4) Myeloma Multiple myeloma remission status: not in remission Qualified Code(s): C90.00 - Multiple myeloma not having achieved remission
[2024-03-18] MEDS: POTASSIUM CHLORIDE / WTR 10 MEQ/100 ML PLCT IV SCH (18:45)
[2024-03-18 19:01] LABS: Hematocrit (blood only) 28.6 % (37.0-47.0); Hemoglobin 9.3 g/dl (12.0-16.0); Mean Corpuscular Hemoglobin 29.4 pg (25.0-34.0); Mean Corpuscular Hgb Conc 32.5 g/dL (32.0-36.0); Mean Corpuscular Volume 90.5 fL (80.0-100.0); Platelet Count 64 K/uL (130-400); RDW Coefficient of Variation 18.7 % (11.5-14.5); RDW Standard Deviation 61.9 fL (36.4-46.3); Red Blood Count 3.16 M/uL (4.20-5.40); White Blood Count 3.83 K/ul (4.8-10.8)
[2024-03-18 19:31] LABS: Ferritin 469.1 ng/ml (8-388)
[2024-03-18 19:38] LABS: Folate (Folic Acid),Ser orPlas > 22.30 ng/ml (>5.38)
[2024-03-18 19:39] LABS: Vitamin B12 854 pg/ml (180-914)
--- NOTE | 2024-03-18 20:02 | XRay Report ---
XR chest 1V portable HISTORY: shortness of breath COMPARISON: Chest 01/17/2024. FINDINGS: There is a left-sided dual-chamber pacemaker. The right Port-A-Cath terminates in the dista l SVC. An aortic valve prosthesis is again noted. A few bibasilar linear densities favor subsegmental atelectasis or scarring. This is similar to the prior study. No new focal lung consolidations to sug gest pneumonia. The heart remains mildly enlarged. No acute fractures. There is mild central pulmonar y vascular congestion without overt edema. No pleural effusions. Old, healed right-sided rib fracture s. IMPRESSION: Cardiomegaly with mild congestive change. ACT 112: Negative or not required by law. Electronically signed by: Merrick Latif M.D. 03/18/2024 7:59 PM
[2024-03-18] MEDS: OPTIRAY 320 100ml IV ONE (20:11)
[2024-03-18] MEDS: LACTATED RINGER'S 1,000 ML IV SCH (20:42)
--- NOTE | 2024-03-18 21:05 | CT Scan Report ---
Exam(s): CT ABDOMEN + PELVIS With Contrast IV Amt: OPTIRAY 320 95ML EXAM: CT Abdomen and Pelvis With Intravenous Contrast CLINICAL HISTORY: Reason for exam: diarrhea, hematochezia, left sided abdominal pain. TECHNIQUE: Axial computed tomography images of the abdomen and pelvis with intravenous contrast. Automated exposure control was utilized for the study. A dose lowering technique was utilized adhering to the principles of ALARA. CONTRAST: Patient received OPTIRAY 320 95ML of IV contrast COMPARISON: No relevant prior studies available. FINDINGS: Lung bases: Unremarkable. No mass. No consolidation. Heart: Cardiomegaly. Pacemaker leads with. Prosthetic aortic valve. ABDOMEN: Liver: Unremarkable. No mass. Gallbladder and bile ducts: Cholecystectomy. No ductal dilation. Pancreas: Unremarkable. No mass. No ductal dilation. Spleen: Unremarkable. No splenomegaly. Adrenals: Unremarkable. No mass. Kidneys and ureters: LEFT renal cyst measures 3.5 cm. No hydronephrosis. Stomach and bowel: Diverticulosis, without acute diverticulitis. No small bowel obstruction. No free intraperitoneal air. No diarrheal disease on CT scan. PELVIS: Appendix: No findings to suggest acute appendicitis. Bladder: Unremarkable. Normal urinary bladder. Reproductive: Unremarkable as visualized. ABDOMEN and PELVIS: Intraperitoneal space: Unremarkable. No free air. No significant fluid collection. Bones/joints: Degenerative changes of the spine. No acute fracture. No dislocation. Soft tissues: Unremarkable. Vasculature: Atherosclerotic changes of the aorta. No abdominal aortic aneurysm. Lymph nodes: Unremarkable. No enlarged lymph nodes. IMPRESSION: 1. Cholecystectomy. 2. Diverticulosis, without acute diverticulitis. No small bowel obstruction. No free intraperitoneal air. No diarrheal disease on CT scan. Electronically signed by: Dominic Terrazas MD 03/18/24 21:05 PM
[2024-03-18] MEDS: POTASSIUM CHLORIDE 10 MEQ TABCR PO SCH (21:39)
[2024-03-18] MEDS: POT PHOSPHATE MONOBASIC W/ SOD TAB PO SCH (21:39)
[2024-03-18] MEDS: VENLAFAXINE HCL XR 150 MG CAPXR PO SCH (21:39)
[2024-03-19 02:10] LABS: Appearance Urine Clear (Clear); Bacteria Urine Automated None Seen (None Seen); Bilirubin Urine Negative (Negative); Blood Urine Negative (Negative); Cast Urine Automated 0-2 /lpf (0-2); Color Urine Yellow; Glucose Urine UA Negative (Negative); Ketones Urine Negative (Negative); Leukocyte Esterase Urine Negative (Negative); Nitrite Urine Negative (Negative); Protein Urine 1+ (Negative); RBC Urine Automated 0-2 /hpf (0-2); Specific Gravity Urine > 1.045 (1.000-1.030); Urobilinogen Urine Negative (Negative)
[2024-03-19] MEDS: ACETAMINOPHEN 1,000 MG/100 ML VIAL IV PRN (05:37)
--- OUTSIDE RECORDS SUMMARY | 2024-03-19 06:59 | External Medical Summary | Summary of Care ---
Author Name Unknown Organization [facility] Address [address] [facility] [place] [address] Phone [phone] Care Team Providers Care Vacuum Cleaner Repair Person Name Role Phone Kulwinder Byers MD Primary Care Provider Reason for Visit * Reason Comments Chemotherapy Cytoxan/Darzalex Fas pro * Episode Based Medications (Routine) - Authorized Specialty Diagnoses / Procedures Referred By Contac t Referred To Contact Diagnoses Multiple myeloma not having achieved remission (HCC) Procedures VA DARATUMUMAB, HYALURONIDASE VA CYCLOPHOSPHAMIDE 100 MG INJ VA INJ, CYCLOPHOSPHAMIDE, NOS Jorge Allen MD [address] [place], [place] [address] Anc Hem/Onc [facility] [place] DEPT CLOSED - 09/27/23 [address] [place] [address] Referral ID Status Reason Start Date Expiration Date V isits Requested Visits Authorized [id number] Authorized 07/23/2022 11/13/2099 999 99 Encounter Details Date Type Department Care Team (Latest Contact Info) Description 01/20/2024 2:15 PM EST Hem/Onc Treatment Hematology/Oncolog y Treatment, [place] [address] [place] [address] Ritu, Chair 5 Hem Onc Scenery [address] [place] [address] Multiple myeloma not having achieved remission (HCC)*; Encounter for antineoplastic chemotherapy Allergies Active Allergy Reactions Criticality Noted Date Comments Adhesive Tape 05/28/2003 documented as of this encounter (statuses as of 03/17/2024) Medications Medication Sig Dispensed Refills Start Date [...] 30 Tab 0 12/25/2018 Active nystatin (NYSTOP) 705228 UNIT/GM powder Apply topically to affected area [...] day as needed for Diarrhea. 0 Active Aspirin Low Dose 81 MG Oral [...] a week 60 Tablet 1 10/21/2023 Active Albuterol Sulfate HFA 108 (90 Base) MCG/ACT Inhalation Aerosol Solution Inhale 2 Puffs by mouth every 6 hours as needed for Shortness of Breath. 0 10/03/2023 Active Lidocaine-Prilocai ne 2.5-2.5 % External Cream (Emla)Indications: Multiple myeloma not having achieved remission (HCC) APPLY TO SKIN OVER MEDIPORT & COVER 1HR PRIOR TO ACCESSING. 30 g 1 01/03/2023 4 Discontinue d(Refill) oxyCODONE HCl 5 MG Oral Tablet (Oxy IR)Indications:Mul tiple myeloma not having achieved remission (HCC),Cancer related pain Take 1 Tablet by mouth every 6 hours as needed for Pain, Breakthrough. 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 Aortic valve stenosis 2021 documented as of this encounter (statuses as of 03/17/2024) Social History Tobacco Use Types Packs/Day Years [...] Sign Reading Time Taken Comments Blood Pressure 119/72 01/20/2024 2:15 PM EST Pulse 108 01/20/2024 2:15 PM EST Temperature 36.7 C (98 F) 01/20/2024 2:15 PM EST Respiratory Rate 18 01/20/2024 2:15 PM EST Oxygen Saturation 94% 01/20/2024 2:15 PM EST Inhaled Oxygen Concentration - - Weight 109.2 kg (240 lb 12.8 oz) 01/20/2024 2:15 PM EST Height - - Body Mass Index 48.55 12/28/2023 10:14 AM EST documented in this [...] Nursing Notes * Sandi Avila, RN - 01/20/2024 4:14 PM EST Chair 4. Port accessed, no blood returned but this is normal for patient -- see notes from IR. Okay to use. Safety and Risk for Injury Patient will remain free from injury. Ensure appropriate safety devices are available. Provide and maintain safe environment. Chemotherapy/Immunotherapy agents: Cytoxan, Darzalex Faspro Consent for chemotherapy drug treatment complete, dated, and signed? yes, date - 11/11/2022 Treatment lab parameters met? Yes Has treatment weight changed > than 10%? No Treatment preauthorized? Yes VITALS There were no vitals filed for this visit. Urine protein: N/A Patient education completed for treatment? Yes Blood transfusion consent signed and complete? NA Return appointment scheduled? Yes Patient had provider visit today? No - If no provider visit must complete Pretreatment Assessment Functional Status: Functional status at today's visit: Restricted in [...] ASSESSMENT: NEURO: denies symptoms CV/RESP: denies symptoms -- patient previously was in hospital for 2 days from 01/14-01/16 at [facility] for SOB -- increased lasix to 40 mg daily and this has helped a lot for patient. No other issues since then. GI/: denies symptoms OTHER: denies any additional symptoms PAIN: 0 Goals: Patient will remain free from injury. Possible barriers to meeting goals: ambulating with IV pole Stability of the patient: Moderately stable - low risk of patient condition declining or worsening Summary regarding today's goals: Met: pt remained free of harm today Patient tolerated treatment well without any acute issues or problems. Patient left facility in stable condition and denied any further needs. documented in this encounter Plan of Treatment Upcoming Encounters Date Type Department Care Team (Late st Contact Info) Description 03/22/2024 12:10 PM EDT Laboratory Laboratory [facility] [place] [address] [address] [place] [phone] Ritu, Lab [place] [address] [place] [address] 03/22/2024 1:00 PM EDT Hem/Onc Treatment Hematology/Oncology Treatment, [place] [address] [facility] [place] [phone] Ritu, Chair 10 Hem Onc [place] [address] [place] [address] 03/30/2024 1:00 PM EDT Laboratory Laboratory [facility] [place] [address] [address] [place] [phone] Matt [place] [facility] [address] [facility] [place] [address] 03/30/2024 2:15 PM EDT Office Visit Hematology/Oncology [facility] [place] [address] [facility] [place] [phone] Jorge Allen MD [address] [facility] [place] [address] 03/30/2024 2:45 PM EDT [facility] [phone] Health Maintenance Due Date Last Done Comments DXA Scan 1940 Depression Screening 1952 Diabetic Eye Exam 1958 Diabetic Foot Exam 1958 DTaP,Tdap,and Td Vaccines (1 - Tdap) 1959 Zoster Vaccines (1 of 2) 1959 COVID-19 Vaccine (2 - Pfizer risk series) 06/29/2021 06/08/2021 Albumin/Creatinine Ratio 12/11/2021 12/11/2020 HbA1c 04/19/2024 10/19/2023, 11/15, 06/13/2020, Additional history exists Influenza Vaccine (FLU shot) (Season Ended) 2024 GFR 03/15/2025 03/15/2024, 02/12, 02/23/2024, Additional history exists Pneumococcal Vaccine: 65+ Years [...] encounter Medical Devices Implanted Type Area Mental Health Nurse Practitioner Device Identifier Shelf Expiration Date Model / Serial / Lot Screw Elbow Humeral Total - [id number] Implanted:Qty: 1 on 12/23/2018 by Gautam Jasso MD at [facility] Right: Upper Arm [employer] 09/13/20278400-090 - / / [id number] Deisi Nexel Total Elbow Implanted:Qty: 1 on 12/23/2018 by Gautam Jasso MD at [place] [facility] Right: Upper Arm 04/13/2023-095 -00 / / [id number] Cement Antibiotic Bone - [id number] Implanted:Qty: 1 on 12/23/2018 by Gautam Jasso MD at [place] [facility] Right: Upper Arm RENY : ORTHOPAEDICS 05/13/2020 6197-9-010 / / [id number] Cement Antibiotic Bone - [id number] Implanted:Qty: 1 on 12/23/2018 by Gautam Jasso MD at [place] [facility] Right: Upper Arm RENY : ORTHOPAEDICS 05/13/2020 6197-9-010 / / [id number] Stem Compr Srs Mod [id number] - [id number] Implanted:Qty: 1 on 12/23/2018 by Gautam Jasso MD at [place] [facility] Right: Upper Arm BIOMET : TRAUMA 01/28/2027 [id number] / / [id number] Deisi Nexel Total Elbow Ulnar Component Implanted:Qty: 1 on 12/23/2018 by Gautam Jasso MD at [place] [facility] Right: Upper Arm 07/14/202500-025 / / [id number] Comprehensive Srs/Nexel Distal Body Implanted:Qty: 1 on 12/23/2018 by Gautam Jasso MD at [place] [facility] Right: Upper Arm 03/03/2028 [id number] / / [id number] Valve Ricky 3 Ultra 26mm - [id number] Implanted:Qty: 1 on 05/27/2022 by Jesús Weber MD at [facility] [employer] [id number] 03/17/2023 [id number] / / Port Implant W/8f Poly Cath - [id number] Implanted:Qty: 1 on 12/29/2022 by Sudhir Lovett DO at OR [facility] Right: Chest CR BARD : PERIPHERAL VASCULAR [id number] 02/12/2024 [id number] / / [id number] documented as of this encounter Visit Diagnoses Diagnosis Multiple myeloma not having achieved remission (HCC)- Primary Multiple myeloma, without mention of having achieved remission Encounter for antineoplastic chemotherapy documented in this encounter Administered Medications Inactive Administered Medications - up to 3 most recent administrations Medication Order MAR Action Action Date Dose Rate Site Acetaminophen (Tylenol) tab 650 mg 650 mg, Oral, ONCE, On Tue01/20/24 at 1500, For 1 dose, Maximum of 4 grams (4000 mg) per day. Given 01/20/2024 2:53 PM EST 650 mg cycloPHOSphamide (Cytoxan) 620 mg in NSS 250 mL infusion 620 mg (rounded from 621 mg = 300 mg/m2 2.07 m2 Treatment Plan BSA from Recorded weight), IV Piggyback, at 500 mL/hr Administer over 30 Minutes, Cyclophosphamide doses over 1g should be in 500 mL. May extend infusion to 1 hour if not tolerated., ONCE, 1 dose, On Tue01/20/24 at 1515 Start Infusion 01/20/2024 3:30 PM EST 620 mg 500 mL/hr Daratumumab-hyaluronida se-fihj (Darzalex Faspro) 1800 mg-51191 units/ 15 ml subcut inj 15 mL, Subcutaneous, ONCE, On Tue01/20/24 at 1615, For 1 dose, Inject subcutanteously into abdomen over 3 to 5 minutes Given 01/20/2024 3:30 PM EST 15 mL Abdomen Left Upper diphenhydrAMINE (Benadryl) cap 50 mg 50 mg, Oral, ONCE, On Tue01/20/24 at 1500, For 1 dose Given 01/20/2024 2:54 PM EST 50 mg hEParin 100 UNIT/ML Lock Flush inj 500 Units 500 Units (5 mL), IV Lock, PRN Other, IV Flush, Starting on Tue01/20/24 at 1435, Until Tue01/20/24 at 2021, For 24 hours, Do not flush if lock, PICC, or central line not in place; IV infusing or unable to flush. Given 01/20/2024 4:03 PM EST 500 Units NSS infusion FOR HYDRATION Intravenous, at 50 mL/hr Administer over 10 Hours, ONCE, 1 dose, On Tue01/20/24 at 1515 Start Infusion 01/20/2024 2:45 PM EST 500 mL 50 mL/hr ondansetron (Zofran) tab 8 mg 8 mg, Oral, ONCE, On Tue01/20/24 at 1500, For 1 dose Given 01/20/2024 2:53 PM EST 8 mg sodium chloride 0.9 % flush central line 10 mL 10 mL, IV Push, PRN Other, IV Flush, Starting on Tue01/20/24 at 1435, Until Tue01/20/24 at 202, For 24 hours, Do not flush if lock, PICC, or central line not in place; IV infusing or unable to flush. Given 01/20/2024 4:03 PM EST 10 mL documented in this encounter Advance Directives Documents on File Type Date Recorded Patient Enzyme Chemist Expl anation Power of Labor Service Representative 12/12/2018 8:46 AM Vipin viveros Power of Labor Service Representative Power of Labor Service Representative 12/12/2018 8:45 AM Zuleyma ferguson Power of Labor Service Representative Latest Code Status on File Code Status [...] the patient have Health Care Power of Labor Service Representative? Yes, not currently available Full Code 11/21/2018 8:53 AM 11/21/2018 2:27 PM This or bull reflects the patients wishes and were consensually agreed upon. Care Teams Vacuum Cleaner Repair Person Relationship Specialty Start Date End Date Kulwinder Byers MD [address] [place] [address] PCP - General 06/28/03 documented as of this encounter
--- OUTSIDE RECORDS SUMMARY | 2024-03-19 06:59 | External Medical Summary | Summary of Care ---
Author Name Unknown Organization [facility] Address [address] [facility] [place] [address] Phone [phone] Care Team Providers Care Phosphorus Processing Supervisor Name Role Phone Kulwinder Byers MD Primary Care Provider Reason for Visit * Reason Comments Chemotherapy Cytoxan. * Episode Based Medications (Routine) - Authorized Specialty Diagnoses / Procedures Referred By Contac t Referred To Contact Diagnoses Multiple myeloma not having achieved remission (HCC) Procedures ND DARATUMUMAB, HYALURONIDASE ND CYCLOPHOSPHAMIDE 100 MG INJ ND INJ, CYCLOPHOSPHAMIDE, NOS Jorge Allen MD [address] [place] [address] Anc Hem/Onc Scenery Rit[place] DEPT CLOSED - 09/27/23 [address] [place] [address] Referral ID Status Reason Start Date Expiration Date V isits Requested Visits Authorized [id number] Authorized 07/23/2022 11/13/2099 999 99 Encounter Details Date Type Department Care Team (Latest Contact Info) Description 01/27/2024 2:15 PM EDT Hem/Onc Treatment Hematology/Oncolog y Treatment, [place] [address] [place] [phone] Ritu, Chair 9 Hem Onc Scenery [address] [place] [address] Multiple myeloma not having achieved remission (HCC)*; Encounter for antineoplastic chemotherapy Allergies Active Allergy Reactions Criticality Noted Date Comments Adhesive Tape 05/28/2003 documented as of this encounter (statuses as of 03/16/2024) Medications Medication Sig Dispensed Refills Start Date [...] 30 Tab 0 12/25/2018 Active nystatin (NYSTOP) 906293 UNIT/GM powder Apply topically to affected area [...] THE MORNING 90 Tablet 3 08/01/2023 Active Additional Information Patient taking differently: Alternate taking 20mg and 40mg daily, Reported on 01/27/2024 Venlafaxine HCl 75 MG Oral Tablet (Effexor) [...] for Pain, Breakthrough. 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 Marceal Crenshaw. 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 Aortic valve stenosis 2021 documented as of this encounter (statuses as of 03/16/2024) Social History Tobacco Use Types Packs/Day Years [...] Sign Reading Time Taken Comments Blood Pressure 128/81 01/27/2024 2:15 PM EDT Pulse 89 01/27/2024 2:15 PM EDT Temperature 36.6 C (97.9 F) 01/27/2024 2:15 PM ED T Respiratory Rate 18 01/27/2024 2:15 PM EDT Oxygen Saturation 94% 01/27/2024 2:15 PM EDT Inhaled Oxygen Concentration - - Weight 110 kg (242 lb 6.4 oz) 01/27/2024 2:15 PM EDT Height - - Body Mass Index 48.87 12/28/2023 10:14 AM EST documented in this [...] Nursing Notes * Brenda Ashton RN - 01/27/2024 3:40 PM EDT Goals: Patient will remain free from injury. Possible barriers to meeting goals: Fall risk d/t ambulation with IV pole. Stability of the patient: Moderately unstable - medium risk of patient condition declining or worsening Summary regarding today's goals: Met: Patient remained free of injury. Patient tolerated infusion well. Discharged in stable condition. * Brenda Ashton RN - 01/27/2024 2:46 PM EDT Chair 4. Patient arrived for cytoxan infusion with no acute complaints. Patients platelets are 93, reviewed labs with Dr. Allen and per Dr. Allen ok to treat. VAD accessed, no blood return obtained but per IR (see note) port is ok to use. Chemotherapy/Immunotherapy agents: CYTOXAN Consent for chemotherapy drug treatment complete, dated, and signed? yes, date - 11/11/22 Treatment lab parameters met? Yes. See above note. Has treatment weight changed > than 10%? No Treatment preauthorized? Yes VITALS Filed Vitals: 01/27/24 1415 BP: 128/81 Pulse: 89 Resp: 18 Temp: 36.6 C (97.9 F) TempSrc: Tympanic SpO2: 94% Weight: 110 kg (242 lb 6.4 oz) Urine protein: N/A Patient education completed for [...] OTHER: denies any additional symptoms PAIN: 0 Safety and Risk for Injury Patient will remain free from injury. Ensure appropriate safety devices are available. Provide and maintain safe environment. documented in this encounter Plan of Treatment Upcoming Encounters Date Type Department Care Team (Late st Contact Info) Description 03/22/2024 12:10 PM EDT Laboratory Laboratory [place] [address] [place] [phone] Ritu Lab Scenery [address] [place] [address] 03/22/2024 1:00 PM EDT [facility] [address] [facility], [place] [phone] Ritu, Chair 10 Hem Onc [address] [place] [address] 03/30/2024 1:00 PM EDT Laboratory Laboratory [facility] [address] [place] [phone] Ritu Lab [address] [place], [place] [address] 03/30/2024 2:15 PM EDT Office Visit Hematology/Oncology [address] [place] [phone] Jorge Allen MD [address] [place], [place] [address] [address] 03/30/2024 2:45 PM EDT Hem/Onc Treatment Hematology/Oncology [address] [phone] Health Maintenance Due Date Last Done Comments [...] this encounter Medical Devices Implanted Type Area Md Physician Dermatologist Device Identifier Shelf Expiration Date Model / Serial / Lot Screw Elbow Humeral Total - [id number] Implanted:Qty: 1 on 12/23/2018 by Gautam Jasso MD at [place] [facility] Right: Upper Arm [employer] 09/13/2027 / / [id number] Deisi Nexel Total Elbow Implanted:Qty: 1 on 12/23/2018 by Gautam Jasso MD at [place] [facility] Right: Upper Arm 04/13/2023 / / [id number] Cement Antibiotic Bone - [id number] Implanted:Qty: 1 on 12/23/2018 by Gautam Jasso MD at [place] [facility] Right: Upper Arm RENY : ORTHOPAEDICS 05/13/2020 6197-9-010 / / [id number] Cement Antibiotic Bone - [id number] Implanted:Qty: 1 on 12/23/2018 by Gautam Jasso MD at OR [facility] Right: Upper Arm RENY : ORTHOPAEDICS 05/13/2020 6197-9-010 / / [id number] Stem Compr Srs Mod [id number] - [id number] Implanted:Qty: 1 on 12/23/2018 by Gautam Jasso MD at [place] [facility] Right: Upper Arm BIOMET : TRAUMA 01/28/2027523902 / / [id number] Deisi Nexel Total Elbow Ulnar Component Implanted:Qty: 1 on 12/23/2018 by Gautam Jasso MD at OR [facility] Right: Upper Arm 07/14/202500-025 -07 / / [id number] Comprehensive Srs/Nexel Distal Body Implanted:Qty: 1 on 12/23/2018 by Gautam Jasso MD at OR [facility] Right: Upper Arm 03/03/2028 [id number] / / [id number] Valve Ricky 3 Ultra 26mm - [id number] Implanted:Qty: 1 on 05/27/2022 by Jesús Weber MD at [facility] [employer] [id number] 03/17/2023 [id number] / / Port Implant W/8f Poly Cath - [id number] Implanted:Qty: 1 on 12/29/2022 by Sudhir Lovett DO at OR [facility] Right: Chest CR BARD : PERIPHERAL VASCULAR [id number] 02/12/2024 [id number] / / [id number] documented as of this encounter Visit Diagnoses [...] if not tolerated., ONCE, 1 dose, On Tue01/27/24 at 1445 Start Infusion 01/27/2024 3:00 PM EDT 620 mg 500 mL/hr hEParin 100 UNIT/ML Lock Flush inj 500 Units 500 Units (5 mL), IV Lock, PRN Other, IV Flush, Starting on Tue01/27/24 at 1408, Until Tue01/27/24 at 1941, For 24 hours, Do not flush if lock, PICC, or central line not in place; IV infusing or unable to flush. Given 01/27/2024 3:31 PM EDT 500 Units NSS infusion FOR HYDRATION Intravenous, at 50 mL/hr Administer over 10 Hours, ONCE, 1 dose, On Tue01/27/24 at 1445 Start Infusion 01/27/2024 2:25 PM EDT 500 mL 50 mL/hr ondansetron (Zofran) tab 8 mg 8 mg, Oral, ONCE, On Tue01/27/24 at 1445, For 1 dose Given 01/27/2024 2:32 PM EDT 8 mg sodium chloride 0.9 % flush central line 10 mL 10 mL, IV Push, PRN Other, IV Flush, Starting on Tue01/27/24 at 1408, Until Tue01/27/24 at 1941, For 24 hours, Do not flush if lock, PICC, or central line not in place; IV infusing or unable to flush. Given 01/27/2024 3:31 PM EDT 10 mL documented in this encounter Advance Directives Documents on File Type Date Recorded Patient Ship Pilot Dispatcher Expl anation Power of Core Winder 12/12/2018 8:46 AM Vipin viveros Power of Core Winder Power of Core Winder 12/12/2018 8:45 AM Zuleyma ferguson Power of Core Winder Latest Code Status on File Code Status [...] the patient have Health Care Power of Core Winder? Yes, not currently available Full Code 11/21/2018 8:53 AM 11/21/2018 2:27 PM This or bull reflects the patients wishes and were consensually agreed upon. Care Teams Phosphorus Processing Supervisor Relationship Specialty Start Date End Date Kulwinder Byers MD [address] [place] [address] PCP - General 06/28/03 documented as of this encounter
--- OUTSIDE RECORDS SUMMARY | 2024-03-19 06:59 | External Medical Summary | Summary of Care ---
Author Name Unknown Organization [facility] Address [address] [facility] [place] [address] Phone [phone] Care Team Providers Care Camp Program Director Name Role Phone Kulwinder Byers MD Primary Care Provider Reason for Visit * Reason Comments Chemotherapy Cytoxan/Darzalex Fas pro * Episode Based Medications (Routine) - Authorized Specialty Diagnoses / Procedures Referred By Contac t Referred To Contact Diagnoses Multiple myeloma not having achieved remission (HCC) Procedures [place] DARATUMUMAB, HYALURONIDASE [place] CYCLOPHOSPHAMIDE 100 MG INJ [place] INJ, CYCLOPHOSPHAMIDE, NOS Jorge Allen MD [address] [place], [place] [address] Anc Hem/Onc Ward Chaney DEPT CLOSED - 09/27/23 [address] [place] [address] Referral ID Status Reason Start Date Expiration Date V isits Requested Visits Authorized [id number] Authorized 07/23/2022 11/13/2099 999 99 Encounter Details Date Type Department Care Team (Latest Contact Info) Description 01/20/2024 2:15 PM EST Hem/Onc Treatment Hematology/Oncolog y Treatment, [place] [address] [place] [address] Ritu, Chair 5 Hem Onc Scenery [address] [place] [address] Multiple myeloma not having achieved remission (HCC)*; [...] 30 Tab 0 12/25/2018 Active nystatin (NYSTOP) 411459 UNIT/GM powder Apply topically to affected area [...] hospital for 2 days from 01/14-01/16 at [facility] for SOB -- increased lasix to 40 [...] Description 03/22/2024 12:10 PM EDT Laboratory Laboratory [facility] Ritu [place] [address] [address] [place] [phone] Ritu, Lab [place] [address] [place] [address] 03/22/2024 1:00 PM EDT Hem/Onc Treatment Hematology/Oncology Treatment, [place] [address] [facility] [place] [phone] Ritu, Chair 10 Hem Onc [place] [address] [place] [address] 03/30/2024 1:00 PM EDT Laboratory Laboratory [facility] Ritu [place] [address] [address] [place] [phone] Matt Chaney [facility] 200 [facility] [place] [address] 03/30/2024 2:15 PM EDT Office Visit Hematology/Oncology [facility] [place] 200 [facility] [place] [address] Jorge Allen MD 200 [facility] [place] [address] 03/30/2024 2:45 PM EDT [facility] [phone] Health Maintenance Due Date Last Done Comments [...] this encounter Medical Devices Implanted Type Area Lockstitch Lining Maker Device Identifier Shelf Expiration Date Model / Serial / Lot Screw Elbow Humeral Total - [id number] Implanted:Qty: 1 on 12/23/2018 by Gautam Jasso MD at [facility] Right: Upper Arm [employer] 09/13/20278400-090 - / / [id number] Deisi Nexel Total Elbow Implanted:Qty: 1 on 12/23/2018 by [place]autam Jasso [place] [facility] [place]: Upper Arm 04/13/2023-095 -00 / / [id number] Cement Antibiotic Bone - [id number] Implanted:Qty: 1 on 12/23/2018 by Gautam Jasso [place] [facility] [place]: Upper Arm RENY : ORTHOPAEDICS 05/13/2020 6197-9-010 / / [id number] Cement Antibiotic Bone - [id number] Implanted:Qty: 1 on 12/23/2018 by Gautam Jasso [place] [facility] [place]: Upper Arm RENY : ORTHOPAEDICS 05/13/2020 6197-9-010 / / [id number] Stem Compr Srs Mod 3c511ap - [id number] Implanted:Qty: 1 on 12/23/2018 by Gautam Jasso [place] [facility] [place]: Upper Arm BIOMET : TRAUMA 01/28/2027 [id number] / / [id number] Deisi Nexel Total Elbow Ulnar Component Implanted:Qty: 1 on 12/23/2018 by Gautam Jasso MD [place] [facility] [place]: Upper Arm 07/14/202500-025 / / [id number] Comprehensive Srs/Nexel Distal Body Implanted:Qty: 1 on 12/23/2018 by Gautam Jasso MD [place] [facility] Right: Upper Arm 03/03/2028 [id number] / / [id number] Valve Ricky 3 Ultra 26mm - [id number] Implanted:Qty: 1 on 05/27/2022 by Jesús Weber MD at [facility] [employer] [id number] 03/17/2023 [id number] / / Port Implant W/8f Poly Cath - [id number] Implanted:Qty: 1 on 12/29/2022 by Sudhir Lovett DO at OR [facility] Right: Chest CR BARD : PERIPHERAL VASCULAR [id number] 02/12/2024 [id number] / / [id number] documented as of this encounter Visit Diagnoses [...] 500 mL/hr Daratumumab-hyaluronida se-fihj (Darzalex Faspro) 1800 mg-18689 units/ 15 ml subcut inj 15 mL, [...] Documents on File Type Date Recorded Patient Patient Access Associate Expl anation Power of Press Operator Automatic 12/12/2018 8:46 AM Vipin viveros Power of Press Operator Automatic Power of Press Operator Automatic 12/12/2018 8:45 AM Zuleyma ferguson Power of Press Operator Automatic Latest Code Status on File Code Status [...] the patient have Health Care Power of Press Operator Automatic? Yes, not currently available Full Code 11/21/2018 8:53 AM 11/21/2018 2:27 PM This or bull reflects the patients wishes and were consensually agreed upon. Care Teams Camp Program Director Relationship Specialty Start Date End Date Kulwinder Byers MD [address] [place] [address] PCP - General 06/28/03 documented as of this encounter
--- OUTSIDE RECORDS SUMMARY | 2024-03-19 06:59 | External Medical Summary | Summary of Care ---
Author Name Unknown Organization [facility] Address [address] [facility] [place] [address] Phone [phone] Care Team Providers Care Film Processing Utility Worker Name Role Phone Kulwinder Byers MD Primary Care Provider Reason for Visit * Reason Comments Chemotherapy Cytoxan * Episode Based Medications (Routine) - Authorized Specialty Diagnoses / Procedures Referred By Contac t Referred To Contact Diagnoses Multiple myeloma not having achieved remission (HCC) Procedures [place] DARATUMUMAB, HYALURONIDASE [place] CYCLOPHOSPHAMIDE 100 MG INJ [place] INJ, CYCLOPHOSPHAMIDE, NOS Jorge Allen MD [address] [place] [address] Anc Hem/Onc Ward [place] DEPT CLOSED - 09/27/23 200 [facility] [place] [address] Referral ID Status Reason Start Date Expiration Date V isits Requested Visits Authorized [id number] Authorized 07/23/2022 11/13/2099 999 99 Encounter Details Date Type Department Care Team (Latest Contact Info) Description 01/13/2024 2:15 PM EST Hem/Onc Treatment Hematology/Oncology Treatment, [place] [address] [place] [phone] Ritu, [...] 30 Tab 0 12/25/2018 Active nystatin (NYSTOP) 405422 UNIT/GM powder Apply topically to affected area [...] of this encounter Nursing Notes * Merrick Gross, GABRIELLE - 01/13/2024 3:35 PM EST Pt infusion [...] Description 03/22/2024 12:10 PM EDT Laboratory Laboratory [facility] [place] 200 [facility] [place] [phone] Ritu, Lab [facility] [address] [place] [address] 03/22/2024 1:00 PM EDT Hem/Onc Treatment Hematology/Oncology Treatment, [place] [address] [place] [phone] Ritu, Chair 10 Hem Onc [facility] 200 [facility] [place] [address] 03/30/2024 1:00 PM EDT Laboratory Laboratory [facility] [place] [address] [facility] [place] [phone] Ritu [facility] 200 [facility] [place] [address] 03/30/2024 2:15 PM EDT Office Visit Hematology/Oncology [facility] Ritu [place] [address] [facility] [place] [phone] Jorge Allen MD 200 [place] [address] 03/30/2024 2:45 PM EDT Hem/Onc Treatment Hematology/Oncology Treatment, [place] 200 [facility] [phone] Health Maintenance Due Date Last Done Comments [...] this encounter Medical Devices Implanted Type Area Cigarette Stamper Device Identifier Shelf Expiration Date Model / Serial / Lot Screw Elbow Humeral Total - [id number] Implanted:Qty: 1 on 12/23/2018 by Gautam Jasso MD [place] [facility] [place]: Upper Arm [employer] 09/13/2027-0 - / / [id number] Deisi Nexel Total Elbow Implanted:Qty: 1 on 12/23/2018 by Gautam Jasso MD [place] [facility] [place]: Upper Arm 04/13/2023 / / [id number] Cement Antibiotic Bone - [id number] Implanted:Qty: 1 on 12/23/2018 by Gautam Jasso MD [place] [facility] [place]: Upper Arm RENY : ORTHOPAEDICS 05/13/2020 6197-9-010 / / [id number] Cement Antibiotic Bone - [id number] Implanted:Qty: 1 on 12/23/2018 by Gautam Jasso MD [place] [facility] [place]: Upper Arm RENY : ORTHOPAEDICS 05/13/2020 6197-9-010 / / [id number] Stem Compr Srs Mod 1d212tl - [id number] Implanted:Qty: 1 on 12/23/2018 by Gautam Jasso MD [place] [facility] [place]: Upper Arm BIOMET : TRAUMA 01/28/2027 [id number] / / [id number] Deisi Nexel Total Elbow Ulnar Component Implanted:Qty: 1 on 12/23/2018 by Gautam Jasso MD [place] [facility] [place]: Upper Arm 07/14/202500-025 -07 / / [id number] Comprehensive Srs/Nexel Distal Body Implanted:Qty: 1 on 12/23/2018 by Gautam Jasso MD [place] [facility] [place]: Upper Arm 03/03/2028 [id number] / / [id number] Valve Ricky 3 Ultra 26mm - [id number] Implanted:Qty: 1 on 05/27/2022 by Jesús Weber MD at [facility] [employer] [id number] 03/17/2023 [id number] / / Port Implant W/8f Poly Cath - [id number] Implanted:Qty: 1 on 12/29/2022 by Sudhir Lovett DO at OR [facility] Right: Chest CR BARD : PERIPHERAL VASCULAR [id number] 02/12/2024 [id number] / / [id number] documented as of this encounter Visit Diagnoses [...] Flush, Starting on Tue01/13/24 at 1430, Until Tue01/13/24 at 1937, For 24 hours, Do not flush if lock, PICC, or central line not in place; IV infusing or unable to flush. Given 01/13/2024 3:27 PM EST 500 Units NSS infusion FOR HYDRATION Intravenous, at 50 mL/hr Administer over 10 Hours, ONCE, 1 dose, On Tue01/13/24 at 1515 Start Infusion 01/13/2024 2:53 PM EST 500 mL 50 mL/hr ondansetron (Zofran) tab 8 mg 8 mg, Oral, ONCE, On Tue01/13/24 at 1515, For 1 dose Given 01/13/2024 2:38 PM EST 8 mg sodium chloride 0.9 % flush central line 10 mL 10 mL, IV Push, PRN Other, IV Flush, Starting on Tue01/13/24 at 1430, Until Tue01/13/24 at 1937, For 24 hours, Do not flush if lock, PICC, or central line not in place; IV infusing or unable to flush. Given 01/13/2024 3:27 PM EST 10 mL documented in this encounter Advance Directives Documents on File Type Date Recorded Patient Senior Ruby Developer Expl anation Power of Maintenance Shop Technician 12/12/2018 8:46 AM Healt hcare Power of Maintenance Shop Technician Power of Maintenance Shop Technician 12/12/2018 8:45 AM Abisailayla marty Power of Maintenance Shop Technician Latest Code Status on File Code [...] the patient have Health Care Power of Maintenance Shop Technician? Yes, not currently available Full Code 11/21/2018 8:53 AM 11/21/2018 2:27 PM This or bull reflects the patients wishes and were consensually agreed upon. Care Teams Film Processing Utility Worker Relationship Specialty Start Date End Date Kulwinder Byers MD [address] [address] PCP - General 06/28/03 documented as of this encounter
--- OUTSIDE RECORDS SUMMARY | 2024-03-19 06:59 | External Medical Summary | Summary of Care ---
Author Name Unknown Organization [facility] Address [address] [facility] [place] [address] Phone [phone] Care Team Providers Care Biofuels Plant Manager Name Role Phone Kulwinder Byers MD Primary Care Provider [phone] Reason for Visit * Reason Comments Chemotherapy Cytoxan. * Episode Based Medications (Routine) - Authorized Specialty Diagnoses / Procedures Referred By Contac t Referred To Contact Diagnoses Multiple myeloma not having achieved remission (HCC) Procedures [place] DARATUMUMAB, HYALURONIDASE [place] CYCLOPHOSPHAMIDE 100 MG INJ [place] INJ, CYCLOPHOSPHAMIDE, NOS Jorge Allen MD [address] [place] [address] Anc Hem/Onc Scenery Ritu DEPT CLOSED - 09/27/23 [address] [place] [address] Referral ID Status Reason Start Date Expiration Date V isits Requested Visits Authorized [id number] Authorized 07/23/2022 11/13/2099 999 99 Encounter Details Date Type Department Care Team (Latest Contact Info) Description 01/27/2024 2:15 PM EDT Hem/Onc Treatment Hematology/Oncolog y Treatment, [place] [address] [place] [phone] Ritu, Chair 9 Hem Onc Scenery [address] [place] [address] Multiple myeloma not having achieved remission (HCC)*; [...] 30 Tab 0 12/25/2018 Active nystatin (NYSTOP) 960912 UNIT/GM powder Apply topically to affected area [...] [place] [address] [place] [phone] Ritu Lab Scenery [address] [place] [address] 03/22/2024 1:00 PM EDT Hem[facility] 200 [facility], [place] [phone] Ritu, Chair 10 Hem Onc [address] [place] [address] 03/30/2024 1:00 PM EDT Laboratory Laboratory [facility] [address] [place] [phone] Ritu Lab [address] [place], [place] [address] 03/30/2024 2:15 PM EDT Office Visit Hematology/Oncology [address] [place] [phone] Jorge Allen MD [address] [place], [place] [address] [address] 03/30/2024 2:45 PM EDT Hem/Onc Treatment Hematology/Oncology [address] [phone] Health Maintenance Due Date Last Done Comments [...] this encounter Medical Devices Implanted Type Area Bottom Painter Device Identifier Shelf Expiration Date Model / Serial / Lot Screw Elbow Humeral Total - [id number] Implanted:Qty: 1 on 12/23/2018 by Gautam [place]asso [place] [facility] [place]: Upper Arm [employer] 09/13/2027 / / [id number] Deisi Nexel Total Elbow Implanted:Qty: 1 on 12/23/2018 by Gautam Jasso MD [place] [facility] [place]: Upper Arm 04/13/2023 / / [id number] Cement Antibiotic Bone - [id number] Implanted:Qty: 1 on 12/23/2018 by Gautam Jasso MD [place] [facility] [place]: Upper Arm RENY : ORTHOPAEDICS 05/13/2020 6197-9-010 / / [id number] Cement Antibiotic Bone - [id number] Implanted:Qty: 1 on 12/23/2018 by Gautam Jasso MD [place] [facility] [place]: Upper Arm RENY : ORTHOPAEDICS 05/13/2020 6197-9-010 / / [id number] Stem Compr Srs Mod 9x832tu - [id number] Implanted:Qty: 1 on 12/23/2018 by Gautam Jasso MD [place] [facility] Right: Upper Arm BIOMET : TRAUMA 01/28/2027865427 / / [id number] Deisi Nexel Total Elbow Ulnar Component Implanted:Qty: 1 on 12/23/2018 by Gautam Jasso MD [place] [facility] [place]: Upper Arm 07/14/202500-025 -07 / / [id number] Comprehensive Srs/Nexel Distal Body Implanted:Qty: 1 on 12/23/2018 by Gautam Jasso MD [place] [facility] Right: Upper Arm 03/03/2028 [id number] / / [id number] Valve Ricky 3 Ultra 26mm - [id number] Implanted:Qty: 1 on 05/27/2022 by Jesús Weber MD at [facility] [employer] [id number] 03/17/2023 [id number] / / Port Implant W/8f Poly Cath - [id number] Implanted:Qty: 1 on 12/29/2022 by Sudhir Lovett DO at OR [facility] Right: Chest CR BARD : PERIPHERAL VASCULAR [id number] 02/12/2024 [id number] / / [id number] documented as of this encounter Visit Diagnoses [...] Documents on File Type Date Recorded Patient Sisal Picker Expl anation Power of Message And Delivery Service Pricer 12/12/2018 8:46 AM Vipin viveros Power of Message And Delivery Service Pricer Power of Message And Delivery Service Pricer 12/12/2018 8:45 AM Zuleyma ferguson Power of Message And Delivery Service Pricer Latest Code Status on File Code Status [...] the patient have Health Care Power of Message And Delivery Service Pricer? Yes, not currently available Full Code 11/21/2018 8:53 AM 11/21/2018 2:27 PM This or bull reflects the patients wishes and were consensually agreed upon. Care Teams Biofuels Plant Manager Relationship Specialty Start Date End Date Kulwinder Byers MD [address] [place] [address] PCP - General 06/28/03 documented as of this encounter
--- OUTSIDE RECORDS SUMMARY | 2024-03-19 06:59 | External Medical Summary | Summary of Care ---
Author Name Unknown Organization [facility] Address [address] [facility] [place] [address] Phone [phone] Care Team Providers Care Buying Agent Name Role Phone Kulwinder Byers MD Primary Care Provider Reason for Visit * Reason Comments Chemotherapy Cytoxan/Darzalex Fas pro * Episode Based Medications (Routine) - Authorized Specialty Diagnoses / Procedures Referred By Contac t Referred To Contact Diagnoses Multiple myeloma not having achieved remission (HCC) Procedures [place] DARATUMUMAB, HYALURONIDASE [place] CYCLOPHOSPHAMIDE 100 MG INJ [place] INJ, CYCLOPHOSPHAMIDE, NOS Jorge Allen MD [address] [place], [place] [address] Anc Hem/Onc [address] [place] DEPT CLOSED - 09/27/23 [address] [place] [address] Referral ID Status Reason Start Date Expiration Date V isits Requested Visits Authorized [id number] Authorized 07/23/2022 11/13/2099 999 99 Encounter Details Date Type Department Care Team (Latest Contact Info) Description 01/20/2024 2:15 PM EST Hem/Onc Treatment Hematology/Oncolog y Treatment, [place] [address] [place] [phone] Ritu, Chair 5 Hem Onc Scenery [address] [place] [address] Multiple myeloma not having achieved remission (HCC)*; [...] 30 Tab 0 12/25/2018 Active nystatin (NYSTOP) 006494 UNIT/GM powder Apply topically to affected area [...] hospital for 2 days from 01/14-01/16 at [facility] for SOB -- increased lasix to 40 [...] Description 03/22/2024 12:10 PM EDT Laboratory Laboratory [facility] Ritu [place] [address] [address] [place] [phone] Ritu, Lab [place] [address] [place] [address] 03/22/2024 1:00 PM EDT Hem/Onc Treatment Hematology/Oncology Treatment, [place] [address] [facility] [place] [phone] Ritu, Chair 10 Hem Onc [place] [address] [place] [address] 03/30/2024 1:00 PM EDT Laboratory Laboratory [facility] Ritu [place] [address] [address] [place] [phone] Matt [place] [facility] 200 [facility] [place] [address] 03/30/2024 2:15 PM EDT Office Visit Hematology/Oncology [facility] [place] 200 [place] [phone] Jorge Allen MD 200 [place] [address] 03/30/2024 2:45 PM EDT Hem[facility] [phone] Health Maintenance Due Date Last Done Comments [...] this encounter Medical Devices Implanted Type Area Home Economics Teacher Device Identifier Shelf Expiration Date Model / Serial / Lot Screw Elbow Humeral Total - [id number] Implanted:Qty: 1 on 12/23/2018 by Gautam Jasso MD at [facility] Right: Upper Arm [employer] 09/13/20278400-090 - / / [id number] Deisi Nexel Total Elbow Implanted:Qty: 1 on 12/23/2018 by Gautam Jasso MD at [place] [facility] [place] [facility] Right: Upper Arm 04/13/2023-095 -00 / / [id number] Cement Antibiotic Bone - [id number] Implanted:Qty: 1 on 12/23/2018 by Gautam Jasso MD at [place] [facility] [place] Right: Upper Arm RENY : ORTHOPAEDICS 05/13/2020 6197-9-010 / / [id number] Cement Antibiotic Bone - [id number] Implanted:Qty: 1 on 12/23/2018 by Gautam Jasso MD at [place] [facility] [place] Right: Upper Arm RENY : ORTHOPAEDICS 05/13/2020 6197-9-010 / / [id number] Stem Compr Srs Mod 5l907cj - [id number] Implanted:Qty: 1 on 12/23/2018 by Gautam Jasso MD at [place] [facility] Right: Upper Arm BIOMET : TRAUMA 01/28/2027 [id number] / / [id number] Deisi Nexel Total Elbow Ulnar Component Implanted:Qty: 1 on 12/23/2018 by Gautam Jasso MD at [place] [facility] [place] Right: Upper Arm 07/14/202500-025 / / [id number] Comprehensive Srs/Nexel Distal Body Implanted:Qty: 1 on 12/23/2018 by Gautam Jasso MD at [place] [facility] Right: Upper Arm 03/03/2028 [id number] / / [id number] Valve Ricky 3 Ultra 26mm - [id number] Implanted:Qty: 1 on 05/27/2022 by Jesús Weber MD at [facility] [employer] [id number] 03/17/2023 [id number] / / Port Implant W/8f Poly Cath - [id number] Implanted:Qty: 1 on 12/29/2022 by Sudhir Lovett DO at OR [facility] Right: Chest CR BARD : PERIPHERAL VASCULAR [id number] 02/12/2024 [id number] / / [id number] documented as of this encounter Visit Diagnoses [...] 500 mL/hr Daratumumab-hyaluronida se-fihj (Darzalex Faspro) 1800 mg-40348 units/ 15 ml subcut inj 15 mL, [...] Documents on File Type Date Recorded Patient Funeral Director/Embalmer/Owner Expl anation Power of Food Service Counter Clerk 12/12/2018 8:46 AM Vipin viveros Power of Food Service Counter Clerk Power of Food Service Counter Clerk 12/12/2018 8:45 AM Zuleyma ferguson Power of Food Service Counter Clerk Latest Code Status on File Code [...] the patient have Health Care Power of Food Service Counter Clerk? Yes, not currently available Full Code 11/21/2018 8:53 AM 11/21/2018 2:27 PM This or bull reflects the patients wishes and were consensually agreed upon. Care Teams Buying Agent Relationship Specialty Start Date End Date Kulwinder Byers MD [address] [place] [address] PCP - General 06/28/03 documented as of this encounter
--- OUTSIDE RECORDS SUMMARY | 2024-03-19 06:59 | External Medical Summary | Summary of Care ---
Author Name Unknown Organization [facility] Address [address] [facility] [place] [address] Phone [phone] Care Team Providers Care Door Liner Name Role Phone Kulwidner Byers MD Primary Care Provider Reason for Visit * Reason Comments Follow Up Port check Encounter Details Date Type Department Care Team (Late st Contact Info) Description 01/02/2024 12:00 PM EST Office Visit Interventional Radiology, [facility] [address], [place] [id number] Dustin Velásquez MD [address] [place], [place] [phone] Encounter for care related to vascular access port* Allergies Active Allergy Reactions Criticality Noted Date [...] 30 Tab 0 12/25/2018 Active nystatin (NYSTOP) 293000 UNIT/GM powder Apply topically to affected area [...] Sign Reading Time Taken Comments Blood Pressure 163/89 01/02/2024 12:37 PM EST Pulse 106 01/02/2024 12:37 PM EST Temperature - - Respiratory Rate 18 01/02/2024 12:37 PM EST Oxygen Saturation 97% 01/02/2024 12:37 PM EST Inhaled Oxygen Concentration - - [...] as of this encounter Progress Notes * Dustin Velásquez MD - 01/02/2024 1:14 PM EST Chantel Roy; [id number]; Date of exam:01/02/2024 rTPA left to dwell for 5 days. Port accessed. No blood aspirated. Alternatives discussed with pt. Continue to use the port as is. Fibrin stripping via groin. Pt body habitus makes groin vascular injury higher than average. Remove right port and replace with left port. Pt prefers to continue to use right port as is cc: MD Dustin Lewis MD documented in this encounter Nursing Notes * Medina Zamora RN - 01/02/2024 12:39 PM EST Pt brought to consultation room at 1215 ambulating independently. Vitals obtained, pt has no complaints of pain, nausea, dizziness, or SOB. Pt states they are here for port check. Dr. Dustin Velásquez present in consultation room. Port accessed with sterile technique. Unable to aspirate any fluid from port. Port flushes with no issues. Dr. Velásquez contacted Dr. Allen with this information. Port deaccessed after locked with heparin flush. No dressing applied to site. Patient taken by wheelchair to waiting room after answering all questions to patient satisfaction. BP 163/89 | Pulse 106 | Resp 18 | SpO2 97% documented in this encounter Plan of Treatment Upcoming Encounters Date Type Department Care Team (Late st Contact Info) Description 03/22/2024 12:10 PM EDT Laboratory Laboratory [place] [address] [facility] [place] [phone] Ritu, Lab [facility] [address] [facility] [place], [place] [address] 03/22/2024 1:00 PM EDT [facility] [address] [facility], [place] [phone] Ritu, Chair 10 Hem Onc [facility] [address] [place], [place] [address] 03/30/2024 1:00 PM EDT Laboratory Laboratory [facility] [place] [address] [facility] [place] [phone] Ritu, Lab [facility] [address] [facility] [place], [place] [address] 03/30/2024 2:15 PM EDT Office Visit Hematology/Oncology [facility] [place] [address] [facility] [place], [place] [phone] Jorge Allen MD [address] [facility] [place], [place] [address] 03/30/2024 2:45 PM EDT [facility] [address] [facility], [place] [phone] Health Maintenance Due Date Last Done Comments [...] this encounter Medical Devices Implanted Type Area Chemist Helper Device Identifier Shelf Expiration Date Model / Serial / Lot Screw Elbow Humeral Total - [id number] Implanted:Qty: 1 on 12/23/2018 by Gautam Jasso MD [place] [facility] Right: Upper Arm [employer] INC 09/13/2027-0 / / [id number] Deisi Nexel Total Elbow Implanted:Qty: 1 on 12/23/2018 by Gautam Jasso MD at [place] [facility] Right: Upper Arm 04/13/2023 / / [id number] Cement Antibiotic Bone - [id number] Implanted:Qty: 1 on 12/23/2018 by Gautam Jasso MD at [place] [facility] Right: Upper Arm RENY : ORTHOPAEDICS 05/13/2020 6197-9-010 / / [id number] Cement Antibiotic Bone - [id number] Implanted:Qty: 1 on 12/23/2018 by Gautam Jasso MD at [place] [facility] Right: Upper Arm RENY : ORTHOPAEDICS 05/13/2020 6197-9-010 / / [id number] Stem Compr Srs Mod [id number] - [id number] Implanted:Qty: 1 on 12/23/2018 by Gautam Jasso MD at [place] [facility] Right: Upper Arm BIOMET : TRAUMA 01/28/2027 [id number] / / [id number] Deisi Nexel Total Elbow Ulnar Component Implanted:Qty: 1 on 12/23/2018 by Gautam Jasso MD at [place] [facility] Right: Upper Arm 07/14/202500-025 -07 / / [id number] Comprehensive Srs/Nexel Distal Body Implanted:Qty: 1 on 12/23/2018 by Gautam Jasso MD at [place] [facility] Right: Upper Arm 03/03/2028 [id number] / / [id number] Valve Ricky 3 Ultra 26mm - [id number] Implanted:Qty: 1 on 05/27/2022 by Jesús Weber MD at [facility] [employer] [id number] 03/17/2023 [id number] / / Port Implant W/8f Poly Cath - [id number] Implanted:Qty: 1 on 12/29/2022 by Sudhir Lovett DO at OR [facility] Right: Chest CR BARD : PERIPHERAL VASCULAR [id number] 02/12/2024 [id number] / / [id number] documented as of this encounter Visit Diagnoses Diagnosis Encounter for care related to vascular access port- Primary Fitting and adjustment of vascular catheter documented in this encounter Advance Directives Documents on File Type Date Recorded Patient Registered Nurse Cardiovascular Icu Expl anation Power of Warehouse Operator 12/12/2018 8:46 AM Vipin viveros Power of Warehouse Operator Power of Warehouse Operator 12/12/2018 8:45 AM Zuleyma ferguson Power of Warehouse Operator Latest Code Status on File Code [...] the patient have Health Care Power of Warehouse Operator? Yes, not currently available Full Code 11/21/2018 8:53 AM 11/21/2018 2:27 PM This or bull reflects the patients wishes and were consensually agreed upon. Care Teams Door Liner Relationship Specialty Start Date End Date Kulwinder Byers MD [address] [place] [address] PCP - General 06/28/03 documented as of this encounter"
--- OUTSIDE RECORDS SUMMARY | 2024-03-19 06:59 | External Medical Summary | Summary of Care ---
Author Name Unknown Organization [facility] Address [address] [facility] [place] [address] Phone [phone] Care Team Providers Care Sign Erector And Repairer Name Role Phone Kulwinder Byers MD Primary Care Provider Reason for Visit * Reason Comments Chemotherapy Cytoxan * Episode Based Medications (Routine) - Authorized Specialty Diagnoses / Procedures Referred By Contac t Referred To Contact Diagnoses Multiple myeloma not having achieved remission (HCC) Procedures [place] DARATUMUMAB, HYALURONIDASE [place] CYCLOPHOSPHAMIDE 100 MG INJ WI INJ, CYCLOPHOSPHAMIDE, NOS Jorge Allen MD [address] [place] [address] Anc Hem/Onc [address] [facility] DEPT CLOSED - 09/27/23 [facility] [place] [address] Referral ID Status Reason Start Date Expiration Date V isits Requested Visits Authorized [id number] Authorized 07/23/2022 11/13/2099 999 99 Encounter Details Date Type Department Care Team (Latest Contact Info) Description 01/13/2024 2:15 PM EST Hem/Onc Treatment Hematology/Oncology Treatment, [place] [address] [place] [address] Ritu, [...] 30 Tab 0 12/25/2018 Active nystatin (NYSTOP) 855095 UNIT/GM powder Apply topically to affected area [...] Description 03/22/2024 12:10 PM EDT Laboratory Laboratory [facility] [place] [address] [facility] [place] [phone] Ritu, Lab [facility] [address] [place] [address] 03/22/2024 1:00 PM EDT Hem/Onc Treatment Hematology/Oncology Treatment, [place] [address] [place] [phone] Ritu, Chair 10 Hem Onc [facility] [address] [facility] [place] [address] 03/30/2024 1:00 PM EDT Laboratory Laboratory [facility] [place] [address] [facility] [place] [phone] Ritu [facility] [address] [facility] [place] [address] 03/30/2024 2:15 PM EDT Office Visit Hematology/Oncology [facility] Ritu [place] [address] [facility] [place] [phone] Jorge Allen MD [address] [place] [address] 03/30/2024 2:45 PM EDT Hem/Onc Treatment [facility]ology[facility] [place] [facility] [phone] Health Maintenance Due Date Last Done Comments [...] this encounter Medical Devices Implanted Type Area Welder Experimental Device Identifier Shelf Expiration Date Model / Serial / Lot Screw Elbow Humeral Total - [id number] Implanted:Qty: 1 on 12/23/2018 by G[place]am [place]asso [place] [facility] [place]: Upper Arm [employer] 09/13/2027-0 - / / [id number] Deisi Nexel Total Elbow Implanted:Qty: 1 on 12/23/2018 by Gautam Jasso MD [place] [facility] [place]: Upper Arm 04/13/2023 / / [id number] Cement Antibiotic Bone - [id number] Implanted:Qty: 1 on 12/23/2018 by Gautam Jasso MD [place] [facility] [place]: Upper Arm RENY : ORTHOPAEDICS 05/13/2020 6197-9-010 / / [id number] Cement Antibiotic Bone - [id number] Implanted:Qty: 1 on 12/23/2018 by Gautam Jasso MD [place] [facility] [place]: Upper Arm RENY : ORTHOPAEDICS 05/13/2020 6197-9-010 / / [id number] Stem Compr Srs Mod [id number] - [id number] Implanted:Qty: 1 on 12/23/2018 by Gautam Jasso MD [place] [facility] [place]: Upper Arm BIOMET : TRAUMA 01/28/2027 [id number] / / [id number] Deisi Nexel Total Elbow Ulnar Component Implanted:Qty: 1 on 12/23/2018 by Gautam Jasso MD [place] [facility] [place]: Upper Arm 07/14/202500-025 -07 / / [id number] Comprehensive Srs/Nexel Distal Body Implanted:Qty: 1 on 12/23/2018 by Gautam Jasso MD [place] [facility] Right: Upper Arm 03/03/2028 [id number] / / [id number] Valve Ricky 3 Ultra 26mm - [id number] Implanted:Qty: 1 on 05/27/2022 by Jesús Weber MD at [facility] [employer] [id number] 03/17/2023 [id number] / / Port Implant W/8f Poly Cath - [id number] Implanted:Qty: 1 on 12/29/2022 by Sudhir Lovett DO at OR [facility] [place] Right: Chest CR BARD : PERIPHERAL VASCULAR [id number] 02/12/2024 [id number] / / [id number] documented as of this encounter Visit Diagnoses [...] Documents on File Type Date Recorded Patient Herbarium Worker Expl anation Power of Visual Designer 12/12/2018 8:46 AM Healt hcare Power of Visual Designer Power of Visual Designer 12/12/2018 8:45 AM Abisailayla marty Power of Visual Designer Latest Code Status on File Code Status [...] the patient have Health Care Power of Visual Designer? Yes, not currently available Full Code 11/21/2018 8:53 AM 11/21/2018 2:27 PM This or bull reflects the patients wishes and were consensually agreed upon. Care Teams Sign Erector And Repairer Relationship Specialty Start Date End Date Kulwinder Byers MD [address] [address] PCP - General 06/28/03 documented as of this encounter
--- OUTSIDE RECORDS SUMMARY | 2024-03-19 06:59 | External Medical Summary | Summary of Care ---
Author Name Unknown Organization [facility] Address [address] [facility] [place] [address] Phone [phone] Care Team Providers Care Log Marker Name Role Phone Kulwinder Byers MD Primary Care Provider [phone] Reason for Visit * Reason Comments Chemotherapy Cytoxan/Darzalex Fas pro * Episode Based Medications (Routine) - Authorized Specialty Diagnoses / Procedures Referred By Contac t Referred To Contact Diagnoses Multiple myeloma not having achieved remission (HCC) Procedures [place] DARATUMUMAB, HYALURONIDASE SD CYCLOPHOSPHAMIDE 100 MG INJ SD INJ, CYCLOPHOSPHAMIDE, NOS Jorge Allen MD [address] [place], [place] [address] Anc Hem/Onc [address] [facility] DEPT CLOSED - 09/27/23 [address] [place] [address] Referral ID Status Reason Start Date Expiration Date V isits Requested Visits Authorized [id number] Authorized 07/23/2022 11/13/2099 999 99 Encounter Details Date Type Department Care Team (Latest Contact Info) Description 01/20/2024 2:15 PM EST Hem/Onc Treatment Hematology/Oncolog y Treatment, [place] [address] [place] [address] Ritu, Chair 5 Hem Onc [address] [place] [address] Multiple myeloma not having achieved remission (HCC)*; [...] 30 Tab 0 12/25/2018 Active nystatin (NYSTOP) 205194 UNIT/GM powder Apply topically to affected area [...] hospital for 2 days from 01/14-01/16 at [facility] for SOB -- increased lasix to 40 [...] Description 03/22/2024 12:10 PM EDT Laboratory Laboratory [facility] Ritu [place] [address] [address] [place] [phone] Ritu, Lab [place] [address] [place] [address] 03/22/2024 1:00 PM EDT Hem/Onc Treatment Hematology/Oncology Treatment, [place] [address] [facility] [place] [phone] Ritu, Chair 10 Hem Onc [place] [address] [place] [address] 03/30/2024 1:00 PM EDT Laboratory Laboratory [facility] Ritu [place] [address] [place] [place] [phone] [place] [facility] [address] [facility] [place] [address] 03/30/2024 2:15 PM EDT Office Visit Hematology/Oncology [facility] [place] 200 [facility] [place] [address] Jorge Allen MD 200 [facility] [place] [address] 03/30/2024 2:45 PM EDT Hem[facility] [phone] Health Maintenance Due Date Last Done Comments [...] this encounter Medical Devices Implanted Type Area Grain Operations Manager Device Identifier Shelf Expiration Date Model / Serial / Lot Screw Elbow Humeral Total - [id number] Implanted:Qty: 1 on 12/23/2018 by Gautam Jasso MD at [facility] Right: Upper Arm [employer] 09/13/20278400-090 - / / [id number] Deisi Nexel Total Elbow Implanted:Qty: 1 on 12/23/2018 by Gautam Jasso MD at [place] [facility] [place] Right: Upper Arm 04/13/2023-095 -00 / / [id number] Cement Antibiotic Bone - [id number] Implanted:Qty: 1 on 12/23/2018 by Gautam Jasso MD at OR [facility] Right: Upper Arm RENY : ORTHOPAEDICS 05/13/2020 6197-9-010 / / [id number] Cement Antibiotic Bone - [id number] Implanted:Qty: 1 on 12/23/2018 by Gautam Jasso MD at OR [facility] Right: Upper Arm RENY : ORTHOPAEDICS 05/13/2020 6197-9-010 / / [id number] Stem Compr Srs Mod [id number] - [id number] Implanted:Qty: 1 on 12/23/2018 by Gautam Jasso MD at OR [facility] Right: Upper Arm BIOMET : TRAUMA 01/28/2027 [id number] / / [id number] Deisi Nexel Total Elbow Ulnar Component Implanted:Qty: 1 on 12/23/2018 by Gautam Jasso MD at OR [facility] Right: Upper Arm 07/14/202500-025 / / [id number] Comprehensive Srs/Nexel Distal Body Implanted:Qty: 1 on 12/23/2018 by Gautam Jasso MD at OR [facility] Right: Upper Arm 03/03/2028 [id number] / / [id number] Valve Ricky 3 Ultra 26mm - [id number] Implanted:Qty: 1 on 05/27/2022 by Jesús Weber MD at [facility] [employer] [id number] 03/17/2023 [id number] / / Port Implant W/8f Poly Cath - [id number] Implanted:Qty: 1 on 12/29/2022 by Sudhir Lovett DO at OR [facility] Right: Chest CR BARD : PERIPHERAL VASCULAR [id number] 02/12/2024 [id number] / / [id number] documented as of this encounter Visit Diagnoses [...] 500 mL/hr Daratumumab-hyaluronida se-fihj (Darzalex Faspro) 1800 mg-79080 units/ 15 ml subcut inj 15 mL, [...] Documents on File Type Date Recorded Patient Choreography Director Expl anation Power of Consulting Intern 12/12/2018 8:46 AM Vipin viveros Power of Consulting Intern Power of Consulting Intern 12/12/2018 8:45 AM Zuleyma ferguson Power of Consulting Intern Latest Code Status on File Code [...] the patient have Health Care Power of Consulting Intern? Yes, not currently available Full Code 11/21/2018 8:53 AM 11/21/2018 2:27 PM This or bull reflects the patients wishes and were consensually agreed upon. Care Teams Log Marker Relationship Specialty Start Date End Date Kulwinder Byers MD [address] [place] [address] PCP - General 06/28/03 documented as of this encounter
--- OUTSIDE RECORDS SUMMARY | 2024-03-19 06:59 | External Medical Summary | Summary of Care ---
Author Name Unknown Organization [facility] Address [address] [facility] [place] [address] Phone [phone] Care Team Providers Care Religious Ritual Slaughterer Name Role Phone Kulwinder Byers MD Primary Care Provider [phone] Reason for Visit * Reason Comments Chemotherapy Cytoxan * Episode Based Medications (Routine) - Authorized Specialty Diagnoses / Procedures Referred By Contac t Referred To Contact Diagnoses Multiple myeloma not having achieved remission (HCC) Procedures [place] DARATUMUMAB, HYALURONIDASE [place] CYCLOPHOSPHAMIDE 100 MG INJ PA INJ, CYCLOPHOSPHAMIDE, NOS Jorge Allen MD [address] [place] [address] Anc Hem/Onc [address] [facility] DEPT CLOSED - 09/27/23 [facility] [place] [address] Referral ID Status Reason Start Date Expiration Date V isits Requested Visits Authorized [id number] Authorized 07/23/2022 11/13/2099 999 99 Encounter Details Date Type Department Care Team (Latest Contact Info) Description 01/13/2024 2:15 PM EST Hem/Onc Treatment Hematology/Oncology Treatment, [place] [address] [place] [address] Ritu, [...] 30 Tab 0 12/25/2018 Active nystatin (NYSTOP) 694228 UNIT/GM powder Apply topically to affected area [...] Description 03/22/2024 12:10 PM EDT Laboratory Laboratory [facility] [place] [address] [facility] [place] [phone] Ritu, Lab [facility] [address] [place] [address] 03/22/2024 1:00 PM EDT Hem/Onc Treatment Hematology/Oncology Treatment, [place] [address] [place] [phone] Ritu, Chair 10 Hem Onc [facility] [address] [facility] [place] [address] 03/30/2024 1:00 PM EDT Laboratory Laboratory [facility] [place] [address] [facility] [place] [address] Ritu [facility] [address] [facility] [place] [address] 03/30/2024 2:15 PM EDT Office Visit Hematology/Oncology [facility] Ritu [place] [address] [facility] [place] [phone] Jorge Allen MD 200 [place] [address] 03/30/2024 2:45 PM EDT Hem/Onc Treatment [facility], [place] [facility] [phone] Health Maintenance Due Date Last Done Comments [...] this encounter Medical Devices Implanted Type Area Heel Finisher Device Identifier Shelf Expiration Date Model / Serial / Lot Screw Elbow Humeral Total - [id number] Implanted:Qty: 1 on 12/23/2018 by Gautam Jasso MD at [place] [facility] Right: Upper Arm [employer] 09/13/2027-0 - / / [id number] Deisi Nexel Total Elbow Implanted:Qty: 1 on 12/23/2018 by Gautam Jasso MD at [place] [facility] Right: Upper Arm 04/13/2023 / / [id number] Cement Antibiotic Bone - [id number] Implanted:Qty: 1 on 12/23/2018 by Gautam Jasso MD at [place] [facility] Right: Upper Arm RENY : ORTHOPAEDICS 05/13/2020 6197-9-010 / / [id number] Cement Antibiotic Bone - [id number] Implanted:Qty: 1 on 12/23/2018 by Gautam Jasso MD at [place] [facility] Right: Upper Arm RENY : ORTHOPAEDICS 05/13/2020 6197-9-010 / / [id number] Stem Compr Srs Mod [id number] - [id number] Implanted:Qty: 1 on 12/23/2018 by Gautam Jasso MD at [place] [facility] Right: Upper Arm BIOMET : TRAUMA 01/28/2027 [id number] / / [id number] Deisi Nexel Total Elbow Ulnar Component Implanted:Qty: 1 on 12/23/2018 by Gautam Jasso MD at [place] [facility] Right: Upper Arm 07/14/202500-025 -07 / / [id number] Comprehensive Srs/Nexel Distal Body Implanted:Qty: 1 on 12/23/2018 by Gautam Jasso MD at [place] [facility] Right: Upper Arm 03/03/2028 [id number] / / [id number] Valve Ricky 3 Ultra 26mm - [id number] Implanted:Qty: 1 on 05/27/2022 by Jesús Weber MD at [facility] [employer] [id number] 03/17/2023 [id number] / / Port Implant W/8f Poly Cath - [id number] Implanted:Qty: 1 on 12/29/2022 by Sudhir Lovett DO at OR [facility] Right: Chest CR BARD : PERIPHERAL VASCULAR [id number] 02/12/2024 [id number] / / [id number] documented as of this encounter Visit Diagnoses [...] Documents on File Type Date Recorded Patient Wrapper Sorter Expl anation Power of Menswear Salesperson 12/12/2018 8:46 AM Healt hcare Power of Menswear Salesperson Power of Menswear Salesperson 12/12/2018 8:45 AM Abisailayla marty Power of Menswear Salesperson Latest Code Status on File Code [...] the patient have Health Care Power of Menswear Salesperson? Yes, not currently available Full Code 11/21/2018 8:53 AM 11/21/2018 2:27 PM This or bull reflects the patients wishes and were consensually agreed upon. Care Teams Religious Ritual Slaughterer Relationship Specialty Start Date End Date Kulwinder Byers MD [address] [address] PCP - General 06/28/03 documented as of this encounter
--- OUTSIDE RECORDS SUMMARY | 2024-03-19 06:59 | External Medical Summary | Summary of Care ---
Author Name Unknown Organization [facility] Address [address] [facility] [place] [address] Phone [phone] Care Team Providers Care Campus Administrative Assistant Name Role Phone Kulwinder Byers MD Primary Care Provider Reason for Visit * Reason Comments Chemotherapy Cytoxan/Darzalex Fas pro * Episode Based Medications (Routine) - Authorized Specialty Diagnoses / Procedures Referred By Contac t Referred To Contact Diagnoses Multiple myeloma not having achieved remission (HCC) Procedures AL DARATUMUMAB, HYALURONIDASE AL CYCLOPHOSPHAMIDE 100 MG INJ AL INJ, CYCLOPHOSPHAMIDE, NOS Jorge Allen MD [address] [place], [place] [address] Anc Hem/Onc [facility] DEPT CLOSED - 09/27/23 [address] [place] [address] Referral ID Status Reason Start Date Expiration Date V isits Requested Visits Authorized [id number] Authorized 07/23/2022 11/13/2099 999 99 Encounter Details Date Type Department Care Team (Latest Contact Info) Description 01/20/2024 2:15 PM EST Hem/Onc Treatment Hematology/Oncolog y Treatment, [place] [address] [place] [address] Ritu, Chair 5 Hem Onc Scenery [address] [place] [address] Multiple myeloma not having achieved remission (HCC)*; [...] 30 Tab 0 12/25/2018 Active nystatin (NYSTOP) 438914 UNIT/GM powder Apply topically to affected area [...] hospital for 2 days from 01/14-01/16 at [facility] for SOB -- increased [...] Description 03/22/2024 12:10 PM EDT Laboratory Laboratory [facility] Ritu [place] [address] [address] [place] [phone] Ritu, Lab [place] [address] [place] [address] 03/22/2024 1:00 PM EDT Hem/Onc Treatment Hematology/Oncology Treatment, [place] [address] [facility] [place] [phone] Ritu, Chair 10 Hem Onc [place] [address] [address] [place] [address] 03/30/2024 1:00 PM EDT Laboratory Laboratory [facility] Ritu [place] [address] [address] [place] [phone] Matt Chaney [facility] [address] [facility] [place] [address] 03/30/2024 2:15 PM EDT Office Visit Hematology/Oncology [facility] [place] [address] [place] [address] Jorge Allen MD [address] [place] [address] 03/30/2024 2:45 PM EDT [facility] [phone] Health Maintenance Due Date Last Done Comments [...] this encounter Medical Devices Implanted Type Area Billiard Table Assembler Device Identifier Shelf Expiration Date Model / Serial / Lot Screw Elbow Humeral Total - [id number] Implanted:Qty: 1 on 12/23/2018 by Gautam Jasso MD at [facility] Right: Upper Arm [employer] 09/13/20278400-090 - / / [id number] Deisi Nexel Total Elbow Implanted:Qty: 1 on 12/23/2018 by Gautam Jasso MD at OR [facility] Right: Upper Arm 04/13/2023-095 -00 / / [id number] Cement Antibiotic Bone - [id number] Implanted:Qty: 1 on 12/23/2018 by Gautam Jasso MD at OR [facility] Right: Upper Arm RENY : ORTHOPAEDICS 05/13/2020 6197-9-010 / / [id number] Cement Antibiotic Bone - [id number] Implanted:Qty: 1 on 12/23/2018 by Gautam Jasso MD at OR [facility] Right: Upper Arm RENY : ORTHOPAEDICS 05/13/2020 6197-9-010 / / [id number] Stem Compr Srs Mod [id number] - [id number] Implanted:Qty: 1 on 12/23/2018 by Gautam Jasso MD at OR [facility] Right: Upper Arm BIOMET : TRAUMA 01/28/2027 [id number] / / [id number] Deisi Nexel Total Elbow Ulnar Component Implanted:Qty: 1 on 12/23/2018 by Gautam Jasso MD at OR [facility] Right: Upper Arm 07/14/202500-025 / / [id number] Comprehensive Srs/Nexel Distal Body Implanted:Qty: 1 on 12/23/2018 by Gautam Jasso MD at OR [facility] Right: Upper Arm 03/03/2028 [id number] / / [id number] Valve Ricky 3 Ultra 26mm - [id number] Implanted:Qty: 1 on 05/27/2022 by Jesús Weber MD at [facility] [employer] [id number] 03/17/2023 [id number] / / Port Implant W/8f Poly Cath - [id number] Implanted:Qty: 1 on 12/29/2022 by Sudhir Lovett DO at OR [facility] Right: Chest CR BARD : PERIPHERAL VASCULAR [id number] 02/12/2024 [id number] / / [id number] documented as of this encounter Visit Diagnoses [...] 500 mL/hr Daratumumab-hyaluronida se-fihj (Darzalex Faspro) 1800 mg-00473 units/ 15 ml subcut inj 15 mL, [...] Documents on File Type Date Recorded Patient Production Packager Expl anation Power of Preparer Samples And Repairs 12/12/2018 8:46 AM Vipin viveros Power of Preparer Samples And Repairs Power of Preparer Samples And Repairs 12/12/2018 8:45 AM Zuleyma ferguson Power of Preparer Samples And Repairs Latest Code Status on File Code Status [...] the patient have Health Care Power of Preparer Samples And Repairs? Yes, not currently available Full Code 11/21/2018 8:53 AM 11/21/2018 2:27 PM This or bull reflects the patients wishes and were consensually agreed upon. Care Teams Campus Administrative Assistant Relationship Specialty Start Date End Date Kulwinder Byers MD [address] [place] [address] PCP - General 06/28/03 documented as of this encounter
--- OUTSIDE RECORDS SUMMARY | 2024-03-19 07:00 | External Medical Summary | Summary of Care ---
Author Name Unknown Organization [facility] Address [address] [facility] [place] [address] Phone [phone] Care Team Providers Care Bottoming Room Inspector Name Role Phone Kulwinder Byers MD Primary Care Provider [phone] Reason for Visit * Reason Comments Chemotherapy [id number] Cytoxan IV Therapy Privigen * Episode Based Medications (Routine) - Authorized Specialty Diagnoses / Procedures Referred By Contac t Referred To Contact Diagnoses Hypogammaglobulinemia (HCC) Multiple myeloma not having achieved remission (HCC) Procedures TN INJ IVIG PRIVIGEN 500 MG Jorge Allen MD [address] [place], [place] [address] Anc Hem/Onc [facility] DEPT CLOSED - 09/27/[address] [place] [address] [address] Referral ID Status Reason Start Date Expiration Date V isits Requested Visits Authorized [id number] Authorized 10/04/2023 11/13/2099 999 999 Encounter Details Date Type Department Care Team (Latest Contact Info) Description 02/03/2024 12:00 PM EDT Hem/Onc Treatment Hematology/Oncolog y Treatment, [place] [address] [place] [address] Ritu, Chair 5 Hem Onc Scenery [address] [place] [address] Multiple myeloma not having achieved remission (HCC)*; Hypogammaglobulinemia (HCC); Encounter for antineoplastic chemotherapy Allergies Active Allergy Reactions Criticality Noted Date Comments Adhesive Tape 05/28/2003 documented as of this encounter (statuses as of 03/15/2024) Medications Medication Sig Dispensed Refills Start Date [...] 30 Tab 0 12/25/2018 Active nystatin (NYSTOP) 108340 UNIT/GM powder Apply topically to affected area [...] (HCC) Take 1 Tablet by mouth every 8 hours as needed for Nausea. 20 Tablet 1 01/27/2024 Active Lidocaine-Prilocai ne 2.5-2.5 % External Cream (Emla)Indications: Multiple myeloma not having achieved remission (HCC) APPLY TO SKIN OVER MEDIPORT & COVER 1HR PRIOR TO ACCESSING. 30 g 1 01/27/2024 Active Metoprolol Tartrate 25 MG Oral Tablet (Lopressor) Take 1 Tablet by mouth in the morning and 1 Tablet before bedtime. 0 Active oxyCODONE HCl 5 MG Oral Tablet (Oxy IR)Indications:Mul tiple myeloma not having achieved remission (HCC),Cancer related pain Take 1 Tablet by mouth every 6 hours as needed for Pain, Breakthrough. 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 Aortic valve stenosis 2021 documented as of this encounter (statuses as of 03/15/2024) Social History Tobacco Use Types Packs/Day Years [...] Sign Reading Time Taken Comments Blood Pressure 112/61 02/03/2024 12:10 PM EDT Pulse 104 02/03/2024 12:10 PM EDT Temperature 36.9 C (98.4 F) 02/03/2024 12:10 PM E DT Respiratory Rate 20 02/03/2024 12:10 PM EDT Oxygen Saturation 94% 02/03/2024 12:10 PM EDT Inhaled Oxygen Concentration - - Weight 111.6 kg (246 lb) 02/03/2024 12:10 PM EDT Height - - Body Mass Index 49.59 12/28/2023 10:14 AM EST documented in this [...] Nursing Notes * Aide Browning RN - 02/03/2024 3:30 PM EDT Goals: Patient will remain free from injury. Possible barriers to meeting goals: benadryl pretreat may cause drowsiness, use of wheelchair in clinic Stability of the patient: Moderately unstable - medium risk of patient condition declining or worsening Summary regarding today's goals: Met: Pt remained free of injury during treatment. Patient tolerated treatment well and was discharged in stable condition. Coverage by Gopi Dunn LPN. * Aide Browning RN - 02/03/2024 12:40 PM EDT Chair 6 Chemotherapy/Immunotherapy agents: Cytoxan Consent for chemotherapy drug treatment complete, dated, and signed? yes, date - 11/11/22 Treatment lab parameters met? Yes Has treatment weight changed > than 10%? Yes - No Treatment preauthorized? Yes VITALS Filed Vitals: 02/03/24 1210 BP: 112/61 Pulse: 104 Resp: 20 Temp: 36.9 C (98.4 F) TempSrc: Tympanic SpO2: 94% Weight: 111.6 kg (246 lb) Urine protein: N/A Patient education completed for [...] side effects during treatment. PRE-TREATMENT ASSESSMENT: NEURO: fatigue:rests as needed CV/RESP: denies symptoms GI/: denies symptoms OTHER: denies any additional symptoms PAIN: 0 Safety and Risk for Injury Patient will remain free from injury. Ensure appropriate safety devices are available. Provide and maintain safe environment. VAD accessed without difficulty, no blood return noted however port studies were done previously, flushed with NSS and fluids infusing. documented in this encounter Plan of Treatment Upcoming Encounters Date Type Department Care Team (Late st Contact Info) Description 03/22/2024 12:10 PM EDT Laboratory Laboratory [facility] [place] [address] [place], [place] [phone] Ritu, Lab Scenery 200 [facility] [place], [place] [address] 03/22/2024 1:00 PM EDT [facility] 200 [facility], [place] [phone] Ritu, Chair 10 Hem Onc [facility] 200 [facility] [place], [place] [address] 03/30/2024 1:00 PM EDT Laboratory Laboratory [facility] [place] 200 [facility] [place], [place] [phone] Ritu, Lab [facility] 200 [facility] [place], [place] [address] 03/30/2024 2:15 PM EDT Office Visit Hematology/Oncology [facility] [place] 200 [facility] [place], [place] [phone] Jorge Allen MD [address] [facility] [place], [place] [address] 03/30/2024 2:45 PM EDT Hem[facility] 200 [facility], [place] [phone] Health Maintenance Due Date Last Done Comments [...] this encounter Medical Devices Implanted Type Area Zone Maintenance Technician Device Identifier Shelf Expiration Date Model / Serial / Lot Screw Elbow Humeral Total - [id number] Implanted:Qty: 1 on 12/23/2018 by Gautam Jasso MD at OR [facility] Right: Upper Arm [employer] 09/13/202700-0 - / / [id number] Deisi Nexel Total Elbow Implanted:Qty: 1 on 12/23/2018 by Gautam Jasso MD at OR [facility] Right: Upper Arm 04/13/2023-095 - / / [id number] Cement Antibiotic Bone - [id number] Implanted:Qty: 1 on 12/23/2018 by Gautam Jasso MD at OR [facility] Right: Upper Arm RENY : ORTHOPAEDICS 05/13/2020 6197-9-010 / / [id number] Cement Antibiotic Bone - [id number] Implanted:Qty: 1 on 12/23/2018 by Gautam Jasso MD at OR [facility] Right: Upper Arm RENY : ORTHOPAEDICS 05/13/2020 6197-9-010 / / [id number] Stem Compr Srs Mod [id number] - [id number] Implanted:Qty: 1 on 12/23/2018 by Gautam Jasso MD at OR [facility] Right: Upper Arm BIOMET : TRAUMA 01/28/2027 [id number] / / [id number] Deisi Nexel Total Elbow Ulnar Component Implanted:Qty: 1 on 12/23/2018 by Gautam Jasso MD at OR [facility] Right: Upper Arm 07/14/202500-025 -07 / / [id number] Comprehensive Srs/Nexel Distal Body Implanted:Qty: 1 on 12/23/2018 by Gautam Jasso MD at OR [facility] Right: Upper Arm 03/03/2028 [id number] / / [id number] Valve Ricky 3 Ultra 26mm - [id number] Implanted:Qty: 1 on 05/27/2022 by Jseús Weber MD at [facility] [employer] [id number] 03/17/2023 [id number] / / Port Implant W/8f Poly Cath - [id number] Implanted:Qty: 1 on 12/29/2022 by Sudhir Lovett DO at OR [facility] Right: Chest CR BARD : PERIPHERAL VASCULAR [id number] 02/12/2024 [id number] / / [id number] documented as of this encounter Visit Diagnoses [...] previous infusion reaction with IVIG, Starting on Tue02/03/24 at 1330, Until Tue02/03/24 at 1933, Maximum of 4 grams (4000 mg) per day. Given 02/03/2024 12:32 PM EDT 650 mg cycloPHOSphamide (Cytoxan) 620 mg in NSS 250 mL infusion 620 mg (rounded from 621 mg = 300 mg/m2 2.07 m2 Treatment Plan BSA from Recorded weight), IV Piggyback, at 500 mL/hr, Cyclophosphamide doses over 1g should be in 500 mL. May extend infusion to 1 hour if not tolerated., ONCE, 1 dose, On Tue02/03/24 at 1300 Start Infusion 02/03/2024 12:48 PM EDT 620 mg 500 mL/hr diphenhydrAMINE (Benadryl) cap 25 mg 25 mg, Oral, ONCE PRN If previous infusion reaction with IVIG, Starting on Tue02/03/24 at 1330, Until Tue02/03/24 at 1933 Given 02/03/2024 12:33 PM EDT 25 mg hEParin 100 UNIT/ML Lock Flush inj 500 Units 500 Units (5 mL), IV Lock, PRN Other, IV Flush, Starting on Tue02/03/24 at 1223, Until Tue02/03/24 at 1933, For 24 hours, Do not flush if lock, PICC, or central line not in place; IV infusing or unable to flush. Given 02/03/2024 3:13 PM EDT 500 Units Immune Globulin Human- IVIG 10% (Privigen) IV 20 g 20 g, IV Piggyback, ONCE, 1 dose, On Tue02/03/24 at 1300, Total dose = 30 gm Dispensed as [...] Infusion duration = 1.7 hours Start Infusion 02/03/2024 2:36 PM EDT 20 g 335 mL/hr Immune Globulin Human-IVIG 10% (Privigen) IV 10 g 10 g, IV Piggyback, ONCE, 1 dose, On Tue02/03/24 at 1300, Total dose = 30 gm Dispensed as [...] Infusion duration = 1.7 hours Rate Change 02/03/2024 2:30 PM EDT 335 mL/hr Rate Change 02/03/2024 2:15 PM EDT 167 mL/hr Rate Change 02/03/2024 1:55 PM EDT 84 mL/hr NSS infusion 500 mL, Intravenous, at 50 mL/hr, CONTINUOUS, Starting on Tue02/03/24 at 1330, Until Tue02/03/24 at 1933 Start Infusion 02/03/2024 12:15 PM EDT 500 mL 50 mL/hr ondansetron (Zofran) tab 8 mg 8 mg, Oral, ONCE, On Tue02/03/24 at 1300, For 1 dose Given 02/03/2024 12:33 PM EDT 8 mg sodium chloride 0.9 % flush central line 10 mL 10 mL, IV Push, PRN Other, IV Flush, Starting on Tue02/03/24 at 1223, Until Tue02/03/24 at 1933, For 24 hours, Do not flush if lock, PICC, or central line not in place; IV infusing or unable to flush. Given 02/03/2024 3:13 PM EDT 10 mL documented in this encounter Advance Directives Documents on File Type Date Recorded Patient Able Seaman Expl anation Power of Wholesaler 12/12/2018 8:46 AM Vipin viveros Power of Wholesaler Power of Wholesaler 12/12/2018 8:45 AM Zuleyma ferguson Power of Wholesaler Latest Code Status on File Code Status [...] the patient have Health Care Power of Wholesaler? Yes, not currently available Full Code 11/21/2018 8:53 AM 11/21/2018 2:27 PM This or bull reflects the patients wishes and were consensually agreed upon. Care Teams Bottoming Room Inspector Relationship Specialty Start Date End Date Guillard, Kulwinder, MD [address], [place] [address] PCP - General 06/28/03 documented as of this encounter
--- OUTSIDE RECORDS SUMMARY | 2024-03-19 07:00 | External Medical Summary | Summary of Care ---
Author Name Unknown Organization [facility] Address [address] [facility] [place] [address] Phone [phone] Care Team Providers Care Manager Of Selection And Assessment Name Role Phone Kulwinder Byers MD Primary Care Provider Reason for Visit * Reason Comments Chemotherapy Cytoxan. * Episode Based Medications (Routine) - Authorized Specialty Diagnoses / Procedures Referred By Contac t Referred To Contact Diagnoses Multiple myeloma not having achieved remission (HCC) Procedures NC DARATUMUMAB, HYALURONIDASE NC CYCLOPHOSPHAMIDE 100 MG INJ [place] INJ, CYCLOPHOSPHAMIDE, NOS Jorge Allen MD [address] [place] [address] Anc Hem/Onc Scenery Ritu DEPT CLOSED - 09/27/23 [address] [place] [address] Referral ID Status Reason Start Date Expiration Date V isits Requested Visits Authorized [id number] Authorized 07/23/2022 11/13/2099 999 99 Encounter Details Date Type Department Care Team (Latest Contact Info) Description 01/27/2024 2:15 PM EDT Hem/Onc Treatment Hematology/Oncolog y Treatment, [place] [address] [place] [address] Ritu, Chair 9 Hem Onc Scenery [address] [place] [address] Multiple myeloma not having achieved remission (HCC)*; [...] 30 Tab 0 12/25/2018 Active nystatin (NYSTOP) 720389 UNIT/GM powder Apply topically to affected area [...] [place] [address] [place] [phone] Ritu Lab Scenery [address] [place] [address] 03/22/2024 1:00 PM EDT [facility] 200 [facility] [place] [address] Ritu, Chair 10 Hem Onc [address] [place] [address] 03/30/2024 1:00 PM EDT Laboratory Laboratory [facility] [address] [place] [phone] Ritu Lab [address] [place], [place] [address] 03/30/2024 2:15 PM EDT Office Visit Hematology/Oncology [address] [place] [phone] Jorge Allen MD [address] [place], [place] [address] [address] 03/30/2024 2:45 PM EDT Hem/Onc Treatment Hematology/Oncology [address] [phone] Health Maintenance Due Date Last Done Comments [...] this encounter Medical Devices Implanted Type Area Systems Qa Analyst Device Identifier Shelf Expiration Date Model / Serial / Lot Screw Elbow Humeral Total - [id number] Implanted:Qty: 1 on 12/23/2018 by Gautam Jasso MD at [place] [facility] Right: Upper Arm [employer] 09/13/2027 / / [id number] Deisi Nexel Total Elbow Implanted:Qty: 1 on 12/23/2018 by Gautam Jasso MD at [place] [facility] Right: Upper Arm 04/13/2023 / / [id number] Cement Antibiotic Bone - [id number] Implanted:Qty: 1 on 12/23/2018 by Gautam Jasso MD at [place] [facility] Right: Upper Arm RENY : ORTHOPAEDICS 05/13/2020 6197-9-010 / / [id number] Cement Antibiotic Bone - [id number] Implanted:Qty: 1 on 12/23/2018 by Gautam Jasso MD at [place] [facility] Right: Upper Arm RENY : ORTHOPAEDICS 05/13/2020 6197-9-010 / / [id number] Stem Compr Srs Mod [id number] - [id number] Implanted:Qty: 1 on 12/23/2018 by Gautam Jasso MD at [place] [facility] Right: Upper Arm BIOMET : TRAUMA 01/28/2027669757 / / [id number] Deisi Nexel Total Elbow Ulnar Component Implanted:Qty: 1 on 12/23/2018 by Gautam Jasso MD at [place] [facility] Right: Upper Arm 07/14/202500-025 -07 / / [id number] Comprehensive Srs/Nexel Distal Body Implanted:Qty: 1 on 12/23/2018 by Gautam Jasso MD at [place] [facility] Right: Upper Arm 03/03/2028 [id number] / / [id number] Valve Ricky 3 Ultra 26mm - [id number] Implanted:Qty: 1 on 05/27/2022 by Jesús Weber MD at [facility] [employer] [id number] 03/17/2023 [id number] / / Port Implant W/8f Poly Cath - [id number] Implanted:Qty: 1 on 12/29/2022 by Sudhir Lovett DO at OR [facility] Right: Chest CR BARD : PERIPHERAL VASCULAR [id number] 02/12/2024 [id number] / / [id number] documented as of this encounter Visit Diagnoses [...] Documents on File Type Date Recorded Patient Wheat Buyer Expl anation Power of Release Manager 12/12/2018 8:46 AM Vipin viveros Power of Release Manager Power of Release Manager 12/12/2018 8:45 AM Zuleyma ferguson Power of Release Manager Latest Code Status on File Code [...] the patient have Health Care Power of Release Manager? Yes, not currently available Full Code 11/21/2018 8:53 AM 11/21/2018 2:27 PM This or bull reflects the patients wishes and were consensually agreed upon. Care Teams Manager Of Selection And Assessment Relationship Specialty Start Date End Date Kulwinder Byers MD [address] [place] [address] PCP - General 06/28/03 documented as of this encounter
--- OUTSIDE RECORDS SUMMARY | 2024-03-19 07:00 | External Medical Summary | Summary of Care ---
Author Name Unknown Organization [facility] [address] [facility] [place] [address] Phone [phone] Care Team Providers Care Poultry Hanger Name Role Phone Kulwinder Byers MD Primary Care Provider [phone] Reason for Visit * Reason Comments Chemotherapy [id number] Cytoxan IV Therapy Privigen * Episode Based Medications (Routine) - Authorized Specialty Diagnoses / Procedures Referred By Contac t Referred To Contact Diagnoses Hypogammaglobulinemia (HCC) Multiple myeloma not having achieved remission (HCC) Procedures SD INJ IVIG PRIVIGEN 500 MG Jorge Allen MD [address] [place], [place] [address] Anc Hem/Onc [facility] DEPT CLOSED - 09/27/[address] [place] [address] Referral ID Status Reason Start Date Expiration Date V isits Requested Visits Authorized [id number] Authorized 10/04/2023 11/13/2099 999 999 Encounter Details Date Type Department Care Team (Latest Contact Info) Description 02/03/2024 12:00 PM EDT Hem/Onc Treatment Hematology/Oncolog y Treatment, [place] [address] [place] [address] Ritu, Chair 5 Hem Onc [address] [place] [address] Multiple myeloma not having achieved remission (HCC)*; [...] 30 Tab 0 12/25/2018 Active nystatin (NYSTOP) 298035 UNIT/GM powder Apply topically to affected area [...] 12:10 PM EDT Laboratory Laboratory [facility] [place] [address] [place], [place] [phone] Ritu, Lab Scenery 200 [facility] [place], [place] [address] 03/22/2024 1:00 PM EDT [facility] 200 [facility], [place] [phone] Ritu, Chair 10 Hem Onc [facility] 200 [facility] [place], [place] [address] 03/30/2024 1:00 PM EDT Laboratory Laboratory [facility] [place] 200 [facility] [place], [place] [phone] Ritu, Lab [facility] 200 [facility] [place], [place] [address] 03/30/2024 2:15 PM EDT Office Visit Hematology/Oncology [facility] [place] 200 [facility] [place], [place] [phone] Jorge Allen MD 200 [facility] [place], [place] [address] 03/30/2024 2:45 PM EDT Hem[facility] 200 [facility], [place] [phone] Health Maintenance Due Date Last Done Comments [...] this encounter Medical Devices Implanted Type Area Saddle Mechanic Device Identifier Shelf Expiration Date Model / Serial / Lot Screw Elbow Humeral Total - [id number] Implanted:Qty: 1 on 12/23/2018 by Gautam Jasso MD at OR [facility] Right: Upper Arm [employer] 09/13/202700-0 - / / [id number] Deisi Nexel Total Elbow Implanted:Qty: 1 on 12/23/2018 by Gautam Jasso MD at OR [facility] Right: Upper Arm 04/13/2023-095 - / / [id number] Cement Antibiotic Bone - [id number] Implanted:Qty: 1 on 12/23/2018 by Gautam Jasso MD at OR [facility] Right: Upper Arm RENY : ORTHOPAEDICS 05/13/2020 6197-9-010 / / [id number] Cement Antibiotic Bone - [id number] Implanted:Qty: 1 on 12/23/2018 by Gautam Jasso MD at OR [facility] Right: Upper Arm RENY : ORTHOPAEDICS 05/13/2020 6197-9-010 / / [id number] Stem Compr Srs Mod [id number] - [id number] Implanted:Qty: 1 on 12/23/2018 by Gautam Jasso MD at OR [facility] Right: Upper Arm BIOMET : TRAUMA 01/28/2027 [id number] / / [id number] Deisi Nexel Total Elbow Ulnar Component Implanted:Qty: 1 on 12/23/2018 by Gautam Jasso MD at OR [facility] Right: Upper Arm 07/14/202500-025 -07 / / [id number] Comprehensive Srs/Nexel Distal Body Implanted:Qty: 1 on 12/23/2018 by Gautam Jasso MD at OR [facility] Right: Upper Arm 03/03/2028 [id number] / / [id number] Valve Ricky 3 Ultra 26mm - [id number] Implanted:Qty: 1 on 05/27/2022 by Jesús Weber MD at CARDIAC LABS [facility] [employer] [id number] 03/17/2023 [id number] / / Port Implant W/8f Poly Cath - [id number] Implanted:Qty: 1 on 12/29/2022 by Sudhir Lovett DO at OR [facility] Right: Chest CR BARD : PERIPHERAL VASCULAR [id number] 02/12/2024 [id number] / / [id number] documented as of this encounter Visit Diagnoses [...] Documents on File Type Date Recorded Patient Hydroponics Grower Expl anation Power of Stockkeeper 12/12/2018 8:46 AM Vipin viveros Power of Stockkeeper Power of Stockkeeper 12/12/2018 8:45 AM Zuleyma ferguson Power of Stockkeeper Latest Code Status on File Code Status [...] the patient have Health Care Power of Stockkeeper? Yes, not currently available Full Code 11/21/2018 8:53 AM 11/21/2018 2:27 PM This or bull reflects the patients wishes and were consensually agreed upon. Care Teams Poultry Hanger Relationship Specialty Start Date End Date Guillard, Kulwinder, MD [address], [place] [address] PCP - General 06/28/03 documented as of this encounter
--- OUTSIDE RECORDS SUMMARY | 2024-03-19 07:00 | External Medical Summary | Summary of Care ---
Author Name Unknown Organization [facility] Address [address] [facility] [address] Phone [phone] Care Team Providers Care Wheel Cutter Name Role Phone Kulwinder Byers MD Primary [...] MD [address] [place], [place] [address] Anc Hem/Onc [facility] DEPT CLOSED - 09/27/[address] [place] [address] Referral ID Status Reason Start Date Expiration Date V isits Requested Visits Authorized [id number] Authorized 10/04/2023 11/13/2099 999 999 Encounter Details Date Type Department Care Team (Latest Contact Info) Description 02/03/2024 12:00 PM EDT Hem/Onc Treatment Hematology/Oncolog y Treatment, [place] [address] [place] [phone] Ritu, Chair 5 Hem Onc Scenery [address] [place] [address] Multiple myeloma not having achieved remission (HCC)*; [...] 30 Tab 0 12/25/2018 Active nystatin (NYSTOP) 376062 UNIT/GM powder Apply topically to affected area [...] 12:10 PM EDT Laboratory Laboratory [facility] [place] [address] [place], [place] [phone] Ritu, Lab Scenery 200 [facility] [place], [place] [address] 03/22/2024 1:00 PM EDT [facility] 200 [facility], [place] [phone] Ritu, Chair 10 Hem Onc [facility] 200 [facility] [place], [place] [address] 03/30/2024 1:00 PM EDT Laboratory Laboratory [facility] [place] 200 [facility] [place], [place] [phone] Ritu, Lab [facility] [place], [place] [address] 03/30/2024 2:15 PM EDT Office Visit Hematology/Oncology [facility] [place] 200 [facility] [place], [place] [phone] Jorge Allen MD 200 [facility] [place], [place] [address] 03/30/2024 2:45 PM EDT Hem[facility] 200 [facility], [place] [phone] Health Maintenance Due Date Last Done Comments [...] this encounter Medical Devices Implanted Type Area Gas Pumping Station Operator Device Identifier Shelf Expiration Date Model / Serial / Lot Screw Elbow Humeral Total - [id number] Implanted:Qty: 1 on 12/23/2018 by Gautam Jasso MD at [place] [facility] Right: Upper Arm [employer] 09/13/202700-0 - / / [id number] Deisi Nexel Total Elbow Implanted:Qty: 1 on 12/23/2018 by Gautam Jasso MD at OR [facility] Right: Upper Arm 04/13/2023-095 - / / [id number] Cement Antibiotic Bone - [id number] Implanted:Qty: 1 on 12/23/2018 by Gautam Jasso MD at OR [facility] Right: Upper Arm RENY : ORTHOPAEDICS 05/13/2020 6197-9-010 / / [id number] Cement Antibiotic Bone - [id number] Implanted:Qty: 1 on 12/23/2018 by Gautam Jasso MD at OR [facility] Right: Upper Arm RENY : ORTHOPAEDICS 05/13/2020 6197-9-010 / / [id number] Stem Compr Srs Mod [id number] - [id number] Implanted:Qty: 1 on 12/23/2018 by Gautam Jasso MD at OR [facility] Right: Upper Arm BIOMET : TRAUMA 01/28/2027 [id number] / / [id number] Deisi Nexel Total Elbow Ulnar Component Implanted:Qty: 1 on 12/23/2018 by Gautam Jasso MD at OR [facility] Right: Upper Arm 07/14/202500-025 -07 / / [id number] Comprehensive Srs/Nexel Distal Body Implanted:Qty: 1 on 12/23/2018 by Gautam Jasso MD at OR [facility] Right: Upper Arm 03/03/2028 [id number] / / [id number] Valve Ricky 3 Ultra 26mm - [id number] Implanted:Qty: 1 on 05/27/2022 by Jesús Weber MD at [facility]ARDIAC LABS [facility] [employer] [id number] 03/17/2023 [id number] / / Port Implant W/8f Poly Cath - [id number] Implanted:Qty: 1 on 12/29/2022 by Sudhir Lovett DO at OR [facility] Right: Chest CR BARD : PERIPHERAL VASCULAR [id number] 02/12/2024 [id number] / / [id number] documented as of this encounter Visit Diagnoses [...] Documents on File Type Date Recorded Patient Luncheonette Operator Expl anation Power of Data Center Consultant 12/12/2018 8:46 AM Vipin viveros Power of Data Center Consultant Power of Data Center Consultant 12/12/2018 8:45 AM Zuleyma ferguson Power of Data Center Consultant Latest Code Status on File Code [...] the patient have Health Care Power of Data Center Consultant? Yes, not currently available Full Code 11/21/2018 8:53 AM 11/21/2018 2:27 PM This or bull reflects the patients wishes and were consensually agreed upon. Care Teams Wheel Cutter Relationship Specialty Start Date End Date Guillard, Kulwinder, MD [address], [place] [address] PCP - General 06/28/03 documented as of this encounter
--- OUTSIDE RECORDS SUMMARY | 2024-03-19 07:00 | External Medical Summary | Summary of Care ---
Author Name Unknown Organization [facility] Address [address] [facility] [place] [address] Phone [phone] Care Team Providers Care Yoker Machine Operator Name Role Phone Kulwinder Byers [...] MD [address] [place], [place] [address] Anc Hem/Onc [facility] DEPT CLOSED - 09/27/[address] [place] [address] Referral ID Status Reason Start Date Expiration Date V isits Requested Visits Authorized [id number] Authorized 10/04/2023 11/13/2099 999 999 Encounter Details Date Type Department Care Team (Latest Contact Info) Description 02/03/2024 12:00 PM EDT Hem/Onc Treatment Hematology/Oncolog y Treatment, [place] [address] [place] [address] Ritu, Chair 5 Hem Onc Scenery [address] [place] [address] Multiple myeloma not having achieved remission (HCC)*; [...] 30 Tab 0 12/25/2018 Active nystatin (NYSTOP) 362607 UNIT/GM powder Apply topically to affected area [...] 12:10 PM EDT Laboratory Laboratory [facility] [place] [address] [place], [place] [phone] Ritu, Lab Scenery 200 [facility] [place], [place] [address] 03/22/2024 1:00 PM EDT [facility] 200 [facility], [place] [phone] Ritu, Chair 10 Hem Onc [facility] 200 [facility] [place], [place] [address] 03/30/2024 1:00 PM EDT Laboratory Laboratory [facility] [place] 200 [facility] [place], [place] [phone] Ritu, Lab [facility] [place], [place] [address] 03/30/2024 2:15 PM EDT Office Visit Hematology/Oncology [facility] [place] 200 [facility] [place], [place] [phone] Jorge Allen MD 200 [facility] [place], [place] [address] 03/30/2024 2:45 PM EDT Hem[facility]c [facility] 200 [facility], [place] [phone] Health Maintenance Due Date Last Done Comments [...] this encounter Medical Devices Implanted Type Area Rafter Cutting Machine Operator Device Identifier Shelf Expiration Date Model / Serial / Lot Screw Elbow Humeral Total - [id number] Implanted:Qty: 1 on 12/23/2018 by Gautam Jasso MD at OR [facility] Right: Upper Arm [employer] 09/13/202700-0 - / / [id number] Deisi Nexel Total Elbow Implanted:Qty: 1 on 12/23/2018 by Gautam Jasso MD at OR [facility] Right: Upper Arm 04/13/2023-095 - / / [id number] Cement Antibiotic Bone - [id number] Implanted:Qty: 1 on 12/23/2018 by Gautam Jasso MD at OR [facility] Right: Upper Arm RENY : ORTHOPAEDICS 05/13/2020 6197-9-010 / / [id number] Cement Antibiotic Bone - [id number] Implanted:Qty: 1 on 12/23/2018 by Gautam Jasso MD at OR [facility] Right: Upper Arm RENY : ORTHOPAEDICS 05/13/2020 6197-9-010 / / [id number] Stem Compr Srs Mod [id number] - [id number] Implanted:Qty: 1 on 12/23/2018 by Gautam Jasso MD at OR [facility] Right: Upper Arm BIOMET : TRAUMA 01/28/2027 [id number] / / [id number] Deisi Nexel Total Elbow Ulnar Component Implanted:Qty: 1 on 12/23/2018 by Gautam Jasso MD at OR [facility] Right: Upper Arm 07/14/202500-025 -07 / / [id number] Comprehensive Srs/Nexel Distal Body Implanted:Qty: 1 on 12/23/2018 by Gautam Jasso MD at OR [facility] Right: Upper Arm 03/03/2028 [id number] / / [id number] Valve Ricky 3 Ultra 26mm - [id number] Implanted:Qty: 1 on 05/27/2022 by Jesús Weber MD at CARDIAC LABS [facility] [employer] [id number] 03/17/2023 [id number] / / Port Implant W/8f Poly Cath - [id number] Implanted:Qty: 1 on 12/29/2022 by Sudhir Lovett DO at OR [facility] Right: Chest CR BARD : PERIPHERAL VASCULAR [id number] 02/12/2024 [id number] / / [id number] documented as of this encounter Visit Diagnoses [...] Documents on File Type Date Recorded Patient Catering Coordinator Expl anation Power of Multiple Cut Off Saw Operator 12/12/2018 8:46 AM Vipin viveros Power of Multiple Cut Off Saw Operator Power of Multiple Cut Off Saw Operator 12/12/2018 8:45 AM Zuleyma ferguson Power of Multiple Cut Off Saw Operator Latest Code Status on File Code [...] the patient have Health Care Power of Multiple Cut Off Saw Operator? Yes, not currently available Full Code 11/21/2018 8:53 AM 11/21/2018 2:27 PM This or bull reflects the patients wishes and were consensually agreed upon. Care Teams Yoker Machine Operator Relationship Specialty Start Date End Date Guillard, Kulwinder, MD [address], [place] [address] PCP - General 06/28/03 documented as of this encounter
--- OUTSIDE RECORDS SUMMARY | 2024-03-19 07:01 | External Medical Summary | Summary of Care ---
Author Name Unknown Organization [facility] Address [address] [facility] [place] [address] Phone [phone] Care Team Providers Care Metal Cutter Name Role Phone Kulwinder Byers MD Primary Care Provider Reason for Visit * Reason Comments Chemotherapy Cytoxan. * Episode Based Medications (Routine) - Authorized Specialty Diagnoses / Procedures Referred By Contac t Referred To Contact Diagnoses Multiple myeloma not having achieved remission (HCC) Procedures WA DARATUMUMAB, HYALURONIDASE WA CYCLOPHOSPHAMIDE 100 MG INJ [place] INJ, CYCLOPHOSPHAMIDE, NOS Jorge Allen MD [address] [place] [address] Anc Hem/Onc Scenery Ritu DEPT CLOSED - 09/27/23 [address] [place] [address] Referral ID Status Reason Start Date Expiration Date V isits Requested Visits Authorized [id number] Authorized 07/23/2022 11/13/2099 999 99 Encounter Details Date Type Department Care Team (Latest Contact Info) Description 02/10/2024 2:00 PM EDT Hem/Onc Treatment Hematology/Oncolog y Treatment, [place] [address] [place] [address] Ritu, Chair 9 Hem Onc [address] [place] [address] Multiple myeloma not having achieved remission (HCC)*; [...] 30 Tab 0 12/25/2018 Active nystatin (NYSTOP) 113356 UNIT/GM powder Apply topically to affected area [...] needed for Pain, Breakthrough. 60 Tablet 0 02/06/2024 Discontinue d(Refill) documented as of this encounter [...] Sign Reading Time Taken Comments Blood Pressure 118/79 02/10/2024 2:15 PM EDT Pulse 96 02/10/2024 2:15 PM EDT Temperature 36.7 C (98 F) 02/10/2024 2:15 PM EDT Respiratory Rate 18 02/10/2024 2:15 PM EDT Oxygen Saturation 92% 02/10/2024 2:15 PM EDT Inhaled Oxygen Concentration - - Weight - [...] Nursing Notes * Brenda Ashton RN - 02/10/2024 3:46 PM EDT Goals: Patient will remain free from injury. Possible barriers to meeting goals: Fall risk d/t ambulation with IV pole. Stability of the patient: Moderately unstable - medium risk of patient condition declining or worsening Summary regarding today's goals: Met: Patient remained free of injury. Patient tolerated infusion well. Discharged in stable condition. * Brenda Ashton RN - 02/10/2024 2:43 PM EDT Chair 1. Patient arrived for cytoxan with no acute complaints. Labs reviewed with Dr. Allen, platelets 93, per Dr. Allen ok to treat. VAD accessed. Chemotherapy/Immunotherapy agents: Cytoxan Consent for chemotherapy drug treatment complete, dated, and signed? yes, date - 11/11/22 Treatment lab parameters met? Yes Has treatment weight changed > than 10%? No Treatment preauthorized? Yes VITALS Filed Vitals: 02/10/24 1415 BP: 118/79 Pulse: 96 Resp: 18 Temp: 36.7 C (98 F) TempSrc: Tympanic SpO2: 92% Urine protein: N/A Patient education completed for [...] Description 03/22/2024 12:10 PM EDT Laboratory Laboratory [place] [address] [place] [phone] Ritu Lab Scenery [address] [place] [address] 03/22/2024 1:00 PM EDT Hem[facility] 200 [facility], [place] [address] Ritu, Chair 10 Hem Onc [address] [place], [place] [address] 03/30/2024 1:00 PM EDT Laboratory Laboratory [facility] [address] [place] [phone] Ritu, Lab [address] [facility] [place] [address] 03/30/2024 2:15 PM EDT Office Visit Hematology/Oncology [facility] [address] [place] [phone] Jorge Allen MD 200 [facility] [place] [address] 03/30/2024 2:45 PM EDT Hem/Onc Treatment Hematology/Oncology [address], [place] [phone] Health Maintenance Due Date Last Done Comments [...] this encounter Medical Devices Implanted Type Area Engineering Laboratory Technician Device Identifier Shelf Expiration Date Model / Serial / Lot Screw Elbow Humeral Total - [id number] Implanted:Qty: 1 on 12/23/2018 by Gautam Jasso [place] [facility] Right: Upper Arm [employer] 09/13/2027 / / [id number] Deisi Nexel Total Elbow Implanted:Qty: 1 on 12/23/2018 by Gautam Jasso MD [place] [facility] Right: Upper Arm 04/13/2023 / / [id number] Cement Antibiotic Bone - [id number] Implanted:Qty: 1 on 12/23/2018 by Gautam Jasso MD [place] [facility] Right: Upper Arm RENY : ORTHOPAEDICS 05/13/2020 6197-9-010 / / [id number] Cement Antibiotic Bone - [id number] Implanted:Qty: 1 on 12/23/2018 by Gautam Jasso MD [place] [facility] Right: Upper Arm RENY : ORTHOPAEDICS 05/13/2020 6197-9-010 / / [id number] Stem Compr Srs Mod [id number] - [id number] Implanted:Qty: 1 on 12/23/2018 by Gautam Jasso MD [place] [facility] Right: Upper Arm BIOMET : TRAUMA 01/28/2027 [id number] / / [id number] Deisi Nexel Total Elbow Ulnar Component Implanted:Qty: 1 on 12/23/2018 by Gautam Jasso MD [place] [facility] Right: Upper Arm 07/14/202500-025 - / / [id number] Comprehensive Srs/Nexel Distal Body Implanted:Qty: 1 on 12/23/2018 by Gautam Jasso MD [place] [facility] Right: Upper Arm 03/03/2028 [id number] / / [id number] Valve Ricky 3 Ultra 26mm - [id number] Implanted:Qty: 1 on 05/27/2022 by Jesús Weber MD [place] [facility] [employer] [id number] 03/17/2023 [id number] / / Port Implant W/8f Poly Cath - [id number] Implanted:Qty: 1 on 12/29/2022 by Sudhir Lovett DO at OR [facility] Right: Chest CR BARD : PERIPHERAL VASCULAR [id number] 02/12/2024 [id number] / / [id number] documented as of this encounter Visit Diagnoses [...] if not tolerated., ONCE, 1 dose, On Tue02/10/24 at 1500 Start Infusion 02/10/2024 2:58 PM EDT 620 mg 500 mL/hr hEParin 100 UNIT/ML Lock Flush inj 500 Units 500 Units (5 mL), IV Lock, PRN Other, IV Flush, Starting on Tue02/10/24 at 1424, Until Tue02/10/24 at 1947, For 24 hours, Do not flush if lock, PICC, or central line not in place; IV infusing or unable to flush. Given 02/10/2024 3:31 PM EDT 500 Units NSS infusion FOR HYDRATION Intravenous, at 50 mL/hr Administer over 10 Hours, ONCE, 1 dose, On Tue02/10/24 at 1500 Start Infusion 02/10/2024 2:20 PM EDT 500 mL 50 mL/hr ondansetron (Zofran) tab 8 mg 8 mg, Oral, ONCE, On Tue02/10/24 at 1500, For 1 dose Given 02/10/2024 2:37 PM EDT 8 mg sodium chloride 0.9 % flush central line 10 mL 10 mL, IV Push, PRN Other, IV Flush, Starting on Tue02/10/24 at 1424, Until Tue02/10/24 at 1947, For 24 hours, Do not flush if lock, PICC, or central line not in place; IV infusing or unable to flush. Given 02/10/2024 3:30 PM EDT 10 mL documented in this encounter Advance Directives Documents on File Type Date Recorded Patient Sole Seamer Expl anation Power of Card Game Operator 12/12/2018 8:46 AM Vipin viveros Power of Card Game Operator Power of Card Game Operator 12/12/2018 8:45 AM Zuleyma ferguson Power of Card Game Operator Latest Code Status on File Code [...] the patient have Health Care Power of Card Game Operator? Yes, not currently available Full Code 11/21/2018 8:53 AM 11/21/2018 2:27 PM This or bull reflects the patients wishes and were consensually agreed upon. Care Teams Metal Cutter Relationship Specialty Start Date End Date Kulwinder Byers MD [address] [place] [address] PCP - General 06/28/03 documented as of this encounter
--- OUTSIDE RECORDS SUMMARY | 2024-03-19 07:01 | External Medical Summary ---
Author Name Unknown Address Unknown Organization K01:[facility] - [address] [place] [address] Laboratory Report Ordering Provider Test Date Status WOOD CANTU 03/15/2024 11:22:13 Final Observation Date Value Abnormality Reference (Units ) Status IgG 03/15/2024 11:22:13 429 Below low normal 700 -1600 (mg/dL) Final IgA 03/15/2024 11:22:13 225 70-400 (mg /dL) Final IgM 03/15/2024 11:22:13 9 Below low normal 40- 230 (mg/dL) Final Performing Location [facility] - [address] [place] [address]
--- OUTSIDE RECORDS SUMMARY | 2024-03-19 07:01 | External Medical Summary ---
Author Name Unknown Address Unknown Organization K09:[facility] [place] [address] [place] [address] Laboratory Report Ordering Provider Test Date Status WOOD CANTU 03/15/2024 11:22:13 Final Observation Date Value Abnormality Reference (Units ) Status WBC, Total 03/15/2024 11:22:13 3.65 Below low normal 4. 00-10.80 (K/uL) Final RBC 03/15/2024 11:22:13 3.24 3.85-5.15 (M/uL) Final Hemoglobin 03/15/2024 11:22:13 9.7 Below low normal 12 .0-15.3 (g/dL) Final HCT 03/15/2024 11:22:13 30.0 Below low normal 36. 0-45.2 (%) Final MCV 03/15/2024 11:22:13 92.6 81.5-97.5 (fL) Final MCH 03/15/2024 11:22:13 29.9 27.0-34.0 (pg) Final MCHC 03/15/2024 11:22:13 32.3 32.0-36.0 (g/dL) Final RDW 03/15/2024 11:22:13 19.4 11.5-15.5 (%) Final Platelets 03/15/2024 11:22:13 73 Below low normal 140 -400 (K/uL) Final MPV 03/15/2024 11:22:13 Final No result - abnormal platele t distribution. Performing Location [facility] [place] [address]
--- OUTSIDE RECORDS SUMMARY | 2024-03-19 07:01 | External Medical Summary ---
Author Name Unknown Address Unknown Organization K09:[facility] [address] [place] [address] Laboratory Report Ordering Provider Test Date Status WOOD CANTU 03/15/2024 11:22:13 Final Observation Date Value Abnormality Reference (Units ) Status Nucleated erythrocytes/100 leukocytes [Ratio] in Blood by Automated count 03/15/2024 11:22:13 Final Acanthocytes [Presence] in Blood by Light microscopy 03/15/2024 11:22:13 Moderate Abnormal None Seen Final Elliptocytes [Presence] in Blood by Light microscopy 03/15/2024 11:22:13 Moderate Abnormal None Seen Final Schistocytes 03/15/2024 11:22:13 Few Abnormal None Seen Final Performing Location [facility] [address] [place] [address]
--- OUTSIDE RECORDS SUMMARY | 2024-03-19 07:01 | External Medical Summary | Summary of Care ---
Author Name Unknown Organization [facility] [address] [facility] [place] [address] Phone [phone] Care Team Providers Care General Farm Hand Name Role Phone Kulwinder Byers MD Primary Care Provider Reason for Visit * Reason Comments Chemotherapy [id number] Cytoxan IV Therapy Privigen * Episode Based Medications (Routine) - Authorized Specialty Diagnoses / Procedures Referred By Contac t Referred To Contact Diagnoses Hypogammaglobulinemia (HCC) Multiple myeloma not having achieved remission (HCC) Procedures MA INJ IVIG PRIVIGEN 500 MG Jorge Allen MD [address] [place], [place] [address] Anc Hem/Onc [facility] DEPT CLOSED - 09/27/[address] [place] [address] Referral ID Status Reason Start Date Expiration Date V isits Requested Visits Authorized [id number] Authorized 10/04/2023 11/13/2099 999 999 Encounter Details Date Type Department Care Team (Latest Contact Info) Description 02/03/2024 12:00 PM EDT Hem/Onc Treatment Hematology/Oncolog y Treatment, [place] [address] [place] [address] Ritu, Chair 5 Hem Onc [place] [address] [place] [address] Multiple myeloma not having achieved remission (HCC)*; [...] 30 Tab 0 12/25/2018 Active nystatin (NYSTOP) 295322 UNIT/GM powder Apply topically to affected area [...] 12:10 PM EDT Laboratory Laboratory [facility] [place] [address] [place], [place] [phone] Ritu, Lab Scenery 200 [facility] [place], [place] [address] 03/22/2024 1:00 PM EDT [facility] 200 [facility], [place] [phone] Ritu, Chair 10 Hem Onc [facility] 200 [facility] [place], [place] [address] 03/30/2024 1:00 PM EDT Laboratory Laboratory [facility] [place] 200 [facility] [place], [place] [phone] Ritu, Lab [facility] 200 [facility] [place], [place] [address] 03/30/2024 2:15 PM EDT Office Visit Hematology/Oncology [facility] [place] 200 [facility] [place], [place] [phone] Jorge Allen MD 200 [facility] [place], [place] [address] 03/30/2024 2:45 PM EDT Hem[facility]Onc [facility] 200 [facility], [place] [phone] Health Maintenance Due Date Last Done Comments [...] encounter Medical Devices Implanted Type Area Student Life Coordinator Device Identifier Shelf Expiration Date Model / Serial / Lot Screw Elbow Humeral Total - [id number] Implanted:Qty: 1 on 12/23/2018 by Gautam Jasso MD at OR [facility] Right: Upper Arm [employer] 09/13/202700-0 - / / [id number] Deisi Nexel Total Elbow Implanted:Qty: 1 on 12/23/2018 by Gautam Jasso MD at OR [facility] Right: Upper Arm 04/13/2023-095 - / / [id number] Cement Antibiotic Bone - [id number] Implanted:Qty: 1 on 12/23/2018 by Gautam Jasso MD at OR [facility] Right: Upper Arm RENY : ORTHOPAEDICS 05/13/2020 6197-9-010 / / [id number] Cement Antibiotic Bone - [id number] Implanted:Qty: 1 on 12/23/2018 by Gautam Jasso MD at OR [facility] Right: Upper Arm RENY : ORTHOPAEDICS 05/13/2020 6197-9-010 / / [id number] Stem Compr Srs Mod [id number] - [id number] Implanted:Qty: 1 on 12/23/2018 by Gautam Jasso MD at OR [facility] Right: Upper Arm BIOMET : TRAUMA 01/28/2027 [id number] / / [id number] Deisi Nexel Total Elbow Ulnar Component Implanted:Qty: 1 on 12/23/2018 by Gautam Jasso MD at OR [facility] Right: Upper Arm 07/14/202500-025 -07 / / [id number] Comprehensive Srs/Nexel Distal Body Implanted:Qty: 1 on 12/23/2018 by Gautam Jasso MD at OR [facility] Right: Upper Arm 03/03/2028 [id number] / / [id number] Valve Ricky 3 Ultra 26mm - [id number] Implanted:Qty: 1 on 05/27/2022 by Jesús Weber MD at CARDIAC LABS [facility] [employer] [id number] 03/17/2023 [id number] / / Port Implant W/8f Poly Cath - [id number] Implanted:Qty: 1 on 12/29/2022 by Sudhir Lovett DO at OR [facility] Right: Chest CR BARD : PERIPHERAL VASCULAR [id number] 02/12/2024 [id number] / / [id number] documented as of this encounter Visit Diagnoses [...] Documents on File Type Date Recorded Patient Lan Support Specialist Expl anation Power of Brickmason Apprentice 12/12/2018 8:46 AM Vipin viveros Power of Brickmason Apprentice Power of Brickmason Apprentice 12/12/2018 8:45 AM Zuleyma ferguson Power of Brickmason Apprentice Latest Code Status on File Code Status [...] the patient have Health Care Power of Brickmason Apprentice? Yes, not currently available Full Code 11/21/2018 8:53 AM 11/21/2018 2:27 PM This or bull reflects the patients wishes and were consensually agreed upon. Care Teams General Farm Hand Relationship Specialty Start Date End Date Guillard, Kulwinder, MD [address], [place] [address] PCP - General 06/28/03 documented as of this encounter
--- OUTSIDE RECORDS SUMMARY | 2024-03-19 07:01 | External Medical Summary ---
Author Name Unknown Address Unknown Organization K09:[facility] [address] [place] [address] Laboratory Report Ordering Provider Test Date Status WOOD CANTU 03/15/2024 11:22:13 Final Observation Date Value Abnormality Reference (Units ) Status BUN 03/15/2024 11:22:13 18 6-20 (mg/dL) Final Creatinine 03/15/2024 11:22:13 1.0 0.5-1.0 (mg/dL) Final Glomerular filtration rate/1.73 sq M.predicted [Volume Rate/Area] in Serum, Plasma or Blood by Creatinine-based formula (CKD-EPI) 03/15/2024 11:22:13 55 Below low normal >=60 (mL/min) Final eGFR is calculated based on the CKD-EPI 2020 equation Sodium 03/15/2024 11:22:13 134 Below low normal 135 -146 (mmol/L) Final Potassium 03/15/2024 11:22:13 3.4 Below low normal 3.5 -5.1 (mmol/L) Final Cl 03/15/2024 11:22:13 95 Below low normal 98- 107 (mmol/L) Final CO2 03/15/2024 11:22:13 27 22-32 (mmo l/L) Final Anion gap 03/15/2024 11:22:13 12 7-15 (mmol /L) Final Glucose 03/15/2024 11:22:13 147 Above high normal 70 -120 (mg/dL) Final Albumin 03/15/2024 11:22:13 3.0 Below low normal 3.8 -5.0 (g/dL) Final AST (Aspartate aminotransferase) 03/15/2024 11:22:13 18 10-35 (U/L) Fin al Alk Phos 03/15/2024 11:22:13 63 35-130 (U/ L) Final Bilirubin, Total 03/15/2024 11:22:13 0.4 <=1 .2 (mg/dL) Final Calcium 03/15/2024 11:22:13 8.5 8.4-10.2 ( mg/dL) Final Protein 03/15/2024 11:22:13 5.2 Below low normal 6.0 -8.3 (g/dL) Final ALT (Alanine aminotransferase) 03/15/2024 11:22:13 10 10-35 (U/L) Abisai mcconnell Performing Location [facility] [place] [address]
--- OUTSIDE RECORDS SUMMARY | 2024-03-19 07:01 | External Medical Summary | Summary of Care ---
Author Name Unknown Organization [facility] Address [address] [facility] [place] [address] Phone [phone] Care Team Providers Care Oyster Buyer Name Role Phone Kulwinder Byers MD Primary Care Provider Reason for Visit * Reason Comments Chemotherapy [id number] Cytoxan IV Therapy Privigen * Episode Based Medications (Routine) - Authorized Specialty Diagnoses / Procedures Referred By Contac t Referred To Contact Diagnoses Hypogammaglobulinemia (HCC) Multiple myeloma not having achieved remission (HCC) Procedures MT INJ IVIG PRIVIGEN 500 MG oJrge Allen MD [address] [place], [place] [address] Anc Hem/Onc [facility] DEPT CLOSED - 09/27/[address] [place] [address] Referral ID Status Reason Start Date Expiration Date V isits Requested Visits Authorized [id number] Authorized 10/04/2023 11/13/2099 999 999 Encounter Details Date Type Department Care Team (Latest Contact Info) Description 02/03/2024 12:00 PM EDT Hem/Onc Treatment Hematology/Oncolog y Treatment, [place] [address] [place] [phone] Ritu, Chair 5 Hem Onc [place] [address] [place] [address] Multiple myeloma not having achieved remission (HCC)*; [...] 30 Tab 0 12/25/2018 Active nystatin (NYSTOP) 658264 UNIT/GM powder Apply topically to affected area [...] 12:10 PM EDT Laboratory Laboratory [facility] [place] [address] [place], [place] [phone] Ritu, Lab Scenery 200 [facility] [place], [place] [address] 03/22/2024 1:00 PM EDT [facility] 200 [facility], [place] [phone] Ritu, Chair 10 Hem Onc [facility] 200 [facility] [place], [place] [address] 03/30/2024 1:00 PM EDT Laboratory Laboratory [facility] [place] 200 [facility] [place], [place] [phone] Ritu, Lab [facility] 200 [facility] [place], [place] [address] 03/30/2024 2:15 PM EDT Office Visit Hematology/Oncology [facility] [place] 200 [facility] [place], [place] [phone] Jorge Allen MD 200 [facility] [place], [place] [address] 03/30/2024 2:45 PM EDT Hem[facility] 200 [facility], [place] [phone] Health Maintenance Due Date Last Done Comments [...] this encounter Medical Devices Implanted Type Area Ship Engines Operating Engineer Device Identifier Shelf Expiration Date Model / Serial / Lot Screw Elbow Humeral Total - [id number] Implanted:Qty: 1 on 12/23/2018 by Gautam Jasso MD at OR [facility] Right: Upper Arm [employer] 09/13/202700-0 - / / [id number] Deisi Nexel Total Elbow Implanted:Qty: 1 on 12/23/2018 by Gautam Jasso MD at OR [facility] Right: Upper Arm 04/13/2023-095 - / / [id number] Cement Antibiotic Bone - [id number] Implanted:Qty: 1 on 12/23/2018 by Gautam Jasso MD at OR [facility] Right: Upper Arm RENY : ORTHOPAEDICS 05/13/2020 6197-9-010 / / [id number] Cement Antibiotic Bone - [id number] Implanted:Qty: 1 on 12/23/2018 by Gautam Jasso MD at OR [facility] Right: Upper Arm RENY : ORTHOPAEDICS 05/13/2020 6197-9-010 / / [id number] Stem Compr Srs Mod [id number] - [id number] Implanted:Qty: 1 on 12/23/2018 by Gautam Jasso MD at OR [facility] Right: Upper Arm BIOMET : TRAUMA 01/28/2027 [id number] / / [id number] Deisi Nexel Total Elbow Ulnar Component Implanted:Qty: 1 on 12/23/2018 by Gautam Jasso MD at OR [facility] Right: Upper Arm 07/14/202500-025 -07 / / [id number] Comprehensive Srs/Nexel Distal Body Implanted:Qty: 1 on 12/23/2018 by Gautam Jasso MD at OR [facility] Right: Upper Arm 03/03/2028 [id number] / / [id number] Valve Ricky 3 Ultra 26mm - [id number] Implanted:Qty: 1 on 05/27/2022 by Jesús Weber MD at CARDIAC LABS [facility] [employer] [id number] 03/17/2023 [id number] / / Port Implant W/8f Poly Cath - [id number] Implanted:Qty: 1 on 12/29/2022 by Sudhir Lovett DO at OR [facility] Right: Chest CR BARD : PERIPHERAL VASCULAR [id number] 02/12/2024 [id number] / / [id number] documented as of this encounter Visit Diagnoses [...] Documents on File Type Date Recorded Patient Javascript Web Developer Expl anation Power of Head Nurse 12/12/2018 8:46 AM Vipin viveros Power of Head Nurse Power of Head Nurse 12/12/2018 8:45 AM Zuleyma ferguson Power of Head Nurse Latest Code Status on File Code Status [...] the patient have Health Care Power of Head Nurse? Yes, not currently available Full Code 11/21/2018 8:53 AM 11/21/2018 2:27 PM This or bull reflects the patients wishes and were consensually agreed upon. Care Teams Oyster Buyer Relationship Specialty Start Date End Date Guillard, Kulwinder, MD [address], [place] [address] PCP - General 06/28/03 documented as of this encounter
--- OUTSIDE RECORDS SUMMARY | 2024-03-19 07:01 | External Medical Summary ---
Author Name Unknown Address Unknown Organization K01:[facility] - 100 [facility] [place] [address] Laboratory Report Ordering Provider Test Date Status WOOD CANTU 03/15/2024 11:22:13 Final Observation Date Value Abnormality Reference (Units) Status PARAPROTEIN NORMAL/ABNORMAL 11:22:13 Abnormal Abnormal Normal Final Protein 11:22:13 4.9 Below low normal 6.0-8.3 (g/dL) Final Albumin/Protein.tota l [Pure mass fraction] in Serum or Plasma by Electrophoresis 11:22:13 2.58 Below low normal 3.30-4.40 (g/dL) Final Alpha 1 globulin/Protein.tot al [Pure mass fraction] in Serum or Plasma by Electrophoresis 11:22:13 0.31 Above high normal 0.10-0.30 (g/dL) Final Alpha 2 globulin/Protein.tot al [Pure mass fraction] in Serum or Plasma by Electrophoresis 11:22:13 0.78 0.60-1.00 (g/dL) Final Beta globulin/Protein.tot al [Pure mass fraction] in Serum or Plasma by Electrophoresis 11:22:13 0.86 0.80-1.30 (g/dL) Final Gamma globulin/Protein.tot al [Pure mass fraction] in Serum or Plasma by Electrophoresis 11:22:13 0.36 Below low normal 0.70-1.70 (g/dL) Final Protein Fractions [Interpretation] in Serum or Plasma by Electrophoresis Narrative 11:22:13 Abnormal, 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 Unable to reliably identify or accurately quantify the paraprotein due to its migration in the beta region. Please order serum free light chains, beta-2 Final Protein Fractions [Interpretation] in Serum or Plasma by Electrophoresis Narrative 4 11:22:13 microglobulin, and the quantitative immunoglobulins for disease monitoring. Decreased gamma fraction. Final Performing Location [facility] - [address] [facility] [address]
--- OUTSIDE RECORDS SUMMARY | 2024-03-19 07:01 | External Medical Summary | Summary of Care ---
Author Name Unknown Organization [facility] Address [address] [facility] [place] [address] Phone [phone] Care Team Providers Care School Bus Driver/Custodian Name Role Phone Kulwinder Byers MD Primary Care Provider Reason for Visit * Reason Comments Outpatient Testing Encounter Details Date Type Department Care Team (Late st Contact Info) Description 03/15/2024 11:30 AM EDT Laboratory Laboratory [facility] [place] [address] [place] [address] Ritu Lab [facility] 200 [facility] [place] [address] Multiple myeloma not having achieved remission (HCC) [...] 30 Tab 0 12/25/2018 Active nystatin (NYSTOP) 792875 UNIT/GM powder Apply topically to affected area [...] Active Ondansetron HCl 8 MG Oral Tablet (Zofran)Indications :Multiple myeloma not having achieved remission (HCC) Take 1 Tablet by mouth every 8 hours as needed for Nausea. 20 Tablet 1 01/27/2024 Active Lidocaine-Prilocain e 2.5-2.5 % External Cream [...] needed for Pain, Breakthrough. 60 Tablet 0 03/08/2024 Active documented as of this encounter (statuses [...] Care Team (Late st Contact Info) Description 03/15/2024 12:30 PM EDT Hem/Onc Treatment Hematology/Oncology Treatment, [place] [address] [facility] [address] [address] [place] [phone] Ritu, Chair 7 Hem Onc [facility] 200 [facility] [place] [address] Arrived 03/30/2024 2:15 PM EDT Office Visit Hematology/Oncology [facility] [place] 200 [facility] [place] [address] Jorge Allen MD 200 [facility] [place] [address] Pending Results Name Type Priority Associated Diagnoses Date /Time COMPREHENSIVE METABOLIC PANEL Lab STAT Multiple myeloma not having achieved remission (HCC) 03/15/2024 11:22 AM EDT SERUM PROTEIN ELECTROPHORESIS REFLEX PROFILE Lab STAT Multiple myeloma not having achieved remission (HCC) 03/15/2024 11:22 AM EDT SERUM FREE LIGHT CHAINS Lab STAT Multiple myeloma not having achieved remission (HCC) 03/15/2024 11:22 AM EDT IMMUNOGLOBULIN QUANTITATIVE Lab STAT Multiple myeloma not having achieved remission (HCC) 03/15/2024 11:22 AM EDT Health Maintenance Due Date Last Done Comments DXA Scan 1940 Depression Screening 1952 Diabetic Eye Exam 1958 Diabetic Foot Exam 1958 DTaP,Tdap,and Td Vaccines (1 - Tdap) 1959 Zoster Vaccines (1 of 2) 1959 COVID-19 Vaccine (2 - Pfizer risk series) 06/29/2021 06/08/2021 Albumin/Creatinine Ratio 12/11/2021 12/11/2020 HbA1c 04/19/2024 10/19/2023, 11/15, 06/13/2020, Additional history exists Influenza Vaccine (FLU shot) (Season Ended) 2024 GFR 03/01/2025 03/01/2024, 02/12, 02/16/2024, Additional history exists Pneumococcal Vaccine: 65+ Years [...] this encounter Medical Devices Implanted Type Area Veterinary Livestock Inspector Device Identifier Shelf Expiration Date Model / Serial / Lot Screw Elbow Humeral Total - [id number] Implanted:Qty: 1 on 12/23/2018 by Gautam Jasso MD at OR [facility] Right: Upper Arm [employer] 09/13/20278400-090 - / / [id number] Deisi Nexel Total Elbow Implanted:Qty: 1 on 12/23/2018 by Gautam Jasso MD at OR [facility] Right: Upper Arm 04/13/202300-095 - / / [id number] Cement Antibiotic Bone - [id number] Implanted:Qty: 1 on 12/23/2018 by Gautam Jasso MD at OR [facility] Right: Upper Arm RENY : ORTHOPAEDICS 05/13/2020 6197-9-010 / / [id number] Cement Antibiotic Bone - [id number] Implanted:Qty: 1 on 12/23/2018 by Gautam Jasso MD at OR [facility] Right: Upper Arm RENY : ORTHOPAEDICS 05/13/2020 6197-9-010 / / [id number] Stem Compr Srs Mod 0a782rm - [id number] Implanted:Qty: 1 on 12/23/2018 by Gautam Jasso MD at OR [facility] Right: Upper Arm BIOMET : TRAUMA 01/28/2027 [id number] / / [id number] Deisi Nexel Total Elbow Ulnar Component Implanted:Qty: 1 on 12/23/2018 by Gautam Jasso MD at OR [facility] Right: Upper Arm 07/14/20258400-025 -07 / / [id number] Comprehensive Srs/Nexel Distal Body Implanted:Qty: 1 on 12/23/2018 by Gautam Jasso MD at OR [facility] Right: Upper Arm 03/03/2028 [id number] / / [id number] Valve Ricky 3 Ultra 26mm - [id number] Implanted:Qty: 1 on 05/27/2022 by Jesús Weber MD at CARDIAC LABS [facility] [employer] [id number] 03/17/2023 [id number] / / Port Implant W/8f Poly Cath - [id number] Implanted:Qty: 1 on 12/29/2022 by Sudhir Lovett DO at OR [facility] Right: Chest CR BARD : PERIPHERAL VASCULAR [id number] 02/12/2024 [id number] / / [id number] documented as of this encounter Procedures Procedure Name Priority Date/Time Associated Diagnosis Comments DIFFERENTIAL, AUTOMATED STAT 03/15/2024 11:22 AM EDT Multiple myeloma not having achieved remission (HCC) CBC STAT 03/15/2024 11:22 AM EDT Multiple myeloma not having achieved remission (HCC) CBC STAT 03/15/2024 11:22 AM EDT Multiple myeloma not having achieved remission (HCC) DIFFERENTIAL, TECHNOLOGIST REVIEW Routine 03/15/2024 11:22 AM EDT Multiple myeloma not having achieved remission (HCC) documented in this encounter Results * (ABNORMAL) DIFFERENTIAL, TECHNOLOGIST REVIEW (03/15/2024 11:22 AM EDT) nRBCs 03/15/2024 11:43 AM EDT [facility] 56-02 Acanthocytes Moderate(A ) None Seen 03/15/2024 11:43 AM EDT [facility] 56-02 Elliptocytes Moderate(A ) None Seen 03/15/2024 11:43 AM EDT [facility] 56-02 Schistocytes Few(A) None Seen 03/15/2024 11:43 AM EDT [facility] 56-02 Blood Venous blood specimen / Unknown Venipuncture / Unknown 03/15/2024 11:22 AM EDT 03/15/2024 11:22 AM EDT Jorge Allen MD LAB BLOOD ORDERABLES [facility] [address] [place], [place] [phone] * (ABNORMAL) DIFFERENTIAL, AUTOMATED (03/15/2024 11:22 AM EDT) WBC 3.65(L) 4.00 - 10.80 K/uL 03/15/2024 11:43 AM EDT [facility] 56 Neutrophils % 82.5(H) 40.0 - 75.0 % 03/15/2024 11:43 AM EDT [facility] Lymphocytes % 3.0(L) 18.0 - 42.0 % 03/15/2024 11:43 AM EDT [facility] 56 Monocytes % 8.5 1.0 - 11.0 % 03/15/2024 11:43 AM EDT [facility] 56 Eosinophils % 5.2 0.0 - 6.0 % 03/15/2024 11:43 AM EDT [facility] 56 Basophils % 0.8 0.0 - 2.0 % 03/15/2024 11:43 AM EDT [facility] 56 Absolute Neutrophils 3.01 1.80 - 7.70 K/uL 03/15/2024 11:43 AM EDT [facility] 56 Absolute Lymphocytes 0.11(L) 1.00 - 4.80 K/ul 03/15/2024 11:43 AM EDT [facility] 56 Absolute Monocytes 0.31 0.00 - 1.10 K/uL 03/15/2024 11:43 AM EDT [facility] 56 Absolute Eosinophils 0.19 0.00 - 0.70 K/uL 03/15/2024 11:43 AM EDT [facility] 56 Absolute Basophils 0.03 0.00 - 0.20 K/uL 03/15/2024 11:43 AM EDT [facility] 56 Blood Venous blood specimen / Unknown Venipuncture / Unknown 03/15/2024 11:22 AM EDT 03/15/2024 11:22 AM EDT Jorge Allen MD LAB BLOOD ORDERABLES [facility] [address] [place], [place] [id number] * (ABNORMAL) CBC (03/15/2024 11:22 AM EDT) WBC 3.65(L) 4.00 - 10.80 K/uL 03/15/2024 11:43 AM EDT [address] RBC 3.24 3.85 - 5.15 M/uL 03/15/2024 11:43 AM EDT [address] HGB 9.7(L) 12.0 - 15.3 g/dL 03/15/2024 11:43 AM EDT [address] HCT 30.0(L) 36.0 - 45.2 % 03/15/2024 11:43 AM EDT [address] MCV 92.6 81.5 - 97.5 fL 03/15/2024 11:43 AM EDT [address] MCH 29.9 27.0 - 34.0 pg 03/15/2024 11:43 AM EDT [address] MCHC 32.3 32.0 - 36.0 g/dL 03/15/2024 11:43 AM EDT [address] RDW 19.4 11.5 - 15.5 % 03/15/2024 11:43 AM EDT [address] PLT 73(L) 140 - 400 K/uL 03/15/2024 11:43 AM EDT [address] MPV 03/15/2024 11:43 AM EDT [facility] 56 Comment:No result - abnormal platelet distribution. Blood Venous blood specimen / Unknown Venipuncture / Unknown 03/15/2024 11:22 AM EDT 03/15/2024 11:22 AM EDT Jorge Allen MD LAB BLOOD ORDERABLES [facility] [address] [place] [address] documented in this encounter Visit Diagnoses Diagnosis Multiple myeloma not having achieved remission (HCC) Multiple myeloma, without mention of having achieved remission documented in this encounter Advance Directives Documents on File Type Date Recorded Patient Lodging House Keeper Expl anation Power of Talent Manager 12/12/2018 8:46 AM Vipin viveros Power of Talent Manager Power of Talent Manager 12/12/2018 8:45 AM Zuleyma ferguson Power of Talent Manager Latest Code Status on File Code [...] the patient have Health Care Power of Talent Manager? Yes, not currently available Full Code 11/21/2018 8:53 AM 11/21/2018 2:27 PM This or bull reflects the patients wishes and were consensually agreed upon. Care Teams School Bus Driver/Custodian Relationship Specialty Start Date End Date Kulwinder Byers MD [address] [address] PCP - General 06/28/03 documented as of this encounter
--- OUTSIDE RECORDS SUMMARY | 2024-03-19 07:01 | External Medical Summary | Summary of Care ---
Author Name Unknown Organization [facility] Address [address] [facility] [place] [address] Phone [phone] Care Team Providers Care Spool Sorter Name Role Phone Kulwinder Byers MD Primary Care Provider Encounter Details Date Type Department Care Team (Late st Contact Info) Description 03/12/2024 Telephone Hematology/Oncology Treatment, [place] [address] [place] [address] Jorge Allen MD [address] [place] [address] Allergies Active Allergy Reactions Criticality Noted Date Comments Adhesive Tape 05/28/2003 documented as of this encounter (statuses as of 03/12/2024) Medications Medication Sig Dispensed Refills Start Date [...] 30 Tab 0 12/25/2018 Active nystatin (NYSTOP) 234548 UNIT/GM powder Apply topically to affected area [...] as of this encounter (statuses as of 03/12/2024) Active Problems Problem Noted Date Diagnosed Date [...] as of this encounter (statuses as of 03/12/2024) Resolved Problems Problem Noted Date Diagnosed Date 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 If someone can reach out to her to discuss. * Telephone Encounter - Love Quick RN - 03/12/2024 1:56 PM EDT Spoke to patients daughter- when her brother went to get Chantel this morning, she was still in bed and refused to get up. Her sister in law is on her way there now to get Chantel and bring her for her office visit. Scheduling: if patient comes today, please reschedule labs/ treatment for another day (I think patient usually likes Fridays for treatment). If she does not come today, all 3 appts will need to be rescheduled. * Telephone Encounter - Love Quick RN - 03/12/2024 1:30 PM EDT Called patients daughter- her brother was to bring patient for appts today, unsure why he didn't. She is going to try calling Chantel and her brother to see what is going on. Advised her that I will try to call her back. * Telephone Encounter - Brenda Ashton RN - 03/12/2024 11:37 AM EDT Patient did not show for lab appointment and treatment appointment . Attempted to reach patient x2,patient did not answer. Scheduling: Please attempt to call patient again to reschedule treatment appt and appt with Mariana. Patient will need labs done prior to as well. Also, remove from schedule today. NS: FYI, please update beacon. documented in this encounter Plan of Treatment Upcoming Encounters Date Type Department Care Team (Late st Contact Info) Description 03/15/2024 12:30 PM EDT Hem/Onc Treatment [facility] [place] [facility] [phone] Ritu, Chair 7 Hem Onc [address] [place] [address] 03/30/2024 2:15 PM EDT Office Visit Hematology/Oncology [address] [place] [address] Jorge Allen MD 200 [place] [address] Health Maintenance Due Date Last Done Comments [...] this encounter Medical Devices Implanted Type Area Bottling Machine Operator Device Identifier Shelf Expiration Date Model / Serial / Lot Screw Elbow Humeral Total - [id number] Implanted:Qty: 1 on 12/23/2018 by Gautam Jasso MD at OR [facility] Right: Upper Arm [employer] INC 09/13/202700-090 - / / [id number] Deisi Nexel Total Elbow Implanted:Qty: 1 on 12/23/2018 by Gautam Jasso MD at OR [facility] Right: Upper Arm 04/13/202300-095 / / [id number] Cement Antibiotic Bone - [id number] Implanted:Qty: 1 on 12/23/2018 by Gautam Jasso MD at OR [facility] Right: Upper Arm RENY : ORTHOPAEDICS 05/13/2020 6197-9-010 / / [id number] Cement Antibiotic Bone - [id number] Implanted:Qty: 1 on 12/23/2018 by Gautam Jasso MD at OR [facility] Right: Upper Arm RENY : ORTHOPAEDICS 05/13/2020 6197-9-010 / / [id number] Stem Compr Srs Mod 2w700sp - [id number] Implanted:Qty: 1 on 12/23/2018 by Gautam Jasso MD at OR [facility] Right: Upper Arm BIOMET : TRAUMA 01/28/2027 [id number] / / [id number] Deisi Nexel Total Elbow Ulnar Component Implanted:Qty: 1 on 12/23/2018 by Gautam Jasso MD at OR [facility] Right: Upper Arm 07/14/202500-025 -07 / / [id number] Comprehensive Srs/Nexel Distal Body Implanted:Qty: 1 on 12/23/2018 by Gautam Jasso MD at OR [facility] Right: Upper Arm 03/03/2028 [id number] / / [id number] Valve Ricky 3 Ultra 26mm - [id number] Implanted:Qty: 1 on 05/27/2022 by Jesús Weber MD at [facility] LABS [facility] [employer] [id number] 03/17/2023 [id number] / / Port Implant W/8f Poly Cath - [id number] Implanted:Qty: 1 on 12/29/2022 by Sudhir Lovett DO at OR [facility] Right: Chest CR BARD : PERIPHERAL VASCULAR [id number] 02/12/2024 [id number] / / [id number] documented as of this encounter Advance Directives Documents on File Type Date Recorded Patient Ross Furnace Operator Expl anation Power of Tire Spotter 12/12/2018 8:46 AM Vipin hcare Power of Tire Spotter Power of Tire Spotter 12/12/2018 8:45 AM Zuleyma ferguson Power of Tire Spotter Latest Code Status on File Code Status [...] the patient have Health Care Power of Tire Spotter? Yes, not currently available Full Code 11/21/2018 8:53 AM 11/21/2018 2:27 PM This or bull reflects the patients wishes and were consensually agreed upon. Care Teams Spool Sorter Relationship Specialty Start Date End Date Kulwinder Byers MD [address] [address] PCP - General 06/28/03 documented as of this encounter
--- OUTSIDE RECORDS SUMMARY | 2024-03-19 07:01 | External Medical Summary ---
Author Name Unknown Address Unknown Organization K09:[facility] [place] [address] Laboratory Report Ordering Provider Test Date Status WOOD CANTU 03/15/2024 11:22:13 Final Observation Date Value Abnormality Reference (Units ) Status SYNC LEUKOCYTES IN BLOOD BY AUTOMATED COUNT 03/15/2024 11:22:13 3.65 Below low normal 4.00-10.80 (K/uL) Final Segs 03/15/2024 11:22:13 82.5 Above high normal 40.0-75.0 (%) Final Lymphs % 03/15/2024 11:22:13 3.0 Below low normal 18.0-42.0 (%) Final Monos 03/15/2024 11:22:13 8.5 1.0-11.0 (%) Final Eosinophils 03/15/2024 11:22:13 5.2 0.0-6.0 (%) Final Basos 03/15/2024 11:22:13 0.8 0.0-2.0 (%) Final Absolute Segs 03/15/2024 11:22:13 3.01 1.80-7.70 (K/uL) Final Lymphs, absolute 03/15/2024 11:22:13 0.11 Below low normal 1.00-4.80 (K/ul) Final Monos, Abs 03/15/2024 11:22:13 0.31 0.00-1.10 (K/uL) Final Eos, Abs 03/15/2024 11:22:13 0.19 0.00-0.70 (K/uL) Final Basos, Abs 03/15/2024 11:22:13 0.03 0.00-0.20 (K/uL) Final Performing Location [facility] [place] [address]
--- OUTSIDE RECORDS SUMMARY | 2024-03-19 07:01 | External Medical Summary | Summary of Care ---
Author Name Unknown Organization [facility] Address [address] [facility] [place] [address] Phone [phone] Care Team Providers Care Byproducts Operator Name Role Phone Kulwinder Byers MD Primary Care Provider [phone] Reason for Visit * Reason Onset Date Comments Advice 03/14/2024 Encounter Details Date Type Department Care Team (Late st Contact Info) Description 03/14/2024 Telephone Hematology/Oncology [facility] [place] [address] [place] [address] Jorge Allen MD [address] [place] [address] Advice Allergies Active Allergy Reactions Criticality Noted Date Comments Adhesive Tape 05/28/2003 documented as of this encounter (statuses as of 03/14/2024) Medications Medication Sig Dispensed Refills Start Date [...] 30 Tab 0 12/25/2018 Active nystatin (NYSTOP) 235437 UNIT/GM powder Apply topically to affected area [...] as of this encounter (statuses as of 03/14/2024) Active Problems Problem Noted Date Diagnosed Date [...] as of this encounter (statuses as of 03/14/2024) Resolved Problems Problem Noted Date Diagnosed Date 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 Kowalski pts daughter called stating that she received a call and message from the office that ptcan be squeezed in for labs prior to her 03.15.24 appt. Per Ms. Wilson pt is needing lab either today or 1 hour prior to her treatment appt tomorrow. Pt scheduled for labs. * Telephone Encounter - Ekta Sanders OSA - 03/14/2024 11:40 AM EDT Pt's daughter calling stating that pt usually gets labs done at home but they're booked tomorrow. Pt coming in tomorrow for treatment at 1230 and is wondering if she can come in an hr earlier and have labs done in the clinic. Please call daughter Meghana back at [phone]. TY! documented in this encounter Plan of Treatment Upcoming Encounters Date Type Department Care Team (Late st Contact Info) Description 03/15/2024 11:30 AM EDT Laboratory [facility] [place] [address] [place] [phone] Ritu Lab [facility] [address] [facility] [place] [address] 03/15/2024 12:30 PM EDT Hem/Onc Treatment Hematology/Oncology Treatment, [place] [address] [place] [phone] Ritu Chair 7 Hem Onc [address] [place] [address] 03/30/2024 2:15 PM EDT Office Visit Hematology/Oncology [place] [address] [place] [address] Jorge Allen MD 200 [facility] [place] [address] Health Maintenance Due Date Last Done Comments [...] this encounter Medical Devices Implanted Type Area Inlayer Silver Device Identifier Shelf Expiration Date Model / Serial / Lot Screw Elbow Humeral Total - [id number] Implanted:Qty: 1 on 12/23/2018 by Gautam Jasso MD at OR [facility] Right: Upper Arm [employer] INC 09/13/2027- / / [id number] Deisi Nexel Total Elbow Implanted:Qty: 1 on 12/23/2018 by Gautam Jasso MD at OR [facility] Right: Upper Arm 04/13/2023- / / [id number] Cement Antibiotic Bone - [id number] Implanted:Qty: 1 on 12/23/2018 by Gautam Jasso MD at OR [facility] Right: Upper Arm RENY : ORTHOPAEDICS 05/13/2020 6197-9-010 / / [id number] Cement Antibiotic Bone - [id number] Implanted:Qty: 1 on 12/23/2018 by Gautam Jasso MD at OR [facility] Right: Upper Arm RENY : ORTHOPAEDICS 05/13/2020 6197-9-010 / / [id number] Stem Compr Srs Mod 7w985ci - [id number] Implanted:Qty: 1 on 12/23/2018 by Gautam Jasso MD at OR [facility] Right: Upper Arm BIOMET : TRAUMA 01/28/2027 [id number] / / [id number] Deisi Nexel Total Elbow Ulnar Component Implanted:Qty: 1 on 12/23/2018 by Gautam Jasso MD at OR [facility] Right: Upper Arm 07/14/2025 00-8400-025 -07 / / [id number] Comprehensive Srs/Nexel Distal Body Implanted:Qty: 1 on 12/23/2018 by Gautam Jasso MD at OR [facility] Right: Upper Arm 03/03/2028 [id number] / / [id number] Valve Ricky 3 Ultra 26mm - [id number] Implanted:Qty: 1 on 05/27/2022 by Jesús Weber MD at [facility] LABS [facility] [employer] [facility] [employer] [id number] 03/17/2023 [id number] / / Port Implant W/8f Poly Cath - [id number] Implanted:Qty: 1 on 12/29/2022 by Sudhir Lovett DO at OR [facility] Right: Chest CR BARD : PERIPHERAL VASCULAR [id number] 02/12/2024 [id number] / / [id number] documented as of this encounter Advance Directives Documents on File Type Date Recorded Patient Analysis Specialist Expl anation Power of Electric Motor Mechanic 12/12/2018 8:46 AM Vipin viveros Power of Electric Motor Mechanic Power of Electric Motor Mechanic 12/12/2018 8:45 AM Zuleyma ferguson Power of Electric Motor Mechanic Latest Code Status on File Code Status [...] the patient have Health Care Power of Electric Motor Mechanic? Yes, not currently available Full Code 11/21/2018 8:53 AM 11/21/2018 2:27 PM This or bull reflects the patients wishes and were consensually agreed upon. Care Teams Byproducts Operator Relationship Specialty Start Date End Date Kulwinder Byers MD [address] [address] PCP - General 06/28/03 documented as of this encounter
--- OUTSIDE RECORDS SUMMARY | 2024-03-19 07:01 | External Medical Summary ---
Author Name Unknown Address Unknown Organization K01[facility] [place] [facility] [place] [address] [address] [place] [address] Laboratory Report Ordering Provider Test Date Status WOOD CANTU 03/15/2024 11:22:13 Final Observation Date Value Abnormality Reference (Units ) Status Cane Savannah light chains, Free, Serum 03/15/2024 11:22:13 20.05 Above high normal 3.30-19.40 (mg/L) Final Lambda light chains, free, Serum 03/15/2024 11:22:13 6.91 5.71-26.30 (mg/L) Final KAPPA LAMBDA FLC RATIO 03/15/2024 11:22:13 2.90 Above high normal 0.26-1.65 Final Performing Location [facility] [place] [facility] [place] [address] [place] [address]
--- OUTSIDE RECORDS SUMMARY | 2024-03-19 07:01 | External Medical Summary | Summary of Care ---
Author Name Unknown Organization [facility] Address [address] [facility] [place] [address] Phone [phone] Care Team Providers Care Back Roller Name Role Phone Kulwinder Byers MD Primary Care Provider Reason for Visit * Reason Comments IV Therapy IVIG Nurse Documentation Delay chemo 1 week * Episode Based Medications (Routine) - Authorized Specialty Diagnoses / Procedures Referred By Contac t Referred To Contact Diagnoses Hypogammaglobulinemia (HCC) Multiple myeloma not having achieved remission (HCC) Procedures SD INJ IVIG PRIVIGEN 500 MG Jorge Allen MD [address] [place] [address] Anc Hem/Onc [facility] DEPT CLOSED - 09/27/23 [address] [place] [address] Referral ID Status Reason Start Date Expiration Date V isits Requested Visits Authorized [id number] Authorized 10/04/2023 11/13/2099 999 999 Encounter Details Date Type Department Care Team (Latest Contact Info) Description 03/15/2024 12:30 PM EDT Hem/Onc Treatment Hematology/Oncolo gy Treatment, [place] [address] [place] [address] Ritu, Chair 7 Hem Onc Sc[address]ery [address] [place] [address] Hypogammaglobulinemia (HCC)*; Multiple myeloma not having achieved [...] 30 Tab 0 12/25/2018 Active nystatin (NYSTOP) 613654 UNIT/GM powder Apply topically to affected area [...] Sign Reading Time Taken Comments Blood Pressure 107/70 03/15/2024 4:22 PM EDT Pulse 85 03/15/2024 4:22 PM EDT Temperature 36.6 C (97.8 F) 03/15/2024 4:22 PM ED T Respiratory Rate 16 03/15/2024 4:22 PM EDT Oxygen Saturation 95% 03/15/2024 4:22 PM EDT Inhaled Oxygen Concentration - - [...] Nursing Notes * Aditi Seay, RN - 03/15/2024 4:19 PM EDT Pt completed treatment without issues. VAD flushed with 10 ml NSS and Heparin 5 ml (100 units/ml). Samson needle removed intact. Goals: Pt will remain free from injury. Possible barriers to meeting goals: pt is a high fall risk, benadryl pretreat/drowsiness for ambulation Stability of the patient: Moderately stable - low risk of patient condition declining or worsening Summary regarding today's goals: Met: Pt remained free from injury during treatment today. Pt assisted via wheelchair to transportation provided by family. Discharged in stable condition. * Aditi Seay RN - 03/15/2024 4:17 PM EDT Chair 8, IVIG, Cytoxan. Per Dr. Allen, delay Cytoxan 1 week due to Plt 73. Pt reported feeling "outof sorts" today after taking an extra dose of Oxycodone at home yesterday. Pt otherwise has no new symptoms/concerns to report. VAD accessed; NSS infusing. Safety and Risk for Injury Patient will remain free from injury. Ensure appropriate safety devices are available. Provide and maintain safe environment. documented in this encounter Plan of Treatment Upcoming Encounters Date Type Department Care Team (Late st Contact Info) Description 03/22/2024 12:10 PM EDT Laboratory Laboratory [facility] [place] [address] [place] [phone] Ritu, Lab [address] [place] [address] [place] [address] 03/22/2024 1:00 PM EDT Hem/Onc Treatment Hematology/Oncology Treatment, [place] [address] [place] [phone] Ritu, Chair 10 Hem Onc [facility] 200 [facility] [place] [address] 03/30/2024 1:00 PM EDT Laboratory Laboratory [facility] [place] [address] [place] [address] Ritu, Lab [facility] [address] [place] [address] 03/30/2024 2:15 PM EDT Office Visit Hematology/Oncology [facility] [place] [address] [place] [address] Jorge Allen MD 200 [facility] [place] [address] 03/30/2024 2:45 PM EDT Hem/Onc Treatment Hematology/Oncology Treatment, [place] [address] [place] [address] Health Maintenance Due Date Last Done Comments [...] this encounter Medical Devices Implanted Type Area Salesperson Men'S Furnishings Device Identifier Shelf Expiration Date Model / Serial / Lot Screw Elbow Humeral Total - [id number] Implanted:Qty: 1 on 12/23/2018 by Gautam Jasso MD at OR [facility] Right: Upper Arm [employer] 09/13/2027-0 / / [id number] Abel Nexel Total Elbow Implanted:Qty: 1 on 12/23/2018 by Gautam Jasso MD at OR [facility] Right: Upper Arm 04/13/2023- / / [id number] Cement Antibiotic Bone - [id number] Implanted:Qty: 1 on 12/23/2018 by Gautam Jasso MD at OR [facility] Right: Upper Arm RENY : ORTHOPAEDICS 05/13/2020 6197-9-010 / / [id number] Cement Antibiotic Bone - [id number] Implanted:Qty: 1 on 12/23/2018 by Gautam Jasso MD at OR [facility] Right: Upper Arm RENY : ORTHOPAEDICS 05/13/2020 6197-9-010 / / [id number] Stem Compr Srs Mod [id number] - [id number] Implanted:Qty: 1 on 12/23/2018 by Gautam Jasso MD at OR [facility] Right: Upper Arm BIOMET : TRAUMA 01/28/2027 [id number] / / [id number] Abel Nexel Total Elbow Ulnar Component Implanted:Qty: 1 on 12/23/2018 by Gautam Jasso MD at OR [facility] Right: Upper Arm 07/14/2025 00-8400-025 -07 / / [id number] Comprehensive Srs/Nexel Distal Body Implanted:Qty: 1 on 12/23/2018 by Gautam Jasso MD at OR [facility] Right: Upper Arm 03/03/2028 [id number] / / [id number] Valve Ricky 3 Ultra 26mm - [id number] Implanted:Qty: 1 on 05/27/2022 by Jesús Weber MD at CARDI[facility] LABS [facility] [employer] [id number] 03/17/2023 [id number] / / Port Implant W/8f Poly Cath - [id number] Implanted:Qty: 1 on 12/29/2022 by Sudhir Lovett DO at OR [facility] Right: Chest CR BARD : PERIPHERAL VASCULAR [id number] 02/12/2024 [id number] / / [id number] documented as of this encounter Visit Diagnoses [...] previous infusion reaction with IVIG, Starting on Radha 03/15/24 at 1400, Until Discontinued, Maximum of 4 grams (4000 mg) per day. Acetaminophen (Tylenol) tab 650 mg 650 mg, Oral, ONCE PRN Other, or Chills, Starting on Tue03/15/24 at 1253, Until Tue03/16/24 at 1252, For 24 hours, Maximum of 4 grams (4000 mg) per day. 4 hours after initial dose. Given 03/15/2024 1:10 PM EDT 650 mg diphenhydrAMINE (Benadryl) cap 25 mg 25 mg, Oral, ONCE PRN If previous infusion reaction with IVIG, Starting on Tue03/15/24 at 1400, Until Discontinued diphenhydrAMINE (Benadryl) cap 25 mg 25 mg, Oral, ONCE PRN Other, Fever/Chills, Starting on Tue03/15/24 at 1253, Until Tue03/16/24 at 1252, For 24 hours, 4 hours after initial dose Given 03/15/2024 1:11 PM EDT 25 mg diphenhydrAMINE (Benadryl) inj 50 mg 50 mg, IV Push, ONCE PRN Other, Hypersensitivity Reaction, Starting on Tue03/15/24 at 1253, Until Tue03/16/24 at 1252, For 24 hours EPINEPHrine 1 MG/ML inj 0.3 mg 0.3 mg, Intramuscular, ONCE PRN Other, Hypersensitivity Reaction or Anaphylaxis, Starting on Tue03/15/24 at 1253, Until Tue03/16/24 at 1252, For 24 hours hEParin 100 UNIT/ML Lock Flush inj 500 Units 500 Units (5 mL), IV Lock, PRN Other, IV Flush, Starting on Tue03/15/24 at 1253, Until Tue03/16/24 at 1252, For 24 hours, Do not flush if lock, PICC, or central line not in place; IV infusing or unable to flush. Given 03/15/2024 3:13 PM EDT 500 Units Hydrocortisone Sod Suc (PF) (Solu-Cortef) inj 100 mg 100 mg, IV Push, ONCE PRN Other, Hypersensitivity Reaction, Starting on Tue03/15/24 at 1253, Until Tue03/16/24 at 1252, For 24 hours NSS infusion 500 mL, Intravenous, at 50 mL/hr, CONTINUOUS, Starting on Tue03/15/24 at 1400, Until Tue03/15/24 at 2359 Start Infusion 03/15/2024 1:01 PM EDT 500 mL 50 mL/hr oxygen GAS Inhalation, OXYGEN, First dose on Tue03/15/24 at 1600, Until Discontinued, Device/Managed by: Low [...] Push, PRN Other, IV Flush, Starting on Tue03/15/24 at 1253, Until Tue03/16/24 at 1252, For 24 hours, Do not flush if lock, PICC, or central line not in place; IV infusing or unable to flush. Given 03/15/2024 3:13 PM EDT 10 mL Inactive Administered Medications - up to 3 most recent administrations Medication Order MAR Action Action Date Dose Rate Site Immune Globulin Human- IVIG 10% (Privigen) IV 20 g 20 g, IV Piggyback, ONCE, 1 dose, On Tue03/15/24 at 1330, Total dose = 30 gm Dispensed as [...] Infusion duration = 1.7 hours Start Infusion 03/15/2024 2:30 PM EDT 20 g 335 mL/hr Immune Globulin Human-IVIG 10% (Privigen) IV 10 g 10 g, IV Piggyback, ONCE, 1 dose, On Radha 03/15/24 at 1330, Total dose = 30 gm Dispensed as [...] Infusion duration = 1.7 hours Rate Change 03/15/2024 2:20 PM EDT 335 mL/hr Rate Change 03/15/2024 2:00 PM EDT 167 mL/hr Rate Change 03/15/2024 1:45 PM EDT 84 mL/hr documented in this encounter Advance Directives Documents on File Type Date Recorded Patient Oil Well Services Supervisor Expl anation Power of Traffic Monitor Specialist 12/12/2018 8:46 AM Vipin viverso Power of Traffic Monitor Specialist Power of Traffic Monitor Specialist 12/12/2018 8:45 AM Zuleyma ferguson Power of Traffic Monitor Specialist Latest Code Status on File Code [...] the patient have Health Care Power of Traffic Monitor Specialist? Yes, not currently available Full Code 11/21/2018 8:53 AM 11/21/2018 2:27 PM This or bull reflects the patients wishes and were consensually agreed upon. Care Teams Back Roller Relationship Specialty Start Date End Date Kulwinder Byers MD [address] [address] PCP - General 06/28/03 documented as of this encounter
--- OUTSIDE RECORDS SUMMARY | 2024-03-19 07:01 | External Medical Summary | Summary of Care ---
Author Name Unknown Organization [facility] [address] [facility] [place] [address] Phone [phone] Care Team Providers Care Ceramics Machine Operator Name Role Phone Kulwinder Byers MD Primary Care Provider Reason for Visit * Reason Onset Date Comments Advice 03/14/2024 Encounter Details Date Type Department Care Team (Late st Contact Info) Description 03/14/2024 Telephone Hematology/Oncology [facility] [place] [address] [place] [address] Jorge Allen MD [address] [place] [address] Advice Allergies Active Allergy Reactions Criticality Noted [...] 30 Tab 0 12/25/2018 Active nystatin (NYSTOP) 990528 UNIT/GM powder Apply topically to affected area [...] Telephone Encounter - Love Quick RN - 03/14/2024 2:58 PM EDT Had left message previously for patients daughter that it was ok to have lab work 1 hour prior to treatment, but had not gotten to document/ have this scheduled. Noted that this is now scheduled. * Telephone Encounter - Omayra Jiménez OSA [...] clinic. Please call daughter Meghana back at [phone]. TY! documented in this encounter Plan of Treatment Upcoming Encounters Date Type Department Care Team (Late st Contact Info) Description 03/15/2024 11:30 AM EDT Laboratory Laboratory [facility] [place] [place] [address] [place] [phone] Matt [address] [facility] [place] [address] 03/15/2024 12:30 PM EDT Hem/Onc Treatment Hematology/Oncology Treatment, [place] [address] [place] [phone] Ritu, Chair 7 Hem Onc [facility] 200 [facility] [place] [address] 03/30/2024 2:15 PM EDT [facility] [place] 200 [facility] [place] [phone] Jorge Allen MD 200 [facility] [place] [address] Health Maintenance Due Date Last Done Comments [...] this encounter Medical Devices Implanted Type Area Golf Club Head Inspector Device Identifier Shelf Expiration Date Model / Serial / Lot Screw Elbow Humeral Total - [id number] Implanted:Qty: 1 on 12/23/2018 by Gautam Jasso MD [place] [facility] [place]: Upper Arm [employer]I [employer] 09/13/20278400-090 - / / [id number] Deisi Nexel Total Elbow Implanted:Qty: 1 on 12/23/2018 by Gautam Jasso MD at [place] [facility] [place] Right: Upper Arm 04/13/2023-095 -00 / / [id number] Cement Antibiotic Bone - [id number] Implanted:Qty: 1 on 12/23/2018 by Gautam Jasso MD at [place] [facility] [place] Right: Upper Arm RENY : ORTHOPAEDICS 05/13/2020 6197-9-010 / / [id number] Cement Antibiotic Bone - [id number] Implanted:Qty: 1 on 12/23/2018 by Gautam Jasso MD at [place] [facility] [place] Right: Upper Arm RENY : ORTHOPAEDICS 05/13/2020 6197-9-010 / / [id number] Stem Compr Srs Mod 1d761um - [id number] Implanted:Qty: 1 on 12/23/2018 by Gautam Jasso MD at [place] [facility] [place] Right: Upper Arm BIOMET : TRAUMA 01/28/2027 [id number] / / [id number] Deisi Nexel Total Elbow Ulnar Component Implanted:Qty: 1 on 12/23/2018 by Gautam Jasso MD at [place] [facility] [place] Right: Upper Arm 07/14/20258400-025 -07 / / [id number] Comprehensive Srs/Nexel Distal Body Implanted:Qty: 1 on 12/23/2018 by Gautam Jasso MD at [place] [facility] [place] Right: Upper Arm 03/03/2028 [id number] / / [id number] Valve Ricky 3 Ultra 26mm - [id number] Implanted:Qty: 1 on 05/27/2022 by Jesús Weber MD at [facility] [place] [employer] [id number] 03/17/2023 [id number] / / Port Implant W/8f Poly Cath - [id number] Implanted:Qty: 1 on 12/29/2022 by Sudhir Lovett DO at OR [facility] Right: Chest CR BARD : PERIPHERAL VASCULAR [id number] 02/12/2024 [id number] / / [id number] documented as of this encounter Advance Directives Documents on File Type Date Recorded Patient Dry Transfer Man Expl anation Power of Maintenance Supervisor 12/12/2018 8:46 AM Vipin viveros Power of Maintenance Supervisor Power of Maintenance Supervisor 12/12/2018 8:45 AM Zuleyma ferguson Power of Maintenance Supervisor Latest Code Status on File Code [...] patient have Health Care Power of Maintenance Supervisor? Yes, not currently available Full Code 11/21/2018 8:53 AM 11/21/2018 2:27 PM This or bull reflects the patients wishes and were consensually agreed upon. Care Teams Ceramics Machine Operator Relationship Specialty Start Date End Date Kulwinder Byers MD [address] [address] PCP - General 06/28/03 documented as of this encounter
--- OUTSIDE RECORDS SUMMARY | 2024-03-19 07:02 | External Medical Summary | Summary of Care ---
Author Name Unknown Organization [facility] [address] [facility] [address] Phone [phone] Care Team Providers Care Construction Economist Name Role Phone Kulwinder Byers MD Primary Care Provider Reason for Visit * Reason Onset Date Comments Medication Refill 03/07/2024 Encounter Details Date Type Department Care Team (Late st Contact Info) Description 03/07/2024 Refill Pharmacy Call Center [phone] [place] [address] Jorge Allen MD 200 [place] [address] Multiple myeloma not having achieved remission (HCC); Cancer related pain Allergies Active Allergy Reactions Criticality Noted Date Comments Adhesive Tape 05/28/2003 documented as of this encounter (statuses as of 03/08/2024) Medications Medication Sig Dispensed Refills Start Date [...] 30 Tab 0 12/25/2018 Active nystatin (NYSTOP) 506615 UNIT/GM powder Apply topically to affected area [...] Pain, Breakthrough. 60 Tablet 0 03/08/2024 Active oxyCODONE HCl 5 MG Oral Tablet (Oxy IR)Indications:Mul tiple myeloma not having achieved remission (HCC),Cancer related pain Take 1 Tablet by mouth every 6 hours as needed for Pain, Breakthrough. 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 * Telephone Encounter - Concha Cochran LPN - 03/08/2024 8:04 AM EDTPending Prescriptions: Disp Refills oxyCODONE HCl 5 MG Oral Tablet (Oxy IR) 60 Tab*0 Sig: Take 1 Tablet by mouth every 6 hours as needed for Pain, Breakthrough. * Telephone Encounter - Concha Cochran LPN - 03/08/2024 7:57 AM EDT Refill request for Oxycodone Hcl 5 mg tabs pended below: Last Refill: 02/06/2024 PDMP Search completed, request appropriate. Last seen: 12/09/2023 "She will continue oxycodone for the symptomatic treatment of hip pain." Next Appt.:03/12/2024 * Telephone Encounter - Yomaira Tavares, production control specialist - 03/07/2024 4:30 PM EDT Patient is up to date for office visits. Pending Prescriptions: Disp Refills oxyCODONE HCl 5 MG Oral Tablet (Oxy IR) 60 Tab*0 Sig: Take 1 Tablet by mouth every 6 hours as needed for Pain, Breakthrough. Last Visit: Visit date not found (in office), Visit date not found (telemedicine) Next Visit: Visit date not found If no future appointments scheduled, and last appointment is greater than a year ago, please schedule patient for a follow-up appointment Last date the medication was ordered: 02/06/24 Pharmacy: [id number] [address] [facility] Is this request for a controlled substance?Yes, and Urine Drug Screen was NOT completed Urine Drug Screen:No results found. However, due to the size of the patient record, not all encounters were searched. Please check Results Review for a complete set of results. Patient Phone Numbers Labs: Lab Results Component Value Date/Time CREAT 0.9 03/01/2024 12:44 PM CREAT 0.9 12/11/2020 09:50 AM POTASSIUM 3.7 03/01/2024 12:44 PM POTASSIUM 3.9 12/11/2020 09:50 AM TSH 1.13 10/08/2022 11:49 AM TSH 1.78 06/13/2020 03:25 PM LDLCALC 49 10/19/2023 03:25 PM LDLDIRECT 56 06/13/2020 03:25 PM ALT 13 03/01/2024 12:44 PM ALT 13 12/11/2020 09:50 AM HGBA1C 6.4 (H) 10/19/2023 03:25 PM HGBA1C 6.3 (H) 12/11/2020 09:50 AM documented in this encounter Plan of Treatment Upcoming Encounters Date Type Department Care Team (Late st Contact Info) Description 03/12/2024 10:10 AM EDT Laboratory Laboratory [place] [address] [phone] Matt [place] [address] [place] [address] [address] 03/12/2024 11:00 AM EDT Hem/Onc Treatment Hematology/Oncology Treatment, [place] [address] [place] [phone] Ritu, Chair 9 Hem Onc [facility] [address] [facility] [place] [address] 03/12/2024 3:00 PM EDT Office Visit Hematology/Oncology [facility] [place] [address] [facility] [place] [phone] Mariana Florez CRNP [address] [facility] [place] [address] Health Maintenance Due Date Last Done [...] this encounter Medical Devices Implanted Type Area Slot Service Specialist Device Identifier Shelf Expiration Date Model / Serial / Lot Screw Elbow Humeral Total - [id number] Implanted:Qty: 1 on 12/23/2018 by Gautam Jasso MD at [place] [facility] [place] Right: Upper Arm [employer] 09/13/2027-0 - / / [id number] Deisi Nexel Total Elbow Implanted:Qty: 1 on 12/23/2018 by Gautam Jasso MD at OR [facility] [place] Right: Upper Arm 04/13/2023 / / [id number] Cement Antibiotic Bone - [id number] Implanted:Qty: 1 on 12/23/2018 by Gautam Jasso MD at OR [facility] [place] Right: Upper Arm RENY : ORTHOPAEDICS 05/13/2020 6197-9-010 / / [id number] Cement Antibiotic Bone - [id number] Implanted:Qty: 1 on 12/23/2018 by Gautam Jasso MD at OR [facility] [place] Right: Upper Arm RENY : ORTHOPAEDICS 05/13/2020 6197-9-010 / / [id number] Stem Compr Srs Mod 1u131xh - [id number] Implanted:Qty: 1 on 12/23/2018 by Gautam Jasso MD at OR [facility] [place] Right: Upper Arm BIOMET : TRAUMA 01/28/2027 [id number] / / [id number] Deisi Nexel Total Elbow Ulnar Component Implanted:Qty: 1 on 12/23/2018 by Gautam Jasso MD at OR [facility] [place] Right: Upper Arm 07/14/202500-025 -07 / / [id number] Comprehensive Srs/Nexel Distal Body Implanted:Qty: 1 on 12/23/2018 by Gautam Jasso MD at OR [facility] [place] Right: Upper Arm 03/03/2028 [id number] / / [id number] Valve Ricky 3 Ultra 26mm - [id number] Implanted:Qty: 1 on 05/27/2022 by Jesús Weber MD at [facility]ARDI[facility]S [facility] [employer] [id number] 03/17/2023 [id number] / / Port Implant W/8f Poly Cath - [id number] Implanted:Qty: 1 on 12/29/2022 by Sudhir Lovett DO at OR [facility] Right: Chest CR BARD : PERIPHERAL VASCULAR [id number] 02/12/2024 [id number] / / [id number] documented as of this encounter Visit Diagnoses Diagnosis Multiple myeloma not having achieved remission (HCC) Multiple myeloma, without mention of having achieved remission Cancer related pain Neoplasm related pain (acute) (chronic) documented in this encounter Advance Directives Documents on File Type Date Recorded Patient Road Design Draftsperson Expl anation Power of Die Cutter Operator 12/12/2018 8:46 AM Vipin viveros Power of Die Cutter Operator Power of Die Cutter Operator 12/12/2018 8:45 AM Zuleyma ferguson Power of Die Cutter Operator Latest Code Status on File Code [...] the patient have Health Care Power of Die Cutter Operator? Yes, not currently available Full Code 11/21/2018 8:53 AM 11/21/2018 2:27 PM This or bull reflects the patients wishes and were consensually agreed upon. Care Teams Construction Economist Relationship Specialty Start Date End Date Kulwinder Byers MD [address] [place] [address] PCP - General 06/28/03 documented as of this encounter
--- OUTSIDE RECORDS SUMMARY | 2024-03-19 07:02 | External Medical Summary | Summary of Care ---
Author Name Unknown Organization [facility] [address] [facility] [address] Phone [phone] Care Team Providers Care Training Analyst Name Role Phone Kulwinder Byers MD Primary Care Provider [phone] Reason for Visit * Reason Onset Date Comments Medication Refill 03/07/2024 Encounter Details Date Type Department Care Team (Late st Contact Info) Description 03/07/2024 Refill Pharmacy Call Center [phone] [place] [address] Alondra Allen MD 200 [place] [address] Multiple myeloma not having achieved remission (HCC); Cancer related pain Allergies Active Allergy Reactions Criticality Noted Date Comments Adhesive Tape 05/28/2003 documented as of this encounter (statuses as of 03/09/2024) Medications Medication Sig Dispensed Refills Start Date [...] 30 Tab 0 12/25/2018 Active nystatin (NYSTOP) 690104 UNIT/GM powder Apply topically to affected area [...] as of this encounter (statuses as of 03/09/2024) Active Problems Problem Noted Date Diagnosed Date [...] as of this encounter (statuses as of 03/09/2024) Resolved Problems Problem Noted Date Diagnosed Date 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 Aortic valve stenosis 2021 documented as of this encounter (statuses as of 03/09/2024) Social History Tobacco Use Types Packs/Day Years [...] encounter Miscellaneous Notes * Telephone Encounter - Concha Cochran LPN - 03/09/2024 8:14 AM EDTSigned Prescriptions: Disp Refills oxyCODONE HCl 5 MG Oral Tablet (Oxy IR) 60 Tab*0 Sig: Take 1 Tablet by mouth every 6 hours as needed for Pain, Breakthrough.Authorizing Provider: ALONDRA ALLEN--- * Telephone Encounter - Alondra Allen MD - 03/08/2024 8:16 AM EDT [...] Appt.:03/12/2024 * Telephone Encounter - Yomaira Tavares, social sciences department chair - 03/07/2024 4:30 PM EDT Patient is [...] the medication was ordered: 02/06/24 Pharmacy: [id number] [address] [facility] Is this request for a controlled substance?Yes, [...] Description 03/12/2024 10:10 AM EDT Laboratory Laboratory [address] [place] [phone] Ritu, Lab [address] [place] [address] 03/12/2024 11:00 AM EDT Hem/Onc Treatment Hematology/Oncology Treatment, [address] [place] [phone] Ritu, Chair 9 Hem Onc [address] [place] [address] 03/12/2024 3:00 PM EDT Office Visit Hematology/Oncology [address] [place] [phone] Mariana Florez CRNP 400 [facility] [place] [address] Health Maintenance [...] this encounter Medical Devices Implanted Type Area Claims Administrator Device Identifier Shelf Expiration Date Model / Serial / Lot Screw Elbow Humeral Total - [id number] Implanted:Qty: 1 on 12/23/2018 by Gautam Jasso MD at [place] [facility] [place] Right: Upper Arm [employer] 09/13/20278400-090 -00 / / [id number] Deisi Nexel Total Elbow Implanted:Qty: 1 on 12/23/2018 by Gautam Jasso MD at [place] [facility] [place] Right: Upper Arm 04/13/20238400-095 -00 / / [id number] Cement Antibiotic Bone - [id number] Implanted:Qty: 1 on 12/23/2018 by Gautam Jasso MD at [place] [facility] [place] Right: Upper Arm RENY : ORTHOPAEDICS 05/13/2020 6197-9-010 / / [id number] Cement Antibiotic Bone - [id number] Implanted:Qty: 1 on 12/23/2018 by Gautam Jasso MD at [place] [facility] [place] Right: Upper Arm RENY : ORTHOPAEDICS 05/13/2020 6197-9-010 / / [id number] Stem Compr Srs Mod 6o724ss - [id number] Implanted:Qty: 1 on 12/23/2018 by Gautam Jasso MD at [place] [facility] [place] Right: Upper Arm BIOMET : TRAUMA 01/28/2027 [id number] / / [id number] Deisi Nexel Total Elbow Ulnar Component Implanted:Qty: 1 on 12/23/2018 by Gautam Jasso MD at [place] [facility] [place] Right: Upper Arm 07/14/20258400-025 -07 / / [id number] Comprehensive Srs/Nexel Distal Body Implanted:Qty: 1 on 12/23/2018 by Gautam Jasso MD at [place] [facility] [place] Right: Upper Arm 03/03/2028 [id number] / / [id number] Valve Ricky 3 Ultra 26mm - [id number] Implanted:Qty: 1 on 05/27/2022 by Jesús Weber MD at [facility]ARDI[facility] LABS [facility] [place] [employer] [id number] 03/17/2023 [id number] / / Port Implant W/8f Poly Cath - [id number] Implanted:Qty: 1 on 12/29/2022 by Sudhir Lovett DO at OR [facility] Right: Chest CR BARD : PERIPHERAL VASCULAR [id number] 02/12/2024 [id number] / / [id number] documented as of this encounter Visit Diagnoses Diagnosis Multiple myeloma not having achieved remission (HCC) Multiple myeloma, without mention of having achieved remission Cancer related pain Neoplasm related pain (acute) (chronic) documented in this encounter Advance Directives Documents on File Type Date Recorded 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 Yes, not currently available Full Code 11/21/2018 8:53 AM 11/21/2018 2:27 PM This or bull reflects the patients wishes and were consensually agreed upon. Care Teams Training Analyst Relationship Specialty Start Date End Date Kulwinder Byers MD [address] [place] [address] PCP - General 06/28/03 documented as of this encounter
--- OUTSIDE RECORDS SUMMARY | 2024-03-19 07:02 | External Medical Summary | Summary of Care ---
Author Name Unknown Organization [facility] [address] [facility] [place] [address] Phone [phone] Care Team Providers Care Photo Intern Name Role Phone Kulwinder Byers MD Primary Care Provider Encounter Details Date Type Department Care Team (Late st Contact Info) Description 03/02/2024 Telephone [facility]ology[facility]cology [facility] [address] [place] [phone] Jorge Allen MD 200 [facility] [place] [address] Allergies Active Allergy Reactions Criticality Noted Date Comments Adhesive Tape 05/28/2003 documented as of this encounter (statuses as of 03/07/2024) Medications Medication Sig Dispensed Refills Start Date [...] 30 Tab 0 12/25/2018 Active nystatin (NYSTOP) 046759 UNIT/GM powder Apply topically to affected area [...] for Pain, Breakthrough. 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 Patient usually has labs drawn day prior at home, but since treatment is on a Tuesday they will needto be drawn here day of treatment. 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 nursing Scheduling- we will call her next week some time per her request documented in this encounter Plan of Treatment Upcoming Encounters Date Type Department Care Team (Late st Contact Info) Description 03/12/2024 10:10 AM EDT Laboratory Laboratory [place] [address] [place] [phone] Matt Chaney [address] [place] [address] 03/12/2024 11:00 AM EDT Hem/Onc Treatment Hematology/Oncology Treatment, [place] [address] [place] [phone] Ritu, Chair 9 Hem Onc [facility] 200 [facility] [place] [address] 03/12/2024 3:00 PM EDT [facility] 200 [facility] [place] [phone] Lorrie Florez CRNP 400 [facility] [place] [phone] Health Maintenance Due Date Last Done Comments [...] this encounter Medical Devices Implanted Type Area Pricing Director Device Identifier Shelf Expiration Date Model / Serial / Lot Screw Elbow Humeral Total - [id number] Implanted:Qty: 1 on 12/23/2018 by Gautam Jasso [place] [facility] [place]: Upper Arm [employer] 09/13/202700-090 - / / [id number] Deisi Nexel Total Elbow Implanted:Qty: 1 on 12/23/2018 by Gautam Jasso MD [place] [facility] [place]: Upper Arm 04/13/2023-095 -00 / / [id number] Cement Antibiotic Bone - [id number] Implanted:Qty: 1 on 12/23/2018 by Gautam Jasso [place] [facility] [place]: Upper Arm RENY : ORTHOPAEDICS 05/13/2020 6197-9-010 / / [id number] Cement Antibiotic Bone - [id number] Implanted:Qty: 1 on 12/23/2018 by Gautam Jasso [place] [facility] [place]: Upper Arm RENY : ORTHOPAEDICS 05/13/2020 6197-9-010 / / [id number] Stem Compr Srs Mod 5k790ex - [id number] Implanted:Qty: 1 on 12/23/2018 by Gautam Jasso MD [place] [facility] [place]: Upper Arm BIOMET : TRAUMA 01/28/2027 [id number] / / [id number] Deisi Nexel Total Elbow Ulnar Component Implanted:Qty: 1 on 12/23/2018 by Gautam Jasso MD [place] [facility] [place]: Upper Arm 07/14/202500-025 -07 / / [id number] Comprehensive Srs/Nexel Distal Body Implanted:Qty: 1 on 12/23/2018 by Gautam Jasso MD [place] [facility] [place]: Upper Arm 03/03/2028 [id number] / / [id number] Valve Ricky 3 Ultra 26mm - [id number] Implanted:Qty: 1 on 05/27/2022 by Jesús Weber MD [place] [facility] [employer] [id number] 03/17/2023 [id number] / / Port Implant W/8f Poly Cath - [id number] Implanted:Qty: 1 on 12/29/2022 by Sudhir Lovett DO at OR [facility] Right: Chest CR BARD : PERIPHERAL VASCULAR [id number] 02/12/2024 [id number] / / [id number] documented as of this encounter Advance Directives Documents on File Type Date Recorded Patient Program Lead Expl anation Power of Classified Advertising Clerk 12/12/2018 8:46 AM Vipin viveros Power of Classified Advertising Clerk Power of Classified Advertising Clerk 12/12/2018 8:45 AM Zuleyma ferguson Power of Classified Advertising Clerk Latest Code Status on File Code [...] the patient have Health Care Power of Classified Advertising Clerk? Yes, not currently available Full Code 11/21/2018 8:53 AM 11/21/2018 2:27 PM This or bull reflects the patients wishes and were consensually agreed upon. Care Teams Photo Intern Relationship Specialty Start Date End Date Kulwinder Byers MD [address] [address] PCP - General 06/28/03 documented as of this encounter
--- OUTSIDE RECORDS SUMMARY | 2024-03-19 07:02 | External Medical Summary | Summary of Care ---
Author Name Unknown Organization [facility] Address [address] [facility] [place] [address] Phone [phone] Care Team Providers Care Digital Traffic Coordinator Name Role Phone Kulwinder Byers MD Primary Care Provider Encounter Details Date Type Department Care Team (Late st Contact Info) Description 02/28/2024 Orders Only Hematology/Oncology, [facility] [address] [place] [address] Cate Graham MD [address] [place] [address] Allergies Active Allergy Reactions Criticality Noted Date Comments Adhesive Tape 05/28/2003 documented as of this encounter (statuses as of 03/06/2024) Medications Medication Sig Dispensed Refills Start Date [...] 30 Tab 0 12/25/2018 Active nystatin (NYSTOP) 157693 UNIT/GM powder Apply topically to affected area [...] as of this encounter (statuses as of 03/06/2024) Active Problems Problem Noted Date Diagnosed Date [...] as of this encounter (statuses as of 03/06/2024) Resolved Problems Problem Noted Date Diagnosed Date 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 Aortic valve stenosis 2021 documented as of this encounter (statuses as of 03/06/2024) Social History Tobacco Use Types Packs/Day Years [...] Description 03/12/2024 10:10 AM EDT Laboratory Laboratory [facility] [place] [address] [place] [phone] Ritu, Lab [facility] [address] [facility] [place] [address] 03/12/2024 11:00 AM EDT Hem/Onc Treatment Hematology/Oncology Treatment, [place] [address] [place] [phone] Ritu, Chair 9 Hem Onc [facility] [address] [facility] [place] [address] 03/12/2024 3:00 PM EDT Office Visit Hematology/Oncology [facility] [address] [place] [phone] Mariana Florez, JORGE [address] [facility] [place] [address] Health [...] encounter Medical Devices Implanted Type Area Cement Mason Maintenance Device Identifier Shelf Expiration Date Model / Serial / Lot Screw Elbow Humeral Total - [id number] Implanted:Qty: 1 on 12/23/2018 by Gautam Jasso MD at OR [facility] [place] Right: Upper Arm [employer] 09/13/2027-090 - / / [id number] Deisi Nexel Total Elbow Implanted:Qty: 1 on 12/23/2018 by Gautam Jasso MD at OR [facility] [place] Right: Upper Arm 04/13/2023 - / / [id number] Cement Antibiotic Bone - [id number] Implanted:Qty: 1 on 12/23/2018 by Gautam Jasso MD at OR [facility] [place] Right: Upper Arm RENY : ORTHOPAEDICS 05/13/2020 6197-9-010 / / [id number] Cement Antibiotic Bone - [id number] Implanted:Qty: 1 on 12/23/2018 by Gautam Jasso MD at OR [facility] [place] Right: Upper Arm RENY : ORTHOPAEDICS 05/13/2020 6197-9-010 / / [id number] Stem Compr Srs Mod [id number] - [id number] Implanted:Qty: 1 on 12/23/2018 by Gautam Jasso MD at OR [facility] [place] Right: Upper Arm BIOMET : TRAUMA 01/28/2027 [id number] / / [id number] Deisi Nexel Total Elbow Ulnar Component Implanted:Qty: 1 on 12/23/2018 by Gautam Jasso MD at OR [facility] [place] Right: Upper Arm 07/14/2025-025 -07 / / [id number] Comprehensive Srs/Nexel Distal Body Implanted:Qty: 1 on 12/23/2018 by aGutam Jasso MD at OR [facility] [place] Right: Upper Arm 03/03/2028 [id number] / / [id number] Valve Ricky 3 Ultra 26mm - [id number] Implanted:Qty: 1 on 05/27/2022 by Jesús Weber MD at [facility]ARD[facility]S [facility] [place] [employer] [id number] 03/17/2023 [id number] / / Port Implant W/8f Poly Cath - [id number] Implanted:Qty: 1 on 12/29/2022 by Sudhir Lovett DO at OR [facility] Right: Chest CR BARD : PERIPHERAL VASCULAR [id number] 02/12/2024 [id number] / / [id number] documented as of this encounter Advance Directives Documents on File Type Date Recorded 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 Yes, not currently available Full Code 11/21/2018 8:53 AM 11/21/2018 2:27 PM This or bull reflects the patients wishes and were consensually agreed upon. Care Teams Digital Traffic Coordinator Relationship Specialty Start Date End Date Kulwinder Byers MD [address] [place] [address] PCP - General 06/28/03 documented as of this encounter
--- OUTSIDE RECORDS SUMMARY | 2024-03-19 07:02 | External Medical Summary | Summary of Care ---
Author Name Unknown Organization [facility] [address] [facility] [place] [address] Phone [phone] Care Team Providers Care Speech Teacher Name Role Phone Kulwinder Byers MD Primary Care Provider Encounter Details Date Type Department Care Team (Late st Contact Info) Description 03/02/2024 Telephone Hematology/Oncology [facility] [address] [place] [phone] Jorge Allen MD 200 [facility] [place] [address] Allergies Active Allergy Reactions Criticality Noted Date [...] 30 Tab 0 12/25/2018 Active nystatin (NYSTOP) 510236 UNIT/GM powder Apply topically to affected area [...] Telephone Encounter - Katie Craft OSA - 03/07/2024 8:16 AM EDT Pt is aware of the labs * Telephone Encounter - Katie Craft OSA [...] Description 03/12/2024 10:10 AM EDT Laboratory Laboratory [facility] [place] [address] [place] [phone] Ritu, Lab [facility] [address] [facility] [place] [address] 03/12/2024 11:00 AM EDT Hem/Onc Treatment Hematology/Oncology Treatment, [place] [facility] [place] [phone] Ritu, Chair 9 Hem Onc [facility] [address] [facility] [place] [address] 03/12/2024 3:00 PM EDT Office Visit Hematology/Oncology [facility] [place] [address] [place] [phone] Lorrie Florez CRNP [address] [facility] [address] Health Maintenance Due Date Last Done Comments [...] this encounter Medical Devices Implanted Type Area Hospice Home Health Aide Device Identifier Shelf Expiration Date Model / Serial / Lot Screw Elbow Humeral Total - [id number] Implanted:Qty: 1 on 12/23/2018 by Gautam Jasso MD at [place] [facility] Right: Upper Arm [employer] 09/13/2027 / / [id number] Deisi Nexel Total Elbow Implanted:Qty: 1 on 12/23/2018 by Gautam Jasso MD at [place] [facility] Right: Upper Arm 04/13/2023 / / [id number] Cement Antibiotic Bone - [id number] Implanted:Qty: 1 on 12/23/2018 by Gautam Jasso MD at [place] [facility] Right: Upper Arm RENY : ORTHOPAEDICS 05/13/2020 6197-9-010 / / [id number] Cement Antibiotic Bone - [id number] Implanted:Qty: 1 on 12/23/2018 by Gautam Jasso MD at [place] [facility] Right: Upper Arm RENY : ORTHOPAEDICS 05/13/2020 6197-9-010 / / [id number] Stem Compr Srs Mod 2u740tn - [id number] Implanted:Qty: 1 on 12/23/2018 by Gautam Jasso MD at [place] [facility] Right: Upper Arm BI[employer] : TRAUMA 01/28/2027 [id number] / / [id number] Deisi Nexel Total Elbow Ulnar Component Implanted:Qty: 1 on 12/23/2018 by Gautam Jasso MD at [place] [facility] Right: Upper Arm 07/14/202500-025 -07 / / [id number] Comprehensive Srs/Nexel Distal Body Implanted:Qty: 1 on 12/23/2018 by Gautam Jasso MD at OR [facility] Right: Upper Arm 03/03/2028 [id number] / / [id number] Valve Ricky 3 Ultra 26mm - [id number] Implanted:Qty: 1 on 05/27/2022 by Jesús Weber MD at [facility] [employer] [id number] 03/17/2023 [id number] / / Port Implant W/8f Poly Cath - [id number] Implanted:Qty: 1 on 12/29/2022 by Sudhir Lovett DO at OR [facility] Right: Chest CR BARD : PERIPHERAL VASCULAR [id number] 02/12/2024 [id number] / / [id number] documented as of this encounter Advance Directives Documents on File Type Date Recorded Patient Technician Support Association Expl anation Power of Fish And Wildlife Warden 12/12/2018 8:46 AM Yungt hcare Power of Fish And Wildlife Warden Power of Fish And Wildlife Warden 12/12/2018 8:45 AM Zuleyma ferguson Power of Fish And Wildlife Warden Latest Code Status on File Code Status [...] the patient have Health Care Power of Fish And Wildlife Warden? Yes, not currently available Full Code 11/21/2018 8:53 AM 11/21/2018 2:27 PM This or bull reflects the patients wishes and were consensually agreed upon. Care Teams Speech Teacher Relationship Specialty Start Date End Date Kulwinder Byers MD [address] [address] PCP - General 06/28/03 documented as of this encounter
--- OUTSIDE RECORDS SUMMARY | 2024-03-19 07:02 | External Medical Summary | Summary of Care ---
Author Name Unknown Organization [facility] Address [address] [place] [place] [address] Phone [phone] Care Team Providers Care Debt Recovery Officer Name Role Phone Kulwinder Byers MD Primary Care Provider Encounter Details Date Type Department Care Team (Late st Contact Info) Description 02/28/2024 Orders Only Hematology/Oncology, [facility] [address] [place] [address] Cate Graham MD [address] [place] [address] Allergies Active Allergy Reactions Criticality [...] 30 Tab 0 12/25/2018 Active nystatin (NYSTOP) 510156 UNIT/GM powder Apply topically to affected area [...] Description 03/12/2024 10:10 AM EDT Laboratory Laboratory [facility] [place] [address] [place] [phone] Ritu, Lab [facility] [address] [facility] [place] [address] 03/12/2024 11:00 AM EDT Hem/Onc Treatment Hematology/Oncology Treatment, [place] [address] [place] [phone] Ritu, Chair 9 Hem Onc [facility] [address] [facility] [place] [address] 03/12/2024 3:00 PM EDT Office Visit Hematology/Oncology [facility] [place] [address] [place] [phone] Mariana Florez, JORGE [address] [facility] [place] [address] Health Maintenance [...] this encounter Medical Devices Implanted Type Area Food Technician Device Identifier Shelf Expiration Date Model / Serial / Lot Screw Elbow Humeral Total - [id number] Implanted:Qty: 1 on 12/23/2018 by Gautam Jasso MD at OR [facility] [place] Right: Upper Arm [employer] 09/13/2027-090 - / / [id number] Deisi Nexel Total Elbow Implanted:Qty: 1 on 12/23/2018 by Gautam Jasso MD at OR [facility] Right: Upper Arm 04/13/2023 - / / [id number] Cement Antibiotic Bone - [id number] Implanted:Qty: 1 on 12/23/2018 by Gautam Jasso MD at OR [facility] Right: Upper Arm RENY : ORTHOPAEDICS 05/13/2020 6197-9-010 / / [id number] Cement Antibiotic Bone - [id number] Implanted:Qty: 1 on 12/23/2018 by Gautam Jasso MD at OR [facility] [facility] Right: Upper Arm RENY : ORTHOPAEDICS 05/13/2020 6197-9-010 / / [id number] Stem Compr Srs Mod [id number] - [id number] Implanted:Qty: 1 on 12/23/2018 by Gautam Jasso MD at OR [facility] [facility] Right: Upper Arm BIOMET : TRAUMA 01/28/2027 [id number] / / [id number] Deisi Nexel Total Elbow Ulnar Component Implanted:Qty: 1 on 12/23/2018 by Gautam Jasso MD at OR [facility] [facility] Right: Upper Arm 07/14/2025-025 -07 / / [id number] Comprehensive Srs/Nexel Distal Body Implanted:Qty: 1 on 12/23/2018 by Gautam Jasso MD at OR [facility] [facility] Right: Upper Arm 03/03/2028 [id number] / / [id number] Valve Ricky 3 Ultra 26mm - [id number] Implanted:Qty: 1 on 05/27/2022 by Jesús Weber MD at [facility]S [facility] [employer] [id number] 03/17/2023 [id number] / / Port Implant W/8f Poly Cath - [id number] Implanted:Qty: 1 on 12/29/2022 by Sudhir Lovett DO at OR [facility] Right: Chest CR BARD : PERIPHERAL VASCULAR [id number] 02/12/2024 [id number] / / [id number] documented as of this encounter Advance Directives Documents on File Type Date Recorded Patient Paper Goods Machine Operator Expl anation Power of Check Processing Clerk 12/12/2018 8:46 AM Vipin viveros Power of Check Processing Clerk Power of Check Processing Clerk 12/12/2018 8:45 AM Zuleyma ferguson Power of Check Processing Clerk Latest Code Status on File Code [...] the patient have Health Care Power of Check Processing Clerk? Yes, not currently available Full Code 11/21/2018 8:53 AM 11/21/2018 2:27 PM This or bull reflects the patients wishes and were consensually agreed upon. Care Teams Debt Recovery Officer Relationship Specialty Start Date End Date Kulwinder Byers MD [address] [place] [address] PCP - General 06/28/03 documented as of this encounter
--- OUTSIDE RECORDS SUMMARY | 2024-03-19 07:02 | External Medical Summary | Summary of Care ---
Author Name Unknown Organization [facility] Address [address] [facility] [place] [address] Phone [phone] Care Team Providers Care Acupuncturist Name Role Phone Kulwinder Byers MD Primary Care Provider Encounter Details Date Type Department Care Team (Late st Contact Info) Description 03/02/2024 Telephone Hematology/Oncology [facility] [address] [place] [phone] Jorge Allen MD 200 [facility] [place] [address] Allergies Active Allergy Reactions Criticality Noted Date [...] 30 Tab 0 12/25/2018 Active nystatin (NYSTOP) 901979 UNIT/GM powder Apply topically to affected area [...] [place] [address] [place] [phone] Matt Chaney [address] [place] [address] 03/12/2024 11:00 AM EDT Hem/Onc Treatment Hematology/Oncology Treatment, [place] [address] [place] [phone] Ritu, Chair 9 Hem Onc [facility] 200 [facility] [place] [address] 03/12/2024 3:00 PM EDT [facility] 200 [facility] [place] [phone] Lorrie Florez CRNP 400 [facility] [place] [phone] Health Maintenance Due Date Last Done Comments [...] this encounter Medical Devices Implanted Type Area Green End Department Supervisor Device Identifier Shelf Expiration Date Model / Serial / Lot Screw Elbow Humeral Total - [id number] Implanted:Qty: 1 on 12/23/2018 by Gautam Jasso MD at OR [facility] [place] Right: Upper Arm [employer] 09/13/202700-090 - / / [id number] Deisi Nexel Total Elbow Implanted:Qty: 1 on 12/23/2018 by Gautam Jasso MD at OR [facility] [place] Right: Upper Arm 04/13/2023-095 -00 / / [id number] Cement Antibiotic Bone - [id number] Implanted:Qty: 1 on 12/23/2018 by Gautam Jasso MD at OR [facility] [place] Right: Upper Arm RENY : ORTHOPAEDICS 05/13/2020 6197-9-010 / / [id number] Cement Antibiotic Bone - [id number] Implanted:Qty: 1 on 12/23/2018 by Gautam Jasso MD at OR [facility] [place] Right: Upper Arm RENY : ORTHOPAEDICS 05/13/2020 6197-9-010 / / [id number] Stem Compr Srs Mod [id number] - [id number] Implanted:Qty: 1 on 12/23/2018 by Gautam Jasso MD at OR [facility] [place] Right: Upper Arm BIOMET : TRAUMA 01/28/2027 [id number] / / [id number] Deisi Nexel Total Elbow Ulnar Component Implanted:Qty: 1 on 12/23/2018 by Gautam Jasso MD at OR [facility] [place] Right: Upper Arm 07/14/202500-025 -07 / / [id number] Comprehensive Srs/Nexel Distal Body Implanted:Qty: 1 on 12/23/2018 by Gautam Jasso MD at OR [facility] [place] Right: Upper Arm 03/03/2028 [id number] / / [id number] Valve Ricky 3 Ultra 26mm - [id number] Implanted:Qty: 1 on 05/27/2022 by Jesús Weber MD at [facility] [place] [employer] [id number] 03/17/2023 [id number] / / Port Implant W/8f Poly Cath - [id number] Implanted:Qty: 1 on 12/29/2022 by Sudhir Lovett DO at OR [facility] Right: Chest CR BARD : PERIPHERAL VASCULAR [id number] 02/12/2024 [id number] / / [id number] documented as of this encounter Advance Directives Documents on File Type Date Recorded Patient Glaze Grinder Expl anation Power of Whiting Can Worker 12/12/2018 8:46 AM Vipin viveros Power of Whiting Can Worker Power of Whiting Can Worker 12/12/2018 8:45 AM Zuleyma ferguson Power of Whiting Can Worker Latest Code Status on File Code [...] the patient have Health Care Power of Whiting Can Worker? Yes, not currently available Full Code 11/21/2018 8:53 AM 11/21/2018 2:27 PM This or bull reflects the patients wishes and were consensually agreed upon. Care Teams Acupuncturist Relationship Specialty Start Date End Date Kulwinder Byers MD [address] [address] PCP - General 06/28/03 documented as of this encounter
--- OUTSIDE RECORDS SUMMARY | 2024-03-19 07:03 | External Medical Summary | Summary of Care ---
Author Name Unknown Organization [facility] Address [address] [facility] [place] [address] Phone [phone] Care Team Providers Care Plaster Patternmaker Name Role Phone Kulwinder Byers MD Primary Care Provider Reason for Visit * Reason Comments Outpatient Testing Encounter Details Date Type Department Care Team (Late st Contact Info) Description 03/01/2024 12:50 PM EDT Laboratory Laboratory [facility] [place] [address] [place] [address] Ritu Lab [facility] [address] [facility] [place] [address] Multiple myeloma not having achieved remission (HCC) Allergies Active Allergy Reactions Criticality Noted Date Comments Adhesive Tape 05/28/2003 documented as of this encounter (statuses as of 03/01/2024) Medications Medication Sig Dispensed Refills Start Date [...] 30 Tab 0 12/25/2018 Active nystatin (NYSTOP) 599344 UNIT/GM powder Apply topically to affected area [...] as of this encounter (statuses as of 03/01/2024) Active Problems Problem Noted Date Diagnosed Date [...] as of this encounter (statuses as of 03/01/2024) Resolved Problems Problem Noted Date Diagnosed Date 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 Aortic valve stenosis 2021 documented as of this encounter (statuses as of 03/01/2024) Social History Tobacco Use Types Packs/Day Years [...] Team (Late st Contact Info) Description 03/02/2024 11:45 AM EDT Hem/Onc Treatment Hematology/Oncology Treatment, [place] [address] [place] [address] Ritu, Chair 3 Hem Onc [address] [facility] [place] [address] 03/12/2024 3:00 PM EDT Office Visit Hematology/Oncology [facility] Ritu [place] [address] [facility] [place] [address] Mariana Florez CRNP [address] [place], [place] [id number] Health Maintenance Due Date Last Done Comments [...] encounter Medical Devices Implanted Type Area Director Drug Device Identifier Shelf Expiration Date Model / Serial / Lot Screw Elbow Humeral Total - [id number] Implanted:Qty: 1 on 12/23/2018 [place]am [place] [facility] [place] Upper Arm [employer] 09/13/20278400-090 - / / [id number] Deisi Nexel Total Elbow Implanted:Qty: 1 on 12/23/2018 by Gautam Jasso [place] [facility] [place]: Upper Arm 04/13/2023- / / [id number] Cement Antibiotic Bone - [id number] Implanted:Qty: 1 on 12/23/2018 by Gautam Jasso [place] [facility] [place]: Upper Arm RENY : ORTHOPAEDICS 05/13/2020 6197-9-010 / / [id number] Cement Antibiotic Bone - [id number] Implanted:Qty: 1 on 12/23/2018 by Gautam Jasso [place] [facility] [place] Upper Arm RENY : ORTHOPAEDICS 05/13/2020 6197-9-010 / / [id number] Stem Compr Srs Mod [id number] - [id number] Implanted:Qty: 1 on 12/23/2018 by Gautam Jasso [place] [facility] [place]: Upper Arm BIOMET : TRAUMA 01/28/2027 [id number] / / [id number] Deisi Nexel Total Elbow Ulnar Component Implanted:Qty: 1 on 12/23/2018 by Gautam Jasso [place] [facility] [place]: Upper Arm 07/14/202500-025 - / / [id number] Comprehensive Srs/Nexel Distal Body Implanted:Qty: 1 on 12/23/2018 by Gautam Jasso [place] [facility] [place]: Upper Arm 03/03/2028 [id number] / / [id number] Valve Ricky 3 Ultra 26mm - [id number] Implanted:Qty: 1 on 05/27/2022 by Jesús Weber MD at [place] [facility] [place] [employer] [id number] 03/17/2023 [id number] / / Port Implant W/8f Poly Cath - [id number] Implanted:Qty: 1 on 12/29/2022 by Sudhir Lovett, at OR [facility] Right: Chest CR BARD : PERIPHERAL VASCULAR [id number] 02/12/2024 [id number] / / [id number] documented as of this encounter Procedures Procedure Name Priority Date/Time Associated Diagnosis Comments DIFFERENTIAL, AUTOMATED STAT 03/01/2024 12:44 PM EDT Multiple myeloma not having achieved remission (HCC) COMPREHENSIVE METABOLIC PANEL STAT 03/01/2024 12:44 PM EDT Multiple myeloma not having achieved remission (HCC) CBC STAT 03/01/2024 12:44 PM EDT Multiple myeloma not having achieved remission (HCC) CBC STAT 03/01/2024 12:44 PM EDT Multiple myeloma not having achieved remission (HCC) DIFFERENTIAL, TECHNOLOGIST REVIEW Routine 03/01/2024 12:44 PM EDT Multiple myeloma not having achieved remission (HCC) documented in this encounter Results * DIFFERENTIAL, TECHNOLOGIST REVIEW (03/01/2024 12:44 PM EDT) Pathologist [facility] Emergency Department nRs 03/01/2024 1:38 PM EDT [facility] 56-02 Blood Venous blood specimen / Unknown Venipuncture / Unknown 03/01/2024 12:44 PM EDT 03/01/2024 12:44 PM EDT Jorge Allen MD LAB BLOOD ORDERABLES [facility] [address] [place] [address] * (ABNORMAL) DIFFERENTIAL, AUTOMATED (03/01/2024 12:44 PM EDT) Pathologist [facility] Emergency Department WBC 2.55(L) 4.00 - 10.80 K/uL 03/01/2024 1:38 PM EDT [facility] 56-02 Neutrophils % 74.0 40.0 - 75.0 % 03/01/2024 1:38 PM EDT [facility] 56-02 Lymphocytes % 4.3(L) 18.0 - 42.0 % 03/01/2024 1:38 PM EDT [facility] Monocytes % 13.0(H) 1.0 - 11.0 % 03/01/2024 1:38 PM EDT [facility] Eosinophils % 7.5(H) 0.0 - 6.0 % 03/01/2024 1:38 PM EDT [facility] Basophils % 1.2 0.0 - 2.0 % 03/01/2024 1:38 PM EDT [facility] Absolute Neutrophils 1.87 1.80 - 7.70 K/uL 03/01/2024 1:38 PM EDT [facility] Absolute Lymphocytes 0.11(L) 1.00 - 4.80 K/ul 03/01/2024 1:38 PM EDT [facility] Absolute Monocytes 0.33 0.00 - 1.10 K/uL 03/01/2024 1:38 PM EDT [facility] Absolute Eosinophils 0.19 0.00 - 0.70 K/uL 03/01/2024 1:38 PM EDT [facility] Absolute Basophils 0.03 0.00 - 0.20 K/uL 03/01/2024 1:38 PM EDT [facility] Blood Venous blood specimen / Unknown Venipuncture / Unknown 03/01/2024 12:44 PM EDT 03/01/2024 12:44 PM EDT Jorge Allen MD LAB BLOOD ORDERABLES [facility] [address] [place] [address] * (ABNORMAL) CBC (03/01/2024 12:44 PM EDT) [facility] Signature WBC 2.55(L) 4.00 - 10.80 K/uL 03/01/2024 1:38 PM EDT [facility] RBC 3.60 3.85 - 5.15 M/uL 03/01/2024 1:38 PM EDT [facility] HGB 10.8(L) 12.0 - 15.3 g/dL 03/01/2024 1:38 PM EDT [address] HCT 33.3(L) 36.0 - 45.2 % 03/01/2024 1:38 PM EDT [place] [address] MCV 92.5 81.5 - 97.5 fL 03/01/2024 1:38 PM EDT [address] MCH 30.0 27.0 - 34.0 pg 03/01/2024 1:38 PM EDT [address] MCHC 32.4 32.0 - 36.0 g/dL 03/01/2024 1:38 PM EDT [address] RDW 19.9 11.5 - 15.5 % 03/01/2024 1:38 PM EDT [facility] PLT 92(L) 140 - 400 K/uL 03/01/2024 1:38 PM EDT [address] Comment: Results rechecked. MPV 03/01/2024 1:38 PM EDT [address] Comment:No result - abnormal platelet distribution. Blood Venous blood specimen / Unknown Venipuncture / Unknown 03/01/2024 12:44 PM EDT 03/01/2024 12:44 PM EDT Jorge Allen MD LAB BLOOD ORDERABLES [facility] [address] [place] [address] * (ABNORMAL) COMPREHENSIVE METABOLIC PANEL (03/01/2024 12:44 PM EDT) BUN 18 6 - 20 mg/dL 03/01/2024 1:17 PM EDT [address] Creatinine 0.9 0.5 - 1.0 mg/dL 03/01/2024 1:17 PM EDT [facility] 56 Estimated Glomerular Filtration Rate 63 >=60 mL/min 03/01/2024 1:17 PM EDT [facility] 56 Comment:eGFR is calculated b ased on the CKD-EPI 2020 equation Sodium 138 135 - 146 mmol/L 03/01/2024 1:17 PM EDT [facility] 56 Potassium 3.7 3.5 - 5.1 mmol/L 03/01/2024 1:17 PM EDT [facility] 56 Chloride 100 98 - 107 mmol/L 03/01/2024 1:17 PM EDT [address] CO2 27 22 - 32 mmol/L 03/01/2024 1:17 PM EDT [address] Anion Gap 11 7 - 15 mmol/L 03/01/2024 1:17 PM EDT [address] Glucose 210(H) 70 - 120 mg/dL 03/01/2024 1:17 PM EDT [address] Albumin 3.3(L) 3.8 - 5.0 g/dL 03/01/2024 1:17 PM EDT [address] AST 18 10 - 35 U/L 03/01/2024 1:17 PM EDT [address] Alkaline Phosphatase 70 35 - 130 U/L 03/01/2024 1:17 PM EDT [address] Bilirubin, Total 0.5 <=1.2 mg/dL 03/01/2024 1:17 PM EDT [address] Calcium 8.7 8.4 - 10.2 mg/dL 03/01/2024 1:17 PM EDT [facility] 56 Protein 5.5(L) 6.0 - 8.3 g/dL 03/01/2024 1:17 PM EDT [address] ALT 13 10 - 35 U/L 03/01/2024 1:17 PM EDT [facility] 56 Blood Venous blood specimen / Unknown Venipuncture / Unknown 03/01/2024 12:44 PM EDT 03/01/2024 12:44 PM EDT Jorge Allen MD LAB BLOOD ORDERABLES [facility] [address] [place] [address] documented in this encounter Visit Diagnoses Diagnosis Multiple myeloma not having achieved remission (HCC) Multiple myeloma, without mention of having achieved remission documented in this encounter Advance Directives Documents on File Type Date Recorded Patient Ready To Wear Department Manager Expl anation Power of Orthopedic Mechanic 12/12/2018 8:46 AM Vipin viveros Power of Orthopedic Mechanic Power of Orthopedic Mechanic 12/12/2018 8:45 AM Zuleyma ferguson Power of Orthopedic Mechanic Latest Code Status on File Code [...] the patient have Health Care Power of Orthopedic Mechanic? Yes, not currently available Full Code 11/21/2018 8:53 AM 11/21/2018 2:27 PM This or bull reflects the patients wishes and were consensually agreed upon. Care Teams Plaster Patternmaker Relationship Specialty Start Date End Date Kulwinder Byers MD [address] [address] PCP - General 06/28/03 documented as of this encounter
--- OUTSIDE RECORDS SUMMARY | 2024-03-19 07:03 | External Medical Summary | Summary of Care ---
Author Name Unknown Organization [facility] Address [address] [facility] [place] [address] Phone [phone] Care Team Providers Care Applied Technologist Name Role Phone Kulwinder Byers MD Primary Care Provider Reason for Visit * Reason Comments Outpatient Testing Encounter Details Date Type Department Care Team (Late st Contact Info) Description 03/01/2024 12:50 PM EDT Laboratory Laboratory [facility] [place] [address] [place] [address] Ritu Lab [facility] [address] [facility] [place] [address] Multiple myeloma not having achieved remission (HCC) [...] 30 Tab 0 12/25/2018 Active nystatin (NYSTOP) 515874 UNIT/GM powder Apply topically to affected area [...] 11:45 AM EDT Hem/Onc Treatment Hematology/Oncology Treatment, [place] [address] [place] [address] Ritu, Chair 3 Hem Onc [facility] [address] [facility] [place] [address] 03/12/2024 3:00 PM EDT Office Visit Hematology/Oncology [facility] [place] [address] [facility] [place] [address] Mariana Florez CRNP [address] [place], [place] [phone] Pending Results Name Type Priority Associated Diagnoses Date /Time CBC WITH WBC DIFFERENTIAL Lab STAT Multiple myeloma not having achieved remission (HCC) 03/01/2024 12:44 PM EDT COMPREHENSIVE METABOLIC PANEL Lab STAT Multiple myeloma not having achieved remission (HCC) 03/01/2024 12:44 PM EDT CBC Lab STAT Multiple myeloma not having achieved remission (HCC) 03/01/2024 12:44 PM EDT DIFFERENTIAL, AUTOMATED Lab STAT Multiple myeloma not having achieved remission (HCC) 03/01/2024 12:44 PM EDT Health Maintenance Due Date Last Done [...] Vaccine (FLU shot) (Season Ended) 2024 GFR 02/22/2025 02/23/2024, 02/2024, 02/09/2024, Additional history exists Pneumococcal Vaccine: 65+ Years [...] this encounter Medical Devices Implanted Type Area Import Export Manager Device Identifier Shelf Expiration Date Model / Serial / Lot Screw Elbow Humeral Total - [id number] Implanted:Qty: 1 on 12/23/2018 by Gautam Jasso MD at [place] [facility] [place] Right: Upper Arm [employer] 09/13/20278400-090 - / / [id number] Deisi Nexel Total Elbow Implanted:Qty: 1 on 12/23/2018 by Gautam Jasso MD at [place] [facility] [place] Right: Upper Arm 04/13/202300-095 - / / [id number] Cement Antibiotic Bone - [id number] Implanted:Qty: 1 on 12/23/2018 by Gautam Jasso MD at OR [facility] [place] Right: Upper Arm RENY : ORTHOPAEDICS 05/13/2020 6197-9-010 / / [id number] Cement Antibiotic Bone - [id number] Implanted:Qty: 1 on 12/23/2018 by Gautam Jasso MD at OR [facility] [place] Right: Upper Arm RENY : ORTHOPAEDICS 05/13/2020 6197-9-010 / / [id number] Stem Compr Srs Mod [id number] - [id number] Implanted:Qty: 1 on 12/23/2018 by Gautam Jasso MD at OR [facility] [place] Right: Upper Arm BIOMET : TRAUMA 01/28/2027 [id number] / / [id number] Deisi Nexel Total Elbow Ulnar Component Implanted:Qty: 1 on 12/23/2018 by Gautam Jasso MD at OR [facility] [place] Right: Upper Arm 07/14/20258400-025 -07 / / [id number] Comprehensive Srs/Nexel Distal Body Implanted:Qty: 1 on 12/23/2018 by Gautam Jasso MD at OR [facility] [place] Right: Upper Arm 03/03/2028 [id number] / / [id number] Valve Ricky 3 Ultra 26mm - [id number] Implanted:Qty: 1 on 05/27/2022 by Jesús Weber MD at CARDIAC LABS [facility] [place] [employer] [id number] 03/17/2023 [id number] / / Port Implant W/8f Poly Cath - [id number] Implanted:Qty: 1 on 12/29/2022 by Sudhir Lovett DO at OR [facility] Right: Chest CR BARD : PERIPHERAL VASCULAR [id number] 02/12/2024 [id number] / / [id number] documented as of this encounter Visit Diagnoses Diagnosis Multiple myeloma not having achieved remission (HCC) Multiple myeloma, without mention of having achieved remission documented in this encounter Advance Directives Documents on File Type Date Recorded Patient Wool Batting Worker Expl anation Power of Gasoline Finisher 12/12/2018 8:46 AM Vipin viveros Power of Gasoline Finisher Power of Gasoline Finisher 12/12/2018 8:45 AM Zuleyma ferguson Power of Gasoline Finisher Latest Code Status on File Code Status [...] the patient have Health Care Power of Gasoline Finisher? Yes, not currently available Full Code 11/21/2018 8:53 AM 11/21/2018 2:27 PM This or bull reflects the patients wishes and were consensually agreed upon. Care Teams Applied Technologist Relationship Specialty Start Date End Date Kulwinder Byers MD [address] [place] [address] PCP - General 06/28/03 documented as of this encounter
--- OUTSIDE RECORDS SUMMARY | 2024-03-19 07:03 | External Medical Summary | Summary of Care ---
Author Name Unknown Organization [facility] [address] [facility] [place] [address] Phone [phone] Care Team Providers Care Photograph Retoucher Name Role Phone Kulwinder Byers MD Primary Care Provider Encounter Details Date Type Department Care Team (Late st Contact Info) Description 03/02/2024 Telephone Hematology/Oncology [facility] [address] [place] [address] Jorge Allen MD 200 [facility] [place] [address] Allergies Active Allergy Reactions Criticality Noted Date Comments Adhesive Tape 05/28/2003 documented as of this encounter (statuses as of 03/02/2024) Medications Medication Sig Dispensed Refills Start Date [...] 30 Tab 0 12/25/2018 Active nystatin (NYSTOP) 181112 UNIT/GM powder Apply topically to affected area [...] as of this encounter (statuses as of 03/02/2024) Active Problems Problem Noted Date Diagnosed Date [...] as of this encounter (statuses as of 03/02/2024) Resolved Problems Problem Noted Date Diagnosed Date 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 Aortic valve stenosis 2021 documented as of this encounter (statuses as of 03/02/2024) Social History Tobacco Use Types Packs/Day Years [...] Team (Late st Contact Info) Description 03/12/2024 3:00 PM EDT Office Visit Hematology/Oncology [facility] [place] [address] [facility] [place] [address] Mariana Florez CRNP 400 [facility] [place] [address] Health Maintenance Due [...] this encounter Medical Devices Implanted Type Area Satellite Dish Installer Device Identifier Shelf Expiration Date Model / Serial / Lot Screw Elbow Humeral Total - [id number] Implanted:Qty: 1 on 12/23/2018 by Gautam Jasso MD at [place] [facility] [place] Right: Upper Arm [employer] 09/13/2027 / / [id number] Deisi Nexel Total Elbow Implanted:Qty: 1 on 12/23/2018 by Gautam Jasso MD at [place] [facility] [place] Right: Upper Arm 04/13/2023 / / [id number] Cement Antibiotic Bone - [id number] Implanted:Qty: 1 on 12/23/2018 by Gautam Jasso MD at OR [facility] [place] Right: Upper Arm RENY : ORTHOPAEDICS 05/13/2020 6197-9-010 / / [id number] Cement Antibiotic Bone - [id number] Implanted:Qty: 1 on 12/23/2018 by Gautam Jasso MD at OR [facility] Right: Upper Arm RENY : ORTHOPAEDICS 05/13/2020 6197-9-010 / / [id number] Stem Compr Srs Mod [id number] - [id number] Implanted:Qty: 1 on 12/23/2018 by Gautam Jasso MD at OR [facility] Right: Upper Arm BIOMET : TRAUMA 01/28/2027 [id number] / / [id number] Deisi Nexel Total Elbow Ulnar Component Implanted:Qty: 1 on 12/23/2018 by Gautam Jasso MD at OR [facility] [place] Right: Upper Arm 07/14/202500-025 -07 / / [id number] Comprehensive Srs/Nexel Distal Body Implanted:Qty: 1 on 12/23/2018 by Gautam Jasso MD at OR [facility] Right: Upper Arm 03/03/2028 [id number] / / [id number] Valve Ricky 3 Ultra 26mm - [id number] Implanted:Qty: 1 on 05/27/2022 by Jesús Weber MD at CARDIAC LABS [facility] [employer] [id number] 03/17/2023 [id number] / / Port Implant W/8f Poly Cath - [id number] Implanted:Qty: 1 on 12/29/2022 by Sudhir Lovett DO at OR [facility] Right: Chest CR BARD : PERIPHERAL VASCULAR [id number] 02/12/2024 [id number] / / [id number] documented as of this encounter Advance Directives Documents on File Type Date Recorded Patient Steel Pourer Helper Expl anation Power of Door Frame Builder 12/12/2018 8:46 AM Vipin viveros Power of Door Frame Builder Power of Door Frame Builder 12/12/2018 8:45 AM Zuleyma ferguson Power of Door Frame Builder Latest Code Status on File Code Status [...] the patient have Health Care Power of Door Frame Builder? Yes, not currently available Full Code 11/21/2018 8:53 AM 11/21/2018 2:27 PM This or bull reflects the patients wishes and were consensually agreed upon. Care Teams Photograph Retoucher Relationship Specialty Start Date End Date Kulwinder Byers MD [address] [address] PCP - General 06/28/03 documented as of this encounter
--- OUTSIDE RECORDS SUMMARY | 2024-03-19 07:03 | External Medical Summary ---
Author Name Unknown Address Unknown Organization K09[facility] [place] [address] Laboratory Report Ordering Provider Test Date Status WOOD CANTU 03/01/2024 12:44:39 Final Observation Date Value Abnormality Reference (Units ) Status SYNC LEUKOCYTES IN BLOOD BY AUTOMATED COUNT 03/01/2024 12:44:39 2.55 Below low normal 4.00-10.80 (K/uL) Final Segs 03/01/2024 12:44:39 74.0 40.0-75.0 (%) Final Lymphs % 03/01/2024 12:44:39 4.3 Below low normal 18.0-42.0 (%) Final Monos 03/01/2024 12:44:39 13.0 Above high normal 1.0-11.0 (%) Final Eosinophils 03/01/2024 12:44:39 7.5 Above high normal 0.0-6.0 (%) Final Basos 03/01/2024 12:44:39 1.2 0.0-2.0 (%) Final Absolute Segs 03/01/2024 12:44:39 1.87 1.80-7.70 (K/uL) Final Lymphs, absolute 03/01/2024 12:44:39 0.11 Below low normal 1.00-4.80 (K/ul) Final Monos, Abs 03/01/2024 12:44:39 0.33 0.00-1.10 (K/uL) Final Eos, Abs 03/01/2024 12:44:39 0.19 0.00-0.70 (K/uL) Final Basos, Abs 03/01/2024 12:44:39 0.03 0.00-0.20 (K/uL) Final Performing Location [facility] [place] [address]
--- OUTSIDE RECORDS SUMMARY | 2024-03-19 07:03 | External Medical Summary ---
Author Name Unknown Address Unknown Organization K09[facility] [place] [address] Laboratory Report Ordering Provider Test Date Status WOOD CANTU 03/01/2024 12:44:39 Final Observation Date Value Abnormality Reference (Units ) Status Nucleated erythrocytes/100 leukocytes [Ratio] in Blood by Automated count 03/01/2024 12:44:39 Final Performing Location [facility] [place] [address]
--- OUTSIDE RECORDS SUMMARY | 2024-03-19 07:03 | External Medical Summary ---
Author Name Unknown Address Unknown Organization K09:[facility] [address] [place] [address] Laboratory Report Ordering Provider Test Date Status WOOD CANTU 03/01/2024 12:44:39 Final Observation Date Value Abnormality Reference (Units ) Status BUN 03/01/2024 12:44:39 18 6-20 (mg/dL) Final Creatinine 03/01/2024 12:44:39 0.9 0.5-1.0 (mg/dL) Final Glomerular filtration rate/1.73 sq M.predicted [Volume Rate/Area] in Serum, Plasma or Blood by Creatinine-based formula (CKD-EPI) 03/01/2024 12:44:39 63 >=60 (mL/min) Final eGFR is calculated based on the CKD-EPI 2020 equation Sodium 03/01/2024 12:44:39 138 135-146 (m mol/L) Final Potassium 03/01/2024 12:44:39 3.7 3.5-5.1 (m mol/L) Final Cl 03/01/2024 12:44:39 100 98-107 (mm ol/L) Final CO2 03/01/2024 12:44:39 27 22-32 (mmo l/L) Final Anion gap 03/01/2024 12:44:39 11 7-15 (mmol /L) Final Glucose 03/01/2024 12:44:39 210 Above high normal 70 -120 (mg/dL) Final Albumin 03/01/2024 12:44:39 3.3 Below low normal 3.8 -5.0 (g/dL) Final AST (Aspartate aminotransferase) 03/01/2024 12:44:39 18 10-35 (U/L) Fin al Alk Phos 03/01/2024 12:44:39 70 35-130 (U/ L) Final Bilirubin, Total 03/01/2024 12:44:39 0.5 <=1 .2 (mg/dL) Final Calcium 03/01/2024 12:44:39 8.7 8.4-10.2 ( mg/dL) Final Protein 03/01/2024 12:44:39 5.5 Below low normal 6.0 -8.3 (g/dL) Final ALT (Alanine aminotransferase) 03/01/2024 12:44:39 13 10-35 (U/L) Abisai mcconnell Performing Location [facility] [address] [place] [address]
--- OUTSIDE RECORDS SUMMARY | 2024-03-19 07:03 | External Medical Summary | Summary of Care ---
Author Name Unknown Organization [facility] [address] [facility] [address] Phone [phone] Care Team Providers Care Photographer'S Assistant Name Role Phone Kulwinder Byers MD Primary Care Provider Encounter Details Date Type Department Care Team (Late st Contact Info) Description 03/02/2024 Telephone Hematology/Oncology [facility] [address] [place] [address] Jorge Allen MD 200 [facility] [place] [address] Allergies Active Allergy Reactions Criticality Noted Date [...] 30 Tab 0 12/25/2018 Active nystatin (NYSTOP) 006945 UNIT/GM powder Apply topically to affected area [...] try to do apt same day as dedthereseila apt Added her for tx before apt [...] Team (Late st Contact Info) Description 03/12/2024 11:00 AM EDT Hem/Onc Treatment Hematology/Oncology Treatment, [place] 200 [facility] [place] [address] Ritu, Chair 9 Hem Onc [address] [place] [address] 03/12/2024 3:00 PM EDT Office Visit Hematology/Oncology [facility] Ritu [address] [place] [address] Lorrie Florez CRNP [address] [place] [id number] Health Maintenance Due Date Last Done Comments [...] encounter Medical Devices Implanted Type Area Car Lot Attendant Device Identifier Shelf Expiration Date Model / Serial / Lot Screw Elbow Humeral Total - [id number] Implanted:Qty: 1 on 12/23/2018 by Gautam Jasso MD [place] [facility] [place]: Upper Arm [employer] 09/13/202700-090 - / / [id number] Deisi Nexel Total Elbow Implanted:Qty: 1 on 12/23/2018 by Gautam Jasso MD [place] [facility] [place] Right: Upper Arm 04/13/202300-095 - / / [id number] Cement Antibiotic Bone - [id number] Implanted:Qty: 1 on 12/23/2018 by Gautam Jasso MD at [place] [facility] Right: Upper Arm RENY : ORTHOPAEDICS 05/13/2020 6197-9-010 / / [id number] Cement Antibiotic Bone - [id number] Implanted:Qty: 1 on 12/23/2018 by Gautam Jasso MD [place] [facility] [place] Right: Upper Arm RENY : ORTHOPAEDICS 05/13/2020 6197-9-010 / / [id number] Stem Compr Srs Mod 3j221op - [id number] Implanted:Qty: 1 on 12/23/2018 by Gautam Jasso MD at [place] [facility] [place] Right: Upper Arm BIOMET : TRAUMA 01/28/2027 [id number] / / [id number] Deisi Nexel Total Elbow Ulnar Component Implanted:Qty: 1 on 12/23/2018 by Gautam Jasso MD at [place] [facility] [place] Right: Upper Arm 07/14/2025 00-8400-025 -07 / / [id number] Comprehensive Srs/Nexel Distal Body Implanted:Qty: 1 on 12/23/2018 by Gautam Jasso MD at [place] [facility] [place] Right: Upper Arm 03/03/2028 [id number] / / [id number] Valve Ricky 3 Ultra 26mm - [id number] Implanted:Qty: 1 on 05/27/2022 by Jesús Weber MD at [facility] [employer] [id number] 03/17/2023 [id number] / / Port Implant W/8f Poly Cath - [id number] Implanted:Qty: 1 on 12/29/2022 by Sudhir Lovett DO at OR [facility] Right: Chest CR BARD : PERIPHERAL VASCULAR [id number] 02/12/2024 [id number] / / [id number] documented as of this encounter Advance Directives Documents on File Type Date Recorded Patient Platen Press Feeder Expl anation Power of Finishing Machine Operator 12/12/2018 8:46 AM Vipin viveros Power of Finishing Machine Operator Power of Finishing Machine Operator 12/12/2018 8:45 AM Zuleyma ferguson Power of Finishing Machine Operator Latest Code Status on File [...] the patient have Health Care Power of Finishing Machine Operator? Yes, not currently available Full Code 11/21/2018 8:53 AM 11/21/2018 2:27 PM This or bull reflects the patients wishes and were consensually agreed upon. Care Teams Photographer'S Assistant Relationship Specialty Start Date End Date Kulwinder Byers MD [address] [place] [address] PCP - General 06/28/03 documented as of this encounter
--- OUTSIDE RECORDS SUMMARY | 2024-03-19 07:03 | External Medical Summary | Summary of Care ---
Author Name Unknown Organization [facility] Address [address] [facility] [place] [address] Phone [phone] Care Team Providers Care Bulb Grower Name Role Phone Kulwinder Byers MD Primary Care Provider Reason for Visit * Reason Comments Outpatient Testing Encounter Details Date Type Department Care Team (Late st Contact Info) Description 03/01/2024 12:50 PM EDT Laboratory Laboratory [facility] [place] [address] [place] [address] Ritu Lab [facility] 200 [facility] [place] [address] Multiple myeloma not having achieved remission (HCC) [...] 30 Tab 0 12/25/2018 Active nystatin (NYSTOP) 190927 UNIT/GM powder Apply topically to affected area [...] 11:45 AM EDT Hem/Onc Treatment Hematology/Oncology Treatment, [place] [address] [place] [address] Rtiu, Chair 3 Hem Onc [facility] 200 [facility] [place] [address] 03/12/2024 3:00 PM EDT Office Visit Hematology/Oncology [facility] [place] 200 [facility] [place] [address] Mariana Florez CRNP [address] [place], [place] [phone] Pending Results Name Type Priority Associated Diagnoses [...] this encounter Medical Devices Implanted Type Area Meter/Relay Craftsman Device Identifier Shelf Expiration Date Model / Serial / Lot Screw Elbow Humeral Total - [id number] Implanted:Qty: 1 on 12/23/2018 by Gautam Jasso MD [place] [facility] [place]: Upper Arm [employer] 09/13/20278400-090 - / / [id number] Deisi Nexel Total Elbow Implanted:Qty: 1 on 12/23/2018 by Gautam Jasso MD at [place] [facility] Right: Upper Arm 04/13/202300-095 - / / [id number] Cement Antibiotic Bone - [id number] Implanted:Qty: 1 on 12/23/2018 by Gautam Jasso MD at [place] [facility] Right: Upper Arm RENY : ORTHOPAEDICS 05/13/2020 6197-9-010 / / [id number] Cement Antibiotic Bone - [id number] Implanted:Qty: 1 on 12/23/2018 by Gautam Jasso MD at [place] [facility] [place] Right: Upper Arm RENY : ORTHOPAEDICS 05/13/2020 6197-9-010 / / [id number] Stem Compr Srs Mod 2j634up - [id number] Implanted:Qty: 1 on 12/23/2018 by Gautam Jasso MD at [place] [facility] [place] Right: Upper Arm BIOMET : TRAUMA 01/28/2027 [id number] / / [id number] Deisi Nexel Total Elbow Ulnar Component Implanted:Qty: 1 on 12/23/2018 by Gautam Jasso MD at [place] [facility] [place] Right: Upper Arm 07/14/20258400-025 -07 / / [id number] Comprehensive Srs/Nexel Distal Body Implanted:Qty: 1 on 12/23/2018 by Gautam Jasso MD at [place] [facility] Right: Upper Arm 03/03/2028 [id number] / / [id number] Valve Ricky 3 Ultra 26mm - [id number] Implanted:Qty: 1 on 05/27/2022 by Jesús Weber MD at [facility] [employer] [id number] 03/17/2023 [id number] / / Port Implant W/8f Poly Cath - [id number] Implanted:Qty: 1 on 12/29/2022 by Sudhir Lovett DO at OR [facility] Right: Chest CR BARD : PERIPHERAL VASCULAR [id number] 02/12/2024 [id number] / / [id number] documented as of this encounter Visit Diagnoses Diagnosis Multiple myeloma not having achieved remission (HCC) Multiple myeloma, without mention of having achieved remission documented in this encounter Advance Directives Documents on File Type Date Recorded Patient Ring Cutter Lathe Operator Expl anation Power of Clinical Nurse Occupational Medicine 12/12/2018 8:46 AM Yung day Power of Clinical Nurse Occupational Medicine Power of Clinical Nurse Occupational Medicine 12/12/2018 8:45 AM Zuleyma ferguson Power of Clinical Nurse Occupational Medicine Latest Code Status on File Code Status [...] the patient have Health Care Power of Clinical Nurse Occupational Medicine? Yes, not currently available Full Code 11/21/2018 8:53 AM 11/21/2018 2:27 PM This or bull reflects the patients wishes and were consensually agreed upon. Care Teams Bulb Grower Relationship Specialty Start Date End Date Kulwinder Byers MD [address] [place] [address] PCP - General 06/28/03 documented as of this encounter
--- OUTSIDE RECORDS SUMMARY | 2024-03-19 07:03 | External Medical Summary | Summary of Care ---
Author Name Unknown Organization [facility] Address [address] [facility] [address] Phone [phone] Care Team Providers Care Microfilm Technician Name Role Phone Kulwinder Byers MD Primary Care Provider [phone] Encounter Details Date Type Department Care Team (Late st Contact Info) Description 03/02/2024 Telephone Hematology/Oncology [facility] [address] [place] [address] Jorge Allen MD 200 [facility] [place] [address] Allergies Active Allergy Reactions Criticality Noted Date [...] 30 Tab 0 12/25/2018 Active nystatin (NYSTOP) 219398 UNIT/GM powder Apply topically to affected area [...] PM EDT Office Visit Hematology/Oncology [facility] [place] 200 [facility] [place] [address] Mariana Florez CRNP 400 [facility] [place] [address] Health Maintenance [...] this encounter Medical Devices Implanted Type Area Logistics Project Manager Device Identifier Shelf Expiration Date Model / Serial / Lot Screw Elbow Humeral Total - [id number] Implanted:Qty: 1 on 12/23/2018 by Gautam Jasso MD at OR [facility] Right: Upper Arm [employer] 09/13/2027 / / [id number] Deisi Nexel Total Elbow Implanted:Qty: 1 on 12/23/2018 by Gautam Jasso MD at OR [facility] Right: Upper Arm 04/13/2023 / / [id number] Cement Antibiotic Bone - [id number] Implanted:Qty: 1 on 12/23/2018 by Gautam Jasso MD at OR [facility] Right: Upper Arm RENY : ORTHOPAEDICS 05/13/2020 6197-9-010 / / [id number] Cement Antibiotic Bone - [id number] Implanted:Qty: 1 on 12/23/2018 by Gautam Jasso MD at OR [facility] Right: Upper Arm RENY : ORTHOPAEDICS 05/13/2020 6197-9-010 / / [id number] Stem Compr Srs Mod 7v171hg - [id number] Implanted:Qty: 1 on 12/23/2018 by Gautam Jasso MD at OR [facility] Right: Upper Arm BIOMET : TRAUMA 01/28/2027 [id number] / / [id number] Deisi Nexel Total Elbow Ulnar Component Implanted:Qty: 1 on 12/23/2018 by Gautam Jasso MD at OR [facility] Right: Upper Arm 07/14/202500-025 -07 / / [id number] Comprehensive Srs/Nexel Distal Body Implanted:Qty: 1 on 12/23/2018 by Gautam Jasso MD at OR [facility] Right: Upper Arm 03/03/2028 [id number] / / [id number] Valve Ricky 3 Ultra 26mm - [id number] Implanted:Qty: 1 on 05/27/2022 by Jesús Weber MD at [facility] [employer] [id number] 03/17/2023 [id number] / / Port Implant W/8f Poly Cath - [id number] Implanted:Qty: 1 on 12/29/2022 by Sudhir Lovett DO at OR [facility] Right: Chest CR BARD : PERIPHERAL VASCULAR [id number] 02/12/2024 [id number] / / [id number] documented as of this encounter Advance Directives Documents on File Type Date Recorded Patient Truck Rental Clerk Expl anation Power of Flange Machine Operator 12/12/2018 8:46 AM Vipin viveros Power of Flange Machine Operator Power of Flange Machine Operator 12/12/2018 8:45 AM Zuleyma ferguson Power of Flange Machine Operator Latest Code Status on File [...] the patient have Health Care Power of Flange Machine Operator? Yes, not currently available Full Code 11/21/2018 8:53 AM 11/21/2018 2:27 PM This or bull reflects the patients wishes and were consensually agreed upon. Care Teams Microfilm Technician Relationship Specialty Start Date End Date Kulwinder Byers MD [address] [address] PCP - General 06/28/03 documented as of this encounter
--- OUTSIDE RECORDS SUMMARY | 2024-03-19 07:03 | External Medical Summary ---
Author Name Unknown Address Unknown Organization K09:[facility] [place] [address] Laboratory Report Ordering Provider Test Date Status WOOD CANTU 03/01/2024 12:44:39 Final Observation Date Value Abnormality Reference (Units ) Status WBC, Total 03/01/2024 12:44:39 2.55 Below low normal 4. 00-10.80 (K/uL) Final RBC 03/01/2024 12:44:39 3.60 3.85-5.15 (M/uL) Final Hemoglobin 03/01/2024 12:44:39 10.8 Below low normal 12 .0-15.3 (g/dL) Final HCT 03/01/2024 12:44:39 33.3 Below low normal 36. 0-45.2 (%) Final MCV 03/01/2024 12:44:39 92.5 81.5-97.5 (fL) Final MCH 03/01/2024 12:44:39 30.0 27.0-34.0 (pg) Final MCHC 03/01/2024 12:44:39 32.4 32.0-36.0 (g/dL) Final RDW 03/01/2024 12:44:39 19.9 11.5-15.5 (%) Final Platelets 03/01/2024 12:44:39 92 Below low normal 140 -400 (K/uL) Final Results rechecked.
null MPV 03/01/2024 12:44:39 Final No result - abnormal platele t distribution. Performing Location [facility] [place] [address]
--- OUTSIDE RECORDS SUMMARY | 2024-03-19 07:03 | External Medical Summary | Summary of Care ---
Author Name Unknown Organization [facility] [address] [facility] [address] Phone [phone] Care Team Providers Care Elementary Reading Tutor Name Role Phone Kulwinder Byers MD Primary Care Provider Encounter Details Date Type Department Care Team (Late st Contact Info) Description 03/02/2024 Telephone Hematology/Oncology [facility] [address] [place] [address] Jorge Allen MD 200 [facility] [place] [address] Allergies Active Allergy Reactions Criticality Noted Date [...] 30 Tab 0 12/25/2018 Active nystatin (NYSTOP) 555536 UNIT/GM powder Apply topically to affected area [...] 11:00 AM EDT Hem/Onc Treatment Hematology/Oncology Treatment, [address] [place] [address] Ritu, Chair 9 Hem On[address] [place] [address] 03/12/2024 3:00 PM EDT Office Visit Hematology/Oncology [address] [address] Lorrie Florez CRNP [address] [facility] [place] [address] Health Maintenance Due Date Last Done [...] this encounter Medical Devices Implanted Type Area Painter Railroad Car Device Identifier Shelf Expiration Date Model / Serial / Lot Screw Elbow Humeral Total - [id number] Implanted:Qty: 1 on 12/23/2018 by Gautam Jasso MD [place] [facility] [place] Right: Upper Arm [employer] 09/13/2027-8400-090 -00 / / [id number] Deisi Nexel Total Elbow Implanted:Qty: 1 on 12/23/2018 by Gautam Jasso MD at [place] [facility] [place] Right: Upper Arm 04/13/2023-8400-095 -00 / / [id number] Cement Antibiotic Bone - [id number] Implanted:Qty: 1 on 12/23/2018 by Gautam Jasso MD at [place] [facility] Right: Upper Arm RENY : ORTHOPAEDICS 05/13/2020 6197-9-010 / / [id number] Cement Antibiotic Bone - [id number] Implanted:Qty: 1 on 12/23/2018 by Gautam Jasso MD at [place] [facility] Right: Upper Arm RENY : ORTHOPAEDICS 05/13/2020 6197-9-010 / / [id number] Stem Compr Srs Mod 1s449wi - [id number] Implanted:Qty: 1 on 12/23/2018 by Gautam Jasso MD at [place] [facility] Right: Upper Arm BIOMET : TRAUMA 01/28/2027 [id number] / / [id number] Deisi Nexel Total Elbow Ulnar Component Implanted:Qty: 1 on 12/23/2018 by Gautam Jasso MD at [place] [facility] Right: Upper Arm 07/14/2025 00-8400-025 -07 / / [id number] Comprehensive Srs/Nexel Distal Body Implanted:Qty: 1 on 12/23/2018 by Gautam Jasso MD at [place] [facility] Right: Upper Arm 03/03/2028 [id number] / / [id number] Valve Ricky 3 Ultra 26mm - [id number] Implanted:Qty: 1 on 05/27/2022 by Jesús Weber MD at [facility] [employer] [id number] 03/17/2023 [id number] / / Port Implant W/8f Poly Cath - [id number] Implanted:Qty: 1 on 12/29/2022 by Sudhir oLvett DO at OR [facility] Right: Chest CR BARD : PERIPHERAL VASCULAR [id number] 02/12/2024 [id number] / / [id number] documented as of this encounter Advance Directives Documents on File Type Date Recorded Patient Certified Maintenance Welder Expl anation Power of Car Usher 12/12/2018 8:46 AM Vipin viveros Power of Car Usher Power of Car Usher 12/12/2018 8:45 AM Zuleyma ferguson Power of Car Usher Latest Code Status on File Code Status [...] the patient have Health Care Power of Car Usher? Yes, not currently available Full Code 11/21/2018 8:53 AM 11/21/2018 2:27 PM This or bull reflects the patients wishes and were consensually agreed upon. Care Teams Elementary Reading Tutor Relationship Specialty Start Date End Date Kulwinder Byers MD [address] [address] PCP - General 06/28/03 documented as of this encounter
[2024-03-19 07:58] LABS: INR 1.3 (0.9-1.1); Prothrombin Time 13.5 Seconds (9.0-12.0)
[2024-03-19 08:02] LABS: Albumin Globulin Ratio 1.1 (0.9-2); Albumin Level 2.6 gm/dl (3.4-5.0); BUN Creatinine Ratio 12.2 (10-20); Bilirubin,Total 0.8 mg/dl (0.2-1.0); Calcium 7.1 mg/dl (8.6-10.3); Creatinine Clr Calc Pharmacy 51.6 ml/min; Est GFR (African American) 68.5 ml/min; Est GFR (Non-African American) 59.1 ml/min; Globulin 2.3 gm/dl (2.5-4.0); Potassium 3.1 mmol/L (3.5-5.1); Total Protein 4.9 gm/dl (6.0-8.3)
[2024-03-19] MEDS: CALCIUM 600MG + VIT D 400 IU TAB PO SCH (08:05)
[2024-03-19] MEDS: ATORVASTATIN 10 MG TAB PO SCH (08:05)
[2024-03-19] MEDS: CHOLECALCIFEROL 25 MCG (1000 UNITS) TAB PO SCH (08:05)
[2024-03-19] MEDS: VENLAFAXINE HCL XR 75 MG CAPXR PO SCH (08:05)
[2024-03-19 08:12] LABS: Magnesium 1.5 mg/dl (1.7-2.4)
[2024-03-19 08:14] LABS: Hematocrit (blood only) 26.5 % (37.0-47.0); Hemoglobin 8.6 g/dl (12.0-16.0); Mean Corpuscular Hemoglobin 29.1 pg (25.0-34.0); Mean Corpuscular Hgb Conc 32.5 g/dL (32.0-36.0); Mean Corpuscular Volume 89.5 fL (80.0-100.0); Platelet Count 58 K/uL (130-400); RDW Coefficient of Variation 19.1 % (11.5-14.5); RDW Standard Deviation 60.9 fL (36.4-46.3); Red Blood Count 2.96 M/uL (4.20-5.40); White Blood Count 2.97 K/ul (4.8-10.8)
[2024-03-19 08:18] LABS: Acanthocytes 1+; Basophils # (auto) 0.01 K/uL (0.00-0.20); Basophils % (auto) 0.3 %; Eosinophils % (auto) 3.4 %; Immature Granulocytes # (auto) 0.02 K/uL (0.01-0.20); Immature Granulocytes % (auto) 0.7 %; Lymphocytes # (auto) 0.27 K/uL (1.20-3.40); Lymphocytes % (auto) 9.1 %; Monocytes # (auto) 0.33 K/uL (0.11-0.59); Monocytes % (auto) 11.1 %; Neutrophils # (auto) 2.24 K/uL (1.40-6.50); Neutrophils % (auto) 75.4 %; Ovalocytes 1+; Poikilocytosis Present; Polychromasia 1+; Tear Drop Cells 1+
--- NOTE | 2024-03-19 09:44 | Gastrointestinal Consultation ---
Date of Consultation March 19, 2024 Assessment & Plan (1) GIB (gastrointestinal bleeding): (2) Acute blood loss anemia: Plan Patient is a 83 y.o. female admitted with melena and symptomatic anemia in the setting of chronic anticoagulation with Coumadin and ASA. -NPO. -Continue Protonix ggt at 20 ml/hr. -EGD by Dr. Guy today for further evaluation. -Further reccs pending results of testing. Thank you for allowing us to participate in the care of this patient. If you have any questions or concerns, please do not hesitate to contact us. Supervising Physician Co-Signing Physician Notes Agree with JORGE Sapp as above Interviewed and examined patient and agree with above. Abd: Soft, NT, ND, +BS Continue current therapy and supportive care Proceed with EGD now. History of Present Illness Reason for Consultation: GIB Requesting Physician: Dr. Wilson Attending Physician: Kulwinder Magallanes MD History of Present Illness Patient is a 83 y.o. morbidly obese female with a history of CHF, complete heart block, reactive airway disease, myeloma, and history of PE on chronic anticoagulation with lose dose ASA and Coumadin admitted with melena x 1 week and weakness secondary to symptomatic anemia. Hemoglobin on 01/16 was noted to be 11.3 but was down to 9.4 on arrival. Hemoglobin has since dropped to 8.6 this morning. Per nursing, the patient did have a large brown bowel movement this morning without any evidence of blood. Patient denies any chest pain or palpitations or shortness of breath at present. No abdominal pain, nausea or vomiting. She has been started on a PPI ggt and placed on NPO status. Allergies Allergy/AdvReac Type Severity Reaction Status Date / Time adhesive tape AdvReac Mild Skin rash Verified 03/19/24 10:55 Home Medications Medication Instructions Recorded Confirmed Type cholecalciferol (vitamin D3) 50 1,000 unit PO QAM 07/31/19 03/18/24 History mcg (2,000 unit) tablet acyclovir 400 mg tablet 400 mg PO AMHS 11/20/19 03/18/24 History multivitamin 1 tab PO QAM 03/06/21 03/18/24 History acetaminophen 650 mg 975 mg PO QID pain 12/31/21 03/18/24 History tablet,extended release Wheeled Walker #1 ea 05/19/22 03/01/24 Rx dexamethasone 4 mg tablet 20 mg PO WK 08/27/22 03/18/24 History sodium di- and 1 tab PO AMHS 08/28/22 03/18/24 History monophosphate-potassium phos monobasic 250 mg tablet (Phospha Neutral) diaper,brief,adult,disposable #120 ea 09/07/22 03/01/24 Rx (Briefs, Adult-Extra Large) incontinence pad, liner, disp #100 ea 09/07/22 03/01/24 Rx latex gloves (Latex Gloves, Large) #100 ea 09/07/22 03/01/24 Rx blood sugar diagnostic (OneTouch #100 ea 12/10/22 03/01/24 Rx Ultra Test strips) denosumab 120 mg/1.7 mL (70 mg/mL) 120 mg subcut .Q3 months 01/12/23 03/18/24 History subcutaneous solution (Xgeva) loperamide 2 mg capsule (Imodium 2 mg PO QID PRN Diarrhea 01/12/23 03/18/24 History A-D) albuterol sulfate 90 mcg/actuation 2 inh inhalation Q6 PRN Shortness 01/15/24 03/18/24 History aerosol inhaler Of Breath aspirin 81 mg chewable tablet 81 mg PO QAM 01/15/24 03/18/24 History calcium carbonate 600 mg-vitamin 1 tab PO QAM 01/15/24 03/18/24 History D3 5 mcg (200 unit) tablet (Calcium 600 + D(3)) cyanocobalamin (vitamin B-12) 100 100 mcg PO QAM 01/15/24 03/18/24 History mcg tablet loratadine 10 mg tablet 10 mg PO QAM 01/15/24 03/18/24 History potassium chloride 10 mEq 10 meq PO AMHS 01/15/24 03/18/24 History tablet,extended release prochlorperazine maleate 10 mg 10 mg PO Q6 PRN Nausea 01/15/24 03/18/24 History tablet venlafaxine 150 mg 150 mg PO QPM 01/15/24 03/18/24 History capsule,extended release 24 hr venlafaxine 75 mg capsule,extended 75 mg PO QAM 01/15/24 03/18/24 History release 24 hr warfarin 10 mg tablet See Protocol PO 5XWK 01/15/24 03/18/24 History Oxygen Home [id number] 01/18/24 03/01/24 History warfarin 4 mg tablet See Protocol PO 2XWK 01/18/24 03/18/24 History atorvastatin 10 mg tablet 10 mg PO QAM #90 tabs 01/19/24 03/18/24 Rx albuterol sulfate 1.25 mg/3 mL 1.25 mg (3 mL) inhalation QID PRN 01/20/24 03/18/24 Rx solution for nebulization shortness of breath or wheezing #90 mL metoprolol tartrate 25 mg tablet 25 mg PO BID #180 tabs 02/15/24 03/18/24 Rx furosemide 40 mg tablet (Lasix) 20 mg PO DAILY 03/01/24 03/18/24 History pantoprazole 40 mg tablet,delayed 40 mg PO DAILY 03/18/24 03/18/24 History release Patient History Medical History History of pulmonary embolism Hypercoagulable state Coronary artery disease Cardiac pacemaker (2017) Morbid obesity with BMI of 50.0-59.9, adult Hypomagnesemia Vitamin D deficiency Aortic stenosis CHF exacerbation (HFpEF) heart failure with preserved ejection fraction Pancytopenia Acute on chronic respiratory failure with hypoxia Sepsis Pneumonia due to 2019 novel coronavirus Endometrial intraepithelial neoplasia (EIN) Myeloma Morbid obesity Post-menopausal bleeding Degenerative disc disease Osteoarthritis Hyperlipidemia Diabetes mellitus, type 2 NIDDM History of seizure last seizure 1995 Sleep apnea CPAP + 2 LPM O2 qhs Urinary leakage Basal cell carcinoma face Cervical radiculopathy Positional vertigo Post herpetic neuralgia hx shingles Hemorrhoids Pulmonary embolism years ago (no definitive etiology)- on warfarin Depression 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; s/p surgery, radiation, chemo (receiving weekly oral/IV chemo Fridays + dexamethasone 40mg pretreatment prior to chemo) Anxiety Fracture, humerus Surgical History S/P TAVR (transcatheter aortic valve replacement) Aortic valve replaced History of surgery right distal humerus replacement S/P tubal ligation S/P tooth extraction History of endometrial biopsy S/P dilation and curettage History of cataract surgery Bilateral History of tonsillectomy History of appendectomy History of bilateral carpal tunnel release History of cholecystectomy History of knee replacement procedure of left knee History of knee replacement procedure of right knee H/O surgical biopsy Right distal humerus 11/21/18 Family History Mother , 89yo Myocardial infarction Congestive heart failure Father , Pt unsure of details of father's health history;Knows he had facial cancer Malignant neoplasm of oral cavity Sister , May 2019 of copd Diabetes Breast cancer Son Hypertension Grandmother Diabetes Denies family history of Prostate cancer Lung cancer Colorectal cancer Social History Smoking Status: Never smoker Second Hand Exposure: No; Do You Dip or Chew Tobacco: No; Hx Alcohol Use: No Hx Substance Use: No Preferred Language: Kyrgyz Communication Ability: Effective Visual Impairment: No Limitations Hearing Ability: Normal Media Developer Required: No Beliefs That Will Affect Care: None marital status: / Current Living Situation: Alone Current Living Situation Comment: lives with son and [id number] current occupational status: retired 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 Feels Safe at Home: Yes Safety Concerns: Feels Safe At This Time Childhood Exposure to Second-Hand Smoke: No Diet: other caffeine: Yes (1 cup/day) during the past year weight has: remained stable Dental Care, Regularly: No Physical Activity Frequency: Does not Exercise Seatbelt Use: sometimes Sunscreen Use: Yes Assistive Devices: CPAP and Oxygen - at Night Review of Systems Constitutional: as per Subjective / HPI Respiratory: as per Subjective / HPI Cardiovascular: as per Subjective / HPI Gastrointestinal: as per Subjective / HPI Physical Exam Constitutional: WD/WN, vitals as above Respiratory: normal respiratory effort, lungs clear to auscultation Cardiovascular: Rate/Rhythm: regular rate and regular rhythm Gastrointestinal (Abdomen): Inspection/Auscultation: + significant pannus and + hyperactive bowel sounds Percussion/Palpation: abdomen soft; abdomen nontender, no guarding and abdomen not rigid Psychiatric: A+Ox3, euthymic affect Results & Data Vital Signs (Past 12 Hours) Vital Signs Temp Pulse Pulse Resp BP Pulse Ox O2 Del Method 03/19/24 07:31 93 H 03/19/24 07:22 37.0 C 87 19 105/62 92 Room Air 03/19/24 05:39 36.5 C 96 H 22 125/74 03/19/24 03:49 37.6 C H 91 H 21 94/61 L 91 CPAP 03/19/24 02:29 87 24 93 03/18/24 23:15 37.8 C H 91 H 18 108/63 91 CPAP 03/18/24 22:33 89 03/18/24 22:15 90 24 91 Diagnostic Findings Laboratory Results WBC 2.97 K/ul (4.8-10.8) L 03/19/24 07:05 RBC 2.96 M/uL (4.20-5.40) L 03/19/24 07:05 Hgb 8.6 g/dl (12.0-16.0) L 03/19/24 07:05 Hct 26.5 % (37.0-47.0) L 03/19/24 07:05 MCV 89.5 fL (80.0-100.0) 03/19/24 07:05 MCH 29.1 pg (25.0-34.0) 03/19/24 07:05 MCHC 32.5 g/dL (32.0-36.0) 03/19/24 07:05 RDW Std Deviation 60.9 fL (36.4-46.3) H 03/19/24 07:05 RDW Coeff of Giuseppe 19.1 % (11.5-14.5) H 03/19/24 07:05 Plt Count 58 K/uL (130-400) L 03/19/24 07:05 Immature Gran % (Auto) 0.7 % 03/19/24 07:05 Neut % (Auto) 75.4 % 03/19/24 07:05 Lymph % (Auto) 9.1 % 03/19/24 07:05 [place] % (Auto) 11.1 % 03/19/24 07:05 Eos % (Auto) 3.4 % 03/19/24 07:05 Baso % (Auto) 0.3 % 03/19/24 07:05 Reticulocyte % (Auto) 1.80 % (0.50-2.00) 03/18/24 18:42 Neut # (Auto) 2.24 K/uL (1.40-6.50) 03/19/24 07:05 Lymph # (Auto) 0.27 K/uL (1.20-3.40) L 03/19/24 07:05 [place] # (Auto) 0.33 K/uL (0.11-0.59) 03/19/24 07:05 Eos # (Auto) 0.10 K/uL (0.00-0.50) 03/19/24 07:05 Baso # (Auto) 0.01 K/uL (0.00-0.20) 03/19/24 07:05 Reticulocyte # 0.060 10^6/uL (0.020-0.100) 03/18/24 18:42 Immature Gran # (Auto) 0.02 K/uL (0.01-0.20) 03/19/24 07:05 Absolute Nucleated RBC 0.02 K/uL (0.00-0.12) 03/18/24 14:48 Nucleated RBC % (auto) 0.5 % 03/18/24 14:48 Polychromasia 1+ 03/19/24 07:05 Poikilocytosis Present 03/19/24 07:05 Tear Drop Cells 1+ 03/19/24 07:05 Ovalocytes 1+ 03/19/24 07:05 Acanthocytes (Spur) 1+ 03/19/24 07:05 PT 13.5 Seconds (9.0-12.0) H 03/19/24 07:05 INR 1.3 (0.9-1.1) H 03/19/24 07:05 APTT 42 Seconds (21-31) H 03/18/24 14:48 PTT Ratio 1.6 03/18/24 14:48 Sodium 135 mmol/L (136-145) L 03/19/24 07:05 Potassium 3.1 mmol/L (3.5-5.1) L 03/19/24 07:05 Chloride 99 mmol/L (98-107) 03/19/24 07:05 Carbon Dioxide 29 mmol/L (21-32) 03/19/24 07:05 Anion Gap 7 (3-11) 03/19/24 07:05 BUN 11 mg/dl (6-23) 03/19/24 07:05 Creatinine 0.90 mg/dl (0.6-1.2) 03/19/24 07:05 Est Cr Clr Drug Dosing 51.6 ml/min 03/19/24 07:05 Est GFR ( Amer) 68.5 ml/min 03/19/24 07:05 Est GFR (Non-Af Amer) 59.1 ml/min 03/19/24 07:05 BUN/Creatinine Ratio 12.2 (10-20) 03/19/24 07:05 Glucose 121 mg/dl (70-99(Fasting)) H 03/19/24 07:05 POC Glucose 146 mg/dl (70-99) H 03/19/24 07:35 Calcium 7.1 mg/dl (8.6-10.3) L 03/19/24 07:05 Ionized Calcium 1.01 mmol/L (1.12-1.32) L 03/19/24 07:05 Magnesium 1.5 mg/dl (1.7-2.4) L 03/19/24 07:05 Iron 44 mcg/dl (35-150) 03/18/24 18:42 TIBC 222 mcg/dl (250-450) L 03/18/24 18:42 Unsaturated IBC 178 mcg/dl (155-355) 03/18/24 18:42 Transferrin % Sat 20 % (15-50) 03/18/24 18:42 Ferritin 469.1 ng/ml (8-388) H 03/18/24 18:42 Total Bilirubin 0.8 mg/dl (0.2-1.0) 03/19/24 07:05 Direct Bilirubin 0.1 mg/dl (0-0.2) 03/18/24 14:48 AST 17 U/L (13-39) 03/19/24 07:05 ALT 8 U/L (7-52) 03/19/24 07:05 Alkaline Phosphatase 47 U/L (34-104) 03/19/24 07:05 Lactate Dehydrogenase 261 U/L (86-244) H 03/18/24 18:42 Troponin I High Sens 11.1 pg/ml (0-14) 03/18/24 14:48 Total Protein 4.9 gm/dl (6.0-8.3) L 03/19/24 07:05 Albumin 2.6 gm/dl (3.4-5.0) L 03/19/24 07:05 Globulin 2.3 gm/dl (2.5-4.0) L 03/19/24 07:05 Albumin/Globulin Ratio 1.1 (0.9-2) 03/19/24 07:05 Lipase 35 U/L (11-82) 03/18/24 14:48 Vitamin B12 854 pg/ml (180-914) 03/18/24 18:42 Folate > 22.30 ng/ml (>5.38) 03/18/24 18:42 Urine Color Yellow 03/18/24 Unknown Urine Appearance Clear (Clear) 03/18/24 Unknown Urine pH 6.0 (4.5-7.5) 03/18/24 Unknown Ur Specific [place] > 1.045 (1.000-1.030) H 03/18/24 Unknown Urine Protein 1+ (Negative) H 03/18/24 Unknown Urine Glucose (UA) Negative (Negative) 03/18/24 Unknown Urine Ketones Negative (Negative) 03/18/24 Unknown Urine Blood Negative (Negative) 03/18/24 Unknown Urine Nitrite Negative (Negative) 03/18/24 Unknown Urine Bilirubin Negative (Negative) 03/18/24 Unknown Urine Urobilinogen Negative (Negative) 03/18/24 Unknown Ur Leukocyte Esterase Negative (Negative) 03/18/24 Unknown Urine WBC (Auto) 6-10 /hpf (0-5) H 03/18/24 Unknown Urine RBC (Auto) 0-2 /hpf (0-2) 03/18/24 Unknown U Hyaline Cast (Auto) 0-2 /lpf (0-2) 03/18/24 Unknown U Epithel Cells (Auto) 3-5 /hpf (0-2) H 03/18/24 Unknown Urine Bacteria (Auto) None Seen (None Seen) 03/18/24 Unknown Blood Type A Negative 03/18/24 14:48 Antibody Screen POSITIVE A 03/18/24 14:48 Impressions Abdomen/Pelvis CT 03/18/24 19:39 Exam(s): CT ABDOMEN + PELVIS With Contrast IV Amt: OPTIRAY 320 95ML EXAM: CT Abdomen and Pelvis With Intravenous Contrast CLINICAL HISTORY: Reason for exam: diarrhea, hematochezia, left sided abdominal pain. TECHNIQUE: Axial computed tomography images of the abdomen and pelvis with intravenous contrast. Automated exposure control was utilized for the study. A dose lowering technique was utilized adhering to the principles of ALARA. CONTRAST: Patient received OPTIRAY 320 95ML of IV contrast COMPARISON: No relevant prior studies available. FINDINGS: Lung bases: Unremarkable. No mass. No consolidation. Heart: Cardiomegaly. Pacemaker leads with. Prosthetic aortic valve. ABDOMEN: Liver: Unremarkable. No mass. Gallbladder and bile ducts: Cholecystectomy. No ductal dilation. Pancreas: Unremarkable. No mass. No ductal dilation. Spleen: Unremarkable. No splenomegaly. Adrenals: Unremarkable. No mass. Kidneys and ureters: LEFT renal cyst measures 3.5 cm. No hydronephrosis. Stomach and bowel: Diverticulosis, without acute diverticulitis. No small bowel obstruction. No free intraperitoneal air. No diarrheal disease on CT scan. PELVIS: Appendix: No findings to suggest acute appendicitis. Bladder: Unremarkable. Normal urinary bladder. Reproductive: Unremarkable as visualized. ABDOMEN and PELVIS: Intraperitoneal space: Unremarkable. No free air. No significant fluid collection. Bones/joints: Degenerative changes of the spine. No acute fracture. No dislocation. Soft tissues: Unremarkable. Vasculature: Atherosclerotic changes of the aorta. No abdominal aortic aneurysm. Lymph nodes: Unremarkable. No enlarged lymph nodes. IMPRESSION: 1. Cholecystectomy. 2. Diverticulosis, without acute diverticulitis. No small bowel obstruction. No free intraperitoneal air. No diarrheal disease on CT scan. Electronically signed by: Dominic Terrazas MD 03/18/24 21:05 PM Chest X-Ray 03/18/24 19:39 XR chest 1V portable HISTORY: shortness of breath COMPARISON: Chest 01/17/2024. FINDINGS: There is a left-sided dual-chamber pacemaker. The right Port-A-Cath terminates in the distal SVC. An aortic valve prosthesis is again noted. A few bibasilar linear densities favor subsegmental atelectasis or scarring. This is similar to the prior study. No new focal lung consolidations to suggest pneumonia. The heart remains mildly enlarged. No acute fractures. There is mild central pulmonary vascular congestion without overt edema. No pleural effusions. Old, healed right-sided rib fractures. IMPRESSION: Cardiomegaly with mild congestive change. ACT 112: Negative or not required by law. Electronically signed by: Merrick Latif M.D. 03/18/2024 7:59 PM PG Care Time/CCT Total # of Minutes Spent Total Time Spent with Patient: Total time spent is greater than 50% in coordination of care (as documented) at patient's floor/unit and/or counseling patient: Coding Level of Care Code 53412 INT INP/OBS CARE 3/75MIN Diagnoses GIB (gastrointestinal bleeding) K92.2 Acute blood loss anemia D62
[2024-03-19] MEDS: POTASSIUM CHLORIDE CRTAB 20 MEQ TABCR PO STA (10:21)
--- NOTE | 2024-03-19 10:28 | Anesthesiology Consultation ---
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 Consults Requested none Proposed Anesthesia Anesthesia Type: MAC History Surgery Operation Date: 03/19/24 17:10 Proposed Procedures p Esophagogastroduodenoscopy Dr Guy - Aly Foster Case, DO Height/Weight Height: 4 ft 11 in Weight: 107.7 kg Allergies Allergy/AdvReac Type Severity Reaction Status Date / Time adhesive tape AdvReac Mild Skin rash Verified 03/01/24 13:19 Medications Home Medications Medication Instructions Recorded Confirmed Last Taken cholecalciferol (vitamin D3) 50 1,000 unit PO QAM 07/31/19 03/18/24 03/18/24 mcg (2,000 unit) tablet acyclovir 400 mg tablet 400 mg PO AMHS 11/20/19 03/18/24 03/18/24 multivitamin 1 tab PO QAM 03/06/21 03/18/24 03/18/24 acetaminophen 650 mg 975 mg PO QID pain 12/31/21 03/18/24 03/18/24 tablet,extended release Wheeled Walker #1 ea 05/19/22 03/01/24 Unknown dexamethasone 4 mg tablet 20 mg PO WK 08/27/22 03/18/24 03/15/24 sodium di- and 1 tab PO AMHS 08/28/22 03/18/24 03/18/24 monophosphate-potassium phos monobasic 250 mg tablet (Phospha Neutral) diaper,brief,adult,disposable #120 ea 09/07/22 03/01/24 Unknown (Briefs, Adult-Extra Large) incontinence pad, liner, disp #100 ea 09/07/22 03/01/24 Unknown latex gloves (Latex Gloves, Large) #100 ea 09/07/22 03/01/24 Unknown blood sugar diagnostic (OneTouch #100 ea 12/10/22 03/01/24 Unknown Ultra Test strips) denosumab 120 mg/1.7 mL (70 mg/mL) 120 mg subcut .Q3 months 01/12/23 03/18/24 Unknown subcutaneous solution (Xgeva) loperamide 2 mg capsule (Imodium 2 mg PO QID PRN Diarrhea 01/12/23 03/18/24 Unknown A-D) albuterol sulfate 90 mcg/actuation 2 inh inhalation Q6 PRN Shortness 01/15/24 03/18/24 01/15/24 aerosol inhaler Of Breath aspirin 81 mg chewable tablet 81 mg PO QAM 01/15/24 03/18/24 03/18/24 calcium carbonate 600 mg-vitamin 1 tab PO QAM 01/15/24 03/18/24 03/18/24 D3 5 mcg (200 unit) tablet (Calcium 600 + D(3)) cyanocobalamin (vitamin B-12) 100 100 mcg PO QAM 01/15/24 03/18/24 03/18/24 mcg tablet loratadine 10 mg tablet 10 mg PO QAM 01/15/24 03/18/24 03/18/24 potassium chloride 10 mEq 10 meq PO AMHS 01/15/24 03/18/24 03/18/24 tablet,extended release prochlorperazine maleate 10 mg 10 mg PO Q6 PRN Nausea 01/15/24 03/18/24 Unknown tablet venlafaxine 150 mg 150 mg PO QPM 01/15/24 03/18/24 03/17/24 capsule,extended release 24 hr venlafaxine 75 mg capsule,extended 75 mg PO QAM 01/15/24 03/18/24 03/18/24 release 24 hr warfarin 10 mg tablet See Protocol PO 5XWK 01/15/24 03/18/24 03/17/24 Oxygen Home [id number] 01/18/24 03/01/24 Unknown warfarin 4 mg tablet See Protocol PO 2XWK 01/18/24 03/18/24 03/17/24 atorvastatin 10 mg tablet 10 mg PO QAM #90 tabs 01/19/24 03/18/24 03/18/24 albuterol sulfate 1.25 mg/3 mL 1.25 mg (3 mL) inhalation QID PRN 01/20/24 03/18/24 Unknown solution for nebulization shortness of breath or wheezing #90 mL metoprolol tartrate 25 mg tablet 25 mg PO BID #180 tabs 02/15/24 03/18/24 03/18/24 furosemide 40 mg tablet (Lasix) 20 mg PO DAILY 03/01/24 03/18/24 03/18/24 pantoprazole 40 mg tablet,delayed 40 mg PO DAILY 03/18/24 03/18/24 03/18/24 release Active Medications Generic Name Dose Route Start Last Admin Trade Name Freq PRN Reason Stop Dose Admin Atorvastatin Calcium 10 mg 03/19/24 09:00 03/19/24 08:05 Atorvastatin 10 Mg Tab PO 04/18/24 08:59 10 mg QAM DEVON Administration Calcium/Vitamin D 1 tab 03/19/24 09:00 03/19/24 08:05 Calcium 600mg + Vit D 400 Iu Tab PO 04/18/24 08:59 1 tab QAM DEVON Administration Pantoprazole Sodium 40 mg/ 100 mls @ 20 mls/hr 03/18/24 14:45 03/19/24 08:08 Dextrose IV 04/17/24 14:44 8 mg/hr Q5H DEVON 20 mls/hr Administration 8 MG/HR Acetaminophen 1,000 mg in 100 mls @ 400 mls/hr 03/18/24 18:16 03/19/24 06:01 Ofirmev IV 03/21/24 18:15 Infused Q8H PRN Infusion Pain or Fever Lactated Ringer's 1,000 mls @ 100 mls/hr 03/18/24 19:45 03/19/24 05:59 Lr IV 03/19/24 15:44 100 mls/hr .Q10H DEVON Administration Potassium Chloride 10 meq 03/18/24 21:00 03/19/24 08:05 Potassium Chloride 10 Meq Tabcr PO 04/17/24 20:59 10 meq AMHS DEVON Administration Potassium Phosphate 1 tab 03/18/24 21:00 03/19/24 08:05 Pot Phosphate Monobasic W/ Sod Tab PO 04/17/24 20:59 1 tab AMHS DEVON Administration Venlafaxine HCl 75 mg 03/19/24 09:00 03/19/24 08:05 Venlafaxine Hcl Xr 75 Mg Capxr PO 04/18/24 08:59 75 mg QAM DEVON Administration Venlafaxine HCl 150 mg 03/18/24 21:00 03/18/24 21:39 Venlafaxine Hcl Xr 150 Mg Capxr PO 04/17/24 20:59 150 mg QPM DEVON Administration Vitamin D 50 mcg 03/19/24 09:00 03/19/24 08:05 Cholecalciferol 25 Mcg (1000 Units) Tab PO 04/18/24 08:59 50 mcg QAM DEVON Administration Past Medical History Medical History History of pulmonary embolism Hypercoagulable state Coronary artery disease Cardiac pacemaker (2017) Morbid obesity with BMI of 50.0-59.9, adult Hypomagnesemia Vitamin D deficiency Aortic stenosis CHF exacerbation (HFpEF) heart failure with preserved ejection fraction Pancytopenia Acute on chronic respiratory failure with hypoxia Sepsis Pneumonia due to 2019 novel coronavirus Endometrial intraepithelial neoplasia (EIN) Myeloma Morbid obesity Post-menopausal bleeding Degenerative disc disease Osteoarthritis Hyperlipidemia Diabetes mellitus, type 2 NIDDM History of seizure last seizure 1995 Sleep apnea CPAP + 2 LPM O2 qhs Urinary leakage Basal cell carcinoma face Cervical radiculopathy Positional vertigo Post herpetic neuralgia hx shingles Hemorrhoids Pulmonary embolism years ago (no definitive etiology)- on warfarin Depression 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; s/p surgery, radiation, chemo (receiving weekly oral/IV chemo Fridays + dexamethasone 40mg pretreatment prior to chemo) Anxiety Fracture, humerus Past Family History Family History Mother , 89yo Myocardial infarction Congestive heart failure Father , Pt unsure of details of father's health history;Knows he had facial cancer Malignant neoplasm of oral cavity Sister , May 2019 of copd Diabetes Breast cancer Son Hypertension Grandmother Diabetes Denies family history of Prostate cancer Lung cancer Colorectal cancer Past Surgical History Surgical History S/P TAVR (transcatheter aortic valve replacement) Aortic valve replaced History of surgery right distal humerus replacement S/P tubal ligation S/P tooth extraction History of endometrial biopsy S/P dilation and curettage History of cataract surgery Bilateral History of tonsillectomy History of appendectomy History of bilateral carpal tunnel release History of cholecystectomy History of knee replacement procedure of left knee History of knee replacement procedure of right knee H/O surgical biopsy Right distal humerus 11/21/18 Social History Smoking Status: Never smoker Do You Dip or Chew Tobacco: No Hx Alcohol Use: No Alcohol type: wine alcohol intake frequency: holidays/special occasions only Hx Substance Use: No substance use type: does not use Last Used Substance: Hours (ago) Physical Exam Vital Signs Last Vital Signs Temp 37.0 C 03/19/24 07:22 Pulse 93 H 03/19/24 07:31 Resp 19 03/19/24 07:22 BP 105/62 03/19/24 07:22 Pulse Ox 92 03/19/24 07:22 O2 Del Method Room Air 03/19/24 07:22 Testing Laboratory Results 03/19/24 07:05 03/19/24 07:05 PT 13.5 Seconds (9.0-12.0) H 03/19/24 07:05 INR 1.3 (0.9-1.1) H 03/19/24 07:05 APTT 42 Seconds (21-31) H 03/18/24 14:48 Urine Color Yellow 03/18/24 Unknown Urine Appearance Clear (Clear) 03/18/24 Unknown Urine pH 6.0 (4.5-7.5) 03/18/24 Unknown Ur Specific [place] > 1.045 (1.000-1.030) H 03/18/24 Unknown Urine Protein 1+ (Negative) H 03/18/24 Unknown Urine Glucose (UA) Negative (Negative) 03/18/24 Unknown Urine Ketones Negative (Negative) 03/18/24 Unknown Urine Nitrite Negative (Negative) 03/18/24 Unknown Ur Leukocyte Esterase Negative (Negative) 03/18/24 Unknown Urine WBC (Auto) 6-10 /hpf (0-5) H 03/18/24 Unknown Urine RBC (Auto) 0-2 /hpf (0-2) 03/18/24 Unknown U Hyaline Cast (Auto) 0-2 /lpf (0-2) 03/18/24 Unknown U Epithel Cells (Auto) 3-5 /hpf (0-2) H 03/18/24 Unknown Urine Bacteria (Auto) None Seen (None Seen) 03/18/24 Unknown Blood Type A Negative 03/18/24 14:48 Antibody Screen POSITIVE A 03/18/24 14:48 03/19/24 07:35 POC Glucose 146 H Electrocardiogram Date: 03/18/2418-Mar-2024 15:19:04 [facility]-EDSTAT ROUTINE RETRIEVAL Ventricular-paced rhythm with occasional AV dual-paced complexes Abnormal ECG When compared with ECG of 15-JAN-2024 20:28, Vent. rate has decreased BY 29 BPM 25mm/s10mm/[id number] 243CID: 23Referred by: REFERRED SELF Unconfirmed Vent. rate 70 BPM NH interval * ms QRS duration 148 ms QT/QTc 434/468 ms Chest X-Ray Date: 03/18/24 HISTORY: shortness of breath COMPARISON: Chest 01/17/2024. FINDINGS: There is a left-sided dual-chamber pacemaker. The right Port-A-Cath terminates in the distal SVC. An aortic valve prosthesis is again noted. A few bibasilar linear densities favor subsegmental atelectasis or scarring. This is similar to the prior study. No new focal lung consolidations to suggest pneumonia. The heart remains mildly enlarged. No acute fractures. There is mild central pulmonary vascular congestion without overt edema. No pleural effusions. Old, healed right-sided rib fractures. IMPRESSION: Cardiomegaly with mild congestive change. Echocardiogram Date: 01/16/24 EF: 50-55 LV Function: normal RWMA: no none (possibly due to pacemaker) Other Findings: + LVH (severe) Bioprosthetic Ao valve
--- NOTE | 2024-03-19 11:54 | GI REPORT ---
Patient Name: Chantel Roy Procedure Date: 03/19/2024 11:37 AM Date of : 1940 Admit Type: Inpatient Age: 83 Gender: Female Attending MD: Aly Guy DO, Procedure: Upper GI endoscopy Providers: Aly Guy DO Referring MD: Kulwinder Magallanes MD Indications: Acute post hemorrhagic anemia, Gastrointestinal bleeding of unknown origin Medicines: Monitored Anesthesia Care Complications: No immediate complications. Estimated Blood Loss: Estimated blood loss: none. Procedure: Pre-Anesthesia Assessment: - Prior to the procedure, a History and Physical was performed, and patient medications and allergies were reviewed. The patient's tolerance of previous anesthesia was also reviewed. The risks and benefits of the procedure and the sedation options and risks were discussed with the patient. All questions were answered, and informed consent was obtained. Prior Anticoagulants: The patient has taken Coumadin (warfarin), last dose was 3 days prior to procedure. ASA Grade Assessment: IV - A patient with severe systemic disease that is a constant threat to life. After reviewing the risks and benefits, the patient was deemed in satisfactory condition to undergo the procedure. After obtaining informed consent, the endoscope was passed under direct vision. Throughout the procedure, the patient's blood pressure, pulse, and oxygen saturations were monitored continuously. The Endoscope was introduced through the mouth, and advanced to the third part of duodenum. The upper GI endoscopy was accomplished without difficulty. The patient tolerated the procedure well. Findings: Patchy, white plaques were found in the upper third of the esophagus and in the middle third of the esophagus. Cells for cytology were obtained by brushing. Localized mild inflammation characterized by erythema was found in the gastric antrum. The examined duodenum was normal. Impression: - Esophageal plaques were found, suspicious for candidiasis. Cells for cytology obtained. - Gastritis. - Normal examined duodenum. Recommendation: - [facility] care. - Clear liquid diet. - Continue present medications. Aly Guy DO 03/19/2024 11:53:35 AM This report has been signed electronically. Note Initiated On: 03/19/2024 11:37 AM Number of Addenda: 0 I attest to the content of the Intraoperative Record and orders documented therein, exceptions below {[id number]}
[2024-03-19] MEDS: HEPARIN 100 UNIT/ML 5ML FLUSH ONE (12:22)
[2024-03-19] MEDS: PROPOFOL IV EMULSION 10 MG/ML 20 ML VIAL IV ONE (13:04)
[2024-03-19] MEDS: LIDOCAINE 2% 2 ML VIAL/AMP(20MG/ML) INFIL ONE ×2 (13:04)
--- NOTE | 2024-03-19 13:10 | Hospitalist Progress Note ---
Date of Service March 19, 2024 Assessment & Plan (1) Acute blood loss anemia: Plan: Melena described by patient for 1 week, worse in last 24 hours - noted prior hospitalization of lower/upper GI bleed in Aug 2022. PCP visit 03/01/2024 pt reporting diarrhea with + blood. Pantoprazole 40 mg IV BID Hgb stable 8.6, no signs of bleeding on exam - Transfuse < 7 or symptomatic - 2 units ordered on hold due to antibodies present they are not immediately available - if needing transfusion consider transfusion with 1unit platelets and calcium Suspected GI source, GI consulted - EGD 03/[address] Guy - findings suggestive of selin, culture pending. Gastritis - clear liquid diet Nystatin swish and swallow ordered Chronic AC - Coumadin for hx of VTE - INR supratherapeutic on arrival, given vit K - Will continue to hold given acute blood loss anemia Heme consulted, appreciate recs (2) Diarrhea: Plan: Acute on chronic CT A/P: diverticulosis without diverticulitis, no acute findings for cause of diarrhea Stool studies and c. diff PCR pending (3) Myeloma: Plan: Possible alternative cause of her anemia Ferritin, iron studies, B12, folate, retic count - WNL LDH 261 Consult hematology (4) Hypotension: Plan: Also with CHF - daily weights lasix and metoprolol held on admission Random cortisol pending 100 mg hydrocortisone ordered (5) Hypomagnesemia: Plan: Also with hypokalemia. Mag Replaced IV x 2g K replaced PO Calcium replaced with 1g calcium gluconate AM BMP and Mag Plan VTE Prophylaxis - SCDs, supratherapeutic INR on admission Disposition - continued inpatient stay offered to call patient family, pt declined this 03/19 Admission and Anticipated Discharge Date Admission Date: March 18, 2024 Subjective Patient sitting in the chair after EGD reports ongoing fatigue and diarrhea but unable to quanitfy how long these have been going on for. Denies pain Did have diaphoresis overnight, states this has not been happening at home Did say she had the worst heartburn of her life last week Lives alone - still drives Review of Systems Review of Systems: All systems reviewed & are unremarkable except as noted in Subjective Physical Exam Physical Exam: General: NAD, VS as above Resp: normal respiratory effort, lungs clear to auscultation CV: RRR, no murmur, Abd: normal bowel sounds, non tender, no hepatosplenomegaly Extremities: Moves all extremities, 1+ Edema right LE Neuro: A&O x3, Results & Data Results & Data Vital Signs (Past 12 Hours) Vital Signs Temp Pulse Pulse Pulse Resp BP Pulse Ox 03/19/24 12:41 36.6 C 79 18 98/59 L 93 03/19/24 12:20 86 16 111/54 L 93 03/19/24 12:05 84 16 92/55 L 96 03/19/24 11:50 75 16 108/49 L 93 03/19/24 10:44 36.4 C L 89 16 108/58 L 95 03/19/24 08:00 03/19/24 07:31 93 H 03/19/24 07:22 37.0 C 87 19 105/62 92 03/19/24 05:39 36.5 C 96 H 22 125/74 03/19/24 03:49 37.6 C H 91 H 21 94/61 L 91 03/19/24 02:29 87 24 93 O2 Del Method O2 Flow Rate 03/19/24 12:41 Room Air 03/19/24 12:20 Room Air 03/19/24 12:05 Oxymask 4 03/19/24 11:50 Oxymask 4 03/19/24 10:44 Room Air 03/19/24 08:00 Room Air 03/19/24 07:31 03/19/24 07:22 Room Air 03/19/24 05:39 03/19/24 03:49 CPAP 03/19/24 02:29 Laboratory Results CBC, chemistry, mag, INR reviewed Diagnostic Findings CXR, abd pelvis CT reviewed PG Care Time/CCT Total # of Minutes Spent Total Time Spent with Patient: Total time spent is greater than 50% in coordination of care (as documented) at patient's floor/unit and/or counseling patient: Coding Level of Care Code 96438 SUB INP/OBS CARE 3/50MIN Diagnoses Acute blood loss anemia D62 Diarrhea R19.7 Multiple myeloma not having achieved remission C90.00 Multiple myeloma remission status: not in remission Hypotension I95.9 Hypomagnesemia E83.42 (3) Myeloma Multiple myeloma remission status: not in remission Qualified Code(s): C90.00 - Multiple myeloma not having achieved remission
[2024-03-19] MEDS: MAGNESIUM SULFATE / D5W 1 GM/100 ML BAG IV SCH (13:45)
--- NOTE | 2024-03-19 14:52 | Oncology Consultation ---
Date of Consultation March 19, 2024 History of Present Illness Attending Physician: Kulwinder Magallanes MD Allergies Allergy/AdvReac Type Severity Reaction Status Date / Time adhesive tape AdvReac Mild Skin rash Verified 03/19/24 10:55 Home Medications Medication Instructions Recorded Confirmed Type cholecalciferol (vitamin D3) 50 1,000 unit PO QAM 07/31/19 03/18/24 History mcg (2,000 unit) tablet acyclovir 400 mg tablet 400 mg PO AMHS 11/20/19 03/18/24 History multivitamin 1 tab PO QAM 03/06/21 03/18/24 History acetaminophen 650 mg 975 mg PO QID pain 12/31/21 03/18/24 History tablet,extended release Wheeled Walker #1 ea 05/19/22 03/01/24 Rx dexamethasone 4 mg tablet 20 mg PO WK 08/27/22 03/18/24 History sodium di- and 1 tab PO AMHS 08/28/22 03/18/24 History monophosphate-potassium phos monobasic 250 mg tablet (Phospha Neutral) diaper,brief,adult,disposable #120 ea 09/07/22 03/01/24 Rx (Briefs, Adult-Extra Large) incontinence pad, liner, disp #100 ea 09/07/22 03/01/24 Rx latex gloves (Latex Gloves, Large) #100 ea 09/07/22 03/01/24 Rx blood sugar diagnostic (OneTouch #100 ea 12/10/22 03/01/24 Rx Ultra Test strips) denosumab 120 mg/1.7 mL (70 mg/mL) 120 mg subcut .Q3 months 01/12/23 03/18/24 History subcutaneous solution (Xgeva) loperamide 2 mg capsule (Imodium 2 mg PO QID PRN Diarrhea 01/12/23 03/18/24 History A-D) albuterol sulfate 90 mcg/actuation 2 inh inhalation Q6 PRN Shortness 01/15/24 03/18/24 History aerosol inhaler Of Breath aspirin 81 mg chewable tablet 81 mg PO QAM 01/15/24 03/18/24 History calcium carbonate 600 mg-vitamin 1 tab PO QAM 01/15/24 03/18/24 History D3 5 mcg (200 unit) tablet (Calcium 600 + D(3)) cyanocobalamin (vitamin B-12) 100 100 mcg PO QAM 01/15/24 03/18/24 History mcg tablet loratadine 10 mg tablet 10 mg PO QAM 01/15/24 03/18/24 History potassium chloride 10 mEq 10 meq PO AMHS 01/15/24 03/18/24 History tablet,extended release prochlorperazine maleate 10 mg 10 mg PO Q6 PRN Nausea 01/15/24 03/18/24 History tablet venlafaxine 150 mg 150 mg PO QPM 01/15/24 03/18/24 History capsule,extended release 24 hr venlafaxine 75 mg capsule,extended 75 mg PO QAM 01/15/24 03/18/24 History release 24 hr warfarin 10 mg tablet See Protocol PO 5XWK 01/15/24 03/18/24 History Oxygen Home [id number] 01/18/24 03/01/24 History warfarin 4 mg tablet See Protocol PO 2XWK 01/18/24 03/18/24 History atorvastatin 10 mg tablet 10 mg PO QAM #90 tabs 01/19/24 03/18/24 Rx albuterol sulfate 1.25 mg/3 mL 1.25 mg (3 mL) inhalation QID PRN 01/20/24 03/18/24 Rx solution for nebulization shortness of breath or wheezing #90 mL metoprolol tartrate 25 mg tablet 25 mg PO BID #180 tabs 02/15/24 03/18/24 Rx furosemide 40 mg tablet (Lasix) 20 mg PO DAILY 03/01/24 03/18/24 History pantoprazole 40 mg tablet,delayed 40 mg PO DAILY 03/18/24 03/18/24 History release Patient History Medical History History of pulmonary embolism Hypercoagulable state Coronary artery disease Cardiac pacemaker (2017) Morbid obesity with BMI of 50.0-59.9, adult Hypomagnesemia Vitamin D deficiency Aortic stenosis CHF exacerbation (HFpEF) heart failure with preserved ejection fraction Pancytopenia Acute on chronic respiratory failure with hypoxia Sepsis Pneumonia due to 2019 novel coronavirus Endometrial intraepithelial neoplasia (EIN) Myeloma Morbid obesity Post-menopausal bleeding Degenerative disc disease Osteoarthritis Hyperlipidemia Diabetes mellitus, type 2 NIDDM History of seizure last seizure 1995 Sleep apnea CPAP + 2 LPM O2 qhs Urinary leakage Basal cell carcinoma face Cervical radiculopathy Positional vertigo Post herpetic neuralgia hx shingles Hemorrhoids Pulmonary embolism years ago (no definitive etiology)- on warfarin Depression 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; s/p surgery, radiation, chemo (receiving weekly oral/IV chemo Fridays + dexamethasone 40mg pretreatment prior to chemo) Anxiety Fracture, humerus Surgical History S/P TAVR (transcatheter aortic valve replacement) Aortic valve replaced History of surgery right distal humerus replacement S/P tubal ligation S/P tooth extraction History of endometrial biopsy S/P dilation and curettage History of cataract surgery Bilateral History of tonsillectomy History of appendectomy History of bilateral carpal tunnel release History of cholecystectomy History of knee replacement procedure of left knee History of knee replacement procedure of right knee H/O surgical biopsy Right distal humerus 11/21/18 Family History Mother , 89yo Myocardial infarction Congestive heart failure Father , Pt unsure of details of father's health history;Knows he had facial cancer Malignant neoplasm of oral cavity Sister , May 2019 of copd Diabetes Breast cancer Son Hypertension Grandmother Diabetes Denies family history of Prostate cancer Lung cancer Colorectal cancer Social History Smoking Status: Never smoker Second Hand Exposure: No; Do You Dip or Chew Tobacco: No; Hx Alcohol Use: No Hx Substance Use: No Preferred Language: Chinese Communication Ability: Effective Visual Impairment: No Limitations Hearing Ability: Normal Ui Developer With Angular Js Required: No Beliefs That Will Affect Care: None marital status: / Current Living Situation: Alone Current Living Situation Comment: lives with son and [id number] current occupational status: retired 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 Feels Safe at Home: Yes Safety Concerns: Feels Safe At This Time Childhood Exposure to Second-Hand Smoke: No Diet: other caffeine: Yes (1 cup/day) during the past year weight has: remained stable Dental Care, Regularly: No Physical Activity Frequency: Does not Exercise Seatbelt Use: sometimes Sunscreen Use: Yes Assistive Devices: CPAP and Oxygen - at Night Results & Data Vital Signs (Past 12 Hours) Vital Signs Temp Pulse Pulse Pulse Resp BP Pulse Ox 03/19/24 12:41 36.6 C 79 18 98/59 L 93 03/19/24 12:20 86 16 111/54 L 93 03/19/24 12:05 84 16 92/55 L 96 03/19/24 11:50 75 16 108/49 L 93 03/19/24 10:44 36.4 C L 89 16 108/58 L 95 03/19/24 08:00 03/19/24 07:31 93 H 03/19/24 07:22 37.0 C 87 19 105/62 92 03/19/24 05:39 36.5 C 96 H 22 125/74 03/19/24 03:49 37.6 C H 91 H 21 94/61 L 91 O2 Del Method O2 Flow Rate 03/19/24 12:41 Room Air 03/19/24 12:20 Room Air 03/19/24 12:05 Oxymask 4 03/19/24 11:50 Oxymask 4 03/19/24 10:44 Room Air 03/19/24 08:00 Room Air 03/19/24 07:31 03/19/24 07:22 Room Air 03/19/24 05:39 03/19/24 03:49 CPAP
--- NOTE | 2024-03-19 15:17 | Electrocardiogram Report ---
Test Reason : Blood Pressure : / mmHG Vent. Rate : 070 BPM Atrial Rate : 070 BPM P-R Int : 000 ms QRS Dur : 148 ms QT Int : 434 ms P-R-T Axes : 040 -87 099 degrees QTc Int : 468 ms Ventricular-paced rhythm with occasional AV dual-paced complexes Abnormal ECG When compared with ECG of 15-JAN-2024 20:28, Vent. rate has decreased BY 29 BPM Confirmed by Power Becerril ([id number]) on 03/19/2024 3:17:07 PM Referred By: REFERRED SELF Confirmed By:Power Becerril
[2024-03-19] MEDS: CALCIUM GLUCONATE 1,000 MG/60 ML BAG IV STA (15:18)
[2024-03-19] MEDS: HYDROCORTISONE SOD 100 MG in SYRINGE 0 ML IV ONE (15:19)
--- NOTE | 2024-03-19 16:01 | Anesthesiology Progress Note ---
Date of Service March 19, 2024 Anesthesia Post Procedure Vital Signs Vital Signs: Temp Pulse Pulse Pulse Resp BP BP 03/19/24 12:41 36.6 C 79 18 98/59 L 03/19/24 12:20 86 16 111/54 L 03/19/24 12:05 84 16 92/55 L 03/19/24 11:50 75 16 108/49 L 03/19/24 10:44 36.4 C L 89 16 108/58 L 03/19/24 08:00 03/19/24 07:31 93 H 03/19/24 07:22 37.0 C 87 19 105/62 03/19/24 05:39 36.5 C 96 H 22 125/74 03/19/24 03:49 37.6 C H 91 H 21 94/61 L 03/19/24 02:29 87 24 03/18/24 23:15 37.8 C H 91 H 18 108/63 03/18/24 22:33 89 03/18/24 22:15 90 24 03/18/24 20:20 03/18/24 20:20 37.6 C H 74 22 125/76 03/18/24 19:13 86 19 95/62 L 03/18/24 18:52 84 13 88/55 L 03/18/24 17:47 79 03/18/24 17:45 79 20 03/18/24 17:31 76 18 86/56 L 03/18/24 17:29 84 13 100/45 L 03/18/24 17:16 85 27 H 03/18/24 17:15 101/58 L 03/18/24 17:13 88 27 H 03/18/24 17:01 83 28 H 03/18/24 17:00 108/56 L 03/18/24 16:59 72 33 H 03/18/24 16:56 81 16 94/50 L 03/18/24 16:45 87 22 03/18/24 16:45 94/50 L 03/18/24 16:35 72 25 H Pulse Ox O2 Del Method O2 Flow Rate 03/19/24 12:41 93 Room Air 03/19/24 12:20 93 Room Air 03/19/24 12:05 96 Oxymask 4 03/19/24 11:50 93 Oxymask 4 03/19/24 10:44 95 Room Air 03/19/24 08:00 Room Air 03/19/24 07:31 03/19/24 07:22 92 Room Air 03/19/24 05:39 03/19/24 03:49 91 CPAP 03/19/24 02:29 93 03/18/24 23:15 91 CPAP 03/18/24 22:33 03/18/24 22:15 91 03/18/24 20:20 Room Air, CPAP 03/18/24 20:20 92 Room Air 03/18/24 19:13 96 Nasal Cannula 03/18/24 18:52 95 Room Air 03/18/24 17:47 03/18/24 17:45 03/18/24 17:31 03/18/24 17:29 03/18/24 17:16 03/18/24 17:15 03/18/24 17:13 90 03/18/24 17:01 90 03/18/24 17:00 03/18/24 16:59 87 L 03/18/24 16:56 92 03/18/24 16:45 94 03/18/24 16:45 03/18/24 16:35 92 Transfer of Care Handoff Completed per policy Notes Mental Status: alert / awake / arousable and participated in evaluation Patient Amnestic to Procedure: Yes Nausea / Vomiting: adequately controlled Pain: adequately controlled Airway Patency, RR, SpO2: stable & adequate BP & HR: stable & adequate Hydration State: stable & adequate Anesthetic Complications: no major complications apparent
[2024-03-19] MEDS: NYSTATIN SUSP 500,000 U/5 ML UDC PO SCH (16:31)
[2024-03-19] MEDS: PANTOprazole 40 MG in SYRINGE 0 ML IV SCH (19:44)
[2024-03-20 06:20] LABS: INR 1.1 (0.9-1.1)
[2024-03-20 06:35] LABS: BUN Creatinine Ratio 13.5 (10-20); Calcium 7.3 mg/dl (8.6-10.3); Creatinine Clr Calc Pharmacy 62.7 ml/min; Est GFR (African American) 86.8 ml/min; Est GFR (Non-African American) 74.9 ml/min; Potassium 3.3 mmol/L (3.5-5.1)
[2024-03-20 06:44] LABS: Basophils # (auto) 0.01 K/uL (0.00-0.20); Basophils % (auto) 0.4 %; Eosinophils # (auto) 0.11 K/uL (0.00-0.50); Eosinophils % (auto) 3.9 %; Hematocrit (blood only) 25.7 % (37.0-47.0); Hemoglobin 8.4 g/dl (12.0-16.0); Immature Granulocytes # (auto) 0.05 K/uL (0.01-0.20); Immature Granulocytes % (auto) 1.8 %; Lymphocytes # (auto) 0.23 K/uL (1.20-3.40); Lymphocytes % (auto) 8.1 %; Mean Corpuscular Hemoglobin 29.3 pg (25.0-34.0); Mean Corpuscular Hgb Conc 32.7 g/dL (32.0-36.0); Mean Corpuscular Volume 89.5 fL (80.0-100.0); Monocytes # (auto) 0.31 K/uL (0.11-0.59); Monocytes % (auto) 10.9 %; Neutrophils # (auto) 2.13 K/uL (1.40-6.50); Neutrophils % (auto) 74.9 %; Nucleated RBC # (auto) 0.02 K/uL (0.00-0.12); Nucleated RBC % (auto) 0.7 %; Platelet Count 58 K/uL (130-400); Platelet Estimate Decreased (Normal); RDW Coefficient of Variation 18.6 % (11.5-14.5); RDW Standard Deviation 60.1 fL (36.4-46.3); Red Blood Count 2.87 M/uL (4.20-5.40); White Blood Count 2.84 K/ul (4.8-10.8)
[2024-03-20] MEDS: POTASSIUM CHLORIDE CRTAB 20 MEQ TABCR PO SCH (10:21)
--- NOTE | 2024-03-20 10:53 | Gastroenterology Progress Note ---
Date of Service March 20, 2024 Assessment & Plan (1) GIB (gastrointestinal bleeding): (2) Acute blood loss anemia: Plan Patient is a 83 y.o. female admitted with melena and symptomatic anemia in the setting of chronic anticoagulation with Coumadin and ASA now with diarrhea. -Await C Diff and Biofire as ordered. -Protonix 40 mg IV BID. -Await heme/onc evaluation. -Continue supportive care per primary team. Admission and Anticipated Discharge Date Admission Date: March 18, 2024 Supervising Physician Co-Signing Physician Notes Agree with JORGE Sapp as above Interviewed and Examined patient as above Abd: Soft, NT, ND Continue current therapy and supportive care No further invasive testing at present Subjective Patient is status post EGD by Dr. Guy yesterday. No source of GIB identified. No significant drop in H&H overnight. Denies any abdominal pain, n/v. States she did have 2 liquid stools this morning. No overt GIB. Stool sent for C Diff and Biofire, which is pending. Patient is awaiting heme/onc consultation. Placed on clear liquid diet and PPI switched to 40 mg IV BID. Review of Systems Constitutional: no fever and no chills Respiratory: no problem reported Cardiovascular: no problem reported Gastrointestinal: as per Subjective / HPI Physical Exam Constitutional: WD/WN, vitals as above Respiratory: normal respiratory effort, lungs clear to auscultation Cardiovascular: Rate/Rhythm: regular rate and regular rhythm Gastrointestinal (Abdomen): Inspection/Auscultation: + significant pannus and + hyperactive bowel sounds Percussion/Palpation: abdomen soft; abdomen nontender, no guarding and abdomen not rigid Psychiatric: A+Ox3, euthymic affect Results & Data Results & Data Vital Signs (Past 12 Hours) Vital Signs Temp Pulse Pulse Resp BP Pulse Ox O2 Del Method 03/20/24 10:42 36.9 C 102 H 17 126/70 92 Room Air 03/20/24 08:00 Room Air 03/20/24 07:30 36.5 C 90 19 99/64 L 96 CPAP 03/20/24 03:52 36.4 C L 87 18 115/65 96 CPAP 03/20/24 02:36 78 22 94 03/20/24 00:33 85 03/19/24 23:39 36.3 C L 90 20 103/56 L 94 CPAP PG Care Time/CCT Total # of Minutes Spent Total Time Spent with Patient: Total time spent is greater than 50% in coordination of care (as documented) at patient's floor/unit and/or counseling patient: Coding Level of Care Code 32666 SUB INP/OBS CARE 3/50MIN Diagnoses GIB (gastrointestinal bleeding) K92.2 Acute blood loss anemia D62
[2024-03-20 12:30] LABS: Adenovirus F 40/41 PCR Not Detected (NotDetected); Astrovirus PCR Not Detected (NotDetected); Campylobacter PCR Not Detected (NotDetected); Cryptosporidium PCR Not Detected (NotDetected); Cyclospora cayetanensis PCR Not Detected (NotDetected); Entamoeba histolytica PCR Not Detected (NotDetected); Enteroaggregative E.coli(EAEC) Not Detected (NotDetected); Enteropathogenic E.coli (EPEC) Not Detected (NotDetected); Enterotoxigenic E.coli (ETEC) Not Detected (NotDetected); Giardia lamblia PCR Not Detected (NotDetected); Norovirus GI/GII PCR Not Detected (NotDetected); Plesiomonas shigelloides PCR Not Detected (NotDetected); Rotavirus A PCR Not Detected (NotDetected); Salmonella PCR Not Detected (NotDetected); Sapovirus PCR Not Detected (NotDetected); Shiga-like Toxin E.coli (STEC) Not Detected (NotDetected); Shigella/Enteroinvasive E.coli Not Detected (NotDetected); Vibrio cholerae PCR Not Detected (NotDetected); Vibrio species PCR Not Detected (NotDetected); Yersinia enterocolitica PCR Not Detected (NotDetected)
[2024-03-20] MEDS: HYDROCORTISONE SOD 50 MG in SYRINGE 0 ML IV SCH (12:33)
[2024-03-20] MEDS: FUROSEMIDE 40 MG TAB PO ONE (14:31)
--- NOTE | 2024-03-20 18:46 | Hospitalist Progress Note ---
Date of Service March 20, 2024 Assessment & Plan (1) Acute blood loss anemia: Plan: Melena described by patient for 1 week, worse in last 24 hours - noted prior hospitalization of lower/upper GI bleed in Aug 2022. PCP visit 03/01/2024 pt reporting diarrhea with + blood. Pantoprazole 40 mg IV BID Hgb stable, no signs of bleeding on exam - Transfuse < 7 or symptomatic - 2 units ordered on hold due to antibodies present they are not immediately available - if needing transfusion consider transfusion with 1unit platelets and calcium Suspected GI source, GI consulted - EGD 03/[address] Guy - findings suggestive of selin, culture pending. 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 Waldrop recommend off anticoagulation for at least a week monitor platelet - can be resumed in the outpatient setting Heme consulted, appreciate recs (2) Diarrhea: Plan: Acute on chronic CT A/P: diverticulosis without diverticulitis, no acute findings for cause of diarrhea Stool studies and c. diff PCR negative fecal occult blood still pending (3) Myeloma: Plan: Possible alternative cause of her anemia Ferritin, iron studies, B12, folate, retic count - WNL LDH 261 Consult hematology (4) Hypotension: Plan: Also with CHF - daily weights Lasix and metoprolol held on admission - will resume metoprolol as blood pressure allows one-time dose of Lasix given 03/20 continue to monitor volume status and blood pressure Random cortisol 9 100 mg hydrocortisone ordered, continue with 50 mg every 8 hours (5) Hypomagnesemia: Plan: Also with hypokalemia. Mag Replaced IV x 2g K replaced PO again today Calcium replaced with 1g calcium gluconate AM BMP and Mag Plan VTE Prophylaxis - SCDs, holding chemical prophylaxis in setting of GI bleed Disposition - continued inpatient stay discussed case with Dr. Waldrop, hematology/oncology Admission and Anticipated Discharge Date Admission Date: March 18, 2024 Supervising Physician Co-Signing Physician Notes Attending Attestation - Chart reviewed, care plan d/w CHARI Jesus. I agree w/ the brink components of her documentation. Cont stress dose steroids - is on dexamethasone 20mg/week chronically. (this is equivalent to 133mg of prednisone/week) Chris Nolan MD Subjective patient seen earlier this afternoon slightly after lunch. Reports that she is feeling a little bit lousy after multiple episodes of diarrhea but they were able to send it for stool studies. No blood noticed in the diarrhea denies lightheadedness or dizziness patient does endorse that she has had on and off diarrhea for the last couple of years, has never thought to correlate it with her chemo treatments tolerating clear liquid diet without issue, hoping for advance diet soon are reports that patient did get quite short of breath [facility], but did recover quickly telemetry paced in the 80s-100 Review of Systems Review of Systems: All systems reviewed & are unremarkable except as noted in Subjective Physical Exam Physical Exam: General: NAD, VS as above Resp: normal respiratory effort, lungs clear to auscultation CV: RRR, no murmur, Abd: normal bowel sounds, non tender, no hepatosplenomegaly Extremities: Moves all extremities, 1/2+ Edema right LE Neuro: A&O x3, Results & Data Results & Data Vital Signs (Past 12 Hours) Vital Signs Temp Pulse Resp BP Pulse Ox O2 Del Method 03/20/24 16:28 Room Air 03/20/24 15:31 37.1 C 93 H 20 113/62 92 Room Air 03/20/24 10:42 36.9 C 102 H 17 126/70 92 Room Air 03/20/24 08:00 Room Air 03/20/24 07:30 36.5 C 90 19 99/64 L 96 CPAP Laboratory Results CBC and chemistry reviewed PG Care Time/CCT Total # of Minutes Spent Total Time Spent with Patient: Total time spent is greater than 50% in coordination of care (as documented) at patient's floor/unit and/or counseling patient: Coding Level of Care Code 45065 SUB INP/OBS CARE 3/50MIN Diagnoses Acute blood loss anemia D62 Diarrhea R19.7 Multiple myeloma not having achieved remission C90.00 Multiple myeloma remission status: not in remission Hypotension I95.9 Hypomagnesemia E83.42 (3) Myeloma Multiple myeloma remission status: not in remission Qualified Code(s): C90.00 - Multiple myeloma not having achieved remission
[2024-03-20] MEDS: METOPROLOL TARTRATE 25 MG TAB PO SCH (20:16)
[2024-03-20] MEDS: LOPERAMIDE HCL 2 MG CAP PO PRN (20:16)
[2024-03-21 06:53] LABS: BUN Creatinine Ratio 12.5 (10-20); Calcium 7.2 mg/dl (8.6-10.3); Creatinine Clr Calc Pharmacy 53.1 ml/min; Est GFR (African American) 70.4 ml/min; Est GFR (Non-African American) 60.8 ml/min; Magnesium 1.9 mg/dl (1.7-2.4); Potassium 3.5 mmol/L (3.5-5.1)
[2024-03-21 07:02] LABS: Hematocrit (blood only) 26.7 % (37.0-47.0); Hemoglobin 8.8 g/dl (12.0-16.0); Mean Corpuscular Hemoglobin 29.8 pg (25.0-34.0); Mean Corpuscular Volume 90.5 fL (80.0-100.0); Platelet Count 64 K/uL (130-400); RDW Coefficient of Variation 18.9 % (11.5-14.5); RDW Standard Deviation 61.1 fL (36.4-46.3); Red Blood Count 2.95 M/uL (4.20-5.40); White Blood Count 3.66 K/ul (4.8-10.8)
[2024-03-21 07:14] LABS: Acanthocytes 1+; Eosinophils # (auto) 0.07 K/uL (0.00-0.50); Eosinophils % (auto) 1.9 %; Immature Granulocytes # (auto) 0.03 K/uL (0.01-0.20); Immature Granulocytes % (auto) 0.8 %; Lymphocytes # (auto) 0.38 K/uL (1.20-3.40); Lymphocytes % (auto) 10.4 %; Monocytes # (auto) 0.39 K/uL (0.11-0.59); Monocytes % (auto) 10.7 %; Neutrophils # (auto) 2.79 K/uL (1.40-6.50); Neutrophils % (auto) 76.2 %; Ovalocytes 1+; Poikilocytosis Present; Polychromasia 1+; Tear Drop Cells 1+
[2024-03-21] MEDS: NYSTATIN POWDER 15GM BTL EXT PRN (13:09)
[2024-03-21] MEDS: FUROSEMIDE 40 MG TAB PO ONE (14:24)
[2024-03-21] MEDS: WARFARIN SOD 4 MG TAB PO SCH (16:54)
--- NOTE | 2024-03-21 18:15 | Hospitalist Progress Note ---
Date of Service March 21, 2024 Assessment & Plan (1) Acute blood loss anemia: Plan: Melena described by patient for 1 week, worse in last 24 hours - noted prior hospitalization of lower/upper GI bleed in Aug 2022. PCP visit 03/01/2024 pt reporting diarrhea with + blood. Pantoprazole 40 mg IV BID Hgb remains stable - has not required tranfusion Suspected GI source, GI consulted - EGD 03/[address] Guy - findings suggestive of selin, culture pending. 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 diff PCR negative fecal occult blood negative frequency has decreased (3) Myeloma: Plan: Possible alternative cause of her anemia Ferritin, iron studies, B12, folate, retic count - WNL LDH 261 Consult hematology (4) Hypotension: Plan: Also with CHF - daily weights Metoprolol resumed Resumed lasix at 20mg daily - will monitor fr need for additonal diuertics Random cortisol 9 100 mg hydrocortisone ordered 50 mg tapered down to q12 H - Discussed case with Dr. Katerin Doe - primary oncologist - recommend holding home weekly dexamethason () and continue hydrocortiosone taper. Will reevaluating resuming dexamethasone outpatient (5) Hypomagnesemia: Plan: Mag Replaced IV x 2g Also with hypokalemia - improved K replaced PO again today Calcium replaced with 1g calcium gluconate AM BMP Plan VTE Prophylaxis - SCDs, resumed coumadin 03/21 Disposition - continued inpatient stay family updated at bedside discussed case with Dr. doe, hematology/oncology CODE STATUS -- updated to DNR per pt request Admission and Anticipated Discharge Date Admission Date: March 18, 2024 Subjective Patient seen after lunch, sitting up in the chair. Feeling well today, has ambulated in the [place] and up to the bathroom many times no blood in stool not lightheaded or dizzy with low BP Tele - SR 70-90s Review of Systems Review of Systems: All systems reviewed & are unremarkable except as noted in Subjective Physical Exam Physical Exam: General: NAD, VS as above Resp: normal respiratory effort, lungs clear to auscultation CV: RRR, no murmur, Abd: normal bowel sounds, non tender, no hepatosplenomegaly Extremities: Moves all extremities, 1+ Edema LE Neuro: A&O x3, Results & Data Results & Data Vital Signs (Past 12 Hours) Vital Signs Temp Pulse Pulse Resp BP Pulse Ox O2 Del Method 03/21/24 15:30 36.7 C 80 18 111/56 L 95 Room Air 03/21/24 14:00 78 03/21/24 12:13 76 03/21/24 11:10 36.7 C 80 19 106/64 93 Room Air 03/21/24 07:48 36.8 C 73 19 133/66 92 Room Air Laboratory Results CBC and BMP reviewed PG Care Time/CCT Total # of Minutes Spent Total Time Spent with Patient: Total time spent is greater than 50% in coordination of care (as documented) at patient's floor/unit and/or counseling patient: Coding Level of Care Code 04752 SUB INP/OBS CARE 3/50MIN Diagnoses Acute blood loss anemia D62 Diarrhea R19.7 Multiple myeloma not having achieved remission C90.00 Multiple myeloma remission status: not in remission Hypotension I95.9 Hypomagnesemia E83.42 (3) Myeloma Multiple myeloma remission status: not in remission Qualified Code(s): C90.00 - Multiple myeloma not having achieved remission
[2024-03-21] MEDS: HYDROCORTISONE SOD 50 MG in SYRINGE 0 ML IV SCH (20:16)
[2024-03-22] MEDS: FUROSEMIDE 20 MG TAB PO SCH (07:56)
[2024-03-22] MEDS ORDERED: dexAMETHasone 4 MG TAB PO SCH (09:00)
--- NOTE | 2024-03-22 12:34 | Discharge Summary ---
Discharge Summary Date of Service March 22, 2024 Notes For Next Care Provider Medication Changes From Visit ASA 81mg stopped coumadin resumed at 8mg daiyl encouraged imodium for diarrhea Admission HPI Per Admitting Provider Chantel Roy is an 83 year old female who presents to the ER with generalized weakness and black stool. She reports usually having diarrhea but it became much worse 1 week ago, especially over the last 24 hours turning black during this time. No chest pain, GERD, dizziness. She has been more fatigue with generalized bilateral weakness. No fever, chills. No respiratory or urinary acute symptoms. She took all her morning medications today. She takes aspirin and warfarin for a history of pulmonary emboli. Previous hospitalization in February 2022 with lower GI bleed and August 2022 with melena - EGD evaluation was deferred at that time on follow up with gastroenterology. Principal Dx & Hospital Course #1 = Principal Diagnosis (1) Acute blood loss anemia: Melena described by patient for 1 week, worse in last 24 hours - noted prior hospitalization of lower/upper GI bleed in Aug 2022. PCP visit 03/01/2024 pt reporting diarrhea with + blood. Pantoprazole 40 mg IV BID Hgb remains stable - has not required tranfusion Suspected GI source, GI consulted - EGD 03/[address] Guy - findings suggestive of selin, culture pending. Gastritis - okay with advancing diet as no plan for intervention at this time - okay with adding Imodium for loose stools Nystatin swish and swallow ordered Chronic AC - Coumadin for hx of VTE ( last a couple years ago) - INR supratherapeutic on arrival, given vit K - platelets improving, and no bleeding, will resume coumadin at 8mg daily (slighlty lower than home dose - 9mg twice a week) given her supratherapeutic INR on admission Heme consulted, appreciate recs (2) Diarrhea: Acute on chronic CT A/P: diverticulosis without diverticulitis, no acute findings for cause of diarrhea Stool studies and c. diff PCR negative fecal occult blood negative frequency has decreased (3) Myeloma: Possible alternative cause of her anemia Ferritin, iron studies, B12, folate, retic count - WNL LDH 261 Consult hematology (4) Hypotension: Also with CHF - daily weights Metoprolol resumed Resumed lasix at 20mg daily - will monitor fr need for additonal diuertics Random cortisol 9 100 mg hydrocortisone ordered 50 mg tapered down to q12 H - Discussed case with Dr. Katerin Doe - primary oncologist - recommend holding home weekly dexamethason () and continue hydrocortiosone taper. Will reevaluating resuming dexamethasone outpatient (5) Hypomagnesemia: Mag Replaced IV x 2g Also with hypokalemia - improved K replaced PO again today Calcium replaced with 1g calcium gluconate AM BMP Plan VTE Prophylaxis - SCDs, resumed coumadin 03/21 Disposition - continued inpatient stay family updated at bedside discussed case with Dr. ode, hematology/oncology CODE STATUS -- updated to DNR per pt request Discharge Exam General: NAD, VS as above Resp: normal respiratory effort, lungs clear to auscultation CV: RRR, no murmur, Abd: normal bowel sounds, non tender, no hepatosplenomegaly Extremities: Moves all extremities, 1+ Edema LE Neuro: A&O x3, Updated Medication List Medication Instructions Recorded Confirmed Type cholecalciferol (vitamin D3) 50 1,000 unit PO QAM 07/31/19 03/18/24 History mcg (2,000 unit) tablet acyclovir 400 mg tablet 400 mg PO AMHS 11/20/19 03/18/24 History multivitamin 1 tab PO QAM 03/06/21 03/18/24 History acetaminophen 650 mg 975 mg PO QID pain 12/31/21 03/18/24 History tablet,extended release Wheeled Walker #1 ea 05/19/22 03/01/24 Rx dexamethasone 4 mg tablet 20 mg PO WK 08/27/22 03/18/24 History sodium di- and 1 tab PO AMHS 08/28/22 03/18/24 History monophosphate-potassium phos monobasic 250 mg tablet (Phospha Neutral) diaper,brief,adult,disposable #120 ea 09/07/22 03/01/24 Rx (Briefs, Adult-Extra Large) incontinence pad, liner, disp #100 ea 09/07/22 03/01/24 Rx latex gloves (Latex Gloves, Large) #100 ea 09/07/22 03/01/24 Rx blood sugar diagnostic (OneTouch #100 ea 12/10/22 03/01/24 Rx Ultra Test strips) denosumab 120 mg/1.7 mL (70 mg/mL) 120 mg subcut .Q3 months 01/12/23 03/18/24 History subcutaneous solution (Xgeva) loperamide 2 mg capsule (Imodium 2 mg PO QID PRN Diarrhea 01/12/23 03/18/24 History A-D) albuterol sulfate 90 mcg/actuation 2 inh inhalation Q6 PRN Shortness 01/15/24 03/18/24 History aerosol inhaler Of Breath aspirin 81 mg chewable tablet 81 mg PO QAM 01/15/24 03/18/24 History calcium carbonate 600 mg-vitamin 1 tab PO QAM 01/15/24 03/18/24 History D3 5 mcg (200 unit) tablet (Calcium 600 + D(3)) cyanocobalamin (vitamin B-12) 100 100 mcg PO QAM 01/15/24 03/18/24 History mcg tablet loratadine 10 mg tablet 10 mg PO QAM 01/15/24 03/18/24 History potassium chloride 10 mEq 10 meq PO AMHS 01/15/24 03/18/24 History tablet,extended release prochlorperazine maleate 10 mg 10 mg PO Q6 PRN Nausea 01/15/24 03/18/24 History tablet venlafaxine 150 mg 150 mg PO QPM 01/15/24 03/18/24 History capsule,extended release 24 hr venlafaxine 75 mg capsule,extended 75 mg PO QAM 01/15/24 03/18/24 History release 24 hr warfarin 10 mg tablet See Protocol PO 5XWK 01/15/24 03/18/24 History Oxygen Home [id number] 01/18/24 03/01/24 History warfarin 4 mg tablet See Protocol PO 2XWK 01/18/24 03/18/24 History atorvastatin 10 mg tablet 10 mg PO QAM #90 tabs 01/19/24 03/18/24 Rx albuterol sulfate 1.25 mg/3 mL 1.25 mg (3 mL) inhalation QID PRN 01/20/24 03/18/24 Rx solution for nebulization shortness of breath or wheezing #90 mL metoprolol tartrate 25 mg tablet 25 mg PO BID #180 tabs 02/15/24 03/18/24 Rx furosemide 40 mg tablet (Lasix) 20 mg PO DAILY 03/01/24 03/18/24 History pantoprazole 40 mg tablet,delayed 40 mg PO DAILY 03/18/24 03/18/24 History release nystatin 100,000 unit/gram topical 1 applic EXT TID PRN rash in skin 03/22/24 Rx powder (Nystop) folds #30 grams nystatin 100,000 unit/mL oral 5 ml PO QID 5 days #100 mL 03/22/24 Rx suspension warfarin 4 mg tablet (Jantoven) 8 mg (2 x 4 mg) PO DAILY@1600 30 03/22/24 Rx days #60 tabs Hospital Stay Data Consultations 03/18/24 15:40 ED Decision to Admit Stat 03/19/24 06:40 Consult Gastroenterology Routine Consult Hematology Routine Procedures Performed Operation Date: 03/19/24 17:10 Actual Procedures p Esophagogastroduodenoscopy - Aly Guy, DO Diagnostic Imagining Performed 03/18/24 19:39 CT Abd and Pelvis [CT abd pelvis IV con only] Stat Pending Results Patient Have Any Pending Studies at Discharge: No Discharge Instructions Given to Patient (Per Discharging Provider) Ms. Roy, You were hospitalized after concerns for a GI bleed. Thankfully this has not continued. You underwent an EGD (upper scope) with Dr. Guy that did not show any cause for the bleeding but did show yeast. As we discussed, you need to change out the part for your CPAP machine. You will continue the nystatin swish and spit for 7 more days. I also sent nystatin cream you can continue to use on your rashes. I resumed your coumadin at 8mg per day. As we discussed, your levels were high when you came in, so we are going to hold off on giving you the 9mg dose. I have ordered labs to be repeated next week. The home health nurse should be able to draw these for you. Work with your PCP to adjust the dosing. STOP taking the baby aspirin. With the coumadin this is greatly increasing your risk for GI bleeds. We did stool studies and there was no infectious process or blood to case your loose stools. You can take over the counter Imodium to help with the loose stools. Follow the instructions on the package. You also were found to have low blood pressure - this was thought to be from the steroid use. We gave you IV steroids in the hospital and you will continue on oral steroids at discharge for a few days. I discussed this with Dr. Doe and he will instruct you on when to restart the dexamethasone. Continue your lasix in your normal fashion. Take your medications as instructed; do not skip a dose of your medicines. Make sure all of your doctors know every medicine you are taking (including over -the-counter medicines, vitamins, and supplements). Call your primary care provider before taking any new medicines (including over- the-counter medicines, vitamins, and supplements), because some of these may interact with your current medications, or may make your symptoms worse. Tell your primary care provider if you cannot afford your medications. Activity: You can do normal everyday activities as your body allows. Take rest breaks if you feel tired. Do not overexert. Stop activity if you have pain, shortness of breath or feel dizzy. Follow-up appointments: Make an appointment with your primary care physician within one week of discharge. A copy of this summary will be sent to them. Every time you see your primary care physician, or any other doctor, bring your medication list, and a list of questions. CONTACT YOUR PRIMARY CARE PROVIDER if you experience any of the following: Shortness of breath or difficulty breathing Fevers or chills Feeling tired with normal activity or experiencing dizziness or fainting Difficulty following your treatment plan, or difficulty taking medications CALL 911 OR GO TO THE EMERGENCY DEPARTMENT if you experience any of the following: Severe abdominal pain or nausea/vomiting Severe chest pain, or chest pain that radiates (moves) to your jaw or arm Sudden, severe shortness of breath or difficulty breathing Thank you for allowing us to participate in your care. Love Jesus PA-C ---- We talked a bit about you going into a alf. If you are not getting enough support you need at home to be able to sustain and get things done, I think you should consider assisted living. That way you would have some independence but there would always be people there to help. We also discussed getting a life/medical alert device, that way if you feel or could not get to your phone at least you had away to get to the phone. You should continue to work through the papers for medical assistance. The outpatient residential case manager will continue to follow with you. Coding Diagnoses Acute blood loss anemia D62 Diarrhea R19.7 Multiple myeloma not having achieved remission C90.00 Multiple myeloma remission status: not in remission Hypotension I95.9 Hypomagnesemia E83.42
--- NOTE | 2024-03-22 15:54 | Hospitalist Progress Note ---
Date of Service March 22, 2024 Assessment & Plan (1) Acute blood loss anemia: Plan: Melena described by patient for 1 week, worse in last 24 hours - noted prior hospitalization of lower/upper GI bleed in Aug 2022. PCP visit 03/01/2024 pt reporting diarrhea with + blood. Pantoprazole 40 mg IV BID Hgb remains stable - has not required tranfusion Suspected GI source, GI consulted - EGD 03/[address] Guy - findings suggestive of selin, culture pending. 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 diff PCR negative fecal occult blood negative frequency has decreased continue to use Imodium (3) Myeloma: Plan: Possible alternative cause of her anemia Ferritin, iron studies, B12, folate, retic count - WNL LDH 261 Consult hematology Patient has expressed interest in palliative/hospice care and not persuing aggressive measures and returning to the hospital. Patient no actively dying nor with acute unstable process. Will refer to outpatient palliative medicine. (4) Hypotension: Plan: Also with CHF - daily weights Metoprolol resumed Resumed lasix at 20mg daily - will monitor fr need for additonal diuertics Random cortisol 9 100 mg hydrocortisone ordered 50 mg tapered down to q12H since patient is staying will taper down further for am 03/23 - Discussed case with Dr. Katerin Allen - primary oncologist - recommend holding home weekly dexamethason () and continue hydrocortiosone taper. Will reevaluating resuming dexamethasone outpatient (5) Hypomagnesemia: Plan: Resolved hypokalemia also resolved Plan VTE Prophylaxis - SCDs, resumed coumadin 03/21 Disposition - continued inpatient stay - patient now requesting plcement, possible dc to [facility] tomorrow family updated at bedside CODE STATUS -- updated to DNR per pt request Admission and Anticipated Discharge Date Admission Date: March 18, 2024 Subjective Patient seen earlier this morning, states that she is feeling well. Discussed plans for discharge home with home health and she was agreeable. However during my interview she received a phone call from her daughter and then was concerned about needing halfway placement after daughter spoke with outpatient case therapist. I spoke with the inpatient case therapist who confirmed that the plan was still for home health and patient was accepted with home health and patient's daughter was going to stay with her for the next couple weeks. I I then called the patient's daughter who was told that placement to a halfway would be easier coming from the hospital and that is why she thought her mom was going to a halfway at this time I explained that she is strong enough to return home and that is why we have arranged for home health. At this time the plan was still discharged home with home health. later this afternoon is called to bedside by the nurse because family had questions. At this time Chantel stated that she does not think she wants to go home anymore and she wants to go to a halfway permanently. Overall states that she is kind of done with coming to the hospital and aggressive treatment. We discussed palliative/hospice care and patient seem to think that this would align more with her goals, however she is not sure if she wants to stop treating her myeloma as she is at risk for fractures. regardless will not pursue any additional aggressive measures during this hospital stay encouraged her to talk to her oncologist about prognosis and will follow-up with palliative care medicine outpatient Review of Systems Review of Systems: All systems reviewed & are unremarkable except as noted in Subjective Physical Exam Physical Exam: General: NAD, VS as above Resp: normal respiratory effort, lungs clear to auscultation CV: RRR, no murmur, Abd: normal bowel sounds, non tender, no hepatosplenomegaly Extremities: Moves all extremities, 1+ Edema LE Neuro: A&O x3, Results & Data Results & Data Vital Signs (Past 12 Hours) Vital Signs Temp Pulse Resp BP Pulse Ox O2 Del Method 03/22/24 11:25 36.8 C 72 18 114/64 93 Room Air 03/22/24 07:30 36.4 C L 75 18 142/69 H 94 CPAP PG Care Time/CCT Total # of Minutes Spent Total Time Spent with Patient: Total time spent is greater than 50% in coordination of care (as documented) at patient's floor/unit and/or counseling patient: Coding Level of Care Code 52480 SUB INP/OBS CARE 3/50MIN Diagnoses Acute blood loss anemia D62 Diarrhea R19.7 Multiple myeloma not having achieved remission C90.00 Multiple myeloma remission status: not in remission Hypotension I95.9 Hypomagnesemia E83.42 (3) Myeloma Multiple myeloma remission status: not in remission Qualified Code(s): C90.00 - Multiple myeloma not having achieved remission
[2024-03-22] MEDS: ACETAMINOPHEN 325 MG TAB PO PRN (20:33)
[2024-03-23 03:28] VITALS: O2SAT 93
[2024-03-23 06:36] LABS: Hematocrit (blood only) 26.3 % (37.0-47.0); Hemoglobin 8.6 g/dl (12.0-16.0)
[2024-03-23 06:57] LABS: Calcium 7.8 mg/dl (8.6-10.3); Creatinine Clr Calc Pharmacy 54.5 ml/min; Est GFR (African American) 73.4 ml/min; Est GFR (Non-African American) 63.4 ml/min; Potassium 3.5 mmol/L (3.5-5.1)
[2024-03-23 07:09] LABS: INR 1.5 (0.9-1.1); Prothrombin Time 15.4 Seconds (9.0-12.0)
[2024-03-23 12:24] VITALS: BP 138/72; RESP 17; TEMP 98.6
--- NOTE | 2024-03-23 12:28 | Discharge Summary ---
Discharge Summary Date of Service March 23, 2024 Notes For Next Care Provider patient admitted with GI bleeding, underwent EGD with no source of bleeding. Bleeding has stopped since being in the hospital. Patient has chronic loose stools, stool studies were negative. Encouraged to use Imodium. Adrenal insufficiency, will continue steroid taper. Home dexamethasone dose held. Stop baby aspirin as increased risk of bleeds with Coumadin, no history of AK or stroke. Patient originally was planning for home with home health but has opted to go to a custodial instead. With the potential for long-term residency. Patient is considering stopping treatment/aggressive measures and pursuing more of a palliative/hospice route. Outpatient palliative medicine referral placed recommend daily inr checks - while on fluconazole and with restarting Coumadin at 7mg daily . I called and left a message with the nursing pumping station supervisor at [facility] regarding her Coumadin dosing, they can Contact me with any questions Medication Changes From Visit stop baby aspirin. Coumadin decreased to 7 mg daily hydrocortisone taper nystatin swish and swallow fluconazole 200 mg x14 days. Principal Dx & Hospital Course #1 = Principal Diagnosis (1) Acute blood loss anemia: Melena described by patient for 1 week, worse in last 24 hours - noted prior hospitalization of lower/upper GI bleed in Aug 2022. PCP visit 03/01/2024 pt reporting diarrhea with + blood. Pantoprazole 40 mg IV BID - transition to p.o. at discharge Hgb remains stable - has not required tranfusion Suspected GI source, GI consulted - EGD 03/[address] Guy - findings suggestive of selin, culture confirms. 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 transition to 7 mg daily on 03/23 given fluconazole use Heme consulted, did not see patient during stay. Dispodischarge to [facility] custodial today. (2) Diarrhea: Acute on chronic CT A/P: diverticulosis without diverticulitis, no acute findings for cause of diarrhea Stool studies and c. diff PCR negative fecal occult blood negative frequency has decreased, continue to use Imodium (3) Myeloma: Possible alternative cause of her anemia Ferritin, iron studies, B12, folate, retic count - WNL LDH 261 Patient has expressed interest in palliative/hospice care and not persuing aggressive measures and returning to the hospital. Patient no actively dying nor with acute unstable process. Will refer to outpatient palliative medicine. (4) Hypotension: Also with CHF - daily weights Metoprolol resumed Resumed lasix at 20mg daily - will monitor fr need for additonal diuertics Random cortisol 9 received IV hydrocortisone while inpatient, will continue p.o. taper at discharge - Discussed case with Dr. Katerin Allen - primary oncologist - recommend holding home weekly dexamethasone () and continue hydrocortiosone taper. Will reevaluating resuming dexamethasone outpatient (5) Hypomagnesemia: Resolved hypokalemia also resolved Plan dispo: Discharged to [facility] today family updated extensively at bedside yesterday Discharge Exam General: NAD, VS as above Resp: normal respiratory effort, lungs clear to auscultation CV: RRR, no murmur, Abd: normal bowel sounds, non tender, no hepatosplenomegaly Extremities: Moves all extremities, mild Edema LE - improving Neuro: A&O x3, Updated Medication List Medication Instructions Recorded Confirmed Type Wheeled Walker #1 ea 05/19/22 03/01/24 Rx dexamethasone 4 mg tablet 20 mg PO WK 08/27/22 03/18/24 History diaper,brief,adult,disposable #120 ea 09/07/22 03/01/24 Rx (Briefs, Adult-Extra Large) incontinence pad, liner, disp #100 ea 09/07/22 03/01/24 Rx latex gloves (Latex Gloves, Large) #100 ea 09/07/22 03/01/24 Rx blood sugar diagnostic (OneTouch #100 ea 12/10/22 03/01/24 Rx Ultra Test strips) denosumab 120 mg/1.7 mL (70 mg/mL) 120 mg subcut .Q3 months 01/12/23 03/18/24 History subcutaneous solution (Xgeva) prochlorperazine maleate 10 mg 10 mg PO Q6 PRN Nausea 01/15/24 03/18/24 History tablet Oxygen Home [id number] 01/18/24 03/01/24 History acetaminophen 325 mg tablet 650 mg (2 x 325 mg) PO Q4H PRN 03/22/24 Rx fever or pain #30 tabs nystatin 100,000 unit/gram topical 1 applic EXT TID PRN rash in skin 03/22/24 Rx powder (Nystop) folds #30 grams nystatin 100,000 unit/mL oral 5 ml PO QID 5 days #100 mL 03/22/24 Rx suspension warfarin 4 mg tablet (Jantoven) 8 mg (2 x 4 mg) PO DAILY@1600 30 03/22/24 Rx days #60 tabs acyclovir 400 mg tablet 400 mg PO AMHS 30 days #30 tabs 03/23/24 Rx albuterol sulfate 1.25 mg/3 mL 1.25 mg (3 mL) inhalation QID PRN 03/23/24 Rx solution for nebulization shortness of breath or wheezing #90 mL albuterol sulfate 90 mcg/actuation 2 inh inhalation Q6 PRN Shortness 03/23/24 Rx aerosol inhaler Of Breath #1 g atorvastatin 10 mg tablet 10 mg PO QAM #90 tabs 03/23/24 Rx calcium carbonate 600 mg-vitamin 1 tab PO QAM 30 days #30 tabs 03/23/24 Rx D3 5 mcg (200 unit) tablet (Calcium 600 + D(3)) cholecalciferol (vitamin D3) 50 1,000 unit PO QAM #30 tabs 03/23/24 Rx mcg (2,000 unit) tablet cyanocobalamin (vitamin B-12) 100 100 mcg PO QAM #30 tabs 03/23/24 Rx mcg tablet fluconazole 200 mg tablet 200 mg PO DAILY #14 tabs 03/23/24 Rx furosemide 40 mg tablet (Lasix) 20 mg (1/2 x 40 mg) PO DAILY 30 03/23/24 Rx days #60 tabs hydrocortisone 10 mg tablet See Taper PO DAILY #30 tabs 03/23/24 Rx loperamide 2 mg capsule (Imodium 2 mg PO QID PRN Diarrhea 30 days 03/23/24 Rx A-D) #60 caps loratadine 10 mg tablet 10 mg PO QAM 30 days #30 tabs 03/23/24 Rx metoprolol tartrate 25 mg tablet 25 mg PO BID #180 tabs 03/23/24 Rx multivitamin 1 tab PO QAM #30 tabs 03/23/24 Rx nystatin 100,000 unit/mL oral 5 ml PO QID 10 days #200 mL 03/23/24 Rx suspension pantoprazole 40 mg tablet,delayed 40 mg PO DAILY 30 days #30 tabs 03/23/24 Rx release potassium chloride 10 mEq 10 meq PO AMHS 30 days #30 tabs 03/23/24 Rx tablet,extended release sodium di- and 1 tab PO AMHS 30 days #30 tabs 03/23/24 Rx monophosphate-potassium phos monobasic 250 mg tablet (Phospha Neutral) venlafaxine 150 mg 150 mg PO QPM #30 caps 03/23/24 Rx capsule,extended release 24 hr venlafaxine 75 mg capsule,extended 75 mg PO QAM #30 caps 03/23/24 Rx release 24 hr warfarin 3 mg tablet 3 mg PO DAILY #14 tabs 03/23/24 Rx warfarin 4 mg tablet 4 mg PO DAILY #14 tabs 03/23/24 Rx warfarin 4 mg tablet 8 mg (2 x 4 mg) PO DAILY #60 tabs 03/23/24 Rx Hospital Stay Data Consultations 03/18/24 15:40 ED Decision to Admit Stat 03/19/24 06:40 Consult Gastroenterology Routine Consult Hematology Routine Procedures Performed Operation Date: 03/19/24 17:10 Actual Procedures p Esophagogastroduodenoscopy - Aly Salazar. Case, DO Diagnostic Imagining Performed Abdomen/Pelvis CT 03/18/24 19:39 Exam(s): CT ABDOMEN + PELVIS With Contrast IV Amt: OPTIRAY 320 95ML EXAM: CT Abdomen and Pelvis With Intravenous Contrast CLINICAL HISTORY: Reason for exam: diarrhea, hematochezia, left sided abdominal pain. TECHNIQUE: Axial computed tomography images of the abdomen and pelvis with intravenous contrast. Automated exposure control was utilized for the study. A dose lowering technique was utilized adhering to the principles of ALARA. CONTRAST: Patient received OPTIRAY 320 95ML of IV contrast COMPARISON: No relevant prior studies available. FINDINGS: Lung bases: Unremarkable. No mass. No consolidation. Heart: Cardiomegaly. Pacemaker leads with. Prosthetic aortic valve. ABDOMEN: Liver: Unremarkable. No mass. Gallbladder and bile ducts: Cholecystectomy. No ductal dilation. Pancreas: Unremarkable. No mass. No ductal dilation. Spleen: Unremarkable. No splenomegaly. Adrenals: Unremarkable. No mass. Kidneys and ureters: LEFT renal cyst measures 3.5 cm. No hydronephrosis. Stomach and bowel: Diverticulosis, without acute diverticulitis. No small bowel obstruction. No free intraperitoneal air. No diarrheal disease on CT scan. PELVIS: Appendix: No findings to suggest acute appendicitis. Bladder: Unremarkable. Normal urinary bladder. Reproductive: Unremarkable as visualized. ABDOMEN and PELVIS: Intraperitoneal space: Unremarkable. No free air. No significant fluid collection. Bones/joints: Degenerative changes of the spine. No acute fracture. No dislocation. Soft tissues: Unremarkable. Vasculature: Atherosclerotic changes of the aorta. No abdominal aortic aneurysm. Lymph nodes: Unremarkable. No enlarged lymph nodes. IMPRESSION: 1. Cholecystectomy. 2. Diverticulosis, without acute diverticulitis. No small bowel obstruction. No free intraperitoneal air. No diarrheal disease on CT scan. Electronically signed by: Dominic Terrazas MD 03/18/24 21:05 PM Chest X-Ray 03/18/24 19:39 XR chest 1V portable HISTORY: shortness of breath COMPARISON: Chest 01/17/2024. FINDINGS: There is a left-sided dual-chamber pacemaker. The right Port-A-Cath terminates in the distal SVC. An aortic valve prosthesis is again noted. A few bibasilar linear densities favor subsegmental atelectasis or scarring. This is similar to the prior study. No new focal lung consolidations to suggest pneumonia. The heart remains mildly enlarged. No acute fractures. There is mild central pulmonary vascular congestion without overt edema. No pleural effusions. Old, healed right-sided rib fractures. IMPRESSION: Cardiomegaly with mild congestive change. ACT 112: Negative or not required by law. Electronically signed by: Merrick Latif M.D. 03/18/2024 7:59 PM Pending Results Patient Have Any Pending Studies at Discharge: No Discharge Instructions Given to Patient (Per Discharging Provider) For [facility]: On fluconazole for selin esophagitis. 200mg x14 days. Because of this lowering her Coumadin dose to 7mg per day. Recommend daily INRs. Coumadin was just resumed on 03/21 and she came in supra therapeutic. Ms. Roy, You were hospitalized after concerns for a GI bleed. Thankfully this has not continued. You underwent an EGD (upper scope) with Dr. Guy that did not show any cause for the bleeding but did show yeast. As we discussed, you need to change out the part for your CPAP machine. You will continue the nystatin swish and spit for 6 more days. I have also added PO medication for you to take to help treat this. I also sent nystatin cream you can continue to use on your rashes. I resumed your coumadin at 7mg per day. As we discussed, your levels were high when you came in, so we are going to hold off on giving you the 9mg dose. I have ordered labs to be repeated next week. Work with your PCP/[facility] to adjust the dosing. STOP taking the baby aspirin. With the coumadin this is greatly increasing your risk for GI bleeds. We did stool studies and there was no infectious process or blood to case your loose stools. You can take over the counter Imodium to help with the loose stools. Follow the instructions on the package. You also were found to have low blood pressure - this was thought to be from the steroid use. We gave you IV steroids in the hospital and you will continue on oral steroids at discharge for a few days. I discussed this with Dr. Allen and he will instruct you on when to restart the dexamethasone. Continue your lasix in your normal fashion. Take your medications as instructed; do not skip a dose of your medicines. Make sure all of your doctors know every medicine you are taking (including [id number] medicines, vitamins, and supplements). Call your primary care provider before taking any new medicines (including over- the-counter medicines, vitamins, and supplements), because some of these may interact with your current medications, or may make your symptoms worse. Tell your primary care provider if you cannot afford your medications. Activity: You can do normal everyday activities as your body allows. Take rest breaks if you feel tired. Do not overexert. Stop activity if you have pain, shortness of breath or feel dizzy. Follow-up appointments: Make an appointment with your primary care physician within one week of discharge. A copy of this summary will be sent to them. Every time you see your primary care physician, or any other doctor, bring your medication list, and a list of questions. CONTACT YOUR PRIMARY CARE PROVIDER if you experience any of the following: Shortness of breath or difficulty breathing Fevers or chills Feeling tired with normal activity or experiencing dizziness or fainting Difficulty following your treatment plan, or difficulty taking medications CALL 911 OR GO TO THE EMERGENCY DEPARTMENT if you experience any of the following: Severe abdominal pain or nausea/vomiting Severe chest pain, or chest pain that radiates (moves) to your jaw or arm Sudden, severe shortness of breath or difficulty breathing Thank you for allowing us to participate in your care. Love Jesus PA-C ---- We talked a bit about you going into a custodial. If you are not getting enough support you need at home to be able to sustain and get things done, I think you should consider assisted living. That way you would have some independence but there would always be people there to help. We also discussed getting a life/medical alert device, that way if you feel or could not get to your phone at least you had away to get to the phone. You should continue to work through the papers for medical assistance. The outpatient vocational case manager will continue to follow with you. Total Time Total Time Spent Total Time Spent (In Minutes): Time spend day of discharge 40 minutes including direct patient care, medication reconciliation, documentation, review of labs and images, and coordination of care. Coding Level of Care Code 03142 INP/OBS DISCH >30 MIN Diagnoses Acute blood loss anemia D62 Diarrhea R19.7 Multiple myeloma not having achieved remission C90.00 Multiple myeloma remission status: not in remission Hypotension I95.9 Hypomagnesemia E83.42
[2024-03-23 12:53] VITALS: PULSE 71
[2024-03-23] MEDS: HEPARIN 100 UNIT/ML 5ML FLUSH ONE (13:41)
== END 2024-03-23 15:08 | DRG 378 ==
LOC: ED 13:56 → EDINP 17:27 → SUATTDRO 17:27 → 4W 17:47

== ENCOUNTER 2024-07-01 14:29 | Observation (INO) ==
--- OUTSIDE RECORDS SUMMARY | 2024-07-01 14:36 | External Medical Summary | Summary of Care ---
Author Name Unknown Organization [facility] Address [address] [facility] [place] [address] Phone [phone] Care Team Providers Care Piping Blocker Name Role Phone Sachi Soni MD Primary Care Provider Reason for Visit * Reason Onset Date Comments Advice 06/23/2024 Encounter Details Date Type Department Care Team (Late st Contact Info) Description 06/23/2024 Telephone Hematology/Oncology [facility] [place] [address] [place] [address] Jorge Allen MD 200 [place] [address] Advice Allergies No known active allergiesdocumented as of this encounter (statuses as of 06/25/2024) Medications Medication Sig Dispensed Refills Start Date End Date Status WARFARIN SODIUM 10 MG PO TABS Take by mouth. Tuesday and Tuesday 10mg. Rest of the week 8mg. Active LORATADINE 10 MG PO TABS 1 tab in the am Active Multiple Vitamins-Minerals (MULTIVITAMIN ADULT) TABS Take by mouth. Active Cholecalciferol (VITAMIN D) 1000 units Tablet Take 1 Tablet by mouth in the morning. Active CYANOCOBALAMIN (VITAMIN B-12) 100 MCG Tablet Take 1 Tablet by mouth in the morning. Active vitamin c (ASCORBIC ACID) 500 MG Tablet Take 1 Tablet by mouth in the morning. Active acetaminophen (TYLENOL) 325 MG Tablet Take 3 Tabs by mouth 4 times a day. 30 Tab 12/25/2018 Active nystatin (NYSTOP) 089434 UNIT/GM powder Apply topically to affected area 2 times a day. Apply to abd. Skin folds 15 g 12/25/2018 Active atorvaSTATin (LIPITOR) 10 MG Tablet daily. 01/24/2019 Active Steel Rolling WalkerIndications: Multiple myeloma not having achieved remission (HCC),Gait disturbance Use as directed . Rollator walker 1 Each 05/13/2022 Active Prochlorperazine Maleate 10 MG Oral Tablet (Compazine)Indicat ions:Multiple myeloma not having achieved remission (HCC) Take by mouth 1 Tablet every 6 hours as needed for Nausea. 30 Tablet 1 08/06/2022 Active Pantoprazole Sodium 40 MG Oral Tablet Delayed Release (Protonix) Take 1 Tablet by mouth daily first thing in the morning. (Confirmed with PCP 10/12/22) 08/25/2022 Active Calcium 600-200 MG-UNIT Oral Tablet Take by mouth . Active Acyclovir 400 MG Oral Tablet (Zovirax)Indicatio ns:Multiple myeloma not having achieved remission (HCC) Take 1 Tablet (400 mg) by mouth in the morning and 1 Tablet (400 mg) before bedtime. 180 Tablet 3 09/29/2022 Active Xgeva 120 MG/1.7ML Subcutaneous Solution (Denosumab) 120 mg. 08/21/2020 Active Loperamide HCl 2 MG Oral Capsule (Imodium) Take 1 Capsule by mouth 4 times a day as needed for Diarrhea. Active Aspirin Low Dose 81 MG Oral [...] morning. In the am.. 90 Tablet 03 08/10/2023 Active Potassium Chloride ER 10 MEQ Oral Tablet Extended ReleaseIndications :Multiple myeloma not having achieved remission (HCC),Hypokalemia TAKE BY MOUTH 1 TABLET IN THE MORNING AND 1 TABLET IN THE EVENING BEFORE BEDTIME. 180 Tablet 10/21/2023 Active Albuterol Sulfate HFA 108 (90 Base) MCG/ACT Inhalation Aerosol Solution Inhale 2 Puffs by mouth every 6 hours as needed for Shortness of Breath. 10/03/2023 Active Ondansetron HCl 8 MG Oral [...] the morning and 1 Tablet before bedtime. 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 (Adult - for ages 18 years and over) Not on file 05/01/2024 Is your family able to pay t he heat, water, or electric bill? (Household - for ages 0-17 years) Not on file 05/01/2024 Does your family have access to good internet? (Household - for ages 0-17 years) Not on file 05/01/2024 Social Connections Answer Date Recorded How often do you feel lonely or isolated from those around you? (Adult - for ages 18 years and over) Not on file 05/01/2024 Sex and Gender Information Value Date Recorded Sex Assigned at Not on file Gender Identity Female 03/26/2024 1:45 PM EDT Sexual Orientation Not on file Job Start [...] Telephone Encounter - Love Quick RN - 06/25/2024 12:29 PM EDT Called patient, she confirmed that she was able to get her oxycodone. * Telephone Encounter - Jorge Allen MD - 06/23/2024 4:00 PM EDT She called answering service, she says that she has increasing pain and she does not have any pain medication left at this time. She is asking for renewal of oxycodone prescription. E-prescribed oxycodone. When I spoke with her, asked about hospice,she says that she is not sure, does not have the number to call. Advised to take oxycodone at this time. documented in this encounter Plan of Treatment Health Maintenance Due Date Last Done Comments DXA Scan 1940 Depression Screening 1952 Diabetic Eye Exam 1958 Diabetic Foot Exam 1958 DTaP,Tdap,and Td Vaccines (1 - Tdap) 1959 Zoster Vaccines (1 of 2) 1959 COVID-19 Vaccine (2 - Pfizer risk series) 06/29/2021 06/08/2021, 06/08/2021 Albumin/Creatinine Ratio 12/11/2021 12/11/2020 Influenza Vaccine (FLU shot) (#1) 2024 09/04/2016 HbA1c 12/08/2024 06/07/2024, 12/0 04/2023, 12/11/2020, Additional history exists GFR 06/07/2025 06/07/2024, 05/14, 05/24/2024, Additional history exists Pneumococcal Vaccine: 65+ Years Completed 03/10/2017, 02/18/2017, 01/12/2010 HPV (Gardasil) Vaccine Aged Out No lo nger eligible based on patient's age to complete this topic Hepatitis B Vaccine Aged Out No longe r eligible based on patient's age to complete this topic MENINGOCOCCAL (MENACTRA/MENVEO) Aged Out No longer eligible based on patient's age to complete this topic documented as of this encounter Medical Devices Implanted Type Area Jewel Bearing Grinder Device Identifier Shelf Expiration Date Model / Serial / Lot Screw Elbow Humeral Total - [id number] Implanted:Qty: 1 on 12/23/2018 by Gautam Jasso MD at OR [facility] [place] Right: Upper Arm [employer] 09/13/20278400-090 -00 / / [id number] Deisi Nexel Total Elbow Implanted:Qty: 1 on 12/23/2018 by Gautam Jasso MD at OR [facility] [place] Right: Upper Arm 04/13/20238400-095 -00 / / [id number] Cement Antibiotic Bone - [id number] Implanted:Qty: 1 on 12/23/2018 by Gautam Jasso MD at OR [facility] [place] Right: Upper Arm RENY : ORTHOPAEDICS 05/13/2020 6197-9-010 / / [id number] Cement Antibiotic Bone - [id number] Implanted:Qty: 1 on 12/23/2018 by Gautam Jasso MD at OR [facility] [place] Right: Upper Arm RENY : ORTHOPAEDICS 05/13/2020 6197-9-010 / / [id number] Stem Compr Srs Mod [id number] - [id number] Implanted:Qty: 1 on 12/23/2018 by Gautam Jasso MD at OR [facility] [place] Right: Upper Arm BIOMET : TRAUMA 01/28/2027 [id number] / / [id number] Deisi Nexel Total Elbow Ulnar Component Implanted:Qty: 1 on 12/23/2018 by Gautam Jasso MD at OR [facility] [place] Right: Upper Arm 07/14/2025 00-8400-025 -07 / / [id number] Comprehensive Srs/Nexel Distal Body Implanted:Qty: 1 on 12/23/2018 by Gautam Jasso MD at OR [facility] [place] Right: Upper Arm 03/03/2028 [id number] / / [id number] Valve Ricky 3 Ultra 26mm - [id number] Implanted:Qty: 1 on 05/27/2022 by Jesús Weber MD at [facility]ARDI[facility]S [facility] [employer] [id number] 03/17/2023 [id number] / / Port Implant W/8f Poly Cath - [id number] Implanted:Qty: 1 on 12/29/2022 by Sudhir Lovett DO at OR [facility] Right: Chest CR BARD : PERIPHERAL VASCULAR [id number] 02/12/2024 [id number] / / [id number] documented as of this encounter Visit Diagnoses Diagnosis Multiple myeloma not having achieved remission (HCC) Multiple myeloma, without mention of having achieved remission Cancer related pain Neoplasm related pain (acute) (chronic) documented in this encounter Advance Directives Documents on File Type Date Recorded Patient Fleet Service Manager Expl anation Power of Automation Control Technician 12/12/2018 8:46 AM Vipin viveros Power of Automation Control Technician Power of Automation Control Technician 12/12/2018 8:45 AM Zuleyma ferguson Power of Automation Control Technician * Full Code (Latest Code Status on File) Date Activated Date Inactivated Comments 05/27/2022 2:52 PM 05/28/2022 7:52 PM This order r eflects the patients wishes and were consensually agreed upon. * No Code Date Activated Date Inactivated Comments 12/21/2018 2:01 PM 12/25/2018 6:34 PM This order re flects the patients wishes and were consensually agreed upon. She requests to be a no code with the exception of during the surgery she is agreeable to a full code. Question Answer Comments Discussion of Advance Directives occurred with: Patient/Family Does the patient have a Living Will? Yes, not cu rrently available Does the patient have Health Care Power of Automation Control Technician? Yes, not currently available * Full Code Date Activated Date Inactivated Comments 11/21/2018 8:53 AM 11/21/2018 2:27 PM This order ref lects the patients wishes and were consensually agreed upon. Care Teams Piping Blocker Relationship Specialty Start Date End Date Sachi Soni MD [address] [facility] [place] [address] PCP - General Family Medicine 05/08/24 documented as of this encounter
--- OUTSIDE RECORDS SUMMARY | 2024-07-01 14:37 | External Medical Summary | Summary of Care ---
Author Name Unknown Organization [facility] Address [address] [facility] [place] [address] Phone [phone] Care Team Providers Care Wind Up Operator Name Role Phone Sachi Soni MD Primary Care Provider Reason for Visit * Reason Onset Date Comments Advice 06/23/2024 Encounter Details Date Type Department Care Team (Late st Contact Info) Description 06/23/2024 Telephone Hematology/Oncology [facility] [place] [address] [facility] [place] [address] Jorge Allen MD 200 [place] [address] Advice Allergies No known active allergiesdocumented as of this encounter (statuses as of 06/23/2024) Medications Medication Sig Dispensed Refills Start Date [...] day. 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 Aortic valve stenosis 2021 documented as of this encounter (statuses as of 06/23/2024) Social History Tobacco Use Types Packs/Day Years [...] encounter Medical Devices Implanted Type Area Manager Contract Device Identifier Shelf Expiration Date Model / Serial / Lot Screw Elbow Humeral Total - [id number] Implanted:Qty: 1 on 12/23/2018 by Gautam Jasso MD at [place] [facility] [place] Right: Upper Arm [employer] 09/13/2027-8400-090 -00 / / [id number] Deisi Nexel Total Elbow Implanted:Qty: 1 on 12/23/2018 by Gautam Jasso MD at [place] [facility] [place] Right: Upper Arm 04/13/2023-8400-095 -00 / / [id number] Cement Antibiotic Bone - [id number] Implanted:Qty: 1 on 12/23/2018 by Gautam Jasso MD at OR [facility] [place] Right: Upper Arm RENY : ORTHOPAEDICS 05/13/2020 6197-9-010 / / [id number] Cement Antibiotic Bone - [id number] Implanted:Qty: 1 on 12/23/2018 by Gautam Jasso MD at OR [facility] Right: Upper Arm RENY : ORTHOPAEDICS 05/13/2020 6197-9-010 / / [id number] Stem Compr Srs Mod [id number] - [id number] Implanted:Qty: 1 on 12/23/2018 by Gautam Jasso MD at OR [facility] Right: Upper Arm BIOMET : TRAUMA 01/28/2027 [id number] / / [id number] Deisi Nexel Total Elbow Ulnar Component Implanted:Qty: 1 on 12/23/2018 by Gautam Jasso MD at [place] [facility] Right: Upper Arm 07/14/2025 00-8400-025 -07 / / [id number] Comprehensive Srs/Nexel Distal Body Implanted:Qty: 1 on 12/23/2018 by Gautam Jasso MD at OR [facility] Right: Upper Arm 03/03/2028 [id number] / / [id number] Valve Ricky 3 Ultra 26mm - [id number] Implanted:Qty: 1 on 05/27/2022 by Jesús Weber MD at [facility] [employer] [id number] 03/17/2023 [id number] / / Port Implant W/8f Poly Cath - [id number] Implanted:Qty: 1 on 12/29/2022 by Sudhir Lovett DO at OR [facility] Right: Chest CR BARD : PERIPHERAL VASCULAR [id number] 02/12/2024 [id number] / / [id number] documented as of this encounter Visit Diagnoses Diagnosis Multiple myeloma not having achieved remission (HCC) Multiple myeloma, without mention of having achieved remission Cancer related pain Neoplasm related pain (acute) (chronic) documented in this encounter Advance Directives Documents on File Type Date Recorded Patient Telephone Clerk Telegraph Office Expl anation Power of Statement Request Clerk 12/12/2018 8:46 AM Vipin viveros Power of Statement Request Clerk Power of Statement Request Clerk 12/12/2018 8:45 AM Zuleyma ferguson Power of Statement Request Clerk * Full Code (Latest Code Status on [...] the patient have Health Care Power of Statement Request Clerk? Yes, not currently available * Full Code Date Activated Date Inactivated Comments 11/21/2018 8:53 AM 11/21/2018 2:27 PM This order ref lects the patients wishes and were consensually agreed upon. Care Teams Wind Up Operator Relationship Specialty Start Date End Date Sachi Soni MD [address] [facility] [place] [address] PCP - General Family Medicine 05/08/24 documented as of this encounter
--- OUTSIDE RECORDS SUMMARY | 2024-07-01 14:37 | External Medical Summary | Summary of Care ---
Author Name Unknown Organization [facility] Address [address] [facility] [address] Phone [phone] Care Team Providers Care Ruby On Rails Consultant Name Role Phone Sachi Soni MD Primary Care Provider Reason for Visit * Reason Onset Date Comments Information 06/19/2024 Encounter Details Date Type Department Care Team (Late st Contact Info) Description 06/19/2024 Telephone Hematology/Oncology Treatment, [address] [address] Jorge Allen MD [address] [place] [address] Information Allergies No known active allergiesdocumented as of this encounter (statuses as of 06/19/2024) Medications Medication Sig Dispensed Refills Start Date [...] day. 30 Tab 12/25/2018 Active nystatin (NYSTOP) 315780 UNIT/GM powder Apply topically to affected area 2 times a day. Apply to abd. Skin folds 15 g 12/25/2018 Active atorvaSTATin (LIPITOR) 10 MG Tablet daily. 01/24/2019 Active Steel Rolling WalkerIndications:M ultiple myeloma [...] . 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 Left message for patient to return call. documented in this encounter Plan of Treatment [...] shot) (#1) 2024 09/04/2016 HbA1c 12/08/2024 06/07/2024, 12/04/2023, 12/11/2020, Additional history exists GFR 06/07/2025 06/07/2024, [...] this encounter Medical Devices Implanted Type Area Commercial Print Salesman Device Identifier Shelf Expiration Date Model / Serial / Lot Screw Elbow Humeral Total - [id number] Implanted:Qty: 1 on 12/23/2018 by Gautam Jasso MD at OR [facility] [place] Right: Upper Arm [employer] 09/13/2027 / / [id number] Deisi Nexel Total Elbow Implanted:Qty: 1 on 12/23/2018 by Gautam Jasso MD at OR [facility] [place] Right: Upper Arm 04/13/2023 / / [id number] Cement Antibiotic Bone - [id number] Implanted:Qty: 1 on 12/23/2018 by Gautam Jasso MD at OR [facility] [place] Right: Upper Arm RENY : ORTHOPAEDICS 05/13/2020 6197-9-010 / / [id number] Cement Antibiotic Bone - [id number] Implanted:Qty: 1 on 12/23/2018 by Gautam Jasso MD at OR [facility] [place] Right: Upper Arm RENY : ORTHOPAEDICS 05/13/2020 6197-9-010 / / [id number] Stem Compr Srs Mod 3l035hr - [id number] Implanted:Qty: 1 on 12/23/2018 by Gautam Jasso MD at OR [facility] [place] Right: Upper Arm BIOMET : TRAUMA 01/28/2027 [id number] / / [id number] Deisi Nexel Total Elbow Ulnar Component Implanted:Qty: 1 on 12/23/2018 by Gautam Jasso MD at OR [facility] [place] Right: Upper Arm 07/14/202500-025 - / / [id number] Comprehensive Srs/Nexel Distal Body Implanted:Qty: 1 on 12/23/2018 by Gautam Jasso MD at OR [facility] [place] Right: Upper Arm 03/03/2028 [id number] / / [id number] Valve Ricky 3 Ultra 26mm - [id number] Implanted:Qty: 1 on 05/27/2022 by Jesús Weber MD at [facility] [place] [employer] [id number] 03/17/2023 [id number] / / Port Implant W/8f Poly Cath - [id number] Implanted:Qty: 1 on 12/29/2022 by Sudhir Lovett DO at OR [facility] Right: Chest CR BARD : PERIPHERAL VASCULAR [id number] 02/12/2024 [id number] / / [id number] documented as of this encounter Advance Directives Documents on File Type Date Recorded Patient Furnace Setter Expl anation Power of Executive Director Global Brand Marketing 12/12/2018 8:46 AM Healt hcare Power of Executive Director Global Brand Marketing Power of Executive Director Global Brand Marketing 12/12/2018 8:45 AM Zuleyma ferguson Power of Executive Director Global Brand Marketing * Full Code (Latest Code Status on [...] the patient have Health Care Power of Executive Director Global Brand Marketing? Yes, not currently available * Full Code Date Activated Date Inactivated Comments 11/21/2018 8:53 AM 11/21/2018 2:27 PM This order ref lects the patients wishes and were consensually agreed upon. Care Teams Ruby On Rails Consultant Relationship Specialty Start Date End Date Sachi Soni MD [address] [place] [address] PCP - General Family Medicine 05/08/24 documented as of this encounter
--- OUTSIDE RECORDS SUMMARY | 2024-07-01 14:37 | External Medical Summary | Summary of Care ---
Author Name Unknown Organization [facility] Address [address] [facility] [place] [address] Phone [phone] Care Team Providers Care Shaper Machine Hand Name Role Phone Sachi Soni MD Primary Care Provider Reason for Visit * Reason Comments Chemotherapy Cytoxan, xgeva * Episode Based Medications (Routine) - Authorized Specialty Diagnoses / Procedures Referred By Contac t Referred To Contact Diagnoses Multiple myeloma not having achieved remission (HCC) Procedures ID DARATUMUMAB, HYALURONIDASE ID CYCLOPHOSPHAMIDE 100 MG INJ ID INJ, CYCLOPHOSPHAMIDE, NOS Jorge Allen MD [address] [place] [address] Anc Hem/Onc [facility] DEPT CLOSED - 09/27/23 [address] [place] [address] Referral ID Status Reason Start Date Expiration Date V isits Requested Visits Authorized [id number] Authorized 07/23/2022 11/13/2099 999 99 Encounter Details Date Type Department Care Team (Latest Contact Info) Description 05/18/2024 12:00 PM EDT Hem/Onc Treatment Hematology/Oncolog y Treatment, [place] [address] [place] [address] Ritu, Chair 2 Hem Onc Scen[address] [place] [address] Multiple myeloma not having achieved remission (HCC)*; Encounter for antineoplastic chemotherapy Allergies No known active allergiesdocumented as of this encounter (statuses as of 06/20/2024) Medications Medication Sig Dispensed Refills Start Date [...] day. 30 Tab 12/25/2018 Active nystatin (NYSTOP) 188393 UNIT/GM powder Apply topically to affected area [...] for Nausea. 20 Tablet 1 01/27/2024 Active Additional Information Patient not taking.Reported on 04/06/2024 Lidocaine-Prilocai ne 2.5-2.5 % External Cream (Emla)Indications: [...] as needed for Pain, Breakthrough. 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 Aortic valve stenosis 2021 documented as of this encounter (statuses as of 06/20/2024) Social History Tobacco Use Types Packs/Day Years Used Date Smoking Tobacco: Never Smokeless Tobacco: Never Alcohol Use Standard Drinks/Week Comments No 0 (1 standard drink = 0.6 oz pur e alcohol) occassional Utilities Answer Date Recorded Do you have [...] Sign Reading Time Taken Comments Blood Pressure 100/66 05/18/2024 12:20 PM EDT Pulse 89 05/18/2024 12:20 PM EDT Temperature 36.7 C (98.1 F) 05/18/2024 1 2:20 PM EDT Respiratory Rate 18 05/18/2024 12:2 0 PM EDT Oxygen Saturation 94% 05/18/2024 12: 20 PM EDT Inhaled Oxygen Concentration - - Weight 106.7 kg (235 lb 3.2 oz) 024 12:20 PM EDT Height - - Body Mass Index 47.42 12/28/2023 10:14 AM EST documented in this [...] * Sachi De La O, RN - 05/18/2024 3:17 PM EDT Chair 4 Pt here for Cytoxan & xgeva. No complaints. Chemotherapy/Immunotherapy agents: Cytoxan Consent for chemotherapy drug treatment complete, dated, and signed? yes, date - 11/11/22 Treatment lab parameters met? Yes Has treatment weight changed > than 10%? No Treatment preauthorized? Yes VITALS Filed Vitals: 05/18/24 1220 BP: 100/66 Pulse: 89 Resp: 18 Temp: 36.7 C (98.1 F) TempSrc: Tympanic SpO2: 94% Weight: 106.7 kg (235 lb 3.2 oz) Urine protein: N/A Patient education completed [...] side effects during treatment. PRE-TREATMENT ASSESSMENT: NEURO: fatigue:often tired CV/RESP: denies symptoms GI/: denies symptoms OTHER: denies any additional symptoms PAIN: 0 Safety and Risk for Injury Patient will remain free from injury. Ensure appropriate safety devices are available. Provide and maintain safe environment. Goals: Patient will remain free from injury. Possible barriers to meeting goals: ambulation with IV pole, poor mobility Stability of the patient: Moderately stable - low risk of patient condition declining or worsening Summary regarding today's goals: Met: patient without injury during treatment today. Pt tolerated infusion well. Pt also received xgeva injection. Reports taking Ca/Vit D and denies any dental problems. No complaints. Discharged in stable condition. documented [...] this encounter Medical Devices Implanted Type Area State Auditor Device Identifier Shelf Expiration Date Model / Serial / Lot Screw Elbow Humeral Total - [id number] Implanted:Qty: 1 on 12/23/2018 by Gautam Jasso MD at OR [facility] [place] Right: Upper Arm [employer] 09/13/202700-090 -00 / / [id number] Deisi Nexel Total Elbow Implanted:Qty: 1 on 12/23/2018 by Gautam Jasso MD at OR [facility] Right: Upper Arm 04/13/202300-095 -00 / / [id number] Cement Antibiotic Bone - [id number] Implanted:Qty: 1 on 12/23/2018 by Gautam Jasso MD at OR [facility] [place] Right: Upper Arm RENY : ORTHOPAEDICS 05/13/2020 6197-9-010 / / [id number] Cement Antibiotic Bone - [id number] Implanted:Qty: 1 on 12/23/2018 by Gautam Jasso MD at OR [facility] [place] Right: Upper Arm RENY : ORTHOPAEDICS 05/13/2020 6197-9-010 / / [id number] Stem Compr Srs Mod [id number] - [id number] Implanted:Qty: 1 on 12/23/2018 by Gautam Jasso MD at OR [facility] [place] Right: Upper Arm BIOMET : TRAUMA 01/28/2027 [id number] / / [id number] Deisi Nexel Total Elbow Ulnar Component Implanted:Qty: 1 on 12/23/2018 by Gautam Jasso MD at OR [facility] [place] Right: Upper Arm 07/14/2025 00-8400-025 -07 / / [id number] Comprehensive Srs/Nexel Distal Body Implanted:Qty: 1 on 12/23/2018 by Gautam Jasso MD at OR [facility] [place] Right: Upper Arm 03/03/2028 [id number] / / [id number] Valve Ricky 3 Ultra 26mm - [id number] Implanted:Qty: 1 on 05/27/2022 by Jesús Weber MD at CARDIAC LABS [facility] [employer] [id number] 03/17/2023 [id number] / / Port Implant W/8f Poly Cath - [id number] Implanted:Qty: 1 on 12/29/2022 by Sudhir Lovett DO at OR [facility] Right: Chest CR BARD : PERIPHERAL VASCULAR [id number] 02/12/2024 [id number] / / [id number] documented as of this encounter Visit Diagnoses [...] BSA from Recorded weight), IV Piggyback, at 516.2 mL/hr Administer over 30 Minutes, Cyclophosphamide doses over 1g should be in 500 mL. May extend infusion to 1 hour if not tolerated., ONCE, 1 dose, On Tue05/18/24 at 1315 Start Infusion 05/18/2024 1:16 PM EDT 620 mg 516.2 mL/hr Denosumab (Xgeva) subcut inj 120 mg 120 mg, Subcutaneous, ONCE, On Tue05/18/24 at 1345, For 1 dose Given 05/18/2024 1:52 PM EDT 120 mg Arm Left Upper hEParin 100 UNIT/ML Lock Flush inj 500 Units 500 Units (5 mL), IV Lock, PRN Other, IV Flush, Starting on Tue05/18/24 at 1241, Until Tue05/18/24 at 1924, For 24 hours, Do not flush if lock, PICC, or central line not in place; IV infusing or unable to flush. Given 05/18/2024 1:54 PM EDT 500 Units NSS infusion Intravenous, at 50 mL/hr Administer over 10 Hours, ONCE, 1 dose, On Tue05/18/24 at 1315 Start Infusion 05/18/2024 12:53 PM EDT 500 mL 50 mL/hr ondansetron (Zofran) tab 8 mg 8 mg, Oral, ONCE, On Tue05/18/24 at 1315, For 1 dose Given 05/18/2024 12:57 PM EDT 8 mg sodium chloride 0.9 % flush central line 10 mL 10 mL, IV Push, PRN Other, IV Flush, Starting on Tue05/18/24 at 1241, Until Tue05/18/24 at 1924, For 24 hours, Do not flush if lock, PICC, or central line not in place; IV infusing or unable to flush. Given 05/18/2024 1:54 PM EDT 10 mL documented in this encounter Advance Directives Documents on File Type Date Recorded Patient Wick And Base Assembler Expl anation Power of Contracts Officer 12/12/2018 8:46 AM Vipin viveros Power of Contracts Officer Power of Contracts Officer 12/12/2018 8:45 AM Zuleyma ferguson Power of Contracts Officer * Full Code (Latest Code Status on [...] the patient have Health Care Power of Contracts Officer? Yes, not currently available * Full Code Date Activated Date Inactivated Comments 11/21/2018 8:53 AM 11/21/2018 2:27 PM This order ref lects the patients wishes and were consensually agreed upon. Care Teams Shaper Machine Hand Relationship Specialty Start Date End Date Sachi Soni MD [address] [place] [facility] [place] [address] PCP - General Family Medicine 05/08/24 documented as of this encounter
--- OUTSIDE RECORDS SUMMARY | 2024-07-01 14:37 | External Medical Summary | Summary of Care ---
Author Name Unknown Organization [facility] Address [address] [facility] [place] [address] Phone [phone] Care Team Providers Care Health Science Specialist Name Role Phone Sachi Soni MD Primary Care Provider [phone] Reason for Visit * Reason Comments Chemotherapy Cytoxan/Darzalex Fas pro * Episode Based Medications (Routine) - Authorized Specialty Diagnoses / Procedures Referred By Contac t Referred To Contact Diagnoses Multiple myeloma not having achieved remission (HCC) Procedures MO DARATUMUMAB, HYALURONIDASE MO CYCLOPHOSPHAMIDE 100 MG INJ MO INJ, CYCLOPHOSPHAMIDE, NOS Jorge Allen MD [address] [place] [address] Anc Hem/Onc [facility] DEPT CLOSED - 09/27/23 [address] [place] [address] Referral ID Status Reason Start Date Expiration Date V isits Requested Visits Authorized [id number] Authorized 07/23/2022 11/13/2099 999 99 Encounter Details Date Type Department Care Team (Latest Contact Info) Description 05/25/2024 12:00 PM EDT Hem/Onc Treatment Hematology/Oncolog y Treatment, [place] [address] [place] [address] Ritu, Chair 3 Hem Onc Scenery [address] [place] [address] Multiple myeloma not having achieved remission (HCC)*; [...] day. 30 Tab 12/25/2018 Active nystatin (NYSTOP) 700575 UNIT/GM powder Apply topically to affected area [...] Sign Reading Time Taken Comments Blood Pressure 121/72 05/25/2024 12:03 PM EDT Pulse 87 05/25/2024 12:03 PM EDT Temperature 36.2 C (97.2 F) 05/25/2024 12:03 PM E DT Respiratory Rate 16 05/25/2024 12:03 PM EDT Oxygen Saturation 97% 05/25/2024 12:03 PM EDT Inhaled Oxygen Concentration - - Weight 105.2 kg (232 lb) 05/25/2024 12:03 PM EDT Height - - Body Mass Index 46.86 05/23/2024 1:16 PM EDT documented in this encounter Functional Status Functional [...] of this encounter Nursing Notes * Sandi Avila RN - 05/25/2024 2:24 PM EDT Goals: Patient will remain free from injury. Possible barriers to meeting goals: ambulating with IV pole, pain, age, use of wheelchair to ambulate long distances Stability of the patient: Moderately stable - low risk of patient condition declining or worsening Summary regarding today's goals: Met: patient remained free of harm today Patient tolerated treatment well without any acute issues or problems. Patient left facility in stable condition and denied any further needs. * Sandi Avila RN - 05/25/2024 2:06 PM EDT RN spoke with JORGE Amezquita regarding patient's ongoing pain. Initially patient told RN it was her L arm that was hurting and only sometimes the R arm. Later on, patient corrected herself and said "I did say the L arm hurt, but it is mainly in the shoulder. It is the R arm that is causing most of her pain." She says the Oxy seems to take away her L shoulder pain but NOT her R elbow and wrist pain. When Rn asked if she has taken any Tylenol with or in between doses of her Oxycodone, patient states she does take 500 mg of Tylenol sometimes WITH her Oxycodone when her pain seems to be worse. She says this usually does not help her pain at all taking the additional Tylenol. RN educated patient to try taking 1000 mg Tylenol when her pain is bad with her Oxy or in between doses of Oxycodone. RN educated patient about the daily/24 hour Tylenol limit as well. Patient communicated understanding regarding this teaching and will try taking an extra Tylenol to see if this help any with her pain. RN told patient we will see if this helps and if not, we will speak with Dr. Allen next week when she returns to see if there is something different we could try. RN educated patient to try writing down/keeping track of when and how many Oxycodone/Tylenol pills she is taking and the times she took them. Patient says she will try to do this too to keep track. Since patient is still having L shoulder pain, started about last week, X-Ray ordered for L arm now. Patient agreeable to go have X-Ray done for L arm now. * Sandi Avila RN - 05/25/2024 12:04 PM EDT Chair 8. Port accessed. Chemotherapy/Immunotherapy agents: CYTOXAN and DARZALEX Consent for chemotherapy drug treatment complete, dated, and signed? yes, date - 11/11/2022 Treatment lab parameters met? Yes Has treatment weight changed > than 10%? No Treatment preauthorized? Yes VITALS Filed Vitals: 05/25/24 1203 BP: 121/72 Pulse: 87 Resp: 16 Temp: 36.2 C (97.2 F) TempSrc: Tympanic SpO2: 97% Weight: 105.2 kg (232 lb) Urine protein: N/A Patient education completed for treatment? Yes Blood transfusion consent signed and complete? NA Return appointment scheduled? Yes Patient had provider visit today? Yes - Ok to release order and treat per provider Functional Status: Functional status at today's visit: [...] side effects during treatment. PRE-TREATMENT ASSESSMENT: NEURO: fatigue:most common complaint from patient, still able to do what she needs but does feel like she sleeps more at times now. CV/RESP: denies symptoms GI/: denies symptoms OTHER: denies any additional symptoms PAIN: 5-6 pain location : R elbow, L shoulder, also L elbow at times from past surgery , takes Oxy PRN 5 mg but sometimes needs more than 5 mg Oxycodone -- will speak with JORGE Amezquita regarding adding in any additional pain meds for breakthrough pain, etc. Safety and Risk for Injury Patient will [...] this encounter Medical Devices Implanted Type Area Naval Designer Device Identifier Shelf Expiration Date Model / Serial / Lot Screw Elbow Humeral Total - [id number] Implanted:Qty: 1 on 12/23/2018 by Gautam Jasso [place] [facility]: Upper Arm [employer] 09/13/202700-090 - / / [id number] Deisi Nexel Total Elbow Implanted:Qty: 1 on 12/23/2018 by Gautam Jasso MD [place] [facility]: Upper Arm 04/13/2023-5 - / / [id number] Cement Antibiotic Bone - [id number] Implanted:Qty: 1 on 12/23/2018 by Gautam Jasso MD [place] [facility]: Upper Arm RENY : ORTHOPAEDICS 05/13/2020 6197-9-010 / / [id number] Cement Antibiotic Bone - [id number] Implanted:Qty: 1 on 12/23/2018 by Gautam Jasso MD [place] [facility]: Upper Arm RENY : ORTHOPAEDICS 05/13/2020 6197-9-010 / / [id number] Stem Compr Srs Mod [id number] - [id number] Implanted:Qty: 1 on 12/23/2018 by Gautam Jasso MD [place] [facility]: Upper Arm BIOMET : TRAUMA 01/28/2027 [id number] / / [id number] Deisi Nexel Total Elbow Ulnar Component Implanted:Qty: 1 on 12/23/2018 by Gautam Jasso MD [place] [facility]: Upper Arm 07/14/2025 00-8400-025 -07 / / [id number] Comprehensive Srs/Nexel Distal Body Implanted:Qty: 1 on 12/23/2018 by Gautam Jasso MD [place] [facility] Right: Upper Arm 03/03/2028 [id number] / / [id number] Valve Ricky 3 Ultra 26mm - [id number] Implanted:Qty: 1 on 05/27/2022 by Jesús Weber MD at [facility] [employer] [id number] 03/17/2023 [id number] / / Port Implant W/8f Poly Cath - [id number] Implanted:Qty: 1 on 12/29/2022 by Sudhir Lovett DO at OR [facility] Right: Chest CR BARD : PERIPHERAL VASCULAR [id number] 02/12/2024 [id number] / / [id number] documented as of this encounter Visit Diagnoses Diagnosis Multiple myeloma not having achieved remission (HCC)- Primary Multiple myeloma, without mention of having achieved remission Encounter for antineoplastic chemotherapy documented in this encounter Administered Medications Inactive Administered Medications - up to 3 most recent administrations Medication Order MAR Action Action Date Dose Rate Site Acetaminophen (Tylenol) tab 650 mg 650 mg, Oral, ONCE, On Tue05/25/24 at 1245, For 1 dose, Maximum of 4 grams (4000 mg) per day. Given 05/25/2024 12:32 PM EDT 650 mg cycloPHOSphamide (Cytoxan) 620 mg in NSS 250 mL infusion 620 mg (rounded from 621 mg = 300 mg/m2 2.07 m2 Treatment Plan BSA from Recorded weight), IV Piggyback, at 516.2 mL/hr Administer over 30 Minutes, Cyclophosphamide doses over 1g should be in 500 mL. May extend infusion to 1 hour if not tolerated., ONCE, 1 dose, On Tue05/25/24 at 1300 Start Infusion 05/25/2024 1:05 PM EDT 620 mg 516.2 mL/hr Daratumumab-hyaluronida se-fij (Darzalex Faspro) 1800 mg-02199 units/ 15 ml subcut inj 15 mL, Subcutaneous, ONCE, On Tue05/25/24 at 1400, For 1 dose, Inject subcutanteously into abdomen over 3 to 5 minutes Given 05/25/2024 1:01 PM EDT 15 mL Abdomen Right Lower diphenhydrAMINE (Benadryl) cap 50 mg 50 mg, Oral, ONCE, On Tue05/25/24 at 1245, For 1 dose Given 05/25/2024 12:32 PM EDT 50 mg hEParin 100 UNIT/ML Lock Flush inj 500 Units 500 Units (5 mL), IV Lock, PRN Other, IV Flush, Starting on Tue05/25/24 at 1219, Until Tue05/25/24 at 1836, For 24 hours, Do not flush if lock, PICC, or central line not in place; IV infusing or unable to flush. Given 05/25/2024 1:50 PM EDT 500 Units NSS infusion FOR HYDRATION Intravenous, at 50 mL/hr Administer over 10 Hours, ONCE, 1 dose, On Tue05/25/24 at 1300 Start Infusion 05/25/2024 12:34 PM EDT 500 mL 50 mL/hr ondansetron (Zofran) tab 8 mg 8 mg, Oral, ONCE, On Tue05/25/24 at 1245, For 1 dose Given 05/25/2024 12:32 PM EDT 8 mg sodium chloride 0.9 % flush central line 10 mL 10 mL, IV Push, PRN Other, IV Flush, Starting on Tue05/25/24 at 1219, Until Tue05/25/24 at 1836, For 24 hours, Do not flush if lock, PICC, or central line not in place; IV infusing or unable to flush. Given 05/25/2024 1:50 PM EDT 10 mL documented in this encounter Advance Directives Documents on File Type Date Recorded Patient Front End Specialist Expl anation Power of Care Nurse Rn 12/12/2018 8:46 AM Vipin viveros Power of Care Nurse Rn Power of Care Nurse Rn 12/12/2018 8:45 AM Zuleyma ferguson Power of Care Nurse Rn * Full Code (Latest Code Status on [...] the patient have Health Care Power of Care Nurse Rn? Yes, not currently available * Full Code Date Activated Date Inactivated Comments 11/21/2018 8:53 AM 11/21/2018 2:27 PM This order ref lects the patients wishes and were consensually agreed upon. Care Teams Health Science Specialist Relationship Specialty Start Date End Date Sachi Soni MD [address] [place] [address] PCP - General Family Medicine 05/08/24 documented as of this encounter
--- OUTSIDE RECORDS SUMMARY | 2024-07-01 14:37 | External Medical Summary | Summary of Care ---
Author Name Unknown Organization [facility] Address [address] [facility] [place] [address] Phone [phone] Care Team Providers Care Silversmith Apprentice Name Role Phone Sachi Soni MD Primary Care Provider Reason for Visit * Reason Comments Follow Up Encounter Details Date Type Department Care Team (Latest Contact Info) Description 06/12/2024 2:15 PM EDT Office Visit Hematology/Oncolog y [facility] [place] [address] [place] [address] Jorge Allen MD [address] [place] [address] Hypogammaglobulinemia (HCC)*; Multiple myeloma not having achieved remission (HCC); Cancer related pain Allergies No known active allergiesdocumented as of this encounter (statuses as of 06/12/2024) Medications Medication Sig Dispensed Refills Start Date [...] day. 30 Tab 12/25/2018 Active nystatin (NYSTOP) 588866 UNIT/GM powder Apply topically to affected area [...] for Pain, Breakthrough. 60 Tablet 06/12/2024 Active oxyCODONE HCl 5 MG Oral Tablet (Oxy IR)Indications:Mul tiple myeloma not having achieved remission (HCC),Cancer related pain Take 1-2 Tablets by mouth every 6 hours as needed for Pain, Breakthrough. 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 Aortic valve stenosis 2021 documented as of this encounter (statuses as of 06/12/2024) Social History Tobacco Use Types Packs/Day Years [...] Sign Reading Time Taken Comments Blood Pressure 107/66 06/12/2024 2:22 PM EDT Pulse 75 06/12/2024 2:22 PM EDT Temperature 36.3 C (97.3 F) 06/12/2024 2:22 PM ED T Respiratory Rate - - Oxygen Saturation 95% 06/12/2024 2:22 PM EDT Inhaled Oxygen Concentration - - Weight 107.6 kg (237 lb 4.8 oz) 06/12/2024 2:22 PM EDT Height - - Body Mass Index 47.93 05/23/2024 1:16 PM EDT documented in this [...] Progress Notes * Jorge Allen MD - 06/12/2024 2:15 PM EDT Hematology/Oncology Outpatient Clinic [place] [address] Name: Chantel Roy Date: 04/06/2024 CHIEF COMPLAINT: Chantel Roy is a 84 year old female here today for f/u visit today. HEMATOLOGY/ONCOLOGY DIAGNOSIS: Plasmacytoma involving the distal right humerus. (Lytic lesion measuring 2.7 x 6.2 x 5.8 cm, November 2018. (IgA kappa) 07/2019 --> multiple myeloma, (PET-CT scan shows multiple lytic lesions). 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 She was seenby plastic extrusion operator oncologist at [facility], high risk for surgical intervention, suggested for IUD, to be done by local pound attendant. She has not seen gone for follow-up [...] to the right distal humerus region at [facility]. -restarted Velcade, Revlimid and Decadron on 07/28/21 - 07/21/22 -palliative radiation therapy to pelvis/left hip completed 02/14/23 CURRENT TREATMENT: Now she would like to go off the treatment, she says that she would be enrolling in home hospice toprode comfort care at home. She has some increasing right upper extremity pain, left shoulder pain. No she takes oxycodone 5 mg every 4 to 6 hourly. Last treatment with weekly Cytoxan received on 05/25/2024 -last treatment with subcutaneous daratumumab on 05/25/2024. Last IVIG received on 05/11/2024. (30 g). Last Xgeva received on 05/18/2024. She was getting Xgeva 3 monthly 07/21/2022 --> decided to change the myeloma [...] every 4 weekly started in early October 2023 for hypogammaglobulinemia and frequent respiratory infections. DIAGNOSTIC WORKUP: Earlier in October 2018 she had increasing pain in the right elbow region which occurred after lifting some heavy object, she did not seek medical attention right after that but then she continued to have increasing pain, she was seen by orthopedic surgeon at [facility] and then she was referred to [facility] and was seen by Dr. Jasso. [...] on 11/21/2018: - Final pathology --> Plasmacytoma. [place] light chain restriction noted. Blood workup done on 11/10/2018: - WBC 7800, H&H of 12.9/40, Platelet count of 224,000 - BUN/creatinine: 14/0.9, calcium 9.1, normal liver function test - Total protein 7.7. - ESR --> 32 PET-CT scan done on 12/13/2018 at [facility]: - 1.3 cm lesion noted in the right parietal lobe which is not metabolically active. - No other FDG avid disease noted anywhere else. - Because of her body habitus, right distal humerus was not included in the imaging studies where lytic lesion identified. Blood workup done on 12/08/2018: - Tvln6vqcjsjxqgqkjt level --> 2.88 - IgG 1171, IgA 1028, IgM 103 - Free kappa light chain 35.8, free lambda light chain 19.5, [place]/Lambda ratio 1.83 - BUN/creatinine: 14/0.8, calcium 10.0, normal liver function test - M spike --> Unable to accurately quantitate. - SPEP --> IgA [place] paraprotein. 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 New 7.1 x 2.6 cm osteolytic lesion centered between the bilateral S1/S2 neural foramina 2. New osteolytic lesions with nondisplaced pathologic fractures involving the left femoral neck; and bilateral inferior pubic rami. Was evaluated by Dr. Jasso at [facility] 01/06/23: I recommend against prophylactic surgical treatment [...] completed radiation treatment to that area at [facility] in mid-February 2023. Has some local discomfort, she takes oxycodone twice a day for the symptomatic treatment. HISTORY OF PRESENT ILLNESS: She has come the clinic for the follow-up, accompanied by her daughter in the office, she came to clinic in the wheelchair. She says that lately she is having increasing pain in the right elbow, right shoulder, inability tolift right upper extremity, she says has practically she has not much using her right arm. She alsocomplains of left shoulder pain. Currently she takes oxycodone 5 mg every 4 to 6 hourly. Otherwise no new cardiac or pulmonary symptom, no new abdominal symptoms, denies any bleeding from the sites. She has not much ambulating. She says that she has decided to move forward with home hospice, she says that she lives by herselfshe, she can not come to the clinic every weekly for the treatment and she has some increasing painand she would like to focus on the comfort care at home. Past Medical History: Diagnosis Date Acute cholecystitis [...] performed by Gautam Jasso MD at OR [facility] BONE MARROW ASPIRATION 12/23/2018 BONE MARROW ASPIRATION performed by Gautam Jasso MD at OR [facility] CARPAL TUNNEL SURGERY Carpal Tunnel repair right DILATION AND CURETTAGE (D&C) FLUORO CHOLECYSTOGRAM GALLBLADDER W CONTRAST 1975 HUMERUS TUMOR RESECTION Right 12/23/2018 RADICAL RESECTION TUMOR SHAFT DISTAL HUMERUS performed by Gautam Jasso MD at OR [facility] INFORMATION 1989 wisdom teeth removal INSER TUNN ACC DEV;5 YRS/OLDER Right 12/29/2022 INSERT TUNNELED CENTRAL VENOUS ACCESS WITH SUBQ PORT performed by Sudhir Lovett DO at OR [facility] LIGATE/CUT OVIDUCT(S) 1965 RECONSTRUCT ELBOW W/HUMERAL REPLACE Right 12/23/2018 ARTHROPLASTY ELBOW WITH DISTAL HUMERUS REPLACEMENT performed by Gautam Jasso MD at OR [facility] REMOVAL OF APPENDIX REMOVAL OF TONSILS, UNDER AGE 12 REMOVE CATARACT, INSERT LENS PROSTH REMOVE GALLBLADDER REPLACE AORTIC VALVE, PERCUTANEOUS FEMORAL Bilateral 05/27/2022 REPLACE AORTIC VALVE, PERCUTANEOUS FEMORAL performed by Jesús Weber MD at [facility]ARD[facility] LABS [facility] REPLACE AORTIC VALVE, PERCUTANEOUS FEMORAL 05/27/2022 REPLACE AORTIC VALVE, PERCUTANEOUS FEMORAL performed by Elton Aguirre MD at [facility] LABS [facility] VASCULAR SURGERY PROCEDURE NEC Right 12/28/2023 UNLISTED PROCEDURE VASCULAR SURGERY performed by Dustin Velásquez MD at OR [facility] Social History Socioeconomic History Marital status: Spouse name: Not on file Number of children: Not on file Years of education: Not on file Highest education level: Not on file Occupational History Not on file Tobacco Use Smoking status: Never Smokeless tobacco: Never Vaping Use Vaping status: Never Used Substance and Sexual Activity Alcohol use: No Drug use: No Sexual activity: Not on file Other Topics Concern Not on file Social History Narrative Not on file Social Determinants of Health Financial Resource Strain: Not on file Food Insecurity: Not on file Transportation Needs: Not on file Social Connections: Unknown (05/01/2024) Social Connections How often do you feel lonely or isolated from those around you? (Adult - for ages 18 years and over): Not on file Housing Stability: Not on file Review of patient's allergies indicates: No Known Allergies Current Outpatient Medications Medication Sig Dispense Refill WARFARIN SODIUM 10 MG PO TABS Take by mouth. Tuesday and Tuesday 10mg. Rest of the week 8mg. LORATADINE 10 MG PO TABS 1 tab [...] a day. 30 Tab 0 nystatin (NYSTOP) 734862 UNIT/GM powder Apply topically to affected area 2 times a day. Apply to abd. Skin folds 15 g 0 atorvaSTATin (LIPITOR) 10 MG Tablet daily. Steel Rolling Walker Use as directed . Rollator walker 1 Each 0 Prochlorperazine Maleate 10 MG Oral Tablet (Compazine) [...] times a day as needed for Diarrhea. Aspirin Low Dose 81 MG Oral Tablet Chewable (aspirin) TAKE 1 TABLET BY MOUTH EVERY DAY IN THE MORNING 90 Tablet 3 Furosemide 20 MG Oral Tablet (Lasix) TAKE 1 TABLET BY MOUTH EVERY DAY IN THE MORNING (Patient taking differently: Alternate taking 20mg and 40mg daily) 90 Tablet 3 Venlafaxine HCl 75 MG Oral Tablet (Effexor) Take 1 Tablet by mouth in the morning. In the am.. 90 Tablet 03 Potassium Chloride ER 10 MEQ Oral Tablet Extended Release TAKE BY MOUTH 1 TABLET IN THE MORNING AND1 TABLET IN THE EVENING BEFORE BEDTIME. 180 Tablet 0 Albuterol Sulfate HFA 108 (90 Base) MCG/ACT Inhalation Aerosol Solution Inhale 2 Puffs by mouth every 6 hours as needed for Shortness of Breath. Ondansetron HCl 8 MG Oral Tablet (Zofran) Take 1 Tablet by mouth every 8 hours as needed for Nausea. 20 Tablet 1 Lidocaine-Prilocaine 2.5-2.5 % External Cream (Emla) APPLY TO SKIN OVER MEDIPORT & COVER 1HR PRIOR TO ACCESSING. 30 g 1 Metoprolol Tartrate 25 MG Oral Tablet (Lopressor) Take 1 Tablet by mouth in the morning and 1 Tablet before bedtime. Phospha 250 Neutral 155-852-130 MG Oral Tablet TAKE 1 TABLET BY MOUTH IN THE MORNING AND BEFORE BEDTIME 180 Tablet 1 dexAMETHasone 4 MG Oral Tablet (Decadron) Take 20mg once a week 60 Tablet 1 oxyCODONE HCl 5 MG Oral Tablet (Oxy IR) Take 1-2 Tablets by mouth every 6 hours as needed for Pain,Breakthrough. 60 Tablet 0 No current facility-administered medications for this visit. REVIEW OF SYSTEMS: See HPI - otherwise negative OBJECTIVE: BP 107/66 (BP Site: Left Arm, BP Position: Sitting, BP Cuff Size: Large) | Pulse 75 | Temp 36.3 C(97.3 F) (Tympanic) | Wt 107.6 kg (237 lb 4.8 oz) | SpO2 95% | BMI 47.93 kg/m | BSA 2.12 m PHYSICAL EXAM: ECOG: Performance Status 2 = [...] today; forgetful LABS: Blood workup done on 06/07/2024: - WBC 2700, H&H of 10/32.4, platelet count of 91,000 - ANC 1900, Absolute Lymphocyte count 160 - BUN/Creat: 14/1.0, calcium 8.8, normal LFT. - M spike --> Unable to accurately quantitate - Free kappa light chain --> 15.1, free lambda light chain around 1.3, [place]/Lambda ratio -->10.9 - IgG 684, IgA 209, IgM 21. PET-CT scan done on 06/11/2024: -increased FDG uptake noted in the distal left acromion with the lytic changes -surrounding rotator cuff soft tissue also demonstrate increased activity appears to be inflammatory. (left shoulder) -stable appearance of the previously noted destructive changes in the sacral vertebral bodies -stable uptake noted within the right distal humerus/elbow. - Well areas of lytic changes in the bones without FDG uptake. -no other suspicious findings noted in the chest or abdomen. IMPRESSION/PLAN: Multiple Myeloma Cancer related pain Hypogammaglobulinemia Anemia Lab results reviewed: Currently she is receiving daratumumab, cyclophosphamide for the myeloma treatment, Xgeva every 3 monthly for the myeloma bones, IVIG for the hypogammaglobulinemia. Lately she has significant trouble coming back and forth to the clinic, she ambulates with the helpof the wheelchair, no recent infections. I reviewed her recent myeloma blood workup, overall good response noted, no progression noted, reviewed the PET-CT scan findings, overall stable myeloma findings, significant DJD another benign findings noted. She says that she is on treatment for the last 5 years and now it is difficult for her to maintain quality of life, she lives by herself, she would like to stay at home and have comfort care. She hasalready decided to move forward with hospice. She will continue oxycodone 5 mg every 4 hourly, once hospice takes over, they will manage her painmedication, we should also consider long-acting opioid therapy with short-acting for the breakthrough pain. She will let us know how she does in the next few weeks. I am still expecting her to do well in the next several months. If she decides to change her plan, she will let us know. Will see her as needed. Dr. Jorge Allen Hem/Onc (This note was completed using the dictation program Fluency Direct. As such, there may be misspellings word substitutions, or other variations that should not change the essence of the clinical content of this encounter note. If there is need for further clarification, please direct questions to the provider listed above.) documented in this encounter Nursing Notes * Robina Hanna MED ASSIST - 06/12/2024 2:25 PM EDT Patient identifed by name and birthdate Do you have any concerns about pain management for today's visit? Yes. Patient instructed to discuss pain concerns with provider during the visit today Living Will or Advance Directive for Health Care as noted on the problem list. [facility] is a way you can talk to your provider on line through e-mail. Would you like to sign up? I can activate it for you? ALREADY ACTIVE Filed Vitals: 06/12/24 1422 BP: 107/66 Pulse: 75 Temp: 36.3 C (97.3 F) TempSrc: Tympanic SpO2: 95% Weight: 107.6 kg (237 lb 4.8 oz) Patient was instructed to not get up [...] Care Team (Late st Contact Info) Description 06/22/2024 11:00 AM EDT Laboratory [facility] [address] [place] [id number] [place], Lab Scenery [address] [place] [address] 06/22/2024 12:00 PM EDT Hem/Onc Treatment Hematology/Oncology Treatment, [place] [address] [facility] [address] Ritu, Chair 1 Hem Onc Scenery [address] [place] [address] 06/29/2024 11:00 AM EDT Laboratory Laboratory [facility] [address] [place] [address] Ritu, Lab Scenery [address] [place] [address] 06/29/2024 12:00 PM EDT Hem/Onc Treatment Hematology/Oncology Treatment, [place] [address] [facility] [address] Ritu, Chair 5 Hem Onc Scenery [address] [place] [address] 07/06/2024 11:10 AM EDT Laboratory Laboratory [facility] [place] [address] [place] [address] Ritu, Lab Scenery [address] [place] [address] 07/06/2024 11:15 AM EDT [facility] [address] [facility] [address] Ritu, Chair 7 Hem Onc Scenery [address] [place] [address] 07/13/2024 11:00 AM EDT Laboratory Laboratory [facility] [place] [address] [place] [address] Ritu, Lab Scenery [address] [place] [address] 07/13/2024 12:00 PM EDT Hem/Onc Treatment Hematology/Oncology Treatment, [place] [address] [place] [address] 08/20/2024 3:30 PM EDT Office Visit Orthopaedics, [place] [address] [place] [address] Gautam Jasso MD [address] [place] [address] Health Maintenance Due Date Last Done Comments [...] this encounter Medical Devices Implanted Type Area Ice Cream Vendor Device Identifier Shelf Expiration Date Model / Serial / Lot Screw Elbow Humeral Total - [id number] Implanted:Qty: 1 on 12/23/2018 by Gautam Jasso MD at OR [facility] Right: Upper Arm [employer] 09/13/2027 00-8400-090 -00 / / [id number] Deisi Nexel Total Elbow Implanted:Qty: 1 on 12/23/2018 by Gautam Jasso MD at OR [facility] Right: Upper Arm 04/13/2023-8400-095 -00 / / [id number] Cement Antibiotic Bone - [id number] Implanted:Qty: 1 on 12/23/2018 by Gautam Jasso MD at OR [facility] Right: Upper Arm RENY : ORTHOPAEDICS 05/13/2020 6197-9-010 / / [id number] Cement Antibiotic Bone - [id number] Implanted:Qty: 1 on 12/23/2018 by Gautam Jasso MD at OR [facility] Right: Upper Arm RENY : ORTHOPAEDICS 05/13/2020 6197-9-010 / / [id number] Stem Compr Srs Mod [id number] - [id number] Implanted:Qty: 1 on 12/23/2018 by Gautam Jasso MD at OR [facility] Right: Upper Arm BIOMET : TRAUMA 01/28/2027 [id number] / / [id number] Deisi Nexel Total Elbow Ulnar Component Implanted:Qty: 1 on 12/23/2018 by Gautam Jasso MD at OR [facility] Right: Upper Arm 07/14/20258400-025 -07 / / [id number] Comprehensive Srs/Nexel Distal Body Implanted:Qty: 1 on 12/23/2018 by Gautam Jasso MD at OR [facility] Right: Upper Arm 03/03/2028 [id number] / / [id number] Valve Ricky 3 Ultra 26mm - [id number] Implanted:Qty: 1 on 05/27/2022 by Jesús Weber MD at CARDIAC LABS [facility] [employer] [id number] 03/17/2023 [id number] / / Port Implant W/8f Poly Cath - [id number] Implanted:Qty: 1 on 12/29/2022 by Sudhir Lovett DO at OR [facility] Right: Chest CR BARD : PERIPHERAL VASCULAR [id number] 02/12/2024 [id number] / / [id number] documented as of this encounter Visit Diagnoses Diagnosis Hypogammaglobulinemia (HCC)- Primary Hypogammaglobulinaemia, unspecified Multiple myeloma not having achieved remission (HCC) Multiple myeloma, without mention of having achieved remission Cancer related pain Neoplasm related pain (acute) (chronic) documented in this encounter Advance Directives Documents on File Type Date Recorded Patient Wharf Worker Expl anation Power of Ornithology Teacher 12/12/2018 8:46 AM Vipin viveros Power of Ornithology Teacher Power of Ornithology Teacher 12/12/2018 8:45 AM Zuleyma ferguson Power of Ornithology Teacher * Full Code (Latest Code Status on [...] the patient have Health Care Power of Ornithology Teacher? Yes, not currently available * Full Code Date Activated Date Inactivated Comments 11/21/2018 8:53 AM 11/21/2018 2:27 PM This order ref lects the patients wishes and were consensually agreed upon. Care Teams Silversmith Apprentice Relationship Specialty Start Date End Date Sachi Soni MD [address] [place] [address] PCP - General Family Medicine 05/08/24 documented as of this encounter"
--- OUTSIDE RECORDS SUMMARY | 2024-07-01 14:37 | External Medical Summary | Summary of Care ---
Author Name Unknown Organization [facility] Address [address] [facility] [place] [address] Phone [phone] Care Team Providers Care Lining Mechanic Name Role Phone Sachi Soni MD Primary Care Provider [phone] Reason for Visit * Reason Comments Chemotherapy Cytoxan, xgeva * Episode Based Medications (Routine) - Authorized Specialty Diagnoses / Procedures Referred By Contac t Referred To Contact Diagnoses Multiple myeloma not having achieved remission (HCC) Procedures WA DARATUMUMAB, HYALURONIDASE WA CYCLOPHOSPHAMIDE 100 MG INJ WA INJ, CYCLOPHOSPHAMIDE, NOS Jorge Allen MD [address] [place] [address] Anc Hem/Onc [facility] DEPT CLOSED - 09/27/23 [address] [place] [address] Referral ID Status Reason Start Date Expiration Date V isits Requested Visits Authorized [id number] Authorized 07/23/2022 11/13/2099 999 99 Encounter Details Date Type Department Care Team (Latest Contact Info) Description 05/18/2024 12:00 PM EDT Hem/Onc Treatment Hematology/Oncolog y Treatment, [place] [address] [place] [address] Ritu, [...] day. 30 Tab 12/25/2018 Active nystatin (NYSTOP) 081150 UNIT/GM powder Apply topically to affected area [...] encounter Medical Devices Implanted Type Area Clinical Outcomes Manager Device Identifier Shelf Expiration Date Model / Serial / Lot Screw Elbow Humeral Total - [id number] Implanted:Qty: 1 on 12/23/2018 by Gautam Jasso MD at [place] [facility] Right: Upper Arm [employer] 09/13/202700-090 -00 / / [id number] Deisi Nexel Total Elbow Implanted:Qty: 1 on 12/23/2018 by Gautam Jasso MD at OR [facility] Right: Upper Arm 04/13/202300-095 -00 / / [id number] Cement Antibiotic Bone - [id number] Implanted:Qty: 1 on 12/23/2018 by Gautam Jasso MD at OR [facility] Right: Upper Arm RENY : ORTHOPAEDICS 05/13/2020 6197-9-010 / / [id number] Cement Antibiotic Bone - [id number] Implanted:Qty: 1 on 12/23/2018 by Gautam Jasso MD at OR [facility] Right: Upper Arm RENY : ORTHOPAEDICS 05/13/2020 6197-9-010 / / [id number] Stem Compr Srs Mod [id number] - [id number] Implanted:Qty: 1 on 12/23/2018 by Gautam Jasso MD at OR [facility] Right: Upper Arm BIOMET : TRAUMA 01/28/2027 [id number] / / [id number] Deisi Nexel Total Elbow Ulnar Component Implanted:Qty: 1 on 12/23/2018 by Gautam Jasso MD at OR [facility] Right: Upper Arm 07/14/2025 00-8400-025 -07 / / [id number] Comprehensive Srs/Nexel Distal Body Implanted:Qty: 1 on 12/23/2018 by Gautam Jasso MD at OR [facility] Right: Upper Arm 03/03/2028 [id number] / / [id number] Valve Ricky 3 Ultra 26mm - [id number] Implanted:Qty: 1 on 05/27/2022 by Jesús Weber MD at CARDIAC LABS [facility] [employer] [id number] 03/17/2023 [id number] / / Port Implant W/8f Poly Cath - [id number] Implanted:Qty: 1 on 12/29/2022 by Sudhir Lovett DO at OR [facility] Right: Chest CR BARD : PERIPHERAL VASCULAR [id number] 02/12/2024 [id number] / / [id number] documented as of this encounter Visit Diagnoses [...] Documents on File Type Date Recorded Patient Reel Hooker Expl anation Power of Rn Child 12/12/2018 8:46 AM Vipin viveros Power of Rn Child Power of Rn Child 12/12/2018 8:45 AM Zuleyma ferguson Power of Rn Child * Full Code (Latest Code Status on [...] the patient have Health Care Power of Rn Child? Yes, not currently available * Full Code Date Activated Date Inactivated Comments 11/21/2018 8:53 AM 11/21/2018 2:27 PM This order ref lects the patients wishes and were consensually agreed upon. Care Teams Lining Mechanic Relationship Specialty Start Date End Date Sachi Soni MD [address] [place] [facility] [place] [address] PCP - General Family Medicine 05/08/24 documented as of this encounter
--- OUTSIDE RECORDS SUMMARY | 2024-07-01 14:37 | External Medical Summary | Summary of Care ---
Author Name Unknown Organization [facility] Address [address] [facility] [place] [address] Phone [phone] Care Team Providers Care Aerial Crop Duster Name Role Phone Sachi Soni MD Primary [...] NOS Jorge Allen MD [address] [place] [address] Anc Hem/Onc [place] DEPT CLOSED - 09/27/23 [address] [place] [address] Referral ID Status Reason Start Date Expiration Date V isits Requested Visits Authorized [id number] Authorized 07/23/2022 11/13/2099 999 99 Encounter Details Date Type Department Care Team (Latest Contact Info) Description 05/25/2024 12:00 PM EDT Hem/Onc Treatment Hematology/Oncolog y Treatment, [place] [address] [place] [address] Ritu, Chair 3 Hem Onc Scenery [address] [place] [address] Multiple myeloma not having achieved remission (HCC)*; [...] day. 30 Tab 12/25/2018 Active nystatin (NYSTOP) 182337 UNIT/GM powder Apply topically to affected area [...] this encounter Medical Devices Implanted Type Area Mine Wedge Sawyer Device Identifier Shelf Expiration Date Model / Serial / Lot Screw Elbow Humeral Total - [id number] Implanted:Qty: 1 on 12/23/2018 by Gautam Jasso MD [place] [facility] [place]: Upper Arm DEISI INC 09/13/202700-090 - / / [id number] Deisi Nexel Total Elbow Implanted:Qty: 1 on 12/23/2018 by Gautam Jasso MD at [place] [facility] Right: Upper Arm 04/13/2023-5 - / / [id number] Cement Antibiotic Bone - [id number] Implanted:Qty: 1 on 12/23/2018 by Gautam Jasso MD at [place] [facility] Right: Upper Arm RENY : ORTHOPAEDICS 05/13/2020 6197-9-010 / / [id number] Cement Antibiotic Bone - [id number] Implanted:Qty: 1 on 12/23/2018 by Gautam Jasso MD at [place] [facility] Right: Upper Arm RENY : ORTHOPAEDICS 05/13/2020 6197-9-010 / / [id number] Stem Compr Srs Mod [id number] - [id number] Implanted:Qty: 1 on 12/23/2018 by Gautam Jasso MD at [place] [facility] Right: Upper Arm BIOMET : TRAUMA 01/28/2027 [id number] / / [id number] Deisi Nexel Total Elbow Ulnar Component Implanted:Qty: 1 on 12/23/2018 by Gautam Jasso MD at [place] [facility] Right: Upper Arm 07/14/2025 00-8400-025 -07 / / [id number] Comprehensive Srs/Nexel Distal Body Implanted:Qty: 1 on 12/23/2018 by Gautam Jasso MD at [place] [facility] Right: Upper Arm 03/03/2028 [id number] / / [id number] Valve Ricky 3 Ultra 26mm - [id number] Implanted:Qty: 1 on 05/27/2022 by Jesús Weber MD at [facility] [employer] [id number] 03/17/2023 [id number] / / Port Implant W/8f Poly Cath - [id number] Implanted:Qty: 1 on 12/29/2022 by Sudhir Lovett DO at OR [facility] Right: Chest CR BARD : PERIPHERAL VASCULAR [id number] 02/12/2024 [id number] / / [id number] documented as of this encounter Visit Diagnoses [...] 516.2 mL/hr Daratumumab-hyaluronida se-fij (Darzalex Faspro) 1800 mg-27734 units/ 15 ml subcut inj 15 mL, [...] Documents on File Type Date Recorded Patient Cytopathology Technologist Expl anation Power of Intelligence Clerk 12/12/2018 8:46 AM Vipin viveros Power of Intelligence Clerk Power of Intelligence Clerk 12/12/2018 8:45 AM Zuleyma ferguson Power of Intelligence Clerk * Full Code (Latest Code Status [...] the patient have Health Care Power of Intelligence Clerk? Yes, not currently available * Full Code Date Activated Date Inactivated Comments 11/21/2018 8:53 AM 11/21/2018 2:27 PM This order ref lects the patients wishes and were consensually agreed upon. Care Teams Aerial Crop Duster Relationship Specialty Start Date End Date Sachi Soni MD [address] [facility] [place] [address] PCP - General Family Medicine 05/08/24 documented as of this encounter
--- OUTSIDE RECORDS SUMMARY | 2024-07-01 14:37 | External Medical Summary | Summary of Care ---
Author Name Unknown Organization [facility] Address [address] [place] [address] Phone [phone] Care Team Providers Care Intelligent Systems Engineer Name Role Phone Sachi Soni MD Primary Care Provider Reason for Visit * Reason Onset Date Comments Fax 06/08/2024 Dr. Allen Order Request 06/08/2024 Encounter Details Date Type Department Care Team (Late st Contact Info) Description 06/08/2024 Telephone Hematology/Oncology [facility] [place] [address] [facility] [address] Services, Scheduling [address] [place] [address] Fax (Dr. Allen ); Order Request Allergies No known active allergiesdocumented as of [...] day. 30 Tab 12/25/2018 Active nystatin (NYSTOP) 173181 UNIT/GM powder Apply topically to affected area [...] needed for Pain, Breakthrough. 60 Tablet 06/04/2024 Active documented as of this encounter (statuses [...] Telephone Encounter - Love Quick RN - 06/12/2024 9:17 AM EDT TT sent to Dr Evelyn Craft to see if PET can be read prior to appt this afternoon. * Telephone Encounter - Love Quick RN - 06/08/2024 2:28 PM EDT Reviewed with Dr Allen- patient has PET 06/11/24, he will discuss/ place hospice referral at office visit 06/12/24. * Telephone Encounter - Merrick Gross RN - 06/08/2024 12:10 PM EDT Called Chloe to clarify. She states that a hospice referral is needed, discussed with the patient and her daughter about the services and what they entail. Pt daughter Meghana requesting referral to be placed. Dr. Allen- please place referral. Thank you. * Telephone Encounter - Oly Fernandez OSA - 06/08/2024 11:05 AM EDT Chloe with [facility] called to request a referral, the patients history and physical notes, a med list, demographics, any recent notes and a hospice order. She advised this can be faxed to [phone]. Chloe can be reached at [phone] with any questions. Thank you. documented in this encounter Plan of Treatment Upcoming Encounters Date Type Department Care Team (Late st Contact Info) Description 06/12/2024 2:15 PM EDT Office Visit Hematology/Oncology [facility] [place] [address] [place] [phone] Jorge Allen MD [address] [place] [address] 06/22/2024 11:00 AM EDT Laboratory Laboratory [facility] [place] [address] [place] [phone] Ritu, Lab [facility] [address] [place] [address] 06/22/2024 12:00 PM EDT Hem/Onc Treatment [facility] [place] [facility] [address] Ritu, Chair 1 Hem Onc [facility] [address] [place] [address] 06/29/2024 11:00 AM EDT Laboratory Laboratory [facility] [place] [address] [place] [address] Ritu, Lab [facility] 200 [facility] [place] [address] 06/29/2024 12:00 PM EDT Hem/Onc Treatment Hematology/Oncology Treatment, [place] [address] [facility] [address] Ritu, Chair 5 Hem Onc Scenery [address] [place] [address] 07/06/2024 11:10 AM EDT Laboratory Laboratory [facility] [address] [place], [place] [address] Ritu, Lab Scenery [address] [place], [place] [address] 07/06/2024 11:15 AM EDT Hem/Onc Treatment Hematology/Oncology Treatment, [address], [place] [phone] Ritu, Chair 7 Hem Onc [facility] 200 [facility] [place], [place] [address] 07/13/2024 11:00 AM EDT Laboratory Laboratory [facility] [place] [address] [place], [place] [phone] Ritu, Lab Scenery 200 [facility] [place], [place] [address] 07/13/2024 12:00 PM EDT Hem/Onc Treatment Hematology/Oncology Treatment, [address], [place] [phone] 08/20/2024 3:30 PM EDT Office Visit Orthopaedics, [place] [address] [place] [address] Gautam Jasso MD [address] [place] [address] Health Maintenance Due Date Last Done Comments [...] this encounter Medical Devices Implanted Type Area Men'S Locker Room Attendant Device Identifier Shelf Expiration Date Model / Serial / Lot Screw Elbow Humeral Total - [id number] Implanted:Qty: 1 on 12/23/2018 by Gautam Jasso MD at [place] [facility] Right: Upper Arm [employer] INC 09/13/20278400-090 -00 / / [id number] Abel Nexel Total Elbow Implanted:Qty: 1 on 12/23/2018 by Gautam Jasso MD at OR [facility] Right: Upper Arm 04/13/20238400-095 -00 / / [id number] Cement Antibiotic Bone - [id number] Implanted:Qty: 1 on 12/23/2018 by Gautam Jasso MD at OR [facility] Right: Upper Arm RENY : ORTHOPAEDICS 05/13/2020 6197-9-010 / / [id number] Cement Antibiotic Bone - [id number] Implanted:Qty: 1 on 12/23/2018 by Gautam Jasso MD at OR [facility] Right: Upper Arm RENY : ORTHOPAEDICS 05/13/2020 6197-9-010 / / [id number] Stem Compr Srs Mod [id number] - [id number] Implanted:Qty: 1 on 12/23/2018 by Gautam Jasso MD at OR [facility] Right: Upper Arm BIOMET : TRAUMA 01/28/2027 [id number] / / [id number] Abel Nexel Total Elbow Ulnar Component Implanted:Qty: 1 on 12/23/2018 by Gautam Jasso MD at OR [facility] Right: Upper Arm 07/14/20258400-025 -07 / / [id number] Comprehensive Srs/Nexel Distal Body Implanted:Qty: 1 on 12/23/2018 by Gautam Jasso MD at OR [facility] Right: Upper Arm 03/03/2028 [id number] / / [id number] Valve Ricky 3 Ultra 26mm - [id number] Implanted:Qty: 1 on 05/27/2022 by Jesús Weber MD at [facility]ARD[facility]S [facility] [employer] [id number] 03/17/2023 [id number] / / Port Implant W/8f Poly Cath - [id number] Implanted:Qty: 1 on 12/29/2022 by Sudhir Lovett DO at OR [facility] Right: Chest CR BARD : PERIPHERAL VASCULAR [id number] 02/12/2024 [id number] / / [id number] documented as of this encounter Advance Directives Documents on File Type Date Recorded Patient Echo Technician Expl anation Power of Lime Mixer 12/12/2018 8:46 AM Vipin viveros Power of Lime Mixer Power of Lime Mixer 12/12/2018 8:45 AM Zuleyma ferguson Power of Lime Mixer * Full Code (Latest Code Status on [...] the patient have Health Care Power of Lime Mixer? Yes, not currently available * Full Code Date Activated Date Inactivated Comments 11/21/2018 8:53 AM 11/21/2018 2:27 PM This order ref lects the patients wishes and were consensually agreed upon. Care Teams Intelligent Systems Engineer Relationship Specialty Start Date End Date Sachi Soni MD [address] [place] [address] PCP - General Family Medicine 05/08/24 documented as of this encounter
--- OUTSIDE RECORDS SUMMARY | 2024-07-01 14:37 | External Medical Summary | Summary of Care ---
Author Name Unknown Organization [facility] Address [address] [place] [address] Phone [phone] Care Team Providers Care Hog Ringer Name Role Phone Sachi Soni MD Primary Care Provider [phone] Reason for Visit * Reason Onset Date Comments Fax 06/08/2024 Dr. Allen Order Request 06/08/2024 Encounter Details Date Type Department Care Team (Late st Contact Info) Description 06/08/2024 Telephone Hematology/Oncology [facility] [place] [address] [facility] [address] Services, Scheduling [address] [place] [address] Fax (Dr. Allen ); Order Request Allergies [...] day. 30 Tab 12/25/2018 Active nystatin (NYSTOP) 242650 UNIT/GM powder Apply topically to affected area [...] can be read prior to appt this afternoon- she states that report will be complete soon. * Telephone Encounter - Love Quick RN [...] - 06/08/2024 11:05 AM EDT Chloe with [facility] called to request a referral, the patients history and physical notes, a med list, demographics, any recent notes and a hospice order. She advised this can be faxed to [phone]. Chloe can be reached at [phone] with any questions. Thank you. documented in this encounter Plan of Treatment Upcoming Encounters Date Type Department Care Team (Late st Contact Info) Description 06/12/2024 2:15 PM EDT Office Visit Hematology/Oncology [facility] [place] [address] [place] [phone] Jorge Allen MD [address] [place] [address] 06/22/2024 11:00 AM EDT Laboratory Laboratory [facility] [place] [address] [place] [phone] R[address]u Lab [facility] [address] [facility] [place] [address] 06/22/2024 12:00 PM EDT Hem/Onc Treatment Hematology[facility] [place] [facility] [address] Ritu, Chair 1 Hem Onc Scene [address] [place] [address] 06/29/2024 11:00 AM EDT Laboratory Laboratory [facility] [address] [place] [address] [place] [address] Ritu, Lab [facility] [address] [facility] [place] [address] 06/29/2024 12:00 PM EDT Hem/Onc Treatment Hematology/Oncology Treatment, [place] 200 [facility] [place] [address] Ritu, Chair 5 Hem Onc Scenery [address] [place] [address] 07/06/2024 11:10 AM EDT Laboratory Laboratory [facility] [address] [place], [place] [phone] Ritu, Lab Scenery 200 [facility] [place], [place] [address] 07/06/2024 11:15 AM EDT Hem/Onc Treatment Hematology/Oncology Treatment, [place] [facility], [place] [phone] Ritu, Chair [address] [facility] [address] [facility] [place], [place] [address] 07/13/2024 11:00 AM EDT Laboratory Laboratory [facility] [address] [place] [address] [place], [place] [phone] Ritu, Lab Scenery [address] [facility] [place], [place] [address] 07/13/2024 12:00 PM EDT Hem/Onc Treatment Hematology/Oncology Treatment, [address], [place] [phone] 08/20/2024 3:30 PM EDT Office Visit Orthopaedics, [place] [address] [place] [address] Gautam Jasso MD [address] [place] [address] Health Maintenance Due Date Last Done Comments DXA Scan 1940 Depression Screening 1952 Diabetic Eye Exam 1958 Diabetic Foot Exam 1958 DTaP,Tdap,and Td Vaccines (1 - Tdap) 1959 Zoster Vaccines (1 of 2) 1959 COVID-19 Vaccine (2 - Pfizer risk series) 06/29/2021 06/08/2021, 06/08/2021 Albumin/Creatinine Ratio 12/11/2021 12/11/2020 Influenza Vaccine (FLU shot) (#1) 2024 09/04/2016 HbA1c 12/08/2024 06/07/2024, 1204/2023, 12/11/2020, Additional history exists GFR 06/07/2025 06/07/2024, [...] this encounter Medical Devices Implanted Type Area Barker Operator Device Identifier Shelf Expiration Date Model / Serial / Lot Screw Elbow Humeral Total - [id number] Implanted:Qty: 1 on 12/23/2018 by Gautam Jasso MD [place] [facility] [place] Right: Upper Arm [employer] 09/13/20278400-090 -00 / / [id number] Abel Nexel Total Elbow Implanted:Qty: 1 on 12/23/2018 by Gautam Jasso MD at [place] [facility] Right: Upper Arm 04/13/20238400-095 -00 / / [id number] Cement Antibiotic Bone - [id number] Implanted:Qty: 1 on 12/23/2018 by Gautam Jasso MD at [place] [facility] Right: Upper Arm RENY : ORTHOPAEDICS 05/13/2020 6197-9-010 / / [id number] Cement Antibiotic Bone - [id number] Implanted:Qty: 1 on 12/23/2018 by Gautam Jasso MD at [place] [facility] Right: Upper Arm RENY : ORTHOPAEDICS 05/13/2020 6197-9-010 / / [id number] Stem Compr Srs Mod [id number] - [id number] Implanted:Qty: 1 on 12/23/2018 by Gautam Jasso MD at [place] [facility] Right: Upper Arm BIOMET : TRAUMA 01/28/2027 [id number] / / [id number] Nexel Total Elbow Ulnar Component Implanted:Qty: 1 on 12/23/2018 by Gautam Jasso MD at [place] [facility] Right: Upper Arm 07/14/20258400-025 - / / [id number] Comprehensive Srs/Nexel Distal Body Implanted:Qty: 1 on 12/23/2018 by Gautam Jasso MD at [place] [facility] Right: Upper Arm 03/03/2028 [id number] / / [id number] Valve Ricky 3 Ultra 26mm - [id number] Implanted:Qty: 1 on 05/27/2022 by Jesús Weber MD at [facility] [employer] [id number] 03/17/2023 [id number] / / Port Implant W/8f Poly Cath - [id number] Implanted:Qty: 1 on 12/29/2022 by Sudhir Lovett DO at OR [facility] Right: Chest CR BARD : PERIPHERAL VASCULAR [id number] 02/12/2024 [id number] / / [id number] documented as of this encounter Advance Directives Documents on File Type Date Recorded Patient Loss Prevention Specialist Expl anation Power of Field Crop Harvest Worker 12/12/2018 8:46 AM Vipin viveros Power of Field Crop Harvest Worker Power of Field Crop Harvest Worker 12/12/2018 8:45 AM Zuleyma ferguson Power of Field Crop Harvest Worker * Full Code (Latest Code Status on [...] the patient have Health Care Power of Field Crop Harvest Worker? Yes, not currently available * Full Code Date Activated Date Inactivated Comments 11/21/2018 8:53 AM 11/21/2018 2:27 PM This order ref lects the patients wishes and were consensually agreed upon. Care Teams Hog Ringer Relationship Specialty Start Date End Date Sachi Soni MD [address] [place] [facility] [place] [address] PCP - General Family Medicine 05/08/24 documented as of this encounter
--- OUTSIDE RECORDS SUMMARY | 2024-07-01 14:37 | External Medical Summary | Summary of Care ---
Author Name Unknown Organization [facility] Address [address] [facility] [place] [address] Phone [phone] Care Team Providers Care Weight Caller Name Role Phone Sachi Soni MD Primary Care Provider [phone] Reason for Visit * Reason Comments Chemotherapy Cytoxan/Darzalex Fas pro * Episode Based Medications (Routine) - Authorized Specialty Diagnoses / Procedures Referred By Contac t Referred To Contact Diagnoses Multiple myeloma not having achieved remission (HCC) Procedures VA DARATUMUMAB, HYALURONIDASE VA CYCLOPHOSPHAMIDE 100 MG INJ VA INJ, CYCLOPHOSPHAMIDE, NOS Jorge Allen MD [address] [place] [address] Anc Hem/Onc [place] DEPT CLOSED - 09/27/23 [address] [place] [address] Referral ID Status Reason Start Date Expiration Date V isits Requested Visits Authorized [id number] Authorized 07/23/2022 11/13/2099 999 99 Encounter Details Date Type Department Care Team (Latest Contact Info) Description 05/25/2024 12:00 PM EDT Hem/Onc Treatment Hematology/Oncolog y Treatment, [place] [address] [place] [address] Ritu, Chair 3 Hem Onc Scenery [address] [place] [address] Multiple myeloma not having achieved remission (HCC)*; Encounter for antineoplastic chemotherapy Allergies No known active allergiesdocumented as of this encounter (statuses as of 06/21/2024) Medications Medication Sig Dispensed Refills Start Date [...] day. 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 Aortic valve stenosis 2021 documented as of this encounter (statuses as of 06/21/2024) Social History Tobacco Use Types Packs/Day Years [...] encounter Medical Devices Implanted Type Area Ice Skating Instructor Device Identifier Shelf Expiration Date Model / Serial / Lot Screw Elbow Humeral Total - [id number] Implanted:Qty: 1 on 12/23/2018 [place] [facility] [place]: Upper Arm [employer] 09/13/202700-090 - / / [id number] Deisi Nexel Total Elbow Implanted:Qty: 1 on 12/23/2018 by Gautam Jasso MD [place] [facility] Right: Upper Arm 04/13/2023-5 - / / [id number] Cement Antibiotic Bone - [id number] Implanted:Qty: 1 on 12/23/2018 by Gautam Jasso MD [place] [facility] [place]: Upper Arm RENY : ORTHOPAEDICS 05/13/2020 6197-9-010 / / [id number] Cement Antibiotic Bone - [id number] Implanted:Qty: 1 on 12/23/2018 by Gautam Jasso MD [place] [facility] [place]: Upper Arm RENY : ORTHOPAEDICS 05/13/2020 6197-9-010 / / [id number] Stem Compr Srs Mod [id number] - [id number] Implanted:Qty: 1 on 12/23/2018 by Gautam Jasso MD [place] [facility] Right: Upper Arm BIOMET : TRAUMA 01/28/2027 [id number] / / [id number] Deisi Nexel Total Elbow Ulnar Component Implanted:Qty: 1 on 12/23/2018 by Gautam Jasso MD [place] [facility] Right: Upper Arm 07/14/2025 00-8400-025 -07 / / [id number] Comprehensive Srs/Nexel Distal Body Implanted:Qty: 1 on 12/23/2018 by Gautam Jasso MD [place] [facility] Right: Upper Arm 03/03/2028 [id number] / / [id number] Valve Ricky 3 Ultra 26mm - [id number] Implanted:Qty: 1 on 05/27/2022 by Jesús Weber MD at [facility] [employer] [id number] 03/17/2023 [id number] / / Port Implant W/8f Poly Cath - [id number] Implanted:Qty: 1 on 12/29/2022 by Sudhir Lovett DO at OR [facility] Right: Chest CR BARD : PERIPHERAL VASCULAR [id number] 02/12/2024 [id number] / / [id number] documented as of this encounter Visit Diagnoses [...] 516.2 mL/hr Daratumumab-hyaluronida se-fij (Darzalex Faspro) 1800 mg-95086 units/ 15 ml subcut inj 15 mL, [...] Documents on File Type Date Recorded Patient Bread Jockey Expl anation Power of Remote Operations Producer 12/12/2018 8:46 AM Vipin viveros Power of Remote Operations Producer Power of Remote Operations Producer 12/12/2018 8:45 AM Zuleyma ferguson Power of Remote Operations Producer * Full Code (Latest Code Status on [...] the patient have Health Care Power of Remote Operations Producer? Yes, not currently available * Full Code Date Activated Date Inactivated Comments 11/21/2018 8:53 AM 11/21/2018 2:27 PM This order ref lects the patients wishes and were consensually agreed upon. Care Teams Weight Caller Relationship Specialty Start Date End Date Sachi Soni MD [address] [place] [address] PCP - General Family Medicine 05/08/24 documented as of this encounter
--- OUTSIDE RECORDS SUMMARY | 2024-07-01 14:37 | External Medical Summary | Summary of Care ---
Author Name Unknown Organization [facility] [address] [facility] [address] Phone [phone] Care Team Providers Care Testing Lead Name Role Phone Sachi Soni MD Primary Care Provider Reason for Visit * Reason Onset Date Comments Information 06/19/2024 Encounter Details Date Type Department Care Team (Late st Contact Info) Description 06/19/2024 Telephone Hematology/Oncology Treatment, [address] [address] Jorge Allen MD [address] [place] [address] Information Allergies No known active allergiesdocumented as [...] day. 30 Tab 12/25/2018 Active nystatin (NYSTOP) 606522 UNIT/GM powder Apply topically to affected area [...] Encounter - Love Quick RN - 06/19/2024 3:05 PM EDT Called patient. She states that she has liquid ativan and morphine from hospice, wanted to know if she should take this. Advised her that she should only take this when hospice tells her it is ok to.She notes that she is still taking oxycodone and pain is controlled. Called patients daughter- they are working on getting her into extermination supervisor care. She states that the hospice nurse is going out today to see Chantel and instruct her on medications, she will reiterate to Chantel not to take ativan or morphine until hospice tells her to start them. * Telephone Encounter - Love Quick RN [...] this encounter Medical Devices Implanted Type Area Medical Interpreter Device Identifier Shelf Expiration Date Model / Serial / Lot Screw Elbow Humeral Total - [id number] Implanted:Qty: 1 on 12/23/2018 by Gautam Jasso MD at OR [facility] Right: Upper Arm [employer] 09/13/20278400-090 / / [id number] Deisi Nexel Total Elbow Implanted:Qty: 1 on 12/23/2018 by Gautam Jasso MD at OR [facility] Right: Upper Arm 04/13/202300-095 -00 / / [id number] Cement Antibiotic Bone - [id number] Implanted:Qty: 1 on 12/23/2018 by Gautam Jasso MD at OR [facility] Right: Upper Arm RENY : ORTHOPAEDICS 05/13/2020 6197-9-010 / / [id number] Cement Antibiotic Bone - [id number] Implanted:Qty: 1 on 12/23/2018 by Gautam Jasso MD at OR [facility] Right: Upper Arm RENY : ORTHOPAEDICS 05/13/2020 6197-9-010 / / [id number] Stem Compr Srs Mod 6n439zx - [id number] Implanted:Qty: 1 on 12/23/2018 by Gautam Jasso MD at OR [facility] Right: Upper Arm BIOMET : TRAUMA 01/28/2027 [id number] / / [id number] Deisi Nexel Total Elbow Ulnar Component Implanted:Qty: 1 on 12/23/2018 by Gautam Jasso MD at OR [facility] Right: Upper Arm 07/14/2025 00-8400-025 -07 / / [id number] Comprehensive Srs/Nexel Distal Body Implanted:Qty: 1 on 12/23/2018 by Gautam Jasso MD at OR [facility] Right: Upper Arm 03/03/2028 [id number] / / [id number] Valve Ricky 3 Ultra 26mm - [id number] Implanted:Qty: 1 on 05/27/2022 by Jesús Weber MD at [facility]S [facility] [employer] [id number] 03/17/2023 [id number] / / Port Implant W/8f Poly Cath - [id number] Implanted:Qty: 1 on 12/29/2022 by Sudhir Lovett DO at OR [facility] Right: Chest CR BARD : PERIPHERAL VASCULAR [id number] 02/12/2024 [id number] / / [id number] documented as of this encounter Advance Directives Documents on File Type Date Recorded Patient Financial Systems Manager Expl anation Power of Crm Specialist 12/12/2018 8:46 AM Vipin viveros Power of Crm Specialist Power of Crm Specialist 12/12/2018 8:45 AM Zuleyma ferguson Power of Crm Specialist * Full Code (Latest Code Status on [...] the patient have Health Care Power of Crm Specialist? Yes, not currently available * Full Code Date Activated Date Inactivated Comments 11/21/2018 8:53 AM 11/21/2018 2:27 PM This order ref lects the patients wishes and were consensually agreed upon. Care Teams Testing Lead Relationship Specialty Start Date End Date Sachi Soni MD [address] [place] [address] PCP - General Family Medicine 05/08/24 documented as of this encounter
--- OUTSIDE RECORDS SUMMARY | 2024-07-01 14:37 | External Medical Summary | Summary of Care ---
Author Name Unknown Organization [facility] Address [address] [facility] [place] [address] Phone [phone] Care Team Providers Care Rehabilitation Teacher Name Role Phone Sachi Soni MD Primary Care Provider Reason for Visit * Reason Comments Chemotherapy Cytoxan, xgeva * Episode Based Medications (Routine) - Authorized Specialty Diagnoses / Procedures Referred By Contac t Referred To Contact Diagnoses Multiple myeloma not having achieved remission (HCC) Procedures IA DARATUMUMAB, HYALURONIDASE IA CYCLOPHOSPHAMIDE 100 MG INJ IA INJ, CYCLOPHOSPHAMIDE, NOS Jorge Allen MD [address] [place] [address] Anc Hem/Onc [facility] DEPT CLOSED - 09/27/23 [address] [place] [address] Referral ID Status Reason Start Date Expiration Date V isits Requested Visits Authorized [id number] Authorized 07/23/2022 11/13/2099 999 99 Encounter Details Date Type Department Care Team (Latest Contact Info) Description 05/18/2024 12:00 PM EDT Hem/Onc Treatment Hematology/Oncolog y Treatment, [place] [address] [place] [address] Ritu, [...] day. 30 Tab 12/25/2018 Active nystatin (NYSTOP) 680200 UNIT/GM powder Apply topically to affected area [...] Medical Devices Implanted Type Area Wind Turbine Controls Engineer Device Identifier Shelf Expiration Date Model / Serial / Lot Screw Elbow Humeral Total - [id number] Implanted:Qty: 1 on 12/23/2018 by Gautam Jasso MD at OR [facility] Right: Upper Arm [employer] 09/13/202700-090 -00 / / [id number] Deisi Nexel Total Elbow Implanted:Qty: 1 on 12/23/2018 by Gautam Jasso MD at OR [facility] Right: Upper Arm 04/13/202300-095 -00 / / [id number] Cement Antibiotic Bone - [id number] Implanted:Qty: 1 on 12/23/2018 by Gautam Jasso MD at OR [facility] Right: Upper Arm RENY : ORTHOPAEDICS 05/13/2020 6197-9-010 / / [id number] Cement Antibiotic Bone - [id number] Implanted:Qty: 1 on 12/23/2018 by Gautam Jasso MD at OR [facility] Right: Upper Arm RENY : ORTHOPAEDICS 05/13/2020 6197-9-010 / / [id number] Stem Compr Srs Mod 0t109yp - [id number] Implanted:Qty: 1 on 12/23/2018 by Gautam Jasso MD at OR [facility] Right: Upper Arm BIOMET : TRAUMA 01/28/2027 [id number] / / [id number] Deisi Nexel Total Elbow Ulnar Component Implanted:Qty: 1 on 12/23/2018 by Gautam Jasso MD at OR [facility] Right: Upper Arm 07/14/2025 00-8400-025 -07 / / [id number] Comprehensive Srs/Nexel Distal Body Implanted:Qty: 1 on 12/23/2018 by Gautam Jasso MD at OR [facility] Right: Upper Arm 03/03/2028 [id number] / / [id number] Valve Ricky 3 Ultra 26mm - [id number] Implanted:Qty: 1 on 05/27/2022 by Jesús Weber MD at [facility]ARD[facility] [employer] [id number] 03/17/2023 [id number] / / Port Implant W/8f Poly Cath - [id number] Implanted:Qty: 1 on 12/29/2022 by Sudhir Lovett DO at OR [facility] Right: Chest CR BARD : PERIPHERAL VASCULAR [id number] 02/12/2024 [id number] / / [id number] documented as of this encounter Visit Diagnoses [...] Documents on File Type Date Recorded Patient Seaman Officer Expl anation Power of Airways Operations Specialist 12/12/2018 8:46 AM Vipin viveros Power of Airways Operations Specialist Power of Airways Operations Specialist 12/12/2018 8:45 AM Zuleyma ferguson Power of Airways Operations Specialist * Full Code (Latest Code Status [...] the patient have Health Care Power of Airways Operations Specialist? Yes, not currently available * Full Code Date Activated Date Inactivated Comments 11/21/2018 8:53 AM 11/21/2018 2:27 PM This order ref lects the patients wishes and were consensually agreed upon. Care Teams Rehabilitation Teacher Relationship Specialty Start Date End Date Sachi Soni MD [address] [place] [facility] [place] [facility] [address] PCP - General Family Medicine 05/08/24 documented as of this encounter
--- OUTSIDE RECORDS SUMMARY | 2024-07-01 14:37 | External Medical Summary | Summary of Care ---
Author Name Unknown Organization [facility] Address [address] [facility] [place] [address] Phone [phone] Care Team Providers Care Foil Stamp Operator Name Role Phone Sachi Soni MD Primary Care Provider [phone] Reason for Visit * Reason Comments Chemotherapy Cytoxan/Darzalex Fas pro * Episode Based Medications (Routine) - Authorized Specialty Diagnoses / Procedures Referred By Contac t Referred To Contact Diagnoses Multiple myeloma not having achieved remission (HCC) Procedures HI DARATUMUMAB, HYALURONIDASE HI CYCLOPHOSPHAMIDE 100 MG INJ HI INJ, CYCLOPHOSPHAMIDE, NOS Jorge Allen MD [address] [place] [address] Anc Hem/Onc [facility] DEPT CLOSED - 09/27/23 [address] [place] [address] Referral ID Status Reason Start Date Expiration Date V isits Requested Visits Authorized [id number] Authorized 07/23/2022 11/13/2099 999 99 Encounter Details Date Type Department Care Team (Latest Contact Info) Description 05/25/2024 12:00 PM EDT Hem/Onc Treatment Hematology/Oncolog y Treatment, [place] [address] [place] [address] Ritu, Chair 3 Hem Onc Scenery [address] [place] [address] Multiple myeloma not having achieved remission (HCC)*; [...] day. 30 Tab 12/25/2018 Active nystatin (NYSTOP) 773322 UNIT/GM powder Apply topically to affected area [...] encounter Medical Devices Implanted Type Area Supervisor [employer] Device Identifier Shelf Expiration Date Model / Serial / Lot Screw Elbow Humeral Total - [id number] Implanted:Qty: 1 on 12/23/2018 by Gautam Jasso MD at OR [facility] Right: Upper Arm [employer] 09/13/202700-090 - / / [id number] Deisi Nexel Total Elbow Implanted:Qty: 1 on 12/23/2018 by Gautam Jasso MD at OR [facility] Right: Upper Arm 04/13/2023-5 - / / [id number] Cement Antibiotic Bone - [id number] Implanted:Qty: 1 on 12/23/2018 by Gautam Jasso MD at OR [facility] Right: Upper Arm RENY : ORTHOPAEDICS 05/13/2020 6197-9-010 / / [id number] Cement Antibiotic Bone - [id number] Implanted:Qty: 1 on 12/23/2018 by Gautam Jasso MD at OR [facility] Right: Upper Arm RENY : ORTHOPAEDICS 05/13/2020 6197-9-010 / / [id number] Stem Compr Srs Mod 7z405ha - [id number] Implanted:Qty: 1 on 12/23/2018 by Gautam Jasso MD at OR [facility] Right: Upper Arm BIOMET : TRAUMA 01/28/2027 [id number] / / [id number] Deisi Nexel Total Elbow Ulnar Component Implanted:Qty: 1 on 12/23/2018 by Gautam Jasso MD at OR [facility] Right: Upper Arm 07/14/2025 00-8400-025 -07 / / [id number] Comprehensive Srs/Nexel Distal Body Implanted:Qty: 1 on 12/23/2018 by Gautam Jasso MD at OR [facility] Right: Upper Arm 03/03/2028 [id number] / / [id number] Valve Ricky 3 Ultra 26mm - [id number] Implanted:Qty: 1 on 05/27/2022 by Jesús Weber MD at [facility] [employer] [id number] 03/17/2023 [id number] / / Port Implant W/8f Poly Cath - [id number] Implanted:Qty: 1 on 12/29/2022 by Sudhir Lovett DO at OR [facility] Right: Chest CR BARD : PERIPHERAL VASCULAR [id number] 02/12/2024 [id number] / / [id number] documented as of this encounter Visit Diagnoses [...] 516.2 mL/hr Daratumumab-hyaluronida se-fij (Darzalex Faspro) 1800 mg-53039 units/ 15 ml subcut inj 15 mL, [...] Documents on File Type Date Recorded Patient Double Back Operator Expl anation Power of Sock Ironer 12/12/2018 8:46 AM Vipin viveros Power of Sock Ironer Power of Sock Ironer 12/12/2018 8:45 AM Zuleyma ferguson Power of Sock Ironer * Full Code (Latest Code Status on [...] the patient have Health Care Power of Sock Ironer? Yes, not currently available * Full Code Date Activated Date Inactivated Comments 11/21/2018 8:53 AM 11/21/2018 2:27 PM This order ref lects the patients wishes and were consensually agreed upon. Care Teams Foil Stamp Operator Relationship Specialty Start Date End Date Sachi Soni MD [address] [place] [facility] [address] PCP - General Family Medicine 05/08/24 documented as of this encounter
--- OUTSIDE RECORDS SUMMARY | 2024-07-01 14:38 | External Medical Summary | Summary of Care ---
Author Name Unknown Organization [facility] Address [address] [place] [address] Phone [phone] Care Team Providers Care Assistant Golf Professional Name Role Phone Sachi Soni MD Primary Care Provider [phone] Reason for Visit * Reason Onset Date Comments Fax 06/08/2024 Dr. Allen Order Request 06/08/2024 Encounter Details Date Type Department Care Team (Late st Contact Info) Description 06/08/2024 Telephone Hematology/Oncology [facility] [place] [address] Services, Scheduling [address] [place] [address] Fax (Dr. Allen ); Order Request Allergies No known active allergiesdocumented as of this encounter (statuses as of 06/08/2024) Medications Medication Sig Dispensed Refills Start Date [...] day. 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 Chloe can be reached at [phone] with any questions. Thank you. documented in this encounter Plan of Treatment Upcoming Encounters Date Type Department Care Team (Late st Contact Info) Description 06/11/2024 2:45 PM EDT Imaging Radiology [facility] [address] [facility] [place] [address] 06/12/2024 2:15 PM EDT Office Visit Hematology/Oncology [facility] [place] [address] [place] [address] Jorge Allen MD [address] [place] [address] 06/22/2024 11:00 AM EDT Laboratory Laboratory [facility] [address] [place] [address] [place], Lab Scenery [address] [place] [address] 06/22/2024 12:00 PM EDT [facility] [address] [place] [address] Ritu, Chair 1 Hem Onc Scenery [address] [place] [address] 06/29/2024 11:00 AM EDT Laboratory Laboratory [facility] [address] [place] [address] Ritu, Lab Scenery [address] [place] [address] 06/29/2024 12:00 PM EDT Hem/Onc Treatment Hematology/Oncology Treatment, [place] [address] [place] [address] Ritu, Chair 10 Hem Onc Scenery [address] [place] [address] 07/06/2024 11:10 AM EDT Laboratory Laboratory [facility] [address] [place] [address] Ritu, Lab Scenery [address] [place] [address] 07/06/2024 11:15 AM EDT Hem/Onc Treatment Hematology/Oncology Treatment, [place] [address] [place] [address] Ritu, Chair 7 Hem Onc Scenery [address] [place] [address] 07/13/2024 11:00 AM EDT Laboratory Laboratory [address] [place] [address] [place] [address] Ritu, Lab [facility] [address] [facility] [place] [address] 07/13/2024 12:00 PM EDT Hem/Onc Treatment [facility]ology[facility]cology [facility], [place] [facility] [id number] 08/20/2024 3:30 PM EDT Office Visit Orthopaedics, [place] [address] [place] [address] Gautam Jasso MD [address] [place], [place] [id number] Health Maintenance Due Date Last Done Comments [...] this encounter Medical Devices Implanted Type Area Cut Order Hand Device Identifier Shelf Expiration Date Model / Serial / Lot Screw Elbow Humeral Total - [id number] Implanted:Qty: 1 on 12/23/2018 by Gautam Jasso MD at [place] [facility] Right: Upper Arm [employer] 09/13/20270 / / [id number] Deisi Nexel Total Elbow Implanted:Qty: 1 on 12/23/2018 by Gautam Jasso MD at OR [facility] Right: Upper Arm 04/13/2023 / / [id number] Cement Antibiotic Bone - [id number] Implanted:Qty: 1 on 12/23/2018 by Gautam Jasso MD at [place] [facility] Right: Upper Arm RENY : ORTHOPAEDICS 05/13/2020 6197-9-010 / / [id number] Cement Antibiotic Bone - [id number] Implanted:Qty: 1 on 12/23/2018 by Gautam Jasso MD at [place] [facility] Right: Upper Arm RENY : ORTHOPAEDICS 05/13/2020 6197-9-010 / / [id number] Stem Compr Srs Mod [id number] - [id number] Implanted:Qty: 1 on 12/23/2018 by Gautam Jasso MD at [place] [facility] Right: Upper Arm BIOMET : TRAUMA 01/28/2027 [id number] / / [id number] Deisi Nexel Total Elbow Ulnar Component Implanted:Qty: 1 on 12/23/2018 by Gautam Jasso MD at [place] [facility] Right: Upper Arm 07/14/202500-025 - / / [id number] Comprehensive Srs/Nexel Distal Body Implanted:Qty: 1 on 12/23/2018 by Gautam Jasso MD at OR [facility] Right: Upper Arm 03/03/2028 [id number] / / [id number] Valve Ricky 3 Ultra 26mm - [id number] Implanted:Qty: 1 on 05/27/2022 by Jesús Weber MD at [facility] [employer] [id number] 03/17/2023 [id number] / / Port Implant W/8f Poly Cath - [id number] Implanted:Qty: 1 on 12/29/2022 by Sudhir Lovett DO at OR [facility] Right: Chest CR BARD : PERIPHERAL VASCULAR [id number] 02/12/2024 [id number] / / [id number] documented as of this encounter Advance Directives Documents on File Type Date Recorded Patient Amusement Centre Manager Expl anation Power of Grounds Foreman 12/12/2018 8:46 AM Vipin viveros Power of Grounds Foreman Power of Grounds Foreman 12/12/2018 8:45 AM Zuleyma ferguson Power of Grounds Foreman * Full Code (Latest Code Status on [...] the patient have Health Care Power of Grounds Foreman? Yes, not currently available * Full Code Date Activated Date Inactivated Comments 11/21/2018 8:53 AM 11/21/2018 2:27 PM This order ref lects the patients wishes and were consensually agreed upon. Care Teams Assistant Golf Professional Relationship Specialty Start Date End Date Sachi Soni MD [address] [place] [address] PCP - General Family Medicine 05/08/24 documented as of this encounter
--- OUTSIDE RECORDS SUMMARY | 2024-07-01 14:38 | External Medical Summary | Summary of Care ---
Author Name Unknown Organization [facility] Address [address] [place] [address] Phone [phone] Care Team Providers Care Fuse Maker Name Role Phone Sachi Soni MD Primary Care Provider [phone] Reason for Visit * Reason Onset Date Comments Fax 06/08/2024 Dr. Allen Order Request 06/08/2024 Encounter Details Date Type Department Care Team (Late st Contact Info) Description 06/08/2024 Telephone Hematology/Oncology [facility] [address] [facility] [address] Services, Scheduling [address] [place] [address] Fax (Dr. Allen ); Order Request Allergies [...] day. 30 Tab 12/25/2018 Active nystatin (NYSTOP) 043298 UNIT/GM powder Apply topically to affected area [...] encounter Miscellaneous Notes * Telephone Encounter - Oly Fernandez OSA - 06/08/2024 11:05 AM EDT Chloe with [facility] called to request a referral, the patients history and physical notes, a med list, demographics, any recent notes and a hospice order. She advised this can be faxed to [phone]. Chloe can be reached at [phone] with any questions. Thank you. documented in this encounter Plan of Treatment Upcoming Encounters Date Type Department Care Team (Late st Contact Info) Description 06/11/2024 2:45 PM EDT Imaging Radiology [address], [address] [place] [address] 06/15/2024 11:00 AM EDT Laboratory [facility] [place] [address] [place] [phone] Ritu Lab Scenery [address] [facility] [place] [address] 06/15/2024 12:00 PM EDT Hem/Onc Treatment Hematology/Oncology Treatment, [place] [address] [place] [phone] Ritu, Chair 8 Hem Onc Scenery [address] [place] [address] 06/22/2024 11:00 AM EDT Laboratory Laboratory [facility] [address] [place] [address] Park, Lab Scenery [address] [place] [address] 06/22/2024 12:00 PM EDT [facility] 200 [facility] [place] [address] Ritu, Chair 1 Hem Onc Scenery [address] [place] [address] 06/29/2024 11:00 AM EDT Laboratory Laboratory [facility] [place] [address] [place] [address] Ritu, Lab Scenery [address] [place] [address] 06/29/2024 12:00 PM EDT Hem/Onc Treatment Hematology/Oncology Treatment, [place] [address] [facility] [place] [address] Ritu, Chair 10 Hem Onc Scenery [address] [place] [address] 07/06/2024 11:10 AM EDT Laboratory Laboratory [facility] [place] [address] [place] [address] Ritu, Lab Scenery [address] [place] [address] 07/06/2024 11:15 AM EDT Hem/Onc Treatment Hematology/Oncology Treatment, [place] [address] [facility] [place] [address] Ritu, Chair 7 Hem Onc Scenery [address] [place] [address] 07/13/2024 11:00 AM EDT Laboratory Laboratory [facility] [place] [address] [place] [address] Park, Lab Scenery 200 [place] [address] 07/13/2024 12:00 PM EDT Hem/Onc Treatment Hematology/Oncology Treatment, [place] [address] [place] [address] 08/20/2024 3:30 PM EDT Office Visit Orthopaedics, [place] [address] [place] [address] Gautam Jasso MD [address] [place] [address] Health Maintenance Due Date Last Done Comments [...] this encounter Medical Devices Implanted Type Area Oil Gas And Pipe Tester Device Identifier Shelf Expiration Date Model / Serial / Lot Screw Elbow Humeral Total - [id number] Implanted:Qty: 1 on 12/23/2018 by Gautam Jasso MD at OR [facility] Right: Upper Arm [employer] 09/13/20278400-090 -00 / / [id number] Deisi Nexel Total Elbow Implanted:Qty: 1 on 12/23/2018 by Gautam Jasso MD at OR [facility] Right: Upper Arm 04/13/2023-8400-095 -00 / / [id number] Cement Antibiotic Bone - [id number] Implanted:Qty: 1 on 12/23/2018 by Gautam Jasso MD at OR [facility] Right: Upper Arm RENY : ORTHOPAEDICS 05/13/2020 6197-9-010 / / [id number] Cement Antibiotic Bone - [id number] Implanted:Qty: 1 on 12/23/2018 by Gautam Jasso MD at OR [facility] Right: Upper Arm ERNY : ORTHOPAEDICS 05/13/2020 6197-9-010 / / [id number] Stem Compr Srs Mod 2d169sn - [id number] Implanted:Qty: 1 on 12/23/2018 by Gautam Jasso MD at OR [facility] Right: Upper Arm BIOMET : TRAUMA 01/28/2027 [id number] / / [id number] Deisi Nexel Total Elbow Ulnar Component Implanted:Qty: 1 on 12/23/2018 by Gautam Jasso MD at OR [facility] Right: Upper Arm 07/14/202500-025 -07 / / [id number] Comprehensive Srs/Nexel Distal Body Implanted:Qty: 1 on 12/23/2018 by Gautam Jasso MD at OR [facility] Right: Upper Arm 03/03/2028 [id number] / / [id number] Valve Ricky 3 Ultra 26mm - [id number] Implanted:Qty: 1 on 05/27/2022 by Jesús Weber MD at CARDIAC LABS [facility] [employer]ES [id number] 03/17/2023 [id number] / / Port Implant W/8f Poly Cath - [id number] Implanted:Qty: 1 on 12/29/2022 by Sudhir Lovett DO at OR [facility] Right: Chest CR BARD : PERIPHERAL VASCULAR [id number] 02/12/2024 [id number] / / [id number] documented as of this encounter Advance Directives Documents on File Type Date Recorded Patient Optometry Doctor Expl anation Power of Security System Technician 12/12/2018 8:46 AM Vipin viveros Power of Security System Technician Power of Security System Technician 12/12/2018 8:45 AM Zuleyma ferguson Power of Security System Technician * Full Code (Latest Code Status [...] the patient have Health Care Power of Security System Technician? Yes, not currently available * Full Code Date Activated Date Inactivated Comments 11/21/2018 8:53 AM 11/21/2018 2:27 PM This order ref lects the patients wishes and were consensually agreed upon. Care Teams Fuse Maker Relationship Specialty Start Date End Date Sachi Soni MD [address] [place] [facility] [address] PCP - General Family Medicine 05/08/24 documented as of this encounter
--- OUTSIDE RECORDS SUMMARY | 2024-07-01 14:38 | External Medical Summary | Summary of Care ---
Author Name Unknown Organization [facility] Address [address] [place] [address] Phone [phone] Care Team Providers Care Global Cto Name Role Phone Sachi Soni MD Primary Care Provider [phone] Reason for Visit * Reason Onset Date Comments Appointment 05/31/2024 Dr. Allen Encounter Details Date Type Department Care Team (Late st Contact Info) Description 05/31/2024 Telephone Hematology/Oncology [facility] [place] [address] [place] [address] Services, Scheduling [address] [place] [address] Appointment (Dr. Allen ) Allergies No known active allergiesdocumented as of this encounter (statuses as of 06/01/2024) Medications Medication Sig Dispensed Refills Start Date [...] day. 30 Tab 12/25/2018 Active nystatin (NYSTOP) 638740 UNIT/GM powder Apply topically to affected area [...] as needed for Pain, Breakthrough. 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 Thank you. * Telephone Encounter - Adalgisa Patel OSA - 05/31/2024 3:48 PM EDT Pt daughter Meghana called requesting an earlier appt for treatment on 07/06/24 at 12:30pm. She stated since treatment will be for 4hrs the transportation service wouldn't be available by the time treatment is over. Meghana would like to kade pt at 11:15am if possible. Please advise. documented in this encounter Plan of Treatment Upcoming Encounters Date Type Department Care Team (Late st Contact Info) Description 06/01/2024 12:00 PM EDT Hem/Onc Treatment Hematology/Oncology Treatment, [place] [address] [place] [address] Ritu, Chair 7 Hem Onc Scenery [address] [place], [place] [address] 06/05/2024 11:45 AM EDT Imaging Radiology [address], [place] [address] [place] [address] 06/08/2024 11:00 AM EDT Hem/Onc Treatment Hematology/Oncology Treatment, [place] 200 [facility], [place] [address] Ritu, Chair 1 Hem Onc Scenery [address] [place], [place] [address] 06/15/2024 11:00 AM EDT Laboratory Laboratory [facility] [place] [address] [place], [place] [address] Ritu, Lab Scenery [address] [place], [place] [address] 06/15/2024 12:00 PM EDT Hem/Onc Treatment Hematology/Oncology Treatment, [place] [address] [facility], [place] [address] Ritu, Chair 8 Hem Onc Scenery [address] [place], [place] [address] 06/22/2024 11:00 AM EDT Laboratory Laboratory [facility] [place] [address] [place], [place] [address] Ritu, Lab Scenery [address] [place] [address] 06/22/2024 12:00 PM EDT Hem/Onc Treatment Hematology/Oncology Treatment, [place] [address] [place] [address] Ritu, Chair 1 Hem Onc Scenery [address] [place], [place] [address] 06/29/2024 11:00 AM EDT Laboratory Laboratory [facility] [place] [address] [place] [address] Ritu, Lab Scenery [address] [place] [address] 06/29/2024 12:00 PM EDT Hem/Onc Treatment Hematology/Oncology Treatment, [place] [address] [facility], [place] [address] Ritu, Chair 10 Hem Onc Scenery [address] [place], [place] [address] 07/06/2024 11:10 AM EDT Laboratory Laboratory [facility] [place] [address] [place], [place] [address] Ritu, Lab Scenery [address] [place], [place] [address] 07/06/2024 11:15 AM EDT Hem/Onc Treatment Hematology/Oncology Treatment, [place] [address] [facility], [place] [address] Ritu, Chair 7 Hem Onc Scenery [address] [place], [place] [address] 07/13/2024 11:00 AM EDT Laboratory Laboratory [facility] [place] [address] [place], [place] [address] Ritu, Lab Scenery [address] [place] [address] 07/13/2024 12:00 PM EDT Hem/Onc Treatment Hematology/Oncology Treatment, [place] [address] [facility], [place] [address] 08/20/2024 3:30 PM EDT Office Visit Orthopaedics, [place] [address] [place] [address] Gautam Jasso MD [address] [place] [address] Health Maintenance Due Date Last Done Comments DXA Scan 1940 Depression Screening 1952 Diabetic Eye Exam 1958 Diabetic Foot Exam 1958 DTaP,Tdap,and Td Vaccines (1 - Tdap) 1959 Zoster Vaccines (1 of 2) 1959 COVID-19 Vaccine (2 - Pfizer risk series) 06/29/2021 06/08/2021, 06/08/2021 Albumin/Creatinine Ratio 12/11/2021 12/11/2020 HbA1c 04/19/2024 10/19/2023, 11/15, 06/13/2020, Additional history exists Influenza Vaccine (FLU shot) (#1) 2024 09/04/2016 GFR 05/30/2025 05/30/2024, 05/14, 05/16/2024, Additional history exists Pneumococcal Vaccine: 65+ Years [...] this encounter Medical Devices Implanted Type Area Banking Pin Adjuster Device Identifier Shelf Expiration Date Model / Serial / Lot Screw Elbow Humeral Total - [id number] Implanted:Qty: 1 on 12/23/2018 by Gautam Jasso MD at OR [facility] Right: Upper Arm [employer] 09/13/20278400-090 -00 / / [id number] Deisi Nexel Total Elbow Implanted:Qty: 1 on 12/23/2018 by Gautam Jasso MD at OR [facility] Right: Upper Arm 04/13/20238400-095 -00 / / [id number] Cement Antibiotic Bone - [id number] Implanted:Qty: 1 on 12/23/2018 by Gautam Jasso MD at OR [facility] Right: Upper Arm RENY : ORTHOPAEDICS 05/13/2020 6197-9-010 / / [id number] Cement Antibiotic Bone - [id number] Implanted:Qty: 1 on 12/23/2018 by Gautam Jasso MD at OR [facility] Right: Upper Arm RENY : ORTHOPAEDICS 05/13/2020 6197-9-010 / / [id number] Stem Compr Srs Mod 3l202cf - [id number] Implanted:Qty: 1 on 12/23/2018 by Gautam Jasso MD at OR [facility] Right: Upper Arm BIOMET : TRAUMA 01/28/2027 [id number] / / [id number] Deisi Nexel Total Elbow Ulnar Component Implanted:Qty: 1 on 12/23/2018 by Gautam Jasso MD at OR [facility] Right: Upper Arm 07/14/2025 00-8400-025 -07 / / [id number] Comprehensive Srs/Nexel Distal Body Implanted:Qty: 1 on 12/23/2018 by Gautam Jasso MD at OR [facility] Right: Upper Arm 03/03/2028 [id number] / / [id number] Valve Ricky 3 Ultra 26mm - [id number] Implanted:Qty: 1 on 05/27/2022 by Jesús Weber MD at CARDIAC LABS [facility] [employer] [id number] 03/17/2023 [id number] / / Port Implant W/8f Poly Cath - [id number] Implanted:Qty: 1 on 12/29/2022 by Sudhir Lovett DO at OR [facility] Right: Chest CR BARD : PERIPHERAL VASCULAR [id number] 02/12/2024 [id number] / / [id number] documented as of this encounter Advance Directives Documents on File Type Date Recorded Patient Floral Manager Expl anation Power of Director Appointment 12/12/2018 8:46 AM Vipin viveros Power of Director Appointment Power of Director Appointment 12/12/2018 8:45 AM Zuleyma ferguson Power of Director Appointment * Full Code (Latest Code Status on [...] the patient have Health Care Power of Director Appointment? Yes, not currently available * Full Code Date Activated Date Inactivated Comments 11/21/2018 8:53 AM 11/21/2018 2:27 PM This order ref lects the patients wishes and were consensually agreed upon. Care Teams Global Cto Relationship Specialty Start Date End Date Sachi Soni MD [address] [place] [facility] [place] [address] PCP - General Family Medicine 05/08/24 documented as of this encounter
--- OUTSIDE RECORDS SUMMARY | 2024-07-01 14:38 | External Medical Summary ---
Author Name Unknown Address Unknown Organization K01:[facility] [address] [place] [address] Laboratory Report Ordering Provider Test Date Status WOOD CANTU 06/07/2024 11:14:54 Final Observation Date Value Abnormality Reference (Units ) Status [place] light chains, Free, Serum 06/07/2024 11:14:54 15.15 3.30-19.40 (mg/L) Final Lambda light chains, free, Serum 06/07/2024 11:14:54 1.38 Below low normal 5.71-26.30 (mg/L) Final KAPPA LAMBDA FLC RATIO 06/07/2024 11:14:54 10.98 Above high normal 0.26-1.65 Final Performing Location [facility] [place] [address]
--- OUTSIDE RECORDS SUMMARY | 2024-07-01 14:38 | External Medical Summary | Summary of Care ---
Author Name Unknown Organization [facility] Address [address] [place] [address] Phone [phone] Care Team Providers Care Key Ringer Name Role Phone Sachi Soni MD Primary Care Provider Reason for Visit * Reason Onset Date Comments Fax 06/08/2024 Dr. Allen Order Request 06/08/2024 Encounter Details Date Type Department Care Team (Late st Contact Info) Description 06/08/2024 Telephone Hematology/Oncology [facility] [address] [facility] [address] Services, Scheduling [address] [place] [address] Fax (Dr. Allen ); Order Request Allergies [...] day. 30 Tab 12/25/2018 Active nystatin (NYSTOP) 988738 UNIT/GM powder Apply topically to affected area [...] She advised this can be faxed to [phone]. Chloe can be reached at [phone] with any questions. Thank you. documented in this encounter Plan of Treatment Upcoming Encounters Date Type Department Care Team (Late st Contact Info) Description 06/11/2024 2:45 PM EDT Imaging Radiology [facility] 1st [facility], [place] [address] [place] [address] 06/12/2024 2:15 PM EDT Office Visit Hematology/Oncology [facility] [place] [address] [place] [address] Jorge Allen MD [address] [place] [address] 06/22/2024 11:00 AM EDT Laboratory Laboratory [facility] [place] [address] [place] [address] Ritu, Lab Scenery [address] [facility] [place] [address] 06/22/2024 12:00 PM EDT Hem/Onc Treatment Hematology[facility]cology [facility], [place] [address] [facility] [address] Ritu, Chair 1 Hem Onc Scenery [address] [place] [address] 06/29/2024 11:00 AM EDT Laboratory Laboratory [facility] [place] [address] [place] [address] Ritu, Lab Scenery [address] [facility] [place], [place] [address] 06/29/2024 12:00 PM EDT Hem/Onc Treatment Hematology/Oncology Treatment, [place] [address] [place] [address] Ritu, Chair 10 Hem Onc Scenery [address] [place] [address] 07/06/2024 11:10 AM EDT Laboratory Laboratory [facility] Ritu [place] [address] [place] [address] Ritu, Lab Scenery [address] [facility] [place] [address] 07/06/2024 11:15 AM EDT Hem/Onc Treatment Hematology/Oncology Treatment, [place] [address] [place] [address] Ritu, Chair 7 [address] [place], [place] [address] 07/13/2024 11:00 AM EDT Laboratory Laboratory [facility] [place] 200 [facility] [place], [place] [address] Ritu, Lab [facility] 200 [facility] [place] [address] 07/13/2024 12:00 PM EDT Hem/Onc Treatment Hematology/Oncology Treatment, [place] [address] [facility], [place] [address] 08/20/2024 3:30 PM EDT Office Visit Orthopaedics, [place] [address] [place] [address] Gautam Jasso MD [address] [place] [address] Health Maintenance Due Date Last Done Comments [...] this encounter Medical Devices Implanted Type Area Engine Lathe Set Up Operator Tool Device Identifier Shelf Expiration Date Model / Serial / Lot Screw Elbow Humeral Total - [id number] Implanted:Qty: 1 on 12/23/2018 by Gautam Jasso MD at [place] [facility] Right: Upper Arm [employer] 09/13/2027 - / / [id number] Deisi Nexel Total Elbow Implanted:Qty: 1 on 12/23/2018 by Gautam Jasso MD at OR [facility] Right: Upper Arm 04/13/2023 / / [id number] Cement Antibiotic Bone - [id number] Implanted:Qty: 1 on 12/23/2018 by Gautam Jasso MD at OR [facility] Right: Upper Arm RENY : ORTHOPAEDICS 05/13/2020 6197-9-010 / / [id number] Cement Antibiotic Bone - [id number] Implanted:Qty: 1 on 12/23/2018 by Gautam Jasso MD at OR [facility] Right: Upper Arm RENY : ORTHOPAEDICS 05/13/2020 6197-9-010 / / [id number] Stem Compr Srs Mod [id number] - [id number] Implanted:Qty: 1 on 12/23/2018 by Gautam Jasso MD at OR [facility] Right: Upper Arm BIOMET : TRAUMA 01/28/2027 [id number] / / [id number] Deisi Nexel Total Elbow Ulnar Component Implanted:Qty: 1 on 12/23/2018 by Gautam Jasso MD at OR [facility] Right: Upper Arm 07/14/2025-025 -07 / / [id number] Comprehensive Srs/Nexel Distal Body Implanted:Qty: 1 on 12/23/2018 by Gautam Jasso MD at OR [facility] Right: Upper Arm 03/03/2028 [id number] / / [id number] Valve Ricky 3 Ultra 26mm - [id number] Implanted:Qty: 1 on 05/27/2022 by Jesús Weber MD at CARDIAC LABS [facility] [employer] [id number] 03/17/2023 [id number] / / Port Implant W/8f Poly Cath - [id number] Implanted:Qty: 1 on 12/29/2022 by Sudhir Lovett, at OR [facility] Right: Chest CR BARD : PERIPHERAL VASCULAR [id number] 02/12/2024 [id number] / / [id number] documented as of this encounter Advance Directives Documents on File Type Date Recorded Patient Assembly Machine Tender Expl anation Power of Senior Operations Manager 12/12/2018 8:46 AM Vipin hcare Power of Senior Operations Manager Power of Senior Operations Manager 12/12/2018 8:45 AM Zuleyma ferguson Power of Senior Operations Manager * Full Code (Latest Code Status on [...] patient have Health Care Power of Senior Operations Manager? Yes, not currently available * Full Code Date Activated Date Inactivated Comments 11/21/2018 8:53 AM 11/21/2018 2:27 PM This order ref lects the patients wishes and were consensually agreed upon. Care Teams Key Ringer Relationship Specialty Start Date End Date Sachi Soni MD [address] [place] [address] PCP - General Family Medicine 05/08/24 documented as of this encounter
--- OUTSIDE RECORDS SUMMARY | 2024-07-01 14:38 | External Medical Summary | Summary of Care ---
Author Name Unknown Organization [facility] Address [address] [place] [address] Phone [phone] Care Team Providers Care Surface Grinder Tender Name Role Phone Sachi Soni MD Primary Care Provider [phone] Reason for Referral * Precert (Within 10 days (routine)) - Authorized Specialty Diagnoses / Procedures Referred By Contac t Referred To Contact Radiology Diagnoses Multiple myeloma not having achieved remission (HCC) Procedures PET CT WHOLE BODY FDG Jorge Allen MD 200 [facility] [place] [address] Referral ID Status Reason Start Date Expiration Date V isits Requested Visits Authorized [id number] Authorized 05/28/2024 999 999 Reason for Visit * Reason Onset Date Comments Advice 05/25/2024 Alejandro Encounter Details Date Type Department Care Team (Late st Contact Info) Description 05/25/2024 Telephone Hematology/Oncology [facility] [place] [address] [place] [address] [phone] Services, Scheduling [address] [place] [address] Advice (Alejandro ) Allergies No known active allergiesdocumented as of this encounter (statuses as of 05/29/2024) Medications Medication Sig Dispensed Refills Start Date [...] day. 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 Also reinforced oxycodone instructions withpatient. * Telephone Encounter - Jorge Allen MD - 05/28/2024 9:02 AM EDT Because of increasing shoulder pain and right elbow pain, I would like to proceed with PET-CT scan. She can take oxycodone 5 mg, 1 to 2 tablets every 6 hourly as needed for the management. * Telephone Encounter - Merrick Gross RN - 05/25/2024 11:[address] Allen/Mariana- please advise on when PET CT should be repeated. Last PET CT was completed 12/21/23. * Telephone Encounter - GloseAshley howard OSA - 05/25/2024 8:34 AM EDT Patient daughter is letting office know that patient got xray done by orthopedics last week and that they are available for viewing. Patient daughter is also inquiring about Pet scan. It was talked about at last appointment, but no orders were placed. Patient daughter is also wondering if patient could take an extra PRN oxy when pain is increased. documented in this encounter Plan of Treatment Upcoming Encounters Date Type Department Care Team (Late st Contact Info) Description 06/01/2024 12:00 PM EDT Hem/Onc Treatment [facility]ematology[facility] [place] [facility] [phone] Ritu, Chair 7 Hem Onc [facility] 200 [facility] [place] [address] 06/05/2024 11:45 AM EDT Imaging Radiology [address], [place] 132 [facility] [place] [address] 06/08/2024 11:00 AM EDT Hem/Onc Treatment Hematology/Oncology [address], [address] [phone] Ritu, Chair 1 Hem Onc Scenery [address] [place] [address] 06/15/2024 11:00 AM EDT Laboratory Laboratory [facility] [place] [address] [place] [phone] Ritu, Lab [facility] [address] [place] [address] 06/15/2024 12:00 PM EDT Hem/Onc Treatment Hematology/Oncology [facility], [place] [facility] [phone] Ritu, Chair 6 Hem Onc Scenery [address] [place] [address] 06/22/2024 11:00 AM EDT Laboratory Laboratory [facility] [address] [place] [address] Ritu, Lab Scenery [address] [place] [address] 06/22/2024 12:00 PM EDT [facility] 200 [place] [address] Ritu, Chair 1 Hem Onc Scenery [address] [place] [address] 06/29/2024 11:00 AM EDT Laboratory Laboratory [facility] [place] [address] [place], [place] [address] Ritu, Lab Scenery [address] [place] [address] 06/29/2024 12:00 PM EDT [facility] 200 [place] [address] Ritu, Chair 10 Hem Onc Scenery [address] [place] [address] 07/06/2024 11:10 AM EDT Laboratory Laboratory [facility] Ritu [place] [address] [place] [address] Ritu, Lab Scenery [address] [place] [address] 07/06/2024 12:30 PM EDT Hem/Onc Treatment Hematology/Oncology Treatment, [place] 200 [place] [address] Ritu, Chair 4 Hem Onc Scenery [address] [place] [address] 07/13/2024 11:00 AM EDT Laboratory Laboratory [facility] [place] [address] [place] [address] Matt Chaney [facility] 200 [facility] [place] [address] 07/13/2024 11:30 AM EDT Office Visit Hematology/Oncology [facility] 200 [facility] [phone] Mariana Florez CRNP 400 [place] [address] 07/13/2024 12:00 PM EDT Hem/Onc Treatment Hematology/Oncology Treatment, [place] 200 [facility], [place] [phone] 08/20/2024 3:30 PM EDT [facility] [address] [place] [address] Gautam Jasso MD [address] [place] [address] Scheduled Orders Name Type Priority Associated Diagnoses Orde r Schedule PET CT WHOLE BODY FDG Medical Imaging Routine Multiple myeloma not having achieved remission (HCC) Ordered: 05/28/2024 Health Maintenance Due Date Last Done Comments [...] Vaccine (FLU shot) (#1) 2024 09/04/2016 GFR 05/24/2025 05/24/2024, 07/0 01/2024, 05/11/2024, Additional history exists Pneumococcal Vaccine: 65+ Years [...] this encounter Medical Devices Implanted Type Area Strategic Analyst Device Identifier Shelf Expiration Date Model / Serial / Lot Screw Elbow Humeral Total - [id number] Implanted:Qty: 1 on 12/23/2018 by Gautam Jasso MD at OR [facility] Right: Upper Arm [employer] 09/13/2027-0 - / / [id number] Deisi Nexel Total Elbow Implanted:Qty: 1 on 12/23/2018 by Gautam Jasso MD at OR [facility] Right: Upper Arm 04/13/2023 - / / [id number] Cement Antibiotic Bone - [id number] Implanted:Qty: 1 on 12/23/2018 by Gautam Jasso MD at OR [facility] Right: Upper Arm RENY : ORTHOPAEDICS 05/13/2020 [id number] / / [id number] Cement Antibiotic Bone - [id number] Implanted:Qty: 1 on 12/23/2018 by Gautam Jasso MD at OR [facility] Right: Upper Arm RENY : ORTHOPAEDICS 05/13/2020 6197-9-010 / / [id number] Stem Compr Srs Mod [id number] - [id number] Implanted:Qty: 1 on 12/23/2018 by Gautam Jasso MD at OR [facility] Right: Upper Arm BIOMET : TRAUMA 01/28/2027 [id number] / / [id number] Deisi Nexel Total Elbow Ulnar Component Implanted:Qty: 1 on 12/23/2018 by Gautam Jasso MD at OR [facility] Right: Upper Arm 07/14/2025-025 -07 / / [id number] Comprehensive Srs/Nexel Distal Body Implanted:Qty: 1 on 12/23/2018 by Gautam Jasso MD at OR [facility] Right: Upper Arm 03/03/2028 [id number] / / [id number] Valve Ricky 3 Ultra 26mm - [id number] Implanted:Qty: 1 on 05/27/2022 by Jesús Weber MD at CARDIAC LABS [facility] [employer] [id number] 03/17/2023 [id number] / / Port Implant W/8f Poly Cath - [id number] Implanted:Qty: 1 on 12/29/2022 by Sudhir Lovett, at OR [facility] Right: Chest CR BARD : PERIPHERAL VASCULAR [id number] 02/12/2024 [id number] / / [id number] documented as of this encounter Visit Diagnoses Diagnosis Multiple myeloma not having achieved remission (HCC)- Primary Multiple myeloma, without mention of having achieved remission documented in this encounter Advance Directives Documents on File Type Date Recorded Patient Field Organizer Expl anation Power of Social Service Manager 12/12/2018 8:46 AM Healt hcare Power of Social Service Manager Power of Social Service Manager 12/12/2018 8:45 AM Zuleyma ferguson Power of Social Service Manager * Full Code (Latest Code Status [...] the patient have Health Care Power of Social Service Manager? Yes, not currently available * Full Code Date Activated Date Inactivated Comments 11/21/2018 8:53 AM 11/21/2018 2:27 PM This order ref lects the patients wishes and were consensually agreed upon. Care Teams Surface Grinder Tender Relationship Specialty Start Date End Date Sachi Soni MD [address] [place] [address] PCP - General Family Medicine 05/08/24 documented as of this encounter
--- OUTSIDE RECORDS SUMMARY | 2024-07-01 14:38 | External Medical Summary ---
Author Name Unknown Address Unknown Organization K01:[facility] [place] [address] [facility] [address] Laboratory Report Ordering Provider Test Date Status WOOD CANTU 06/07/2024 11:14:54 Final Observation Date Value Abnormality Reference (Units ) Status WBC, Total 06/07/2024 11:14:54 2.79 Below low normal 4. 00-10.80 (K/uL) Final RBC 06/07/2024 11:14:54 3.36 3.85-5.15 (M/uL) Final Hemoglobin 06/07/2024 11:14:54 10.0 Below low normal 12 .0-15.3 (g/dL) Final HCT 06/07/2024 11:14:54 32.4 Below low normal 36. 0-45.2 (%) Final MCV 06/07/2024 11:14:54 96.4 81.5-97.5 (fL) Final MCH 06/07/2024 11:14:54 29.8 27.0-34.0 (pg) Final MCHC 06/07/2024 11:14:54 30.9 32.0-36.0 (g/dL) Final RDW 06/07/2024 11:14:54 18.7 11.5-15.5 (%) Final Platelets 06/07/2024 11:14:54 91 Below low normal 140 -400 (K/uL) Final MPV 06/07/2024 11:14:54 Final No result - abnormal platele t distribution. Nucleated erythrocytes/100 l eukocytes [Ratio] in Blood by Automated count 06/07/2024 11:14:54 0 <=0 (/100 WBCs) Final Performing Location [facility] [place] [facility] [place] [address]
--- OUTSIDE RECORDS SUMMARY | 2024-07-01 14:38 | External Medical Summary ---
Author Name Unknown Address Unknown Organization K01[place] [place] [address] [place] [address] Laboratory Report Ordering Provider Test Date Status WOOD CANTU 05/30/2024 16:05:07 Final Observation Date Value Abnormality Reference (Units ) Status BUN 05/30/2024 16:05:07 16 6-20 (mg/dL) Final Creatinine 05/30/2024 16:05:07 0.8 0.5-1.0 (mg/dL) Final Glomerular filtration rate/1.73 sq M.predicted [Volume Rate/Area] in Serum, Plasma or Blood by Creatinine-based formula (CKD-EPI) 05/30/2024 16:05:07 72 >=60 (mL/min) Final eGFR is calculated based on the CKD-EPI 2020 equation. Sodium 05/30/2024 16:05:07 141 135-146 (m mol/L) Final Potassium 05/30/2024 16:05:07 4.3 3.5-5.1 (m mol/L) Final Cl 05/30/2024 16:05:07 105 98-107 (mm ol/L) Final CO2 05/30/2024 16:05:07 26 22-32 (mmo l/L) Final Anion gap 05/30/2024 16:05:07 10 7-15 (mmol /L) Final Glucose 05/30/2024 16:05:07 125 Above high normal 70 -120 (mg/dL) Final Albumin 05/30/2024 16:05:07 3.7 Below low normal 3.8 -5.0 (g/dL) Final AST (Aspartate aminotransferase) 05/30/2024 16:05:07 21 10-35 (U/L) Fin al Alk Phos 05/30/2024 16:05:07 61 35-130 (U/ L) Final Bilirubin, Total 05/30/2024 16:05:07 0.4 <=1 .2 (mg/dL) Final Calcium 05/30/2024 16:05:07 8.9 8.4-10.2 ( mg/dL) Final Protein 05/30/2024 16:05:07 5.9 Below low normal 6.0 -8.3 (g/dL) Final ALT (Alanine aminotransferase) 05/30/2024 16:05:07 11 10-35 (U/L) Abisai mcconnell Performing Location [facility] [place] [address] [facility] [address]
--- OUTSIDE RECORDS SUMMARY | 2024-07-01 14:38 | External Medical Summary ---
Author Name Unknown Address Unknown Organization K01[place] [place] [address] [facility] [place] [address] Laboratory Report Ordering Provider Test Date Status WOOD CANTU 06/07/2024 11:14:54 Final Observation Date Value Abnormality Reference (Units) Status PARAPROTEIN NORMAL/ABNORMAL 11:14:54 Abnormal Abnormal Normal Final Protein 11:14:54 5.8 Below low normal 6.0-8.3 (g/dL) Final Albumin/Protein.tota l [Pure mass fraction] in Serum or Plasma by Electrophoresis 11:14:54 3.03 Below low normal 3.30-4.40 (g/dL) Final Alpha 1 globulin/Protein.tot al [Pure mass fraction] in Serum or Plasma by Electrophoresis 11:14:54 0.24 0.10-0.30 (g/dL) Final Alpha 2 globulin/Protein.tot al [Pure mass fraction] in Serum or Plasma by Electrophoresis 11:14:54 0.92 0.60-1.00 (g/dL) Final Beta globulin/Protein.tot al [Pure mass fraction] in Serum or Plasma by Electrophoresis 11:14:54 1.03 0.80-1.30 (g/dL) Final Gamma globulin/Protein.tot al [Pure mass fraction] in Serum or Plasma by Electrophoresis 11:14:54 0.59 Below low normal 0.70-1.70 (g/dL) Final Protein Fractions [Interpretation] in Serum or Plasma by Electrophoresis Narrative 11:14:54 Abnormal, 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 Unable to reliably identify or accurately quantify the paraprotein due to its migration in the beta region. Please order serum free light chains, beta-2 Final Protein Fractions [Interpretation] in Serum or Plasma by Electrophoresis Narrative 4 11:14:54 microglobulin, and the quantitative immunoglobulins for disease monitoring. There is a small abnormality in IgM kappa. ;See serum immunofixation results. from 04/20/2024. Final Performing Location [facility] [place] [address] [facility] [address]
--- OUTSIDE RECORDS SUMMARY | 2024-07-01 14:38 | External Medical Summary ---
Author Name Unknown Address Unknown Organization K01:[facility] [place] [address] [place] [address] Laboratory Report Ordering Provider Test Date Status WOOD CANTU 06/07/2024 11:14:54 Final Observation Date Value Abnormality Reference (Units ) Status Acanthocytes [Presence] in Blood by Light microscopy 06/07/2024 11:14:54 Moderate Abnormal None Seen Final Ovalocytes [Presence] in Blood by Light microscopy 06/07/2024 11:14:54 Moderate Abnormal None Seen Final Schistocytes 06/07/2024 11:14:54 Moderate Abnormal None Seen Final Performing Location [facility] [place] [address] [place] [address]
--- OUTSIDE RECORDS SUMMARY | 2024-07-01 14:38 | External Medical Summary | Summary of Care ---
Author Name Unknown Organization [facility] Address [address] [facility] [place] [address] Phone [phone] Care Team Providers Care Cyber Legal Advisor Name Role Phone Sachi Soni MD Primary Care Provider Reason for Visit * Reason Onset Date Comments Medication Refill 06/04/2024 Encounter Details Date Type Department Care Team (Late st Contact Info) Description 06/04/2024 Refill [facility] Hematology and Oncology [address] [place] [address] Cate Graham MD [address] [place], [place] [phone] Multiple myeloma not having achieved remission (HCC); Cancer related pain Allergies No known active allergiesdocumented as of this encounter (statuses as of 06/04/2024) Medications Medication Sig Dispensed Refills Start Date [...] day. 30 Tab 12/25/2018 Active nystatin (NYSTOP) 436475 UNIT/GM powder Apply topically to affected area [...] for Pain, Breakthrough. 60 Tablet 06/04/2024 Active oxyCODONE HCl 5 MG Oral Tablet (Oxy IR)Indications:Mul tiple myeloma not having achieved remission (HCC),Cancer related pain Take 1 Tablet by mouth every 6 hours as needed for Pain, Breakthrough. 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 * Telephone Encounter - Love Quick RN - 06/04/2024 10:41 AM EDTPending Prescriptions: Disp Refills oxyCODONE HCl 5 MG Oral Tablet (Oxy IR) 60 Tab*0 Sig: Take 1-2 Tablets by mouth every 6 hours as needed for Pain, Breakthrough. * Telephone Encounter - Love Quick RN - 06/04/2024 10:40 AM EDT Per 05/25/[address] Allen approved for patient to take 1 or 2 tablets of oxycodone every 6 hours as needed. Adjusted rx. * Telephone Encounter - Karen Orellana RN - 06/04/2024 10:34 AM EDT Pending Prescriptions: Disp Refills oxyCODONE HCl 5 MG Oral Tablet (Oxy IR) 60 Tab*0 Sig: Take 1 Tablet by mouth every 6 hours as needed for Pain, Breakthrough. * Telephone Encounter - Karen Orellana RN - 06/04/2024 10:33 AM EDT Sending this to [facility] as the patient is seen there and this medication is too soon. [place] PDMP checked - Oxycodone 5 mg last filled on 05/26/24 for a total of 60 tablets for a total of 15 days. * Telephone Encounter - Katie Carranza, welfare specialist - 06/04/2024 10:23 AM EDT Patient is up to date for [...] appointment Last date the medication was ordered: 05/26/24 Pharmacy: [id number] [address] [facility] [place] Is this request for a controlled substance?No it is not controlled. Urine Drug Screen:No results found. However, due to the size of the patient record, not all encounters were searched. Please check Results Review for a complete set of results. Patient Phone Numbers Labs: Lab Results Component Value Date/Time CREAT 0.8 05/30/2024 04:05 PM CREAT 0.9 12/11/2020 09:50 AM POTASSIUM 4.3 05/30/2024 04:05 PM POTASSIUM 3.9 12/11/2020 09:50 AM TSH 1.13 10/08/2022 11:49 AM TSH 1.78 06/13/2020 03:25 PM LDLCALC 49 10/19/2023 03:25 PM LDLDIRECT 56 06/13/2020 03:25 PM ALT 11 05/30/2024 04:05 PM ALT 13 12/11/2020 09:50 AM HGBA1C 6.4 (H) 10/19/2023 03:25 PM HGBA1C 6.3 (H) 12/11/2020 09:50 AM documented in this encounter Plan of Treatment Upcoming Encounters Date Type Department Care Team (Late st Contact Info) Description 06/05/2024 11:45 AM EDT Imaging Radiology [address] [place] [address] 06/08/2024 11:00 AM EDT Hem/Onc Treatment Hematology/Oncology Treatment, [place] [address] [place] [phone] Ritu, Chair 1 Hem Onc Scenery 200 [place] [address] 06/15/2024 11:00 AM EDT Laboratory Laboratory [facility] [place] [address] [place] [phone] Ritu, Lab Scenery [address] [facility] [place] [address] 06/15/2024 12:00 PM EDT Hem/Onc Treatment Hematology/Oncology Treatment, [place] 200 [facility] [place] [address] Ritu, Chair 8 Hem Onc Scenery [address] [place] [address] 06/22/2024 11:00 AM EDT Laboratory Laboratory [address] [place] [address] [place] [address] Ritu, Lab Scenery [address] [place] [address] 06/22/2024 12:00 PM EDT Hem/Onc Treatment Hematology/Oncology Treatment, [place] 200 [facility] [place] [address] Ritu, Chair 1 Hem Onc Scenery [address] [place], [place] [address] 06/29/2024 11:00 AM EDT Laboratory Laboratory [address] [place] [address] [place] [address] Ritu, Lab Scenery [address] [place] [address] 06/29/2024 12:00 PM EDT Hem/Onc Treatment Hematology/Oncology Treatment, [place] 200 [facility] [place] [address] Ritu, Chair 10 Hem Onc Scenery [address] [place] [address] 07/06/2024 11:10 AM EDT Laboratory Laboratory Scenery Ritu [place] [address] [place] [address] [place], Lab Scenery [address] [place] [address] 07/06/2024 11:15 AM EDT Hem/Onc Treatment Hematology/Oncology Treatment, [place] 200 [facility] [place] [address] Ritu, Chair 7 Hem Onc Scene 200 [place] [address] 07/13/2024 11:00 AM EDT Laboratory Laboratory [facility] [place] [address] [place], [place] [phone] Ritu, Lab [facility] 200 [facility] [place], [place] [address] 07/13/2024 12:00 PM EDT Hem/Onc Treatment Hematology/Oncology Treatment, [place] [address] [facility], [place] [address] 08/20/2024 3:30 PM EDT Office Visit Orthopaedics, [place] [address] [place] [address] Gautam Jasso MD [address] [place] [address] Health Maintenance Due Date Last Done Comments [...] encounter Medical Devices Implanted Type Area Supervisor Assembly Stock Device Identifier Shelf Expiration Date Model / Serial / Lot Screw Elbow Humeral Total - [id number] Implanted:Qty: 1 on 12/23/2018 by Gautam Jasso [place] [facility] [place]: Upper Arm [employer] 09/13/2027 / / [id number] Deisi Nexel Total Elbow Implanted:Qty: 1 on 12/23/2018 by Gautam Jasso MD [place] [facility] [place]: Upper Arm 04/13/2023 / / [id number] Cement Antibiotic Bone - [id number] Implanted:Qty: 1 on 12/23/2018 by Gautam Jasso MD [place] [facility] [place]: Upper Arm RENY : ORTHOPAEDICS 05/13/2020 6197-9-010 / / [id number] Cement Antibiotic Bone - [id number] Implanted:Qty: 1 on 12/23/2018 by Gautam Jasso MD [place] [facility] [place]: Upper Arm RENY : ORTHOPAEDICS 05/13/2020 6197-9-010 / / [id number] Stem Compr Srs Mod [id number] - [id number] Implanted:Qty: 1 on 12/23/2018 by Gautam Jasso MD [place] [facility] [place]: Upper Arm BIOMET : TRAUMA 01/28/2027 [id number] / / [id number] Deisi Nexel Total Elbow Ulnar Component Implanted:Qty: 1 on 12/23/2018 by Gautam Jasso MD [place] [facility] [place]: Upper Arm 07/14/202500-025 -07 / / [id number] Comprehensive Srs/Nexel Distal Body Implanted:Qty: 1 on 12/23/2018 by Gautam Jasso MD [place] [facility] Right: Upper Arm 03/03/2028 [id number] / / [id number] Valve Ricky 3 Ultra 26mm - [id number] Implanted:Qty: 1 on 05/27/2022 by Jesús Weber MD at [facility] [employer] [id number] 03/17/2023 [id number] / / Port Implant W/8f Poly Cath - [id number] Implanted:Qty: 1 on 12/29/2022 by Sudhir Lovett, DO at OR [facility] Right: Chest CR BARD : PERIPHERAL VASCULAR [id number] 02/12/2024 [id number] / / [id number] documented as of this encounter Visit Diagnoses Diagnosis Multiple myeloma not having achieved remission (HCC) Multiple myeloma, without mention of having achieved remission Cancer related pain Neoplasm related pain (acute) (chronic) documented in this encounter Advance Directives Documents on File Type Date Recorded Patient Data Scientist Expl anation Power of Pourer 12/12/2018 8:46 AM Vipin viveros Power of Pourer Power of Pourer 12/12/2018 8:45 AM Zuleyma ferguson Power of Pourer * Full Code (Latest Code Status on [...] the patient have Health Care Power of Pourer? Yes, not currently available * Full Code Date Activated Date Inactivated Comments 11/21/2018 8:53 AM 11/21/2018 2:27 PM This order ref lects the patients wishes and were consensually agreed upon. Care Teams Cyber Legal Advisor Relationship Specialty Start Date End Date Sachi Soni MD [address] [place] [facility] [place] [address] PCP - General Family Medicine 05/08/24 documented as of this encounter
--- OUTSIDE RECORDS SUMMARY | 2024-07-01 14:38 | External Medical Summary | Summary of Care ---
Author Name Unknown Organization [facility] Address [address] [place] [address] Phone [phone] Care Team Providers Care Church Official Name Role Phone Sachi Soni MD Primary Care Provider [phone] Reason for Visit * Reason Onset Date Comments Fax 06/08/2024 Dr. Allen Order Request 06/08/2024 Encounter Details Date Type Department Care Team (Late st Contact Info) Description 06/08/2024 Telephone Hematology/Oncology [facility] [address] Services, Scheduling [address] [place] [address] Fax (Dr. Allen ); Order Request Allergies [...] day. 30 Tab 12/25/2018 Active nystatin (NYSTOP) 383803 UNIT/GM powder Apply topically to affected area [...] - 06/08/2024 11:05 AM EDT Chloe with [facility] called to request a referral, the patients history and physical notes, a med list, demographics, any recent notes and a hospice order. She advised this can be faxed to [phone]. Chloe can be reached at [phone] with any questions. Thank you. documented in this encounter Plan of Treatment Upcoming Encounters Date Type Department Care Team (Late st Contact Info) Description 06/11/2024 2:45 PM EDT Imaging Radiology [address], [address] [place] [address] 06/15/2024 11:00 AM EDT Laboratory [facility] [place] [address] [place] [phone] Ritu Lab Scenery [address] [facility] [place] [address] 06/15/2024 12:00 PM EDT Hem/Onc Treatment Hematology/Oncology Treatment, [place] [address] [place] [phone] Ritu, Chair 8 Hem Onc Scenery [address] [place] [address] 06/22/2024 11:00 AM EDT Laboratory Laboratory [facility] [address] [place] [address] Park, Lab Scenery [address] [place] [address] 06/22/2024 12:00 PM EDT [facility] 200 [place] [address] Ritu, Chair 1 Hem Onc Scenery [address] [place] [address] 06/29/2024 11:00 AM EDT Laboratory Laboratory [facility] [place] [address] [place] [address] Ritu, Lab Scenery [address] [place] [address] 06/29/2024 12:00 PM EDT Hem/Onc Treatment Hematology/Oncology Treatment, [place] [address] [place] [address] Ritu, Chair 10 Hem Onc Scenery [address] [place] [address] 07/06/2024 11:10 AM EDT Laboratory Laboratory [facility] [place] [address] [place] [address] Ritu, Lab Scenery [address] [place] [address] 07/06/2024 11:15 AM EDT Hem/Onc Treatment Hematology/Oncology Treatment, [place] [address] [place] [address] Ritu, Chair 7 Hem Onc Scenery [address] [place] [address] 07/13/2024 11:00 AM EDT Laboratory Laboratory [facility] [place] [address] [place] [address] Park, Lab Scenery 200 [place] [address] 07/13/2024 12:00 PM EDT Hem/Onc Treatment Hematology/Oncology Treatment, [place] [address] [place] [address] 08/20/2024 3:30 PM EDT Office Visit Orthopaedics, [place] [address] [place] [address] Gautam Jasso MD [address] [place] [address] Health Maintenance Due Date Last Done Comments [...] this encounter Medical Devices Implanted Type Area Freight Coordinator Device Identifier Shelf Expiration Date Model / Serial / Lot Screw Elbow Humeral Total - [id number] Implanted:Qty: 1 on 12/23/2018 by Gautam Jasso MD [place] [facility] Right: Upper Arm [employer] 09/13/20278400-090 -00 / / [id number] Deisi Nexel Total Elbow Implanted:Qty: 1 on 12/23/2018 by Gautam Jasso MD at [place] [facility] Right: Upper Arm 04/13/2023-8400-095 -00 / / [id number] Cement Antibiotic Bone - [id number] Implanted:Qty: 1 on 12/23/2018 by Gautam Jasso MD at [place] [facility] Right: Upper Arm RENY : ORTHOPAEDICS 05/13/2020 6197-9-010 / / [id number] Cement Antibiotic Bone - [id number] Implanted:Qty: 1 on 12/23/2018 by Gautam Jasso MD at [place] [facility] Right: Upper Arm RENY : ORTHOPAEDICS 05/13/2020 6197-9-010 / / [id number] Stem Compr Srs Mod 2s652rm - [id number] Implanted:Qty: 1 on 12/23/2018 by Gautam Jasso MD at [place] [facility] Right: Upper Arm BIOMET : TRAUMA 01/28/2027 [id number] / / [id number] Deisi Nexel Total Elbow Ulnar Component Implanted:Qty: 1 on 12/23/2018 by Gautam Jasso MD at [place] [facility] Right: Upper Arm 07/14/202500-025 -07 / / [id number] Comprehensive Srs/Nexel Distal Body Implanted:Qty: 1 on 12/23/2018 by Gautam Jasso MD at OR [facility] Right: Upper Arm 03/03/2028 [id number] / / [id number] Valve Ricky 3 Ultra 26mm - [id number] Implanted:Qty: 1 on 05/27/2022 by Jesús Weber MD at CARDIAC LABS [facility] [employer] [id number] 03/17/2023 [id number] / / Port Implant W/8f Poly Cath - [id number] Implanted:Qty: 1 on 12/29/2022 by Sudhir Lovett DO at OR [facility] Right: Chest CR BARD : PERIPHERAL VASCULAR [id number] 02/12/2024 [id number] / / [id number] documented as of this encounter Advance Directives Documents on File Type Date Recorded Patient Acid Adjuster Expl anation Power of Data Management Engineer 12/12/2018 8:46 AM iVpin vvieros Power of Data Management Engineer Power of Data Management Engineer 12/12/2018 8:45 AM Zuleyma ferguson Power of Data Management Engineer * Full Code (Latest Code Status on [...] patient have Health Care Power of Data Management Engineer? Yes, not currently available * Full Code Date Activated Date Inactivated Comments 11/21/2018 8:53 AM 11/21/2018 2:27 PM This order ref lects the patients wishes and were consensually agreed upon. Care Teams Church Official Relationship Specialty Start Date End Date Sachi Soni MD [address] [place] [facility] [place] [address] PCP - General Family Medicine 05/08/24 documented as of this encounter
--- OUTSIDE RECORDS SUMMARY | 2024-07-01 14:38 | External Medical Summary | Summary of Care ---
Author Name Unknown Organization [facility] Address [address] [place] [address] Phone [phone] Care Team Providers Care Obstetrics Gynecology Md Name Role Phone Sachi Soni MD Primary Care Provider [phone] Reason for Visit * Reason Onset Date Comments Advice 06/05/2024 Alejandro Encounter Details Date Type Department Care Team (Late st Contact Info) Description 06/05/2024 Telephone Hematology/Oncology [facility] [place] 200 [facility] [address] Services, Scheduling [address] [place] [address] Advice (Alejandro) Allergies No known active allergiesdocumented as of this encounter (statuses as of 06/05/2024) Medications Medication Sig Dispensed Refills Start Date [...] day. 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 She verbalized understanding. She denies any further needs or requests at this time. * Telephone Encounter - Concha Cochran LPN - 06/05/2024 11:33 AM EDT Called and spoke with Miguelangel, Pharmacist at [facility], informed of the dosing direction changes inregards to the patient's Oxycodone Hcl 5 mg. Miguelangel states he was able to override the refill request. He states the refill will be ready for peanut picker later today. * Telephone Encounter - Concha Cochran LPN - 06/05/2024 10:[address] Allen: Patient's Daugther Meghana is requesting what else the patient can do for her RUE pain until the Oxycodone can be filled on 06/07/2024. Called and spoke with patient's daughter Meghana. She states the patient compliant of unrelieved RUEpain due to recent surgery. Daughter reports the patient "overmedicated herself" with the Oxycodoneover the weekend. Daughter denies the patient having any signs or symptoms of overdose. She states the patient is "out" of the Oxycodone and complains of "Out of this world" right arm and wrist pain.She states patient is taking OTC Tylenol without relief. Daughter reports the patient states she "found old gabapentin pills" in her night stand and states she took them last night. She states the patient reports relief in her pain after taking the Gabapentin. Daughter states she is unable to verify how many or the dose of the gabapentin. Daughter also states the patient "wants to" rub Emla cream on her right arm. She cannot have the Oxycodone refilleduntil 06/07/2024 as it is too soon to refill. Advised daughter to monitor the patient's intake of medications to prevent possible overdose or side effects. Meghana verbalized understanding. Meghana also reports she and the patient have not contacted the Orthopedic Surgeon's office in regards to the fracture pain. * Telephone Encounter - Ivis Trivedi OSA - 06/05/2024 9:57 AM EDT Pt's daughter Meghana called in stating pt has run out of oxycodone & it cannot be refilled until 06/07 so she was wondering if there is arturo lternate medication pt can use other than tylenol because she is in a lot of pain. She also called in w/ an FYI: Pt's PET scan had to be r/s to 06/11/24. documented in this encounter Plan of Treatment Upcoming Encounters Date Type Department Care Team (Late st Contact Info) Description 06/08/2024 11:00 AM EDT Hem/Onc Treatment Hematology/Oncology Treatment, [place] [address] [place] [address] Ritu, Chair 1 Hem Onc Scenery [address] [place] [address] 06/11/2024 2:45 PM EDT Imaging Radiology [facility] [address] [facility] [place] [address] [place] [address] 06/15/2024 11:00 AM EDT Laboratory Laboratory [facility] [address] [place] [address] Ritu, Lab Scenery [address] [place], [place] [address] 06/15/2024 12:00 PM EDT Hem/Onc Treatment Hematology/Oncology Treatment, [place] 200 [facility], [place] [address] Ritu, Chair 8 Hem Onc Scenery [address] [place] [address] 06/22/2024 11:00 AM EDT Laboratory Laboratory [facility] [place] [address] [place] [address] Ritu, Lab Scenery [address] [facility], [place] [address] 06/22/2024 12:00 PM EDT Hem/Onc Treatment Hematology/Oncology Treatment, [place] [address] [facility], [place] [address] Ritu, Chair 1 Hem Onc Scenery [address] [place], [place] [address] 06/29/2024 11:00 AM EDT Laboratory Laboratory [facility] Ritu [place] [address] [place], [place] [address] Ritu, Lab Scenery [address] [place], [place] [address] 06/29/2024 12:00 PM EDT Hem/Onc Treatment Hematology/Oncology Treatment, [place] [facility] [place] [address] Ritu, Chair 10 Hem Onc Scenery [address] [place] [address] 07/06/2024 11:10 AM EDT Laboratory Laboratory [facility] [address] [place], [place] [phone] Ritu, Lab Scenery [address] [place], [place] [address] 07/06/2024 11:15 AM EDT Hem/Onc Treatment Hematology/Oncology Treatment, [place] [address] [facility], [place] [phone] Ritu, Chair 7 Hem Onc Scene [address] [place], [place] [address] 07/13/2024 11:00 AM EDT Laboratory Laboratory [facility] [address] [place], [place] [phone] Ritu, Lab Scenery [address] [place], [place] [address] 07/13/2024 12:00 PM EDT Hem/Onc Treatment Hematology/Oncology Treatment, [place] [address] [facility], [place] [address] 08/20/2024 3:30 PM EDT Office Visit Orthopaedics, [place] [address] [place] [address] Gautam Jasso MD [address] [place] [address] Health Maintenance Due Date Last Done Comments [...] encounter Medical Devices Implanted Type Area Grain Drier Device Identifier Shelf Expiration Date Model / Serial / Lot Screw Elbow Humeral Total - [id number] Implanted:Qty: 1 on 12/23/2018 by Gautam Jasso MD [place] [facility] [place]: Upper Arm [employer] 09/13/20278400-090 -00 / / [id number] Deisi Nexel Total Elbow Implanted:Qty: 1 on 12/23/2018 by Gautam Jasso MD [place] [facility] Right: Upper Arm 04/13/2023-8400-095 -00 / / [id number] Cement Antibiotic Bone - [id number] Implanted:Qty: 1 on 12/23/2018 by Gautam Jasso MD at [place] [facility] Right: Upper Arm RENY : ORTHOPAEDICS 05/13/2020 6197-9-010 / / [id number] Cement Antibiotic Bone - [id number] Implanted:Qty: 1 on 12/23/2018 by Gautam Jasso MD at [place] [facility] Right: Upper Arm RENY : ORTHOPAEDICS 05/13/2020 6197-9-010 / / [id number] Stem Compr Srs Mod [id number] - [id number] Implanted:Qty: 1 on 12/23/2018 by Gautam Jasso MD [place] [facility] Right: Upper Arm BIOMET : TRAUMA 01/28/2027 [id number] / / [id number] Deisi Nexel Total Elbow Ulnar Component Implanted:Qty: 1 on 12/23/2018 by Gautam Jasso MD at [place] [facility] Right: Upper Arm 07/14/2025 00-8400-025 -07 / / [id number] Comprehensive Srs/Nexel Distal Body Implanted:Qty: 1 on 12/23/2018 by Gautam Jasso MD at [place] [facility] Right: Upper Arm 03/03/2028 [id number] / / [id number] Valve Ricky 3 Ultra 26mm - [id number] Implanted:Qty: 1 on 05/27/2022 by Jesús Weber MD at [facility] [employer] [id number] 03/17/2023 [id number] / / Port Implant W/8f Poly Cath - [id number] Implanted:Qty: 1 on 12/29/2022 by Sudhir Lovett DO at [facility] Right: Chest CR BARD : PERIPHERAL VASCULAR [id number] 02/12/2024 [id number] / / [id number] documented as of this encounter Advance Directives Documents on File Type Date Recorded Patient City Auditor Expl anation Power of Linen Room Custodian 12/12/2018 8:46 AM Vipin hcare Power of Linen Room Custodian Power of Linen Room Custodian 12/12/2018 8:45 AM Zuleyma ferguson Power of Linen Room Custodian * Full Code (Latest Code Status on [...] the patient have Health Care Power of Linen Room Custodian? Yes, not currently available * Full Code Date Activated Date Inactivated Comments 11/21/2018 8:53 AM 11/21/2018 2:27 PM This order ref lects the patients wishes and were consensually agreed upon. Care Teams Obstetrics Gynecology Md Relationship Specialty Start Date End Date Sachi Soni MD [address] [place] [facility] [address] PCP - General Family Medicine 05/08/24 documented as of this encounter
--- OUTSIDE RECORDS SUMMARY | 2024-07-01 14:38 | External Medical Summary ---
Author Name Unknown Address Unknown Organization K01:[facility] [address] [facility] [address] Laboratory Report Ordering Provider Test Date Status WOOD CANTU 05/30/2024 16:05:07 Final Observation Date Value Abnormality Reference (Units ) Status WBC, Total 05/30/2024 16:05:07 2.61 Below low normal 4. 00-10.80 (K/uL) Final RBC 05/30/2024 16:05:07 3.47 3.85-5.15 (M/uL) Final Hemoglobin 05/30/2024 16:05:07 10.0 Below low normal 12 .0-15.3 (g/dL) Final HCT 05/30/2024 16:05:07 34.0 Below low normal 36. 0-45.2 (%) Final MCV 05/30/2024 16:05:07 98.0 81.5-97.5 (fL) Final MCH 05/30/2024 16:05:07 28.8 27.0-34.0 (pg) Final MCHC 05/30/2024 16:05:07 29.4 32.0-36.0 (g/dL) Final RDW 05/30/2024 16:05:07 18.6 11.5-15.5 (%) Final Platelets 05/30/2024 16:05:07 108 Below low normal 140 -400 (K/uL) Final MPV 05/30/2024 16:05:07 Final No result - abnormal platele t distribution. Nucleated erythrocytes/100 leukocytes [Ratio] in Blood by Automated count 05/30/2024 16:05:07 1 Above high normal <=0 (/100 WBCs) Final Performing Location [facility] [place] [address] [place] [address]
--- OUTSIDE RECORDS SUMMARY | 2024-07-01 14:38 | External Medical Summary ---
Author Name Unknown Address Unknown Organization K01:[facility] [place] [address] [facility] [address] Laboratory Report Ordering Provider Test Date Status RADHA ESTRELLA 06/07/2024 11:14:54 Final Observation Date Value Abnormality Reference (Units ) Status HbA1C 06/07/2024 11:14:54 6.0 Above high normal 4. 0-5.6 (%) Final The use of HbA1c to monitor glycemic status is based on normal hemoglobin and HbA composition. This test should not be used in patients with abnormal hemoglobin that affects the half life of the red blood cell or the in vivo glycation rates. Glucose, estimated average 06/07/2024 11:14:54 126 Above high normal <126 (mg/dL) Abisai mcconnell Performing Location [facility] - [address] [place] [address]
--- OUTSIDE RECORDS SUMMARY | 2024-07-01 14:38 | External Medical Summary | Summary of Care ---
Author Name Unknown Organization [facility] Address [address] [facility] [place] [address] Phone [phone] Care Team Providers Care Cooker Mechanic Name Role Phone Sachi Soni MD Primary Care Provider [phone] Reason for Visit * Reason Comments Chemotherapy Cytoxan/Darzalex Fas pro * Episode Based Medications (Routine) - Authorized Specialty Diagnoses / Procedures Referred By Contac t Referred To Contact Diagnoses Multiple myeloma not having achieved remission (HCC) Procedures MD DARATUMUMAB, HYALURONIDASE MD CYCLOPHOSPHAMIDE 100 MG INJ MD INJ, CYCLOPHOSPHAMIDE, NOS Jorge Allen MD [address] [place] [address] Anc Hem/Onc Ward Chaney DEPT CLOSED - 09/27/23 [address] [place] [address] Referral ID Status Reason Start Date Expiration Date V isits Requested Visits Authorized [id number] Authorized 07/23/2022 11/13/2099 999 99 Encounter Details Date Type Department Care Team (Latest Contact Info) Description 05/25/2024 12:00 PM EDT Hem/Onc Treatment Hematology/Oncolog y Treatment, [place] [address] [place] [address] Ritu, Chair 3 Hem Onc Scenery [address] [place] [address] Multiple myeloma not having achieved remission (HCC)*; [...] day. 30 Tab 12/25/2018 Active nystatin (NYSTOP) 382692 UNIT/GM powder Apply topically to affected area [...] 12:00 PM EDT Hem/Onc Treatment [facility]ematology[facility] [place] [facility] [address] Ritu, Chair 7 Hem Onc Scenery [address] [place] [address] 06/05/2024 11:45 AM EDT Imaging Radiology [address], [place] 132 [facility] [place] [address] 06/08/2024 11:00 AM EDT Hem/Onc Treatment Hematology/[facility] [place] [facility] [address] Ritu, Chair 1 Hem Onc Scenery 200 [facility] [place] [address] 06/15/2024 11:00 AM EDT Laboratory Laboratory [facility] Ritu [place] [address] [place] [address] Ritu, Lab Scenery [address] [facility] [place] [address] 06/15/2024 12:00 PM EDT Hem/Onc Treatment Hematology/Oncology Treatment, [place] [facility] [address] Ritu, Chair 6 Hem Onc Scenery [address] [place] [address] 06/22/2024 11:00 AM EDT Laboratory Laboratory [facility] Ritu [place] [address] [place] [address] Ritu, Lab Scenery [address] [place] [address] 06/22/2024 12:00 PM EDT Hem/Onc Treatment Hematology/Oncology Treatment, [place] 200 [place] [address] Ritu, Chair 1 Hem Onc Scenery [address] [place] [address] 06/29/2024 11:00 AM EDT Laboratory Laboratory [facility] [place] [address] [place] [address] Ritu, Lab Scenery [address] [place] [address] 06/29/2024 12:00 PM EDT Hem/Onc Treatment Hematology/Oncology Treatment, [place] 200 [place] [address] Ritu, Chair 10 Hem Onc Scenery [address] [place], [place] [address] 07/06/2024 11:10 AM EDT Laboratory Laboratory [facility] [place] [address] [place], [place] [address] Ritu, Lab Scenery [address] [place] [address] 07/06/2024 12:30 PM EDT Hem/Onc Treatment Hematology/Oncology Treatment, [place] 200 [place] [address] Ritu, Chair 4 Hem Onc Scenery [address] [place] [address] 07/13/2024 11:00 AM EDT Laboratory Laboratory [facility] [place] [address] [place] [address] Ritu, Lab Scenery [address] [place] [address] 07/13/2024 11:30 AM EDT Office Visit Hematology/Oncology [facility] [place] [address] [place] [address] Mariana Florez CRNP [address] [place] [address] 07/13/2024 12:00 PM EDT Hem/Onc Treatment Hematology/Oncology Treatment, [place] [address] [place] [address] 08/20/2024 3:30 PM EDT Office Visit Orthopaedics, [place] [address] [place] [address] Gautam Jasso MD [address] [place] [address] Health Maintenance Due Date Last Done Comments [...] encounter Medical Devices Implanted Type Area Parts Counter Sales Person Device Identifier Shelf Expiration Date Model / Serial / Lot Screw Elbow Humeral Total - [id number] Implanted:Qty: 1 on 12/23/2018 by Gautam Jasso MD [place] [facility] [place]: Upper Arm [employer] 09/13/20278400-090 -00 / / [id number] Deisi Nexel Total Elbow Implanted:Qty: 1 on 12/23/2018 by Gautam Jasso MD [place] [facility] Right: Upper Arm 04/13/202300-095 -00 / / [id number] Cement Antibiotic Bone - [id number] Implanted:Qty: 1 on 12/23/2018 by Gautam Jasso MD [place] [facility] [place]: Upper Arm RENY : ORTHOPAEDICS 05/13/2020 6197-9-010 / / [id number] Cement Antibiotic Bone - [id number] Implanted:Qty: 1 on 12/23/2018 by Gautam Jasso MD [place] [facility] [place]: Upper Arm RENY : ORTHOPAEDICS 05/13/2020 6197-9-010 / / [id number] Stem Compr Srs Mod [id number] - [id number] Implanted:Qty: 1 on 12/23/2018 by Gautam Jasso MD [place] [facility] [place] Right: Upper Arm BIOMET : TRAUMA 01/28/2027 [id number] / / [id number] Deisi Nexel Total Elbow Ulnar Component Implanted:Qty: 1 on 12/23/2018 by Gautam Jasso MD [place] [facility] [place] Right: Upper Arm 07/14/202500-025 -07 / / [id number] Comprehensive Srs/Nexel Distal Body Implanted:Qty: 1 on 12/23/2018 by Gautam Jasso MD at [place] [facility] [place] Right: Upper Arm 03/03/2028 [id number] / / [id number] Valve Ricky 3 Ultra 26mm - [id number] Implanted:Qty: 1 on 05/27/2022 by Jesús Weber MD at [facility] [place] [employer] [id number] 03/17/2023 [id number] / / Port Implant W/8f Poly Cath - [id number] Implanted:Qty: 1 on 12/29/2022 by Sudhir Lovett DO at OR [facility] Right: Chest CR BARD : PERIPHERAL VASCULAR [id number] 02/12/2024 [id number] / / [id number] documented as of this encounter Visit Diagnoses [...] PM EDT 620 mg 516.2 mL/hr Daratumumab-hyaluronida -[facility] (Darzalex Faspro) 1800 mg-61872 units/ 15 ml subcut inj 15 mL, [...] Documents on File Type Date Recorded Patient Desulfurizer Hand Expl anation Power of Vehicle Fuel Systems Converter 12/12/2018 8:46 AM Vipin hcare Power of Vehicle Fuel Systems Converter Power of Vehicle Fuel Systems Converter 12/12/2018 8:45 AM Zuleyma ferguson Power of Vehicle Fuel Systems Converter * Full Code (Latest Code Status on [...] the patient have Health Care Power of Vehicle Fuel Systems Converter? Yes, not currently available * Full Code Date Activated Date Inactivated Comments 11/21/2018 8:53 AM 11/21/2018 2:27 PM This order ref lects the patients wishes and were consensually agreed upon. Care Teams Cooker Mechanic Relationship Specialty Start Date End Date Sachi Soni MD [address] [place] [address] PCP - General Family Medicine 05/08/24 documented as of this encounter
--- OUTSIDE RECORDS SUMMARY | 2024-07-01 14:38 | External Medical Summary ---
Author Name Unknown Address Unknown Organization K01:[place] [place] [address] [facility] [place] [address] Laboratory Report Ordering Provider Test Date Status WOOD CATNU 06/07/2024 11:14:54 Final Observation Date Value Abnormality Reference (Units ) Status SYNC LEUKOCYTES IN BLOOD BY AUTOMATED COUNT 06/07/2024 11:14:54 2.79 Below low normal 4.00-10.80 (K/uL) Final Segs 06/07/2024 11:14:54 71.3 40.0-75.0 (%) Final Lymphs % 06/07/2024 11:14:54 5.7 Below low normal 18.0-42.0 (%) Final Monos 06/07/2024 11:14:54 16.5 Above high normal 1.0-11.0 (%) Final Eosinophils 06/07/2024 11:14:54 4.7 0.0-6.0 (%) Final Basos 06/07/2024 11:14:54 0.7 0.0-2.0 (%) Final Immature Granulocyte, Percent 06/07/2024 11:14:54 1.1 0.0-2.0 (%) Final Absolute Segs 06/07/2024 11:14:54 1.99 1.80-7.70 (K/uL) Final Lymphs, absolute 06/07/2024 11:14:54 0.16 Below low normal 1.00-4.80 (K/ul) Final Monos, Abs 06/07/2024 11:14:54 0.46 0.00-1.10 (K/uL) Final Eos, Abs 06/07/2024 11:14:54 0.13 0.00-0.70 (K/uL) Final Basos, Abs 06/07/2024 11:14:54 0.02 0.00-0.20 (K/uL) Final Immature Granulocytes, Number 06/07/2024 11:14:54 0.03 0.00-0.20 (K/uL) Final Performing Location [facility] [place] [facility] [address]. [facility] [address]
--- OUTSIDE RECORDS SUMMARY | 2024-07-01 14:38 | External Medical Summary ---
Author Name Unknown Address Unknown Organization K01:LABORATORY [facility] [place] - [address] [place] [address] Laboratory Report Ordering Provider Test Date Status WOOD CANTU 06/07/2024 11:14:54 Final Observation Date Value Abnormality Reference (Units ) Status IgG 06/07/2024 11:14:54 684 Below low normal 700 -1600 (mg/dL) Final IgA 06/07/2024 11:14:54 209 70-400 (mg /dL) Final IgM 06/07/2024 11:14:54 21 Below low normal 40- 230 (mg/dL) Final Performing Location LABORATORY C - [address] [place] [address]
--- OUTSIDE RECORDS SUMMARY | 2024-07-01 14:38 | External Medical Summary | Summary of Care ---
Author Name Unknown Organization [facility] Address [address] [place] [facility] [place] [address] Phone [phone] Care Team Providers Care Lens Gauger Name Role Phone Sachi Soni MD Primary Care Provider [phone] Reason for Visit * Reason Comments Outpatient Testing Encounter Details Date Type Department Care Team (Late st Contact Info) Description 06/07/2024 11:00 AM EDT Laboratory Laboratory, [place] [address] [place] [address] [facility] Laboratory [address] [place] [address] Multiple myeloma not having achieved remission (HCC); Borderline diabetes Allergies No known active allergiesdocumented as of this encounter (statuses as of 06/07/2024) Medications Medication Sig Dispensed Refills Start Date [...] day. 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 Aortic valve stenosis 2021 documented as of this encounter (statuses as of 06/07/2024) Social History Tobacco Use Types Packs/Day Years [...] 11:00 AM EDT Hem/Onc Treatment Hematology/Oncology Treatment, [place] 200 [facility] [place] [address] Ritu, Chair 1 Hem [place] [place] [address] 06/11/2024 2:45 PM EDT Imaging Radiology [facility]st [facility], [place] 132 [facility] [place] [address] 06/15/2024 11:00 AM EDT Laboratory Laboratory [address] [place] [address] Ritu Lab [address] [facility] [place] [address] 06/15/2024 12:00 PM EDT Hem/Onc Treatment Hematology/Oncology Treatment, [place] 200 [facility] [place] [address] Ritu, Chair 8 Hem [place] [address] [address] 06/22/2024 11:00 AM EDT Laboratory Laboratory Ward Ch[address] [place] [address] [place] [address] Ritu Lab Scenery [address] [place] [address] 06/22/2024 12:00 PM EDT Hem/Onc Treatment Hematology/Oncology Treatment, [place] 200 [place] [address] Ritu, Chair 1 Hem Onc Scenery [address] [place] [address] 06/29/2024 11:00 AM EDT Laboratory Laboratory [facility] [place] [address] [place] [address] Ritu, Lab Scenery [address] [place] [address] 06/29/2024 12:00 PM EDT Hem/Onc Treatment Hematology/Oncology Treatment, [place] 200 [place] [address] Ritu, Chair 10 Hem Onc Scenery [address] [place] [address] 07/06/2024 11:10 AM EDT Laboratory Laboratory [facility] [place] [address] [place] [address] Ritu, Lab Scenery [address] [place] [address] 07/06/2024 11:15 AM EDT Hem/Onc Treatment Hematology/Oncology Treatment, [place] 200 [place] [address] Ritu, Chair 7 Hem Onc Scenery [address] [place] [address] 07/13/2024 11:00 AM EDT Laboratory Laboratory [facility] [place] [address] [place] [address] Ritu, Lab Scenery [address] [place] [address] 07/13/2024 12:00 PM EDT Hem/Onc Treatment Hematology/Oncology Treatment, [place] [address] [place] [address] 08/20/2024 3:30 PM EDT Office Visit Orthopaedics, [place] [address] [place] [address] Gautam Jasso MD [address] [place] [address] Pending Results Name Type Priority Associated Diagnoses Date /Time IMMUNOGLOBULIN QUANTITATIVE Lab STAT Multiple myeloma not having achieved remission (HCC) 06/07/2024 11:14 AM EDT SERUM FREE LIGHT CHAINS Lab STAT Multiple myeloma not having achieved remission (HCC) 06/07/2024 11:14 AM EDT SERUM PROTEIN ELECTROPHORESIS REFLEX PROFILE Lab STAT Multiple myeloma not having achieved remission (HCC) 06/07/2024 11:14 AM EDT CBC WITH WBC DIFFERENTIAL Lab STAT Multiple myeloma not having achieved remission (HCC) 06/07/2024 11:14 AM EDT COMPREHENSIVE METABOLIC PANEL Lab STAT Multiple myeloma not having achieved remission (HCC) 06/07/2024 11:14 AM EDT HEMOGLOBIN A1C Lab Routine Borderline diabetes 06/07/2024 11:14 AM EDT CBC Lab STAT Multiple myeloma not having achieved remission (HCC) 06/07/2024 11:14 AM EDT DIFFERENTIAL, AUTOMATED Lab STAT Multiple myeloma not having achieved remission (HCC) 06/07/2024 11:14 AM EDT Health Maintenance Due Date Last [...] this encounter Medical Devices Implanted Type Area Take Off Worker Device Identifier Shelf Expiration Date Model / Serial / Lot Screw Elbow Humeral Total - [id number] Implanted:Qty: 1 on 12/23/2018 by Gautam Jasso MD at [place] [facility] [place] Right: Upper Arm [employer] 09/13/20278400-090 -00 / / [id number] Deisi Nexel Total Elbow Implanted:Qty: 1 on 12/23/2018 by Gautam Jasso MD at OR [facility] [place] Right: Upper Arm 04/13/202300-095 -00 / / [id number] Cement Antibiotic Bone - [id number] Implanted:Qty: 1 on 12/23/2018 by Gautam Jasso MD at OR [facility] [place] Right: Upper Arm RENY : ORTHOPAEDICS 05/13/2020 6197-9-010 / / [id number] Cement Antibiotic Bone - [id number] Implanted:Qty: 1 on 12/23/2018 by Gautam Jasso MD at [place] [facility] [place] Right: Upper Arm RENY : ORTHOPAEDICS 05/13/2020 6197-9-010 / / [id number] Stem Compr Srs Mod 1t272bp - [id number] Implanted:Qty: 1 on 12/23/2018 by Gautam Jasso MD at OR [facility] [place] Right: Upper Arm BIOMET : TRAUMA 01/28/2027 [id number] / / [id number] Deisi Nexel Total Elbow Ulnar Component Implanted:Qty: 1 on 12/23/2018 by Gautam Jasso MD at [place] [facility] [place] Right: Upper Arm 07/14/20258400-025 -07 / / [id number] Comprehensive Srs/Nexel Distal Body Implanted:Qty: 1 on 12/23/2018 by Gautam Jasso MD at [place] [facility] [place] Right: Upper Arm 03/03/2028 [id number] / / [id number] Valve Ricky 3 Ultra 26mm - [id number] Implanted:Qty: 1 on 05/27/2022 by Jesús Weber MD at [facility] [place] [employer] [id number] 03/17/2023 [id number] / / Port Implant W/8f Poly Cath - [id number] Implanted:Qty: 1 on 12/29/2022 by Sudhir Lovett DO at OR [facility] Right: Chest CR BARD : PERIPHERAL VASCULAR [id number] 02/12/2024 [id number] / / [id number] documented as of this encounter Visit Diagnoses Diagnosis Multiple myeloma not having achieved remission (HCC) Multiple myeloma, without mention of having achieved remission Borderline diabetes Other abnormal glucose documented in this encounter Advance Directives Documents on File Type Date Recorded 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 Yes, not currently available * Full Code Date Activated Date Inactivated Comments 11/21/2018 8:53 AM 11/21/2018 2:27 PM This order ref lects the patients wishes and were consensually agreed upon. Care Teams Lens Gauger Relationship Specialty Start Date End Date Sachi Soni MD [address] [facility], [place] [address] PCP - General Family Medicine 05/08/24 documented as of this encounter
--- OUTSIDE RECORDS SUMMARY | 2024-07-01 14:38 | External Medical Summary | Summary of Care ---
Author Name Unknown Organization [facility] Address [address] [place] [address] Phone [phone] Care Team Providers Care Slubber Operator Name Role Phone Sachi Soni MD Primary Care Provider [phone] Reason for Visit * Reason Onset Date Comments Scheduling 06/08/2024 Encounter Details Date Type Department Care Team (Late st Contact Info) Description 06/08/2024 Telephone Access Center, [place] [address] [facility] *DO NOT REMOVE THIS DEPARTMENT* [place] [address] Services, Scheduling [address] [place] [address] Scheduling Allergies No known active allergiesdocumented as of [...] day. 30 Tab 12/25/2018 Active nystatin (NYSTOP) 612760 UNIT/GM powder Apply topically to affected area [...] Telephone Encounter - Katie Craft OSA - 06/08/2024 11:59 AM EDT Apts canceled and provider apt scheduled for 06/12 that daughter is aware of * Telephone Encounter - Merrick Gross RN - 06/08/2024 10:48 AM EDT Called patients daughter back. States that her mom is having increased pain and doesn't wish to continue with treatment at this time due to ambulatory issues, overall health issues, and the pain she is having with her arms. Pt is scheduled for PET CT. Dr. Allen ok with seeing patient even if this hasn't resulted in time so that the daughter is able to come to the appointment with her mom. Scheduling- please cancel patients treatment appointment today and lab/treatment appointment on 06/15/24. * Telephone Encounter - Melodie Sampson OSA - 06/08/2024 10:32 AM EDT Patient daughter Meghana calling to speak with Love in regards to patients appts and care. She saysthat pt does not want to have anymore appts or be seen. They are looking to speak with a nurse in regards to this. Please advise thank you documented in this encounter Plan of Treatment Upcoming Encounters Date Type Department Care Team (Late st Contact Info) Description 06/11/2024 2:45 PM EDT Imaging Radiology [facility] 1st [facility], [place] 132 [facility] [place] [address] 06/12/2024 2:15 PM EDT Office Visit Hematology/Oncology [facility] [place] [address] [place] [address] Jorge Allen MD [address] [place] [address] 06/22/2024 11:00 AM EDT Laboratory Laboratory [facility] Ritu [place] [address] [place] [address] Ritu, Lab Scenery [address] [facility] [place] [address] 06/22/2024 12:00 PM EDT Hem/Onc Treatment Hematology/Oncology Treatment, [place] 200 [facility] [place] [address] Ritu, Chair 1 Hem Onc Scenery [address] [place] [address] 06/29/2024 11:00 AM EDT Laboratory Laboratory [facility] Ritu [place] [address] [place] [address] Ritu, Lab Scenery [address] [place] [address] 06/29/2024 12:00 PM EDT Hem/Onc Treatment Hematology/Oncology Treatment, [place] 200 [facility] [place] [address] Ritu, Chair 10 Hem Onc Scenery [address] [place] [address] [address] 07/06/2024 11:10 AM EDT Laboratory Laboratory [facility] Ritu [place] [address] [place] [address] Ritu, Lab Scenery [address] [place] [address] 07/06/2024 11:15 AM EDT Hem/Onc Treatment Hematology/Oncology Treatment, [place] 200 [place] [address] Ritu, Chair 7 Hem Onc [address] [place], [place] [address] 07/13/2024 11:00 AM EDT Laboratory Laboratory [facility] [place] 200 [facility] [place], [place] [address] Ritu, Lab [facility] 200 [facility] [place], [place] [address] 07/13/2024 12:00 PM EDT Hem[facility], [place] [address] 08/20/2024 3:30 PM EDT Office Visit Orthopaedics, [place] [address] [place] [address] Gautam Jasso MD [address] [place] [address] Health Maintenance Due Date Last Done Comments [...] this encounter Medical Devices Implanted Type Area Wireless Construction Manager Device Identifier Shelf Expiration Date Model / Serial / Lot Screw Elbow Humeral Total - [id number] Implanted:Qty: 1 on 12/23/2018 by Gautam Jasso MD at [place] [facility] [place] Right: Upper Arm [employer] 09/13/2027 / / [id number] Deisi Nexel Total Elbow Implanted:Qty: 1 on 12/23/2018 by Gautam Jasso MD at [place] [facility] [place] Right: Upper Arm 04/13/2023 / / [id number] Cement Antibiotic Bone - [id number] Implanted:Qty: 1 on 12/23/2018 by Gautam Jasso MD at [place] [facility] [place] Right: Upper Arm RENY : ORTHOPAEDICS 05/13/2020 6197-9-010 / / [id number] Cement Antibiotic Bone - [id number] Implanted:Qty: 1 on 12/23/2018 by Gautam Jasso MD at [place] [facility] [place] Right: Upper Arm RENY : ORTHOPAEDICS 05/13/2020 6197-9-010 / / [id number] Stem Compr Srs Mod 2t501ie - [id number] Implanted:Qty: 1 on 12/23/2018 by Gautam Jasso MD at [place] [facility] [place] Right: Upper Arm BIOMET : TRAUMA 01/28/2027 [id number] / / [id number] Deisi Nexel Total Elbow Ulnar Component Implanted:Qty: 1 on 12/23/2018 by Gautam Jasso MD at [place] [facility] [place] Right: Upper Arm 07/14/2025-025 -07 / / [id number] Comprehensive Srs/Nexel Distal Body Implanted:Qty: 1 on 12/23/2018 by Gautam Jasso MD at [place] [facility] [place] Right: Upper Arm 03/03/2028 [id number] / / [id number] Valve Ricky 3 Ultra 26mm - [id number] Implanted:Qty: 1 on 05/27/2022 by Jesús Weber MD at [facility] [place] [employer] [id number] 03/17/2023 [id number] / / Port Implant W/8f Poly Cath - [id number] Implanted:Qty: 1 on 12/29/2022 by Sudhir Lovett, at OR [facility] Right: Chest CR BARD : PERIPHERAL VASCULAR [id number] 02/12/2024 [id number] / / [id number] documented as of this encounter Advance Directives Documents on File Type Date Recorded 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 Yes, not currently available * Full Code Date Activated Date Inactivated Comments 11/21/2018 8:53 AM 11/21/2018 2:27 PM This order ref lects the patients wishes and were consensually agreed upon. Care Teams Slubber Operator Relationship Specialty Start Date End Date Sachi Soni MD [address] [place] [address] PCP - General Family Medicine 05/08/24 documented as of this encounter
--- OUTSIDE RECORDS SUMMARY | 2024-07-01 14:38 | External Medical Summary ---
Author Name Unknown Address Unknown Organization K01:LAB[facility]ATORY [facility] - [address] [facility] [place] [address] Laboratory Report Ordering Provider Test Date Status WOOD CANTU 05/30/2024 16:05:07 Final Observation Date Value Abnormality Reference (Units ) Status SYNC LEUKOCYTES IN BLOOD BY AUTOMATED COUNT 05/30/2024 16:05:07 2.61 Below low normal 4.00-10.80 (K/uL) Final Segs 05/30/2024 16:05:07 77.3 Above high normal 40.0-75.0 (%) Final Lymphs % 05/30/2024 16:05:07 3.8 Below low normal 18.0-42.0 (%) Final Monos 05/30/2024 16:05:07 14.2 Above high normal 1.0-11.0 (%) Final Eosinophils 05/30/2024 16:05:07 3.1 0.0-6.0 (%) Final Basos 05/30/2024 16:05:07 0.8 0.0-2.0 (%) Final Immature Granulocyte, Percent 05/30/2024 16:05:07 0.8 0.0-2.0 (%) Final Absolute Segs 05/30/2024 16:05:07 2.02 1.80-7.70 (K/uL) Final Lymphs, absolute 05/30/2024 16:05:07 0.10 Below low normal 1.00-4.80 (K/ul) Final Monos, Abs 05/30/2024 16:05:07 0.37 0.00-1.10 (K/uL) Final Eos, Abs 05/30/2024 16:05:07 0.08 0.00-0.70 (K/uL) Final Basos, Abs 05/30/2024 16:05:07 0.02 0.00-0.20 (K/uL) Final Immature Granulocytes, Number 05/30/2024 16:05:07 0.02 0.00-0.20 (K/uL) Final Performing Location [facility] - [facility] [address] [facility] [address]
--- OUTSIDE RECORDS SUMMARY | 2024-07-01 14:38 | External Medical Summary ---
Author Name Unknown Address Unknown Organization K01:[facility]ORY [facility] [place] - [address] [facility] [place] [address] Laboratory Report Ordering Provider Test Date Status WOOD CANTU 06/07/2024 11:14:54 Final Observation Date Value Abnormality Reference (Units ) Status BUN 06/07/2024 11:14:54 14 6-20 (mg/dL) Final Creatinine 06/07/2024 11:14:54 1.0 0.5-1.0 (mg/dL) Final Glomerular filtration rate/1.73 sq M.predicted [Volume Rate/Area] in Serum, Plasma or Blood by Creatinine-based formula (CKD-EPI) 06/07/2024 11:14:54 58 Below low normal >=60 (mL/min) Final eGFR is calculated based on the CKD-EPI 2020 equation. Sodium 06/07/2024 11:14:54 139 135-146 (m mol/L) Final Potassium 06/07/2024 11:14:54 3.7 3.5-5.1 (m mol/L) Final Cl 06/07/2024 11:14:54 102 98-107 (mm ol/L) Final CO2 06/07/2024 11:14:54 25 22-32 (mmo l/L) Final Anion gap 06/07/2024 11:14:54 12 7-15 (mmol /L) Final Glucose 06/07/2024 11:14:54 127 Above high normal 70 -120 (mg/dL) Final Albumin 06/07/2024 11:14:54 3.6 Below low normal 3.8 -5.0 (g/dL) Final AST (Aspartate aminotransferase) 06/07/2024 11:14:54 19 10-35 (U/L) Fin al Alk Phos 06/07/2024 11:14:54 59 35-130 (U/ L) Final Bilirubin, Total 06/07/2024 11:14:54 0.2 <=1 .2 (mg/dL) Final Calcium 06/07/2024 11:14:54 8.8 8.4-10.2 ( mg/dL) Final Protein 06/07/2024 11:14:54 5.8 Below low normal 6.0 -8.3 (g/dL) Final ALT (Alanine aminotransferase) 06/07/2024 11:14:54 9 Below low normal 10-35 (U/L) Final Performing Location [facility] [place] - [address] [facility] [address]
--- OUTSIDE RECORDS SUMMARY | 2024-07-01 14:39 | External Medical Summary ---
Author Name Unknown Address Unknown Organization K01:[facility]ATORY [facility] - [address] [facility] [place] [address] Laboratory Report Ordering Provider Test Date Status WOOD CANTU 05/24/2024 14:24:27 Final Observation Date Value Abnormality Reference (Units ) Status BUN 05/24/2024 14:24:27 19 6-20 (mg/dL) Final Creatinine 05/24/2024 14:24:27 0.8 0.5-1.0 (mg/dL) Final Glomerular filtration rate/1.73 sq M.predicted [Volume Rate/Area] in Serum, Plasma or Blood by Creatinine-based formula (CKD-EPI) 05/24/2024 14:24:27 72 >=60 (mL/min) Final eGFR is calculated based on the CKD-EPI 2020 equation Sodium 05/24/2024 14:24:27 142 135-146 (m mol/L) Final Potassium 05/24/2024 14:24:27 4.5 3.5-5.1 (m mol/L) Final Cl 05/24/2024 14:24:27 109 Above high normal 98 -107 (mmol/L) Final CO2 05/24/2024 14:24:27 24 22-32 (mmo l/L) Final Anion gap 05/24/2024 14:24:27 9 7-15 (mmol /L) Final Glucose 05/24/2024 14:24:27 126 Above high normal 70 -120 (mg/dL) Final Albumin 05/24/2024 14:24:27 4.0 3.8-5.0 (g /dL) Final AST (Aspartate aminotransferase) 05/24/2024 14:24:27 18 10-35 (U/L) Fin al Alk Phos 05/24/2024 14:24:27 61 35-130 (U/ L) Final Bilirubin, Total 05/24/2024 14:24:27 0.2 <=1 .2 (mg/dL) Final Calcium 05/24/2024 14:24:27 8.9 8.4-10.2 ( mg/dL) Final Protein 05/24/2024 14:24:27 6.2 6.0-8.3 (g /dL) Final ALT (Alanine aminotransferase) 05/24/2024 14:24:27 14 10-35 (U/L) Abisai mcconnell Performing Location [facility]ORY [facility] - [address] [facility] [address]
--- OUTSIDE RECORDS SUMMARY | 2024-07-01 14:39 | External Medical Summary | Summary of Care ---
Author Name Unknown Organization [facility] Address [address] [place] [address] Phone [phone] Care Team Providers Care Computer Processing Scheduler Name Role Phone Sachi Soni MD Primary Care Provider [phone] Encounter Details Date Type Department Care Team (Latest Contact Info) Description 05/23/2024 2:07 PM EDT - 05/23/2024 11:59 PM EDT Hospital Encounter Radiology, [place] [address] [place] [address] Arrived Discharge Disposition: Home - Self Care Allergies No known active allergiesdocumented as of this encounter (statuses as of 05/24/2024) Medications Medication Sig Dispensed Refills Start Date [...] day. 30 Tab 12/25/2018 Active nystatin (NYSTOP) 122750 UNIT/GM powder Apply topically to affected area [...] BEFORE BEDTIME 180 Tablet 1 04/12/2024 Active oxyCODONE HCl 5 MG Oral Tablet (Oxy IR)Indications:Mult iple myeloma not having achieved remission (HCC),Cancer related pain Take 1 Tablet by mouth every 6 hours as needed for Pain, Breakthrough. 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 Aortic valve stenosis 2021 documented as of this encounter (statuses as of 05/24/2024) Social History Tobacco Use Types Packs/Day Years [...] Team (Late st Contact Info) Description 05/25/2024 11:00 AM EDT Laboratory Laboratory [facility] [place] [address] [place] [phone] Ritu, Lab Scenery [address] [facility] [place], [place] [address] 05/25/2024 12:00 PM EDT Hem/Onc Treatment Hematology/Oncology Treatment, [place] [address] [facility], [place] [address] Ritu, Chair 3 Hem Onc Scenery [address] [place] [address] 06/01/2024 11:00 AM EDT Laboratory Laboratory [facility] [place] [address] [place] [address] iRtu, Lab Scenery [address] [facility] [place], [place] [address] 06/01/2024 12:00 PM EDT Hem/Onc Treatment Hematology/Oncology Treatment, [place] 200 [facility] Lydia [place], [place] [address] Ritu, Chair 7 Hem Onc Scenery [address] [place] [address] 06/08/2024 10:00 AM EDT Laboratory Laboratory [facility] [place] [address] [place] [address] Ritu, Lab Scenery [address] [facility] [place] [address] 06/08/2024 11:00 AM EDT Hem/Onc Treatment Hematology/Oncology Treatment, [place] [address] [facility] [place] [address] Ritu, Chair 1 Hem Onc Scenery [address] [place] [address] 06/15/2024 11:00 AM EDT Laboratory Laboratory Scenery [place] [address] [place] [address] Ritu, Lab Scenery [address] [place] [address] 06/15/2024 12:00 PM EDT Hem/Onc Treatment Hematology/Oncology Treatment, [place] [address] [facility] [place] [address] Ritu, Chair 6 Hem Onc Scenery [address] [place] [address] 06/22/2024 11:00 AM EDT Laboratory Laboratory [facility] [place] [address] [place] [address] Ritu, Lab Scenery [address] [place] [address] 06/22/2024 12:00 PM EDT [facility] [address] [facility] [place] [address] Ritu, Chair 1 Hem Onc Scenery [address] [place] [address] 06/29/2024 11:00 AM EDT Laboratory Laboratory [facility] [place] [address] [place] [address] Ritu, Lab Scenery [address] [place] [address] 06/29/2024 12:00 PM EDT Hem/Onc Treatment Hematology/Oncology Treatment, [address] [place] [address] Ritu, Chair 10 Hem Onc Scenery [address] [place], [place] [address] 07/06/2024 11:10 AM EDT Laboratory Laboratory [facility] [place] [address] [place], [place] [address] Ritu, Lab Scenery [address] [place], [place] [address] 07/06/2024 12:30 PM EDT [facility] [address] [facility], [place] [address] Ritu, Chair 4 Hem Onc Scenery [address] [place], [place] [address] 07/13/2024 11:00 AM EDT Laboratory Laboratory [facility] [place] [address] [place], [place] [phone] Ritu, Lab Scenery [address] [place], [place] [address] 07/13/2024 11:30 AM EDT Office Visit Hematology/Oncology [facility] [place] [address] [place], [place] [phone] Mariana Florez CRNP [address] [place] [address] 07/13/2024 12:00 PM EDT [facility] [address] [facility], [place] [address] Health Maintenance Due Date Last Done Comments [...] Vaccine (FLU shot) (#1) 2024 09/04/2016 GFR 05/16/2025 05/16/2024, 04/15, 05/03/2024, Additional history exists Pneumococcal Vaccine: 65+ Years [...] this encounter Medical Devices Implanted Type Area Energy Advisor Device Identifier Shelf Expiration Date Model / Serial / Lot Screw Elbow Humeral Total - [id number] Implanted:Qty: 1 on 12/23/2018 by Gautam Jasso [place] [facility] [place] Upper Arm [employer] 09/13/20278400-090 -00 / / [id number] Diesi Nexel Total Elbow Implanted:Qty: 1 on 12/23/2018 by Gautam Jasso [place] [facility] [place]: Upper Arm 04/13/20238400-095 -00 / / [id number] Cement Antibiotic Bone - [id number] Implanted:Qty: 1 on 12/23/2018 by Gautam Jasso [place] [facility] [place]: Upper Arm RENY : ORTHOPAEDICS 05/13/2020 [id number] / / [id number] Cement Antibiotic Bone - [id number] Implanted:Qty: 1 on 12/23/2018 by Gautam Jasso [place] [facility] [place]: Upper Arm RENY : ORTHOPAEDICS 05/13/2020 6197-9-010 / / [id number] Stem Compr Srs Mod 2d188ct - [id number] Implanted:Qty: 1 on 12/23/2018 by Gautam Jasso [place] [facility] [place]: Upper Arm BIOMET : TRAUMA 01/28/2027 [id number] / / [id number] Deisi Nexel Total Elbow Ulnar Component Implanted:Qty: 1 on 12/23/2018 by Gautam Jasso [place] [facility] [place]: Upper Arm 07/14/2025 00-8400-025 -07 / / [id number] Comprehensive Srs/Nexel Distal Body Implanted:Qty: 1 on 12/23/2018 by Gautam Jasso MD [place] [facility] [place]: Upper Arm 03/03/2028 [id number] / / [id number] Valve Ricky 3 Ultra 26mm - [id number] Implanted:Qty: 1 on 05/27/2022 by Jesús Weber MD [place] [facility] [facility] [place] [employer] [id number] 03/17/2023 [id number] / / Port Implant W/8f Poly Cath - [id number] Implanted:Qty: 1 on 12/29/2022 by Sudhir Lovett DO at OR [facility] Right: Chest CR BARD : PERIPHERAL VASCULAR [id number] 02/12/2024 [id number] / / [id number] documented as of this encounter Procedures Procedure Name Priority Date/Time Associated Diagnosis Comments XR WRIST 3 OR MORE VIEWS Routine 05/23/2024 2:35 PM EDT Multiple myeloma not having achieved remission (HCC) documented in this encounter Results * XR WRIST 3 OR MORE VIEWS (05/23/2024 2:35 PM EDT) Anatomical Region Laterality Modality Upper Extremity, Wrist Computed Radiography 05/23/2024 5:37 PM EDT Impressions 05/23/2024 5:35 PM EDT IMPRESSION Redemonstrated known focal cement mantle fracture along humeral stem, suggesting loosening. Small nonspecific rounded lucency along the distal radius metaphysis. Narrative 05/23/2024 5:35 PM EDT EXAM RT UPREXT XR FOREARM 2 VIEWS; XR WRIST 3 OR MORE VIEWS; XR HAND 3 OR MORE VIEWS - 05/23/2024 2:35 pm HISTORY forearm pain; wrist pain; right hand pain history of multiple myeloma currently undergoing chemotherapy with past history of past right total elbow arthroplasty in setting of multiple myeloma. COMPARISON Preceding imaging. TECHNIQUE Radiography of the RT UPREXT was performed. FINDINGS Right elbow: Right total elbow arthroplasty. Redemonstrated known focal cement mantle fracture along humeral stem, suggesting loosening. Unchanged bones and hardware. Right wrist: No acute fracture or dislocation. Small nonspecific rounded lucency along the distal radius metaphysis. Chronic ulnar styloid fracture. Moderate to marked degenerative changes, most pronounced at the triscaphe and radiocarpal joint. Peripheral vascular disease. Right hand: No acute fracture or dislocation. 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 Procedure Note Fernando Avila MD - 05/23/2024 EXAM RT UPREXT XR FOREARM 2 VIEWS; XR WRIST 3 OR MORE VIEWS; XR HAND 3 OR MOREVIEWS - 05/23/2024 2:35 pm HISTORY forearm pain; wrist pain; right hand pain history of multiple myeloma currently undergoing chemotherapy with pasthistory of past right total elbow arthroplasty in setting of multiplemyeloma. COMPARISON Preceding imaging. TECHNIQUE Radiography of the RT UPREXT was performed. FINDINGS Right elbow: Right total elbow arthroplasty. Redemonstrated known focalcement mantle fracture along humeral stem, suggesting loosening.Unchanged bones and hardware. Right wrist: No acute fracture or dislocation. Small nonspecific roundedlucency along the distal radius metaphysis. Chronic ulnar styloidfracture. Moderate to marked degenerative changes, most pronounced at thetriscaphe and radiocarpal joint. Peripheral vascular disease. Right hand: No acute fracture or dislocation. 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 IMPRESSION IMPRESSION Redemonstrated known focal cement mantle fracture along humeral stem,suggesting loosening. Small nonspecific rounded lucency along the distal radius metaphysis. Jet Richards MD RADIOLOGY (R AD GENERAL) documented in this encounter Advance Directives Documents on File Type Date Recorded Patient Layaway Clerk Expl anation Power of Radiocommunications Technician 12/12/2018 8:46 AM Vipin hcajelly Power of Radiocommunications Technician Power of Radiocommunications Technician 12/12/2018 8:45 AM Zuleyma ferguson Power of Radiocommunications Technician * Full Code (Latest Code Status [...] the patient have Health Care Power of Radiocommunications Technician? Yes, not currently available * Full Code Date Activated Date Inactivated Comments 11/21/2018 8:53 AM 11/21/2018 2:27 PM This order ref lects the patients wishes and were consensually agreed upon. Care Teams Computer Processing Scheduler Relationship Specialty Start Date End Date Sachi Soni MD [address] [facility] [address] PCP - General Family Medicine 05/08/24 documented as of this encounter
--- OUTSIDE RECORDS SUMMARY | 2024-07-01 14:39 | External Medical Summary | Summary of Care ---
Author Name Unknown Organization [facility] Address [address] [place] [address] Phone [phone] Care Team Providers Care Robotics Software Engineer Name Role Phone Sachi Soni MD Primary Care Provider [phone] Reason for Referral * Precert (Within 10 days (routine)) - Authorized Specialty Diagnoses / Procedures Referred By Contac t Referred To Contact Radiology Diagnoses Multiple myeloma not having achieved remission (HCC) Procedures PET CT WHOLE BODY FDG Jorge Allen MD [address] [facility] [place] [address] Referral ID Status Reason Start Date Expiration Date V isits Requested Visits Authorized [id number] Authorized 05/28/2024 999 999 Reason for Visit * Reason Onset Date Comments Advice 05/25/2024 Alejandro Encounter Details Date Type Department Care Team (Late st Contact Info) Description 05/25/2024 Telephone Hematology/Oncology [place] [address] [place] [address] Services, Scheduling [address] [place] [address] Advice (Alejandro ) Allergies No known active allergiesdocumented as of this encounter (statuses as of 05/28/2024) Medications Medication Sig Dispensed Refills Start Date [...] day. 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 * Telephone Encounter - Ashley Patricia OSA - 05/25/2024 8:34 AM EDT Patient [...] 12:00 PM EDT Hem/Onc Treatment Hematology/Oncology Treatment, [place] [facility] [phone] Ritu, Chair 7 Hem Onc Scenery [address] [place] [address] 06/05/2024 11:45 AM EDT Imaging Radiology [address], [place] [address] [facility] [place] [address] 06/08/2024 11:00 AM EDT Hem/Onc Treatment Hematology/Oncology Treatment, [place] [address] [facility] [phone] Ritu, Chair 1 Hem Onc Scenery [address] [facility] [address] 06/15/2024 11:00 AM EDT Laboratory Laboratory [facility] Ritu [place] [address] [place] [address] Ritu, Lab Scenery [address] [facility] [place] [address] 06/15/2024 12:00 PM EDT Hem/Onc Treatment Hematology/Oncology Treatment, [place] [address] [facility] [place] [address] Ritu, Chair 6 Hem Onc Scenery [address] [place] [address] 06/22/2024 11:00 AM EDT Laboratory Laboratory [facility] Ritu [place] [address] [place] [address] Ritu, Lab Scenery [address] [facility] [place] [address] 06/22/2024 12:00 PM EDT Hem/Onc Treatment Hematology/Oncology Treatment, [place] [address] [facility] [place] [address] Ritu, Chair 1 Hem Onc Scenery [address] [place], [place] [address] 06/29/2024 11:00 AM EDT Laboratory Laboratory Scenery Ritu [place] [address] [place] [address] Ritu, Lab Scenery [address] [place] [address] 06/29/2024 12:00 PM EDT Hem/Onc Treatment Hematology/Oncology Treatment, [place] [address] [facility], [place] [address] Ritu, Chair 10 Hem Onc Scenery [address] [place], [place] [address] 07/06/2024 11:10 AM EDT Laboratory Laboratory [facility] [place] [address] [place], [place] [address] Ritu, Lab Scenery [address] [place] [address] 07/06/2024 12:30 PM EDT Hem/Onc Treatment Hematology/Oncology Treatment, [place] [address] [facility] [place] [address] Ritu, Chair 4 Hem Onc Scenery [address] [place] [address] 07/13/2024 11:00 AM EDT Laboratory Laboratory [facility] Ritu [place] [address] [place] [address] Ritu, Lab Scenery [address] [place] [address] 07/13/2024 11:30 AM EDT Office Visit Hematology/Oncology [place] Ritu [place] [address] [place] [address] Mariana Florez CRNP [address] [facility] [place] [address] 07/13/2024 12:00 PM EDT Hem/Onc Treatment Hematology/Oncology Treatment, [place] [address] [place] [address] 08/20/2024 3:30 PM EDT Office Visit Orthopaedics, [place] [address] [place] [address] Gautam Jasso MD [address] [place] [address] Scheduled Orders Name Type Priority Associated Diagnoses [...] shot) (#1) 2024 09/04/2016 GFR 05/24/2025 05/24/2024, 07/01/2024, 05/11/2024, Additional history exists Pneumococcal Vaccine: 65+ [...] this encounter Medical Devices Implanted Type Area Mold Holder Device Identifier Shelf Expiration Date Model / Serial / Lot Screw Elbow Humeral Total - [id number] Implanted:Qty: 1 on 12/23/2018 by Gautam Jasso MD at [place] [facility] [place] Right: Upper Arm [employer] 09/13/2027-0 / / [id number] Deisi Nexel Total Elbow Implanted:Qty: 1 on 12/23/2018 by Gautam Jasso MD at [place] [facility] [place] Right: Upper Arm 04/13/2023 / / [id number] Cement Antibiotic Bone - [id number] Implanted:Qty: 1 on 12/23/2018 by Gautam Jasso MD at [place] [facility] [place] Right: Upper Arm RENY : ORTHOPAEDICS 05/13/2020 6197-9-010 / / [id number] Cement Antibiotic Bone - [id number] Implanted:Qty: 1 on 12/23/2018 by Gautam Jasso MD at [place] [facility] [place] Right: Upper Arm RENY : ORTHOPAEDICS 05/13/2020 6197-9-010 / / [id number] Stem Compr Srs Mod [id number] - [id number] Implanted:Qty: 1 on 12/23/2018 by Gautam Jasso MD at [place] [facility] [place] Right: Upper Arm BIOMET : TRAUMA 01/28/[id number] / / [id number] Deisi Nexel Total Elbow Ulnar Component Implanted:Qty: 1 on 12/23/2018 by Gautam Jasso MD at [place] [facility] [place] Right: Upper Arm 07/14/202500-025 - / / [id number] Comprehensive Srs/Nexel Distal Body Implanted:Qty: 1 on 12/23/2018 by Gautam Jasso MD at [place] [facility] [place] Right: Upper Arm 03/03/2028 [id number] / / [id number] Valve Ricky 3 Ultra 26mm - [id number] Implanted:Qty: 1 on 05/27/2022 by Jesús Weber MD at CARDIAC LABS [facility] [place] [employer] [id number] 03/17/2023 [id number] / / Port Implant W/8f Poly Cath - [id number] Implanted:Qty: 1 on 12/29/2022 by Sudhir Lovett DO at OR [facility] Right: Chest CR BARD : PERIPHERAL VASCULAR [id number] 02/12/2024 [id number] / / [id number] documented as of this encounter Visit Diagnoses Diagnosis Multiple myeloma not having achieved remission (HCC)- Primary Multiple myeloma, without mention of having achieved remission documented in this encounter Advance Directives Documents on File Type Date Recorded Patient Kayaking Instructor Expl anation Power of Renewable Energy Division Manager 12/12/2018 8:46 AM Vipin viveros Power of Renewable Energy Division Manager Power of Renewable Energy Division Manager 12/12/2018 8:45 AM Zuleyma ferguson Power of Renewable Energy Division Manager * Full Code (Latest Code Status [...] the patient have Health Care Power of Renewable Energy Division Manager? Yes, not currently available * Full Code Date Activated Date Inactivated Comments 11/21/2018 8:53 AM 11/21/2018 2:27 PM This order ref lects the patients wishes and were consensually agreed upon. Care Teams Robotics Software Engineer Relationship Specialty Start Date End Date Sachi Soni MD [address] [place] [address] PCP - General Family Medicine 05/08/24 documented as of this encounter
--- OUTSIDE RECORDS SUMMARY | 2024-07-01 14:39 | External Medical Summary | Summary of Care ---
Author Name Unknown Organization [facility] Address [address] [place] [address] Phone [phone] Care Team Providers Care Pot Sander Name Role Phone Sachi Soni MD Primary Care Provider [phone] Reason for Referral * Precert (Within 10 days (routine)) - Authorized Specialty Diagnoses / Procedures Referred By Contac t Referred To Contact Radiology Diagnoses Multiple myeloma not having achieved remission (HCC) Procedures PET CT WHOLE BODY FDG Jorge Allen MD [address] [facility] [place] [address] Referral ID Status Reason Start Date Expiration Date V isits Requested Visits Authorized [id number] Authorized 05/28/2024 999 999 Reason for Visit * Reason Onset Date Comments Advice 05/25/2024 Alejandro Encounter Details Date Type Department Care Team (Late st Contact Info) Description 05/25/2024 Telephone Hematology/Oncology [facility] [address] [place] [address] Services, Scheduling [address] [place] [address] Advice (Alejandro ) Allergies No known active [...] day. 30 Tab 12/25/2018 Active nystatin (NYSTOP) 985091 UNIT/GM powder Apply topically to affected area [...] 12:00 PM EDT Hem/Onc Treatment Hematology/[facility] Treatment, [place] [facility] [phone] Ritu, Chair 7 Hem Onc Scenery [address] [place] [address] 06/05/2024 11:45 AM EDT Imaging Radiology [address], [place] 132 [facility] [place] [address] 06/08/2024 11:00 AM EDT Hem/Onc Treatment Hematology/Oncology Treatment, [place] 200 [facility] [address] Ritu, Chair 1 Hem Onc Scenery 200 [place] [address] 06/15/2024 11:00 AM EDT Laboratory Laboratory [facility] Ritu [place] [address] [place] [address] Ritu, Lab Scenery [address] [facility] [place] [address] 06/15/2024 12:00 PM EDT Hem/Onc Treatment Hematology/Oncology Treatment, [place] 200 [facility] [place] [address] Ritu, Chair 6 Hem Onc Scenery [address] [place] [address] 06/22/2024 11:00 AM EDT Laboratory [facility] R[facility] [place] [address] [place] [address] Ritu, Lab Scenery [address] [facility] [place] [address] 06/22/2024 12:00 PM EDT Hem/Onc Treatment Hematology/Oncology Treatment, [place] 200 [facility] [place] [address] Ritu, Chair 1 Hem Onc Scenery [address] [place], [place] [address] 06/29/2024 11:00 AM EDT Laboratory Laboratory Scenery Ritu [place] [address] [place] [address] Ritu, Lab Scenery [address] [place] [address] 06/29/2024 12:00 PM EDT Hem/Onc Treatment Hematology/Oncology Treatment, [place] 200 [facility], [place] [address] Ritu, Chair 10 Hem Onc Scenery [address] [place], [place] [address] 07/06/2024 11:10 AM EDT Laboratory [facility] Prichard [place] [address] [place], [place] [address] Ritu, Lab Scenery [address] [place] [address] 07/06/2024 12:30 PM EDT Hem/Onc Treatment Hematology/Oncology Treatment, [place] 200 [facility] [place] [address] Ritu, Chair 4 Hem Onc Scenery [address] [place] [address] 07/13/2024 11:00 AM EDT Laboratory [facility] Ritu [place] [address] [place] [address] Ritu, Lab Scenery [address] [place] [address] 07/13/2024 11:30 AM EDT Office Visit Hematology/Oncology Scene Ritu [place] [address] [place] [address] Mariana Florez CRNP 400 [facility] [place] [address] 07/13/2024 12:00 PM EDT Hem/Onc Treatment Hematology/Oncology Treatment, [place] [address] [place] [address] 08/20/2024 3:30 PM EDT Office Visit Orthopaedics, [place] [address] [place] [address] Gautam Jasso MD [address] [place] [address] Scheduled Orders Name Type Priority Associated Diagnoses [...] this encounter Medical Devices Implanted Type Area Assurance Senior Device Identifier Shelf Expiration Date Model / Serial / Lot Screw Elbow Humeral Total - [id number] Implanted:Qty: 1 on 12/23/2018 [place]am [place] [facility] [place] Upper Arm [employer] 09/13/2027-0 / / [id number] Deisi Nexel Total Elbow Implanted:Qty: 1 on 12/23/2018 by Gautam [place]asso [place] [facility] [place]: Upper Arm 04/13/2023 / / [id number] Cement Antibiotic Bone - [id number] Implanted:Qty: 1 on 12/23/2018 by Gautam [place]asso [place] [facility] [place]: Upper Arm RENY : ORTHOPAEDICS 05/13/2020 6197-9-010 / / [id number] Cement Antibiotic Bone - [id number] Implanted:Qty: 1 on 12/23/2018 by Gautam [place]asso [place] [facility] [place]: Upper Arm RENY : ORTHOPAEDICS 05/13/2020 6197-9-010 / / [id number] Stem Compr Srs Mod 2r559pi - [id number] Implanted:Qty: 1 on 12/23/2018 by Gautam [place]asso [place] [facility] [place] Upper Arm BIOMET : TRAUMA 01/28/2027939693 / / [id number] Deisi Nexel Total Elbow Ulnar Component Implanted:Qty: 1 on 12/23/2018 by Gautam Jasso [place] [facility] [place]: Upper Arm 07/14/202500-025 - / / [id number] Comprehensive Srs/Nexel Distal Body Implanted:Qty: 1 on 12/23/2018 by Gautam Jasso [place] [facility] [place]: Upper Arm 03/03/2028 [id number] / / [id number] Valve Ricky 3 Ultra 26mm - [id number] Implanted:Qty: 1 on 05/27/2022 by Jesús Weber MD [place] [facility] [facility] [place] [employer] [id number] 03/17/2023 [id number] / / Port Implant W/8f Poly Cath - [id number] Implanted:Qty: 1 on 12/29/2022 by Sudhir Lovett DO at OR [facility] Right: Chest CR BARD : PERIPHERAL VASCULAR [id number] 02/12/2024 [id number] / / [id number] documented as of this encounter Visit Diagnoses Diagnosis Multiple myeloma not having achieved remission (HCC)- Primary Multiple myeloma, without mention of having achieved remission documented in this encounter Advance Directives Documents on File Type Date Recorded Patient Check Viewer Expl anation Power of Cabana Attendant 12/12/2018 8:46 AM Vipin viveros Power of Cabana Attendant Power of Cabana Attendant 12/12/2018 8:45 AM Zuleyma ferguson Power of Cabana Attendant * Full Code (Latest Code Status on [...] the patient have Health Care Power of Cabana Attendant? Yes, not currently available * Full Code Date Activated Date Inactivated Comments 11/21/2018 8:53 AM 11/21/2018 2:27 PM This order ref lects the patients wishes and were consensually agreed upon. Care Teams Pot Sander Relationship Specialty Start Date End Date Sachi Soni MD [address] [place] [address] PCP - General Family Medicine 05/08/24 documented as of this encounter
--- OUTSIDE RECORDS SUMMARY | 2024-07-01 14:39 | External Medical Summary ---
Author Name Unknown Address Unknown Organization K01:LABORATORY [facility] - [address] [facility] [place] [address] Laboratory Report Ordering Provider Test Date Status WOOD CANTU 05/24/2024 14:24:27 Final Observation Date Value Abnormality Reference (Units ) Status SYNC LEUKOCYTES IN BLOOD BY AUTOMATED COUNT 05/24/2024 14:24:27 2.44 Below low normal 4.00-10.80 (K/uL) Final Segs 05/24/2024 14:24:27 73.0 40.0-75.0 (%) Final Lymphs % 05/24/2024 14:24:27 5.7 Below low normal 18.0-42.0 (%) Final Monos 05/24/2024 14:24:27 15.2 Above high normal 1.0-11.0 (%) Final Eosinophils 05/24/2024 14:24:27 4.5 0.0-6.0 (%) Final Basos 05/24/2024 14:24:27 0.4 0.0-2.0 (%) Final Immature Granulocyte, Percent 05/24/2024 14:24:27 1.2 0.0-2.0 (%) Final Absolute Segs 05/24/2024 14:24:27 1.78 Below low normal 1.80-7.70 (K/uL) Final Lymphs, absolute 05/24/2024 14:24:27 0.14 Below low normal 1.00-4.80 (K/ul) Final Monos, Abs 05/24/2024 14:24:27 0.37 0.00-1.10 (K/uL) Final Eos, Abs 05/24/2024 14:24:27 0.11 0.00-0.70 (K/uL) Final Basos, Abs 05/24/2024 14:24:27 0.01 0.00-0.20 (K/uL) Final Immature Granulocytes, Number 05/24/2024 14:24:27 0.03 0.00-0.20 (K/uL) Final Performing Location LABORATORY [facility] - [facility] N Maggie Tompkins. [facility] [address]
--- OUTSIDE RECORDS SUMMARY | 2024-07-01 14:39 | External Medical Summary | Summary of Care ---
Author Name Unknown Organization [facility] Address [address] [facility] [address] Phone [phone] Care Team Providers Care Production Trainer Name Role Phone Sachi Soni MD Primary Care Provider Encounter Details Date Type Department Care Team (Late st Contact Info) Description 05/26/2024 Orders Only Hematology/Oncology, [facility] 400 [place] [address] Cate Graham MD [address] [place] [address] Multiple myeloma not having achieved remission (HCC); Cancer related pain Allergies No known active allergiesdocumented as of this encounter (statuses as of 05/26/2024) Medications Medication Sig Dispensed Refills Start Date [...] day. 30 Tab 12/25/2018 Active nystatin (NYSTOP) 819965 UNIT/GM powder Apply topically to affected area [...] for Pain, Breakthrough. 60 Tablet 05/26/2024 Active oxyCODONE HCl 5 MG Oral Tablet (Oxy IR)Indications:Mul tiple myeloma not having achieved remission (HCC),Cancer related pain Take 1 Tablet by mouth every 6 hours as needed for Pain, Breakthrough. 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 Aortic valve stenosis 2021 documented as of this encounter (statuses as of 05/26/2024) Social History Tobacco Use Types Packs/Day Years [...] 06/01/2024 12:00 PM EDT Hem/Onc Treatment Hematology/[address] [phone] Ritu, Chair 7 Hem Onc [facility] [address] [place] [address] 06/08/2024 11:00 AM EDT Hem/Onc Treatment Hematology/Oncology Treatment [place] 200 [facility] [place] [phone] Ritu, Chair 1 Hem Onc [facility] [address] [place] [address] 06/15/2024 11:00 AM EDT Laboratory Laboratory [address] [place] [address] [place] [address] Ritu Lab Ward [address] [facility] [place] [address] 06/15/2024 12:00 PM EDT Hem/Onc Treatment Hematology/Oncology Treatment, [address] [place] [address] Park, Chair 6 Hem Onc Scenery [address] [place] [address] 06/22/2024 11:00 AM EDT Laboratory [facility] [address] [place] [address] Ritu, Lab Scenery [address] [place] [address] 06/22/2024 12:00 PM EDT Hem/Onc Treatment Hematology/Oncology Treatment, [place] 200 [facility] [place] [address] Ritu, Chair 1 Hem Onc Scenery [address] [place] [address] 06/29/2024 11:00 AM EDT Laboratory Laboratory [facility] [place] [address] [place] [address] Ritu, Lab Scenery [address] [place] [address] 06/29/2024 12:00 PM EDT Hem/Onc Treatment Hematology/Oncology Treatment, [place] 200 [facility] [place] [address] Ritu, Chair 10 Hem Onc Scenery [address] [place] [address] 07/06/2024 11:10 AM EDT Laboratory [facility] Ritu [place] [address] [place] [address] Ritu, Lab Scenery [address] [place] [address] 07/06/2024 12:30 PM EDT Hem/Onc Treatment Hematology/Oncology Treatment, [place] 200 [facility] [place] [address] Park, Chair 4 Hem Onc Scenery [address] [place] [address] 07/13/2024 11:00 AM EDT Laboratory Laboratory [facility] [address] [place], [place] [address] Ritu, Lab [facility] 200 [facility] [place] [address] 07/13/2024 11:30 AM EDT Office Visit Hematology/Oncology [facility] [place] 200 [facility] [place] [address] Mariana Florez CRNP [address] [place] [address] 07/13/2024 12:00 PM EDT Hem/Onc Treatment Hematology/Oncology [facility], [place] 200 [facility], [place] [address] 08/20/2024 3:30 PM EDT Office Visit Orthopaedics, [place] [address] [place] [address] Gautam Jasso MD [address] [place] [address] Health Maintenance Due Date Last Done Comments [...] this encounter Medical Devices Implanted Type Area Eye Specialist Device Identifier Shelf Expiration Date Model / Serial / Lot Screw Elbow Humeral Total - [id number] Implanted:Qty: 1 on 12/23/2018 by Gautam Jasso MD [place] [facility] [place] Right: Upper Arm [employer] 09/13/2027 - / / [id number] Deisi Nexel Total Elbow Implanted:Qty: 1 on 12/23/2018 by Gautam Jasso MD [place] [facility] [place] Right: Upper Arm 04/13/2023 - / / [id number] Cement Antibiotic Bone - [id number] Implanted:Qty: 1 on 12/23/2018 by Gautam Jasso MD at [place] [facility] [place] Right: Upper Arm RENY : ORTHOPAEDICS 05/13/2020 6197-9-010 / / [id number] Cement Antibiotic Bone - [id number] Implanted:Qty: 1 on 12/23/2018 by Gautam Jasso MD at [place] [facility] [place] Right: Upper Arm RENY : ORTHOPAEDICS 05/13/2020 6197-9-010 / / [id number] Stem Compr Srs Mod [id number] - [id number] Implanted:Qty: 1 on 12/23/2018 by Gautam Jasso MD at [place] [facility] [place] Right: Upper Arm BIOMET : TRAUMA 01/28/2027 [id number] / / [id number] Deisi Nexel Total Elbow Ulnar Component Implanted:Qty: 1 on 12/23/2018 by Gautam Jasso MD at [place] [facility] [place] Right: Upper Arm 07/14/2025-025 -07 / / [id number] Comprehensive Srs/Nexel Distal Body Implanted:Qty: 1 on 12/23/2018 by Gautam Jasso MD at [place] [facility] [place] Right: Upper Arm 03/03/2028 [id number] / / [id number] Valve Ricky 3 Ultra 26mm - [id number] Implanted:Qty: 1 on 05/27/2022 by Jesús Weber MD at CARDIAC LABS [facility] [employer] [id number] 03/17/2023 [id number] / / Port Implant W/8f Poly Cath - [id number] Implanted:Qty: 1 on 12/29/2022 by Sudhir Lovett DO at OR [facility] Right: Chest CR BARD : PERIPHERAL VASCULAR [id number] 02/12/2024 [id number] / / [id number] documented as of this encounter Visit Diagnoses Diagnosis Multiple myeloma not having achieved remission (HCC) Multiple myeloma, without mention of having achieved remission Cancer related pain Neoplasm related pain (acute) (chronic) documented in this encounter Advance Directives Documents on File Type Date Recorded Patient Log Cutter Expl anation Power of Water Treatment Plant Operator 12/12/2018 8:46 AM Vipin viveros Power of Water Treatment Plant Operator Power of Water Treatment Plant Operator 12/12/2018 8:45 AM Zuleyma ferguson Power of Water Treatment Plant Operator * Full Code (Latest Code Status on [...] the patient have Health Care Power of Water Treatment Plant Operator? Yes, not currently available * Full Code Date Activated Date Inactivated Comments 11/21/2018 8:53 AM 11/21/2018 2:27 PM This order ref lects the patients wishes and were consensually agreed upon. Care Teams Production Trainer Relationship Specialty Start Date End Date Sachi Soni MD [address] [place] [address] PCP - General Family Medicine 05/08/24 documented as of this encounter
--- OUTSIDE RECORDS SUMMARY | 2024-07-01 14:39 | External Medical Summary | Summary of Care ---
Author Name Unknown Organization [facility] Address [address] [facility] [place] [address] Phone [phone] Care Team Providers Care Instant Potato Processing Supervisor Name Role Phone Sachi Soni MD Primary Care Provider [phone] Encounter Details Date Type Department Care Team (Late st Contact Info) Description 05/25/2024 Orders Only Hematology/Oncology [address] [place] 200 [facility] [address] Mariana Florez CRNP [address] [place] [address] Multiple myeloma not having achieved remission (HCC)*; Cancer related pain Allergies No known active allergiesdocumented as of this encounter (statuses as of 05/25/2024) Medications Medication Sig Dispensed Refills Start Date [...] day. 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 Aortic valve stenosis 2021 documented as of this encounter (statuses as of 05/25/2024) Social History Tobacco Use Types Packs/Day Years [...] 12:00 PM EDT Hem/Onc Treatment [facility]ology[facility], [place] [facility] [phone] Ritu, Chair 7 Hem Onc Scenery [address] [place] [address] 06/08/2024 11:00 AM EDT [facility] [phone] Ritu, Chair 1 Hem Onc [facility] [address] [place] [address] 06/15/2024 11:00 AM EDT Laboratory Laboratory [facility] Ritu [place] [address] [place] [phone] Ritu, Lab Scenery [address] [place], [place] [address] 06/15/2024 12:00 PM EDT Hem/Onc Treatment Hematology/Oncology Treatment, [place] [address] [facility] [address] Ritu, Chair 6 Hem Onc Scenery [address] [place] [address] 06/22/2024 11:00 AM EDT Laboratory Laboratory [facility] [place] [address] [place] [address] Park, Lab Scenery [address] [place] [address] 06/22/2024 12:00 PM EDT Hem/Onc Treatment Hematology/Oncology Treatment, [place] 200 [facility] [address] Park, Chair 1 Hem Onc Scenery [address] [place] [address] 06/29/2024 11:00 AM EDT Laboratory Laboratory [facility] [place] [address] [place] [address] Ritu, Lab Scenery [address] [place] [address] 06/29/2024 12:00 PM EDT Hem/Onc Treatment Hematology/Oncology Treatment, [place] 200 [facility] [address] Ritu, Chair 10 Hem Onc Scenery [address] [place] [address] 07/06/2024 11:10 AM EDT Laboratory Laboratory [facility] [place] [address] [place] [address] Ritu, Lab Scenery [address] [place] [address] 07/06/2024 12:30 PM EDT Hem[facility] 200 [facility] [address] Ritu, Chair 4 Hem Onc Scenery [address] [place] [address] 07/13/2024 11:00 AM EDT Laboratory Laboratory [facility] [place] [address] [place] [address] Ritu, Lab Scenery [address] [place] [address] 07/13/2024 11:30 AM EDT Office Visit [facility]ematology[facility]Oncology [facility] [address] [place] [address] Mariana Florez CRNP [address] [place] [address] 07/13/2024 12:00 PM EDT Hem/Onc Treatment Hematology/Oncology Treatment, [place] 200 [facility] [address] 08/20/2024 3:30 PM EDT Office Visit Orthopaedics, [place] [address] [place] [address] Gautam Jasso MD [address] [place] [address] Scheduled Orders Name Type Priority Associated Diagnoses Orde r Schedule XR FOREARM 2 VIEWS Medical Imaging Routine Multiple myeloma not having achieved remission (HCC) Cancer related pain Ordered: 05/25/2024 XR HAND 3 OR MORE VIEWS Medical Imaging Routine Multiple myeloma not having achieved remission (HCC) Cancer related pain Ordered: 05/25/2024 XR WRIST 3 OR MORE VIEWS Medical Imaging Routine Multiple myeloma not having achieved remission (HCC) Cancer related pain Ordered: 05/25/2024 Health Maintenance Due Date Last Done Comments [...] this encounter Medical Devices Implanted Type Area Automotive Service Writer Device Identifier Shelf Expiration Date Model / Serial / Lot Screw Elbow Humeral Total - [id number] Implanted:Qty: 1 on 12/23/2018 by Gautam Jasso MD at [place] [facility] [place] Right: Upper Arm [employer] 09/13/202700-090 - / / [id number] Deisi Nexel Total Elbow Implanted:Qty: 1 on 12/23/2018 by Gautam Jasso MD at [place] [facility] [place] Right: Upper Arm 04/13/202309 - / / [id number] Cement Antibiotic Bone - [id number] Implanted:Qty: 1 on 12/23/2018 by Gautam Jasso MD at [place] [facility] [place] Right: Upper Arm RENY : ORTHOPAEDICS 05/13/2020 6197-9-010 / / [id number] Cement Antibiotic Bone - [id number] Implanted:Qty: 1 on 12/23/2018 by Gautam Jasso MD at [place] [facility] [place] Right: Upper Arm RENY : ORTHOPAEDICS 05/13/2020 6197-9-010 / / [id number] Stem Compr Srs Mod 5o972tn - [id number] Implanted:Qty: 1 on 12/23/2018 by Gautam Jasso MD at [place] [facility] [place] Right: Upper Arm BIOMET : TRAUMA 01/28/2027 [id number] / / [id number] Deisi Nexel Total Elbow Ulnar Component Implanted:Qty: 1 on 12/23/2018 by Gautam Jasso MD at [place] [facility] [place] Right: Upper Arm 07/14/202500-025 -07 / / [id number] Comprehensive Srs/Nexel Distal Body Implanted:Qty: 1 on 12/23/2018 by Gautam Jasso MD at [place] [facility] [place] Right: Upper Arm 03/03/2028 [id number] / / [id number] Valve Ricky 3 Ultra 26mm - [id number] Implanted:Qty: 1 on 05/27/2022 by Jesús Weber MD at CARDIAC LABS [facility] [employer] [id number] 03/17/2023 [id number] / / Port Implant W/8f Poly Cath - [id number] Implanted:Qty: 1 on 12/29/2022 by Sudhir Lovett DO at OR [facility] Right: Chest CR BARD : PERIPHERAL VASCULAR [id number] 02/12/2024 [id number] / / [id number] documented as of this encounter Visit Diagnoses Diagnosis Multiple myeloma not having achieved remission (HCC)- Primary Multiple myeloma, without mention of having achieved remission Cancer related pain Neoplasm related pain (acute) (chronic) documented in this encounter Advance Directives Documents on File Type Date Recorded Patient Auto Battery Builder Expl anation Power of Sales Agent [employer] 12/12/2018 8:46 AM Vipin viveros Power of Sales Agent [employer] Power of Sales Agent [employer] 12/12/2018 8:45 AM Zuleyma ferguson Power of Sales Agent [employer] Insurance * Full Code (Latest Code Status on [...] patient have Health Care Power of Sales Agent [employer]? Yes, not currently available * Full Code Date Activated Date Inactivated Comments 11/21/2018 8:53 AM 11/21/2018 2:27 PM This order ref lects the patients wishes and were consensually agreed upon. Care Teams Instant Potato Processing Supervisor Relationship Specialty Start Date End Date Sachi Soni MD [address] [facility] [place] [address] PCP - General Family Medicine 05/08/24 documented as of this encounter
--- OUTSIDE RECORDS SUMMARY | 2024-07-01 14:39 | External Medical Summary | Summary of Care ---
Author Name Unknown Organization [facility] Address [address] [place] [address] Phone [phone] Care Team Providers Care Fresh Meat Grader Name Role Phone Sachi Soni MD Primary Care Provider [phone] Reason for Visit * Reason Comments Follow Up Right arm pain Encounter Details Date Type Department Care Team (Late st Contact Info) Description 05/23/2024 1:30 PM EDT Office Visit Orthopaedics, [place] [address], [place] [id number] Gautam Jasso MD [address], [place] [phone] Multiple myeloma not having achieved remission (HCC)* Allergies No known active allergiesdocumented as of [...] day. 30 Tab 12/25/2018 Active nystatin (NYSTOP) 462955 UNIT/GM powder Apply topically to affected area [...] Sign Reading Time Taken Comments Blood Pressure 110/47 05/23/2024 1:16 PM EDT Pulse 88 05/23/2024 1:16 PM EDT Temperature 36.6 C (97.9 F) 05/23/2024 1:16 PM ED T Respiratory Rate - - Oxygen Saturation 96% 05/23/2024 1:16 PM EDT room air Inhaled Oxygen Concentration - - Weight 103.8 kg (228 lb 12.8 oz) 05/23/2024 1:16 PM EDT Height 149.9 cm (4' 11") 05/23/2024 1:16 PM EDT Body Mass Index 46.21 05/23/2024 1:16 PM EDT documented in this [...] as of this encounter Progress Notes * Gautam Jasso MD - 05/25/2024 1:23 PM EDT Orthopedic Oncology is an 84-year-old woman with a past medical history of multiple myeloma and 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 She returns the Orthopaedic Clinic today reporting right lateralelbow pain, prompting further evaluation. After reviewing the patient's history, physical examination, and radiographic examination, I suspect the patient may be experiencing early loosening of her right distal humerus replacement. I do not see evidence of overt implant instability nor do I see signs of other complications, such as surgical site infection or locally recurrent tumor. Today, we discussed the options of continued observation versus consideration for revision right distal humerus arthroplasty. After consideration, the patient politely but quite clearly declines consideration for surgical treatment in the near future. She feels her condition, although not perfect, is tolerable, and much preferred over the risks of surgical treatment. Personally, I see no urgency or emergency towards surgical treatment. I will plan to see the patient in follow up in the orthopedic clinic in about 3 months. Upon returnthe orthopedic clinic I will plan to obtain two views of the right humerus and two views of the right forearm. I encouraged the patient to return the orthopaedic clinic sooner than scheduled if her condition worsens or if new symptoms arise. I have discussed the patient's management with the resident/fellow physician and agree with the note. Please refer to the documented findings and plan of care. This patient's visit today consisted ofan evaluation. I was present and confirmed the findings of the history and exam. Gautam Jasso MD * Jet Richards MD - 05/23/2024 1:48 PM EDT ORTHOPAEDIC SURGERY OUTPATIENT NOTE 05/23/2024 Chantel Roy : 1940 HISTORY OF PRESENT ILLNESS: Chantel Roy is a 84 year old female who was referred to Dr. Figueroa, by Self, for evaluation of right elbow pain. Patient has history of multiple myeloma currently undergoing cheomtherapy with past history of past right total elbow arthropalsty in setting of multiple myeloma. The patient endorses several months of increasing right upper extremity pain that isatraumatic in origin. The pain extends from her shoulder to her wrist, is not necessarily activity related, is moderately improved with tylenol. She underwent right elbow xrays last month which showed a possible new lucency at the cement-stem interface of her humeral component. REVIEW OF SYSTEMS: Patient denies SHEPHERD, vision changes, recent illnesses, URI symptoms, chest pain, palpitations, shortness of breath, difficulty breathing, abdominal pain, nausea, vomiting, diarrhea, constipation. Patient denies swollen lymph nodes, masses or deformities, other musculoskeletal pain than in HPI, fevers, night sweats, unintentional weight loss, loss of appetite, fatigue, unusual bleeding or bruising. Otherwise negative. ALLERGIES: Patient has no known allergies. MEDICATIONS: Current Outpatient Medications Medication Sig Dispense Refill [...] a day. 30 Tab 0 nystatin (NYSTOP) 204583 UNIT/GM powder Apply topically to affected area 2 times a day. Apply to abd. Skin folds 15 g 0 atorvaSTATin (LIPITOR) 10 MG Tablet daily. Prochlorperazine Maleate 10 MG Oral Tablet (Compazine) [...] as needed for Nausea. 20 Tablet 1 Metoprolol Tartrate 25 MG Oral Tablet (Lopressor) Take 1 Tablet by mouth in the morning and 1 Tablet before bedtime. Phospha 250 Neutral 155-852-130 MG Oral Tablet TAKE 1 TABLET BY MOUTH IN THE MORNING AND BEFORE BEDTIME 180 Tablet 1 oxyCODONE HCl 5 MG Oral Tablet (Oxy IR) Take 1 Tablet by mouth every 6 hours as needed for Pain, Breakthrough. 60 Tablet 0 dexAMETHasone 4 MG Oral Tablet (Decadron) Take 20mg once a week 60 Tablet 1 Steel Rolling Walker Use as directed . Rollator walker 1 Each 0 Lidocaine-Prilocaine 2.5-2.5 % External Cream (Emla) APPLY TO SKIN OVER MEDIPORT & COVER 1HR PRIOR TO ACCESSING. 30 g 1 No current facility-administered medications for this visit. 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) PAST SURGICAL HISTORY: Past Surgical History: Procedure Laterality Date ABD WALL HERNIA REPAIR, LAP, REDUCIBLE ANESTH, TOTAL KNEE REPLACEMENT Bilateral BONE BIOPSY, TROCAR/NEEDLE, DEEP Right 11/21/2018 BIOPSY BONE TROCAR OR NEEDLE DEEP performed by Gautam Jasso MD [place] [facility] BONE MARROW ASPIRATION 12/23/2018 BONE MARROW ASPIRATION performed by Gautam Jasso MD at [place] [facility] CARPAL TUNNEL SURGERY Carpal Tunnel repair right DILATION AND CURETTAGE (D&C) FLUORO CHOLECYSTOGRAM GALLBLADDER W CONTRAST 1975 HUMERUS TUMOR RESECTION Right 12/23/2018 RADICAL RESECTION TUMOR SHAFT DISTAL HUMERUS performed by Gautam Jasso MD at [place] [facility] INFORMATION 1989 wisdom teeth removal INSER TUNN ACC DEV;5 YRS/OLDER Right 12/29/2022 INSERT TUNNELED CENTRAL VENOUS ACCESS WITH SUBQ PORT performed by Sudhir Lovett DO at OR [facility] LIGATE/CUT OVIDUCT(S) 1965 RECONSTRUCT ELBOW W/HUMERAL REPLACE Right 12/23/2018 ARTHROPLASTY ELBOW WITH DISTAL HUMERUS REPLACEMENT performed by Gautam Jasso MD at [place] [facility] REMOVAL OF APPENDIX REMOVAL OF TONSILS, UNDER AGE 12 REMOVE CATARACT, INSERT LENS PROSTH REMOVE GALLBLADDER REPLACE AORTIC VALVE, PERCUTANEOUS FEMORAL Bilateral 05/27/2022 REPLACE AORTIC VALVE, PERCUTANEOUS FEMORAL performed by Jesús Weber MD at [facility] REPLACE AORTIC VALVE, PERCUTANEOUS FEMORAL 05/27/2022 REPLACE AORTIC VALVE, PERCUTANEOUS FEMORAL performed by Elton Aguirre MD at [facility] VASCULAR SURGERY PROCEDURE NEC Right 12/28/2023 UNLISTED PROCEDURE VASCULAR SURGERY performed by Dustin Velásquez MD at OR [facility] FAMILY HISTORY: Family History Problem Relation Name Age of Onset Cancer Sister breast Cancer Aunt (Unspecified) stomach Ovarian cancer Aunt (Unspecified) Cancer Father mouth Diabetes Grandmother (Maternal) Diabetes Mother borderline SOCIAL HISTORY: PHYSICAL EXAMINATION: BP 110/47 (BP Site: Left Arm, BP Position: Sitting) | Pulse 88 | Temp 36.6 C (97.9 F) (Tympanic) | Ht 1.499 m (4' 11") | Wt 103.8 kg (228 lb 12.8 oz) | SpO2 96% Comment: room air | BMI 46.21 kg/m | BSA 2.08 m General: Alert and oriented X3, no acute distress Cardiovascular: Regular rate felt in periphery Lungs: Regular respiratory effort Musculoskeletal: RUE: Skin intact throughout, well healed surgical scar Tender to palpation over volar wrist, and distal humerus Non-tender to palpation over: Clavicle, shoulder, humerus, elbow, forearm, hand, and fingers. Motor intact to AIN/PIN/ulnar distributions Patient can actively flex elbow to 120 degrees, extend just past 90 SILT to medial/ulnar/radial distributions Palpable radial pulse IMAGING: - Reviewed by Dr. Jasso and myself - Demonstrates stable appearing cement mantle fracture around the humeral stem of previously placedtotal elbow arthroplasty. ASSESSMENT: Chantel Roy is a 84 year old female who presents for evaluation of RUE pain in setting of previous right total elbow replacement for multiple myeloma PLAN: -Had a long discussion with the placement regarding treatment options. She has evidence of cement mantle fracture around her humeral stem that are evident on imaging, this is likely an early sign of loosening. We discussed that there is no evidence of catastrophic hardware failure. With her multiple medical comorbidities, we discussed observation as a reasonable treatment option, for which the patient agreed - Follow up: 3 months with repeat R elbow films, forearm, wrist x3 views The patient was seen and examined with Dr. Gautam Jasso, who formulated the plan of care. Jet Richards MD PGY-1, [facility] Orthopaedic Surgery 05/23/2024 1:49 PM documented in this encounter Plan of Treatment Upcoming Encounters Date Type Department Care Team (Late st Contact Info) Description 06/01/2024 12:00 PM EDT Hem/Onc Treatment Hematology/Oncology Treatment, [place] [address] [facility], [place] [id number] Ritu, Chair 7 Hem Onc Scenery [address] [place], [place] [address] 06/08/2024 11:00 AM EDT Hem/Onc Treatment Hematology/Oncology Treatment, [place] [address] [facility], [place] [address] Ritu, Chair 1 Hem Onc Scenery [address] [place], [place] [address] 06/15/2024 11:00 AM EDT Laboratory Laboratory Scenery Ritu [place] [address] [place], [place] [address] Ritu, Lab Scenery [address] [place], [place] [address] 06/15/2024 12:00 PM EDT Hem/Onc Treatment Hematology/Oncology Treatment, [place] [address] [facility], [place] [address] Ritu, Chair 6 Hem Onc Scenery [address] [place], [place] [address] 06/22/2024 11:00 AM EDT Laboratory Laboratory Scenery [place] [address] [place] [address] Ritu, Lab Scenery [address] [place] [address] 06/22/2024 12:00 PM EDT Hem/Onc Treatment Hematology/Oncology Treatment, [place] [address] [facility], [place] [address] Ritu, Chair 1 Hem Onc Scenery [address] [place] [address] 06/29/2024 11:00 AM EDT Laboratory Laboratory [facility] [address] [place] [address] Ritu, Lab Scenery [address] [place] [address] 06/29/2024 12:00 PM EDT Hem/Onc Treatment Hematology/Oncology Treatment, [place] [address] [place] [place] [address] Ritu, Chair 10 Hem Onc Scenery [address] [place] [address] 07/06/2024 11:10 AM EDT Laboratory Laboratory [facility] [address] [place] [address] Ritu, Lab Scenery [address] [place] [address] 07/06/2024 12:30 PM EDT Hem/Onc Treatment Hematology/Oncology Treatment, [place] [address] [place] [place] [address] Ritu, Chair 4 Hem Onc Scenery [address] [place] [address] 07/13/2024 11:00 AM EDT Laboratory Laboratory [facility] [place] [address] [place] [address] Ritu, Lab Scenery [address] [place] [address] 07/13/2024 11:30 AM EDT Office Visit Hematology/Oncology [facility] [place] [address] [place], [place] [address] [facility] [address] [facility] [place] [address] 07/13/2024 12:00 PM EDT Hem/Onc Treatment Hematology/Oncology Treatment, [place] [address] [place] [address] 08/20/2024 3:30 PM EDT Office Visit Orthopaedics, [place] [address] [place] [address] Gautam Jasso MD [address] [place] [address] Health Maintenance Due Date Last Done Comments [...] shot) (#1) 2024 09/04/2016 GFR 05/24/2025 05/24/2024, 0701/2024, 05/11/2024, Additional history exists Pneumococcal Vaccine: 65+ [...] this encounter Medical Devices Implanted Type Area Captain/Airline Pilot Device Identifier Shelf Expiration Date Model / Serial / Lot Screw Elbow Humeral Total - [id number] Implanted:Qty: 1 on 12/23/2018 by Gautam Jasso MD [place] [facility] Right: Upper Arm [employer] 09/13/2027 00-8400-090 -00 / / [id number] Deisi Nexel Total Elbow Implanted:Qty: 1 on 12/23/2018 by Gautam Jasso MD at [place] [facility] Right: Upper Arm 04/13/20238400-095 -00 / / [id number] Cement Antibiotic Bone - [id number] Implanted:Qty: 1 on 12/23/2018 by Gautam Jasso MD at [place] [facility] Right: Upper Arm RENY : ORTHOPAEDICS 05/13/2020 6197-9-010 / / [id number] Cement Antibiotic Bone - [id number] Implanted:Qty: 1 on 12/23/2018 by Gautam Jasso MD at [place] [facility] Right: Upper Arm RENY : ORTHOPAEDICS 05/13/2020 6197-9-010 / / [id number] Stem Compr Srs Mod [id number] - [id number] Implanted:Qty: 1 on 12/23/2018 by Gautam Jasso MD at [place] [facility] Right: Upper Arm BIOMET : TRAUMA 01/28/2027 [id number] / / [id number] Deisi Nexel Total Elbow Ulnar Component Implanted:Qty: 1 on 12/23/2018 by Gautam Jasso MD at [place] [facility] Right: Upper Arm 07/14/20258400-025 -07 / / [id number] Comprehensive Srs/Nexel Distal Body Implanted:Qty: 1 on 12/23/2018 by Gautam Jasso MD at [place] [facility] Right: Upper Arm 03/03/2028 [id number] / / [id number] Valve Ricky 3 Ultra 26mm - [id number] Implanted:Qty: 1 on 05/27/2022 by Jesús Weber MD at [facility] [employer] [id number] 03/17/2023 [id number] / / Port Implant W/8f Poly Cath - [id number] Implanted:Qty: 1 on 12/29/2022 by Sudhir Lovett DO at OR [facility] Right: Chest CR BARD : PERIPHERAL VASCULAR [id number] 02/12/2024 [id number] / / [id number] documented as of this encounter Procedures Procedure Name Priority Date/Time Associated Diagnosis Comments XR WRIST 3 OR MORE VIEWS Routine 05/23/2024 2:35 PM EDT Multiple myeloma not having achieved remission (HCC) XR HAND 3 OR MORE VIEWS Routine 05/23/2024 2:35 PM EDT Multiple myeloma not having achieved remission (HCC) XR FOREARM 2 VIEWS STAT 05/23/2024 2: 35 PM EDT Multiple myeloma not having achieved [...] Jet Richards MD RADIOLOGY (R AD GENERAL) * XR HAND 3 OR MORE VIEWS (05/23/2024 2:35 PM EDT) Anatomical Region Laterality Modality Upper Extremity, Hand Computed R adiography 05/23/2024 5:37 PM EDT Impressions 05/23/2024 5:35 [...] Jet Richards MD RADIOLOGY (R AD GENERAL) * XR FOREARM 2 VIEWS (05/23/2024 2:35 PM EDT) Anatomical Region Laterality Modality Upper Extremity, Forearm Compute d Radiography 05/23/2024 5:37 PM EDT Impressions 05/23/2024 [...] (R AD GENERAL) documented in this encounter Visit Diagnoses Diagnosis Multiple myeloma not having achieved remission (HCC)- Primary Multiple myeloma, without mention of having achieved remission documented in this encounter Advance Directives Documents on File Type Date Recorded Patient Security Supervisor Expl anation Power of Salesperson Handbags 12/12/2018 8:46 AM Vipin viveros Power of Salesperson Handbags Power of Salesperson Handbags 12/12/2018 8:45 AM Zuleyma ferguson Power of Salesperson Handbags * Full Code (Latest Code Status on [...] the patient have Health Care Power of Salesperson Handbags? Yes, not currently available * Full Code Date Activated Date Inactivated Comments 11/21/2018 8:53 AM 11/21/2018 2:27 PM This order ref lects the patients wishes and were consensually agreed upon. Care Teams Fresh Meat Grader Relationship Specialty Start Date End Date Sachi Soni MD [address] [place] [facility] [address] PCP - General Family Medicine 05/08/24 documented as of this encounter
--- OUTSIDE RECORDS SUMMARY | 2024-07-01 14:39 | External Medical Summary | Summary of Care ---
Author Name Unknown Organization [facility] Address [address] [place] [address] Phone [phone] Care Team Providers Care Hvac Project Manager Name Role Phone Sachi Soni MD Primary Care Provider [phone] Encounter Details Date Type Department Care Team (Latest Contact Info) Description 05/23/2024 2:07 PM EDT - 05/23/2024 11:59 PM EDT Hospital Encounter Radiology, [place] [address] [place] [address] Arrived Discharge Disposition: Home - [...] day. 30 Tab 12/25/2018 Active nystatin (NYSTOP) 137802 UNIT/GM powder Apply topically to affected area [...] Description 05/25/2024 11:00 AM EDT Laboratory Laboratory [facility] [place] [address] [place] [phone] Ritu, Lab Scenery [address] [facility] [place], [place] [address] 05/25/2024 12:00 PM EDT Hem/Onc Treatment Hematology/Oncology Treatment, [place] [address] [facility], [place] [address] Ritu, Chair 3 Hem Onc Scenery [address] [place] [address] 06/01/2024 11:00 AM EDT Laboratory Laboratory [facility] [place] [address] [place] [address] Ritu, Lab Scenery [address] [facility] [place], [place] [address] 06/01/2024 12:00 PM EDT Hem/Onc Treatment Hematology/Oncology Treatment, [place] [address] [facility] [place], [place] [address] Ritu, Chair 7 Hem Onc Scenery [address] [place] [address] 06/08/2024 10:00 AM EDT Laboratory Laboratory [facility] [place] [address] [place] [address] Ritu, Lab Scenery [address] [facility] [place] [address] 06/08/2024 11:00 AM EDT Hem/Onc Treatment Hematology/Oncology Treatment, [place] [address] [place] [address] Ritu, Chair 1 Hem Onc Scenery [address] [place] [address] 06/15/2024 11:00 AM EDT Laboratory Laboratory Scenery [place] [address] [place] [address] Ritu, Lab Scenery [address] [place] [address] 06/15/2024 12:00 PM EDT Hem/Onc Treatment Hematology/Oncology Treatment, [place] [address] [place] [address] Ritu, Chair 6 Hem Onc Scenery [address] [place] [address] 06/22/2024 11:00 AM EDT Laboratory Laboratory [facility] [place] [address] [place] [address] Ritu, Lab Scenery [address] [place] [address] 06/22/2024 12:00 PM EDT [facility] [address] [place] [address] Ritu, Chair 1 Hem Onc Scenery [address] [place] [address] 06/29/2024 11:00 AM EDT Laboratory Laboratory [facility] [place] [address] [place] [address] Ritu, Lab Scenery [address] [place] [address] 06/29/2024 12:00 PM EDT Hem/Onc Treatment Hematology/Oncology Treatment, [address] [place] [address] Ritu, Chair 10 Hem Onc Scenery [address] [place], [place] [address] 07/06/2024 11:10 AM EDT Laboratory Laboratory [facility] [place] [address] [place], [place] [address] Ritu, Lab Scenery [address] [place], [place] [address] 07/06/2024 12:30 PM EDT [facility] [address] [facility], [place] [address] Ritu, Chair 4 Hem Onc Scenery [address] [place], [place] [address] 07/13/2024 11:00 AM EDT Laboratory Laboratory [facility] [place] [address] [place], [place] [address] Ritu, Lab Scenery [address] [place], [place] [address] 07/13/2024 11:30 AM EDT Office Visit Hematology/Oncology [facility] [place] [address] [place], [place] [address] Mariana Florez CRNP [address] [place] [address] 07/13/2024 12:00 PM EDT [facility] [address] [facility], [place] [address] Health Maintenance Due Date Last Done Comments [...] this encounter Medical Devices Implanted Type Area Blacksmith Hammer Operator Device Identifier Shelf Expiration Date Model / Serial / Lot Screw Elbow Humeral Total - [id number] Implanted:Qty: 1 on 12/23/2018 by Gautam Jasso MD [place] [facility] Right: Upper Arm [employer] 09/13/20278400-090 -00 / / [id number] Deisi Nexel Total Elbow Implanted:Qty: 1 on 12/23/2018 by Gautam Jasso MD at [place] [facility] Right: Upper Arm 04/13/20238400-095 -00 / / [id number] Cement Antibiotic Bone - [id number] Implanted:Qty: 1 on 12/23/2018 by Gautam Jasso MD at [place] [facility] Right: Upper Arm RENY : ORTHOPAEDICS 05/13/2020 6197-9-010 / / [id number] Cement Antibiotic Bone - [id number] Implanted:Qty: 1 on 12/23/2018 by Gautam Jasso MD at [place] [facility] Right: Upper Arm RENY : ORTHOPAEDICS 05/13/2020 6197-9-010 / / [id number] Stem Compr Srs Mod [id number] - [id number] Implanted:Qty: 1 on 12/23/2018 by Gautam Jasso MD at [place] [facility] Right: Upper Arm BIOMET : TRAUMA 01/28/2027 [id number] / / [id number] Deisi Nexel Total Elbow Ulnar Component Implanted:Qty: 1 on 12/23/2018 by Gautam Jasso MD at [place] [facility] Right: Upper Arm 07/14/2025 00-8400-025 -07 / / [id number] Comprehensive Srs/Nexel Distal Body Implanted:Qty: 1 on 12/23/2018 by Gautam Jasso MD at [place] [facility] Right: Upper Arm 03/03/2028 [id number] / / [id number] Valve Ricky 3 Ultra 26mm - [id number] Implanted:Qty: 1 on 05/27/2022 by Jesús Weber MD at [facility] [employer] [id number] 03/17/2023 [id number] / / Port Implant W/8f Poly Cath - [id number] Implanted:Qty: 1 on 12/29/2022 by Sudhir Lovett DO at OR [facility] Right: Chest CR BARD : PERIPHERAL VASCULAR [id number] 02/12/2024 [id number] / / [id number] documented as of this encounter Procedures Procedure Name Priority Date/Time Associated Diagnosis Comments XR HAND 3 OR MORE VIEWS Routine 05/23/2024 2:35 PM EDT Multiple myeloma not having achieved remission (HCC) documented in this encounter Results * XR HAND 3 OR MORE VIEWS [...] Documents on File Type Date Recorded Patient Motor Operator Expl anation Power of Guide [place] 12/12/2018 8:46 AM Vipin viveros Power of Guide Alpine Power of Guide Alpine 12/12/2018 8:45 AM Zuleyma ferguson Power of Guide Alpine * Full Code (Latest Code Status on [...] the patient have Health Care Power of Guide Alpine? Yes, not currently available * Full Code Date Activated Date Inactivated Comments 11/21/2018 8:53 AM 11/21/2018 2:27 PM This order ref lects the patients wishes and were consensually agreed upon. Care Teams Hvac Project Manager Relationship Specialty Start Date End Date Sachi Soni MD [address] [place] [address] PCP - General Family Medicine 05/08/24 documented as of this encounter
--- OUTSIDE RECORDS SUMMARY | 2024-07-01 14:39 | External Medical Summary | Summary of Care ---
Author Name Unknown Organization [facility] [address] [facility] [address] Phone [phone] Care Team Providers Care Loan Servicing Representative Name Role Phone Sachi Soni MD Primary Care Provider [phone] Encounter Details Date Type Department Care Team (Late st Contact Info) Description 05/25/2024 Orders Only Hematology/Oncology [facility] [place] [address] Shelbi Florez CRNP [address] [place] [address] Multiple myeloma not having [...] day. 30 Tab 12/25/2018 Active nystatin (NYSTOP) 497387 UNIT/GM powder Apply topically to affected area [...] encounter Miscellaneous Notes * Addendum Note - Shelbi Florez CRNP - 05/25/2024 1:17 PM EDTAddended by: SHELBI FLOREZ on: 05/25/2024 01:17 PM Modules accepted: Orders documented in this encounter Plan of Treatment Upcoming Encounters Date Type Department Care Team (Late st Contact Info) Description 06/01/2024 12:00 PM EDT [facility] 200 [facility] [place] [phone] Ritu, Chair 7 Hem Onc [address] [place] [address] 06/08/2024 11:00 AM EDT Hem/Onc Treatment Hematology/Oncology Treatment [place] 200 [facility] [place] [phone] Ritu, Chair 1 Hem Onc [place] [address] [place] [address] 06/15/2024 11:00 AM EDT Laboratory Laboratory [facility] Ritu [place] [address] [place] [phone] Ritu, Lab [place] [address] [place] [address] 06/15/2024 12:00 PM EDT Hem/Onc Treatment Hematology/Oncology Treatment, [place] 200 [place] [address] Ritu, Chair 6 Hem Onc Sc[place]ery [address] [place] [address] 06/22/2024 11:00 AM EDT Laboratory Laboratory [place] [address] [place] [address] Ritu, Lab Scenery [address] [place] [address] 06/22/2024 12:00 PM EDT Hem/Onc Treatment Hematology/Oncology Treatment, [place] 200 [place] [address] Ritu, Chair 1 Hem Onc Scen[address] [place], [place] [address] 06/29/2024 11:00 AM EDT Laboratory Laboratory Sc[place]ery Ritu [place] [address] [place], [place] [address] Ritu, Lab Scenery [address] [place] [address] 06/29/2024 12:00 PM EDT Hem/Onc Treatment Hematology/Oncology Treatment, [place] 200 [place] [address] Ritu, Chair 10 Hem Onc Scenery [address] [place] [address] 07/06/2024 11:10 AM EDT Laboratory Laboratory [place] [address] [place] [address] Ritu, Lab Scenery [address] [place] [address] 07/06/2024 12:30 PM EDT Hem/Onc Treatment Hematology/Oncology Treatment, [place] 200 [place] [address] Ritu, Chair 4 Hem Onc Scenery [address] [place], [place] [address] 07/13/2024 11:00 AM EDT Laboratory Laboratory [facility] [address] [place] [phone] [facility] 200 [facility] [place], [place] [address] 07/13/2024 11:30 AM EDT Office Visit Hematology/Oncology [facility] [place] [address] [place] [phone] Shelbi Florez CRNP [address] [place] [address] 07/13/2024 12:00 PM EDT Hem/Onc Treatment Hematology/Oncology [facility], [place] [address] [facility] [phone] 08/20/2024 3:30 PM EDT Office Visit Orthopaedics, [place] [address] [place] [address] Gautam Jasso MD [address] [place] [address] Scheduled Orders Name Type Priority Associated Diagnoses [...] (HCC) Cancer related pain Ordered: 05/25/2024 XR SHOULDER, 2 OR MORE VIEWS Medical Imaging Routine Multiple [...] this encounter Medical Devices Implanted Type Area Stripping Shovel Oiler Device Identifier Shelf Expiration Date Model / Serial / Lot Screw Elbow Humeral Total - [id number] Implanted:Qty: 1 on 12/23/2018 by Gautam Jasso MD [place] [facility] [place]: Upper Arm [employer] 09/13/20278400-090 -00 / / [id number] Deisi Nexel Total Elbow Implanted:Qty: 1 on 12/23/2018 by Gautam Jasso MD [place] [facility] [place] Right: Upper Arm 04/13/20238400-095 -00 / / [id number] Cement Antibiotic Bone - [id number] Implanted:Qty: 1 on 12/23/2018 by Gautam Jasso MD at [place] [facility] [place] Right: Upper Arm RENY : ORTHOPAEDICS 05/13/2020 6197-9-010 / / [id number] Cement Antibiotic Bone - [id number] Implanted:Qty: 1 on 12/23/2018 by Gautam Jasso MD at [place] [facility] Right: Upper Arm RENY : ORTHOPAEDICS 05/13/2020 6197-9-010 / / [id number] Stem Compr Srs Mod [id number] - [id number] Implanted:Qty: 1 on 12/23/2018 by Gautam Jasso MD at [place] [facility] [place] Right: Upper Arm BIOMET : TRAUMA 01/28/2027 [id number] / / [id number] Deisi Nexel Total Elbow Ulnar Component Implanted:Qty: 1 on 12/23/2018 by Gautam Jasso MD at [place] [facility] [place] Right: Upper Arm 07/14/2025 00-8400-025 -07 / / [id number] Comprehensive Srs/Nexel Distal Body Implanted:Qty: 1 on 12/23/2018 by Gautam Jasso MD at [place] [facility] [place] Right: Upper Arm 03/03/2028 [id number] / / [id number] Valve Ricky 3 Ultra 26mm - [id number] Implanted:Qty: 1 on 05/27/2022 by Jesús Weber MD at [facility]ARDIAC LABS [facility] [employer] [id number] 03/17/2023 [id number] / / Port Implant W/8f Poly Cath - [id number] Implanted:Qty: 1 on 12/29/2022 by Sudhir Lovett DO at OR [facility] Right: Chest CR BARD : PERIPHERAL VASCULAR [id number] 02/12/2024 [id number] / / [id number] documented as of this encounter Visit Diagnoses Diagnosis Multiple myeloma not having achieved remission (HCC)- Primary Multiple myeloma, without mention of having achieved remission Cancer related pain Neoplasm related pain (acute) (chronic) documented in this encounter Advance Directives Documents on File Type Date Recorded Patient Unloading Checker Expl anation Power of Paper Machine Back Tender 12/12/2018 8:46 AM Vipin viveros Power of Paper Machine Back Tender Power of Paper Machine Back Tender 12/12/2018 8:45 AM Zuleyma ferguson Power of Paper Machine Back Tender * Full Code (Latest Code Status on [...] the patient have Health Care Power of Paper Machine Back Tender? Yes, not currently available * Full Code Date Activated Date Inactivated Comments 11/21/2018 8:53 AM 11/21/2018 2:27 PM This order ref lects the patients wishes and were consensually agreed upon. Care Teams Loan Servicing Representative Relationship Specialty Start Date End Date Sachi Soni MD [address] [place] [facility] [place] [address] PCP - General Family Medicine 05/08/24 documented as of this encounter
--- OUTSIDE RECORDS SUMMARY | 2024-07-01 14:39 | External Medical Summary ---
Author Name Unknown Address Unknown Organization K01:LABORATORY [place] [address] [facility] [address] Laboratory Report Ordering Provider Test Date Status WOOD CANTU 05/24/2024 14:24:27 Final Observation Date Value Abnormality Reference (Units ) Status WBC, Total 05/24/2024 14:24:27 2.44 Below low normal 4. 00-10.80 (K/uL) Final RBC 05/24/2024 14:24:27 3.41 3.85-5.15 (M/uL) Final Hemoglobin 05/24/2024 14:24:27 10.2 Below low normal 12 .0-15.3 (g/dL) Final HCT 05/24/2024 14:24:27 32.1 Below low normal 36. 0-45.2 (%) Final MCV 05/24/2024 14:24:27 94.1 81.5-97.5 (fL) Final MCH 05/24/2024 14:24:27 29.9 27.0-34.0 (pg) Final MCHC 05/24/2024 14:24:27 31.8 32.0-36.0 (g/dL) Final RDW 05/24/2024 14:24:27 18.6 11.5-15.5 (%) Final Platelets 05/24/2024 14:24:27 114 Below low normal 140 -400 (K/uL) Final MPV 05/24/2024 14:24:27 Final No result - abnormal platele t distribution. Nucleated erythrocytes/100 l eukocytes [Ratio] in Blood by Automated count 05/24/2024 14:24:27 0 <=0 (/100 WBCs) Final Performing Location [facility] [place] [facility] [place] [address]
--- OUTSIDE RECORDS SUMMARY | 2024-07-01 14:39 | External Medical Summary | Summary of Care ---
Author Name Unknown Organization [facility] Address [address] [facility] [place] [address] Phone [phone] Care Team Providers Care Merchandise Clerk Name Role Phone Sachi Soni MD Primary Care Provider Reason for Visit * Reason Comments Chemotherapy Cytoxan/Darzalex Fas pro * Episode Based Medications (Routine) - Authorized Specialty Diagnoses / Procedures Referred By Contac t Referred To Contact Diagnoses Multiple myeloma not having achieved remission (HCC) Procedures IN DARATUMUMAB, HYALURONIDASE IN CYCLOPHOSPHAMIDE 100 MG INJ IN INJ, CYCLOPHOSPHAMIDE, NOS Jorge Allen MD [address] [place] [address] Anc Hem/Onc [facility] DEPT CLOSED - 09/27/23 [address] [place] [address] Referral ID Status Reason Start Date Expiration Date V isits Requested Visits Authorized [id number] Authorized 07/23/2022 11/13/2099 999 99 Encounter Details Date Type Department Care Team (Latest Contact Info) Description 05/25/2024 12:00 PM EDT Hem/Onc Treatment Hematology/Oncolog y Treatment, [place] [address] [place] [address] Ritu, Chair 3 Hem Onc Scenery [address] [place] [address] Multiple myeloma not having achieved remission (HCC)*; [...] day. 30 Tab 12/25/2018 Active nystatin (NYSTOP) 105331 UNIT/GM powder Apply topically to affected area [...] 12:00 PM EDT Hem/Onc Treatment Hematology/Oncology Treatment, [place] 200 [facility], [place] [address] Ritu, Chair 7 Hem Onc Scenery [address] [place], [place] [address] 06/08/2024 11:00 AM EDT Hem/Onc Treatment Hematology/Oncology Treatment, [place] 200 [facility], [place] [address] Ritu, Chair 1 Hem Onc Scenery [address] [place], [place] [address] 06/15/2024 11:00 AM EDT Laboratory Laboratory [facility] [place] [address] [place], [place] [address] Ritu, Lab Scenery [address] [place], [place] [address] 06/15/2024 12:00 PM EDT Hem/Onc Treatment Hematology/Oncology Treatment, [place] [address] [facility], [place] [address] Ritu, Chair 6 Hem Onc Scenery [address] [place], [place] [address] 06/22/2024 11:00 AM EDT Laboratory Laboratory [facility] [place] [address] [place] [address] Ritu, Lab Scenery [address] [place] [address] 06/22/2024 12:00 PM EDT Hem/Onc Treatment Hematology/Oncology Treatment, [place] 200 [place] [address] Ritu, Chair 1 Hem Onc Scenery [address] [place], [place] [address] 06/29/2024 11:00 AM EDT Laboratory Laboratory [facility] [address] [place], [place] [address] Ritu, Lab Scenery [address] [place], [place] [address] 06/29/2024 12:00 PM EDT [facility] [address] [facility], [place] [address] Ritu, Chair 10 Hem Onc [address] [place], [place] [address] 07/06/2024 11:10 AM EDT Laboratory Laboratory [facility] [address] [place], [place] [address] Ritu, Lab Scenery [address] [place], [place] [address] 07/06/2024 12:30 PM EDT Hem[facility] [address] [facility], [place] [address] Ritu, Chair 4 Hem Onc Scenery [address] [place], [place] [address] 07/13/2024 11:00 AM EDT Laboratory Laboratory [facility] Ritu [place] [address] [place], [place] [address] Ritu, Lab Scenery [address] [place] [address] 07/13/2024 11:30 AM EDT Office Visit Hematology/Oncology [facility] [place] [address] [place], [place] [address] Mariana Florez CRNP [address] [facility] [place] [address] 07/13/2024 12:00 PM EDT Hem/Onc Treatment Hematology/Oncology Treatment, [place] [address] [place] [address] 08/20/2024 3:30 PM EDT Office Visit Orthopaedics, [place] [address] [place] [address] Gautam Jasso MD [address] [place] [address] Health Maintenance Due Date Last Done Comments [...] shot) (#1) 2024 09/04/2016 GFR 05/24/2025 05/24/2024, 01/2024, 05/11/2024, Additional history exists Pneumococcal Vaccine: [...] this encounter Medical Devices Implanted Type Area Aquatic Director Device Identifier Shelf Expiration Date Model / Serial / Lot Screw Elbow Humeral Total - [id number] Implanted:Qty: 1 on 12/23/2018 by Gautam Jasso MD [place] [facility]: Upper Arm [employer] 09/13/2027 00-8400-090 -00 / / [id number] Deisi Nexel Total Elbow Implanted:Qty: 1 on 12/23/2018 by Gautam Jasso MD [place] [facility] [place]: Upper Arm 04/13/2023-8400-095 -00 / / [id number] Cement Antibiotic Bone - [id number] Implanted:Qty: 1 on 12/23/2018 by Gautam Jasso MD [place] [facility] [place]: Upper Arm RENY : ORTHOPAEDICS 05/13/2020 6197-9-010 / / [id number] Cement Antibiotic Bone - [id number] Implanted:Qty: 1 on 12/23/2018 by Gautam Jasso MD [place] [facility] [place]: Upper Arm RENY : ORTHOPAEDICS 05/13/2020 6197-9-010 / / [id number] Stem Compr Srs Mod [id number] - [id number] Implanted:Qty: 1 on 12/23/2018 by Gautam Jasso MD [place] [facility] [place]: Upper Arm BIOMET : TRAUMA 01/28/2027 [id number] / / [id number] Deisi Nexel Total Elbow Ulnar Component Implanted:Qty: 1 on 12/23/2018 by Gautam Jasso MD [place] [facility] [place]: Upper Arm 07/14/20258400-025 -07 / / [id number] Comprehensive Srs/Nexel Distal Body Implanted:Qty: 1 on 12/23/2018 by Gautam Jasso MD [place] [facility] [place]: Upper Arm 03/03/2028 [id number] / / [id number] Valve Ricky 3 Ultra 26mm - [id number] Implanted:Qty: 1 on 05/27/2022 by Jesús Weber MD at [facility] [employer] [id number] 03/17/2023 [id number] / / Port Implant W/8f Poly Cath - [id number] Implanted:Qty: 1 on 12/29/2022 by Sudhir Lovett DO at OR [facility] Right: Chest CR BARD : PERIPHERAL VASCULAR [id number] 02/12/2024 [id number] / / [id number] documented as of this encounter Visit Diagnoses [...] ONCE PRN Other, Hypersensitivity Reaction, Starting on Tue05/25/24 at 1219, Until 05/26/24 at 1218, For 24 hours EPINEPHrine 1 MG/ML inj 0.3 mg 0.3 mg, Intramuscular, ONCE PRN Other, Hypersensitivity Reaction or Anaphylaxis, Starting on Tue05/25/24 at 1219, Until 05/26/24 at 1218, For 24 hours hEParin 100 UNIT/ML Lock Flush inj 500 Units 500 Units (5 mL), IV Lock, PRN Other, IV Flush, Starting on Tue05/25/24 at 1219, Until 05/26/24 at 1218, For 24 hours, Do not flush if lock, PICC, or central line not in place; IV infusing or unable to flush. Given 05/25/2024 1:50 PM EDT 500 Units Hydrocortisone Sod Suc (PF) (Solu-Cortef) inj 100 mg 100 mg, IV Push, ONCE PRN Other, Hypersensitivity Reaction, Starting on Tue05/25/24 at 1219, Until 05/26/24 at 1218, For 24 hours meperidine (Demerol) 25 MG/ML inj 25 mg 25 mg, IV Push, ONCE PRN Shivering, Starting on Tue05/25/24 at 1219, Until 05/26/24 at 1218, For 24 hours sodium chloride 0.9 % flush central line 10 mL 10 mL, IV Push, PRN Other, IV Flush, Starting on Tue05/25/24 at 1219, Until 05/26/24 at 1218, For 24 hours, Do not flush if lock, PICC, or central line not in place; IV infusing or unable to flush. Given 05/25/2024 1:50 PM EDT 10 mL Inactive Administered Medications [...] 1:05 PM EDT 620 mg 516.2 mL/hr Daratumumab-hyaluronidas e-fihj (Darzalex Faspro) 1800 mg-76219 units/ 15 ml subcut inj 15 mL, Subcutaneous, ONCE, On Tue05/25/24 at 1400, For 1 dose, Inject subcutanteously into abdomen over 3 to 5 minutes Given 05/25/2024 1:01 PM EDT 15 mL Abdomen Right Lower diphenhydrAMINE (Benadryl) cap 50 mg 50 mg, Oral, ONCE, On Tue05/25/24 at 1245, For 1 dose Given 05/25/2024 12:32 PM EDT 50 mg NSS infusion FOR HYDRATION Intravenous, at 50 mL/hr Administer over 10 Hours, ONCE, 1 dose, On Tue05/25/24 at 1300 Start Infusion 05/25/2024 12:34 PM EDT 500 mL 50 mL/hr ondansetron (Zofran) tab 8 mg 8 mg, Oral, ONCE, On Tue05/25/24 at 1245, For 1 dose Given 05/25/2024 12:32 PM EDT 8 mg documented in this encounter Advance Directives Documents on File Type Date Recorded Patient Pick Up Man Expl anation Power of Meter Installer And Remover 12/12/2018 8:46 AM Vipin viveros Power of Meter Installer And Remover Power of Meter Installer And Remover 12/12/2018 8:45 AM Zuleyma ferguson Power of Meter Installer And Remover * Full Code (Latest Code Status on [...] the patient have Health Care Power of Meter Installer And Remover? Yes, not currently available * Full Code Date Activated Date Inactivated Comments 11/21/2018 8:53 AM 11/21/2018 2:27 PM This order ref lects the patients wishes and were consensually agreed upon. Care Teams Merchandise Clerk Relationship Specialty Start Date End Date Sachi Soni MD [address] [facility] [place] [address] PCP - General Family Medicine 05/08/24 documented as of this encounter
--- OUTSIDE RECORDS SUMMARY | 2024-07-01 14:39 | External Medical Summary | Summary of Care ---
Author Name Unknown Organization [facility] Address [address] [facility] [place] [address] Phone [phone] Care Team Providers Care Observer Helper Name Role Phone Kulwinder Byers MD Primary Care Provider [phone] Reason for Visit * Reason Comments Chemotherapy Cytoxan/Darzalex Fas pro * Episode Based Medications (Routine) - Authorized Specialty Diagnoses / Procedures Referred By Contac t Referred To Contact Diagnoses Multiple myeloma not having achieved remission (HCC) Procedures ME DARATUMUMAB, HYALURONIDASE ME CYCLOPHOSPHAMIDE 100 MG INJ ME INJ, CYCLOPHOSPHAMIDE, NOS Jorge Allen MD [address] [place] [address] Anc Hem/Onc [facility] DEPT CLOSED - 09/27/23 [address] [place] [address] Referral ID Status Reason Start Date Expiration Date V isits Requested Visits Authorized [id number] Authorized 07/23/2022 11/13/2099 999 99 Encounter Details Date Type Department Care Team (Latest Contact Info) Description 04/20/2024 12:00 PM EDT Hem/Onc Treatment Hematology/Oncolog y Treatment, [place] [address] [place] [address] Ritu, Chair 5 Hem Onc Scenery [address] [place] [address] Multiple myeloma not having achieved remission (HCC)*; [...] day. 30 Tab 12/25/2018 Active nystatin (NYSTOP) 399309 UNIT/GM powder Apply topically to affected area [...] once a week 60 Tablet 1 10/21/2023 4 Discontinue d(Refill) oxyCODONE HCl 5 MG Oral Tablet (Oxy IR)Indications:Mul tiple myeloma not having achieved remission (HCC),Cancer related pain Take 1 Tablet by mouth every 6 hours as needed for Pain, Breakthrough. 60 Tablet 03/08/2024 4 Discontinue d(Refill) documented as of this [...] Date Smoking Tobacco: Never Smokeless Tobacco: Never Tobacco Cessation:Counseling Given: Not Answered Alcohol Use Standard Drinks/Week Comments No 0 [...] Sign Reading Time Taken Comments Blood Pressure 94/61 04/20/2024 12:22 PM EDT Pulse 93 04/20/2024 12:22 PM EDT Temperature 36.5 C (97.7 F) 04/20/2024 12:22 PM E DT Respiratory Rate 16 04/20/2024 12:22 PM EDT Oxygen Saturation 94% 04/20/2024 12:22 PM EDT Inhaled Oxygen Concentration - - [...] Nursing Notes * Sandi Avila, RN - 04/20/2024 3:21 PM EDT Goals: Patient will remain free from injury. Possible barriers to meeting goals: ambulating with IV pole, age, use of wheelchair for longer distances Stability of the patient: Moderately stable - low risk of patient condition declining or worsening Summary regarding today's goals: Met: pt remained free of harm today Patient tolerated treatment well without any acute issues or problems. Patient left facility in stable condition and denied any further needs. * Sandi Avila RN - 04/20/2024 3:09 PM EDT Chair 6. Port accessed. Labs reviewed with Dr. Allen -- okay to treat with platelets 91. Patient is feeling well without issues or complaints. Chemotherapy/Immunotherapy agents: CYTOXAN and DARZALEX Consent for chemotherapy drug treatment complete, dated, and signed? yes, date - 11/11/2022 Treatment lab parameters met? Yes Has treatment weight changed > than 10%? No Treatment preauthorized? Yes VITALS Filed Vitals: 04/20/24 1222 BP: 94/61 Pulse: 93 Resp: 16 Temp: 36.5 C (97.7 F) TempSrc: Tympanic SpO2: 94% Urine protein: N/A Patient education completed for [...] NEURO: denies symptoms CV/RESP: denies symptoms GI/: diarrhea: occasional but overall much improved from before when she had a GIB OTHER: denies any additional symptoms PAIN: 0 Safety and Risk for Injury Patient will remain free from injury. Ensure appropriate safety devices are available. Provide and maintain safe environment. documented in this encounter Plan of Treatment Upcoming Encounters Date Type Department Care Team (Late st Contact Info) Description 05/25/2024 11:00 AM EDT Laboratory Laboratory [facility] [place] [address] [place] [address] [place], Lab Scenery [address] [place] [address] 05/25/2024 12:00 PM EDT Hem/Onc Treatment Hematology/Oncology Treatment, [place] [address] [facility] [place] [facility] [address] Park, Chair 3 Hem Onc Scenery [address] [place] [address] 06/01/2024 11:00 AM EDT Laboratory Laboratory Scenery [facility] [address] [place] [address] Ritu, Lab Scenery [address] [place] [address] 06/01/2024 12:00 PM EDT Hem/Onc Treatment Hematology/Oncology Treatment, [place] [address] [facility] [address] Ritu, Chair 7 Hem Onc Scenery [address] [place] [address] 06/08/2024 10:00 AM EDT Laboratory Laboratory [facility] [place] [address] [place] [address] Ritu, Lab Scenery [address] [place] [address] 06/08/2024 11:00 AM EDT [facility] [address] [facility] [place] [facility] [address] Ritu, Chair 1 Hem Onc Scenery [address] [place] [address] 06/15/2024 11:00 AM EDT Laboratory Laboratory [facility] [place] [address] [place] [address] Ritu, Lab Scenery [address] [place] [address] 06/15/2024 12:00 PM EDT Hem/Onc Treatment Hematology/Oncology Treatment, [place] [address] [facility] [place] [facility] [address] Ritu, Chair 6 Hem Onc Scenery [address] [place] [address] 06/22/2024 11:00 AM EDT Laboratory Laboratory Scenery [place] [address] [place] [address] Ritu, Lab Scenery [address] [place] [address] 06/22/2024 12:00 PM EDT Hem/Onc Treatment Hematology/Oncology Treatment, [place] [address] [facility], [place] [address] Ritu, Chair 1 Hem Onc Scenery [address] [place], [place] [address] 06/29/2024 11:00 AM EDT Laboratory Laboratory Sc[address]ery [place] [address] [place], [place] [address] Ritu, Lab Scenery [address] [place] [address] 06/29/2024 12:00 PM EDT Hem/Onc Treatment Hematology/Oncology Treatment, [place] [address] [facility] [place] [facility] [address] Ritu, Chair 10 Hem Onc Scenery [address] [place] [address] 07/06/2024 11:10 AM EDT Laboratory Laboratory Scenery Ritu [place] [address] [place] [address] Ritu, Lab Scenery [address] [place] [address] 07/06/2024 12:30 PM EDT Hem/Onc Treatment Hematology/Oncology Treatment, [place] [address] [facility] [place] [facility] [address] Ritu, Chair 4 Hem Onc [facility] [address] [facility] [place], [place] [address] 07/13/2024 11:00 AM EDT Laboratory Laboratory [facility] [address] [facility] [place] [address] [place], Lab [facility] [address] [facility] [place], [place] [address] 07/13/2024 11:30 AM EDT Office Visit Hematology/Oncology [facility] [address] [facility] [place], [place] [address] Mariana Florez CRNP [address] [place] [address] 07/13/2024 12:00 PM EDT Hem/Onc Treatment Hematology/Oncology Treatment, [place] [address] [facility] [address] Health Maintenance Due Date Last Done [...] this encounter Medical Devices Implanted Type Area Pouch Making Machine Operator Device Identifier Shelf Expiration Date Model / Serial / Lot Screw Elbow Humeral Total - [id number] Implanted:Qty: 1 on 12/23/2018 by Gautam Jasso MD at [place] [facility] Right: Upper Arm [employer] 09/13/2027 / / [id number] Deisi Nexel Total Elbow Implanted:Qty: 1 on 12/23/2018 by Gautam Jasso MD at OR [facility] Right: Upper Arm 04/13/2023 / / [id number] Cement Antibiotic Bone - [id number] Implanted:Qty: 1 on 12/23/2018 by Gautam Jasso MD at OR [facility] Right: Upper Arm RENY : ORTHOPAEDICS 05/13/2020 6197-9-010 / / [id number] Cement Antibiotic Bone - [id number] Implanted:Qty: 1 on 12/23/2018 by Gautam Jasso MD at OR [facility] Right: Upper Arm RENY : ORTHOPAEDICS 05/13/2020 6197-9-010 / / [id number] Stem Compr Srs Mod 7t392ic - [id number] Implanted:Qty: 1 on 12/23/2018 by Gautam Jasso MD at OR [facility] Right: Upper Arm BIOMET : TRAUMA 01/28/2027 [id number] / / [id number] Deisi Nexel Total Elbow Ulnar Component Implanted:Qty: 1 on 12/23/2018 by Gautam Jasso MD at OR [facility] Right: Upper Arm 07/14/202500-025 -07 / / [id number] Comprehensive Srs/Nexel Distal Body Implanted:Qty: 1 on 12/23/2018 by Gautam Jasso MD at OR [facility] Right: Upper Arm 03/03/2028 [id number] / / [id number] Valve Ricky 3 Ultra 26mm - [id number] Implanted:Qty: 1 on 05/27/2022 by Jesús Weber MD at CARDIAC LABS [facility] [employer] [id number] 03/17/2023 [id number] / / Port Implant W/8f Poly Cath - [id number] Implanted:Qty: 1 on 12/29/2022 by Sudhir Lovett DO at OR [facility] Right: Chest CR BARD : PERIPHERAL VASCULAR [id number] 02/12/2024 [id number] / / [id number] documented as of this encounter Visit Diagnoses Diagnosis Multiple myeloma not having achieved remission (HCC)- Primary Multiple myeloma, without mention of having achieved remission Encounter for antineoplastic chemotherapy documented in this encounter Administered Medications Inactive Administered Medications - up to 3 most recent administrations Medication Order MAR Action Action Date Dose Rate Site Acetaminophen (Tylenol) tab 650 mg 650 mg, Oral, ONCE, On Tue04/20/24 at 1315, For 1 dose, Maximum of 4 grams (4000 mg) per day. Given 04/20/2024 12:50 PM EDT 650 mg cycloPHOSphamide (Cytoxan) 620 mg in NSS 250 mL infusion 620 mg (rounded from 621 mg = 300 mg/m2 2.07 m2 Treatment Plan BSA from Recorded weight), IV Piggyback, at 516.2 mL/hr Administer over 30 Minutes, Cyclophosphamide doses over 1g should be in 500 mL. May extend infusion to 1 hour if not tolerated., ONCE, 1 dose, On Tue04/20/24 at 1315 Start Infusion 04/20/2024 1:37 PM EDT 620 mg 516.2 mL/hr Daratumumab-hyaluronida se-fihj (Darzalex Faspro) 1800 mg-48931 units/ 15 ml subcut inj 15 mL, Subcutaneous, ONCE, On Tue04/20/24 at 1415, For 1 dose, Inject subcutanteously into abdomen over 3 to 5 minutes Given 04/20/2024 1:37 PM EDT 15 mL Abdomen Left Lower diphenhydrAMINE (Benadryl) cap 50 mg 50 mg, Oral, ONCE, On Tue04/20/24 at 1315, For 1 dose Given 04/20/2024 12:50 PM EDT 50 mg hEParin 100 UNIT/ML Lock Flush inj 500 Units 500 Units (5 mL), IV Lock, PRN Other, IV Flush, Starting on Tue04/20/24 at 1239, Until Tue04/20/24 at 1925, For 24 hours, Do not flush if lock, PICC, or central line not in place; IV infusing or unable to flush. Given 04/20/2024 2:15 PM EDT 500 Units NSS infusion FOR HYDRATION Intravenous, at 50 mL/hr Administer over 10 Hours, ONCE, 1 dose, On Tue04/20/24 at 1315 Start Infusion 04/20/2024 12:51 PM EDT 500 mL 50 mL/hr ondansetron (Zofran) tab 8 mg 8 mg, Oral, ONCE, On Tue04/20/24 at 1315, For 1 dose Given 04/20/2024 12:50 PM EDT 8 mg sodium chloride 0.9 % flush central line 10 mL 10 mL, IV Push, PRN Other, IV Flush, Starting on Tue04/20/24 at 1239, Until Tue04/20/24 at 1925, For 24 hours, Do not flush if lock, PICC, or central line not in place; IV infusing or unable to flush. 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 Yes, not currently available * Full Code Date Activated Date Inactivated Comments 11/21/2018 8:53 AM 11/21/2018 2:27 PM This order ref lects the patients wishes and were consensually agreed upon. Care Teams Observer Helper Relationship Specialty Start Date End Date Kulwinder Byers MD [address] [place] [address] PCP - General 06/28/03 05/07/24 documented as of this encounter
--- OUTSIDE RECORDS SUMMARY | 2024-07-01 14:39 | External Medical Summary | Summary of Care ---
Author Name Unknown Organization [facility] Address [address] [place] [address] Phone [phone] Care Team Providers Care Ore Washer Name Role Phone Sachi Soni MD Primary Care Provider [phone] Encounter Details Date Type Department Care Team (Latest Contact Info) Description 05/23/2024 2:07 PM EDT - 05/23/2024 11:59 PM EDT Hospital Encounter Radiology, [place] [address] [place] [address] Arrived Discharge Disposition: Home - [...] day. 30 Tab 12/25/2018 Active nystatin (NYSTOP) 389663 UNIT/GM powder Apply topically to affected area [...] Description 05/25/2024 11:00 AM EDT Laboratory Laboratory [facility] [place] [address] [place] [id number] Ritu, Lab Scenery [address] [facility] [place], [place] [address] 05/25/2024 12:00 PM EDT Hem/Onc Treatment Hematology/Oncology Treatment, [place] [address] [facility], [place] [address] Ritu, Chair 3 Hem Onc Scenery [address] [place] [address] 06/01/2024 11:00 AM EDT Laboratory Laboratory [facility] [place] [address] [place] [address] Ritu, Lab Scenery [address] [facility] [place], [place] [address] 06/01/2024 12:00 PM EDT Hem/Onc Treatment Hematology/Oncology Treatment, [place] 200 [facility] [place], [place] [address] Ritu, Chair 7 Hem Onc Scenery [address] [place] [address] 06/08/2024 10:00 AM EDT Laboratory Laboratory [facility] [place] [address] [place] [address] Ritu, Lab Scenery [address] [facility] [place] [address] 06/08/2024 11:00 AM EDT Hem/Onc Treatment Hematology/Oncology Treatment, [place] [address] [facility] [place] [address] Ritu, Chair 1 Hem Onc Scenery [address] [place] [address] 06/15/2024 11:00 AM EDT Laboratory Laboratory Scenery [place] [address] [place] [address] Ritu, Lab Scenery [address] [place] [address] 06/15/2024 12:00 PM EDT Hem/Onc Treatment Hematology/Oncology Treatment, [place] [address] [facility] [place] [address] Ritu, Chair 6 Hem Onc Scenery [address] [place] [address] 06/22/2024 11:00 AM EDT Laboratory Laboratory [facility] [place] [address] [place] [address] Ritu, Lab Scenery [address] [place] [address] 06/22/2024 12:00 PM EDT [facility] [address] [facility] [place] [address] Ritu, Chair 1 Hem Onc Scenery [address] [place] [address] 06/29/2024 11:00 AM EDT Laboratory Laboratory [facility] [place] [address] [place] [address] Ritu, Lab Scenery [address] [place] [address] 06/29/2024 12:00 PM EDT Hem/Onc Treatment Hematology/Oncology Treatment, [address] [place] [address] Ritu, Chair 10 Hem Onc Scenery [address] [place], [place] [address] 07/06/2024 11:10 AM EDT Laboratory Laboratory [facility] [place] [address] [place], [place] [address] Ritu, Lab Scenery [address] [place], [place] [address] 07/06/2024 12:30 PM EDT Hem[facility] [address] [facility], [place] [address] Ritu, Chair 4 Hem Onc Scenery [address] [place], [place] [address] 07/13/2024 11:00 AM EDT Laboratory Laboratory [facility] [place] [address] [place], [place] [address] Ritu, Lab Scenery [address] [place], [place] [address] 07/13/2024 11:30 AM EDT Office Visit Hematology/Oncology [facility] [place] [address] [place], [place] [address] Mariana Florez CRNP [address] [place] [address] 07/13/2024 12:00 PM EDT Hem[facility] [address] [facility], [place] [address] Health Maintenance Due Date Last Done Comments [...] this encounter Medical Devices Implanted Type Area Equipment Operating Engineer Device Identifier Shelf Expiration Date Model / Serial / Lot Screw Elbow Humeral Total - [id number] Implanted:Qty: 1 on 12/23/2018 by Gautam Jasso [place] [facility] [place]: Upper Arm [employer] 09/13/20278400-090 -00 / / [id number] Deisi Nexel Total Elbow Implanted:Qty: 1 on 12/23/2018 by Gautam Jasso MD [place] [facility] Right: Upper Arm 04/13/20238400-095 -00 / / [id number] Cement Antibiotic Bone - [id number] Implanted:Qty: 1 on 12/23/2018 by Gautam Jasso MD [place] [facility] Right: Upper Arm RENY : ORTHOPAEDICS 05/13/2020 6197-9-010 / / [id number] Cement Antibiotic Bone - [id number] Implanted:Qty: 1 on 12/23/2018 by Gautam Jasso MD [place] [facility] Right: Upper Arm RENY : ORTHOPAEDICS 05/13/2020 6197-9-010 / / [id number] Stem Compr Srs Mod [id number] - [id number] Implanted:Qty: 1 on 12/23/2018 by Gautam Jasso MD [place] [facility] Right: Upper Arm BIOMET : TRAUMA 01/28/2027 [id number] / / [id number] Deisi Nexel Total Elbow Ulnar Component Implanted:Qty: 1 on 12/23/2018 by Gautam Jasso MD [place] [facility] Right: Upper Arm 07/14/2025 00-8400-025 -07 / / [id number] Comprehensive Srs/Nexel Distal Body Implanted:Qty: 1 on 12/23/2018 by Gautam Jasso MD [place] [facility] Right: Upper Arm 03/03/2028 [id number] / / [id number] Valve Ricky 3 Ultra 26mm - [id number] Implanted:Qty: 1 on 05/27/2022 by Jesús Weber MD at [facility] 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 Yes, not currently available * Full Code Date Activated Date Inactivated Comments 11/21/2018 8:53 AM 11/21/2018 2:27 PM This order ref lects the patients wishes and were consensually agreed upon. Care Teams Ore Washer Relationship Specialty Start Date End Date Sachi Soni MD [address] [place] [address] PCP - General Family Medicine 05/08/24 documented as of this encounter
--- OUTSIDE RECORDS SUMMARY | 2024-07-01 14:40 | External Medical Summary | Summary of Care ---
Author Name Unknown Organization [facility] Address [address] [place] [address] Phone [phone] Care Team Providers Care Salesperson Toy Trains And Accessories Name Role Phone Sachi Soni MD Primary Care Provider [phone] Encounter Details Date Type Department Care Team (Latest Contact Info) Description 05/12/2024 6:45 PM EDT - 05/12/2024 6:49 PM EDT Hospital Encounter Radiology Film File [address] [place] [address] Discharge Disposition: Home - Self Care Allergies Active Allergy Reactions Criticality Noted Date Comments Adhesive Tape 05/28/2003 documented as of this encounter (statuses as of 05/23/2024) Medications Medication Sig Dispensed Refills Start Date [...] day. 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 Aortic valve stenosis 2021 documented as of this encounter (statuses as of 05/23/2024) Social History Tobacco Use Types Packs/Day Years [...] 05/23/2024 1:30 PM EDT Office Visit Orthopaedics, [place] [address] [place] [address] Gautam Jasso MD [address] [place] [address] 05/25/2024 11:00 AM EDT Laboratory Laboratory [facility] [place] [address] [place] [phone] Ritu Lab [address] [place] [address] 05/25/2024 12:00 PM EDT Hem/Onc Treatment Hematology/[address] [phone] Ritu, Chair 3 Hem Onc [place] [address] [place] [address] 06/01/2024 11:00 AM EDT Laboratory Laboratory [facility] Ritu [place] [address] [place] [address] Ritu, Lab Ward [address] [place] [address] 06/01/2024 12:00 PM EDT Hem/Onc Treatment Hematology/Oncology Treatment, [place] [address] [place] [address] Ritu, Chair 7 Hem Onc Scenery [address] [place] [address] 06/08/2024 10:00 AM EDT Laboratory Laboratory [facility] [address] [place] [address] Ritu, Lab Scenery [address] [place] [address] 06/08/2024 11:00 AM EDT Hem/Onc Treatment Hematology/Oncology Treatment, [place] [address] [place] [address] Ritu, Chair 7 Hem Onc Scenery [address] [place] [address] 06/15/2024 11:00 AM EDT Laboratory Laboratory [facility] [place] [address] [place] [address] Ritu, Lab Scenery [address] [place] [address] 06/15/2024 12:00 PM EDT Hem/Onc Treatment Hematology/Oncology Treatment, [place] [address] [place] [address] Ritu, Chair 6 Hem Onc Scenery [address] [place] [address] 06/22/2024 11:00 AM EDT Laboratory Laboratory [facility] [address] [place] [address] Ritu, Lab Scenery [address] [place] [address] 06/22/2024 12:00 PM EDT Hem/Onc Treatment Hematology/Oncology Treatment, [place] [address] [place] [address] Ritu, Chair 1 Hem Onc Scenery [address] [place] [address] 06/29/2024 11:00 AM EDT Laboratory Laboratory [facility] [place] [address] [place], [place] [address] Ritu, Lab Scenery [address] [place] [address] 06/29/2024 12:00 PM EDT [facility] [address] [facility], [place] [address] Ritu, Chair 10 Hem Onc Scenery [address] [place], [place] [address] 07/06/2024 11:10 AM EDT Laboratory Laboratory [facility] [place] [address] [place], [place] [address] Ritu, Lab Scenery [address] [place], [place] [address] 07/06/2024 12:30 PM EDT [facility] [address] [place] [address] Ritu, Chair 4 Hem Onc Scenery [address] [place] [address] 07/13/2024 11:00 AM EDT Laboratory Laboratory [facility] Ritu [place] [address] [place], [place] [address] Ritu, Lab Scenery [address] [place] [address] 07/13/2024 11:30 AM EDT Office Visit Hematology/Oncology [facility] [place] [address] [place], [place] [address] Mariana Florez CRNP [address] [facility] [place] [address] 07/13/2024 12:00 PM EDT Hem/Onc Treatment Hematology/Oncology Treatment, [address] [address] Health Maintenance Due Date Last Done [...] this encounter Medical Devices Implanted Type Area Beverage Inspection Machine Tender Device Identifier Shelf Expiration Date Model / Serial / Lot Screw Elbow Humeral Total - [id number] Implanted:Qty: 1 on 12/23/2018 by Gautam Jasso MD [place] [facility] Right: Upper Arm [employer] 09/13/202700-090 / / [id number] Deisi Nexel Total Elbow Implanted:Qty: 1 on 12/23/2018 by Gautam Jasso MD at [place] [facility] Right: Upper Arm 04/13/2023-5 / / [id number] Cement Antibiotic Bone - [id number] Implanted:Qty: 1 on 12/23/2018 by Gautam Jasso MD at [place] [facility] Right: Upper Arm RENY : ORTHOPAEDICS 05/13/2020 6197-9-010 / / [id number] Cement Antibiotic Bone - [id number] Implanted:Qty: 1 on 12/23/2018 by Gautam Jasso MD at [place] [facility] Right: Upper Arm RENY : ORTHOPAEDICS 05/13/2020 6197-9-010 / / [id number] Stem Compr Srs Mod [id number] - [id number] Implanted:Qty: 1 on 12/23/2018 by Gautam Jasso MD at [place] [facility] Right: Upper Arm BIOMET : TRAUMA 01/28/2027 [id number] / / [id number] Deisi Nexel Total Elbow Ulnar Component Implanted:Qty: 1 on 12/23/2018 by Gautam Jasso MD at [place] [facility] Right: Upper Arm 07/14/2025 00-8400-025 -07 / / [id number] Comprehensive Srs/Nexel Distal Body Implanted:Qty: 1 on 12/23/2018 by Gautam Jasso MD at OR [facility] Right: Upper Arm 03/03/2028 [id number] / / [id number] Valve Ricky 3 Ultra 26mm - [id number] Implanted:Qty: 1 on 05/27/2022 by Jesús Weber MD at [facility]ARDIAC LABS [facility] [employer] [id number] 03/17/2023 [id number] / / Port Implant W/8f Poly Cath - [id number] Implanted:Qty: 1 on 12/29/2022 by Sudhir Lovett DO at OR [facility] Right: Chest CR BARD : PERIPHERAL VASCULAR [id number] 02/12/2024 [id number] / / [id number] documented as of this encounter Procedures Procedure Name Priority Date/Time Associated Diagnosis Comments RADIOLOGY EXAM - GENERAL RAD (IMAGES ONLY,NO REPORT) Routine 05/12/2024 6:45 PM EDT documented in this encounter Results * RADIOLOGY EXAM - GENERAL RAD (IMAGES ONLY,NO REPORT) (05/12/2024 6:45 PM EDT) 05/12/2024 6:44 PM EDT Narrative Scheduling, Silent - 05/22/2024 4:04 PM EDT This is an imaging study not interpreted or resulted by a [facility] or [facility] contracted radiologist. Sachi Soni MD RADIOLOGY (RAD GENER AL) documented in this encounter Advance Directives Documents on File Type Date Recorded Patient On Air Host Expl anation Power of Systems Coordinator 12/12/2018 8:46 AM Healt hcare Power of Systems Coordinator Power of Systems Coordinator 12/12/2018 8:45 AM Zuleyma ferguson Power of Systems Coordinator * Full Code (Latest Code Status on [...] patient have Health Care Power of Systems Coordinator? Yes, not currently available * Full Code Date Activated Date Inactivated Comments 11/21/2018 8:53 AM 11/21/2018 2:27 PM This order ref lects the patients wishes and were consensually agreed upon. Care Teams Salesperson Toy Trains And Accessories Relationship Specialty Start Date End Date Sachi Soni MD [address] [place] [address] PCP - General Family Medicine 05/08/24 documented as of this encounter
--- OUTSIDE RECORDS SUMMARY | 2024-07-01 14:40 | External Medical Summary | Summary of Care ---
Author Name Unknown Organization [facility] Address [address] [facility] [place] [address] Phone [phone] Care Team Providers Care Label Operator Name Role Phone Kulwinder Byers MD Primary Care Provider [phone] Reason for Visit * Reason Comments Chemotherapy Cytoxan/Darzalex Fas pro * Episode Based Medications (Routine) - Authorized Specialty Diagnoses / Procedures Referred By Contac t Referred To Contact Diagnoses Multiple myeloma not having achieved remission (HCC) Procedures OK DARATUMUMAB, HYALURONIDASE [place] CYCLOPHOSPHAMIDE 100 MG INJ OK INJ, CYCLOPHOSPHAMIDE, NOS Jorge Allen MD [address] [place] [address] Anc Hem/Onc [facility] [place] DEPT CLOSED - 09/27/23 [address] [place] [address] Referral ID Status Reason Start Date Expiration Date V isits Requested Visits Authorized [id number] Authorized 07/23/2022 11/13/2099 999 99 Encounter Details Date Type Department Care Team (Latest Contact Info) Description 04/20/2024 12:00 PM EDT Hem/Onc Treatment Hematology/Oncolog y Treatment, [place] [address] [place] [address] Ritu, Chair 5 Hem Onc Scenery [address] [place] [address] Multiple myeloma not having achieved remission (HCC)*; [...] day. 30 Tab 12/25/2018 Active nystatin (NYSTOP) 129574 UNIT/GM powder Apply topically to affected area [...] 11:00 AM EDT Laboratory Laboratory [address] [place] [address] [place] [address] [place], Lab Scenery [address] [place] [address] 05/25/2024 12:00 PM EDT Hem/Onc Treatment Hematology/Oncology Treatment, [place] [address] [facility] [place] [address] [place], Chair 3 Hem Onc Scenery [address] [place] [address] 06/01/2024 11:00 AM EDT Laboratory Laboratory Scenery [facility] [address] [place] [address] Ritu, Lab Scenery [address] [place] [address] 06/01/2024 12:00 PM EDT Hem/Onc Treatment Hematology/Oncology Treatment, [place] [address] [facility] [place] [address] Ritu, Chair 7 Hem Onc Scenery [address] [place] [address] 06/08/2024 10:00 AM EDT Laboratory Laboratory [facility] [place] [address] [place] [address] Ritu, Lab Scenery [address] [place] [address] 06/08/2024 11:00 AM EDT [facility] [address] [facility] [place] [address] Ritu, Chair 1 Hem Onc Scenery [address] [place] [address] 06/15/2024 11:00 AM EDT Laboratory Laboratory [facility] [place] [address] [place] [address] Ritu, Lab Scenery [address] [place] [address] 06/15/2024 12:00 PM EDT Hem/Onc Treatment Hematology/Oncology Treatment, [place] [address] [facility] [place] [address] Ritu, Chair 6 Hem Onc Scenery [address] [place] [address] 06/22/2024 11:00 AM EDT Laboratory Laboratory Scenery [place] [address] [place] [address] Ritu, Lab Scenery [address] [place] [address] 06/22/2024 12:00 PM EDT Hem/Onc Treatment Hematology/Oncology Treatment, [place] [address] [facility] [place], [place] [address] Ritu, Chair 1 Hem Onc Scenery [address] [place], [place] [address] 06/29/2024 11:00 AM EDT Laboratory Laboratory Scenery [place] [address] [place], [place] [address] Ritu, Lab Scenery [address] [place] [address] 06/29/2024 12:00 PM EDT Hem/Onc Treatment Hematology/Oncology Treatment, [place] [address] [facility] [place] [address] Ritu, Chair 10 Hem Onc Scenery [address] [place] [address] 07/06/2024 11:10 AM EDT Laboratory Laboratory Scenery [address] [place] [address] [place] [address] Ritu, Lab Scenery [address] [place] [address] 07/06/2024 12:30 PM EDT Hem/Onc Treatment Hematology/Oncology Treatment, [place] [address] [facility] [place] [address] Ritu, Chair 4 Hem Onc [facility] 200 [facility] [place], [place] [address] 07/13/2024 11:00 AM EDT Laboratory Laboratory [facility] 200 [facility] [place] [address] [place], Lab [facility] 200 [facility] [place], [place] [address] 07/13/2024 11:30 AM EDT Office Visit Hematology/Oncology [facility] 200 [facility] [place], [place] [address] [place] Florez CRNP [address] [place] [address] 07/13/2024 12:00 PM EDT Hem/Onc Treatment Hematology/Oncology Treatment, [place] [address] [facility] [place] [address] Health Maintenance Due Date Last Done [...] this encounter Medical Devices Implanted Type Area Magnetometer Operator Device Identifier Shelf Expiration Date Model / Serial / Lot Screw Elbow Humeral Total - [id number] Implanted:Qty: 1 on 12/23/2018 by Gautam Jasso MD at [place] [facility] Right: Upper Arm [employer] 09/13/2027 / / [id number] Deisi Nexel Total Elbow Implanted:Qty: 1 on 12/23/2018 by Gautam Jasso MD at OR [facility] Right: Upper Arm 04/13/2023 / / [id number] Cement Antibiotic Bone - [id number] Implanted:Qty: 1 on 12/23/2018 by Gautam Jasso MD at OR [facility] Right: Upper Arm RENY : ORTHOPAEDICS 05/13/2020 6197-9-010 / / [id number] Cement Antibiotic Bone - [id number] Implanted:Qty: 1 on 12/23/2018 by Gautam Jasso MD at OR [facility] Right: Upper Arm RENY : ORTHOPAEDICS 05/13/2020 6197-9-010 / / [id number] Stem Compr Srs Mod 9t698cf - [id number] Implanted:Qty: 1 on 12/23/2018 by Gautam Jasso MD at OR [facility] Right: Upper Arm BIOMET : TRAUMA 01/28/2027 [id number] / / [id number] Deisi Nexel Total Elbow Ulnar Component Implanted:Qty: 1 on 12/23/2018 by Gautam Jasso MD at OR [facility] Right: Upper Arm 07/14/202500-025 -07 / / [id number] Comprehensive Srs/Nexel Distal Body Implanted:Qty: 1 on 12/23/2018 by Gautam Jasso MD at OR [facility] Right: Upper Arm 03/03/2028 [id number] / / [id number] Valve Ricky 3 Ultra 26mm - [id number] Implanted:Qty: 1 on 05/27/2022 by Jesús Weber MD at [facility]ARDIAC LABS [facility] Myagi [id number] 03/17/2023 [id number] / / Port Implant W/8f Poly Cath - [id number] Implanted:Qty: 1 on 12/29/2022 by Sudhir Lovett DO at OR [facility] Right: Chest CR BARD : PERIPHERAL VASCULAR [id number] 02/12/2024 [id number] / / [id number] documented as of this encounter Visit Diagnoses [...] 516.2 mL/hr Daratumumab-hyaluronida se-fihj (Darzalex Faspro) 1800 mg-92869 units/ 15 ml subcut inj 15 mL, [...] Documents on File Type Date Recorded Patient Prototype Deicer Assembler Expl anation Power of Tire Layer 12/12/2018 8:46 AM Vipin viveros Power of Tire Layer Power of Tire Layer 12/12/2018 8:45 AM Zuleyma ferguson Power of Tire Layer * Full Code (Latest Code Status on [...] patient have Health Care Power of Tire Layer? Yes, not currently available * Full Code Date Activated Date Inactivated Comments 11/21/2018 8:53 AM 11/21/2018 2:27 PM This order ref lects the patients wishes and were consensually agreed upon. Care Teams Label Operator Relationship Specialty Start Date End Date Kulwinder Byers MD [address] [place] [address] PCP - General 06/28/03 05/07/24 documented as of this encounter
--- OUTSIDE RECORDS SUMMARY | 2024-07-01 14:40 | External Medical Summary | Summary of Care ---
Author Name Unknown Organization [facility] Address [address] [place] [address] Phone [phone] Care Team Providers Care Molecular Biology Scientist Name Role Phone Sachi Soni MD Primary Care Provider [phone] Encounter Details Date Type Department Care Team (Latest Contact Info) Description 05/12/2024 7:10 PM EDT - 05/12/2024 11:59 PM EDT Hospital Encounter Radiology Film File [address] [place] [address] Discharge Disposition: Home - Self [...] day. 30 Tab 12/25/2018 Active nystatin (NYSTOP) 504384 UNIT/GM powder Apply topically to affected area [...] 05/23/2024 1:30 PM EDT Office Visit Orthopaedics, [place] [address] [place] [address] Gautam Jasso MD [address] [place] [address] 05/25/2024 11:00 AM EDT Laboratory Laboratory [facility] [place] [address] [place] [address] Ritu Lab [address] [place] [address] 05/25/2024 12:00 PM EDT Hem/Onc Treatment Hematology/[address]cology [address] [address] Ritu, Chair 3 Hem Onc [place] [address] [place] [address] 06/01/2024 11:00 AM EDT Laboratory Laboratory [facility] [place] [address] [place] [address] Ritu, Lab Ward [address] [place] [address] 06/01/2024 12:00 PM EDT Hem/Onc Treatment Hematology/Oncology Treatment, [place] [address] [facility] [place] [address] Ritu, Chair 7 Hem Onc Scenery [address] [place] [address] 06/08/2024 10:00 AM EDT Laboratory Laboratory [facility] [address] [place] [address] Ritu, Lab Scenery [address] [place] [address] 06/08/2024 11:00 AM EDT Hem/Onc Treatment Hematology/Oncology Treatment, [place] [facility] [place] [address] Ritu, Chair 7 Hem Onc Scenery [address] [place] [address] 06/15/2024 11:00 AM EDT Laboratory Laboratory [facility] [place] [address] [place] [address] Ritu, Lab Scenery [address] [place] [address] 06/15/2024 12:00 PM EDT Hem/Onc Treatment Hematology/Oncology Treatment, [place] [facility] [place] [address] Ritu, Chair 6 Hem Onc Scenery [address] [place] [address] 06/22/2024 11:00 AM EDT Laboratory Laboratory [facility] [address] [place] [address] Ritu, Lab Scenery [address] [place] [address] 06/22/2024 12:00 PM EDT Hem/Onc Treatment Hematology/Oncology Treatment, [place] [facility] [place] [address] Ritu, Chair 1 Hem Onc Scenery [address] [place] [address] 06/29/2024 11:00 AM EDT Laboratory Laboratory [facility] [place] [address] [place], [place] [address] Ritu, Lab Scenery [address] [place] [address] 06/29/2024 12:00 PM EDT [facility] [place] [address] Ritu, Chair 10 Hem Onc Scenery [address] [place], [place] [address] 07/06/2024 11:10 AM EDT Laboratory Laboratory [facility] [place] [address] [place], [place] [address] Ritu, Lab Scenery [address] [place], [place] [address] 07/06/2024 12:30 PM EDT [facility] [place] [address] Ritu, Chair 4 Hem Onc Scenery [address] [place] [address] 07/13/2024 11:00 AM EDT Laboratory Laboratory [facility] [place] [address] [place], [place] [address] Ritu, Lab Scenery [address] [place] [address] 07/13/2024 11:30 AM EDT Office Visit Hematology/Oncology [facility] [place] [address] [place], [place] [address] [place] Florez CR[facility] [address] [facility] [place] [address] 07/13/2024 12:00 PM EDT Hem/Onc Treatment Hematology/Oncology Treatment, [address] [address] Health Maintenance Due Date Last [...] this encounter Medical Devices Implanted Type Area Bender Helper Device Identifier Shelf Expiration Date Model / Serial / Lot Screw Elbow Humeral Total - [id number] Implanted:Qty: 1 on 12/23/2018 by Gautam Jasso MD at [place] [facility] Right: Upper Arm [employer] 09/13/202700-090 / / [id number] Deisi Nexel Total Elbow Implanted:Qty: 1 on 12/23/2018 by Gautam Jasso MD at OR [facility] Right: Upper Arm 04/13/2023-5 / / [id number] Cement Antibiotic Bone - [id number] Implanted:Qty: 1 on 12/23/2018 by Gautam Jasso MD at [place] [facility] Right: Upper Arm RENY : ORTHOPAEDICS 05/13/2020 6197-9-010 / / [id number] Cement Antibiotic Bone - [id number] Implanted:Qty: 1 on 12/23/2018 by Gautam Jasso MD at OR [facility] Right: Upper Arm RENY : ORTHOPAEDICS 05/13/2020 6197-9-010 / / [id number] Stem Compr Srs Mod [id number] - [id number] Implanted:Qty: 1 on 12/23/2018 by Gautam Jasso MD at OR [facility] Right: Upper Arm BIOMET : TRAUMA 01/28/2027 [id number] / / [id number] Deisi Nexel Total Elbow Ulnar Component Implanted:Qty: 1 on 12/23/2018 by Gautam Jasso MD at [place] [facility] Right: Upper Arm 07/14/2025 00-8400-025 -07 / / [id number] Comprehensive Srs/Nexel Distal Body Implanted:Qty: 1 on 12/23/2018 by Gautam Jasso MD at [place] [facility] Right: Upper Arm 03/03/2028 [id number] / / [id number] Valve Ricky 3 Ultra 26mm - [id number] Implanted:Qty: 1 on 05/27/2022 by Jesús Weber MD at CARDIAC LABS [facility] [employer] [id number] 03/17/2023 [id number] / / Port Implant W/8f Poly Cath - [id number] Implanted:Qty: 1 on 12/29/2022 by Sudhir Lovett DO at OR [facility] Right: Chest CR BARD : PERIPHERAL VASCULAR [id number] 02/12/2024 [id number] / / [id number] documented as of this encounter Procedures Procedure Name Priority Date/Time Associated Diagnosis Comments RADIOLOGY EXAM - GENERAL RAD (IMAGES ONLY,NO REPORT) Routine 05/12/2024 7:10 PM EDT documented in this encounter Results * RADIOLOGY EXAM - GENERAL RAD (IMAGES ONLY,NO REPORT) (05/12/2024 7:10 PM EDT) 05/12/2024 6:36 PM EDT Narrative Scheduling, Silent - 05/22/2024 4:08 PM EDT This is an imaging study not interpreted or resulted by a [facility] or [facility] contracted radiologist. Sachi Soni MD RADIOLOGY (RAD GENER AL) documented in this encounter Advance Directives Documents on File Type Date Recorded Patient Traffic Technician Expl anation Power of Director Of Corporate Strategy 12/12/2018 8:46 AM Healt hcare Power of Director Of Corporate Strategy Power of Director Of Corporate Strategy 12/12/2018 8:45 AM Zuleyma ferguson Power of Director Of Corporate Strategy * Full Code (Latest Code Status on [...] patient have Health Care Power of Director Of Corporate Strategy? Yes, not currently available * Full Code Date Activated Date Inactivated Comments 11/21/2018 8:53 AM 11/21/2018 2:27 PM This order ref lects the patients wishes and were consensually agreed upon. Care Teams Molecular Biology Scientist Relationship Specialty Start Date End Date Sachi Soni MD [address] [place] [address] PCP - General Family Medicine 05/08/24 documented as of this encounter
--- OUTSIDE RECORDS SUMMARY | 2024-07-01 14:40 | External Medical Summary | Summary of Care ---
Author Name Unknown Organization [facility] Address [address] [place] [address] Phone [phone] Care Team Providers Care Water Meter Reader Name Role Phone Sachi Soni MD Primary Care Provider [phone] Encounter Details Date Type Department Care Team (Latest Contact Info) Description 05/12/2024 7:00 PM EDT - 05/12/2024 7:04 PM EDT Hospital Encounter Radiology Film File [address] [place] [address] Discharge Disposition: Home - Self [...] day. 30 Tab 12/25/2018 Active nystatin (NYSTOP) 926297 UNIT/GM powder Apply topically to affected area [...] 05/23/2024 1:30 PM EDT Office Visit Orthopaedics, [place] [address] [place] [address] Gautam Jasso MD [address] [place] [address] 05/25/2024 11:00 AM EDT Laboratory Laboratory [facility] [place] [address] [place] [phone] Ritu Lab [address] [place] [address] 05/25/2024 12:00 PM EDT Hem/Onc Treatment Hematology/Oncology [address] [address] Ritu, Chair 3 Hem Onc [place] [address] [place] [address] 06/01/2024 11:00 AM EDT Laboratory Laboratory [facility] Ritu [place] [address] [place] [phone] Ritu, Lab Ward [address] [place] [address] 06/01/2024 12:00 PM EDT Hem/Onc Treatment Hematology/Oncology Treatment, [place] [address] [place] [address] Ritu, Chair 7 Hem Onc Scenery [address] [place] [address] 06/08/2024 10:00 AM EDT Laboratory Laboratory [facility] [address] [place] [address] Ritu, Lab Scenery [address] [place] [address] 06/08/2024 11:00 AM EDT Hem/Onc Treatment Hematology/Oncology Treatment, [place] [address] [place] [address] Ritu, Chair 7 Hem Onc Scenery [address] [place] [address] 06/15/2024 11:00 AM EDT Laboratory Laboratory [facility] [place] [address] [place] [address] Ritu, Lab Scenery [address] [place] [address] 06/15/2024 12:00 PM EDT Hem/Onc Treatment Hematology/Oncology Treatment, [place] [address] [place] [address] Ritu, Chair 6 Hem Onc Scenery [address] [place] [address] 06/22/2024 11:00 AM EDT Laboratory Laboratory [facility] [address] [place] [address] Ritu, Lab Scenery [address] [place] [address] 06/22/2024 12:00 PM EDT Hem/Onc Treatment Hematology/Oncology Treatment, [place] [address] [place] [address] Ritu, Chair 1 Hem Onc Scenery [address] [place] [address] 06/29/2024 11:00 AM EDT Laboratory Laboratory [facility] [place] [address] [place], [place] [address] Ritu, Lab Scenery [address] [place] [address] 06/29/2024 12:00 PM EDT [facility] [address] [facility], [place] [address] Ritu, Chair 10 Hem Onc Scenery [address] [place], [place] [address] 07/06/2024 11:10 AM EDT Laboratory Laboratory [facility] [place] [address] [place], [place] [address] Ritu, Lab Scenery [address] [place], [place] [address] 07/06/2024 12:30 PM EDT [facility] [address] [place] [address] Ritu, Chair 4 Hem Onc Scenery [address] [place] [address] 07/13/2024 11:00 AM EDT Laboratory Laboratory [facility] Ritu [place] [address] [place], [place] [address] Ritu, Lab Scenery [address] [place] [address] 07/13/2024 11:30 AM EDT Office Visit Hematology/Oncology [facility] [place] [address] [place], [place] [address] Mariana Florez CRNP [address] [facility] [place] [address] 07/13/2024 12:00 PM EDT Hem/Onc Treatment Hematology/Oncology Treatment, [address] [address] Health Maintenance Due Date Last [...] this encounter Medical Devices Implanted Type Area Computer Salesperson Retail Device Identifier Shelf Expiration Date Model / Serial / Lot Screw Elbow Humeral Total - [id number] Implanted:Qty: 1 on 12/23/2018 by Gautam Jasso MD [place] [facility] [place]: Upper Arm [employer] 09/13/202700-090 / / [id number] Deisi Nexel Total Elbow Implanted:Qty: 1 on 12/23/2018 by Gautma Jasso MD [place] [facility] [place]: Upper Arm 04/13/2023-5 / / [id number] Cement Antibiotic Bone - [id number] Implanted:Qty: 1 on 12/23/2018 by Gautam Jasso MD [place] [facility] [place]: Upper Arm RENY : ORTHOPAEDICS 05/13/2020 6197-9-010 / / [id number] Cement Antibiotic Bone - [id number] Implanted:Qty: 1 on 12/23/2018 by Gautam Jasso MD [place] [facility] [place]: Upper Arm RENY : ORTHOPAEDICS 05/13/2020 6197-9-010 / / [id number] Stem Compr Srs Mod [id number] - [id number] Implanted:Qty: 1 on 12/23/2018 by Gautam Jasso MD [place] [facility] [place]: Upper Arm BIOMET : TRAUMA 01/28/2027 [id number] / / [id number] Deisi Nexel Total Elbow Ulnar Component Implanted:Qty: 1 on 12/23/2018 by Gautam Jasso MD [place] [facility] [place]: Upper Arm 07/14/2025 00-8400-025 -07 / / [id number] Comprehensive Srs/Nexel Distal Body Implanted:Qty: 1 on 12/23/2018 by Gautam Jasso MD [place] [facility] [place] Right: Upper Arm 03/03/2028 [id number] / / [id number] Valve Ricky 3 Ultra 26mm - [id number] Implanted:Qty: 1 on 05/27/2022 by Jesús Weber MD at [facility] [place] [employer] [id number] 03/17/2023 [id number] / / Port Implant W/8f Poly Cath - [id number] Implanted:Qty: 1 on 12/29/2022 by Sudhir Lovett DO at OR [facility] Right: Chest CR BARD : PERIPHERAL VASCULAR [id number] 02/12/2024 [id number] / / [id number] documented as of this encounter Procedures Procedure Name Priority Date/Time Associated Diagnosis Comments RADIOLOGY EXAM - GENERAL RAD (IMAGES ONLY,NO REPORT) Routine 05/12/2024 7:00 PM EDT documented in this encounter Results * RADIOLOGY EXAM - GENERAL RAD (IMAGES ONLY,NO REPORT) (05/12/2024 7:00 PM EDT) 05/12/2024 6:44 PM EDT Narrative Scheduling, Silent - 05/22/2024 4:05 PM EDT This is an imaging study not interpreted or resulted by a [facility] or [facility] contracted radiologist. Sachi Soni MD RADIOLOGY (RAD GENER AL) documented in this encounter Advance Directives Documents on File Type Date Recorded Patient Tape Cutting Machine Operator Expl anation Power of Boiler Repair Supervisor 12/12/2018 8:46 AM Healt hcare Power of Boiler Repair Supervisor Power of Boiler Repair Supervisor 12/12/2018 8:45 AM Zuleyma ferguson Power of Boiler Repair Supervisor * Full Code (Latest Code Status on [...] the patient have Health Care Power of Boiler Repair Supervisor? Yes, not currently available * Full Code Date Activated Date Inactivated Comments 11/21/2018 8:53 AM 11/21/2018 2:27 PM This order ref lects the patients wishes and were consensually agreed upon. Care Teams Water Meter Reader Relationship Specialty Start Date End Date Sachi Soni MD [address] [place] [address] PCP - General Family Medicine 05/08/24 documented as of this encounter
--- OUTSIDE RECORDS SUMMARY | 2024-07-01 14:40 | External Medical Summary | Summary of Care ---
Author Name Unknown Organization [facility] Address [address] [place] [address] Phone [phone] Care Team Providers Care Final Assembly Worker Name Role Phone Sachi Soni MD Primary Care Provider [phone] Encounter Details Date Type Department Care Team (Latest Contact Info) Description 05/12/2024 6:40 PM EDT - 05/12/2024 6:44 PM EDT Hospital Encounter Radiology Film File [address] [place] [address] Discharge Disposition: Home - Self [...] day. 30 Tab 12/25/2018 Active nystatin (NYSTOP) 722147 UNIT/GM powder Apply topically to affected area [...] 05/23/2024 1:30 PM EDT Office Visit Orthopaedics, [place] [address] [place] [address] Gautam Jasso MD [address] [place] [address] 05/25/2024 11:00 AM EDT Laboratory Laboratory [facility] [place] [address] [place] [phone] Ritu Lab [address] [place] [address] 05/25/2024 12:00 PM EDT Hem/Onc Treatment Hematology/Oncology [address] [address] Ritu, Chair 3 Hem Onc [place] [address] [place] [address] 06/01/2024 11:00 AM EDT Laboratory Laboratory [facility] Ritu [place] [address] [place] [phone] Ritu, Lab Ward [address] [place] [address] 06/01/2024 12:00 PM EDT Hem/Onc Treatment Hematology/Oncology Treatment, [place] 200 [facility] [place] [address] Ritu, Chair 7 Hem Onc Scenery [address] [place] [address] 06/08/2024 10:00 AM EDT Laboratory Laboratory [facility] [address] [place] [address] Ritu, Lab Scenery [address] [place] [address] 06/08/2024 11:00 AM EDT Hem/Onc Treatment Hematology/Oncology Treatment, [place] [address] [facility] [place] [address] Ritu, Chair 7 Hem Onc Scenery [address] [place] [address] 06/15/2024 11:00 AM EDT Laboratory Laboratory [facility] [place] [address] [place] [address] Ritu, Lab Scenery [address] [place] [address] 06/15/2024 12:00 PM EDT Hem/Onc Treatment Hematology/Oncology Treatment, [place] [address] [facility] [place] [address] Ritu, Chair 6 Hem Onc Scenery [address] [place] [address] 06/22/2024 11:00 AM EDT Laboratory Laboratory [facility] [address] [place] [address] Ritu, Lab Scenery [address] [place] [address] 06/22/2024 12:00 PM EDT Hem/Onc Treatment Hematology/Oncology Treatment, [place] [address] [facility] [place] [address] Ritu, Chair 1 Hem Onc Scenery [address] [place] [address] 06/29/2024 11:00 AM EDT Laboratory Laboratory [facility] [place] [address] [place], [place] [address] Ritu, Lab Scenery [address] [place] [address] 06/29/2024 12:00 PM EDT [facility] [address] [facility], [place] [address] Ritu, Chair 10 Hem Onc Scenery [address] [place], [place] [address] 07/06/2024 11:10 AM EDT Laboratory Laboratory [facility] [place] [address] [place], [place] [address] Ritu, Lab Scenery [address] [place], [place] [address] 07/06/2024 12:30 PM EDT Hem[facility] [address] [facility] [place] [address] Ritu, Chair 4 Hem Onc Scenery [address] [place] [address] 07/13/2024 11:00 AM EDT Laboratory Laboratory [facility] Ritu [place] [address] [place], [place] [address] Ritu, Lab Scenery [address] [place] [address] 07/13/2024 11:30 AM EDT Office Visit Hematology/Oncology [facility] [place] [address] [place], [place] [address] [place] Florez CRNP [address] [facility] [place] [address] 07/13/2024 12:00 PM EDT Hem/Onc Treatment Hematology/Oncology Treatment, [address] [address] Health Maintenance Due Date Last [...] this encounter Medical Devices Implanted Type Area Ski Maker Device Identifier Shelf Expiration Date Model / Serial / Lot Screw Elbow Humeral Total - [id number] Implanted:Qty: 1 on 12/23/2018 by Gautam Jasso MD [place] [facility] [place] Right: Upper Arm [employer] 09/13/202700-090 / / [id number] Deisi Nexel Total Elbow Implanted:Qty: 1 on 12/23/2018 by Gautam Jasso MD at [place] [facility] [place] Right: Upper Arm 04/13/2023-5 / / [id number] Cement Antibiotic Bone - [id number] Implanted:Qty: 1 on 12/23/2018 by Gautam Jasso MD at [place] [facility] [place] Right: Upper Arm RENY : ORTHOPAEDICS 05/13/2020 6197-9-010 / / [id number] Cement Antibiotic Bone - [id number] Implanted:Qty: 1 on 12/23/2018 by Gautam Jasso MD at [place] [facility] [place] Right: Upper Arm RENY : ORTHOPAEDICS 05/13/2020 6197-9-010 / / [id number] Stem Compr Srs Mod 6f110ug - [id number] Implanted:Qty: 1 on 12/23/2018 by Gautam Jasso MD at [place] [facility] [place] Right: Upper Arm BIOMET : TRAUMA 01/28/2027 [id number] / / [id number] Deisi Nexel Total Elbow Ulnar Component Implanted:Qty: 1 on 12/23/2018 by Gautam Jasso MD at [place] [facility] [place] Right: Upper Arm 07/14/2025 00-8400-025 -07 / / [id number] Comprehensive Srs/Nexel Distal Body Implanted:Qty: 1 on 12/23/2018 by Gautam Jasso MD at [place] [facility] [place] Right: Upper Arm 03/03/2028 [id number] / / [id number] Valve Ricky 3 Ultra 26mm - [id number] Implanted:Qty: 1 on 05/27/2022 by Jesús Weber MD at [facility] [place] [employer] [id number] 03/17/2023 [id number] / / Port Implant W/8f Poly Cath - [id number] Implanted:Qty: 1 on 12/29/2022 by Sudhir Lovett DO at OR [facility] Right: Chest CR BARD : PERIPHERAL VASCULAR [id number] 02/12/2024 [id number] / / [id number] documented as of this encounter Procedures Procedure Name Priority Date/Time Associated Diagnosis Comments RADIOLOGY EXAM - GENERAL RAD (IMAGES ONLY,NO REPORT) Routine 05/12/2024 6:40 PM EDT documented in this encounter Results * RADIOLOGY EXAM - GENERAL RAD (IMAGES ONLY,NO REPORT) (05/12/2024 6:40 PM EDT) 05/12/2024 6:36 PM EDT Narrative Scheduling, Silent - 05/22/2024 4:06 PM EDT This is an imaging study not interpreted or resulted by a [facility] or [facility] contracted radiologist. Sachi Soni MD RADIOLOGY (RAD GENER AL) documented in this encounter Advance Directives Documents on File Type Date Recorded Patient Skid Worker Expl anation Power of Sole Splitter 12/12/2018 8:46 AM Healt hcare Power of Sole Splitter Power of Sole Splitter 12/12/2018 8:45 AM Zuleyma ferguson Power of Sole Splitter * Full Code (Latest Code Status on [...] the patient have Health Care Power of Sole Splitter? Yes, not currently available * Full Code Date Activated Date Inactivated Comments 11/21/2018 8:53 AM 11/21/2018 2:27 PM This order ref lects the patients wishes and were consensually agreed upon. Care Teams Final Assembly Worker Relationship Specialty Start Date End Date Sachi Soni MD [address] [place] [address] PCP - General Family Medicine 05/08/24 documented as of this encounter
--- OUTSIDE RECORDS SUMMARY | 2024-07-01 14:40 | External Medical Summary | Summary of Care ---
Author Name Unknown Organization [facility] Address [address] [facility] [place] [address] Phone [phone] Care Team Providers Care Beauty Sales Consultant Name Role Phone Kulwinder Byers MD Primary Care Provider [phone] Reason for Visit * Reason Comments Chemotherapy Cytoxan/Darzalex Fas pro * Episode Based Medications (Routine) - Authorized Specialty Diagnoses / Procedures Referred By Contac t Referred To Contact Diagnoses Multiple myeloma not having achieved remission (HCC) Procedures MI DARATUMUMAB, HYALURONIDASE MI CYCLOPHOSPHAMIDE 100 MG INJ MI INJ, CYCLOPHOSPHAMIDE, NOS Jorge Allen MD [address] [place], [place] [address] Anc Hem/Onc [address] [place] DEPT CLOSED - 09/27/23 [address] [place] [address] Referral ID Status Reason Start Date Expiration Date V isits Requested Visits Authorized [id number] Authorized 07/23/2022 11/13/2099 999 99 Encounter Details Date Type Department Care Team (Latest Contact Info) Description 04/20/2024 12:00 PM EDT Hem/Onc Treatment Hematology/Oncolog y Treatment, [place] [address] [place] [address] Ritu, Chair 5 Hem Onc Scenery [address] [place] [address] Multiple myeloma not having achieved remission (HCC)*; [...] day. 30 Tab 12/25/2018 Active nystatin (NYSTOP) 732825 UNIT/GM powder Apply topically to affected area [...] 11:00 AM EDT Laboratory Laboratory [address] [place] [address] [place] [address] [place], Lab Scenery [address] [place] [address] 05/25/2024 12:00 PM EDT Hem/Onc Treatment Hematology/Oncology Treatment, [place] 200 [place] [address] [place], Chair 3 Hem Onc Scenery [address] [place] [address] 06/01/2024 11:00 AM EDT Laboratory Laboratory Scenery [facility] [address] [place] [address] Ritu, Lab Scenery [address] [place] [address] 06/01/2024 12:00 PM EDT Hem/Onc Treatment Hematology/Oncology Treatment, [place] 200 [place] [address] Ritu, Chair 7 Hem Onc Scenery [address] [place] [address] 06/08/2024 10:00 AM EDT Laboratory Laboratory [facility] [place] [address] [place] [address] Ritu, Lab Scenery [address] [place] [address] 06/08/2024 11:00 AM EDT [facility] 200 [place] [address] Ritu, Chair 1 Hem Onc Scenery [address] [place] [address] 06/15/2024 11:00 AM EDT Laboratory Laboratory [facility] [place] [address] [place] [address] Ritu, Lab Scenery [address] [place] [address] 06/15/2024 12:00 PM EDT Hem/Onc Treatment Hematology/Oncology Treatment, [place] [address] [place] [address] Ritu, Chair 6 Hem Onc Scenery [address] [place] [address] 06/22/2024 11:00 AM EDT Laboratory Laboratory Scenery [place] [address] [place] [address] Ritu, Lab Scenery [address] [place] [address] 06/22/2024 12:00 PM EDT Hem/Onc Treatment Hematology/Oncology Treatment, [place] 200 [facility], [place] [address] Ritu, Chair 1 Hem Onc Scenery [address] [place], [place] [address] 06/29/2024 11:00 AM EDT Laboratory Laboratory [address] [place] [address] [place], [place] [address] Ritu, Lab Scenery [address] [place] [address] 06/29/2024 12:00 PM EDT Hem/Onc Treatment Hematology/Oncology Treatment, [place] [address] [place] [address] Ritu, Chair 10 Hem Onc Scenery [address] [place] [address] 07/06/2024 11:10 AM EDT Laboratory Laboratory Scenery Ritu [place] [address] [place] [address] Ritu, Lab Scenery [address] [place] [address] 07/06/2024 12:30 PM EDT Hem/Onc Treatment Hematology/Oncology Treatment, [place] [address] [place] [address] Ritu, Chair 4 Hem Onc [facility] 200 [facility] [place], [place] [address] 07/13/2024 11:00 AM EDT Laboratory Laboratory [facility] 200 [facility] [place] [address] [place], Lab [facility] 200 [facility] [place], [place] [address] 07/13/2024 11:30 AM EDT Office Visit Hematology/Oncology [facility] 200 [facility] [place], [place] [address] [place] Florez CRNP [address] [place] [address] 07/13/2024 12:00 PM EDT Hem/Onc Treatment Hematology/Oncology Treatment, [place] [address] [facility] [address] Health Maintenance Due Date Last Done [...] this encounter Medical Devices Implanted Type Area Presentation Manager Device Identifier Shelf Expiration Date Model / Serial / Lot Screw Elbow Humeral Total - [id number] Implanted:Qty: 1 on 12/23/2018 [place]am [place] [facility] [place]: Upper Arm [employer] 09/13/2027 / / [id number] Deisi Nexel Total Elbow Implanted:Qty: 1 on 12/23/2018 by Gautam aJsso [place] [facility] [place]: Upper Arm 04/13/2023 / / [id number] Cement Antibiotic Bone - [id number] Implanted:Qty: 1 on 12/23/2018 by Gautam Jasso [place] [facility] [place]: Upper Arm RENY : ORTHOPAEDICS 05/13/2020 6197-9-010 / / [id number] Cement Antibiotic Bone - [id number] Implanted:Qty: 1 on 12/23/2018 by Gautam Jasso [place] [facility] [place]: Upper Arm RENY : ORTHOPAEDICS 05/13/2020 6197-9-010 / / [id number] Stem Compr Srs Mod 9a009yx - [id number] Implanted:Qty: 1 on 12/23/2018 by Gautam Jasso [place] [facility] [place]: Upper Arm BIOMET : TRAUMA 01/28/2027 [id number] / / [id number] Deisi Nexel Total Elbow Ulnar Component Implanted:Qty: 1 on 12/23/2018 by Gautam Jasso [place] [facility] [place]: Upper Arm 07/14/202500-025 -07 / / [id number] Comprehensive Srs/Nexel Distal Body Implanted:Qty: 1 on 12/23/2018 by Gautam Jasso [place] [facility] [place]: Upper Arm 03/03/2028 [id number] / / [id number] Valve Ricky 3 Ultra 26mm - [id number] Implanted:Qty: 1 on 05/27/2022 by Jesús Weber MD [place] [facility] [place] [employer] [id number] 03/17/2023 [id number] / / Port Implant W/8f Poly Cath - [id number] Implanted:Qty: 1 on 12/29/2022 by Sudhir Lovett DO at OR [facility] Right: Chest CR BARD : PERIPHERAL VASCULAR [id number] 02/12/2024 [id number] / / [id number] documented as of this encounter Visit Diagnoses [...] 516.2 mL/hr Daratumumab-hyaluronida se-fihj (Darzalex Faspro) 1800 mg-03936 units/ 15 ml subcut inj 15 mL, [...] Documents on File Type Date Recorded Patient Regulatory Intern Expl anation Power of Knowledge Engineer 12/12/2018 8:46 AM iVpin viveros Power of Knowledge Engineer Power of Knowledge Engineer 12/12/2018 8:45 AM Zuleyma ferguson Power of Knowledge Engineer * Full Code (Latest Code Status [...] the patient have Health Care Power of Knowledge Engineer? Yes, not currently available * Full Code Date Activated Date Inactivated Comments 11/21/2018 8:53 AM 11/21/2018 2:27 PM This order ref lects the patients wishes and were consensually agreed upon. Care Teams Beauty Sales Consultant Relationship Specialty Start Date End Date Kulwinder Byers MD [address] [place] [address] PCP - General 06/28/03 05/07/24 documented as of this encounter
--- OUTSIDE RECORDS SUMMARY | 2024-07-01 14:40 | External Medical Summary | Summary of Care ---
Author Name Unknown Organization [facility] Address [address] [place] [address] Phone [phone] Care Team Providers Care Graphotype Operator Name Role Phone Sachi Soni MD Primary Care Provider [phone] Encounter Details Date Type Department Care Team (Latest Contact Info) Description 05/12/2024 6:55 PM EDT - 05/12/2024 6:59 PM EDT Hospital Encounter Radiology Film File [address] [place] [address] Discharge Disposition: Home - Self [...] day. 30 Tab 12/25/2018 Active nystatin (NYSTOP) 682839 UNIT/GM powder Apply topically to affected area [...] 05/23/2024 1:30 PM EDT Office Visit Orthopaedics, [place] [address] [place] [address] Gautam Jasso MD [address] [place] [address] 05/25/2024 11:00 AM EDT Laboratory Laboratory [facility] [place] [address] [place] [phone] Ritu Lab [address] [place] [address] 05/25/2024 12:00 PM EDT Hem/Onc Treatment Hematology/Oncology [address] [phone] Ritu, Chair 3 Hem Onc [place] [address] [place] [address] 06/01/2024 11:00 AM EDT Laboratory Laboratory [facility] Ritu [place] [address] [place] [address] Ritu, Lab Ward [address] [place] [address] 06/01/2024 12:00 PM EDT Hem/Onc Treatment Hematology/Oncology Treatment, [place] [address] [facility] [place] [address] Ritu, Chair 7 Hem Onc Scenery [address] [place] [address] 06/08/2024 10:00 AM EDT Laboratory Laboratory [facility] [address] [place] [address] Ritu, Lab Scenery [address] [place] [address] 06/08/2024 11:00 AM EDT Hem/Onc Treatment Hematology/Oncology Treatment, [place] [address] [facility] [place] [address] Ritu, Chair 7 Hem Onc Scenery [address] [place] [address] 06/15/2024 11:00 AM EDT Laboratory Laboratory [facility] [place] [address] [place] [address] Ritu, Lab Scenery [address] [place] [address] 06/15/2024 12:00 PM EDT Hem/Onc Treatment Hematology/Oncology Treatment, [place] [address] [facility] [place] [address] Ritu, Chair 6 Hem Onc Scenery [address] [place] [address] 06/22/2024 11:00 AM EDT Laboratory Laboratory [facility] [address] [place] [address] Ritu, Lab Scenery [address] [place] [address] 06/22/2024 12:00 PM EDT Hem/Onc Treatment Hematology/Oncology Treatment, [place] [address] [facility] [place] [address] Ritu, Chair 1 Hem Onc Scenery [address] [place] [address] 06/29/2024 11:00 AM EDT Laboratory Laboratory [facility] [place] [address] [place], [place] [address] Ritu, Lab Scenery [address] [place] [address] 06/29/2024 12:00 PM EDT [facility] 200 [facility], [place] [address] Ritu, Chair 10 Hem Onc Scenery [address] [place], [place] [address] 07/06/2024 11:10 AM EDT Laboratory Laboratory [facility] [place] [address] [place], [place] [address] Ritu, Lab Scenery [address] [place], [place] [address] 07/06/2024 12:30 PM EDT [facility] 200 [facility] [place] [address] Ritu, Chair 4 Hem Onc Scenery [address] [place] [address] 07/13/2024 11:00 AM EDT Laboratory Laboratory [facility] Ritu [place] [address] [place], [place] [address] Ritu, Lab Scenery [address] [place] [address] 07/13/2024 11:30 AM EDT Office Visit Hematology/Oncology [facility] [place] [address] [place], [place] [address] Mariana Florez CRNP [address] [facility] [place] [address] 07/13/2024 12:00 PM EDT Hem/Onc Treatment Hematology/Oncology Treatment, [address] [address] Health Maintenance Due Date Last [...] this encounter Medical Devices Implanted Type Area Athletic Shoe Designer Device Identifier Shelf Expiration Date Model / Serial / Lot Screw Elbow Humeral Total - [id number] Implanted:Qty: 1 on 12/23/2018 by Gautam Jasso MD at OR [facility] Right: Upper Arm [employer] 09/13/202700-090 / / [id number] Deisi Nexel Total Elbow Implanted:Qty: 1 on 12/23/2018 by Gautam Jasso MD at OR [facility] Right: Upper Arm 04/13/2023-5 / / [id number] Cement Antibiotic Bone - [id number] Implanted:Qty: 1 on 12/23/2018 by Gautam Jasso MD at OR [facility] Right: Upper Arm RENY : ORTHOPAEDICS 05/13/2020 6197-9-010 / / [id number] Cement Antibiotic Bone - [id number] Implanted:Qty: 1 on 12/23/2018 by Gautam Jasso MD at OR [facility] Right: Upper Arm RENY : ORTHOPAEDICS 05/13/2020 6197-9-010 / / [id number] Stem Compr Srs Mod [id number] - [id number] Implanted:Qty: 1 on 12/23/2018 by Gautam Jasso MD at OR [facility] Right: Upper Arm BIOMET : TRAUMA 01/28/2027 [id number] / / [id number] Deisi Nexel Total Elbow Ulnar Component Implanted:Qty: 1 on 12/23/2018 by Gautam Jasso MD at OR [facility] Right: Upper Arm 07/14/2025 00-8400-025 -07 / / [id number] Comprehensive Srs/Nexel Distal Body Implanted:Qty: 1 on 12/23/2018 by Gautam Jasso MD at OR [facility] Right: Upper Arm 03/03/2028 [id number] / / [id number] Valve Ricky 3 Ultra 26mm - [id number] Implanted:Qty: 1 on 05/27/2022 by Jesús Weber MD at CARDIAC LABS [facility] [employer] [id number] 03/17/2023 [id number] / / Port Implant W/8f Poly Cath - [id number] Implanted:Qty: 1 on 12/29/2022 by Sudhir Lovett DO at OR [facility] Right: Chest CR BARD : PERIPHERAL VASCULAR [id number] 02/12/2024 [id number] / / [id number] documented as of this encounter Procedures Procedure Name Priority Date/Time Associated Diagnosis Comments RADIOLOGY EXAM - GENERAL RAD (IMAGES ONLY,NO REPORT) Routine 05/12/2024 6:55 PM EDT documented in this encounter Results * RADIOLOGY EXAM - GENERAL RAD (IMAGES ONLY,NO REPORT) (05/12/2024 6:55 PM EDT) 05/12/2024 6:44 PM EDT Narrative Scheduling, Silent - 05/22/2024 4:04 PM EDT This is an imaging study not interpreted or resulted by a [facility] or [facility] contracted radiologist. Sachi Soni MD RADIOLOGY (RAD GENER AL) documented in this encounter Advance Directives Documents on File Type Date Recorded Patient Aquarium Specialist Expl anation Power of Plasma Processing Technician 12/12/2018 8:46 AM Healt hcare Power of Plasma Processing Technician Power of Plasma Processing Technician 12/12/2018 8:45 AM Zuleyma ferguson Power of Plasma Processing Technician * Full Code (Latest Code Status [...] the patient have Health Care Power of Plasma Processing Technician? Yes, not currently available * Full Code Date Activated Date Inactivated Comments 11/21/2018 8:53 AM 11/21/2018 2:27 PM This order ref lects the patients wishes and were consensually agreed upon. Care Teams Graphotype Operator Relationship Specialty Start Date End Date Sachi Soni MD [address] [place] [address] PCP - General Family Medicine 05/08/24 documented as of this encounter
--- OUTSIDE RECORDS SUMMARY | 2024-07-01 14:40 | External Medical Summary | Summary of Care ---
Author Name Unknown Organization [facility] Address [address] [place] [address] Phone [phone] Care Team Providers Care Jewish History Professor Name Role Phone Sachi Soni MD Primary Care Provider [phone] Encounter Details Date Type Department Care Team (Latest Contact Info) Description 05/12/2024 6:50 PM EDT - 05/12/2024 6:54 PM EDT Hospital Encounter Radiology Film File [address] [place] [address] Discharge Disposition: Home - Self [...] day. 30 Tab 12/25/2018 Active nystatin (NYSTOP) 187735 UNIT/GM powder Apply topically to affected area [...] 05/23/2024 1:30 PM EDT Office Visit Orthopaedics, [place] [address] [place] [address] Gautam Jasso MD [address] [place] [address] 05/25/2024 11:00 AM EDT Laboratory Laboratory [facility] [place] [address] [place] [phone] Ritu Lab [address] [place] [address] 05/25/2024 12:00 PM EDT Hem/Onc Treatment Hematology/Oncology [address] [address] Ritu, Chair 3 Hem Onc [place] [address] [place] [address] 06/01/2024 11:00 AM EDT Laboratory Laboratory [facility] Ritu [place] [address] [place] [address] Ritu, Lab Ward [address] [place] [address] 06/01/2024 12:00 PM EDT Hem/Onc Treatment Hematology/Oncology Treatment, [place] [address] [place] [address] Ritu, Chair 7 Hem Onc Scenery [address] [place] [address] 06/08/2024 10:00 AM EDT Laboratory Laboratory [facility] [address] [place] [address] Ritu, Lab Scenery [address] [place] [address] 06/08/2024 11:00 AM EDT Hem/Onc Treatment Hematology/Oncology Treatment, [place] [address] [place] [address] Ritu, Chair 7 Hem Onc Scenery [address] [place] [address] 06/15/2024 11:00 AM EDT Laboratory Laboratory [facility] [place] [address] [place] [address] Ritu, Lab Scenery [address] [place] [address] 06/15/2024 12:00 PM EDT Hem/Onc Treatment Hematology/Oncology Treatment, [place] [address] [place] [address] Ritu, Chair 6 Hem Onc Scenery [address] [place] [address] 06/22/2024 11:00 AM EDT Laboratory Laboratory [facility] [address] [place] [address] iRtu, Lab Scenery [address] [place] [address] 06/22/2024 12:00 PM EDT Hem/Onc Treatment Hematology/Oncology Treatment, [place] [address] [place] [address] Ritu, Chair 1 Hem Onc Scenery [address] [place] [address] 06/29/2024 11:00 AM EDT Laboratory Laboratory [facility] [place] [address] [place], [place] [address] Ritu, Lab Scenery [address] [place] [address] 06/29/2024 12:00 PM EDT [facility] [address] [facility], [place] [address] Ritu, Chair 10 Hem Onc Scenery [address] [place], [place] [address] 07/06/2024 11:10 AM EDT Laboratory Laboratory [facility] [place] [address] [place], [place] [address] Ritu, Lab Scenery [address] [place], [place] [address] 07/06/2024 12:30 PM EDT Hem[facility] [address] [place] [address] Ritu, Chair 4 Hem Onc Scenery [address] [place] [address] 07/13/2024 11:00 AM EDT Laboratory Laboratory [facility] Ritu [place] [address] [place], [place] [address] Ritu, Lab Scenery [address] [place] [address] 07/13/2024 11:30 AM EDT Office Visit Hematology/Oncology [facility] [place] [address] [place], [place] [address] Mariana Florez CRNP [address] [facility] [place] [address] 07/13/2024 12:00 PM EDT Hem/Onc Treatment Hematology/Oncology Treatment, [address] [address] Health Maintenance Due Date Last [...] this encounter Medical Devices Implanted Type Area Motion Study Engineer Device Identifier Shelf Expiration Date Model / Serial / Lot Screw Elbow Humeral Total - [id number] Implanted:Qty: 1 on 12/23/2018 by Gautam Jasso MD at OR [facility] Right: Upper Arm [employer] 09/13/202700-090 / / [id number] Deisi Nexel Total Elbow Implanted:Qty: 1 on 12/23/2018 by Gautam Jasso MD at OR [facility] Right: Upper Arm 04/13/2023-5 / / [id number] Cement Antibiotic Bone - [id number] Implanted:Qty: 1 on 12/23/2018 by Gautam Jasso MD at OR [facility] Right: Upper Arm RENY : ORTHOPAEDICS 05/13/2020 6197-9-010 / / [id number] Cement Antibiotic Bone - [id number] Implanted:Qty: 1 on 12/23/2018 by Gautam Jasso MD at OR [facility] Right: Upper Arm RENY : ORTHOPAEDICS 05/13/2020 6197-9-010 / / [id number] Stem Compr Srs Mod [id number] - [id number] Implanted:Qty: 1 on 12/23/2018 by Gautam Jasso MD at OR [facility] Right: Upper Arm BIOMET : TRAUMA 01/28/2027 [id number] / / [id number] Deisi Nexel Total Elbow Ulnar Component Implanted:Qty: 1 on 12/23/2018 by Gautam Jasso MD at OR [facility] Right: Upper Arm 07/14/2025 00-8400-025 -07 / / [id number] Comprehensive Srs/Nexel Distal Body Implanted:Qty: 1 on 12/23/2018 by Gautam Jasso MD at OR [facility] Right: Upper Arm 03/03/2028 [id number] / / [id number] Valve Ricky 3 Ultra 26mm - [id number] Implanted:Qty: 1 on 05/27/2022 by Jesús Weber MD at CARDIAC LABS [facility] [employer] [id number] 03/17/2023 [id number] / / Port Implant W/8f Poly Cath - [id number] Implanted:Qty: 1 on 12/29/2022 by Sudhir Lovett DO at OR [facility] Right: Chest CR BARD : PERIPHERAL VASCULAR [id number] 02/12/2024 [id number] / / [id number] documented as of this encounter Procedures Procedure Name Priority Date/Time Associated Diagnosis Comments RADIOLOGY EXAM - GENERAL RAD (IMAGES ONLY,NO REPORT) Routine 05/12/2024 6:50 PM EDT documented in this encounter Results * RADIOLOGY EXAM - GENERAL RAD (IMAGES ONLY,NO REPORT) (05/12/2024 6:50 PM EDT) 05/12/2024 6:44 PM EDT Narrative Scheduling, Silent - 05/22/2024 4:04 PM EDT This is an imaging study not interpreted or resulted by a [facility] or [facility] contracted radiologist. Sachi Soni MD RADIOLOGY (RAD GENER AL) documented in this encounter Advance Directives Documents on File Type Date Recorded Patient Geochemical Manager Expl anation Power of Outside Sales 12/12/2018 8:46 AM Healt hcare Power of Outside Sales Power of Outside Sales 12/12/2018 8:45 AM Zuleyma ferguson Power of Outside Sales * Full Code (Latest Code Status on [...] the patient have Health Care Power of Outside Sales? Yes, not currently available * Full Code Date Activated Date Inactivated Comments 11/21/2018 8:53 AM 11/21/2018 2:27 PM This order ref lects the patients wishes and were consensually agreed upon. Care Teams Jewish History Professor Relationship Specialty Start Date End Date Sachi Soni MD [address] [place] [address] PCP - General Family Medicine 05/08/24 documented as of this encounter
--- OUTSIDE RECORDS SUMMARY | 2024-07-01 14:40 | External Medical Summary | Summary of Care ---
Author Name Unknown Organization [facility] Address [address] [facility] [place] [address] Phone [phone] Care Team Providers Care Food Service Attendant Name Role Phone Kulwinder Byers MD Primary Care Provider [phone] Reason for Visit * Reason Comments Chemotherapy Cytoxan/Darzalex Fas pro * Episode Based Medications (Routine) - Authorized Specialty Diagnoses / Procedures Referred By Contac t Referred To Contact Diagnoses Multiple myeloma not having achieved remission (HCC) Procedures LA DARATUMUMAB, HYALURONIDASE LA CYCLOPHOSPHAMIDE 100 MG INJ LA INJ, CYCLOPHOSPHAMIDE, NOS Jorge Allen MD [address] [place], [place] [address] Anc Hem/Onc [facility] [place] DEPT CLOSED - 09/27/23 [address] [place] [address] Referral ID Status Reason Start Date Expiration Date V isits Requested Visits Authorized [id number] Authorized 07/23/2022 11/13/2099 999 99 Encounter Details Date Type Department Care Team (Latest Contact Info) Description 04/20/2024 12:00 PM EDT Hem/Onc Treatment Hematology/Oncolog y Treatment, [place] [address] [place] [address] Ritu, Chair 5 Hem Onc Scenery [address] [place] [address] Multiple myeloma not having achieved remission (HCC)*; [...] day. 30 Tab 12/25/2018 Active nystatin (NYSTOP) 250695 UNIT/GM powder Apply topically to affected area [...] 11:00 AM EDT Laboratory Laboratory [facility] [place] [address] [place] [address] [place], Lab Scenery [address] [place] [address] 05/25/2024 12:00 PM EDT Hem/Onc Treatment Hematology/Oncology Treatment, [place] [address] [place] [address] [place], Chair 3 Hem Onc Scenery [address] [place] [address] 06/01/2024 11:00 AM EDT Laboratory Laboratory Scenery [facility] [address] [place] [address] Ritu, Lab Scenery [address] [place] [address] 06/01/2024 12:00 PM EDT Hem/Onc Treatment Hematology/Oncology Treatment, [place] [address] [place] [address] Ritu, Chair 7 Hem Onc Scenery [address] [place] [address] 06/08/2024 10:00 AM EDT Laboratory Laboratory [facility] [place] [address] [place] [address] Ritu, Lab Scenery [address] [place] [address] 06/08/2024 11:00 AM EDT [facility] [address] [place] [address] Ritu, Chair 1 Hem Onc Scenery [address] [place] [address] 06/15/2024 11:00 AM EDT Laboratory Laboratory [facility] [place] [address] [place] [address] Ritu, Lab Scenery [address] [place] [address] 06/15/2024 12:00 PM EDT Hem/Onc Treatment Hematology/Oncology Treatment, [place] [address] [place] [address] Ritu, Chair 6 Hem Onc Scenery [address] [place] [address] 06/22/2024 11:00 AM EDT Laboratory Laboratory Scenery [place] [address] [place] [address] Ritu, Lab Scenery [address] [place] [address] 06/22/2024 12:00 PM EDT Hem/Onc Treatment Hematology/Oncology Treatment, [place] [address] [facility], [place] [address] Ritu, Chair 1 Hem Onc Scenery [address] [place], [place] [address] 06/29/2024 11:00 AM EDT Laboratory Laboratory Scenery [place] [address] [place], [place] [address] Ritu, Lab Scenery [address] [place] [address] 06/29/2024 12:00 PM EDT Hem/Onc Treatment Hematology/Oncology Treatment, [place] [address] [place] [address] Ritu, Chair 10 Hem Onc Scenery [address] [place] [address] 07/06/2024 11:10 AM EDT Laboratory Laboratory Scenery Ritu [place] [address] [place] [address] Ritu, Lab Scenery [address] [place] [address] 07/06/2024 12:30 PM EDT Hem/Onc Treatment Hematology/Oncology Treatment, [place] [address] [place] [address] Ritu, Chair 4 Hem Onc [facility] [address] [facility] [place], [place] [address] 07/13/2024 11:00 AM EDT Laboratory Laboratory [facility] [address] [facility] [place] [address] [place], Lab [facility] [address] [facility] [place], [place] [address] 07/13/2024 11:30 AM EDT Office Visit Hematology/Oncology [facility] [address] [facility] [place], [place] [address] Mariana Florez CRNP [address] [place] [address] 07/13/2024 12:00 PM EDT Hem/Onc Treatment Hematology/Oncology [facility], [place] [address] [facility] [address] Health Maintenance Due Date Last [...] this encounter Medical Devices Implanted Type Area Blowing Weasand Device Identifier Shelf Expiration Date Model / Serial / Lot Screw Elbow Humeral Total - [id number] Implanted:Qty: 1 on 12/23/2018 by Gautam Jasso MD at OR [facility] [place] [facility] Right: Upper Arm [employer] 09/13/2027 / / [id number] Deisi Nexel Total Elbow Implanted:Qty: 1 on 12/23/2018 by Gautam Jasso MD at OR [facility] [place] Right: Upper Arm 04/13/2023 / / [id number] Cement Antibiotic Bone - [id number] Implanted:Qty: 1 on 12/23/2018 by Gautam Jasso MD at OR [facility] [place] [facility] Right: Upper Arm RENY : ORTHOPAEDICS 05/13/2020 6197-9-010 / / [id number] Cement Antibiotic Bone - [id number] Implanted:Qty: 1 on 12/23/2018 by Gautam Jasso MD at OR [facility] [place] [facility] Right: Upper Arm RENY : ORTHOPAEDICS 05/13/2020 6197-9-010 / / [id number] Stem Compr Srs Mod 3p580xd - [id number] Implanted:Qty: 1 on 12/23/2018 by Gautam Jasso MD at OR [facility] [place] Right: Upper Arm BIOMET : TRAUMA 01/28/2027 [id number] / / [id number] Deisi Nexel Total Elbow Ulnar Component Implanted:Qty: 1 on 12/23/2018 by Gautam Jasso MD at OR [facility] [place] Right: Upper Arm 07/14/202500-025 -07 / / [id number] Comprehensive Srs/Nexel Distal Body Implanted:Qty: 1 on 12/23/2018 by Gautam Jasso MD at OR [facility] Right: Upper Arm 03/03/2028 [id number] / / [id number] Valve Ricky 3 Ultra 26mm - [id number] Implanted:Qty: 1 on 05/27/2022 by Jesús Weber MD at [facility]ARDIAC LABS [facility] [place] [employer] [id number] 03/17/2023 [id number] / / Port Implant W/8f Poly Cath - [id number] Implanted:Qty: 1 on 12/29/2022 by Sudhir Lovett DO at OR [facility] Right: Chest CR BARD : PERIPHERAL VASCULAR [id number] 02/12/2024 [id number] / / [id number] documented as of this encounter Visit Diagnoses [...] 516.2 mL/hr Daratumumab-hyaluronida se-fihj (Darzalex Faspro) 1800 mg-03897 units/ 15 ml subcut inj 15 mL, [...] Documents on File Type Date Recorded Patient Test Tech Expl anation Power of Tooler 12/12/2018 8:46 AM Vipin viveros Power of Tooler Power of Tooler 12/12/2018 8:45 AM Zuleyma ferguson Power of Tooler * Full Code (Latest Code Status on [...] the patient have Health Care Power of Tooler? Yes, not currently available * Full Code Date Activated Date Inactivated Comments 11/21/2018 8:53 AM 11/21/2018 2:27 PM This order ref lects the patients wishes and were consensually agreed upon. Care Teams Food Service Attendant Relationship Specialty Start Date End Date Kulwinder Byers MD [address] [place] [address] PCP - General 06/28/03 05/07/24 documented as of this encounter
--- OUTSIDE RECORDS SUMMARY | 2024-07-01 14:40 | External Medical Summary | Summary of Care ---
Author Name Unknown Organization [facility] Address [address] [place] [address] Phone [phone] Care Team Providers Care Green Tire Inspector Name Role Phone Sachi Soni MD Primary Care Provider [phone] Reason for Visit * Reason Comments Follow Up Right arm pain Encounter Details Date Type Department Care Team (Late st Contact Info) Description 05/23/2024 1:30 PM EDT Office Visit Orthopaedics, [place] [address] [place], [place] [id number] Gautam Jasso MD [address], [place] [id number] Multiple myeloma not having achieved remission (HCC)* [...] day. 30 Tab 12/25/2018 Active nystatin (NYSTOP) 796521 UNIT/GM powder Apply topically to affected area [...] Description 05/25/2024 11:00 AM EDT Laboratory Laboratory [place] [address] [place] [address] Ritu Lab [place] [address] [address] [place] [address] 05/25/2024 12:00 PM EDT Hem/Onc Treatment [facility], [place] [facility] [address] Ritu, Chair 3 Hem Onc [place] [address] [address] [place] [address] 06/01/2024 11:00 AM EDT Laboratory Laboratory [place], [address] [place] [address] Park, Lab Scenery [address] [place] [address] 06/01/2024 12:00 PM EDT Hem/Onc Treatment Hematology/Oncology Treatment, [place] [address] [facility] [place] [address] Park, Chair 7 Hem Onc [place] [address] [place] [address] 06/08/2024 10:00 AM EDT Laboratory Laboratory [facility] [place] [address] [place] [address] Ritu, Lab Scenery [address] [place] [address] 06/08/2024 11:00 AM EDT Hem/Onc Treatment Hematology/Oncology Treatment, [place] [address] [place] [address] Ritu, Chair 7 Hem Onc [place] [address] [place] [address] 06/15/2024 11:00 AM EDT Laboratory Laboratory [facility] [address] [place] [address] Ritu, Lab Scenery [address] [place] [address] 06/15/2024 12:00 PM EDT [facility] [address] [place] [address] Ritu, Chair 6 Hem Onc [place] [address] [place] [address] 06/22/2024 11:00 AM EDT Laboratory Laboratory [facility] [place] [address] [place] [address] Ritu, Lab Scenery [address] [place] [address] 06/22/2024 12:00 PM EDT Hem/Onc Treatment Hematology/Oncology Treatment, [place] [address] [place] [address] Ritu, Chair 1 Hem Onc [place] [address] [place] [address] 06/29/2024 11:00 AM EDT Laboratory Laboratory [facility] [address] [place] [address] Ritu, Lab Scenery [address] [place] [address] 06/29/2024 12:00 PM EDT Hem/Onc Treatment Hematology/Oncology Treatment, [place] [address] [place] [address] Ritu, Chair 10 Hem Onc Sc[place]ery [address] [place], [place] [address] 07/06/2024 11:10 AM EDT Laboratory Laboratory [facility] [address] [place] [address] Ritu, Lab Scenery [address] [place] [address] 07/06/2024 12:30 PM EDT [facility] [address] [place] [address] Ritu, Chair 4 Hem Onc Scenery [address] [place] [address] 07/13/2024 11:00 AM EDT Laboratory Laboratory [facility] [place] [address] [place] [address] Ritu, Lab Scenery [address] [place] [address] 07/13/2024 11:30 AM EDT Office Visit Hematology/Oncology [facility] [address] Mariana Florez CRNP [address] [place] [address] 07/13/2024 12:00 PM EDT Hem/Onc Treatment Hematology/Oncology Treatment, [place] 200 [facility] [place] [address] Pending Results Name Type Priority Associated Diagnoses Date /Time XR FOREARM 2 VIEWS Medical Imaging STAT Multiple myeloma not having achieved remission (HCC) 05/23/2024 2:35 PM EDT XR HAND 3 OR MORE VIEWS Medical Imaging Routine Multiple myeloma not having achieved remission (HCC) 05/23/2024 2:35 PM EDT XR WRIST 3 OR MORE VIEWS Medical Imaging Routine Multiple myeloma not having achieved remission (HCC) 05/23/2024 2:35 PM EDT Health Maintenance Due Date Last [...] encounter Medical Devices Implanted Type Area Front End Specialist Device Identifier Shelf Expiration Date Model / Serial / Lot Screw Elbow Humeral Total - [id number] Implanted:Qty: 1 on 12/23/2018 by Gautam Jasso MD at OR [facility] Right: Upper Arm [employer] 09/13/20278400-090 - / / [id number] Deisi Nexel Total Elbow Implanted:Qty: 1 on 12/23/2018 by Gautam Jasso MD at OR [facility] Right: Upper Arm 04/13/2023-5 / / [id number] Cement Antibiotic Bone - [id number] Implanted:Qty: 1 on 12/23/2018 by Gautam Jasso MD at OR [facility] Right: Upper Arm RENY : ORTHOPAEDICS 05/13/2020 6197-9-010 / / [id number] Cement Antibiotic Bone - [id number] Implanted:Qty: 1 on 12/23/2018 by Gautam Jasso MD at OR [facility] Right: Upper Arm RENY : ORTHOPAEDICS 05/13/2020 6197-9-010 / / [id number] Stem Compr Srs Mod [id number] - [id number] Implanted:Qty: 1 on 12/23/2018 by Gautam Jasso MD at OR [facility] Right: Upper Arm BIOMET : TRAUMA 01/28/2027 [id number] / / [id number] Deisi Nexel Total Elbow Ulnar Component Implanted:Qty: 1 on 12/23/2018 by Gautam Jasso MD at OR [facility] Right: Upper Arm 07/14/202500-025 - / / [id number] Comprehensive Srs/Nexel Distal Body Implanted:Qty: 1 on 12/23/2018 by Gautam Jasso MD at OR [facility] Right: Upper Arm 03/03/2028 [id number] / / [id number] Valve Ricky 3 Ultra 26mm - [id number] Implanted:Qty: 1 on 05/27/2022 by Jesús Weber MD at CARDIAC LABS [facility] knowNormal [id number] 03/17/2023 [id number] / / Port Implant W/8f Poly Cath - [id number] Implanted:Qty: 1 on 12/29/2022 by Sudhir Lovett, at OR [facility] Right: Chest CR BARD : PERIPHERAL VASCULAR [id number] 02/12/2024 [id number] / / [id number] documented as of this encounter Visit Diagnoses Diagnosis Multiple myeloma not having achieved remission (HCC)- Primary Multiple myeloma, without mention of having achieved remission documented in this encounter Advance Directives Documents on File Type Date Recorded Patient Video Coordinator Expl anation Power of Children'S Program Coordinator 12/12/2018 8:46 AM Healt hcare Power of Children'S Program Coordinator Power of Children'S Program Coordinator 12/12/2018 8:45 AM Zuleyma ferguson Power of Children'S Program Coordinator * Full Code (Latest Code Status [...] the patient have Health Care Power of Children'S Program Coordinator? Yes, not currently available * Full Code Date Activated Date Inactivated Comments 11/21/2018 8:53 AM 11/21/2018 2:27 PM This order ref lects the patients wishes and were consensually agreed upon. Care Teams Green Tire Inspector Relationship Specialty Start Date End Date Sachi Soni MD [address] [place] [address] PCP - General Family Medicine 05/08/24 documented as of this encounter
--- OUTSIDE RECORDS SUMMARY | 2024-07-01 14:40 | External Medical Summary | Summary of Care ---
Author Name Unknown Organization [facility] Address [address] [facility] [place] [address] Phone [phone] Care Team Providers Care Vac Press Operator Name Role Phone Kulwinder Byers MD Primary Care Provider [phone] Reason for Visit * Reason Comments Chemotherapy Cytoxan/Darzalex Fas pro * Episode Based Medications (Routine) - Authorized Specialty Diagnoses / Procedures Referred By Contac t Referred To Contact Diagnoses Multiple myeloma not having achieved remission (HCC) Procedures CO DARATUMUMAB, HYALURONIDASE CO CYCLOPHOSPHAMIDE 100 MG INJ CO INJ, CYCLOPHOSPHAMIDE, NOS Jorge Allen MD [address] [place], [place] [address] Anc Hem/Onc [place] DEPT CLOSED - 09/27/23 [address] [place] [address] Referral ID Status Reason Start Date Expiration Date V isits Requested Visits Authorized [id number] Authorized 07/23/2022 11/13/2099 999 99 Encounter Details Date Type Department Care Team (Latest Contact Info) Description 04/20/2024 12:00 PM EDT Hem/Onc Treatment Hematology/Oncolog y Treatment, [place] [address] [place] [address] Ritu, Chair 5 Hem Onc [place]en[place] [address] [place] [address] Multiple myeloma not having achieved remission (HCC)*; [...] day. 30 Tab 12/25/2018 Active nystatin (NYSTOP) 183738 UNIT/GM powder Apply topically to affected area [...] 11:00 AM EDT Laboratory Laboratory [place] [address] [place] [address] [place], Lab Scenery [address] [place] [address] 05/25/2024 12:00 PM EDT Hem/Onc Treatment Hematology/Oncology Treatment, [place] 200 [place] [address] Park, Chair 3 Hem Onc [place] [address] [place] [address] 06/01/2024 11:00 AM EDT Laboratory Laboratory [place] [facility] [address] [place] [address] Ritu, Lab Scenery [address] [place] [address] 06/01/2024 12:00 PM EDT Hem/Onc Treatment Hematology/Oncology Treatment, [place] 200 [place] [address] Ritu, Chair 7 Hem Onc Scenery [address] [place] [address] 06/08/2024 10:00 AM EDT Laboratory Laboratory [facility] [place] [address] [place] [address] Ritu, Lab Scenery [address] [place] [address] 06/08/2024 11:00 AM EDT [facility] 200 [place] [address] Ritu, Chair 1 Hem Onc Scenery [address] [place] [address] 06/15/2024 11:00 AM EDT Laboratory Laboratory [facility] [place] [address] [place] [address] Ritu, Lab Scenery [address] [place] [address] 06/15/2024 12:00 PM EDT Hem/Onc Treatment Hematology/Oncology Treatment, [place] 200 [place] [address] Ritu, Chair 6 Hem Onc Scenery [address] [place] [address] 06/22/2024 11:00 AM EDT Laboratory Laboratory [place]ery [place] [address] [place] [address] Ritu, Lab Scenery [address] [place] [address] 06/22/2024 12:00 PM EDT Hem/Onc Treatment Hematology/Oncology Treatment, [place] 200 [facility], [place] [address] Ritu, Chair 1 Hem Onc Scenery [address] [place], [place] [address] 06/29/2024 11:00 AM EDT Laboratory Laboratory [place]ery [place] [address] [place], [place] [address] Ritu, Lab Scenery [address] [place] [address] 06/29/2024 12:00 PM EDT Hem/Onc Treatment Hematology/Oncology Treatment, [place] 200 [place] [address] Ritu, Chair 10 Hem Onc Scenery [address] [place] [address] 07/06/2024 11:10 AM EDT Laboratory Laboratory Scenery Ritu [place] [address] [place] [address] Ritu, Lab Scenery [address] [place] [address] 07/06/2024 12:30 PM EDT Hem/Onc Treatment Hematology/Oncology Treatment, [place] 200 [place] [address] Ritu, Chair 4 Hem Onc [facility] [address] [facility] [place], [place] [address] 07/13/2024 11:00 AM EDT Laboratory Laboratory [facility] [address] [facility] [place] [address] [place], Lab [facility] [address] [facility] [place], [place] [address] 07/13/2024 11:30 AM EDT Office Visit Hematology/Oncology [facility] 200 [facility] [place], [place] [address] Mariana Florez CRNP [address] [place] [address] 07/13/2024 12:00 PM EDT Hem/Onc Treatment Hematology/Oncology Treatment, [place] [address] [facility] [address] Health Maintenance Due Date Last [...] this encounter Medical Devices Implanted Type Area Meeting Coordinator Device Identifier Shelf Expiration Date Model / Serial / Lot Screw Elbow Humeral Total - [id number] Implanted:Qty: 1 on 12/23/2018 by Gautam Jasso MD at [place] [facility] Right: Upper Arm [employer] 09/13/2027 / / [id number] Deisi Nexel Total Elbow Implanted:Qty: 1 on 12/23/2018 by Gautam Jasso MD at OR [facility] Right: Upper Arm 04/13/2023 / / [id number] Cement Antibiotic Bone - [id number] Implanted:Qty: 1 on 12/23/2018 by Gautam Jasso MD at OR [facility] Right: Upper Arm RENY : ORTHOPAEDICS 05/13/2020 6197-9-010 / / [id number] Cement Antibiotic Bone - [id number] Implanted:Qty: 1 on 12/23/2018 by Gautam Jasso MD at OR [facility] Right: Upper Arm RENY : ORTHOPAEDICS 05/13/2020 6197-9-010 / / [id number] Stem Compr Srs Mod [id number] - [id number] Implanted:Qty: 1 on 12/23/2018 by Gautam Jasso MD at OR [facility] Right: Upper Arm BIOMET : TRAUMA 01/28/2027 [id number] / / [id number] Deisi Nexel Total Elbow Ulnar Component Implanted:Qty: 1 on 12/23/2018 by Gautam Jasso MD at OR [facility] Right: Upper Arm 07/14/202500-025 -07 / / [id number] Comprehensive Srs/Nexel Distal Body Implanted:Qty: 1 on 12/23/2018 by Gautam Jasso MD at OR [facility] Right: Upper Arm 03/03/2028 [id number] / / [id number] Valve Ricky 3 Ultra 26mm - [id number] Implanted:Qty: 1 on 05/27/2022 by Jesús Weber MD at CARDIAC LABS [facility] [employer] [id number] 03/17/2023 [id number] / / Port Implant W/8f Poly Cath - [id number] Implanted:Qty: 1 on 12/29/2022 by Sudhir Lovett DO at OR [facility] Right: Chest CR BARD : PERIPHERAL VASCULAR [id number] 02/12/2024 [id number] / / [id number] documented as of this encounter Visit Diagnoses [...] 516.2 mL/hr Daratumumab-hyaluronida se-fihj (Darzalex Faspro) 1800 mg-48373 units/ 15 ml subcut inj 15 mL, [...] Documents on File Type Date Recorded Patient Flatbed Driver Expl anation Power of Chicken Fancier 12/12/2018 8:46 AM Vipin viveros Power of Chicken Fancier Power of Chicken Fancier 12/12/2018 8:45 AM Zuleyma ferguson Power of Chicken Fancier * Full Code (Latest Code Status on [...] the patient have Health Care Power of Chicken Fancier? Yes, not currently available * Full Code Date Activated Date Inactivated Comments 11/21/2018 8:53 AM 11/21/2018 2:27 PM This order ref lects the patients wishes and were consensually agreed upon. Care Teams Vac Press Operator Relationship Specialty Start Date End Date Kulwinder Byers MD [address] [place] [address] PCP - General 06/28/03 05/07/24 documented as of this encounter
--- OUTSIDE RECORDS SUMMARY | 2024-07-01 14:40 | External Medical Summary | Summary of Care ---
Author Name Unknown Organization [facility] Address [address] [place] [address] Phone [phone] Care Team Providers Care System Integration Engineer Name Role Phone Sachi Soni MD Primary Care Provider [phone] Encounter Details Date Type Department Care Team (Latest Contact Info) Description 05/12/2024 7:05 PM EDT - 05/12/2024 7:09 PM EDT Hospital Encounter Radiology Film File [address] [place] [address] Discharge Disposition: Home - Self [...] day. 30 Tab 12/25/2018 Active nystatin (NYSTOP) 891443 UNIT/GM powder Apply topically to affected area [...] 05/23/2024 1:30 PM EDT Office Visit Orthopaedics, [place] [address] [place] [address] Gautam Jasso MD [address] [place] [address] 05/25/2024 11:00 AM EDT Laboratory Laboratory [facility] [place] [address] [place] [phone] Ritu Lab [address] [place] [address] 05/25/2024 12:00 PM EDT Hem/Onc Treatment Hematology/Oncology [address] [address] Ritu, Chair 3 Hem Onc [place] [address] [place] [address] 06/01/2024 11:00 AM EDT Laboratory Laboratory [facility] Ritu [place] [address] [place] [address] Ritu, Lab [place] [address] [place] [address] 06/01/2024 12:00 PM EDT Hem/Onc Treatment Hematology/Oncology Treatment, [place] 200 [facility] [place] [address] Ritu, Chair 7 Hem Onc Scenery [address] [place] [address] 06/08/2024 10:00 AM EDT Laboratory Laboratory [facility] [address] [place] [address] Ritu, Lab Scenery [address] [place] [address] 06/08/2024 11:00 AM EDT Hem/Onc Treatment Hematology/Oncology Treatment, [place] 200 [facility] [place] [address] Ritu, Chair 7 Hem Onc Scenery [address] [place] [address] 06/15/2024 11:00 AM EDT Laboratory Laboratory [facility] [place] [address] [place] [address] Ritu, Lab Scenery [address] [place] [address] 06/15/2024 12:00 PM EDT Hem/Onc Treatment Hematology/Oncology Treatment, [place] 200 [facility] [place] [address] Ritu, Chair 6 Hem Onc Scenery [address] [place] [address] 06/22/2024 11:00 AM EDT Laboratory Laboratory [facility] [address] [place] [address] Ritu, Lab Scenery [address] [place] [address] 06/22/2024 12:00 PM EDT Hem/Onc Treatment Hematology/Oncology Treatment, [place] 200 [facility] [place] [address] Ritu, Chair 1 Hem Onc Scenery [address] [place] [address] 06/29/2024 11:00 AM EDT Laboratory Laboratory [facility] [place] [address] [place], [place] [address] Ritu, Lab Scenery [address] [place] [address] 06/29/2024 12:00 PM EDT [facility] 200 [facility], [place] [address] Ritu, Chair 10 Hem Onc Scenery [address] [place], [place] [address] 07/06/2024 11:10 AM EDT Laboratory Laboratory [facility] [place] [address] [place], [place] [address] Ritu, Lab Scenery [address] [place], [place] [address] 07/06/2024 12:30 PM EDT Hem[facility] 200 [facility] [place] [address] Ritu, Chair 4 Hem Onc Scenery [address] [place] [address] 07/13/2024 11:00 AM EDT Laboratory Laboratory [facility] Ritu [place] [address] [place], [place] [address] Ritu, Lab Scenery [address] [place] [address] 07/13/2024 11:30 AM EDT Office Visit Hematology/Oncology [facility] [place] [address] [place], [place] [address] [place] Florez CRNP [address] [facility] [place] [address] 07/13/2024 12:00 PM EDT Hem/Onc Treatment Hematology/Oncology Treatment, [address] [address] Health Maintenance Due Date Last [...] this encounter Medical Devices Implanted Type Area Drug Room Operator Device Identifier Shelf Expiration Date Model / Serial / Lot Screw Elbow Humeral Total - [id number] Implanted:Qty: 1 on 12/23/2018 by Gautam Jasso MD at [place] [facility] Right: Upper Arm [employer] 09/13/202700-090 / / [id number] Deisi Nexel Total Elbow Implanted:Qty: 1 on 12/23/2018 by Gautam Jasso MD at [place] [facility] Right: Upper Arm 04/13/2023-5 / / [id number] Cement Antibiotic Bone - [id number] Implanted:Qty: 1 on 12/23/2018 by Gautam Jasso MD at OR [facility] Right: Upper Arm RENY : ORTHOPAEDICS 05/13/2020 6197-9-010 / / [id number] Cement Antibiotic Bone - [id number] Implanted:Qty: 1 on 12/23/2018 by Gautam Jasso MD at [place] [facility] Right: Upper Arm RENY : ORTHOPAEDICS 05/13/2020 6197-9-010 / / [id number] Stem Compr Srs Mod [id number] - [id number] Implanted:Qty: 1 on 12/23/2018 by Gautam Jasso MD at [place] [facility] Right: Upper Arm BIOMET : TRAUMA 01/28/2027 [id number] / / [id number] Deisi Nexel Total Elbow Ulnar Component Implanted:Qty: 1 on 12/23/2018 by Gautam Jasso MD at [place] [facility] Right: Upper Arm 07/14/2025 00-8400-025 -07 / / [id number] Comprehensive Srs/Nexel Distal Body Implanted:Qty: 1 on 12/23/2018 by Gautam Jasso MD at [place] [facility] Right: Upper Arm 03/03/2028 [id number] / / [id number] Valve Ricky 3 Ultra 26mm - [id number] Implanted:Qty: 1 on 05/27/2022 by Jesús Weber MD at CARDIAC LABS [facility] [employer] [id number] 03/17/2023 [id number] / / Port Implant W/8f Poly Cath - [id number] Implanted:Qty: 1 on 12/29/2022 by Sudhir Lovett DO at OR [facility] Right: Chest CR BARD : PERIPHERAL VASCULAR [id number] 02/12/2024 [id number] / / [id number] documented as of this encounter Procedures Procedure Name Priority Date/Time Associated Diagnosis Comments RADIOLOGY EXAM - GENERAL RAD (IMAGES ONLY,NO REPORT) Routine 05/12/2024 7:05 PM EDT documented in this encounter Results * RADIOLOGY EXAM - GENERAL RAD (IMAGES ONLY,NO REPORT) (05/12/2024 7:05 PM EDT) 05/12/2024 6:36 PM EDT Narrative Scheduling, Silent - 05/22/2024 4:07 PM EDT This is an imaging study not interpreted or resulted by a [facility] or [facility] contracted radiologist. Sachi Soni MD RADIOLOGY (RAD GENER AL) documented in this encounter Advance Directives Documents on File Type Date Recorded Patient Wood Machinist Apprentice Expl anation Power of Mental Health Orderly 12/12/2018 8:46 AM Healt hcare Power of Mental Health Orderly Power of Mental Health Orderly 12/12/2018 8:45 AM Zuleyma ferguson Power of Mental Health Orderly * Full Code (Latest Code Status on [...] the patient have Health Care Power of Mental Health Orderly? Yes, not currently available * Full Code Date Activated Date Inactivated Comments 11/21/2018 8:53 AM 11/21/2018 2:27 PM This order ref lects the patients wishes and were consensually agreed upon. Care Teams System Integration Engineer Relationship Specialty Start Date End Date Sachi Soni MD [address] [place] [address] PCP - General Family Medicine 05/08/24 documented as of this encounter
--- OUTSIDE RECORDS SUMMARY | 2024-07-01 14:41 | External Medical Summary | Summary of Care ---
Author Name Unknown Organization [facility] Address [address] [place] [place] [address] Phone [phone] Care Team Providers Care Occupational Analyst Name Role Phone Sachi Soni MD Primary Care Provider [phone] Encounter Details Date Type Department Care Team (Late st Contact Info) Description 05/12/2024 Orders Only Unspecified Department Sachi Soni MD [address] [place], [place] [phone] Allergies Active Allergy Reactions Criticality Noted Date Comments Adhesive Tape 05/28/2003 documented as of this encounter (statuses as of 05/22/2024) Medications Medication Sig Dispensed Refills Start Date [...] day. 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 Aortic valve stenosis 2021 documented as of this encounter (statuses as of 05/22/2024) Social History Tobacco Use Types Packs/Day Years [...] 05/23/2024 1:30 PM EDT Office Visit Orthopaedics, [place] [address] [place] [address] Gautam Jasso MD [address] [place] [address] 05/25/2024 11:00 AM EDT Laboratory Laboratory [facility] [place] [address] [place] [address] Ritu Lab [address] [place] [address] 05/25/2024 12:00 PM EDT Hem/Onc Treatment Hematology/Oncology Treatment, [address] [phone] Ritu, Chair 3 Hem Onc [facility] [address] [place] [address] 06/01/2024 11:00 AM EDT Laboratory Laboratory [address] [place] [address] [place] [address] Ritu, Lab Ward [address] [place] [address] 06/01/2024 12:00 PM EDT Hem/Onc Treatment Hematology/Oncology Treatment, [place] [address] [facility] [place] [address] Park, Chair 7 Hem Onc [address] [place] [address] 06/08/2024 10:00 AM EDT Laboratory Laboratory [facility] [address] [place] [address] Ritu, Lab Scenery [address] [place] [address] 06/08/2024 11:00 AM EDT Hem/Onc Treatment Hematology/Oncology Treatment, [place] [address] [facility] [place] [address] Ritu, Chair 7 Hem Onc Sc[address] [place] [address] 06/15/2024 11:00 AM EDT Laboratory Laboratory [facility] [address] [place] [address] Ritu, Lab Scenery [address] [place] [address] 06/15/2024 12:00 PM EDT Hem/Onc Treatment Hematology/Oncology Treatment, [place] [address] [facility] [place] [address] Ritu, Chair 6 Hem Onc Scen[address] [place] [address] 06/22/2024 11:00 AM EDT Laboratory Laboratory [facility] [address] [place] [address] Ritu, Lab Scenery [address] [place] [address] 06/22/2024 12:00 PM EDT Hem/Onc Treatment Hematology/Oncology Treatment, [place] [address] [facility] [place] [address] Ritu, Chair 1 Hem Onc Sc[address] [place] [address] 06/29/2024 11:00 AM EDT Laboratory Laboratory [facility] Ritu [place] [address] [place], [place] [address] Ritu, Lab Scenery [address] [place], [place] [address] 06/29/2024 12:00 PM EDT [facility] [address] [facility], [place] [address] Ritu, Chair 10 Hem Onc Sc[address] [place], [place] [address] 07/06/2024 11:10 AM EDT Laboratory Laboratory [facility] Ritu [place] [address] [place], [place] [address] Ritu, Lab Scenery [address] [place], [place] [address] 07/06/2024 12:30 PM EDT Hem[facility] [address] [facility], [place] [address] Ritu, Chair 4 Hem Onc Sc[address] [place], [place] [address] 07/13/2024 11:00 AM EDT Laboratory Laboratory [facility] Ritu [place] [address] [place], [place] [address] Ritu, Lab Scenery [address] [place], [place] [address] 07/13/2024 11:30 AM EDT Office Visit Hematology/Oncology [facility] Ritu [place] [address] [place], [place] [address] Mariana Florez CRNP [address] [facility] [place] [address] 07/13/2024 12:00 PM EDT Hem/Onc Treatment Hematology/Oncology Treatment, [address] [address] Health Maintenance Due Date Last [...] this encounter Medical Devices Implanted Type Area Program Schedule Clerk Device Identifier Shelf Expiration Date Model / Serial / Lot Screw Elbow Humeral Total - [id number] Implanted:Qty: 1 on 12/23/2018 by Gautam Jasso MD at [place] [facility] Right: Upper Arm [employer] 09/13/202700-090 / / [id number] Deisi Nexel Total Elbow Implanted:Qty: 1 on 12/23/2018 by Gautam Jasso MD at OR [facility] Right: Upper Arm 04/13/2023-5 / / [id number] Cement Antibiotic Bone - [id number] Implanted:Qty: 1 on 12/23/2018 by Gautam Jasso MD at OR [facility] Right: Upper Arm RENY : ORTHOPAEDICS 05/13/2020 6197-9-010 / / [id number] Cement Antibiotic Bone - [id number] Implanted:Qty: 1 on 12/23/2018 by Gautam Jasso MD at OR [facility] Right: Upper Arm RENY : ORTHOPAEDICS 05/13/2020 6197-9-010 / / [id number] Stem Compr Srs Mod 2b083bl - [id number] Implanted:Qty: 1 on 12/23/2018 by Gautam Jasso MD at OR [facility] Right: Upper Arm BIOMET : TRAUMA 01/28/2027 [id number] / / [id number] Deisi Nexel Total Elbow Ulnar Component Implanted:Qty: 1 on 12/23/2018 by Gautam Jasso MD at OR [facility] Right: Upper Arm 07/14/2025 00-8400-025 -07 / / [id number] Comprehensive Srs/Nexel Distal Body Implanted:Qty: 1 on 12/23/2018 by Gautam Jasso MD at OR [facility] Right: Upper Arm 03/03/2028 [id number] / / [id number] Valve Ricky 3 Ultra 26mm - [id number] Implanted:Qty: 1 on 05/27/2022 by Jesús Weber MD at [facility]ARD[facility]AC LABS [facility] [employer] [id number] 03/17/2023 [id number] / / Port Implant W/8f Poly Cath - [id number] Implanted:Qty: 1 on 12/29/2022 by Sudhir Lovett DO at OR [facility] Right: Chest CR BARD : PERIPHERAL VASCULAR [id number] 02/12/2024 [id number] / / [id number] documented as of this encounter Procedures Procedure [...] Documents on File Type Date Recorded Patient Activities Volunteer Expl anation Power of Color Television Console Monitor 12/12/2018 8:46 AM Yungt felice Power of Color Television Console Monitor Power of Color Television Console Monitor 12/12/2018 8:45 AM Zuleyma ferguson Power of Color Television Console Monitor * Full Code (Latest Code Status on [...] the patient have Health Care Power of Color Television Console Monitor? Yes, not currently available * Full Code Date Activated Date Inactivated Comments 11/21/2018 8:53 AM 11/21/2018 2:27 PM This order ref lects the patients wishes and were consensually agreed upon. Care Teams Occupational Analyst Relationship Specialty Start Date End Date Sachi Soni MD [address] [place] [address] PCP - General Family Medicine 05/08/24 documented as of this encounter
--- OUTSIDE RECORDS SUMMARY | 2024-07-01 14:41 | External Medical Summary | Summary of Care ---
Author Name Unknown Organization [facility] Address [address] [place] [place] [address] Phone [phone] Care Team Providers Care Architecture Faculty Member Name Role Phone Sachi Soni MD Primary Care Provider [phone] Encounter Details Date Type Department Care Team (Late st Contact Info) Description 05/12/2024 Orders Only Unspecified Department Sachi Soni MD [address], [place] [phone] Allergies Active Allergy Reactions Criticality Noted Date [...] day. 30 Tab 12/25/2018 Active nystatin (NYSTOP) 091246 UNIT/GM powder Apply topically to affected area [...] 05/23/2024 1:30 PM EDT Office Visit Orthopaedics, [place] [address] [place] [address] Gautam Jasso MD [address] [place] [address] 05/25/2024 11:00 AM EDT Laboratory Laboratory [facility] [place] [address] [place] [address] Ritu Lab [address] [place] [address] 05/25/2024 12:00 PM EDT Hem/Onc Treatment Hematology/Oncology Treatment, [address] [address] Ritu, Chair 3 Hem Onc [facility] [address] [place] [address] 06/01/2024 11:00 AM EDT Laboratory Laboratory [address] [place] [address] [place] [address] Ritu, Lab Ward [address] [place] [address] 06/01/2024 12:00 PM EDT Hem/Onc Treatment Hematology/Oncology Treatment, [place] [address] [facility] [place]ydia [place] [address] Park, Chair 7 Hem Onc [address] [place] [address] 06/08/2024 10:00 AM EDT Laboratory Laboratory [facility] [address] [place] [address] Ritu, Lab Scenery [address] [place] [address] 06/08/2024 11:00 AM EDT Hem/Onc Treatment Hematology/Oncology Treatment, [place] [address] [facility] [place] [address] Rtiu, Chair 7 Hem Onc [address] [place] [address] 06/15/2024 11:00 AM EDT Laboratory Laboratory [facility] [address] [place] [address] Ritu, Lab Scenery [address] [place] [address] 06/15/2024 12:00 PM EDT Hem/Onc Treatment Hematology/Oncology Treatment, [place] [address] [facility] [place] [address] Ritu, Chair 6 Hem Onc [address] [place] [address] 06/22/2024 11:00 AM EDT Laboratory Laboratory [facility] [address] [place] [address] Ritu, Lab Scenery [address] [place] [address] 06/22/2024 12:00 PM EDT Hem/Onc Treatment Hematology/Oncology Treatment, [place] [address] [facility] [place] [address] Ritu, Chair 1 Hem Onc [address] [place] [address] 06/29/2024 11:00 AM EDT Laboratory Laboratory [facility] Ritu [place] [address] [place], [place] [address] Ritu, Lab Scenery [address] [place], [place] [address] 06/29/2024 12:00 PM EDT [facility] [address] [facility], [place] [address] Ritu, Chair 10 Hem Onc [address] [place], [place] [address] 07/06/2024 11:10 AM EDT Laboratory Laboratory [facility] Ritu [place] [address] [place], [place] [address] Ritu, Lab Scenery [address] [place], [place] [address] 07/06/2024 12:30 PM EDT [facility] [address] [facility], [place] [address] Ritu, Chair 4 Hem Onc [address] [place], [place] [address] 07/13/2024 11:00 AM EDT Laboratory Laboratory [facility] Ritu [place] [address] [place], [place] [address] Ritu, Lab Scenery [address] [place], [place] [address] 07/13/2024 11:30 AM EDT Office Visit Hematology/Oncology [facility] Ritu [place] [address] [place], [place] [address] Mariana Florez [facility] [place] [address] 07/13/2024 12:00 PM EDT Hem/Onc Treatment Hematology/Oncology Treatment, [place] [address] Health Maintenance Due Date Last [...] this encounter Medical Devices Implanted Type Area Baton Twirler Device Identifier Shelf Expiration Date Model / Serial / Lot Screw Elbow Humeral Total - [id number] Implanted:Qty: 1 on 12/23/2018 by Gautam Jasso MD [place] [facility] [place]: Upper Arm [employer] 09/13/202700-090 / / [id number] Deisi Nexel Total Elbow Implanted:Qty: 1 on 12/23/2018 by Gautam Jasso MD [place] [facility] Right: Upper Arm 04/13/2023-5 / / [id number] Cement Antibiotic Bone - [id number] Implanted:Qty: 1 on 12/23/2018 by Gautam Jasso MD [place] [facility] Right: Upper Arm RENY : ORTHOPAEDICS 05/13/2020 6197-9-010 / / [id number] Cement Antibiotic Bone - [id number] Implanted:Qty: 1 on 12/23/2018 by Gautam Jasso MD [place] [facility] Right: Upper Arm RENY : ORTHOPAEDICS 05/13/2020 6197-9-010 / / [id number] Stem Compr Srs Mod 5u498re - [id number] Implanted:Qty: 1 on 12/23/2018 by Gatuam Jasso MD at [place] [facility] Right: Upper Arm BIOMET : TRAUMA 01/28/2027 [id number] / / [id number] Deisi Nexel Total Elbow Ulnar Component Implanted:Qty: 1 on 12/23/2018 by Gautam Jasso MD [place] [facility] Right: Upper Arm 07/14/2025 00-8400-025 -07 / / [id number] Comprehensive Srs/Nexel Distal Body Implanted:Qty: 1 on 12/23/2018 by Gautam Jasso MD at [place] [facility] Right: Upper Arm 03/03/2028 [id number] / / [id number] Valve Ricky 3 Ultra 26mm - [id number] Implanted:Qty: 1 on 05/27/2022 by Jesús Weber MD at [facility] [employer] [id number] 03/17/2023 [id number] / / Port Implant W/8f Poly Cath - [id number] Implanted:Qty: 1 on 12/29/2022 by Sudhir Lovett DO at OR [facility] Right: Chest CR BARD : PERIPHERAL VASCULAR [id number] 02/12/2024 [id number] / / [id number] documented as of this encounter Procedures Procedure [...] Documents on File Type Date Recorded Patient Hospice Patient Care Secretary Expl anation Power of Dietary Cook 12/12/2018 8:46 AM Yungt felice Power of Dietary Cook Power of Dietary Cook 12/12/2018 8:45 AM Zuleyma ferguson Power of Dietary Cook * Full Code (Latest Code Status on [...] the patient have Health Care Power of Dietary Cook? Yes, not currently available * Full Code Date Activated Date Inactivated Comments 11/21/2018 8:53 AM 11/21/2018 2:27 PM This order ref lects the patients wishes and were consensually agreed upon. Care Teams Architecture Faculty Member Relationship Specialty Start Date End Date Sachi Soni MD [address] [place] [address] PCP - General Family Medicine 05/08/24 documented as of this encounter
--- OUTSIDE RECORDS SUMMARY | 2024-07-01 14:41 | External Medical Summary | Summary of Care ---
Author Name Unknown Organization [facility] Address [address] [facility] [place] [address] Phone [phone] Care Team Providers Care Saas Architect Name Role Phone Sachi Soni MD Primary Care Provider [phone] Encounter Details Date Type Department Care Team (Late st Contact Info) Description 05/12/2024 Orders Only Unspecified Department Sachi Soni MD [address] [place], [place] [phone] Allergies Active Allergy Reactions Criticality Noted Date [...] day. 30 Tab 12/25/2018 Active nystatin (NYSTOP) 423317 UNIT/GM powder Apply topically to affected area [...] 05/23/2024 1:30 PM EDT Office Visit Orthopaedics, [place] [address] [place] [address] Gautam Jasso MD [address] [place] [address] 05/25/2024 11:00 AM EDT Laboratory Laboratory [facility] [place] [address] [place] [address] Ritu Lab [address] [place] [address] 05/25/2024 12:00 PM EDT Hem/Onc Treatment Hematology/Oncology Treatment, [address] [address] Ritu, Chair 3 Hem Onc [facility] [address] [place] [address] 06/01/2024 11:00 AM EDT Laboratory Laboratory [address] [place] [address] [place] [address] Ritu, Lab Ward [address] [place] [address] 06/01/2024 12:00 PM EDT Hem/Onc Treatment Hematology/Oncology Treatment, [place] 200 [facility] Lydia [place] [address] Park, Chair 7 Hem Onc Sc[address] [place] [address] 06/08/2024 10:00 AM EDT Laboratory Laboratory [facility] [address] [place] [address] Ritu, Lab Scenery [address] [place] [address] 06/08/2024 11:00 AM EDT Hem/Onc Treatment Hematology/Oncology Treatment, [place] 200 [facility] [place] [address] Ritu, Chair 7 Hem Onc Sc[address] [place] [address] 06/15/2024 11:00 AM EDT Laboratory Laboratory [facility] [address] [place] [address] Ritu, Lab Scenery [address] [place] [address] 06/15/2024 12:00 PM EDT Hem/Onc Treatment Hematology/Oncology Treatment, [place] [address] [facility] [place] [address] Ritu, Chair 6 Hem Onc [address] [place] [address] 06/22/2024 11:00 AM EDT Laboratory Laboratory [facility] [address] [place] [address] Ritu, Lab Scenery [address] [place] [address] 06/22/2024 12:00 PM EDT Hem/Onc Treatment Hematology/Oncology Treatment, [place] [address] [facility] [place] [address] Ritu, Chair 1 Hem Onc [address] [place] [address] 06/29/2024 11:00 AM EDT Laboratory Laboratory [facility] Ritu [place] [address] [place], [place] [address] Ritu, Lab Scenery [address] [place], [place] [address] 06/29/2024 12:00 PM EDT [facility] 200 [facility], [place] [address] Ritu, Chair 10 Hem Onc [address] [place], [place] [address] 07/06/2024 11:10 AM EDT Laboratory Laboratory [facility] Ritu [place] [address] [place], [place] [address] Ritu, Lab Scenery [address] [place], [place] [address] 07/06/2024 12:30 PM EDT Hem[facility] 200 [facility], [place] [address] Ritu, Chair 4 Hem Onc [address] [place], [place] [address] 07/13/2024 11:00 AM EDT Laboratory Laboratory [facility] Ritu [place] [address] [place], [place] [address] Ritu, Lab [address]en[address] [place], [place] [address] 07/13/2024 11:30 AM EDT Office Visit Hematology/Oncology [facility] Ritu [place] [address] [place], [place] [address] [place] Florez [facility] [address] [facility] [place] [address] 07/13/2024 12:00 PM EDT Hem/Onc Treatment Hematology/Oncology Treatment, [place] [address] Health Maintenance Due Date Last [...] encounter Medical Devices Implanted Type Area Manager Of Pharmacy Device Identifier Shelf Expiration Date Model / Serial / Lot Screw Elbow Humeral Total - [id number] Implanted:Qty: 1 on 12/23/2018 by Gautam Jasso [place] [facility] [place]: Upper Arm [employer] 09/13/202700-090 / / [id number] Deisi Nexel Total Elbow Implanted:Qty: 1 on 12/23/2018 by Gautam Jasso MD [place] [facility] Right: Upper Arm 04/13/2023-5 / / [id number] Cement Antibiotic Bone - [id number] Implanted:Qty: 1 on 12/23/2018 by Gautam Jasso MD [place] [facility] Right: Upper Arm RENY : ORTHOPAEDICS 05/13/2020 6197-9-010 / / [id number] Cement Antibiotic Bone - [id number] Implanted:Qty: 1 on 12/23/2018 by Gautam Jasso MD [place] [facility] Right: Upper Arm RENY : ORTHOPAEDICS 05/13/2020 6197-9-010 / / [id number] Stem Compr Srs Mod 0i028tr - [id number] Implanted:Qty: 1 on 12/23/2018 by Gautam Jasso MD [place] [facility] Right: Upper Arm BIOMET : TRAUMA 01/28/2027 [id number] / / [id number] Deisi Nexel Total Elbow Ulnar Component Implanted:Qty: 1 on 12/23/2018 by Gautam Jasso MD [place] [facility] Right: Upper Arm 07/14/2025 00-8400-025 -07 / / [id number] Comprehensive Srs/Nexel Distal Body Implanted:Qty: 1 on 12/23/2018 by Gautam Jasso MD [place] [facility] Right: Upper Arm 03/03/2028 [id number] / / [id number] Valve Ricky 3 Ultra 26mm - [id number] Implanted:Qty: 1 on 05/27/2022 by Jesús Weber MD at [facility] [employer] [id number] 03/17/2023 [id number] / / Port Implant W/8f Poly Cath - [id number] Implanted:Qty: 1 on 12/29/2022 by Sudhir Lovett DO at OR [facility] Right: Chest CR BARD : PERIPHERAL VASCULAR [id number] 02/12/2024 [id number] / / [id number] documented as of this encounter Procedures Procedure [...] Documents on File Type Date Recorded Patient Heading Pinner Expl anation Power of Mental Health Orderly 12/12/2018 8:46 AM Yungt felice Power of Mental Health Orderly Power of [...] and were consensually agreed upon. Care Teams Saas Architect Relationship Specialty Start Date End Date Sachi Soni MD [address] [place] [address] PCP - General Family Medicine 05/08/24 documented as of this encounter
--- OUTSIDE RECORDS SUMMARY | 2024-07-01 14:41 | External Medical Summary | Summary of Care ---
Author Name Unknown Organization [facility] Address [address] [facility] [place] [address] Phone [phone] Care Team Providers Care Track Subway Repair Supervisor Name Role Phone Sachi Soni MD Primary Care Provider Reason for Visit * Reason Comments Chemotherapy Cycle 17/Day 15Cytox an IV Therapy IVIG * Episode Based Medications (Routine) - Authorized Specialty Diagnoses / Procedures Referred By Contac t Referred To Contact Diagnoses Multiple myeloma not having achieved remission (HCC) Procedures MT DARATUMUMAB, HYALURONIDASE MT CYCLOPHOSPHAMIDE 100 MG INJ MT INJ, CYCLOPHOSPHAMIDE, NOS Jorge Allen MD [address] [place], [place] [address] Anc Hem/Onc [facility] DEPT CLOSED - 09/27/[address] [place] [address] Referral ID Status Reason Start Date Expiration Date V isits Requested Visits Authorized [id number] Authorized 07/23/2022 11/13/2099 999 99 Encounter Details Date Type Department Care Team (Latest Contact Info) Description 05/11/2024 11:00 AM EDT Hem/Onc Treatment Hematology/Oncolog y Treatment, [place] [address] [place] [address] Ritu, Chair 6 Hem Onc Scenery [address] [place] [address] Multiple myeloma not having achieved remission (HCC)*; Hypogammaglobulinemia (HCC); Encounter for antineoplastic chemotherapy Allergies Active Allergy Reactions Criticality Noted Date Comments Adhesive Tape 05/28/2003 documented as of this encounter (statuses as of 05/18/2024) Medications Medication Sig Dispensed Refills Start Date [...] day. 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 Aortic valve stenosis 2021 documented as of this encounter (statuses as of 05/18/2024) Social History Tobacco Use Types Packs/Day Years [...] Sign Reading Time Taken Comments Blood Pressure 116/71 05/11/2024 11:27 AM EDT Pulse 65 05/11/2024 11:27 AM EDT Temperature 36 C (96.8 F) 05/11/2024 11: 27 AM EDT Respiratory Rate 18 05/11/2024 11:2 7 AM EDT Oxygen Saturation 98% 05/11/2024 11: 27 AM EDT Inhaled Oxygen Concentration - - Weight 107.8 kg (237 lb 9.6 oz) 024 11:27 AM EDT Height - - Body Mass Index 47.9 12/28/2023 10:14 AM EST documented in this [...] as of this encounter Nursing Notes * Adrienne Glez RN - 05/11/2024 3:29 PM EDT Goals: Patient will remain free from injury. Possible barriers to meeting goals: age, wheelchair for distances, ambulating with IV pole Stability of the patient: Moderately stable - low risk of patient condition declining or worsening Summary regarding today's goals: Met: Pt remained free of injury Pt left in stable condition. Tolerated treatment without any issues or problems . Left in wheelchair with county transportation * Adrienne Glez RN - 05/11/2024 11:28 AM EDT Chair 7 Port accessed. Pt comfortable. Denies further needs at this time. Pt saw Dr Allen for increased R elbow pain and dysfunction. Xray ordered. Xray closed today. Pt will obtain 7/5 during next appt. Chemotherapy/Immunotherapy agents: CYTOXIN and IVIG Consent for chemotherapy drug treatment complete, dated, and signed? yes, date - 11/12/22 Treatment lab parameters met? Yes Has treatment weight changed > than 10%? No Treatment preauthorized? Yes VITALS Filed Vitals: 05/11/24 1127 BP: 116/71 Pulse: 65 Resp: 18 Temp: 36 C (96.8 F) SpO2: 98% Weight: 107.8 kg (237 lb 9.6 oz) Urine protein: N/A Patient education completed for treatment? Yes Blood transfusion consent signed and complete? No Return appointment scheduled? Yes Patient had provider [...] side effects during treatment. PRE-TREATMENT ASSESSMENT: NEURO: numbness or tingling: Increased in R arm and weakness of legs, arms, or face: R arm/elbow CV/RESP: denies symptoms GI/: denies symptoms OTHER: denies any additional symptoms PAIN: 5-6 pain location : R arm/elbow Safety and Risk for Injury Patient will remain free from injury. Ensure appropriate safety devices are available. Provide and maintain safe environment. documented in this encounter Plan of Treatment Upcoming Encounters Date Type Department Care Team (Late st Contact Info) Description 05/23/2024 1:30 PM EDT Office Visit Orthopaedics, [place] [address] [place] [address] Gautam Jasso MD [address] [place] [address] 05/25/2024 11:00 AM EDT Laboratory Laboratory [facility] [address] [facility] [place] [phone] Ritu, Lab Scene 200 [facility] [place] [address] 05/25/2024 12:00 PM EDT Hem/Onc Treatment Hematology/Oncology [address], [address] [phone] Ritu, Chair 3 Hem Onc [facility] 200 [facility] [place] [address] 06/01/2024 11:00 AM EDT Laboratory Laboratory [facility] [place] [address] [place] [phone] Ritu, Lab [facility] [address] [facility] [place] [address] 06/01/2024 12:00 PM EDT Hem/Onc Treatment Hematology/Oncology [address], [address] [phone] Park, Chair 7 Hem Onc Scenery [address] [place] [address] 06/08/2024 10:00 AM EDT Laboratory Laboratory [facility] [address] [place] [address] Ritu, Lab Scenery [address] [place] [address] 06/08/2024 11:00 AM EDT Hem/Onc Treatment Hematology/Oncology Treatment, [place] 200 [facility] [place] [address] Ritu, Chair 7 Hem Onc Scenery [address] [place] [address] 06/15/2024 11:00 AM EDT Laboratory Laboratory [facility] [address] [place] [address] Ritu, Lab Scenery [address] [place] [address] 06/15/2024 12:00 PM EDT Hem/Onc Treatment Hematology/Oncology Treatment, [place] 200 [facility] [place] [address] Ritu, Chair 6 Hem Onc Scenery [address] [place] [address] 06/22/2024 11:00 AM EDT Laboratory Laboratory [facility] [address] [place] [address] Ritu, Lab Scenery [address] [place] [address] 06/22/2024 12:00 PM EDT Hem/Onc Treatment Hematology/Oncology Treatment, [place] 200 [facility] [place] [address] Ritu, Chair 1 Hem Onc Scenery [address] [place] [address] 06/29/2024 11:00 AM EDT Laboratory Laboratory [facility] Ritu [place] [address] [place], [place] [address] Ritu, Lab Scenery [address] [place], [place] [address] 06/29/2024 12:00 PM EDT [facility] [address] [facility], [place] [address] Ritu, Chair 10 Hem Onc Scenery [address] [place], [place] [address] 07/06/2024 11:10 AM EDT Laboratory Laboratory [facility] Ritu [place] [address] [place], [place] [address] Ritu, Lab Scenery [address] [place], [place] [address] 07/06/2024 12:30 PM EDT [facility] 200 [facility], [place] [address] Ritu, Chair 4 Hem Onc Scenery [address] [place], [place] [address] 07/13/2024 11:00 AM EDT Laboratory Laboratory [facility] Ritu [place] [address] [place], [place] [address] Ritu, Lab Scenery [address] [place], [place] [address] 07/13/2024 11:30 AM EDT Office Visit Hematology/Oncology [facility] Ritu [place] [address] [place], [place] [address] [place] Florez CRNP [address] [facility] [place] [address] 07/13/2024 12:00 PM EDT Hem/Onc Treatment Hematology/Oncology Treatment, [place] [address] Health Maintenance Due Date Last [...] this encounter Medical Devices Implanted Type Area Optical Engineer Device Identifier Shelf Expiration Date Model / Serial / Lot Screw Elbow Humeral Total - [id number] Implanted:Qty: 1 on 12/23/2018 by Gautam Jasso MD at OR [facility] Right: Upper Arm [employer] 09/13/202700-090 / / [id number] Deisi Nexel Total Elbow Implanted:Qty: 1 on 12/23/2018 by Gautam Jasso MD at OR [facility] Right: Upper Arm 04/13/2023-5 / / [id number] Cement Antibiotic Bone - [id number] Implanted:Qty: 1 on 12/23/2018 by Gautam Jasso MD at OR [facility] Right: Upper Arm RENY : ORTHOPAEDICS 05/13/2020 6197-9-010 / / [id number] Cement Antibiotic Bone - [id number] Implanted:Qty: 1 on 12/23/2018 by Gautam Jasso MD at OR [facility] Right: Upper Arm RENY : ORTHOPAEDICS 05/13/2020 6197-9-010 / / [id number] Stem Compr Srs Mod [id number] - [id number] Implanted:Qty: 1 on 12/23/2018 by Gautam Jasso MD at OR [facility] Right: Upper Arm BIOMET : TRAUMA 01/28/2027 [id number] / / [id number] Deisi Nexel Total Elbow Ulnar Component Implanted:Qty: 1 on 12/23/2018 by Gautam Jasso MD at OR [facility] Right: Upper Arm 07/14/2025 00-8400-025 -07 / / [id number] Comprehensive Srs/Nexel Distal Body Implanted:Qty: 1 on 12/23/2018 by Gautam Jasso MD at OR [facility] Right: Upper Arm 03/03/2028 [id number] / / [id number] Valve Ricky 3 Ultra 26mm - [id number] Implanted:Qty: 1 on 05/27/2022 by Jesús Weber MD at CARDIAC LABS [facility] [employer] [id number] 03/17/2023 [id number] / / Port Implant W/8f Poly Cath - [id number] Implanted:Qty: 1 on 12/29/2022 by Sudhir Lovett DO at OR [facility] Right: Chest CR BARD : PERIPHERAL VASCULAR [id number] 02/12/2024 [id number] / / [id number] documented as of this encounter Visit Diagnoses [...] Plan BSA from Recorded weight), IV Piggyback, Cyclophosphamide doses over 1g should be in 500 mL. May extend infusion to 1 hour if not tolerated., ONCE, 1 dose, On Tue05/11/24 at 1230 Start Infusion 05/11/2024 1:57 PM EDT 620 mg 510 mL/hr Immune Globulin Human- IVIG 10% (Privigen) IV 20 g 20 g, IV Piggyback, ONCE, 1 dose, On Tue05/11/24 at 1230, Total dose = 30 gm Dispensed as [...] Infusion duration = 1.7 hours Start Infusion 05/11/2024 1:08 PM EDT 20 g 335 mL/hr Immune Globulin Human-IVIG 10% (Privigen) IV 10 g 10 g, IV Piggyback, ONCE, 1 dose, On Tue05/11/24 at 1230, Total dose = 30 gm Dispensed as [...] Infusion duration = 1.7 hours Rate Change 05/11/2024 12:53 PM EDT 167 mL/hr Rate Change 05/11/2024 12:36 PM EDT 84 mL/hr Rate Change 05/11/2024 12:19 PM EDT 42 mL/hr NSS infusion FOR HYDRATION Intravenous, at 50 mL/hr Administer over 10 Hours, ONCE, 1 dose, On Tue05/11/24 at 1230 Start Infusion 05/11/2024 11:58 AM EDT 500 mL 50 mL/hr ondansetron (Zofran) tab 8 mg 8 mg, Oral, ONCE, On Tue05/11/24 at 1230, For 1 dose Given 05/11/2024 12:05 PM EDT 8 mg documented in this encounter Advance Directives Documents on File Type Date Recorded Patient Canvas Cutter Machine Expl anation Power of Professional Tutor 12/12/2018 8:46 AM Healpamela hcare Power of Professional Tutor Power of Professional Tutor 12/12/2018 8:45 AM Zuleyma ferguson Power of Professional Tutor * Full Code (Latest Code Status on [...] the patient have Health Care Power of Professional Tutor? Yes, not currently available * Full Code Date Activated Date Inactivated Comments 11/21/2018 8:53 AM 11/21/2018 2:27 PM This order ref lects the patients wishes and were consensually agreed upon. Care Teams Track Subway Repair Supervisor Relationship Specialty Start Date End Date Sachi Soni MD [address] [place] [address] PCP - General Family Medicine 05/08/24 documented as of this encounter
--- OUTSIDE RECORDS SUMMARY | 2024-07-01 14:41 | External Medical Summary | Summary of Care ---
Author Name Unknown Organization [facility] Address [address] [facility] [place] [address] Phone [phone] Care Team Providers Care Export Freight Specialist Name Role Phone Kulwinder Byers MD Primary Care Provider [phone] Reason for Visit * Reason Comments Chemotherapy Cytoxan. * Episode Based Medications (Routine) - Authorized Specialty Diagnoses / Procedures Referred By Contac t Referred To Contact Diagnoses Multiple myeloma not having achieved remission (HCC) Procedures [place] DARATUMUMAB, HYALURONIDASE [place] CYCLOPHOSPHAMIDE 100 MG INJ [place] INJ, CYCLOPHOSPHAMIDE, NOS Jorge Allen MD [address] [place] [address] Anc Hem/Onc [place] DEPT CLOSED - 09/27/23 [address] [place] [address] Referral ID Status Reason Start Date Expiration Date V isits Requested Visits Authorized [id number] Authorized 07/23/2022 11/13/2099 999 99 Encounter Details Date Type Department Care Team (Latest Contact Info) Description 04/27/2024 12:00 PM EDT Hem/Onc Treatment Hematology/Oncolog y Treatment, [place] [address] [place] [address] Ritu, Chair 10 Hem Onc Scenery 200 [facility] [place] [address] Multiple myeloma not having [...] day. 30 Tab 12/25/2018 Active nystatin (NYSTOP) 656764 UNIT/GM powder Apply topically to affected area [...] as needed for Pain, Breakthrough. 60 Tablet 04/25/2024 4 Discontinue d(Refill) documented as of this [...] Sign Reading Time Taken Comments Blood Pressure 115/77 04/27/2024 11:36 AM EDT Pulse 100 04/27/2024 11:36 AM EDT Temperature 37.1 C (98.7 F) 04/27/2024 11:36 AM E DT Respiratory Rate 16 04/27/2024 11:36 AM EDT Oxygen Saturation 95% 04/27/2024 11:36 AM EDT Inhaled Oxygen Concentration - - [...] Nursing Notes * Brenda Ashton RN - 04/27/2024 12:52 PM EDT Goals: Patient will remain free from injury. Possible barriers to meeting goals: Fall risk d/t ambulation with IV pole. Stability of the patient: Moderately unstable - medium risk of patient condition declining or worsening Summary regarding today's goals: Met: Patient remained free of injury. Patient tolerated infusion well. Discharged in stable condition. * Brenda Ashton RN - 04/27/2024 11:53 AM EDT Chair 6. Patient arrived for cytoxan with no acute complaints. Labs reviewed with Dr. Allen, PLT:91, per ok for treatment today. VAD accessed. Chemotherapy/Immunotherapy agents: CYTOXAN Consent for chemotherapy drug treatment complete, dated, and signed? yes, date - 11/01/22 Treatment lab parameters met? Yes- see above note. Has treatment weight changed > than 10%? No Treatment preauthorized? Yes VITALS Filed Vitals: 04/27/24 1136 BP: 115/77 Pulse: 100 Resp: 16 Temp: 37.1 C (98.7 F) TempSrc: Tympanic SpO2: 95% Urine protein: N/A Patient education completed for [...] symptoms OTHER: denies any additional symptoms PAIN: 3-4 pain location : left hip-chronic. Safety and Risk for Injury Patient will remain free from injury. Ensure appropriate safety devices are available. Provide and maintain safe environment. documented in this encounter Plan of Treatment Upcoming Encounters Date Type Department Care Team (Late st Contact Info) Description 05/23/2024 1:30 PM EDT [facility] [address] [place] [address] Gautam Jasso MD [address] [place] [address] 05/25/2024 11:00 AM EDT Laboratory Laboratory [facility] [address] [place] [address] Ritu, Lab Scenery [address] [place] [address] 05/25/2024 12:00 PM EDT [facility] 200 [facility], [place] [address] Ritu, Chair 3 Hem Onc Scenery [address] [place] [address] 06/01/2024 11:00 AM EDT Laboratory Laboratory [facility] [address] [place] [address] Ritu, Lab Scenery [address] [place] [address] 06/01/2024 12:00 PM EDT [facility] 200 [facility] [place] [address] Ritu, Chair 7 Hem Onc Scenery [address] [place] [address] 06/08/2024 10:00 AM EDT Laboratory Laboratory [facility] Ritu [place] [address] [place] [address] Ritu, Lab Scenery [address] [place] [address] 06/08/2024 11:00 AM EDT Hem/Onc Treatment Hematology/Oncology Treatment, [place] 200 [facility] [address] Ritu, Chair 7 Hem Onc Scenery [address] [place] [address] 06/15/2024 11:00 AM EDT Laboratory Laboratory [facility] [address] [place] [address] Park, Lab Scenery [address] [place] [address] 06/15/2024 12:00 PM EDT [facility] 200 [facility] [address] [place], Chair 6 Hem Onc Scenery [address] [place] [address] 06/22/2024 11:00 AM EDT Laboratory Laboratory [facility] [place] [address] [place] [address] Ritu, Lab Scenery [address] [place] [address] 06/22/2024 12:00 PM EDT [facility] 200 [facility] [address] Ritu, Chair 1 Hem Onc Scenery [address] [place] [address] 06/29/2024 11:00 AM EDT Laboratory Laboratory [facility] [place] [address] [place] [address] Ritu, Lab Scenery [address] [place] [address] 06/29/2024 12:00 PM EDT [facility] 200 [facility] [place] [address] Park, Chair 10 Hem Onc Scenery [address] [place] [address] 07/06/2024 11:10 AM EDT Laboratory Laboratory [facility] Ritu [place] [address] [place] [address] Ritu, Lab Scenery [address] [place] [address] 07/06/2024 12:30 PM EDT Hem[facility] 200 [facility], [place] [address] Ritu, Chair 4 Hem Onc [address] [place] [address] 07/13/2024 11:00 AM EDT Laboratory Laboratory [address] [place] [address] Ritu, Lab [address] [place], [place] [address] 07/13/2024 11:30 AM EDT Office Visit Hematology/Oncology [address] [place], [place] [phone] [place] Florez CRNP [address] [facility] [place] [address] 07/13/2024 12:00 PM EDT Hem/Onc Treatment Hematology/Oncology Treatment[address], [place] [address] Health Maintenance Due Date Last Done [...] this encounter Medical Devices Implanted Type Area Terminal Worker Device Identifier Shelf Expiration Date Model / Serial / Lot Screw Elbow Humeral Total - [id number] Implanted:Qty: 1 on 12/23/2018 by Gautam Jasso MD at OR [facility] Right: Upper Arm [employer] 09/13/2027 / / [id number] Deisi Nexel Total Elbow Implanted:Qty: 1 on 12/23/2018 by Gautam Jasso MD at OR [facility] Right: Upper Arm 04/13/2023 / / [id number] Cement Antibiotic Bone - [id number] Implanted:Qty: 1 on 12/23/2018 by Gautam Jasso MD at OR [facility] Right: Upper Arm RENY : ORTHOPAEDICS 05/13/2020 6197-9-010 / / [id number] Cement Antibiotic Bone - [id number] Implanted:Qty: 1 on 12/23/2018 by Gautam Jasso MD at OR [facility] Right: Upper Arm RENY : ORTHOPAEDICS 05/13/2020 6197-9-010 / / [id number] Stem Compr Srs Mod [id number] - [id number] Implanted:Qty: 1 on 12/23/2018 by Gautam Jasso MD at OR [facility] Right: Upper Arm BIOMET : TRAUMA 01/28/2027 [id number] / / [id number] Deisi Nexel Total Elbow Ulnar Component Implanted:Qty: 1 on 12/23/2018 by Gautam Jasso MD at OR [facility] Right: Upper Arm 07/14/2025-025 -07 / / [id number] Comprehensive Srs/Nexel Distal Body Implanted:Qty: 1 on 12/23/2018 by Gautam Jasso MD at OR [facility] Right: Upper Arm 03/03/2028 [id number] / / [id number] Valve Ricky 3 Ultra 26mm - [id number] Implanted:Qty: 1 on 05/27/2022 by Jesús Weber MD at CARDIAC LABS [facility] [employer] [id number] 03/17/2023 [id number] / / Port Implant W/8f Poly Cath - [id number] Implanted:Qty: 1 on 12/29/2022 by Sudhir Lovett DO at OR [facility] Right: Chest CR BARD : PERIPHERAL VASCULAR [id number] 02/12/2024 [id number] / / [id number] documented as of this encounter Visit Diagnoses [...] if not tolerated., ONCE, 1 dose, On Tue04/27/24 at 1215 Start Infusion 04/27/2024 12:10 PM EDT 620 mg 516.2 mL/hr hEParin 100 UNIT/ML Lock Flush inj 500 Units 500 Units (5 mL), IV Lock, PRN Other, IV Flush, Starting on Tue04/27/24 at 1133, Until Tue04/27/24 at 1654, For 24 hours, Do not flush if lock, PICC, or central line not in place; IV infusing or unable to flush. Given 04/27/2024 12:44 PM EDT 500 Units NSS infusion FOR HYDRATION Intravenous, at 50 mL/hr Administer over 10 Hours, ONCE, 1 dose, On Tue04/27/24 at 1215 Start Infusion 04/27/2024 11:42 AM EDT 500 mL 50 mL/hr ondansetron (Zofran) tab 8 mg 8 mg, Oral, ONCE, On Tue04/27/24 at 1215, For 1 dose Given 04/27/2024 11:42 AM EDT 8 mg sodium chloride 0.9 % flush central line 10 mL 10 mL, IV Push, PRN Other, IV Flush, Starting on Tue04/27/24 at 1133, Until Tue04/27/24 at 1654, For 24 hours, Do not flush if lock, PICC, or central line not in place; IV infusing or unable to flush. Given 04/27/2024 12:44 PM EDT 10 mL documented in this encounter Advance Directives Documents on File Type Date Recorded Patient Cold Working Supervisor Expl anation Power of Double Head Machine Operator 12/12/2018 8:46 AM Vipin viveros Power of Double Head Machine Operator Power of Double Head Machine Operator 12/12/2018 8:45 AM Zuleyma ferguson Power of Double Head Machine Operator * Full Code (Latest Code Status [...] the patient have Health Care Power of Double Head Machine Operator? Yes, not currently available * Full Code Date Activated Date Inactivated Comments 11/21/2018 8:53 AM 11/21/2018 2:27 PM This order ref lects the patients wishes and were consensually agreed upon. Care Teams Export Freight Specialist Relationship Specialty Start Date End Date Kulwinder Byers MD [address] [place] [address] PCP - General 06/28/03 05/07/24 documented as of this encounter
--- OUTSIDE RECORDS SUMMARY | 2024-07-01 14:41 | External Medical Summary | Summary of Care ---
Author Name Unknown Organization [facility] Address [address] [facility] [place] [address] Phone [phone] Care Team Providers Care Shuttle Route Vehicle Operator Name Role Phone Sachi Soni MD Primary Care Provider [phone] Encounter Details Date Type Department Care Team (Late st Contact Info) Description 05/12/2024 Orders Only Unspecified Department Sachi Soni MD [address], [place] [phone] Allergies Active Allergy Reactions Criticality Noted Date [...] day. 30 Tab 12/25/2018 Active nystatin (NYSTOP) 247596 UNIT/GM powder Apply topically to affected area [...] 05/23/2024 1:30 PM EDT Office Visit Orthopaedics, [place] [address] [place] [address] Gautam Jasso MD [address] [place] [address] 05/25/2024 11:00 AM EDT Laboratory Laboratory [facility] [place] [address] [place] [address] Ritu Lab [address] [place] [address] 05/25/2024 12:00 PM EDT Hem/Onc Treatment Hematology/Oncology [address], [address] [address] Ritu, Chair 3 Hem Onc [facility] [address] [place] [address] 06/01/2024 11:00 AM EDT Laboratory Laboratory [address] [place] [address] [place] [address] Ritu, Lab Ward [address] [place] [address] 06/01/2024 12:00 PM EDT Hem/Onc Treatment Hematology/Oncology Treatment, [place] [address] [facility] [place] [address] Park, Chair 7 Hem Onc Scenery [address] [place] [address] 06/08/2024 10:00 AM EDT Laboratory [facility] [address] [place] [address] Ritu, Lab Scenery [address] [place] [address] 06/08/2024 11:00 AM EDT Hem/Onc Treatment Hematology/Oncology Treatment, [place] 200 [facility] [place] [address] Ritu, Chair 7 Hem Onc Scenery [address] [place] [address] 06/15/2024 11:00 AM EDT Laboratory Laboratory [facility] [address] [place] [address] Ritu, Lab Scenery [address] [place] [address] 06/15/2024 12:00 PM EDT Hem/Onc Treatment Hematology/Oncology Treatment, [place] 200 [facility] [place] [address] Ritu, Chair 6 Hem Onc Scenery [address] [place] [address] 06/22/2024 11:00 AM EDT Laboratory Laboratory [facility] [address] [place] [address] Ritu, Lab Scenery [address] [place] [address] 06/22/2024 12:00 PM EDT Hem/Onc Treatment Hematology/Oncology Treatment, [place] 200 [facility] [place] [address] Ritu, Chair 1 Hem Onc Scenery [address] [place] [address] 06/29/2024 11:00 AM EDT Laboratory [facility] Ritu [place] [address] [place], [place] [address] Ritu, Lab Scenery [address] [place], [place] [address] 06/29/2024 12:00 PM EDT [facility] 200 [facility], [place] [address] Ritu, Chair 10 Hem Onc Scenery [address] [place], [place] [address] 07/06/2024 11:10 AM EDT Laboratory Laboratory [facility] Ritu [place] [address] [place], [place] [address] Ritu, Lab Scenery [address] [place], [place] [address] 07/06/2024 12:30 PM EDT [facility] 200 [facility], [place] [address] Ritu, Chair 4 Hem Onc Scenery [address] [place], [place] [address] 07/13/2024 11:00 AM EDT Laboratory Laboratory [facility] Ritu [place] [address] [place], [place] [address] Ritu, Lab Scenery [address] [place], [place] [address] 07/13/2024 11:30 AM EDT Office Visit Hematology/Oncology [facility] Ritu [place] [address] [place], [place] [address] Mariana Florez CRNP [address] [facility] [place] [address] 07/13/2024 12:00 PM EDT Hem/Onc Treatment Hematology/Oncology Treatment, [place] [address] Health Maintenance Due Date Last [...] this encounter Medical Devices Implanted Type Area Information Assurance Manager Device Identifier Shelf Expiration Date Model / Serial / Lot Screw Elbow Humeral Total - [id number] Implanted:Qty: 1 on 12/23/2018 by Gautam Jasso MD at [place] [facility] Right: Upper Arm [employer] 09/13/202700-090 / / [id number] Deisi Nexel Total Elbow Implanted:Qty: 1 on 12/23/2018 by Gautam Jasso MD at OR [facility] Right: Upper Arm 04/13/2023-5 / / [id number] Cement Antibiotic Bone - [id number] Implanted:Qty: 1 on 12/23/2018 by Gautam Jasso MD at OR [facility] Right: Upper Arm RENY : ORTHOPAEDICS 05/13/2020 6197-9-010 / / [id number] Cement Antibiotic Bone - [id number] Implanted:Qty: 1 on 12/23/2018 by Gautam Jasso MD at OR [facility] Right: Upper Arm RENY : ORTHOPAEDICS 05/13/2020 6197-9-010 / / [id number] Stem Compr Srs Mod 7j881bs - [id number] Implanted:Qty: 1 on 12/23/2018 by Gautam Jasso MD at OR [facility] Right: Upper Arm BIOMET : TRAUMA 01/28/2027 [id number] / / [id number] Deisi Nexel Total Elbow Ulnar Component Implanted:Qty: 1 on 12/23/2018 by Gautam Jasso MD at OR [facility] Right: Upper Arm 07/14/2025 00-8400-025 -07 / / [id number] Comprehensive Srs/Nexel Distal Body Implanted:Qty: 1 on 12/23/2018 by Gautam Jasso MD at OR [facility] Right: Upper Arm 03/03/2028 [id number] / / [id number] Valve Ricky 3 Ultra 26mm - [id number] Implanted:Qty: 1 on 05/27/2022 by Jesús Weber MD at [facility] [employer] [id number] 03/17/2023 [id number] / / Port Implant W/8f Poly Cath - [id number] Implanted:Qty: 1 on 12/29/2022 by Sudhir Lovett DO at OR [facility] Right: Chest CR BARD : PERIPHERAL VASCULAR [id number] 02/12/2024 [id number] / / [id number] documented as of this encounter Procedures Procedure [...] Documents on File Type Date Recorded Patient Farm Implement Mechanic Expl anation Power of Drill Setup Operator 12/12/2018 8:46 AM Yungt felice Power of Drill Setup Operator Power of Drill Setup Operator 12/12/2018 8:45 AM Zuleyma ferguson Power of Drill Setup Operator * Full Code (Latest Code Status [...] the patient have Health Care Power of Drill Setup Operator? Yes, not currently available * Full Code Date Activated Date Inactivated Comments 11/21/2018 8:53 AM 11/21/2018 2:27 PM This order ref lects the patients wishes and were consensually agreed upon. Care Teams Shuttle Route Vehicle Operator Relationship Specialty Start Date End Date Sachi Soni MD [address] [place] [address] PCP - General Family Medicine 05/08/24 documented as of this encounter
--- OUTSIDE RECORDS SUMMARY | 2024-07-01 14:41 | External Medical Summary | Summary of Care ---
Author Name Unknown Organization [facility] Address [address] [facility] [place] [address] Phone [phone] Care Team Providers Care Manager Of Tax Name Role Phone Kulwinder Byers MD Primary Care Provider [phone] Reason for Visit * Reason Comments Chemotherapy Cytoxan. * Episode Based Medications (Routine) - Authorized Specialty Diagnoses / Procedures Referred By Contac t Referred To Contact Diagnoses Multiple myeloma not having achieved remission (HCC) Procedures NJ DARATUMUMAB, HYALURONIDASE [place] CYCLOPHOSPHAMIDE 100 MG INJ [place] INJ, CYCLOPHOSPHAMIDE, NOS Jorge Allen MD [address] [place] [address] Anc Hem/Onc [address] DEPT CLOSED - 09/27/23 [address] [place] [address] Referral ID Status Reason Start Date Expiration Date V isits Requested Visits Authorized [id number] Authorized 07/23/2022 11/13/2099 999 99 Encounter Details Date Type Department Care Team (Latest Contact Info) Description 04/27/2024 12:00 PM EDT Hem/Onc Treatment Hematology/Oncolog y Treatment, [place] [address] [place] [address] Ritu, Chair 10 Hem Onc Scenery 200 [facility] [place] [address] Multiple myeloma not [...] day. 30 Tab 12/25/2018 Active nystatin (NYSTOP) 764329 UNIT/GM powder Apply topically to affected area [...] Description 05/23/2024 1:30 PM EDT [facility] [address] [place] [address] Gautam Jasso MD [address] [place] [address] 05/25/2024 11:00 AM EDT Laboratory Laboratory [facility] [address] [place] [address] Ritu, Lab Scenery [address] [place] [address] 05/25/2024 12:00 PM EDT [facility] 200 [facility], [place] [address] Ritu, Chair 3 Hem Onc Scenery [address] [place] [address] 06/01/2024 11:00 AM EDT Laboratory Laboratory [facility] [address] [place] [address] Ritu, Lab Scenery [address] [place] [address] 06/01/2024 12:00 PM EDT Hem[facility] 200 [facility] [place] [address] Ritu, Chair 7 Hem Onc Scenery [address] [place] [address] 06/08/2024 10:00 AM EDT Laboratory Laboratory [facility] Ritu [place] [address] [place] [address] Ritu, Lab Scenery [address] [place] [address] 06/08/2024 11:00 AM EDT Hem/Onc Treatment Hematology/Oncology Treatment, [place] 200 [facility] [place] [address] Ritu, Chair 7 Hem Onc Scenery [address] [place] [address] 06/15/2024 11:00 AM EDT Laboratory Laboratory [facility] [address] [place] [address] Park, Lab Scenery [address] [place] [address] 06/15/2024 12:00 PM EDT Hem[facility] 200 [facility] [place] [address] Park, Chair 6 Hem Onc Scenery [address] [place] [address] 06/22/2024 11:00 AM EDT Laboratory Laboratory [facility] [place] [address] [place] [address] Ritu, Lab Scenery [address] [place] [address] 06/22/2024 12:00 PM EDT Hem[facility] 200 [facility] [place] [address] Ritu, Chair 1 Hem Onc Scenery [address] [place] [address] 06/29/2024 11:00 AM EDT Laboratory Laboratory [facility] [place] [address] [place] [address] Ritu, Lab Scenery [address] [place] [address] 06/29/2024 12:00 PM EDT Hem[facility] 200 [facility] [place] [address] Park, Chair 10 Hem Onc Scenery [address] [place] [address] 07/06/2024 11:10 AM EDT Laboratory Laboratory [facility] Ritu [place] [address] [place] [address] Ritu, Lab Scenery [address] [place] [address] 07/06/2024 12:30 PM EDT Hem[facility] 200 [facility], [place] [address] Ritu, Chair 4 Hem Onc [address] [place] [address] 07/13/2024 11:00 AM EDT Laboratory Laboratory [address] [place] [address] Ritu, Lab [address] [place], [place] [address] 07/13/2024 11:30 AM EDT Office Visit Hematology/Oncology [address] [place], [place] [address] Mariana Florez CRNP [address] [facility] [place] [address] 07/13/2024 12:00 PM EDT Hem/Onc Treatment Hematology/Oncology Treatment[address], [place] [address] Health Maintenance Due Date [...] this encounter Medical Devices Implanted Type Area Wire Stripping Machine Operator Device Identifier Shelf Expiration Date Model / Serial / Lot Screw Elbow Humeral Total - [id number] Implanted:Qty: 1 on 12/23/2018 by Gautam Jasso MD at [place] [facility] Right: Upper Arm [employer] 09/13/2027 / / [id number] Deisi Nexel Total Elbow Implanted:Qty: 1 on 12/23/2018 by Gautam Jasso MD at [place] [facility] Right: Upper Arm 04/13/2023 / / [id number] Cement Antibiotic Bone - [id number] Implanted:Qty: 1 on 12/23/2018 by Gautam Jasso MD at [place] [facility] Right: Upper Arm RENY : ORTHOPAEDICS 05/13/2020 6197-9-010 / / [id number] Cement Antibiotic Bone - [id number] Implanted:Qty: 1 on 12/23/2018 by Gautam Jasso MD at [place] [facility] Right: Upper Arm RENY : ORTHOPAEDICS 05/13/2020 6197-9-010 / / [id number] Stem Compr Srs Mod 1g671kg - [id number] Implanted:Qty: 1 on 12/23/2018 by Gautam Jasso MD at [place] [facility] Right: Upper Arm BIOMET : TRAUMA 01/28/2027 [id number] / / [id number] Deisi Nexel Total Elbow Ulnar Component Implanted:Qty: 1 on 12/23/2018 by Gautam Jasso MD at [place] [facility] Right: Upper Arm 07/14/2025-025 -07 / / [id number] Comprehensive Srs/Nexel Distal Body Implanted:Qty: 1 on 12/23/2018 by Gautam Jasso MD at [place] [facility] Right: Upper Arm 03/03/2028 [id number] / / [id number] Valve Ricky 3 Ultra 26mm - [id number] Implanted:Qty: 1 on 05/27/2022 by Jesús Weber MD at [facility] [employer] [id number] 03/17/2023 [id number] / / Port Implant W/8f Poly Cath - [id number] Implanted:Qty: 1 on 12/29/2022 by Sudhir Lovett DO at OR [facility] Right: Chest CR BARD : PERIPHERAL VASCULAR [id number] 02/12/2024 [id number] / / [id number] documented as of this encounter Visit Diagnoses [...] on File Type Date Recorded Patient Oil Deliverer Expl anation Power of Brake Assembler 12/12/2018 8:46 AM Vipin viveros Power of Brake Assembler Power of Brake Assembler 12/12/2018 8:45 AM Zuleyma ferguson Power of Brake Assembler * Full Code (Latest Code Status on [...] the patient have Health Care Power of Brake Assembler? Yes, not currently available * Full Code Date Activated Date Inactivated Comments 11/21/2018 8:53 AM 11/21/2018 2:27 PM This order ref lects the patients wishes and were consensually agreed upon. Care Teams Manager Of Tax Relationship Specialty Start Date End Date Kulwinder Byers MD [address] [place] [address] PCP - General 06/28/03 05/07/24 documented as of this encounter
--- OUTSIDE RECORDS SUMMARY | 2024-07-01 14:41 | External Medical Summary | Summary of Care ---
Author Name Unknown Organization [facility] Address [address] [facility] [place] [address] Phone [phone] Care Team Providers Care Boat Laborer Name Role Phone Sachi Soni MD Primary Care Provider [phone] Encounter Details Date Type Department Care Team (Late st Contact Info) Description 05/12/2024 Orders Only Unspecified Department Sachi Soni MD [address], [place] [phone] Allergies Active Allergy Reactions Criticality Noted Date [...] day. 30 Tab 12/25/2018 Active nystatin (NYSTOP) 784128 UNIT/GM powder Apply topically to affected area [...] 05/23/2024 1:30 PM EDT Office Visit Orthopaedics, [place] [address] [place] [address] Gautam Jasso MD [address] [place] [address] 05/25/2024 11:00 AM EDT Laboratory Laboratory [facility] [place] [address] [place] [address] Ritu Lab [address] [place] [address] 05/25/2024 12:00 PM EDT Hem/Onc Treatment Hematology/Oncology Treatment, [address] [address] Ritu, Chair 3 Hem Onc [facility] [address] [place] [address] 06/01/2024 11:00 AM EDT Laboratory Laboratory [address] [place] [address] [place] [address] Ritu, Lab Ward [address] [place] [address] 06/01/2024 12:00 PM EDT Hem/Onc Treatment Hematology/Oncology Treatment, [place] 200 [facility] [place] [address] Park, Chair 7 Hem Onc Scenery [address] [place] [address] 06/08/2024 10:00 AM EDT Laboratory Laboratory [facility] [address] [place] [address] Ritu, Lab Scenery [address] [place] [address] 06/08/2024 11:00 AM EDT Hem/Onc Treatment Hematology/Oncology Treatment, [place] 200 [place] [address] Ritu, Chair 7 Hem Onc Scenery [address] [place] [address] 06/15/2024 11:00 AM EDT Laboratory Laboratory [facility] [address] [place] [address] Ritu, Lab Scenery [address] [place] [address] 06/15/2024 12:00 PM EDT Hem/Onc Treatment Hematology/Oncology Treatment, [place] 200 [place] [address] Ritu, Chair 6 Hem Onc Scenery [address] [place] [address] 06/22/2024 11:00 AM EDT Laboratory Laboratory [facility] [address] [place] [address] Ritu, Lab Scenery [address] [place] [address] 06/22/2024 12:00 PM EDT Hem/Onc Treatment Hematology/Oncology Treatment, [place] 200 [place] [address] Ritu, Chair 1 Hem Onc Scenery [address] [place] [address] 06/29/2024 11:00 AM EDT Laboratory Laboratory [facility] Ritu [place] [address] [place], [place] [address] Ritu, Lab Scenery [address] [place], [place] [address] 06/29/2024 12:00 PM EDT [facility] 200 [facility], [place] [address] Ritu, Chair 10 Hem Onc Scenery [address] [place], [place] [address] 07/06/2024 11:10 AM EDT Laboratory Laboratory [facility] Ritu [place] [address] [place], [place] [address] Ritu, Lab Scenery [address] [place], [place] [address] 07/06/2024 12:30 PM EDT Hem[facility] 200 [facility], [place] [address] Ritu, Chair 4 Hem Onc Scenery [address] [place], [place] [address] 07/13/2024 11:00 AM EDT Laboratory Laboratory [facility] Ritu [place] [address] [place], [place] [address] Ritu, Lab Scenery [address] [place], [place] [address] 07/13/2024 11:30 AM EDT Office Visit Hematology/Oncology [facility] Ritu [place] [address] [place], [place] [address] [place] Florez CRNP [address] [facility] [place] [address] 07/13/2024 12:00 PM EDT Hem/Onc Treatment Hematology/Oncology Treatment, [place] [address] Health Maintenance Due Date Last [...] encounter Medical Devices Implanted Type Area Supervisor Toy Assembly Device Identifier Shelf Expiration Date Model / Serial / Lot Screw Elbow Humeral Total - [id number] Implanted:Qty: 1 on 12/23/2018 by Gautam Jasso MD at [place] [facility] Right: Upper Arm [employer] 09/13/202700-090 / / [id number] Deisi Nexel Total Elbow Implanted:Qty: 1 on 12/23/2018 by Gautma Jasso MD at OR [facility] Right: Upper Arm 04/13/2023-5 / / [id number] Cement Antibiotic Bone - [id number] Implanted:Qty: 1 on 12/23/2018 by Gautam Jasso MD at OR [facility] Right: Upper Arm RENY : ORTHOPAEDICS 05/13/2020 6197-9-010 / / [id number] Cement Antibiotic Bone - [id number] Implanted:Qty: 1 on 12/23/2018 by Gautam Jasso MD at OR [facility] Right: Upper Arm RENY : ORTHOPAEDICS 05/13/2020 6197-9-010 / / [id number] Stem Compr Srs Mod 5w121zz - [id number] Implanted:Qty: 1 on 12/23/2018 by Gautam Jasso MD at OR [facility] Right: Upper Arm BIOM[employer] : TRAUMA 01/28/2027 [id number] / / [id number] Deisi Nexel Total Elbow Ulnar Component Implanted:Qty: 1 on 12/23/2018 by Gautam Jasso MD at [place] [facility] Right: Upper Arm 07/14/2025 00-8400-025 -07 / / [id number] Comprehensive Srs/Nexel Distal Body Implanted:Qty: 1 on 12/23/2018 by Gautam Jasso MD at [place] [facility] Right: Upper Arm 03/03/2028 [id number] / / [id number] Valve Ricky 3 Ultra 26mm - [id number] Implanted:Qty: 1 on 05/27/2022 by Jesús Weber MD at [facility] [employer] [id number] 03/17/2023 [id number] / / Port Implant W/8f Poly Cath - [id number] Implanted:Qty: 1 on 12/29/2022 by Sudhir Lovett DO at OR [facility] Right: Chest CR BARD : PERIPHERAL VASCULAR [id number] 02/12/2024 [id number] / / [id number] documented as of this encounter Procedures Procedure [...] Documents on File Type Date Recorded Patient Mosaic Tile Maker Expl anation Power of Insulation Worker Furnace Installer 12/12/2018 8:46 AM Yungt felice Power of Insulation Worker Furnace Installer Power of Insulation Worker Furnace Installer 12/12/2018 8:45 AM Zuleyma ferguson Power of Insulation Worker Furnace Installer * Full Code (Latest Code Status on [...] the patient have Health Care Power of Insulation Worker Furnace Installer? Yes, not currently available * Full Code Date Activated Date Inactivated Comments 11/21/2018 8:53 AM 11/21/2018 2:27 PM This order ref lects the patients wishes and were consensually agreed upon. Care Teams Boat Laborer Relationship Specialty Start Date End Date Sachi Soni MD [address] [place] [address] PCP - General Family Medicine 05/08/24 documented as of this encounter
--- OUTSIDE RECORDS SUMMARY | 2024-07-01 14:41 | External Medical Summary | Summary of Care ---
Author Name Unknown Organization [facility] Address [address] [place] [address] Phone [phone] Care Team Providers Care Conveyor Line Bakery Worker Name Role Phone Sachi Soni MD Primary Care Provider Encounter Details Date Type Department Care Team (Late st Contact Info) Description 05/12/2024 Orders Only Unspecified Department Sachi Soni MD [address], [place] [phone] Allergies Active Allergy Reactions Criticality Noted Date [...] day. 30 Tab 12/25/2018 Active nystatin (NYSTOP) 725345 UNIT/GM powder Apply topically to affected area [...] 05/23/2024 1:30 PM EDT Office Visit Orthopaedics, [place] [address] [place] [address] Gautam Jasso MD [address] [place] [address] 05/25/2024 11:00 AM EDT Laboratory Laboratory [facility] [place] [address] [place] [address] Ritu Lab [address] [place] [address] 05/25/2024 12:00 PM EDT Hem/Onc Treatment Hematology/Oncology Treatment, [address] [phone] Ritu, Chair 3 Hem Onc [facility] [address] [place] [address] 06/01/2024 11:00 AM EDT Laboratory Laboratory [address] [place] [address] [place] [address] Ritu, Lab Ward [address] [place] [address] 06/01/2024 12:00 PM EDT Hem/Onc Treatment Hematology/Oncology Treatment, [place] 200 [facility] [place]ydia [place] [phone] Park, Chair 7 Hem Onc Scenery [address] [place] [address] 06/08/2024 10:00 AM EDT Laboratory Laboratory [facility] [address] [place] [address] Ritu, Lab Scenery [address] [place] [address] 06/08/2024 11:00 AM EDT Hem/Onc Treatment Hematology/Oncology Treatment, [place] 200 [place] [address] Ritu, Chair 7 Hem Onc Scenery [address] [place] [address] 06/15/2024 11:00 AM EDT Laboratory Laboratory [facility] [address] [place] [address] Ritu, Lab Scenery [address] [place] [address] 06/15/2024 12:00 PM EDT Hem/Onc Treatment Hematology/Oncology Treatment, [place] 200 [place] [address] Ritu, Chair 6 Hem Onc Scenery [address] [place] [address] 06/22/2024 11:00 AM EDT Laboratory Laboratory [facility] [address] [place] [address] Ritu, Lab Scenery [address] [place] [address] 06/22/2024 12:00 PM EDT Hem/Onc Treatment Hematology/Oncology Treatment, [place] 200 [place] [address] Ritu, Chair 1 Hem Onc Scenery [address] [place] [address] 06/29/2024 11:00 AM EDT Laboratory Laboratory [facility] Ritu [place] [address] [place], [place] [address] Ritu, Lab Scenery [address] [place], [place] [address] 06/29/2024 12:00 PM EDT [facility] 200 [facility], [place] [address] Ritu, Chair 10 Hem Onc Scenery [address] [place], [place] [address] 07/06/2024 11:10 AM EDT Laboratory Laboratory [facility] Ritu [place] [address] [place], [place] [address] Ritu, Lab Scenery [address] [place], [place] [address] 07/06/2024 12:30 PM EDT [facility] 200 [facility], [place] [address] Ritu, Chair 4 Hem Onc Scenery [address] [place], [place] [address] 07/13/2024 11:00 AM EDT Laboratory Laboratory [facility] Ritu [place] [address] [place], [place] [address] Ritu, Lab Scenery [address] [place], [place] [address] 07/13/2024 11:30 AM EDT Office Visit Hematology/Oncology [facility] Rtiu [place] [address] [place], [place] [address] Mariana Florez CRNP [facility] [place] [address] 07/13/2024 12:00 PM EDT Hem/Onc Treatment Hematology/Oncology Treatment, [place] [address] Health Maintenance Due Date Last [...] this encounter Medical Devices Implanted Type Area Maternal Fetal Physician Device Identifier Shelf Expiration Date Model / Serial / Lot Screw Elbow Humeral Total - [id number] Implanted:Qty: 1 on 12/23/2018 by Gautam Jasso MD [place] [facility] [place] Right: Upper Arm [employer] 09/13/202700-090 / / [id number] Deisi Nexel Total Elbow Implanted:Qty: 1 on 12/23/2018 by Gautam Jasso MD at [place] [facility] [place] Right: Upper Arm 04/13/2023-5 / / [id number] Cement Antibiotic Bone - [id number] Implanted:Qty: 1 on 12/23/2018 by Gautam Jasso MD at [place] [facility] Right: Upper Arm RENY : ORTHOPAEDICS 05/13/2020 6197-9-010 / / [id number] Cement Antibiotic Bone - [id number] Implanted:Qty: 1 on 12/23/2018 by Gautam Jasso MD at [place] [facility] Right: Upper Arm RENY : ORTHOPAEDICS 05/13/2020 6197-9-010 / / [id number] Stem Compr Srs Mod [id number] - [id number] Implanted:Qty: 1 on 12/23/2018 by Gautam Jasso MD at [place] [facility] Right: Upper Arm BIOMET : TRAUMA 01/28/2027 [id number] / / [id number] Deisi Nexel Total Elbow Ulnar Component Implanted:Qty: 1 on 12/23/2018 by Gautam Jasso MD at [place] [facility] Right: Upper Arm 07/14/2025 00-8400-025 -07 / / [id number] Comprehensive Srs/Nexel Distal Body Implanted:Qty: 1 on 12/23/2018 by Gautam Jasso MD at [place] [facility] Right: Upper Arm 03/03/2028 [id number] / / [id number] Valve Ricky 3 Ultra 26mm - [id number] Implanted:Qty: 1 on 05/27/2022 by Jesús Weber MD at [facility] [employer] [id number] 03/17/2023 [id number] / / Port Implant W/8f Poly Cath - [id number] Implanted:Qty: 1 on 12/29/2022 by Sudhir Lovett DO at OR [facility] Right: Chest CR BARD : PERIPHERAL VASCULAR [id number] 02/12/2024 [id number] / / [id number] documented as of this encounter Procedures Procedure [...] Documents on File Type Date Recorded Patient Chocolate Packer Expl anation Power of Shearing Shed Worker 12/12/2018 8:46 AM Yungt felice Power of Shearing Shed Worker Power of Shearing Shed Worker 12/12/2018 8:45 AM Zuleyma ferguson Power of Shearing Shed Worker * Full Code (Latest Code Status [...] the patient have Health Care Power of Shearing Shed Worker? Yes, not currently available * Full Code Date Activated Date Inactivated Comments 11/21/2018 8:53 AM 11/21/2018 2:27 PM This order ref lects the patients wishes and were consensually agreed upon. Care Teams Conveyor Line Bakery Worker Relationship Specialty Start Date End Date Sachi Soni MD [address] [place] [address] PCP - General Family Medicine 05/08/24 documented as of this encounter
--- OUTSIDE RECORDS SUMMARY | 2024-07-01 14:41 | External Medical Summary | Summary of Care ---
Author Name Unknown Organization [facility] Address [address] [facility] [place] [address] Phone [phone] Care Team Providers Care Utilities Manager Name Role Phone Sachi Soni MD Primary Care Provider Reason for Visit * Reason Comments Chemotherapy Cycle 17/Day 15Cytox an IV Therapy IVIG * Episode Based Medications (Routine) - Authorized Specialty Diagnoses / Procedures Referred By Contac t Referred To Contact Diagnoses Multiple myeloma not having achieved remission (HCC) Procedures DE DARATUMUMAB, HYALURONIDASE DE CYCLOPHOSPHAMIDE 100 MG INJ DE INJ, CYCLOPHOSPHAMIDE, NOS Jorge Allen MD [address] [place], [place] [address] Anc Hem/Onc [address] [facility] DEPT CLOSED - 09/27/[address] [place] [address] Referral ID Status Reason Start Date Expiration Date V isits Requested Visits Authorized [id number] Authorized 07/23/2022 11/13/2099 999 99 Encounter Details Date Type Department Care Team (Latest Contact Info) Description 05/11/2024 11:00 AM EDT Hem/Onc Treatment Hematology/Oncolog y Treatment, [place] [address] [place] [address] Ritu, Chair 6 Hem Onc Scenery [address] [place] [address] Multiple myeloma not having achieved remission (HCC)*; [...] day. 30 Tab 12/25/2018 Active nystatin (NYSTOP) 627866 UNIT/GM powder Apply topically to affected area [...] 05/23/2024 1:30 PM EDT Office Visit Orthopaedics, [place] [address] [place] [address] Gautam Jasso MD [address] [place] [address] 05/25/2024 11:00 AM EDT Laboratory Laboratory [facility] 200 [facility] [place] [phone] Ritu, Lab Scene 200 [facility] [place] [address] 05/25/2024 12:00 PM EDT Hem/Onc Treatment Hematology/Oncology Treatment, [address] [address] Ritu, Chair 3 Hem Onc [facility] 200 [facility] [place] [address] 06/01/2024 11:00 AM EDT Laboratory Laboratory [facility] [place] [address] [place] [address] Ritu, Lab [facility] [address] [facility] [place] [address] 06/01/2024 12:00 PM EDT Hem/Onc Treatment Hematology/Oncology Treatment, [address] [address] Park, Chair 7 Hem Onc Scenery [address] [place] [address] 06/08/2024 10:00 AM EDT Laboratory Laboratory [facility] [address] [place] [address] Ritu, Lab Scenery [address] [place] [address] 06/08/2024 11:00 AM EDT Hem/Onc Treatment Hematology/Oncology Treatment, [place] 200 [place] [address] Ritu, Chair 7 Hem Onc Scenery [address] [place] [address] 06/15/2024 11:00 AM EDT Laboratory Laboratory [facility] [address] [place] [address] Ritu, Lab Scenery [address] [place] [address] 06/15/2024 12:00 PM EDT Hem/Onc Treatment Hematology/Oncology Treatment, [place] 200 [place] [address] Ritu, Chair 6 Hem Onc Scenery [address] [place] [address] 06/22/2024 11:00 AM EDT Laboratory Laboratory [facility] [address] [place] [address] Ritu, Lab Scenery [address] [place] [address] 06/22/2024 12:00 PM EDT Hem/Onc Treatment Hematology/Oncology Treatment, [place] 200 [place] [address] Ritu, Chair 1 Hem Onc Scenery [address] [place] [address] 06/29/2024 11:00 AM EDT Laboratory Laboratory [facility] Ritu [place] [address] [place], [place] [address] Ritu, Lab Scenery [address] [place], [place] [address] 06/29/2024 12:00 PM EDT [facility], [place] [address] Ritu, Chair 10 Hem Onc Scenery [address] [place], [place] [address] 07/06/2024 11:10 AM EDT Laboratory Laboratory [facility] Ritu [place] [address] [place], [place] [address] Ritu, Lab Scenery [address] [place], [place] [address] 07/06/2024 12:30 PM EDT Hem[facility] 200 [facility], [place] [address] Ritu, Chair 4 Hem Onc Scenery [address] [place], [place] [address] 07/13/2024 11:00 AM EDT Laboratory Laboratory [facility] Ritu [place] [address] [place], [place] [address] Ritu, Lab Scenery [address] [place], [place] [address] 07/13/2024 11:30 AM EDT Office Visit Hematology/Oncology [facility] Ritu [place] [address] [place], [place] [address] [place] Florez CRNP [address] [facility] [place] [address] 07/13/2024 12:00 PM EDT Hem/Onc Treatment Hematology/Oncology Treatment, [place] [address] Health Maintenance Due Date Last [...] encounter Medical Devices Implanted Type Area Assembly Line Driver Device Identifier Shelf Expiration Date Model / Serial / Lot Screw Elbow Humeral Total - [id number] Implanted:Qty: 1 on 12/23/2018 by Gautam Jasso MD [place] [facility]: Upper Arm [employer] 09/13/202700-090 / / [id number] Deisi Nexel Total Elbow Implanted:Qty: 1 on 12/23/2018 by Gautam Jasso MD [place] [facility] Right: Upper Arm 04/13/2023-5 / / [id number] Cement Antibiotic Bone - [id number] Implanted:Qty: 1 on 12/23/2018 by Gautam Jasso MD [place] [facility] Right: Upper Arm RENY : ORTHOPAEDICS 05/13/2020 6197-9-010 / / [id number] Cement Antibiotic Bone - [id number] Implanted:Qty: 1 on 12/23/2018 by Gautam Jasso MD [place] [facility] Right: Upper Arm RENY : ORTHOPAEDICS 05/13/2020 6197-9-010 / / [id number] Stem Compr Srs Mod [id number] - [id number] Implanted:Qty: 1 on 12/23/2018 by Gautam Jasso MD [place] [facility] Right: Upper Arm BIOMET : TRAUMA 01/28/2027 [id number] / / [id number] Deisi Nexel Total Elbow Ulnar Component Implanted:Qty: 1 on 12/23/2018 by Gautam Jasso MD [place] [facility] Right: Upper Arm 07/14/2025 00-8400-025 -07 / / [id number] Comprehensive Srs/Nexel Distal Body Implanted:Qty: 1 on 12/23/2018 by Gautam Jasso MD [place] [facility] Right: Upper Arm 03/03/2028 [id number] / / [id number] Valve Ricky 3 Ultra 26mm - [id number] Implanted:Qty: 1 on 05/27/2022 by Jesús Weber MD at [facility] [employer] [id number] 03/17/2023 [id number] / / Port Implant W/8f Poly Cath - [id number] Implanted:Qty: 1 on 12/29/2022 by Sudhir Lovett DO at OR [facility] Right: Chest CR BARD : PERIPHERAL VASCULAR [id number] 02/12/2024 [id number] / / [id number] documented as of this encounter Visit Diagnoses [...] Documents on File Type Date Recorded 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 Yes, not currently available * Full Code Date Activated Date Inactivated Comments 11/21/2018 8:53 AM 11/21/2018 2:27 PM This order ref lects the patients wishes and were consensually agreed upon. Care Teams Utilities Manager Relationship Specialty Start Date End Date Sachi Soni MD [address] [place] [address] PCP - General Family Medicine 05/08/24 documented as of this encounter
--- OUTSIDE RECORDS SUMMARY | 2024-07-01 14:41 | External Medical Summary | Summary of Care ---
Author Name Unknown Organization [facility] Address [address] [facility] [place] [address] Phone [phone] Care Team Providers Care Color Drum Worker Name Role Phone Sachi Soni MD Primary Care Provider Reason for Visit * Reason Comments Chemotherapy Cycle 17/Day 15Cytox an IV Therapy IVIG * Episode Based Medications (Routine) - Authorized Specialty Diagnoses / Procedures Referred By Contac t Referred To Contact Diagnoses Multiple myeloma not having achieved remission (HCC) Procedures AK DARATUMUMAB, HYALURONIDASE AK CYCLOPHOSPHAMIDE 100 MG INJ AK INJ, CYCLOPHOSPHAMIDE, NOS Jorge Allen MD [address] [place], [place] [address] Anc Hem/Onc [facility] DEPT CLOSED - 09/27/[address] [place] [address] Referral ID Status Reason Start Date Expiration Date V isits Requested Visits Authorized [id number] Authorized 07/23/2022 11/13/2099 999 99 Encounter Details Date Type Department Care Team (Latest Contact Info) Description 05/11/2024 11:00 AM EDT Hem/Onc Treatment Hematology/Oncolog y Treatment, [place] [address] [place] [address] Ritu, Chair 6 Hem Onc Scenery [address] [place] [address] Multiple myeloma not having achieved remission (HCC)*; [...] day. 30 Tab 12/25/2018 Active nystatin (NYSTOP) 025019 UNIT/GM powder Apply topically to affected area [...] 05/23/2024 1:30 PM EDT Office Visit Orthopaedics, [place] [address] [place] [address] Gautam Jasso MD [address] [place] [address] 05/25/2024 11:00 AM EDT Laboratory Laboratory [facility] 200 [facility] [place] [address] Ritu, Lab Scene 200 [facility] [place] [address] 05/25/2024 12:00 PM EDT Hem/Onc Treatment Hematology/Oncology Treatment, [address] [address] Ritu, Chair 3 Hem Onc [facility] 200 [place] [address] 06/01/2024 11:00 AM EDT Laboratory Laboratory [facility] [place] [address] [place] [address] Ritu, Lab [facility] [address] [facility] [place] [address] 06/01/2024 12:00 PM EDT Hem/Onc Treatment Hematology/Oncology Treatment, [address] [address] Park, Chair 7 Hem Onc Scenery [address] [place] [address] 06/08/2024 10:00 AM EDT Laboratory Laboratory [facility] [address] [place] [address] Ritu, Lab Scenery [address] [place] [address] 06/08/2024 11:00 AM EDT Hem/Onc Treatment Hematology/Oncology Treatment, [place] 200 [facility] [place] [address] iRtu, Chair 7 Hem Onc Scenery [address] [place] [address] 06/15/2024 11:00 AM EDT Laboratory Laboratory [facility] [address] [place] [address] Ritu, Lab Scenery [address] [place] [address] 06/15/2024 12:00 PM EDT Hem/Onc Treatment Hematology/Oncology Treatment, [place] 200 [facility] [place] [address] Ritu, Chair 6 Hem Onc Scenery [address] [place] [address] 06/22/2024 11:00 AM EDT Laboratory Laboratory [facility] [address] [place] [address] Ritu, Lab Scenery [address] [place] [address] 06/22/2024 12:00 PM EDT Hem/Onc Treatment Hematology/Oncology Treatment, [place] 200 [facility] [place] [address] Ritu, Chair 1 Hem Onc Scenery [address] [place] [address] 06/29/2024 11:00 AM EDT Laboratory Laboratory [facility] Ritu [place] [address] [place], [place] [address] Ritu, Lab Scenery [address] [place], [place] [address] 06/29/2024 12:00 PM EDT [facility] 200 [facility], [place] [address] Ritu, Chair 10 Hem Onc Scenery [address] [place], [place] [address] 07/06/2024 11:10 AM EDT Laboratory Laboratory [facility] Ritu [place] [address] [place], [place] [address] Ritu, Lab Scenery [address] [place], [place] [address] 07/06/2024 12:30 PM EDT Hem[facility]Onc [facility] 200 [facility], [place] [address] Ritu, Chair 4 Hem Onc Scenery [address] [place], [place] [address] 07/13/2024 11:00 AM EDT Laboratory Laboratory [facility] Ritu [place] [address] [place], [place] [address] Ritu, Lab Scenery [address] [place], [place] [address] 07/13/2024 11:30 AM EDT Office Visit Hematology/Oncology [facility] Ritu [place] [address] [place], [place] [address] [place] Florez CRNP [address] [facility] [place] [address] 07/13/2024 12:00 PM EDT Hem/Onc Treatment Hematology/Oncology Treatment, [address] [address] Health Maintenance Due Date Last [...] this encounter Medical Devices Implanted Type Area Cone Tender Device Identifier Shelf Expiration Date Model / Serial / Lot Screw Elbow Humeral Total - [id number] Implanted:Qty: 1 on 12/23/2018 by Gautam Jasso MD at OR [facility] Right: Upper Arm [employer] 09/13/202700-090 / / [id number] Deisi Nexel Total Elbow Implanted:Qty: 1 on 12/23/2018 by Gautam Jasso MD at OR [facility] Right: Upper Arm 04/13/2023-5 / / [id number] Cement Antibiotic Bone - [id number] Implanted:Qty: 1 on 12/23/2018 by Gautam Jasso MD at OR [facility] Right: Upper Arm RENY : ORTHOPAEDICS 05/13/2020 6197-9-010 / / [id number] Cement Antibiotic Bone - [id number] Implanted:Qty: 1 on 12/23/2018 by Gautam Jasso MD at OR [facility] Right: Upper Arm RENY : ORTHOPAEDICS 05/13/2020 6197-9-010 / / [id number] Stem Compr Srs Mod [id number] - [id number] Implanted:Qty: 1 on 12/23/2018 by Gautam Jasso MD at OR [facility] Right: Upper Arm BIOMET : TRAUMA 01/28/2027 [id number] / / [id number] Deisi Nexel Total Elbow Ulnar Component Implanted:Qty: 1 on 12/23/2018 by Gautam Jasso MD at OR [facility] Right: Upper Arm 07/14/2025 00-8400-025 -07 / / [id number] Comprehensive Srs/Nexel Distal Body Implanted:Qty: 1 on 12/23/2018 by Gautam Jasso MD at OR [facility] Right: Upper Arm 03/03/2028 [id number] / / [id number] Valve Ricky 3 Ultra 26mm - [id number] Implanted:Qty: 1 on 05/27/2022 by Jesús Weber MD at CARDIAC LABS [facility] [employer] [id number] 03/17/2023 [id number] / / Port Implant W/8f Poly Cath - [id number] Implanted:Qty: 1 on 12/29/2022 by Sudhir Lovett DO at OR [facility] Right: Chest CR BARD : PERIPHERAL VASCULAR [id number] 02/12/2024 [id number] / / [id number] documented as of this encounter Visit Diagnoses [...] Documents on File Type Date Recorded Patient Biomed Tech Expl anation Power of Hydrography Teacher 12/12/2018 8:46 AM Healpamela hcare Power of Hydrography Teacher Power of Hydrography Teacher 12/12/2018 8:45 AM Zuleyma ferguson Power of Hydrography Teacher * Full Code (Latest Code Status [...] the patient have Health Care Power of Hydrography Teacher? Yes, not currently available * Full Code Date Activated Date Inactivated Comments 11/21/2018 8:53 AM 11/21/2018 2:27 PM This order ref lects the patients wishes and were consensually agreed upon. Care Teams Color Drum Worker Relationship Specialty Start Date End Date Sachi Soni MD [address] [facility] [place] [address] PCP - General Family Medicine 05/08/24 documented as of this encounter
--- OUTSIDE RECORDS SUMMARY | 2024-07-01 14:41 | External Medical Summary | Summary of Care ---
Author Name Unknown Organization [facility] Address [address] [place] [facility] [place] [address] Phone [phone] Care Team Providers Care Film Developer Name Role Phone Sachi Soni MD Primary Care Provider [phone] Encounter Details Date Type Department Care Team (Late st Contact Info) Description 05/12/2024 Orders Only Unspecified Department Sachi Soni MD [address], [place] [id number] Allergies Active Allergy Reactions Criticality Noted Date [...] day. 30 Tab 12/25/2018 Active nystatin (NYSTOP) 971744 UNIT/GM powder Apply topically to affected area [...] 05/23/2024 1:30 PM EDT Office Visit Orthopaedics, [place] [address] [place] [address] Gautam Jasso MD [address] [place] [address] 05/25/2024 11:00 AM EDT Laboratory Laboratory [facility] [place] [address] [place] [address] Ritu Lab [address] [place] [address] 05/25/2024 12:00 PM EDT Hem/Onc Treatment Hematology/Oncology [address], [address] [address] Ritu, Chair 3 Hem Onc [facility] [address] [place] [address] 06/01/2024 11:00 AM EDT Laboratory Laboratory [address] [place] [address] [place] [address] Ritu, Lab [place] [address] [place] [address] 06/01/2024 12:00 PM EDT Hem/Onc Treatment Hematology/Oncology Treatment, [place] [address] [facility] [place] [address] Park, Chair 7 Hem Onc Sc[address] [place] [address] 06/08/2024 10:00 AM EDT Laboratory Laboratory [facility] [address] [place] [address] Ritu, Lab Scenery [address] [place] [address] 06/08/2024 11:00 AM EDT Hem/Onc Treatment Hematology/Oncology Treatment, [place] 200 [place] [address] Ritu, Chair 7 Hem Onc Scenery [address] [place] [address] 06/15/2024 11:00 AM EDT Laboratory Laboratory [facility] [address] [place] [address] Ritu, Lab Scenery [address] [place] [address] 06/15/2024 12:00 PM EDT Hem/Onc Treatment Hematology/Oncology Treatment, [place] [address] [place] [address] Ritu, Chair 6 Hem Onc Scenery [address] [place] [address] 06/22/2024 11:00 AM EDT Laboratory Laboratory [facility] [address] [place] [address] Ritu, Lab Scenery [address] [place] [address] 06/22/2024 12:00 PM EDT Hem/Onc Treatment Hematology/Oncology Treatment, [place] [address] [place] [address] Ritu, Chair 1 Hem Onc Scenery [address] [place] [address] 06/29/2024 11:00 AM EDT Laboratory Laboratory [facility] Ritu [place] [address] [place], [place] [address] Ritu, Lab Scenery [address] [place], [place] [address] 06/29/2024 12:00 PM EDT [facility] [address] [facility], [place] [address] Ritu, Chair 10 Hem Onc Scenery [address] [place], [place] [address] 07/06/2024 11:10 AM EDT Laboratory Laboratory [facility] Ritu [place] [address] [place], [place] [address] Ritu, Lab Scenery [address] [place], [place] [address] 07/06/2024 12:30 PM EDT Hem[facility] [address] [facility], [place] [address] Ritu, Chair 4 Hem Onc Scenery [address] [place], [place] [address] 07/13/2024 11:00 AM EDT Laboratory Laboratory [facility] Ritu [place] [address] [place], [place] [address] Ritu, Lab Scenery [address] [place], [place] [address] 07/13/2024 11:30 AM EDT Office Visit Hematology/Oncology [facility] Ritu [place] [address] [place], [place] [address] Mariana Florez CRNP [address] [facility] [place] [address] 07/13/2024 12:00 PM EDT Hem/Onc Treatment Hematology/Oncology Treatment, [place] [address] Health Maintenance Due Date Last [...] this encounter Medical Devices Implanted Type Area Herb Digger Device Identifier Shelf Expiration Date Model / Serial / Lot Screw Elbow Humeral Total - [id number] Implanted:Qty: 1 on 12/23/2018 by Gautam Jasso MD at [place] [facility] Right: Upper Arm [employer] 09/13/202700-090 / / [id number] Deisi Nexel Total Elbow Implanted:Qty: 1 on 12/23/2018 by Gautam Jasso MD at OR [facility] Right: Upper Arm 04/13/2023-5 / / [id number] Cement Antibiotic Bone - [id number] Implanted:Qty: 1 on 12/23/2018 by Gautam Jasso MD at OR [facility] Right: Upper Arm RENY : ORTHOPAEDICS 05/13/2020 6197-9-010 / / [id number] Cement Antibiotic Bone - [id number] Implanted:Qty: 1 on 12/23/2018 by Gautam Jasso MD at OR [facility] Right: Upper Arm RENY : ORTHOPAEDICS 05/13/2020 6197-9-010 / / [id number] Stem Compr Srs Mod [id number] - [id number] Implanted:Qty: 1 on 12/23/2018 by Gautam Jasso MD at OR [facility] Right: Upper Arm BIOMET : TRAUMA 01/28/2027 [id number] / / [id number] Deisi Nexel Total Elbow Ulnar Component Implanted:Qty: 1 on 12/23/2018 by Gautam Jasso MD at OR [facility] Right: Upper Arm 07/14/2025 00-8400-025 -07 / / [id number] Comprehensive Srs/Nexel Distal Body Implanted:Qty: 1 on 12/23/2018 by Gautam Jasso MD at OR [facility] Right: Upper Arm 03/03/2028 [id number] / / [id number] Valve Ricky 3 Ultra 26mm - [id number] Implanted:Qty: 1 on 05/27/2022 by Jesús Weber MD at CARDIAC LABS [facility] [employer] [id number] 03/17/2023 [id number] / / Port Implant W/8f Poly Cath - [id number] Implanted:Qty: 1 on 12/29/2022 by Sudhir Lovett DO at OR [facility] Right: Chest CR BARD : PERIPHERAL VASCULAR [id number] 02/12/2024 [id number] / / [id number] documented as of this encounter Procedures Procedure [...] Documents on File Type Date Recorded 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 Yes, not currently available * Full Code Date Activated Date Inactivated Comments 11/21/2018 8:53 AM 11/21/2018 2:27 PM This order ref lects the patients wishes and were consensually agreed upon. Care Teams Film Developer Relationship Specialty Start Date End Date Sachi Soni MD [address] [place] [address] PCP - General Family Medicine 05/08/24 documented as of this encounter
--- OUTSIDE RECORDS SUMMARY | 2024-07-01 14:42 | External Medical Summary | Summary of Care ---
Author Name Unknown Organization [facility] Address [address] [facility] [place] [address] Phone [phone] Care Team Providers Care Managed Care Provider Name Role Phone Sachi Soni MD Primary Care Provider [phone] Encounter Details Date Type Department Care Team (Late st Contact Info) Description 05/14/2024 Patient Reported Data Patient Survey Ortho OBERD Allergies Active Allergy Reactions Criticality Noted Date Comments Adhesive Tape 05/28/2003 documented as of this encounter (statuses as of 05/14/2024) Medications Medication Sig Dispensed Refills Start Date [...] day. 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 Aortic valve stenosis 2021 documented as of this encounter (statuses as of 05/14/2024) Social History Tobacco Use Types Packs/Day Years [...] Care Team (Late st Contact Info) Description 05/18/2024 11:00 AM EDT Laboratory Laboratory [address] [place] [address] [place] [address] [phone] [place] [address] 05/18/2024 11:10 AM EDT Imaging Radiology [facility] Ritu [place] [address] [place] [address] 05/18/2024 12:00 PM EDT Hem/Onc Treatment Hematology/Oncology Treatment[address] [place] [address] Ritu, Chair 2 Hem Onc [place] [address] [place] [address] 05/23/2024 1:30 PM EDT Office Visit Orthopaedics, [place] [address] [place] [address] Gautam Jasso MD [address] [place] [address] 05/25/2024 11:00 AM EDT Laboratory Laboratory [address] [place] [address] [address] [facility] [place] [address] 05/25/2024 12:00 PM EDT Hem/Onc Treatment Hematology/Oncology Treatment, [address] [place] [address] 06/01/2024 11:00 AM EDT Laboratory Laboratory [facility] [place] [address] [place], [place] [address] Ritu, Lab Scenery [address] [place], [place] [address] 06/01/2024 12:00 PM EDT Hem/Onc Treatment Hematology/Oncology Treatment, [place] 200 [facility], [place] [address] Ritu, Chair 7 Hem Onc Scenery [address] [place], [place] [address] 06/08/2024 10:00 AM EDT Laboratory Laboratory [facility] [place] [address] [place], [place] [address] Ritu, Lab Scenery [address] [facility] [place], [place] [address] 06/08/2024 11:00 AM EDT Hem/Onc Treatment Hematology/Oncology Treatment, [place] 200 [facility], [place] [address] Ritu, Chair 7 Hem Onc Scenery [address] [place], [place] [address] 07/13/2024 11:00 AM EDT Laboratory Laboratory [facility] Ritu [place] [address] [place], [place] [address] Ritu, Lab Scenery [address] [facility] [place], [place] [address] 07/13/2024 11:30 AM EDT Office Visit Hematology/Oncology [facility] Ritu [place] [address] [place], [place] [address] Mariana Florez CRNP [address] [place] [address] Health Maintenance Due Date Last Done Comments [...] Vaccine (FLU shot) (#1) 2024 09/04/2016 GFR 05/11/2025 05/11/2024, 04/15, 04/26/2024, Additional history exists Pneumococcal Vaccine: 65+ Years Completed 03/10/2017, 02/18/2017, 01/12/2010 GARDASIL-HPV IMMUNIZATION SERIES Aged Out No longer eligible based on patient's age to complete this topic Hepatitis B Aged Out No longer eligi ble based on patient's age to complete this topic MENINGOCOCCAL (MENACTRA/MENVEO) Aged Out No longer eligible based on patient's age to complete this topic documented as of this encounter Medical Devices Implanted Type Area First Aid Nurse Device Identifier Shelf Expiration Date Model / Serial / Lot Screw Elbow Humeral Total - [id number] Implanted:Qty: 1 on 12/23/2018 by Gautam Jasso MD at [place] [facility] Right: Upper Arm [employer] 09/13/20278400-090 -00 / / [id number] Deisi Nexel Total Elbow Implanted:Qty: 1 on 12/23/2018 by Gautam Jasso MD at OR [facility] Right: Upper Arm 04/13/20238400-095 -00 / / [id number] Cement Antibiotic Bone - [id number] Implanted:Qty: 1 on 12/23/2018 by Gautam Jasso MD at OR [facility] Right: Upper Arm RENY : ORTHOPAEDICS 05/13/2020 6197-9-010 / / [id number] Cement Antibiotic Bone - [id number] Implanted:Qty: 1 on 12/23/2018 by Gautam Jasso MD at OR [facility] Right: Upper Arm RENY : ORTHOPAEDICS 05/13/2020 6197-9-010 / / [id number] Stem Compr Srs Mod [id number] - [id number] Implanted:Qty: 1 on 12/23/2018 by Gautam Jasso MD at OR [facility] Right: Upper Arm BIOMET : TRAUMA 01/28/2027 [id number] / / [id number] Deisi Nexel Total Elbow Ulnar Component Implanted:Qty: 1 on 12/23/2018 by Gautam Jasso MD at [place] [facility] Right: Upper Arm 07/14/2025 00-8400-025 -07 / / [id number] Comprehensive Srs/Nexel Distal Body Implanted:Qty: 1 on 12/23/2018 by Gautam Jasso MD at OR [facility] Right: Upper Arm 03/03/2028 [id number] / / [id number] Valve Ricky 3 Ultra 26mm - [id number] Implanted:Qty: 1 on 05/27/2022 by Jesús Weber MD at [facility] [employer] [id number] 03/17/2023 [id number] / / Port Implant W/8f Poly Cath - [id number] Implanted:Qty: 1 on 12/29/2022 by Sudhir Lovett DO at OR [facility] Right: Chest CR BARD : PERIPHERAL VASCULAR [id number] 02/12/2024 [id number] / / [id number] documented as of this encounter Advance Directives Documents on File Type Date Recorded 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 Yes, not currently available * Full Code Date Activated Date Inactivated Comments 11/21/2018 8:53 AM 11/21/2018 2:27 PM This order ref lects the patients wishes and were consensually agreed upon. Care Teams Managed Care Provider Relationship Specialty Start Date End Date Sachi Soni MD [address] [place] [facility] [place] [address] PCP - General Family Medicine 05/08/24 documented as of this encounter
--- OUTSIDE RECORDS SUMMARY | 2024-07-01 14:42 | External Medical Summary ---
Author Name Unknown Address Unknown Organization K01:LABORATORY [facility] - [address] [facility] [place] [address] Laboratory Report Ordering Provider Test Date Status WOOD CANTU 05/16/2024 15:29:00 Final Observation Date Value Abnormality Reference (Units ) Status BUN 05/16/2024 15:29:00 18 6-20 (mg/dL) Final Creatinine 05/16/2024 15:29:00 0.8 0.5-1.0 (mg/dL) Final Glomerular filtration rate/1.73 sq M.predicted [Volume Rate/Area] in Serum, Plasma or Blood by Creatinine-based formula (CKD-EPI) 05/16/2024 15:29:00 69 >=60 (mL/min) Final eGFR is calculated based on the CKD-EPI 2020 equation Sodium 05/16/2024 15:29:00 142 135-146 (m mol/L) Final Potassium 05/16/2024 15:29:00 4.1 3.5-5.1 (m mol/L) Final Cl 05/16/2024 15:29:00 106 98-107 (mm ol/L) Final CO2 05/16/2024 15:29:00 23 22-32 (mmo l/L) Final Anion gap 05/16/2024 15:29:00 13 7-15 (mmol /L) Final Glucose 05/16/2024 15:29:00 140 Above high normal 70 -120 (mg/dL) Final Albumin 05/16/2024 15:29:00 3.8 3.8-5.0 (g /dL) Final AST (Aspartate aminotransferase) 05/16/2024 15:29:00 15 10-35 (U/L) Fin al Alk Phos 05/16/2024 15:29:00 63 35-130 (U/ L) Final Bilirubin, Total 05/16/2024 15:29:00 0.3 <=1 .2 (mg/dL) Final Calcium 05/16/2024 15:29:00 9.2 8.4-10.2 ( mg/dL) Final Protein 05/16/2024 15:29:00 6.3 6.0-8.3 (g /dL) Final ALT (Alanine aminotransferase) 05/16/2024 15:29:00 8 Below low normal 10-35 (U/L) Final Performing Location LABORATORY [facility] - [address] [facility] [address]
--- OUTSIDE RECORDS SUMMARY | 2024-07-01 14:42 | External Medical Summary | Summary of Care ---
Author Name Unknown Organization [facility] Address [address] [place] [address] Phone [phone] Care Team Providers Care Watchguard Name Role Phone Sachi Soni MD Primary Care Provider [phone] Reason for Visit * Reason Onset Date Comments Appointment 05/18/2024 gautam Encounter Details Date Type Department Care Team (Late st Contact Info) Description 05/18/2024 Telephone Hematology/Oncology Treatment, [place] [address] [place] [address] Services, Scheduling [address] [place] [address] Appointment (gautam) Allergies Active Allergy Reactions Criticality Noted Date [...] day. 30 Tab 12/25/2018 Active nystatin (NYSTOP) 725537 UNIT/GM powder Apply topically to affected area [...] Telephone Encounter - Merrick Gross RN - 05/18/2024 3:03 PM EDT Scheduling- please also schedule appointments as stated below on 06/15. Apologies I overlooked this. Sent MyG to patients daughter. * Telephone Encounter - Katie Craft OSA - 05/18/2024 11:29 AM EDT Pt is scheduled for the jun apts The daughter was asking thjessica about 06/15 if she is suppose to schedule that as well They just asked for a my g with the date and time and answer to the above question. * Telephone Encounter - Merrick Gross RN - 05/18/2024 10:58 AM EDT Reviewed labs with Dr. Allen- kirby for treatment today. No phosphorus was completed on 05/16/24. Added this to her lab work as patient is due for Xgeva today. Called patients daughter back. She states patient already had the xray completed last week at [facility] of her arm, would like the xray schedule to be cancelled at this time. She has a follow up scheduledwith Dr. Jasso to review this on 7/10. Daughter requesting that future treatment appointments be scheduled so that she can coordinate scheduling. Scheduling- please schedule patient for the following appointments on the following dates: 06/22 , 06/29 , 07/06 , 07/13 - Labs "CBCD,CMP" 1 hour prior to treatment @ [facility] - 2 hour treatment "Cytoxan" (Allen) * Telephone Encounter - Lilli Galarza OSA - 05/18/2024 10:32 AM EDT Meghana -daughter -[phone] states mom already had labwork and xray done. She would like a call before 11 am today letting her know if mom can still have treatment done at 1200 with current results of lab work. She would also like to schedule a month or so out for treatments so she can have transportation lined up ahead of time. thanks documented in this encounter Plan of Treatment Upcoming Encounters Date Type Department Care Team (Late st Contact Info) Description 05/23/2024 1:30 PM EDT Office Visit Orthopaedics, [place] [address] [place] [address] Gautam Jasso MD [address] [place] [address] 05/25/2024 11:00 AM EDT Laboratory Laboratory [facility] [place] [address] [address] [place] [address] Ritu, Lab [address] [place], [place] [address] 05/25/2024 12:00 PM EDT Hem/Onc Treatment Hematology/Oncology Treatment, [place] [address] [facility] [address] Ritu, Chair 3 Hem Onc [facility] [address] [place] [address] 06/01/2024 11:00 AM EDT Laboratory Laboratory [facility] [place], [address] [place] [address] [place], Lab Scenery [address] [place] [address] 06/01/2024 12:00 PM EDT Hem/Onc Treatment Hematology/Oncology Treatment, [place] 200 [place] [address] Ritu, Chair 7 Hem Onc Scen[address] [place] [address] 06/08/2024 10:00 AM EDT Laboratory Laboratory [facility] [place] [address] [place] [address] Ritu, Lab Scenery [address] [place] [address] 06/08/2024 11:00 AM EDT Hem/Onc Treatment Hematology/Oncology Treatment, [place] 200 [place] [address] Ritu, Chair 7 Hem Onc [address] [place] [address] 06/22/2024 11:00 AM EDT Laboratory Laboratory [facility] [address] [place] [address] Ritu, Lab Scenery [address] [place] [address] 06/22/2024 12:00 PM EDT [facility] [address] [place] [address] Ritu, Chair 1 Hem Onc [address] [place] [address] 06/29/2024 11:00 AM EDT Laboratory Laboratory [facility] [place] [address] [place] [address] Ritu, Lab Scenery [address] [place] [address] 06/29/2024 12:00 PM EDT Hem/Onc Treatment Hematology/Oncology Treatment, [place] 200 [facility], [place] [address] Ritu, Chair 10 Hem Onc [address] [place], [place] [address] 07/06/2024 11:10 AM EDT Laboratory Laboratory [facility] Ritu [place] [address] [place], [place] [address] Ritu, Lab [address] [place], [place] [address] 07/06/2024 12:30 PM EDT Hem/Onc Treatment Hematology/Oncology Treatment, [place] [address] [facility], [place] [address] Ritu, Chair 4 Hem Onc [address] [place], [place] [address] 07/13/2024 11:00 AM EDT Laboratory Laboratory [facility] Ritu [place] [address] [place], [place] [address] Ritu, Lab [facility] [address] [place], [place] [address] 07/13/2024 11:30 AM EDT Office Visit Hematology/Oncology [facility] Ritu [place] [address] [place], [place] [address] [place] Florez CRNP [address] [facility] [place] [address] 07/13/2024 12:00 PM EDT Hem/Onc Treatment Hematology/Oncology Treatment, [place] 200 [facility], [place] [address] Health Maintenance Due Date Last Done Comments [...] this encounter Medical Devices Implanted Type Area Frame Table Operator Helper Device Identifier Shelf Expiration Date Model / Serial / Lot Screw Elbow Humeral Total - [id number] Implanted:Qty: 1 on 12/23/2018 by G[place]am Jasso [place] [facility] [place]: Upper Arm [employer] 09/13/20278400-090 -00 / / [id number] Deisi Nexel Total Elbow Implanted:Qty: 1 on 12/23/2018 by Gautam Jasso MD [place] [facility] Right: Upper Arm 04/13/20238400-095 -00 / / [id number] Cement Antibiotic Bone - [id number] Implanted:Qty: 1 on 12/23/2018 by Gautam Jasso MD [place] [facility] Right: Upper Arm RENY : ORTHOPAEDICS 05/13/2020 6197-9-010 / / [id number] Cement Antibiotic Bone - [id number] Implanted:Qty: 1 on 12/23/2018 by Gautam Jasso MD [place] [facility] Right: Upper Arm RENY : ORTHOPAEDICS 05/13/2020 6197-9-010 / / [id number] Stem Compr Srs Mod [id number] - [id number] Implanted:Qty: 1 on 12/23/2018 by Gautam Jasso MD [place] [facility] Right: Upper Arm BIOMET : TRAUMA 01/28/2027 [id number] / / [id number] Deisi Nexel Total Elbow Ulnar Component Implanted:Qty: 1 on 12/23/2018 by Gautam Jasso MD [place] [facility] Right: Upper Arm 07/14/2025 00-8400-025 -07 / / [id number] Comprehensive Srs/Nexel Distal Body Implanted:Qty: 1 on 12/23/2018 by Gautam Jasso MD [place] [facility] Right: Upper Arm 03/03/2028 [id number] / / [id number] Valve Ricky 3 Ultra 26mm - [id number] Implanted:Qty: 1 on 05/27/2022 by Jesús Weber MD at [facility] [employer] [id number] 03/17/2023 [id number] / / Port Implant W/8f Poly Cath - [id number] Implanted:Qty: 1 on 12/29/2022 by Sudhir Lovett DO at OR [facility] Right: Chest CR BARD : PERIPHERAL VASCULAR [id number] 02/12/2024 [id number] / / [id number] documented as of this encounter Results * PHOSPHORUS (05/16/2024 3:29 PM EDT) Phosphorus 2.8 2.5 - 4.8 mg/dL 05/18/2024 11:46 AM EDT LABORATORY [facility] Blood Venous blood specimen / Unknown Venipuncture / Unknown 05/16/2024 3:29 PM EDT 05/16/2024 3:30 PM EDT Jorge Allen MD LAB BLOOD ORDERABLES LAB[facility]ATORY [facility] [address] [place] [address] documented in this encounter Visit Diagnoses Diagnosis Multiple myeloma not having achieved remission (HCC)- Primary Multiple myeloma, without mention of having achieved remission documented in this encounter Advance Directives Documents on File Type Date Recorded 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 Yes, not currently available * Full Code Date Activated Date Inactivated Comments 11/21/2018 8:53 AM 11/21/2018 2:27 PM This order ref lects the patients wishes and were consensually agreed upon. Care Teams Watchguard Relationship Specialty Start Date End Date Sachi Soni MD [address] [place] [facility] [place] [address] PCP - General Family Medicine 05/08/24 documented as of this encounter
--- OUTSIDE RECORDS SUMMARY | 2024-07-01 14:42 | External Medical Summary ---
Author Name Unknown Address Unknown Organization K01:[facility] [place] [address] [facility] [place] [address] Laboratory Report Ordering Provider Test Date Status WOOD CANTU 05/16/2024 15:40:00 Final Observation Date Value Abnormality Reference (Units ) Status WBC, Total 05/16/2024 15:40:00 2.37 Below low normal 4. 00-10.80 (K/uL) Final RBC 05/16/2024 15:40:00 3.23 3.85-5.15 (M/uL) Final Hemoglobin 05/16/2024 15:40:00 9.7 Below low normal 12 .0-15.3 (g/dL) Final HCT 05/16/2024 15:40:00 30.9 Below low normal 36. 0-45.2 (%) Final MCV 05/16/2024 15:40:00 95.7 81.5-97.5 (fL) Final MCH 05/16/2024 15:40:00 30.0 27.0-34.0 (pg) Final MCHC 05/16/2024 15:40:00 31.4 32.0-36.0 (g/dL) Final RDW 05/16/2024 15:40:00 18.5 11.5-15.5 (%) Final Platelets 05/16/2024 15:40:00 117 Below low normal 140 -400 (K/uL) Final MPV 05/16/2024 15:40:00 Final No result - abnormal platele t distribution. Nucleated erythrocytes/100 leukocytes [Ratio] in Blood by Automated count 05/16/2024 15:40:00 2 Above high normal <=0 (/100 WBCs) Final Performing Location [facility] [place] - [address] [place] [address]
--- OUTSIDE RECORDS SUMMARY | 2024-07-01 14:42 | External Medical Summary | Summary of Care ---
Author Name Unknown Organization [facility] Address [address] [facility] [place] [address] Phone [phone] Care Team Providers Care Camera Repair Technician Name Role Phone Sachi Soni MD Primary Care Provider [phone] Reason for Visit * Reason Comments Chemotherapy Cycle 17/Day 15Cytox an IV Therapy IVIG * Episode Based Medications (Routine) - Authorized Specialty Diagnoses / Procedures Referred By Contac t Referred To Contact Diagnoses Multiple myeloma not having achieved remission (HCC) Procedures CT DARATUMUMAB, HYALURONIDASE CT CYCLOPHOSPHAMIDE [address] INJ, CYCLOPHOSPHAMIDE, NOS Jorge Allen MD [address] [place], [place] [address] Anc Hem/Onc [facility] DEPT CLOSED - 09/27/[address] [place] [phone] Referral ID Status Reason Start Date Expiration Date V isits Requested Visits Authorized [id number] Authorized 07/23/2022 11/13/2099 999 99 Encounter Details Date Type Department Care Team (Latest Contact Info) Description 05/11/2024 11:00 AM EDT Hem/Onc Treatment Hematology/Oncolog y Treatment, [place] [address] [place] [address] Ritu, Chair 6 Hem Onc Scenery [address] [place] [address] Multiple myeloma not having achieved remission (HCC)*; Hypogammaglobulinemia (HCC); Encounter for antineoplastic chemotherapy Allergies Active Allergy Reactions Criticality Noted Date Comments Adhesive Tape 05/28/2003 documented as of this encounter (statuses as of 05/15/2024) Medications Medication Sig Dispensed Refills Start Date [...] day. 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 Aortic valve stenosis 2021 documented as of this encounter (statuses as of 05/15/2024) Social History Tobacco Use Types Packs/Day Years [...] Description 05/18/2024 11:00 AM EDT Laboratory Laboratory [facility] [place] [address] [place] [phone] [place], [facility] [address] [facility] [place] [address] 05/18/2024 11:10 AM EDT Imaging Radiology [facility] [place] [address] [place] [address] 05/18/2024 12:00 PM EDT Hem/Onc Treatment Hematology/Oncology Treatment, [place] [address] [facility] [address] [place] [phone] Ritu, Chair 2 Hem Onc [facility] [address] [facility] [place] [address] 05/23/2024 1:30 PM EDT Office Visit Orthopaedics, [place] [address] [place] [address] Gautam Jasso MD [address] [place] [address] 05/25/2024 11:00 AM EDT Laboratory Laboratory [facility] [place] [address] [place] [address] Ritu, Lab [facility] [address] [facility] [place] [address] 05/25/2024 12:00 PM EDT Hem/Onc Treatment Hematology/Oncology Treatment, [place] 200 [facility] [address] 06/01/2024 11:00 AM EDT Laboratory Laboratory [facility] [address] [place], [place] [address] Ritu, Lab Scenery [address] [place], [place] [address] 06/01/2024 12:00 PM EDT Hem/Onc Treatment Hematology/Oncology Treatment, [place] 200 [facility] [address] Ritu, Chair 7 Hem Onc Scenery [address] [place], [place] [address] 06/08/2024 10:00 AM EDT Laboratory Laboratory [facility] [place] [address] [place], [place] [address] Ritu, Lab Scenery [address] [place], [place] [address] 06/08/2024 11:00 AM EDT Hem/Onc Treatment Hematology/Oncology Treatment, [place] 200 [facility], [place] [address] Ritu, Chair 7 Hem Onc Scenery [address] [place] [address] 07/13/2024 11:00 AM EDT Laboratory Laboratory [facility] [place] [address] [place], [place] [address] Ritu, Lab Scenery [address] [place] [address] 07/13/2024 11:30 AM EDT Office Visit Hematology/Oncology [facility] [address] [place], [place] [address] Mariana Florez CRNP [address] [place] [address] [place] [address] Health Maintenance Due Date Last Done Comments [...] encounter Medical Devices Implanted Type Area Hospice Rn Device Identifier Shelf Expiration Date Model / Serial / Lot Screw Elbow Humeral Total - [id number] Implanted:Qty: 1 on 12/23/2018 [place]am [place] [facility] [place] Arm [employer]ISI [employer] 09/13/202700-090 -00 / / [id number] Deisi Nexel Total Elbow Implanted:Qty: 1 on 12/23/2018 by Gautam Jasso [place] [facility] [place] Upper Arm 04/13/202300-095 -00 / / [id number] Cement Antibiotic Bone - [id number] Implanted:Qty: 1 on 12/23/2018 by Gautam Jasso [place] [facility] [place] Upper Arm RENY : ORTHOPAEDICS 05/13/2020 6197-9-010 / / [id number] Cement Antibiotic Bone - [id number] Implanted:Qty: 1 on 12/23/2018 by Gautam Jasso [place] [facility] [place] Upper Arm RENY : ORTHOPAEDICS 05/13/2020 6197-9-010 / / [id number] Stem Compr Srs Mod [id number] - [id number] Implanted:Qty: 1 on 12/23/2018 by Gautam Jasso [place] [facility] [place] Upper Arm BIOMET : TRAUMA 01/28/2027 [id number] / / [id number] Deisi Nexel Total Elbow Ulnar Component Implanted:Qty: 1 on 12/23/2018 by Gautam Jasso [place] [facility] [place]: Upper Arm 07/14/2025 00-8400-025 -07 / / [id number] Comprehensive Srs/Nexel Distal Body Implanted:Qty: 1 on 12/23/2018 by Gautam Jasso MD [place] [facility] [place]: Upper Arm 03/03/2028 [id number] / / [id number] Valve Ricky 3 Ultra 26mm - [id number] Implanted:Qty: 1 on 05/27/2022 by Jesús Weber MD [place] [facility] [place] [employer] [id number] 03/17/2023 [id number] / / Port Implant W/8f Poly Cath - [id number] Implanted:Qty: 1 on 12/29/2022 by Sudhir Lovett DO at OR [facility] Right: Chest CR BARD : PERIPHERAL VASCULAR [id number] 02/12/2024 [id number] / / [id number] documented as of this encounter Visit Diagnoses [...] Documents on File Type Date Recorded Patient 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 Yes, not currently available * Full Code Date Activated Date Inactivated Comments 11/21/2018 8:53 AM 11/21/2018 2:27 PM This order ref lects the patients wishes and were consensually agreed upon. Care Teams Camera Repair Technician Relationship Specialty Start Date End Date Sachi Soni MD [address] [facility] [address] PCP - General Family Medicine 05/08/24 documented as of this encounter
--- OUTSIDE RECORDS SUMMARY | 2024-07-01 14:42 | External Medical Summary | Summary of Care ---
Author Name Unknown Organization [facility] Address [address] [facility] [place] [address] Phone [phone] Care Team Providers Care Yam Curer Name Role Phone Sachi Soni MD Primary [...] MD [address] [place], [place] [address] Anc Hem/Onc [facility] DEPT CLOSED - 09/27/[address] [place] [address] Referral ID Status Reason Start Date Expiration Date V isits Requested Visits Authorized [id number] Authorized 07/23/2022 11/13/2099 999 99 Encounter Details Date Type Department Care Team (Latest Contact Info) Description 05/11/2024 11:00 AM EDT Hem/Onc Treatment Hematology/Oncolog y Treatment, [place] [address] [place] [address] Ritu, Chair 6 Hem Onc Scenery [address] [place] [address] Multiple myeloma not having achieved remission (HCC)*; [...] day. 30 Tab 12/25/2018 Active nystatin (NYSTOP) 985990 UNIT/GM powder Apply topically to affected area [...] 05/23/2024 1:30 PM EDT Office Visit Orthopaedics, [place] [address] [place] [address] Gautam Jasso MD [address] [place] [address] 05/25/2024 11:00 AM EDT Laboratory Laboratory [facility] 200 [facility] [place] [phone] Ritu, Lab [place] 200 [facility] [place] [address] 05/25/2024 12:00 PM EDT Hem/Onc Treatment Hematology/Oncology [address], [address] [address] Ritu, Chair 3 Hem Onc [facility] 200 [facility] [place] [address] 06/01/2024 11:00 AM EDT Laboratory Laboratory [facility] [place] [address] [place] [address] Ritu, Lab [facility] [address] [facility] [place] [address] 06/01/2024 12:00 PM EDT Hem/Onc Treatment Hematology/Oncology Treatment, [address] [address] [place], Chair 7 Hem Onc Scenery [address] [place] [address] 06/08/2024 10:00 AM EDT Laboratory [place] [facility] [address] [place] [address] Ritu, Lab Scenery [address] [place] [address] 06/08/2024 11:00 AM EDT Hem/Onc Treatment Hematology/Oncology Treatment, [place] 200 [place] [address] Ritu, Chair 7 Hem Onc Scenery [address] [place] [address] 06/15/2024 11:00 AM EDT Laboratory Laboratory [facility] [address] [place] [address] Ritu, Lab Scenery [address] [place] [address] 06/15/2024 12:00 PM EDT Hem/Onc Treatment Hematology/Oncology Treatment, [place] 200 [place] [address] Ritu, Chair 6 Hem Onc Scenery [address] [place] [address] 06/22/2024 11:00 AM EDT Laboratory Laboratory [facility] [address] [place] [address] Ritu, Lab Scenery [address] [place] [address] 06/22/2024 12:00 PM EDT Hem/Onc Treatment Hematology/Oncology Treatment, [place] 200 [place] [address] Ritu, Chair 1 Hem Onc Scenery [address] [place] [address] 06/29/2024 11:00 AM EDT Laboratory Laboratory [facility] Ritu [place] [address] [place], [place] [address] Ritu, Lab Scenery [address] [place], [place] [address] 06/29/2024 12:00 PM EDT [facility] 200 [facility], [place] [address] Ritu, Chair 10 Hem Onc Scenery [address] [place], [place] [address] 07/06/2024 11:10 AM EDT Laboratory Laboratory [facility] Ritu [place] [address] [place], [place] [address] Ritu, Lab Scenery [address] [place], [place] [address] 07/06/2024 12:30 PM EDT [facility] 200 [facility], [place] [address] Ritu, Chair 4 Hem Onc Scenery [address] [place], [place] [address] 07/13/2024 11:00 AM EDT Laboratory Laboratory [facility] Ritu [place] [address] [place], [place] [address] Ritu, Lab Scenery [address] [place], [place] [address] 07/13/2024 11:30 AM EDT Office Visit Hematology/Oncology [facility] Ritu [place] [address] [place], [place] [address] Mariana Florez CR[facility] [address] [facility] [place] [address] 07/13/2024 12:00 PM EDT Hem/Onc Treatment Hematology/Oncology Treatment, [place] [address] Health Maintenance Due Date Last [...] this encounter Medical Devices Implanted Type Area Icing Maker Device Identifier Shelf Expiration Date Model / Serial / Lot Screw Elbow Humeral Total - [id number] Implanted:Qty: 1 on 12/23/2018 by Gautam [place]asso MD [place] [facility] [place]: Upper Arm [employer] 09/13/202700-090 / / [id number] Deisi Nexel Total Elbow Implanted:Qty: 1 on 12/23/2018 by Gautam Jasso MD [place] [facility] [place]: Upper Arm 04/13/2023-5 / / [id number] Cement Antibiotic Bone - [id number] Implanted:Qty: 1 on 12/23/2018 by Gautam Jasso MD [place] [facility] [place] [facility] [place]: Upper Arm RENY : ORTHOPAEDICS 05/13/2020 6197-9-010 / / [id number] Cement Antibiotic Bone - [id number] Implanted:Qty: 1 on 12/23/2018 by Gautam Jasso MD [place] [facility] [place]: Upper Arm RENY : ORTHOPAEDICS 05/13/2020 6197-9-010 / / [id number] Stem Compr Srs Mod [id number] - [id number] Implanted:Qty: 1 on 12/23/2018 by Gautam Jasso MD [place] [facility] [place]: Upper Arm BIOMET : TRAUMA 01/28/2027 [id number] / / [id number] Edisi Nexel Total Elbow Ulnar Component Implanted:Qty: 1 on 12/23/2018 by aGutam Jasso MD [place] [facility] [place]: Upper Arm 07/14/2025 00-8400-025 -07 / / [id number] Comprehensive Srs/Nexel Distal Body Implanted:Qty: 1 on 12/23/2018 by Gautam Jasso MD [place] [facility] [place]: Upper Arm 03/03/2028 [id number] / / [id number] Valve Ricky 3 Ultra 26mm - [id number] Implanted:Qty: 1 on 05/27/2022 by Jesús Weber MD at [place] [place] [facility] [place] [facility] [place] [employer] [id number] 03/17/2023 [id number] / / Port Implant W/8f Poly Cath - [id number] Implanted:Qty: 1 on 12/29/2022 by Sudhir Lovett DO at OR [facility] Right: Chest CR BARD : PERIPHERAL VASCULAR [id number] 02/12/2024 [id number] / / [id number] documented as of this encounter Visit Diagnoses [...] Documents on File Type Date Recorded 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 Yes, not currently available * Full Code Date Activated Date Inactivated Comments 11/21/2018 8:53 AM 11/21/2018 2:27 PM This order ref lects the patients wishes and were consensually agreed upon. Care Teams Yam Curer Relationship Specialty Start Date End Date Sahci Soni MD [address] [place] [address] PCP - General Family Medicine 05/08/24 documented as of this encounter
--- OUTSIDE RECORDS SUMMARY | 2024-07-01 14:42 | External Medical Summary ---
Author Name Unknown Address Unknown Organization K01:LAB[facility]ATORY [facility] - [address] [place] [address] Laboratory Report Ordering Provider Test Date Status ALONDRAWOOD 05/16/2024 15:29:00 Final Observation Date Value Abnormality Reference (Units ) Status Phosphate 05/16/2024 15:29:00 2.8 2.5-4.8 (m g/dL) Final Performing Location [facility] - [address] [place] [address]
--- OUTSIDE RECORDS SUMMARY | 2024-07-01 14:42 | External Medical Summary | Summary of Care ---
Author Name Unknown Organization [facility] Address [address] [place] [address] Phone [phone] Care Team Providers Care Male Infertility Specialist Name Role Phone Sachi Soni MD Primary Care Provider [phone] Reason for Visit * Reason Onset Date Comments Appointment 05/18/2024 gautam Encounter Details Date Type Department Care Team (Late st Contact Info) Description 05/18/2024 Telephone Hematology/Oncology Treatment, [place] [address] [place] [address] Services, Scheduling [address] [place] [address] Appointment (gautam) Allergies Active Allergy Reactions Criticality [...] day. 30 Tab 12/25/2018 Active nystatin (NYSTOP) 082984 UNIT/GM powder Apply topically to affected area [...] the jun apts The daughter was asking thou about 06/15 if she is suppose to [...] had the xray completed last week at [facility] of her arm, would like the xray schedule to be cancelled at this time. She has a follow up scheduledwith Dr. Jasso to review this on 05/23. Daughter requesting that future treatment appointments be scheduled so that she can coordinate scheduling. Scheduling- please schedule patient for the following appointments on the following dates: 06/22 , 06/29 , 07/06 , 07/13 - Labs "CBCD,CMP" 1 hour prior to treatment @ [facility] - 2 hour treatment "Cytoxan" (Alejandro) * Telephone Encounter - Lilli Galarza OSA - 05/18/2024 10:32 AM EDT Meghana -daughter -[phone] states mom already had labwork and xray [...] Team (Late st Contact Info) Description 05/18/2024 12:00 PM EDT Hem/Onc Treatment Hematology/Oncology [address], [address] [phone] Ritu, Chair 2 Hem Onc Scenery [address] [facility] [place] [address] 05/23/2024 1:30 PM EDT Office Visit Orthopaedics, [place] [address] [place] [address] Gautam Jasso MD [address] [place] [address] 05/25/2024 11:00 AM EDT Laboratory Laboratory [facility] Ritu [place] [address] [place] [phone] Ritu, Lab [facility] [address] [facility] [place] [address] 05/25/2024 12:00 PM EDT Hem/Onc Treatment [facility]ology[facility], [place] [facility] [phone] Ritu, Chair 3 Hem Onc Scenery [address] [place] [address] 06/01/2024 11:00 AM EDT Laboratory Laboratory [facility] Ritu [place] [address] [place] [address] Ritu, Lab Scenery [address] [place] [address] 06/01/2024 12:00 PM EDT Hem/Onc Treatment Hematology/Oncology Treatment, [place] 200 [place] [address] Ritu, Chair 7 Hem Onc Scenery [address] [place] [address] 06/08/2024 10:00 AM EDT Laboratory Laboratory [address] [address] [place] [address] Ritu, Lab Scenery [address] [place] [address] 06/08/2024 11:00 AM EDT Hem/Onc Treatment Hematology/Oncology Treatment, [place] 200 [place] [address] Ritu, Chair 7 Hem Onc Scenery [address] [place] [address] 06/22/2024 11:00 AM EDT Laboratory Laboratory [facility] [place] [address] [place] [address] Ritu, Lab Scenery [address] [place] [address] 06/22/2024 12:00 PM EDT Hem/Onc Treatment Hematology/Oncology Treatment, [place] 200 [place] [address] Ritu, Chair 1 Hem Onc Scenery [address] [place] [address] 06/29/2024 11:00 AM EDT Laboratory Laboratory [address]ery [place] [address] [place] [address] Ritu, Lab Scenery [address] [place] [address] 06/29/2024 12:00 PM EDT Hem/Onc Treatment Hematology/Oncology Treatment, [place] 200 [facility], [place] [address] Ritu, Chair 10 Hem Onc Scenery [address] [place], [place] [address] 07/06/2024 11:10 AM EDT Laboratory Laboratory [facility] [place] [address] [place], [place] [address] Ritu, Lab Scenery [address] [place], [place] [address] 07/06/2024 12:30 PM EDT Hem/Onc Treatment Hematology/Oncology Treatment, [place] 200 [facility], [place] [address] Ritu, Chair 4 Hem Onc Scenery [address] [facility] [place], [place] [address] 07/13/2024 11:00 AM EDT Laboratory Laboratory [facility] [place] [address] [place], [place] [phone] Ritu, Lab [facility] [place] [address] [facility] [place], [place] [address] 07/13/2024 11:30 AM EDT Office Visit Hematology/Oncology [facility] [place] [address] [facility] [place], [place] [phone] [place] Florez CRNP [address] [facility] [place] [address] 07/13/2024 12:00 PM EDT Hem/Onc Treatment Hematology/Oncology Treatment[address], [place] [phone] Pending Results Name Type Priority Associated Diagnoses Date /Time [facility]OSPHORUS Lab STAT Multiple myeloma not having achieved remission (HCC) 05/16/2024 3:29 PM EDT Scheduled Orders Name Type Priority Associated Diagnoses Orde r Schedule PHOS[facility]OR[facility] Lab STAT Multiple myeloma not having achieved remission (HCC) Expected: 05/18/2024, Expires: 05/18/2025 Health Maintenance Due Date Last Done Comments [...] this encounter Medical Devices Implanted Type Area Vmware Systems Administrator Device Identifier Shelf Expiration Date Model / Serial / Lot Screw Elbow Humeral Total - [id number] Implanted:Qty: 1 on 12/23/2018 [place]am [place] [facility] [place] Arm [employer] 09/13/202700-090 - / / [id number] Deisi Nexel Total Elbow Implanted:Qty: 1 on 12/23/2018 by Gautam [place]asso [place] [facility] [place]: Upper Arm 04/13/2023-5 - / / [id number] Cement Antibiotic Bone - [id number] Implanted:Qty: 1 on 12/23/2018 by Gautam Jasso [place] [facility] [place]: Upper Arm RENY : ORTHOPAEDICS 05/13/2020 6197-9-010 / / [id number] Cement Antibiotic Bone - [id number] Implanted:Qty: 1 on 12/23/2018 by Gautam Jasso [place] [facility] [place]: Upper Arm RENY : ORTHOPAEDICS 05/13/2020 6197-9-010 / / [id number] Stem Compr Srs Mod [id number] - [id number] Implanted:Qty: 1 on 12/23/2018 by Gautam Jasso [place] [facility] [place]: Upper Arm BIOMET : TRAUMA 01/28/2027 [id number] / / [id number] Deisi Nexel Total Elbow Ulnar Component Implanted:Qty: 1 on 12/23/2018 by Gautam Jasso MD [place] [facility] [place]: Upper Arm 07/14/2025 00-8400-025 -07 / / [id number] Comprehensive Srs/Nexel Distal Body Implanted:Qty: 1 on 12/23/2018 by Gautam Jasso MD [place] [facility] [place]: Upper Arm 03/03/2028 [id number] / / [id number] Valve Ricky 3 Ultra 26mm - [id number] Implanted:Qty: 1 on 05/27/2022 by Jesús Weber MD at [facility] [place] [employer] [id number] 03/17/2023 [id number] / / Port Implant W/8f Poly Cath - [id number] Implanted:Qty: 1 on 12/29/2022 by Sudhir Lovett DO at OR [facility] Right: Chest CR BARD : PERIPHERAL VASCULAR [id number] 02/12/2024 [id number] / / [id number] documented as of this encounter Visit Diagnoses Diagnosis Multiple myeloma not having achieved remission (HCC)- Primary Multiple myeloma, without mention of having achieved remission documented in this encounter Advance Directives Documents on File Type Date Recorded 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 Yes, not currently available * Full Code Date Activated Date Inactivated Comments 11/21/2018 8:53 AM 11/21/2018 2:27 PM This order ref lects the patients wishes and were consensually agreed upon. Care Teams Male Infertility Specialist Relationship Specialty Start Date End Date Sachi Soni MD [address] [place] [facility] [place] [address] PCP - General Family Medicine 05/08/24 documented as of this encounter
--- OUTSIDE RECORDS SUMMARY | 2024-07-01 14:42 | External Medical Summary | Summary of Care ---
Author Name Unknown Organization [facility] Address [address] [facility] [place] [address] Phone [phone] Care Team Providers Care Tax Services Intern Name Role Phone Sachi Soni MD Primary Care Provider [phone] Encounter Details Date Type Department Care Team (Late st Contact Info) Description 05/11/2024 Orders Only Hematology/Oncology [place] [facility] [place] [address] Jroge Allen MD 200 [facility] [place] [address] Multiple myeloma not having achieved remission (HCC)* [...] day. 30 Tab 12/25/2018 Active nystatin (NYSTOP) 339732 UNIT/GM powder Apply topically to affected area [...] Progress Notes * Jorge Allen MD - 05/11/2024 12:58 PM EDT For the last few weeks she complains of increasing pain in the right elbow with restricted movements. Would like to have plain xray of right elbow for further evaluation. documented in this encounter Miscellaneous Notes * Addendum Note - Merrick Gross RN - 05/18/2024 11:13 AM EDTAddended by: MERRICK GROSS on: 05/18/2024 11:13 AM Modules accepted: Orders documented in this encounter Plan of Treatment Upcoming Encounters Date Type Department Care Team (Late st Contact Info) Description 05/18/2024 12:00 PM EDT Hem/Onc Treatment Hematology/Oncology Treatment, [place] [address] [place] [address] Ritu, Chair 2 Hem [facility]c [facility] [address] 05/23/2024 1:30 PM EDT Office Visit Orthopaedics, [place] [address] [facility] [place] [id number] Gautam Jasso MD [address] [place] [address] 05/25/2024 11:00 AM EDT Laboratory Laboratory [facility] [address] [place], [place] [address] Ritu, Lab Scenery [address] [place] [address] 05/25/2024 12:00 PM EDT Hem[facility] 200 [place] [address] Ritu, Chair 3 Hem Onc Scenery [address] [place], [place] [address] 06/01/2024 11:00 AM EDT Laboratory Laboratory [facility] [address] [place], [place] [address] Ritu, Lab Scenery [address] [place], [place] [address] 06/01/2024 12:00 PM EDT Hem/Onc Treatment Hematology/Oncology Treatment, [place] 200 [facility], [place] [address] Ritu, Chair 7 Hem Onc Scenery [address] [place] [address] 06/08/2024 10:00 AM EDT Laboratory Laboratory [facility] [place] [address] [place] [address] Ritu, Lab Scenery [address] [place] [address] 06/08/2024 11:00 AM EDT Hem/Onc Treatment Hematology/Oncology Treatment, [place] 200 [place] [address] Ritu, Chair 7 Hem Onc Scenery [address] [place] [address] 07/13/2024 11:00 AM EDT Laboratory Laboratory [facility] [address] [place] [address] [place], [facility] 200 [facility] [place] [address] 07/13/2024 11:30 AM EDT Office Visit Hematology/Oncology [facility] [place] [address] [place] [address] Mariana Florez CRNP [address] [facility] [place] [address] Health Maintenance Due Date Last Done Comments [...] this encounter Medical Devices Implanted Type Area Core Manager Device Identifier Shelf Expiration Date Model / Serial / Lot Screw Elbow Humeral Total - [id number] Implanted:Qty: 1 on 12/23/2018 [place] [facility] [place] Upper Arm [employer] 09/13/20278400-090 -00 / / [id number] Deisi Nexel Total Elbow Implanted:Qty: 1 on 12/23/2018 by Gautam Jasso [place] [facility] [place] Upper Arm 04/13/202300-095 -00 / / [id number] Cement Antibiotic Bone - [id number] Implanted:Qty: 1 on 12/23/2018 by Gautam Jasso MD [place] [facility] [place] Upper Arm RENY : ORTHOPAEDICS 05/13/2020 6197-9-010 / / [id number] Cement Antibiotic Bone - [id number] Implanted:Qty: 1 on 12/23/2018 by Gautam Jasso MD [place] [facility] [place] Upper Arm RENY : ORTHOPAEDICS 05/13/2020 6197-9-010 / / [id number] Stem Compr Srs Mod 0x044yd - [id number] Implanted:Qty: 1 on 12/23/2018 by Gautam Jasso MD [place] [facility] [place]: Upper Arm BIOMET : TRAUMA 01/28/2027 [id number] / / [id number] Deisi Nexel Total Elbow Ulnar Component Implanted:Qty: 1 on 12/23/2018 by Gautam Jasso MD [place] [facility] [place]: Upper Arm 07/14/20258400-025 -07 / / [id number] Comprehensive Srs/Nexel Distal Body Implanted:Qty: 1 on 12/23/2018 by Gautam Jasso MD [place] [facility] [place]: Upper Arm 03/03/2028 [id number] / / [id number] Valve Ricky 3 Ultra 26mm - [id number] Implanted:Qty: 1 on 05/27/2022 by Jesús Weber MD at [facility] [place] [place] [employer] [id number] 03/17/2023 [id number] / / Port Implant W/8f Poly Cath - [id number] Implanted:Qty: 1 on 12/29/2022 by Sudhir Lovett DO at OR [facility] Right: Chest CR BARD : PERIPHERAL VASCULAR [id number] 02/12/2024 [id number] / / [id number] documented as of this encounter Visit Diagnoses Diagnosis Multiple myeloma not having achieved remission (HCC)- Primary Multiple myeloma, without mention of having achieved remission documented in this encounter Advance Directives Documents on File Type Date Recorded 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 Yes, not currently available * Full Code Date Activated Date Inactivated Comments 11/21/2018 8:53 AM 11/21/2018 2:27 PM This order ref lects the patients wishes and were consensually agreed upon. Care Teams Tax Services Intern Relationship Specialty Start Date End Date Sachi Soni MD [address] [place] [address] PCP - General Family Medicine 05/08/24 documented as of this encounter
--- OUTSIDE RECORDS SUMMARY | 2024-07-01 14:42 | External Medical Summary ---
Author Name Unknown Address Unknown Organization K01:[facility] [address] [facility] [place] [address] Laboratory Report Ordering Provider Test Date Status WOOD CANTU 05/16/2024 15:40:00 Final Observation Date Value Abnormality Reference (Units ) Status SYNC LEUKOCYTES IN BLOOD BY AUTOMATED COUNT 05/16/2024 15:40:00 2.37 Below low normal 4.00-10.80 (K/uL) Final Neutrophils/100 leukocytes in Blood by Manual count 05/16/2024 15:40:00 79.0 Above high normal 40.0-75.0 (%) Final Lymphocytes/100 leukocytes in Blood by Manual count 05/16/2024 15:40:00 2.0 Below low normal 18.0-42.0 (%) Final Monocytes/100 leukocytes in Blood by Manual count 05/16/2024 15:40:00 11.0 1.0-11.0 (%) Final Eosinophils/100 leukocytes in Blood by Manual count 05/16/2024 15:40:00 4.0 0.0-6.0 (%) Final Basophils/100 leukocytes in Blood by Manual count 05/16/2024 15:40:00 2.0 0.0-2.0 (%) Final Myelocytes/100 leukocytes in Blood by Manual count 05/16/2024 15:40:00 2.0 Above high normal <=0.0 (%) Final Neutrophils [#/volume] in Blood by Manual count 05/16/2024 15:40:00 1.87 1.80-7.70 (K/uL) Final Lymphocytes [#/volume] in Blood by Manual count 05/16/2024 15:40:00 0.05 Below low normal 1.00-4.80 (K/uL) Final Monocytes [#/volume] in Blood by Manual count 05/16/2024 15:40:00 0.26 0.00-1.10 (K/uL) Final Eosinophils [#/volume] in Blood by Manual count 05/16/2024 15:40:00 0.09 0.00-0.70 (K/uL) Final Basophils [#/volume] in Blood by Manual count 05/16/2024 15:40:00 0.05 0.00-0.20 (K/uL) Final Myelocytes [#/volume] in Blood by Manual count 05/16/2024 15:40:00 0.05 Above high normal <=0.00 (K/uL) Final Ovalocytes [Presence] in Blood by Light microscopy 05/16/2024 15:40:00 Moderate Abnormal None Seen Final Schistocytes 05/16/2024 15:40:00 Moderate Abnormal None Seen Final Performing Location LAB[facility]ATORY [facility] [place] [facility] [address] [facility] [address]
--- OUTSIDE RECORDS SUMMARY | 2024-07-01 14:42 | External Medical Summary | Summary of Care ---
Author Name Unknown Organization [facility] Address [address] [facility] [address] Phone [phone] Care Team Providers Care Embedded Systems Developer Name Role Phone Sachi Soni MD Primary Care Provider [phone] Encounter Details Date Type Department Care Team [...] day. 30 Tab 12/25/2018 Active nystatin (NYSTOP) 455369 UNIT/GM powder Apply topically to affected area [...] 11:00 AM EDT Laboratory Laboratory [place] [address] [place] [address] [address] [place] [address] 05/18/2024 11:10 AM EDT Imaging Radiology [facility] Ritu [place] [address] [address] [address] 05/18/2024 12:00 PM EDT Hem/Onc Treatment Hematology/Oncology [address] [place] [address] Ritu, Chair 2 Hem Onc [place] [address] [address] 05/23/2024 1:30 PM EDT Office Visit Orthopaedics, [place] [address] [place] [address] Gautam Jasso MD [address] [place] [address] 05/25/2024 11:00 AM EDT Laboratory Laboratory [place] [address] [address] Ritu Lab Ward [facility] [place] [address] 05/25/2024 12:00 PM EDT Hem/Onc Treatment Hematology/Oncology Treatment, [address] [place] [address] 06/01/2024 11:00 AM EDT Laboratory Laboratory [facility] [place] [address] [place], [place] [address] Ritu, Lab Scenery [address] [place], [place] [address] 06/01/2024 12:00 PM EDT Hem/Onc Treatment Hematology/Oncology Treatment, [place] 200 [facility], [place] [address] Ritu, Chair 7 Hem Onc Scenery [address] [place], [place] [address] 06/08/2024 10:00 AM EDT Laboratory Laboratory [facility] [place] [address] [place], [place] [address] Ritu, Lab Scenery [address] [facility] [place], [place] [address] 06/08/2024 11:00 AM EDT Hem/Onc Treatment Hematology/Oncology Treatment, [place] 200 [facility], [place] [address] Ritu, Chair 7 Hem Onc Scenery [address] [place], [place] [address] 07/13/2024 11:00 AM EDT Laboratory Laboratory [facility] Ritu [place] [address] [place], [place] [address] Ritu, Lab Scenery [address] [facility] [place], [place] [address] 07/13/2024 11:30 AM EDT Office Visit Hematology/Oncology [facility] Ritu [place] [address] [place], [place] [address] [place]iana Florez CRNP [address] [place] [address] Health Maintenance Due Date Last Done Comments [...] this encounter Medical Devices Implanted Type Area Aircraft Instrument Engineer Device Identifier Shelf Expiration Date Model / Serial / Lot Screw Elbow Humeral Total - [id number] Implanted:Qty: 1 on 12/23/2018 by Gautam Jasso MD at [place] [facility] [place] Right: Upper Arm [employer] 09/13/20278400-090 -00 / / [id number] Deisi Nexel Total Elbow Implanted:Qty: 1 on 12/23/2018 by Gautam Jasso MD at [place] [facility] [place] Right: Upper Arm 04/13/20238400-095 -00 / / [id number] Cement Antibiotic Bone - [id number] Implanted:Qty: 1 on 12/23/2018 by Gautam Jasso MD at [place] [facility] [place] Right: Upper Arm RENY : ORTHOPAEDICS 05/13/2020 6197-9-010 / / [id number] Cement Antibiotic Bone - [id number] Implanted:Qty: 1 on 12/23/2018 by Gautam Jasso MD at [place] [facility] [place] Right: Upper Arm RENY : ORTHOPAEDICS 05/13/2020 6197-9-010 / / [id number] Stem Compr Srs Mod 5c806ap - [id number] Implanted:Qty: 1 on 12/23/2018 by Gauatm Jasso MD at [place] [facility] [place] Right: Upper Arm BIOMET : TRAUMA 01/28/2027 [id number] / / [id number] Deisi Nexel Total Elbow Ulnar Component Implanted:Qty: 1 on 12/23/2018 by Gautam Jasso MD at [place] [facility] [place] Right: Upper Arm 07/14/2025 00-8400-025 -07 / / [id number] Comprehensive Srs/Nexel Distal Body Implanted:Qty: 1 on 12/23/2018 by Gautam Jasso MD at [place] [facility] [place] Right: Upper Arm 03/03/2028 [id number] / / [id number] Valve Ricky 3 Ultra 26mm - [id number] Implanted:Qty: 1 on 05/27/2022 by Jesús Weber MD at CARDIAC [facility]S [facility] [place] [employer] [id number] 03/17/2023 [id number] / / Port Implant W/8f Poly Cath - [id number] Implanted:Qty: 1 on 12/29/2022 by Sudhir Lovett DO at OR [facility] Right: Chest CR BARD : PERIPHERAL VASCULAR [id number] 02/12/2024 [id number] / / [id number] documented as of this encounter Advance Directives Documents on File Type Date Recorded Patient Grocery Store Associate Expl anation Power of Produce Team Member 12/12/2018 8:46 AM Vipin viveros Power of Produce Team Member Power of Produce Team Member 12/12/2018 8:45 AM Zuleyma ferguson Power of Produce Team Member * Full Code (Latest Code Status on [...] patient have Health Care Power of Produce Team Member? Yes, not currently available * Full Code Date Activated Date Inactivated Comments 11/21/2018 8:53 AM 11/21/2018 2:27 PM This order ref lects the patients wishes and were consensually agreed upon. Care Teams Embedded Systems Developer Relationship Specialty Start Date End Date Sachi Soni MD [address] [facility] [place] [address] PCP - General Family Medicine 05/08/24 documented as of this encounter
--- OUTSIDE RECORDS SUMMARY | 2024-07-01 14:42 | External Medical Summary | Summary of Care ---
Author Name Unknown Organization [facility] Address [address] [place] [address] Phone [phone] Care Team Providers Care Fiberglass Technician Name Role Phone Sachi Soni MD Primary Care Provider Reason for Visit * Reason Onset Date Comments Appointment 05/18/2024 gautam Encounter Details Date Type Department Care Team (Late st Contact Info) Description 05/18/2024 Telephone Hematology/Oncology Treatment, [place] [address] [place] [address] Services, Scheduling [address] [place] [address] Appointment (gautam) Allergies Active Allergy Reactions Criticality [...] day. 30 Tab 12/25/2018 Active nystatin (NYSTOP) 861142 UNIT/GM powder Apply topically to affected area [...] Encounter - Katie Craft OSA - 05/18/2024 3:37 PM EDT Added * Telephone Encounter - Merrick Gross RN [...] 10:58 AM EDT Reviewed labs with Dr. Aldo orr for treatment today. No phosphorus was completed on 05/16/24. Added this to her lab work as patient is due for Xgeva today. Called patients daughter back. She states patient already had the xray completed last week at [facility] of her arm, would like the xray [...] - 05/18/2024 10:32 AM EDT Meghana -daughter -[phone] states mom already had labwork and xray [...] 05/23/2024 1:30 PM EDT Office Visit Orthopaedics, [place] [address] [place] [address] Gautam Jasso MD [address] [place] [address] 05/25/2024 11:00 AM EDT Laboratory Laboratory Ward [place] [address] [place] [phone] Matt [place] [address] [facility] [place] [address] 05/25/2024 12:00 PM EDT Hem/Onc Treatment Hematology/Oncology Treatment, [place] [address] [facility] [place] [phone] Ritu, Chair 3 Hem Onc Scenery [address] [place] [address] 06/01/2024 11:00 AM EDT Laboratory Laboratory [facility] [address] [place] [address] Ritu, Lab Scenery [address] [place] [address] 06/01/2024 12:00 PM EDT Hem/Onc Treatment Hematology/Oncology Treatment, [place] 200 [facility] [address] Ritu, Chair 7 Hem Onc Scenery [address] [place] [address] 06/08/2024 10:00 AM EDT Laboratory Laboratory [facility] [place] [address] [place] [address] Ritu, Lab Scenery [address] [place] [address] 06/08/2024 11:00 AM EDT Hem/Onc Treatment Hematology/Oncology Treatment, [place] 200 [facility] [address] Ritu, Chair 7 Hem Onc Scenery [address] [place] [address] 06/15/2024 11:00 AM EDT Laboratory Laboratory [facility] [place] [address] [place] [address] Ritu, Lab Scenery [address] [place] [address] 06/15/2024 12:00 PM EDT Hem/Onc Treatment Hematology/Oncology Treatment, [place] 200 [facility] [address] Ritu, Chair 6 Hem Onc Scenery [address] [place] [address] 06/22/2024 11:00 AM EDT Laboratory Laboratory [facility] [address] [place] [address] Ritu, Lab Scenery [address] [place] [address] 06/22/2024 12:00 PM EDT Hem[facility] 200 [facility] [address] Ritu, Chair 1 Hem Onc Scenery [address] [place] [address] 06/29/2024 11:00 AM EDT Laboratory Laboratory [facility] [address] [place] [address] Ritu, Lab Scenery [address] [place] [address] 06/29/2024 12:00 PM EDT Hem/Onc [facility] 200 [facility] [address] Ritu, Chair 10 Hem Onc Scenery [address] [place] [address] 07/06/2024 11:10 AM EDT Laboratory Laboratory [facility] [place] [address] [place] [address] Ritu, Lab Scenery [address] [place] [address] 07/06/2024 12:30 PM EDT Hem/Onc Treatment Hematology/Oncology Treatment, [place] 200 [facility] [address] Ritu, Chair 4 Hem Onc Scenery [address] [place] [address] 07/13/2024 11:00 AM EDT Laboratory Laboratory [facility] [address] [place] [address] Matt Chaney [facility] 200 [facility] [place] [address] 07/13/2024 11:30 AM EDT Office Visit Hematology/Oncology [facility] 200 [facility] [place] [address] Mariana Florez CRNP [address] [facility] [place] [address] 07/13/2024 12:00 PM EDT Hem/Onc Treatment Hematology/Oncology Treatment, [place] 200 [facility] [place] [address] Health Maintenance Due Date Last Done [...] this encounter Medical Devices Implanted Type Area Die Trimmer Device Identifier Shelf Expiration Date Model / Serial / Lot Screw Elbow Humeral Total - [id number] Implanted:Qty: 1 on 12/23/2018 [place]am [place] [facility] [place] Upper Arm [employer] 09/13/2027-090 - / / [id number] Deisi Nexel Total Elbow Implanted:Qty: 1 on 12/23/2018 by Gautam [place] [facility] [place]: Upper Arm 04/13/2023-5 - / / [id number] Cement Antibiotic Bone - [id number] Implanted:Qty: 1 on 12/23/2018 by Gautam [place] [facility] [place]: Upper Arm RENY : ORTHOPAEDICS 05/13/2020 6197-9-010 / / [id number] Cement Antibiotic Bone - [id number] Implanted:Qty: 1 on 12/23/2018 by Gautam Jasso [place] [facility] [place]: Upper Arm RENY : ORTHOPAEDICS 05/13/2020 6197-9-010 / / [id number] Stem Compr Srs Mod [id number] - [id number] Implanted:Qty: 1 on 12/23/2018 by Gautam J[place] [facility] [place]: Upper Arm BIOMET : TRAUMA 01/28/2027 [id number] / / [id number] Deisi Nexel Total Elbow Ulnar Component Implanted:Qty: 1 on 12/23/2018 by Gautam J[place] [facility] [place]: Upper Arm 07/14/202500-025 -07 / / [id number] Comprehensive Srs/Nexel Distal Body Implanted:Qty: 1 on 12/23/2018 by Gautam Jasso [place] [facility] [place]: Upper Arm 03/03/2028 [id number] / / [id number] Valve Ricky 3 Ultra 26mm - [id number] Implanted:Qty: 1 on 05/27/2022 by Jesús Weber MD [place] [facility] [place] [facility] [place] [employer] [id number] 03/17/2023 [id number] / / Port Implant W/8f Poly Cath - [id number] Implanted:Qty: 1 on 12/29/2022 by Sudhir Lovett DO at OR [facility] Right: Chest CR BARD : PERIPHERAL VASCULAR [id number] 02/12/2024 [id number] / / [id number] documented as of this encounter Results * PHOSPHORUS (05/16/2024 3:29 PM EDT) Phosphorus 2.8 2.5 - 4.8 mg/dL 05/18/2024 11:46 AM EDT LAB[facility]ATORY [facility] Blood Venous blood specimen / Unknown Venipuncture / Unknown 05/16/2024 3:29 PM EDT 05/16/2024 3:30 PM EDT Jorge Allen MD LAB BLOOD ORDERABLES [facility] [address] [place] [address] documented in this encounter Visit Diagnoses Diagnosis Multiple myeloma not having achieved remission (HCC)- Primary Multiple myeloma, without mention of having achieved remission documented in this encounter Advance Directives Documents on File Type Date Recorded Patient Loaf Counter Expl anation Power of Chief Embalmer 12/12/2018 8:46 AM Healpamela hcare Power of Chief Embalmer Power of Chief Embalmer 12/12/2018 8:45 AM Zuleyma ferguson Power of Chief Embalmer * Full Code (Latest Code Status on [...] patient have Health Care Power of Chief Embalmer? Yes, not currently available * Full Code Date Activated Date Inactivated Comments 11/21/2018 8:53 AM 11/21/2018 2:27 PM This order ref lects the patients wishes and were consensually agreed upon. Care Teams Fiberglass Technician Relationship Specialty Start Date End Date Sachi Soni MD [address] [place] [facility] [place] [address] PCP - General Family Medicine 05/08/24 documented as of this encounter
--- OUTSIDE RECORDS SUMMARY | 2024-07-01 14:42 | External Medical Summary | Summary of Care ---
Author Name Unknown Organization [facility] Address [address] [facility] [address] Phone [phone] Care Team Providers Care Heeler Name Role Phone Sachi Soni MD Primary [...] day. 30 Tab 12/25/2018 Active nystatin (NYSTOP) 554072 UNIT/GM powder Apply topically to affected area [...] 11:00 AM EDT Laboratory Laboratory [address] [place] [address] [phone] [place] [address] 05/18/2024 11:10 AM EDT Imaging Radiology [facility] Ritu [place] [address] [address] 05/18/2024 12:00 PM EDT Hem/Onc Treatment Hematology/Oncology Treatment[address] [place] [address] Ritu, Chair 2 Hem Onc [place] [address] [address] [address] 05/23/2024 1:30 PM EDT Office Visit Orthopaedics, [place] [address] [place] [address] Gautam Jasso MD [address] [place] [address] 05/25/2024 11:00 AM EDT Laboratory Laboratory [address] [place] [address] [address] Ritu Lab Ward [facility] [place] [address] 05/25/2024 12:00 PM EDT Hem/Onc Treatment Hematology/Oncology Treatment, [address] [place] [address] 06/01/2024 11:00 AM EDT Laboratory Laboratory [facility] [place] [address] [place], [place] [address] Ritu, Lab Scenery [address] [place], [place] [address] 06/01/2024 12:00 PM EDT Hem/Onc Treatment Hematology/Oncology Treatment, [place] [address] [facility], [place] [address] Ritu, Chair 7 Hem Onc Scenery [address] [place], [place] [address] 06/08/2024 10:00 AM EDT Laboratory Laboratory [facility] [place] [address] [place], [place] [address] Ritu, Lab Scenery [address] [facility] [place], [place] [address] 06/08/2024 11:00 AM EDT Hem/Onc Treatment Hematology/Oncology Treatment, [place] [address] [facility], [place] [address] Ritu, Chair 7 Hem Onc Scenery [address] [place], [place] [address] 07/13/2024 11:00 AM EDT Laboratory Laboratory [facility] Ritu [place] [address] [place], [place] [address] Ritu, Lab Scenery [address] [facility] [place], [place] [address] 07/13/2024 11:30 AM EDT Office Visit Hematology/Oncology [facility] Ritu [place] [address] [place], [place] [phone] Mariana Florez CRNP [address] [place] [address] Health Maintenance Due Date Last Done Comments [...] this encounter Medical Devices Implanted Type Area Legal Referee Device Identifier Shelf Expiration Date Model / Serial / Lot Screw Elbow Humeral Total - [id number] Implanted:Qty: 1 on 12/23/2018 by Gautam Jasso MD at OR [facility] Right: Upper Arm [employer] 09/13/20278400-090 -00 / / [id number] Deisi Nexel Total Elbow Implanted:Qty: 1 on 12/23/2018 by Gautam Jasso MD at OR [facility] Right: Upper Arm 04/13/20238400-095 -00 / / [id number] Cement Antibiotic Bone - [id number] Implanted:Qty: 1 on 12/23/2018 by Gautam Jasso MD at OR [facility] Right: Upper Arm RENY : ORTHOPAEDICS 05/13/2020 6197-9-010 / / [id number] Cement Antibiotic Bone - [id number] Implanted:Qty: 1 on 12/23/2018 by Gautam Jasso MD at OR [facility] Right: Upper Arm RENY : ORTHOPAEDICS 05/13/2020 6197-9-010 / / [id number] Stem Compr Srs Mod [id number] - [id number] Implanted:Qty: 1 on 12/23/2018 by Gautam Jasso MD at OR [facility] Right: Upper Arm BIOMET : TRAUMA 01/28/2027 [id number] / / [id number] Deisi Nexel Total Elbow Ulnar Component Implanted:Qty: 1 on 12/23/2018 by Gautam Jasso MD at OR [facility] Right: Upper Arm 07/14/2025 00-8400-025 -07 / / [id number] Comprehensive Srs/Nexel Distal Body Implanted:Qty: 1 on 12/23/2018 by Gautam Jasso MD at OR [facility] Right: Upper Arm 03/03/2028 [id number] / / [id number] Valve Ricky 3 Ultra 26mm - [id number] Implanted:Qty: 1 on 05/27/2022 by Jesús Weber MD at CARDIAC LABS [facility] [employer] [id number] 03/17/2023 [id number] / / Port Implant W/8f Poly Cath - [id number] Implanted:Qty: 1 on 12/29/2022 by Sudhir Lovett DO at OR [facility] Right: Chest CR BARD : PERIPHERAL VASCULAR [id number] 02/12/2024 [id number] / / [id number] documented as of this encounter Advance Directives Documents on File Type Date Recorded Patient Public Health Sanitarian Technician Expl anation Power of Optometric Tech 12/12/2018 8:46 AM Vipin viveros Power of Optometric Tech Power of Optometric Tech 12/12/2018 8:45 AM Zuleyma ferguson Power of Optometric Tech * Full Code (Latest Code Status on [...] the patient have Health Care Power of Optometric Tech? Yes, not currently available * Full Code Date Activated Date Inactivated Comments 11/21/2018 8:53 AM 11/21/2018 2:27 PM This order ref lects the patients wishes and were consensually agreed upon. Care Teams Heeler Relationship Specialty Start Date End Date Sachi Soni MD [address] [place] [facility] [place] [address] PCP - General Family Medicine 05/08/24 documented as of this encounter
--- OUTSIDE RECORDS SUMMARY | 2024-07-01 14:42 | External Medical Summary | Summary of Care ---
Author Name Unknown Organization [facility] Address [address] [facility] [address] Phone [phone] Care Team Providers Care Rn Recovery Name Role Phone Sachi Soni MD Primary Care Provider [phone] Encounter Details Date Type Department Care Team [...] day. 30 Tab 12/25/2018 Active nystatin (NYSTOP) 474982 UNIT/GM powder Apply topically to affected area [...] 11:00 AM EDT Laboratory Laboratory [address] [place] [address] [phone] [place] [address] 05/18/2024 11:10 AM EDT Imaging Radiology [facility] Ritu [place] [address] [address] 05/18/2024 12:00 PM EDT Hem/Onc Treatment Hematology/Oncology Treatment[address] [place] [address] Ritu, Chair 2 Hem Onc [place] [address] [address] 05/23/2024 1:30 PM EDT Office Visit Orthopaedics, [place] [address] [place] [address] Gautam Jasso MD [address] [place] [address] 05/25/2024 11:00 AM EDT Laboratory Laboratory [address] [place] [address] [address] Ritu Lab Ward [facility] [place][note 2] [place] [address] [address] 05/25/2024 12:00 PM EDT Hem/Onc Treatment Hematology/Oncology Treatment, [address] [place] [address] 06/01/2024 11:00 AM EDT Laboratory Laboratory [facility] [place] [address] [place], [place] [address] Ritu, Lab Scenery [address] [place], [place] [address] 06/01/2024 12:00 PM EDT Hem/Onc Treatment Hematology/Oncology Treatment, [place] [address] [facility], [place] [address] Ritu, Chair 7 Hem Onc Scenery [address] [place], [place] [address] 06/08/2024 10:00 AM EDT Laboratory Laboratory [facility] [place] [address] [place], [place] [address] Ritu, Lab Scenery [address] [facility] [place], [place] [address] 06/08/2024 11:00 AM EDT Hem/Onc Treatment Hematology/Oncology Treatment, [place] 200 [facility], [place] [address] Ritu, Chair 7 Hem Onc Scenery [address] [place], [place] [address] 07/13/2024 11:00 AM EDT Laboratory Laboratory [facility] Ritu [place] [address] [place], [place] [address] Ritu, Lab Scenery [address] [facility] [place], [place] [address] 07/13/2024 11:30 AM EDT Office Visit Hematology/Oncology [facility] Ritu [place] [address] [place], [place] [address] Mariana Florez CRNP [address] [place] [address] Health Maintenance Due Date Last Done Comments [...] this encounter Medical Devices Implanted Type Area American Indian Policy Specialist Device Identifier Shelf Expiration Date Model / Serial / Lot Screw Elbow Humeral Total - [id number] Implanted:Qty: 1 on 12/23/2018 by Gautam Jasso MD at OR [facility] Right: Upper Arm [employer] 09/13/20278400-090 -00 / / [id number] Deisi Nexel Total Elbow Implanted:Qty: 1 on 12/23/2018 by Gautam Jasso MD at OR [facility] Right: Upper Arm 04/13/20238400-095 -00 / / [id number] Cement Antibiotic Bone - [id number] Implanted:Qty: 1 on 12/23/2018 by Gautam Jasso MD at OR [facility] Right: Upper Arm RENY : ORTHOPAEDICS 05/13/2020 6197-9-010 / / [id number] Cement Antibiotic Bone - [id number] Implanted:Qty: 1 on 12/23/2018 by Gautam Jasso MD at OR [facility] Right: Upper Arm RENY : ORTHOPAEDICS 05/13/2020 6197-9-010 / / [id number] Stem Compr Srs Mod [id number] - [id number] Implanted:Qty: 1 on 12/23/2018 by Gautam Jasso MD at OR [facility] Right: Upper Arm BIOMET : TRAUMA 01/28/2027 [id number] / / [id number] Deisi Nexel Total Elbow Ulnar Component Implanted:Qty: 1 on 12/23/2018 by Gautam Jasso MD at OR [facility] Right: Upper Arm 07/14/2025 00-8400-025 -07 / / [id number] Comprehensive Srs/Nexel Distal Body Implanted:Qty: 1 on 12/23/2018 by Gautam Jasso MD at OR [facility] Right: Upper Arm 03/03/2028 [id number] / / [id number] Valve Ricky 3 Ultra 26mm - [id number] Implanted:Qty: 1 on 05/27/2022 by Jesús Weber MD at CARDIAC LABS [facility] [employer] [id number] 03/17/2023 [id number] / / Port Implant W/8f Poly Cath - [id number] Implanted:Qty: 1 on 12/29/2022 by Sudhir Lovett DO at OR [facility] Right: Chest CR BARD : PERIPHERAL VASCULAR [id number] 02/12/2024 [id number] / / [id number] documented as of this encounter Advance Directives Documents on File Type Date Recorded Patient Principal Systems Engineer Expl anation Power of Zipper Joiner 12/12/2018 8:46 AM Vipin viveros Power of Zipper Joiner Power of Zipper Joiner 12/12/2018 8:45 AM Zuleyma ferguson Power of Zipper Joiner * Full Code (Latest Code Status on [...] the patient have Health Care Power of Zipper Joiner? Yes, not currently available * Full Code Date Activated Date Inactivated Comments 11/21/2018 8:53 AM 11/21/2018 2:27 PM This order ref lects the patients wishes and were consensually agreed upon. Care Teams Rn Recovery Relationship Specialty Start Date End Date Sachi Soni MD [address] [place] [facility] [place] [address] PCP - General Family Medicine 05/08/24 documented as of this encounter
--- OUTSIDE RECORDS SUMMARY | 2024-07-01 14:42 | External Medical Summary | Summary of Care ---
Author Name Unknown Organization [facility] Address [address] [facility] [place] [address] Phone [phone] Care Team Providers Care Car Wrecker Name Role Phone Sachi Soni MD Primary [...] Jorge Allen MD [address] [place] [address] Anc Hem/Onc [facility] DEPT CLOSED - 09/27/23 [address] [place] [address] Referral ID Status Reason Start Date Expiration Date V isits Requested Visits Authorized [id number] Authorized 07/23/2022 11/13/2099 999 99 Encounter Details Date Type Department Care Team (Latest Contact Info) Description 05/18/2024 12:00 PM EDT Hem/Onc Treatment Hematology/Oncolog y Treatment, [place] [address] [place] [address] Ritu, [...] day. 30 Tab 12/25/2018 Active nystatin (NYSTOP) 112641 UNIT/GM powder Apply topically to affected area [...] 05/23/2024 1:30 PM EDT Office Visit Orthopaedics, [place] [address] [place] [address] Gautam Jasso MD [address] [place] [address] 05/25/2024 11:00 AM EDT Laboratory Laboratory [facility] [address] [place], [place] [address] Ritu, Lab Scenery [address] [place], [place] [address] 05/25/2024 12:00 PM EDT [facility] [address] [facility], [place] [address] Ritu, Chair 3 Hem Onc Scenery [address] [place], [place] [address] 06/01/2024 11:00 AM EDT Laboratory Laboratory [facility] [place] [address] [place], [place] [address] Ritu, Lab Scenery [address] [place] [address] 06/01/2024 12:00 PM EDT Hem/Onc Treatment Hematology/Oncology Treatment, [place] [address] [facility], [place] [address] Ritu, Chair 7 Hem Onc Scenery [address] [place] [address] 06/08/2024 10:00 AM EDT Laboratory Laboratory [facility] [place] [address] [place] [address] Ritu, Lab Scenery [address] [place] [address] 06/08/2024 11:00 AM EDT Hem/Onc Treatment Hematology/Oncology Treatment, [place] [address] [facility] [address] Ritu, Chair 7 Hem Onc Scenery [address] [place] [address] 06/15/2024 11:00 AM EDT Laboratory Laboratory Scenery [place] [address] [place] [address] Ritu, Lab Scenery [address] [place] [address] 06/15/2024 12:00 PM EDT Hem/Onc Treatment Hematology/Oncology Treatment, [place] [address] [facility] [address] Ritu, Chair 6 Hem Onc Scenery [address] [place] [address] 06/22/2024 11:00 AM EDT Laboratory Laboratory [facility] [place] [address] [place] [address] Ritu, Lab Scenery [address] [place] [address] 06/22/2024 12:00 PM EDT Hem/Onc Treatment Hematology/Oncology Treatment, [place] [address] [facility] [address] Ritu, Chair 1 Hem Onc Scenery [address] [place] [address] 06/29/2024 11:00 AM EDT Laboratory Laboratory [facility] [place] [address] [place] [address] Ritu, Lab Scenery [address] [place] [address] 06/29/2024 12:00 PM EDT Hem/Onc Treatment Hematology/Oncology Treatment, [place] [address] [facility] [address] Ritu, Chair 10 Hem Onc Scenery [address] [place], [place] [address] 07/06/2024 11:10 AM EDT Laboratory Laboratory [facility] [place] [address] [place], [place] [address] Ritu, Lab Scenery [address] [facility] [place], [place] [address] 07/06/2024 12:30 PM EDT [facility] [address] [facility], [place] [address] Ritu, Chair 4 Hem Onc Scenery [address] [place], [place] [address] 07/13/2024 11:00 AM EDT Laboratory Laboratory [facility] [place] [address] [place] [address] Ritu Lab Scenery [address] [facility] [place], [place] [address] 07/13/2024 11:30 AM EDT Office Visit Hematology/Oncology [facility] Ritu [place] [address] [place], [place] [address] [place] Florez CRNP [address] [place] [address] 07/13/2024 12:00 PM EDT Hem[facility] 200 [facility], [place] [address] Health Maintenance Due Date Last Done Comments [...] this encounter Medical Devices Implanted Type Area Rn Clinical Coordinator Device Identifier Shelf Expiration Date Model / Serial / Lot Screw Elbow Humeral Total - [id number] Implanted:Qty: 1 on 12/23/2018 by Gautam Jasso MD at OR [facility] Right: Upper Arm [employer] 09/13/2027-8400-090 -00 / / [id number] Deisi Nexel Total Elbow Implanted:Qty: 1 on 12/23/2018 by Gautam Jasso MD at OR [facility] Right: Upper Arm 04/13/2023-8400-095 -00 / / [id number] Cement Antibiotic Bone - [id number] Implanted:Qty: 1 on 12/23/2018 by Gautam Jasso MD at OR [facility] Right: Upper Arm RENY : ORTHOPAEDICS 05/13/2020 6197-9-010 / / [id number] Cement Antibiotic Bone - [id number] Implanted:Qty: 1 on 12/23/2018 by Gautam Jasso MD at OR [facility] Right: Upper Arm RENY : ORTHOPAEDICS 05/13/2020 6197-9-010 / / [id number] Stem Compr Srs Mod [id number] - [id number] Implanted:Qty: 1 on 12/23/2018 by Gautam Jasso MD at OR [facility] Right: Upper Arm BIOMET : TRAUMA 01/28/2027 [id number] / / [id number] Deisi Nexel Total Elbow Ulnar Component Implanted:Qty: 1 on 12/23/2018 by Gautam Jasso MD at OR [facility] Right: Upper Arm 07/14/2025 00-8400-025 -07 / / [id number] Comprehensive Srs/Nexel Distal Body Implanted:Qty: 1 on 12/23/2018 by Gautam Jasso MD at OR [facility] Right: Upper Arm 03/03/2028 [id number] / / [id number] Valve Ricky 3 Ultra 26mm - [id number] Implanted:Qty: 1 on 05/27/2022 by Jesús Weber MD at CARDIAC LABS [facility] [employer] [id number] 03/17/2023 [id number] / / Port Implant W/8f Poly Cath - [id number] Implanted:Qty: 1 on 12/29/2022 by Sudhir Lovett DO at OR [facility] Right: Chest CR BARD : PERIPHERAL VASCULAR [id number] 02/12/2024 [id number] / / [id number] documented as of this encounter Visit Diagnoses [...] ONCE PRN Other, Hypersensitivity Reaction, Starting on Tue05/18/24 at 1241, Until 05/19/24 at 1240, For 24 hours EPINEPHrine 1 MG/ML inj 0.3 mg 0.3 mg, Intramuscular, ONCE PRN Other, Hypersensitivity Reaction or Anaphylaxis, Starting on Tue05/18/24 at 1241, Until 05/19/24 at 1240, For 24 hours hEParin 100 UNIT/ML Lock Flush inj 500 Units 500 Units (5 mL), IV Lock, PRN Other, IV Flush, Starting on Tue05/18/24 at 1241, Until 05/19/24 at 1240, For 24 hours, Do not flush if lock, PICC, or central line not in place; IV infusing or unable to flush. Given 05/18/2024 1:54 PM EDT 500 Units Hydrocortisone Sod Suc (PF) (Solu-Cortef) inj 100 mg 100 mg, IV Push, ONCE PRN Other, Hypersensitivity Reaction, Starting on Tue05/18/24 at 1241, Until 05/19/24 at 1240, For 24 hours sodium chloride 0.9 % flush central line 10 mL 10 mL, IV Push, PRN Other, IV Flush, Starting on Tue05/18/24 at 1241, Until 05/19/24 at 1240, For 24 hours, Do not flush if lock, PICC, or central line not in place; IV infusing or unable to flush. Given 05/18/2024 1:54 PM EDT 10 mL Inactive Administered Medications [...] PM EDT 120 mg Arm Left Upper NSS infusion Intravenous, at 50 mL/hr Administer over 10 Hours, ONCE, 1 dose, On Tue05/18/24 at 1315 Start Infusion 05/18/2024 12:53 PM EDT 500 mL 50 mL/hr ondansetron (Zofran) tab 8 mg 8 mg, Oral, ONCE, On Tue05/18/24 at 1315, For 1 dose Given 05/18/2024 12:57 PM EDT 8 mg documented in this encounter Advance Directives Documents on File Type Date Recorded Patient Paralegal Legal Secretary Expl anation Power of Database Technician 12/12/2018 8:46 AM Vipin viveros Power of Database Technician Power of Database Technician 12/12/2018 8:45 AM Zuleyma ferguson Power of Database Technician * Full Code (Latest Code Status [...] the patient have Health Care Power of Database Technician? Yes, not currently available * Full Code Date Activated Date Inactivated Comments 11/21/2018 8:53 AM 11/21/2018 2:27 PM This order ref lects the patients wishes and were consensually agreed upon. Care Teams Car Wrecker Relationship Specialty Start Date End Date Sachi Soni MD [address] [place] [place] [address] PCP - General Family Medicine 05/08/24 documented as of this encounter
--- OUTSIDE RECORDS SUMMARY | 2024-07-01 14:43 | External Medical Summary ---
Author Name Unknown Address Unknown Organization K01:LABORATORY [facility] - [address] [facility] [place] [address] Laboratory Report Ordering Provider Test Date Status WOOD CANTU 05/11/2024 10:23:02 Final Observation Date Value Abnormality Reference (Units) Status PARAPROTEIN NORMAL/ABNORMAL 10:23:02 Abnormal Abnormal Normal Final Protein 10:23:02 5.6 Below low normal 6.0-8.3 (g/dL) Final Albumin/Protein.tota l [Pure mass fraction] in Serum or Plasma by Electrophoresis 10:23:02 2.79 Below low normal 3.30-4.40 (g/dL) Final Alpha 1 globulin/Protein.tot al [Pure mass fraction] in Serum or Plasma by Electrophoresis 10:23:02 0.29 0.10-0.30 (g/dL) Final Alpha 2 globulin/Protein.tot al [Pure mass fraction] in Serum or Plasma by Electrophoresis 4 10:23:02 0.97 0.60-1.00 (g/dL) Final Beta globulin/Protein.tot al [Pure mass fraction] in Serum or Plasma by Electrophoresis 10:23:02 0.99 0.80-1.30 (g/dL) Final Gamma globulin/Protein.tot al [Pure mass fraction] in Serum or Plasma by Electrophoresis 10:23:02 0.57 Below low normal 0.70-1.70 (g/dL) Final Protein Fractions [Interpretation] in Serum or Plasma by Electrophoresis Narrative 10:23:02 Abnormal. 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 See serum immunofixation results. Unable to reliably identify or accurately quantify the paraprotein due to its comigration in the beta region.Please order Final Protein Fractions [Interpretation] in Serum or Plasma by Electrophoresis Narrative 4 10:23:02 serum free light chains, beta-2 microglobulin, and a quantitative immunoglobulins for disease monitoring. 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 Decreased gamma fraction. Paraprotein concentration is Final Protein Fractions [Interpretation] in Serum or Plasma by Electrophoresis Narrative 4 10:23:02 detectable, but less than 0.5 g/dL, unable to be accurately quantified by this method. Final Performing Location LABORATORY [facility] - [address] [facility] [address]
[2024-07-01] MEDS: SODIUM CHLORIDE 0.9% 500 ML IV ONE (15:11)
--- NOTE | 2024-07-01 15:28 | Emergency Department Note ---
Impression & Plan GIB (gastrointestinal bleeding), Anemia, Chest pain, Supratherapeutic INR ED Provider Note NAME: SURI ADAIR AGE: 84 SEX: F : 1940 ARRIVES VIA: Ambulance INFORMANT: Patient, ED PROVIDER(S): Vinod Carmichael DO CHIEF COMPLAINT: Rectal bleeding HPI: The patient is an 84-year-old female who presented to the emergency department for an evaluation of rectal bleeding. She has had rectal bleeding since this morning. She is on Coumadin. She started noticing chest discomfort over the last few hours. She called 911 and arrived via ambulance. The patient denies having any recent trauma. She states that she been compliant with her outpatient medications. The patient was treated with aspirin prior to arrival. She states her pain is mild at this time. She denies have any coughing. ROS: See above HPI for pertinent positives & negatives. A total of 10 systems reviewed and were otherwise negative. PAST MEDICAL HISTORY: See Below PAST SURGICAL HISTORY: See Below FAMILY HISTORY: See Below SOCIAL HISTORY: See Below HOME MEDICATIONS: See Below ALLERGIES: See Below VITALS: See Below PHYSICAL EXAMINATION: GENERAL: Patient is awake alert in no acute distress patient is resting comfortably and showing no signs of anxiety EYES: The conjunctivae are clear. The pupils are round and reactive. EARS, NOSE, MOUTH AND THROAT: The nose is without any evidence of any deformity. Mucous membranes are moist. Tongue is midline. NECK: The neck is nontender and supple. RESPIRATORY: Normal respiratory effort is noted there is no evidence of wheezing rhonchi or rales CARDIOVASCULAR: Regular rate and rhythm noted there no murmurs rubs or gallops normal S1 normal S2. GASTROINTESTINAL: The abdomen is soft. Abdomen is nontender. Rectal exam revealed grossly bloody stool with clots noted. There were external hemorrhoids but no obvious source of bleeding was noted. MUSCULOSKELETAL/EXTREMITIES: There is no evidence of gross deformity full range of motion is noted in the hips and shoulders. SKIN: Skin is warm and dry. Pedal edema was noted bilaterally. NEUROLOGIC: Patient is awake alert and oriented x3. MEDICAL DECISION MAKING: The patient is an 84-year-old female who presented to the emergency department for an evaluation of lower GI bleeding as well as chest discomfort. The patient was experiencing blood per rectum. She thought it could be from her external hemorrhoids however on my exam I do not see any obvious source for the bleeding. I discussed the patient's laboratory and radiographic studies with her. She does have anemia which is baseline for her. EKG showed no acute ischemic changes but she does have a pacemaker. Serial biomarker was negative at this time. The patient was found have an elevated INR. She was treated with oral vitamin K at this time. I discussed the patient's condition with the on-call [facility] hospitalist. They have agreed to evaluate the patient in the emergency department for further management and disposition. Triage Nursing notes reviewed. Prior medical records reviewed Vital Signs: reviewed and remarkable for him. Differential diagnosis: Cardiac ischemia, aortic dissection, pulmonary embolism, pneumothorax, pneumonia, pericarditis, myocarditis, esophageal rupture, GERD, cholecystitis, pancreatitis, musculoskeletal, as well as other pathologies. ER treatment provided: See below Diagnostics interpreted by me: ECG: EKG was obtained in the emergency department. My interpretation is ventricular paced rhythm at 71 bpm. Left bundle branch block pattern was noted. There is no red devil beats. There appears to be ventricular sensing. This was paired to a tracing from March 18, 2024. No changes were noted. Cardiac Monitoring: An order was placed for continuous cardiac monitoring. The monitor shows a rate of 77 bpm with sinus rhythm. Laboratory studies: As stated above and show below. Imaging studies: See below. Radiographic imaging was reviewed by myself Consultation(s): I discussed this case with Dr. Reid who is on-call for the [facility] hospitalist group. Past Med/Surg History Problem List (Updated 07/01/24 @ 16:58 by Vinod Carmichael DO) Supratherapeutic INR (Acute) Chest pain (Acute) Myeloma Candidal esophagitis S/P TAVR (transcatheter aortic valve replacement) History of pulmonary embolism Acute blood loss anemia Acute on chronic diastolic CHF (congestive heart failure) Exertional dyspnea (Acute) Reactive airway disease History of compression fracture of spine (~07/10/22) chronic inferior endplate compression deformity of L3 and the superior end plate compression deformity of L5 Hypomagnesemia Vitamin D deficiency Palliative care encounter GIB (gastrointestinal bleeding) (Acute) Anemia (Acute) Chronic diarrhea (HFpEF) heart failure with preserved ejection fraction Lumbar radiculopathy Left leg pain Depression Osteopenia after menopause Endometrial intraepithelial neoplasia (EIN) Complete heart block (Chronic) 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 Multiple myeloma Medical History Hypercoagulable state Coronary artery disease Cardiac pacemaker (2017) Morbid obesity with BMI of 50.0-59.9, adult Aortic stenosis CHF exacerbation Pancytopenia Acute on chronic respiratory failure with hypoxia Sepsis Pneumonia due to 2019 novel coronavirus Morbid obesity Post-menopausal bleeding Degenerative disc disease Osteoarthritis Hyperlipidemia Diabetes mellitus, type 2 NIDDM History of seizure last seizure 1995 Sleep apnea CPAP + 2 LPM O2 qhs Urinary leakage Basal cell carcinoma face Cervical radiculopathy Positional vertigo Post herpetic neuralgia hx shingles Hemorrhoids Pulmonary embolism years ago (no definitive etiology)- on warfarin 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; s/p surgery, radiation, chemo (receiving weekly oral/IV chemo Fridays + dexamethasone 40mg pretreatment prior to chemo) Anxiety Fracture, humerus Surgical History Aortic valve replaced History of surgery right distal humerus replacement S/P tubal ligation S/P tooth extraction History of endometrial biopsy S/P dilation and curettage History of cataract surgery Bilateral History of tonsillectomy History of appendectomy History of bilateral carpal tunnel release History of cholecystectomy History of knee replacement procedure of left knee History of knee replacement procedure of right knee H/O surgical biopsy Right distal humerus 11/21/18 Family History Mother , 89yo Myocardial infarction Congestive heart failure Father , Pt unsure of details of father's health history;Knows he had facial cancer Malignant neoplasm of oral cavity Sister , May 2019 of copd Diabetes Breast cancer Son Hypertension Grandmother Diabetes Denies family history of Prostate cancer Lung cancer Colorectal cancer Social History Smoking Status: Never smoker Second Hand Exposure: No; Do You Dip or Chew Tobacco: No; Hx Alcohol Use: No Hx Substance Use: No Preferred Language: Yakut Communication Ability: Effective Visual Impairment: No Limitations Hearing Ability: Normal Health Coach Required: No Beliefs That Will Affect Care: None marital status: / Current Living Situation: Alone Current Living Situation Comment: lives with son and [id number] current occupational status: retired 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 Feels Safe at Home: Yes Childhood Exposure to Second-Hand Smoke: No Diet: other caffeine: Yes (1 cup/day) during the past year weight has: remained stable Dental Care, Regularly: No Physical Activity Frequency: Does not Exercise Seatbelt Use: sometimes Sunscreen Use: Yes Assistive Devices: CPAP and Oxygen - at Night Allergies Allergies Allergy/AdvReac Type Severity Reaction Status Date / Time No Known Allergies Allergy Verified 05/12/24 18:36 Home Meds Home Medications Medication Instructions Recorded Confirmed dexamethasone 4 mg tablet 20 mg PO WK 08/27/22 05/12/24 denosumab 120 mg/1.7 mL (70 mg/mL) 120 mg subcut .Q3 months 01/12/23 05/12/24 subcutaneous solution (Xgeva) prochlorperazine maleate 10 mg 10 mg PO Q6 PRN Nausea 01/15/24 05/12/24 tablet Oxygen Home 01/18/24 04/23/24 aspirin 81 mg tablet,delayed 81 mg PO DAILY 04/23/24 05/12/24 release (Adult Low Dose Aspirin) oxycodone 5 mg tablet 5 mg PO Q6H PRN Pain 04/23/24 05/12/24 sodium di- and 1 tab PO BID 04/23/24 05/12/24 monophosphate-potassium phos monobasic 250 mg tablet (Phospha Neutral) warfarin 1 mg tablet 1 mg PO 2XWK 05/12/24 05/12/24 warfarin 4 mg tablet 8 mg PO .DAILY@1600 05/12/24 05/12/24 fentanyl 50 mcg/hr transdermal 1 patch transdermal Q72H 07/01/24 07/01/24 patch furosemide 20 mg tablet 20 mg PO QAM 07/01/24 07/01/24 Previous Rx's Medication Instructions Recorded Wheeled Walker #1 ea 05/19/22 diaper,brief,adult,disposable #120 ea 09/07/22 (Briefs, Adult-Extra Large) incontinence pad, liner, disp #100 ea 09/07/22 latex gloves (Latex Gloves, Large) #100 ea 09/07/22 blood sugar diagnostic (OneTouch #100 ea 12/10/22 Ultra Test strips) acetaminophen 325 mg tablet 650 mg (2 x 325 mg) PO Q4H PRN 05/09/24 fever or pain #30 tabs nystatin 100,000 unit/gram topical 1 applic EXT TID PRN rash in skin 03/22/24 powder (Nystop) folds #30 grams albuterol sulfate 1.25 mg/3 mL 1.25 mg (3 mL) inhalation QID PRN 03/23/24 solution for nebulization shortness of breath or wheezing #90 mL albuterol sulfate 90 mcg/actuation 2 inh inhalation Q6 PRN Shortness 03/23/24 aerosol inhaler Of Breath #1 g atorvastatin 10 mg tablet 10 mg PO QAM #90 tabs 03/23/24 calcium carbonate 600 mg-vitamin 1 tab PO QAM 30 days #30 tabs 03/23/24 D3 5 mcg (200 unit) tablet (Calcium 600 + D(3)) cholecalciferol (vitamin D3) 50 1,000 unit PO QAM #30 tabs 03/23/24 mcg (2,000 unit) tablet cyanocobalamin (vitamin B-12) 100 100 mcg PO QAM #30 tabs 03/23/24 mcg tablet loperamide 2 mg capsule (Imodium 2 mg PO QID PRN Diarrhea 30 days 03/23/24 A-D) #60 caps loratadine 10 mg tablet 10 mg PO QAM 30 days #30 tabs 03/23/24 metoprolol tartrate 25 mg tablet 25 mg PO BID #180 tabs 03/23/24 multivitamin 1 tab PO QAM #30 tabs 03/23/24 pantoprazole 40 mg tablet,delayed 40 mg PO DAILY 30 days #30 tabs 03/23/24 release potassium chloride 10 mEq 10 meq PO AMHS 30 days #30 tabs 03/23/24 tablet,extended release sodium di- and 1 tab PO AMHS 30 days #30 tabs 03/23/24 monophosphate-potassium phos monobasic 250 mg tablet (Phospha Neutral) venlafaxine 150 mg 150 mg PO QPM #30 caps 03/23/24 capsule,extended release 24 hr venlafaxine 75 mg capsule,extended 75 mg PO QAM #30 caps 03/23/24 release 24 hr lidocaine 5 % topical patch 1 patch topical DAILY PRN pain #15 05/12/24 ea Results & Data (ED) Vital Signs Vital Signs - 24 hr 07/01/24 14:41 07/01/24 15:06 07/01/24 15:08 Temperature 36.9 C Temperature Source Oral Pulse Rate 82 70 Pulse Rate from SpO2 Sensor 77 Pulse Rhythm Regular Respiratory Rate 18 26 H 18 Blood Pressure 100/44 L Blood Pressure Mean 62 Pulse Oximetry 94 96 93 Oxygen Delivery Method Room Air Room Air Sepsis Recent Fever Within 48 Hours No Sepsis New/Unexplained Change in Mental Status No Sepsis Action Taken by Nursing No Action Required 07/01/24 15:30 07/01/24 15:45 07/01/24 15:54 Temperature Temperature Source Pulse Rate 70 60 Pulse Rate from SpO2 Sensor Pulse Rhythm Respiratory Rate 20 18 Blood Pressure 130/57 L Blood Pressure Mean 75 Pulse Oximetry Oxygen Delivery Method Sepsis Recent Fever Within 48 Hours Sepsis New/Unexplained Change in Mental Status Sepsis Action Taken by Nursing 07/01/24 16:00 07/01/24 16:03 07/01/24 16:30 Temperature Temperature Source Pulse Rate 69 77 Pulse Rate from SpO2 Sensor 75 Pulse Rhythm Respiratory Rate 17 23 Blood Pressure 109/59 L Blood Pressure Mean 90 Pulse Oximetry 93 Oxygen Delivery Method Sepsis Recent Fever Within 48 Hours Sepsis New/Unexplained Change in Mental Status Sepsis Action Taken by Nursing 07/01/24 16:30 Temperature Temperature Source Pulse Rate Pulse Rate from SpO2 Sensor Pulse Rhythm Respiratory Rate Blood Pressure 117/51 L Blood Pressure Mean 60 Pulse Oximetry Oxygen Delivery Method Sepsis Recent Fever Within 48 Hours Sepsis New/Unexplained Change in Mental Status Sepsis Action Taken by Long Term Medications Current Medication List: was personally reviewed by me Laboratory Data Attestation: I reviewed the patient's lab results. 07/01/24 14:44 07/01/24 14:44 Lab Results 07/01/24 Range/Units 14:44 WBC 5.42 (4.8-10.8) K/ul RBC 3.28 L (4.20-5.40) M/uL Hgb 9.1 L (12.0-16.0) g/dl Hct 29.0 L (37.0-47.0) % MCV 88.4 (80.0-100.0) fL MCH 27.7 (25.0-34.0) pg MCHC 31.4 L (32.0-36.0) g/dL RDW Std Deviation 56.2 H (36.4-46.3) fL RDW Coeff of Giuseppe 17.6 H (11.5-14.5) % Plt Count 107 L (130-400) K/uL Immature Gran % (Auto) 0.9 % Neut % (Auto) 74.7 % Lymph % (Auto) 3.0 % [place] % (Auto) 19.2 % Eos % (Auto) 1.8 % Baso % (Auto) 0.4 % Neut # (Auto) 4.05 (1.40-6.50) K/uL Lymph # (Auto) 0.16 L (1.20-3.40) K/uL [place] # (Auto) 1.04 H (0.11-0.59) K/uL Eos # (Auto) 0.10 (0.00-0.50) K/uL Baso # (Auto) 0.02 (0.00-0.20) K/uL Immature Gran # (Auto) 0.05 (0.01-0.20) K/uL Platelet Estimate Decreased L (Normal) Poikilocytosis Present Tear Drop Cells 1+ Ovalocytes 1+ PT 76.1 H (9.0-12.0) Seconds INR 8.5 H* (0.9-1.1) APTT 43 H (21-31) Seconds PTT Ratio 1.6 Sodium 140 (136-145) mmol/L Potassium 3.3 L (3.5-5.1) mmol/L Chloride 102 (98-107) mmol/L Carbon Dioxide 29 (21-32) mmol/L Anion Gap 9 (3-11) BUN 36 H (6-23) mg/dl Creatinine 1.05 (0.6-1.2) mg/dl Est Cr Clr Drug Dosing 43.8 ml/min Est GFR ( Amer) 56.5 ml/min Est GFR (Non-Af Amer) 48.7 ml/min BUN/Creatinine Ratio 34.3 H (10-20) Glucose 115 H (70-99(Fasting)) mg/dl Calcium 9.5 (8.6-10.3) mg/dl Total Bilirubin 0.3 (0.2-1.0) mg/dl AST 12 L (13-39) U/L ALT 8 (7-52) U/L Alkaline Phosphatase 45 (34-104) U/L Troponin I High Sens 12.9 (0-14) pg/ml Total Protein 5.7 L (6.0-8.3) gm/dl Albumin 3.5 (3.4-5.0) gm/dl Globulin 2.2 L (2.5-4.0) gm/dl Albumin/Globulin Ratio 1.6 (0.9-2) Lipase 48 (11-82) U/L Administered Medications Discontinued Medications Sodium Chloride (Nss) 500 mls @ 999 mls/hr IV .Q31M ONE Stop: 07/01/24 15:37 Last Infusion: 07/01/24 16:13 Dose: Infused Documented By: [facility] Admin: 07/01/24 15:11 Dose: 999 mls/hr Documented By: [facility] Imaging Data Attestation: I personally reviewed and interpreted this imaging study as follows: My Impression: 1 view chest x-ray was obtained in the emergency department. My interpretation is no free air or definite infiltrate, final report below. Radiologist's Impression: Chest X-Ray 07/01/24 15:03 XR chest 1V portable HISTORY: Chest pain, nonspecific COMPARISON: Chest 03/18/2024. FINDINGS: No pneumothorax. No pleural effusions. The heart remains enlarged. There is a left-sided pacemaker and a cardiac valve prosthesis. A right Port-A-Cath terminates in the distal SVC. Old right-sided rib fractures again noted. No acute fractures. No new focal lung consolidations to suggest a pneumonia. Bibasilar linear densities favor subsegmental atelectasis or scarring. No evidence for pulmonary edema. IMPRESSION: 1. Stable cardiomegaly. 2. No evidence for pulmonary edema. 3. Bibasilar linear densities are nonspecific but favor subsegmental atelectasis. ACT 112: Negative or not required by law. Electronically signed by: Merrick Latif M.D. 07/01/2024 4:09 PM Discharge Plan Visit Data Chief Complaint: Rectal Bleed Stated Complaint: RECTAL BLEED ED Provider: Vinod Carmichael Discharge Problem: GIB (gastrointestinal bleeding), Anemia, Chest pain, Supratherapeutic INR Patient Disposition: Being Evaluated by Hospitalist Forms Stand Alone Forms: My [facility] [place] Prescriptions Prescriptions: No Action Xgeva 120 mg/1.7 mL (70 mg/mL) solution 120 mg subcut .Q3 months (DME) Wheeled Walker Misc See Rx Instructions .Route Qty: 1 0RF Rx Instructions: WALKER WITH WHEELS AND SEAT LENGTH OF NEEDS: 99 MONTHS (DME) OneTouch Ultra Test Strip See Rx Instructions .Route Qty: 100 3RF Rx Instructions: check BS 1 x day dexamethasone 4 mg tablet 20 mg PO WK Hold Instructions: Resume on 04/11/24. Discuss with Dr. Allen Rx Instructions: THURSDAYS (DME) Briefs, Adult-Extra Large Misc See Rx Instructions .Route Qty: 120 5RF Rx Instructions: Use up to 4 briefs daily for diarrhea (DME) latex gloves [Latex Gloves, Large] Misc See Rx Instructions .Route Qty: 100 5RF Rx Instructions: use 4 pairs of gloves daily (DME) incontinence pad, liner, disp Pad See Rx Instructions .Route Qty: 100 5RF Rx Instructions: use up to 4 pads daily aspirin [Adult Low Dose Aspirin] 81 mg tablet,delayed release (DR/EC) 81 mg PO DAILY Phospha 250 Neutral 250 mg tablet 1 tab PO BID oxycodone 5 mg tablet 5 mg PO Q6H PRN (Reason: Pain) (DME) Oxygen Home Liters Per Minute See Rx Instructions .Route Rx Instructions: As directed- 2 l nc at HS acetaminophen 325 mg Tablet 650 mg PO Q4H PRN (Reason: fever or pain) Qty: 30 0RF nystatin [Nystop] 100,000 unit/gram Powder 1 applic EXT TID PRN (Reason: rash in skin folds) Qty: 30 0RF multivitamin Tablet 1 tab PO QAM Qty: 30 0RF venlafaxine 75 mg capsule,extended release 24hr 75 mg PO QAM Qty: 30 0RF cyanocobalamin (vitamin B-12) 100 mcg Tablet 100 mcg PO QAM Qty: 30 0RF loperamide [Imodium A-D] 2 mg capsule 2 mg PO QID PRN (Reason: Diarrhea) 30 Days Qty: 60 0RF atorvastatin 10 mg tablet 10 mg PO QAM Qty: 90 0RF albuterol sulfate 1.25 mg/3 mL solution for nebulization 1.25 mg inhalation QID PRN (Reason: shortness of breath or wheezing) Qty: 90 1RF venlafaxine 150 mg capsule,extended release 24hr 150 mg PO QPM Qty: 30 0RF potassium chloride 10 mEq tablet extended release 10 meq PO AMHS 30 Days Qty: 30 0RF calcium carbonate-vitamin D3 [Calcium 600 + D(3)] 600 mg-5 mcg (200 unit) Tablet 1 tab PO QAM 30 Days Qty: 30 0RF pantoprazole 40 mg tablet,delayed release (DR/EC) 40 mg PO DAILY 30 Days Qty: 30 0RF Phospha 250 Neutral 250 mg tablet 1 tab PO AMHS 30 Days Qty: 30 0RF albuterol sulfate 90 mcg/actuation HFA aerosol inhaler 2 inh inhalation Q6 PRN (Reason: Shortness Of Breath) Qty: 1 0RF loratadine 10 mg tablet 10 mg PO QAM 30 Days Qty: 30 0RF metoprolol tartrate 25 mg tablet 25 mg PO BID Qty: 180 0RF cholecalciferol (vitamin D3) 2,000 unit tablet 1,000 unit PO QAM Qty: 30 0RF warfarin 1 mg Tablet 1 mg PO 2XWK Rx Instructions: TAKES TUE & TUE WITH 2-4 MG TABS FOR TOTAL OF 9 MG. warfarin 4 mg tablet 8 mg PO .DAILY@1600 Protocol: Dose Management Condition: Tuesday Dose/Route: 8 mg Instruction: 2 x 4 mg tablets Condition: Tuesday Dose/Route: 9 mg Instruction: 3 x 3 mg tablets Condition: Tuesday Dose/Route: 8 mg Instruction: 2 x 4 mg tablets Condition: Tuesday Dose/Route: 8 mg Instruction: 2 x 4 mg tablets Condition: Dose/Route: 8 mg Instruction: 2 x 4 mg tablets Condition: Tuesday Dose/Route: 9 mg Instruction: 3 x 3 mg tablets Condition: Tuesday Dose/Route: 8 mg Instruction: 2 x 4 mg tablets Protocol Text: Adjustment Start Date: 05/10/24 INR Value: 2.9 INR Date: 05/09/24 Recheck Date: 05/24/24 Rx Instructions: TAKES 8 MG EVER DAY, ON TUESDAY & FRIDAYS--TAKES ADDITIONAL 1 MG FOR TOTAL OF 9 MG. lidocaine 5 % adhesive patch,medicated 1 patch TOP DAILY PRN (Reason: pain) Qty: 15 0RF Rx Instructions: leave on most painful area for 12 hrs prochlorperazine maleate 10 mg tablet 10 mg PO Q6 PRN (Reason: Nausea) furosemide 20 mg tablet 20 mg PO QAM fentanyl 50 mcg/hr Patch 72 Hour 1 patch TRANSDERMAL Q72H Referrals Referrals: Sachi Soni DO [Primary Care Provider] - Discharge Problem: GIB (gastrointestinal bleeding) Qualifiers: GI bleed type/associated pathology: unspecified gastrointestinal hemorrhage type Qualified Code(s): K92.2 - Gastrointestinal hemorrhage, unspecified Anemia Qualifiers: Anemia type: unspecified type Qualified Code(s): D64.9 - Anemia, unspecified Chest pain Qualifiers: Chest pain type: unspecified Qualified Code(s): R07.9 - Chest pain, unspecified
[2024-07-01 15:55] LABS: Albumin Globulin Ratio 1.6 (0.9-2); Albumin Level 3.5 gm/dl (3.4-5.0); BUN Creatinine Ratio 34.3 (10-20); Bilirubin,Total 0.3 mg/dl (0.2-1.0); Calcium 9.5 mg/dl (8.6-10.3); Creatinine Clr Calc Pharmacy 43.8 ml/min; Est GFR (African American) 56.5 ml/min; Est GFR (Non-African American) 48.7 ml/min; Globulin 2.2 gm/dl (2.5-4.0); Potassium 3.3 mmol/L (3.5-5.1); Total Protein 5.7 gm/dl (6.0-8.3)
[2024-07-01 16:03] LABS: Troponin I High Sensitivity 12.9 pg/ml (0-14)
--- NOTE | 2024-07-01 16:10 | XRay Report ---
XR chest 1V portable HISTORY: Chest pain, nonspecific COMPARISON: Chest 03/18/2024. FINDINGS: No pneumothorax. No pleural effusions. The heart remains enlarged. There is a left-sided pa cemaker and a cardiac valve prosthesis. A right Port-A-Cath terminates in the distal SVC. Old right-s ided rib fractures again noted. No acute fractures. No new focal lung consolidations to suggest a pne umonia. Bibasilar linear densities favor subsegmental atelectasis or scarring. No evidence for pulmon john paul edema. IMPRESSION: 1. Stable cardiomegaly. 2. No evidence for pulmonary edema. 3. Bibasilar linear densities are nonspecific but favor subsegmental atelectasis. ACT 112: Negative or not required by law. Electronically signed by: Merrick Latif M.D. 07/01/2024 4:09 PM
[2024-07-01 16:36] LABS: Basophils # (auto) 0.02 K/uL (0.00-0.20); Basophils % (auto) 0.4 %; Eosinophils % (auto) 1.8 %; Hemoglobin 9.1 g/dl (12.0-16.0); Immature Granulocytes # (auto) 0.05 K/uL (0.01-0.20); Immature Granulocytes % (auto) 0.9 %; Lymphocytes # (auto) 0.16 K/uL (1.20-3.40); Mean Corpuscular Hemoglobin 27.7 pg (25.0-34.0); Mean Corpuscular Hgb Conc 31.4 g/dL (32.0-36.0); Mean Corpuscular Volume 88.4 fL (80.0-100.0); Monocytes # (auto) 1.04 K/uL (0.11-0.59); Monocytes % (auto) 19.2 %; Neutrophils # (auto) 4.05 K/uL (1.40-6.50); Neutrophils % (auto) 74.7 %; Ovalocytes 1+; Platelet Count 107 K/uL (130-400); Platelet Estimate Decreased (Normal); Poikilocytosis Present; RDW Coefficient of Variation 17.6 % (11.5-14.5); RDW Standard Deviation 56.2 fL (36.4-46.3); Red Blood Count 3.28 M/uL (4.20-5.40); Tear Drop Cells 1+; White Blood Count 5.42 K/ul (4.8-10.8)
[2024-07-01 16:42] LABS: Partial Thromboplastin Ratio 1.6; Partial Thromboplastin Time 43 Seconds (21-31); Prothrombin Time 76.1 Seconds (9.0-12.0)
[2024-07-01 16:55] LABS: INR 8.5 (0.9-1.1)
--- NOTE | 2024-07-01 17:14 | History & Physical Report ---
Date of Service July 01, 2024 Assessment & Plan (1) GIB (gastrointestinal bleeding): Plan: Lower GI bleeding Bright red blood, small amounts x 1 day in the setting of supratherapeutic INR S/p vitamin K Hemoglobin stable from prior, uptrending. Trended every 8 hours No epigastric pain. No melena. No indication of upper GI bleed. Will defer PPI BID on admission and convert daily to IV, if melena or rising BUN develop then we will add at that time Warfarin held Trend INR Blood consent signed EGD 03/19/2024 for prior GI bleeding showed patchy white plaques, localized gastric antral inflammation, and gastritis. No bleeding ulcers noted at that time. 2 units crossmatched, hemoglobin transfusion threshold 8. No acute tachycardia or hypotension. No indication for transfusion at time of admission Oral meds held, metoprolol converted to IV, Protonix home dose converted to IV Goals of care Patient is with a history of AIN/plasmacytoma, and recently recently discontinued chemo and treatments and is enrolling in hospice. She reports that she would want blood and transfusions if indicated, and is okay with conservative treatments for reversible causes. (2) Supratherapeutic INR: Plan: Vitamin K given Trend INR (3) Chest pain: Plan: No hypotension at bedside assessment, no tachycardia Troponin is normal, no acute ischemic EKG changes Chest pain is mid left sternal and directly and immediately reproducible on light palpation. Probably consistent with MSK, low suspicion for cardiac/demand from anemia (4) (HFpEF) heart failure with preserved ejection fraction: Plan: Clinically near euvolemic No shortness of breath or orthopnea Has reproducible chest pain, no signs of ischemic pain Metoprolol converted to IV while n.p.o. for GI bleed (5) Endometrial intraepithelial neoplasia (EIN): Plan: History of plasmacytoma, and at least endometrial intraepithelial neoplasia. Patient has recently made a decision to discontinue all chemotherapy or curative treatments, and is in the process of enrolling in hospice Fentanyl patch in place, pain adequately controlled at time of admission. Next due for change 07/03 History of Present Illness Primary Care Provider: Sachi Soni DO Chantel is an 84-year-old female with a past medical history of TAVR, acute on chronic diastolic CHF, GI bleed, EIN, lumbar radiculopathy who presents for evaluation of 1 day of rectal bleeding on Coumadin. She had some chest discomfort and received aspirin prehospital. In the ER hemoglobin is 9.1, last 8.4. INR is 8.5 on warfarin, received vitamin K. Chest x-ray is without acute abnormalities. She is recommended for lower GI bleeding with supratherapeutic INR. Seen at the bedside. She reports she has had bright red blood x 1 day. She took her morning medications. Came to the ER for GI bleeding. No lightheadedness, dizziness. Does have chest pain but this is directly reproducible on palpation. No shortness of breath or dyspnea. She recently has stopped her chemo treatments and is enrolling in hospice as outpatient, still does want treatment for acutely reversible conditions and would want blood if indicated. Blood consent signed. Otherwise nondistressed feels well and has no complaints at bedside, just feels nervous due to the bleeding earlier. She has no epigastric or abdominal pain. No nausea/vomiting/diarrhea. Her bleeding was bright red and in the toilet. She has had no black/tarry bowel movements, coffee ground bowel movements, or evidence of melena Medical History: Reviewed Medications: Reviewed Surgical History: Reviewed Family history: Reviewed Allergies: Reviewed Social History: Reviewed Code Status:DNR Allergies Allergy/AdvReac Type Severity Reaction Status Date / Time No Known Allergies Allergy Verified 05/12/24 18:36 Home Medications Medication Instructions Recorded Confirmed Type Wheeled Walker #1 ea 05/19/22 07/01/24 Rx dexamethasone 4 mg tablet 20 mg PO WK 08/27/22 07/01/24 History diaper,brief,adult,disposable #120 ea 09/07/22 07/01/24 Rx (Briefs, Adult-Extra Large) incontinence pad, liner, disp #100 ea 09/07/22 07/01/24 Rx latex gloves (Latex Gloves, Large) #100 ea 09/07/22 07/01/24 Rx blood sugar diagnostic (OneTouch #100 ea 12/10/22 07/01/24 Rx Ultra Test strips) denosumab 120 mg/1.7 mL (70 mg/mL) 120 mg subcut .Q3 months 01/12/23 07/01/24 History subcutaneous solution (Xgeva) prochlorperazine maleate 10 mg 10 mg PO Q6 PRN Nausea 01/15/24 07/01/24 History tablet Oxygen Home 01/18/24 07/01/24 History acetaminophen 325 mg tablet 650 mg (2 x 325 mg) PO Q4H PRN 03/22/24 07/01/24 Rx fever or pain #30 tabs nystatin 100,000 unit/gram topical 1 applic EXT TID PRN rash in skin 03/22/24 07/01/24 Rx powder (Nystop) folds #30 grams albuterol sulfate 1.25 mg/3 mL 1.25 mg (3 mL) inhalation QID PRN 03/23/24 07/01/24 Rx solution for nebulization shortness of breath or wheezing #90 mL albuterol sulfate 90 mcg/actuation 2 inh inhalation Q6 PRN Shortness 03/23/24 07/01/24 Rx aerosol inhaler Of Breath #1 g atorvastatin 10 mg tablet 10 mg PO QAM #90 tabs 03/23/24 07/01/24 Rx calcium carbonate 600 mg-vitamin 1 tab PO QAM 30 days #30 tabs 03/23/24 07/01/24 Rx D3 5 mcg (200 unit) tablet (Calcium 600 + D(3)) cholecalciferol (vitamin D3) 50 1,000 unit PO QAM #30 tabs 03/23/24 07/01/24 Rx mcg (2,000 unit) tablet cyanocobalamin (vitamin B-12) 100 100 mcg PO QAM #30 tabs 03/23/24 07/01/24 Rx mcg tablet loperamide 2 mg capsule (Imodium 2 mg PO QID PRN Diarrhea 30 days 03/23/24 07/01/24 Rx A-D) #60 caps loratadine 10 mg tablet 10 mg PO QAM 30 days #30 tabs 03/23/24 07/01/24 Rx metoprolol tartrate 25 mg tablet 25 mg PO BID #180 tabs 03/23/24 07/01/24 Rx multivitamin 1 tab PO QAM #30 tabs 03/23/24 07/01/24 Rx pantoprazole 40 mg tablet,delayed 40 mg PO DAILY 30 days #30 tabs 03/23/24 07/01/24 Rx release potassium chloride 10 mEq 10 meq PO AMHS 30 days #30 tabs 03/23/24 07/01/24 Rx tablet,extended release sodium di- and 1 tab PO AMHS 30 days #30 tabs 03/23/24 07/01/24 Rx monophosphate-potassium phos monobasic 250 mg tablet (Phospha Neutral) venlafaxine 150 mg 150 mg PO QPM #30 caps 03/23/24 07/01/24 Rx capsule,extended release 24 hr venlafaxine 75 mg capsule,extended 75 mg PO QAM #30 caps 03/23/24 07/01/24 Rx release 24 hr aspirin 81 mg tablet,delayed 81 mg PO DAILY 04/23/24 07/01/24 History release (Adult Low Dose Aspirin) oxycodone 5 mg tablet 5 - 10 mg PO Q4 PRN Pain 04/23/24 07/01/24 History sodium di- and 1 tab PO BID 04/23/24 07/01/24 History monophosphate-potassium phos monobasic 250 mg tablet (Phospha Neutral) lidocaine 5 % topical patch 1 patch topical DAILY PRN pain #15 05/12/24 07/01/24 Rx ea fentanyl 50 mcg/hr transdermal 1 patch transdermal Q72H 07/01/24 07/01/24 History patch furosemide 20 mg tablet 20 mg PO QAM 07/01/24 07/01/24 History warfarin 4 mg tablet 8 mg PO DAILY 07/01/24 07/01/24 History Past Med/Surg History Problem List (Updated 07/01/24 @ 16:58 by Vinod Carmichael DO) Supratherapeutic INR (Acute) Chest pain (Acute) Myeloma Candidal esophagitis S/P TAVR (transcatheter aortic valve replacement) History of pulmonary embolism Acute blood loss anemia Acute on chronic diastolic CHF (congestive heart failure) Exertional dyspnea (Acute) Reactive airway disease History of compression fracture of spine (~07/10/22) chronic inferior endplate compression deformity of L3 and the superior end plate compression deformity of L5 Hypomagnesemia Vitamin D deficiency Palliative care encounter GIB (gastrointestinal bleeding) (Acute) Anemia (Acute) Chronic diarrhea (HFpEF) heart failure with preserved ejection fraction Lumbar radiculopathy Left leg pain Depression Osteopenia after menopause Endometrial intraepithelial neoplasia (EIN) Complete heart block (Chronic) 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 Multiple myeloma Medical History Hypercoagulable state Coronary artery disease Cardiac pacemaker (2017) Morbid obesity with BMI of 50.0-59.9, adult Aortic stenosis CHF exacerbation Pancytopenia Acute on chronic respiratory failure with hypoxia Sepsis Pneumonia due to 2019 novel coronavirus Morbid obesity Post-menopausal bleeding Degenerative disc disease Osteoarthritis Hyperlipidemia Diabetes mellitus, type 2 NIDDM History of seizure last seizure 1995 Sleep apnea CPAP + 2 LPM O2 qhs Urinary leakage Basal cell carcinoma face Cervical radiculopathy Positional vertigo Post herpetic neuralgia hx shingles Hemorrhoids Pulmonary embolism years ago (no definitive etiology)- on warfarin 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; s/p surgery, radiation, chemo (receiving weekly oral/IV chemo Fridays + dexamethasone 40mg pretreatment prior to chemo) Anxiety Fracture, humerus Surgical History Aortic valve replaced History of surgery right distal humerus replacement S/P tubal ligation S/P tooth extraction History of endometrial biopsy S/P dilation and curettage History of cataract surgery Bilateral History of tonsillectomy History of appendectomy History of bilateral carpal tunnel release History of cholecystectomy History of knee replacement procedure of left knee History of knee replacement procedure of right knee H/O surgical biopsy Right distal humerus 11/21/18 Family History Mother , 89yo Myocardial infarction Congestive heart failure Father , Pt unsure of details of father's health history;Knows he had facial cancer Malignant neoplasm of oral cavity Sister , May 2019 of copd Diabetes Breast cancer Son Hypertension Grandmother Diabetes Denies family history of Prostate cancer Lung cancer Colorectal cancer Social History Smoking Status: Never smoker Second Hand Exposure: No; Do You Dip or Chew Tobacco: No; Hx Alcohol Use: No Hx Substance Use: No Preferred Language: Montserratian Communication Ability: Effective Visual Impairment: No Limitations Hearing Ability: Normal Extrusion Process Operator Required: No Beliefs That Will Affect Care: None marital status: / Current Living Situation: Alone Current Living Situation Comment: lives with son and [id number] current occupational status: 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 NAD. Cooperative. HEENT: Atraumatic, normocephalic. Vision/hearin gintact Pulm: CTAB A&P. -wheezes, -rales, -rhonchi. Symmetrical chest rise. No increased work of breathing. No respiratory distress. Cardiac: RRR, +sm. Radial pulses intact and symmetrical. L mid sterum focally TTP. Abdominal: Nontender, nondistended, soft. BS present. Extremities: Warm and well-perfused. Moving all extremities equally Results & Data Results & Data Vital Signs (Past 12 Hours) Vital Signs Temp Pulse Resp BP Pulse Ox O2 Del Method 07/01/24 16:30 117/51 L 07/01/24 16:30 77 23 93 07/01/24 16:03 69 17 07/01/24 16:00 109/59 L 07/01/24 15:54 130/57 L 07/01/24 15:45 60 18 07/01/24 15:30 70 20 07/01/24 15:08 70 18 93 Room Air 07/01/24 15:06 26 H 96 07/01/24 14:41 36.9 C 82 18 100/44 L 94 Room Air PG Care Time/CCT Total # of Minutes Spent Total Time Spent with Patient: Total time spent is greater than 50% in coordination of care (as documented) at patient's floor/unit and/or counseling patient: Coding Level of Care Code 00416 INT INP/OBS CARE 3/75MIN Diagnoses GIB (gastrointestinal bleeding) K92.2 GI bleed type/associated pathology: unspecified gastrointestinal hemorrhage type Supratherapeutic INR R79.1 Chest pain R07.9 Chest pain type: unspecified Acute on chronic heart failure with preserved ejection fraction I50.33 Heart failure chronicity: acute on chronic Endometrial intraepithelial neoplasia (EIN) N85.02 (1) GIB (gastrointestinal bleeding) GI bleed type/associated pathology: unspecified gastrointestinal hemorrhage type Qualified Code(s): K92.2 - Gastrointestinal hemorrhage, unspecified (3) Chest pain Chest pain type: unspecified Qualified Code(s): R07.9 - Chest pain, unspecified (4) (HFpEF) heart failure with preserved ejection fraction Heart failure chronicity: acute on chronic Qualified Code(s): I50.33 - Acute on chronic diastolic (congestive) heart failure
[2024-07-01] MEDS ORDERED: SODIUM CHLORIDE 0.9% 250 ML IV PRN ×2 (17:41→17:54)
[2024-07-01] MEDS: PHYTONADIONE 5 MG TAB PO STA (18:17)
[2024-07-01] MEDS: LACTATED RINGER'S 1,000 ML IV SCH (19:23)
[2024-07-01] MEDS ORDERED: POLYETHYLENE (MIRALAX) 17 GM PACK PO PRN (19:43)
[2024-07-01] MEDS ORDERED: ONDANSETRON INJ 2 MG/ML 2 ML VIAL IV PRN (19:43)
[2024-07-01] MEDS ORDERED: ACETAMINOPHEN 325 MG TAB PO PRN (19:43)
[2024-07-01 20:25] LABS: Hematocrit (blood only) 30.5 % (37.0-47.0); Hemoglobin 9.7 g/dl (12.0-16.0)
[2024-07-01] MEDS: PANTOprazole 40 MG in SYRINGE 0 ML IV ONE (20:35)
[2024-07-01] MEDS: METOPROLOL TARTRATE 25 MG TAB PO SCH (22:06)
[2024-07-01] MEDS: METOPROLOL TARTRATE 1 MG/ML VIAL IV SCH (22:24)
[2024-07-02] MEDS: CHECK fentaNYL PATCH PLACEMENT SCH (01:17)
[2024-07-02 04:27] LABS: Hematocrit (blood only) 28.6 % (37.0-47.0); Hemoglobin 9.3 g/dl (12.0-16.0); Mean Corpuscular Hemoglobin 27.9 pg (25.0-34.0); Mean Corpuscular Hgb Conc 32.5 g/dL (32.0-36.0); Mean Corpuscular Volume 85.9 fL (80.0-100.0); Platelet Count 100 K/uL (130-400); RDW Coefficient of Variation 17.4 % (11.5-14.5); RDW Standard Deviation 54.4 fL (36.4-46.3); Red Blood Count 3.33 M/uL (4.20-5.40); White Blood Count 4.08 K/ul (4.8-10.8)
[2024-07-02 04:39] LABS: Calcium 8.9 mg/dl (8.6-10.3); Potassium 3.7 mmol/L (3.5-5.1)
[2024-07-02 04:45] LABS: BUN Creatinine Ratio 32.3 (10-20); Creatinine Clr Calc Pharmacy 46.5 ml/min; Est GFR (African American) 62.9 ml/min; Est GFR (Non-African American) 54.3 ml/min
[2024-07-02 05:02] LABS: Basophils # (auto) 0.04 K/uL (0.00-0.20); Eosinophils # (auto) 0.12 K/uL (0.00-0.50); Eosinophils % (auto) 3.1 %; Immature Granulocytes % (auto) 2.6 %; Lymphocytes # (auto) 0.19 K/uL (1.20-3.40); Lymphocytes % (auto) 4.9 %; Monocytes # (auto) 0.99 K/uL (0.11-0.59); Monocytes % (auto) 25.3 %; Neutrophils # (auto) 2.47 K/uL (1.40-6.50); Neutrophils % (auto) 63.1 %
[2024-07-02 06:51] LABS: Prothrombin Time 53.4 Seconds (9.0-12.0)
[2024-07-02 07:09] LABS: INR 5.7 (0.9-1.1)
[2024-07-02] MEDS ORDERED: PHYTONADIONE 5 MG in DEXTROSE 5% 50 ML IV ONE (08:57)
--- NOTE | 2024-07-02 09:20 | Electrocardiogram Report ---
Test Reason : Blood Pressure : */* mmHG Vent. Rate : 71 BPM Atrial Rate : 71 BPM P-R Int : * ms QRS Dur : 152 ms QT Int : 456 ms P-R-T Axes : 93 -83 68 degrees QTcB Int : 495 ms Poor data quality, interpretation may be adversely affected Atrial sensing, ventricular pacing with occasional electronic atrial pacing Abnormal ECG When compared with ECG of 18-Mar-2024 15:19, No significant change was found Reconfirmed by Nabil Pena ([id number]) on 07/02/2024 9:21:15 AM Referred By: Confirmed By: Nabil Pena
[2024-07-02] MEDS: PHYTONADIONE 5 MG in DEXTROSE 5% 50 ML IV ONE (10:34)
--- NOTE | 2024-07-02 12:19 | Hospitalist Progress Note ---
Date of Service July 02, 2024 Assessment & Plan (1) GIB (gastrointestinal bleeding): Plan: She had 1 episode of bright red blood per rectum. This may have been hemorrhoidal. Coumadin is being reversed. Hemoglobin is 9.3 today, July 02. No indication for transfusion at this time. EGD done earlier this year was negative for peptic ulcer disease. (2) Supratherapeutic INR: Plan: Coumadin toxicity present on admission. She received vitamin K on admission and will receive another dose today, July 02. INR has improved from 8.5 on admission down to 5.7. (3) Chest pain: Plan: No evidence of acute coronary syndrome. Troponin is normal. No acute EKG changes. Chest discomfort is reproducible and appears to be of chest wall etiology. (4) (HFpEF) heart failure with preserved ejection fraction: Plan: Chronic. No exacerbation on admission. Monitor intake and output. (5) Endometrial intraepithelial neoplasia (EIN): Plan: History of plasmacytoma, and at least endometrial intraepithelial neoplasia. Patient has recently made a decision to discontinue all chemotherapy or curative treatments, and is in the process of enrolling in hospice. Fentanyl patch in place, pain adequately controlled at time of admission. Next due for change 07/03 Plan Hopeful discharge to home tomorrow, July 03 Admission and Anticipated Discharge Date Admission Date: July 01, 2024 Subjective Alert and oriented. No distress. INR was 8.5 on admission and now down to 5.7. She will receive another dose of parenteral vitamin K today. Coumadin has been discontinued. She states she has been on this for quite some time, years in fact, after suffering a PE in the past. She has a TAVR but I see no reason for continued Coumadin therapy here. It will be discontinued indefinitely. Hemoglobin is 9.3. Hopefully she can go home tomorrow, July 03 Review of Systems 2 Review of Systems: Constitutionalno fever or chills ENTno blurred vision, no double vision, no epistaxis, no sore throat Respiratoryno cough, no wheezing, no shortness of breath Cardiacno palpitations, no chest pain, no syncope Angel nausea, vomiting, diarrhea, melena, hematochezia GUno urinary retention, no urinary incontinence, no dysuria, no hematuria Musculoskeletalno joint pain, no muscle tenderness Skinno bruising, no rashes, no pruritus Neurono isolated weakness, no paresthesia, no weakness Psychno depression, no anxiety Physical Exam 2 Physical Exam: General-alert and oriented x3, no fever, no chills HEENT-head atraumatic and normocephalic, pupils equal and reactive to light, extraocular muscles intact Neck-no lymphadenopathy or thyromegaly, trachea midline Chest-clear to auscultation. No rales, wheezing or rhonchi Cardiac-regular rate and rhythm, normal S1 and S2 Abdomen-normal bowel sounds, no hepatosplenomegaly Extremities-no cyanosis, clubbing, or edema Neuro-cranial nerves II through XII intact, motor and sensory function within normal limits, strength symmetrical, no focal deficits Psych-normal affect, normal mood Results & Data Results & Data Vital Signs (Past 12 Hours) Vital Signs Temp Pulse Resp BP Pulse Ox O2 Del Method 07/02/24 11:32 36.8 C 78 18 101/65 97 Room Air 07/02/24 07:55 36.7 C 74 17 110/68 90 Room Air 07/02/24 04:00 37.1 C 68 18 106/62 92 Room Air Laboratory Results 07/02/24 03:58 07/02/24 04:05 PG Care Time/CCT Total # of Minutes Spent Total Time Spent with Patient: Total time spent is greater than 50% in coordination of care (as documented) at patient's floor/unit and/or counseling patient: Coding Level of Care Code 73709 SUB INP/OBS CARE 3/50MIN Diagnoses GIB (gastrointestinal bleeding) K92.2 GI bleed type/associated pathology: unspecified gastrointestinal hemorrhage type Supratherapeutic INR R79.1 Chest pain R07.9 Chest pain type: unspecified Acute on chronic heart failure with preserved ejection fraction I50.33 Heart failure chronicity: acute on chronic Endometrial intraepithelial neoplasia (EIN) N85.02 (1) GIB (gastrointestinal bleeding) GI bleed type/associated pathology: unspecified gastrointestinal hemorrhage type Qualified Code(s): K92.2 - Gastrointestinal hemorrhage, unspecified (3) Chest pain Chest pain type: unspecified Qualified Code(s): R07.9 - Chest pain, unspecified (4) (HFpEF) heart failure with preserved ejection fraction Heart failure chronicity: acute on chronic Qualified Code(s): I50.33 - Acute on chronic diastolic (congestive) heart failure
[2024-07-02] MEDS: PANTOprazole 40 MG in SYRINGE 0 ML IV SCH (12:30)
[2024-07-02 12:35] LABS: Hematocrit (blood only) 33.5 % (37.0-47.0); Hemoglobin 11.2 g/dl (12.0-16.0)
[2024-07-03 07:16] LABS: Calcium 8.5 mg/dl (8.6-10.3); Potassium 3.6 mmol/L (3.5-5.1)
[2024-07-03 07:22] LABS: BUN Creatinine Ratio 20.9 (10-20); Creatinine Clr Calc Pharmacy 52.7 ml/min; Est GFR (African American) 71.9 ml/min
[2024-07-03 07:23] LABS: Hematocrit (blood only) 29.6 % (37.0-47.0); Hemoglobin 9.4 g/dl (12.0-16.0); Mean Corpuscular Hemoglobin 27.6 pg (25.0-34.0); Mean Corpuscular Hgb Conc 31.8 g/dL (32.0-36.0); Mean Corpuscular Volume 87.1 fL (80.0-100.0); Platelet Count 94 K/uL (130-400); RDW Coefficient of Variation 17.4 % (11.5-14.5); RDW Standard Deviation 55.2 fL (36.4-46.3); White Blood Count 3.78 K/ul (4.8-10.8)
[2024-07-03 07:33] LABS: INR 1.2 (0.9-1.1)
[2024-07-03 07:40] LABS: Acanthocytes 1+; Basophils # (auto) 0.02 K/uL (0.00-0.20); Basophils % (auto) 0.5 %; Eosinophils # (auto) 0.11 K/uL (0.00-0.50); Eosinophils % (auto) 2.9 %; Immature Granulocytes # (auto) 0.02 K/uL (0.01-0.20); Immature Granulocytes % (auto) 0.5 %; Lymphocytes # (auto) 0.22 K/uL (1.20-3.40); Lymphocytes % (auto) 5.8 %; Monocytes # (auto) 0.75 K/uL (0.11-0.59); Monocytes % (auto) 19.8 %; Neutrophils # (auto) 2.66 K/uL (1.40-6.50); Neutrophils % (auto) 70.5 %; Ovalocytes 1+; Tear Drop Cells 1+
[2024-07-03 07:54] VITALS: RESP 18
[2024-07-03] MEDS: fentaNYL 50 MCG/HR TDSY TD SCH (11:11)
[2024-07-03 11:41] VITALS: PULSE 82; TEMP 98.4; O2SAT 90
--- NOTE | 2024-07-03 12:58 | Discharge Summary ---
Discharge Summary Date of Service July 03, 2024 Principal Dx & Hospital Course #1 = Principal Diagnosis (1) GIB (gastrointestinal bleeding): She had 1 episode of bright red blood per rectum. This may have been hemorrhoidal. Coumadin has been reversed with vitamin K. Hemoglobin is stable. No indication for transfusion at this time. EGD done earlier this year was negative for peptic ulcer disease. (2) Supratherapeutic INR: Coumadin toxicity present on admission. She received several doses of vitamin K and INR is now normal. Coumadin has been discontinued permanently. (3) Chest pain: No evidence of acute coronary syndrome. Troponin is normal. No acute EKG changes. Chest discomfort is reproducible and appears to be of chest wall etiology. (4) (HFpEF) heart failure with preserved ejection fraction: Chronic. No exacerbation on admission. Monitor intake and output. 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 Patient has recently made a decision to discontinue all chemotherapy or curative treatments, and is in the process of enrolling in hospice. Fentanyl patch in place, pain adequately controlled at time of admission. Next due for change 07/03 Plan Home today, July 03. Admission HPI Per Admitting Provider Chantel is an 84-year-old female with a past medical history of TAVR, acute on chronic diastolic CHF, GI bleed, EIN, lumbar radiculopathy who presents for evaluation of 1 day of rectal bleeding on Coumadin. She had some chest discomfort and received aspirin prehospital. In the ER hemoglobin is 9.1, last 8.4. INR is 8.5 on warfarin, received vitamin K. Chest x-ray is without acute abnormalities. She is recommended for lower GI bleeding with supratherapeutic INR. Seen at the bedside. She reports she has had bright red blood x 1 day. She took her morning medications. Came to the ER for GI bleeding. No lightheadedness, dizziness. Does have chest pain but this is directly reproducible on palpation. No shortness of breath or dyspnea. She recently has stopped her chemo treatments and is enrolling in hospice as outpatient, still does want treatment for acutely reversible conditions and would want blood if indicated. Blood consent signed. Otherwise nondistressed feels well and has no complaints at bedside, just feels nervous due to the bleeding earlier. She has no epigastric or abdominal pain. No nausea/vomiting/diarrhea. Her bleeding was bright red and in the toilet. She has had no black/tarry bowel movements, coffee ground bowel movements, or evidence of melena Medical History: Reviewed Medications: Reviewed Surgical History: Reviewed Family history: Reviewed Allergies: Reviewed Social History: Reviewed Code Status:DNR Discharge Exam General-alert and oriented x3, no fever, no chills HEENT-head atraumatic and normocephalic, pupils equal and reactive to light, extraocular muscles intact Neck-no lymphadenopathy or thyromegaly, trachea midline Chest-clear to auscultation. No rales, wheezing or rhonchi Cardiac-regular rate and rhythm, normal S1 and S2 Abdomen-normal bowel sounds, no hepatosplenomegaly Extremities-no cyanosis, clubbing, or edema Neuro-cranial nerves II through XII intact, motor and sensory function within normal limits, strength symmetrical, no focal deficits Psych-normal affect, normal mood Discharge Plan Discharge Items Patient Disposition: Home - Home Health Services Reason For Visit: LGIB, SUPRATHERAPEUTIC INR Discharge Diagnosis: Lower GI bleeding, Coumadin toxicity, hypokalemia Activity: Resume your previous activity Non-emergency contact: Primary Care Provider Call non-emergency contact if: your symptoms worsen Follow-up/Referrals: Sachi Soni, [Primary Care Provider] - Diet: Regular and Heart Healthy Addtl Attending Provider Instructions: Coumadin has been discontinued. All other medications remain the same Pending Studies at Discharge: No Stand-Alone Forms: My [employer], Smoking Cessation Medications and DC Order Prescriptions: Continued Xgeva 120 mg/1.7 mL (70 mg/mL) solution 120 mg subcut .Q3 months (DME) Wheeled Walker Misc See Rx Instructions .Route Qty: 1 0RF Rx Instructions: WALKER WITH WHEELS AND SEAT LENGTH OF NEEDS: 99 MONTHS (DME) OneTouch Ultra Test Strip See Rx Instructions .Route Qty: 100 3RF Rx Instructions: check BS 1 x day dexamethasone 4 mg tablet 20 mg PO WK Hold Instructions: Resume on 04/11/24. Discuss with Dr. Allen Rx Instructions: THURSDAYS (DME) Briefs, Adult-Extra Large Misc See Rx Instructions .Route Qty: 120 5RF Rx Instructions: Use up to 4 briefs daily for diarrhea (DME) latex gloves [Latex Gloves, Large] Misc See Rx Instructions .Route Qty: 100 5RF Rx Instructions: use 4 pairs of gloves daily (DME) incontinence pad, liner, disp Pad See Rx Instructions .Route Qty: 100 5RF Rx Instructions: use up to 4 pads daily aspirin [Adult Low Dose Aspirin] 81 mg tablet,delayed release (DR/EC) 81 mg PO DAILY Phospha 250 Neutral 250 mg tablet 1 tab PO BID oxycodone 5 mg tablet 5 - 10 mg PO Q4 PRN (Reason: Pain) (DME) Oxygen Home Liters Per Minute See Rx Instructions .Route Rx Instructions: As directed- 2 l nc at HS acetaminophen 325 mg Tablet 650 mg PO Q4H PRN (Reason: fever or pain) Qty: 30 0RF nystatin [Nystop] 100,000 unit/gram Powder 1 applic EXT TID PRN (Reason: rash in skin folds) Qty: 30 0RF multivitamin Tablet 1 tab PO QAM Qty: 30 0RF venlafaxine 75 mg capsule,extended release 24hr 75 mg PO QAM Qty: 30 0RF cyanocobalamin (vitamin B-12) 100 mcg Tablet 100 mcg PO QAM Qty: 30 0RF loperamide [Imodium A-D] 2 mg capsule 2 mg PO QID PRN (Reason: Diarrhea) 30 Days Qty: 60 0RF atorvastatin 10 mg tablet 10 mg PO QAM Qty: 90 0RF albuterol sulfate 1.25 mg/3 mL solution for nebulization 1.25 mg inhalation QID PRN (Reason: shortness of breath or wheezing) Qty: 90 1RF venlafaxine 150 mg capsule,extended release 24hr 150 mg PO QPM Qty: 30 0RF potassium chloride 10 mEq tablet extended release 10 meq PO AMHS 30 Days Qty: 30 0RF calcium carbonate-vitamin D3 [Calcium 600 + D(3)] 600 mg-5 mcg (200 unit) Tablet 1 tab PO QAM 30 Days Qty: 30 0RF pantoprazole 40 mg tablet,delayed release (DR/EC) 40 mg PO DAILY 30 Days Qty: 30 0RF Phospha 250 Neutral 250 mg tablet 1 tab PO AMHS 30 Days Qty: 30 0RF albuterol sulfate 90 mcg/actuation HFA aerosol inhaler 2 inh inhalation Q6 PRN (Reason: Shortness Of Breath) Qty: 1 0RF loratadine 10 mg tablet 10 mg PO QAM 30 Days Qty: 30 0RF metoprolol tartrate 25 mg tablet 25 mg PO BID Qty: 180 0RF cholecalciferol (vitamin D3) 2,000 unit tablet 1,000 unit PO QAM Qty: 30 0RF lidocaine 5 % adhesive patch,medicated 1 patch TOP DAILY PRN (Reason: pain) Qty: 15 0RF Rx Instructions: leave on most painful area for 12 hrs prochlorperazine maleate 10 mg tablet 10 mg PO Q6 PRN (Reason: Nausea) furosemide 20 mg tablet 20 mg PO QAM fentanyl 50 mcg/hr Patch 72 Hour 1 patch TRANSDERMAL Q72H Discontinued warfarin 4 mg tablet 8 mg PO DAILY Admission Data Admit Date/Time: 07/01/24 17:40 Attending Provider: Chilo Walter Admit Provider: Kulwinder Magallanes Primary Care Provider: Sachi Soni Other Providers: Kulwinder Magallanes Hospital Stay Data Consultations 07/01/24 16:44 ED Decision to Admit Stat Pending Results Patient Have Any Pending Studies at Discharge: No Discharge Instructions Given to Patient (Per Discharging Provider) Coumadin has been discontinued. All other medications remain the same Total Time Total Time Spent Total Time Spent (In Minutes): 50 minutes Coding Level of Care Code 14377 INP/OBS DISCH >30 MIN Diagnoses GIB (gastrointestinal bleeding) K92.2 GI bleed type/associated pathology: unspecified gastrointestinal hemorrhage type Supratherapeutic INR R79.1 Chest pain R07.9 Chest pain type: unspecified Acute on chronic heart failure with preserved ejection fraction I50.33 Heart failure chronicity: acute on chronic Endometrial intraepithelial neoplasia (EIN) N85.02
[2024-07-03 14:53] VITALS: BP 124/66
[2024-07-03] MEDS ORDERED: fentaNYL 50 MCG/HR TDSY TD SCH (17:45)
== END 2024-07-03 15:42 | disposition home health service (06) ==
LOC: 2N 14:29 → ED 14:29 → SUATTDRO 17:40 → 2N 19:54

== ENCOUNTER 2024-07-30 13:27 | Inpatient (IN) ==
--- NOTE | 2024-07-30 14:29 | Emergency Department Note ---
Impression & Plan Acute alteration in mental status, Acute respiratory acidosis, Elevated troponin I level, Hypoxia ED Provider Note NAME: SURI ADAIR AGE: 84 SEX: F : 1940 ARRIVES VIA: Ambulance INFORMANT: Patient, EMS ED PROVIDER(S): Vinod Carmichael DO CHIEF COMPLAINT: Confusion HPI: The patient is an 84-year-old female who presented to the emergency department for confusion. The patient normally is picked up by a transport van for her appointments. When the transport van arrived she was noted to be confused and walking around the outside of her home. There is no reported trauma. The patient himself offers no complaints. She was noted to have shortness of breath and was placed on her home CPAP prior to coming to the emergency department. According to EMS she was hypoxic. They did not notice any focal neurologic deficits. The patient's baseline is not known to me at this time. ROS: See above HPI for pertinent positives & negatives. A total of 10 systems reviewed and were otherwise negative. PAST MEDICAL HISTORY: See Below PAST SURGICAL HISTORY: See Below FAMILY HISTORY: See Below SOCIAL HISTORY: See Below HOME MEDICATIONS: See Below ALLERGIES: See Below VITALS: See Below PHYSICAL EXAMINATION: GENERAL: Patient is awake alert in no acute distress patient is resting comfortably and showing no signs of anxiety EYES: The conjunctivae are clear. The pupils are round and reactive. EARS, NOSE, MOUTH AND THROAT: The nose is without any evidence of any deformity. NECK: The neck is nontender and supple. RESPIRATORY: Diminished breath sounds are noted throughout. There is no tachypnea or conversational dyspnea. CARDIOVASCULAR: Regular rate and rhythm noted there no murmurs rubs or gallops normal S1 normal S2. GASTROINTESTINAL: The abdomen is soft. Abdomen is nontender. MUSCULOSKELETAL/EXTREMITIES: There is no evidence of gross deformity full range of motion is noted in the hips and shoulders. SKIN: skin was warm and dry. Pedal edema was noted bilaterally. NEUROLOGIC: Patient is awake and oriented to person and place but not time. Strength was symmetric but diminished. MEDICAL DECISION MAKING: The patient is an 84-year-old female who presented to the emergency department for an evaluation of altered mental status. The patient normally has a van that takes her to her appointments. When they got there she was confused. The patient was noted to be hypoxic. She was placed on supplemental oxygen. The patient was found to have a CT that did show an area in the frontal lobe that could be consistent with a subacute stroke. I discussed the patient's laboratory and radiographic studies with her. Her daughter did call and states that sometimes she takes her pain medication prior to going on her appointments with the van. She does have a fentanyl patch. She also takes pain medication. It is possible what we are seeing is more related to a medication reaction but given her laboratory findings as well as the CAT scan of the head I do feel the patient would be a better candidate for inpatient management. For this reason I will discuss her condition with the on-call [facility] hospitalist. Triage Nursing notes reviewed. Prior medical records reviewed Vital Signs: reviewed and remarkable for no significant abnormalities Differential diagnosis: Infection, hypoglycemia, electrolyte abnormalities, overdose, toxicologic, cardiac sources, intracerebral event, neurologic, trauma, as well as other pathologies. ER treatment provided: See below Diagnostics interpreted by me: ECG: EKG was obtained in the emergency department. My interpretation is ventricular paced rhythm at 67 bpm. A left bundle branch block pattern was noted. There were no [place] beats noted. This was compared to a tracing from July 01, 2024. No changes were noted. Cardiac Monitoring: An order was placed for continuous cardiac monitoring. The monitor shows a rate of 78 bpm with paced rhythm. Laboratory studies: As stated above and show below. Imaging studies: See below. Radiographic imaging was reviewed by myself Consultation(s): I discussed this case with Dr. Schaefer who is on-call for the [facility]ist group. Past Med/Surg History Problem List (Updated 07/30/24 @ 16:40 by Vinod Carmichael DO) Hypoxia (Acute) Elevated troponin I level (Acute) Acute respiratory acidosis (Acute) Acute alteration in mental status (Acute) Abdominal pain (Acute) Supratherapeutic INR (Acute) Chest pain (Acute) Myeloma Candidal esophagitis S/P TAVR (transcatheter aortic valve replacement) History of pulmonary embolism Acute blood loss anemia Acute on chronic diastolic CHF (congestive heart failure) Exertional dyspnea (Acute) Reactive airway disease History of compression fracture of spine (~07/10/22) chronic inferior endplate compression deformity of L3 and the superior end plate compression deformity of L5 Hypomagnesemia Vitamin D deficiency Palliative care encounter GIB (gastrointestinal bleeding) (Acute) Anemia (Acute) Chronic diarrhea (HFpEF) heart failure with preserved ejection fraction Lumbar radiculopathy Left leg pain Depression Osteopenia after menopause Endometrial intraepithelial neoplasia (EIN) Complete heart block (Chronic) 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 Multiple myeloma Medical History Hypercoagulable state Coronary artery disease Cardiac pacemaker (2017) Morbid obesity with BMI of 50.0-59.9, adult Aortic stenosis CHF exacerbation Pancytopenia Acute on chronic respiratory failure with hypoxia Sepsis Pneumonia due to 2019 novel coronavirus Morbid obesity Post-menopausal bleeding Degenerative disc disease Osteoarthritis Hyperlipidemia Diabetes mellitus, type 2 NIDDM History of seizure last seizure 1995 Sleep apnea CPAP + 2 LPM O2 qhs Urinary leakage Basal cell carcinoma face Cervical radiculopathy Positional vertigo Post herpetic neuralgia hx shingles Hemorrhoids Pulmonary embolism years ago (no definitive etiology)- on warfarin 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; s/p surgery, radiation, chemo (receiving weekly oral/IV chemo Fridays + dexamethasone 40mg pretreatment prior to chemo) Anxiety Fracture, humerus Surgical History Aortic valve replaced History of surgery right distal humerus replacement S/P tubal ligation S/P tooth extraction History of endometrial biopsy S/P dilation and curettage History of cataract surgery Bilateral History of tonsillectomy History of appendectomy History of bilateral carpal tunnel release History of cholecystectomy History of knee replacement procedure of left knee History of knee replacement procedure of right knee H/O surgical biopsy Right distal humerus 11/21/18 Family History Mother , 89yo Myocardial infarction Congestive heart failure Father , Pt unsure of details of father's health history;Knows he had facial cancer Malignant neoplasm of oral cavity Sister , May 2019 of copd Diabetes Breast cancer Son Hypertension Grandmother Diabetes Denies family history of Prostate cancer Lung cancer Colorectal cancer Social History Smoking Status: Never smoker Second Hand Exposure: No; Do You Dip or Chew Tobacco: No; Hx Alcohol Use: No Hx Substance Use: No Preferred Language: Ghanaian Communication Ability: Effective Visual Impairment: No Limitations Hearing Ability: Normal Senior Drafter Required: No Beliefs That Will Affect Care: None marital status: / Current Living Situation: Alone Current Living Situation Comment: lives with son and [id number] current occupational status: retired 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 Feels Safe at Home: Yes Childhood Exposure to Second-Hand Smoke: No Diet: other caffeine: Yes (1 cup/day) during the past year weight has: remained stable Dental Care, Regularly: No Physical Activity Frequency: Does not Exercise Seatbelt Use: sometimes Sunscreen Use: Yes Assistive Devices: CPAP, Glasses and Oxygen - at Night Allergies Allergies Allergy/AdvReac Type Severity Reaction Status Date / Time No Known Allergies Allergy Verified 05/12/24 18:36 Home Meds Home Medications Medication Instructions Recorded Confirmed dexamethasone 4 mg tablet 20 mg PO WK 08/27/22 07/21/24 denosumab 120 mg/1.7 mL (70 mg/mL) 120 mg subcut .Q3 months 01/12/23 07/21/24 subcutaneous solution (Xgeva) prochlorperazine maleate 10 mg 10 mg PO Q6 PRN Nausea 01/15/24 07/21/24 tablet Oxygen Home 01/18/24 07/21/24 oxycodone 5 mg tablet 5 - 10 mg PO Q4 PRN Pain 04/23/24 07/21/24 sodium di- and 1 tab PO BID 04/23/24 07/21/24 monophosphate-potassium phos monobasic 250 mg tablet (Phospha Neutral) fentanyl 50 mcg/hr transdermal 1 patch transdermal Q72H 07/01/24 07/21/24 patch furosemide 20 mg tablet 20 mg PO QAM 07/01/24 07/21/24 aspirin 81 mg chewable tablet 81 mg PO QAM 07/21/24 07/21/24 Previous Rx's Medication Instructions Recorded Wheeled Walker #1 ea 05/19/22 diaper,brief,adult,disposable #120 ea 09/07/22 (Briefs, Adult-Extra Large) incontinence pad, liner, disp #100 ea 09/07/22 latex gloves (Latex Gloves, Large) #100 ea 09/07/22 blood sugar diagnostic (OneTouch #100 ea 12/10/22 Ultra Test strips) acetaminophen 325 mg tablet 650 mg (2 x 325 mg) PO Q4H PRN 03/22/24 fever or pain #30 tabs nystatin 100,000 unit/gram topical 1 applic EXT TID PRN rash in skin 03/22/24 powder (Nystop) folds #30 grams albuterol sulfate 1.25 mg/3 mL 1.25 mg (3 mL) inhalation QID PRN 03/23/24 solution for nebulization shortness of breath or wheezing #90 mL albuterol sulfate 90 mcg/actuation 2 inh inhalation Q6 PRN Shortness 03/23/24 aerosol inhaler Of Breath #1 g atorvastatin 10 mg tablet 10 mg PO QAM #90 tabs 03/23/24 calcium carbonate 600 mg-vitamin 1 tab PO QAM 30 days #30 tabs 03/23/24 D3 5 mcg (200 unit) tablet (Calcium 600 + D(3)) cholecalciferol (vitamin D3) 50 1,000 unit PO QAM #30 tabs 03/23/24 mcg (2,000 unit) tablet cyanocobalamin (vitamin B-12) 100 100 mcg PO QAM #30 tabs 03/23/24 mcg tablet loperamide 2 mg capsule (Imodium 2 mg PO QID PRN Diarrhea 30 days 03/23/24 A-D) #60 caps loratadine 10 mg tablet 10 mg PO QAM 30 days #30 tabs 03/23/24 metoprolol tartrate 25 mg tablet 25 mg PO BID #180 tabs 03/23/24 multivitamin 1 tab PO QAM #30 tabs 03/23/24 pantoprazole 40 mg tablet,delayed 40 mg PO DAILY 30 days #30 tabs 03/23/24 release potassium chloride 10 mEq 10 meq PO AMHS 30 days #30 tabs 03/23/24 tablet,extended release sodium di- and 1 tab PO AMHS 30 days #30 tabs 03/23/24 monophosphate-potassium phos monobasic 250 mg tablet (Phospha Neutral) venlafaxine 150 mg 150 mg PO QPM #30 caps 03/23/24 capsule,extended release 24 hr venlafaxine 75 mg capsule,extended 75 mg PO QAM #30 caps 03/23/24 release 24 hr lidocaine 5 % topical patch 1 patch topical DAILY PRN pain #15 05/12/24 ea Results & Data (ED) Vital Signs Vital Signs - 24 hr 07/30/24 13:16 07/30/24 13:40 07/30/24 15:44 Temperature 37.0 C Temperature Source Oral Pulse Rate 86 82 Pulse Rate [Apical] 78 Respiratory Rate 20 20 Respiratory Effort / Characteristics Non-Labored Spontaneous Non-Labored Spontaneous Respiratory Depth Normal Normal Blood Pressure 148/116 H Blood Pressure [Left Arm] 123/90 Blood Pressure Mean 126 Blood Pressure Mean [Left Arm] 101 Pulse Oximetry 97 99 Oxygen Delivery Method Nasal Cannula Nasal Cannula Oxygen Flow Rate 5 3 Sepsis Recent Fever Within 48 Hours No Sepsis New/Unexplained Change in Mental Status No Sepsis Action Taken by Nursing No Action Required Oxygen Flow Rate - Titration Pulse Oximetry Post Tiitration 07/30/24 15:45 07/30/24 15:45 07/30/24 16:07 Temperature Temperature Source Pulse Rate Pulse Rate [Apical] Respiratory Rate Respiratory Effort / Characteristics Respiratory Depth Blood Pressure Blood Pressure [Left Arm] 143/80 H Blood Pressure Mean Blood Pressure Mean [Left Arm] 101 Pulse Oximetry 97 99 Oxygen Delivery Method Nasal Cannula Nasal Cannula Oxygen Flow Rate 3 6 Sepsis Recent Fever Within 48 Hours Sepsis New/Unexplained Change in Mental Status Sepsis Action Taken by Nursing Oxygen Flow Rate - Titration 3 Pulse Oximetry Post Tiitration 97 Home Medications Current Medication List: was personally reviewed by me Laboratory Data Attestation: I reviewed the patient's lab results. 07/30/24 15:25 07/30/24 13:45 Lab Results 07/30/24 07/30/24 07/30/24 Range/Units 13:36 13:45 14:28 WBC Cancelled RBC Cancelled Hgb Cancelled Hct Cancelled MCV Cancelled MCH Cancelled MCHC Cancelled RDW Std Deviation Cancelled RDW Coeff of Giuseppe Cancelled Plt Count Cancelled MPV Cancelled Immature Gran % (Auto) Cancelled Neut % (Auto) Cancelled Lymph % (Auto) Cancelled [place] % (Auto) Cancelled Eos % (Auto) Cancelled Baso % (Auto) Cancelled Neut # (Auto) Cancelled Lymph # (Auto) Cancelled [place] # (Auto) Cancelled Eos # (Auto) Cancelled Baso # (Auto) Cancelled Immature Gran # (Auto) Cancelled Absolute Nucleated RBC Cancelled Nucleated RBC % (auto) Cancelled Neutrophils % (Manual) Cancelled Band Neutrophils % Cancelled Lymphocytes % (Manual) Cancelled Prolymphocyte % Cancelled Reactive Lymphs % (Man) Cancelled Monocytes % (Manual) Cancelled Eosinophils % (Manual) Cancelled Basophils % (Manual) Cancelled Metamyelocytes % (Man) Cancelled Myelocytes % (Man) Cancelled Promyelocytes % (Man) Cancelled Blast Cells % (Manual) Cancelled Plasma Cell % (Manual) Cancelled Other Cells % Cancelled Nucleated RBC % Cancelled Neutrophils # (Manual) Cancelled Band Neutrophils # Cancelled Total Absolute Neuts Cancelled Lymphocytes # (Manual) Cancelled Prolymphocyte # Cancelled Reactive Lymphs # Cancelled Total Abs Lymphocytes Cancelled Monocytes # (Manual) Cancelled Eosinophils # (Manual) Cancelled Basophils # (Manual) Cancelled Metamyelocytes # (Man) Cancelled Myelocytes # (Manual) Cancelled Promyelocytes # (Man) Cancelled Blast Cells # (Man) Cancelled Plasma Cell # (Manual) Cancelled Other Cells # Cancelled Nucleated RBCs # (Man) Cancelled Hypersegmented Neuts Cancelled Hyposegmented Neuts Cancelled Hypogranular Neuts Cancelled Large Granular Lymphs Cancelled # Lrg Granular Lymphs Cancelled Hairy Cells Cancelled Smudge Cells Cancelled Toxic Granulation Cancelled Toxic Vacuolation Cancelled Dohle Bodies Cancelled Jen Rods Cancelled Platelet Estimate Cancelled Hypogranular Platelets Cancelled Giant Platelets Cancelled Platelet Satelliting Cancelled RBC Morphology Cancelled Polychromasia Cancelled Hypochromasia Cancelled Poikilocytosis Cancelled Basophilic Stippling Cancelled Anisocytosis Cancelled Microcytosis Cancelled Macrocytosis Cancelled Spherocytes Cancelled Pappenheimer Bodies Cancelled Sickle Cells Cancelled Target Cells Cancelled Tear Drop Cells Cancelled Ovalocytes Cancelled Stomatocytes Cancelled Roberts-Hillburn Bodies Cancelled Echinocytes Cancelled Acanthocytes (Spur) Cancelled Rouleaux Cancelled RBC Agglutinates Cancelled Schistocytes Cancelled Sezary Cell Cancelled PT Cancelled INR Cancelled APTT Cancelled PTT Ratio Cancelled VBG pH (7.36-7.41) VBG pCO2 (38-50) mmHg VBG pO2 mmHg VBG HCO3 mmol/L VBG O2 Saturation % VBG Base Excess mEq/L Sodium 137 (136-145) mmol/L Potassium 3.5 (3.5-5.1) mmol/L Chloride 101 (98-107) mmol/L Carbon Dioxide 27 (21-32) mmol/L Anion Gap 9 (3-11) BUN 23 (6-23) mg/dl Creatinine 0.84 (0.6-1.2) mg/dl Est Cr Clr Drug Dosing 52.9 ml/min Est GFR ( Amer) 74.0 ml/min Est GFR (Non-Af Amer) 63.8 ml/min BUN/Creatinine Ratio 27.4 H (10-20) Glucose 132 H (70-99(Fasting)) mg/dl POC Glucose 133 H (70-99) mg/dl Calcium 8.8 (8.6-10.3) mg/dl Total Bilirubin 0.4 (0.2-1.0) mg/dl AST 14 (13-39) U/L ALT 7 (7-52) U/L Alkaline Phosphatase 48 (34-104) U/L Troponin I High Sens 21.0 H (0-14) pg/ml B-Natriuretic Peptide 178 H (0-100) pg/ml Total Protein 6.0 (6.0-8.3) gm/dl Albumin 3.7 (3.4-5.0) gm/dl Globulin 2.3 L (2.5-4.0) gm/dl Albumin/Globulin Ratio 1.6 (0.9-2) Urine Color Urine Appearance (Clear) Urine pH (4.5-7.5) Ur Specific [place] (1.000-1.030) Urine Protein (Negative) Urine Glucose (UA) (Negative) Urine Ketones (Negative) Urine Blood (Negative) Urine Nitrite (Negative) Urine Bilirubin (Negative) Urine Urobilinogen (Negative) Ur Leukocyte Esterase (Negative) Urine WBC (Auto) (0-5) /hpf Urine RBC (Auto) (0-2) /hpf U Hyaline Cast (Auto) (0-2) /lpf U Epithel Cells (Auto) (0-2) /hpf Urine Bacteria (Auto) (None Seen) SARS-CoV-2 (PCR) NEGATIVE (Negative) Influenza Type A (PCR) Negative (Neg) Influenza Type B (PCR) Negative (Neg) RSV (RT-PCR) Negative (Neg) Blood Parasites ID Cancelled 07/30/24 07/30/24 07/30/24 Range/Units 15:25 15:26 16:21 WBC RBC Hgb Hct MCV MCH MCHC RDW Std Deviation RDW Coeff of Giuseppe Plt Count MPV Immature Gran % (Auto) Neut % (Auto) Lymph % (Auto) [place] % (Auto) Eos % (Auto) Baso % (Auto) Neut # (Auto) Lymph # (Auto) [place] # (Auto) Eos # (Auto) Baso # (Auto) Immature Gran # (Auto) Absolute Nucleated RBC Nucleated RBC % (auto) Neutrophils % (Manual) Band Neutrophils % Lymphocytes % (Manual) Prolymphocyte % Reactive Lymphs % (Man) Monocytes % (Manual) Eosinophils % (Manual) Basophils % (Manual) Metamyelocytes % (Man) Myelocytes % (Man) Promyelocytes % (Man) Blast Cells % (Manual) Plasma Cell % (Manual) Other Cells % Nucleated RBC % Neutrophils # (Manual) Band Neutrophils # Total Absolute Neuts Lymphocytes # (Manual) Prolymphocyte # Reactive Lymphs # Total Abs Lymphocytes Monocytes # (Manual) Eosinophils # (Manual) Basophils # (Manual) Metamyelocytes # (Man) Myelocytes # (Manual) Promyelocytes # (Man) Blast Cells # (Man) Plasma Cell # (Manual) Other Cells # Nucleated RBCs # (Man) Hypersegmented Neuts Hyposegmented Neuts Hypogranular Neuts Large Granular Lymphs # Lrg Granular Lymphs Hairy Cells Smudge Cells Toxic Granulation Toxic Vacuolation Dohle Bodies Jen Rods Platelet Estimate Hypogranular Platelets Giant Platelets Platelet Satelliting RBC Morphology Polychromasia Hypochromasia Poikilocytosis Basophilic Stippling Anisocytosis Microcytosis Macrocytosis Spherocytes Pappenheimer Bodies Sickle Cells Target Cells Tear Drop Cells Ovalocytes Stomatocytes Roberts-Hillburn Bodies Echinocytes Acanthocytes (Spur) Rouleaux RBC Agglutinates Schistocytes Sezary Cell PT 10.6 INR 1.0 APTT 24 PTT Ratio 0.9 VBG pH 7.32 L (7.36-7.41) VBG pCO2 61 H (38-50) mmHg VBG pO2 24 mmHg VBG HCO3 31 mmol/L VBG O2 Saturation < 60.0 % VBG Base Excess 3.6 mEq/L Sodium (136-145) mmol/L Potassium (3.5-5.1) mmol/L Chloride (98-107) mmol/L Carbon Dioxide (21-32) mmol/L Anion Gap (3-11) BUN (6-23) mg/dl Creatinine (0.6-1.2) mg/dl Est Cr Clr Drug Dosing ml/min Est GFR ( Amer) ml/min Est GFR (Non-Af Amer) ml/min BUN/Creatinine Ratio (10-20) Glucose (70-99(Fasting)) mg/dl POC Glucose (70-99) mg/dl Calcium (8.6-10.3) mg/dl Total Bilirubin (0.2-1.0) mg/dl AST (13-39) U/L ALT (7-52) U/L Alkaline Phosphatase (34-104) U/L Troponin I High Sens 22.6 H (0-14) pg/ml B-Natriuretic Peptide (0-100) pg/ml Total Protein (6.0-8.3) gm/dl Albumin (3.4-5.0) gm/dl Globulin (2.5-4.0) gm/dl Albumin/Globulin Ratio (0.9-2) Urine Color Yellow Urine Appearance Clear (Clear) Urine pH 5.5 (4.5-7.5) Ur Specific [place] 1.015 (1.000-1.030) Urine Protein Trace H (Negative) Urine Glucose (UA) Negative (Negative) Urine Ketones Negative (Negative) Urine Blood Negative (Negative) Urine Nitrite Positive A (Negative) Urine Bilirubin Negative (Negative) Urine Urobilinogen Negative (Negative) Ur Leukocyte Esterase Trace H (Negative) Urine WBC (Auto) 0-5 (0-5) /hpf Urine RBC (Auto) 0-2 (0-2) /hpf U Hyaline Cast (Auto) 3-5 H (0-2) /lpf U Epithel Cells (Auto) 0-2 (0-2) /hpf Urine Bacteria (Auto) 4+ H (None Seen) SARS-CoV-2 (PCR) (Negative) Influenza Type A (PCR) (Neg) Influenza Type B (PCR) (Neg) RSV (RT-PCR) (Neg) Blood Parasites ID Imaging Data Attestation: I personally reviewed and interpreted this imaging study as follows: My Impression: 1 view chest x-ray was obtained in the emergency department. My interpretation is no free air or definite infiltrate, final report below. CT the brain was obtained in the emergency department. My interpretation is no intracranial hemorrhage or mass effect, final report below. Radiologist's Impression: Chest X-Ray 07/30/24 14:05 XR chest 1V not portable HISTORY: 84 years-old Female Chest pain, nonspecific COMPARISON: 07/01/2024 TECHNIQUE: AP view of the chest FINDINGS: Cardiac silhouette is enlarged. Dual-lead left subclavian pacer. Right IJ [id number] catheter. Aortic endograft again noted. Vascular congestion with interstitial coarsening. Trace pleural effusions. Chronic lateral right-sided rib fractures. Degenerative changes of the shoulders and spine. IMPRESSION: 1. Cardiomegaly with suggestion of interstitial pulmonary edema. 2. Trace pleural effusions. ACT 112: Negative or not required by law. The above report was generated using voice recognition software. It may contain grammatical, syntax or spelling errors. Electronically signed by: Zane Portillo M.D. 07/30/2024 2:[address] 07/30/24 14:26 CT OF THE HEAD WITHOUT CONTRAST CLINICAL HISTORY: Altered mental status. Multiple myeloma. COMPARISON STUDY: MRI of the brain April 14, 2007. Head CT July 10, 2022. CT DOSE: 547.75 mGy.cm TECHNIQUE: Helical axial images of the head were obtained without IV contrast. Automated exposure control was utilized for the study. A dose lowering technique was utilized adhering to the principles of ALARA. FINDINGS: No acute intracranial hemorrhage, midline shift or mass effect is present. A few subcortical hypodensities within the right frontal and parietal lobes are new since prior CT. Otherwise, the appearance of the brain is unchanged. The ventricular system is unremarkable. The basal cisterns are patent. No extra-axial collections are present. There are no findings to suggest acute dural sinus thrombosis or acute territorial infarct. There are air-fluid levels within the bilateral maxillary sinuses. There is mild right ethmoid sinus mucosal thickening. Numerous lytic calvarial lesions are similar to prior CT. IMPRESSION: 1. No acute intracranial hemorrhage. A few subcortical hypodensities within the right frontal and parietal lobes which are new since prior CT. Subacute to chronic infarcts are favored. Underlying lesions are considered less likely although could be assessed with MRI of the brain with and without contrast. 2. Air-fluid levels within the bilateral maxillary sinuses. This may reflect acute sinusitis. 3. No significant change in numerous lytic calvarial lesions consistent with known history of multiple myeloma. ACT 112: Negative or not required by law. Electronically signed by: Bhargav Steve M.D. 07/30/2024 4:07 PM Discharge Plan Visit Data Chief Complaint: Confusion ED Provider: Vinod Carmichael Discharge Problem: Acute alteration in mental status, Acute respiratory acidosis, Elevated troponin I level, Hypoxia Patient Disposition: Being Evaluated by Hospitalist Forms Stand Alone Forms: My [facility] Prescriptions Prescriptions: No Action Xgeva 120 mg/1.7 mL (70 mg/mL) solution 120 mg subcut .Q3 months (DME) Wheeled Walker Misc See Rx Instructions .Route Qty: 1 0RF Rx Instructions: WALKER WITH WHEELS AND SEAT LENGTH OF NEEDS: 99 MONTHS (DME) OneTouch Ultra Test Strip See Rx Instructions .Route Qty: 100 3RF Rx Instructions: check BS 1 x day dexamethasone 4 mg tablet 20 mg PO WK Hold Instructions: Resume on 04/11/24. Discuss with Dr. Allen Rx Instructions: THURSDAYS (DME) Briefs, Adult-Extra Large Misc See Rx Instructions .Route Qty: 120 5RF Rx Instructions: Use up to 4 briefs daily for diarrhea (DME) latex gloves [Latex Gloves, Large] Misc See Rx Instructions .Route Qty: 100 5RF Rx Instructions: use 4 pairs of gloves daily (DME) incontinence pad, liner, disp Pad See Rx Instructions .Route Qty: 100 5RF Rx Instructions: use up to 4 pads daily Phospha 250 Neutral 250 mg tablet 1 tab PO BID oxycodone 5 mg tablet 5 - 10 mg PO Q4 PRN (Reason: Pain) (DME) Oxygen Home Liters Per Minute See Rx Instructions .Route Rx Instructions: As directed- 2 l nc at HS acetaminophen 325 mg Tablet 650 mg PO Q4H PRN (Reason: fever or pain) Qty: 30 0RF nystatin [Nystop] 100,000 unit/gram Powder 1 applic EXT TID PRN (Reason: rash in skin folds) Qty: 30 0RF multivitamin Tablet 1 tab PO QAM Qty: 30 0RF venlafaxine 75 mg capsule,extended release 24hr 75 mg PO QAM Qty: 30 0RF cyanocobalamin (vitamin B-12) 100 mcg Tablet 100 mcg PO QAM Qty: 30 0RF loperamide [Imodium A-D] 2 mg capsule 2 mg PO QID PRN (Reason: Diarrhea) 30 Days Qty: 60 0RF atorvastatin 10 mg tablet 10 mg PO QAM Qty: 90 0RF albuterol sulfate 1.25 mg/3 mL solution for nebulization 1.25 mg inhalation QID PRN (Reason: shortness of breath or wheezing) Qty: 90 1RF venlafaxine 150 mg capsule,extended release 24hr 150 mg PO QPM Qty: 30 0RF potassium chloride 10 mEq tablet extended release 10 meq PO AMHS 30 Days Qty: 30 0RF calcium carbonate-vitamin D3 [Calcium 600 + D(3)] 600 mg-5 mcg (200 unit) Tablet 1 tab PO QAM 30 Days Qty: 30 0RF pantoprazole 40 mg tablet,delayed release (DR/EC) 40 mg PO DAILY 30 Days Qty: 30 0RF Phospha 250 Neutral 250 mg tablet 1 tab PO AMHS 30 Days Qty: 30 0RF albuterol sulfate 90 mcg/actuation HFA aerosol inhaler 2 inh inhalation Q6 PRN (Reason: Shortness Of Breath) Qty: 1 0RF loratadine 10 mg tablet 10 mg PO QAM 30 Days Qty: 30 0RF metoprolol tartrate 25 mg tablet 25 mg PO BID Qty: 180 0RF cholecalciferol (vitamin D3) 2,000 unit tablet 1,000 unit PO QAM Qty: 30 0RF lidocaine 5 % adhesive patch,medicated 1 patch TOP DAILY PRN (Reason: pain) Qty: 15 0RF Rx Instructions: leave on most painful area for 12 hrs aspirin 81 mg tablet,chewable 81 mg PO QAM prochlorperazine maleate 10 mg tablet 10 mg PO Q6 PRN (Reason: Nausea) furosemide 20 mg tablet 20 mg PO QAM fentanyl 50 mcg/hr Patch 72 Hour 1 patch TRANSDERMAL Q72H Referrals Referrals: Sachi Soni DO [Primary Care Provider] -
[2024-07-30 14:37] LABS: Albumin Globulin Ratio 1.6 (0.9-2); Albumin Level 3.7 gm/dl (3.4-5.0); BUN Creatinine Ratio 27.4 (10-20); Bilirubin,Total 0.4 mg/dl (0.2-1.0); Calcium 8.8 mg/dl (8.6-10.3); Creatinine Clr Calc Pharmacy 52.9 ml/min; Est GFR (Non-African American) 63.8 ml/min; Globulin 2.3 gm/dl (2.5-4.0); Potassium 3.5 mmol/L (3.5-5.1)
--- NOTE | 2024-07-30 14:41 | XRay Report ---
XR chest 1V not portable HISTORY: 84 years-old Female Chest pain, nonspecific COMPARISON: 07/01/2024 TECHNIQUE: AP view of the chest FINDINGS: Cardiac silhouette is enlarged. Dual-lead left subclavian pacer. Right IJ [id number] catheter. Aor tic endograft again noted. Vascular congestion with interstitial coarsening. Trace pleural effusions. Chronic lateral right-sided rib fractures. Degenerative changes of the shoulders and spine. IMPRESSION: 1. Cardiomegaly with suggestion of interstitial pulmonary edema. 2. Trace pleural effusions. ACT 112: Negative or not required by law. The above report was generated using voice recognition software. It may contain grammatical, syntax o r spelling errors. Electronically signed by: Zane Portillo M.D. 07/30/2024 2:40 PM
[2024-07-30 14:58] LABS: Influenza A virus by PCR Negative (Neg); Influenza B virus by PCR Negative (Neg); RSV by PCR Negative (Neg); SARS CoV2 RNA(COVID-19) Ceph NEGATIVE (Negative)
[2024-07-30 15:45] LABS: Base Excess VBG 3.6 mEq/L; HCO3 VBG 31 mmol/L; Oxygen Saturation VBG < 60.0 %; PCO2 VBG 61 mmHg (38-50); PO2 VBG 24 mmHg; pH VBG 7.32 (7.36-7.41)
--- NOTE | 2024-07-30 16:10 | CT Scan Report ---
CT OF THE HEAD WITHOUT CONTRAST CLINICAL HISTORY: Altered mental status. Multiple myeloma. COMPARISON STUDY: MRI of the brain April 14, 2007. Head CT July 10, 2022. CT DOSE: 547.75 mGy.cm TECHNIQUE: Helical axial images of the head were obtained without IV contrast. Automated exposure con trol was utilized for the study. A dose lowering technique was utilized adhering to the principles o f ALARA. FINDINGS: No acute intracranial hemorrhage, midline shift or mass effect is present. A few subcortica l hypodensities within the right frontal and parietal lobes are new since prior CT. Otherwise, the ap pearance of the brain is unchanged. The ventricular system is unremarkable. The basal cisterns are pa tent. No extra-axial collections are present. There are no findings to suggest acute dural sinus thro mbosis or acute territorial infarct. There are air-fluid levels within the bilateral maxillary sinuse s. There is mild right ethmoid sinus mucosal thickening. Numerous lytic calvarial lesions are similar to prior CT. IMPRESSION: 1. No acute intracranial hemorrhage. A few subcortical hypodensities within the right frontal and par ietal lobes which are new since prior CT. Subacute to chronic infarcts are favored. Underlying lesion s are considered less likely although could be assessed with MRI of the brain with and without contra st. 2. Air-fluid levels within the bilateral maxillary sinuses. This may reflect acute sinusitis. 3. No significant change in numerous lytic calvarial lesions consistent with known history of multipl e myeloma. ACT 112: Negative or not required by law. Electronically signed by: Bhargav Steve M.D. 07/30/2024 4:07 PM
[2024-07-30 16:24] LABS: Partial Thromboplastin Ratio 0.9; Partial Thromboplastin Time 24 Seconds (21-31); Prothrombin Time 10.6 Seconds (9.0-12.0)
[2024-07-30 16:45] LABS: Appearance Urine Clear (Clear); Bacteria Urine Automated 4+ (None Seen); Bilirubin Urine Negative (Negative); Blood Urine Negative (Negative); Color Urine Yellow; Epithelial Cell Urine Auto 0-2 /hpf (0-2); Glucose Urine UA Negative (Negative); Ketones Urine Negative (Negative); Leukocyte Esterase Urine Trace (Negative); Nitrite Urine Positive (Negative); Protein Urine Trace (Negative); RBC Urine Automated 0-2 /hpf (0-2); Specific Gravity Urine 1.015 (1.000-1.030); Urobilinogen Urine Negative (Negative); WBC Urine Automated 0-5 /hpf (0-5); pH Urine 5.5 (4.5-7.5)
[2024-07-30 16:52] LABS: Acanthocytes 2+; Basophils # (auto) 0.02 K/uL (0.00-0.20); Basophils % (auto) 0.4 %; Eosinophils # (auto) 0.08 K/uL (0.00-0.50); Eosinophils % (auto) 1.5 %; Hematocrit (blood only) 31.4 % (37.0-47.0); Hemoglobin 9.6 g/dl (12.0-16.0); Immature Granulocytes # (auto) 0.05 K/uL (0.01-0.20); Immature Granulocytes % (auto) 0.9 %; Lymphocytes # (auto) 0.45 K/uL (1.20-3.40); Lymphocytes % (auto) 8.4 %; Mean Corpuscular Hemoglobin 26.7 pg (25.0-34.0); Mean Corpuscular Hgb Conc 30.6 g/dL (32.0-36.0); Mean Corpuscular Volume 87.5 fL (80.0-100.0); Monocytes # (auto) 1.12 K/uL (0.11-0.59); Monocytes % (auto) 20.9 %; Neutrophils # (auto) 3.64 K/uL (1.40-6.50); Neutrophils % (auto) 67.9 %; Ovalocytes 1+; Platelet Count 84 K/uL (130-400); Platelet Estimate Decreased (Normal); Poikilocytosis Present; RDW Coefficient of Variation 17.7 % (11.5-14.5); RDW Standard Deviation 56.1 fL (36.4-46.3); Red Blood Count 3.59 M/uL (4.20-5.40); Schistocytes 1+; Tear Drop Cells 1+; White Blood Count 5.36 K/ul (4.8-10.8)
--- NOTE | 2024-07-30 17:05 | History & Physical Report ---
Date of Service July 30, 2024 Assessment & Plan (1) Goals of care, counseling/discussion: Plan: Altered mental status Multifactorial likely due to hypercapnia, UTI, and acute hypoxia from CHF exacerbation. Management of each etiology as below - Found pending Medivan pickup wandering around her house very confused. Per family report Patient does take pain medications right before appointments, so may have an element of narcosis. Respiratory rate is not suppressed, BiPAP at bedtime as ordered VBG's with mild acidosis, will trend and may use BiPAP as needed. Goals of care was reviewed with the patient although she does not demonstrate capacity at time of admitting assessment. Also reviewed with patient's daughter. Attempted to contact patient's son however he was unavailable by phone. Patient's daughter confirms DNR/DNI. NO ventilation under any circumstances, and no escalation of care or invasive procedures including central lines/ICU care. Biggest goals are comfort and pain control, although generally does well and does want admission for reversible conditions that affect her quality of life. Does want admission to the hospital for treatment of UTI, CHF, and CVA evaluation as noted. She is enrolled with hospice as outpatient and will continue this on discharge. (2) Acute on chronic diastolic CHF (congestive heart failure): Plan: Hypoxic respiratory failure due to HFpEF Last echo 01/2024: EF 50-55%, severe concentric LVH, bioprosthetic AV, moderate to severe mitral annular calcification Troponin minimally elevated, stable on repeat EKG: Ventricular paced rhythm Continue Lasix twice daily with potassium supplementation Quad screen is negative (3) CVA (cerebral vascular accident): Plan: ?Subacute/old CVA CThead with small hypodensities favoring subacute to chronic infarct new from prior. Patient is not a candidate for thrombolysis - MRI pending. - Aspirin 81mg.? DAPT versus transition to Plavix, patient is with prior hospital admissions for hematochezia/bleeding - Atorvastatin in creased to 40mg, lipid panel pending (4) UTI (urinary tract infection): Plan: UTI Urine infected appearing No history of resistant cultures Rocephin ordered on admission No leukocytosis Plan Chronic stable issues: Multiple myeloma/plasmacytoma/AIN: No acute change in management Complete heart block: S/p pacemaker placement DVT prophylaxis: Lovenox held for prior bleeding, thrombocytopenia. SCDs Disposition: PCU CODE STATUS: DNR/DNI Diet: Heart healthy History of Present Illness Primary Care Provider: Sachi Soni DO Golden is an 84-year-old female with a past medical history of heart failure with preserved ejection fraction, lower GI bleeding, EIN who was last seen 07/01/2024 for hematochezia and subsequently discharged following warfarin reversal and was euvolemic at that time who presents to the ER with confusion. Patient was dyspneic and hypoxic per EMS. On ER evaluation she is with increased oxygen requirements requiring 6 L to maintain saturation. VBG 7.3 / consistent with mild respiratory acidosis. Creatinine is at baseline. Troponin is minimally elevated at 21.0 repeat equivocal at 22.6, BNP elevated 178, UA is with 4+ bacteria, leukocyte esterase, nitrates and no contamination, quad screen is negative, and chest x-ray is with cardiomegaly and interstitial pulmonary edema and pleural effusions. CThead is with no acute hemorrhage, small hypodensities in the frontal/parietal lobes right favoring dill bacute to chronic infarcts; air-fluid levels possibly reflecting acute sinusitis is noted; numerous lytic calvarial lesions consistent with multiple myeloma are present. Patient seen at the bedside. Nondistressed. Limited history available from patient due to confusion. Patient denies fever, chills, sweats, chest pain, chest pressure, lightheadedness, dizziness, abdominal pain. She is in no distress, but she reports she does not know where she is or why she is here but is happy to be here. - Collateral from daughter: Was goign to have a cardiology followup appointment regarding a pacemaker checkin. She is established with [facility]. Was fatigued, but normal but not dis-tristressed or confused. Then when [facility] arrived [facility] arrived and pt was completely disoriented. Does have a history of sleep apnea and had her machine twiste dup last night and was confused due to her sleep apnea, but this was unusual for her and was normal this morning. Typically 'has her wits about her' with no issues with confusion. On homeon oxygen at night and as needed. Confirms DNR/DNI. NO ventilation under any circumstances, and no escalation of care or invasive procedures. Biggest goals are comfort and pain control, although maria de jesus does well and does want admission for reversable conditions that affect her quality of life Medical History: Reviewed Medications: Reviewed Surgical History: Reviewed Family history: Reviewed Allergies: Reviewed Social History: Code Status: Allergies Allergy/AdvReac Type Severity Reaction Status Date / Time No Known Allergies Allergy Verified 05/12/24 18:36 Home Medications Medication Instructions Recorded Confirmed Type Wheeled Walker #1 ea 05/19/22 07/21/24 Rx dexamethasone 4 mg tablet 20 mg PO WK 08/27/22 07/21/24 History diaper,brief,adult,disposable #120 ea 09/07/22 07/21/24 Rx (Briefs, Adult-Extra Large) incontinence pad, liner, disp #100 ea 09/07/22 07/21/24 Rx latex gloves (Latex Gloves, Large) #100 ea 09/07/22 07/21/24 Rx blood sugar diagnostic (OneTouch #100 ea 12/10/22 07/21/24 Rx Ultra Test strips) denosumab 120 mg/1.7 mL (70 mg/mL) 120 mg subcut .Q3 months 01/12/23 07/21/24 History subcutaneous solution (Xgeva) prochlorperazine maleate 10 mg 10 mg PO Q6 PRN Nausea 01/15/24 07/21/24 History tablet Oxygen Home 01/18/24 07/21/24 History acetaminophen 325 mg tablet 650 mg (2 x 325 mg) PO Q4H PRN 03/22/24 07/21/24 Rx fever or pain #30 tabs nystatin 100,000 unit/gram topical 1 applic EXT TID PRN rash in skin 03/22/24 07/21/24 Rx powder (Nystop) folds #30 grams albuterol sulfate 1.25 mg/3 mL 1.25 mg (3 mL) inhalation QID PRN 03/23/24 07/21/24 Rx solution for nebulization shortness of breath or wheezing #90 mL albuterol sulfate 90 mcg/actuation 2 inh inhalation Q6 PRN Shortness 03/23/24 07/21/24 Rx aerosol inhaler Of Breath #1 g atorvastatin 10 mg tablet 10 mg PO QAM #90 tabs 03/23/24 07/21/24 Rx calcium carbonate 600 mg-vitamin 1 tab PO QAM 30 days #30 tabs 03/23/24 07/21/24 Rx D3 5 mcg (200 unit) tablet (Calcium 600 + D(3)) cholecalciferol (vitamin D3) 50 1,000 unit PO QAM #30 tabs 03/23/24 07/21/24 Rx mcg (2,000 unit) tablet cyanocobalamin (vitamin B-12) 100 100 mcg PO QAM #30 tabs 03/23/24 07/21/24 Rx mcg tablet loperamide 2 mg capsule (Imodium 2 mg PO QID PRN Diarrhea 30 days 03/23/24 07/21/24 Rx A-D) #60 caps loratadine 10 mg tablet 10 mg PO QAM 30 days #30 tabs 03/23/24 07/21/24 Rx metoprolol tartrate 25 mg tablet 25 mg PO BID #180 tabs 03/23/24 07/21/24 Rx multivitamin 1 tab PO QAM #30 tabs 03/23/24 07/21/24 Rx pantoprazole 40 mg tablet,delayed 40 mg PO DAILY 30 days #30 tabs 03/23/24 07/21/24 Rx release potassium chloride 10 mEq 10 meq PO AMHS 30 days #30 tabs 03/23/24 07/21/24 Rx tablet,extended release sodium di- and 1 tab PO AMHS 30 days #30 tabs 03/23/24 07/21/24 Rx monophosphate-potassium phos monobasic 250 mg tablet (Phospha Neutral) venlafaxine 150 mg 150 mg PO QPM #30 caps 03/23/24 07/21/24 Rx capsule,extended release 24 hr venlafaxine 75 mg capsule,extended 75 mg PO QAM #30 caps 03/23/24 07/21/24 Rx release 24 hr oxycodone 5 mg tablet 5 - 10 mg PO Q4 PRN Pain 04/23/24 07/21/24 History sodium di- and 1 tab PO BID 04/23/24 07/21/24 History monophosphate-potassium phos monobasic 250 mg tablet (Phospha Neutral) lidocaine 5 % topical patch 1 patch topical DAILY PRN pain #15 05/12/24 07/21/24 Rx ea fentanyl 50 mcg/hr transdermal 1 patch transdermal Q72H 07/01/24 07/21/24 History patch furosemide 20 mg tablet 20 mg PO QAM 07/01/24 07/21/24 History aspirin 81 mg chewable tablet 81 mg PO QAM 07/21/24 07/21/24 History Past Med/Surg History Problem List (Updated 07/30/24 @ 17:00 by Kulwinder Magallanes MD) CVA (cerebral vascular accident) UTI (urinary tract infection) Goals of care, counseling/discussion Hypoxia (Acute) Elevated troponin I level (Acute) Acute respiratory acidosis (Acute) Acute alteration in mental status (Acute) Abdominal pain (Acute) Supratherapeutic INR (Acute) Chest pain (Acute) Myeloma Candidal esophagitis S/P TAVR (transcatheter aortic valve replacement) History of pulmonary embolism Acute blood loss anemia Acute on chronic diastolic CHF (congestive heart failure) Exertional dyspnea (Acute) Reactive airway disease History of compression fracture of spine (~07/10/22) chronic inferior endplate compression deformity of L3 and the superior end plate compression deformity of L5 Hypomagnesemia Vitamin D deficiency Palliative care encounter GIB (gastrointestinal bleeding) (Acute) Anemia (Acute) Chronic diarrhea (HFpEF) heart failure with preserved ejection fraction Lumbar radiculopathy Left leg pain Depression Osteopenia after menopause Endometrial intraepithelial neoplasia (EIN) Complete heart block (Chronic) 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 Multiple myeloma Medical History Hypercoagulable state Coronary artery disease Cardiac pacemaker (2017) Morbid obesity with BMI of 50.0-59.9, adult Aortic stenosis CHF exacerbation Pancytopenia Acute on chronic respiratory failure with hypoxia Sepsis Pneumonia due to 2019 novel coronavirus Morbid obesity Post-menopausal bleeding Degenerative disc disease Osteoarthritis Hyperlipidemia Diabetes mellitus, type 2 NIDDM History of seizure last seizure 1995 Sleep apnea CPAP + 2 LPM O2 qhs Urinary leakage Basal cell carcinoma face Cervical radiculopathy Positional vertigo Post herpetic neuralgia hx shingles Hemorrhoids Pulmonary embolism years ago (no definitive etiology)- on warfarin 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; s/p surgery, radiation, chemo (receiving weekly oral/IV chemo Fridays + dexamethasone 40mg pretreatment prior to chemo) Anxiety Fracture, humerus Surgical History Aortic valve replaced History of surgery right distal humerus replacement S/P tubal ligation S/P tooth extraction History of endometrial biopsy S/P dilation and curettage History of cataract surgery Bilateral History of tonsillectomy History of appendectomy History of bilateral carpal tunnel release History of cholecystectomy History of knee replacement procedure of left knee History of knee replacement procedure of right knee H/O surgical biopsy Right distal humerus 11/21/18 Family History Mother , 89yo Myocardial infarction Congestive heart failure Father , Pt unsure of details of father's health history;Knows he had facial cancer Malignant neoplasm of oral cavity Sister , May 2019 of copd Diabetes Breast cancer Son Hypertension Grandmother Diabetes Denies family history of Prostate cancer Lung cancer Colorectal cancer Social History Smoking Status: Never smoker Second Hand Exposure: No; Do You Dip or Chew Tobacco: No; Hx Alcohol Use: No Hx Substance Use: No Preferred Language: Serbian Communication Ability: Effective Visual Impairment: No Limitations Hearing Ability: Normal Gambling Broker Required: No Beliefs That Will Affect Care: None marital status: / Current Living Situation: Alone Current Living Situation Comment: lives with son and [id number]-wyo current occupational status: retired 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 Pleasantly confused. NAD. Cooperative. HEENT: Atraumatic, normocephalic. Vision and hearing grossly intact Pulm: Diminished, +bibasilar crackles Symmetrical chest rise. No increased work of breathing. No respiratory distress. Cardiac: RRR, -mrg. Radial pulses intact and symmetrical. Abdominal: Nontender, nondistended, soft. BS present. Results & Data Results & Data Vital Signs (Past 12 Hours) Vital Signs Temp Pulse Pulse Resp BP BP Pulse Ox 07/30/24 16:07 143/80 H 07/30/24 15:45 99 07/30/24 15:45 97 07/30/24 15:44 78 20 123/90 99 07/30/24 13:40 82 07/30/24 13:16 37.0 C 86 20 148/116 H 97 O2 Del Method O2 Flow Rate 07/30/24 16:07 07/30/24 15:45 Nasal Cannula 6 07/30/24 15:45 Nasal Cannula 3 07/30/24 15:44 Nasal Cannula 3 07/30/24 13:40 07/30/24 13:16 Nasal Cannula 5 PG Care Time/CCT Total # of Minutes Spent Total Time Spent with Patient: Total time spent is greater than 50% in coordination of care (as documented) at patient's floor/unit and/or counseling patient: Coding Level of Care Code 28256 INT INP/OBS CARE 3/75MIN Diagnoses Goals of care, counseling/discussion Z71.89 Acute on chronic diastolic CHF (congestive heart failure) I50.33 CVA (cerebral vascular accident) I63.9 UTI (urinary tract infection) N39.0
[2024-07-30] MEDS: cefTRIAXone SODIUM 2,000 MG/50 ML BAG IV STA (17:22)
[2024-07-30 17:25] LABS: Amphetamines+Metham, Urine Neg (Neg); Barbiturates, Urine Neg (Neg); Benzodiazepine, Urine Neg (Neg); Cocaine, Urine Neg (Neg); Fentanyl, Urine Pos (Neg); MDMA (Ecstacy), Urine Neg (Neg); Marijuana, Urine Neg (Neg); Methadone, Urine Neg (Neg); Opiate, Urine Pos (Neg); Phencyclidine, Urine Neg (Neg)
--- NOTE | 2024-07-30 18:59 | Electrocardiogram Report ---
Test Reason : Blood Pressure : */* mmHG Vent. Rate : 67 BPM Atrial Rate : 67 BPM P-R Int : * ms QRS Dur : 154 ms QT Int : 446 ms P-R-T Axes : 64 256 77 degrees QTcB Int : 471 ms AV sequential or dual chamber electronic pacemaker Abnormal ECG When compared with ECG of 01-Jul-2024 14:38, Vent. rate has decreased by 4 bpm Confirmed by Fernando Burnett ([id number]) on 07/30/2024 6:58:52 PM Referred By: REFERRED SELF Confirmed By: Fernando Burnett
[2024-07-30] MEDS: METOPROLOL TARTRATE 25 MG TAB PO SCH (22:32)
[2024-07-30] MEDS: POT PHOSPHATE MONOBASIC W/ SOD TAB PO SCH (22:33)
[2024-07-30] MEDS: POTASSIUM CHLORIDE 10 MEQ TABCR PO SCH (22:33)
[2024-07-30] MEDS: VENLAFAXINE HCL XR 150 MG CAPXR PO SCH (22:34)
[2024-07-30] MEDS: oxyCODONE HCL IR 5 MG TAB (IMMEDIATE RELEASE) PO PRN (22:35)
[2024-07-30] MEDS: ACETAMINOPHEN 325 MG TAB PO PRN (22:35)
[2024-07-30] MEDS: FUROSEMIDE 40 MG/4 ML VIAL IV SCH (22:36)
[2024-07-31 07:23] LABS: Hemoglobin 9.3 g/dl (12.0-16.0); Mean Corpuscular Hemoglobin 27.1 pg (25.0-34.0); Mean Corpuscular Volume 87.5 fL (80.0-100.0); Platelet Count 80 K/uL (130-400); RDW Coefficient of Variation 17.8 % (11.5-14.5); RDW Standard Deviation 56.8 fL (36.4-46.3); Red Blood Count 3.43 M/uL (4.20-5.40); White Blood Count 3.84 K/ul (4.8-10.8)
[2024-07-31 07:38] LABS: Acanthocytes 1+; Basophils # (auto) 0.01 K/uL (0.00-0.20); Basophils % (auto) 0.3 %; Eosinophils % (auto) 2.6 %; Immature Granulocytes # (auto) 0.05 K/uL (0.01-0.20); Immature Granulocytes % (auto) 1.3 %; Lymphocytes # (auto) 0.55 K/uL (1.20-3.40); Lymphocytes % (auto) 14.3 %; Monocytes # (auto) 0.89 K/uL (0.11-0.59); Monocytes % (auto) 23.2 %; Neutrophils # (auto) 2.24 K/uL (1.40-6.50); Neutrophils % (auto) 58.3 %; Ovalocytes 1+; Tear Drop Cells 1+
[2024-07-31 07:43] LABS: BUN Creatinine Ratio 19.6 (10-20); Calcium 8.3 mg/dl (8.6-10.3); Chol HDL Ratio 2.6 (0-5); Creatinine Clr Calc Pharmacy 45.6 ml/min; Est GFR (African American) 62.2 ml/min; Est GFR (Non-African American) 53.6 ml/min; Potassium 3.7 mmol/L (3.5-5.1)
[2024-07-31] MEDS: PANTOprazole 40 MG TAB PO SCH (08:47)
[2024-07-31] MEDS: VENLAFAXINE HCL XR 75 MG CAPXR PO SCH (08:48)
[2024-07-31] MEDS: ATORVASTATIN 40 MG TAB PO SCH (08:48)
[2024-07-31] MEDS: ASPIRIN 81 MG ECTAB PO SCH (08:48)
--- NOTE | 2024-07-31 12:57 | Hospitalist Progress Note ---
Date of Service July 31, 2024 Assessment & Plan (1) Goals of care, counseling/discussion: Plan: Acute metabolic encephalopathy Multifactorial likely due to hypercapnia, UTI, and acute hypoxia from CHF exacerbation. Management of each etiology as below - Found pending Medivan pickup wandering around her house very confused. Per family report Patient does take pain medications right before appointments, so may have an element of narcosis. Respiratory rate is not suppressed, BiPAP at bedtime as ordered VBG's with mild acidosis, will trend and may use BiPAP as needed. Goals of care was reviewed with the patient although she does not demonstrate capacity at time of admitting assessment. Also reviewed with patient's daughter. Attempted to contact patient's son however he was unavailable by phone. Patient's daughter confirms DNR/DNI. NO ventilation under any circumstances, and no escalation of care or invasive procedures including central lines/ICU care. Biggest goals are comfort and pain control, although generally does well and does want admission for reversible conditions that affect her quality of life. Does want admission to the hospital for treatment of UTI, CHF, and CVA evaluation as noted. She is enrolled with hospice as outpatient and will continue this on discharge. (2) Acute on chronic diastolic CHF (congestive heart failure): Plan: Hypoxic respiratory failure due to HFpEF Last echo 01/2024: EF 50-55%, severe concentric LVH, bioprosthetic AV, moderate to severe mitral annular calcification Troponin minimally elevated, stable on repeat EKG: Ventricular paced rhythm Continue Lasix twice daily with potassium supplementation Quad screen is negative (3) CVA (cerebral vascular accident): Plan: Questionable Subacute/old CVA CThead with small hypodensities favoring subacute to chronic infarct new from prior. Patient is not a candidate for thrombolysis - MRI Requested, result pending - Aspirin 81mg.? DAPT versus transition to Plavix, patient is with prior hospital admissions for hematochezia/bleeding - Atorvastatin in creased to 40mg, lipid panel pending (4) UTI (urinary tract infection): Plan: UTI Urine infected appearing No history of resistant cultures Rocephin ordered on admission No leukocytosis (5) Acute metabolic encephalopathy: (6) Morbid obesity with BMI of 45.0-49.9, adult: Plan Chronic stable issues: Multiple myeloma/plasmacytoma/AIN: No acute change in management Complete heart block: S/p pacemaker placement DVT prophylaxis: Lovenox held for prior bleeding, thrombocytopenia. SCDs Disposition: PCU CODE STATUS: DNR/DNI Diet: Heart healthy Admission and Anticipated Discharge Date Admission Date: July 30, 2024 Subjective Patient seen and examined, Awake and alert, feels better. Review of Systems Review of Systems: All systems reviewed are negative, apart from the ones contained in the history. Physical Exam Physical Exam: The patient is awake, alert and oriented 3, well developed and well nourished, normocephalic and atraumatic, lying in bed and in no acute distress. HEENT--PERRL, EOMI, mucous membranes and oropharynx mildly dry Neck--supple. No JVD. No bruits. Thyroid normal, trachea midline, no adenopathy. Heart--normal S1 and S2. No murmurs, rubs or gallops. Lungs--clear bilaterally, no respiratory distress, no accessory muscle use. Abdomen--normal bowel sounds and soft. Extremities--no cyanosis or clubbing. No edema. Dermatologic--normal skin turgor, normal color, no abnormal lymph nodes, no rash. Neurologic--cranial nerves II through XII grossly intact. Rheumatologic--normal range of motion. Psychiatric--normal affect. Results & Data Results & Data Vital Signs (Past 12 Hours) Vital Signs Temp Pulse Pulse Resp BP Pulse Ox O2 Del Method 07/31/24 09:02 Room Air 07/31/24 07:28 77 31 H 90 07/31/24 07:23 97.7 F 75 18 101/65 93 Room Air 07/31/24 07:18 69 07/31/24 04:38 80 18 96 07/31/24 04:26 98.6 F 77 19 134/77 95 BiPAP O2 Flow Rate 07/31/24 09:02 07/31/24 07:28 3 07/31/24 07:23 07/31/24 07:18 07/31/24 04:38 2 07/31/24 04:26 PG Care Time/CCT Total # of Minutes Spent Total Time Spent with Patient: Total time spent is greater than 50% in coordination of care (as documented) at patient's floor/unit and/or counseling patient: Coding Level of Care Code 99626 SUB INP/OBS CARE 2/35MIN Diagnoses Goals of care, counseling/discussion Z71.89 Acute on chronic diastolic CHF (congestive heart failure) I50.33 CVA (cerebral vascular accident) I63.9 UTI (urinary tract infection) N39.0 Acute metabolic encephalopathy G93.41 Morbid obesity with BMI of 45.0-49.9, adult E66.01; Z68.42 Time Spent (min) 35
--- NOTE | 2024-07-31 14:06 | Magnetic Resonance Report ---
MRI OF THE BRAIN WITHOUT CONTRAST CLINICAL HISTORY: Cerebrovascular accident. Confusion. COMPARISON STUDY: MRI of the brain April 14, 2007. Head CT July 30, 2024. TECHNIQUE: Utilizing a 1.5 Isha magnet and dedicated coil, multiplanar, multiecho imaging of the bra in was performed without IV contrast. FINDINGS: There are no foci of restricted diffusion to suggest acute infarct. There are several subco rtical hyperintense foci within the right cerebral hemisphere on diffusion-weighted sequence which ar e also hyperintense on the ADC map. These correspond to the findings on head CT of July 30, 2024 . These favor subacute to chronic infarcts. There is no mass effect. Ventricular system is unremarkab le. Basal cisterns are patent. There are no extra axial collections. Flow-voids for the major intracr anial vessels are present. There is an air-fluid level within the right maxillary sinus. This bilater al maxillary sinus mucosal thickening. Multifocal marrow replacement is present within the skull base and upper cervical spine. Calvarial marrow signal is slightly diminished. IMPRESSION: 1. No acute intracranial findings. 2. Several subcortical foci of signal abnormality within the right cerebral hemisphere which correspo nd to the findings on head CT of July 30, 2024. The findings favor subacute to chronic infarcts. Follow-up noncontrast head CT in 2 months to ensure expected evolution is recommended. 3. Multifocal marrow replacement consistent with known history of multiple myeloma. ACT 112: Negative or not required by law. Electronically signed by: Bhargav Steve M.D. 07/31/2024 2:05 PM
[2024-07-31] MEDS: cefTRIAXone SODIUM 2,000 MG/50 ML BAG IV SCH (17:03)
[2024-08-01 07:20] LABS: BUN Creatinine Ratio 16.5 (10-20); Calcium 8.1 mg/dl (8.6-10.3); Creatinine Clr Calc Pharmacy 48.4 ml/min; Est GFR (African American) 67.1 ml/min; Est GFR (Non-African American) 57.9 ml/min; Potassium 3.3 mmol/L (3.5-5.1)
[2024-08-01 07:26] LABS: Hematocrit (blood only) 29.7 % (37.0-47.0); Hemoglobin 9.5 g/dl (12.0-16.0); Mean Corpuscular Hemoglobin 27.5 pg (25.0-34.0); Mean Corpuscular Volume 86.1 fL (80.0-100.0); Platelet Count 84 K/uL (130-400); RDW Coefficient of Variation 17.5 % (11.5-14.5); RDW Standard Deviation 54.8 fL (36.4-46.3); Red Blood Count 3.45 M/uL (4.20-5.40); White Blood Count 4.62 K/ul (4.8-10.8)
[2024-08-01 07:32] LABS: Acanthocytes 2+; Basophils # (auto) 0.02 K/uL (0.00-0.20); Basophils % (auto) 0.4 %; Eosinophils % (auto) 2.2 %; Immature Granulocytes # (auto) 0.03 K/uL (0.01-0.20); Immature Granulocytes % (auto) 0.6 %; Lymphocytes # (auto) 0.69 K/uL (1.20-3.40); Lymphocytes % (auto) 14.9 %; Monocytes # (auto) 0.91 K/uL (0.11-0.59); Monocytes % (auto) 19.7 %; Neutrophils # (auto) 2.87 K/uL (1.40-6.50); Neutrophils % (auto) 62.2 %; Ovalocytes 1+; Poikilocytosis Present; Polychromasia 1+; Tear Drop Cells 1+
--- NOTE | 2024-08-01 08:58 | Hospitalist Progress Note ---
Date of Service August 01, 2024 Assessment & Plan (1) Goals of care, counseling/discussion: Plan: - Acute metabolic encephalopathy - Multifactorial likely due to hypercapnia, UTI, and acute hypoxia from CHF exacerbation - Found pending Medivan pickup wandering around her house very confused. Per family report patient does take pain medications right before appointments, so may have an element of narcosis. - VBG's with mild acidosis on admission - Per admitting provider: - Patient does not demonstrate capacity at time of admitting assessment. Also reviewed with patient's daughter. Attempted to contact patient's son however he was unavailable by phone. - Patient's daughter confirms DNR/DNI. NO ventilation under any circumstances, and no escalation of care or invasive procedures including central lines/ICU care. - Biggest goals are comfort and pain control, although generally does well and does want admission for reversible conditions that affect her quality of life. - Does want admission to the hospital for treatment of UTI, CHF, and CVA evaluation as noted. - She is enrolled with hospice as outpatient. - Patient's daughter concerned with self medication compliance out patient and would like to discuss prison care. - Palliative consult placed (2) Acute on chronic diastolic CHF (congestive heart failure): Plan: - Hypoxic respiratory failure due to HFpEF Last echo 01/2024: EF 50-55%, severe concentric LVH, bioprosthetic AV, moderate to severe mitral annular calcification Troponin minimally elevated, stable on repeat EKG on admission: Ventricular paced rhythm Continue Lasix 40 mg IV twice daily with potassium supplementation - K+ 08/01 low at 3.3; additional 40 MeQ PO ordered Quad screen is negative - Monitor I/O's - Daily weights (3) CVA (cerebral vascular accident): Plan: - Questionable Subacute/old CVA - CThead with small hypodensities favoring subacute to chronic infarct new from prior; not a candidate for thrombolysis - MRI confirmed subacute/chronic infarct of right cerebral hemisphere - Continue Aspirin 81mg. 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 - increased calcific densities likely secondary to particle disease vs heterotopic ossification - possibly loosening of arthroplasty due to particle disease vs infectious process, although lucency seen on previous X-ray 05/12 - ortho consulted Plan Chronic stable issues: Multiple myeloma/plasmacytoma/AIN: No acute change in management Complete heart block: S/p pacemaker placement DVT prophylaxis: Lovenox held for prior bleeding, thrombocytopenia. SCDs CODE STATUS: DNR/DNI Diet: Heart healthy Admission and Anticipated Discharge Date Admission Date: July 30, 2024 Supervising Physician Co-Signing Physician Notes Patient was seen and examined independently I discussed the case with Sonia Fernandez PAC I reviewed pertinent past medical social family history and also the plan of care and agree with the plan of care. Patient has erythematous swollen right elbow she says this has been on for some time. Sonia Fernandez my PA did talk to the family and found out that she is got a previously known loosening of hardware from a joint replacement. However there is some concern this could be acutely infected will get a orthopedic consult to evaluate for possible aspiration although there is some consideration of limiting her care if this were to be an aspirate amenable to oral antibiotics this might be something to help her discomfort--UTI is E. coli continue Rocephin Acute on chronic diastolic heart failure continue diuresis patient is improving Any exceptions will be noted below Subjective Patient doing well today. She stated that she has increase in urinary frequency, although on Lasix. She denies dysuria. She is complaining of right elbow pain and warmth that began about 2 days ago. She has associated tingling but no numbness with the pain. She stated that she has an artificial joint that was placed a few years ago with williewali. She has minimal pain relief with 5 mg Oxycodone. Patient denies headache, dizziness, lightheadedness, rhinorrhea, sore throat, cough, sputum production, dyspnea, dyspnea on exertion, chest pain, abdominal pain, nausea, vomiting, diarrhea, constipation, dysuria, hematuria, edema. She has been out of bed with minimal difficulty. Spoke with patient's daughter, Meghana, on the phone. She stated that the patient had the justin placed into to her elbow in April 2019 due to a tumor eating away 2 inches of her bone. In May 2024 they found that there was a shift in the justin with a cement fracture, Along with wrist fracture and bone loosening of the right wrist. There was also demineralization seen on x-ray with concern for tumor regrowth. The patient was on oxy 5 mg 4 times a day with minimal relief in the past. She was transitioned to a fentanyl patch with relief on comfort care. She has no interested in surgical fixation of the elbow. The patient's daughter is concerned that the patient will continue to have poor self medication at home with home care and is interested in a prison care facility. Review of Systems Review of Systems: See HPI Physical Exam Physical Exam: The patient is awake, alert and oriented 3, obese, normocephalic and atraumatic, in no acute distress. Non-toxic appearing. HEENT- EOMI, mucous membranes moist. Hearing grossly intact. Heart-normal S1 and S2. No murmurs, rubs or gallops. Lungs-clear bilaterally, no respiratory distress, no accessory muscle use. Abdomen-normal bowel sounds and soft. No ascites noted. Non-tender. Extremities- no clubbing, cyanosis, or edema. Erythema. warmth, and swelling to right elbow. Psychiatric-normal affect. Results & Data Results & Data Vital Signs (Past 12 Hours) Vital Signs Temp Pulse Pulse Resp BP Pulse Ox O2 Del Method 08/01/24 03:17 82 19 92 08/01/24 02:35 36.5 C 75 18 108/65 98 CPAP 07/31/24 23:01 81 15 98 07/31/24 22:32 36.7 C 67 18 98/62 L 93 Room Air 07/31/24 22:26 80 O2 Flow Rate 08/01/24 03:17 2 08/01/24 02:35 07/31/24 23:01 2 07/31/24 22:32 07/31/24 22:26 PG Care Time/CCT Total # of Minutes Spent Total Time Spent with Patient: Total time spent is greater than 50% in coordination of care (as documented) at patient's floor/unit and/or counseling patient: Coding Level of Care Code None Diagnoses Goals of care, counseling/discussion Z71.89 Acute on chronic diastolic CHF (congestive heart failure) I50.33 CVA (cerebral vascular accident) I63.9 UTI (urinary tract infection) N39.0 Fracture, humerus S42.309A
[2024-08-01] MEDS: POTASSIUM CHLORIDE CRTAB 20 MEQ TABCR PO STA (09:33)
[2024-08-01] MEDS ORDERED: oxyCODONE HCL IR 5 MG TAB (IMMEDIATE RELEASE) PO PRN ×3 (11:11→16:01)
[2024-08-01] MEDS: oxyCODONE/ACETAMINOPHEN 10-325 TAB PO PRN (14:58)
--- NOTE | 2024-08-01 15:16 | XRay Report ---
XR elbow RT 2V CLINICAL HISTORY: Elbow pain/ inflammation around artifact joint. COMPARISON: Right elbow radiographs May 12, 2024. FINDINGS: Alignment of the right elbow arthroplasty is anatomic. A lucency through the cement adjace nt to the humeral component on the initial image may reflect a fracture. There is also subtle lucency within the olecranon. Of note, there is increased lucency adjacent to the humeral component when com pared to exam of May 12, 2024. There is also subtle bone loss of the ulna which appear to prior exam . Extensive calcific densities adjacent to the arthroplasty, likely intra-articular, have progressed. IMPRESSION: 1. Status post right total arthroplasty. Increased lucency adjacent to the humeral and ulnar componen ts is suspicious for loosening. This may be due to particle disease. An infectious process could have a similar imaging appearance. 2. Possible nondisplaced fracture through the cement of the distal right humerus. Possible nondisplac ed olecranon fracture. No displaced fractures. 3. Increase in calcific densities adjacent to the arthroplasty, likely intra-articular. This may be r elated to particle disease or developing heterotopic ossification. ACT 112: Negative or not required by law. Electronically signed by: Bhargav Steve M.D. 08/01/2024 3:13 PM
--- NOTE | 2024-08-01 18:19 | Orthopedic Consultation ---
Date of Consultation August 01, 2024 Assessment & Plan (1) Mechanical loosening of prosthetic elbow joint: Patient has a history of a right elbow arthroplasty. This does appear loose on most recent x-rays. When compared to x-rays in April 2024 this may be similar. There may be some worsening in the loosening but could be rotational and projectional view difference in the x-rays obtained. She does not appear to have any elbow effusion. There is surrounding heterotopic ossification also noted. There is no clinical evidence of septic right elbow joint. Would recommend ice, rest and limited movement of the hand. She may do activities as tolerated. We will order her a sling to use for comfort. She can elevate the arm as needed for swelling. Would recommend if she wishes to pursue any further treatment for the right elbow that she would follow-up with her [facility] physician. I did discuss this with her daughter and she is in agreement. She does feel that she probably canceled her appointment coming up in August as she did not want any surgical intervention. Her daughter is aware that things could have worsened but the treatment would remain the same. She will follow-up with [facility] as an outpatient as needed. No further orthopedic intervention at this time for the right elbow during this admission. (2) Right wrist pain: She is complaining of more right wrist and right thumb pain today more so than her elbow. We will obtain x-rays of the right hand and the right wrist to further evaluate this. I explained that to her daughter and she states that in April she had x-rays of both I did show some bone loss due to the multiple myeloma. I still feel that is necessary to get these x-rays to see if it is any worse. We will get her a thumb spica brace can be worn as needed. She can do activities as tolerated. Again no evidence of infection in the thumb or wrist. If any further worsening of her wrist or hand symptoms she can also follow-up with the orthopedist in [facility] as well. Her daughter and her understand and agree with the plan. They are appreciative of us taking a look at things today. And her to call with any problems, questions or concerns. Approximately 40 minutes was spent reviewing her chart, reviewing imaging studies, laboratory work and obtaining history and performing physical exam on the patient. Patient seen and examined with Dr. Mcknight. Supervising Physician Co-Signing Physician Notes IDr. Mcknight, saw and examined the patient. I discussed the management with my PA. I reviewed my PAs note and agree with the documented findings and attest to completing the substantive portion of medical decision making and plan of care I developed. I, Dr. Mcknight, spent 30 minutes reviewing the chart, reading the imaging, evaluating the patient, discussing care plan with the patient and my PA. History of Present Illness Reason for Consultation: Right elbow pain, question loose prosthetic versus infection Requesting Physician: Karen Mcknight MD Attending Physician: Gautam Priest MD History of Present Illness Patient is a pleasant 84-year-old female who was admitted with a CHF exacerb ation and confusion. She has a history of multiple myeloma. We were asked to see her for right elbow pain. She has history of having a right total elbow arthroplasty years ago. She is not exactly sure when she had this performed. Recently over the last several months she has had some increasing pain in the right elbow. She was seen by Dr. Gautam Goyal at [facility] in May. It was noted that she had loosening of the prosthesis. He had discussed conservative treatment versus surgical intervention. Due to her health history she wished to continue to monitor this as an outpatient. He recommended follow-up in approximately 3 months. She denies any new injury. She states that it just started to become painful. She is not exactly sure how long it has been painful. She has pain all over due to her multiple myeloma. She states that it mildly painful at rest but definitely worth with movement and activity. She also has pain in her wrist and her thumb. She wears a brace that she has obtained [id number]. She asked me to call her daughter to give her an update and her daughter stated that she has had wrist and thumb pain in the past. She also believes in April that she had x-rays of her thumb and wrist and was found to have lesions and bone loss in the thumb as well as the ulna at that last appointment. This is not noted in the note. She denies any numbness or tingling. Denies any fevers, chills, redness or warmth. Denies any significant swelling. She states that is just very painful with any type of movement. She supports her right arm across her abdomen with her left arm. She is right-hand dominant. Is hard for her to do any activities with that right upper extremity. Allergies Allergy/AdvReac Type Severity Reaction Status Date / Time No Known Allergies Allergy Verified 05/12/24 18:36 Home Medications Medication Instructions Recorded Confirmed Type Wheeled Walker #1 ea 05/19/22 07/21/24 Rx dexamethasone 4 mg tablet 20 mg PO WK 08/27/22 07/30/24 History diaper,brief,adult,disposable #120 ea 09/07/22 07/21/24 Rx (Briefs, Adult-Extra Large) incontinence pad, liner, disp #100 ea 09/07/22 07/21/24 Rx latex gloves (Latex Gloves, Large) #100 ea 09/07/22 07/21/24 Rx blood sugar diagnostic (OneTouch #100 ea 12/10/22 07/21/24 Rx Ultra Test strips) denosumab 120 mg/1.7 mL (70 mg/mL) 120 mg subcut .Q3 months 01/12/23 07/30/24 History subcutaneous solution (Xgeva) prochlorperazine maleate 10 mg 10 mg PO Q6 PRN Nausea 01/15/24 07/30/24 History tablet Oxygen Home 01/18/24 07/21/24 History acetaminophen 325 mg tablet 650 mg (2 x 325 mg) PO Q4H PRN 03/22/24 07/30/24 Rx fever or pain #30 tabs nystatin 100,000 unit/gram topical 1 applic EXT TID PRN rash in skin 03/22/24 07/30/24 Rx powder (Nystop) folds #30 grams albuterol sulfate 1.25 mg/3 mL 1.25 mg (3 mL) inhalation QID PRN 03/23/24 07/30/24 Rx solution for nebulization shortness of breath or wheezing #90 mL albuterol sulfate 90 mcg/actuation 2 inh inhalation Q6 PRN Shortness 03/23/24 07/30/24 Rx aerosol inhaler Of Breath #1 g atorvastatin 10 mg tablet 10 mg PO QAM #90 tabs 03/23/24 07/30/24 Rx calcium carbonate 600 mg-vitamin 1 tab PO QAM 30 days #30 tabs 03/23/24 07/30/24 Rx D3 5 mcg (200 unit) tablet (Calcium 600 + D(3)) cholecalciferol (vitamin D3) 50 1,000 unit PO QAM #30 tabs 03/23/24 07/30/24 Rx mcg (2,000 unit) tablet cyanocobalamin (vitamin B-12) 100 100 mcg PO QAM #30 tabs 03/23/24 07/30/24 Rx mcg tablet loperamide 2 mg capsule (Imodium 2 mg PO QID PRN Diarrhea 30 days 03/23/24 07/30/24 Rx A-D) #60 caps loratadine 10 mg tablet 10 mg PO QAM 30 days #30 tabs 03/23/24 07/30/24 Rx metoprolol tartrate 25 mg tablet 25 mg PO BID #180 tabs 03/23/24 07/30/24 Rx multivitamin 1 tab PO QAM #30 tabs 03/23/24 07/30/24 Rx pantoprazole 40 mg tablet,delayed 40 mg PO DAILY 30 days #30 tabs 03/23/24 07/30/24 Rx release potassium chloride 10 mEq 10 meq PO AMHS 30 days #30 tabs 03/23/24 07/30/24 Rx tablet,extended release venlafaxine 150 mg 150 mg PO QPM #30 caps 03/23/24 07/30/24 Rx capsule,extended release 24 hr venlafaxine 75 mg capsule,extended 75 mg PO QAM #30 caps 03/23/24 07/30/24 Rx release 24 hr oxycodone 5 mg tablet 5 - 10 mg PO Q4 PRN Pain 04/23/24 07/30/24 History sodium di- and 1 tab PO BID 04/23/24 07/30/24 History monophosphate-potassium phos monobasic 250 mg tablet (Phospha Neutral) lidocaine 5 % topical patch 1 patch topical DAILY PRN pain #15 05/12/24 07/30/24 Rx ea fentanyl 50 mcg/hr transdermal 1 patch transdermal UD 07/01/24 07/30/24 History patch furosemide 20 mg tablet 20 mg PO QAM 07/01/24 07/30/24 History aspirin 81 mg chewable tablet 81 mg PO QAM 07/21/24 07/30/24 History Patient History Medical History Hypercoagulable state Coronary artery disease Cardiac pacemaker (2017) Morbid obesity with BMI of 50.0-59.9, adult Aortic stenosis CHF exacerbation Pancytopenia Acute on chronic respiratory failure with hypoxia Sepsis Pneumonia due to 2019 novel coronavirus Morbid obesity Post-menopausal bleeding Degenerative disc disease Osteoarthritis Hyperlipidemia Diabetes mellitus, type 2 History of seizure Sleep apnea Urinary leakage Basal cell carcinoma Cervical radiculopathy Positional vertigo Post herpetic neuralgia Hemorrhoids Pulmonary embolism Plasmacytoma of bone Anxiety Fracture, humerus Surgical History Aortic valve replaced History of surgery S/P tubal ligation S/P tooth extraction History of endometrial biopsy S/P dilation and curettage History of cataract surgery History of tonsillectomy History of appendectomy History of bilateral carpal tunnel release History of cholecystectomy History of knee replacement procedure of left knee History of knee replacement procedure of right knee H/O surgical biopsy Family History Mother Myocardial infarction Congestive heart failure Father Malignant neoplasm of oral cavity Sister Diabetes Breast cancer Son Hypertension Grandmother Diabetes Denies family history of Prostate cancer Lung cancer Colorectal cancer Social History Smoking Status: Never smoker Second Hand Exposure: No; Do You Dip or Chew Tobacco: No; Hx Alcohol Use: No Hx Substance Use: No Preferred Language: Turkish Communication Ability: Effective Visual Impairment: No Limitations Hearing Ability: Normal Title Abstractor Required: No Beliefs That Will Affect Care: None marital status: / Current Living Situation: Alone Current Living Situation Comment: lives with son and [id number] current occupational status: retired 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 Physical Exam Musculoskeletal: Exam focused on her right upper extremity: She has no edema. Visible skin wrinkles. No erythema, warmth or ecchymosis. Her incision at the right elbow is healed. She has arthritic deformities of most of her fingers on her right hand. Distal sensation is normal with light touch. Capillary refill is brisk. She is unable to make a full fist due to some pain at the base of her thumb and also across her fingers. She has no visible deformity of her wrist forearm or elbow. She is tenderness with palpation along the distal humerus especially on the lateral side. She has some radial head tenderness. She is nontender over the olecranon and there is no evidence of olecranon effusion. There is no evidence of wrist joint effusion. She tolerates gentle passive range of motion of about 40 degrees of extension to 100 degrees of flexion. She has just limited movement with pronation supination due to the pain in the upper forearm and the wrist. The wrist is not warm. No erythema. No ecchymosis. No ef fusion. She is tenderness along the wrist joint, the carpal bones and the distal ulna. She is tenderness at the CMC joint of the thumb. She is able to extend the thumb flex the thumb and abduct the thumb without discomfort. She is able to make the okay sign and does have limited crossing ability of her fingers due to the deformity from suspected arthritis. She is able to make a full fist but does reproduce pain in her hand. She is able to extend her fingers and hold against resistance. Distal pulses are 1+. She does have full range of motion of the shoulder without discomfort in the shoulder today. The shoulder is nontender to palpation. No warmth, erythema or effusion noted. Results & Data Vital Signs (Past 12 Hours) Vital Signs Temp Pulse Pulse Resp BP Pulse Ox O2 Del Method 08/01/24 16:00 65 08/01/24 15:21 36.9 C 78 18 111/72 97 Room Air 08/01/24 12:00 36.9 C 71 18 95/56 L 95 Nasal Cannula 08/01/24 09:00 69 08/01/24 09:00 Nasal Cannula 08/01/24 08:00 36.8 C 68 19 102/60 96 Nasal Cannula O2 Flow Rate 08/01/24 16:00 08/01/24 15:21 2.0 08/01/24 12:00 1.0 08/01/24 09:00 08/01/24 09:00 2 08/01/24 08:00 2.0 Laboratory Results 08/01/24 Range/Units 06:27 WBC 4.62 L (4.8-10.8) K/ul RBC 3.45 L (4.20-5.40) M/uL Hgb 9.5 L (12.0-16.0) g/dl Hct 29.7 L (37.0-47.0) % MCV 86.1 (80.0-100.0) fL MCH 27.5 (25.0-34.0) pg MCHC 32.0 (32.0-36.0) g/dL RDW Std Deviation 54.8 H (36.4-46.3) fL RDW Coeff of Giuseppe 17.5 H (11.5-14.5) % Plt Count 84 L (130-400) K/uL Immature Gran % (Auto) 0.6 % Neut % (Auto) 62.2 % Lymph % (Auto) 14.9 % [place] % (Auto) 19.7 % Eos % (Auto) 2.2 % Baso % (Auto) 0.4 % Neut # (Auto) 2.87 (1.40-6.50) K/uL Lymph # (Auto) 0.69 L (1.20-3.40) K/uL [place] # (Auto) 0.91 H (0.11-0.59) K/uL Eos # (Auto) 0.10 (0.00-0.50) K/uL Baso # (Auto) 0.02 (0.00-0.20) K/uL Immature Gran # (Auto) 0.03 (0.01-0.20) K/uL Polychromasia 1+ Poikilocytosis Present Tear Drop Cells 1+ Ovalocytes 1+ Acanthocytes (Spur) 2+ Sodium 139 (136-145) mmol/L Potassium 3.3 L (3.5-5.1) mmol/L Chloride 98 (98-107) mmol/L Carbon Dioxide 34 H (21-32) mmol/L Anion Gap 7 (3-11) BUN 15 (6-23) mg/dl Creatinine 0.91 (0.6-1.2) mg/dl Est Cr Clr Drug Dosing 48.4 ml/min Est GFR ( Amer) 67.1 ml/min Est GFR (Non-Af Amer) 57.9 ml/min BUN/Creatinine Ratio 16.5 (10-20) Glucose 120 H (70-99(Fasting)) mg/dl Calcium 8.1 L (8.6-10.3) mg/dl Diagnostic Findings XR elbow RT 2V CLINICAL HISTORY: Elbow pain/ inflammation around artifact joint. COMPARISON: Right elbow radiographs May 12, 2024. FINDINGS: Alignment of the right elbow arthroplasty is anatomic. A lucency through the cement adjacent to the humeral component on the initial image may reflect a fracture. There is also subtle lucency within the olecranon. Of note, there is increased lucency adjacent to the humeral component when compared to exam of May 12, 2024. There is also subtle bone loss of the ulna which appear to prior exam. Extensive calcific densities adjacent to the arthroplasty, likely intra-articular, have progressed. IMPRESSION: 1. Status post right total arthroplasty. Increased lucency adjacent to the humeral and ulnar components is suspicious for loosening. This may be due to particle disease. An infectious process could have a similar imaging appearance. 2. Possible nondisplaced fracture through the cement of the distal right humerus. Possible nondisplaced olecranon fracture. No displaced fractures. 3. Increase in calcific densities adjacent to the arthroplasty, likely intra- articular. This may be related to particle disease or developing heterotopic ossification.
--- NOTE | 2024-08-01 18:25 | Billing Data ---
Date of Service August 01, 2024 Coding Level of Care Code 34765 INT INP/OBS CARE
[2024-08-02] MEDS: oxyCODONE HCL IR 5 MG TAB (IMMEDIATE RELEASE) PO PRN ×2 (05:48→17:59)
--- NOTE | 2024-08-02 07:14 | XRay Report ---
XR hand RT min 3V routine HISTORY: 84 years-old Female right thumb/hand pain acute pain of the right hand and wrist COMPARISON: Wrist radiographs of same day TECHNIQUE: 3 views of the right hand FINDINGS: Chronic ununited ulnar styloid process fracture. 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 Chronic remodeling changes are present without acute fracture, dislocation or osseous erosion. Arterial calcifications are noted. IMPRESSION: Osteoarthritis without acute fracture or dislocation identified. ACT 112: Negative or not required by law. The above report was generated using voice recognition software. It may contain grammatical, syntax o r spelling errors. Electronically signed by: Zane Portillo M.D. 08/02/2024 7:13 AM
--- NOTE | 2024-08-02 07:20 | XRay Report ---
XR wrist RT min 3V routine CLINICAL HISTORY: Right wrist pain. COMPARISON: None FINDINGS: No acute fracture within the right wrist is present. A well-corticated ossicle of the ulna r styloid is chronic. There is moderate joint space narrowing and osteophytosis within multiple artic ulations of the right wrist. There are no erosions. Slight widening of the scapholunate interval. IMPRESSION: 1. No acute fractures within the right wrist. 2. 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 ACT 112: Negative or not required by law. Electronically signed by: Bhargav Steve M.D. 08/02/2024 7:18 AM
--- NOTE | 2024-08-02 08:41 | Hospitalist Progress Note ---
Date of Service August 02, 2024 Assessment & Plan (1) Goals of care, counseling/discussion: Plan: - Acute metabolic encephalopathy - Multifactorial likely due to hypercapnia, UTI, and acute hypoxia from CHF exacerbation - Found pending Medivan pickup wandering around her house very confused. Per family report patient does take pain medications right before appointments, so may have an element of narcosis. - VBG's with mild acidosis on admission - Per admitting provider: - Patient does not demonstrate capacity at time of admitting assessment. Also reviewed with patient's daughter. Attempted to contact patient's son however he was unavailable by phone. - Patient's daughter confirms DNR/DNI. NO ventilation under any circumstances, and no escalation of care or invasive procedures including central lines/ICU care. - Biggest goals are comfort and pain control, although generally does well and does want admission for reversible conditions that affect her quality of life. - Does want admission to the hospital for treatment of UTI, CHF, and CVA evaluation as noted. - She is enrolled with hospice as outpatient. - Patient's daughter concerned with self medication compliance out patient and would like to discuss alf care. - Palliative consult placed - pain regimen adjusted 08/02, will reassess pain tomorrow with potential discharge 08/03 (2) Acute on chronic diastolic CHF (congestive heart failure): Plan: - improving - Hypoxic respiratory failure due to HFpEF Last echo 01/2024: EF 50-55%, severe concentric LVH, bioprosthetic AV, moderate to severe mitral annular calcification Troponin minimally elevated, stable on repeat on admission EKG on admission: Ventricular paced rhythm - Quad screen is negative - difficult to asses edema given obesity Lasix 40 mg IV BID transitioned to home PO Lasix dose to begin 08/03 with potassium supplementation - K+ 08/01 low at 3.3; additional 40 MeQ PO ordered, since resolved - Monitor I/O's - Daily weights (3) CVA (cerebral vascular accident): Plan: - Questionable Subacute/old CVA - CThead with small hypodensities favoring subacute to chronic infarct new from prior; not a candidate for thrombolysis - MRI confirmed subacute/chronic infarct of right cerebral hemisphere - Continue Aspirin 81mg - DAPT versus transition to Plavix, patient is with prior hospital admissions for hematochezia/bleeding - Atorvastatin increased to 40mg, lipid panel showed mild hypertriglyceridemia, LDL/HDL WNL - follow up noncontrast head CT 2 months (4) UTI (urinary tract infection): Plan: urine culture preliminary showed E coli No history of resistant cultures Rocephin ordered on admission; continue, urine culture showed susceptibility No signs of systemic infection (5) Fracture, humerus: Plan: Right elbow pain: - 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 - increased calcific densities likely secondary to particle disease vs heterotopic ossification - possibly loosening of arthroplasty due to particle disease vs infectious process, although lucency seen on previous X-ray 05/12 - Xray of hand and wrist 08/01 showed osteoarthritis, no acute fractures - ortho consulted - no evidence of septic joint at this time - ice, limited movement, sling, and thumb spica for wrist pain - follow up outpatient with [place] - discussed pain regimen with palliative - oxy 7.5mg Q3/10 mg Q4 prn - fentanyl patch 12.5 mcg began 08/02 - will reassess pain control with potential d/c 08/03 Plan Chronic stable issues: Multiple myeloma/plasmacytoma/AIN: No acute change in management Complete heart block: S/p pacemaker placement DVT prophylaxis: Lovenox held for prior bleeding, thrombocytopenia. SCDs CODE STATUS: DNR/DNI Diet: Heart healthy Dispo: transition from PCU to med surg 08/02. Potential discharge home 08/03 based off patient's pain control. Admission and Anticipated Discharge Date Admission Date: July 30, 2024 Supervising Physician Co-Signing Physician Notes Patient was seen and examined independently I discussed the case with Sonia RODNEY I reviewed pertinent past medical social family history and also the plan of care and agree with the plan of care. Patient was complaining of some pain in her right elbow we did discuss the possibly of hospice unclear what family is going to take home on hospice her wishes for placement. Diuresis seems to have gone well will transition oral diuretics Patient is without respiratory distress her pulm exam shows rales at the bases because she is likely has atelectasis Right elbow is tender and slightly swollen she is wearing a sling Metabolic encephalopathy is clearing with antibiotic care it is a pansensitive E. coli would likely easily transition oral equivalent medication at time of discharge. Any exceptions will be noted below Subjective Patient doing well today. She stated that her elbow pain is much improved since 08/01. She now complains of 8/10 wrist pain although she was due for her next pain medication on exam. Her appetite has been stable. She stated that she believes her legs are still swollen although she does not check them. Patient denies headache, dizziness, lightheadedness, cough, dyspnea, dyspnea on exertion, chest pain, abdominal pain, nausea, vomiting, dysuria, difficultly urinating, numbness, tingling. Her daughter lives in [place] and she has no close family nearby. She lives at home alone. Review of Systems Review of Systems: See HPI Physical Exam Physical Exam: The patient is awake, alert and oriented 3, obese, normocephalic and atraumatic, in no acute distress. Non-toxic appearing. HEENT- EOMI, mucous membranes moist. Hearing grossly intact. Heart-normal S1 and S2. No murmurs, rubs or gallops. Lungs-clear bilaterally, no respiratory distress, no accessory muscle use. Abdomen-normal bowel sounds and soft. No ascites noted. Non-tender. Extremities- no clubbing, cyanosis. Mild +1 pitting edema to bilateral LE, improved since 08/01. Sling and thumb spica splint to upper right extremity. Sensorineural exam WNL. Psychiatric-normal affect. Results & Data Results & Data Vital Signs (Past 12 Hours) Vital Signs Temp Pulse Pulse Resp BP Pulse Ox O2 Del Method 08/02/24 07:56 36.8 C 77 20 125/85 93 Nasal Cannula 08/02/24 03:46 37.3 C 82 22 124/82 93 CPAP 08/02/24 03:32 72 26 H 96 08/02/24 00:47 69 08/01/24 23:19 80 23 92 08/01/24 23:00 36.6 C 80 22 115/60 97 CPAP 08/01/24 21:49 Nasal Cannula, CPAP O2 Flow Rate 08/02/24 07:56 2 08/02/24 03:46 08/02/24 03:32 2 08/02/24 00:47 08/01/24 23:19 2 08/01/24 23:00 08/01/24 21:49 2 PG Care Time/CCT Total # of Minutes Spent Total Time Spent with Patient: Total time spent is greater than 50% in coordination of care (as documented) at patient's floor/unit and/or counseling patient: Coding Level of Care Code None Diagnoses Goals of care, counseling/discussion Z71.89 Acute on chronic diastolic CHF (congestive heart failure) I50.33 CVA (cerebral vascular accident) I63.9 UTI (urinary tract infection) N39.0 Fracture, humerus S42.309A
[2024-08-02 09:30] LABS: BUN Creatinine Ratio 15.1 (10-20); Creatinine Clr Calc Pharmacy 51.3 ml/min; Est GFR (African American) 71.9 ml/min; Potassium 3.7 mmol/L (3.5-5.1)
[2024-08-02 09:35] LABS: Basophils # (auto) 0.02 K/uL (0.00-0.20); Basophils % (auto) 0.5 %; Eosinophils # (auto) 0.13 K/uL (0.00-0.50); Eosinophils % (auto) 3.2 %; Hemoglobin 10.2 g/dl (12.0-16.0); Immature Granulocytes # (auto) 0.03 K/uL (0.01-0.20); Immature Granulocytes % (auto) 0.7 %; Lymphocytes # (auto) 0.49 K/uL (1.20-3.40); Mean Corpuscular Hemoglobin 27.3 pg (25.0-34.0); Mean Corpuscular Hgb Conc 31.9 g/dL (32.0-36.0); Mean Corpuscular Volume 85.6 fL (80.0-100.0); Monocytes # (auto) 0.74 K/uL (0.11-0.59); Neutrophils # (auto) 2.69 K/uL (1.40-6.50); Neutrophils % (auto) 65.6 %; Platelet Count 89 K/uL (130-400); RDW Coefficient of Variation 17.7 % (11.5-14.5); RDW Standard Deviation 54.8 fL (36.4-46.3); Red Blood Count 3.74 M/uL (4.20-5.40)
[2024-08-02 09:43] LABS: Acanthocytes 1+; Poikilocytosis Present
[2024-08-02] MEDS: fentaNYL 12 MCG/HR TDSY TD SCH (13:12)
[2024-08-02] MEDS: oxyCODONE HCL IR 5 MG TAB (IMMEDIATE RELEASE) PO STA (14:26)
[2024-08-02] MEDS: CHECK fentaNYL PATCH PLACEMENT SCH (15:11)
[2024-08-02 15:12] LABS: Codeine Urine NEGATIVE ng/mL (<50); Fentanyl, Urine 44.1 ng/mL (<0.5); Hydrocodone Urine NEGATIVE ng/mL (<50); Hydromor Urine NEGATIVE ng/mL (<50); Morphine Urine NEGATIVE ng/mL (<50); Norhydrocodone Conf Ur NEGATIVE ng/mL (<50); Noroxycodone Urine >10000 ng/mL (<50); Oxycodone Urine >10000 ng/mL (<50); Oxymorph Urine 1620 ng/mL (<50); medMATCH Fentanyl, Urine DNR; medMATCH Norfentanyl, Urine DNR
--- NOTE | 2024-08-02 15:29 | Palliative Care Consultation ---
Date of Consultation August 02, 2024 Assessment & Plan (1) Cancer related pain: OxyIR 5mg increased to 7.5mg PO q3h prn mild to moderate pain Continue OxyIR 10mg prn for severe pain, prior to personal care and repositioning Continue TDF 12mcg, if not enough relief by tomorrow would increase this to TDF 25mcg dose and keep the PRN OxyIR doses unchanged Bowel regimen in place (2) Weakness generalized: (3) Advanced care planning/counseling discussion: I met with Mrs Roy face to face at bedside for 45min. She is AAOx3, and is decisionally intact. She had a very good understanding of her cancer and its complications: "I have multiple myeloma, they can't cure it, it's all over and makes my bones so weak they just break and I don't even have to fall. I like hospice, I like the people who care for me and the one girl who comes for my bathing is the best. I want to get back on hospice, do you know if they would be willing to take me back? I just want my pain to be managed better and feel more relief. I know they can't take away the myeloma, so I just want the pain to be more bearable." She asked me to call her daughter Amisha - there was no answer but I left a detailed voicemail and my contact info, requested a call back. (4) Encounter for hospice care discussion: SHe is very happy with her hospice care and wishes to resume. Her caregivers from hospice provider her with care that she has come to rely on and value. She also notes they maintain a high priority on assuring her comfort and dignity are preserved. ACP discussion as noted above (5) Palliative care by specialist: Introduced Palliative Medicine and explained our role in patient's care. Patient and/or family were receptive to palliative services for goals of care discussions. Reviewed we are different from hospice, a home health nurse visiting service. 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 Please page with any additional concerns. Marco Catherine DNP Director, Palliative Medicine History of Present Illness Reason for Consultation: hospice Attending Physician: Gautam Priest MD History of Present Illness 84yo female with adv multiple myeloma who sustained a RUE fracture and came to [facility] for pain mgt and to determine if there were any interventions to improve RUE fx and function no surgical intervention remains in a soft immobilizer resting in bed at time of my visit, no family present she is awake and alert tells me the pain is signif and current "meds are not doing enough BMs daily to every other day no abd pain on TDF 12mcg patch and prn OxyIr 5 and 10mg options, mostly gets the 5mg dose Allergies Allergy/AdvReac Type Severity Reaction Status Date / Time No Known Allergies Allergy Verified 05/12/24 18:36 Home Medications Medication Instructions Recorded Confirmed Type Wheeled Walker #1 ea 05/19/22 07/21/24 Rx dexamethasone 4 mg tablet 20 mg PO WK 08/27/22 07/30/24 History diaper,brief,adult,disposable #120 ea 09/07/22 07/21/24 Rx (Briefs, Adult-Extra Large) incontinence pad, liner, disp #100 ea 09/07/22 07/21/24 Rx latex gloves (Latex Gloves, Large) #100 ea 09/07/22 07/21/24 Rx blood sugar diagnostic (OneTouch #100 ea 12/10/22 07/21/24 Rx Ultra Test strips) denosumab 120 mg/1.7 mL (70 mg/mL) 120 mg subcut .Q3 months 01/12/23 07/30/24 History subcutaneous solution (Xgeva) prochlorperazine maleate 10 mg 10 mg PO Q6 PRN Nausea 01/15/24 07/30/24 History tablet Oxygen Home 01/18/24 07/21/24 History acetaminophen 325 mg tablet 650 mg (2 x 325 mg) PO Q4H PRN 03/22/24 07/30/24 Rx fever or pain #30 tabs nystatin 100,000 unit/gram topical 1 applic EXT TID PRN rash in skin 03/22/24 07/30/24 Rx powder (Nystop) folds #30 grams albuterol sulfate 1.25 mg/3 mL 1.25 mg (3 mL) inhalation QID PRN 03/23/24 07/30/24 Rx solution for nebulization shortness of breath or wheezing #90 mL albuterol sulfate 90 mcg/actuation 2 inh inhalation Q6 PRN Shortness 03/23/24 07/30/24 Rx aerosol inhaler Of Breath #1 g atorvastatin 10 mg tablet 10 mg PO QAM #90 tabs 03/23/24 07/30/24 Rx calcium carbonate 600 mg-vitamin 1 tab PO QAM 30 days #30 tabs 03/23/24 07/30/24 Rx D3 5 mcg (200 unit) tablet (Calcium 600 + D(3)) cholecalciferol (vitamin D3) 50 1,000 unit PO QAM #30 tabs 03/23/24 07/30/24 Rx mcg (2,000 unit) tablet cyanocobalamin (vitamin B-12) 100 100 mcg PO QAM #30 tabs 03/23/24 07/30/24 Rx mcg tablet loperamide 2 mg capsule (Imodium 2 mg PO QID PRN Diarrhea 30 days 03/23/24 07/30/24 Rx A-D) #60 caps loratadine 10 mg tablet 10 mg PO QAM 30 days #30 tabs 03/23/24 07/30/24 Rx metoprolol tartrate 25 mg tablet 25 mg PO BID #180 tabs 03/23/24 07/30/24 Rx multivitamin 1 tab PO QAM #30 tabs 03/23/24 07/30/24 Rx pantoprazole 40 mg tablet,delayed 40 mg PO DAILY 30 days #30 tabs 03/23/24 07/30/24 Rx release potassium chloride 10 mEq 10 meq PO AMHS 30 days #30 tabs 03/23/24 07/30/24 Rx tablet,extended release venlafaxine 150 mg 150 mg PO QPM #30 caps 03/23/24 07/30/24 Rx capsule,extended release 24 hr venlafaxine 75 mg capsule,extended 75 mg PO QAM #30 caps 03/23/24 07/30/24 Rx release 24 hr oxycodone 5 mg tablet 5 - 10 mg PO Q4 PRN Pain 04/23/24 07/30/24 History sodium di- and 1 tab PO BID 04/23/24 07/30/24 History monophosphate-potassium phos monobasic 250 mg tablet (Phospha Neutral) lidocaine 5 % topical patch 1 patch topical DAILY PRN pain #15 05/12/24 07/30/24 Rx ea fentanyl 50 mcg/hr transdermal 1 patch transdermal UD 07/01/24 07/30/24 History patch furosemide 20 mg tablet 20 mg PO QAM 07/01/24 07/30/24 History aspirin 81 mg chewable tablet 81 mg PO QAM 07/21/24 07/30/24 History Patient History Medical History Hypercoagulable state Coronary artery disease Cardiac pacemaker (2017) Morbid obesity with BMI of 50.0-59.9, adult Aortic stenosis CHF exacerbation Pancytopenia Acute on chronic respiratory failure with hypoxia Sepsis Pneumonia due to 2019 novel coronavirus Morbid obesity Post-menopausal bleeding Degenerative disc disease Osteoarthritis Hyperlipidemia Diabetes mellitus, type 2 History of seizure Sleep apnea Urinary leakage Basal cell carcinoma Cervical radiculopathy Positional vertigo Post herpetic neuralgia Hemorrhoids Pulmonary embolism Plasmacytoma of bone Anxiety Fracture, humerus Surgical History Aortic valve replaced History of surgery S/P tubal ligation S/P tooth extraction History of endometrial biopsy S/P dilation and curettage History of cataract surgery History of tonsillectomy History of appendectomy History of bilateral carpal tunnel release History of cholecystectomy History of knee replacement procedure of left knee History of knee replacement procedure of right knee H/O surgical biopsy Family History Mother Myocardial infarction Congestive heart failure Father Malignant neoplasm of oral cavity Sister Diabetes Breast cancer Son Hypertension Grandmother Diabetes Denies family history of Prostate cancer Lung cancer Colorectal cancer Social History Smoking Status: Never smoker Second Hand Exposure: No; Do You Dip or Chew Tobacco: No; Hx Alcohol Use: No Hx Substance Use: No Preferred Language: Argentine Communication Ability: Effective Visual Impairment: No Limitations Hearing Ability: Normal Sr Community Manager Required: No Beliefs That Will Affect Care: None marital status: / Current Living Situation: Alone Current Living Situation Comment: lives with son and [id number] current occupational status: retired 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 Other Information That Helps Us Care for You: No Feels Safe at Home: Yes Safety Concerns: Feels Safe At This Time Childhood Exposure to Second-Hand Smoke: No Diet: other caffeine: Yes (1 cup/day) during the past year weight has: remained stable Dental Care, Regularly: No Physical Activity Frequency: Does not Exercise Seatbelt Use: sometimes Sunscreen Use: Yes Assistive Devices: Walker Review of Systems Review of Systems: All systems reviewed & are unremarkable except as noted in Subjective Physical Exam Physical Exam: elderly female resting in bed, semi recline right upper extremity in soft immobilizer mild bitemp wasting perrla MMM, no thrush, dentition fair neck supple no stridor lung diminished but clear S1S2, no gross JVD Abd soft, non tender RUE pain along forearm, upper arm and into shoulder region, extended discomfort to SCM region with palpation skin pink, warm AAOx3 Results & Data Vital Signs (Past 12 Hours) Vital Signs Temp Pulse Pulse Resp BP Pulse Ox O2 Del Method 08/02/24 11:44 36.5 C 18 116/78 98 Nasal Cannula 08/02/24 09:32 68 08/02/24 09:32 Nasal Cannula 08/02/24 07:56 36.8 C 77 20 125/85 93 Nasal Cannula 08/02/24 03:46 37.3 C 82 22 124/82 93 CPAP 08/02/24 03:32 72 26 H 96 O2 Flow Rate 08/02/24 11:44 2 08/02/24 09:32 08/02/24 09:32 2 08/02/24 07:56 2 08/02/24 03:46 08/02/24 03:32 2 Laboratory Results Laboratory Results WBC 4.10 K/ul (4.8-10.8) L 08/02/24 07:53 RBC 3.74 M/uL (4.20-5.40) L 08/02/24 07:53 Hgb 10.2 g/dl (12.0-16.0) L 08/02/24 07:53 Hct 32.0 % (37.0-47.0) L 08/02/24 07:53 MCV 85.6 fL (80.0-100.0) 08/02/24 07:53 MCH 27.3 pg (25.0-34.0) 08/02/24 07:53 MCHC 31.9 g/dL (32.0-36.0) L 08/02/24 07:53 RDW Std Deviation 54.8 fL (36.4-46.3) H 08/02/24 07:53 RDW Coeff of Giuseppe 17.7 % (11.5-14.5) H 08/02/24 07:53 Plt Count 89 K/uL (130-400) L 08/02/24 07:53 MPV Cancelled 07/30/24 13:45 Immature Gran % (Auto) 0.7 % 08/02/24 07:53 Neut % (Auto) 65.6 % 08/02/24 07:53 Lymph % (Auto) 12.0 % 08/02/24 07:53 Moffat % (Auto) 18.0 % 08/02/24 07:53 Eos % (Auto) 3.2 % 08/02/24 07:53 Baso % (Auto) 0.5 % 08/02/24 07:53 Neut # (Auto) 2.69 K/uL (1.40-6.50) 08/02/24 07:53 Lymph # (Auto) 0.49 K/uL (1.20-3.40) L 08/02/24 07:53 Moffat # (Auto) 0.74 K/uL (0.11-0.59) H 08/02/24 07:53 Eos # (Auto) 0.13 K/uL (0.00-0.50) 08/02/24 07:53 Baso # (Auto) 0.02 K/uL (0.00-0.20) 08/02/24 07:53 Immature Gran # (Auto) 0.03 K/uL (0.01-0.20) 08/02/24 07:53 Absolute Nucleated RBC Cancelled 07/30/24 13:45 Nucleated RBC % (auto) Cancelled 07/30/24 13:45 Neutrophils % (Manual) Cancelled 07/30/24 13:45 Band Neutrophils % Cancelled 07/30/24 13:45 Lymphocytes % (Manual) Cancelled 07/30/24 13:45 Prolymphocyte % Cancelled 07/30/24 13:45 Reactive Lymphs % (Man) Cancelled 07/30/24 13:45 Monocytes % (Manual) Cancelled 07/30/24 13:45 Eosinophils % (Manual) Cancelled 07/30/24 13:45 Basophils % (Manual) Cancelled 07/30/24 13:45 Metamyelocytes % (Man) Cancelled 07/30/24 13:45 Myelocytes % (Man) Cancelled 07/30/24 13:45 Promyelocytes % (Man) Cancelled 07/30/24 13:45 Blast Cells % (Manual) Cancelled 07/30/24 13:45 Plasma Cell % (Manual) Cancelled 07/30/24 13:45 Other Cells % Cancelled 07/30/24 13:45 Nucleated RBC % Cancelled 07/30/24 13:45 Neutrophils # (Manual) Cancelled 07/30/24 13:45 Band Neutrophils # Cancelled 07/30/24 13:45 Total Absolute Neuts Cancelled 07/30/24 13:45 Lymphocytes # (Manual) Cancelled 07/30/24 13:45 Prolymphocyte # Cancelled 07/30/24 13:45 Reactive Lymphs # Cancelled 07/30/24 13:45 Total Abs Lymphocytes Cancelled 07/30/24 13:45 Monocytes # (Manual) Cancelled 07/30/24 13:45 Eosinophils # (Manual) Cancelled 07/30/24 13:45 Basophils # (Manual) Cancelled 07/30/24 13:45 Metamyelocytes # (Man) Cancelled 07/30/24 13:45 Myelocytes # (Manual) Cancelled 07/30/24 13:45 Promyelocytes # (Man) Cancelled 07/30/24 13:45 Blast Cells # (Man) Cancelled 07/30/24 13:45 Plasma Cell # (Manual) Cancelled 07/30/24 13:45 Other Cells # Cancelled 07/30/24 13:45 Nucleated RBCs # (Man) Cancelled 07/30/24 13:45 Hypersegmented Neuts Cancelled 07/30/24 13:45 Hyposegmented Neuts Cancelled 07/30/24 13:45 Hypogranular Neuts Cancelled 07/30/24 13:45 Large Granular Lymphs Cancelled 07/30/24 13:45 # Lrg Granular Lymphs Cancelled 07/30/24 13:45 Hairy Cells Cancelled 07/30/24 13:45 Smudge Cells Cancelled 07/30/24 13:45 Toxic Granulation Cancelled 07/30/24 13:45 Toxic Vacuolation Cancelled 07/30/24 13:45 Dohle Bodies Cancelled 07/30/24 13:45 Jen Rods Cancelled 07/30/24 13:45 Platelet Estimate Decreased (Normal) L 07/30/24 15:25 Hypogranular Platelets Cancelled 07/30/24 13:45 Giant Platelets Cancelled 07/30/24 13:45 Platelet Satelliting Cancelled 07/30/24 13:45 RBC Morphology Cancelled 07/30/24 13:45 Polychromasia 1+ 08/01/24 06:27 Hypochromasia Cancelled 07/30/24 13:45 Poikilocytosis Present 08/02/24 07:53 Basophilic Stippling Cancelled 07/30/24 13:45 Anisocytosis Cancelled 07/30/24 13:45 Microcytosis Cancelled 07/30/24 13:45 Macrocytosis Cancelled 07/30/24 13:45 Spherocytes Cancelled 07/30/24 13:45 Pappenheimer Bodies Cancelled 07/30/24 13:45 Sickle Cells Cancelled 07/30/24 13:45 Target Cells Cancelled 07/30/24 13:45 Tear Drop Cells 1+ 08/01/24 06:27 Ovalocytes 1+ 08/01/24 06:27 Stomatocytes Cancelled 07/30/24 13:45 [place] Bodies Cancelled 07/30/24 13:45 Echinocytes Cancelled 07/30/24 13:45 Acanthocytes (Spur) 1+ 08/02/24 07:53 Rouleaux Cancelled 07/30/24 13:45 RBC Agglutinates Cancelled 07/30/24 13:45 Schistocytes 1+ 07/30/24 15:25 Sezary Cell Cancelled 07/30/24 13:45 PT 10.6 Seconds (9.0-12.0) 07/30/24 15:25 INR 1.0 (0.9-1.1) 07/30/24 15:25 APTT 24 Seconds (21-31) 07/30/24 15:25 PTT Ratio 0.9 07/30/24 15:25 VBG pH 7.32 (7.36-7.41) L 07/30/24 15:25 VBG pCO2 61 mmHg (38-50) H 07/30/24 15:25 VBG pO2 24 mmHg 07/30/24 15:25 VBG HCO3 31 mmol/L 07/30/24 15:25 VBG O2 Saturation < 60.0 % 07/30/24 15:25 VBG Base Excess 3.6 mEq/L 07/30/24 15:25 Sodium 138 mmol/L (136-145) 08/02/24 07:53 Potassium 3.7 mmol/L (3.5-5.1) 08/02/24 07:53 Chloride 99 mmol/L (98-107) 08/02/24 07:53 Carbon Dioxide 29 mmol/L (21-32) 08/02/24 07:53 Anion Gap 10 (3-11) 08/02/24 07:53 BUN 13 mg/dl (6-23) 08/02/24 07:53 Creatinine 0.86 mg/dl (0.6-1.2) 08/02/24 07:53 Est Cr Clr Drug Dosing 51.3 ml/min 08/02/24 07:53 Est GFR ( Amer) 71.9 ml/min 08/02/24 07:53 Est GFR (Non-Af Amer) 62.0 ml/min 08/02/24 07:53 BUN/Creatinine Ratio 15.1 (10-20) 08/02/24 07:53 Glucose 131 mg/dl (70-99(Fasting)) H 08/02/24 07:53 POC Glucose 133 mg/dl (70-99) H 07/30/24 14:28 Calcium 8.0 mg/dl (8.6-10.3) L 08/02/24 07:53 Total Bilirubin 0.4 mg/dl (0.2-1.0) 07/30/24 13:45 AST 14 U/L (13-39) 07/30/24 13:45 ALT 7 U/L (7-52) 07/30/24 13:45 Alkaline Phosphatase 48 U/L (34-104) 07/30/24 13:45 Troponin I High Sens 22.6 pg/ml (0-14) H 07/30/24 15:26 B-Natriuretic Peptide 178 pg/ml (0-100) H 07/30/24 13:45 Total Protein 6.0 gm/dl (6.0-8.3) 07/30/24 13:45 Albumin 3.7 gm/dl (3.4-5.0) 07/30/24 13:45 Globulin 2.3 gm/dl (2.5-4.0) L 07/30/24 13:45 Albumin/Globulin Ratio 1.6 (0.9-2) 07/30/24 13:45 Triglycerides 165 mg/dl (0-150) H 07/31/24 06:41 Cholesterol 119 mg/dl (0-200) 07/31/24 06:41 LDL Cholesterol, Calc 40 mg/dl 07/31/24 06:41 VLDL Cholesterol, Calc 33 mg/dl (0-30) H 07/31/24 06:41 HDL Cholesterol 46 mg/dl 07/31/24 06:41 Cholesterol/HDL Ratio 2.6 (0-5) 07/31/24 06:41 Urine Color Yellow 07/30/24 16:21 Urine Appearance Clear (Clear) 07/30/24 16:21 Urine pH 5.5 (4.5-7.5) 07/30/24 16:21 Ur Specific [place] 1.015 (1.000-1.030) 07/30/24 16:21 Urine Protein Trace (Negative) H 07/30/24 16:21 Urine Glucose (UA) Negative (Negative) 07/30/24 16:21 Urine Ketones Negative (Negative) 07/30/24 16:21 Urine Blood Negative (Negative) 07/30/24 16:21 Urine Nitrite Positive (Negative) A 07/30/24 16:21 Urine Bilirubin Negative (Negative) 07/30/24 16:21 Urine Urobilinogen Negative (Negative) 07/30/24 16:21 Ur Leukocyte Esterase Trace (Negative) H 07/30/24 16:21 Urine WBC (Auto) 0-5 /hpf (0-5) 07/30/24 16:21 Urine RBC (Auto) 0-2 /hpf (0-2) 07/30/24 16:21 U Hyaline Cast (Auto) 3-5 /lpf (0-2) H 07/30/24 16:21 U Epithel Cells (Auto) 0-2 /hpf (0-2) 07/30/24 16:21 Urine Bacteria (Auto) 4+ (None Seen) H 07/30/24 16:21 Urine Opiates Screen Pos (Neg) H 07/30/24 16:21 U Codeine Confrm GC/MS NEGATIVE ng/mL (<50) 07/30/24 16:21 Ur Morphine (GC/MS) NEGATIVE ng/mL (<50) 07/30/24 16:21 Ur Hydrocodone (GC/MS) NEGATIVE ng/mL (<50) 07/30/24 16:21 Ur Norhydrocodone NEGATIVE ng/mL (<50) 07/30/24 16:21 Ur Noroxycodone >01196 ng/mL (<50) H 07/30/24 16:21 Urine Oxycodone (GC/MS) >04836 ng/mL (<50) H 07/30/24 16:21 U Oxymorphone GC/MS 1620 ng/mL (<50) H 07/30/24 16:21 Ur Methadone, Qual Neg (Neg) 07/30/24 16:21 Ur Hydromorphone (GC/MS) NEGATIVE ng/mL (<50) 07/30/24 16:21 Fentanyl Comments SEE NOTE 07/30/24 16:21 Drug Monitor Fentanyl DNR 07/30/24 16:21 Fentanyl Confirmation 44.1 ng/mL (<0.5) H 07/30/24 16:21 Drug Monitor Norfentanyl DNR 07/30/24 16:21 Urine Fentanyl Screen Pos (Neg) H 07/30/24 16:21 Ur Norfentanyl Confirm 168.0 ng/mL (<0.5) H 07/30/24 16:21 Urine Barbiturates Neg (Neg) 07/30/24 16:21 Ur Phencyclidine (PCP) Neg (Neg) 07/30/24 16:21 U Amphetamin/Meth Scrn Neg (Neg) 07/30/24 16:21 MDMA (Ecstasy) Screen Neg (Neg) 07/30/24 16:21 U Benzodiazepines Scrn Neg (Neg) 07/30/24 16:21 Ur Cocaine Metabolite Neg (Neg) 07/30/24 16:21 U Marijuana (THC) Screen Neg (Neg) 07/30/24 16:21 Drug Screen Comment SEE NOTE 07/30/24 16:21 Toxicology Comment SEE NOTE 07/30/24 16:21 Drug Monitor Historic Res DNR 07/30/24 16:21 SARS-CoV-2 (PCR) NEGATIVE (Negative) 07/30/24 13:36 Influenza Type A (PCR) Negative (Neg) 07/30/24 13:36 Influenza Type B (PCR) Negative (Neg) 07/30/24 13:36 RSV (RT-PCR) Negative (Neg) 07/30/24 13:36 Blood Parasites ID Cancelled 07/30/24 13:45 Impressions Chest X-Ray 07/30/24 14:05 XR chest 1V not portable HISTORY: 84 years-old Female Chest pain, nonspecific COMPARISON: 07/01/2024 TECHNIQUE: AP view of the chest FINDINGS: Cardiac silhouette is enlarged. Dual-lead left subclavian pacer. Right IJ [id number] catheter. Aortic endograft again noted. Vascular congestion with interstitial coarsening. Trace pleural effusions. Chronic lateral right-sided rib fractures. Degenerative changes of the shoulders and spine. IMPRESSION: 1. Cardiomegaly with suggestion of interstitial pulmonary edema. 2. Trace pleural effusions. ACT 112: Negative or not required by law. The above report was generated using voice recognition software. It may contain grammatical, syntax or spelling errors. Electronically signed by: Zane Portillo M.D. 07/30/2024 2:[address] 07/30/24 14:26 CT OF THE HEAD WITHOUT CONTRAST CLINICAL HISTORY: Altered mental status. Multiple myeloma. COMPARISON STUDY: MRI of the brain April 14, 2007. Head CT July 10, 2022. CT DOSE: 547.75 mGy.cm TECHNIQUE: Helical axial images of the head were obtained without IV contrast. Automated exposure control was utilized for the study. A dose lowering technique was utilized adhering to the principles of ALARA. FINDINGS: No acute intracranial hemorrhage, midline shift or mass effect is present. A few subcortical hypodensities within the right frontal and parietal lobes are new since prior CT. Otherwise, the appearance of the brain is uncha nged. The ventricular system is unremarkable. The basal cisterns are patent. No extra-axial collections are present. There are no findings to suggest acute dural sinus thrombosis or acute territorial infarct. There are air-fluid levels within the bilateral maxillary sinuses. There is mild right ethmoid sinus mucosal thickening. Numerous lytic calvarial lesions are similar to prior CT. IMPRESSION: 1. No acute intracranial hemorrhage. A few subcortical hypodensities within the right frontal and parietal lobes which are new since prior CT. Subacute to chronic infarcts are favored. Underlying lesions are considered less likely although could be assessed with MRI of the brain with and without contrast. 2. Air-fluid levels within the bilateral maxillary sinuses. This may reflect acute sinusitis. 3. No significant change in numerous lytic calvarial lesions consistent with known history of multiple myeloma. ACT 112: Negative or not required by law. Electronically signed by: Bhargav Steve M.D. 07/30/2024 4:07 PM Brain MRI 07/31/24 07:00 MRI OF THE BRAIN WITHOUT CONTRAST CLINICAL HISTORY: Cerebrovascular accident. Confusion. COMPARISON STUDY: MRI of the brain April 14, 2007. Head CT July 30, 2024. TECHNIQUE: Utilizing a 1.5 Isha magnet and dedicated coil, multiplanar, multiecho imaging of the brain was performed without IV contrast. FINDINGS: There are no foci of restricted diffusion to suggest acute infarct. There are several subcortical hyperintense foci within the right cerebral hemisphere on diffusion-weighted sequence which are also hyperintense on the ADC map. These correspond to the findings on head CT of July 30, 2024. These favor subacute to chronic infarcts. There is no mass effect. Ventricular system is unremarkable. Basal cisterns are patent. There are no extra axial collections. Flow-voids for the major intracranial vessels are present. There is an air-fluid level within the right maxillary sinus. This bilateral maxillary sinus mucosal thickening. Multifocal marrow replacement is present within the skull base and upper cervical spine. Calvarial marrow signal is slightly diminished. IMPRESSION: 1. No acute intracranial findings. 2. Several subcortical foci of signal abnormality within the right cerebral hemisphere which correspond to the findings on head CT of July 30, 2024. The findings favor subacute to chronic infarcts. Follow-up noncontrast head CT in 2 months to ensure expected evolution is recommended. 3. Multifocal marrow replacement consistent with known history of multiple myeloma. ACT 112: Negative or not required by law. Electronically signed by: Bhargav Steve M.D. 07/31/2024 2:05 PM Elbow X-Ray 08/01/24 11:09 XR elbow RT 2V CLINICAL HISTORY: Elbow pain/ inflammation around artifact joint. COMPARISON: Right elbow radiographs May 12, 2024. FINDINGS: Alignment of the right elbow arthroplasty is anatomic. A lucency through the cement adjacent to the humeral component on the initial image may reflect a fracture. There is also subtle lucency within the olecranon. Of note, there is increased lucency adjacent to the humeral component when compared to exam of May 12, 2024. There is also subtle bone loss of the ulna which appear to prior exam. Extensive calcific densities adjacent to the arthroplasty, likely intra-articular, have progressed. IMPRESSION: 1. Status post right total arthroplasty. Increased lucency adjacent to the humeral and ulnar components is suspicious for loosening. This may be due to particle disease. An infectious process could have a similar imaging appearance. 2. Possible nondisplaced fracture through the cement of the distal right humerus. Possible nondisplaced olecranon fracture. No displaced fractures. 3. Increase in calcific densities adjacent to the arthroplasty, likely intra- articular. This may be related to particle disease or developing heterotopic ossification. ACT 112: Negative or not required by law. Electronically signed by: Bhargav Steve M.D. 08/01/2024 3:13 PM Hand X-Ray 08/01/24 18:04 XR hand RT min 3V routine HISTORY: 84 years-old Female right thumb/hand pain acute pain of the right hand and wrist COMPARISON: Wrist radiographs of same day TECHNIQUE: 3 views of the right hand FINDINGS: Chronic ununited ulnar styloid process fracture. 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 Chronic remodeling changes are present without acute fracture, dislocation or osseous erosion. Arterial calcifications are noted. IMPRESSION: Osteoarthritis without acute fracture or dislocation identified. ACT 112: Negative or not required by law. The above report was generated using voice recognition software. It may contain grammatical, syntax or spelling errors. Electronically signed by: Zane Portillo M.D. 08/02/2024 7:13 AM Wrist X-Ray 08/01/24 18:04 XR wrist RT min 3V routine CLINICAL HISTORY: Right wrist pain. COMPARISON: None FINDINGS: No acute fracture within the right wrist is present. A well- corticated ossicle of the ulnar styloid is chronic. There is moderate joint space narrowing and osteophytosis within multiple articulations of the right wrist. There are no erosions. Slight widening of the scapholunate interval. IMPRESSION: 1. No acute fractures within the right wrist. 2. 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 ACT 112: Negative or not required by law. Electronically signed by: Bhargav Steve M.D. 08/02/2024 7:18 AM Diagnostic Findings see above PG Care Time/CCT Total # of Minutes Spent Total Time Spent with Patient: Total time spent is greater than 50% in coordination of care (as documented) at patient's floor/unit and/or counseling patient: I spent 110 minutes overall addressing this case: 15 min in medical data review/discussion with referring provider(s) and/or preparation for the visit 20 min in direct interaction with the patient/exam 45 min in Advance Care Planning/Goals of Care discussions as detailed above in note (must be >16min) 15 min in subsequent review and synthesis of assessment and plan 15 min communicating with other providers regarding the patient's case:primary team, nursing Advanced Care Planning 84269 Advanced Care Planning 30 Min 32886 Advanced Care Planning Additional 30 [place] [address] IN/OBS CONSULT LVL 4,60M (25 - SIGNIFICANT, SEPARATELY IDENTIFIABLE ) Patient Type New Medical Decision Making High Complexity Diagnoses Cancer related pain G89.3 Weakness generalized R53.1 Advanced care planning/counseling discussion Z71.89 Encounter for hospice care discussion Z71.89 Palliative care by specialist Z51.5 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
--- NOTE | 2024-08-02 16:41 | Billing Data ---
Date of Service August 02, 2024 Coding Level of Care Code 54065 SUB INP/OBS CARE
[2024-08-03] MEDS: FUROSEMIDE 20 MG TAB PO SCH (08:02)
--- NOTE | 2024-08-03 11:35 | Hospitalist Progress Note ---
Date of Service August 03, 2024 Assessment & Plan (1) Goals of care, counseling/discussion: Plan: - Acute metabolic encephalopathy now resolved, Patient back to her baseline - Patient wants home with hospice. -However according to family they do not feel comfortable for him had to go back home by herself -Plan is for her to go to a facility with hospice. (2) Acute on chronic diastolic CHF (congestive heart failure): Plan: - Appears compensated Last echo 01/2024: EF 50-55%, severe concentric LVH, bioprosthetic AV, moderate to severe mitral annular calcification Troponin minimally elevated, stable on repeat on admission EKG on admission: Ventricular paced rhythm -Continue Lasix -Monitor input and output, daily weight (3) CVA (cerebral vascular accident): Plan: - Questionable Subacute/old CVA - CThead with small hypodensities favoring subacute to chronic infarct new from prior; not a candidate for thrombolysis - MRI confirmed subacute/chronic infarct of right cerebral hemisphere - Continue Aspirin 81mg - DAPT versus transition to Plavix, patient is with prior hospital admissions for hematochezia/bleeding - Atorvastatin increased to 40mg, lipid panel showed mild hypertriglyceridemia, LDL/HDL WNL - follow up noncontrast head CT 2 months (4) UTI (urinary tract infection): Plan: urine culture preliminary showed E coli No history of resistant cultures Rocephin ordered on admission; continue, urine culture showed susceptibility No signs of systemic infection (5) Fracture, humerus: Plan: Right elbow pain: - 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 - increased calcific densities likely secondary to particle disease vs heterotopic ossification - possibly loosening of arthroplasty due to particle disease vs infectious process, although lucency seen on previous X-ray 05/12 - Xray of hand and wrist 08/01 showed osteoarthritis, no acute fractures - ortho consulted - no evidence of septic joint at this time - ice, limited movement, sling, and thumb spica for wrist pain - follow up outpatient with [place] - discussed pain regimen with palliative - oxy 7.5mg Q3/10 mg Q4 prn - fentanyl patch 12.5 mcg began 08/02 - will reassess pain control with potential d/c 08/03 Plan Chronic stable issues: Multiple myeloma/plasmacytoma/AIN: No acute change in management Complete heart block: S/p pacemaker placement DVT prophylaxis: Lovenox held for prior bleeding, thrombocytopenia. SCDs CODE STATUS: DNR/DNI Diet: Heart healthy Dispo: Patient states she wants home with hospice however family does not feel comfortable letting her go home by herself. Plan is for her to go to a facility with hospice Admission and Anticipated Discharge Date Admission Date: July 30, 2024 Subjective Patient seen and examined, lying comfortably in bed on oxygen through nasal cannula states her pain is under good control. Review of Systems Review of Systems: See HPI Physical Exam Physical Exam: The patient is awake, alert and oriented 3, well developed and well nourished, normocephalic and atraumatic, lying in bed and in no acute distress. HEENT--PERRL, EOMI, mucous membranes and oropharynx mildly dry Neck--supple. No JVD. No bruits. Thyroid normal, trachea midline, no adenopathy. Heart--normal S1 and S2. No murmurs, rubs or gallops. Lungs--clear bilaterally, no respiratory distress, no accessory muscle use. Abdomen--normal bowel sounds and soft. Extremities--no cyanosis or clubbing. No edema. Dermatologic--normal skin turgor, normal color, no abnormal lymph nodes, no rash. Neurologic--cranial nerves II through XII grossly intact. Rheumatologic--normal range of motion. Psychiatric--normal affect. Results & Data Results & Data Vital Signs (Past 12 Hours) Vital Signs Temp Pulse Resp BP Pulse Ox O2 Del Method O2 Flow Rate 08/03/24 08:41 98.8 F 82 18 106/70 95 Nasal Cannula 2 08/03/24 08:07 Nasal Cannula 2 PG Care Time/CCT Total # of Minutes Spent Total Time Spent with Patient: Total time spent is greater than 50% in coordination of care (as documented) at patient's floor/unit and/or counseling patient: Coding Level of Care Code 09746 SUB INP/OBS CARE 2/35MIN Diagnoses Goals of care, counseling/discussion Z71.89 Acute on chronic diastolic CHF (congestive heart failure) I50.33 CVA (cerebral vascular accident) I63.9 UTI (urinary tract infection) N39.0 Fracture, humerus S42.309A Time Spent (min) 35
--- NOTE | 2024-08-04 11:00 | Hospitalist Progress Note ---
Date of Service August 04, 2024 Assessment & Plan (1) Goals of care, counseling/discussion: Plan: - Acute metabolic encephalopathy now resolved, Patient back to her baseline - Patient wants home with hospice. -However according to family they do not feel comfortable for him had to go back home by herself -Plan is for her to go to a facility with hospice. -Social work on board (2) Acute on chronic diastolic CHF (congestive heart failure): Plan: - Appears compensated Last echo 01/2024: EF 50-55%, severe concentric LVH, bioprosthetic AV, moderate to severe mitral annular calcification Troponin minimally elevated, stable on repeat on admission EKG on admission: Ventricular paced rhythm -Continue Lasix -Monitor input and output, daily weight (3) CVA (cerebral vascular accident): Plan: - Questionable Subacute/old CVA - CThead with small hypodensities favoring subacute to chronic infarct new from prior; not a candidate for thrombolysis - MRI confirmed subacute/chronic infarct of right cerebral hemisphere - Continue Aspirin 81mg - Atorvastatin increased to 40mg, lipid panel showed mild hypertriglyceridemia, LDL/HDL WNL (4) UTI (urinary tract infection): Plan: urine culture preliminary showed E coli No history of resistant cultures Rocephin ordered on admission; continue, urine culture showed susceptibility No signs of systemic infection -Transition to PO antibiotics upon d/c (5) Fracture, humerus: Plan: Right elbow pain: - 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 - increased calcific densities likely secondary to particle disease vs heterotopic ossification - possibly loosening of arthroplasty due to particle disease vs infectious process, although lucency seen on previous X-ray 05/12 - Xray of hand and wrist 08/01 showed osteoarthritis, no acute fractures - ortho consulted - no evidence of septic joint at this time - ice, limited movement, sling, and thumb spica for wrist pain - follow up outpatient with [place] - discussed pain regimen with palliative - oxy 7.5mg Q3/10 mg Q4 prn - fentanyl patch 12.5 mcg began 08/02 - will reassess pain control with potential d/c 08/03 Plan Chronic stable issues: Multiple myeloma/plasmacytoma/AIN: No acute change in management Complete heart block: S/p pacemaker placement DVT prophylaxis: Lovenox held for prior bleeding, thrombocytopenia. SCDs CODE STATUS: DNR/DNI Diet: Heart healthy Dispo: Patient states she wants home with hospice however family does not feel comfortable letting her go home by herself. Plan is for her to go to a facility with hospice Admission and Anticipated Discharge Date Admission Date: July 30, 2024 Subjective Patient seen and examined, lying comfortably in bed on oxygen through nasal cannula states her pain is under good control. Review of Systems Review of Systems: See HPI Physical Exam Physical Exam: The patient is awake, alert and oriented 3, well developed and well nourished, normocephalic and atraumatic, lying in bed and in no acute distress. HEENT--PERRL, EOMI, mucous membranes and oropharynx mildly dry Neck--supple. No JVD. No bruits. Thyroid normal, trachea midline, no adenopathy. Heart--normal S1 and S2. No murmurs, rubs or gallops. Lungs--clear bilaterally, no respiratory distress, no accessory muscle use. Abdomen--normal bowel sounds and soft. Extremities--no cyanosis or clubbing. No edema. Dermatologic--normal skin turgor, normal color, no abnormal lymph nodes, no rash. Neurologic--cranial nerves II through XII grossly intact. Rheumatologic--normal range of motion. Psychiatric--normal affect. Results & Data Results & Data Vital Signs (Past 12 Hours) Vital Signs Temp Pulse Pulse Resp BP Pulse Ox O2 Del Method 08/04/24 07:30 Nasal Cannula 08/04/24 07:18 98.1 F 65 16 129/75 97 Nasal Cannula 08/04/24 00:17 87 16 96 O2 Flow Rate 08/04/24 07:30 2 08/04/24 07:18 2 08/04/24 00:17 2 PG Care Time/CCT Total # of Minutes Spent Total Time Spent with Patient: Total time spent is greater than 50% in coordination of care (as documented) at patient's floor/unit and/or counseling patient: Coding Level of Care Code 41330 SUB INP/OBS CARE 2/35MIN Diagnoses Goals of care, counseling/discussion Z71.89 Acute on chronic diastolic CHF (congestive heart failure) I50.33 CVA (cerebral vascular accident) I63.9 UTI (urinary tract infection) N39.0 Fracture, humerus S42.309A Time Spent (min) 35
--- NOTE | 2024-08-05 11:45 | Hospitalist Progress Note ---
Date of Service August 05, 2024 Assessment & Plan (1) Goals of care, counseling/discussion: Plan: - Acute metabolic encephalopathy now resolved, Patient back to her baseline - Patient wants home with hospice. -However according to family they do not feel comfortable for him had to go back home by herself -Plan is for her to go to a facility with hospice. -Social work on board (2) Acute on chronic diastolic CHF (congestive heart failure): Plan: - Appears compensated Last echo 01/2024: EF 50-55%, severe concentric LVH, bioprosthetic AV, moderate to severe mitral annular calcification Troponin minimally elevated, stable on repeat on admission EKG on admission: Ventricular paced rhythm -Continue Lasix -Monitor input and output, daily weight (3) CVA (cerebral vascular accident): Plan: - Questionable Subacute/old CVA - CThead with small hypodensities favoring subacute to chronic infarct new from prior; not a candidate for thrombolysis - MRI confirmed subacute/chronic infarct of right cerebral hemisphere - Continue Aspirin 81mg - Atorvastatin increased to 40mg, lipid panel showed mild hypertriglyceridemia, LDL/HDL WNL (4) UTI (urinary tract infection): Plan: urine culture preliminary showed E coli No history of resistant cultures Rocephin ordered on admission; continue, urine culture showed susceptibility No signs of systemic infection -Transition to PO antibiotics upon d/c (5) Fracture, humerus: Plan: Right elbow pain: - 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 - increased calcific densities likely secondary to particle disease vs heterotopic ossification - possibly loosening of arthroplasty due to particle disease vs infectious process, although lucency seen on previous X-ray 05/12 - Xray of hand and wrist 08/01 showed osteoarthritis, no acute fractures - ortho consulted - no evidence of septic joint at this time - ice, limited movement, sling, and thumb spica for wrist pain - follow up outpatient with [place] - discussed pain regimen with palliative - oxy 7.5mg Q3/10 mg Q4 prn - fentanyl patch 12.5 mcg began 08/02 Plan Chronic stable issues: Multiple myeloma/plasmacytoma/AIN: No acute change in management Complete heart block: S/p pacemaker placement DVT prophylaxis: Lovenox held for prior bleeding, thrombocytopenia. SCDs CODE STATUS: DNR/DNI Diet: Heart healthy Dispo: Patient states she wants home with hospice however family does not feel comfortable letting her go home by herself. Plan is for her to go to a facility with hospice I called her son, to update him Admission and Anticipated Discharge Date Admission Date: July 30, 2024 Subjective Patient seen and examined, lying comfortably in bed on oxygen through nasal cannula states her pain is under good control. Review of Systems Review of Systems: See HPI Physical Exam Physical Exam: The patient is awake, alert and oriented 3, well developed and well nourished, normocephalic and atraumatic, lying in bed and in no acute distress. HEENT--PERRL, EOMI, mucous membranes and oropharynx mildly dry Neck--supple. No JVD. No bruits. Thyroid normal, trachea midline, no adenopathy. Heart--normal S1 and S2. No murmurs, rubs or gallops. Lungs--clear bilaterally, no respiratory distress, no accessory muscle use. Abdomen--normal bowel sounds and soft. Extremities--no cyanosis or clubbing. No edema. Dermatologic--normal skin turgor, normal color, no abnormal lymph nodes, no rash. Neurologic--cranial nerves II through XII grossly intact. Rheumatologic--normal range of motion. Psychiatric--normal affect. Results & Data Results & Data Vital Signs (Past 12 Hours) Vital Signs Temp Pulse Resp BP Pulse Ox O2 Del Method 08/05/24 09:07 Room Air 08/05/24 07:44 82 99/62 L 93 Room Air 08/05/24 07:15 98.6 F 80 17 89/50 L 91 Room Air PG Care Time/CCT Total # of Minutes Spent Total Time Spent with Patient: Total time spent is greater than 50% in coordination of care (as documented) at patient's floor/unit and/or counseling patient: Coding Level of Care Code 24590 SUB INP/OBS CARE 2/35MIN Diagnoses Goals of care, counseling/discussion Z71.89 Acute on chronic diastolic CHF (congestive heart failure) I50.33 CVA (cerebral vascular accident) I63.9 UTI (urinary tract infection) N39.0 Fracture, humerus S42.309A Time Spent (min) 35
[2024-08-06 08:37] LABS: Calcium 8.2 mg/dl (8.6-10.3); Potassium 3.7 mmol/L (3.5-5.1)
[2024-08-06 08:43] LABS: Creatinine Clr Calc Pharmacy 58.8 ml/min; Est GFR (African American) 84.8 ml/min; Est GFR (Non-African American) 73.2 ml/min
[2024-08-06 08:47] LABS: Hematocrit (blood only) 29.5 % (37.0-47.0); Hemoglobin 9.3 g/dl (12.0-16.0); Mean Corpuscular Hgb Conc 31.5 g/dL (32.0-36.0); Mean Corpuscular Volume 85.8 fL (80.0-100.0); Platelet Count 102 K/uL (130-400); Platelet Estimate Decreased (Normal); RDW Coefficient of Variation 17.3 % (11.5-14.5); RDW Standard Deviation 53.9 fL (36.4-46.3); Red Blood Count 3.44 M/uL (4.20-5.40); White Blood Count 3.56 K/ul (4.8-10.8)
--- NOTE | 2024-08-06 12:56 | Hospitalist Progress Note ---
Date of Service August 06, 2024 Assessment & Plan (1) Goals of care, counseling/discussion: Plan: - Acute metabolic encephalopathy now resolved, Patient back to her baseline - Patient wants home with hospice. -However according to family they do not feel comfortable for him had to go back home by herself -Plan is for her to go to a facility with hospice. -Social work on board (2) Acute on chronic diastolic CHF (congestive heart failure): Plan: - Appears compensated Last echo 01/2024: EF 50-55%, severe concentric LVH, bioprosthetic AV, moderate to severe mitral annular calcification Troponin minimally elevated, stable on repeat on admission EKG on admission: Ventricular paced rhythm -Continue Lasix -Monitor input and output, daily weight (3) CVA (cerebral vascular accident): Plan: - Questionable Subacute/old CVA - CThead with small hypodensities favoring subacute to chronic infarct new from prior; not a candidate for thrombolysis - MRI confirmed subacute/chronic infarct of right cerebral hemisphere - Continue Aspirin 81mg - Atorvastatin increased to 40mg, lipid panel showed mild hypertriglyceridemia, LDL/HDL WNL (4) UTI (urinary tract infection): Plan: urine culture preliminary showed E coli No history of resistant cultures Rocephin ordered on admission; continue, urine culture showed susceptibility No signs of systemic infection -Transition to PO antibiotics upon d/c (5) Fracture, humerus: Plan: Right elbow pain: - 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 - increased calcific densities likely secondary to particle disease vs heterotopic ossification - possibly loosening of arthroplasty due to particle disease vs infectious process, although lucency seen on previous X-ray 05/12 - Xray of hand and wrist 08/01 showed osteoarthritis, no acute fractures - ortho consulted - no evidence of septic joint at this time - ice, limited movement, sling, and thumb spica for wrist pain - follow up outpatient with [place] - discussed pain regimen with palliative - oxy 7.5mg Q3/10 mg Q4 prn - fentanyl patch 12.5 mcg began 08/02 Plan Chronic stable issues: Multiple myeloma/plasmacytoma/AIN: No acute change in management Complete heart block: S/p pacemaker placement DVT prophylaxis: Lovenox held for prior bleeding, thrombocytopenia. SCDs CODE STATUS: DNR/DNI Diet: Heart healthy Dispo: Patient states she wants home with hospice however family does not feel comfortable letting her go home by herself. Plan is for her to go to a facility with hospice I called her son, to update him Admission and Anticipated Discharge Date Admission Date: July 30, 2024 Subjective Patient seen and examined, Sitting up in the chair, tolerating diet, states her pain is under good control Review of Systems Review of Systems: See HPI Physical Exam Physical Exam: The patient is awake, alert and oriented 3, well developed and well nourished, normocephalic and atraumatic, lying in bed and in no acute distress. HEENT--PERRL, EOMI, mucous membranes and oropharynx mildly dry Neck--supple. No JVD. No bruits. Thyroid normal, trachea midline, no adenopathy. Heart--normal S1 and S2. No murmurs, rubs or gallops. Lungs--clear bilaterally, no respiratory distress, no accessory muscle use. Abdomen--normal bowel sounds and soft. Extremities--no cyanosis or clubbing. No edema. Dermatologic--normal skin turgor, normal color, no abnormal lymph nodes, no rash. Neurologic--cranial nerves II through XII grossly intact. Rheumatologic--normal range of motion. Psychiatric--normal affect. Results & Data Results & Data Vital Signs (Past 12 Hours) Vital Signs Temp Pulse Resp BP Pulse Ox O2 Del Method 08/06/24 07:34 98.2 F 79 16 114/68 92 Room Air PG Care Time/CCT Total # of Minutes Spent Total Time Spent with Patient: Total time spent is greater than 50% in coordination of care (as documented) at patient's floor/unit and/or counseling patient: Coding Level of Care Code 00559 SUB INP/OBS CARE 2/35MIN Diagnoses Goals of care, counseling/discussion Z71.89 Acute on chronic diastolic CHF (congestive heart failure) I50.33 CVA (cerebral vascular accident) I63.9 UTI (urinary tract infection) N39.0 Fracture, humerus S42.309A Time Spent (min) 35
--- NOTE | 2024-08-07 12:26 | Hospitalist Progress Note ---
Date of Service August 07, 2024 Assessment & Plan (1) Goals of care, counseling/discussion: Plan: - Acute metabolic encephalopathy now resolved, Patient back to her baseline - Patient wants home with hospice. -However according to family they do not feel comfortable for him had to go back home by herself -Plan is for her to go to a facility with hospice, hopefully today -Social work on board (2) Acute on chronic diastolic CHF (congestive heart failure): Plan: - Appears compensated Last echo 01/2024: EF 50-55%, severe concentric LVH, bioprosthetic AV, moderate to severe mitral annular calcification Troponin minimally elevated, stable on repeat on admission EKG on admission: Ventricular paced rhythm -Continue Lasix -Monitor input and output, daily weight (3) CVA (cerebral vascular accident): Plan: - Questionable Subacute/old CVA - CThead with small hypodensities favoring subacute to chronic infarct new from prior; not a candidate for thrombolysis - MRI confirmed subacute/chronic infarct of right cerebral hemisphere - Continue Aspirin 81mg - Atorvastatin increased to 40mg, lipid panel showed mild hypertriglyceridemia, LDL/HDL WNL (4) UTI (urinary tract infection): Plan: urine culture preliminary showed E coli No history of resistant cultures Rocephin ordered on admission; continue, urine culture showed susceptibility No signs of systemic infection -Transition to PO antibiotics upon d/c (5) Fracture, humerus: Plan: Right elbow pain: - 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 - increased calcific densities likely secondary to particle disease vs heterotopic ossification - possibly loosening of arthroplasty due to particle disease vs infectious process, although lucency seen on previous X-ray 05/12 - Xray of hand and wrist 08/01 showed osteoarthritis, no acute fractures - ortho consulted - no evidence of septic joint at this time - ice, limited movement, sling, and thumb spica for wrist pain - follow up outpatient with [place] - discussed pain regimen with palliative - oxy 7.5mg Q3/10 mg Q4 prn - fentanyl patch 12.5 mcg began 08/02 Plan Chronic stable issues: Multiple myeloma/plasmacytoma/AIN: No acute change in management Complete heart block: S/p pacemaker placement DVT prophylaxis: Lovenox held for prior bleeding, thrombocytopenia. SCDs CODE STATUS: DNR/DNI Diet: Heart healthy Dispo: Patient states she wants home with hospice however family does not feel comfortable letting her go home by herself. Plan is for her to go to a facility with hospice hopefully today I called her son, to update him Admission and Anticipated Discharge Date Admission Date: July 30, 2024 Subjective Patient seen and examined, Sitting up in the chair, tolerating diet, states her pain is under good control Review of Systems Review of Systems: See HPI Physical Exam Physical Exam: The patient is awake, alert and oriented 3, well developed and well nourished, normocephalic and atraumatic, lying in bed and in no acute distress. HEENT--PERRL, EOMI, mucous membranes and oropharynx mildly dry Neck--supple. No JVD. No bruits. Thyroid normal, trachea midline, no adenopathy. Heart--normal S1 and S2. No murmurs, rubs or gallops. Lungs--clear bilaterally, no respiratory distress, no accessory muscle use. Abdomen--normal bowel sounds and soft. Extremities--no cyanosis or clubbing. No edema. Dermatologic--normal skin turgor, normal color, no abnormal lymph nodes, no rash. Neurologic--cranial nerves II through XII grossly intact. Rheumatologic--normal range of motion. Psychiatric--normal affect. Results & Data Results & Data Vital Signs (Past 12 Hours) Vital Signs Temp Pulse Pulse Resp BP Pulse Ox O2 Del Method 08/07/24 08:12 Room Air 08/07/24 07:17 98.4 F 69 16 123/73 93 Room Air 08/07/24 04:05 80 29 H 98 O2 Flow Rate 08/07/24 08:12 08/07/24 07:17 08/07/24 04:05 2 PG Care Time/CCT Total # of Minutes Spent Total Time Spent with Patient: Total time spent is greater than 50% in coordination of care (as documented) at patient's floor/unit and/or counseling patient: Coding Level of Care Code 07487 SUB INP/OBS CARE 2/35MIN Diagnoses Goals of care, counseling/discussion Z71.89 Acute on chronic diastolic CHF (congestive heart failure) I50.33 CVA (cerebral vascular accident) I63.9 UTI (urinary tract infection) N39.0 Fracture, humerus S42.309A Time Spent (min) 35
--- NOTE | 2024-08-08 11:45 | Hospitalist Progress Note ---
Date of Service August 08, 2024 Assessment & Plan (1) Goals of care, counseling/discussion: Plan: - Acute metabolic encephalopathy now resolved, Patient back to her baseline - Patient wants home with hospice. -However according to family they do not feel comfortable for him had to go back home by herself -Plan is for her to go to a facility with hospice, hopefully tomorrow at the [facility] -Social work on board (2) Acute on chronic diastolic CHF (congestive heart failure): Plan: - Appears compensated Last echo 01/2024: EF 50-55%, severe concentric LVH, bioprosthetic AV, moderate to severe mitral annular calcification Troponin minimally elevated, stable on repeat on admission EKG on admission: Ventricular paced rhythm -Continue Lasix -Monitor input and output, daily weight (3) CVA (cerebral vascular accident): Plan: - Questionable Subacute/old CVA - CThead with small hypodensities favoring subacute to chronic infarct new from prior; not a candidate for thrombolysis - MRI confirmed subacute/chronic infarct of right cerebral hemisphere - Continue Aspirin 81mg - Atorvastatin increased to 40mg, lipid panel showed mild hypertriglyceridemia, LDL/HDL WNL (4) UTI (urinary tract infection): Plan: urine culture preliminary showed E coli No history of resistant cultures Rocephin ordered on admission; continue, urine culture showed susceptibility No signs of systemic infection -Transition to PO antibiotics upon d/c (5) Fracture, humerus: Plan: Right elbow pain: - 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 - increased calcific densities likely secondary to particle disease vs heterotopic ossification - possibly loosening of arthroplasty due to particle disease vs infectious process, although lucency seen on previous X-ray 05/12 - Xray of hand and wrist 08/01 showed osteoarthritis, no acute fractures - ortho consulted - no evidence of septic joint at this time - ice, limited movement, sling, and thumb spica for wrist pain - follow up outpatient with [place] - discussed pain regimen with palliative - oxy 7.5mg Q3/10 mg Q4 prn - fentanyl patch 12.5 mcg began 08/02 Plan Chronic stable issues: Multiple myeloma/plasmacytoma/AIN: No acute change in management Complete heart block: S/p pacemaker placement DVT prophylaxis: Lovenox held for prior bleeding, thrombocytopenia. SCDs CODE STATUS: DNR/DNI Diet: Heart healthy Dispo: Patient has been accepted at the heart side, will discharge tomorrow with hospice Admission and Anticipated Discharge Date Admission Date: July 30, 2024 Subjective Patient seen and examined, Sitting up in the chair, tolerating diet, states her pain is under good control, Has been accepted at the heart side Review of Systems Review of Systems: See HPI Physical Exam Physical Exam: The patient is awake, alert and oriented 3, well developed and well nourished, normocephalic and atraumatic, lying in bed and in no acute distress. HEENT--PERRL, EOMI, mucous membranes and oropharynx mildly dry Neck--supple. No JVD. No bruits. Thyroid normal, trachea midline, no adenopathy. Heart--normal S1 and S2. No murmurs, rubs or gallops. Lungs--clear bilaterally, no respiratory distress, no accessory muscle use. Abdomen--normal bowel sounds and soft. Extremities--no cyanosis or clubbing. No edema. Dermatologic--normal skin turgor, normal color, no abnormal lymph nodes, no rash. Neurologic--cranial nerves II through XII grossly intact. Rheumatologic--normal range of motion. Psychiatric--normal affect. Results & Data Results & Data Vital Signs (Past 12 Hours) Vital Signs Temp Pulse Resp BP Pulse Ox O2 Del Method O2 Flow Rate 08/08/24 07:58 98.2 F 74 16 103/63 95 Room Air 08/08/24 02:10 26 H 95 2 08/08/24 01:45 18 PG Care Time/CCT Total # of Minutes Spent Total Time Spent with Patient: Total time spent is greater than 50% in coordination of care (as documented) at patient's floor/unit and/or counseling patient: Coding Level of Care Code 51922 SUB INP/OBS CARE 2/35MIN Diagnoses Goals of care, counseling/discussion Z71.89 Acute on chronic diastolic CHF (congestive heart failure) I50.33 CVA (cerebral vascular accident) I63.9 UTI (urinary tract infection) N39.0 Fracture, humerus S42.309A Time Spent (min) 35
[2024-08-08 20:11] VITALS: TEMP 98.2
[2024-08-08 23:25] VITALS: RESP 16
[2024-08-09 07:14] VITALS: BP 120/69; O2SAT 93
--- NOTE | 2024-08-09 11:00 | Discharge Summary ---
Date of Service August 09, 2024 Admission HPI Per Admitting Provider Chantel is an 84-year-old female with a past medical history of heart failure with preserved ejection fraction, lower GI bleeding, EIN who was last seen 07/01/2024 for hematochezia and subsequently discharged following warfarin reversal and was euvolemic at that time who presents to the ER with confusion. Patient was dyspneic and hypoxic per EMS. On ER evaluation she is with increased oxygen requirements requiring 6 L to maintain saturation. VBG 7.3 consistent with mild respiratory acidosis. Creatinine is at baseline. Troponin is minimally elevated at 21.0 repeat equivocal at 22.6, BNP elevated 178, UA is with 4+ bacteria, leukocyte esterase, nitrates and no contamination, quad screen is negative, and chest x-ray is with cardiomegaly and interstitial pulmonary edema and pleural effusions. CThead is with no acute hemorrhage, small hypodensities in the frontal/parietal lobes right favoring subacute to chronic infarcts; air-fluid levels possibly reflecting acute sinusitis is noted; numerous lytic calvarial lesions consistent with multiple myeloma are present. Patient seen at the bedside. Nondistressed. Limited history available from patient due to confusion. Patient denies fever, chills, sweats, chest pain, chest pressure, lightheadedness, dizziness, abdominal pain. She is in no distress, but she reports she does not know where she is or why she is here but is happy to be here. - Collateral from daughter: Was goign to have a cardiology followup appointment regarding a pacemaker checkin. She is established with [facility]. Was fatigued, but normal but not dis-tristressed or confused. Then when [facility] arrived [facility] arrived and pt was completely disoriented. Does have a history of sleep apnea and had her machine twiste dup last night and was confused due to her sleep apnea, but this was unusual for her and was normal this morning. Typically 'has her wits about her' with no issues with confusion. On homeon oxygen at night and as needed. Confirms DNR/DNI. NO ventilation under any circumstances, and no escalation of care or invasive procedures. Biggest goals are comfort and pain control, although maria de jesus does well and does want admission for reversable conditions that affect her quality of life Medical History: Reviewed Medications: Reviewed Surgical History: Reviewed Family history: Reviewed Allergies: Reviewed Social History: Code Status: Admission Exam (Per Admitting) Constitutional The patient is awake, alert and oriented 3, well developed and well nourished, normocephalic and atraumatic, lying in bed and in no acute distress. HEENT--PERRL, EOMI, mucous membranes and oropharynx mildly dry Neck--supple. No JVD. No bruits. Thyroid normal, trachea midline, no adenopathy. Heart--normal S1 and S2. No murmurs, rubs or gallops. Lungs--clear bilaterally, no respiratory distress, no accessory muscle use. Abdomen--normal bowel sounds and soft. Extremities--no cyanosis or clubbing. No edema. right arm in sling Dermatologic--normal skin turgor, normal color, no abnormal lymph nodes, no rash. Neurologic--cranial nerves II through XII grossly intact. Rheumatologic--normal range of motion. Psychiatric--normal affect. Discharge Data Consultations 07/30/24 16:38 ED Decision to Admit Stat 08/01/24 13:10 Consult Palliative Care Routine 08/01/24 16:17 Consult Orthopedic Surgery Routine Hospital Course (1) Goals of care, counseling/discussion: - Acute metabolic encephalopathy now resolved, Patient back to her baseline - Patient wants home with hospice. -However according to family they do not feel comfortable for him had to go back home by herself -Plan is for her to go to a facility with hospice, hopefully tomorrow at the [facility] -Social work on board (2) Acute on chronic diastolic CHF (congestive heart failure): - Appears compensated Last echo 01/2024: EF 50-55%, severe concentric LVH, bioprosthetic AV, moderate to severe mitral annular calcification Troponin minimally elevated, stable on repeat on admission EKG on admission: Ventricular paced rhythm -Continue Lasix -Monitor input and output, daily weight (3) CVA (cerebral vascular accident): - Questionable Subacute/old CVA - CThead with small hypodensities favoring subacute to chronic infarct new from prior; not a candidate for thrombolysis - MRI confirmed subacute/chronic infarct of right cerebral hemisphere - Continue Aspirin 81mg - Atorvastatin increased to 40mg, lipid panel showed mild hypertriglyceridemia, LDL/HDL WNL (4) UTI (urinary tract infection): urine culture preliminary showed E coli Completed a course of IV antibiotics (5) Fracture, humerus: Right elbow pain: - 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 - increased calcific densities likely secondary to particle disease vs heterotopic ossification - possibly loosening of arthroplasty due to particle disease vs infectious process, although lucency seen on previous X-ray 05/12 - Xray of hand and wrist 08/01 showed osteoarthritis, no acute fractures - ortho consulted - no evidence of septic joint at this time - ice, limited movement, sling, and thumb spica for wrist pain - follow up outpatient with [place] - discussed pain regimen with palliative - oxy 7.5mg Q3/10 mg Q4 prn - fentanyl patch 12.5 mcg began 08/02 Plan Chronic stable issues: Multiple myeloma/plasmacytoma/AIN: No acute change in management Complete heart block: S/p pacemaker placement DVT prophylaxis: Lovenox held for prior bleeding, thrombocytopenia. SCDs CODE STATUS: DNR/DNI Diet: Heart healthy Dispo: Patient has been accepted at the heart side, will discharge today with hospice Coding Level of Care Code 12131 INP/OBS DISCH >30 MIN Diagnoses Goals of care, counseling/discussion Z71.89 Acute on chronic diastolic CHF (congestive heart failure) I50.33 CVA (cerebral vascular accident) I63.9 UTI (urinary tract infection) N39.0 Fracture, humerus S42.309A Time Spent (min) 35
[2024-08-09 11:11] VITALS: PULSE 77
== END 2024-08-09 13:35 | DRG 291 ==
LOC: ED 13:27 → SUATTDRO 17:10 → 2S 17:10 → 3N 08-02 14:57